=== PATIENT | female | born 1960 | race Caucasian/White ===

== ENCOUNTER 2017-11-16 14:23 | Emergency (ER) | payer BC ==
--- OUTSIDE RECORDS SUMMARY | 2017-11-16 14:25 | XMS REPORT | Clinical Summary ---
:[address] [facility] Address [address] [place] [address] Phone Care Team Providers Name Role Phone Unavailable Primary Care Provider Unavailable Allergies Active Allergy Reactions Severity Noted Date Comments Fluconazole Itching, Rash High 03/04/2017 Not as bad with intravenous but worse with oral per her pt MARLONA Kiara Harmony [phone] Diphenhydramine Hcl Other (See Comments) 03/02/2017 Hallucinations. Meperidine Other (See Comments) 03/04/2017 Pt becomes aggressive Morphine 12/29/2015 Aggressiveness Severe vomiting Tramadol Other (See Comments) 01/16/2017 Paranoia; nightmares Current Medications Prescription Sig. Disp. Refills Start End Date Status Date metaxalone Take 800 mg by Active (SKELAXIN) 800 MG mouth every 6 tablet (six) hours as needed for Muscle spasms. L. ACIDOPHILUS/DIG Take 2 tablets by Active ENZ CMB 5 mouth daily. (PROBIOTIC-DIGESTIV E ENZYMES ORAL) VALERIAN ORAL Take 470 mg by Active mouth as needed . Missing or every 1 (one) Active Non-Formulary hour Kidney Chi Medication otc vitamin . OREGANO OIL ORAL Take by mouth Active daily. KELP ORAL Take by mouth Active daily. GRAPEFRUIT FORMULA Take by mouth Active ORAL daily. COQ10, UBIQUINOL, Take by mouth Active ORAL daily. carica papaya Take by mouth as Active (PAPAYA ENZYME) Tab needed. ENZYMES,DIGESTIVE Take by mouth Active (DIGESTIVE ENZYMES daily. ORAL) vitamin E 400 UNIT Take 400 Units by Active capsule mouth daily. CALCIUM/MAGNESIUM/V Take by mouth Active IT B COMP daily. (CALCIUM-MAGNESIUM- B COMPLEX ORAL) GARLIC ORAL Take by mouth Active daily. oxybutynin Take 1 tablet (5 90 tablet 3 06/15/20 Active (DITROPAN) 5 MG mg total) by 7 18 tablet mouth every 8 (eight) hours. ALPRAZolam (XANAX) Take 0.5 mg by 01/17/20 Discontinued 0.5 MG tablet mouth every night 17 as needed for Anxiety. Missing or LISINOPRIL ONCE 01/17/20 Discontinued Non-Formulary DAILY PATIENT 17 Medication DOES NOT KNOW DOSAGE. . metFORMIN Take 500 mg by 06/09/20 Discontinued (GLUCOPHAGE) 500 MG mouth 2 (two) 17 tablet times daily with breakfast and dinner. Missing or GEMFIBROZIL TWICE 01/17/20 Discontinued Non-Formulary DAILY . 17 Medication lisinopril Take 20 mg by 06/09/20 Discontinued (PRINIVIL,ZESTRIL) mouth daily. 17 20 MG tablet ICOSAPENT ETHYL Take 500 mg by 03/10/20 Discontinued (VASCEPA ORAL) mouth 2 (two) 17 times daily Takes 4 caps . diazePAM (VALIUM) 5 Take 5 mg by 06/09/20 Discontinued MG tablet mouth 2 (two) 17 times daily. ciprofloxacin HCl Take 500 mg by 03/10/20 Discontinued (CIPRO) 500 MG mouth 2 (two) 17 tablet times daily. acetaminophen-codei Take 1 tablet by 06/09/20 Discontinued ne (TYLENOL #3) mouth every 4 17 300-30 mg per (four) hours as tablet needed for Pain. ciprofloxacin HCl Take 1 tablet 10 tablet 0 01/31/20 (CIPRO) 500 MG (500 mg total) by 7 17 tablet mouth 2 (two) times daily for 5 days. acetaminophen-codei Take 1 tablet by 30 tablet 0 02/05/20 ne (TYLENOL #4) mouth every 4 7 17 300-60 mg per (four) hours as tablet needed for Pain for up to 10 days. Max Daily Amount: 6 tablets docusate sodium Take 1 capsule 20 capsule 0 02/05/20 (COLACE) 100 MG (100 mg total) by 7 17 capsule mouth 2 (two) times daily as needed for up to 10 days. fluconazole Take 2 tablets 28 tablet 0 02/16/20 (DIFLUCAN) 200 MG (400 mg total) by 7 17 tablet mouth daily for 14 days. amLODIPine Take 1 tablet (10 30 tablet 11 03/10/20 Discontinued (NORVASC) 10 MG mg total) by 7 17 tablet mouth daily. HYDROcodone-acetami Take 1 tablet by 30 tablet 0 03/20/20 nophen (NORCO mouth every 6 7 17 10-325) 10-325 mg (six) hours as per tablet needed for up to 10 days. Max Daily Amount: 4 tablets hydrOXYzine Take 1 tablet (25 30 tablet 0 03/10/20 Discontinued (ATARAX) 25 MG mg total) by 7 17 tablet mouth 3 (three) times daily as needed for Itching for up to 10 days. piperacillin-tazoba Inject 3.375 g 0 03/10/20 Discontinued ctam (ZOSYN) MBP intravenously 7 17 3.375 g in 100 mL every 6 (six) NS hours for 4 days. piperacillin-tazoba Inject 3.375 g 0 03/17/20 ctam (ZOSYN) MBP intravenously 7 17 3.375 g in 100 mL every 6 (six) NS hours for 7 days. phenazopyridine Take 1 tablet 10 tablet 0 03/10/20 Discontinued (PYRIDIUM) 200 MG (200 mg total) by 17 tablet mouth 2 (two) times daily for 5 days. amLODIPine Take 1 tablet (10 30 tablet 11 06/09/20 Discontinued (NORVASC) 10 MG mg total) by 7 17 tablet mouth daily. hydrOXYzine Take 1 tablet (25 30 tablet 0 03/20/20 (ATARAX) 25 MG mg total) by 7 17 tablet mouth 3 (three) times daily as needed for Itching for up to 10 days. phenazopyridine Take 1 tablet 10 tablet 0 03/15/20 (PYRIDIUM) 200 MG (200 mg total) by 7 17 tablet mouth 2 (two) times daily for 5 days. VITAMIN E ACETATE Take by mouth 06/09/20 Discontinued ORAL daily. 17 docusate sodium Take 1 capsule 20 capsule 0 06/26/20 Discontinued (COLACE) 100 MG (100 mg total) by 7 17 capsule mouth 2 (two) times daily for 10 days. acetaminophen-codei Take 1 tablet by 30 tablet 0 06/26/20 Discontinued ne (TYLENOL #3) mouth every 4 7 17 300-30 mg per (four) hours as tablet needed for up to 10 days. Max Daily Amount: 6 tablets docusate sodium Take 1 capsule 60 capsule 0 07/26/20 (COLACE) 100 MG (100 mg total) by 7 17 capsule mouth 2 (two) times daily for 30 days. acetaminophen-codei Take 1 tablet by 20 tablet 0 07/03/20 ne (TYLENOL #3) mouth every 4 7 17 300-30 mg per (four) hours as tablet needed for up to 7 days. Max Daily Amount: 6 tablets fluconazole Take 1 tablet 14 tablet 0 07/11/20 (DIFLUCAN) 200 MG (200 mg total) by 7 17 tablet mouth daily for 14 days. hydrOXYzine Take 1 tablet (25 30 tablet 0 07/10/20 (ATARAX) 25 MG mg total) by 7 17 tablet mouth 3 (three) times daily as needed for Itching or Anxiety for up to 14 days. 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/04/2017 Hypertension, essential 03/03/2017 Controlled type 2 diabetes mellitus without complication, without 03/03/2017 long-term current use of insulin ([facility]) Slow transit constipation 03/03/2017 Occluded PICC line, initial encounter ([facility]) 03/03/2017 Pyelonephritis 03/02/2017 Acute postoperative respiratory insufficiency 01/24/2017 UPJ (ureteropelvic junction) obstruction 01/23/2017 Flank pain 01/28/2016 Hydronephrosis, left 12/29/2015 UPJ obstruction, acquired 12/29/2015 Pelvic mass 12/29/2015 Morbid obesity (HCC) 12/29/2015 Fatty liver 12/29/2015 Tobacco use 12/29/2015 Encounters Date Type Specialty Care Team Description 06/17/[address] [facility] Internal Leland Shakir Complicated UTI - Encounter Medicine MD Judah (urinary tract 06/26/2017 Jag Ritchie infection) (Primary MD Chava Dx);Right flank Blanquita, Dustin pain;S/P urological MD Bar surgery;Flank pain;Constipation, unspecified constipation type;Morbid obesity ([facility]);Fever, unspecified fever cause;Gram-positive bacteremia;Beronica infection 06/13/[address] [facility] Internal Jag Ritchie - Encounter Medicine MD Chava 06/15/2017 06/13/2017 Procedure Pass 06/13/2017 Surgery Jag Ritchie ROBOTIC MD Chava LAPAROSCOPY,PYELOPL ASTY 06/09/2017 Hospital Pre-Admission Testing Encounter 06/09/2017 Orders Only Pre-Admission Testing Catherine Bean 05/09/2017 Procedure Pass 05/08/2017 Anesthesia Event Mirian Cobb MD 05/02/2017 [facility] Gastroenterology Susan Ivory Encounter MD Melany 05/02/2017 Procedure Pass Gastroenterology 05/02/2017 Surgery Gastroenterology Susan Ivory COLONOSCOPY,POLYPEC MD Melany TON 04/28/2017 Orders Only Pre-Admission Testing Catherine Bean 03/10/2017 Procedure Pass 03/10/2017 Surgery Jag Ritchie CYSTOSCOPY,RETROGRA MD Chava KAREEM 03/09/2017 Anesthesia Event Ramirez Mendoza MD 03/08/2017 Procedure Pass Gastroenterology 03/07/2017 Anesthesia Event Gastroenterology Mirian Cobb MD 03/02/[address] [facility] Internal Zindani, Pyelonephritis;Dive - Encounter Medicine MD Eula rticulitis of large 03/10/2017 Sandip, intestine without Maria Luz Pak, perforation or MD abscess without Darby, Zoraida-Mine, bleeding;Controlled MD type 2 diabetes Leslie Lubin MD mellitus without complication, without long-term current use of insulin ([facility]);Hydronephrosi s, left;Hypertension, essential;Occluded PICC line, initial encounter ([facility]);Slow transit constipation;Coloni c fistula;Morbid obesity, unspecified obesity type ([facility]);Candiduria;Co litis 02/01/2017 Emergency Emergency Medicine Andre Kat Flank pain (Primary MD José Antonio Dx);Candidal UTI (urinary tract infection) 01/23/2017 Hospital [facility] Internal Jag Ritchie Acute pulmonary - Encounter Medicine MD Chava insufficiency 01/25/2017 following nonthoracic surgery (HCC);Leukocytosis, unspecified type 01/23/2017 Anesthesia Event Homar Paulina MonroeSOFIA 01/23/2017 Procedure Pass 01/23/2017 Surgery Jag Ritchie CYSTOSCOPY,INSERTIO MD Chava N URETERAL STENTS 01/16/2017 Hospital Jag Ritchie MD 01/16/2017 [facility] Cardiology Jag Ritchie MD 01/16/2017 Hospital Pre-Admission Testing Jag Ritchie Fatty liver Encounter MD Chava 01/16/2017 Outside Orders Jag Ritchie MD 01/16/2017 Orders Only General Internal Medicine 12/22/2016 Orders Only Pre-Admission Testing Catherine Bean 12/22/2016 Orders Only Pre-Admission Testing Catherine Bean after 11/15/2016 Family History Medical History Relation Name Comments Heart disease Brother Cancer Maternal Grandfather Heart disease Maternal Uncle Heart disease Mother Relation Name Status Comments Brother Maternal Grandfather Maternal Uncle Mother Social History Tobacco Use Types Packs/Day Years Used Date Current Every Day Smoker 1 40 Smokeless Tobacco: Never Used Tobacco Cessation: Ready to Quit: Yes; Counseling Given: Yes Alcohol Use Drinks/Week oz/Week Comments No Sex Assigned at Date Recorded Not on file Last Filed Vital Signs Vital Sign Reading Time Taken Blood Pressure 168/81 06/26/2017 12:42 PM GETTER OPERATOR Pulse 72 06/26/2017 12:42 PM GETTER OPERATOR Temperature 36.2 C (97.1 F) 06/26/2017 12:42 PM GETTER OPERATOR Respiratory Rate 18 06/26/2017 12:42 PM GETTER OPERATOR Oxygen Saturation 96% 06/26/2017 12:42 PM GETTER OPERATOR Inhaled Oxygen Concentration - - Weight 121.1 kg (267 lb) 06/17/2017 6:57 PM CDT Height 170.2 cm (5' 7") 06/17/2017 11:00 PM CDT Body Mass Index 41.82 06/17/2017 6:57 PM CDT Plan of Treatment Not on file Implants Implanted Type Area Client Account Assistant Device Expiration Model / Identifier Date Serial / Lot Set Stent Injection 6x28cm 185-615 - [id number] Stents-Pe Left: BOSTON [id number] / Implanted: Qty: 1 on 12/31/2015 by Jag Ritchie MD ripheral [employer] :ONCOLOGY / [id number] Stent Uret Cntour Inj [id number] - [id number] Uro Stent Left: BOSTON 11/24/2017 [id number] / Implanted: Qty: 1 on 09/06/2016 by Jag Ritchie MD [employer]:UROLOGY /GYNE / COLOGY [id number] Stent Uret Cntour Inj [id number] - [id number] Uro Stent Left: BOSTON 06/13/2018 [id number] / Implanted: Qty: 1 on 01/23/2017 by Jag Ritchie MD Ureter SCI:UROLOGY /GYNE / COLOGY [id number] Stent Uret Cntour Inj [id number] - [id number] Uro Stent Left: BOSTON 10/23/2017 [id number] / Implanted: Qty: 1 on 03/10/2017 by Jag Ritchie MD Ureter SCI:UROLOGY /GYNE / COLOGY [id number] Set Stent Injection 6x28cm [id number] - [id number] Uro Stent Right: BOSTON [id number] / Implanted: Qty: 1 on 06/13/2017 by Jag Ritchie MD [employer]: ONCOLOGY / [id number] Procedures Procedure Name Priority Date/Time Associated Diagnosis Comments PROCEDURE W/ DAVINCI 06/13/2017 12:00 PM Other ureteric CDT obstruction Special Needs (REQ 12) CYSTOSCOPY,INSERTION URETERAL 06/13/2017 12:00 PM CDT Other ureteric STENTS obstruction Special Needs (REQ 12) ROBOTIC LAPAROSCOPY,PYELOPLASTY 06/13/2017 12:00 PM CDT Other ureteric obstruction Special Needs (REQ 12) COLONOSCOPY,POLYPECTOMY 05/02/2017 10:30 AM Diverticulitis large CDT intestine w/o perforation or abscess w/o bleeding CYSTOSCOPY,INSERTION URETERAL 03/10/2017 11:30 AM Ureteropelvic junction STENTS CDT obstruction CYSTOSCOPY,URETEROSCOPY 03/10/2017 11:30 AM Ureteropelvic junction CDT obstruction CYSTOSCOPY,RETROGRADES 03/10/2017 11:30 AM Ureteropelvic junction CDT obstruction PROCEDURE W/ DAVINCI 01/23/2017 1:00 PM UPJ (ureteropelvic CDT junction) obstruction LAPAROSCOPY,PYELOPLASTY 01/23/2017 1:00 PM UPJ (ureteropelvic CDT junction) obstruction CYSTOSCOPY,INSERTION URETERAL 01/23/2017 1:00 PM UPJ (ureteropelvic STENTS CDT junction) obstruction after 11/15/2016 Results POC-Glucose meter (06/26/2017 1:06 PM)Only the most recent of77 resultswithin the time period is included. Component Value Ref Range POC-Glucose Meter 196 (H)Comment: TESTED AT [address] 70 - 110 mg/[place] [id number] Specimen Performing Laboratory Blood [address] [address] CBC with platelet count + automated diff (06/26/2017 4:45 AM)Only the most recent of21 resultswithin the time period is included. Component Value Ref Range WBC 12.9 (H) 3.5 - 10.5 K/L RBC 3.78 (L) 3.93 - 5.22 M/L Hemoglobin 10.6 (L) 11.2 - 15.7 GM/DL Hematocrit 32.7 (L) 34.1 - 44.9 % MCV 86.5 79.4 - 94.8 fL MCH 28.0 25.6 - 32.2 pg MCHC 32.4 32.2 - 35.5 GM/DL RDW 14.8 (H) 11.7 - 14.4 % Platelets 348 150 - 450 K/CU MM MPV 9.1 (L) 9.4 - 12.3 fL nRBC 0 0 - 0 /100 WBC % Neutros 57 % % Lymphs 19 % % Monos 13 % % Eos 4 % % Baso 1 % # Neutros 7.34 (H) 1.56 - 6.13 K/L # Lymphs 2.48 1.18 - 3.74 K/L # Monos 1.68 (H) 0.24 - 0.36 K/L # Eos 0.56 (H) 0.04 - 0.36 K/L # Baso 0.08 0.01 - 0.08 K/L Immature Granulocytes-Relative 6 (H) 0 - 1 % Specimen Performing Laboratory Blood [address] [address] CBC with platelet count + automated diff (06/26/2017 4:45 AM)Only the most recent of21 resultswithin the time period is included. Specimen Performing Laboratory Blood Narrative The following orders were created for panel order CBC with platelet count + automated diff. Procedure Abnormality Status --------- ------ CBC with platelet count ...[[id number]]AbnormalFinal result Please view results for these tests on the individual orders. Phosphorus (06/26/2017 4:45 AM)Only the most recent of12 resultswithin the time period is included. Component Value Ref Range Phosphorus 3.3 2.3 - 4.7 mg/dL Specimen Performing Laboratory Blood [address] [address] Magnesium (06/26/2017 4:45 AM)Only the most recent of12 resultswithin the time period is included. Component Value Ref Range Magnesium 1.4 (L) 1.6 - 2.6 mg/dL Specimen Performing Laboratory Blood [address] [address] Basic Metabolic Panel (06/26/2017 4:45 AM)Only the most recent of24 resultswithin the time period is included. Component Value Ref Range Sodium 138 136 - 145 meq/L Potassium 3.6 3.5 - 5.1 meq/L Chloride 105 98 - 107 meq/L CO2 23 22 - 29 meq/L BUN 17 7 - 21 mg/dL Creatinine 1.55 (H) 0.57 - 1.25 mg/dL Glucose 158 (H) 70 - 105 mg/dL Calcium 8.5 8.4 - 10.2 mg/dL EGFR 35Comment: ESTIMATED GFR IS NOT ACCURATE mL/min/1.73 sq m CREATININE CLEARANCE IN PREDICTING GLOMERULAR FILTRATION RATE. ESTIMATED GFR IS NOT APPLICABLE FOR DIALYSIS PATIENTS. Specimen Performing Laboratory Blood [address] [address] Manual Differential (06/25/2017 5:43 AM) Component Value Ref Range % Neutros (manual) 60 % % Lymphs (manual) 21 % % Monos (manual) 13 % % Eos (manual) 1 % % Baso (manual) 0 % % Metamyelo (manual) 2 (H) 0 - 0 % % Myelo (manual) 3 (H) 0 - 0 % # Neutros (manual) 6.96 1.80 - 8.00 K/L # Lymphs (manual) 2.44 1.48 - 4.50 K/L # Monos (manual) 1.51 (H) 0.00 - 1.30 K/L # Eos (manual) 0.12 0.00 - 0.50 K/L # Baso (manual) 0.00 0.00 - 0.20 K/L # Metamyelo (manual) 0.23 (H) 0.00 - 0.00 K/L # Myelo (manual) 0.35 (H) 0.00 - 0.00 K/L Total Counted 100 WBC Morphology Normal Platelet Morphology Normal RBC Morphology Normal Specimen Performing Laboratory Blood [address] [address] Blood culture (06/24/2017 3:08 PM)Only the most recent of8 resultswithin the time period is included. Component Value Ref Range Result No growth in 5 days Specimen Performing Laboratory Blood - Arm, Right [address] [address] Urine culture (06/24/2017 11:14 AM)Only the most recent of7 resultswithin the time period is included. Component Value Ref Range Result Result >100,000 col/mL Beronica albicans (A) Specimen Performing Laboratory Urine - Urine, Voided [address] [address] Narrative <10,000 col/mL skin mckenna Urinalysis w/Microscopic (06/24/2017 11:13 AM)Only the most recent of8 resultswithin the time period is included. Component Value Ref Range Color, UA Yellow Clarity, UA Hazy Specific [place], UA 1.007 1.001 - 1.035 pH, UA 6.5 5.0 - 8.0 Protein, UA 30 mg/dL (A) Negative Glucose, UA Negative Negative Ketones, UA Negative Negative Bilirubin, UA Negative Negative Blood, UA Large (A) Negative Nitrite, UA Negative Negative Leukocytes, UA Large (A) Negative Urobilinogen, UA 0.2 0.2 - 1.0 mg/dL RBC, UA 26 /HPF WBC, UA >180 /HPF Squam Epithel, UA 17 /HPF Specimen Source Urine, Voided Specimen Performing Laboratory Urine - Urine, Voided [facility] [address] [address] [address] abdomen/pelvis without iv contrast (06/22/2017 7:25 PM)Only the most recent of2 resultswithin the time period is included. Specimen Performing Laboratory GE RIS Narrative FINAL REPORT CT of the abdomen and pelvis, without contrast. History: Abdominal pain, fever, concern for urine leak. Comparison: 06/17/2017. Technique: Multidetector CT scanning of the abdomen and pelvis was performed from the level of the lung bases to the inferior pubic ramus, without IV or oral contrast.This exam was performed according to our departmental dose-optimization program which includes automated exposure control, adjustment of the mA and/or kV according to patient size and/or use of iterative reconstruction technique. Discussion: Examination is limited without contrast. Lung bases: There is right basilar atelectasis. Abdomen: Mild right and moderate left hydronephrosis are unchanged. Right internal double-J ureteral stent is again seen. A new 4.5 x 4.0 x 5 cm fluid collection is seen anterior to the proximal right ureter and medial to the right kidney. Diffuse low-density of the liver is noted. The gallbladder, biliary tree, spleen, pancreas, and adrenal glands are unremarkable.The abdominal aorta is within normal limits. There is no bowel dilatation. Diverticula are present within the distal colon without evidence of adjacent inflammation. There is no evidence of adenopathy or free fluid.Moderate subcutaneous emphysema is again seen, grossly unchanged. Pelvis: The bladder is unremarkable. The uterus and adnexa are not visualized. There is no evidence of free fluid or adenopathy. Bones: Degenerative changes are present throughout the lumbar spine without evidence of lytic or sclerotic lesion. IMPRESSION: Interval formation of a fluid collection adjacent to the proximal right ureter consistent with a small urinoma. Otherwise no significant change. Signed: Casey Bowers MD Report Verified Date/Time:06/22/2017 20:36:43 Reading Location: [facility] [id number] Consult Reading Room Procedure Note Interface, External Ris In - 06/22/2017 8:38 PM GETTER OPERATOR FINAL REPORT CT of the abdomen and pelvis, without contrast. History: Abdominal pain, fever, concern for urine leak. Comparison: 06/17/2017. Technique: Multidetector CT scanning of the abdomen and pelvis was performed from the level of the lung bases to the inferior pubic ramus, without IV or oral contrast. This exam was performed according to our departmental dose-optimization program which includes automated exposure control, adjustment of the mA and/or kV according to patient size and/or use of iterative reconstruction technique. Discussion: Examination is limited without contrast. Lung bases: There is right basilar atelectasis. Abdomen: Mild right and moderate left hydronephrosis are unchanged. Right internal double-J ureteral stent is again seen. A new 4.5 x 4.0 x 5 cm fluid collection is seen anterior to the proximal right ureter and medial to the right kidney. Diffuse low-density of the liver is noted. The gallbladder, biliary tree, spleen, pancreas, and adrenal glands are unremarkable. The abdominal aorta is within normal limits. There is no bowel dilatation. Diverticula are present within the distal colon without evidence of adjacent inflammation. There is no evidence of adenopathy or free fluid. Moderate subcutaneous emphysema is again seen, grossly unchanged. Pelvis: The bladder is unremarkable. The uterus and adnexa are not visualized. There is no evidence of free fluid or adenopathy. Bones: Degenerative changes are present throughout the lumbar spine without evidence of lytic or sclerotic lesion. IMPRESSION: Interval formation of a fluid collection adjacent to the proximal right ureter consistent with a small urinoma. Otherwise no significant change. Signed: Casey Bowers MD Report Verified Date/Time: 06/22/2017 20:36:43 Reading Location: [facility] B1 C013W Consult Reading Room (06/22/2017 3:06 PM) Component Value Ref Range Scan Result Specimen Performing Laboratory Blood [facility] [address] [address] Narrative Result comments: Coagulase Negative Staphylococcus Species (CoNS) DETECTED, Methicillin Resistant First line therapy: Vancomycin Coagulase Negative Staphylococcus (CoNS) DETECTED mecA DETECTED Possible contamination.The likelihood of pathogenicity is increased if the organism is observed in multiple blood cultures obtained from separate venipunctures. Other organisms and resistance markers not contained in this PCR panel cannot be excluded and follow-up of traditional culture results is required. This sample was tested at the [facility] Clinical Microbiology Laboratory using the LastlineArray Blood Culture ID Panel. This test is FDA cleared for in vitro diagnostic use and has been verified and approved by the [facility] Clinical Microbiolog[facility] for clinical use. Reference Range: Not Detected PERMANENT LAB REPORT - SCAN (06/19/2017 3:11 PM)Only the most recent of2 resultswithin the time period is included.Vancomycin level, trough (06/19/2017 1:30 PM) Component Value Ref Range Vancomycin Tr 9.0 (L) 10.0 - 20.0 ug/mL Specimen Performing Laboratory Blood - Arm, [place] [address] Narrative Please hold next vanc dose until vanc trough results. XR chest 2 views (06/19/2017 9:50 AM)Only the most recent of2 resultswithin the time period is included. Specimen Performing Laboratory GE RIS Narrative FINAL REPORT Chest x-ray, PA and lateral views Clinical History: fever Comparison:March 10, 2017 Findings: Cardiac silhouette is normal. Aorta appears slightly tortuous/ectatic. Question mild vascular congestion and interstitial edema. Slight blunting of the posterior costophrenic angles could reflect trace fluid. There are a few small foci of opacities in the right lung. No pneumothorax. Osseous structures demonstrate mild degenerative changes. Impression: Question mild vascular congestion and interstitial edema. A few small foci of nonspecific opacities in the right lung. Suggest radiographic follow-up. Signed: Yulisa Monson MD Report Verified Date/Time:06/19/2017 10:31:11 Reading Location: [facility] Radiology Reading Room Procedure Note Interface, External Ris In - 06/19/2017 4:02 PM GETTER OPERATOR FINAL REPORT Chest x-ray, PA and lateral views Clinical History: fever Comparison: March 10, 2017 Findings: Cardiac silhouette is normal. Aorta appears slightly tortuous/ectatic. Question mild vascular congestion and interstitial edema. Slight blunting of the posterior costophrenic angles could reflect trace fluid. There are a few small foci of opacities in the right lung. No pneumothorax. Osseous structures demonstrate mild degenerative changes. Impression: Question mild vascular congestion and interstitial edema. A few small foci of nonspecific opacities in the right lung. Suggest radiographic follow-up. Signed: Yulisa Monson MD Report Verified Date/Time: 06/19/2017 10:31:11 Reading Location: [facility] Radiology Reading Room urinalysis dipstick (06/17/2017 8:46 PM) Component Value Ref Range Glucose Urine, POC Negative Negative Bilirubin Urine, POC Negative Negative Ketones Urine, POC Negative Negative Specific [place] Urine, POC 1.020 SG Ratio 1.005 SG Ratio, 1.010 SG Ratio, 1.015 SG Ratio, 1.020 SG Ratio, 1.025 SG Ratio, 1.030 SG Ratio Blood Urine, POC Large (A) Negative pH Urine, POC 7.0 pH units 5.0 pH units, 6.0 pH units, 6.5 pH units, 7.0 pH units, 7.5 pH units, 8.0 pH units Protein Urine, POC 300 mg/dL (A) Negative Urobilinogen Urine, POC 0.2 mg/dL 0.2 mg/dL, 1 mg/dL Nitrite Urine, POC Negative Negative Leukocyte Esterase Urine, POC Large (A) Negative CBC (Hemogram only) (06/17/2017 7:12 PM)Only the most recent of2 resultswithin the time period is included. Component Value Ref Range WBC 16.5 (H) 4.0 - 10.0 K/L RBC 4.75 4.00 - 5.00 M/L Hemoglobin 13.6 12.0 - 15.0 GM/DL Hematocrit 40.9 36.0 - 45.0 % MCV 86.1 82.0 - 99.0 fL MCH 28.6 27.0 - 33.0 pg MCHC 33.3 32.0 - 36.0 GM/DL RDW Comment: TEST NOT PERFORMED 10.3 - 14.2 % Platelets 321 150 - 430 K/CU MM Specimen Performing Laboratory Blood - Arm, Left [facility] [address] [place] [address] RHYTHM STRIP - SCAN (06/16/2017 1:12 PM)Only the most recent of3 resultswithin the time period is included.TRANSFUSION SERVICE REPORT - SCAN (06/14/2017 5:46 PM)Only the most recent of2 resultswithin the time period is included.Hemoglobin and hematocrit - in AM (06/14/2017 5:57 AM)Only the most recent of2 resultswithin the time period is included. Component Value Ref Range Hemoglobin 12.3 11.2 - 15.7 GM/DL Hematocrit 38.8 34.1 - 44.9 % Specimen Performing Laboratory Blood [address] [address] Tissue Exam (06/13/2017 4:15 PM)Only the most recent of3 resultswithin the time period is included. Component Value Ref Range Case Report Surgical Pathology Report Case: [id number] Authorizing Provider:Jag Ritchie MDCollected: 06/13/2017 1615 Ordering Location: [facility] PERI[facility] Received: 06/14/2017 0753 SERVICES Pathologist: Aquilino Diaz MD Specimen:Soft Tissue, Other, right upj segment DIAGNOSIS RENAL PELVIS, RIGHT URETEROPELVIC JUNCTION, BIOPSY: - HAPHAZARD ARRANGEMENT OF SMOOTH MUSCLE BUNDLES WITH JENNIFER-MUSCULAR FIBROSIS , CONSISTENT WITH URETEROPELVIC JUNCTION OBSTRUCTION - NEGATIVE FOR DYSPLASIA OR MALIGNANCY Signing Pathologist Direct Phone Line: [phone] CPT Code(s) 94515 CLINICAL HISTORY Ureteral obstruction SPECIMEN SOURCE Right UPJ segment GROSS DESCRIPTION Received fresh labeled "right UPJ segment" are two irregular pink-camacho to mary-white rubbery fragments of soft tissue measuring 1.5 x 1.0 x 0.2 cm in aggregate. Sectioning reveals no discrete masses. The specimen is entirely submitted in cassette A1. DB/pl MICROSCOPIC DESCRIPTION Performed. Specimen Performing Laboratory Tissue - Soft Tissue, Other [address] [address] Type and screen, automated (06/13/2017 10:13 AM)Only the most recent of3 resultswithin the time period is included. Component Value Ref Range ABO/RH AUTOMATED (BEAKER) O NEGATIVE Ab Scrn NEGATIVE Specimen Performing Laboratory Blood [address] [address] REPORT OF PROCEDURE - ENDOSCOPY URL (05/02/2017 12:15 PM)aPTT (05/02/2017 11:00 AM)Only the most recent of2 resultswithin the time period is included. Component Value Ref Range PTT 35.7 22.5 - 36.0 seconds Specimen Performing Laboratory Blood [address] [address] Prothrombin time/INR (05/02/2017 11:00 AM)Only the most recent of2 resultswithin the time period is included. Component Value Ref Range Protime 13.6 11.7 - 14.7 seconds INR 1.1 <=5.9 Specimen Performing Laboratory Blood [address] [address] Narrative RECOMMENDED COUMADIN/WARFARIN INR THERAPY RANGES STANDARD DOSE: 2.0 - 3.0 Includes: PROPHYLAXIS for venous thrombosis, systemic embolization; TREATMENT for venous thrombosis and/or pulmonary embolus. HIGH RISK: Target INR is 2.5-3.5 for patients with mechanical heart valves. FL wool fleece grader in or 30 minute increments (03/10/2017 1:00 PM) Specimen Performing Laboratory GE RIS Narrative FINAL REPORT INDICATION: Kidney stones COMPARISON: None available. IMPRESSION: 179 fluoroscopic images obtained during a surgical procedure performed by another physician (NOT the undersigned radiologist) were provided for postprocedural interpretation. Intraoperative consultation with the radiologist was not requested. There is a nonspecific filling defect in the left renal collecting system. Injected contrast opacifies the left colon suggesting fistula. There is placement of a left nephroureteral stent. There is prominence of the right renal pelvis without significant ureteral dilatation. Fluoroscopy was not performed by the undersigned radiologist. Provided fluoroscopy time: 2.5 minutes Signed: Georgie Senior MD Report Verified Date/Time:03/10/2017 15:25:57 Reading Location: [facility] C0[facility] Consult Reading Room Procedure Note Interface, External Ris In - 03/10/2017 3:28 PM CDT FINAL REPORT INDICATION: Kidney stones COMPARISON: None available. IMPRESSION: 179 fluoroscopic images obtained during a surgical procedure performed by another physician (NOT the undersigned radiologist) were provided for postprocedural interpretation. Intraoperative consultation with the radiologist was not requested. There is a nonspecific filling defect in the left renal collecting system. Injected contrast opacifies the left colon suggesting fistula. There is placement of a left nephroureteral stent. There is prominence of the right renal pelvis without significant ureteral dilatation. Fluoroscopy was not performed by the undersigned radiologist. Provided fluoroscopy time: 2.5 minutes Signed: Georgie Senior MD Report Verified Date/Time: 03/10/2017 15:25:57 Reading Location: [address] Consult Reading Room chest 1 view portable / bedside (03/10/2017 9:22 AM)Only the most recent of3 resultswithin the time period is included. Specimen Performing Laboratory GE RIS Narrative FINAL REPORT Chest one view INDICATION: PICC line. COMPARISON: 01/24/2017 IMPRESSION: Two frontal images of the chest were provided. A right PICC line extends to the SVC. There is no focal consolidation, vascular congestion, pleural effusion, or pneumothorax. Heart size is within normal limits. Mild aortic tortuosity is noted. The bones appear intact. Signed: Georgie Senior MD Report Verified Date/Time:03/10/2017 10:19:30 Reading Location: [facility] Reading Room Procedure Note Interface, External Ris In - 03/14/2017 4:42 PM CDT FINAL REPORT Chest one view INDICATION: PICC line. COMPARISON: 01/24/2017 IMPRESSION: Two frontal images of the chest were provided. A right PICC line extends to the SVC. There is no focal consolidation, vascular congestion, pleural effusion, or pneumothorax. Heart size is within normal limits. Mild aortic tortuosity is noted. The bones appear intact. Signed: Georgie Senoir MD Report Verified Date/Time: 03/10/2017 10:19:30 Reading Location: [facility] Reading Room Rapid drug screen, urine (03/04/2017 4:50 PM) Component Value Ref Range Barbiturate Screen Negative Negative Benzodiazepine Screen Positive (A) Negative Cocaine (Metab.) Screen Negative Negative Methadone Screen Negative Negative Opiate Screen Positive (A) Negative Cannabinoid Screen Negative Negative Amph/Methamph Screen Negative Negative Phencyclidine Screen Negative Negative Oxycodone Screen Negative Negative Specimen Performing Laboratory Urine - Urine, Voided [facility] [address] [address] Narrative DRUGCUTOFF CONC. Cocaine 300 ng/mL Inlpsjtjdmr41 ng/mL Izmghtfdebbvsy746 ng/mL Barbiturate 200 ng/mL Ivbgslpczvhda43 ng/mL Svrlgp395 ng/mL Methadone 300 ng/mL Amphetamine/ 1000 ng/mL Methamphetamine Oxycodone 300 ng/mL This assay provides an unconfirmed qualitative test result for the clinical management of patients in emergency situations. Chain of custody not maintained. Some zfma-htc-tzbuhwo medications, as well as adulterants, may cause inaccurate results. Clinical correlation should be applied. A more comprehensive drug screen or confirmation of a detected drug may be performed upon request. CT abdomen & pelvis - hematuria evaluation without/with iv contrast (2016 12:01 PM) Specimen Performing Laboratory [employer] Narrative FINAL REPORT CT scan of the abdomen and pelvis. CLINICAL HISTORY: Postsurgical fever. Question fistula to colon. COMPARISON STUDY: CT scan dated February 01, 2017. TECHNIQUE: Contiguous helical slices were acquired through the abdomen and pelvis both pre and post administration of intravenous contrast in a delayed fashion. This exam was performed according to our department dose optimization program which includes automated exposure control, adjustment of the mA and/or kV according to the patient's size and/or use of iterative reconstruction technique. FINDINGS: The lung bases are clear. The liver is fatty in attenuation with some sparing in the gallbladder. A tiny low-attenuation lesion is seen in the left lobe, most likely a tiny cyst. Some vicarious attrition of contrast in the gallbladder is seen. No biliary dilatation is noted. The spleen, pancreas and adrenal glands are unremarkable. A right-sided extrarenal pelvis is seen. There is severe left-sided hydronephrosis with some cortical thinning and an abrupt transition at the ureteropelvic junction. Contrast is seen within the left kidney on the precontrast phase and the amount of contrast increases on the delayed phase. Perinephric stranding is seen with delayed excretion of contrast. The proximal aspect of the descending colon is tethered to the anterior aspect of the kidney with no fat plane identified. Some surgical clips are seen at this site. There is a small focus of hyperattenuation at the site where the colon is tethered to the kidney and a fistula cannot be excluded. Some stranding extends along the left retroperitoneum towards the pelvis. No dilated loops of bowel are seen to suggest obstruction. Diverticulosis is seen. The aorta is normal in caliber. The uterus has been resected. Atherosclerosis is seen. Small para-aortic lymph nodes are present. Bone windows demonstrate degenerative changes. IMPRESSION: 1. Fatty liver with some sparing near the gallbladder. A tiny low-attenuation lesion, likely a cyst is seen in the left lobe. 2. Mild splenomegaly. 3. Severe left-sided hydronephrosis status post removal of a ureteric stent. Cortical thinning is seen. Contrast is seen in the left collecting system on the precontrast phase. There is extensive left-sided perinephric and pericolonic stranding along proximal aspect of the descending colon where it is tethered to the anterior margin of the kidney. A high attenuation blush is seen on the precontrast phase between the kidney and colon and a fistula cannot be excluded. This may be the result of a diverticulitis as colonic diverticular disease is seen. 4. Status post hysterectomy. Signed: Rui Morris MD Report Verified Date/Time:03/03/2017 12:30:31 Reading Location: [facility] C013[facility] Consult Reading Room Procedure Note Interface, External Ris In - 03/03/2017 12:32 PM CDT FINAL REPORT CT scan of the abdomen and pelvis. CLINICAL HISTORY: Postsurgical fever. Question fistula to colon. COMPARISON STUDY: CT scan dated February 01, 2017. TECHNIQUE: Contiguous helical slices were acquired through the abdomen and pelvis both pre and post administration of intravenous contrast in a delayed fashion. This exam was performed according to our department dose optimization program which includes automated exposure control, adjustment of the mA and/or kV according to the patient's size and/or use of iterative reconstruction technique. FINDINGS: The lung bases are clear. The liver is fatty in attenuation with some sparing in the gallbladder. A tiny low-attenuation lesion is seen in the left lobe, most likely a tiny cyst. Some vicarious attrition of contrast in the gallbladder is seen. No biliary dilatation is noted. The spleen, pancreas and adrenal glands are unremarkable. A right-sided extrarenal pelvis is seen. There is severe left-sided hydronephrosis with some cortical thinning and an abrupt transition at the ureteropelvic junction. Contrast is seen within the left kidney on the precontrast phase and the amount of contrast increases on the delayed phase. Perinephric stranding is seen with delayed excretion of contrast. The proximal aspect of the descending colon is tethered to the anterior aspect of the kidney with no fat plane identified. Some surgical clips are seen at this site. There is a small focus of hyperattenuation at the site where the colon is tethered to the kidney and a fistula cannot be excluded. Some stranding extends along the left retroperitoneum towards the pelvis. No dilated loops of bowel are seen to suggest obstruction. Diverticulosis is seen. The aorta is normal in caliber. The uterus has been resected. Atherosclerosis is seen. Small para-aortic lymph nodes are present. Bone windows demonstrate degenerative changes. IMPRESSION: 1. Fatty liver with some sparing near the gallbladder. A tiny low-attenuation lesion, likely a cyst is seen in the left lobe. 2. Mild splenomegaly. 3. Severe left-sided hydronephrosis status post removal of a ureteric stent. Cortical thinning is seen. Contrast is seen in the left collecting system on the precontrast phase. There is extensive left-sided perinephric and pericolonic stranding along proximal aspect of the descending colon where it is tethered to the anterior margin of the kidney. A high attenuation blush is seen on the precontrast phase between the kidney and colon and a fistula cannot be excluded. This may be the result of a diverticulitis as colonic diverticular disease is seen. 4. Status post hysterectomy. Signed: Rui Morris MD Report Verified Date/Time: 03/03/2017 12:30:31 Reading Location: [facility] C013[facility] Reading Room -1 Antigen with HIV-1/2 Antibody (03/03/2017 9:32 AM) Component Value Ref Range HIV-1 Antigen with HIV 1&2 Antibody Nonreactive Nonreactive Specimen Performing Laboratory Blood - Arm, [address] [address] Hepatitis panel, acute (03/03/2017 9:32 AM) Component Value Ref Range Hep A IgM Nonreactive Nonreactive Hep B C IgM Nonreactive Nonreactive Hepatitis C Ab Nonreactive Nonreactive hepatitis B Surface Ag Nonreactive Nonreactive Specimen Performing Laboratory Blood - Arm, [address] [address] RPR (03/03/2017 9:32 AM) Component Value Ref Range RPR Nonreactive Nonreactive Specimen Performing Laboratory Blood - Arm, [address] [address] [place] renal scan with diuretic (03/02/2017 4:50 PM) Specimen Performing Laboratory GE RIS Narrative FINAL REPORT PROCEDURE: Functional RENAL SCAN with Diuretic Stimulation CPT CODE:34045 INDICATION:MAG3 renal scan PROTOCOL:10.9 mCi of Tc-99mwas injected intravenously. Renal flow images were obtained in the posterior projection, subsequent serial posterior images were obtained over 30 minutes.40 mg of furosemide was injected intravenously, ten minutes after tracer injection. FINDINGS: Kidney perfusion is asymmetric, and markedly decreased on the left. Initial renal activity is divided 32% to the left kidney and 67% to the right kidney.Subsequent images show markedly decreased tracer appears in the left and moderately delayed tracer appearancein the calyces and renal pelves.Following diuretic injection, there is markedly decreased tracer appears in the left and moderately delayed tracer washout from the renal collecting systems. Half-emptying times was unattainable the left and 27 minutes on the right. IMPRESSION: 1. Abnormal renal function. Abnormal response to diuretic stimulation in the right kidney and markedly decreased response in the left kidney. There is evidence of UPJ obstruction within the right kidney. The left renal function is too poor to adequately respond to diuretic. Signed: Red Infante MD Report Verified Date/Time:03/02/2017 17:21:59 Reading Location: [address] [place] [address] Reading Room Procedure Note Interface, External Ris In - 03/14/2017 5:56 PM CDT FINAL REPORT PROCEDURE: Functional RENAL SCAN with Diuretic Stimulation CPT CODE: [id number] INDICATION: MAG3 renal scan PROTOCOL: 10.9 mCi of Tc-99mwas injected intravenously. Renal flow images were obtained in the posterior projection, subsequent serial posterior images were obtained over 30 minutes. 40 mg of furosemide was injected intravenously, ten minutes after tracer injection. FINDINGS: Kidney perfusion is asymmetric, and markedly decreased on the left. Initial renal activity is divided 32% to the left kidney and 67% to the right kidney. Subsequent images show markedly decreased tracer appears in the left and moderately delayed tracer appearance in the calyces and renal pelves. Following diuretic injection, there is markedly decreased tracer appears in the left and moderately delayed tracer washout from the renal collecting systems. Half-emptying times was unattainable the left and 27 minutes on the right. IMPRESSION: 1. Abnormal renal function. Abnormal response to diuretic stimulation in the right kidney and markedly decreased response in the left kidney. There is evidence of UPJ obstruction within the right kidney. The left renal function is too poor to adequately respond to diuretic. Signed: Red Infante MD Report Verified Date/Time: 03/02/2017 17:21:59 Reading Location: [address] Reading Room /aPTT (03/02/2017 11:56 AM) Component Value Ref Range Protime 13.7 11.7 - 14.7 seconds INR 1.1 <=5.9 PTT 35.2 22.5 - 36.0 seconds Specimen Performing Laboratory Blood - Arm, [place] [address] Narrative RECOMMENDED COUMADIN/WARFARIN INR THERAPY RANGES STANDARD DOSE: 2.0 - 3.0 Includes: PROPHYLAXIS for venous thrombosis, systemic embolization; TREATMENT for venous thrombosis and/or pulmonary embolus. HIGH RISK: Target INR is 2.5-3.5 for patients with mechanical heart valves. Comprehensive metabolic panel (03/02/2017 11:56 AM)Only the most recent of2 resultswithin the time period is included. Component Value Ref Range Protein, Total 6.3 6.0 - 8.3 gm/dL Albumin 3.3 (L) 3.5 - 5.0 g/dL Alkaline Phosphatase 62 40 - 150 U/L Total Bilirubin 0.2 0.2 - 1.2 mg/dL Sodium 136 136 - 145 meq/L Potassium 3.9 3.5 - 5.1 meq/L Chloride 103 98 - 107 meq/L CO2 24 22 - 29 meq/L BUN 14 7 - 21 mg/dL Creatinine 0.81 0.57 - 1.25 mg/dL Glucose 111 (H) 70 - 105 mg/dL Calcium 9.2 8.4 - 10.2 mg/dL AST 19 5 - 34 U/L ALT 14 6 - 55 U/L EGFR 73Comment: ESTIMATED GFR IS NOT ACCURATE mL/min/1.73 sq m CREATININE CLEARANCE IN PREDICTING GLOMERULAR FILTRATION RATE. ESTIMATED GFR IS NOT APPLICABLE FOR DIALYSIS PATIENTS. Specimen Performing Laboratory Blood - Arm, [address] [address] [address] abdomen pelvis with IV contrast (02/01/2017 4:22 AM) Specimen Performing Laboratory imageloop RIS Narrative FINAL REPORT CT ABDOMEN AND PELVIS WITH CONTRAST CLINICAL HISTORY: FEVER post surgical COMPARISON: Outside hospital study CT dated 01/28/2016 TECHNIQUE: Multiple axial images of the abdomen and pelvis were performed after the administration of IV contrast. This exam was performed according to our departmental dose optimization program which includes automated exposure control, adjustment of the mA and/or kV according to patient size and/or use of iterative reconstruction technique. FINDINGS: The lung bases are clear. The liver is enlarged measuring 21 cm in CC direction and demonstrates findings of steatosis. A subcentimeter hypodensity near the falciform ligament is too small to further characterize but similar in size when compared to the prior study. The gallbladder is present and mostly contracted. No biliary dilatation is noted. The pancreas demonstrates fatty atrophy. The adrenals are unremarkable. The spleen is mildly enlarged in size measuring up to 13 cm in length. Several diverticula project of the colon. A 9 cm contiguous segment of wall thickening along the descending colon is identified with moderate surrounding hazy inflammatory changes and regional mildly prominent lymph nodes. Inflammatory changes extend along the anterior aspect of the left kidney. The left kidney demonstrates cortical thinning along its inferior pole. Trace amount of air is noted within a left renal calyx. No defined adjacent fluid collection is noted. The right kidney is unremarkable. No right hydronephrosis. Very small amount of pneumoperitoneum is noted along the mid abdomen, this may be related to recent surgery rather than contained perforation given no adjacent extraluminal gas near the inflamed descending colon. Subcutaneous air along the left anterolateral abdominal wall and right inferior abdominal wall are noted, possibly related to prior postsurgical changes. A left-sided ureteral stent courses from the left renal pelvis to the bladder. No left hydronephrosis. Nonspecific perinephric and proximal periureteric fat stranding. The bladder is mostly decompressed, limiting evaluation. The appendix is normal. The uterus is not visualized. No adnexal masses are noted. The abdominal aorta is normal in caliber. No aggressive osseous lesions are noted. IMPRESSION: A segment of descending colon demonstrates mild wall thickening with surrounding hazy inflammatory changes that extend to the adjacent left kidney. These findings are nonspecific and could represent postsurgical related changes with underlying diverticulitis or colitis not excluded. Very small amount of pneumoperitoneum is noted along the mid abdomen, this may be related to recent surgery rather than contained perforation given no adjacent extraluminal gas near the inflamed descending colon. A ureteral stent courses from the left renal pelvis to the bladder. No left hydronephrosis. Nonspecific left perinephric and proximal periureteric fat stranding are noted, possibly postsurgical with superimposed infection not excluded. Additional findings as above. Findings were discussed with Dr. Kat at time of dictation. Signed: Rashad Roberts MD Report Verified Date/Time:02/01/2017 04:58:28 Reading Location: [facility] C0[facility] Transitional Reading Room Procedure Note Interface, External Ris In - 02/01/2017 5:00 AM CDT FINAL REPORT CT ABDOMEN AND PELVIS WITH CONTRAST CLINICAL HISTORY: FEVER post surgical COMPARISON: Outside hospital study CT dated 01/28/2016 TECHNIQUE: Multiple axial images of the abdomen and pelvis were performed after the administration of IV contrast. This exam was performed according to our departmental dose optimization program which includes automated exposure control, adjustment of the mA and/or kV according to patient size and/or use of iterative reconstruction technique. FINDINGS: The lung bases are clear. The liver is enlarged measuring 21 cm in CC direction and demonstrates findings of steatosis. A subcentimeter hypodensity near the falciform ligament is too small to further characterize but similar in size when compared to the prior study. The gallbladder is present and mostly contracted. No biliary dilatation is noted. The pancreas demonstrates fatty atrophy. The adrenals are unremarkable. The spleen is mildly enlarged in size measuring up to 13 cm in length. Several diverticula project of the colon. A 9 cm contiguous segment of wall thickening along the descending colon is identified with moderate surrounding hazy inflammatory changes and regional mildly prominent lymph nodes. Inflammatory changes extend along the anterior aspect of the left kidney. The left kidney demonstrates cortical thinning along its inferior pole. Trace amount of air is noted within a left renal calyx. No defined adjacent fluid collection is noted. The right kidney is unremarkable. No right hydronephrosis. Very small amount of pneumoperitoneum is noted along the mid abdomen, this may be related to recent surgery rather than contained perforation given no adjacent extraluminal gas near the inflamed descending colon. Subcutaneous air along the left anterolateral abdominal wall and right inferior abdominal wall are noted, possibly related to prior postsurgical changes. A left-sided ureteral stent courses from the left renal pelvis to the bladder. No left hydronephrosis. Nonspecific perinephric and proximal periureteric fat stranding. The bladder is mostly decompressed, limiting evaluation. The appendix is normal. The uterus is not visualized. No adnexal masses are noted. The abdominal aorta is normal in caliber. No aggressive osseous lesions are noted. IMPRESSION: A segment of descending colon demonstrates mild wall thickening with surrounding hazy inflammatory changes that extend to the adjacent left kidney. These findings are nonspecific and could represent postsurgical related changes with underlying diverticulitis or colitis not excluded. Very small amount of pneumoperitoneum is noted along the mid abdomen, this may be related to recent surgery rather than contained perforation given no adjacent extraluminal gas near the inflamed descending colon. A ureteral stent courses from the left renal pelvis to the bladder. No left hydronephrosis. Nonspecific left perinephric and proximal periureteric fat stranding are noted, possibly postsurgical with superimposed infection not excluded. Additional findings as above. Findings were discussed with Dr. Kat at time of dictation. Signed: Rashad Roberts MD Report Verified Date/Time: 02/01/2017 04:58:28 Reading Location: [address] Transitional Reading Room Lipase (02/01/2017 1:49 AM) Component Value Ref Range Lipase 8 8 - 78 U/L Specimen Performing Laboratory Blood [address] [address] Amylase (02/01/2017 1:49 AM) Component Value Ref Range Amylase 21 (L) 25 - 125 U/L Specimen Performing Laboratory Blood [address] [address] Hepatic function panel (02/01/2017 1:49 AM) Component Value Ref Range Protein, Total 7.3 6.0 - 8.3 gm/dL Albumin 3.9 3.5 - 5.0 g/dL Total Bilirubin 0.4 0.2 - 1.2 mg/dL Bilirubin, Direct 0.2 0.1 - 0.5 mg/dL Alkaline Phosphatase 78 40 - 150 U/L AST 10 5 - 34 U/L ALT 16 6 - 55 U/L Specimen Performing Laboratory Blood [address] [address] Blood gas, arterial (01/24/2017 3:15 AM)Only the most recent of6 resultswithin the time period is included. Component Value Ref Range pH, Arterial 7.36 7.35 - 7.45 pCO2, Arterial 41 35 - 45 mmHg pO2, Arterial 76 (L) 80 - 90 mmHg O2 Sat, Arterial 94.7 (L) 96.0 - 97.0 % HCO3, Arterial 23 21 - 29 mmol/L Base Excess, Arterial -2.7 (L) -2.0 - 3.0 mmol/L Patient Temperature 37.0 C FIO2 40.0 % Specimen Performing Laboratory Blood, Arterial [address] [address] XR abdomen / KUB 1 view (01/23/2017 10:23 PM) Specimen Performing Laboratory GE RIS Narrative FINAL REPORT CLINICAL HISTORY: Of NGT evaluation COMPARISON: 01/04/2016 FINDINGS: Two supine views of the abdomen are submitted. The tip of an orogastric tube overlies the expected position of the mid to distal gastric lumen. The abdominal bowel gas pattern is unobstructed. There is no focus of dilated large or small bowel. A left-sided ureteral stent is in place. Punctate calcifications along the distal portion of the left sided ureteral stent could reflect phleboliths or ureteral stones. There is no acute bony abnormality. Signed: Dustin Brown MD Report Verified Date/Time:01/23/2017 22:34:35 Reading Location: [address] Reading Room Procedure Note Interface, External Ris In - 01/23/2017 10:36 PM CDT FINAL REPORT CLINICAL HISTORY: Of NGT evaluation COMPARISON: 01/04/2016 FINDINGS: Two supine views of the abdomen are submitted. The tip of an orogastric tube overlies the expected position of the mid to distal gastric lumen. The abdominal bowel gas pattern is unobstructed. There is no focus of dilated large or small bowel. A left-sided ureteral stent is in place. Punctate calcifications along the distal portion of the left sided ureteral stent could reflect phleboliths or ureteral stones. There is no acute bony abnormality. Signed: Dustin Brown MD Report Verified Date/Time: 01/23/2017 22:34:35 Reading Location: [address] Reading Room CRITICAL LABS (ABG,NA,K,H&H,GLUCOSE) (01/23/2017 6:45 PM)Only the most recent of4 resultswithin the time period is included. Specimen Performing Laboratory Blood, Arterial Narrative The following orders were created for panel order [facility] CRITICAL LABS (ABG,NA,K,H&H,GLUCOSE). Procedure Abnormality Status --------- ------ Blood gas, arterial[[id number]]AbnormalFinal result Sodium Na-Stat Lab[[id number]] NormalFinal result Potassium-Stat Lab[[id number]] NormalFinal result Glucose-Stat Lab[[id number]] AbnormalFinal result HGB/HCT (H&H)-Stat Lab[[id number]] NormalFinal result Please view results for these tests on the individual orders. Potassium-Stat Lab (01/23/2017 6:45 PM)Only the most recent of4 resultswithin the time period is included. Component Value Ref Range Potassium 3.8 3.6 - 5.5 meq/L Specimen Performing Laboratory Blood, [address] [address] Sodium Na-Stat Lab (01/23/2017 6:45 PM)Only the most recent of4 resultswithin the time period is included. Component Value Ref Range Sodium 138 135 - 148 meq/L Specimen Performing Laboratory Blood, [address] [address] Glucose-Stat Lab (01/23/2017 6:45 PM)Only the most recent of4 resultswithin the time period is included. Component Value Ref Range Glucose 179 (H) 70 - 110 mg/dL Specimen Performing Laboratory Blood, [address] [address] HGB/HCT (H&H)-Stat Lab (01/23/2017 6:45 PM)Only the most recent of4 resultswithin the time period is included. Component Value Ref Range Hemoglobin 12.8 12.0 - 15.0 g/dL Hematocrit 38.0 36.0 - 45.0 % Specimen Performing Laboratory Blood, [address] [address] Calcium, Ionized (01/23/2017 6:45 PM)Only the most recent of4 resultswithin the time period is included. Component Value Ref Range Calcium, Ion 0.96 (L) 1.12 - 1.27 mmol/L pH, Blood 7.37 Specimen Performing Laboratory Blood [address] [address] Anaerobic culture (01/23/2017 6:15 PM) Component Value Ref Range Result No anaerobes isolated Specimen Performing Laboratory Abscess - Pelvis, Left [address] [address] Surgically obtained culture + gram stain (01/23/2017 6:15 PM) Component Value Ref Range Result 3+ Beronica albicans (A) Gram Stain Result 4+ WBCs Gram Stain Result 1+ yeast Specimen Performing Laboratory Abscess - Pelvis, Left [facility] [address] [address] Organism Antibiotic Method Susceptibility Beronica albicans Fluconazole 0.25: Susceptible Beronica albicans Micafungin 0.015: Susceptible Beronica albicans Voriconazole <0.008: Susceptible Electrocardiogram, 12-lead (01/16/2017 10:29 AM) Specimen Performing Laboratory GE MUSE Narrative Ventricular Rate 73 BPM Atrial Rate 73 BPM P-R Interval 162 ms QRS Duration 94 ms Q-T Interval 394 ms QTC Calculation(Bazett) 434 ms P Henderson 28 degrees R Henderson -20 degrees T Henderson 31 degrees Normal sinus rhythm Moderate voltage criteria for LVH, may be normal variant Borderline ECG When compared with ECG of 29-AUG-2016 14:28, Nonspecific T wave abnormality no longer evident in Lateral leads Confirmed by MD QI, IHAB ([id number]) on 01/16/2017 11:42:52 PM Procedure Note Interface, External Ris In - 01/16/2017 11:42 PM CDT Ventricular Rate 73 BPM Atrial Rate 73 BPM P-R Interval 162 ms QRS Duration 94 ms Q-T Interval 394 ms QTC Calculation(Bazett) 434 ms P Henderson 28 degrees R Henderson -20 degrees T Henderson 31 degrees Normal sinus rhythm Moderate voltage criteria for LVH, may be normal variant Borderline ECG When compared with ECG of 29-AUG-2016 14:28, Nonspecific T wave abnormality no longer evident in Lateral leads Confirmed by MD QI, IHAB ([id number]) on 01/16/2017 11:42:52 PM after 11/15/2016
--- OUTSIDE RECORDS SUMMARY | 2017-11-16 14:29 | XMS REPORT ---
:1960 [facility] [address] [place] [address] Care Team Providers Name Role Phone CAROL ANN VILLATOROTRISTON MONACOMOND Unavailable Unavailable JW, CLARENCE JACKSON Unavailable Unavailable CHRIS IVORY Unavailable Unavailable ZINDANA PAULA, SARAH Unavailable Unavailable SAMDARRICK, ASHUTOSH BROUSSARD Unavailable Unavailable Problems This patient has no known problems. Allergies, Adverse Reactions, Alerts This patient has no known allergies or adverse reactions. Medications This patient has no known medications. 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 Other organisms and resistance markers not contained in this PCR panel cannot be excluded and follow-up of traditional culture results is required. This sample was tested at the [facility] Clinical Microbiology Laboratory using the artandseek Blood Culture ID Panel.This test is FDA cleared for in vitro diagnostic use and has been verified and approved by the [facility] for [facility] use. Reference Range: Not DetectedBLOOD [id number] 23:00:00 Test Item Value Reference Range Comments CULTURE (BEAKER) (test mgvl=9776) No growth in 5 days MISCELLANEOUS LAB [id number] 14:42:00 Test Item Value Reference Range Comments SCAN RESULT (test vqfq=[id number]) Result comments: Coagulase Negative Staphylococcus Species (CoNS) [...] required. This sample was tested at the [facility] Clinical Microbiology Laboratory using the artandseek Blood Culture ID Panel. This test is FDA cleared for in vitro diagnostic use and has been verified and approved by the [facility] Clinical Microbiology laboratory for clinical use. Reference Range: Not DetectedPOCT-GLUCOSE [id number] 13:10:00 Test Item Value Reference Range Comments POC-GLUCOSE METER (BEAKER) 196 mg/dL 70-110 TESTED AT [address] (test pcya=5904) [place] [address] URINE [id number] 11:19:00 Test Item Value Reference Range Comments CULTURE (BEAKER) (test >100,000 col/mL Beronica mtbg=3938) albicans <10,000 col/mL skin floraPOCT-GLUCOSE [id number] 07:50:00 Test Item Value Reference Range Comments POC-GLUCOSE METER (BEAKER) 190 mg/dL 70-110 TESTED AT [address] (test rtkl=3387) [place] [address] [id number] 06:18:00 Test Item Value Reference Range Comments PHOSPHORUS (BEAKER) (test fkcz=508) 3.3 mg/dL 2.3-4.7 [id number] 06:18:00 Test Item Value Reference Range Comments MAGNESIUM (BEAKER) (test kano=624) 1.4 mg/dL 1.6-2.6 BASIC METABOLIC [id number] 06:18:00 Test Item Value Reference Range Comments SODIUM (BEAKER) (test 138 meq/L 136-145 mxon=195) POTASSIUM (BEAKER) (test 3.6 meq/L 3.5-5.1 gnzm=557) CHLORIDE (BEAKER) (test 105 meq/L 98-107 jpem=378) CO2 (BEAKER) (test 23 meq/L 22-29 itxb=677) BLOOD UREA NITROGEN 17 mg/dL 7-21 (BEAKER) (test rahp=314) CREATININE (BEAKER) (test 1.55 mg/dL 0.57-1.25 ivap=478) GLUCOSE RANDOM (BEAKER) 158 mg/dL 70-105 (test bblk=931) CALCIUM (BEAKER) (test 8.5 mg/dL 8.4-10.2 shdy=753) EGFR (BEAKER) (test 35 mL/min/1.73 sq m ESTIMATED GFR IS NOT muae=2414) ACCURATE CREATININE CLEARANCE IN PREDICTING GLOMERULAR FILTRATION RATE. ESTIMATED GFR IS NOT APPLICABLE FOR DIALYSIS PATIENTS. CBC W/PLT COUNT & AUTO [id number] 06:01:00 Test Item Value Reference Range Comments WHITE BLOOD CELL COUNT (BEAKER) (test nray=410) 12.9 K/ L 3.5-10.5 RED BLOOD CELL COUNT (BEAKER) (test aoiy=107) 3.78 M/ L 3.93-5.22 HEMOGLOBIN (BEAKER) (test joiz=128) 10.6 GM/DL 11.2-15.7 HEMATOCRIT (BEAKER) (test xuvt=495) 32.7 % 34.1-44.9 MEAN CORPUSCULAR VOLUME (BEAKER) (test qshm=610) 86.5 fL 79.4-94.8 MEAN CORPUSCULAR HEMOGLOBIN (BEAKER) (test 28.0 pg 25.6-32.2 nuha=392) MEAN CORPUSCULAR HEMOGLOBIN CONC (BEAKER) (test 32.4 GM/DL 32.2-35.5 bpem=164) RED CELL DISTRIBUTION WIDTH (BEAKER) (test 14.8 % 11.7-14.4 rwev=104) PLATELET COUNT (BEAKER) (test pysm=119) 348 K/CU MM 150-450 MEAN PLATELET VOLUME (BEAKER) (test qtqu=486) 9.1 fL 9.4-12.3 NUCLEATED RED BLOOD CELLS (BEAKER) (test 0 /100 WBC 0-0 itsn=553) NEUTROPHILS RELATIVE PERCENT (BEAKER) (test 57 % cuxm=779) LYMPHOCYTES RELATIVE PERCENT (BEAKER) (test 19 % sivp=919) MONOCYTES RELATIVE PERCENT (BEAKER) (test 13 % cevp=507) EOSINOPHILS RELATIVE PERCENT (BEAKER) (test 4 % jbsk=087) BASOPHILS RELATIVE PERCENT (BEAKER) (test 1 % iyym=046) NEUTROPHILS ABSOLUTE COUNT (BEAKER) (test 7.34 K/ L 1.56-6.13 uihg=110) LYMPHOCYTES ABSOLUTE COUNT (BEAKER) (test 2.48 K/ L 1.18-3.74 rtmf=854) MONOCYTES ABSOLUTE COUNT (BEAKER) (test 1.68 K/ L 0.24-0.36 jfim=312) EOSINOPHILS ABSOLUTE COUNT (BEAKER) (test 0.56 K/ L 0.04-0.36 nxzd=220) BASOPHILS ABSOLUTE COUNT (BEAKER) (test 0.08 K/ L 0.01-0.08 ugfg=357) IMMATURE GRANULOCYTES-RELATIVE PERCENT (BEAKER) 6 % 0-1 (test yhno=0277) POCT-GLUCOSE [id number] 21:08:00 Test Item Value Reference Range Comments POC-GLUCOSE METER (BEAKER) 157 mg/dL 70-110 TESTED AT [address] (test uxhs=0478) [place] [address] POCT-GLUCOSE [id number] 11:59:00 Test Item Value Reference Range Comments POC-GLUCOSE METER (BEAKER) 151 mg/dL 70-110 TESTED AT [address] (test brwy=7170) [place] [address] CBC W/PLT COUNT & AUTO [id number] 11:31:00 Test Item Value Reference Range Comments WHITE BLOOD CELL COUNT (BEAKER) (test emzh=507) 11.6 K/ L 3.5-10.5 RED BLOOD CELL COUNT (BEAKER) (test qzjy=234) 3.72 M/ L 3.93-5.22 HEMOGLOBIN (BEAKER) (test ywol=631) 10.3 GM/DL 11.2-15.7 HEMATOCRIT (BEAKER) (test mmni=280) 32.2 % 34.1-44.9 MEAN CORPUSCULAR VOLUME (BEAKER) (test muog=906) 86.6 fL 79.4-94.8 MEAN CORPUSCULAR HEMOGLOBIN (BEAKER) (test 27.7 pg 25.6-32.2 hvzl=038) MEAN CORPUSCULAR HEMOGLOBIN CONC (BEAKER) (test 32.0 GM/DL 32.2-35.5 xszb=396) RED CELL DISTRIBUTION WIDTH (BEAKER) (test 14.7 % 11.7-14.4 kvbm=375) PLATELET COUNT (BEAKER) (test lwxg=763) 281 K/CU MM 150-450 MEAN PLATELET VOLUME (BEAKER) (test mseb=897) 9.1 fL 9.4-12.3 NUCLEATED RED BLOOD CELLS (BEAKER) (test 0 /100 WBC 0-0 fjvm=439) IMMATURE GRANULOCYTES-RELATIVE PERCENT (BEAKER) 5 % 0-1 (test khfl=2396) (MANUAL DIFFERENTIAL)2017-06-25 11:31:00 Test Item Value Reference Range Comments NEUTROPHILS - REL (DIFF) (BEAKER) (test cfnc=3157) 60 % LYMPHOCYTES - REL (DIFF) (BEAKER) (test ndrh=6677) 21 % MONOCYTES - REL (DIFF) (BEAKER) (test xgwg=5759) 13 % EOSINOPHILS - REL (DIFF) (BEAKER) (test pmsi=9808) 1 % BASOPHILS - REL (DIFF) (BEAKER) (test rfvd=3863) 0 % METAMYELOCYTES-REL (DIFF) (BEAKER) (test iloi=957) 2 % 0-0 MYELOCYTES-REL (DIFF) (BEAKER) (test zkuo=7936) 3 % 0-0 NEUTROPHILS - ABS (DIFF) (BEAKER) (test zivr=3070) 6.96 K/ L 1.80-8.00 LYMPHOCYTES - ABS (DIFF) (BEAKER) (test ghfx=1360) 2.44 K/ L 1.48-4.50 MONOCYTES - ABS (DIFF) (BEAKER) (test anoh=0292) 1.51 K/ L 0.00-1.30 EOSINOPHILS - ABS (DIFF) (BEAKER) (test iydk=0995) 0.12 K/ L 0.00-0.50 BASOPHILS - ABS (DIFF) (BEAKER) (test fnzy=4835) 0.00 K/ L 0.00-0.20 METAMYELOCTYES - ABS (DIFF) (BEAKER) (test 0.23 K/ L 0.00-0.00 ycmp=391) MYELOCYTES-ABS (DIFF) (BEAKER) (test aeeu=7387) 0.35 K/ L 0.00-0.00 TOTAL COUNTED (BEAKER) (test nizm=5065) 100 WBC MORPHOLOGY (BEAKER) (test senc=298) Normal PLT MORPHOLOGY (BEAKER) (test behh=758) Normal RBC MORPHOLOGY (BEAKER) (test dwtn=178) Normal POCT-GLUCOSE [id number] 07:43:00 Test Item Value Reference Range Comments POC-GLUCOSE METER (BEAKER) 151 mg/dL 70-110 TESTED AT [address] (test pxoj=2347) [place] [id number] BASIC METABOLIC [id number] 06:24:00 Test Item Value Reference Range Comments SODIUM (BEAKER) (test 138 meq/L 136-145 hwfg=245) POTASSIUM (BEAKER) (test 3.8 meq/L 3.5-5.1 pwtf=748) CHLORIDE (BEAKER) (test 106 meq/L 98-107 azaq=247) CO2 (BEAKER) (test 21 meq/L 22-29 jtqt=955) BLOOD UREA NITROGEN 17 mg/dL 7-21 (BEAKER) (test olhs=527) CREATININE (BEAKER) (test 1.82 mg/dL 0.57-1.25 zohg=170) GLUCOSE RANDOM (BEAKER) 137 mg/dL 70-105 (test jerq=440) CALCIUM (BEAKER) (test 8.6 mg/dL 8.4-10.2 ofvm=307) EGFR (BEAKER) (test 29 mL/min/1.73 sq m ESTIMATED GFR IS NOT syjs=9897) ACCURATE CREATININE CLEARANCE IN PREDICTING GLOMERULAR FILTRATION RATE. ESTIMATED GFR IS NOT APPLICABLE FOR DIALYSIS PATIENTS. [id number] 06:23:00 Test Item Value Reference Range Comments PHOSPHORUS (BEAKER) (test vawl=442) 3.5 mg/dL 2.3-4.7 [id number] 06:23:00 Test Item Value Reference Range Comments MAGNESIUM (BEAKER) (test czfo=358) 1.7 mg/dL 1.6-2.6 POCT-GLUCOSE [id number] 21:50:00 Test Item Value Reference Range Comments POC-GLUCOSE METER (BEAKER) 205 mg/dL 70-110 TESTED AT [address] (test dwca=6017) [place] [address] POCT-GLUCOSE [id number] 17:18:00 Test Item Value Reference Range Comments POC-GLUCOSE METER (BEAKER) 161 mg/dL 70-110 TESTED AT [address] (test fsgl=7302) [place] [address] URINALYSIS W/ [id number] 13:16:00 Test Item Value Reference Range Comments COLOR (BEAKER) (test uzaz=978) Yellow CLARITY (BEAKER) (test ymzb=851) Hazy SPECIFIC GRAVITY UA (BEAKER) (test soed=329) 1.007 1.001-1.035 PH UA (BEAKER) (test vjch=643) 6.5 5.0-8.0 PROTEIN UA (BEAKER) (test dlhr=294) 30 mg/dL Negative GLUCOSE UA (BEAKER) (test zpak=483) Negative Negative KETONES UA (BEAKER) (test yyby=393) Negative Negative BILIRUBIN UA (BEAKER) (test qdeo=326) Negative Negative BLOOD UA (BEAKER) (test rluy=343) Large Negative NITRITE UA (BEAKER) (test zfpo=065) Negative Negative LEUKOCYTE ESTERASE UA (BEAKER) (test mbpq=810) Large Negative UROBILINOGEN UA (BEAKER) (test opnq=533) 0.2 mg/dL 0.2-1.0 RBC UA (BEAKER) (test nadj=516) 26 /HPF WBC UA (BEAKER) (test uose=902) > /HPF SQUAMOUS EPITHELIAL (BEAKER) (test kqsk=597) 17 /HPF SOURCE(BEAKER) (test bwgh=0489) Urine, Voided POCT-GLUCOSE [id number] 08:34:00 Test Item Value Reference Range Comments POC-GLUCOSE METER (BEAKER) 154 mg/dL 70-110 TESTED AT [address] (test iigc=0265) [place] [id number] BASIC METABOLIC [id number] 07:34:00 Test Item Value Reference Range Comments SODIUM (BEAKER) (test 138 meq/L 136-145 fzfd=615) POTASSIUM (BEAKER) (test 4.0 meq/L 3.5-5.1 ousf=238) CHLORIDE (BEAKER) (test 105 meq/L 98-107 kzpb=361) CO2 (BEAKER) (test 24 meq/L 22-29 kxht=441) BLOOD UREA NITROGEN 18 mg/dL 7-21 (BEAKER) (test wfsd=341) CREATININE (BEAKER) (test 2.27 mg/dL 0.57-1.25 orwh=665) GLUCOSE RANDOM (BEAKER) 125 mg/dL 70-105 (test owye=051) CALCIUM (BEAKER) (test 9.1 mg/dL 8.4-10.2 tiun=304) EGFR (BEAKER) (test 22 mL/min/1.73 sq m ESTIMATED GFR IS NOT xbii=7888) ACCURATE CREATININE CLEARANCE IN PREDICTING GLOMERULAR FILTRATION RATE. ESTIMATED GFR IS NOT APPLICABLE FOR DIALYSIS PATIENTS. [id number] 07:32:00 Test Item Value Reference Range Comments PHOSPHORUS (BEAKER) (test kiui=631) 3.1 mg/dL 2.3-4.7 [id number] 07:32:00 Test Item Value Reference Range Comments MAGNESIUM (BEAKER) (test libe=337) 1.6 mg/dL 1.6-2.6 CBC W/PLT COUNT & AUTO [id number] 05:48:00 Test Item Value Reference Range Comments WHITE BLOOD CELL COUNT (BEAKER) (test ohhm=249) 13.5 K/ L 3.5-10.5 RED BLOOD CELL COUNT (BEAKER) (test rvug=345) 3.79 M/ L 3.93-5.22 HEMOGLOBIN (BEAKER) (test mbst=653) 10.6 GM/DL 11.2-15.7 HEMATOCRIT (BEAKER) (test tkbg=024) 33.0 % 34.1-44.9 MEAN CORPUSCULAR VOLUME (BEAKER) (test efkd=563) 87.1 fL 79.4-94.8 MEAN CORPUSCULAR HEMOGLOBIN (BEAKER) (test 28.0 pg 25.6-32.2 tkdh=486) MEAN CORPUSCULAR HEMOGLOBIN CONC (BEAKER) (test 32.1 GM/DL 32.2-35.5 tkzv=801) RED CELL DISTRIBUTION WIDTH (BEAKER) (test 14.7 % 11.7-14.4 oxik=813) PLATELET COUNT (BEAKER) (test mlyr=794) 268 K/CU MM 150-450 MEAN PLATELET VOLUME (BEAKER) (test dlln=843) 9.0 fL 9.4-12.3 NUCLEATED RED BLOOD CELLS (BEAKER) (test 0 /100 WBC 0-0 kodp=658) NEUTROPHILS RELATIVE PERCENT (BEAKER) (test 77 % tngg=005) LYMPHOCYTES RELATIVE PERCENT (BEAKER) (test 9 % ugct=324) MONOCYTES RELATIVE PERCENT (BEAKER) (test 10 % tvxi=392) EOSINOPHILS RELATIVE PERCENT (BEAKER) (test 2 % exuy=002) BASOPHILS RELATIVE PERCENT (BEAKER) (test 0 % pkbf=039) NEUTROPHILS ABSOLUTE COUNT (BEAKER) (test 10.36 K/ L 1.56-6.13 pvpd=144) LYMPHOCYTES ABSOLUTE COUNT (BEAKER) (test 1.25 K/ L 1.18-3.74 bdzr=917) MONOCYTES ABSOLUTE COUNT (BEAKER) (test 1.36 K/ L 0.24-0.36 jcmv=863) EOSINOPHILS ABSOLUTE COUNT (BEAKER) (test 0.25 K/ L 0.04-0.36 sebt=315) BASOPHILS ABSOLUTE COUNT (BEAKER) (test 0.05 K/ L 0.01-0.08 puhg=359) IMMATURE GRANULOCYTES-RELATIVE PERCENT (BEAKER) 2 % 0-1 (test jclp=1295) POCT-GLUCOSE [id number] 22:24:00 Test Item Value Reference Range Comments POC-GLUCOSE METER (BEAKER) 119 mg/dL 70-110 TESTED AT [address] (test ehqx=9339) [place] [id number] POCT-GLUCOSE [id number] 17:09:00 Test Item Value Reference Range Comments POC-GLUCOSE METER (BEAKER) 110 mg/dL 70-110 TESTED AT [address] (test cpss=5181) [place] [address] BLOOD [id number] 17:00:00 Test Item Value Reference Range Comments CULTURE (BEAKER) (test vvai=0514) No growth in 5 days BLOOD [id number] 17:00:00 Test Item Value Reference Range Comments CULTURE (BEAKER) (test ytqn=2664) No growth in 5 days POCT-GLUCOSE [id number] 11:34:00 Test Item Value Reference Range Comments POC-GLUCOSE METER (BEAKER) 202 mg/dL 70-110 TESTED AT [address] (test wkqi=9162) [place] [id number] POCT-GLUCOSE [id number] 07:55:00 Test Item Value Reference Range Comments POC-GLUCOSE METER (BEAKER) 147 mg/dL 70-110 TESTED AT [facility] [address] [facility] (test pelm=6868) [facility] [address] BASIC METABOLIC [id number] 05:37:00 Test Item Value Reference Range Comments SODIUM (BEAKER) (test 136 meq/L 136-145 htdr=628) POTASSIUM (BEAKER) (test 3.7 meq/L 3.5-5.1 baku=338) CHLORIDE (BEAKER) (test 105 meq/L 98-107 gpuu=957) CO2 (BEAKER) (test 21 meq/L 22-29 wnjd=870) BLOOD UREA NITROGEN 18 mg/dL 7-21 (BEAKER) (test pqtt=622) CREATININE (BEAKER) (test 2.23 mg/dL 0.57-1.25 koih=985) GLUCOSE RANDOM (BEAKER) 133 mg/dL 70-105 (test vhth=864) CALCIUM (BEAKER) (test 8.9 mg/dL 8.4-10.2 rxoz=141) EGFR (BEAKER) (test 23 mL/min/1.73 sq m ESTIMATED GFR IS NOT sdid=0234) ACCURATE CREATININE CLEARANCE IN PREDICTING GLOMERULAR FILTRATION RATE. ESTIMATED GFR IS NOT APPLICABLE FOR DIALYSIS PATIENTS. [id number] 05:35:00 Test Item Value Reference Range Comments PHOSPHORUS (BEAKER) (test snzp=515) 2.8 mg/dL 2.3-4.7 [id number] 05:35:00 Test Item Value Reference Range Comments MAGNESIUM (BEAKER) (test tnmq=096) 1.6 mg/dL 1.6-2.6 CBC W/PLT COUNT & AUTO [id number] 05:12:00 Test Item Value Reference Range Comments WHITE BLOOD CELL COUNT (BEAKER) (test yqne=834) 14.0 K/ L 3.5-10.5 RED BLOOD CELL COUNT (BEAKER) (test xpbo=047) 3.79 M/ L 3.93-5.22 HEMOGLOBIN (BEAKER) (test mdod=273) 10.5 GM/DL 11.2-15.7 HEMATOCRIT (BEAKER) (test stci=537) 32.4 % 34.1-44.9 MEAN CORPUSCULAR VOLUME (BEAKER) (test rlse=862) 85.5 fL 79.4-94.8 MEAN CORPUSCULAR HEMOGLOBIN (BEAKER) (test 27.7 pg 25.6-32.2 aoju=523) MEAN CORPUSCULAR HEMOGLOBIN CONC (BEAKER) (test 32.4 GM/DL 32.2-35.5 jaxp=867) RED CELL DISTRIBUTION WIDTH (BEAKER) (test 14.7 % 11.7-14.4 xbsb=827) PLATELET COUNT (BEAKER) (test qdzr=578) 240 K/CU MM 150-450 MEAN PLATELET VOLUME (BEAKER) (test rsel=737) 9.0 fL 9.4-12.3 NUCLEATED RED BLOOD CELLS (BEAKER) (test 0 /100 WBC 0-0 hyvg=461) NEUTROPHILS RELATIVE PERCENT (BEAKER) (test 70 % nkab=458) LYMPHOCYTES RELATIVE PERCENT (BEAKER) (test 12 % kjri=944) MONOCYTES RELATIVE PERCENT (BEAKER) (test 12 % ygos=966) EOSINOPHILS RELATIVE PERCENT (BEAKER) (test 3 % llbt=242) BASOPHILS RELATIVE PERCENT (BEAKER) (test 0 % ovjo=855) NEUTROPHILS ABSOLUTE COUNT (BEAKER) (test 9.78 K/ L 1.56-6.13 kqcs=715) LYMPHOCYTES ABSOLUTE COUNT (BEAKER) (test 1.72 K/ L 1.18-3.74 vbxk=463) MONOCYTES ABSOLUTE COUNT (BEAKER) (test 1.73 K/ L 0.24-0.36 soxo=639) EOSINOPHILS ABSOLUTE COUNT (BEAKER) (test 0.41 K/ L 0.04-0.36 xqwe=400) BASOPHILS ABSOLUTE COUNT (BEAKER) (test 0.06 K/ L 0.01-0.08 ayei=065) IMMATURE GRANULOCYTES-RELATIVE PERCENT (BEAKER) 2 % 0-1 (test atpt=9541) POCT-GLUCOSE [id number] 22:02:00 Test Item Value Reference Range Comments POC-GLUCOSE METER (BEAKER) 107 mg/dL 70-110 TESTED AT [facility] [address] [facility] (test fkvl=5734) [facility] [address] CT, [id number] 20:36:00FINAL REPORT CT of the abdomen and pelvis, [...] adjustment of the mA and/or kV according topatient size and/or use of iterative reconstruction technique. Discussion: Examination is limited without contrast.Lung bases: There is right basilar atelectasis. Abdomen: Mild right and moderate left hydronephrosis are unchanged. Right internal double-J ureteral stent is again seen. A new 4.5 x 4.0 x 5 cm fluid collection is seen anteriorto the proximal right ureter and medial to [...] subcutaneous emphysema is again seen, grossly unchanged. Pelvis : The bladder is unremarkable. The uterus and adnexa are not visualized. There is no evidence of free fluid or adenopathy. Bones: Degenerative changes are present throughout the lumbar spine without evidence of lytic or sclerotic lesion. 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 Otherwise no significant change. Signed: [facility] Verified Date/Time: 06/22/2017 20:36: 43 Reading Location: [address] Consult Reading Room POCT-GLUCOSE [id number] 16:27:00 Test Item Value Reference Range Comments POC-GLUCOSE METER (BEAKER) 136 mg/dL 70-110 TESTED AT [address] (test rvxg=7029) [facility] [address] POCT-GLUCOSE [id number] 12:07:00 Test Item Value Reference Range Comments POC-GLUCOSE METER (BEAKER) 150 mg/dL 70-110 TESTED AT [address] (test fqzv=6722) [facility] [address] POCT-GLUCOSE [id number] 07:45:00 Test Item Value Reference Range Comments POC-GLUCOSE METER (BEAKER) 201 mg/dL 70-110 TESTED AT [facility] [address] [facility] (test hpwt=3629) [facility] [address] BASIC METABOLIC [id number] 05:21:00 Test Item Value Reference Range Comments SODIUM (BEAKER) (test 134 meq/L 136-145 vkcl=879) POTASSIUM (BEAKER) (test 4.0 meq/L 3.5-5.1 Specimen slightly iddo=586) hemolyzed CHLORIDE (BEAKER) (test 103 meq/L 98-107 zlqq=309) CO2 (BEAKER) (test 23 meq/L 22-29 fgjs=969) BLOOD UREA NITROGEN 18 mg/dL 7-21 (BEAKER) (test tpqg=083) CREATININE (BEAKER) (test 2.31 mg/dL 0.57-1.25 Specimen slightly sotc=928) hemolyzed GLUCOSE RANDOM (BEAKER) 140 mg/dL 70-105 (test xsjy=451) CALCIUM (BEAKER) (test 8.8 mg/dL 8.4-10.2 rrbh=705) EGFR (BEAKER) (test 22 mL/min/1.73 sq m ESTIMATED GFR IS NOT ictj=9409) ACCURATE CREATININE CLEARANCE IN PREDICTING GLOMERULAR FILTRATION RATE. ESTIMATED GFR IS NOT APPLICABLE FOR DIALYSIS PATIENTS. [id number] 05:09:00 Test Item Value Reference Range Comments MAGNESIUM (BEAKER) (test 1.5 mg/dL 1.6-2.6 Specimen slightly hemolyzed burq=841) [id number] 05:09:00 Test Item Value Reference Range Comments PHOSPHORUS (BEAKER) (test 2.8 mg/dL 2.3-4.7 Specimen slightly hemolyzed rakz=175) CBC W/PLT COUNT & AUTO [id number] 04:32:00 Test Item Value Reference Range Comments WHITE BLOOD CELL COUNT (BEAKER) (test pjjp=559) 16.5 K/ L 3.5-10.5 RED BLOOD CELL COUNT (BEAKER) (test eqmq=599) 3.71 M/ L 3.93-5.22 HEMOGLOBIN (BEAKER) (test nzhh=588) 10.4 GM/DL 11.2-15.7 HEMATOCRIT (BEAKER) (test ijla=755) 31.6 % 34.1-44.9 MEAN CORPUSCULAR VOLUME (BEAKER) (test kwwn=886) 85.2 fL 79.4-94.8 MEAN CORPUSCULAR HEMOGLOBIN (BEAKER) (test 28.0 pg 25.6-32.2 oznj=912) MEAN CORPUSCULAR HEMOGLOBIN CONC (BEAKER) (test 32.9 GM/DL 32.2-35.5 duie=155) RED CELL DISTRIBUTION WIDTH (BEAKER) (test 14.6 % 11.7-14.4 mjmx=894) PLATELET COUNT (BEAKER) (test wcpw=736) 208 K/CU MM 150-450 MEAN PLATELET VOLUME (BEAKER) (test sqmg=655) 9.0 fL 9.4-12.3 NUCLEATED RED BLOOD CELLS (BEAKER) (test 0 /100 WBC 0-0 wtpr=411) NEUTROPHILS RELATIVE PERCENT (BEAKER) (test 70 % rtsu=954) LYMPHOCYTES RELATIVE PERCENT (BEAKER) (test 10 % hmda=879) MONOCYTES RELATIVE PERCENT (BEAKER) (test 16 % hvvo=286) EOSINOPHILS RELATIVE PERCENT (BEAKER) (test 2 % etml=758) BASOPHILS RELATIVE PERCENT (BEAKER) (test 0 % wbjd=849) NEUTROPHILS ABSOLUTE COUNT (BEAKER) (test 11.58 K/ L 1.56-6.13 idik=137) LYMPHOCYTES ABSOLUTE COUNT (BEAKER) (test 1.72 K/ L 1.18-3.74 rtns=629) MONOCYTES ABSOLUTE COUNT (BEAKER) (test 2.67 K/ L 0.24-0.36 qyxo=359) EOSINOPHILS ABSOLUTE COUNT (BEAKER) (test 0.29 K/ L 0.04-0.36 zprc=551) BASOPHILS ABSOLUTE COUNT (BEAKER) (test 0.05 K/ L 0.01-0.08 cvth=628) IMMATURE GRANULOCYTES-RELATIVE PERCENT (BEAKER) 1 % 0-1 (test ypbv=0273) POCT-GLUCOSE [id number] 21:34:00 Test Item Value Reference Range Comments POC-GLUCOSE METER (BEAKER) 104 mg/dL 70-110 TESTED AT [facility] [address] [facility] (test dgym=1514) [facility] [address] POCT-GLUCOSE [id number] 17:16:00 Test Item Value Reference Range Comments POC-GLUCOSE METER (BEAKER) 262 mg/dL 70-110 TESTED AT [address] (test rvei=1161) [facility] [address] URINE [id number] 11:56:00 Test Item Value Reference Range Comments CULTURE (BEAKER) (test 50-59,000 col/mL Beronica tjxn=1827) glabrata 10-19,000 col/ml skin floraPOCT-GLUCOSE [id number] 11:29:00 Test Item Value Reference Range Comments POC-GLUCOSE METER (BEAKER) 148 mg/dL 70-110 TESTED AT [address] (test rsak=5133) [place] [id number] POCT-GLUCOSE [id number] 08:58:00 Test Item Value Reference Range Comments POC-GLUCOSE METER (BEAKER) 141 mg/dL 70-110 TESTED AT [address] (test krfw=4030) [place] [address] BASIC METABOLIC [id number] 05:45:00 Test Item Value Reference Range Comments SODIUM (BEAKER) (test 132 meq/L 136-145 gcqg=123) POTASSIUM (BEAKER) (test 3.8 meq/L 3.5-5.1 cqsk=636) CHLORIDE (BEAKER) (test 102 meq/L 98-107 jbec=582) CO2 (BEAKER) (test 20 meq/L 22-29 tsfb=542) BLOOD UREA NITROGEN 18 mg/dL 7-21 (BEAKER) (test swur=117) CREATININE (BEAKER) (test 2.00 mg/dL 0.57-1.25 dksn=691) GLUCOSE RANDOM (BEAKER) 130 mg/dL 70-105 (test nbxq=978) CALCIUM (BEAKER) (test 9.0 mg/dL 8.4-10.2 wegi=864) EGFR (BEAKER) (test 26 mL/min/1.73 sq m ESTIMATED GFR IS NOT vjbq=9527) ACCURATE CREATININE CLEARANCE IN PREDICTING GLOMERULAR FILTRATION RATE. ESTIMATED GFR IS NOT APPLICABLE FOR DIALYSIS PATIENTS. [id number] 05:30:00 Test Item Value Reference Range Comments PHOSPHORUS (BEAKER) (test rjxt=755) 2.8 mg/dL 2.3-4.7 [id number] 05:30:00 Test Item Value Reference Range Comments MAGNESIUM (BEAKER) (test zpen=244) 1.6 mg/dL 1.6-2.6 CBC W/PLT COUNT & AUTO [id number] 05:07:00 Test Item Value Reference Range Comments WHITE BLOOD CELL COUNT (BEAKER) (test tnjo=508) 12.1 K/ L 3.5-10.5 RED BLOOD CELL COUNT (BEAKER) (test hkuv=966) 3.84 M/ L 3.93-5.22 HEMOGLOBIN (BEAKER) (test rxzj=773) 10.7 GM/DL 11.2-15.7 HEMATOCRIT (BEAKER) (test dmaj=754) 34.9 % 34.1-44.9 MEAN CORPUSCULAR VOLUME (BEAKER) (test nbnp=446) 90.9 fL 79.4-94.8 MEAN CORPUSCULAR HEMOGLOBIN (BEAKER) (test 27.9 pg 25.6-32.2 ypsw=684) MEAN CORPUSCULAR HEMOGLOBIN CONC (BEAKER) (test 30.7 GM/DL 32.2-35.5 cfeq=141) RED CELL DISTRIBUTION WIDTH (BEAKER) (test 14.5 % 11.7-14.4 waxf=486) PLATELET COUNT (BEAKER) (test lyhl=572) 167 K/CU MM 150-450 MEAN PLATELET VOLUME (BEAKER) (test lqxl=530) 9.8 fL 9.4-12.3 NUCLEATED RED BLOOD CELLS (BEAKER) (test 0 /100 WBC 0-0 ydgq=137) NEUTROPHILS RELATIVE PERCENT (BEAKER) (test 74 % yalx=914) LYMPHOCYTES RELATIVE PERCENT (BEAKER) (test 10 % nxmc=253) MONOCYTES RELATIVE PERCENT (BEAKER) (test 14 % rfzj=093) EOSINOPHILS RELATIVE PERCENT (BEAKER) (test 2 % pvoc=927) BASOPHILS RELATIVE PERCENT (BEAKER) (test 0 % scuw=458) NEUTROPHILS ABSOLUTE COUNT (BEAKER) (test 8.95 K/ L 1.56-6.13 wbeh=966) LYMPHOCYTES ABSOLUTE COUNT (BEAKER) (test 1.20 K/ L 1.18-3.74 mssx=712) MONOCYTES ABSOLUTE COUNT (BEAKER) (test 1.69 K/ L 0.24-0.36 zanx=429) EOSINOPHILS ABSOLUTE COUNT (BEAKER) (test 0.18 K/ L 0.04-0.36 hzyl=314) BASOPHILS ABSOLUTE COUNT (BEAKER) (test 0.03 K/ L 0.01-0.08 xfdr=630) IMMATURE GRANULOCYTES-RELATIVE PERCENT (BEAKER) 1 % 0-1 (test gskp=9018) POCT-GLUCOSE [id number] 21:04:00 Test Item Value Reference Range Comments POC-GLUCOSE METER (BEAKER) 139 mg/dL 70-110 TESTED AT [address] (test uccu=5166) [facility] [address] POCT-GLUCOSE [id number] 17:13:00 Test Item Value Reference Range Comments POC-GLUCOSE METER (BEAKER) 127 mg/dL 70-110 TESTED AT [address] (test dkqv=9307) [facility] [address] POCT-GLUCOSE [id number] 11:25:00 Test Item Value Reference Range Comments POC-GLUCOSE METER (BEAKER) 124 mg/dL 70-110 TESTED AT [address] (test ygiw=1771) [facility] [address] POCT-GLUCOSE [id number] 07:28:00 Test Item Value Reference Range Comments POC-GLUCOSE METER (BEAKER) 137 mg/dL 70-110 TESTED AT [address] (test vqat=6780) [facility] [address] [id number] 06:43:00 Test Item Value Reference Range Comments PHOSPHORUS (BEAKER) (test pbaa=150) 2.9 mg/dL 2.3-4.7 [id number] 06:43:00 Test Item Value Reference Range Comments MAGNESIUM (BEAKER) (test jkvx=880) 1.6 mg/dL 1.6-2.6 BASIC METABOLIC [id number] 06:43:00 Test Item Value Reference Range Comments SODIUM (BEAKER) (test 137 meq/L 136-145 xzdc=129) POTASSIUM (BEAKER) (test 3.8 meq/L 3.5-5.1 ulpr=430) CHLORIDE (BEAKER) (test 105 meq/L 98-107 ihnc=489) CO2 (BEAKER) (test 22 meq/L 22-29 xqpd=189) BLOOD UREA NITROGEN 16 mg/dL 7-21 (BEAKER) (test uqxo=502) CREATININE (BEAKER) (test 1.46 mg/dL 0.57-1.25 sjcb=058) GLUCOSE RANDOM (BEAKER) 125 mg/dL 70-105 (test uxfm=951) CALCIUM (BEAKER) (test 8.8 mg/dL 8.4-10.2 mbaz=272) EGFR (BEAKER) (test 37 mL/min/1.73 sq m ESTIMATED GFR IS NOT zkbb=7390) ACCURATE CREATININE CLEARANCE IN PREDICTING GLOMERULAR FILTRATION RATE. ESTIMATED GFR IS NOT APPLICABLE FOR DIALYSIS PATIENTS. CBC W/PLT COUNT & AUTO [id number] 05:55:00 Test Item Value Reference Range Comments WHITE BLOOD CELL COUNT (BEAKER) (test nlzj=738) 10.7 K/ L 3.5-10.5 RED BLOOD CELL COUNT (BEAKER) (test vmds=726) 3.84 M/ L 3.93-5.22 HEMOGLOBIN (BEAKER) (test vizp=895) 10.7 GM/DL 11.2-15.7 HEMATOCRIT (BEAKER) (test ryqs=769) 33.0 % 34.1-44.9 MEAN CORPUSCULAR VOLUME (BEAKER) (test hlor=459) 85.9 fL 79.4-94.8 MEAN CORPUSCULAR HEMOGLOBIN (BEAKER) (test 27.9 pg 25.6-32.2 xiau=155) MEAN CORPUSCULAR HEMOGLOBIN CONC (BEAKER) (test 32.4 GM/DL 32.2-35.5 zmsk=352) RED CELL DISTRIBUTION WIDTH (BEAKER) (test 14.4 % 11.7-14.4 lhoe=081) PLATELET COUNT (BEAKER) (test dnvc=980) 172 K/CU MM 150-450 MEAN PLATELET VOLUME (BEAKER) (test hzev=892) 9.2 fL 9.4-12.3 NUCLEATED RED BLOOD CELLS (BEAKER) (test 0 /100 WBC 0-0 bksm=287) NEUTROPHILS RELATIVE PERCENT (BEAKER) (test 69 % wsjk=265) LYMPHOCYTES RELATIVE PERCENT (BEAKER) (test 14 % lxdz=250) MONOCYTES RELATIVE PERCENT (BEAKER) (test 14 % fehz=861) EOSINOPHILS RELATIVE PERCENT (BEAKER) (test 2 % ysrb=741) BASOPHILS RELATIVE PERCENT (BEAKER) (test 0 % vvvz=977) NEUTROPHILS ABSOLUTE COUNT (BEAKER) (test 7.32 K/ L 1.56-6.13 nnhr=481) LYMPHOCYTES ABSOLUTE COUNT (BEAKER) (test 1.50 K/ L 1.18-3.74 upvs=480) MONOCYTES ABSOLUTE COUNT (BEAKER) (test 1.46 K/ L 0.24-0.36 ibfi=879) EOSINOPHILS ABSOLUTE COUNT (BEAKER) (test 0.26 K/ L 0.04-0.36 jjht=132) BASOPHILS ABSOLUTE COUNT (BEAKER) (test 0.03 K/ L 0.01-0.08 lqso=268) IMMATURE GRANULOCYTES-RELATIVE PERCENT (BEAKER) 1 % 0-1 (test pmzn=1811) POCT-GLUCOSE [id number] 21:37:00 Test Item Value Reference Range Comments POC-GLUCOSE METER (BEAKER) 143 mg/dL 70-110 TESTED AT [address] (test udbu=0310) [facility] [address] POCT-GLUCOSE [id number] 18:04:00 Test Item Value Reference Range Comments POC-GLUCOSE METER (BEAKER) 143 mg/dL 70-110 TESTED AT [address] (test lonl=3597) [facility] [address] VANCOMYCIN LEVEL, [id number] 15:00:00 Test Item Value Reference Range Comments VANCOMYCIN TROUGH (BEAKER) (test gmtx=371) 9.0 ug/mL 10.0-20.0 Please hold next vanc dose until vanc trough results.TISSUE [id number] 14:20 :00Surgical Pathology Report Case: [id number] Authorizing Provider: Jag Ritchie MD Collected: 06/13/2017 1615 Ordering Location: [facility] PERIOPERATIVE Received: 06/14/2017 0753 SERVICES Pathologist: Aquilino Diaz MD Specimen: SoftTissue, Other, right upj segment RENAL PELVIS, RIGHT URETEROPELVIC JUNCTION, BIOPSY:- HAPHAZARD ARRANGEMENT OF SMOOTH MUSCLE BUNDLES WITH JENNIFER-MUSCULAR FIBROSIS, CONSISTENT WITH URETEROPELVIC JUNCTION OBSTRUCTION- NEGATIVE FOR DYSPLASIA OR MALIGNANCYSigning Pathologist Direct Phone Line: [phone] signed by Aquilino Diaz MD on 06/19/2017 at 2:20 [id number] obstructionRight UPJ segmentReceived fresh labeled "right UPJ segment" are two irregular pink-camacho to mary-white rubbery fragments of soft tissue measuring 1.5 x1.0 x 0.2 cm in aggregate. Sectioning reveals no discrete masses. The specimen is entirely submittedin cassette A1. DB/plPerformed.POCT-GLUCOSE [id number] 13:48:00 Test Item Value Reference Range Comments POC-GLUCOSE METER (BEAKER) 156 mg/dL 70-110 TESTED AT [address] (test dzew=4265) [facility] [address] RAD, CHEST, 2 [id number] 10:31:00Reason for exam:->feverFINAL REPORT Chest x-ray, PA and lateral views [...] foci of nonspecific opacities in the right lung.Suggest radiographic follow-up. Signed: Yulisa Monson Verified Date/Time: 06/19/2017 10:31:11 Reading Location: [facility] Radiology Reading Room POCT-GLUCOSE [id number] 07 :32:00 Test Item Value Reference Range Comments POC-GLUCOSE METER (BEAKER) 163 mg/dL 70-110 TESTED AT [address] (test bmki=3876) [place] [address] [id number] 06:28:00 Test Item Value Reference Range Comments PHOSPHORUS (BEAKER) (test lonq=042) 4.0 mg/dL 2.3-4.7 [id number] 06:28:00 Test Item Value Reference Range Comments MAGNESIUM (BEAKER) (test osed=252) 1.9 mg/dL 1.6-2.6 BASIC METABOLIC [id number] 06:28:00 Test Item Value Reference Range Comments SODIUM (BEAKER) (test 134 meq/L 136-145 bmwl=684) POTASSIUM (BEAKER) (test 4.2 meq/L 3.5-5.1 oxei=952) CHLORIDE (BEAKER) (test 102 meq/L 98-107 yblx=765) CO2 (BEAKER) (test 24 meq/L 22-29 adgb=208) BLOOD UREA NITROGEN 17 mg/dL 7-21 (BEAKER) (test ttkc=814) CREATININE (BEAKER) (test 1.70 mg/dL 0.57-1.25 vgyw=193) GLUCOSE RANDOM (BEAKER) 158 mg/dL 70-105 (test eomq=422) CALCIUM (BEAKER) (test 8.9 mg/dL 8.4-10.2 hgim=391) EGFR (BEAKER) (test 31 mL/min/1.73 sq m ESTIMATED GFR IS NOT uvmg=8230) ACCURATE CREATININE CLEARANCE IN PREDICTING GLOMERULAR FILTRATION RATE. ESTIMATED GFR IS NOT APPLICABLE FOR DIALYSIS PATIENTS. CBC W/PLT COUNT & AUTO [id number] 06:27:00 Test Item Value Reference Range Comments WHITE BLOOD CELL COUNT (BEAKER) (test zlgr=972) 13.6 K/ L 3.5-10.5 RED BLOOD CELL COUNT (BEAKER) (test girr=922) 4.09 M/ L 3.93-5.22 HEMOGLOBIN (BEAKER) (test frwh=385) 11.3 GM/DL 11.2-15.7 HEMATOCRIT (BEAKER) (test rcyj=502) 35.3 % 34.1-44.9 MEAN CORPUSCULAR VOLUME (BEAKER) (test byen=617) 86.3 fL 79.4-94.8 MEAN CORPUSCULAR HEMOGLOBIN (BEAKER) (test 27.6 pg 25.6-32.2 jjar=976) MEAN CORPUSCULAR HEMOGLOBIN CONC (BEAKER) (test 32.0 GM/DL 32.2-35.5 ewfa=847) RED CELL DISTRIBUTION WIDTH (BEAKER) (test 14.5 % 11.7-14.4 duhl=049) PLATELET COUNT (BEAKER) (test uido=766) 218 K/CU MM 150-450 MEAN PLATELET VOLUME (BEAKER) (test idjl=853) 9.1 fL 9.4-12.3 NUCLEATED RED BLOOD CELLS (BEAKER) (test 0 /100 WBC 0-0 tacb=303) NEUTROPHILS RELATIVE PERCENT (BEAKER) (test 82 % elkm=014) LYMPHOCYTES RELATIVE PERCENT (BEAKER) (test 7 % rblu=672) MONOCYTES RELATIVE PERCENT (BEAKER) (test 10 % yqst=938) EOSINOPHILS RELATIVE PERCENT (BEAKER) (test 1 % btpq=879) BASOPHILS RELATIVE PERCENT (BEAKER) (test 0 % rhdf=876) NEUTROPHILS ABSOLUTE COUNT (BEAKER) (test 11.10 K/ L 1.56-6.13 vxva=454) LYMPHOCYTES ABSOLUTE COUNT (BEAKER) (test 0.92 K/ L 1.18-3.74 tyev=817) MONOCYTES ABSOLUTE COUNT (BEAKER) (test 1.30 K/ L 0.24-0.36 kkwv=913) EOSINOPHILS ABSOLUTE COUNT (BEAKER) (test 0.07 K/ L 0.04-0.36 fukc=934) BASOPHILS ABSOLUTE COUNT (BEAKER) (test 0.03 K/ L 0.01-0.08 oklf=025) IMMATURE GRANULOCYTES-RELATIVE PERCENT (BEAKER) 1 % 0-1 (test mhxh=1184) POCT-GLUCOSE [id number] 21:24:00 Test Item Value Reference Range Comments POC-GLUCOSE METER (BEAKER) 172 mg/dL 70-110 TESTED AT [address] (test cevu=0467) [place] [address] POCT-GLUCOSE [id number] 17:00:00 Test Item Value Reference Range Comments POC-GLUCOSE METER (BEAKER) 164 mg/dL 70-110 TESTED AT [address] (test hwqn=7028) [place] [address] POCT-GLUCOSE [id number] 13:16:00 Test Item Value Reference Range Comments POC-GLUCOSE METER (BEAKER) 168 mg/dL 70-110 TESTED AT [address] (test avje=7734) [place] [address] POCT-GLUCOSE [id number] 07:26:00 Test Item Value Reference Range Comments POC-GLUCOSE METER (BEAKER) 164 mg/dL 70-110 TESTED AT [address] (test lipx=4800) [place] [id number] BASIC METABOLIC [id number] 05:05:00 Test Item Value Reference Range Comments SODIUM (BEAKER) (test 134 meq/L 136-145 vpoc=206) POTASSIUM (BEAKER) (test 4.9 meq/L 3.5-5.1 oqqe=479) CHLORIDE (BEAKER) (test 102 meq/L 98-107 zslh=353) CO2 (BEAKER) (test 22 meq/L 22-29 hsyz=378) BLOOD UREA NITROGEN 18 mg/dL 7-21 (BEAKER) (test hcoz=594) CREATININE (BEAKER) (test 1.42 mg/dL 0.57-1.25 qqsk=341) GLUCOSE RANDOM (BEAKER) 179 mg/dL 70-105 (test xegu=350) CALCIUM (BEAKER) (test 9.3 mg/dL 8.4-10.2 oype=238) EGFR (BEAKER) (test 38 mL/min/1.73 sq m ESTIMATED GFR IS NOT xydh=6927) ACCURATE CREATININE CLEARANCE IN PREDICTING GLOMERULAR FILTRATION RATE. ESTIMATED GFR IS NOT APPLICABLE FOR DIALYSIS PATIENTS. [id number] 05:04:00 Test Item Value Reference Range Comments PHOSPHORUS (BEAKER) (test mvaw=162) 4.8 mg/dL 2.3-4.7 [id number] 05:04:00 Test Item Value Reference Range Comments MAGNESIUM (BEAKER) (test fusv=275) 1.6 mg/dL 1.6-2.6 CBC W/PLT COUNT & AUTO [id number] 03:57:00 Test Item Value Reference Range Comments WHITE BLOOD CELL COUNT (BEAKER) (test pxpo=084) 15.5 K/ L 3.5-10.5 RED BLOOD CELL COUNT (BEAKER) (test sjih=428) 4.45 M/ L 3.93-5.22 HEMOGLOBIN (BEAKER) (test zcns=725) 12.2 GM/DL 11.2-15.7 HEMATOCRIT (BEAKER) (test boak=449) 38.2 % 34.1-44.9 MEAN CORPUSCULAR VOLUME (BEAKER) (test xfuz=804) 85.8 fL 79.4-94.8 MEAN CORPUSCULAR HEMOGLOBIN (BEAKER) (test 27.4 pg 25.6-32.2 ccfv=170) MEAN CORPUSCULAR HEMOGLOBIN CONC (BEAKER) (test 31.9 GM/DL 32.2-35.5 xbrs=368) RED CELL DISTRIBUTION WIDTH (BEAKER) (test 14.5 % 11.7-14.4 jhjd=503) PLATELET COUNT (BEAKER) (test zczd=397) 269 K/CU MM 150-450 MEAN PLATELET VOLUME (BEAKER) (test ivww=828) 9.1 fL 9.4-12.3 NUCLEATED RED BLOOD CELLS (BEAKER) (test 0 /100 WBC 0-0 hqgv=310) NEUTROPHILS RELATIVE PERCENT (BEAKER) (test 76 % qjfb=395) LYMPHOCYTES RELATIVE PERCENT (BEAKER) (test 13 % pwnv=676) MONOCYTES RELATIVE PERCENT (BEAKER) (test 9 % dgsk=266) EOSINOPHILS RELATIVE PERCENT (BEAKER) (test 1 % lzse=865) BASOPHILS RELATIVE PERCENT (BEAKER) (test 0 % kiqo=644) NEUTROPHILS ABSOLUTE COUNT (BEAKER) (test 11.79 K/ L 1.56-6.13 ujjb=614) LYMPHOCYTES ABSOLUTE COUNT (BEAKER) (test 2.02 K/ L 1.18-3.74 xcjf=177) MONOCYTES ABSOLUTE COUNT (BEAKER) (test 1.35 K/ L 0.24-0.36 tndd=255) EOSINOPHILS ABSOLUTE COUNT (BEAKER) (test 0.21 K/ L 0.04-0.36 htha=783) BASOPHILS ABSOLUTE COUNT (BEAKER) (test 0.04 K/ L 0.01-0.08 cysq=883) IMMATURE GRANULOCYTES-RELATIVE PERCENT (BEAKER) 1 % 0-1 (test sqeu=1291) CT, [id number] 20:27:00Reason for exam:->flank pain s/p pyeloplastyFINAL REPORT CT, ABDOMEN \\T\\ PELVIS, WITHOUT IV CONTRAST INDICATION: Flank pain, stone disease suspectedflank pain s/p pyeloplasty COMPARISON: March 03, 2017 TECHNIQUE: CT of the abdomen and pelvis WITHOUT intravenous contrast. DOSE REDUCTION: Dose modulation, iterative reconstruction, and/or weight-based adjustment of the mA/kV was utilized to reduce the radiation dose to as low as reasonably achievable. FINDINGS:NOTE: Absence of intravenous contrast decreases sensitivity forfocal lesions and vascular pathology. There is a moderate to large volume subcutaneous emphysema along the right side of the image volume extending from the level of the manubrium anteriorly/laterallyto the level of the pelvis where crosses the midline within the pannus. Additionally, there is punctate gas within the peritoneal cavity anterior to the liver. Since the prior study, there has been interval development of right hydronephrosis with placement of double-J ureteric stent, grossly appropriately positioned. Right perinephric stranding is evident. There is no visible obstructing stone. Stable left sided cystic hydronephrosis without hydroureter. Coarse calcifications are noted in the left renal parenchyma. Stable fatty infiltration of the liver the gallbladder, pancreas, spleen and adrenal glands are unremarkable for noncontrast technique. Appearance of the stomach and small bowel are within normal limits. There is fecal distention throughout the colon. Distal diverticular disease is evident, however there is no focal secondary signs of diverticulitis. Vascular and osseous structures reveal no acute abnormalities. IMPRESSION: Limited noncontrast evaluation revealing recent double-J ureteric stent placement on the right with moderate right hydronephrosis. Moderate volume subcutaneousemphysema with minimal extension into the peritoneal cavity, compatible with provided history of recent instrumentation. Stable left hydronephrosis. Signed: JR Ambrosio Robert MDReport Verified Date/Time: 06/17/2017 20:27:27 Reading Location: [address] Reading Room CBC ( HEMOGRAM ONLY)2017-06-17 20:19:00 Test Item Value Reference Range Comments WHITE BLOOD CELL COUNT (BEAKER) (test 16.5 K/ L 4.0-10.0 xpuo=013) RED BLOOD CELL COUNT (BEAKER) (test 4.75 M/ L 4.00-5.00 qbdn=215) HEMOGLOBIN (BEAKER) (test lafn=102) 13.6 GM/DL 12.0-15.0 HEMATOCRIT (BEAKER) (test sghv=446) 40.9 % 36.0-45.0 MEAN CORPUSCULAR VOLUME (BEAKER) (test 86.1 fL 82.0-99.0 owpp=034) MEAN CORPUSCULAR HEMOGLOBIN (BEAKER) 28.6 pg 27.0-33.0 (test ejtf=310) MEAN CORPUSCULAR HEMOGLOBIN CONC 33.3 GM/DL 32.0-36.0 (BEAKER) (test nuqm=135) RED CELL DISTRIBUTION WIDTH (BEAKER) % 10.3-14.2 TEST NOT PERFORMED (test hbkq=701) PLATELET COUNT (BEAKER) (test 321 K/CU MM 150-430 kxwp=102) BASIC METABOLIC [id number] 20:18:00 Test Item Value Reference Range Comments SODIUM (BEAKER) (test 136 meq/L 135-148 clcx=642) POTASSIUM (BEAKER) (test 3.9 meq/L 3.6-5.5 lpys=274) CHLORIDE (BEAKER) (test 98 meq/L 98-106 flks=878) CO2 (BEAKER) (test 26 meq/L 24-32 vbta=251) BLOOD UREA NITROGEN 15 mg/dL 10-26 (BEAKER) (test cpgv=732) CREATININE (BEAKER) (test 1.30 mg/dL 0.50-1.20 ntra=737) GLUCOSE RANDOM (BEAKER) 155 mg/dL 70-110 (test cjum=887) CALCIUM (BEAKER) (test 9.9 mg/dL 8.5-10.5 ssqy=674) EGFR (BEAKER) (test 42 mL/min/1.73 sq m ESTIMATED GFR IS NOT omfu=9968) ACCURATE CREATININE CLEARANCE IN PREDICTING GLOMERULAR FILTRATION RATE. ESTIMATED GFR IS NOT APPLICABLE FOR DIALYSIS PATIENTS. POCT-GLUCOSE [id number] 12:06:00 Test Item Value Reference Range Comments POC-GLUCOSE METER (BEAKER) 160 mg/dL 70-110 TESTED AT [address] (test qquo=6712) [place] [address] POCT-GLUCOSE [id number] 07:33:00 Test Item Value Reference Range Comments POC-GLUCOSE METER (BEAKER) 246 mg/dL 70-110 TESTED AT [address] (test elnz=6287) [place] [id number] POCT-GLUCOSE [id number] 22:02:00 Test Item Value Reference Range Comments POC-GLUCOSE METER (BEAKER) 206 mg/dL 70-110 TESTED AT [address] (test oaph=1905) [place] [address] POCT-GLUCOSE [id number] 17:55:00 Test Item Value Reference Range Comments POC-GLUCOSE METER (BEAKER) 265 mg/dL 70-110 TESTED AT [address] (test oxgn=7771) [place] [address] POCT-GLUCOSE [id number] 08:39:00 Test Item Value Reference Range Comments POC-GLUCOSE METER (BEAKER) 189 mg/dL 70-110 TESTED AT [facility] [address] [facility] (test bmkt=4561) [facility] [address] POCT-GLUCOSE [id number] 07:44:00 Test Item Value Reference Range Comments POC-GLUCOSE METER (BEAKER) 173 mg/dL 70-110 TESTED AT [facility] [address] [facility] (test mgkn=8003) [facility] [address] BASIC METABOLIC [id number] 06:49:00 Test Item Value Reference Range Comments SODIUM (BEAKER) (test 138 meq/L 136-145 hctz=539) POTASSIUM (BEAKER) (test 4.1 meq/L 3.5-5.1 hjfi=920) CHLORIDE (BEAKER) (test 106 meq/L 98-107 xjlj=554) CO2 (BEAKER) (test 24 meq/L 22-29 itjs=034) BLOOD UREA NITROGEN 15 mg/dL 7-21 (BEAKER) (test nwbq=969) CREATININE (BEAKER) (test 0.75 mg/dL 0.57-1.25 kwgx=313) GLUCOSE RANDOM (BEAKER) 166 mg/dL 70-105 (test mtpm=495) CALCIUM (BEAKER) (test 8.8 mg/dL 8.4-10.2 xfti=236) EGFR (BEAKER) (test 80 mL/min/1.73 sq m ESTIMATED GFR IS NOT gvmp=3990) ACCURATE CREATININE CLEARANCE IN PREDICTING GLOMERULAR FILTRATION RATE. ESTIMATED GFR IS NOT APPLICABLE FOR DIALYSIS PATIENTS. HEMOGLOBIN AND [id number] 06:28:00 Test Item Value Reference Range Comments HEMOGLOBIN (BEAKER) (test wzej=807) 12.3 GM/DL 11.2-15.7 HEMATOCRIT (BEAKER) (test quuv=634) 38.8 % 34.1-44.9 BASIC METABOLIC [id number] 11:05:00 Test Item Value Reference Range Comments SODIUM (BEAKER) (test 139 meq/L 136-145 wvmw=411) POTASSIUM (BEAKER) (test 4.2 meq/L 3.5-5.1 Specimen slightly jbwq=322) hemolyzed CHLORIDE (BEAKER) (test 107 meq/L 98-107 rzuv=360) CO2 (BEAKER) (test 24 meq/L 22-29 tnjd=189) BLOOD UREA NITROGEN 19 mg/dL 7-21 (BEAKER) (test wjqg=636) CREATININE (BEAKER) (test 0.81 mg/dL 0.57-1.25 Specimen slightly zvtx=182) hemolyzed GLUCOSE RANDOM (BEAKER) 205 mg/dL 70-105 (test hhtk=229) CALCIUM (BEAKER) (test 9.3 mg/dL 8.4-10.2 ivcc=478) EGFR (BEAKER) (test 73 mL/min/1.73 sq m ESTIMATED GFR IS NOT kjmk=2379) ACCURATE CREATININE CLEARANCE IN PREDICTING GLOMERULAR FILTRATION RATE. ESTIMATED GFR IS NOT APPLICABLE FOR DIALYSIS PATIENTS. HEMOGLOBIN AND [id number] 10:48:00 Test Item Value Reference Range Comments HEMOGLOBIN (BEAKER) (test zapn=946) 13.4 GM/DL 11.2-15.7 HEMATOCRIT (BEAKER) (test vpaq=867) 41.7 % 34.1-44.9 POCT-GLUCOSE [id number] 10:25:00 Test Item Value Reference Range Comments POC-GLUCOSE METER (BEAKER) 216 mg/dL 70-110 TESTED AT [facility] [address] [facility] (test vagy=6581) [facility] [address] TISSUE [id number] 12:11:00Surgical Pathology Report Case: [id number] Authorizing Provider: Susan Ivory MD Collected: 05/02/2017 1147 Ordering Location: [facility] Endoscopy Received: 05/02/2017 1533 Services Pathologist: Tung Connor MD Specimens: A) - Polyp, Colon - Right/Ascending B) -Polyp, Colon - Rectum A. COLON, RIGHT /ASCENDING POLYP, BIOPSY: - FRAGMENT OF TUBULAR ADENOMA (x1) - SEPARATE FRAGMENTS OF UNREMARKABLE COLONIC MUCOSAB. RECTUM, POLYP, BIOPSY: - FRAGMENTS OF HYPERPLASTIC POLYP (x3) Signing PathologistDirect Phone Line: [phone] signed by Tung Connor MD on 05/03/2017 at 12:11 [id number], large intestine without perforation or abscess without bleeding, Uretericfistula A. Right ascending colon polyp; B. Rectum colon polypThe specimen is received in two containers of formalin both labeled with the patient's information. Part A labeled "right/ascending colon polyp" consists of 0.4 cm fragment of camacho tissue, submitted entirely A1. Part B labeled "rectum colon polyp" consists of a 0.4 cm round fragment of camacho tissue, submitted B1. CG/pl Performed.URINALYSIS W/ [id number] 14:08:00 Test Item Value Reference Range Comments COLOR (BEAKER) (test ksdn=502) Yellow CLARITY (BEAKER) (test zlyz=324) Hazy SPECIFIC GRAVITY UA (BEAKER) (test pmtt=415) 1.015 1.001-1.035 PH UA (BEAKER) (test qvmh=342) 5.5 5.0-8.0 PROTEIN UA (BEAKER) (test sigr=835) 10 mg/dL Negative GLUCOSE UA (BEAKER) (test ztig=464) Negative Negative KETONES UA (BEAKER) (test kdzk=110) Negative Negative BILIRUBIN UA (BEAKER) (test qybc=130) Negative Negative BLOOD UA (BEAKER) (test qiki=980) Moderate Negative NITRITE UA (BEAKER) (test dagb=367) Negative Negative LEUKOCYTE ESTERASE UA (BEAKER) (test lvhb=278) Large Negative UROBILINOGEN UA (BEAKER) (test gccr=152) 0.2 mg/dL 0.2-1.0 RBC UA (BEAKER) (test yyse=000) 46 /HPF WBC UA (BEAKER) (test kviu=362) 53 /HPF BACTERIA (BEAKER) (test mery=689) Rare MUCUS (BEAKER) (test tcum=3851) Rare SQUAMOUS EPITHELIAL (BEAKER) (test psvq=767) 1 /HPF HYALINE CASTS (BEAKER) (test aarl=766) 2 /LPF SOURCE(BEAKER) (test hmxr=4757) BASIC METABOLIC [id number] 12:36:00 Test Item Value Reference Range Comments SODIUM (BEAKER) (test 140 meq/L 136-145 qjbg=330) POTASSIUM (BEAKER) (test 4.0 meq/L 3.5-5.1 uloa=429) CHLORIDE (BEAKER) (test 106 meq/L 98-107 wska=811) CO2 (BEAKER) (test 24 meq/L 22-29 yroj=339) BLOOD UREA NITROGEN 16 mg/dL 7-21 (BEAKER) (test vfzd=292) CREATININE (BEAKER) (test 0.81 mg/dL 0.57-1.25 rwzi=467) GLUCOSE RANDOM (BEAKER) 146 mg/dL 70-105 (test fjuf=818) CALCIUM (BEAKER) (test 9.8 mg/dL 8.4-10.2 shdp=386) EGFR (BEAKER) (test 73 mL/min/1.73 sq m ESTIMATED GFR IS NOT bfdm=9049) ACCURATE CREATININE CLEARANCE IN PREDICTING GLOMERULAR FILTRATION RATE. ESTIMATED GFR IS NOT APPLICABLE FOR DIALYSIS PATIENTS. [id number] 11:58:00 Test Item Value Reference Range Comments PARTIAL THROMBOPLASTIN TIME (BEAKER) (test 35.7 seconds 22.5-36.0 kdlx=503) PROTHROMBIN TIME/[id number] 11:57:00 Test Item Value Reference Range Comments PROTIME (BEAKER) (test xhjz=977) 13.6 seconds 11.7-14.7 INR (BEAKER) (test iwoi=474) 1.1 <=5.9 RECOMMENDED COUMADIN/WARFARIN INR THERAPY RANGESSTANDARD DOSE: 2.0 - 3.0 Includes: PROPHYLAXIS forvenous thrombosis, systemic embolization; TREATMENT for venous thrombosis and/or pulmonary embolus.HIGH RISK: Target INR is 2.5-3.5 for patients with mechanical heart valves.CBC W/PLT COUNT & AUTO [id number] 11:50:00 Test Item Value Reference Range Comments WHITE BLOOD CELL COUNT (BEAKER) (test velw=205) 8.0 K/ L 3.5-10.5 RED BLOOD CELL COUNT (BEAKER) (test lidz=652) 5.04 M/ L 3.93-5.22 HEMOGLOBIN (BEAKER) (test cmgu=606) 13.8 GM/DL 11.2-15.7 HEMATOCRIT (BEAKER) (test uwiy=954) 43.3 % 34.1-44.9 MEAN CORPUSCULAR VOLUME (BEAKER) (test ztww=423) 85.9 fL 79.4-94.8 MEAN CORPUSCULAR HEMOGLOBIN (BEAKER) (test 27.4 pg 25.6-32.2 efph=050) MEAN CORPUSCULAR HEMOGLOBIN CONC (BEAKER) (test 31.9 GM/DL 32.2-35.5 cxkz=643) RED CELL DISTRIBUTION WIDTH (BEAKER) (test 15.3 % 11.7-14.4 ymar=445) PLATELET COUNT (BEAKER) (test kjwe=429) 305 K/CU MM 150-450 MEAN PLATELET VOLUME (BEAKER) (test upfd=033) 9.0 fL 9.4-12.3 NUCLEATED RED BLOOD CELLS (BEAKER) (test 0 /100 WBC 0-0 irmt=453) NEUTROPHILS RELATIVE PERCENT (BEAKER) (test 57 % ykbb=639) LYMPHOCYTES RELATIVE PERCENT (BEAKER) (test 33 % ofgn=922) MONOCYTES RELATIVE PERCENT (BEAKER) (test 7 % vcul=188) EOSINOPHILS RELATIVE PERCENT (BEAKER) (test 2 % wnmw=362) BASOPHILS RELATIVE PERCENT (BEAKER) (test 1 % jwdh=496) NEUTROPHILS ABSOLUTE COUNT (BEAKER) (test 4.54 K/ L 1.56-6.13 tiqf=312) LYMPHOCYTES ABSOLUTE COUNT (BEAKER) (test 2.63 K/ L 1.18-3.74 iysv=317) MONOCYTES ABSOLUTE COUNT (BEAKER) (test 0.52 K/ L 0.24-0.36 cwvt=622) EOSINOPHILS ABSOLUTE COUNT (BEAKER) (test 0.18 K/ L 0.04-0.36 zeau=728) BASOPHILS ABSOLUTE COUNT (BEAKER) (test 0.07 K/ L 0.01-0.08 tdfi=569) IMMATURE GRANULOCYTES-RELATIVE PERCENT (BEAKER) 1 % 0-1 (test vmjc=8229) POCT-GLUCOSE [id number] 17:46:00 Test Item Value Reference Range Comments POC-GLUCOSE METER (BEAKER) 201 mg/dL 70-110 TESTED AT [address] (test szan=6675) [facility] [id number] POCT-GLUCOSE [id number] 14:15:00 Test Item Value Reference Range Comments POC-GLUCOSE METER (BEAKER) 152 mg/dL 70-110 TESTED AT [address] (test vhpr=2711) [facility] [address] POCT-GLUCOSE [id number] 08:21:00 Test Item Value Reference Range Comments POC-GLUCOSE METER (BEAKER) 149 mg/dL 70-110 TESTED AT [address] (test ojeq=1588) [facility] [address] POCT-GLUCOSE [id number] 21:11:00 Test Item Value Reference Range Comments POC-GLUCOSE METER (BEAKER) 201 mg/dL 70-110 TESTED AT [address] (test zsrf=1494) [place] [id number] POCT-GLUCOSE [id number] 18:48:00 Test Item Value Reference Range Comments POC-GLUCOSE METER (BEAKER) 188 mg/dL 70-110 TESTED AT [address] (test jvjd=1054) [place] [id number] POCT-GLUCOSE [id number] 13:32:00 Test Item Value Reference Range Comments POC-GLUCOSE METER (BEAKER) 151 mg/dL 70-110 TESTED AT [address] (test nqec=3346) [place] [id number] POCT-GLUCOSE [id number] 08:31:00 Test Item Value Reference Range Comments POC-GLUCOSE METER (BEAKER) 149 mg/dL 70-110 TESTED AT [address] (test keif=3981) [facility] [address] BASIC METABOLIC [id number] 07:11:00 Test Item Value Reference Range Comments SODIUM (BEAKER) (test 138 meq/L 136-145 bnps=919) POTASSIUM (BEAKER) (test 3.5 meq/L 3.5-5.1 cdil=924) CHLORIDE (BEAKER) (test 103 meq/L 98-107 mrdr=879) CO2 (BEAKER) (test 24 meq/L 22-29 pqhl=381) BLOOD UREA NITROGEN 8 mg/dL 7-21 (BEAKER) (test qmaw=889) CREATININE (BEAKER) (test 0.90 mg/dL 0.57-1.25 vlcz=161) GLUCOSE RANDOM (BEAKER) 153 mg/dL 70-105 (test decb=536) CALCIUM (BEAKER) (test 9.7 mg/dL 8.4-10.2 dgsr=773) EGFR (BEAKER) (test 65 mL/min/1.73 sq m ESTIMATED GFR IS NOT favb=4198) ACCURATE CREATININE CLEARANCE IN PREDICTING GLOMERULAR FILTRATION RATE. ESTIMATED GFR IS NOT APPLICABLE FOR DIALYSIS PATIENTS. CBC W/PLT COUNT & AUTO [id number] 06:53:00 Test Item Value Reference Range Comments WHITE BLOOD CELL COUNT (BEAKER) (test xrxf=297) 9.1 K/ L 3.5-10.5 RED BLOOD CELL COUNT (BEAKER) (test txge=719) 4.17 M/ L 3.93-5.22 HEMOGLOBIN (BEAKER) (test zfjo=886) 11.5 GM/DL 11.2-15.7 HEMATOCRIT (BEAKER) (test sjmn=210) 36.1 % 34.1-44.9 MEAN CORPUSCULAR VOLUME (BEAKER) (test ahel=686) 86.6 fL 79.4-94.8 MEAN CORPUSCULAR HEMOGLOBIN (BEAKER) (test 27.6 pg 25.6-32.2 blik=430) MEAN CORPUSCULAR HEMOGLOBIN CONC (BEAKER) (test 31.9 GM/DL 32.2-35.5 rfin=083) RED CELL DISTRIBUTION WIDTH (BEAKER) (test 13.9 % 11.7-14.4 ehva=907) PLATELET COUNT (BEAKER) (test iysq=639) 389 K/CU MM 150-450 MEAN PLATELET VOLUME (BEAKER) (test aimv=571) 8.8 fL 9.4-12.3 NUCLEATED RED BLOOD CELLS (BEAKER) (test 0 /100 WBC 0-0 xqly=318) NEUTROPHILS RELATIVE PERCENT (BEAKER) (test 60 % vjua=716) LYMPHOCYTES RELATIVE PERCENT (BEAKER) (test 22 % kfdw=905) MONOCYTES RELATIVE PERCENT (BEAKER) (test 12 % puwf=938) EOSINOPHILS RELATIVE PERCENT (BEAKER) (test 3 % ygek=233) BASOPHILS RELATIVE PERCENT (BEAKER) (test 1 % xhyy=027) NEUTROPHILS ABSOLUTE COUNT (BEAKER) (test 5.46 K/ L 1.56-6.13 orsp=122) LYMPHOCYTES ABSOLUTE COUNT (BEAKER) (test 2.04 K/ L 1.18-3.74 wnjy=969) MONOCYTES ABSOLUTE COUNT (BEAKER) (test 1.09 K/ L 0.24-0.36 itds=926) EOSINOPHILS ABSOLUTE COUNT (BEAKER) (test 0.29 K/ L 0.04-0.36 bjjq=541) BASOPHILS ABSOLUTE COUNT (BEAKER) (test 0.06 K/ L 0.01-0.08 msdc=485) IMMATURE GRANULOCYTES-RELATIVE PERCENT (BEAKER) 2 % 0-1 (test zxjv=3803) POCT-GLUCOSE [id number] 21:07:00 Test Item Value Reference Range Comments POC-GLUCOSE METER (BEAKER) 224 mg/dL 70-110 TESTED AT [address] (test xrrl=4446) [place] [id number] POCT-GLUCOSE [id number] 17:14:00 Test Item Value Reference Range Comments POC-GLUCOSE METER (BEAKER) 121 mg/dL 70-110 TESTED AT [address] (test pfsp=1434) [place] [address] POCT-GLUCOSE [id number] 11:03:00 Test Item Value Reference Range Comments POC-GLUCOSE METER (BEAKER) 161 mg/dL 70-110 TESTED AT [address] (test vkvu=9062) [place] [address] POCT-GLUCOSE [id number] 07:24:00 Test Item Value Reference Range Comments POC-GLUCOSE METER (BEAKER) 191 mg/dL 70-110 TESTED AT [address] (test yqph=8637) [place] [address] BASIC METABOLIC [id number] 04:45:00 Test Item Value Reference Range Comments SODIUM (BEAKER) (test 137 meq/L 136-145 bnkz=950) POTASSIUM (BEAKER) (test 3.3 meq/L 3.5-5.1 ertz=939) CHLORIDE (BEAKER) (test 102 meq/L 98-107 ctqb=144) CO2 (BEAKER) (test 24 meq/L 22-29 llpr=997) BLOOD UREA NITROGEN 8 mg/dL 7-21 (BEAKER) (test eeea=211) CREATININE (BEAKER) (test 0.91 mg/dL 0.57-1.25 kkes=139) GLUCOSE RANDOM (BEAKER) 148 mg/dL 70-105 (test mgee=852) CALCIUM (BEAKER) (test 9.5 mg/dL 8.4-10.2 ijsm=419) EGFR (BEAKER) (test 64 mL/min/1.73 sq m ESTIMATED GFR IS NOT yvep=9985) ACCURATE CREATININE CLEARANCE IN PREDICTING GLOMERULAR FILTRATION RATE. ESTIMATED GFR IS NOT APPLICABLE FOR DIALYSIS PATIENTS. POCT-GLUCOSE [id number] 21:03:00 Test Item Value Reference Range Comments POC-GLUCOSE METER (BEAKER) 164 mg/dL 70-110 TESTED AT [address] (test zusi=3766) [place] [address] BLOOD [id number] 18:00:00 Test Item Value Reference Range Comments CULTURE (BEAKER) (test gwcu=5012) No growth in 5 days BLOOD [id number] 18:00:00 Test Item Value Reference Range Comments CULTURE (BEAKER) (test lrkj=2407) No growth in 5 days POCT-GLUCOSE [id number] 17:18:00 Test Item Value Reference Range Comments POC-GLUCOSE METER (BEAKER) 154 mg/dL 70-110 TESTED AT [address] (test xrtg=9616) [place] [address] POCT-GLUCOSE [id number] 11:29:00 Test Item Value Reference Range Comments POC-GLUCOSE METER (BEAKER) 117 mg/dL 70-110 TESTED AT [address] (test yrxi=9531) [place] [address] URINE [id number] 09:54:00 Test Item Value Reference Range Comments CULTURE (BEAKER) (test cxwr=3770) No growth POCT-GLUCOSE [id number] 07:34:00 Test Item Value Reference Range Comments POC-GLUCOSE METER (BEAKER) 120 mg/dL 70-110 TESTED AT [address] (test qxuy=4072) [place] [address] BASIC METABOLIC [id number] 05:18:00 Test Item Value Reference Range Comments SODIUM (BEAKER) (test 138 meq/L 136-145 fwth=632) POTASSIUM (BEAKER) (test 3.9 meq/L 3.5-5.1 gxwc=862) CHLORIDE (BEAKER) (test 104 meq/L 98-107 vbay=927) CO2 (BEAKER) (test 26 meq/L 22-29 zwlw=354) BLOOD UREA NITROGEN 4 mg/dL 7-21 (BEAKER) (test ulaf=316) CREATININE (BEAKER) (test 0.85 mg/dL 0.57-1.25 fozo=622) GLUCOSE RANDOM (BEAKER) 110 mg/dL 70-105 (test zpsg=153) CALCIUM (BEAKER) (test 9.7 mg/dL 8.4-10.2 dkhi=917) EGFR (BEAKER) (test 69 mL/min/1.73 sq m ESTIMATED GFR IS NOT melz=0397) ACCURATE CREATININE CLEARANCE IN PREDICTING GLOMERULAR FILTRATION RATE. ESTIMATED GFR IS NOT APPLICABLE FOR DIALYSIS PATIENTS. CBC W/PLT COUNT & AUTO [id number] 04:59:00 Test Item Value Reference Range Comments WHITE BLOOD CELL COUNT (BEAKER) (test kazy=521) 9.6 K/ L 3.5-10.5 RED BLOOD CELL COUNT (BEAKER) (test uhwf=606) 3.96 M/ L 3.93-5.22 HEMOGLOBIN (BEAKER) (test vzhn=777) 11.1 GM/DL 11.2-15.7 HEMATOCRIT (BEAKER) (test xpzo=787) 34.4 % 34.1-44.9 MEAN CORPUSCULAR VOLUME (BEAKER) (test zwhi=935) 86.9 fL 79.4-94.8 MEAN CORPUSCULAR HEMOGLOBIN (BEAKER) (test 28.0 pg 25.6-32.2 ozqc=077) MEAN CORPUSCULAR HEMOGLOBIN CONC (BEAKER) (test 32.3 GM/DL 32.2-35.5 sxgi=161) RED CELL DISTRIBUTION WIDTH (BEAKER) (test 13.5 % 11.7-14.4 hczk=442) PLATELET COUNT (BEAKER) (test thtb=487) 338 K/CU MM 150-450 MEAN PLATELET VOLUME (BEAKER) (test lodo=358) 8.6 fL 9.4-12.3 NUCLEATED RED BLOOD CELLS (BEAKER) (test 0 /100 WBC 0-0 kdmx=768) NEUTROPHILS RELATIVE PERCENT (BEAKER) (test 62 % busu=440) LYMPHOCYTES RELATIVE PERCENT (BEAKER) (test 22 % atcl=530) MONOCYTES RELATIVE PERCENT (BEAKER) (test 12 % zrsg=357) EOSINOPHILS RELATIVE PERCENT (BEAKER) (test 4 % ixkm=560) BASOPHILS RELATIVE PERCENT (BEAKER) (test 1 % tmwz=921) NEUTROPHILS ABSOLUTE COUNT (BEAKER) (test 5.93 K/ L 1.56-6.13 bwhr=388) LYMPHOCYTES ABSOLUTE COUNT (BEAKER) (test 2.07 K/ L 1.18-3.74 leuw=656) MONOCYTES ABSOLUTE COUNT (BEAKER) (test 1.13 K/ L 0.24-0.36 mkst=070) EOSINOPHILS ABSOLUTE COUNT (BEAKER) (test 0.35 K/ L 0.04-0.36 ezdb=839) BASOPHILS ABSOLUTE COUNT (BEAKER) (test 0.05 K/ L 0.01-0.08 cvmh=441) IMMATURE GRANULOCYTES-RELATIVE PERCENT (BEAKER) 1 % 0-1 (test ylgs=0200) POCT-GLUCOSE [id number] 21:33:00 Test Item Value Reference Range Comments POC-GLUCOSE METER (BEAKER) 114 mg/dL 70-110 TESTED AT [address] (test apqx=9107) [facility] [address] POCT-GLUCOSE [id number] 17:43:00 Test Item Value Reference Range Comments POC-GLUCOSE METER (BEAKER) 177 mg/dL 70-110 TESTED AT [address] (test qqxa=4978) [facility] [address] POCT-GLUCOSE [id number] 11:19:00 Test Item Value Reference Range Comments POC-GLUCOSE METER (BEAKER) 183 mg/dL 70-110 TESTED AT [address] (test jonx=6087) [facility] [address] POCT-GLUCOSE [id number] 07:56:00 Test Item Value Reference Range Comments POC-GLUCOSE METER (BEAKER) 131 mg/dL 70-110 TESTED AT [address] (test adky=6438) [facility] [address] BASIC METABOLIC [id number] 07:52:00 Test Item Value Reference Range Comments SODIUM (BEAKER) (test 136 meq/L 136-145 vtoz=180) POTASSIUM (BEAKER) (test 3.9 meq/L 3.5-5.1 evyn=235) CHLORIDE (BEAKER) (test 103 meq/L 98-107 csfb=447) CO2 (BEAKER) (test 24 meq/L 22-29 hzdp=653) BLOOD UREA NITROGEN 7 mg/dL 7-21 (BEAKER) (test wwpx=591) CREATININE (BEAKER) (test 0.87 mg/dL 0.57-1.25 xads=625) GLUCOSE RANDOM (BEAKER) 106 mg/dL 70-105 (test wyuh=846) CALCIUM (BEAKER) (test 9.1 mg/dL 8.4-10.2 jmvx=065) EGFR (BEAKER) (test 67 mL/min/1.73 sq m ESTIMATED GFR IS NOT snuf=9973) ACCURATE CREATININE CLEARANCE IN PREDICTING GLOMERULAR FILTRATION RATE. ESTIMATED GFR IS NOT APPLICABLE FOR DIALYSIS PATIENTS. CBC W/PLT COUNT & AUTO [id number] 06:52:00 Test Item Value Reference Range Comments WHITE BLOOD CELL COUNT (BEAKER) (test ubjn=276) 11.7 K/ L 4.0-10.0 RED BLOOD CELL COUNT (BEAKER) (test asfk=015) 4.05 M/ L 4.00-5.00 HEMOGLOBIN (BEAKER) (test avak=157) 11.6 GM/DL 12.0-15.0 HEMATOCRIT (BEAKER) (test krra=476) 36.4 % 36.0-45.0 MEAN CORPUSCULAR VOLUME (BEAKER) (test qvxd=069) 90.0 fL 82.0-99.0 MEAN CORPUSCULAR HEMOGLOBIN (BEAKER) (test 28.7 pg 27.0-33.0 httm=969) MEAN CORPUSCULAR HEMOGLOBIN CONC (BEAKER) (test 31.9 GM/DL 32.0-36.0 hgth=981) RED CELL DISTRIBUTION WIDTH (BEAKER) (test 12.8 % 10.3-14.2 wmqq=216) PLATELET COUNT (BEAKER) (test pgxw=740) 352 K/CU MM 150-430 MEAN PLATELET VOLUME (BEAKER) (test tyva=311) 6.1 fL 6.5-10.5 NUCLEATED RED BLOOD CELLS (BEAKER) (test 0 /100 WBC 0-0 jlfj=149) NEUTROPHILS RELATIVE PERCENT (BEAKER) (test 66 % zxaw=669) LYMPHOCYTES RELATIVE PERCENT (BEAKER) (test 19 % yukb=828) MONOCYTES RELATIVE PERCENT (BEAKER) (test 12 % afoq=720) EOSINOPHILS RELATIVE PERCENT (BEAKER) (test 3 % yjaa=673) BASOPHILS RELATIVE PERCENT (BEAKER) (test 0 % xfkf=281) NEUTROPHILS ABSOLUTE COUNT (BEAKER) (test 7.73 K/ L 1.80-8.00 uafh=472) LYMPHOCYTES ABSOLUTE COUNT (BEAKER) (test 2.22 K/ L 1.48-4.50 brra=195) MONOCYTES ABSOLUTE COUNT (BEAKER) (test 1.35 K/ L 0.00-1.30 utrq=544) EOSINOPHILS ABSOLUTE COUNT (BEAKER) (test 0.33 K/ L 0.00-0.50 pcuo=833) BASOPHILS ABSOLUTE COUNT (BEAKER) (test 0.05 K/ L 0.00-0.20 zuvi=948) 0.00POCT-GLUCOSE [id number] 21:16:00 Test Item Value Reference Range Comments POC-GLUCOSE METER (BEAKER) 141 mg/dL 70-110 TESTED AT [address] (test snnz=4219) [facility] [address] POCT-GLUCOSE [id number] 17:41:00 Test Item Value Reference Range Comments POC-GLUCOSE METER (BEAKER) 154 mg/dL 70-110 TESTED AT [address] (test mloe=9469) [facility] [address] URINALYSIS W/ [id number] 15:10:00 Test Item Value Reference Range Comments COLOR (BEAKER) (test uhjc=627) Yellow CLARITY (BEAKER) (test eznk=009) Clear SPECIFIC GRAVITY UA (BEAKER) (test 1.021 1.001-1.035 ytoz=566) PH UA (BEAKER) (test iwwn=812) 6.0 5.0-8.0 PROTEIN UA (BEAKER) (test xypq=583) 20 mg/dL Negative GLUCOSE UA (BEAKER) (test baum=206) Negative Negative KETONES UA (BEAKER) (test mnhb=269) Trace Negative BILIRUBIN UA (BEAKER) (test iqho=045) Negative Negative BLOOD UA (BEAKER) (test qpjm=918) Small Negative NITRITE UA (BEAKER) (test tdup=026) Negative Negative LEUKOCYTE ESTERASE UA (BEAKER) (test Large Negative vyop=361) UROBILINOGEN UA (BEAKER) (test foxx=696) 0.2 mg/dL 0.2-1.0 RBC UA (BEAKER) (test dajg=681) 1 /HPF WBC UA (BEAKER) (test suvn=286) 36 /HPF BACTERIA (BEAKER) (test wocv=325) Occasional MUCUS (BEAKER) (test rlmg=8041) Rare SQUAMOUS EPITHELIAL (BEAKER) (test 2 /HPF shoo=223) SOURCE(BEAKER) (test oykl=5939) Urine, Clean Catch POCT-GLUCOSE [id number] 12:04:00 Test Item Value Reference Range Comments POC-GLUCOSE METER (BEAKER) 171 mg/dL 70-110 TESTED AT [address] (test jldr=3833) [facility] [address] URINE [id number] 10:02:00 Test Item Value Reference Range Comments CULTURE (BEAKER) (test gowz=1412) No growth POCT-GLUCOSE [id number] 08:15:00 Test Item Value Reference Range Comments POC-GLUCOSE METER (BEAKER) 118 mg/dL 70-110 TESTED AT [place] [id number] [facility] (test qtul=7159) [facility] [address] BASIC METABOLIC [id number] 05:04:00 Test Item Value Reference Range Comments SODIUM (BEAKER) (test 137 meq/L 136-145 aluh=951) POTASSIUM (BEAKER) (test 3.3 meq/L 3.5-5.1 mxsa=703) CHLORIDE (BEAKER) (test 107 meq/L 98-107 bgbj=745) CO2 (BEAKER) (test 22 meq/L 22-29 nmpn=421) BLOOD UREA NITROGEN 7 mg/dL 7-21 (BEAKER) (test jpxg=533) CREATININE (BEAKER) (test 0.80 mg/dL 0.57-1.25 uiqy=954) GLUCOSE RANDOM (BEAKER) 122 mg/dL 70-105 (test jjjk=050) CALCIUM (BEAKER) (test 8.0 mg/dL 8.4-10.2 woka=141) EGFR (BEAKER) (test 74 mL/min/1.73 sq m ESTIMATED GFR IS NOT doam=5270) ACCURATE CREATININE CLEARANCE IN PREDICTING GLOMERULAR FILTRATION RATE. ESTIMATED GFR IS NOT APPLICABLE FOR DIALYSIS PATIENTS. CBC W/PLT COUNT & AUTO [id number] 04:57:00 Test Item Value Reference Range Comments WHITE BLOOD CELL COUNT (BEAKER) (test stgq=140) 12.3 K/ L 4.0-10.0 RED BLOOD CELL COUNT (BEAKER) (test dpnk=808) 3.77 M/ L 4.00-5.00 HEMOGLOBIN (BEAKER) (test xflf=452) 11.1 GM/DL 12.0-15.0 HEMATOCRIT (BEAKER) (test bxfc=364) 33.7 % 36.0-45.0 MEAN CORPUSCULAR VOLUME (BEAKER) (test vxur=091) 89.5 fL 82.0-99.0 MEAN CORPUSCULAR HEMOGLOBIN (BEAKER) (test 29.4 pg 27.0-33.0 fqgq=887) MEAN CORPUSCULAR HEMOGLOBIN CONC (BEAKER) (test 32.9 GM/DL 32.0-36.0 pstj=278) RED CELL DISTRIBUTION WIDTH (BEAKER) (test 12.7 % 10.3-14.2 emdv=980) PLATELET COUNT (BEAKER) (test ujih=250) 325 K/CU MM 150-430 MEAN PLATELET VOLUME (BEAKER) (test ihuz=770) 5.9 fL 6.5-10.5 NUCLEATED RED BLOOD CELLS (BEAKER) (test 0 /100 WBC 0-0 xdea=344) NEUTROPHILS RELATIVE PERCENT (BEAKER) (test 71 % adzp=915) LYMPHOCYTES RELATIVE PERCENT (BEAKER) (test 16 % pzfa=530) MONOCYTES RELATIVE PERCENT (BEAKER) (test 12 % ltdq=578) EOSINOPHILS RELATIVE PERCENT (BEAKER) (test 1 % ojpw=919) BASOPHILS RELATIVE PERCENT (BEAKER) (test 0 % wbao=012) NEUTROPHILS ABSOLUTE COUNT (BEAKER) (test 8.72 K/ L 1.80-8.00 ibom=558) LYMPHOCYTES ABSOLUTE COUNT (BEAKER) (test 1.95 K/ L 1.48-4.50 gnwt=839) MONOCYTES ABSOLUTE COUNT (BEAKER) (test 1.48 K/ L 0.00-1.30 rpdi=109) EOSINOPHILS ABSOLUTE COUNT (BEAKER) (test 0.15 K/ L 0.00-0.50 mhsy=137) BASOPHILS ABSOLUTE COUNT (BEAKER) (test 0.04 K/ L 0.00-0.20 omht=169) 0.00POCT-GLUCOSE [id number] 21:51:00 Test Item Value Reference Range Comments POC-GLUCOSE METER (BEAKER) 159 mg/dL 70-110 TESTED AT [facility] [address] [facility] (test kqcl=5001) [facility] [address] RAPID DRUG SCREEN, [id number] 21:21:00 Test Item Value Reference Range Comments BARBITURATE URINE (BEAKER) (test kzzv=385) Negative Negative BENZODIAZEPINE SCREEN URINE (BEAKER) (test Positive Negative onei=982) COCAINE (METAB.) SCREEN (BEAKER) (test gljt=8103) Negative Negative METHADONE SCREEN (BEAKER) (test oenb=2396) Negative Negative OPIATE SCREEN URINE (BEAKER) (test mump=938) Positive Negative CANNABINOID SCREEN URINE (BEAKER) (test ouyw=775) Negative Negative AMPH/METHAMPH SCREEN (BEAKER) (test kkfm=5671) Negative Negative PHENCYCLIDINE SCREEN URINE (BEAKER) (test wgdl=753) Negative Negative OXYCODONE SCREEN URINE (BEAKER) (test ujpn=1936) Negative Negative DRUG CUTOFF CONC.Cocaine 300 ng/mL Cannabinoid 50 ng/mL Benzodiazepine 200 ng/mLBarbiturate 200 ng/ mLPhencyclidine 25 ng/mLOpiate 300 ng/mLMethadone 300 ng/mLAmphetamine/ 1000 ng/mL MethamphetamineOxycodone 300 ng/mLThis assay provides an unconfirmed qualitative test result for the clinical management of patients in emergency situations. Chain of custody not maintained. Some sihp-cyq-usyyhyx medications, as well as adulterants, may cause inaccurate results. Clinical correlation should be applied. A more comprehensive drug screen or confirmation of a detected drug may be performed upon request.POCT-GLUCOSE [id number] 14:21:00 Test Item Value Reference Range Comments POC-GLUCOSE METER (BEAKER) 113 mg/dL 70-110 TESTED AT [address] (test usvo=0891) [place] [address] [id number] 10:15:00 Test Item Value Reference Range Comments RPR SCREEN (BEAKER) (test qdor=931) Nonreactive Nonreactive URINE [id number] 09:21:00 Test Item Value Reference Range Comments CULTURE (BEAKER) (test >100,000 col/mL skin mckenna bfse=5605) POCT-GLUCOSE [id number] 08:00:00 Test Item Value Reference Range Comments POC-GLUCOSE METER (BEAKER) 128 mg/dL 70-110 TESTED AT [address] (test jeym=4232) [place] [address] CBC (HEMOGRAM ONLY)2017-03-04 07:25:00 Test Item Value Reference Range Comments WHITE BLOOD CELL COUNT (BEAKER) (test pxje=032) 13.9 K/ L 4.0-10.0 RED BLOOD CELL COUNT (BEAKER) (test vlld=393) 4.28 M/ L 4.00-5.00 HEMOGLOBIN (BEAKER) (test dshe=096) 12.1 GM/DL 12.0-15.0 HEMATOCRIT (BEAKER) (test ljbq=328) 37.9 % 36.0-45.0 MEAN CORPUSCULAR VOLUME (BEAKER) (test atut=252) 88.6 fL 82.0-99.0 MEAN CORPUSCULAR HEMOGLOBIN (BEAKER) (test 28.2 pg 27.0-33.0 ulma=995) MEAN CORPUSCULAR HEMOGLOBIN CONC (BEAKER) (test 31.8 GM/DL 32.0-36.0 nxph=064) RED CELL DISTRIBUTION WIDTH (BEAKER) (test 12.7 % 10.3-14.2 yqwh=252) PLATELET COUNT (BEAKER) (test ozsp=187) 343 K/CU MM 150-430 MEAN PLATELET VOLUME (BEAKER) (test hchp=413) 6.0 fL 6.5-10.5 NUCLEATED RED BLOOD CELLS (BEAKER) (test 0 /100 WBC 0-0 wapu=551) 0.00BASI METABOLIC [id number] 07:02:00 Test Item Value Reference Range Comments SODIUM (BEAKER) (test 138 meq/L 136-145 fjej=314) POTASSIUM (BEAKER) (test 3.9 meq/L 3.5-5.1 mrol=982) CHLORIDE (BEAKER) (test 104 meq/L 98-107 gcen=310) CO2 (BEAKER) (test 25 meq/L 22-29 xejn=618) BLOOD UREA NITROGEN 7 mg/dL 7-21 (BEAKER) (test tnjh=294) CREATININE (BEAKER) (test 0.98 mg/dL 0.57-1.25 uabo=648) GLUCOSE RANDOM (BEAKER) 138 mg/dL 70-105 (test gjwo=122) CALCIUM (BEAKER) (test 9.1 mg/dL 8.4-10.2 nfuc=707) EGFR (BEAKER) (test 59 mL/min/1.73 sq m ESTIMATED GFR IS NOT morl=2713) ACCURATE CREATININE CLEARANCE IN PREDICTING GLOMERULAR FILTRATION RATE. ESTIMATED GFR IS NOT APPLICABLE FOR DIALYSIS PATIENTS. POCT-GLUCOSE [id number] 21:33:00 Test Item Value Reference Range Comments POC-GLUCOSE METER (BEAKER) 163 mg/dL 70-110 TESTED AT [address] (test zpbv=6118) [facility] [id number] URINALYSIS W/ [id number] 18:19:00 Test Item Value Reference Range Comments COLOR (BEAKER) (test bjzh=654) Light Yellow CLARITY (BEAKER) (test fsni=157) Clear SPECIFIC GRAVITY UA (BEAKER) (test 1.015 1.001-1.035 arju=030) PH UA (BEAKER) (test wgnb=367) 6.5 5.0-8.0 PROTEIN UA (BEAKER) (test leby=760) Negative Negative GLUCOSE UA (BEAKER) (test jhpc=471) Negative Negative KETONES UA (BEAKER) (test fzct=358) Negative Negative BILIRUBIN UA (BEAKER) (test Negative Negative vtmo=872) BLOOD UA (BEAKER) (test fcbv=700) Negative Negative NITRITE UA (BEAKER) (test kwre=101) Negative Negative LEUKOCYTE ESTERASE UA (BEAKER) Negative Negative (test xftx=129) UROBILINOGEN UA (BEAKER) (test 0.2 mg/dL 0.2-1.0 iiju=157) RBC UA (BEAKER) (test umjw=035) 1 /HPF WBC UA (BEAKER) (test qenn=618) 4 /HPF SOURCE(BEAKER) (test nhju=1875) Urine, Straight Catheter POCT-GLUCOSE [id number] 16:40:00 Test Item Value Reference Range Comments POC-GLUCOSE METER (BEAKER) 120 mg/dL 70-110 TESTED AT [facility] [address] (test lxip=0575) [facility] [address] HEPATITIS PANEL, [id number] 10:25:00 Test Item Value Reference Range Comments HEPATITIS A IGM ANTIBODY (BEAKER) (test Nonreactive Nonreactive csdx=956) HEPATITIS B CORE IGM ANTIBODY (BEAKER) (test Nonreactive Nonreactive wtja=366) HEPATITIS C ANTIBODY (BEAKER) (test euji=506) Nonreactive Nonreactive HEPATITIS B SURFACE ANTIGEN (2) (BEAKER) (test Nonreactive Nonreactive lxmp=6349) HIV-1 ANTIGEN WITH HIV-1/2 [id number] 10:25:00 Test Item Value Reference Range Comments HIV-1 ANTIGEN WITH HIV 1\\T\\2 ANTIBODY (2) Nonreactive Nonreactive (BEAKER) (test jcbc=0657) BASIC METABOLIC [id number] 10:05:00 Test Item Value Reference Range Comments SODIUM (BEAKER) (test 137 meq/L 136-145 rkya=546) POTASSIUM (BEAKER) (test 3.8 meq/L 3.5-5.1 duak=344) CHLORIDE (BEAKER) (test 102 meq/L 98-107 nmyl=083) CO2 (BEAKER) (test 27 meq/L 22-29 gckt=583) BLOOD UREA NITROGEN 9 mg/dL 7-21 (BEAKER) (test lzcu=178) CREATININE (BEAKER) (test 0.97 mg/dL 0.57-1.25 cdvu=602) GLUCOSE RANDOM (BEAKER) 126 mg/dL 70-105 (test opav=354) CALCIUM (BEAKER) (test 9.2 mg/dL 8.4-10.2 lwan=525) EGFR (BEAKER) (test 59 mL/min/1.73 sq m ESTIMATED GFR IS NOT kpbv=6854) ACCURATE CREATININE CLEARANCE IN PREDICTING GLOMERULAR FILTRATION RATE. ESTIMATED GFR IS NOT APPLICABLE FOR DIALYSIS PATIENTS. CBC W/PLT COUNT & AUTO [id number] 09:58:00 Test Item Value Reference Range Comments WHITE BLOOD CELL COUNT (BEAKER) (test pgbj=258) 7.2 K/ L 4.0-10.0 RED BLOOD CELL COUNT (BEAKER) (test xkgb=241) 4.13 M/ L 4.00-5.00 HEMOGLOBIN (BEAKER) (test ljrz=467) 12.2 GM/DL 12.0-15.0 HEMATOCRIT (BEAKER) (test iowj=094) 36.1 % 36.0-45.0 MEAN CORPUSCULAR VOLUME (BEAKER) (test pqtb=365) 87.4 fL 82.0-99.0 MEAN CORPUSCULAR HEMOGLOBIN (BEAKER) (test 29.4 pg 27.0-33.0 zgnd=505) MEAN CORPUSCULAR HEMOGLOBIN CONC (BEAKER) (test 33.7 GM/DL 32.0-36.0 eztm=308) RED CELL DISTRIBUTION WIDTH (BEAKER) (test 14.5 % 10.3-14.2 oapi=305) PLATELET COUNT (BEAKER) (test qkjc=966) 336 K/CU MM 150-430 MEAN PLATELET VOLUME (BEAKER) (test sywi=194) 6.2 fL 6.5-10.5 NUCLEATED RED BLOOD CELLS (BEAKER) (test 0 /100 WBC 0-0 stdb=516) NEUTROPHILS RELATIVE PERCENT (BEAKER) (test 61 % knly=840) LYMPHOCYTES RELATIVE PERCENT (BEAKER) (test 24 % hgez=694) MONOCYTES RELATIVE PERCENT (BEAKER) (test 11 % ktsg=617) EOSINOPHILS RELATIVE PERCENT (BEAKER) (test 4 % wwtr=192) BASOPHILS RELATIVE PERCENT (BEAKER) (test 1 % exmg=726) NEUTROPHILS ABSOLUTE COUNT (BEAKER) (test 4.41 K/ L 1.80-8.00 dyji=636) LYMPHOCYTES ABSOLUTE COUNT (BEAKER) (test 1.69 K/ L 1.48-4.50 pekf=445) MONOCYTES ABSOLUTE COUNT (BEAKER) (test 0.77 K/ L 0.00-1.30 mjrg=501) EOSINOPHILS ABSOLUTE COUNT (BEAKER) (test 0.27 K/ L 0.00-0.50 fmsf=289) BASOPHILS ABSOLUTE COUNT (BEAKER) (test 0.05 K/ L 0.00-0.20 jgcn=218) 0.00POCT-GLUCOSE [id number] 08:28:00 Test Item Value Reference Range Comments POC-GLUCOSE METER (BEAKER) 134 mg/dL 70-110 TESTED AT [address] (test yiym=0908) [place] [address] POCT-GLUCOSE [id number] 21:33:00 Test Item Value Reference Range Comments POC-GLUCOSE METER (BEAKER) 142 mg/dL 70-110 TESTED AT [address] (test rsly=1469) [place] [address] URINALYSIS W/ [id number] 13:59:00 Test Item Value Reference Range Comments COLOR (BEAKER) (test brvc=620) Yellow CLARITY (BEAKER) (test lnsr=632) Clear SPECIFIC GRAVITY UA (BEAKER) (test xczi=560) 1.035 1.001-1.035 PH UA (BEAKER) (test vlhr=854) 5.5 5.0-8.0 PROTEIN UA (BEAKER) (test ikys=605) 20 mg/dL Negative GLUCOSE UA (BEAKER) (test nwir=538) Negative Negative KETONES UA (BEAKER) (test ftwa=086) Negative Negative BILIRUBIN UA (BEAKER) (test anrt=321) Negative Negative BLOOD UA (BEAKER) (test degp=157) Small Negative NITRITE UA (BEAKER) (test hfmt=090) Negative Negative LEUKOCYTE ESTERASE UA (BEAKER) (test wwuj=681) Large Negative UROBILINOGEN UA (BEAKER) (test esxb=548) 0.2 mg/dL 0.2-1.0 RBC UA (BEAKER) (test mrjd=219) < /HPF WBC UA (BEAKER) (test wwiw=402) 23 /HPF SQUAMOUS EPITHELIAL (BEAKER) (test xnnw=420) < /HPF SOURCE(BEAKER) (test phwb=7643) COMPREHENSIVE METABOLIC [id number] 12:59:00 Test Item Value Reference Range Comments TOTAL PROTEIN (BEAKER) 6.3 gm/dL 6.0-8.3 (test nyvm=462) ALBUMIN (BEAKER) (test 3.3 g/dL 3.5-5.0 peyb=4739) ALKALINE PHOSPHATASE 62 U/L 40-150 (BEAKER) (test nkab=788) BILIRUBIN TOTAL (BEAKER) 0.2 mg/dL 0.2-1.2 (test dmne=121) SODIUM (BEAKER) (test 136 meq/L 136-145 tkep=100) POTASSIUM (BEAKER) (test 3.9 meq/L 3.5-5.1 agug=358) CHLORIDE (BEAKER) (test 103 meq/L 98-107 kcoa=952) CO2 (BEAKER) (test 24 meq/L 22-29 qpoz=040) BLOOD UREA NITROGEN 14 mg/dL 7-21 (BEAKER) (test ucib=131) CREATININE (BEAKER) (test 0.81 mg/dL 0.57-1.25 rkce=951) GLUCOSE RANDOM (BEAKER) 111 mg/dL 70-105 (test oihz=506) CALCIUM (BEAKER) (test 9.2 mg/dL 8.4-10.2 rtsx=074) AST (SGOT) (BEAKER) (test 19 U/L 5-34 vell=139) ALT (SGPT) (BEAKER) (test 14 U/L 6-55 rdrn=430) EGFR (BEAKER) (test 73 mL/min/1.73 sq m ESTIMATED GFR IS NOT rvit=1930) ACCURATE CREATININE CLEARANCE IN PREDICTING GLOMERULAR FILTRATION RATE. ESTIMATED GFR IS NOT APPLICABLE FOR DIALYSIS PATIENTS. [id number] 12:31:00 Test Item Value Reference Range Comments PROTIME (BEAKER) (test xarm=766) 13.7 seconds 11.7-14.7 INR (BEAKER) (test vyqd=604) 1.1 <=5.9 PARTIAL THROMBOPLASTIN TIME (BEAKER) (test 35.2 seconds 22.5-36.0 rija=313) RECOMMENDED COUMADIN/WARFARIN INR THERAPY RANGESSTANDARD DOSE: 2.0 - 3.0 Includes: PROPHYLAXIS forvenous thrombosis, systemic embolization; TREATMENT for venous thrombosis and/or pulmonary embolus.HIGH RISK: Target INR is 2.5-3.5 for patients with mechanical heart valves.CBC W/PLT COUNT & AUTO [id number] 12:18:00 Test Item Value Reference Range Comments WHITE BLOOD CELL COUNT (BEAKER) (test xqkm=311) 8.6 K/ L 4.0-10.0 RED BLOOD CELL COUNT (BEAKER) (test hpoj=923) 4.17 M/ L 4.00-5.00 HEMOGLOBIN (BEAKER) (test gvnc=968) 12.4 GM/DL 12.0-15.0 HEMATOCRIT (BEAKER) (test txpn=343) 36.8 % 36.0-45.0 MEAN CORPUSCULAR VOLUME (BEAKER) (test ihfm=453) 88.3 fL 82.0-99.0 MEAN CORPUSCULAR HEMOGLOBIN (BEAKER) (test 29.8 pg 27.0-33.0 momb=831) MEAN CORPUSCULAR HEMOGLOBIN CONC (BEAKER) (test 33.7 GM/DL 32.0-36.0 vopl=834) RED CELL DISTRIBUTION WIDTH (BEAKER) (test 14.4 % 10.3-14.2 gkps=670) PLATELET COUNT (BEAKER) (test tood=373) 332 K/CU MM 150-430 MEAN PLATELET VOLUME (BEAKER) (test xwbx=812) 6.3 fL 6.5-10.5 NUCLEATED RED BLOOD CELLS (BEAKER) (test 0 /100 WBC 0-0 qulw=842) NEUTROPHILS RELATIVE PERCENT (BEAKER) (test 51 % eykb=358) LYMPHOCYTES RELATIVE PERCENT (BEAKER) (test 33 % nivk=241) MONOCYTES RELATIVE PERCENT (BEAKER) (test 12 % ysce=752) EOSINOPHILS RELATIVE PERCENT (BEAKER) (test 3 % uvkf=431) BASOPHILS RELATIVE PERCENT (BEAKER) (test 1 % djmu=539) NEUTROPHILS ABSOLUTE COUNT (BEAKER) (test 4.41 K/ L 1.80-8.00 mzji=283) LYMPHOCYTES ABSOLUTE COUNT (BEAKER) (test 2.80 K/ L 1.48-4.50 zboq=088) MONOCYTES ABSOLUTE COUNT (BEAKER) (test 1.00 K/ L 0.00-1.30 jvkt=991) EOSINOPHILS ABSOLUTE COUNT (BEAKER) (test 0.28 K/ L 0.00-0.50 tldq=648) BASOPHILS ABSOLUTE COUNT (BEAKER) (test 0.09 K/ L 0.00-0.20 gigg=089) 0.00BLOOD [id number] 06:00:00 Test Item Value Reference Range Comments CULTURE (BEAKER) (test xbsh=0512) No growth in 5 days URINE [id number] 13:38:00 Test Item Value Reference Range Comments CULTURE (BEAKER) (test 50-59,000 col/mL Beronica oeft=0484) albicans <10,000 col/mL Gram Negative byron<10,000 col/mL skin floraURINALYSIS W/ [id number] 03:34:00 Test Item Value Reference Range Comments COLOR (BEAKER) (test kvhy=296) Yellow CLARITY (BEAKER) (test hnis=627) Hazy SPECIFIC GRAVITY UA (BEAKER) (test bksl=024) 1.014 1.001-1.035 PH UA (BEAKER) (test gqae=155) 5.5 5.0-8.0 PROTEIN UA (BEAKER) (test tynw=511) 70 mg/dL Negative GLUCOSE UA (BEAKER) (test bsls=982) Negative Negative KETONES UA (BEAKER) (test gkka=966) Negative Negative BILIRUBIN UA (BEAKER) (test pgqs=614) Negative Negative BLOOD UA (BEAKER) (test kjzk=618) Moderate Negative NITRITE UA (BEAKER) (test stjf=316) Negative Negative LEUKOCYTE ESTERASE UA (BEAKER) (test fwim=547) Large Negative UROBILINOGEN UA (BEAKER) (test tobq=228) 0.2 mg/dL 0.2-1.0 RBC UA (BEAKER) (test jtkb=759) 79 /HPF WBC UA (BEAKER) (test ofmh=957) > /HPF MUCUS (BEAKER) (test gqxi=5835) Rare SQUAMOUS EPITHELIAL (BEAKER) (test tasq=247) 2 /HPF SOURCE(BEAKER) (test yysy=0464) [id number] 02:16:00 Test Item Value Reference Range Comments LIPASE (BEAKER) (test jupr=522) 8 U/L 8-78 [id number] 02:16:00 Test Item Value Reference Range Comments AMYLASE (BEAKER) (test nein=867) 21 U/L 25-125 BASIC METABOLIC [id number] 02:16:00 Test Item Value Reference Range Comments SODIUM (BEAKER) (test 136 meq/L 136-145 xuhp=519) POTASSIUM (BEAKER) (test 4.3 meq/L 3.5-5.1 aita=601) CHLORIDE (BEAKER) (test 101 meq/L 98-107 oaeh=256) CO2 (BEAKER) (test 26 meq/L 22-29 mqci=770) BLOOD UREA NITROGEN 15 mg/dL 7-21 (BEAKER) (test xqsp=700) CREATININE (BEAKER) (test 0.85 mg/dL 0.57-1.25 ulfd=481) GLUCOSE RANDOM (BEAKER) 144 mg/dL 70-105 (test qylt=151) CALCIUM (BEAKER) (test 9.9 mg/dL 8.4-10.2 etef=959) EGFR (BEAKER) (test 69 mL/min/1.73 sq m ESTIMATED GFR IS NOT hgnh=4435) ACCURATE CREATININE CLEARANCE IN PREDICTING GLOMERULAR FILTRATION RATE. ESTIMATED GFR IS NOT APPLICABLE FOR DIALYSIS PATIENTS. HEPATIC FUNCTION [id number] 02:16:00 Test Item Value Reference Range Comments TOTAL PROTEIN (BEAKER) (test jjua=254) 7.3 gm/dL 6.0-8.3 ALBUMIN (BEAKER) (test jvce=3899) 3.9 g/dL 3.5-5.0 BILIRUBIN TOTAL (BEAKER) (test snok=144) 0.4 mg/dL 0.2-1.2 BILIRUBIN DIRECT (BEAKER) (test uvry=541) 0.2 mg/dL 0.1-0.5 ALKALINE PHOSPHATASE (BEAKER) (test xtgf=112) 78 U/L 40-150 AST (SGOT) (BEAKER) (test zlws=917) 10 U/L 5-34 ALT (SGPT) (BEAKER) (test idyp=620) 16 U/L 6-55 CBC W/PLT COUNT & AUTO [id number] 02:05:00 Test Item Value Reference Range Comments WHITE BLOOD CELL COUNT (BEAKER) (test lfnm=197) 15.7 K/ L 4.0-10.0 RED BLOOD CELL COUNT (BEAKER) (test adio=717) 4.51 M/ L 4.00-5.00 HEMOGLOBIN (BEAKER) (test qngm=403) 13.1 GM/DL 12.0-15.0 HEMATOCRIT (BEAKER) (test lahl=248) 40.9 % 36.0-45.0 MEAN CORPUSCULAR VOLUME (BEAKER) (test qrru=497) 90.9 fL 82.0-99.0 MEAN CORPUSCULAR HEMOGLOBIN (BEAKER) (test 29.1 pg 27.0-33.0 zabo=873) MEAN CORPUSCULAR HEMOGLOBIN CONC (BEAKER) (test 32.1 GM/DL 32.0-36.0 exje=139) RED CELL DISTRIBUTION WIDTH (BEAKER) (test 14.4 % 10.3-14.2 caoy=288) PLATELET COUNT (BEAKER) (test tzgb=666) 342 K/CU MM 150-430 MEAN PLATELET VOLUME (BEAKER) (test fofm=495) 6.3 fL 6.5-10.5 NUCLEATED RED BLOOD CELLS (BEAKER) (test 0 /100 WBC 0-0 cnpu=011) NEUTROPHILS RELATIVE PERCENT (BEAKER) (test 64 % luqm=585) LYMPHOCYTES RELATIVE PERCENT (BEAKER) (test 24 % afpz=340) MONOCYTES RELATIVE PERCENT (BEAKER) (test 9 % mphd=020) EOSINOPHILS RELATIVE PERCENT (BEAKER) (test 3 % vnvt=189) BASOPHILS RELATIVE PERCENT (BEAKER) (test 1 % rkbt=524) NEUTROPHILS ABSOLUTE COUNT (BEAKER) (test 9.98 K/ L 1.80-8.00 yjos=334) LYMPHOCYTES ABSOLUTE COUNT (BEAKER) (test 3.72 K/ L 1.48-4.50 xasg=026) MONOCYTES ABSOLUTE COUNT (BEAKER) (test 1.35 K/ L 0.00-1.30 wgdw=571) EOSINOPHILS ABSOLUTE COUNT (BEAKER) (test 0.48 K/ L 0.00-0.50 fccr=012) BASOPHILS ABSOLUTE COUNT (BEAKER) (test 0.17 K/ L 0.00-0.20 nsum=033) 0.00TISSUE [id number] 16:41:00Surgical Pathology Report Case: [id number] Authorizing Provider: Jag Ritchie MD Collected: 01/23/2017 1827 Ordering Location: [facility] Received: 01/24/2017 0855 SERVICES Pathologist: Karma Estevez MD Specimen: SoftTissue, Other, LEFT PROXIMAL URETERAL STRICTURE URETER, LEFT PROXIMAL STRICTURE, EXCISION: - UROTHELIUM LINED WALL WITH ACUTE AND CHRONIC INFLAMMATION, FOCAL EROSION ANDREACTIVE CHANGES - NEGATIVE FOR DYSPLASIA OR MALIGNANCY Ureteropelvic junction obstructionLeft proximal ureteral strictureThe specimen is received in saline labeled with the patient's information and labeled "left proximal ureteral stricture" and consists of a segment of camacho-pink soft tissue measuring 1.5 x 0.8 x 0.3 cm. Thetissue is entirely submitted in A1. CG/ewPerformed.22499LHOLIAVAK [id number] 08:38: 00 Test Item Value Reference Range Comments CULTURE (BEAKER) (test tebk=6507) No anaerobes isolated SURGICALLY OBTAINED CULTURE + GRAM [id number] 15:59:00 Test Item Value Reference Range Comments CULTURE (BEAKER) (test BERONICA ALBICANS 3+ Beronica albicans ddbi=5422) 5-Flurocytosine (test Susceptible 0-4 , xvog=847) Intermediate <0 or >4 , Resistant >16 Amphotericin B (test Susceptible >0-0 , No hfra=922) Interpretations Established <=0 or >0 Caspofungin acetate Susceptible 0-0.25 , Non (test ktbw=001) Fluconazole (test Susceptible 0-2 , Dose ezza=532) Dependent Susceptible <0 or >2 , Resi Itraconazole (test Susceptible 0-0.125 , Dose ltgm=656) Dependent Susceptible <0 or >.125 Micafungin (test Susceptible 0-0.25 , Non jexp=611) Posaconazole (test Susceptible >0-0 , No xfgu=524) Interpretations Established <=0 or >0 Voriconazole (test Susceptible 0-0.12 , Dose zazi=922) Dependent Susceptible <0 or >.12 , GRAM STAIN RESULT 4+ WBCs (BEAKER) (test uoee=8922) GRAM STAIN RESULT 1+ yeast (BEAKER) (test xxvd=994060) POCT-GLUCOSE [id number] 13:12:00 Test Item Value Reference Range Comments POC-GLUCOSE METER (BEAKER) 116 mg/dL 70-110 TESTED AT [address] (test lvsp=6876) [facility] [address] POCT-GLUCOSE [id number] 12:02:00 Test Item Value Reference Range Comments POC-GLUCOSE METER (BEAKER) 142 mg/dL 70-110 TESTED AT [address] (test ymah=8053) [facility] [address] POCT-GLUCOSE [id number] 08:20:00 Test Item Value Reference Range Comments POC-GLUCOSE METER (BEAKER) 169 mg/dL 70-110 TESTED AT [address] (test mrkd=2779) [facility] [address] [id number] 04:58:00 Test Item Value Reference Range Comments PHOSPHORUS (BEAKER) (test bxxr=992) 2.0 mg/dL 2.3-4.7 [id number] 04:58:00 Test Item Value Reference Range Comments MAGNESIUM (BEAKER) (test xcre=861) 2.0 mg/dL 1.6-2.6 BASIC METABOLIC [id number] 04:58:00 Test Item Value Reference Range Comments SODIUM (BEAKER) (test 140 meq/L 136-145 yrou=534) POTASSIUM (BEAKER) (test 4.0 meq/L 3.5-5.1 gpni=479) CHLORIDE (BEAKER) (test 109 meq/L 98-107 kpky=279) CO2 (BEAKER) (test 21 meq/L 22-29 yphm=033) BLOOD UREA NITROGEN 14 mg/dL 7-21 (BEAKER) (test vhbd=421) CREATININE (BEAKER) (test 0.82 mg/dL 0.57-1.25 rgts=845) GLUCOSE RANDOM (BEAKER) 135 mg/dL 70-105 (test kxhk=270) CALCIUM (BEAKER) (test 8.8 mg/dL 8.4-10.2 crnu=935) EGFR (BEAKER) (test 72 mL/min/1.73 sq m ESTIMATED GFR IS NOT ilyw=7562) ACCURATE CREATININE CLEARANCE IN PREDICTING GLOMERULAR FILTRATION RATE. ESTIMATED GFR IS NOT APPLICABLE FOR DIALYSIS PATIENTS. CBC W/PLT COUNT & AUTO [id number] 04:14:00 Test Item Value Reference Range Comments WHITE BLOOD CELL COUNT (BEAKER) (test lhft=704) 12.1 K/ L 4.0-10.0 RED BLOOD CELL COUNT (BEAKER) (test eufb=316) 4.18 M/ L 4.00-5.00 HEMOGLOBIN (BEAKER) (test osfl=959) 12.2 GM/DL 12.0-15.0 HEMATOCRIT (BEAKER) (test ehfb=733) 37.8 % 36.0-45.0 MEAN CORPUSCULAR VOLUME (BEAKER) (test doyo=916) 90.4 fL 82.0-99.0 MEAN CORPUSCULAR HEMOGLOBIN (BEAKER) (test 29.3 pg 27.0-33.0 cqau=683) MEAN CORPUSCULAR HEMOGLOBIN CONC (BEAKER) (test 32.4 GM/DL 32.0-36.0 eoxp=325) RED CELL DISTRIBUTION WIDTH (BEAKER) (test 14.7 % 10.3-14.2 eaot=877) PLATELET COUNT (BEAKER) (test ufzl=541) 211 K/CU MM 150-430 MEAN PLATELET VOLUME (BEAKER) (test dbwb=479) 6.8 fL 6.5-10.5 NUCLEATED RED BLOOD CELLS (BEAKER) (test 0 /100 WBC 0-0 adjq=815) NEUTROPHILS RELATIVE PERCENT (BEAKER) (test 63 % lbgl=742) LYMPHOCYTES RELATIVE PERCENT (BEAKER) (test 26 % ibek=175) MONOCYTES RELATIVE PERCENT (BEAKER) (test 9 % eaou=826) EOSINOPHILS RELATIVE PERCENT (BEAKER) (test 2 % yigd=589) BASOPHILS RELATIVE PERCENT (BEAKER) (test 1 % tghu=517) NEUTROPHILS ABSOLUTE COUNT (BEAKER) (test 7.57 K/ L 1.80-8.00 ulby=106) LYMPHOCYTES ABSOLUTE COUNT (BEAKER) (test 3.12 K/ L 1.48-4.50 giyz=701) MONOCYTES ABSOLUTE COUNT (BEAKER) (test 1.09 K/ L 0.00-1.30 sbqw=697) EOSINOPHILS ABSOLUTE COUNT (BEAKER) (test 0.24 K/ L 0.00-0.50 aslo=184) BASOPHILS ABSOLUTE COUNT (BEAKER) (test 0.08 K/ L 0.00-0.20 grmp=245) 0.00POCT-GLUCOSE [id number] 21:38:00 Test Item Value Reference Range Comments POC-GLUCOSE METER (BEAKER) 137 mg/dL 70-110 TESTED AT [address] (test hhcc=3407) [place] [address] POCT-GLUCOSE [id number] 11:40:00 Test Item Value Reference Range Comments POC-GLUCOSE METER (BEAKER) 187 mg/dL 70-110 TESTED AT [address] (test lsxe=2879) [facility] [address] POCT-GLUCOSE [id number] 06:44:00 Test Item Value Reference Range Comments POC-GLUCOSE METER (BEAKER) 160 mg/dL 70-110 TESTED AT [address] (test pwvt=7492) [facility] [address] BLOOD GAS, [id number] 04:11:00 Test Item Value Reference Range Comments PH ARTERIAL (BEAKER) (test zjjr=134) 7.36 7.35-7.45 PCO2 ARTERIAL (BEAKER) (test okyb=350) 41 mmHg 35-45 PO2 ARTERIAL (BEAKER) (test wart=424) 76 mmHg 80-90 O2 SATURATION ARTERIAL (BEAKER) (test dpkx=644) 94.7 % 96.0-97.0 HCO3 ARTERIAL (BEAKER) (test ypui=089) 23 mmol/L 21-29 BASE EXCESS ARTERIAL (BEAKER) (test qhma=851) -2.7 mmol/L -2.0-3.0 PATIENT TEMPERATURE (BEAKER) (test pwqf=7058) 37.0 C FIO2 (BEAKER) (test jprh=1844) 40.0 % [id number] 04:09:00 Test Item Value Reference Range Comments PHOSPHORUS (BEAKER) (test zrgn=152) 2.9 mg/dL 2.3-4.7 [id number] 04:09:00 Test Item Value Reference Range Comments MAGNESIUM (BEAKER) (test rhml=444) 2.1 mg/dL 1.6-2.6 BASIC METABOLIC [id number] 04:09:00 Test Item Value Reference Range Comments SODIUM (BEAKER) (test 139 meq/L 136-145 nxga=468) POTASSIUM (BEAKER) (test 4.2 meq/L 3.5-5.1 fiin=631) CHLORIDE (BEAKER) (test 108 meq/L 98-107 pmvb=173) CO2 (BEAKER) (test 20 meq/L 22-29 ztji=592) BLOOD UREA NITROGEN 16 mg/dL 7-21 (BEAKER) (test pnjg=872) CREATININE (BEAKER) (test 0.80 mg/dL 0.57-1.25 dcsv=208) GLUCOSE RANDOM (BEAKER) 172 mg/dL 70-105 (test sntf=962) CALCIUM (BEAKER) (test 8.2 mg/dL 8.4-10.2 vzzb=423) EGFR (BEAKER) (test 74 mL/min/1.73 sq m ESTIMATED GFR IS NOT yfrd=3341) ACCURATE CREATININE CLEARANCE IN PREDICTING GLOMERULAR FILTRATION RATE. ESTIMATED GFR IS NOT APPLICABLE FOR DIALYSIS PATIENTS. CBC W/PLT COUNT & AUTO [id number] 03:57:00 Test Item Value Reference Range Comments WHITE BLOOD CELL COUNT (BEAKER) (test cfhp=371) 14.9 K/ L 4.0-10.0 RED BLOOD CELL COUNT (BEAKER) (test ktcn=118) 4.17 M/ L 4.00-5.00 HEMOGLOBIN (BEAKER) (test maxs=959) 12.7 GM/DL 12.0-15.0 HEMATOCRIT (BEAKER) (test tirr=005) 37.4 % 36.0-45.0 MEAN CORPUSCULAR VOLUME (BEAKER) (test tohx=932) 89.6 fL 82.0-99.0 MEAN CORPUSCULAR HEMOGLOBIN (BEAKER) (test 30.5 pg 27.0-33.0 enlh=975) MEAN CORPUSCULAR HEMOGLOBIN CONC (BEAKER) (test 34.0 GM/DL 32.0-36.0 iyfx=193) RED CELL DISTRIBUTION WIDTH (BEAKER) (test 12.8 % 10.3-14.2 szex=732) PLATELET COUNT (BEAKER) (test rdnk=369) 217 K/CU MM 150-430 MEAN PLATELET VOLUME (BEAKER) (test aakt=149) 6.4 fL 6.5-10.5 NUCLEATED RED BLOOD CELLS (BEAKER) (test 0 /100 WBC 0-0 qfxf=285) NEUTROPHILS RELATIVE PERCENT (BEAKER) (test 74 % mkkl=306) LYMPHOCYTES RELATIVE PERCENT (BEAKER) (test 17 % niek=359) MONOCYTES RELATIVE PERCENT (BEAKER) (test 8 % miih=877) EOSINOPHILS RELATIVE PERCENT (BEAKER) (test 0 % obpn=904) BASOPHILS RELATIVE PERCENT (BEAKER) (test 0 % akhw=718) NEUTROPHILS ABSOLUTE COUNT (BEAKER) (test 11.10 K/ L 1.80-8.00 jfeo=436) LYMPHOCYTES ABSOLUTE COUNT (BEAKER) (test 2.60 K/ L 1.48-4.50 cycy=566) MONOCYTES ABSOLUTE COUNT (BEAKER) (test 1.13 K/ L 0.00-1.30 sdui=693) EOSINOPHILS ABSOLUTE COUNT (BEAKER) (test 0.03 K/ L 0.00-0.50 vxdv=224) BASOPHILS ABSOLUTE COUNT (BEAKER) (test 0.07 K/ L 0.00-0.20 kdxu=354) 0.00POCT-GLUCOSE [id number] 00:34:00 Test Item Value Reference Range Comments POC-GLUCOSE METER (BEAKER) 243 mg/dL 70-110 TESTED AT [facility] [address] [facility] (test gtfd=1599) [facility] [address] [id number] 21:39:00 Test Item Value Reference Range Comments PHOSPHORUS (BEAKER) (test hpbt=420) 3.7 mg/dL 2.3-4.7 [id number] 21:39:00 Test Item Value Reference Range Comments MAGNESIUM (BEAKER) (test cxzz=401) 1.6 mg/dL 1.6-2.6 COMPREHENSIVE METABOLIC [id number] 21:39:00 Test Item Value Reference Range Comments TOTAL PROTEIN (BEAKER) 6.6 gm/dL 6.0-8.3 (test rtvn=071) ALBUMIN (BEAKER) (test 4.1 g/dL 3.5-5.0 lead=2513) ALKALINE PHOSPHATASE 63 U/L 40-150 (BEAKER) (test olrk=829) BILIRUBIN TOTAL (BEAKER) 0.5 mg/dL 0.2-1.2 (test vpox=273) SODIUM (BEAKER) (test 140 meq/L 136-145 rimq=451) POTASSIUM (BEAKER) (test 3.8 meq/L 3.5-5.1 hbfz=979) CHLORIDE (BEAKER) (test 108 meq/L 98-107 nreu=898) CO2 (BEAKER) (test 20 meq/L 22-29 rdfm=605) BLOOD UREA NITROGEN 20 mg/dL 7-21 (BEAKER) (test cniq=265) CREATININE (BEAKER) (test 0.92 mg/dL 0.57-1.25 yimq=732) GLUCOSE RANDOM (BEAKER) 191 mg/dL 70-105 (test lzod=964) CALCIUM (BEAKER) (test 8.6 mg/dL 8.4-10.2 fuwh=253) AST (SGOT) (BEAKER) (test 16 U/L 5-34 pcae=849) ALT (SGPT) (BEAKER) (test 20 U/L 6-55 yeqi=413) EGFR (BEAKER) (test 63 mL/min/1.73 sq m ESTIMATED GFR IS NOT znqo=1792) ACCURATE CREATININE CLEARANCE IN PREDICTING GLOMERULAR FILTRATION RATE. ESTIMATED GFR IS NOT APPLICABLE FOR DIALYSIS PATIENTS. CBC W/PLT COUNT & AUTO [id number] 21:24:00 Test Item Value Reference Range Comments WHITE BLOOD CELL COUNT (BEAKER) (test rmgq=911) 17.1 K/ L 4.0-10.0 RED BLOOD CELL COUNT (BEAKER) (test iprk=834) 4.55 M/ L 4.00-5.00 HEMOGLOBIN (BEAKER) (test tfjv=941) 13.4 GM/DL 12.0-15.0 HEMATOCRIT (BEAKER) (test fmio=486) 40.7 % 36.0-45.0 MEAN CORPUSCULAR VOLUME (BEAKER) (test iqcx=731) 89.4 fL 82.0-99.0 MEAN CORPUSCULAR HEMOGLOBIN (BEAKER) (test 29.4 pg 27.0-33.0 lzcu=348) MEAN CORPUSCULAR HEMOGLOBIN CONC (BEAKER) (test 32.9 GM/DL 32.0-36.0 vjub=359) RED CELL DISTRIBUTION WIDTH (BEAKER) (test 14.7 % 10.3-14.2 fgvv=463) PLATELET COUNT (BEAKER) (test bvzi=828) 228 K/CU MM 150-430 MEAN PLATELET VOLUME (BEAKER) (test ozqw=436) 6.4 fL 6.5-10.5 NUCLEATED RED BLOOD CELLS (BEAKER) (test 0 /100 WBC 0-0 vnho=065) NEUTROPHILS RELATIVE PERCENT (BEAKER) (test 86 % dujv=364) LYMPHOCYTES RELATIVE PERCENT (BEAKER) (test 10 % ywyh=437) MONOCYTES RELATIVE PERCENT (BEAKER) (test 4 % mtbj=180) EOSINOPHILS RELATIVE PERCENT (BEAKER) (test 0 % xbcq=082) BASOPHILS RELATIVE PERCENT (BEAKER) (test 0 % vcjz=420) NEUTROPHILS ABSOLUTE COUNT (BEAKER) (test 14.60 K/ L 1.80-8.00 rrzo=364) LYMPHOCYTES ABSOLUTE COUNT (BEAKER) (test 1.68 K/ L 1.48-4.50 qhke=173) MONOCYTES ABSOLUTE COUNT (BEAKER) (test 0.70 K/ L 0.00-1.30 xvaq=822) EOSINOPHILS ABSOLUTE COUNT (BEAKER) (test 0.04 K/ L 0.00-0.50 wxrm=787) BASOPHILS ABSOLUTE COUNT (BEAKER) (test 0.06 K/ L 0.00-0.20 irky=694) 0.00BLOOD GAS, [id number] 21:20:00 Test Item Value Reference Range Comments PH ARTERIAL (BEAKER) (test qfki=351) 7.28 7.35-7.45 PCO2 ARTERIAL (BEAKER) (test ezzp=459) 51 mmHg 35-45 PO2 ARTERIAL (BEAKER) (test auwx=984) 150 mmHg 80-90 O2 SATURATION ARTERIAL (BEAKER) (test kuiz=128) 98.7 % 96.0-97.0 HCO3 ARTERIAL (BEAKER) (test bwtr=208) 24 mmol/L 21-29 BASE EXCESS ARTERIAL (BEAKER) (test jxzj=241) -3.7 mmol/L -2.0-3.0 PATIENT TEMPERATURE (BEAKER) (test nmct=8094) 36.9 C FIO2 (BEAKER) (test bugj=2180) 100.0 % BLOOD GAS, [id number] 18:58:00 Test Item Value Reference Range Comments PH ARTERIAL (BEAKER) (test ucky=729) 7.37 7.35-7.45 PCO2 ARTERIAL (BEAKER) (test vgbb=503) 39 mmHg 35-45 PO2 ARTERIAL (BEAKER) (test ydtm=384) 116 mmHg 80-90 O2 SATURATION ARTERIAL (BEAKER) (test txjh=530) 98.1 % 96.0-97.0 HCO3 ARTERIAL (BEAKER) (test uvoh=719) 22 mmol/L 21-29 BASE EXCESS ARTERIAL (BEAKER) (test ywoq=607) -3.2 mmol/L -2.0-3.0 PATIENT TEMPERATURE (BEAKER) (test iydv=3928) 37.0 C GLUCOSE-STAT [id number] 18:58:00 Test Item Value Reference Range Comments GLUCOSE RANDOM (BEAKER) (test rvyi=173) 179 mg/dL 70-110 CALCIUM, [id number] 18:58:00 Test Item Value Reference Range Comments CALCIUM IONIZED (BEAKER) (test mwbi=580) 0.96 mmol/L 1.12-1.27 PH, BLOOD (BEAKER) (test suqd=9365) 7.37 SODIUM NA-STAT [id number] 18:57:00 Test Item Value Reference Range Comments SODIUM (BEAKER) (test waav=128) 138 meq/L 135-148 POTASSIUM-STAT [id number] 18:57:00 Test Item Value Reference Range Comments POTASSIUM (BEAKER) (test avya=450) 3.8 meq/L 3.6-5.5 HGB/HCT (H&H) - STAT [id number] 18:57:00 Test Item Value Reference Range Comments HEMOGLOBIN (BEAKER) (test hqkk=472) 12.8 g/dL 12.0-15.0 HEMATOCRIT (BEAKER) (test bqqd=196) 38.0 % 36.0-45.0 SODIUM NA-STAT [id number] 17:20:00 Test Item Value Reference Range Comments SODIUM (BEAKER) (test wnxu=481) 138 meq/L 135-148 POTASSIUM-STAT [id number] 17:20:00 Test Item Value Reference Range Comments POTASSIUM (BEAKER) (test bbft=267) 3.8 meq/L 3.6-5.5 HGB/HCT (H&H) - STAT [id number] 17:20:00 Test Item Value Reference Range Comments HEMOGLOBIN (BEAKER) (test wluu=761) 12.8 g/dL 12.0-15.0 HEMATOCRIT (BEAKER) (test mvox=283) 38.0 % 36.0-45.0 BLOOD GAS, [id number] 17:20:00 Test Item Value Reference Range Comments PH ARTERIAL (BEAKER) (test zate=820) 7.38 7.35-7.45 PCO2 ARTERIAL (BEAKER) (test zqfb=286) 40 mmHg 35-45 PO2 ARTERIAL (BEAKER) (test asvo=989) 103 mmHg 80-90 O2 SATURATION ARTERIAL (BEAKER) (test sjeo=506) 97.6 % 96.0-97.0 HCO3 ARTERIAL (BEAKER) (test ldye=500) 23 mmol/L 21-29 BASE EXCESS ARTERIAL (BEAKER) (test oazs=902) -1.9 mmol/L -2.0-3.0 PATIENT TEMPERATURE (BEAKER) (test asoa=5443) 37.0 C FIO2 (BEAKER) (test rjsf=2878) 100.0 % GLUCOSE-STAT [id number] 17:20:00 Test Item Value Reference Range Comments GLUCOSE RANDOM (BEAKER) (test poio=962) 167 mg/dL 70-110 CALCIUM, [id number] 17:20:00 Test Item Value Reference Range Comments CALCIUM IONIZED (BEAKER) (test ubjd=607) 1.09 mmol/L 1.12-1.27 PH, BLOOD (BEAKER) (test hjbl=7443) 7.38 BLOOD GAS, [id number] 16:34:00 Test Item Value Reference Range Comments PH ARTERIAL (BEAKER) (test pakf=241) 7.31 7.35-7.45 PCO2 ARTERIAL (BEAKER) (test qzsy=778) 49 mmHg 35-45 PO2 ARTERIAL (BEAKER) (test vjsv=829) 141 mmHg 80-90 O2 SATURATION ARTERIAL (BEAKER) (test xwws=090) 98.6 % 96.0-97.0 HCO3 ARTERIAL (BEAKER) (test unnd=907) 24 mmol/L 21-29 BASE EXCESS ARTERIAL (BEAKER) (test rsxn=446) -2.3 mmol/L -2.0-3.0 PATIENT TEMPERATURE (BEAKER) (test rkls=8371) 37.0 C FIO2 (BEAKER) (test sokm=6122) 100.0 % GLUCOSE-STAT [id number] 16:34:00 Test Item Value Reference Range Comments GLUCOSE RANDOM (BEAKER) (test hvlq=679) 151 mg/dL 70-110 CALCIUM, [id number] 16:34:00 Test Item Value Reference Range Comments CALCIUM IONIZED (BEAKER) (test dxyc=845) 1.11 mmol/L 1.12-1.27 PH, BLOOD (BEAKER) (test svxc=3878) 7.31 SODIUM NA-STAT [id number] 16:33:00 Test Item Value Reference Range Comments SODIUM (BEAKER) (test dusu=546) 139 meq/L 135-148 POTASSIUM-STAT [id number] 16:33:00 Test Item Value Reference Range Comments POTASSIUM (BEAKER) (test jomp=673) 3.6 meq/L 3.6-5.5 HGB/HCT (H&H) - STAT [id number] 16:33:00 Test Item Value Reference Range Comments HEMOGLOBIN (BEAKER) (test omas=604) 13.0 g/dL 12.0-15.0 HEMATOCRIT (BEAKER) (test xozw=614) 38.0 % 36.0-45.0 BLOOD GAS, [id number] 15:56:00 Test Item Value Reference Range Comments PH ARTERIAL (BEAKER) (test kdtx=634) 7.34 7.35-7.45 PCO2 ARTERIAL (BEAKER) (test wzdv=157) 46 mmHg 35-45 PO2 ARTERIAL (BEAKER) (test vjzl=214) 87 mmHg 80-90 O2 SATURATION ARTERIAL (BEAKER) (test fcsw=866) 96.4 % 96.0-97.0 HCO3 ARTERIAL (BEAKER) (test yiao=571) 24 mmol/L 21-29 BASE EXCESS ARTERIAL (BEAKER) (test hxfg=991) -2.0 mmol/L -2.0-3.0 PATIENT TEMPERATURE (BEAKER) (test pajh=2645) 36.1 C FIO2 (BEAKER) (test zgla=3019) 100.0 % GLUCOSE-STAT [id number] 15:56:00 Test Item Value Reference Range Comments GLUCOSE RANDOM (BEAKER) (test ytpa=446) 142 mg/dL 70-110 CALCIUM, [id number] 15:56:00 Test Item Value Reference Range Comments CALCIUM IONIZED (BEAKER) (test bres=551) 1.03 mmol/L 1.12-1.27 PH, BLOOD (BEAKER) (test enka=3658) 7.32 SODIUM NA-STAT [id number] 15:55:00 Test Item Value Reference Range Comments SODIUM (BEAKER) (test hqgg=915) 138 meq/L 135-148 POTASSIUM-STAT [id number] 15:55:00 Test Item Value Reference Range Comments POTASSIUM (BEAKER) (test vzem=207) 3.8 meq/L 3.6-5.5 HGB/HCT (H&H) - STAT [id number] 15:55:00 Test Item Value Reference Range Comments HEMOGLOBIN (BEAKER) (test itnj=896) 13.5 g/dL 12.0-15.0 HEMATOCRIT (BEAKER) (test yvhn=160) 40.0 % 36.0-45.0 URINALYSIS W/ [id number] 13:28:00 Test Item Value Reference Range Comments COLOR (BEAKER) (test rguo=767) Yellow CLARITY (BEAKER) (test coco=465) Hazy SPECIFIC GRAVITY UA (BEAKER) (test 1.013 1.001-1.035 wzhe=819) PH UA (BEAKER) (test yazu=927) 5.5 5.0-8.0 PROTEIN UA (BEAKER) (test ftbs=683) 10 mg/dL Negative GLUCOSE UA (BEAKER) (test wbgy=981) Negative Negative KETONES UA (BEAKER) (test amjc=179) Negative Negative BILIRUBIN UA (BEAKER) (test gdlz=711) Negative Negative BLOOD UA (BEAKER) (test vizv=538) Trace Negative NITRITE UA (BEAKER) (test jzrn=113) Negative Negative LEUKOCYTE ESTERASE UA (BEAKER) (test Large Negative hzxw=750) UROBILINOGEN UA (BEAKER) (test vhxj=160) 0.2 mg/dL 0.2-1.0 RBC UA (BEAKER) (test nugo=005) 3 /HPF WBC UA (BEAKER) (test jcab=367) 128 /HPF BACTERIA (BEAKER) (test vktl=980) Occasional MUCUS (BEAKER) (test vcpr=7061) Rare SQUAMOUS EPITHELIAL (BEAKER) (test < /HPF etbb=713) SOURCE(BEAKER) (test fcqq=2709) Urine, Clean Catch POCT-GLUCOSE [id number] 12:50:00 Test Item Value Reference Range Comments POC-GLUCOSE METER (BEAKER) 146 mg/dL 70-110 TESTED AT [facility] [address] [facility] (test ydcf=2011) [facility] [id number] URINE [id number] 09:26:00 Test Item Value Reference Range Comments CULTURE (BEAKER) (test 50-59,000 col/mL Myroides rhko=6340) speciesMost closely resembles <10,000 col/mL Beta hemolytic strepURINALYSIS W/ [id number] 11:15: 00 Test Item Value Reference Range Comments COLOR (BEAKER) (test nmwo=372) Yellow CLARITY (BEAKER) (test mqex=223) Hazy SPECIFIC GRAVITY UA (BEAKER) (test zxfc=239) 1.013 1.001-1.035 PH UA (BEAKER) (test epgu=240) 6.0 5.0-8.0 PROTEIN UA (BEAKER) (test gggk=655) 10 mg/dL Negative GLUCOSE UA (BEAKER) (test wtos=324) Negative Negative KETONES UA (BEAKER) (test uada=558) Negative Negative BILIRUBIN UA (BEAKER) (test jqzs=579) Negative Negative BLOOD UA (BEAKER) (test ifzy=728) Small Negative NITRITE UA (BEAKER) (test duxh=806) Negative Negative LEUKOCYTE ESTERASE UA (BEAKER) (test zulm=257) Large Negative UROBILINOGEN UA (BEAKER) (test rljm=858) 0.2 mg/dL 0.2-1.0 RBC UA (BEAKER) (test wbfz=665) 3 /HPF WBC UA (BEAKER) (test jplz=972) > /HPF BACTERIA (BEAKER) (test tlce=764) Occasional SQUAMOUS EPITHELIAL (BEAKER) (test wbis=164) < /HPF YEAST (BEAKER) (test ogbm=1994) Occasional SOURCE(BEAKER) (test serz=7258) BASIC METABOLIC [id number] 11:08:00 Test Item Value Reference Range Comments SODIUM (BEAKER) (test 140 meq/L 136-145 pgcw=863) POTASSIUM (BEAKER) (test 4.3 meq/L 3.5-5.1 Specimen slightly wutd=016) hemolyzed CHLORIDE (BEAKER) (test 104 meq/L 98-107 xcvl=662) CO2 (BEAKER) (test 26 meq/L 22-29 zghx=451) BLOOD UREA NITROGEN 19 mg/dL 7-21 (BEAKER) (test lsiy=377) CREATININE (BEAKER) (test 0.85 mg/dL 0.57-1.25 Specimen slightly niue=592) hemolyzed GLUCOSE RANDOM (BEAKER) 141 mg/dL 70-105 (test qlct=906) CALCIUM (BEAKER) (test 9.5 mg/dL 8.4-10.2 cqgk=630) EGFR (BEAKER) (test 69 mL/min/1.73 sq m ESTIMATED GFR IS NOT lbec=9185) ACCURATE CREATININE CLEARANCE IN PREDICTING GLOMERULAR FILTRATION RATE. ESTIMATED GFR IS NOT APPLICABLE FOR DIALYSIS PATIENTS. PROTHROMBIN [id number] 10:58:00 Test Item Value Reference Range Comments PROTIME (BEAKER) (test wpng=364) 12.8 seconds 11.7-14.7 INR (BEAKER) (test ckyw=259) 1.0 <=5.9 RECOMMENDED COUMADIN/WARFARIN INR THERAPY RANGESSTANDARD DOSE: 2.0 - 3.0 Includes: PROPHYLAXIS forvenous thrombosis, systemic embolization; TREATMENT for venous thrombosis and/or pulmonary embolus.HIGH RISK: Target INR is 2.5-3.5 for patients with mechanical heart valves.[id number] 10:58:00 Test Item Value Reference Range Comments PARTIAL THROMBOPLASTIN TIME (BEAKER) (test 35.7 seconds 22.5-36.0 qprm=918) CBC W/PLT COUNT & AUTO [id number] 10:48:00 Test Item Value Reference Range Comments WHITE BLOOD CELL COUNT (BEAKER) (test loxh=035) 10.6 K/ L 4.0-10.0 RED BLOOD CELL COUNT (BEAKER) (test sfnw=263) 5.12 M/ L 4.00-5.00 HEMOGLOBIN (BEAKER) (test dbyt=671) 14.8 GM/DL 12.0-15.0 HEMATOCRIT (BEAKER) (test nzmx=159) 45.9 % 36.0-45.0 MEAN CORPUSCULAR VOLUME (BEAKER) (test jlbu=270) 89.5 fL 82.0-99.0 MEAN CORPUSCULAR HEMOGLOBIN (BEAKER) (test 29.0 pg 27.0-33.0 gmxl=031) MEAN CORPUSCULAR HEMOGLOBIN CONC (BEAKER) (test 32.4 GM/DL 32.0-36.0 pfql=071) RED CELL DISTRIBUTION WIDTH (BEAKER) (test 14.8 % 10.3-14.2 odax=116) PLATELET COUNT (BEAKER) (test zsqj=564) 255 K/CU MM 150-430 MEAN PLATELET VOLUME (BEAKER) (test dilz=057) 6.7 fL 6.5-10.5 NUCLEATED RED BLOOD CELLS (BEAKER) (test 0 /100 WBC 0-0 frhq=746) NEUTROPHILS RELATIVE PERCENT (BEAKER) (test 59 % whaj=749) LYMPHOCYTES RELATIVE PERCENT (BEAKER) (test 31 % xfhx=677) MONOCYTES RELATIVE PERCENT (BEAKER) (test 6 % yjlc=031) EOSINOPHILS RELATIVE PERCENT (BEAKER) (test 2 % wvmf=759) BASOPHILS RELATIVE PERCENT (BEAKER) (test 1 % iixx=900) NEUTROPHILS ABSOLUTE COUNT (BEAKER) (test 6.30 K/ L 1.80-8.00 pcyz=445) LYMPHOCYTES ABSOLUTE COUNT (BEAKER) (test 3.34 K/ L 1.48-4.50 qqjn=414) MONOCYTES ABSOLUTE COUNT (BEAKER) (test 0.68 K/ L 0.00-1.30 yqqr=925) EOSINOPHILS ABSOLUTE COUNT (BEAKER) (test 0.20 K/ L 0.00-0.50 xhzl=324) BASOPHILS ABSOLUTE COUNT (BEAKER) (test 0.12 K/ L 0.00-0.20 clok=592) 0.00
[2017-11-16 15:36] LABS: Urine Blood 2+ (NEG); Urine Glucose NEGATIVE (NEG); Urine Protein 1+ (NEG); Urine pH 5.5 (5.0-7.0)
[2017-11-16 15:45] LABS: Absolute Lymphocytes (CBC) 2.3 K/uL (0.7-4.9); Absolute Neutrophil 9.7 K/uL (1.8-8.0); Basophils % 0.6 % (0-1.3); Eosinophils % 0.8 % (0-4.4); Hematocrit 41.5 % (36.0-45.0); Lymphocytes % 17.7 % (15.3-44.8); MCH 28.4 pg (27.0-35.0); MCV 82.9 fL (80-100); MPV 7.3 fL (7.6-11.3); Monocytes % 7.5 % (3.3-12.3); RBC Red Blood Cell Count 5.01 M/uL (3.86-4.86)
[2017-11-16 15:53] LABS: Potassium 4.1 mEq/L (3.6-5.0)
--- NOTE | 2017-11-16 15:54 | RAD REPORT ---
EXAM DESCRIPTION: CT - Stone Protocol - 11/16/2017 3:42 pm CLINICAL HISTORY: Flank pain. COMPARISON: 10/08/2017, 03/02/2017, 02/17/2017 TECHNIQUE: Axial images were obtained without oral or IV contrast. Lack of contrast limits solid org an and vascular assessment. The xlynd-zi-lgyf spans the entirety of the system partially obscuring uppermost abdomen and lung bases. Coronal reformatted images were obtained and reviewed. All CT scans are performed using dose optimization technique as appropriate and may include automated exposure control or mA/KV adjustment according to patient size. FINDINGS: The lower lung morrow are clear. Diffuse fatty liver is noted. Vague area of diminished density in the liver appears unchanged in the left lobe anteriorly. No biliary dilatation. The spleen is normal in size. . The pancreas and adrenal glands are normal. No pathologic lymphadenopathy in the abdomen or pelvis. Severe chronic left-sided hydronephrosis is present with significant left renal cortical thinning. Th e right kidney shows no stone or hydronephrosis. Small calcification urinary bladder anteriorly is un changed. No bowel obstruction, free air, free fluid or abscess. Sigmoid diverticulosis is present without dive rticulitis. Small fat containing umbilical hernia. A normal appendix is visualized.Mildly prominent r etroperitoneal lymph nodes are seen bilaterally. Prominent lower lumbar degenerative changes present with vacuum disc degeneration at L5-S1. IMPRESSION: Severe chronic left hydronephrosis is again noted, with cortical left renal thinning. Fi ndings appear mildly progressive compared to the prior examination. No right-sided renal calculus or hydronephrosis suspected. Diffuse fatty liver.
[2017-11-16 15:59] LABS: Bilirubin Direct 0.1 mg/dL (0-0.2); Bilirubin Total 0.7 mg/dL (0.3-1.2); Protein, Total 6.7 g/dL (6.0-8.3)
[2017-11-16] MEDS ORDERED: ONDANSETRON 4 MG/2 ML VIAL ONE (16:00)
[2017-11-16] MEDS ORDERED: FENTANYL CITR 100 MCG/2 ML ONE (16:00)
[2017-11-16 16:03] LABS: Urine Bacteria <20 /HPF (<20); Urine Culture Reflex Order REFLEXED
[2017-11-16] MEDS ORDERED: KETOROLAC 30 MG/ML INJ ONE (16:45)
[2017-11-16] MEDS ORDERED: CEFTRIAXONE/SWI 1gm 2 GM/20 ML SYR ONE (17:36)
[2017-11-16] MEDS ORDERED: NA CHLORIDE 0.9% 100 ML IV ONE (17:36)
--- NOTE | 2017-11-16 17:52 | ER ---
Nurse's Notes [facility] Unit Name: Ankita Todd Age: 57 yrs Sex: Female : 1960 Arrival Date: 11/16/2017 Time: 14:25 Bed 20 Private MD: Diagnosis: Urinary tract infection, site not specified Presentation: 11/16 14:38 Presenting complaint: Patient states: L lower back is hurting this morning, i had 6 hj surgeries on my L kidney for stones; reports fever and chills;. Transition of care: patient was not received from another setting of care. Onset of symptoms was November 16, 2017. Care prior to arrival: None. 14:38 Method Of Arrival: Ambulatory 14:38 Acuity: BRYAN 3 hj Triage Assessment: 14:42 General: Appears in no apparent distress. uncomfortable, Behavior is calm, cooperative, hj appropriate for age. Pain: Complains of pain in left low back Pain currently is 8 out of 10 on a pain scale. GI: Reports nausea. Historical: - Allergies: 14:42 Demerol; hj 14:42 Diflucan; hj 14:42 Morphine (Doesn't Work); hj 14:42 Nitrofurantoin Macrocrystal; hj 14:42 tramadol; hj - Home Meds: 14:42 Bystolic 5 mg oral tab 1 tab once daily [Active]; metformin 500 mg Oral Tb24 1 tab once hj daily [Active]; - PMHx: 14:42 Anxiety; Colitis; Diabetes - NIDDM; High Cholesterol; Hypertension; kidney stent; hj - PSHx: 14:42 Kidney Stent placement; Kidney Stent Removal; hj - Immunization history:: Adult Immunizations up to date. - Social history:: Smoking status: Patient uses tobacco products, smokes one pack cigarettes per day. Screenin:34 Abuse screen: Denies threats or abuse. Denies injuries from another. Nutritional ch screening: No deficits noted. Tuberculosis screening: No symptoms or risk factors identified. Fall Risk None identified. Assessment: 14:43 GI: Abdomen is. hj 15:34 Reassessment: Patient appears in no apparent distress at this time. Patient and/or ch family updated on plan of care and expected duration. Pain level reassessed. Patient is alert, oriented x 3, equal unlabored respirations, skin warm/dry/pink. Pain: Complains of pain in left low back Pain currently is 8 out of 10 on a pain scale. Pain began suddenly, 0830. Respiratory: Airway is patent Respiratory effort is even, unlabored, Breath sounds are coarse bilaterally. Breath sounds with wheezes bilaterally. GI: Bowel sounds present X 4 quads. Abd is soft and non tender X 4 quads. Reports nausea. : Reports pain in lower back urinary frequency. Derm: Skin is pink, warm \T\ dry. 18:20 Reassessment: Patient appears in no apparent distress at this time. Patient and/or iw family updated on plan of care and expected duration. Pain level reassessed. Patient is alert, oriented x 3, equal unlabored respirations, skin warm/dry/pink. Patient states feeling better. Patient states symptoms have improved. Vital Signs: 14:43 BP 125 / 79; Pulse 75; Resp 18; Temp 98.4(TE); Pulse Ox 94% on R/A; Weight 126.55 kg; hj Height 5 ft. 7 in. (170.18 cm); Pain 8/10; 15:34 BP 124 / 58; Pulse 70; Resp 16; Temp 98.8; Pulse Ox 98% on R/A; Pain 8/10; ch 14:43 Body Mass Index 43.70 (126.55 kg, 170.18 cm) ED Course: 14:25 Patient arrived in ED. rg4 14:41 Triage completed. hj 14:43 Arm band placed on left wrist. 14:51 He Rosario PA is PHCP. cp 14:51 He Jamison MD is Attending Physician. cp 15:33 Yessica Valerio, JULIO C is Primary Nurse. ch 15:34 No apparent distress. Resting quietly. ch 15:34 Patient has correct armband on for positive identification. Bed in low position. Call light in reach. Side rails up X 1. Adult w/ patient. 15:34 No provider procedures requiring assistance completed. Inserted saline lock: 22 gauge ch in right forearm, using aseptic technique. 15:43 CT Stone Protocol In Process Unspecified. EDMS 18:29 IV discontinued, intact, bleeding controlled, No redness/swelling at site. Pressure iw dressing applied. Administered Medications: 15:45 Drug: Zofran 4 mg Route: IVP; Site: right forearm; 16:45 Follow up: Response: No adverse reaction; Marked relief of symptoms 16:08 Drug: fentaNYL (PF) 25 mcg Route: IVP; Site: right forearm; 16:45 Follow up: Response: No adverse reaction; Marked relief of symptoms 16:30 Drug: TORadol 30 mg Route: IVP; Site: right forearm; 16:46 Follow up: Response: No adverse reaction; No change in condition 17:45 Drug: Rocephin - (cefTRIAXone) 2 grams Route: IVPB; Infused Over: 30 mins; Site: right iw antecubital; 18:00 Follow up: IV Status: Completed infusion Outcome: 17:51 Discharge ordered by MD. cp 18:29 Discharged to home ambulatory, with family. 18:29 Condition: good 18:29 Discharge instructions given to patient, family, Instructed on discharge instructions, follow up and referral plans. medication usage, Demonstrated understanding of instructions, follow-up care, medications, Prescriptions given X 3. 18:30 Patient left the ED. Signatures: Dispatcher [employer] EDMS Yessica Valerio RN RN Mily De La Cruz RN RN Kashif Leung RN RN He Rosario PA PA Clementina Bui rg4 Corrections: (The following items were deleted from the chart) 14:45 14:43 Pulse 75bpm; Resp 18bpm; Pulse Ox 94% RA; Temp 98.4F Temporal; 126.55 kg; Height hj 5 ft. 7 in.; BMI: 43.7; Pain 8/10; hj
--- NOTE | 2017-11-16 17:52 | EDPHYS ---
Physician Documentation [facility] Name: Ankita Todd Age: 57 yrs Sex: Female : 1960 Arrival Date: 11/16/2017 Time: 14:25 Bed 20 Private MD: ED Physician He Jamison HPI: 11/16 15:10 This 57 yrs old Female presents to ER via Ambulatory with complaints of cp KIDNEY PAIN, Nausea. 15:10 The patient complains of pain in the left mid back. The pain does not radiate. cp 15:10 Onset: The symptoms/episode began/occurred this morning. Associated signs and symptoms: cp Pertinent positives: fever, nausea, Pertinent negatives: diarrhea, dizziness, dysuria, headache, pain radiating to the lower extremities, vomiting. Severity of pain: in the emergency department the pain is actually worse moderately. Historical: - Allergies: 14:42 Demerol; hj 14:42 Diflucan; hj 14:42 Morphine (Doesn't Work); hj 14:42 Nitrofurantoin Macrocrystal; hj 14:42 tramadol; hj - Home Meds: 14:42 Bystolic 5 mg oral tab 1 tab once daily [Active]; metformin 500 mg Oral Tb24 1 tab once hj daily [Active]; - PMHx: 14:42 Anxiety; Colitis; Diabetes - NIDDM; High Cholesterol; Hypertension; kidney stent; hj - PSHx: 14:42 Kidney Stent placement; Kidney Stent Removal; hj - Immunization history:: Adult Immunizations up to date. - Social history:: Smoking status: Patient uses tobacco products, smokes one pack cigarettes per day. ROS: 16:20 Constitutional: Negative for body aches, chills, fever, poor PO intake. cp 16:20 Eyes: Negative for injury, pain, redness, and discharge, ENT: Negative for injury, cp pain, and discharge, Neck: Negative for injury, pain, and swelling, Cardiovascular: Negative for chest pain, palpitations, and edema, Respiratory: Negative for shortness of breath, cough, wheezing, and pleuritic chest pain. 16:20 Abdomen/GI: Positive for nausea, Negative for abdominal pain, vomiting, diarrhea, constipation, black/tarry stool, rectal bleeding. 16:20 Back: Positive for flank pain, on the left. 16:20 : Negative for urinary symptoms. 16:20 Skin: Negative for cellulitis, rash. 16:20 Neuro: Negative for altered mental status, headache, numbness, tingling, weakness. 16:20 All other systems are negative. Exam: 16:23 Head/Face: Normocephalic, atraumatic. Eyes: Pupils equal round and reactive to light, cp extra-ocular motions intact. Lids and lashes normal. Conjunctiva and sclera are non-icteric and not injected. Cornea within normal limits. Periorbital areas with no swelling, redness, or edema. ENT: Nares patent. No nasal discharge, no septal abnormalities noted. Tympanic membranes are normal and external auditory canals are clear. Oropharynx with no redness, swelling, or masses, exudates, or evidence of obstruction, uvula midline. Mucous membranes moist. Neck: Trachea midline, no thyromegaly or masses palpated, and no cervical lymphadenopathy. Supple, full range of motion without nuchal rigidity, or vertebral point tenderness. No Meningismus. Chest/axilla: Normal chest wall appearance and motion. Nontender with no deformity. No lesions are appreciated. 16:23 Constitutional: The patient appears in no acute distress, alert, awake, non-diaphoretic, non-toxic, well developed, well nourished, obese, uncomfortable. 16:23 Cardiovascular: Rate: normal, Rhythm: regular, Edema: is not appreciated, JVD: is not cp appreciated. 16:23 Respiratory: the patient does not display signs of respiratory distress, Respirations: normal, no use of accessory muscles, no retractions, no splinting, no tachypnea, labored breathing, is not present, Breath sounds: are clear throughout, no decreased breath sounds, no stridor, no wheezing. 16:23 Abdomen/GI: Inspection: obese Bowel sounds: active, all quadrants, Palpation: soft, in all quadrants, mild abdominal tenderness, in all quadrants, rebound tenderness, is not appreciated, voluntary guarding, is not appreciated, involuntary guarding, is not appreciated. 16:23 : CVA tenderness, on the left. 16:23 Musculoskeletal/extremity: Exam is negative for bony tenderness, calf tenderness, decreased range of motion, injury. 16:23 Skin: cellulitis, is not appreciated, no rash present. 16:23 Neuro: Orientation: to person, place \T\ time. Mentation: lucid, able to follow commands, Cerebellar function: is grossly normal, Motor: moves all fours, strength is normal, Sensation: no obvious gross deficits. Vital Signs: 14:43 BP 125 / 79; Pulse 75; Resp 18; Temp 98.4(TE); Pulse Ox 94% on R/A; Weight 126.55 kg; hj Height 5 ft. 7 in. (170.18 cm); Pain 8/10; 15:34 BP 124 / 58; Pulse 70; Resp 16; Temp 98.8; Pulse Ox 98% on R/A; Pain 8/10; ch 14:43 Body Mass Index 43.70 (126.55 kg, 170.18 cm) hj MDM: 14:51 Patient medically screened. cp 16:00 Differential diagnosis: nephrolithiasis, pyelonephritis, UTI, diverticulitis, cp pancreatitis, ruptured AAA, dissecting AAA. 16:55 Data reviewed: vital signs, nurses notes, lab test result(s), radiologic studies, CT cp scan. 17:48 Counseling: I had a detailed discussion with the patient and/or guardian regarding: the cp historical points, exam findings, and any diagnostic results supporting the discharge/admit diagnosis, lab results, radiology results, the need for outpatient follow up, a urologist, to return to the emergency department if symptoms worsen or persist or if there are any questions or concerns that arise at home. 17:48 Response to treatment: the patient's symptoms have markedly improved after treatment, cp VSS. Pain improved with IV fluids and meds. Will discharge to home for continued monitoring. 11/16 15:15 Order name: Amylase, Serum; Complete Time: 16:48 cp 11/16 15:15 Order name: Basic Metabolic Panel; Complete Time: 16:48 cp 11/16 16:48 Interpretation: Normal except: NA 130; GLUC 182; GFR 56; CRE 1.01. cp 11/16 15:15 Order name: CBC with Diff; Complete Time: 16:48 cp 11/16 16:48 Interpretation: Normal except: WBC 13.2; RBC 5.01; MPV 7.3; NEUT A 9.7. cp 11/16 15:15 Order name: Creatinine for Radiology; Complete Time: 15:55 cp 11/16 17:54 Interpretation: Normal except: GFR 58. cp 11/16 15:15 Order name: Hepatic Function; Complete Time: 16:48 cp 11/16 15:15 Order name: Lipase; Complete Time: 16:48 cp 11/16 15:15 Order name: Urine Microscopic Only; Complete Time: 16:48 cp 11/16 17:54 Interpretation: Normal except: UWBC >50; URBC 5-10; SQEPI 5-10. cp 11/16 15:16 Order name: CT Stone Protocol; Complete Time: 15:55 cp 11/16 15:20 Order name: Urine Dipstick--Ancillary (enter results); Complete Time: 15:55 ag 11/16 17:54 Interpretation: Normal except: UBLD 2+; UPROT 1+; UESTR 3+. cp 11/16 15:20 Order name: Urine --Ancillary (enter results); Complete Time: 15:55 ag 11/16 16:05 Order name: Urine Culture EDMS 11/16 15:15 Order name: Urine Test (obtain specimen); Complete Time: 15:34 cp 11/16 15:15 Order name: IV Saline Lock; Complete Time: 15:34 cp 11/16 15:15 Order name: Labs collected and sent; Complete Time: 15:34 cp 11/16 15:15 Order name: Urine Dipstick-Ancillary (obtain specimen); Complete Time: 15:34 cp Administered Medications: 15:45 Drug: Zofran 4 mg Route: IVP; Site: right forearm; ch 16:45 Follow up: Response: No adverse reaction; Marked relief of symptoms ch 16:08 Drug: fentaNYL (PF) 25 mcg Route: IVP; Site: right forearm; ch 16:45 Follow up: Response: No adverse reaction; Marked relief of symptoms ch 16:30 Drug: TORadol 30 mg Route: IVP; Site: right forearm; ch 16:46 Follow up: Response: No adverse reaction; No change in condition ch 17:45 Drug: Rocephin - (cefTRIAXone) 2 grams Route: IVPB; Infused Over: 30 mins; Site: right iw antecubital; 18:00 Follow up: IV Status: Completed infusion iw Disposition: 11/17 10:23 Co-signature as Attending Physician, He CLAIRE I agree with the assessment and flash plan of care. Disposition: 11/16/17 17:51 Discharged to Home. Impression: Urinary tract infection, site not specified. - Condition is Stable. - Discharge Instructions: Urinary Tract Infection. - Prescriptions for Tylenol- Codeine #3 300-30 mg Oral Tablet - take 2 tablets by ORAL route every 8 hours As needed; 15 tablet. Zofran 4 mg Oral Tablet - take 1 tablet by ORAL route every 12 hours As needed; 20 tablet. Bactrim DS 800- 160 mg Oral Tablet - take 1 tablet by ORAL route every 12 hours for 10 days; 20 tablet. - Medication Reconciliation Form, Thank You Letter, Antibiotic Education, Prescription Opioid Use form. - Follow up: Private Physician; When: 2-3 days, primary urologist; Reason: Recheck today's complaints. - Problem is new. - Symptoms have improved. Signatures: Dispatcher [employer] Yessica Rosa, He Vallejo RN, ch, MD MD cha Williams, Irene, RN RN iw Joaquin, Henry, RN RN hj Page, Corey, ADELSO DARDEN cp Corrections: (The following items were deleted from the chart) 11/16 16:48 15:56 Normal except: NA 130; GLUC 182. cp cp
[2017-11-16 18:36] VITALS: BP 124/58; TEMP 98.8; O2SAT 98
== END 2017-11-16 18:30 | disposition home or self-care (01) ==
LOC: ER 14:23
DX: N39.0 Urinary tract infection, site not specified (principal); F17.210 Nicotine dependence, cigarettes, uncomplicated; I10 Essential (primary) hypertension; E11.9 Type 2 diabetes mellitus without complications; F41.9 Anxiety disorder, unspecified; Z88.5 Allergy status to narcotic agent; Z88.6 Allergy status to analgesic agent; Z88.8 Allergy status to other drugs, medicaments and biological substances
CPT/HCPCS: 36415; 74176; 76377; 80048; 80076; 81003; 81015; 81025; 82150; 83690; 85025; 87086; 87088; 99284; J0696; J2405; J3010

== ENCOUNTER 2018-08-24 21:54 | Observation (INO) | payer BC ==
--- OUTSIDE RECORDS SUMMARY | 2018-08-24 21:57 | XMS REPORT | Clinical Summary ---
:1960 Author Organization [facility] Address [address] [place] [address] Care Team Providers Name Role Phone Peng De Lunamarli Rayil Primary Care Provider Unavailable Allergies Active Allergy Reactions Severity Noted Date Comments Miconazole Nitrate Itching High 02/20/2017 Diphenhydramine Hcl Other (See Comments), High 02/20/2017 Patient states her Anaphylaxis throat "closes up" Hallucinations. Meperidine Other (See Comments) 02/20/2017 Numbness per patient Pt becomes aggressive Fluconazole Itching, Rash High 03/04/2017 Not as bad with intravenous but worse with oral per her pt MPOA Kiara Antunez [phone] Morphine 12/29/2015 Aggressiveness Severe vomiting Tramadol Other (See Comments) 01/16/2017 Paranoia; nightmares Medications Medication Sig Dispensed Refills Start Date End Date Status metaxalone (SKELAXIN) Take 800 mg by 0 Active 800 MG tablet mouth every 6 (six) hours as needed for Muscle spasms. L. ACIDOPHILUS/DIG Take 2 tablets 0 Active ENZ CMB 5 by mouth daily. (PROBIOTIC-DIGESTIVE ENZYMES ORAL) VALERIAN ORAL Take 470 mg by 0 Active mouth as needed . Missing or every 1 (one) 0 Active Non-Formulary hour Kidney Chi Medication otc vitamin . OREGANO OIL ORAL Take by mouth 0 Active daily. KELP ORAL Take by mouth 0 Active daily. GRAPEFRUIT FORMULA Take by mouth 0 Active ORAL daily. COQ10, UBIQUINOL, Take by mouth 0 Active ORAL daily. carica papaya (PAPAYA Take by mouth as 0 Active ENZYME) Tab needed. ENZYMES,DIGESTIVE Take by mouth 0 Active (DIGESTIVE ENZYMES daily. ORAL) vitamin E 400 UNIT Take 400 Units 0 Active capsule by mouth daily. CALCIUM/MAGNESIUM/VIT Take by mouth 0 Active B COMP daily. (OFHKGDZ-CKRAXYUUA-M COMPLEX ORAL) GARLIC ORAL Take by mouth 0 Active daily. metFORMIN Take 500 mg by 0 Active (GLUCOPHAGE) 500 MG mouth daily with tablet breakfast . nebivolol (BYSTOLIC) Take 5 mg by 0 Active 5 MG tablet mouth daily. oxybutynin (DITROPAN) Take 1 tablet (5 90 tablet 3 06/15/2017 06/15/2018 5 MG tablet mg total) by mouth every 8 (eight) hours. docusate sodium Take 1 capsule 20 capsule 0 12/02/2017 12/12/2017 (COLACE) 100 MG (100 mg total) capsule by mouth 2 (two) times daily for 10 days. ondansetron Take 1 tablet (4 10 tablet 0 12/02/2017 12/09/2017 (ZOFRAN-ODT) 4 MG mg total) by disintegrating tablet mouth every 8 (eight) hours as needed for up to 7 days. acetaminophen-codeine Take 1 tablet by 30 tablet 0 12/02/2017 12/12/2017 (TYLENOL #3) 300-30 mouth every 4 mg per tablet (four) hours as needed for up to 10 days. 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 Hypertension, essential 03/03/2017 Controlled type 2 diabetes mellitus without complication, without 03/03/2017 long-term current use of insulin Slow transit constipation 03/03/2017 Occluded PICC line, initial encounter 03/03/2017 Pyelonephritis 03/02/2017 Acute postoperative respiratory insufficiency 01/24/2017 UPJ (ureteropelvic junction) obstruction 01/23/2017 Flank pain 01/28/2016 Hydronephrosis, left 12/29/2015 UPJ obstruction, acquired 12/29/2015 Pelvic mass 12/29/2015 Morbid obesity 12/29/2015 Fatty liver 12/29/2015 Tobacco use 12/29/2015 Encounters Date Type Specialty Care Team Description 02/26/2018 Outside Orders Maria Luz Queen, MACHINE SILK SCREEN PRINTER, RPSGT 01/30/2018 Hospital Encounter Zimmer-Yoly, Morbid obesity (HCC); Na Peres, Controlled type 2 diabetes mellitus with complication, with long-term current use of insulin ([facility]); Sleep apnea, unspecified type; Tobacco use; H/O unilateral nephrectomy 01/11/2018 Orders Only Fahad, Morbid obesity (HCC) (Primary Dx); Natalee Renee, METAL POLISHER AND BUFFER APPRENTICE, Controlled type 2 diabetes mellitus with complication, with long-term current use of insulin ([facility]); 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 Sleep apnea, unspecified type; Tobacco use; H/O unilateral nephrectomy 11/30/2017 Anesthesia Event Mandy Burgess MD 11/30/2017 Surgery Jag Ritchie LAPAROSCOPY,NEPHRECTOM MD Chava Y 11/28/2017 - Hospital Encounter General Internal Dario Singh Severe sepsis (HCC) (Primary Dx); 12/02/2017 Medicine MD Denilson Acute pyelonephritis; Jag Ritchie Intractable cyclical vomiting with nausea; MD Chava Dehydration; Other specified hypotension; Hydronephrosis with renal and ureteral calculus obstruction; Pyelonephritis; Ureteropelvic junction (UPJ) obstruction, right; Complicated UTI (urinary tract infection); Flank pain; Hydronephrosis, left 11/23/2017 Orders Only Pre-Admission Catherine Bean Testing after 08/23/2017 Family History Medical History Relation Name Comments [...] Assigned at Date Recorded Not on file Job Start Date Occupation Industry Not on file Not on file Not on file Travel History Travel Start Travel End No recent travel history available. Last Filed Vital Signs Vital Sign Reading Time Taken Blood Pressure 134/78 12/02/2017 7:49 AM CDT Pulse 81 12/02/2017 7:49 AM CDT Temperature 36 C (96.8 F) 12/02/2017 7:49 AM CDT Respiratory Rate 18 12/02/2017 7:49 AM CDT Oxygen Saturation 95% 12/02/2017 7:49 AM CDT Inhaled Oxygen Concentration - - Weight 127 kg (280 lb) 11/27/2017 11:00 PM CDT Height 170.2 cm (5' 7") 11/27/2017 11:00 PM CDT Body Mass Index 43.85 11/27/2017 11:00 PM CDT Plan of Treatment Health Maintenance Due Date Last Done Comments INFLUENZA VACCINE 05/14/2018 Implants Implanted Type Area Medical Educator Device Shelf Model / Identifier Expiration Serial / Date Lot Set Stent Injection 6x28cm 185-615 - [id number] Stents-Pe Left: BOSTON [id number] / Implanted: Qty: 1 on 12/31/2015 by Jag Ritchie MD [employer] :ONCOLOGY / [id number] Stent Uret Cntour Inj [id number] - [id number] Uro Stent Left: BOSTON 11/24/2017 [id number] / Implanted: Qty: 1 on 09/06/2016 by Jag Ritchie MD [employer]:UROLOGY /GYNE / COLOGY [id number] Stent Uret Cntour Inj [id number] - [id number] Uro Stent Left: BOSTON 06/13/2018 [id number] / Implanted: Qty: 1 on 01/23/2017 by Jag Ritchie MD [employer] SCI:UROLOGY /GYNE / COLOGY [id number] Stent Uret Cntour Inj [id number] - [id number] Uro Stent Left: BOSTON 10/23/2017 [id number] / Implanted: Qty: 1 on 03/10/2017 by Jag Ritchie MD [employer] SCI:UROLOGY /GYNE / COLOGY [id number] Set Stent Injection 6x28cm [id number] - [id number] Uro Stent Right: BOSTON [id number] / Implanted: Qty: 1 on 06/13/2017 by Jag Ritchie MD [employer]: ONCOLOGY / [id number] Procedures Procedure Name Priority Date/Time Associated Comments Diagnosis POLYSOMNOGRAPHY REPORT 03/05/2018 12:10 - SCAN PM CDT POLYSOMNOGRAPHY REPORT 02/02/2018 11:50 - SCAN AM CDT RHYTHM STRIP - SCAN 12/05/2017 7:21 AM CDT CRITICAL CARE Routine 12/03/2017 3:13 Results for this PM CDT procedure are in the results section. POCT-GLUCOSE METER Routine 12/02/2017 7:49 Results for this AM CDT procedure are in the results section. CBC W/PLT COUNT & AUTO Routine 12/02/2017 5:37 Results for this DIFFERENTIAL AM CDT procedure are in the results section. CBC W/PLT COUNT & AUTO Routine 12/02/2017 5:37 Results for this DIFFERENTIAL AM CDT procedure are in the results section. BASIC METABOLIC PANEL Routine 12/02/2017 5:37 Results for this (7) AM CDT procedure are in the results section. POCT-GLUCOSE METER Routine 12/01/2017 9:01 Results for this PM CDT procedure are in the results section. POCT-GLUCOSE METER Routine 12/01/2017 6:03 Results for this PM CDT procedure are in the results section. TRANSFUSION SERVICE 12/01/2017 5:41 REPORT - SCAN PM CDT POCT-GLUCOSE METER Routine 12/01/2017 12:06 Results for this PM CDT procedure are in the results section. POCT-GLUCOSE METER Routine 12/01/2017 7:28 Results for this AM CDT procedure are in the results section. CBC W/PLT COUNT & AUTO Routine 12/01/2017 5:49 Results for this DIFFERENTIAL AM CDT procedure are in the results section. CBC W/PLT COUNT & AUTO Routine 12/01/2017 5:49 Results for this DIFFERENTIAL AM CDT procedure are in the results section. BASIC METABOLIC PANEL Routine 12/01/2017 5:49 Results for this (7) AM CDT procedure are in the results section. POCT-GLUCOSE METER Routine 11/30/2017 8:51 Results for this PM CDT procedure are in the results section. HEMOGLOBIN AND Routine 11/30/2017 12:43 Results for this HEMATOCRIT PM CDT procedure are in the results section. BASIC METABOLIC PANEL Routine 11/30/2017 12:43 Results for this (7) PM CDT procedure are in the results section. TISSUE EXAM AP Routine 11/30/2017 10:25 Results for this AM CDT procedure are in the results section. HGB/HCT (H&H) - STAT STAT 11/30/2017 9:46 Results for this LAB AM CDT procedure are in the results section. GLUCOSE-STAT LAB STAT 11/30/2017 9:46 Results for this AM CDT procedure are in the results section. POTASSIUM-STAT LAB STAT 11/30/2017 9:46 Results for this AM CDT procedure are in the results section. SODIUM NA-STAT LAB STAT 11/30/2017 9:46 Results for this AM CDT procedure are in the results section. BLOOD GAS, ARTERIAL STAT 11/30/2017 9:46 Results for this AM CDT procedure are in the results section. CALCIUM, IONIZED STAT 11/30/2017 9:46 Results for this AM CDT procedure are in the results section. RRL CRITICAL LABS STAT 11/30/2017 9:46 Results for this (ABG,NA,K,H&H,GLUCOSE) AM CDT procedure are in the results section. TYPE AND SCREEN, Routine 11/30/2017 8:30 Results for this AUTOMATED AM CDT procedure are in the results section. LAPAROSCOPY,NEPHRECTOMY 11/30/2017 7:30 Atrophy of kidney AM CDT LACTIC ACID, VENOUS, STAT 11/30/2017 4:56 Results for this WHOLE BLOOD AM CDT procedure are in the results section. PHOSPHORUS Routine 11/30/2017 4:56 Results for this AM CDT procedure are in the results section. MAGNESIUM Routine 11/30/2017 4:56 Results for this AM CDT procedure are in the results section. BASIC METABOLIC PANEL Routine 11/30/2017 4:56 Results for this (7) AM CDT procedure are in the results section. POCT-GLUCOSE METER Routine 11/29/2017 9:00 Results for this PM CDT procedure are in the results section. POCT-GLUCOSE METER Routine 11/29/2017 5:32 Results for this PM CDT procedure are in the results section. POCT-GLUCOSE METER Routine 11/29/2017 11:50 Results for this AM CDT procedure are in the results section. POCT-GLUCOSE METER Routine 11/29/2017 7:34 Results for this AM CDT procedure are in the results section. CBC W/PLT COUNT & AUTO Routine 11/29/2017 3:47 Results for this DIFFERENTIAL AM CDT procedure are in the results section. CBC W/PLT COUNT & AUTO Routine 11/29/2017 3:47 Results for this DIFFERENTIAL AM CDT procedure are in the results section. LACTIC ACID, VENOUS, STAT 11/29/2017 3:47 Results for this WHOLE BLOOD AM CDT procedure are in the results section. PHOSPHORUS Routine 11/29/2017 3:47 Results for this AM CDT procedure are in the results section. MAGNESIUM Routine 11/29/2017 3:47 Results for this AM CDT procedure are in the results section. BASIC METABOLIC PANEL Routine 11/29/2017 3:47 Results for this (7) AM CDT procedure are in the results section. POCT-GLUCOSE METER Routine 11/28/2017 10:25 Results for this PM CDT procedure are in the results section. POCT-GLUCOSE METER Routine 11/28/2017 5:25 Results for this PM CDT procedure are in the results section. URINE CULTURE Routine 11/28/2017 11:00 Results for this AM CDT procedure are in the results section. POCT-GLUCOSE METER Routine 11/28/2017 10:59 Results for this AM CDT procedure are in the results section. IR PERCUTANEOUS Routine 11/28/2017 10:42 Results for this NEPHROSTOMY TUBE AM CDT procedure are in PLACEMENT the results section. POCT-LACTIC ACID, Routine 11/28/2017 4:38 Results for this VENOUS AM CDT procedure are in the results section. PROTHROMBIN TIME/INR STAT 11/28/2017 2:34 Results for this AM CDT procedure are in the results section. CBC W/PLT COUNT & AUTO STAT 11/28/2017 2:08 Results for this DIFFERENTIAL AM CDT procedure are in the results section. PHOSPHORUS STAT 11/28/2017 2:08 Results for this AM CDT procedure are in the results section. MAGNESIUM STAT 11/28/2017 2:08 Results for this AM CDT procedure are in the results section. HEPATIC FUNCTION PANEL STAT 11/28/2017 2:08 Results for this AM CDT procedure are in the results section. LACTIC ACID, VENOUS, STAT 11/28/2017 2:08 Results for this WHOLE BLOOD AM CDT procedure are in the results section. CBC W/PLT COUNT & AUTO STAT 11/28/2017 2:08 Results for this DIFFERENTIAL AM CDT procedure are in the results section. BASIC METABOLIC PANEL STAT 11/28/2017 2:08 Results for this (7) AM CDT procedure are in the results section. BLOOD CULTURE STAT 11/28/2017 2:08 Results for this AM CDT procedure are in the results section. POCT-LACTIC ACID, Routine 11/28/2017 1:58 Results for this VENOUS AM CDT procedure are in the results section. CT ABDOMEN/PELVIS STAT 11/28/2017 12:18 Results for this WITHOUT IV CONTRAST AM CDT procedure are in the results section. LEGIONELLA URINE STAT 11/27/2017 11:18 Results for this ANTIGEN PM CDT procedure are in the results section. URINALYSIS W/ STAT 11/27/2017 11:18 Results for this MICROSCOPIC PM CDT procedure are in the results section. STREP PNEUMONIAE STAT 11/27/2017 11:18 Results for this ANTIGEN PM CDT procedure are in the results section. URINE CULTURE Routine 11/27/2017 11:18 Results for this PM CDT procedure are in the results section. after 08/23/2017 Results POLYSOMNOGRAPHY REPORT - SCAN (03/05/2018 12:10 PM CDT) Narrative Performed At POLYSOMNOGRAPHY REPORT - SCAN (02/02/2018 11:50 AM CDT) Narrative Performed At RHYTHM STRIP - SCAN (12/05/2017 7:21 AM CDT) Narrative Performed At CRITICAL CARE (12/03/2017 3:13 PM CDT) Narrative Performed At Dario Singh MD 12/03/20173:13 PM Critical Care Performed by: DARIO SINGH Authorized by: DARIO SINGH Total critical care time: 35 minutes Critical care time was exclusive of separately billable procedures and treating other patients and teaching time. Critical care was necessary to treat or prevent imminent or life-threatening deterioration of the following conditions: sepsis, renal failure, metabolic crisis and dehydration. Critical care was time spent personally by me on the following activities: development of treatment plan with patient or surrogate, blood draw for specimens, discussions with consultants, discussions with primary provider, interpretation of cardiac output measurements, evaluation of patient's response to treatment, examination of patient, obtaining history from patient or surrogate, ordering and performing treatments and interventions, ordering and review of laboratory studies, ordering and review of radiographic studies, pulse oximetry, re-evaluation of patient's condition and review of old charts. POC-Glucose meter (12/02/2017 7:49 AM CDT)Only the most recent of13 resultswithin the time period is included. POC-Glucose Meter 287 (H)Comment: TESTED AT 70 - 110 mg/dL [facility] [address] [facility] [address] Specimen Blood Performing Organization Address City/State/Zipcode Phone Number [place] [phone] [place] [address] CENTER CBC with platelet count + automated diff (12/02/2017 5:37 AM CDT)Only the most recent of4 resultswithin the time period is included. WBC 10.0 3.5 - 10.5 K/L [facility] RBC 3.72 (L) 3.93 - 5.22 M/L [facility] Hemoglobin 10.1 (L) 11.2 - 15.7 GM/DL [facility] Hematocrit 32.5 (L) 34.1 - 44.9 % [facility] MCV 87.4 79.4 - 94.8 fL [facility] MCH 27.2 25.6 - 32.2 pg [facility] MCHC 31.1 (L) 32.2 - 35.5 GM/DL [facility] RDW 13.7 11.7 - 14.4 % [facility] Platelets 290 150 - 450 K/CU MM [facility] MPV 8.7 (L) 9.4 - 12.3 fL [facility] nRBC 0 0 - 0 /100 WBC [facility] % Neutros 68 % [facility] % Lymphs 16 % [facility] % Monos 11 % [facility] % Eos 3 % [facility] % Baso 1 % [facility] # Neutros 6.82 (H) 1.56 - 6.13 K/L [facility] # Lymphs 1.56 1.18 - 3.74 K/L [facility] # Monos 1.13 (H) 0.24 - 0.36 K/L [facility] # Eos 0.28 0.04 - 0.36 K/L [facility] # Baso 0.05 0.01 - 0.08 K/L [facility] Immature Granulocytes-Relative 2 (H) 0 - 1 % [facility] Specimen Blood - Arm, Right Performing Organization Address [facility]/Zipcode Phone Number [facility] [address] [place] [phone] [place] Basic Metabolic Panel - In AM (12/02/2017 5:37 AM CDT)Only the most recent of6 resultswithin the time period is included. Sodium 138 136 - 145 meq/L [facility] Potassium 4.0 3.5 - 5.1 meq/L [facility] Chloride 105 98 - 107 meq/L [facility] CO2 24 22 - 29 meq/L [facility] BUN 9 7 - 21 mg/dL [facility] Creatinine 1.01 0.57 - 1.25 mg/dL [facility] Glucose 215 (H) 70 - 105 mg/dL [facility] Calcium 9.0 8.4 - 10.2 mg/dL [facility] EGFR 56Comment: ESTIMATED GFR IS mL/min/1.73 sq m [facility] NOT ACCURATE [facility] CLEARANCE IN PREDICTING GLOMERULAR FILTRATION RATE. ESTIMATED GFR IS NOT APPLICABLE FOR DIALYSIS PATIENTS. Specimen Blood - Arm, Right Performing Organization Address City/State/Zipcode Phone Number [facility] [address] [place] [address] [place] TRANSFUSION SERVICE REPORT - SCAN (12/01/2017 5:41 PM CDT) Narrative Performed At Hemoglobin and hematocrit (11/30/2017 12:43 PM CDT) Hemoglobin 10.8 (L) 11.2 - 15.7 GM/DL [facility] Hematocrit 34.0 (L) 34.1 - 44.9 % [facility] Specimen Blood Performing Organization Address City/State/Zipcode Phone Number [facility] [address] [place] [address] [phone] CENTER Tissue Exam (11/30/2017 10:25 AM CDT) Case Report Surgical Pathology Report Case: [id number] [facility] Authorizing Provider:Jag Ritchie MDCollected: 11/30/2017 1025 [facility] Ordering Location: [facility] PERIOPERATIVE Received: 11/30/2017 1255 SERVICES Pathologist: Tony Vallejo MD Specimen:Kidney, Left DIAGNOSIS PART A KIDNEY, LEFT, NEPHRECTOMY ([id number] GRAMS): [facility] CHRONIC AND ACUTE PYELONEPHRITIS. [facility] NO EVIDENCE OF MALIGNANCY FOUR BENIGN LYMPH NODES IDENTIFIED (0/4) WITH BENIGN ENDOSALPINGIOSIS. SEE DIAGNOSTIC COMMENT. Signing Pathologist Direct Phone Line: [phone] COMMENT Two of the lymph nodes show [facility] tubular structures lined by [facility] pseudo-stratified epithelium and no stroma. No atypia or mitosis identified. These structures are positive for CK7, PAX-8 and ER and negative for CDX-2 and CK20 compatible with endosalpingiosis (performed on block A20; CK7, CK20, and PAX8 repeated on A21). Proliferative index for Ki-67 performed on blocks A20 and A21 demonstrate less than 5% positivity within the areas of endosalpingiosis. Selected slides were reviewed with Dr. Hilda Loving, who concurs with a diagnosis of endosalpingiosis. CPT Code(s) 50128, 38010, [id number], 15382 [facility] CLINICAL HISTORY Atrophy of left kidney, chronic [facility] infection [facility] SPECIMEN SOURCE Left kidney [facility] GROSS DESCRIPTION Received fresh labeled "kidney, left" is a 1,076 gm, 22.0 x 14.0 x 7.0 cm, left simple nephrectomy specimen with attached surrounding perinephric adipose tissue. The kidney itself measures 15.0 x 7.[address] [facility] 4.0 cm. A ureter is not identified. The adrenal gland is not present. [facility] There is a 7.0 cm in length x 0.2 cm in diameter white plastic stent, which appears to be inserted into the cortical aspect of the specimen. There is a 3.5 x 2.0 cm, ill-defined, dark-red to mary-white, dense area of fibrous adhesions at the hilum, which may possibly be the ureteropelvic junction. The kidney is bivalved to reveal a dilated pelvis and caliceal system containing yellow-green mucoid material. The surrounding renal parenchyma is pale-camacho and atrophic. No discrete masses are identified. Four pink-camacho to yellow perihilar lymph nodes are identified ranging in size from 1.0 cm to 4.5 cm in greatest dimension. Section code: A1, parallel vascular and possible ureteral resection margins; A2, area of dense insertion; A3-A8, sales representative rural [employer] sections of area of dense adhesions at possible UPJ; A9-A16, representativ e sections of pelvis and caliceal system; A17-A18, sales representative rural [employer] sections of renal parenchyma; A19-A21, one bisected lymph node in each cut surface; A22- A28, one serially sectioned lymph node. DB/ew MICROSCOPIC DESCRIPTION Performed. [facility] SPECIAL STUDIES The following special studies were performed on this case and the interpretation is incorporated in the diagnostic report above: [facility] BLOCK A20- CK7, CK20, PAX8, ER, KI-67 [facility] BLOCK A21- CK7, CK20, PAX8, KI-67 The immunohistochemistry test was developed and its performance characteristics determined by [facility], Pathology Laboratory. It has not been cleared or approved by the U.S. Food and Drug Administration. The FDA has determined that such clearance or approval is not necessary. The test is used for clinical purposes. It should not be regarded as investigational or for research. This laboratory is certified under the Clinical Laboratory Improvement Amendments of 1988 (CLIA-88) as qualified to perform high complexity clinical laboratory testing. Specimen Tissue - Kidney, Left Performing Organization Address [facility] Phone Number [address] [address] [place] Potassium-Stat Lab (11/30/2017 9:46 AM CDT) Potassium 4.0 3.6 - 5.5 meq/L [facility] Specimen Blood, Arterial Performing Organization Address [facility] Phone Number [address] [address] [phone] [place] Sodium Na-Stat Lab (11/30/2017 9:46 AM CDT) Sodium 134 (L) 135 - 148 meq/L [facility] Specimen Blood, Arterial Performing Organization Address [facility] Phone Number [address] [address] [place] Glucose-Stat Lab (11/30/2017 9:46 AM CDT) Glucose 192 (H) 70 - 110 mg/dL [facility] Specimen Blood, Arterial Performing Organization Address [facility] Phone Number [address] [address] [phone] [place] HGB/HCT (H&H)-Stat Lab (11/30/2017 9:46 AM CDT) Hemoglobin 11.7 (L) 12.0 - 15.0 g/dL [facility] [facility] Hematocrit 34.0 (L) 36.0 - 45.0 % [facility] Specimen Blood, Arterial Performing Organization Address [facility] Phone Number [address] [address] [place] Calcium, Ionized (11/30/2017 9:46 AM CDT) Calcium, Ion 1.09 (L) 1.12 - 1.27 mmol/L [facility] pH, Blood 7.38 [facility] Specimen Blood Performing Organization Address [facility] Phone Number [address] [address] [phone] CENTER Blood gas, arterial (11/30/2017 9:46 AM CDT) pH, Arterial 7.38 7.35 - 7.45 [facility] pCO2, Arterial 43 35 - 45 mmHg [facility] pO2, Arterial 82 80 - 90 mmHg [facility] O2 Sat, Arterial 95.8 (L) 96.0 - 97.0 % [facility] HCO3, Arterial 25 21 - 29 mmol/L [facility] Base Excess, Arterial -0.7 -2.0 - 3.0 mmol/L [facility] Patient Temperature 37.0 C [facility] FIO2 100.0 % [facility] Specimen Blood, Arterial Performing Organization Address [facility] Phone Number [address] [address] [phone] CENTER Type and screen, automated (11/30/2017 8:30 AM CDT) ABO/RH AUTOMATED (BEAKER) O NEGATIVE [facility] Ab Scrn NEGATIVE [facility] Specimen Blood Performing Organization Address [facility] Phone Number [address] [address] Lactic acid, venous, whole blood Daily (11/30/2017 4:56 AM CDT)Only the most recent of3 resultswithin the time period is included. Lactate, Venous 0.7Comment: Specimen 0.5 - 2.2 mmol/L [facility] slightly hemolyzed [facility] Specimen Blood Narrative Performed At [facility] Effective 12/16/2015: Units/Reference Range Change New: 0.5-2.2 mmol/LPrevious: 5-20 mg/dL Performing Organization Address [facility] Phone Number [address] [address] [place] Phosphorus (11/30/2017 4:56 AM CDT)Only the most recent of3 resultswithin the time period is included. Phosphorus 3.7 2.3 - 4.7 mg/dL [facility] Specimen Blood Performing Organization Address [facility] Phone Number [address] [address] [place] Magnesium (11/30/2017 4:56 AM CDT)Only the most recent of3 resultswithin the time period is included. Magnesium 1.6 1.6 - 2.6 mg/dL [facility] Specimen Blood Performing Organization Address [facility] Phone Number [address] [address] [place] Urine culture (11/28/2017 11:00 AM CDT)Only the most recent of2 resultswithin the time period is included. Result See comment [facility] Result RAHEEL ALBICANS (A) [facility] Specimen Urine - Urine, Nephrostomy Performing Organization Address [facility] Phone Number [address] [address] CENTER IR Percutaneous Nephrostomy - Ext. Drain Placement (11/28/2017 10:42 AM CDT) Narrative Performed At FINAL REPORT [facility] Percutaneous Nephrostomy: Pertinent clinical information: Urinary tract infection Comparison: No comparison Modality: Sonography and fluoroscopy, seven images were submitted for interpretation. Conscious Sedation: First said 1 mg and fentanyl 75 mcg intravenously During the procedure with conscious sedation, the patient was monitored continuously with pulse oximetry and electrocardiography by the attending physician and registered nurse. Patient/Physician face to face intraservice time: 30 minutes Anesthesia:Two percent Lidocaine injected subcutaneously at the insertion site. Approach: Left flank Labs sent: Culture and sensitivity as requested Antibiotics: The patient is currently on Levaquin and vancomycin For maximum sterile barrier protection a mask, cap, sterile gloves, sterile drape, sterile gown, and a cutaneous antiseptic was utilized. Fluoro time in minutes: 2.2 minutes. Total dose 63.7 mG. Seven images Technique:After informed written consent was obtained, the patient was prepped and draped in the usual sterile manner.Access was obtained using sonographic guidance.A 21-gauge Chiba needle was advanced into the upper collecting system.Subsequently, a wire was advanced through the needle.The tract was dilated to 8 Wolof. A small bore catheter was advanced into the upper collecting system. A nephrostogram demonstrated marked hydronephrosis. Approximately 400 cc of. Once urine was removed from the upper collecting system. A nurse was present and monitored blood pressure measurements, pulse oximetry and ECG tracings. The patient tolerated the procedure well. Impression: Successful, uncomplicated placement of a left percutaneous nephrostomy tube. Signed: Soledad Esquivel MD Report Verified Date/Time:11/28/2017 14:49:28 Reading Location: [address] Body Reading Room Procedure Note Interface, External Ris In - 12/12/2017 10:44 PM CDT FINAL REPORT Percutaneous Nephrostomy: Pertinent clinical information: Urinary tract infection Comparison: No comparison Modality: Sonography and fluoroscopy, seven images were submitted for interpretation. Conscious Sedation: First said 1 mg and fentanyl 75 mcg intravenously During the procedure with conscious sedation, the patient was monitored continuously with pulse oximetry and electrocardiography by the attending physician and registered nurse. Patient/Physician face to face intraservice time: 30 minutes Anesthesia: Two percent Lidocaine injected subcutaneously at the insertion site. Approach: Left flank Labs sent: Culture and sensitivity as requested Antibiotics: The patient is currently on Levaquin and vancomycin For maximum sterile barrier protection a mask, cap, sterile gloves, sterile drape, sterile gown, and a cutaneous antiseptic was utilized. Fluoro time in minutes: 2.2 minutes. Total dose 63.7 mG. Seven images Technique: After informed written consent was obtained, the patient was prepped and draped in the usual sterile manner. Access was obtained using sonographic guidance. A 21-gauge Chiba needle was advanced into the upper collecting system. Subsequently, a wire was advanced through the needle. The tract was dilated to 8 Wolof. A small bore catheter was advanced into the upper collecting system. A nephrostogram demonstrated marked hydronephrosis. Approximately 400 cc of. Once urine was removed from the upper collecting system. A nurse was present and monitored blood pressure measurements, pulse oximetry and ECG tracings. The patient tolerated the procedure well. Impression: Successful, uncomplicated placement of a left percutaneous nephrostomy tube. Signed: Soledad Esquivel MD Report Verified Date/Time: 11/28/2017 14:49:28 Reading Location: [facility] P048 Angio Body Reading Room Performing Organization Address [facility] Phone Number [facility] POC-Lactic Acid, Venous (11/28/2017 4:38 AM CDT)Only the most recent of2 resultswithin the time period is included. POC-Lactic Acid, Venous 1.2Comment: TESTED AT 0.9 - 1.7 mmol/L [address] [address] Specimen Blood Performing Organization Address [facility] Phone Number [address] [address] CENTER Prothrombin time/INR (11/28/2017 2:34 AM CDT) Protime 14.1 11.7 - 14.7 seconds [facility] INR 1.1 <=5.9 [facility] Specimen Blood Narrative Performed At [facility] RECOMMENDED COUMADIN/WARFARIN INR THERAPY RANGES STANDARD DOSE: 2.0 - 3.0 Includes: PROPHYLAXIS for venous thrombosis, systemic embolization; TREATMENT for venous thrombosis and/or pulmonary embolus. HIGH RISK: Target INR is 2.5-3.5 for patients with mechanical heart valves. Performing Organization Address [facility] Phone Number [facility] [address] [place] [address] [place] Blood culture (11/28/2017 2:08 AM CDT) Result No growth in 5 days [facility] Specimen Blood - Arm, Left Performing Organization Address [facility] Phone Number [address] [address] [phone] [place] Hepatic function panel (11/28/2017 2:08 AM CDT) Protein, Total 7.7 6.0 - 8.3 gm/dL [facility] Albumin 3.9 3.5 - 5.0 g/dL [facility] Total Bilirubin 0.3 0.2 - 1.2 mg/dL [facility] Bilirubin, Direct 0.2 0.1 - 0.5 mg/dL [facility] Alkaline Phosphatase 113 40 - 150 U/L [facility] AST 10 5 - 34 U/L [facility] ALT 17 6 - 55 U/L [facility] Specimen Blood Performing Organization Address City/[facility]/Zipcode Phone Number [address] abdomen/pelvis without iv contrast (11/28/2017 12:18 AM CDT) Narrative Performed At Addendum Begins RIS REPORT STATUS:A Addendum: Benign as well as neoplastic processes would be included in differential diagnosis for the left UPJ level obstruction. Results including the possibility of an infected obstructed left renal collecting system discussed with Dr. Singh. Signed: Kimberlyn Arellano MD Report Verified Date/Time:11/28/2017 00:55:04 Reading Location: [address] Reading Room Addendum Ends FINAL REPORT EXAMINATION:CT SCAN OF THE ABDOMEN AND PELVIS CLINICAL HISTORY:Pyelonephritis COMPARISON EXAM: Noncontrast CT 06/22/2017, contrast-enhanced CT 02/01/2017. TECHNIQUE: Axial noncontrast tomographic images were acquired through the abdomen and pelvis. The exam was performed according to our departmental dose optimization program which includes automated exposure control, adjustment of the mA and/or kV according to patient's size and/or use of iterative reconstructive technique. FINDINGS: The heart size is normal. No evidence of a pericardial or pleural effusion. Minimal atelectasis is noted at the lung bases. Liver demonstrates mild diffuse decreased attenuation compatible with a component of fatty infiltration. Focal fatty sparing is noted along the gallbladder fossa. A vague hypodensity is again noted in the left lobe of the liver measuring approximately 12 mm, stable compared to the prior studies. Small size and absence of contrast limits further characterization. The gallbladder and bile ducts are unremarkable. The pancreas is atrophic with fatty infiltration. The spleen is mildly prominent measuring 13 cm. The adrenal glands are unremarkable. There is mild dilatation of the right renal collecting system, improved from 06/22/2017. The right sided ureteral stent has been removed in the interval. A tiny 2 mm nonobstructing calculus is noted in the right renal calyx. The right ureter is decompressed. Dilatation of the left renal collecting system has increased in the interval and is now severe. Asymmetric left perinephric fat stranding is again noted, similar to the prior exam. The lower pole the left kidney is associated with tiny calcifications. Its difficult to determine with certainty if the calcifications are within the renal calyces or cortical. The left ureter is normal in caliber. No evidence of an obstructing ureteral calculus. Numerous lymph nodes are noted in the retroperitoneum, several enlarged including near the left renal vein and along the left side of the abdominal aorta. The stomach is decompressed. The loops of small bowel are normal in caliber. The appendix is unremarkable. A moderate to large volume of inspissated stool is noted throughout the colon suggesting a degree of dysmotility/constipation. Colonic diverticulosis is noted most conspicuous involving the descending and sigmoid segments. There is subtle infiltration of the soft tissues along the descending segment of the colon. Although uncomplicated diverticulitis would be a consideration ,the soft tissue infiltration may also be related to the fat stranding-edema associated with the adjacent left kidney. No evidence of pneumatosis or pneumoperitoneum. The abdominal aorta is normal in caliber. Scattered calcific atherosclerotic plaques are noted involving the aorta. Further characterization the vascular structures is limited by the absence of contrast. The uterus is absent. No evidence of an adnexal mass. A a small calcification is again associated with the ventral wall of the bladder, nonspecific. Small pelvic calcifications are favored to reflect vascular phlebolith. No evidence of an acute osseous abnormality. Diffuse degenerative changes are noted in the lumbar spine including multilevel spinal canal stenosis, most pronounced at L4-L5. IMPRESSION: Severe dilatation of the left renal collecting system, increased compared with 06/22/2017. Although the etiology is indeterminate, a UPJ stenosis should be considered given the normal caliber downstream left ureter. Left perinephric fat stranding, similar to the previous study. Although a component may reflect chronic changes, edema related to obstruction or superimposed infection should also be considered. Recommend clinical correlation. Left perinephric-retroperitoneal adenopathy, increased from previous. Reactive versus neoplastic. Mild right hydronephrosis, improved from 06/22/2017. Tiny 2 mm nonobstructing right renal calculus. Colonic diverticulosis. Mild infiltration of the soft tissues along the left colon, extension of perinephric edema versus early diverticulitis. Constipation. Mildly prominent spleen, 13 cm. Signed: Kimberlyn Arellano MD Report Verified Date/Time:11/28/2017 00:48:48 Reading Location: [address] Reading Room Procedure Note Interface, External Ris In - 11/28/2017 12:57 AM CDT Addendum Begins REPORT STATUS:A Addendum: Benign as well as neoplastic processes would be included in differential diagnosis for the left UPJ level obstruction. Results including the possibility of an infected obstructed left renal collecting system discussed with Dr. Singh. Signed: Kimberlyn Arellano MD Report Verified Date/Time: 11/28/2017 00:55:04 Reading Location: [address] Reading Room Addendum Ends FINAL REPORT EXAMINATION: CT SCAN OF THE ABDOMEN AND PELVIS CLINICAL HISTORY:Pyelonephritis COMPARISON EXAM: Noncontrast CT 06/22/2017, contrast-enhanced CT 02/01/2017. TECHNIQUE: Axial noncontrast tomographic images were acquired through the abdomen and pelvis. The exam was performed according to our departmental dose optimization program which includes automated exposure control, adjustment of the mA and/or kV according to patient's size and/or use of iterative reconstructive technique. FINDINGS: The heart size is normal. No evidence of a pericardial or pleural effusion. Minimal atelectasis is noted at the lung bases. Liver demonstrates mild diffuse decreased attenuation compatible with a component of fatty infiltration. Focal fatty sparing is noted along the gallbladder fossa. A vague hypodensity is again noted in the left lobe of the liver measuring approximately 12 mm, stable compared to the prior studies. Small size and absence of contrast limits further characterization. The gallbladder and bile ducts are unremarkable. The pancreas is atrophic with fatty infiltration. The spleen is mildly prominent measuring 13 cm. The adrenal glands are unremarkable. There is mild dilatation of the right renal collecting system, improved from 06/22/2017. The right sided ureteral stent has been removed in the interval. A tiny 2 mm nonobstructing calculus is noted in the right renal calyx. The right ureter is decompressed. Dilatation of the left renal collecting system has increased in the interval and is now severe. Asymmetric left perinephric fat stranding is again noted, similar to the prior exam. The lower pole the left kidney is associated with tiny calcifications. Its difficult to determine with certainty if the calcifications are within the renal calyces or cortical. The left ureter is normal in caliber. No evidence of an obstructing ureteral calculus. Numerous lymph nodes are noted in the retroperitoneum, several enlarged including near the left renal vein and along the left side of the abdominal aorta. The stomach is decompressed. The loops of small bowel are normal in caliber. The appendix is unremarkable. A moderate to large volume of inspissated stool is noted throughout the colon suggesting a degree of dysmotility/constipation. Colonic diverticulosis is noted most conspicuous involving the descending and sigmoid segments. There is subtle infiltration of the soft tissues along the descending segment of the colon. Although uncomplicated diverticulitis would be a consideration , the soft tissue infiltration may also be related to the fat stranding-edema associated with the adjacent left kidney. No evidence of pneumatosis or pneumoperitoneum. The abdominal aorta is normal in caliber. Scattered calcific atherosclerotic plaques are noted involving the aorta. Further characterization the vascular structures is limited by the absence of contrast. The uterus is absent. No evidence of an adnexal mass. A a small calcification is again associated with the ventral wall of the bladder, nonspecific. Small pelvic calcifications are favored to reflect vascular phlebolith. No evidence of an acute osseous abnormality. Diffuse degenerative changes are noted in the lumbar spine including multilevel spinal canal stenosis, most pronounced at L4-L5. IMPRESSION: Severe dilatation of the left renal collecting system, increased compared with 06/22/2017. Although the etiology is indeterminate, a UPJ stenosis should be considered given the normal caliber downstream left ureter. Left perinephric fat stranding, similar to the previous study. Although a component may reflect chronic changes, edema related to obstruction or superimposed infection should also be considered. Recommend clinical correlation. Left perinephric-retroperitoneal adenopathy, increased from previous. Reactive versus neoplastic. Mild right hydronephrosis, improved from 06/22/2017. Tiny 2 mm nonobstructing right renal calculus. Colonic diverticulosis. Mild infiltration of the soft tissues along the left colon, extension of perinephric edema versus early diverticulitis. Constipation. Mildly prominent spleen, 13 cm. Signed: Kimberlyn Arellano MD Report Verified Date/Time: 11/28/2017 00:48:48 Reading Location: [address] Reading Room Performing Organization Address City/State/Zipcode Phone Number GE [facility] Strep pneumoniae antigen, urine (11/27/2017 11:18 PM CDT) Strep pneumoniae Presumptive negative Presumptive negative [facility] for pneumococcal for pneumococcal [facility] pneumonia - see comment pneumonia - see CENTER comment, Presumptive negative for pneumococcal meningitis - see comment Specimen Urine Narrative Performed At Presumptive negative for pneumococcal [facility] pneumonia, suggesting no current or recent pneumococcal infection. Infection due to S. pneumoniae cannot be ruled out since the antigen present in the sample may be below the detection limit of the test. Performing Organization Address City/State/Zipcode Phone Number [address] [address] [phone] [place] Legionella antigen, urine (11/27/2017 11:18 PM CDT) Legionella Urine Antigen Negative - see [facility] commentComment: Negative [facility] for L. pneumophila serogroup 1 antigen, suggesting no recent or current infection with this serogroup. Legionellosis cannot be ruled out since other serogroups and species may cause disease. Specimen Urine Performing Organization Address City/State/Zipcode Phone Number [address] [address] [phone] [place] Urinalysis w/Microscopic - Clean Catch (11/27/2017 11:18 PM CDT) Color, UA Yellow [facility] Clarity, UA Hazy [facility] Specific [place], UA 1.011 1.001 - 1.035 [facility] pH, UA 6.0 5.0 - 8.0 [facility] Protein, UA 10 mg/dL (A) Negative [facility] Glucose, UA Negative Negative [facility] Ketones, UA Negative Negative [facility] Bilirubin, UA Negative Negative [facility] Blood, UA Small (A) Negative [facility] Nitrite, UA Negative Negative [facility] Leukocytes, UA Large (A) Negative [facility] Urobilinogen, UA 0.2 0.2 - 1.0 mg/dL [facility] RBC, UA 26 /HPF [facility] WBC, UA 80 /HPF [facility] Bacteria, UA Rare [facility] Squam Epithel, UA 1 /HPF [facility] Amorphous Crystals Rare [facility] Specimen Source Urine, Clean Catch [facility] Specimen Urine - Urine, Clean Catch Performing Organization Address City/State/Zipcode Phone Number [facility] [address] [place] [address] [phone] CENTER after 08/23/2017 Insurance Payer Benefit Plan / Subscriber ID Type Phone Address Group [employer]UE [employer]OSS/[employer]UE [employer] ADV HMO xxxxxxxxxxxx [phone] [address] [place] [address] Advance Directives For more information, please contact:[address] [phone] Code Status Date Activated Date Inactivated Comments Full Code 11/28/2017 7:22 AM 12/02/2017 1:21 PM This code status was determined by: Patient Full Code 06/17/2017 11:41 PM 06/26/2017 9:44 PM This code status was determined by: Patient Full Code 06/14/2017 5:50 AM 06/15/2017 2:38 PM This code status was determined by: Patient Full Code 03/02/2017 11:26 AM 03/10/2017 9:37 PM This code status was determined by: Patient Full Code 01/23/2017 8:55 PM 01/25/2017 6:58 PM This code status was determined by: Patient
--- OUTSIDE RECORDS SUMMARY | 2018-08-24 22:01 | XMS REPORT ---
:1960 [facility] [address] Narayan [address] [place] [address] Care Team Providers Name Role Phone DARIO SINGHRT Unavailable Unavailable JIM VILLATORO Unavailable Unavailable JAG ESCALERA Unavailable Unavailable JESSICA IVORY Unavailable Unavailable SARAH CLAIRE Unavailable Unavailable AARTI DACOSTA Unavailable Unavailable Problems This patient has no known problems. Allergies, Adverse Reactions, Alerts This patient has no known allergies or adverse reactions. Medications This patient has no known medications. 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 Signing Pathologist Direct Phone Line: [phone] signed by Tony Vallejo MD on 12/07/2017 at 8:52 AMTwo of the lymph nodes show tubular structures lined by pseudo-stratified epithelium and no stroma. No atypia [...] who concurs with a diagnosis of endosalpingiosis. 08863, 97785, [id number], 01472Pvpiffu of left kidney, chronic infection Left kidney Received fresh labeled "kidney, left" is a 1,076 gm, 22.0 x 14.0 x 7.0 cm, left simple nephrectomy specimen with attached surrounding perinephric adipose tissue. The kidney itself measures 15.0 x 7.0 x 4.0 cm. A ureter is not identified. The adrenal gland is not present.There is a 7.0 cm in length x 0.2 cm in diameter white plastic stent, which appears to be inserted into the cortical aspect of the specimen.There is a 3.5 x 2.0 cm, ill-defined, dark-red to mary-white, dense area of fibrous adhesions at the hilum, which may possibly be the ureteropelvic junction. The kidney is bivalved to reveal a dilated pelvis and caliceal system containing yellow-green mucoid material. The surrounding renal parenchyma is pale-camacho and atrophic. No discrete masses are identified.Four pink-camacho to yellow perihilar lymph nodes are identified ranging in size from 1.0 cm to 4.5 cm in greatest dimension. Section code: A1, parallel vascular and possible ureteral resection margins; A2, area of dense insertion; A3-A8, desk representative sections of area of dense adhesions at possible UPJ; A9-A16, desk representative sections of pelvis and caliceal system; A17-A18, desk representative sections of renal parenchyma; A19-A21, one bisected lymph node in each cut surface; A22-A28, one serially sectioned lymph node. DB/ewPerformed.The following special studies were performed on this case and the interpretation is incorporated in the diagnostic report above:BLOCK A20- CK7, CK20, PAX8, ER, KI-67BLOCK A21- CK7, CK20, PAX8, KI-67The immunohistochemistry test was developed and its performance characteristics determined by [facility], Pathology Laboratory. It has not been [...] to perform high complexity clinical laboratory testing. BLOOD CULTURE 2017-12-03 06:00:00 Test Item Value Reference Range Comments CULTURE (BEAKER) (test ihoe=0063) No growth in 5 days POCT-GLUCOSE [id number] 07:56:00 Test Item Value Reference Range Comments POC-GLUCOSE METER (BEAKER) 287 mg/dL 70-110 TESTED AT [facility] [address] [facility] (test geob=5886) [facility] [address] BASIC METABOLIC [id number] 07:51:00 Test Item Value Reference Range Comments SODIUM (BEAKER) (test 138 meq/L 136-145 kcev=953) POTASSIUM (BEAKER) (test 4.0 meq/L 3.5-5.1 csme=774) CHLORIDE (BEAKER) (test 105 meq/L 98-107 ufve=471) CO2 (BEAKER) (test 24 meq/L 22-29 jpyo=021) BLOOD UREA NITROGEN 9 mg/dL 7-21 (BEAKER) (test onxq=564) CREATININE (BEAKER) (test 1.01 mg/dL 0.57-1.25 viss=677) GLUCOSE RANDOM (BEAKER) 215 mg/dL 70-105 (test ejsb=882) CALCIUM (BEAKER) (test 9.0 mg/dL 8.4-10.2 dydi=433) EGFR (BEAKER) (test 56 mL/min/1.73 sq m ESTIMATED GFR IS NOT msxg=7298) ACCURATE CREATININE CLEARANCE IN PREDICTING GLOMERULAR FILTRATION RATE. ESTIMATED GFR IS NOT APPLICABLE FOR DIALYSIS PATIENTS. CBC W/PLT COUNT & AUTO [id number] 05:57:00 Test Item Value Reference Range Comments WHITE BLOOD CELL COUNT (BEAKER) (test oupt=510) 10.0 K/ L 3.5-10.5 RED BLOOD CELL COUNT (BEAKER) (test rnni=173) 3.72 M/ L 3.93-5.22 HEMOGLOBIN (BEAKER) (test yczk=883) 10.1 GM/DL 11.2-15.7 HEMATOCRIT (BEAKER) (test ozvw=280) 32.5 % 34.1-44.9 MEAN CORPUSCULAR VOLUME (BEAKER) (test lmzi=522) 87.4 fL 79.4-94.8 MEAN CORPUSCULAR HEMOGLOBIN (BEAKER) (test 27.2 pg 25.6-32.2 istm=796) MEAN CORPUSCULAR HEMOGLOBIN CONC (BEAKER) (test 31.1 GM/DL 32.2-35.5 gmtr=736) RED CELL DISTRIBUTION WIDTH (BEAKER) (test 13.7 % 11.7-14.4 nrum=793) PLATELET COUNT (BEAKER) (test zxgq=591) 290 K/CU MM 150-450 MEAN PLATELET VOLUME (BEAKER) (test qred=251) 8.7 fL 9.4-12.3 NUCLEATED RED BLOOD CELLS (BEAKER) (test 0 /100 WBC 0-0 mvqi=291) NEUTROPHILS RELATIVE PERCENT (BEAKER) (test 68 % gkjl=270) LYMPHOCYTES RELATIVE PERCENT (BEAKER) (test 16 % kfxr=936) MONOCYTES RELATIVE PERCENT (BEAKER) (test 11 % rufr=688) EOSINOPHILS RELATIVE PERCENT (BEAKER) (test 3 % ndtq=445) BASOPHILS RELATIVE PERCENT (BEAKER) (test 1 % xjdn=599) NEUTROPHILS ABSOLUTE COUNT (BEAKER) (test 6.82 K/ L 1.56-6.13 zbrt=206) LYMPHOCYTES ABSOLUTE COUNT (BEAKER) (test 1.56 K/ L 1.18-3.74 qtua=376) MONOCYTES ABSOLUTE COUNT (BEAKER) (test 1.13 K/ L 0.24-0.36 iuxy=042) EOSINOPHILS ABSOLUTE COUNT (BEAKER) (test 0.28 K/ L 0.04-0.36 vgdr=840) BASOPHILS ABSOLUTE COUNT (BEAKER) (test 0.05 K/ L 0.01-0.08 pkfd=082) IMMATURE GRANULOCYTES-RELATIVE PERCENT (BEAKER) 2 % 0-1 (test jesx=5186) POCT-GLUCOSE [id number] 21:03:00 Test Item Value Reference Range Comments POC-GLUCOSE METER (BEAKER) 166 mg/dL 70-110 TESTED AT [address] (test ucsh=5645) [facility] [address] POCT-GLUCOSE [id number] 18:19:00 Test Item Value Reference Range Comments POC-GLUCOSE METER (BEAKER) 199 mg/dL 70-110 TESTED AT [address] (test vxef=5319) [facility] [address] POCT-GLUCOSE [id number] 12:08:00 Test Item Value Reference Range Comments POC-GLUCOSE METER (BEAKER) 160 mg/dL 70-110 TESTED AT [facility] [address] [facility] (test afwy=8368) [facility] [address] POCT-GLUCOSE [id number] 09:10:00 Test Item Value Reference Range Comments POC-GLUCOSE METER (BEAKER) 170 mg/dL 70-110 TESTED AT [facility] [address] [facility] (test ggzc=3211) [facility] [address] BASIC METABOLIC [id number] 07:03:00 Test Item Value Reference Range Comments SODIUM (BEAKER) (test 135 meq/L 136-145 oopi=466) POTASSIUM (BEAKER) (test 4.0 meq/L 3.5-5.1 xdzw=954) CHLORIDE (BEAKER) (test 105 meq/L 98-107 ufbs=267) CO2 (BEAKER) (test 21 meq/L 22-29 ypvf=546) BLOOD UREA NITROGEN 11 mg/dL 7-21 (BEAKER) (test edqz=093) CREATININE (BEAKER) (test 0.83 mg/dL 0.57-1.25 lwia=232) GLUCOSE RANDOM (BEAKER) 139 mg/dL 70-105 (test kvsi=689) CALCIUM (BEAKER) (test 8.5 mg/dL 8.4-10.2 femq=971) EGFR (BEAKER) (test 71 mL/min/1.73 sq m ESTIMATED GFR IS NOT tvnc=5222) ACCURATE CREATININE CLEARANCE IN PREDICTING GLOMERULAR FILTRATION RATE. ESTIMATED GFR IS NOT APPLICABLE FOR DIALYSIS PATIENTS. CBC W/PLT COUNT & AUTO [id number] 06:26:00 Test Item Value Reference Range Comments WHITE BLOOD CELL COUNT (BEAKER) (test bnfy=570) 11.8 K/ L 3.5-10.5 RED BLOOD CELL COUNT (BEAKER) (test cnub=544) 3.52 M/ L 3.93-5.22 HEMOGLOBIN (BEAKER) (test mciy=684) 9.7 GM/DL 11.2-15.7 HEMATOCRIT (BEAKER) (test dxjz=886) 30.7 % 34.1-44.9 MEAN CORPUSCULAR VOLUME (BEAKER) (test nfjt=549) 87.2 fL 79.4-94.8 MEAN CORPUSCULAR HEMOGLOBIN (BEAKER) (test 27.6 pg 25.6-32.2 vfox=732) MEAN CORPUSCULAR HEMOGLOBIN CONC (BEAKER) (test 31.6 GM/DL 32.2-35.5 whkd=002) RED CELL DISTRIBUTION WIDTH (BEAKER) (test 13.7 % 11.7-14.4 wqpp=265) PLATELET COUNT (BEAKER) (test vdjk=641) 239 K/CU MM 150-450 MEAN PLATELET VOLUME (BEAKER) (test nhct=479) 8.6 fL 9.4-12.3 NUCLEATED RED BLOOD CELLS (BEAKER) (test 0 /100 WBC 0-0 rruk=520) NEUTROPHILS RELATIVE PERCENT (BEAKER) (test 75 % jzfi=905) LYMPHOCYTES RELATIVE PERCENT (BEAKER) (test 13 % ctfr=913) MONOCYTES RELATIVE PERCENT (BEAKER) (test 10 % lbyb=729) EOSINOPHILS RELATIVE PERCENT (BEAKER) (test 1 % yian=135) BASOPHILS RELATIVE PERCENT (BEAKER) (test 0 % xgva=702) NEUTROPHILS ABSOLUTE COUNT (BEAKER) (test 8.87 K/ L 1.56-6.13 zcsx=449) LYMPHOCYTES ABSOLUTE COUNT (BEAKER) (test 1.50 K/ L 1.18-3.74 rcjt=798) MONOCYTES ABSOLUTE COUNT (BEAKER) (test 1.12 K/ L 0.24-0.36 ilet=106) EOSINOPHILS ABSOLUTE COUNT (BEAKER) (test 0.16 K/ L 0.04-0.36 srjr=116) BASOPHILS ABSOLUTE COUNT (BEAKER) (test 0.03 K/ L 0.01-0.08 vqji=164) IMMATURE GRANULOCYTES-RELATIVE PERCENT (BEAKER) 1 % 0-1 (test fhun=5295) POCT-GLUCOSE [id number] 20:55:00 Test Item Value Reference Range Comments POC-GLUCOSE METER (BEAKER) 219 mg/dL 70-110 TESTED AT [facility] [address] [facility] (test jvfl=9902) [facility] [address] BASIC METABOLIC [id number] 13:42:00 Test Item Value Reference Range Comments SODIUM (BEAKER) (test 141 meq/L 136-145 vzbt=571) POTASSIUM (BEAKER) (test 4.5 meq/L 3.5-5.1 Specimen slightly nmen=499) hemolyzed CHLORIDE (BEAKER) (test 109 meq/L 98-107 czfs=132) CO2 (BEAKER) (test 22 meq/L 22-29 wyca=272) BLOOD UREA NITROGEN 9 mg/dL 7-21 (BEAKER) (test bvtn=575) CREATININE (BEAKER) (test 0.97 mg/dL 0.57-1.25 Specimen slightly ssxg=294) hemolyzed GLUCOSE RANDOM (BEAKER) 229 mg/dL 70-105 (test uoty=005) CALCIUM (BEAKER) (test 8.9 mg/dL 8.4-10.2 vaee=106) EGFR (BEAKER) (test 59 mL/min/1.73 sq m ESTIMATED GFR IS NOT cmqh=4713) ACCURATE CREATININE CLEARANCE IN PREDICTING GLOMERULAR FILTRATION RATE. ESTIMATED GFR IS NOT APPLICABLE FOR DIALYSIS PATIENTS. HEMOGLOBIN AND [id number] 13:15:00 Test Item Value Reference Range Comments HEMOGLOBIN (BEAKER) (test usjl=762) 10.8 GM/DL 11.2-15.7 HEMATOCRIT (BEAKER) (test dlda=193) 34.0 % 34.1-44.9 URINE [id number] 10:10:00 Test Item Value Reference Range Comments CULTURE (BEAKER) (test See comment 70-79,000 col/mL Beronica vfnr=4858) albicans CALCIUM, [id number] 10:01:00 Test Item Value Reference Range Comments CALCIUM IONIZED (BEAKER) (test gpte=557) 1.09 mmol/L 1.12-1.27 PH, BLOOD (BEAKER) (test aqih=2113) 7.38 BLOOD GAS, [id number] 10:01:00 Test Item Value Reference Range Comments PH ARTERIAL (BEAKER) (test mcrp=365) 7.38 7.35-7.45 PCO2 ARTERIAL (BEAKER) (test ffoo=854) 43 mmHg 35-45 PO2 ARTERIAL (BEAKER) (test xyre=689) 82 mmHg 80-90 O2 SATURATION ARTERIAL (BEAKER) (test nlwf=145) 95.8 % 96.0-97.0 HCO3 ARTERIAL (BEAKER) (test kbfk=106) 25 mmol/L 21-29 BASE EXCESS ARTERIAL (BEAKER) (test ygqm=758) -0.7 mmol/L -2.0-3.0 PATIENT TEMPERATURE (BEAKER) (test sqay=7201) 37.0 C FIO2 (BEAKER) (test sftn=4388) 100.0 % SODIUM NA-STAT [id number] 10:01:00 Test Item Value Reference Range Comments SODIUM (BEAKER) (test nyzn=754) 134 meq/L 135-148 GLUCOSE-STAT [id number] 10:01:00 Test Item Value Reference Range Comments GLUCOSE RANDOM (BEAKER) (test xtvp=579) 192 mg/dL 70-110 HGB/HCT (H&H) - STAT [id number] 10:01:00 Test Item Value Reference Range Comments HEMOGLOBIN (BEAKER) (test ypol=640) 11.7 g/dL 12.0-15.0 HEMATOCRIT (BEAKER) (test dsrb=078) 34.0 % 36.0-45.0 POTASSIUM-STAT [id number] 09:56:00 Test Item Value Reference Range Comments POTASSIUM (BEAKER) (test idab=252) 4.0 meq/L 3.6-5.5 LACTIC ACID, VENOUS, WHOLE [id number] 06:39:00 Test Item Value Reference Range Comments LACTATE BLOOD VENOUS (2) 0.7 mmol/L 0.5-2.2 Specimen slightly hemolyzed (BEAKER) (test vqsw=1982) Effective 12/16/2015: Units/Reference Range ChangeNew: 0.5-2.2 mmol/L Previous: 5 -20 mg/[id number] 06:36:00 Test Item Value Reference Range Comments PHOSPHORUS (BEAKER) (test xmrd=118) 3.7 mg/dL 2.3-4.7 [id number] 06:36:00 Test Item Value Reference Range Comments MAGNESIUM (BEAKER) (test dyvn=613) 1.6 mg/dL 1.6-2.6 BASIC METABOLIC [id number] 06:36:00 Test Item Value Reference Range Comments SODIUM (BEAKER) (test 135 meq/L 136-145 psbf=974) POTASSIUM (BEAKER) (test 4.0 meq/L 3.5-5.1 nlpy=624) CHLORIDE (BEAKER) (test 102 meq/L 98-107 xehg=303) CO2 (BEAKER) (test 22 meq/L 22-29 glnw=250) BLOOD UREA NITROGEN 9 mg/dL 7-21 (BEAKER) (test gkqa=073) CREATININE (BEAKER) (test 0.95 mg/dL 0.57-1.25 cvkd=654) GLUCOSE RANDOM (BEAKER) 181 mg/dL 70-105 (test hvwl=847) CALCIUM (BEAKER) (test 9.5 mg/dL 8.4-10.2 ikfg=082) EGFR (BEAKER) (test 61 mL/min/1.73 sq m ESTIMATED GFR IS NOT slld=2746) ACCURATE CREATININE CLEARANCE IN PREDICTING GLOMERULAR FILTRATION RATE. ESTIMATED GFR IS NOT APPLICABLE FOR DIALYSIS PATIENTS. POCT-GLUCOSE [id number] 21:05:00 Test Item Value Reference Range Comments POC-GLUCOSE METER (BEAKER) 215 mg/dL 70-110 TESTED AT [address] (test zprg=3276) [place] [address] POCT-GLUCOSE [id number] 17:48:00 Test Item Value Reference Range Comments POC-GLUCOSE METER (BEAKER) 150 mg/dL 70-110 TESTED AT [address] (test fhee=7885) [place] [address] POCT-GLUCOSE [id number] 12:00:00 Test Item Value Reference Range Comments POC-GLUCOSE METER (BEAKER) 204 mg/dL 70-110 TESTED AT [address] (test pyyu=3115) [place] [address] URINE [id number] 08:15:00 Test Item Value Reference Range Comments CULTURE (BEAKER) (test 40-49,000 col/mL skin mckenna lqar=4205) POCT-GLUCOSE [id number] 07:41:00 Test Item Value Reference Range Comments POC-GLUCOSE METER (BEAKER) 154 mg/dL 70-110 TESTED AT [address] (test sccq=6937) [place] [address] [id number] 04:29:00 Test Item Value Reference Range Comments PHOSPHORUS (BEAKER) (test tvkv=520) 3.2 mg/dL 2.3-4.7 [id number] 04:29:00 Test Item Value Reference Range Comments MAGNESIUM (BEAKER) (test rgvp=805) 1.6 mg/dL 1.6-2.6 BASIC METABOLIC [id number] 04:29:00 Test Item Value Reference Range Comments SODIUM (BEAKER) (test 132 meq/L 136-145 hnia=048) POTASSIUM (BEAKER) (test 4.3 meq/L 3.5-5.1 wnhd=640) CHLORIDE (BEAKER) (test 102 meq/L 98-107 lmon=267) CO2 (BEAKER) (test 23 meq/L 22-29 eetd=812) BLOOD UREA NITROGEN 14 mg/dL 7-21 (BEAKER) (test cnjg=257) CREATININE (BEAKER) (test 1.01 mg/dL 0.57-1.25 gxut=924) GLUCOSE RANDOM (BEAKER) 186 mg/dL 70-105 (test ubph=640) CALCIUM (BEAKER) (test 9.3 mg/dL 8.4-10.2 fcla=185) EGFR (BEAKER) (test 56 mL/min/1.73 sq m ESTIMATED GFR IS NOT dtii=2608) ACCURATE CREATININE CLEARANCE IN PREDICTING GLOMERULAR FILTRATION RATE. ESTIMATED GFR IS NOT APPLICABLE FOR DIALYSIS PATIENTS. LACTIC ACID, VENOUS, WHOLE [id number] 04:27:00 Test Item Value Reference Range Comments LACTATE BLOOD VENOUS (2) (BEAKER) (test 0.7 mmol/L 0.5-2.2 klgw=7981) Effective 12/16/2015: Units/Reference Range ChangeNew: 0.5-2.2 mmol/L Previous: 5 -20 mg/dLCBC W/PLT COUNT & AUTO [id number] 04:11:00 Test Item Value Reference Range Comments WHITE BLOOD CELL COUNT (BEAKER) (test ltij=908) 13.9 K/ L 3.5-10.5 RED BLOOD CELL COUNT (BEAKER) (test hvoj=589) 4.13 M/ L 3.93-5.22 HEMOGLOBIN (BEAKER) (test dmjo=644) 11.6 GM/DL 11.2-15.7 HEMATOCRIT (BEAKER) (test rlvc=883) 35.7 % 34.1-44.9 MEAN CORPUSCULAR VOLUME (BEAKER) (test gcww=736) 86.4 fL 79.4-94.8 MEAN CORPUSCULAR HEMOGLOBIN (BEAKER) (test 28.1 pg 25.6-32.2 uyyu=970) MEAN CORPUSCULAR HEMOGLOBIN CONC (BEAKER) (test 32.5 GM/DL 32.2-35.5 sklj=235) RED CELL DISTRIBUTION WIDTH (BEAKER) (test 13.8 % 11.7-14.4 unne=788) PLATELET COUNT (BEAKER) (test feih=575) 266 K/CU MM 150-450 MEAN PLATELET VOLUME (BEAKER) (test iard=610) 8.6 fL 9.4-12.3 NUCLEATED RED BLOOD CELLS (BEAKER) (test 0 /100 WBC 0-0 ncpr=024) NEUTROPHILS RELATIVE PERCENT (BEAKER) (test 77 % hhrr=884) LYMPHOCYTES RELATIVE PERCENT (BEAKER) (test 11 % lsew=550) MONOCYTES RELATIVE PERCENT (BEAKER) (test 10 % kayi=299) EOSINOPHILS RELATIVE PERCENT (BEAKER) (test 1 % xbek=179) BASOPHILS RELATIVE PERCENT (BEAKER) (test 0 % geyv=388) NEUTROPHILS ABSOLUTE COUNT (BEAKER) (test 10.67 K/ L 1.56-6.13 rmqw=814) LYMPHOCYTES ABSOLUTE COUNT (BEAKER) (test 1.55 K/ L 1.18-3.74 syyf=354) MONOCYTES ABSOLUTE COUNT (BEAKER) (test 1.31 K/ L 0.24-0.36 pltj=560) EOSINOPHILS ABSOLUTE COUNT (BEAKER) (test 0.15 K/ L 0.04-0.36 blul=240) BASOPHILS ABSOLUTE COUNT (BEAKER) (test 0.03 K/ L 0.01-0.08 ewkh=554) IMMATURE GRANULOCYTES-RELATIVE PERCENT (BEAKER) 1 % 0-1 (test nbhv=2445) POCT-GLUCOSE [id number] 22:31:00 Test Item Value Reference Range Comments POC-GLUCOSE METER (BEAKER) 206 mg/dL 70-110 TESTED AT [facility] [address] [facility] (test cdpm=6866) [facility] [address] POCT-GLUCOSE [id number] 17:31:00 Test Item Value Reference Range Comments POC-GLUCOSE METER (BEAKER) 207 mg/dL 70-110 TESTED AT [place] [id number] [facility] (test yusv=9129) [facility] [address] ANG, NEPHROSTOMY, PERC, EXTERNAL [id number] 14:49:00Reason for exam:-> Needs left nephrostomy tube. Please obtain left kidney urine culture upon insertion of nephrostomy tube.FINAL REPORT Percutaneous Nephrostomy: Pertinent clinical information: Urinary tract infectionComparison: No comparisonModality: Sonography and fluoroscopy, seven images were submitted for interpretation. Conscious Sedation: First said 1 mg and fentanyl 75 mcg intravenouslyDuring the procedure with conscious sedation, the patient was monitored continuously with pulse oximetry and electrocardiography by the attending physician and registered nurse. Patient/Physician face to face intraservice time: 30 minutes Anesthesia: Two percent Lidocaine injected subcutaneously at the insertion site.Approach: Left flank Labs sent: Culture and sensitivity as requested Antibiotics: The patient is currently on Levaquin and vancomycinFor maximum sterile barrier protection a mask, cap,sterile gloves , sterile drape, sterile gown, and a cutaneous antiseptic was utilized.Fluoro time in minutes: 2.2 minutes. Total dose 63.7 mG. Seven images Technique: After informed written consent wasobtained, the patient was prepped and draped in the usual sterile manner. Access was obtained usingsonographic guidance. A 21-gauge Chiba needle was advanced into the upper collecting system. Subsequently, a wire was advanced through the needle. The tract was dilated to 8 Hungarian. A small bore catheter was advanced into the upper collecting system. A nephrostogram demonstrated marked hydronephrosis. Approximately 400 cc of. Once urine was removed from the upper collecting system. A nurse was present and monitored blood pressure measurements, pulse oximetry and ECG tracings. The patient tolerated the procedure well. Impression:Successful, uncomplicated placement of a left percutaneous nephrostomy tube. Signed: Soledad Esquiveleppauly Verified Date/Time: 11/28/2017 14:49:28 Reading Location: [address] Body Reading Room 02:49 PMPOCT-GLUCOSE [id number] 11:01:00 Test Item Value Reference Range Comments POC-GLUCOSE METER (BEAKER) 195 mg/dL 70-110 TESTED AT [address] (test ypsk=9071) [facility] [address] POCT-LACTIC ACID, [id number] 04:41:00 Test Item Value Reference Range Comments POC-LACTIC ACID, VENOUS 1.2 mmol/L 0.9-1.7 TESTED AT [address] (BEAKER) (test ukdf=4637) [facility] [address] LEGIONELLA ANTIGEN, [id number] 04:06:00 Test Item Value Reference Range Comments L. PNEUMOPHILA SEROGP 1 Negative - see Negative for L. UR AG (BEAKER) (test comment pneumophila serogroup 1 byhn=2821) antigen, suggesting no recent or current infection with this serogroup. Legionellosis cannot be ruled out since other serogroups and species may cause disease. STREP PNEUMONIAE [id number] 04:04:00 Test Item Value Reference Range Comments STREP PNEUMONIAE ANTIGEN Presumptive negative for Presumptive negative for (BEAKER) (test pneumococcal pneumonia - pneumococcal pneumonia - krlg=9438) see comment see commen Presumptive negative for pneumococcal pneumonia, suggesting no current or recent pneumococcal infection. Infection due to S. pneumoniae cannot be ruled out since the antigen present in the sample may be below the detection limit of the test.PROTHROMBIN TIME/[id number] 02:58:00 Test Item Value Reference Range Comments PROTIME (BEAKER) (test jeif=556) 14.1 seconds 11.7-14.7 INR (BEAKER) (test iffd=117) 1.1 <=5.9 RECOMMENDED COUMADIN/WARFARIN INR THERAPY RANGESSTANDARD DOSE: 2.0 - 3.0 Includes: PROPHYLAXIS forvenous thrombosis, systemic embolization; TREATMENT for venous thrombosis and/or pulmonary embolus.HIGH RISK: Target INR is 2.5-3.5 for patients with mechanical heart valves.[id number] 02:56:00 Test Item Value Reference Range Comments PHOSPHORUS (BEAKER) (test arit=644) 3.2 mg/dL 2.3-4.7 [id number] 02:56:00 Test Item Value Reference Range Comments MAGNESIUM (BEAKER) (test wegg=785) 1.9 mg/dL 1.6-2.6 HEPATIC FUNCTION [id number] 02:56:00 Test Item Value Reference Range Comments TOTAL PROTEIN (BEAKER) (test wmhf=307) 7.7 gm/dL 6.0-8.3 ALBUMIN (BEAKER) (test hyfc=5470) 3.9 g/dL 3.5-5.0 BILIRUBIN TOTAL (BEAKER) (test vxxb=078) 0.3 mg/dL 0.2-1.2 BILIRUBIN DIRECT (BEAKER) (test bbaw=263) 0.2 mg/dL 0.1-0.5 ALKALINE PHOSPHATASE (BEAKER) (test zcgp=427) 113 U/L 40-150 AST (SGOT) (BEAKER) (test qsfr=359) 10 U/L 5-34 ALT (SGPT) (BEAKER) (test cpmo=250) 17 U/L 6-55 BASIC METABOLIC [id number] 02:30:00 Test Item Value Reference Range Comments SODIUM (BEAKER) (test 133 meq/L 136-145 jphn=885) POTASSIUM (BEAKER) (test 4.5 meq/L 3.5-5.1 oztz=038) CHLORIDE (BEAKER) (test 97 meq/L 98-107 vdhw=487) CO2 (BEAKER) (test 25 meq/L 22-29 zzpj=459) BLOOD UREA NITROGEN 18 mg/dL 7-21 (BEAKER) (test antl=510) CREATININE (BEAKER) (test 1.32 mg/dL 0.57-1.25 ojsy=503) GLUCOSE RANDOM (BEAKER) 187 mg/dL 70-105 (test yvan=656) CALCIUM (BEAKER) (test 10.1 mg/dL 8.4-10.2 wmyl=089) EGFR (BEAKER) (test 41 mL/min/1.73 sq m ESTIMATED GFR IS NOT rgfx=9859) ACCURATE CREATININE CLEARANCE IN PREDICTING GLOMERULAR FILTRATION RATE. ESTIMATED GFR IS NOT APPLICABLE FOR DIALYSIS PATIENTS. LACTIC ACID, VENOUS, WHOLE [id number] 02:26:00 Test Item Value Reference Range Comments LACTATE BLOOD VENOUS (2) (BEAKER) (test 1.3 mmol/L 0.5-2.2 rdbe=2770) Effective 12/16/2015: Units/Reference Range ChangeNew: 0.5-2.2 mmol/L Previous: 5 -20 mg/dLCBC W/PLT COUNT & AUTO [id number] 02:17:00 Test Item Value Reference Range Comments WHITE BLOOD CELL COUNT (BEAKER) (test vrmr=473) 14.2 K/ L 3.5-10.5 RED BLOOD CELL COUNT (BEAKER) (test mvxs=849) 4.61 M/ L 3.93-5.22 HEMOGLOBIN (BEAKER) (test sekk=544) 12.9 GM/DL 11.2-15.7 HEMATOCRIT (BEAKER) (test fsfc=330) 39.5 % 34.1-44.9 MEAN CORPUSCULAR VOLUME (BEAKER) (test ptdn=588) 85.7 fL 79.4-94.8 MEAN CORPUSCULAR HEMOGLOBIN (BEAKER) (test 28.0 pg 25.6-32.2 bvdt=562) MEAN CORPUSCULAR HEMOGLOBIN CONC (BEAKER) (test 32.7 GM/DL 32.2-35.5 kjls=531) RED CELL DISTRIBUTION WIDTH (BEAKER) (test 13.7 % 11.7-14.4 zgfg=452) PLATELET COUNT (BEAKER) (test gely=695) 342 K/CU MM 150-450 MEAN PLATELET VOLUME (BEAKER) (test ozwq=253) 8.5 fL 9.4-12.3 NUCLEATED RED BLOOD CELLS (BEAKER) (test 0 /100 WBC 0-0 sksw=461) NEUTROPHILS RELATIVE PERCENT (BEAKER) (test 62 % zglu=389) LYMPHOCYTES RELATIVE PERCENT (BEAKER) (test 25 % rzqz=262) MONOCYTES RELATIVE PERCENT (BEAKER) (test 9 % yciw=411) EOSINOPHILS RELATIVE PERCENT (BEAKER) (test 2 % otnm=570) BASOPHILS RELATIVE PERCENT (BEAKER) (test 1 % fjbn=853) NEUTROPHILS ABSOLUTE COUNT (BEAKER) (test 8.79 K/ L 1.56-6.13 qgrn=045) LYMPHOCYTES ABSOLUTE COUNT (BEAKER) (test 3.54 K/ L 1.18-3.74 plwd=130) MONOCYTES ABSOLUTE COUNT (BEAKER) (test 1.31 K/ L 0.24-0.36 siwl=684) EOSINOPHILS ABSOLUTE COUNT (BEAKER) (test 0.25 K/ L 0.04-0.36 dkqp=237) BASOPHILS ABSOLUTE COUNT (BEAKER) (test 0.08 K/ L 0.01-0.08 uobl=841) IMMATURE GRANULOCYTES-RELATIVE PERCENT (BEAKER) 2 % 0-1 (test xkyl=4305) POCT-LACTIC ACID, [id number] 02:01:00 Test Item Value Reference Range Comments POC-LACTIC ACID, VENOUS 2.9 mmol/L 0.9-1.7 TESTED AT [place] [address] [address]OB[place] (BEAKER) (test opec=8172) [facility] [address] [address], [id number] 00:55:00Addendum BeginsREPORT STATUS:A Addendum: Benign as well as neoplastic processes would be included in differential diagnosis for the left UPJ level obstruction. Results including the possibility of an infected obstructed left renal collecting system discussed with Dr. Singh. Signed: Kimberlyn Arellano MDReport Verified Date/Time: 11/28/2017 00:55:04 Reading Location: [address] Reading RoomAddendum EndsFINAL REPORT EXAMINATION: CT SCAN OF THE ABDOMEN [...] normal in caliber. No evidence of an obstructingureteral calculus. Numerous lymph nodes are noted in the retroperitoneum, several enlarged includingnear the left renal vein and along the left side of the abdominal aorta. The stomach is decompressed. The loops of small bowel are normal in caliber. The appendix is unremarkable. A moderate to large volume of inspissated stool is noted throughout the colon suggesting a degree of dysmotility/constipation. Colonic diverticulosis is noted most conspicuous involving the descending and sigmoid segments.There is subtle infiltration of the soft tissues along the descending segment of the colon. Althoughuncomplicated diverticulitis would be a consideration , the soft tissue infiltration may also be related to the fat stranding-edema associated with the adjacent left kidney. No evidence of pneumatosisor pneumoperitoneum. The abdominal aorta is normal in caliber. Scattered calcific atherosclerotic plaques are noted involving the aorta. Further characterization the vascular structures is limited by the absence of contrast. The uterus is absent. No evidence of an adnexal mass. A a small calcificationis again associated with the ventral wall of [...] prominent spleen, 13 cm. Signed: Kimberlyn Arellano MDReport Verified Date/Time:11/28/2017 00:48:48 Reading Location: [address] Reading Room URINALYSIS W/ [id number] 00:09:00 Test Item Value Reference Range Comments COLOR (BEAKER) (test zqku=714) Yellow CLARITY (BEAKER) (test tddg=400) Hazy SPECIFIC GRAVITY UA (BEAKER) (test 1.011 1.001-1.035 etis=441) PH UA (BEAKER) (test jmfm=221) 6.0 5.0-8.0 PROTEIN UA (BEAKER) (test exug=684) 10 mg/dL Negative GLUCOSE UA (BEAKER) (test vmpa=703) Negative Negative KETONES UA (BEAKER) (test shhj=096) Negative Negative BILIRUBIN UA (BEAKER) (test ibrb=738) Negative Negative BLOOD UA (BEAKER) (test gnfe=744) Small Negative NITRITE UA (BEAKER) (test yopy=070) Negative Negative LEUKOCYTE ESTERASE UA (BEAKER) (test Large Negative mxcu=012) UROBILINOGEN UA (BEAKER) (test sfuw=500) 0.2 mg/dL 0.2-1.0 RBC UA (BEAKER) (test nrof=358) 26 /HPF WBC UA (BEAKER) (test owal=614) 80 /HPF BACTERIA (BEAKER) (test here=329) Rare SQUAMOUS EPITHELIAL (BEAKER) (test 1 /HPF itqg=004) AMORPHOUS CRYSTALS (BEAKER) (test Rare scvp=4874) SOURCE(BEAKER) (test mxse=2557) Urine, Clean Catch BLOOD [id number] 17:00:00 Test Item Value Reference Range Comments CULTURE (BEAKER) (test qmvz=0391) No growth in 5 days BLOOD [id number] 15:30:00 Test Item Value Reference Range Comments CULTURE (BEAKER) From Aerobic Bottle Only (test wrkp=8296) Coagulase negative Staphylococcus GRAM STAIN RESULT From aerobic bottle (BEAKER) (test only: gram positive otoh=1609) cocci in clusters Coagulase Negative Staphylococcus Species [...] required. This sample was tested at the [facility] Clinical Microbiology Laboratory using the [employer] FilmArray Blood Culture ID Panel.This test is FDA cleared for in vitro diagnostic use and has been verified and approved by [facility]. Reference Range: Not DetectedBLOOD [id number] 23:00:00 Test Item Value Reference Range Comments CULTURE (BEAKER) (test kysr=9479) No growth in 5 days MISCELLANEOUS LAB [id number] 14:42:00 Test Item Value Reference Range Comments SCAN RESULT (test eyik=[id number]) Result comments: Coagulase Negative Staphylococcus Species (CoNS) [...] required. This sample was tested at the [facility] Clinical Microbiology Laboratory using the [employer] FilmArray Blood Culture ID Panel. This test is FDA cleared for in vitro diagnostic use and has been verified and approved by the [facility] Clinical Microbiology laboratory for clinical use. Reference Range: Not DetectedPOCT-GLUCOSE [id number] 13:10:00 Test Item Value Reference Range Comments POC-GLUCOSE METER (BEAKER) 196 mg/dL 70-110 TESTED AT [address] (test kvuo=6011) [place] [address] URINE [id number] 11:19:00 Test Item Value Reference Range Comments CULTURE (BEAKER) (test >100,000 col/mL Beronica albicans ynmk=1136) <10,000 col/mL skin floraPOCT-GLUCOSE [id number] 07:50:00 Test Item Value Reference Range Comments POC-GLUCOSE METER (BEAKER) 190 mg/dL 70-110 TESTED AT [address] (test yqjp=5201) [place] [address] [id number] 06:18:00 Test Item Value Reference Range Comments PHOSPHORUS (BEAKER) (test ztas=631) 3.3 mg/dL 2.3-4.7 [id number] 06:18:00 Test Item Value Reference Range Comments MAGNESIUM (BEAKER) (test cckd=698) 1.4 mg/dL 1.6-2.6 BASIC METABOLIC [id number] 06:18:00 Test Item Value Reference Range Comments SODIUM (BEAKER) (test 138 meq/L 136-145 qnxz=933) POTASSIUM (BEAKER) (test 3.6 meq/L 3.5-5.1 zocd=689) CHLORIDE (BEAKER) (test 105 meq/L 98-107 tgqm=685) CO2 (BEAKER) (test 23 meq/L 22-29 hzhf=712) BLOOD UREA NITROGEN 17 mg/dL 7-21 (BEAKER) (test pcou=803) CREATININE (BEAKER) (test 1.55 mg/dL 0.57-1.25 lnvp=904) GLUCOSE RANDOM (BEAKER) 158 mg/dL 70-105 (test bmnm=369) CALCIUM (BEAKER) (test 8.5 mg/dL 8.4-10.2 xqed=056) EGFR (BEAKER) (test 35 mL/min/1.73 sq m ESTIMATED GFR IS NOT agcs=0502) ACCURATE CREATININE CLEARANCE IN PREDICTING GLOMERULAR FILTRATION RATE. ESTIMATED GFR IS NOT APPLICABLE FOR DIALYSIS PATIENTS. CBC W/PLT COUNT & AUTO [id number] 06:01:00 Test Item Value Reference Range Comments WHITE BLOOD CELL COUNT (BEAKER) (test zqta=575) 12.9 K/ L 3.5-10.5 RED BLOOD CELL COUNT (BEAKER) (test oxrs=946) 3.78 M/ L 3.93-5.22 HEMOGLOBIN (BEAKER) (test vnsr=914) 10.6 GM/DL 11.2-15.7 HEMATOCRIT (BEAKER) (test uegc=848) 32.7 % 34.1-44.9 MEAN CORPUSCULAR VOLUME (BEAKER) (test mxwe=739) 86.5 fL 79.4-94.8 MEAN CORPUSCULAR HEMOGLOBIN (BEAKER) (test 28.0 pg 25.6-32.2 czwk=190) MEAN CORPUSCULAR HEMOGLOBIN CONC (BEAKER) (test 32.4 GM/DL 32.2-35.5 xhxl=523) RED CELL DISTRIBUTION WIDTH (BEAKER) (test 14.8 % 11.7-14.4 fcbx=710) PLATELET COUNT (BEAKER) (test gxjl=158) 348 K/CU MM 150-450 MEAN PLATELET VOLUME (BEAKER) (test hbqv=529) 9.1 fL 9.4-12.3 NUCLEATED RED BLOOD CELLS (BEAKER) (test 0 /100 WBC 0-0 cxpz=981) NEUTROPHILS RELATIVE PERCENT (BEAKER) (test 57 % knpw=569) LYMPHOCYTES RELATIVE PERCENT (BEAKER) (test 19 % omkm=180) MONOCYTES RELATIVE PERCENT (BEAKER) (test 13 % gabe=273) EOSINOPHILS RELATIVE PERCENT (BEAKER) (test 4 % ymzr=402) BASOPHILS RELATIVE PERCENT (BEAKER) (test 1 % tcbb=012) NEUTROPHILS ABSOLUTE COUNT (BEAKER) (test 7.34 K/ L 1.56-6.13 ogsz=251) LYMPHOCYTES ABSOLUTE COUNT (BEAKER) (test 2.48 K/ L 1.18-3.74 kkhv=303) MONOCYTES ABSOLUTE COUNT (BEAKER) (test 1.68 K/ L 0.24-0.36 duqq=721) EOSINOPHILS ABSOLUTE COUNT (BEAKER) (test 0.56 K/ L 0.04-0.36 irss=927) BASOPHILS ABSOLUTE COUNT (BEAKER) (test 0.08 K/ L 0.01-0.08 qrtk=284) IMMATURE GRANULOCYTES-RELATIVE PERCENT (BEAKER) 6 % 0-1 (test omwh=0530) POCT-GLUCOSE [id number] 21:08:00 Test Item Value Reference Range Comments POC-GLUCOSE METER (BEAKER) 157 mg/dL 70-110 TESTED AT [address] (test fdux=4589) [place] [address] POCT-GLUCOSE [id number] 11:59:00 Test Item Value Reference Range Comments POC-GLUCOSE METER (BEAKER) 151 mg/dL 70-110 TESTED AT [address] (test jjuc=3356) [place] [id number] CBC W/PLT COUNT & AUTO [id number] 11:31:00 Test Item Value Reference Range Comments WHITE BLOOD CELL COUNT (BEAKER) (test usgp=828) 11.6 K/ L 3.5-10.5 RED BLOOD CELL COUNT (BEAKER) (test xupd=800) 3.72 M/ L 3.93-5.22 HEMOGLOBIN (BEAKER) (test laxi=776) 10.3 GM/DL 11.2-15.7 HEMATOCRIT (BEAKER) (test zywm=090) 32.2 % 34.1-44.9 MEAN CORPUSCULAR VOLUME (BEAKER) (test zwst=859) 86.6 fL 79.4-94.8 MEAN CORPUSCULAR HEMOGLOBIN (BEAKER) (test 27.7 pg 25.6-32.2 pkzs=588) MEAN CORPUSCULAR HEMOGLOBIN CONC (BEAKER) (test 32.0 GM/DL 32.2-35.5 pqaa=144) RED CELL DISTRIBUTION WIDTH (BEAKER) (test 14.7 % 11.7-14.4 nual=810) PLATELET COUNT (BEAKER) (test suyx=904) 281 K/CU MM 150-450 MEAN PLATELET VOLUME (BEAKER) (test qjmk=548) 9.1 fL 9.4-12.3 NUCLEATED RED BLOOD CELLS (BEAKER) (test 0 /100 WBC 0-0 scbo=771) IMMATURE GRANULOCYTES-RELATIVE PERCENT (BEAKER) 5 % 0-1 (test pdyr=6476) (MANUAL DIFFERENTIAL)2017-06-25 11:31:00 Test Item Value Reference Range Comments NEUTROPHILS - REL (DIFF) (BEAKER) (test hkwa=1729) 60 % LYMPHOCYTES - REL (DIFF) (BEAKER) (test umni=5848) 21 % MONOCYTES - REL (DIFF) (BEAKER) (test clrd=6258) 13 % EOSINOPHILS - REL (DIFF) (BEAKER) (test mhec=4354) 1 % BASOPHILS - REL (DIFF) (BEAKER) (test qgxj=7887) 0 % METAMYELOCYTES-REL (DIFF) (BEAKER) (test kfhs=422) 2 % 0-0 MYELOCYTES-REL (DIFF) (BEAKER) (test ilpo=3649) 3 % 0-0 NEUTROPHILS - ABS (DIFF) (BEAKER) (test dnwd=2319) 6.96 K/ L 1.80-8.00 LYMPHOCYTES - ABS (DIFF) (BEAKER) (test wnue=2480) 2.44 K/ L 1.48-4.50 MONOCYTES - ABS (DIFF) (BEAKER) (test tmur=4012) 1.51 K/ L 0.00-1.30 EOSINOPHILS - ABS (DIFF) (BEAKER) (test oasw=3935) 0.12 K/ L 0.00-0.50 BASOPHILS - ABS (DIFF) (BEAKER) (test qzrg=2563) 0.00 K/ L 0.00-0.20 METAMYELOCTYES - ABS (DIFF) (BEAKER) (test 0.23 K/ L 0.00-0.00 sfxg=246) MYELOCYTES-ABS (DIFF) (BEAKER) (test dals=5045) 0.35 K/ L 0.00-0.00 TOTAL COUNTED (BEAKER) (test llcq=6231) 100 WBC MORPHOLOGY (BEAKER) (test gqir=666) Normal PLT MORPHOLOGY (BEAKER) (test azdw=643) Normal RBC MORPHOLOGY (BEAKER) (test dkzr=199) Normal POCT-GLUCOSE [id number] 07:43:00 Test Item Value Reference Range Comments POC-GLUCOSE METER (BEAKER) 151 mg/dL 70-110 TESTED AT [facility] [address] [facility] (test zrtq=8386) [facility] [address] BASIC METABOLIC [id number] 06:24:00 Test Item Value Reference Range Comments SODIUM (BEAKER) (test 138 meq/L 136-145 fuyt=709) POTASSIUM (BEAKER) (test 3.8 meq/L 3.5-5.1 lpqh=706) CHLORIDE (BEAKER) (test 106 meq/L 98-107 oqdm=719) CO2 (BEAKER) (test 21 meq/L 22-29 llfi=365) BLOOD UREA NITROGEN 17 mg/dL 7-21 (BEAKER) (test rrcc=541) CREATININE (BEAKER) (test 1.82 mg/dL 0.57-1.25 ogbi=422) GLUCOSE RANDOM (BEAKER) 137 mg/dL 70-105 (test xrdg=105) CALCIUM (BEAKER) (test 8.6 mg/dL 8.4-10.2 uuoy=393) EGFR (BEAKER) (test 29 mL/min/1.73 sq m ESTIMATED GFR IS NOT bzdi=2921) ACCURATE CREATININE CLEARANCE IN PREDICTING GLOMERULAR FILTRATION RATE. ESTIMATED GFR IS NOT APPLICABLE FOR DIALYSIS PATIENTS. [id number] 06:23:00 Test Item Value Reference Range Comments PHOSPHORUS (BEAKER) (test asqw=204) 3.5 mg/dL 2.3-4.7 [id number] 06:23:00 Test Item Value Reference Range Comments MAGNESIUM (BEAKER) (test lwzm=389) 1.7 mg/dL 1.6-2.6 POCT-GLUCOSE [id number] 21:50:00 Test Item Value Reference Range Comments POC-GLUCOSE METER (BEAKER) 205 mg/dL 70-110 TESTED AT [address] (test ywao=5389) [place] [address] POCT-GLUCOSE [id number] 17:18:00 Test Item Value Reference Range Comments POC-GLUCOSE METER (BEAKER) 161 mg/dL 70-110 TESTED AT [address] (test nmlf=3463) [place] [address] URINALYSIS W/ [id number] 13:16:00 Test Item Value Reference Range Comments COLOR (BEAKER) (test xdte=453) Yellow CLARITY (BEAKER) (test sygr=926) Hazy SPECIFIC GRAVITY UA (BEAKER) (test uvan=439) 1.007 1.001-1.035 PH UA (BEAKER) (test mijq=476) 6.5 5.0-8.0 PROTEIN UA (BEAKER) (test tygb=597) 30 mg/dL Negative GLUCOSE UA (BEAKER) (test zitb=681) Negative Negative KETONES UA (BEAKER) (test xsup=805) Negative Negative BILIRUBIN UA (BEAKER) (test uyfa=574) Negative Negative BLOOD UA (BEAKER) (test yczx=161) Large Negative NITRITE UA (BEAKER) (test tbiw=452) Negative Negative LEUKOCYTE ESTERASE UA (BEAKER) (test tlgj=335) Large Negative UROBILINOGEN UA (BEAKER) (test acix=001) 0.2 mg/dL 0.2-1.0 RBC UA (BEAKER) (test jrrd=913) 26 /HPF WBC UA (BEAKER) (test ohcg=220) > /HPF SQUAMOUS EPITHELIAL (BEAKER) (test iykv=655) 17 /HPF SOURCE(BEAKER) (test jxhs=6141) Urine, Voided POCT-GLUCOSE [id number] 08:34:00 Test Item Value Reference Range Comments POC-GLUCOSE METER (BEAKER) 154 mg/dL 70-110 TESTED AT [address] (test qwqd=0983) [place] [address] BASIC METABOLIC [id number] 07:34:00 Test Item Value Reference Range Comments SODIUM (BEAKER) (test 138 meq/L 136-145 ynso=118) POTASSIUM (BEAKER) (test 4.0 meq/L 3.5-5.1 nzdx=224) CHLORIDE (BEAKER) (test 105 meq/L 98-107 veue=307) CO2 (BEAKER) (test 24 meq/L 22-29 rany=082) BLOOD UREA NITROGEN 18 mg/dL 7-21 (BEAKER) (test cgjw=485) CREATININE (BEAKER) (test 2.27 mg/dL 0.57-1.25 gaub=490) GLUCOSE RANDOM (BEAKER) 125 mg/dL 70-105 (test zopa=523) CALCIUM (BEAKER) (test 9.1 mg/dL 8.4-10.2 gshd=358) EGFR (BEAKER) (test 22 mL/min/1.73 sq m ESTIMATED GFR IS NOT nqbl=7547) ACCURATE CREATININE CLEARANCE IN PREDICTING GLOMERULAR FILTRATION RATE. ESTIMATED GFR IS NOT APPLICABLE FOR DIALYSIS PATIENTS. [id number] 07:32:00 Test Item Value Reference Range Comments PHOSPHORUS (BEAKER) (test bzrv=510) 3.1 mg/dL 2.3-4.7 [id number] 07:32:00 Test Item Value Reference Range Comments MAGNESIUM (BEAKER) (test yazv=164) 1.6 mg/dL 1.6-2.6 CBC W/PLT COUNT & AUTO [id number] 05:48:00 Test Item Value Reference Range Comments WHITE BLOOD CELL COUNT (BEAKER) (test uvbg=326) 13.5 K/ L 3.5-10.5 RED BLOOD CELL COUNT (BEAKER) (test sfha=563) 3.79 M/ L 3.93-5.22 HEMOGLOBIN (BEAKER) (test ckex=914) 10.6 GM/DL 11.2-15.7 HEMATOCRIT (BEAKER) (test hzcw=006) 33.0 % 34.1-44.9 MEAN CORPUSCULAR VOLUME (BEAKER) (test ztdh=007) 87.1 fL 79.4-94.8 MEAN CORPUSCULAR HEMOGLOBIN (BEAKER) (test 28.0 pg 25.6-32.2 pbdl=353) MEAN CORPUSCULAR HEMOGLOBIN CONC (BEAKER) (test 32.1 GM/DL 32.2-35.5 qozj=587) RED CELL DISTRIBUTION WIDTH (BEAKER) (test 14.7 % 11.7-14.4 nvar=656) PLATELET COUNT (BEAKER) (test gegu=093) 268 K/CU MM 150-450 MEAN PLATELET VOLUME (BEAKER) (test cgfg=273) 9.0 fL 9.4-12.3 NUCLEATED RED BLOOD CELLS (BEAKER) (test 0 /100 WBC 0-0 jxbl=995) NEUTROPHILS RELATIVE PERCENT (BEAKER) (test 77 % rywk=288) LYMPHOCYTES RELATIVE PERCENT (BEAKER) (test 9 % slpi=422) MONOCYTES RELATIVE PERCENT (BEAKER) (test 10 % wzgz=582) EOSINOPHILS RELATIVE PERCENT (BEAKER) (test 2 % edvm=494) BASOPHILS RELATIVE PERCENT (BEAKER) (test 0 % ycej=157) NEUTROPHILS ABSOLUTE COUNT (BEAKER) (test 10.36 K/ L 1.56-6.13 rgff=243) LYMPHOCYTES ABSOLUTE COUNT (BEAKER) (test 1.25 K/ L 1.18-3.74 huak=005) MONOCYTES ABSOLUTE COUNT (BEAKER) (test 1.36 K/ L 0.24-0.36 fhxy=476) EOSINOPHILS ABSOLUTE COUNT (BEAKER) (test 0.25 K/ L 0.04-0.36 szqm=826) BASOPHILS ABSOLUTE COUNT (BEAKER) (test 0.05 K/ L 0.01-0.08 plkl=864) IMMATURE GRANULOCYTES-RELATIVE PERCENT (BEAKER) 2 % 0-1 (test vcuk=4241) POCT-GLUCOSE [id number] 22:24:00 Test Item Value Reference Range Comments POC-GLUCOSE METER (BEAKER) 119 mg/dL 70-110 TESTED AT [address] (test mqlw=1922) [place] [address] POCT-GLUCOSE [id number] 17:09:00 Test Item Value Reference Range Comments POC-GLUCOSE METER (BEAKER) 110 mg/dL 70-110 TESTED AT [address] (test phtm=6085) [place] [address] BLOOD [id number] 17:00:00 Test Item Value Reference Range Comments CULTURE (BEAKER) (test yjys=9691) No growth in 5 days BLOOD [id number] 17:00:00 Test Item Value Reference Range Comments CULTURE (BEAKER) (test wovi=3009) No growth in 5 days POCT-GLUCOSE [id number] 11:34:00 Test Item Value Reference Range Comments POC-GLUCOSE METER (BEAKER) 202 mg/dL 70-110 TESTED AT [facility] [address] [facility] (test uqxg=5545) [place] [address] POCT-GLUCOSE [id number] 07:55:00 Test Item Value Reference Range Comments POC-GLUCOSE METER (BEAKER) 147 mg/dL 70-110 TESTED AT [address] (test jyfe=2309) [place] [id number] BASIC METABOLIC [id number] 05:37:00 Test Item Value Reference Range Comments SODIUM (BEAKER) (test 136 meq/L 136-145 gxid=816) POTASSIUM (BEAKER) (test 3.7 meq/L 3.5-5.1 ejas=390) CHLORIDE (BEAKER) (test 105 meq/L 98-107 avoq=319) CO2 (BEAKER) (test 21 meq/L 22-29 svhj=459) BLOOD UREA NITROGEN 18 mg/dL 7-21 (BEAKER) (test esuu=331) CREATININE (BEAKER) (test 2.23 mg/dL 0.57-1.25 wvgm=630) GLUCOSE RANDOM (BEAKER) 133 mg/dL 70-105 (test byth=563) CALCIUM (BEAKER) (test 8.9 mg/dL 8.4-10.2 vshs=139) EGFR (BEAKER) (test 23 mL/min/1.73 sq m ESTIMATED GFR IS NOT tihc=3647) ACCURATE CREATININE CLEARANCE IN PREDICTING GLOMERULAR FILTRATION RATE. ESTIMATED GFR IS NOT APPLICABLE FOR DIALYSIS PATIENTS. [id number] 05:35:00 Test Item Value Reference Range Comments PHOSPHORUS (BEAKER) (test jtcy=296) 2.8 mg/dL 2.3-4.7 [id number] 05:35:00 Test Item Value Reference Range Comments MAGNESIUM (BEAKER) (test pqlb=494) 1.6 mg/dL 1.6-2.6 CBC W/PLT COUNT & AUTO [id number] 05:12:00 Test Item Value Reference Range Comments WHITE BLOOD CELL COUNT (BEAKER) (test pmlf=300) 14.0 K/ L 3.5-10.5 RED BLOOD CELL COUNT (BEAKER) (test ofze=091) 3.79 M/ L 3.93-5.22 HEMOGLOBIN (BEAKER) (test kqzl=143) 10.5 GM/DL 11.2-15.7 HEMATOCRIT (BEAKER) (test byuq=877) 32.4 % 34.1-44.9 MEAN CORPUSCULAR VOLUME (BEAKER) (test xqne=543) 85.5 fL 79.4-94.8 MEAN CORPUSCULAR HEMOGLOBIN (BEAKER) (test 27.7 pg 25.6-32.2 qqws=541) MEAN CORPUSCULAR HEMOGLOBIN CONC (BEAKER) (test 32.4 GM/DL 32.2-35.5 gakf=183) RED CELL DISTRIBUTION WIDTH (BEAKER) (test 14.7 % 11.7-14.4 rzvb=147) PLATELET COUNT (BEAKER) (test avxx=260) 240 K/CU MM 150-450 MEAN PLATELET VOLUME (BEAKER) (test sykr=313) 9.0 fL 9.4-12.3 NUCLEATED RED BLOOD CELLS (BEAKER) (test 0 /100 WBC 0-0 scdd=825) NEUTROPHILS RELATIVE PERCENT (BEAKER) (test 70 % hyqi=966) LYMPHOCYTES RELATIVE PERCENT (BEAKER) (test 12 % dgtg=772) MONOCYTES RELATIVE PERCENT (BEAKER) (test 12 % bumq=085) EOSINOPHILS RELATIVE PERCENT (BEAKER) (test 3 % zisw=145) BASOPHILS RELATIVE PERCENT (BEAKER) (test 0 % hapr=926) NEUTROPHILS ABSOLUTE COUNT (BEAKER) (test 9.78 K/ L 1.56-6.13 ahzo=835) LYMPHOCYTES ABSOLUTE COUNT (BEAKER) (test 1.72 K/ L 1.18-3.74 hrrl=918) MONOCYTES ABSOLUTE COUNT (BEAKER) (test 1.73 K/ L 0.24-0.36 xglo=120) EOSINOPHILS ABSOLUTE COUNT (BEAKER) (test 0.41 K/ L 0.04-0.36 cwkm=717) BASOPHILS ABSOLUTE COUNT (BEAKER) (test 0.06 K/ L 0.01-0.08 bwed=218) IMMATURE GRANULOCYTES-RELATIVE PERCENT (BEAKER) 2 % 0-1 (test siuw=1800) POCT-GLUCOSE [id number] 22:02:00 Test Item Value Reference Range Comments POC-GLUCOSE METER (BEAKER) 107 mg/dL 70-110 TESTED AT [address] (test xfnz=7170) [facility] [address] CT, [id number] 20:36:00FINAL REPORT CT of the abdomen and [...] Otherwise no significant change. Signed: Casey Bowers MDReport Verified Date/Time: 06/22/2017 20:36: 43 Reading Location: [facility] [id number] Consult Reading Room POCT-GLUCOSE [id number] 16:27:00 Test Item Value Reference Range Comments POC-GLUCOSE METER (BEAKER) 136 mg/dL 70-110 TESTED AT [address] (test ijti=6335) [facility] [address] POCT-GLUCOSE [id number] 12:07:00 Test Item Value Reference Range Comments POC-GLUCOSE METER (BEAKER) 150 mg/dL 70-110 TESTED AT [address] (test fixa=6698) [place] [id number] POCT-GLUCOSE [id number] 07:45:00 Test Item Value Reference Range Comments POC-GLUCOSE METER (BEAKER) 201 mg/dL 70-110 TESTED AT [address] (test itsj=6640) [facility] [address] BASIC METABOLIC [id number] 05:21:00 Test Item Value Reference Range Comments SODIUM (BEAKER) (test 134 meq/L 136-145 epux=457) POTASSIUM (BEAKER) (test 4.0 meq/L 3.5-5.1 Specimen slightly rxwc=749) hemolyzed CHLORIDE (BEAKER) (test 103 meq/L 98-107 ntum=134) CO2 (BEAKER) (test 23 meq/L 22-29 whtu=321) BLOOD UREA NITROGEN 18 mg/dL 7-21 (BEAKER) (test vxlh=638) CREATININE (BEAKER) (test 2.31 mg/dL 0.57-1.25 Specimen slightly xrrl=172) hemolyzed GLUCOSE RANDOM (BEAKER) 140 mg/dL 70-105 (test zwtc=542) CALCIUM (BEAKER) (test 8.8 mg/dL 8.4-10.2 jwsj=716) EGFR (BEAKER) (test 22 mL/min/1.73 sq m ESTIMATED GFR IS NOT cjem=3247) ACCURATE CREATININE CLEARANCE IN PREDICTING GLOMERULAR FILTRATION RATE. ESTIMATED GFR IS NOT APPLICABLE FOR DIALYSIS PATIENTS. [id number] 05:09:00 Test Item Value Reference Range Comments MAGNESIUM (BEAKER) (test 1.5 mg/dL 1.6-2.6 Specimen slightly hemolyzed jttz=635) [id number] 05:09:00 Test Item Value Reference Range Comments PHOSPHORUS (BEAKER) (test 2.8 mg/dL 2.3-4.7 Specimen slightly hemolyzed zwki=071) CBC W/PLT COUNT & AUTO [id number] 04:32:00 Test Item Value Reference Range Comments WHITE BLOOD CELL COUNT (BEAKER) (test regc=680) 16.5 K/ L 3.5-10.5 RED BLOOD CELL COUNT (BEAKER) (test ottj=162) 3.71 M/ L 3.93-5.22 HEMOGLOBIN (BEAKER) (test epve=651) 10.4 GM/DL 11.2-15.7 HEMATOCRIT (BEAKER) (test hbrc=695) 31.6 % 34.1-44.9 MEAN CORPUSCULAR VOLUME (BEAKER) (test cdju=986) 85.2 fL 79.4-94.8 MEAN CORPUSCULAR HEMOGLOBIN (BEAKER) (test 28.0 pg 25.6-32.2 hdxe=524) MEAN CORPUSCULAR HEMOGLOBIN CONC (BEAKER) (test 32.9 GM/DL 32.2-35.5 vowm=174) RED CELL DISTRIBUTION WIDTH (BEAKER) (test 14.6 % 11.7-14.4 dgkw=684) PLATELET COUNT (BEAKER) (test trfc=664) 208 K/CU MM 150-450 MEAN PLATELET VOLUME (BEAKER) (test hvoj=647) 9.0 fL 9.4-12.3 NUCLEATED RED BLOOD CELLS (BEAKER) (test 0 /100 WBC 0-0 mjti=899) NEUTROPHILS RELATIVE PERCENT (BEAKER) (test 70 % ftex=184) LYMPHOCYTES RELATIVE PERCENT (BEAKER) (test 10 % qldo=035) MONOCYTES RELATIVE PERCENT (BEAKER) (test 16 % rjrd=021) EOSINOPHILS RELATIVE PERCENT (BEAKER) (test 2 % rxoh=002) BASOPHILS RELATIVE PERCENT (BEAKER) (test 0 % qfou=151) NEUTROPHILS ABSOLUTE COUNT (BEAKER) (test 11.58 K/ L 1.56-6.13 hzco=790) LYMPHOCYTES ABSOLUTE COUNT (BEAKER) (test 1.72 K/ L 1.18-3.74 kyog=622) MONOCYTES ABSOLUTE COUNT (BEAKER) (test 2.67 K/ L 0.24-0.36 fmja=860) EOSINOPHILS ABSOLUTE COUNT (BEAKER) (test 0.29 K/ L 0.04-0.36 lrhq=088) BASOPHILS ABSOLUTE COUNT (BEAKER) (test 0.05 K/ L 0.01-0.08 iyja=010) IMMATURE GRANULOCYTES-RELATIVE PERCENT (BEAKER) 1 % 0-1 (test nhyn=5145) POCT-GLUCOSE [id number] 21:34:00 Test Item Value Reference Range Comments POC-GLUCOSE METER (BEAKER) 104 mg/dL 70-110 TESTED AT [address] (test dbkp=4097) [place] [id number] POCT-GLUCOSE [id number] 17:16:00 Test Item Value Reference Range Comments POC-GLUCOSE METER (BEAKER) 262 mg/dL 70-110 TESTED AT [address] (test fhiq=9173) [place] [address] URINE [id number] 11:56:00 Test Item Value Reference Range Comments CULTURE (BEAKER) (test 50-59,000 col/mL Beronica mtpr=3015) glabrata 10-19,000 col/ml skin floraPOCT-GLUCOSE [id number] 11:29:00 Test Item Value Reference Range Comments POC-GLUCOSE METER (BEAKER) 148 mg/dL 70-110 TESTED AT [address] (test zhez=0684) [place] [address] POCT-GLUCOSE [id number] 08:58:00 Test Item Value Reference Range Comments POC-GLUCOSE METER (BEAKER) 141 mg/dL 70-110 TESTED AT [address] (test zxsy=9853) [place] [address] BASIC METABOLIC [id number] 05:45:00 Test Item Value Reference Range Comments SODIUM (BEAKER) (test 132 meq/L 136-145 tfxq=970) POTASSIUM (BEAKER) (test 3.8 meq/L 3.5-5.1 emal=782) CHLORIDE (BEAKER) (test 102 meq/L 98-107 jdeg=326) CO2 (BEAKER) (test 20 meq/L 22-29 urub=835) BLOOD UREA NITROGEN 18 mg/dL 7-21 (BEAKER) (test voat=197) CREATININE (BEAKER) (test 2.00 mg/dL 0.57-1.25 mwuf=847) GLUCOSE RANDOM (BEAKER) 130 mg/dL 70-105 (test hmur=213) CALCIUM (BEAKER) (test 9.0 mg/dL 8.4-10.2 coda=957) EGFR (BEAKER) (test 26 mL/min/1.73 sq m ESTIMATED GFR IS NOT dcyh=9128) ACCURATE CREATININE CLEARANCE IN PREDICTING GLOMERULAR FILTRATION RATE. ESTIMATED GFR IS NOT APPLICABLE FOR DIALYSIS PATIENTS. [id number] 05:30:00 Test Item Value Reference Range Comments PHOSPHORUS (BEAKER) (test cfsj=060) 2.8 mg/dL 2.3-4.7 [id number] 05:30:00 Test Item Value Reference Range Comments MAGNESIUM (BEAKER) (test hbqd=788) 1.6 mg/dL 1.6-2.6 CBC W/PLT COUNT & AUTO [id number] 05:07:00 Test Item Value Reference Range Comments WHITE BLOOD CELL COUNT (BEAKER) (test riuo=584) 12.1 K/ L 3.5-10.5 RED BLOOD CELL COUNT (BEAKER) (test vdsk=272) 3.84 M/ L 3.93-5.22 HEMOGLOBIN (BEAKER) (test qqhj=878) 10.7 GM/DL 11.2-15.7 HEMATOCRIT (BEAKER) (test qrgy=483) 34.9 % 34.1-44.9 MEAN CORPUSCULAR VOLUME (BEAKER) (test gqts=485) 90.9 fL 79.4-94.8 MEAN CORPUSCULAR HEMOGLOBIN (BEAKER) (test 27.9 pg 25.6-32.2 goad=296) MEAN CORPUSCULAR HEMOGLOBIN CONC (BEAKER) (test 30.7 GM/DL 32.2-35.5 azqw=216) RED CELL DISTRIBUTION WIDTH (BEAKER) (test 14.5 % 11.7-14.4 glpt=674) PLATELET COUNT (BEAKER) (test uxsq=457) 167 K/CU MM 150-450 MEAN PLATELET VOLUME (BEAKER) (test znim=925) 9.8 fL 9.4-12.3 NUCLEATED RED BLOOD CELLS (BEAKER) (test 0 /100 WBC 0-0 iuhz=602) NEUTROPHILS RELATIVE PERCENT (BEAKER) (test 74 % bwqc=186) LYMPHOCYTES RELATIVE PERCENT (BEAKER) (test 10 % ldcc=527) MONOCYTES RELATIVE PERCENT (BEAKER) (test 14 % nrwg=984) EOSINOPHILS RELATIVE PERCENT (BEAKER) (test 2 % llng=830) BASOPHILS RELATIVE PERCENT (BEAKER) (test 0 % ascp=152) NEUTROPHILS ABSOLUTE COUNT (BEAKER) (test 8.95 K/ L 1.56-6.13 mryk=987) LYMPHOCYTES ABSOLUTE COUNT (BEAKER) (test 1.20 K/ L 1.18-3.74 rmij=688) MONOCYTES ABSOLUTE COUNT (BEAKER) (test 1.69 K/ L 0.24-0.36 iyic=241) EOSINOPHILS ABSOLUTE COUNT (BEAKER) (test 0.18 K/ L 0.04-0.36 noid=829) BASOPHILS ABSOLUTE COUNT (BEAKER) (test 0.03 K/ L 0.01-0.08 beei=108) IMMATURE GRANULOCYTES-RELATIVE PERCENT (BEAKER) 1 % 0-1 (test rldi=5204) POCT-GLUCOSE [id number] 21:04:00 Test Item Value Reference Range Comments POC-GLUCOSE METER (BEAKER) 139 mg/dL 70-110 TESTED AT [address] (test gkee=4947) [place] [id number] POCT-GLUCOSE [id number] 17:13:00 Test Item Value Reference Range Comments POC-GLUCOSE METER (BEAKER) 127 mg/dL 70-110 TESTED AT [address] (test shhd=9947) [place] [id number] POCT-GLUCOSE [id number] 11:25:00 Test Item Value Reference Range Comments POC-GLUCOSE METER (BEAKER) 124 mg/dL 70-110 TESTED AT [address] (test xiet=2042) [place] [id number] POCT-GLUCOSE [id number] 07:28:00 Test Item Value Reference Range Comments POC-GLUCOSE METER (BEAKER) 137 mg/dL 70-110 TESTED AT [address] (test dllh=6604) [place] [address] [id number] 06:43:00 Test Item Value Reference Range Comments PHOSPHORUS (BEAKER) (test zchg=932) 2.9 mg/dL 2.3-4.7 [id number] 06:43:00 Test Item Value Reference Range Comments MAGNESIUM (BEAKER) (test jyph=212) 1.6 mg/dL 1.6-2.6 BASIC METABOLIC [id number] 06:43:00 Test Item Value Reference Range Comments SODIUM (BEAKER) (test 137 meq/L 136-145 ifhf=936) POTASSIUM (BEAKER) (test 3.8 meq/L 3.5-5.1 wtdj=935) CHLORIDE (BEAKER) (test 105 meq/L 98-107 poff=448) CO2 (BEAKER) (test 22 meq/L 22-29 qtrs=583) BLOOD UREA NITROGEN 16 mg/dL 7-21 (BEAKER) (test dicv=250) CREATININE (BEAKER) (test 1.46 mg/dL 0.57-1.25 tntt=651) GLUCOSE RANDOM (BEAKER) 125 mg/dL 70-105 (test ovdh=155) CALCIUM (BEAKER) (test 8.8 mg/dL 8.4-10.2 vnyz=499) EGFR (BEAKER) (test 37 mL/min/1.73 sq m ESTIMATED GFR IS NOT yttu=1893) ACCURATE CREATININE CLEARANCE IN PREDICTING GLOMERULAR FILTRATION RATE. ESTIMATED GFR IS NOT APPLICABLE FOR DIALYSIS PATIENTS. CBC W/PLT COUNT & AUTO [id number] 05:55:00 Test Item Value Reference Range Comments WHITE BLOOD CELL COUNT (BEAKER) (test tbpy=842) 10.7 K/ L 3.5-10.5 RED BLOOD CELL COUNT (BEAKER) (test ircv=838) 3.84 M/ L 3.93-5.22 HEMOGLOBIN (BEAKER) (test llwz=696) 10.7 GM/DL 11.2-15.7 HEMATOCRIT (BEAKER) (test tvab=223) 33.0 % 34.1-44.9 MEAN CORPUSCULAR VOLUME (BEAKER) (test bdlq=611) 85.9 fL 79.4-94.8 MEAN CORPUSCULAR HEMOGLOBIN (BEAKER) (test 27.9 pg 25.6-32.2 xejl=016) MEAN CORPUSCULAR HEMOGLOBIN CONC (BEAKER) (test 32.4 GM/DL 32.2-35.5 hltv=119) RED CELL DISTRIBUTION WIDTH (BEAKER) (test 14.4 % 11.7-14.4 mwkv=184) PLATELET COUNT (BEAKER) (test latu=971) 172 K/CU MM 150-450 MEAN PLATELET VOLUME (BEAKER) (test qwkd=820) 9.2 fL 9.4-12.3 NUCLEATED RED BLOOD CELLS (BEAKER) (test 0 /100 WBC 0-0 ezlu=195) NEUTROPHILS RELATIVE PERCENT (BEAKER) (test 69 % dblc=943) LYMPHOCYTES RELATIVE PERCENT (BEAKER) (test 14 % qmch=406) MONOCYTES RELATIVE PERCENT (BEAKER) (test 14 % siru=767) EOSINOPHILS RELATIVE PERCENT (BEAKER) (test 2 % lbps=916) BASOPHILS RELATIVE PERCENT (BEAKER) (test 0 % kpcd=830) NEUTROPHILS ABSOLUTE COUNT (BEAKER) (test 7.32 K/ L 1.56-6.13 vzqr=088) LYMPHOCYTES ABSOLUTE COUNT (BEAKER) (test 1.50 K/ L 1.18-3.74 ivdk=932) MONOCYTES ABSOLUTE COUNT (BEAKER) (test 1.46 K/ L 0.24-0.36 dltd=167) EOSINOPHILS ABSOLUTE COUNT (BEAKER) (test 0.26 K/ L 0.04-0.36 bjgi=343) BASOPHILS ABSOLUTE COUNT (BEAKER) (test 0.03 K/ L 0.01-0.08 ytqq=954) IMMATURE GRANULOCYTES-RELATIVE PERCENT (BEAKER) 1 % 0-1 (test euoz=4597) POCT-GLUCOSE [id number] 21:37:00 Test Item Value Reference Range Comments POC-GLUCOSE METER (BEAKER) 143 mg/dL 70-110 TESTED AT [address] (test rzjc=4094) [facility] [address] POCT-GLUCOSE [id number] 18:04:00 Test Item Value Reference Range Comments POC-GLUCOSE METER (BEAKER) 143 mg/dL 70-110 TESTED AT [address] (test osmk=2816) [facility] [address] VANCOMYCIN LEVEL, [id number] 15:00:00 Test Item Value Reference Range Comments VANCOMYCIN TROUGH (BEAKER) (test wjyi=782) 9.0 ug/mL 10.0-20.0 Please hold next vanc dose until vanc trough results.TISSUE [id number] 14:20 :00Surgical Pathology Report Case: [id number] Authorizing Provider: Jag Escalera MD Collected: 06/13/2017 3905 Ordering Location: [facility] PERIOPERATIVE Received: 06/14/2017 0753 SERVICES Pathologist: Aquilino Diaz MD Specimen: SoftTissue, Other, right upj segment RENAL PELVIS, RIGHT URETEROPELVIC JUNCTION, BIOPSY:- HAPHAZARD ARRANGEMENT OF SMOOTH MUSCLE BUNDLES WITH JENNIFER-MUSCULAR FIBROSIS, CONSISTENT WITH URETEROPELVIC JUNCTION OBSTRUCTION- NEGATIVE FOR DYSPLASIA OR MALIGNANCYSigning Pathologist Direct Phone Line: [phone] signed by Aquilino Diaz MD on 06/19/2017 at 2:20 [id number] obstructionRight UPJ segmentReceived fresh labeled "right UPJ segment" are two irregular pink-camacho to mary-white rubbery fragments of soft tissue measuring 1.5 x1.0 x 0.2 cm in aggregate. Sectioning reveals no discrete masses. The specimen is entirely submittedin cassette A1. DB/plPerformed.POCT-GLUCOSE [id number] 13:48:00 Test Item Value Reference Range Comments POC-GLUCOSE METER (BEAKER) 156 mg/dL 70-110 TESTED AT [address] (test luob=5475) [place] [address] RAD, CHEST, 2 [id number] 10:31:00Reason for exam:->feverFINAL REPORT Chest x-ray, PA [...] the right lung.Suggest radiographic follow-up. Signed: Yulisa Monsonort Verified Date/Time: 06/19/2017 10:31:11 Reading Location: [facility] Radiology Reading Room POCT-GLUCOSE [id number] 07 :32:00 Test Item Value Reference Range Comments POC-GLUCOSE METER (BEAKER) 163 mg/dL 70-110 TESTED AT [address] (test lnxw=2898) [place] [address] [id number] 06:28:00 Test Item Value Reference Range Comments PHOSPHORUS (BEAKER) (test exwg=610) 4.0 mg/dL 2.3-4.7 [id number] 06:28:00 Test Item Value Reference Range Comments MAGNESIUM (BEAKER) (test yvod=266) 1.9 mg/dL 1.6-2.6 BASIC METABOLIC [id number] 06:28:00 Test Item Value Reference Range Comments SODIUM (BEAKER) (test 134 meq/L 136-145 gvxj=950) POTASSIUM (BEAKER) (test 4.2 meq/L 3.5-5.1 cemf=528) CHLORIDE (BEAKER) (test 102 meq/L 98-107 eilv=912) CO2 (BEAKER) (test 24 meq/L 22-29 ahbk=315) BLOOD UREA NITROGEN 17 mg/dL 7-21 (BEAKER) (test zksq=574) CREATININE (BEAKER) (test 1.70 mg/dL 0.57-1.25 gccz=981) GLUCOSE RANDOM (BEAKER) 158 mg/dL 70-105 (test jero=616) CALCIUM (BEAKER) (test 8.9 mg/dL 8.4-10.2 dunl=685) EGFR (BEAKER) (test 31 mL/min/1.73 sq m ESTIMATED GFR IS NOT rdvp=4056) ACCURATE CREATININE CLEARANCE IN PREDICTING GLOMERULAR FILTRATION RATE. ESTIMATED GFR IS NOT APPLICABLE FOR DIALYSIS PATIENTS. CBC W/PLT COUNT & AUTO [id number] 06:27:00 Test Item Value Reference Range Comments WHITE BLOOD CELL COUNT (BEAKER) (test zlln=173) 13.6 K/ L 3.5-10.5 RED BLOOD CELL COUNT (BEAKER) (test axrx=395) 4.09 M/ L 3.93-5.22 HEMOGLOBIN (BEAKER) (test oooq=497) 11.3 GM/DL 11.2-15.7 HEMATOCRIT (BEAKER) (test abgj=978) 35.3 % 34.1-44.9 MEAN CORPUSCULAR VOLUME (BEAKER) (test tieh=484) 86.3 fL 79.4-94.8 MEAN CORPUSCULAR HEMOGLOBIN (BEAKER) (test 27.6 pg 25.6-32.2 xiqy=310) MEAN CORPUSCULAR HEMOGLOBIN CONC (BEAKER) (test 32.0 GM/DL 32.2-35.5 pdob=798) RED CELL DISTRIBUTION WIDTH (BEAKER) (test 14.5 % 11.7-14.4 imtp=683) PLATELET COUNT (BEAKER) (test dpwq=888) 218 K/CU MM 150-450 MEAN PLATELET VOLUME (BEAKER) (test hnft=879) 9.1 fL 9.4-12.3 NUCLEATED RED BLOOD CELLS (BEAKER) (test 0 /100 WBC 0-0 vxbd=347) NEUTROPHILS RELATIVE PERCENT (BEAKER) (test 82 % vvtg=287) LYMPHOCYTES RELATIVE PERCENT (BEAKER) (test 7 % wkkl=565) MONOCYTES RELATIVE PERCENT (BEAKER) (test 10 % dmzj=503) EOSINOPHILS RELATIVE PERCENT (BEAKER) (test 1 % fwfv=910) BASOPHILS RELATIVE PERCENT (BEAKER) (test 0 % ifvm=360) NEUTROPHILS ABSOLUTE COUNT (BEAKER) (test 11.10 K/ L 1.56-6.13 wdso=682) LYMPHOCYTES ABSOLUTE COUNT (BEAKER) (test 0.92 K/ L 1.18-3.74 utkp=033) MONOCYTES ABSOLUTE COUNT (BEAKER) (test 1.30 K/ L 0.24-0.36 qrix=038) EOSINOPHILS ABSOLUTE COUNT (BEAKER) (test 0.07 K/ L 0.04-0.36 mpcl=831) BASOPHILS ABSOLUTE COUNT (BEAKER) (test 0.03 K/ L 0.01-0.08 tuhm=474) IMMATURE GRANULOCYTES-RELATIVE PERCENT (BEAKER) 1 % 0-1 (test gkjd=5553) POCT-GLUCOSE [id number] 21:24:00 Test Item Value Reference Range Comments POC-GLUCOSE METER (BEAKER) 172 mg/dL 70-110 TESTED AT [address] (test wkrs=2608) [facility] [address] POCT-GLUCOSE [id number] 17:00:00 Test Item Value Reference Range Comments POC-GLUCOSE METER (BEAKER) 164 mg/dL 70-110 TESTED AT [address] (test kium=7088) [facility] [address] POCT-GLUCOSE [id number] 13:16:00 Test Item Value Reference Range Comments POC-GLUCOSE METER (BEAKER) 168 mg/dL 70-110 TESTED AT [address] (test iwky=1016) [facility] [address] POCT-GLUCOSE [id number] 07:26:00 Test Item Value Reference Range Comments POC-GLUCOSE METER (BEAKER) 164 mg/dL 70-110 TESTED AT [facility] [address] (test xjgd=1126) [facility] [address] BASIC METABOLIC [id number] 05:05:00 Test Item Value Reference Range Comments SODIUM (BEAKER) (test 134 meq/L 136-145 rohs=433) POTASSIUM (BEAKER) (test 4.9 meq/L 3.5-5.1 ujab=278) CHLORIDE (BEAKER) (test 102 meq/L 98-107 khbp=232) CO2 (BEAKER) (test 22 meq/L 22-29 grbd=784) BLOOD UREA NITROGEN 18 mg/dL 7-21 (BEAKER) (test rakn=922) CREATININE (BEAKER) (test 1.42 mg/dL 0.57-1.25 ymzq=501) GLUCOSE RANDOM (BEAKER) 179 mg/dL 70-105 (test zoal=940) CALCIUM (BEAKER) (test 9.3 mg/dL 8.4-10.2 uplt=049) EGFR (BEAKER) (test 38 mL/min/1.73 sq m ESTIMATED GFR IS NOT msun=9395) ACCURATE CREATININE CLEARANCE IN PREDICTING GLOMERULAR FILTRATION RATE. ESTIMATED GFR IS NOT APPLICABLE FOR DIALYSIS PATIENTS. [id number] 05:04:00 Test Item Value Reference Range Comments PHOSPHORUS (BEAKER) (test zcyu=088) 4.8 mg/dL 2.3-4.7 [id number] 05:04:00 Test Item Value Reference Range Comments MAGNESIUM (BEAKER) (test mcam=966) 1.6 mg/dL 1.6-2.6 CBC W/PLT COUNT & AUTO [id number] 03:57:00 Test Item Value Reference Range Comments WHITE BLOOD CELL COUNT (BEAKER) (test uvme=828) 15.5 K/ L 3.5-10.5 RED BLOOD CELL COUNT (BEAKER) (test jolw=964) 4.45 M/ L 3.93-5.22 HEMOGLOBIN (BEAKER) (test pvlo=588) 12.2 GM/DL 11.2-15.7 HEMATOCRIT (BEAKER) (test jumy=814) 38.2 % 34.1-44.9 MEAN CORPUSCULAR VOLUME (BEAKER) (test zsqe=546) 85.8 fL 79.4-94.8 MEAN CORPUSCULAR HEMOGLOBIN (BEAKER) (test 27.4 pg 25.6-32.2 iowc=355) MEAN CORPUSCULAR HEMOGLOBIN CONC (BEAKER) (test 31.9 GM/DL 32.2-35.5 okip=428) RED CELL DISTRIBUTION WIDTH (BEAKER) (test 14.5 % 11.7-14.4 bgyl=765) PLATELET COUNT (BEAKER) (test wwph=491) 269 K/CU MM 150-450 MEAN PLATELET VOLUME (BEAKER) (test sbvk=900) 9.1 fL 9.4-12.3 NUCLEATED RED BLOOD CELLS (BEAKER) (test 0 /100 WBC 0-0 awie=327) NEUTROPHILS RELATIVE PERCENT (BEAKER) (test 76 % dfyj=063) LYMPHOCYTES RELATIVE PERCENT (BEAKER) (test 13 % yfdj=692) MONOCYTES RELATIVE PERCENT (BEAKER) (test 9 % qbkg=310) EOSINOPHILS RELATIVE PERCENT (BEAKER) (test 1 % kibg=684) BASOPHILS RELATIVE PERCENT (BEAKER) (test 0 % lqxq=171) NEUTROPHILS ABSOLUTE COUNT (BEAKER) (test 11.79 K/ L 1.56-6.13 cmuh=390) LYMPHOCYTES ABSOLUTE COUNT (BEAKER) (test 2.02 K/ L 1.18-3.74 ggko=469) MONOCYTES ABSOLUTE COUNT (BEAKER) (test 1.35 K/ L 0.24-0.36 xgmk=700) EOSINOPHILS ABSOLUTE COUNT (BEAKER) (test 0.21 K/ L 0.04-0.36 vypr=005) BASOPHILS ABSOLUTE COUNT (BEAKER) (test 0.04 K/ L 0.01-0.08 pgad=883) IMMATURE GRANULOCYTES-RELATIVE PERCENT (BEAKER) 1 % 0-1 (test gyco=1632) CT, [id number] 20:27:00Reason for exam:->flank pain s/p pyeloplastyFINAL REPORT [...] Verified Date/Time: 06/17/2017 20:27:27 Reading Location: [address] Reading Room CBC ( HEMOGRAM ONLY)2017-06-17 20:19:00 Test Item Value Reference Range Comments WHITE BLOOD CELL COUNT (BEAKER) (test 16.5 K/ L 4.0-10.0 rmrf=293) RED BLOOD CELL COUNT (BEAKER) (test 4.75 M/ L 4.00-5.00 lyhh=784) HEMOGLOBIN (BEAKER) (test mojc=007) 13.6 GM/DL 12.0-15.0 HEMATOCRIT (BEAKER) (test cdju=735) 40.9 % 36.0-45.0 MEAN CORPUSCULAR VOLUME (BEAKER) (test 86.1 fL 82.0-99.0 ltgm=766) MEAN CORPUSCULAR HEMOGLOBIN (BEAKER) 28.6 pg 27.0-33.0 (test symg=707) MEAN CORPUSCULAR HEMOGLOBIN CONC 33.3 GM/DL 32.0-36.0 (BEAKER) (test ctvn=330) RED CELL DISTRIBUTION WIDTH (BEAKER) % 10.3-14.2 TEST NOT PERFORMED (test wyve=907) PLATELET COUNT (BEAKER) (test 321 K/CU MM 150-430 abir=270) BASIC METABOLIC [id number] 20:18:00 Test Item Value Reference Range Comments SODIUM (BEAKER) (test 136 meq/L 135-148 gkox=004) POTASSIUM (BEAKER) (test 3.9 meq/L 3.6-5.5 vbmn=885) CHLORIDE (BEAKER) (test 98 meq/L 98-106 lfwy=138) CO2 (BEAKER) (test 26 meq/L 24-32 jwsp=838) BLOOD UREA NITROGEN 15 mg/dL 10-26 (BEAKER) (test smhg=127) CREATININE (BEAKER) (test 1.30 mg/dL 0.50-1.20 cekc=253) GLUCOSE RANDOM (BEAKER) 155 mg/dL 70-110 (test yjkg=272) CALCIUM (BEAKER) (test 9.9 mg/dL 8.5-10.5 zrbh=527) EGFR (BEAKER) (test 42 mL/min/1.73 sq m ESTIMATED GFR IS NOT mhei=1011) ACCURATE CREATININE CLEARANCE IN PREDICTING GLOMERULAR FILTRATION RATE. ESTIMATED GFR IS NOT APPLICABLE FOR DIALYSIS PATIENTS. POCT-GLUCOSE [id number] 12:06:00 Test Item Value Reference Range Comments POC-GLUCOSE METER (BEAKER) 160 mg/dL 70-110 TESTED AT [address] (test wgna=0788) [facility] [address] POCT-GLUCOSE [id number] 07:33:00 Test Item Value Reference Range Comments POC-GLUCOSE METER (BEAKER) 246 mg/dL 70-110 TESTED AT [address] (test snqa=8892) [facility] [address] POCT-GLUCOSE [id number] 22:02:00 Test Item Value Reference Range Comments POC-GLUCOSE METER (BEAKER) 206 mg/dL 70-110 TESTED AT [address] (test ldws=3471) [place] [address] POCT-GLUCOSE [id number] 17:55:00 Test Item Value Reference Range Comments POC-GLUCOSE METER (BEAKER) 265 mg/dL 70-110 TESTED AT [place] [id number] [facility] (test ofnm=8828) [place] [id number] POCT-GLUCOSE [id number] 08:39:00 Test Item Value Reference Range Comments POC-GLUCOSE METER (BEAKER) 189 mg/dL 70-110 TESTED AT [address] (test mqui=2059) [place] [address] POCT-GLUCOSE [id number] 07:44:00 Test Item Value Reference Range Comments POC-GLUCOSE METER (BEAKER) 173 mg/dL 70-110 TESTED AT [address] (test sfrr=7308) [place] [id number] BASIC METABOLIC [id number] 06:49:00 Test Item Value Reference Range Comments SODIUM (BEAKER) (test 138 meq/L 136-145 awnx=424) POTASSIUM (BEAKER) (test 4.1 meq/L 3.5-5.1 lluw=996) CHLORIDE (BEAKER) (test 106 meq/L 98-107 seqd=429) CO2 (BEAKER) (test 24 meq/L 22-29 zdkc=087) BLOOD UREA NITROGEN 15 mg/dL 7-21 (BEAKER) (test fnff=864) CREATININE (BEAKER) (test 0.75 mg/dL 0.57-1.25 nqfp=428) GLUCOSE RANDOM (BEAKER) 166 mg/dL 70-105 (test ymmm=337) CALCIUM (BEAKER) (test 8.8 mg/dL 8.4-10.2 esww=920) EGFR (BEAKER) (test 80 mL/min/1.73 sq m ESTIMATED GFR IS NOT gcvr=8869) ACCURATE CREATININE CLEARANCE IN PREDICTING GLOMERULAR FILTRATION RATE. ESTIMATED GFR IS NOT APPLICABLE FOR DIALYSIS PATIENTS. HEMOGLOBIN AND [id number] 06:28:00 Test Item Value Reference Range Comments HEMOGLOBIN (BEAKER) (test xtao=268) 12.3 GM/DL 11.2-15.7 HEMATOCRIT (BEAKER) (test umic=723) 38.8 % 34.1-44.9 BASIC METABOLIC [id number] 11:05:00 Test Item Value Reference Range Comments SODIUM (BEAKER) (test 139 meq/L 136-145 yflb=380) POTASSIUM (BEAKER) (test 4.2 meq/L 3.5-5.1 Specimen slightly jhgu=169) hemolyzed CHLORIDE (BEAKER) (test 107 meq/L 98-107 oxwj=212) CO2 (BEAKER) (test 24 meq/L 22-29 mprc=065) BLOOD UREA NITROGEN 19 mg/dL 7-21 (BEAKER) (test qnwu=044) CREATININE (BEAKER) (test 0.81 mg/dL 0.57-1.25 Specimen slightly ejrx=688) hemolyzed GLUCOSE RANDOM (BEAKER) 205 mg/dL 70-105 (test ruhl=137) CALCIUM (BEAKER) (test 9.3 mg/dL 8.4-10.2 iqpy=216) EGFR (BEAKER) (test 73 mL/min/1.73 sq m ESTIMATED GFR IS NOT pbyr=6251) ACCURATE CREATININE CLEARANCE IN PREDICTING GLOMERULAR FILTRATION RATE. ESTIMATED GFR IS NOT APPLICABLE FOR DIALYSIS PATIENTS. HEMOGLOBIN AND [id number] 10:48:00 Test Item Value Reference Range Comments HEMOGLOBIN (BEAKER) (test neob=294) 13.4 GM/DL 11.2-15.7 HEMATOCRIT (BEAKER) (test cgkh=984) 41.7 % 34.1-44.9 POCT-GLUCOSE [id number] 10:25:00 Test Item Value Reference Range Comments POC-GLUCOSE METER (BEAKER) 216 mg/dL 70-110 TESTED AT [facility] [address] [facility] (test dqbg=8720) [facility] [address] TISSUE [id number] 12:11:00Surgical Pathology Report Case: [id number] Authorizing Provider: Jessica Ivory MD Collected: 05/02/2017 1147 Ordering Location: [facility] Endoscopy Received: 05/02/2017 1533 Services Pathologist: Tung Connor MD Specimens: A) - Polyp, Colon - Right/Ascending B) -Polyp, Colon - Rectum A. COLON, RIGHT /ASCENDING POLYP, BIOPSY: - FRAGMENT OF TUBULAR ADENOMA (x1) - SEPARATE FRAGMENTS OF UNREMARKABLE COLONIC MUCOSAB. RECTUM, POLYP, BIOPSY: - FRAGMENTS OF HYPERPLASTIC POLYP (x3) Signing [facility] Phone Line: [phone] signed by Tung Connor MD on 05/03/2017 at 12:11 [id number], large intestine without perforation or abscess without [...] camacho tissue, submitted B1. CG/pl Performed.URINALYSIS W/ [id number] 14:08:00 Test Item Value Reference Range Comments COLOR (BEAKER) (test nzbf=597) Yellow CLARITY (BEAKER) (test rtcj=281) Hazy SPECIFIC GRAVITY UA (BEAKER) (test euih=519) 1.015 1.001-1.035 PH UA (BEAKER) (test ybqe=557) 5.5 5.0-8.0 PROTEIN UA (BEAKER) (test pbtv=703) 10 mg/dL Negative GLUCOSE UA (BEAKER) (test qgrt=102) Negative Negative KETONES UA (BEAKER) (test mhqs=948) Negative Negative BILIRUBIN UA (BEAKER) (test imsv=906) Negative Negative BLOOD UA (BEAKER) (test mdev=228) Moderate Negative NITRITE UA (BEAKER) (test oiot=583) Negative Negative LEUKOCYTE ESTERASE UA (BEAKER) (test edck=545) Large Negative UROBILINOGEN UA (BEAKER) (test thsu=135) 0.2 mg/dL 0.2-1.0 RBC UA (BEAKER) (test wajy=295) 46 /HPF WBC UA (BEAKER) (test rakh=199) 53 /HPF BACTERIA (BEAKER) (test hxfb=172) Rare MUCUS (BEAKER) (test btog=6232) Rare SQUAMOUS EPITHELIAL (BEAKER) (test xfxu=308) 1 /HPF HYALINE CASTS (BEAKER) (test wxcx=810) 2 /LPF SOURCE(BEAKER) (test fqbe=2209) BASIC METABOLIC [id number] 12:36:00 Test Item Value Reference Range Comments SODIUM (BEAKER) (test 140 meq/L 136-145 bgjm=342) POTASSIUM (BEAKER) (test 4.0 meq/L 3.5-5.1 xyzq=877) CHLORIDE (BEAKER) (test 106 meq/L 98-107 spzx=098) CO2 (BEAKER) (test 24 meq/L 22-29 pysn=796) BLOOD UREA NITROGEN 16 mg/dL 7-21 (BEAKER) (test qgna=510) CREATININE (BEAKER) (test 0.81 mg/dL 0.57-1.25 xdqu=532) GLUCOSE RANDOM (BEAKER) 146 mg/dL 70-105 (test tfxw=717) CALCIUM (BEAKER) (test 9.8 mg/dL 8.4-10.2 dnjf=945) EGFR (BEAKER) (test 73 mL/min/1.73 sq m ESTIMATED GFR IS NOT spwt=3336) ACCURATE CREATININE CLEARANCE IN PREDICTING GLOMERULAR FILTRATION RATE. ESTIMATED GFR IS NOT APPLICABLE FOR DIALYSIS PATIENTS. [id number] 11:58:00 Test Item Value Reference Range Comments PARTIAL THROMBOPLASTIN TIME (BEAKER) (test 35.7 seconds 22.5-36.0 yhbg=496) PROTHROMBIN TIME/[id number] 11:57:00 Test Item Value Reference Range Comments PROTIME (BEAKER) (test eund=570) 13.6 seconds 11.7-14.7 INR (BEAKER) (test grup=319) 1.1 <=5.9 RECOMMENDED COUMADIN/WARFARIN INR THERAPY RANGESSTANDARD DOSE: 2.0 - 3.0 Includes: PROPHYLAXIS forvenous thrombosis, systemic embolization; TREATMENT for venous thrombosis and/or pulmonary embolus.HIGH RISK: Target INR is 2.5-3.5 for patients with mechanical heart valves.CBC W/PLT COUNT & AUTO [id number] 11:50:00 Test Item Value Reference Range Comments WHITE BLOOD CELL COUNT (BEAKER) (test bqdo=350) 8.0 K/ L 3.5-10.5 RED BLOOD CELL COUNT (BEAKER) (test bjcq=567) 5.04 M/ L 3.93-5.22 HEMOGLOBIN (BEAKER) (test lrov=785) 13.8 GM/DL 11.2-15.7 HEMATOCRIT (BEAKER) (test voxm=368) 43.3 % 34.1-44.9 MEAN CORPUSCULAR VOLUME (BEAKER) (test hywr=619) 85.9 fL 79.4-94.8 MEAN CORPUSCULAR HEMOGLOBIN (BEAKER) (test 27.4 pg 25.6-32.2 mujh=743) MEAN CORPUSCULAR HEMOGLOBIN CONC (BEAKER) (test 31.9 GM/DL 32.2-35.5 smvf=177) RED CELL DISTRIBUTION WIDTH (BEAKER) (test 15.3 % 11.7-14.4 yder=471) PLATELET COUNT (BEAKER) (test wkxy=240) 305 K/CU MM 150-450 MEAN PLATELET VOLUME (BEAKER) (test vzbg=197) 9.0 fL 9.4-12.3 NUCLEATED RED BLOOD CELLS (BEAKER) (test 0 /100 WBC 0-0 ouzb=171) NEUTROPHILS RELATIVE PERCENT (BEAKER) (test 57 % fype=840) LYMPHOCYTES RELATIVE PERCENT (BEAKER) (test 33 % rwyv=239) MONOCYTES RELATIVE PERCENT (BEAKER) (test 7 % ecuf=134) EOSINOPHILS RELATIVE PERCENT (BEAKER) (test 2 % opau=256) BASOPHILS RELATIVE PERCENT (BEAKER) (test 1 % pkpm=952) NEUTROPHILS ABSOLUTE COUNT (BEAKER) (test 4.54 K/ L 1.56-6.13 ihvu=876) LYMPHOCYTES ABSOLUTE COUNT (BEAKER) (test 2.63 K/ L 1.18-3.74 jhzf=382) MONOCYTES ABSOLUTE COUNT (BEAKER) (test 0.52 K/ L 0.24-0.36 pxjn=142) EOSINOPHILS ABSOLUTE COUNT (BEAKER) (test 0.18 K/ L 0.04-0.36 rdzw=165) BASOPHILS ABSOLUTE COUNT (BEAKER) (test 0.07 K/ L 0.01-0.08 fojg=060) IMMATURE GRANULOCYTES-RELATIVE PERCENT (BEAKER) 1 % 0-1 (test uitx=0619) POCT-GLUCOSE [id number] 17:46:00 Test Item Value Reference Range Comments POC-GLUCOSE METER (BEAKER) 201 mg/dL 70-110 TESTED AT [address] (test vovm=9950) [facility] [id number] POCT-GLUCOSE [id number] 14:15:00 Test Item Value Reference Range Comments POC-GLUCOSE METER (BEAKER) 152 mg/dL 70-110 TESTED AT [address] (test eqig=1337) [facility] [id number] POCT-GLUCOSE [id number] 08:21:00 Test Item Value Reference Range Comments POC-GLUCOSE METER (BEAKER) 149 mg/dL 70-110 TESTED AT [address] (test eoax=9722) [facility] [id number] POCT-GLUCOSE [id number] 21:11:00 Test Item Value Reference Range Comments POC-GLUCOSE METER (BEAKER) 201 mg/dL 70-110 TESTED AT [address] (test xbkf=3260) [place] [id number] POCT-GLUCOSE [id number] 18:48:00 Test Item Value Reference Range Comments POC-GLUCOSE METER (BEAKER) 188 mg/dL 70-110 TESTED AT [address] (test iyyd=8132) [place] [id number] POCT-GLUCOSE [id number] 13:32:00 Test Item Value Reference Range Comments POC-GLUCOSE METER (BEAKER) 151 mg/dL 70-110 TESTED AT [address] (test dnbj=4998) [facility] [address] POCT-GLUCOSE [id number] 08:31:00 Test Item Value Reference Range Comments POC-GLUCOSE METER (BEAKER) 149 mg/dL 70-110 TESTED AT [address] (test rpwp=3326) [facility] [id number] BASIC METABOLIC [id number] 07:11:00 Test Item Value Reference Range Comments SODIUM (BEAKER) (test 138 meq/L 136-145 bhbs=168) POTASSIUM (BEAKER) (test 3.5 meq/L 3.5-5.1 dqtt=292) CHLORIDE (BEAKER) (test 103 meq/L 98-107 jyxt=980) CO2 (BEAKER) (test 24 meq/L 22-29 quxz=645) BLOOD UREA NITROGEN 8 mg/dL 7-21 (BEAKER) (test hiaj=386) CREATININE (BEAKER) (test 0.90 mg/dL 0.57-1.25 dtzw=911) GLUCOSE RANDOM (BEAKER) 153 mg/dL 70-105 (test qecu=160) CALCIUM (BEAKER) (test 9.7 mg/dL 8.4-10.2 eztq=160) EGFR (BEAKER) (test 65 mL/min/1.73 sq m ESTIMATED GFR IS NOT zdqi=5094) ACCURATE CREATININE CLEARANCE IN PREDICTING GLOMERULAR FILTRATION RATE. ESTIMATED GFR IS NOT APPLICABLE FOR DIALYSIS PATIENTS. CBC W/PLT COUNT & AUTO [id number] 06:53:00 Test Item Value Reference Range Comments WHITE BLOOD CELL COUNT (BEAKER) (test rpvx=750) 9.1 K/ L 3.5-10.5 RED BLOOD CELL COUNT (BEAKER) (test xilj=299) 4.17 M/ L 3.93-5.22 HEMOGLOBIN (BEAKER) (test zgts=273) 11.5 GM/DL 11.2-15.7 HEMATOCRIT (BEAKER) (test kfhd=003) 36.1 % 34.1-44.9 MEAN CORPUSCULAR VOLUME (BEAKER) (test khdd=435) 86.6 fL 79.4-94.8 MEAN CORPUSCULAR HEMOGLOBIN (BEAKER) (test 27.6 pg 25.6-32.2 zlhm=349) MEAN CORPUSCULAR HEMOGLOBIN CONC (BEAKER) (test 31.9 GM/DL 32.2-35.5 woug=930) RED CELL DISTRIBUTION WIDTH (BEAKER) (test 13.9 % 11.7-14.4 jjgb=616) PLATELET COUNT (BEAKER) (test qyos=097) 389 K/CU MM 150-450 MEAN PLATELET VOLUME (BEAKER) (test nxci=534) 8.8 fL 9.4-12.3 NUCLEATED RED BLOOD CELLS (BEAKER) (test 0 /100 WBC 0-0 illf=623) NEUTROPHILS RELATIVE PERCENT (BEAKER) (test 60 % uhwg=435) LYMPHOCYTES RELATIVE PERCENT (BEAKER) (test 22 % hxhg=980) MONOCYTES RELATIVE PERCENT (BEAKER) (test 12 % spns=965) EOSINOPHILS RELATIVE PERCENT (BEAKER) (test 3 % wkme=798) BASOPHILS RELATIVE PERCENT (BEAKER) (test 1 % uytm=334) NEUTROPHILS ABSOLUTE COUNT (BEAKER) (test 5.46 K/ L 1.56-6.13 boag=612) LYMPHOCYTES ABSOLUTE COUNT (BEAKER) (test 2.04 K/ L 1.18-3.74 zbnb=502) MONOCYTES ABSOLUTE COUNT (BEAKER) (test 1.09 K/ L 0.24-0.36 hzyz=443) EOSINOPHILS ABSOLUTE COUNT (BEAKER) (test 0.29 K/ L 0.04-0.36 kpoo=149) BASOPHILS ABSOLUTE COUNT (BEAKER) (test 0.06 K/ L 0.01-0.08 qzvt=703) IMMATURE GRANULOCYTES-RELATIVE PERCENT (BEAKER) 2 % 0-1 (test cseu=7715) POCT-GLUCOSE [id number] 21:07:00 Test Item Value Reference Range Comments POC-GLUCOSE METER (BEAKER) 224 mg/dL 70-110 TESTED AT [address] (test kmcv=7311) [facility] [address] POCT-GLUCOSE [id number] 17:14:00 Test Item Value Reference Range Comments POC-GLUCOSE METER (BEAKER) 121 mg/dL 70-110 TESTED AT [address] (test hyrp=4361) [facility] [address] POCT-GLUCOSE [id number] 11:03:00 Test Item Value Reference Range Comments POC-GLUCOSE METER (BEAKER) 161 mg/dL 70-110 TESTED AT [address] (test klnv=8549) [facility] [address] POCT-GLUCOSE [id number] 07:24:00 Test Item Value Reference Range Comments POC-GLUCOSE METER (BEAKER) 191 mg/dL 70-110 TESTED AT [address] (test dxmm=6858) [facility] [address] BASIC METABOLIC [id number] 04:45:00 Test Item Value Reference Range Comments SODIUM (BEAKER) (test 137 meq/L 136-145 zzoq=045) POTASSIUM (BEAKER) (test 3.3 meq/L 3.5-5.1 kfyu=114) CHLORIDE (BEAKER) (test 102 meq/L 98-107 coiw=931) CO2 (BEAKER) (test 24 meq/L 22-29 pktz=308) BLOOD UREA NITROGEN 8 mg/dL 7-21 (BEAKER) (test lpug=638) CREATININE (BEAKER) (test 0.91 mg/dL 0.57-1.25 qxtq=348) GLUCOSE RANDOM (BEAKER) 148 mg/dL 70-105 (test cjyx=725) CALCIUM (BEAKER) (test 9.5 mg/dL 8.4-10.2 klml=477) EGFR (BEAKER) (test 64 mL/min/1.73 sq m ESTIMATED GFR IS NOT yuvz=1801) ACCURATE CREATININE CLEARANCE IN PREDICTING GLOMERULAR FILTRATION RATE. ESTIMATED GFR IS NOT APPLICABLE FOR DIALYSIS PATIENTS. POCT-GLUCOSE [id number] 21:03:00 Test Item Value Reference Range Comments POC-GLUCOSE METER (BEAKER) 164 mg/dL 70-110 TESTED AT [address] (test qxpt=9503) [place] [address] BLOOD [id number] 18:00:00 Test Item Value Reference Range Comments CULTURE (BEAKER) (test czcf=0915) No growth in 5 days BLOOD [id number] 18:00:00 Test Item Value Reference Range Comments CULTURE (BEAKER) (test lcfq=9330) No growth in 5 days POCT-GLUCOSE [id number] 17:18:00 Test Item Value Reference Range Comments POC-GLUCOSE METER (BEAKER) 154 mg/dL 70-110 TESTED AT [address] (test eyip=7404) [place] [address] POCT-GLUCOSE [id number] 11:29:00 Test Item Value Reference Range Comments POC-GLUCOSE METER (BEAKER) 117 mg/dL 70-110 TESTED AT [address] (test oihf=7708) [place] [address] URINE [id number] 09:54:00 Test Item Value Reference Range Comments CULTURE (BEAKER) (test niex=7313) No growth POCT-GLUCOSE [id number] 07:34:00 Test Item Value Reference Range Comments POC-GLUCOSE METER (BEAKER) 120 mg/dL 70-110 TESTED AT [address] (test zzpb=4339) [place] [address] BASIC METABOLIC [id number] 05:18:00 Test Item Value Reference Range Comments SODIUM (BEAKER) (test 138 meq/L 136-145 aggy=277) POTASSIUM (BEAKER) (test 3.9 meq/L 3.5-5.1 wjea=242) CHLORIDE (BEAKER) (test 104 meq/L 98-107 xqnu=363) CO2 (BEAKER) (test 26 meq/L 22-29 cfyx=601) BLOOD UREA NITROGEN 4 mg/dL 7-21 (BEAKER) (test oveu=129) CREATININE (BEAKER) (test 0.85 mg/dL 0.57-1.25 pnnb=250) GLUCOSE RANDOM (BEAKER) 110 mg/dL 70-105 (test tldv=363) CALCIUM (BEAKER) (test 9.7 mg/dL 8.4-10.2 bnbi=582) EGFR (BEAKER) (test 69 mL/min/1.73 sq m ESTIMATED GFR IS NOT rgqf=3415) ACCURATE CREATININE CLEARANCE IN PREDICTING GLOMERULAR FILTRATION RATE. ESTIMATED GFR IS NOT APPLICABLE FOR DIALYSIS PATIENTS. CBC W/PLT COUNT & AUTO [id number] 04:59:00 Test Item Value Reference Range Comments WHITE BLOOD CELL COUNT (BEAKER) (test rpml=704) 9.6 K/ L 3.5-10.5 RED BLOOD CELL COUNT (BEAKER) (test ryyr=338) 3.96 M/ L 3.93-5.22 HEMOGLOBIN (BEAKER) (test pgqe=070) 11.1 GM/DL 11.2-15.7 HEMATOCRIT (BEAKER) (test ainb=350) 34.4 % 34.1-44.9 MEAN CORPUSCULAR VOLUME (BEAKER) (test tkgu=893) 86.9 fL 79.4-94.8 MEAN CORPUSCULAR HEMOGLOBIN (BEAKER) (test 28.0 pg 25.6-32.2 uwft=892) MEAN CORPUSCULAR HEMOGLOBIN CONC (BEAKER) (test 32.3 GM/DL 32.2-35.5 voxf=728) RED CELL DISTRIBUTION WIDTH (BEAKER) (test 13.5 % 11.7-14.4 cswu=598) PLATELET COUNT (BEAKER) (test zphx=341) 338 K/CU MM 150-450 MEAN PLATELET VOLUME (BEAKER) (test ufqq=556) 8.6 fL 9.4-12.3 NUCLEATED RED BLOOD CELLS (BEAKER) (test 0 /100 WBC 0-0 ojib=859) NEUTROPHILS RELATIVE PERCENT (BEAKER) (test 62 % hrhp=768) LYMPHOCYTES RELATIVE PERCENT (BEAKER) (test 22 % xvjx=690) MONOCYTES RELATIVE PERCENT (BEAKER) (test 12 % mdou=577) EOSINOPHILS RELATIVE PERCENT (BEAKER) (test 4 % ezxf=894) BASOPHILS RELATIVE PERCENT (BEAKER) (test 1 % hdqu=070) NEUTROPHILS ABSOLUTE COUNT (BEAKER) (test 5.93 K/ L 1.56-6.13 ydmq=515) LYMPHOCYTES ABSOLUTE COUNT (BEAKER) (test 2.07 K/ L 1.18-3.74 bund=812) MONOCYTES ABSOLUTE COUNT (BEAKER) (test 1.13 K/ L 0.24-0.36 xogw=275) EOSINOPHILS ABSOLUTE COUNT (BEAKER) (test 0.35 K/ L 0.04-0.36 qnvt=392) BASOPHILS ABSOLUTE COUNT (BEAKER) (test 0.05 K/ L 0.01-0.08 clli=696) IMMATURE GRANULOCYTES-RELATIVE PERCENT (BEAKER) 1 % 0-1 (test vxve=7170) POCT-GLUCOSE [id number] 21:33:00 Test Item Value Reference Range Comments POC-GLUCOSE METER (BEAKER) 114 mg/dL 70-110 TESTED AT [address] (test uxgp=3139) [place] [id number] POCT-GLUCOSE [id number] 17:43:00 Test Item Value Reference Range Comments POC-GLUCOSE METER (BEAKER) 177 mg/dL 70-110 TESTED AT [address] (test qqdq=7601) [place] [id number] POCT-GLUCOSE [id number] 11:19:00 Test Item Value Reference Range Comments POC-GLUCOSE METER (BEAKER) 183 mg/dL 70-110 TESTED AT [address] (test xzsu=0907) [place] [id number] POCT-GLUCOSE [id number] 07:56:00 Test Item Value Reference Range Comments POC-GLUCOSE METER (BEAKER) 131 mg/dL 70-110 TESTED AT [address] (test nfku=7800) [place] [id number] BASIC METABOLIC [id number] 07:52:00 Test Item Value Reference Range Comments SODIUM (BEAKER) (test 136 meq/L 136-145 bzvx=743) POTASSIUM (BEAKER) (test 3.9 meq/L 3.5-5.1 gnlk=261) CHLORIDE (BEAKER) (test 103 meq/L 98-107 byem=840) CO2 (BEAKER) (test 24 meq/L 22-29 xgrz=182) BLOOD UREA NITROGEN 7 mg/dL 7-21 (BEAKER) (test godj=642) CREATININE (BEAKER) (test 0.87 mg/dL 0.57-1.25 xsal=749) GLUCOSE RANDOM (BEAKER) 106 mg/dL 70-105 (test cqra=551) CALCIUM (BEAKER) (test 9.1 mg/dL 8.4-10.2 rlgf=491) EGFR (BEAKER) (test 67 mL/min/1.73 sq m ESTIMATED GFR IS NOT olva=3535) ACCURATE CREATININE CLEARANCE IN PREDICTING GLOMERULAR FILTRATION RATE. ESTIMATED GFR IS NOT APPLICABLE FOR DIALYSIS PATIENTS. CBC W/PLT COUNT & AUTO [id number] 06:52:00 Test Item Value Reference Range Comments WHITE BLOOD CELL COUNT (BEAKER) (test bowx=333) 11.7 K/ L 4.0-10.0 RED BLOOD CELL COUNT (BEAKER) (test dcld=675) 4.05 M/ L 4.00-5.00 HEMOGLOBIN (BEAKER) (test nxzp=197) 11.6 GM/DL 12.0-15.0 HEMATOCRIT (BEAKER) (test amro=661) 36.4 % 36.0-45.0 MEAN CORPUSCULAR VOLUME (BEAKER) (test czmh=645) 90.0 fL 82.0-99.0 MEAN CORPUSCULAR HEMOGLOBIN (BEAKER) (test 28.7 pg 27.0-33.0 hvxp=222) MEAN CORPUSCULAR HEMOGLOBIN CONC (BEAKER) (test 31.9 GM/DL 32.0-36.0 xorc=579) RED CELL DISTRIBUTION WIDTH (BEAKER) (test 12.8 % 10.3-14.2 lhdt=951) PLATELET COUNT (BEAKER) (test qzfp=646) 352 K/CU MM 150-430 MEAN PLATELET VOLUME (BEAKER) (test itiq=066) 6.1 fL 6.5-10.5 NUCLEATED RED BLOOD CELLS (BEAKER) (test 0 /100 WBC 0-0 inxe=114) NEUTROPHILS RELATIVE PERCENT (BEAKER) (test 66 % ziyu=351) LYMPHOCYTES RELATIVE PERCENT (BEAKER) (test 19 % kbbx=141) MONOCYTES RELATIVE PERCENT (BEAKER) (test 12 % nfto=966) EOSINOPHILS RELATIVE PERCENT (BEAKER) (test 3 % eadi=897) BASOPHILS RELATIVE PERCENT (BEAKER) (test 0 % ozqb=515) NEUTROPHILS ABSOLUTE COUNT (BEAKER) (test 7.73 K/ L 1.80-8.00 rxff=904) LYMPHOCYTES ABSOLUTE COUNT (BEAKER) (test 2.22 K/ L 1.48-4.50 sktr=335) MONOCYTES ABSOLUTE COUNT (BEAKER) (test 1.35 K/ L 0.00-1.30 fqtk=433) EOSINOPHILS ABSOLUTE COUNT (BEAKER) (test 0.33 K/ L 0.00-0.50 giyc=302) BASOPHILS ABSOLUTE COUNT (BEAKER) (test 0.05 K/ L 0.00-0.20 kpqa=506) 0.00POCT-GLUCOSE [id number] 21:16:00 Test Item Value Reference Range Comments POC-GLUCOSE METER (BEAKER) 141 mg/dL 70-110 TESTED AT [address] (test bzmb=8629) [place] [id number] POCT-GLUCOSE [id number] 17:41:00 Test Item Value Reference Range Comments POC-GLUCOSE METER (BEAKER) 154 mg/dL 70-110 TESTED AT [address] (test arae=2311) [place] [id number] URINALYSIS W/ [id number] 15:10:00 Test Item Value Reference Range Comments COLOR (BEAKER) (test ddgy=625) Yellow CLARITY (BEAKER) (test kvrf=888) Clear SPECIFIC GRAVITY UA (BEAKER) (test 1.021 1.001-1.035 hzor=440) PH UA (BEAKER) (test cqbx=481) 6.0 5.0-8.0 PROTEIN UA (BEAKER) (test wmtp=990) 20 mg/dL Negative GLUCOSE UA (BEAKER) (test kzuz=709) Negative Negative KETONES UA (BEAKER) (test wsyw=707) Trace Negative BILIRUBIN UA (BEAKER) (test pfex=467) Negative Negative BLOOD UA (BEAKER) (test txhq=717) Small Negative NITRITE UA (BEAKER) (test txxe=664) Negative Negative LEUKOCYTE ESTERASE UA (BEAKER) (test Large Negative heki=530) UROBILINOGEN UA (BEAKER) (test jiit=422) 0.2 mg/dL 0.2-1.0 RBC UA (BEAKER) (test rieg=742) 1 /HPF WBC UA (BEAKER) (test vctg=925) 36 /HPF BACTERIA (BEAKER) (test cnyi=825) Occasional MUCUS (BEAKER) (test egan=6092) Rare SQUAMOUS EPITHELIAL (BEAKER) (test 2 /HPF buaj=630) SOURCE(BEAKER) (test jcii=7089) Urine, Clean Catch POCT-GLUCOSE [id number] 12:04:00 Test Item Value Reference Range Comments POC-GLUCOSE METER (BEAKER) 171 mg/dL 70-110 TESTED AT [facility] [address] [facility] (test begf=9702) [place] [address] URINE [id number] 10:02:00 Test Item Value Reference Range Comments CULTURE (BEAKER) (test idlh=1813) No growth POCT-GLUCOSE [id number] 08:15:00 Test Item Value Reference Range Comments POC-GLUCOSE METER (BEAKER) 118 mg/dL 70-110 TESTED AT [address] (test loyx=4451) [place] [address] BASIC METABOLIC [id number] 05:04:00 Test Item Value Reference Range Comments SODIUM (BEAKER) (test 137 meq/L 136-145 puee=813) POTASSIUM (BEAKER) (test 3.3 meq/L 3.5-5.1 stmo=939) CHLORIDE (BEAKER) (test 107 meq/L 98-107 sufb=605) CO2 (BEAKER) (test 22 meq/L 22-29 zizp=963) BLOOD UREA NITROGEN 7 mg/dL 7-21 (BEAKER) (test obht=051) CREATININE (BEAKER) (test 0.80 mg/dL 0.57-1.25 xtdi=217) GLUCOSE RANDOM (BEAKER) 122 mg/dL 70-105 (test zmju=937) CALCIUM (BEAKER) (test 8.0 mg/dL 8.4-10.2 jgfh=470) EGFR (BEAKER) (test 74 mL/min/1.73 sq m ESTIMATED GFR IS NOT sphj=3163) ACCURATE CREATININE CLEARANCE IN PREDICTING GLOMERULAR FILTRATION RATE. ESTIMATED GFR IS NOT APPLICABLE FOR DIALYSIS PATIENTS. CBC W/PLT COUNT & AUTO [id number] 04:57:00 Test Item Value Reference Range Comments WHITE BLOOD CELL COUNT (BEAKER) (test pavc=814) 12.3 K/ L 4.0-10.0 RED BLOOD CELL COUNT (BEAKER) (test bfvg=215) 3.77 M/ L 4.00-5.00 HEMOGLOBIN (BEAKER) (test ypfe=787) 11.1 GM/DL 12.0-15.0 HEMATOCRIT (BEAKER) (test payy=170) 33.7 % 36.0-45.0 MEAN CORPUSCULAR VOLUME (BEAKER) (test wtst=645) 89.5 fL 82.0-99.0 MEAN CORPUSCULAR HEMOGLOBIN (BEAKER) (test 29.4 pg 27.0-33.0 lcwb=184) MEAN CORPUSCULAR HEMOGLOBIN CONC (BEAKER) (test 32.9 GM/DL 32.0-36.0 acat=328) RED CELL DISTRIBUTION WIDTH (BEAKER) (test 12.7 % 10.3-14.2 ezgy=660) PLATELET COUNT (BEAKER) (test wsoo=973) 325 K/CU MM 150-430 MEAN PLATELET VOLUME (BEAKER) (test vwqb=030) 5.9 fL 6.5-10.5 NUCLEATED RED BLOOD CELLS (BEAKER) (test 0 /100 WBC 0-0 emnu=177) NEUTROPHILS RELATIVE PERCENT (BEAKER) (test 71 % oxsx=987) LYMPHOCYTES RELATIVE PERCENT (BEAKER) (test 16 % fpev=485) MONOCYTES RELATIVE PERCENT (BEAKER) (test 12 % sdwk=043) EOSINOPHILS RELATIVE PERCENT (BEAKER) (test 1 % ooqq=305) BASOPHILS RELATIVE PERCENT (BEAKER) (test 0 % gzpb=504) NEUTROPHILS ABSOLUTE COUNT (BEAKER) (test 8.72 K/ L 1.80-8.00 ysrq=986) LYMPHOCYTES ABSOLUTE COUNT (BEAKER) (test 1.95 K/ L 1.48-4.50 tamv=762) MONOCYTES ABSOLUTE COUNT (BEAKER) (test 1.48 K/ L 0.00-1.30 qrzx=441) EOSINOPHILS ABSOLUTE COUNT (BEAKER) (test 0.15 K/ L 0.00-0.50 oxfo=656) BASOPHILS ABSOLUTE COUNT (BEAKER) (test 0.04 K/ L 0.00-0.20 nbpj=629) 0.00POCT-GLUCOSE [id number] 21:51:00 Test Item Value Reference Range Comments POC-GLUCOSE METER (BEAKER) 159 mg/dL 70-110 TESTED AT [facility] [address] [facility] (test pfth=1610) [facility] [address] RAPID DRUG SCREEN, [id number] 21:21:00 Test Item Value Reference Range Comments BARBITURATE URINE (BEAKER) (test hbnd=502) Negative Negative BENZODIAZEPINE SCREEN URINE (BEAKER) (test Positive Negative hgqo=040) COCAINE (METAB.) SCREEN (BEAKER) (test xirs=8472) Negative Negative METHADONE SCREEN (BEAKER) (test kuev=8392) Negative Negative OPIATE SCREEN URINE (BEAKER) (test wkyr=059) Positive Negative CANNABINOID SCREEN URINE (BEAKER) (test ebqh=047) Negative Negative AMPH/METHAMPH SCREEN (BEAKER) (test zanz=8380) Negative Negative PHENCYCLIDINE SCREEN URINE (BEAKER) (test sywu=030) Negative Negative OXYCODONE SCREEN URINE (BEAKER) (test xqxk=8332) Negative Negative DRUG CUTOFF CONC.Cocaine 300 ng/mL Cannabinoid 50 ng/mL Benzodiazepine 200 ng/mLBarbiturate 200 ng/ mLPhencyclidine 25 ng/mLOpiate 300 ng/mLMethadone 300 ng/mLAmphetamine/ 1000 ng/mL MethamphetamineOxycodone 300 ng/mLThis assay provides an unconfirmed qualitative test result for the clinical management of patients in emergency situations. Chain of custody not maintained. Some baxk-cnm-ppqxcxp medications, as well as adulterants, may cause inaccurate results. Clinical correlation should be applied. A more comprehensive drug screen or confirmation of a detected drug may be performed upon request.POCT-GLUCOSE [id number] 14:21:00 Test Item Value Reference Range Comments POC-GLUCOSE METER (BEAKER) 113 mg/dL 70-110 TESTED AT [address] (test frha=3524) [place] [address] [id number] 10:15:00 Test Item Value Reference Range Comments RPR SCREEN (BEAKER) (test lqda=860) Nonreactive Nonreactive URINE [id number] 09:21:00 Test Item Value Reference Range Comments CULTURE (BEAKER) (test tmff=5975) >100,000 col/mL skin mckenna POCT-GLUCOSE [id number] 08:00:00 Test Item Value Reference Range Comments POC-GLUCOSE METER (BEAKER) 128 mg/dL 70-110 TESTED AT [address] (test crzf=5121) [place] [address] CBC (HEMOGRAM ONLY)[id number] 07:25:00 Test Item Value Reference Range Comments WHITE BLOOD CELL COUNT (BEAKER) (test egql=728) 13.9 K/ L 4.0-10.0 RED BLOOD CELL COUNT (BEAKER) (test ybcx=624) 4.28 M/ L 4.00-5.00 HEMOGLOBIN (BEAKER) (test annf=186) 12.1 GM/DL 12.0-15.0 HEMATOCRIT (BEAKER) (test httq=614) 37.9 % 36.0-45.0 MEAN CORPUSCULAR VOLUME (BEAKER) (test oxxz=296) 88.6 fL 82.0-99.0 MEAN CORPUSCULAR HEMOGLOBIN (BEAKER) (test 28.2 pg 27.0-33.0 hcta=007) MEAN CORPUSCULAR HEMOGLOBIN CONC (BEAKER) (test 31.8 GM/DL 32.0-36.0 npml=824) RED CELL DISTRIBUTION WIDTH (BEAKER) (test 12.7 % 10.3-14.2 szum=426) PLATELET COUNT (BEAKER) (test gwtm=547) 343 K/CU MM 150-430 MEAN PLATELET VOLUME (BEAKER) (test sazl=791) 6.0 fL 6.5-10.5 NUCLEATED RED BLOOD CELLS (BEAKER) (test 0 /100 WBC 0-0 hlru=866) 0.00BASIC METABOLIC [id number] 07:02:00 Test Item Value Reference Range Comments SODIUM (BEAKER) (test 138 meq/L 136-145 zzrp=729) POTASSIUM (BEAKER) (test 3.9 meq/L 3.5-5.1 elux=857) CHLORIDE (BEAKER) (test 104 meq/L 98-107 ithr=654) CO2 (BEAKER) (test 25 meq/L 22-29 tmmo=097) BLOOD UREA NITROGEN 7 mg/dL 7-21 (BEAKER) (test avel=862) CREATININE (BEAKER) (test 0.98 mg/dL 0.57-1.25 xbcz=371) GLUCOSE RANDOM (BEAKER) 138 mg/dL 70-105 (test tlvh=584) CALCIUM (BEAKER) (test 9.1 mg/dL 8.4-10.2 jdwo=344) EGFR (BEAKER) (test 59 mL/min/1.73 sq m ESTIMATED GFR IS NOT oomm=4076) ACCURATE CREATININE CLEARANCE IN PREDICTING GLOMERULAR FILTRATION RATE. ESTIMATED GFR IS NOT APPLICABLE FOR DIALYSIS PATIENTS. POCT-GLUCOSE [id number] 21:33:00 Test Item Value Reference Range Comments POC-GLUCOSE METER (BEAKER) 163 mg/dL 70-110 TESTED AT [address] (test zalx=5083) [place] [id number] URINALYSIS W/ [id number] 18:19:00 Test Item Value Reference Range Comments COLOR (BEAKER) (test fedt=849) Light Yellow CLARITY (BEAKER) (test rnic=018) Clear SPECIFIC GRAVITY UA (BEAKER) (test 1.015 1.001-1.035 lrez=283) PH UA (BEAKER) (test tccx=717) 6.5 5.0-8.0 PROTEIN UA (BEAKER) (test tsuz=054) Negative Negative GLUCOSE UA (BEAKER) (test frgu=067) Negative Negative KETONES UA (BEAKER) (test dqpq=815) Negative Negative BILIRUBIN UA (BEAKER) (test Negative Negative ihcm=795) BLOOD UA (BEAKER) (test zyph=595) Negative Negative NITRITE UA (BEAKER) (test agmo=467) Negative Negative LEUKOCYTE ESTERASE UA (BEAKER) Negative Negative (test yvnr=770) UROBILINOGEN UA (BEAKER) (test 0.2 mg/dL 0.2-1.0 dxfa=469) RBC UA (BEAKER) (test tkwa=743) 1 /HPF WBC UA (BEAKER) (test bnuf=194) 4 /HPF SOURCE(BEAKER) (test nrfe=9507) Urine, Straight Catheter POCT-GLUCOSE [id number] 16:40:00 Test Item Value Reference Range Comments POC-GLUCOSE METER (BEAKER) 120 mg/dL 70-110 TESTED AT [address] (test nccp=0695) [place] [id number] HEPATITIS PANEL, [id number] 10:25:00 Test Item Value Reference Range Comments HEPATITIS A IGM ANTIBODY (BEAKER) (test Nonreactive Nonreactive nped=905) HEPATITIS B CORE IGM ANTIBODY (BEAKER) (test Nonreactive Nonreactive csjk=152) HEPATITIS C ANTIBODY (BEAKER) (test pkjl=350) Nonreactive Nonreactive HEPATITIS B SURFACE ANTIGEN (2) (BEAKER) (test Nonreactive Nonreactive ioqg=7584) HIV-1 ANTIGEN WITH HIV-1/2 [id number] 10:25:00 Test Item Value Reference Range Comments HIV-1 ANTIGEN WITH HIV 1\\T\\2 ANTIBODY (2) Nonreactive Nonreactive (BEAKER) (test irjf=4321) BASIC METABOLIC [id number] 10:05:00 Test Item Value Reference Range Comments SODIUM (BEAKER) (test 137 meq/L 136-145 xiow=464) POTASSIUM (BEAKER) (test 3.8 meq/L 3.5-5.1 ocpl=297) CHLORIDE (BEAKER) (test 102 meq/L 98-107 qnvq=845) CO2 (BEAKER) (test 27 meq/L 22-29 apct=076) BLOOD UREA NITROGEN 9 mg/dL 7-21 (BEAKER) (test sban=362) CREATININE (BEAKER) (test 0.97 mg/dL 0.57-1.25 urqd=843) GLUCOSE RANDOM (BEAKER) 126 mg/dL 70-105 (test npdj=514) CALCIUM (BEAKER) (test 9.2 mg/dL 8.4-10.2 dczu=677) EGFR (BEAKER) (test 59 mL/min/1.73 sq m ESTIMATED GFR IS NOT tdsv=7742) ACCURATE CREATININE CLEARANCE IN PREDICTING GLOMERULAR FILTRATION RATE. ESTIMATED GFR IS NOT APPLICABLE FOR DIALYSIS PATIENTS. CBC W/PLT COUNT & AUTO [id number] 09:58:00 Test Item Value Reference Range Comments WHITE BLOOD CELL COUNT (BEAKER) (test fdyb=861) 7.2 K/ L 4.0-10.0 RED BLOOD CELL COUNT (BEAKER) (test qlbb=967) 4.13 M/ L 4.00-5.00 HEMOGLOBIN (BEAKER) (test ijjy=214) 12.2 GM/DL 12.0-15.0 HEMATOCRIT (BEAKER) (test aovw=803) 36.1 % 36.0-45.0 MEAN CORPUSCULAR VOLUME (BEAKER) (test bbqn=340) 87.4 fL 82.0-99.0 MEAN CORPUSCULAR HEMOGLOBIN (BEAKER) (test 29.4 pg 27.0-33.0 qgbb=145) MEAN CORPUSCULAR HEMOGLOBIN CONC (BEAKER) (test 33.7 GM/DL 32.0-36.0 vgnc=963) RED CELL DISTRIBUTION WIDTH (BEAKER) (test 14.5 % 10.3-14.2 zjxs=061) PLATELET COUNT (BEAKER) (test ywel=372) 336 K/CU MM 150-430 MEAN PLATELET VOLUME (BEAKER) (test gxsv=926) 6.2 fL 6.5-10.5 NUCLEATED RED BLOOD CELLS (BEAKER) (test 0 /100 WBC 0-0 lldj=352) NEUTROPHILS RELATIVE PERCENT (BEAKER) (test 61 % uytm=599) LYMPHOCYTES RELATIVE PERCENT (BEAKER) (test 24 % wzsq=614) MONOCYTES RELATIVE PERCENT (BEAKER) (test 11 % oamf=858) EOSINOPHILS RELATIVE PERCENT (BEAKER) (test 4 % ejbh=578) BASOPHILS RELATIVE PERCENT (BEAKER) (test 1 % zlqv=279) NEUTROPHILS ABSOLUTE COUNT (BEAKER) (test 4.41 K/ L 1.80-8.00 ykua=701) LYMPHOCYTES ABSOLUTE COUNT (BEAKER) (test 1.69 K/ L 1.48-4.50 igvq=569) MONOCYTES ABSOLUTE COUNT (BEAKER) (test 0.77 K/ L 0.00-1.30 fvkf=335) EOSINOPHILS ABSOLUTE COUNT (BEAKER) (test 0.27 K/ L 0.00-0.50 ksrd=294) BASOPHILS ABSOLUTE COUNT (BEAKER) (test 0.05 K/ L 0.00-0.20 mjat=614) 0.00POCT-GLUCOSE [id number] 08:28:00 Test Item Value Reference Range Comments POC-GLUCOSE METER (BEAKER) 134 mg/dL 70-110 TESTED AT [address] (test mbcp=8586) [place] [id number] POCT-GLUCOSE [id number] 21:33:00 Test Item Value Reference Range Comments POC-GLUCOSE METER (BEAKER) 142 mg/dL 70-110 TESTED AT [address] (test jtpx=8278) [place] [id number] URINALYSIS W/ [id number] 13:59:00 Test Item Value Reference Range Comments COLOR (BEAKER) (test nkpp=488) Yellow CLARITY (BEAKER) (test vghu=683) Clear SPECIFIC GRAVITY UA (BEAKER) (test sytz=310) 1.035 1.001-1.035 PH UA (BEAKER) (test ugxj=329) 5.5 5.0-8.0 PROTEIN UA (BEAKER) (test qtkd=741) 20 mg/dL Negative GLUCOSE UA (BEAKER) (test wffn=687) Negative Negative KETONES UA (BEAKER) (test ivuu=557) Negative Negative BILIRUBIN UA (BEAKER) (test mins=662) Negative Negative BLOOD UA (BEAKER) (test iiny=638) Small Negative NITRITE UA (BEAKER) (test kwpa=206) Negative Negative LEUKOCYTE ESTERASE UA (BEAKER) (test zyes=392) Large Negative UROBILINOGEN UA (BEAKER) (test omlu=624) 0.2 mg/dL 0.2-1.0 RBC UA (BEAKER) (test knzv=564) < /HPF WBC UA (BEAKER) (test xfob=385) 23 /HPF SQUAMOUS EPITHELIAL (BEAKER) (test eoyl=541) < /HPF SOURCE(BEAKER) (test ivme=2477) COMPREHENSIVE METABOLIC [id number] 12:59:00 Test Item Value Reference Range Comments TOTAL PROTEIN (BEAKER) 6.3 gm/dL 6.0-8.3 (test ayrf=770) ALBUMIN (BEAKER) (test 3.3 g/dL 3.5-5.0 opoo=3129) ALKALINE PHOSPHATASE 62 U/L 40-150 (BEAKER) (test ircm=026) BILIRUBIN TOTAL (BEAKER) 0.2 mg/dL 0.2-1.2 (test oriw=486) SODIUM (BEAKER) (test 136 meq/L 136-145 ogob=916) POTASSIUM (BEAKER) (test 3.9 meq/L 3.5-5.1 wzfy=697) CHLORIDE (BEAKER) (test 103 meq/L 98-107 nyru=403) CO2 (BEAKER) (test 24 meq/L 22-29 hvxl=556) BLOOD UREA NITROGEN 14 mg/dL 7-21 (BEAKER) (test jdnk=145) CREATININE (BEAKER) (test 0.81 mg/dL 0.57-1.25 tdgf=324) GLUCOSE RANDOM (BEAKER) 111 mg/dL 70-105 (test tcts=731) CALCIUM (BEAKER) (test 9.2 mg/dL 8.4-10.2 llit=374) AST (SGOT) (BEAKER) (test 19 U/L 5-34 njtl=317) ALT (SGPT) (BEAKER) (test 14 U/L 6-55 utmi=745) EGFR (BEAKER) (test 73 mL/min/1.73 sq m ESTIMATED GFR IS NOT boqe=2697) ACCURATE CREATININE CLEARANCE IN PREDICTING GLOMERULAR FILTRATION RATE. ESTIMATED GFR IS NOT APPLICABLE FOR DIALYSIS PATIENTS. [id number] 12:31:00 Test Item Value Reference Range Comments PROTIME (BEAKER) (test vwge=806) 13.7 seconds 11.7-14.7 INR (BEAKER) (test rozy=697) 1.1 <=5.9 PARTIAL THROMBOPLASTIN TIME (BEAKER) (test 35.2 seconds 22.5-36.0 kfhk=917) RECOMMENDED COUMADIN/WARFARIN INR THERAPY RANGESSTANDARD DOSE: 2.0 - 3.0 Includes: PROPHYLAXIS forvenous thrombosis, systemic embolization; TREATMENT for venous thrombosis and/or pulmonary embolus.HIGH RISK: Target INR is 2.5-3.5 for patients with mechanical heart valves.CBC W/PLT COUNT & AUTO [id number] 12:18:00 Test Item Value Reference Range Comments WHITE BLOOD CELL COUNT (BEAKER) (test zuhl=748) 8.6 K/ L 4.0-10.0 RED BLOOD CELL COUNT (BEAKER) (test npzt=272) 4.17 M/ L 4.00-5.00 HEMOGLOBIN (BEAKER) (test kooy=988) 12.4 GM/DL 12.0-15.0 HEMATOCRIT (BEAKER) (test vroz=939) 36.8 % 36.0-45.0 MEAN CORPUSCULAR VOLUME (BEAKER) (test rmxq=520) 88.3 fL 82.0-99.0 MEAN CORPUSCULAR HEMOGLOBIN (BEAKER) (test 29.8 pg 27.0-33.0 abyj=331) MEAN CORPUSCULAR HEMOGLOBIN CONC (BEAKER) (test 33.7 GM/DL 32.0-36.0 kzwm=830) RED CELL DISTRIBUTION WIDTH (BEAKER) (test 14.4 % 10.3-14.2 uqgh=264) PLATELET COUNT (BEAKER) (test xquj=233) 332 K/CU MM 150-430 MEAN PLATELET VOLUME (BEAKER) (test vaam=925) 6.3 fL 6.5-10.5 NUCLEATED RED BLOOD CELLS (BEAKER) (test 0 /100 WBC 0-0 gvki=434) NEUTROPHILS RELATIVE PERCENT (BEAKER) (test 51 % giyb=334) LYMPHOCYTES RELATIVE PERCENT (BEAKER) (test 33 % nfde=237) MONOCYTES RELATIVE PERCENT (BEAKER) (test 12 % piot=899) EOSINOPHILS RELATIVE PERCENT (BEAKER) (test 3 % kmtz=897) BASOPHILS RELATIVE PERCENT (BEAKER) (test 1 % glmk=514) NEUTROPHILS ABSOLUTE COUNT (BEAKER) (test 4.41 K/ L 1.80-8.00 oksl=876) LYMPHOCYTES ABSOLUTE COUNT (BEAKER) (test 2.80 K/ L 1.48-4.50 ivpg=574) MONOCYTES ABSOLUTE COUNT (BEAKER) (test 1.00 K/ L 0.00-1.30 ylve=269) EOSINOPHILS ABSOLUTE COUNT (BEAKER) (test 0.28 K/ L 0.00-0.50 ifrl=075) BASOPHILS ABSOLUTE COUNT (BEAKER) (test 0.09 K/ L 0.00-0.20 bqsb=554) 0.00BLOOD [id number] 06:00:00 Test Item Value Reference Range Comments CULTURE (BEAKER) (test rsht=6150) No growth in 5 days URINE [id number] 13:38:00 Test Item Value Reference Range Comments CULTURE (BEAKER) (test 50-59,000 col/mL Beronica vxoy=6512) albicans <10,000 col/mL Gram Negative byron<10,000 col/mL skin floraURINALYSIS W/ [id number] 03:34:00 Test Item Value Reference Range Comments COLOR (BEAKER) (test ytso=627) Yellow CLARITY (BEAKER) (test mmvi=506) Hazy SPECIFIC GRAVITY UA (BEAKER) (test bpcf=072) 1.014 1.001-1.035 PH UA (BEAKER) (test ojkr=406) 5.5 5.0-8.0 PROTEIN UA (BEAKER) (test rrtv=229) 70 mg/dL Negative GLUCOSE UA (BEAKER) (test etrr=557) Negative Negative KETONES UA (BEAKER) (test nvxs=255) Negative Negative BILIRUBIN UA (BEAKER) (test putr=270) Negative Negative BLOOD UA (BEAKER) (test zsxt=696) Moderate Negative NITRITE UA (BEAKER) (test kzqi=146) Negative Negative LEUKOCYTE ESTERASE UA (BEAKER) (test atms=611) Large Negative UROBILINOGEN UA (BEAKER) (test unrs=133) 0.2 mg/dL 0.2-1.0 RBC UA (BEAKER) (test fwio=084) 79 /HPF WBC UA (BEAKER) (test gabt=156) > /HPF MUCUS (BEAKER) (test swvf=4386) Rare SQUAMOUS EPITHELIAL (BEAKER) (test ghti=727) 2 /HPF SOURCE(BEAKER) (test vyvk=5811) [id number] 02:16:00 Test Item Value Reference Range Comments LIPASE (BEAKER) (test uwus=470) 8 U/L 8-78 [id number] 02:16:00 Test Item Value Reference Range Comments AMYLASE (BEAKER) (test zyxo=584) 21 U/L 25-125 BASIC METABOLIC [id number] 02:16:00 Test Item Value Reference Range Comments SODIUM (BEAKER) (test 136 meq/L 136-145 scwc=490) POTASSIUM (BEAKER) (test 4.3 meq/L 3.5-5.1 ahsk=887) CHLORIDE (BEAKER) (test 101 meq/L 98-107 zmlg=399) CO2 (BEAKER) (test 26 meq/L 22-29 gnea=460) BLOOD UREA NITROGEN 15 mg/dL 7-21 (BEAKER) (test esut=360) CREATININE (BEAKER) (test 0.85 mg/dL 0.57-1.25 xqxc=156) GLUCOSE RANDOM (BEAKER) 144 mg/dL 70-105 (test inlo=340) CALCIUM (BEAKER) (test 9.9 mg/dL 8.4-10.2 awwd=020) EGFR (BEAKER) (test 69 mL/min/1.73 sq m ESTIMATED GFR IS NOT msqe=1144) ACCURATE CREATININE CLEARANCE IN PREDICTING GLOMERULAR FILTRATION RATE. ESTIMATED GFR IS NOT APPLICABLE FOR DIALYSIS PATIENTS. HEPATIC FUNCTION [id number] 02:16:00 Test Item Value Reference Range Comments TOTAL PROTEIN (BEAKER) (test hjxb=101) 7.3 gm/dL 6.0-8.3 ALBUMIN (BEAKER) (test ijqc=1821) 3.9 g/dL 3.5-5.0 BILIRUBIN TOTAL (BEAKER) (test ybso=899) 0.4 mg/dL 0.2-1.2 BILIRUBIN DIRECT (BEAKER) (test wlrr=954) 0.2 mg/dL 0.1-0.5 ALKALINE PHOSPHATASE (BEAKER) (test chfy=114) 78 U/L 40-150 AST (SGOT) (BEAKER) (test vdif=511) 10 U/L 5-34 ALT (SGPT) (BEAKER) (test nflo=556) 16 U/L 6-55 CBC W/PLT COUNT & AUTO [id number] 02:05:00 Test Item Value Reference Range Comments WHITE BLOOD CELL COUNT (BEAKER) (test dtaq=437) 15.7 K/ L 4.0-10.0 RED BLOOD CELL COUNT (BEAKER) (test ypds=591) 4.51 M/ L 4.00-5.00 HEMOGLOBIN (BEAKER) (test kusc=152) 13.1 GM/DL 12.0-15.0 HEMATOCRIT (BEAKER) (test eqkk=122) 40.9 % 36.0-45.0 MEAN CORPUSCULAR VOLUME (BEAKER) (test rykc=867) 90.9 fL 82.0-99.0 MEAN CORPUSCULAR HEMOGLOBIN (BEAKER) (test 29.1 pg 27.0-33.0 amrh=941) MEAN CORPUSCULAR HEMOGLOBIN CONC (BEAKER) (test 32.1 GM/DL 32.0-36.0 iogj=285) RED CELL DISTRIBUTION WIDTH (BEAKER) (test 14.4 % 10.3-14.2 qniu=411) PLATELET COUNT (BEAKER) (test tkto=631) 342 K/CU MM 150-430 MEAN PLATELET VOLUME (BEAKER) (test rqah=044) 6.3 fL 6.5-10.5 NUCLEATED RED BLOOD CELLS (BEAKER) (test 0 /100 WBC 0-0 emek=329) NEUTROPHILS RELATIVE PERCENT (BEAKER) (test 64 % kkwl=484) LYMPHOCYTES RELATIVE PERCENT (BEAKER) (test 24 % bxyn=734) MONOCYTES RELATIVE PERCENT (BEAKER) (test 9 % vurr=366) EOSINOPHILS RELATIVE PERCENT (BEAKER) (test 3 % zkgi=721) BASOPHILS RELATIVE PERCENT (BEAKER) (test 1 % weew=664) NEUTROPHILS ABSOLUTE COUNT (BEAKER) (test 9.98 K/ L 1.80-8.00 laqf=108) LYMPHOCYTES ABSOLUTE COUNT (BEAKER) (test 3.72 K/ L 1.48-4.50 xhni=189) MONOCYTES ABSOLUTE COUNT (BEAKER) (test 1.35 K/ L 0.00-1.30 nvnn=914) EOSINOPHILS ABSOLUTE COUNT (BEAKER) (test 0.48 K/ L 0.00-0.50 zcnm=659) BASOPHILS ABSOLUTE COUNT (BEAKER) (test 0.17 K/ L 0.00-0.20 bfsd=229) 0.00TISSUE [id number] 16:41:00Surgical Pathology Report Case: [id number] Authorizing Provider: Jag Escalera MD Collected: 01/23/2017 1827 Ordering Location: [facility] Received: 01/24/2017 0855 SERVICES Pathologist: Karma [...] cm. Thetissue is entirely submitted in A1. CG/ewPerformed.[id number] [id number] 08:38: 00 Test Item Value Reference Range Comments CULTURE (BEAKER) (test anwe=8787) No anaerobes isolated SURGICALLY OBTAINED CULTURE + GRAM [id number] 15:59:00 Test Item Value Reference Range Comments CULTURE (BEAKER) (test BERONICA ALBICANS 3+ Beronica albicans onaq=6562) 5-Flurocytosine (test Susceptible 0-4 , qqan=415) Intermediate <0 or >4 , Resistant >16 Amphotericin B (test Susceptible >0-0 , No bavb=875) Interpretations Established <=0 or >0 Caspofungin acetate Susceptible 0-0.25 , Non (test cuvq=654) Fluconazole (test Susceptible 0-2 , Dose gmfa=214) Dependent Susceptible <0 or >2 , Resi Itraconazole (test Susceptible 0-0.125 , Dose gpsu=251) Dependent Susceptible <0 or >.125 Micafungin (test Susceptible 0-0.25 , Non tzpg=095) Posaconazole (test Susceptible >0-0 , No fhzk=625) Interpretations Established <=0 or >0 Voriconazole (test Susceptible 0-0.12 , Dose crxv=303) Dependent Susceptible <0 or >.12 , GRAM STAIN RESULT 4+ WBCs (BEAKER) (test seyh=1489) GRAM STAIN RESULT 1+ yeast (BEAKER) (test czos=068676) POCT-GLUCOSE [id number] 13:12:00 Test Item Value Reference Range Comments POC-GLUCOSE METER (BEAKER) 116 mg/dL 70-110 TESTED AT [address] (test fzqz=8185) [place] [id number] POCT-GLUCOSE [id number] 12:02:00 Test Item Value Reference Range Comments POC-GLUCOSE METER (BEAKER) 142 mg/dL 70-110 TESTED AT [address] (test wmnc=9489) [place] [id number] POCT-GLUCOSE [id number] 08:20:00 Test Item Value Reference Range Comments POC-GLUCOSE METER (BEAKER) 169 mg/dL 70-110 TESTED AT [address] (test xrqo=1717) [place] [address] [id number] 04:58:00 Test Item Value Reference Range Comments PHOSPHORUS (BEAKER) (test ytio=803) 2.0 mg/dL 2.3-4.7 [id number] 04:58:00 Test Item Value Reference Range Comments MAGNESIUM (BEAKER) (test hpva=625) 2.0 mg/dL 1.6-2.6 BASIC METABOLIC [id number] 04:58:00 Test Item Value Reference Range Comments SODIUM (BEAKER) (test 140 meq/L 136-145 bweu=036) POTASSIUM (BEAKER) (test 4.0 meq/L 3.5-5.1 ghps=754) CHLORIDE (BEAKER) (test 109 meq/L 98-107 rimr=472) CO2 (BEAKER) (test 21 meq/L 22-29 wxfc=437) BLOOD UREA NITROGEN 14 mg/dL 7-21 (BEAKER) (test zeqb=033) CREATININE (BEAKER) (test 0.82 mg/dL 0.57-1.25 dfun=562) GLUCOSE RANDOM (BEAKER) 135 mg/dL 70-105 (test hexm=633) CALCIUM (BEAKER) (test 8.8 mg/dL 8.4-10.2 wjqs=615) EGFR (BEAKER) (test 72 mL/min/1.73 sq m ESTIMATED GFR IS NOT zhgk=5483) ACCURATE CREATININE CLEARANCE IN PREDICTING GLOMERULAR FILTRATION RATE. ESTIMATED GFR IS NOT APPLICABLE FOR DIALYSIS PATIENTS. CBC W/PLT COUNT & AUTO [id number] 04:14:00 Test Item Value Reference Range Comments WHITE BLOOD CELL COUNT (BEAKER) (test wtcz=310) 12.1 K/ L 4.0-10.0 RED BLOOD CELL COUNT (BEAKER) (test dygm=228) 4.18 M/ L 4.00-5.00 HEMOGLOBIN (BEAKER) (test lrme=114) 12.2 GM/DL 12.0-15.0 HEMATOCRIT (BEAKER) (test hgxy=366) 37.8 % 36.0-45.0 MEAN CORPUSCULAR VOLUME (BEAKER) (test jgbs=742) 90.4 fL 82.0-99.0 MEAN CORPUSCULAR HEMOGLOBIN (BEAKER) (test 29.3 pg 27.0-33.0 nxag=064) MEAN CORPUSCULAR HEMOGLOBIN CONC (BEAKER) (test 32.4 GM/DL 32.0-36.0 hunk=265) RED CELL DISTRIBUTION WIDTH (BEAKER) (test 14.7 % 10.3-14.2 nwhy=986) PLATELET COUNT (BEAKER) (test ycfx=259) 211 K/CU MM 150-430 MEAN PLATELET VOLUME (BEAKER) (test efje=904) 6.8 fL 6.5-10.5 NUCLEATED RED BLOOD CELLS (BEAKER) (test 0 /100 WBC 0-0 txpa=004) NEUTROPHILS RELATIVE PERCENT (BEAKER) (test 63 % wxbq=344) LYMPHOCYTES RELATIVE PERCENT (BEAKER) (test 26 % disb=885) MONOCYTES RELATIVE PERCENT (BEAKER) (test 9 % goco=280) EOSINOPHILS RELATIVE PERCENT (BEAKER) (test 2 % lpbt=048) BASOPHILS RELATIVE PERCENT (BEAKER) (test 1 % icgl=906) NEUTROPHILS ABSOLUTE COUNT (BEAKER) (test 7.57 K/ L 1.80-8.00 dtfs=955) LYMPHOCYTES ABSOLUTE COUNT (BEAKER) (test 3.12 K/ L 1.48-4.50 nzvq=604) MONOCYTES ABSOLUTE COUNT (BEAKER) (test 1.09 K/ L 0.00-1.30 cwhg=811) EOSINOPHILS ABSOLUTE COUNT (BEAKER) (test 0.24 K/ L 0.00-0.50 pjjm=491) BASOPHILS ABSOLUTE COUNT (BEAKER) (test 0.08 K/ L 0.00-0.20 ghkl=035) 0.00POCT-GLUCOSE [id number] 21:38:00 Test Item Value Reference Range Comments POC-GLUCOSE METER (BEAKER) 137 mg/dL 70-110 TESTED AT [address] (test mxbo=3242) [place] [address] POCT-GLUCOSE [id number] 11:40:00 Test Item Value Reference Range Comments POC-GLUCOSE METER (BEAKER) 187 mg/dL 70-110 TESTED AT [address] (test tuep=8232) [place] [address] POCT-GLUCOSE [id number] 06:44:00 Test Item Value Reference Range Comments POC-GLUCOSE METER (BEAKER) 160 mg/dL 70-110 TESTED AT [address] (test pevh=6695) [place] [address] BLOOD GAS, [id number] 04:11:00 Test Item Value Reference Range Comments PH ARTERIAL (BEAKER) (test lfqu=356) 7.36 7.35-7.45 PCO2 ARTERIAL (BEAKER) (test qbdf=755) 41 mmHg 35-45 PO2 ARTERIAL (BEAKER) (test knmk=241) 76 mmHg 80-90 O2 SATURATION ARTERIAL (BEAKER) (test aoeh=852) 94.7 % 96.0-97.0 HCO3 ARTERIAL (BEAKER) (test iqrf=878) 23 mmol/L 21-29 BASE EXCESS ARTERIAL (BEAKER) (test slho=125) -2.7 mmol/L -2.0-3.0 PATIENT TEMPERATURE (BEAKER) (test iysv=1627) 37.0 C FIO2 (BEAKER) (test xhsk=7586) 40.0 % [id number] 04:09:00 Test Item Value Reference Range Comments PHOSPHORUS (BEAKER) (test jxax=914) 2.9 mg/dL 2.3-4.7 [id number] 04:09:00 Test Item Value Reference Range Comments MAGNESIUM (BEAKER) (test xrvv=972) 2.1 mg/dL 1.6-2.6 BASIC METABOLIC [id number] 04:09:00 Test Item Value Reference Range Comments SODIUM (BEAKER) (test 139 meq/L 136-145 azxp=703) POTASSIUM (BEAKER) (test 4.2 meq/L 3.5-5.1 bgcv=358) CHLORIDE (BEAKER) (test 108 meq/L 98-107 ztgx=475) CO2 (BEAKER) (test 20 meq/L 22-29 ikiy=760) BLOOD UREA NITROGEN 16 mg/dL 7-21 (BEAKER) (test rrus=809) CREATININE (BEAKER) (test 0.80 mg/dL 0.57-1.25 azyh=355) GLUCOSE RANDOM (BEAKER) 172 mg/dL 70-105 (test qhki=195) CALCIUM (BEAKER) (test 8.2 mg/dL 8.4-10.2 fykj=818) EGFR (BEAKER) (test 74 mL/min/1.73 sq m ESTIMATED GFR IS NOT etyr=7207) ACCURATE CREATININE CLEARANCE IN PREDICTING GLOMERULAR FILTRATION RATE. ESTIMATED GFR IS NOT APPLICABLE FOR DIALYSIS PATIENTS. CBC W/PLT COUNT & AUTO [id number] 03:57:00 Test Item Value Reference Range Comments WHITE BLOOD CELL COUNT (BEAKER) (test ctfo=030) 14.9 K/ L 4.0-10.0 RED BLOOD CELL COUNT (BEAKER) (test kxka=166) 4.17 M/ L 4.00-5.00 HEMOGLOBIN (BEAKER) (test bvhb=496) 12.7 GM/DL 12.0-15.0 HEMATOCRIT (BEAKER) (test gpkb=273) 37.4 % 36.0-45.0 MEAN CORPUSCULAR VOLUME (BEAKER) (test luav=890) 89.6 fL 82.0-99.0 MEAN CORPUSCULAR HEMOGLOBIN (BEAKER) (test 30.5 pg 27.0-33.0 aubz=238) MEAN CORPUSCULAR HEMOGLOBIN CONC (BEAKER) (test 34.0 GM/DL 32.0-36.0 bnqw=396) RED CELL DISTRIBUTION WIDTH (BEAKER) (test 12.8 % 10.3-14.2 touk=249) PLATELET COUNT (BEAKER) (test oybw=737) 217 K/CU MM 150-430 MEAN PLATELET VOLUME (BEAKER) (test molq=335) 6.4 fL 6.5-10.5 NUCLEATED RED BLOOD CELLS (BEAKER) (test 0 /100 WBC 0-0 llql=198) NEUTROPHILS RELATIVE PERCENT (BEAKER) (test 74 % qshz=508) LYMPHOCYTES RELATIVE PERCENT (BEAKER) (test 17 % vxvz=373) MONOCYTES RELATIVE PERCENT (BEAKER) (test 8 % glrx=872) EOSINOPHILS RELATIVE PERCENT (BEAKER) (test 0 % wwmh=408) BASOPHILS RELATIVE PERCENT (BEAKER) (test 0 % zxnv=866) NEUTROPHILS ABSOLUTE COUNT (BEAKER) (test 11.10 K/ L 1.80-8.00 gzer=113) LYMPHOCYTES ABSOLUTE COUNT (BEAKER) (test 2.60 K/ L 1.48-4.50 uyfp=871) MONOCYTES ABSOLUTE COUNT (BEAKER) (test 1.13 K/ L 0.00-1.30 tsrb=448) EOSINOPHILS ABSOLUTE COUNT (BEAKER) (test 0.03 K/ L 0.00-0.50 zhdb=780) BASOPHILS ABSOLUTE COUNT (BEAKER) (test 0.07 K/ L 0.00-0.20 annb=829) 0.00POCT-GLUCOSE [id number] 00:34:00 Test Item Value Reference Range Comments POC-GLUCOSE METER (BEAKER) 243 mg/dL 70-110 TESTED AT [facility] [address] [facility] (test hreb=6165) [facility] [address] [id number] 21:39:00 Test Item Value Reference Range Comments PHOSPHORUS (BEAKER) (test nkin=744) 3.7 mg/dL 2.3-4.7 [id number] 21:39:00 Test Item Value Reference Range Comments MAGNESIUM (BEAKER) (test exsj=090) 1.6 mg/dL 1.6-2.6 COMPREHENSIVE METABOLIC [id number] 21:39:00 Test Item Value Reference Range Comments TOTAL PROTEIN (BEAKER) 6.6 gm/dL 6.0-8.3 (test hlps=226) ALBUMIN (BEAKER) (test 4.1 g/dL 3.5-5.0 bhon=1401) ALKALINE PHOSPHATASE 63 U/L 40-150 (BEAKER) (test clcg=659) BILIRUBIN TOTAL (BEAKER) 0.5 mg/dL 0.2-1.2 (test kjoj=248) SODIUM (BEAKER) (test 140 meq/L 136-145 lcda=089) POTASSIUM (BEAKER) (test 3.8 meq/L 3.5-5.1 nfid=976) CHLORIDE (BEAKER) (test 108 meq/L 98-107 tbbs=404) CO2 (BEAKER) (test 20 meq/L 22-29 kxfo=923) BLOOD UREA NITROGEN 20 mg/dL 7-21 (BEAKER) (test hqxn=834) CREATININE (BEAKER) (test 0.92 mg/dL 0.57-1.25 umip=918) GLUCOSE RANDOM (BEAKER) 191 mg/dL 70-105 (test uljv=485) CALCIUM (BEAKER) (test 8.6 mg/dL 8.4-10.2 sjcs=379) AST (SGOT) (BEAKER) (test 16 U/L 5-34 uvxu=923) ALT (SGPT) (BEAKER) (test 20 U/L 6-55 yuec=476) EGFR (BEAKER) (test 63 mL/min/1.73 sq m ESTIMATED GFR IS NOT jwyw=4165) ACCURATE CREATININE CLEARANCE IN PREDICTING GLOMERULAR FILTRATION RATE. ESTIMATED GFR IS NOT APPLICABLE FOR DIALYSIS PATIENTS. CBC W/PLT COUNT & AUTO [id number] 21:24:00 Test Item Value Reference Range Comments WHITE BLOOD CELL COUNT (BEAKER) (test grhx=070) 17.1 K/ L 4.0-10.0 RED BLOOD CELL COUNT (BEAKER) (test pyso=766) 4.55 M/ L 4.00-5.00 HEMOGLOBIN (BEAKER) (test xcli=532) 13.4 GM/DL 12.0-15.0 HEMATOCRIT (BEAKER) (test yndq=996) 40.7 % 36.0-45.0 MEAN CORPUSCULAR VOLUME (BEAKER) (test okbc=260) 89.4 fL 82.0-99.0 MEAN CORPUSCULAR HEMOGLOBIN (BEAKER) (test 29.4 pg 27.0-33.0 qoos=281) MEAN CORPUSCULAR HEMOGLOBIN CONC (BEAKER) (test 32.9 GM/DL 32.0-36.0 fdsh=611) RED CELL DISTRIBUTION WIDTH (BEAKER) (test 14.7 % 10.3-14.2 ffju=652) PLATELET COUNT (BEAKER) (test ufud=181) 228 K/CU MM 150-430 MEAN PLATELET VOLUME (BEAKER) (test vvoh=443) 6.4 fL 6.5-10.5 NUCLEATED RED BLOOD CELLS (BEAKER) (test 0 /100 WBC 0-0 lrxm=394) NEUTROPHILS RELATIVE PERCENT (BEAKER) (test 86 % jctf=590) LYMPHOCYTES RELATIVE PERCENT (BEAKER) (test 10 % cnax=790) MONOCYTES RELATIVE PERCENT (BEAKER) (test 4 % weft=260) EOSINOPHILS RELATIVE PERCENT (BEAKER) (test 0 % qcgi=075) BASOPHILS RELATIVE PERCENT (BEAKER) (test 0 % rrbx=907) NEUTROPHILS ABSOLUTE COUNT (BEAKER) (test 14.60 K/ L 1.80-8.00 nnpj=705) LYMPHOCYTES ABSOLUTE COUNT (BEAKER) (test 1.68 K/ L 1.48-4.50 nhhq=198) MONOCYTES ABSOLUTE COUNT (BEAKER) (test 0.70 K/ L 0.00-1.30 ldkq=124) EOSINOPHILS ABSOLUTE COUNT (BEAKER) (test 0.04 K/ L 0.00-0.50 wduz=915) BASOPHILS ABSOLUTE COUNT (BEAKER) (test 0.06 K/ L 0.00-0.20 cgps=125) 0.00BLOOD GAS, [id number] 21:20:00 Test Item Value Reference Range Comments PH ARTERIAL (BEAKER) (test whhj=995) 7.28 7.35-7.45 PCO2 ARTERIAL (BEAKER) (test kqif=275) 51 mmHg 35-45 PO2 ARTERIAL (BEAKER) (test ipew=702) 150 mmHg 80-90 O2 SATURATION ARTERIAL (BEAKER) (test rnkt=869) 98.7 % 96.0-97.0 HCO3 ARTERIAL (BEAKER) (test cqxs=388) 24 mmol/L 21-29 BASE EXCESS ARTERIAL (BEAKER) (test vgsg=342) -3.7 mmol/L -2.0-3.0 PATIENT TEMPERATURE (BEAKER) (test aryn=4145) 36.9 C FIO2 (BEAKER) (test eexv=7693) 100.0 % BLOOD GAS, [id number] 18:58:00 Test Item Value Reference Range Comments PH ARTERIAL (BEAKER) (test rnxw=461) 7.37 7.35-7.45 PCO2 ARTERIAL (BEAKER) (test noej=847) 39 mmHg 35-45 PO2 ARTERIAL (BEAKER) (test owcm=690) 116 mmHg 80-90 O2 SATURATION ARTERIAL (BEAKER) (test crjb=793) 98.1 % 96.0-97.0 HCO3 ARTERIAL (BEAKER) (test lxjq=162) 22 mmol/L 21-29 BASE EXCESS ARTERIAL (BEAKER) (test ltsz=763) -3.2 mmol/L -2.0-3.0 PATIENT TEMPERATURE (BEAKER) (test juew=6061) 37.0 C GLUCOSE-STAT [id number] 18:58:00 Test Item Value Reference Range Comments GLUCOSE RANDOM (BEAKER) (test vqmz=965) 179 mg/dL 70-110 CALCIUM, [id number] 18:58:00 Test Item Value Reference Range Comments CALCIUM IONIZED (BEAKER) (test josy=350) 0.96 mmol/L 1.12-1.27 PH, BLOOD (BEAKER) (test pkcm=7699) 7.37 SODIUM NA-STAT [id number] 18:57:00 Test Item Value Reference Range Comments SODIUM (BEAKER) (test zung=505) 138 meq/L 135-148 POTASSIUM-STAT [id number] 18:57:00 Test Item Value Reference Range Comments POTASSIUM (BEAKER) (test hbtd=113) 3.8 meq/L 3.6-5.5 HGB/HCT (H&H) - STAT [id number] 18:57:00 Test Item Value Reference Range Comments HEMOGLOBIN (BEAKER) (test mzqm=466) 12.8 g/dL 12.0-15.0 HEMATOCRIT (BEAKER) (test eeyi=815) 38.0 % 36.0-45.0 SODIUM NA-STAT [id number] 17:20:00 Test Item Value Reference Range Comments SODIUM (BEAKER) (test fefx=645) 138 meq/L 135-148 POTASSIUM-STAT [id number] 17:20:00 Test Item Value Reference Range Comments POTASSIUM (BEAKER) (test ghny=918) 3.8 meq/L 3.6-5.5 HGB/HCT (H&H) - STAT [id number] 17:20:00 Test Item Value Reference Range Comments HEMOGLOBIN (BEAKER) (test iubp=418) 12.8 g/dL 12.0-15.0 HEMATOCRIT (BEAKER) (test tuyl=434) 38.0 % 36.0-45.0 BLOOD GAS, [id number] 17:20:00 Test Item Value Reference Range Comments PH ARTERIAL (BEAKER) (test qtfd=805) 7.38 7.35-7.45 PCO2 ARTERIAL (BEAKER) (test lfnz=714) 40 mmHg 35-45 PO2 ARTERIAL (BEAKER) (test ijin=270) 103 mmHg 80-90 O2 SATURATION ARTERIAL (BEAKER) (test nvaq=584) 97.6 % 96.0-97.0 HCO3 ARTERIAL (BEAKER) (test vrlm=825) 23 mmol/L 21-29 BASE EXCESS ARTERIAL (BEAKER) (test xfyy=308) -1.9 mmol/L -2.0-3.0 PATIENT TEMPERATURE (BEAKER) (test fjvi=4246) 37.0 C FIO2 (BEAKER) (test dctj=0567) 100.0 % GLUCOSE-STAT [id number] 17:20:00 Test Item Value Reference Range Comments GLUCOSE RANDOM (BEAKER) (test pfls=880) 167 mg/dL 70-110 CALCIUM, [id number] 17:20:00 Test Item Value Reference Range Comments CALCIUM IONIZED (BEAKER) (test pczj=578) 1.09 mmol/L 1.12-1.27 PH, BLOOD (BEAKER) (test mrqn=5073) 7.38 BLOOD GAS, [id number] 16:34:00 Test Item Value Reference Range Comments PH ARTERIAL (BEAKER) (test qsyy=535) 7.31 7.35-7.45 PCO2 ARTERIAL (BEAKER) (test ayrb=055) 49 mmHg 35-45 PO2 ARTERIAL (BEAKER) (test pvrm=001) 141 mmHg 80-90 O2 SATURATION ARTERIAL (BEAKER) (test blno=117) 98.6 % 96.0-97.0 HCO3 ARTERIAL (BEAKER) (test hqzu=978) 24 mmol/L 21-29 BASE EXCESS ARTERIAL (BEAKER) (test rkae=970) -2.3 mmol/L -2.0-3.0 PATIENT TEMPERATURE (BEAKER) (test sbem=4818) 37.0 C FIO2 (BEAKER) (test gqod=1602) 100.0 % GLUCOSE-STAT [id number] 16:34:00 Test Item Value Reference Range Comments GLUCOSE RANDOM (BEAKER) (test rkzh=216) 151 mg/dL 70-110 CALCIUM, [id number] 16:34:00 Test Item Value Reference Range Comments CALCIUM IONIZED (BEAKER) (test eist=740) 1.11 mmol/L 1.12-1.27 PH, BLOOD (BEAKER) (test rngn=2185) 7.31 SODIUM NA-STAT [id number] 16:33:00 Test Item Value Reference Range Comments SODIUM (BEAKER) (test qkto=984) 139 meq/L 135-148 POTASSIUM-STAT [id number] 16:33:00 Test Item Value Reference Range Comments POTASSIUM (BEAKER) (test xlef=451) 3.6 meq/L 3.6-5.5 HGB/HCT (H&H) - STAT [id number] 16:33:00 Test Item Value Reference Range Comments HEMOGLOBIN (BEAKER) (test mubo=473) 13.0 g/dL 12.0-15.0 HEMATOCRIT (BEAKER) (test epgt=733) 38.0 % 36.0-45.0 BLOOD GAS, [id number] 15:56:00 Test Item Value Reference Range Comments PH ARTERIAL (BEAKER) (test alng=209) 7.34 7.35-7.45 PCO2 ARTERIAL (BEAKER) (test gxno=498) 46 mmHg 35-45 PO2 ARTERIAL (BEAKER) (test zanh=647) 87 mmHg 80-90 O2 SATURATION ARTERIAL (BEAKER) (test wpse=796) 96.4 % 96.0-97.0 HCO3 ARTERIAL (BEAKER) (test qqwn=578) 24 mmol/L 21-29 BASE EXCESS ARTERIAL (BEAKER) (test ayji=096) -2.0 mmol/L -2.0-3.0 PATIENT TEMPERATURE (BEAKER) (test mofi=3539) 36.1 C FIO2 (BEAKER) (test lzai=9853) 100.0 % GLUCOSE-STAT [id number] 15:56:00 Test Item Value Reference Range Comments GLUCOSE RANDOM (BEAKER) (test yfkp=127) 142 mg/dL 70-110 CALCIUM, [id number] 15:56:00 Test Item Value Reference Range Comments CALCIUM IONIZED (BEAKER) (test njcw=788) 1.03 mmol/L 1.12-1.27 PH, BLOOD (BEAKER) (test iudm=9726) 7.32 SODIUM NA-STAT [id number] 15:55:00 Test Item Value Reference Range Comments SODIUM (BEAKER) (test apek=712) 138 meq/L 135-148 POTASSIUM-STAT [id number] 15:55:00 Test Item Value Reference Range Comments POTASSIUM (BEAKER) (test kcfk=394) 3.8 meq/L 3.6-5.5 HGB/HCT (H&H) - STAT [id number] 15:55:00 Test Item Value Reference Range Comments HEMOGLOBIN (BEAKER) (test oysv=144) 13.5 g/dL 12.0-15.0 HEMATOCRIT (BEAKER) (test fzod=464) 40.0 % 36.0-45.0 URINALYSIS W/ [id number] 13:28:00 Test Item Value Reference Range Comments COLOR (BEAKER) (test adia=594) Yellow CLARITY (BEAKER) (test cjoy=398) Hazy SPECIFIC GRAVITY UA (BEAKER) (test 1.013 1.001-1.035 cnxr=391) PH UA (BEAKER) (test pcrw=317) 5.5 5.0-8.0 PROTEIN UA (BEAKER) (test ckio=997) 10 mg/dL Negative GLUCOSE UA (BEAKER) (test lpfn=631) Negative Negative KETONES UA (BEAKER) (test drzl=359) Negative Negative BILIRUBIN UA (BEAKER) (test gynh=683) Negative Negative BLOOD UA (BEAKER) (test cgva=597) Trace Negative NITRITE UA (BEAKER) (test vabv=449) Negative Negative LEUKOCYTE ESTERASE UA (BEAKER) (test Large Negative vxow=616) UROBILINOGEN UA (BEAKER) (test splz=695) 0.2 mg/dL 0.2-1.0 RBC UA (BEAKER) (test djmg=960) 3 /HPF WBC UA (BEAKER) (test sqpp=304) 128 /HPF BACTERIA (BEAKER) (test orxr=160) Occasional MUCUS (BEAKER) (test fwhj=8412) Rare SQUAMOUS EPITHELIAL (BEAKER) (test < /HPF ttmc=763) SOURCE(BEAKER) (test tyfi=0928) Urine, Clean Catch POCT-GLUCOSE [id number] 12:50:00 Test Item Value Reference Range Comments POC-GLUCOSE METER (BEAKER) 146 mg/dL 70-110 TESTED AT [facility] [address] [place] [address] (test qojx=7882) [facility] [address] URINE [id number] 09:26:00 Test Item Value Reference Range Comments CULTURE (BEAKER) (test 50-59,000 col/mL Myroides szca=2903) speciesMost closely resembles <10,000 col/mL Beta hemolytic strepURINALYSIS W/ [id number] 11:15: 00 Test Item Value Reference Range Comments COLOR (BEAKER) (test yrwx=959) Yellow CLARITY (BEAKER) (test qlux=919) Hazy SPECIFIC GRAVITY UA (BEAKER) (test npnk=349) 1.013 1.001-1.035 PH UA (BEAKER) (test mexy=974) 6.0 5.0-8.0 PROTEIN UA (BEAKER) (test ipcn=970) 10 mg/dL Negative GLUCOSE UA (BEAKER) (test nawr=443) Negative Negative KETONES UA (BEAKER) (test pgzf=337) Negative Negative BILIRUBIN UA (BEAKER) (test ylnm=090) Negative Negative BLOOD UA (BEAKER) (test egyp=237) Small Negative NITRITE UA (BEAKER) (test xkez=405) Negative Negative LEUKOCYTE ESTERASE UA (BEAKER) (test sovh=606) Large Negative UROBILINOGEN UA (BEAKER) (test jfnv=809) 0.2 mg/dL 0.2-1.0 RBC UA (BEAKER) (test upzu=484) 3 /HPF WBC UA (BEAKER) (test pfgn=296) > /HPF BACTERIA (BEAKER) (test jhkv=965) Occasional SQUAMOUS EPITHELIAL (BEAKER) (test oswk=617) < /HPF YEAST (BEAKER) (test yrtc=6227) Occasional SOURCE(BEAKER) (test wkjj=2178) BASIC METABOLIC [id number] 11:08:00 Test Item Value Reference Range Comments SODIUM (BEAKER) (test 140 meq/L 136-145 srci=074) POTASSIUM (BEAKER) (test 4.3 meq/L 3.5-5.1 Specimen slightly pnxn=982) hemolyzed CHLORIDE (BEAKER) (test 104 meq/L 98-107 vmwl=118) CO2 (BEAKER) (test 26 meq/L 22-29 fcdc=633) BLOOD UREA NITROGEN 19 mg/dL 7-21 (BEAKER) (test bwjn=176) CREATININE (BEAKER) (test 0.85 mg/dL 0.57-1.25 Specimen slightly dzws=264) hemolyzed GLUCOSE RANDOM (BEAKER) 141 mg/dL 70-105 (test jamd=765) CALCIUM (BEAKER) (test 9.5 mg/dL 8.4-10.2 aucl=858) EGFR (BEAKER) (test 69 mL/min/1.73 sq m ESTIMATED GFR IS NOT nezz=0821) ACCURATE CREATININE CLEARANCE IN PREDICTING GLOMERULAR FILTRATION RATE. ESTIMATED GFR IS NOT APPLICABLE FOR DIALYSIS PATIENTS. PROTHROMBIN TIME/[id number] 10:58:00 Test Item Value Reference Range Comments PROTIME (BEAKER) (test vxwy=095) 12.8 seconds 11.7-14.7 INR (BEAKER) (test eney=293) 1.0 <=5.9 RECOMMENDED COUMADIN/WARFARIN INR THERAPY RANGESSTANDARD DOSE: 2.0 - 3.0 Includes: PROPHYLAXIS forvenous thrombosis, systemic embolization; TREATMENT for venous thrombosis and/or pulmonary embolus.HIGH RISK: Target INR is 2.5-3.5 for patients with mechanical heart valves.[id number] 10:58:00 Test Item Value Reference Range Comments PARTIAL THROMBOPLASTIN TIME (BEAKER) (test 35.7 seconds 22.5-36.0 xyze=048) CBC W/PLT COUNT & AUTO [id number] 10:48:00 Test Item Value Reference Range Comments WHITE BLOOD CELL COUNT (BEAKER) (test npfv=447) 10.6 K/ L 4.0-10.0 RED BLOOD CELL COUNT (BEAKER) (test fwww=609) 5.12 M/ L 4.00-5.00 HEMOGLOBIN (BEAKER) (test wqmn=010) 14.8 GM/DL 12.0-15.0 HEMATOCRIT (BEAKER) (test pkks=483) 45.9 % 36.0-45.0 MEAN CORPUSCULAR VOLUME (BEAKER) (test vtep=104) 89.5 fL 82.0-99.0 MEAN CORPUSCULAR HEMOGLOBIN (BEAKER) (test 29.0 pg 27.0-33.0 pzvv=512) MEAN CORPUSCULAR HEMOGLOBIN CONC (BEAKER) (test 32.4 GM/DL 32.0-36.0 rozq=639) RED CELL DISTRIBUTION WIDTH (BEAKER) (test 14.8 % 10.3-14.2 ofta=823) PLATELET COUNT (BEAKER) (test rugr=254) 255 K/CU MM 150-430 MEAN PLATELET VOLUME (BEAKER) (test dncs=927) 6.7 fL 6.5-10.5 NUCLEATED RED BLOOD CELLS (BEAKER) (test 0 /100 WBC 0-0 tapy=822) NEUTROPHILS RELATIVE PERCENT (BEAKER) (test 59 % sfin=038) LYMPHOCYTES RELATIVE PERCENT (BEAKER) (test 31 % avtq=650) MONOCYTES RELATIVE PERCENT (BEAKER) (test 6 % jvru=488) EOSINOPHILS RELATIVE PERCENT (BEAKER) (test 2 % sqtd=274) BASOPHILS RELATIVE PERCENT (BEAKER) (test 1 % vdzk=245) NEUTROPHILS ABSOLUTE COUNT (BEAKER) (test 6.30 K/ L 1.80-8.00 eerq=865) LYMPHOCYTES ABSOLUTE COUNT (BEAKER) (test 3.34 K/ L 1.48-4.50 thit=023) MONOCYTES ABSOLUTE COUNT (BEAKER) (test 0.68 K/ L 0.00-1.30 vrzu=481) EOSINOPHILS ABSOLUTE COUNT (BEAKER) (test 0.20 K/ L 0.00-0.50 lnbv=427) BASOPHILS ABSOLUTE COUNT (BEAKER) (test 0.12 K/ L 0.00-0.20 vdzg=717) 0.00
--- OUTSIDE RECORDS SUMMARY | 2018-08-24 22:02 | XMS REPORT | Continuity of Care Document ---
:1960 Author Organization [facility] Address [address] [place] [address] Phone Unavailable Care Team Providers Name Role Phone GREGG PEREZ MD Primary Care Physician Insurance Providers Guarantor Ankita Todd Address [address] [place] [address] Email [email or web address] Payer [facility] Policy Number [id number] Subscriber's Name Ankita Todd Relationship Self / Same As Patient Group Number [id number] Group Name NA Advance Directives No advance directive information available. Problems Medical Problem Onset Date Status Right shoulder pain Unknown Upper extremity weakness Unknown Surgical Problem Onset Date Status Status post right shoulder hemiarthroplasty Unknown Medications No medication information available. Social History No social history information available. Hospital Discharge Instructions Current inpatient/outpatient. Discharge instructions are currently unavailable. Plan of Care Current inpatient/outpatient. The plan of care is currently unavailable. Functional Status No functional status information available. Allergies, Adverse Reactions, Alerts No allergy information available. Immunizations No immunization information available. Vital Signs No vital sign information available. Results No relevant diagnostic test, laboratory data and/or discharge summary information available. Procedures Procedure Status Date Provider(s) PT EVAL MOD COMPLEX 30 MIN Completed 04/09/18 SELF CARE MNGMENT TRAINING Completed 04/09/18 THERAPEUTIC EXERCISES Completed 04/09/18 MANUAL THERAPY 1/> REGIONS Completed 04/09/18 X-RAY EXAM L-S SPINE 2/3 VWS Completed 05/01/18 MRI LUMBAR SPINE W/O DYE Completed 05/08/18 Magnetic resonance imaging of lumbar spine without Completed 05/08/18 GREGG PEREZ MD contrast Encounters Encounter Location Arrival/Admit Date Discharge/Depart Date Attending Provider Registered [place] 05/08/18 12:41pm GREGG PEREZ [facility] Registered [place] 05/01/18 11:23am GREGG PEREZ [facility] Discharged [place] 04/20/18 9:26am 05/13/18 11:59pm GREGG PEREZ [facility] Discharged [place] 04/09/18 10:48am 04/13/18 11:59pm GREGG PEREZ [facility]
--- OUTSIDE RECORDS SUMMARY | 2018-08-24 22:02 | XMS REPORT | Encounter Summary ---
:1960 Author Care Team Providers Name Role Phone Dylan De Luna MD Primary Care Provider [phone] Reason for Visit Follow Up Visit Instructions 1. Type II diabetes mellitus uncontrolled type 2 diabetes: care instructions glipizide 5 mg tablet 2. Essential hypertension 3. Chronic depression 4. Cigarette smoker Nicoderm CQ 7 mg/24 hr daily transdermal patch 5. Dysuria painful urination (dysuria): care instructions urinalysis complete, reflex culture Discussion Note: None recorded. Plan of Care Reminders Provider Appointments Return to on or around Dylan De Luna MD Office 09/06/2018 Lab Urinalysis 08/06/2018 Josiah Watson, Reflex [facility] (Lab) Referral None recorded. Procedures None recorded. Surgeries None recorded. Imaging None recorded. Medications Name Start Date Bystolic 5 mg tablet TAKE ONE (1) TABLET(S) BY MOUTH ONCE A DAY. carisoprodol 350 mg tablet Take 1 tablet 3 times a day by oral route. Ciprodex 0.3 %-0.1 % ear drops,suspension INSTILL 5 DROPS INTO AFFECTED EAR(S) BY OTIC ROUTE 2 TIMES PER DAY FOR 7 DAYS diazepam 5 mg tablet TAKE ONE (1) TABLET(S) BY MOUTH TWICE A DAY. duloxetine 60 mg capsule,delayed release epinastine 0.05 % eye drops escitalopram 20 mg tablet TAKE ONE (1) TABLET(S) BY MOUTH ONCE A DAY. glipizide 5 mg tablet Take 1 tablet twice a day by oral route. take twice daily for diabetes Lotemax 0.5 % eye gel drops metformin 500 mg tablet TAKE ONE (1) TABLET(S) BY MOUTH TWICE A DAY. montelukast 10 mg tablet Nicoderm CQ 7 mg/24 hr daily transdermal patch Apply 1 patch every day by transdermal route. use as directed to help smoking cessation Pazeo 0.7 % eye drops Medications Administered None recorded. Vitals Height Weight BMI Blood Pressure 67 in 279 lbs 16 oz 43.9 kg/m2 166/104 mm[Hg] Lab Results Date Name Specimen Result Interpretation Description Value Range Status Address 07/20/2018 Tympanogram Right Type A In-House Normal Results: For Internal Use Only Left Type A In-House Normal Results: For Internal Use Only Allergies Code Code System Name Reaction Severity Status Onset 20331218 RxNorm Benadryl Active 28230314 RxNorm Demerol Active 20270816 RxNorm Diflucan Hives Active 70 RxNorm Morphine Active Problems Name Status Onset Date Source Essential Hypertension Active 09/12/2016 Hyperlipidemia Active 09/29/2016 Chronic Anxiety Active 09/29/2016 Hypertriglyceridemia Active 09/30/2016 Chronic Kidney Disease Active 02/09/2017 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 Candidiasis of Skin Active 03/21/2017 Urinary Tract Infectious Disease Active 05/15/2017 Lethargy Active 09/11/2017 Diverticulitis Active 10/10/2017 Type 2 Diabetes Mellitus without Complication Active 11/09/2017 Edema Active 11/09/2017 Dizziness of Unknown Cause Active 12/27/2017 Tremor Active 12/27/2017 History of Sepsis Active 12/27/2017 Chronic Depression Active 02/01/2018 Strain of Muscle of Right Shoulder Active 03/26/2018 Chronic Low Back Pain Active 05/01/2018 Strain of Knee Active 05/15/2018 Puncture Wound of Foot Active 05/28/2018 Peripheral Nerve Disease Active 07/20/2018 Type II Diabetes Mellitus Uncontrolled Active 08/06/2018 Procedures Date Name Performed by 11/30/2017 Exploration of Kidney Information not available Remove Tonsils and Adenoids Information not available Ankle Arthroscopy/surgery Information not available Exploration of Kidney Information not available Hysterectomy/revise Vagina Information not available 07/20/2018 Tympanogram In-House Results For Internal Use Only [id number] 07/20/2018 Unlisted Imaging Order [facility] ( Scheduling) [address] [place] [address] (Work Place) Vaccine List Vaccine Type Tdap 05/28/20180.5 mL Social History Smoking Status Heavy Tobacco Smoker (1 PPD) Past Encounters 08/06/2018 Type II Diabetes Mellitus Uncontrolled; Essential Hypertension; Chronic Depression; Cigarette Smoker; Dysuria Dylan De Luna MD: [address] [place] [address], [address], [place] [address], Ph. [phone] 07/30/2018 Hoarse; Choking; Polyp of Vocal Cord; Smoker; Dysphagia; Sinusitis; Deviated Nasal Septum; Hypertrophy of Nasal Turbinates; Hearing Loss; Otitis Externa; Tinnitus Geoff Villarreal MD: [address], [address], [place] [id number], Ph. 07/20/2018 Peripheral Nerve Disease; Obstructive Sleep Apnea of Adult Dylan De Luna MD: [address], [address], [place] [id number], Ph. [phone] 07/20/2018 Choking; Dysphagia; Polyp of Vocal Cord; Hoarse; Smoker; Hearing Loss; Otitis Externa; Otalgia; Tinnitus; Hypertrophy of Nasal Turbinates; Deviated Nasal Septum; Sinusitis Geoff Villarreal MD: [address], [address], [place] [phone], Ph. History of Present Illness Note: CC htnb<div>hpi too high now non compliant on exercise and diet& lt;/div><div>CC DM</div><div>HPI too high for surg non compliant</div><div>CC retanal hemorrhage from DM from hx from eye dr</div><div>ros</div><div>gen does not feel well</ div><div>cv stable</div><div>resp cough seeing Dr Vogt</ div><div>gi neg</div>Review of Systems: ROS as noted in the HPI Review of Systems None recorded. Physical Exam Dr. De Luna Brief Adult Exam - M/F Reported By: Patient Constitutional: General Appearance: well-developed, obese. Level of Distress: NAD. Ambulation: ambulating normally Lungs: Auscultation: breath sounds normal, good air movement, CTA except as noted, no wheezing, no rales/crackles, no rhonchi Cardiovascular: Heart Auscultation: RRR, no rubs, no gallops Musculoskeletal: Edema absent
--- OUTSIDE RECORDS SUMMARY | 2018-08-24 22:02 | XMS REPORT | Encounter Summary ---
:1960 Author Care Team Providers Name Role Phone Dylan De Luna MD Primary Care Provider [phone] Reason for Visit Follow Up Results Instructions 1. Hoarse 2. Choking 3. Polyp of vocal cord 4. Smoker 5. Dysphagia 6. Sinusitis 7. Deviated nasal septum 8. Hypertrophy of nasal turbinates 9. Hearing loss 10. Otitis externa 11. Tinnitus Discussion Note: None recorded.Patient educational handouts: No information available. Plan of Care Patient Instructions Patient discharged with the following per Dr. Villarreal Arranging to do Microlaryngoscopy with biopsy and esophagoscopy with biopsy in 1 week Complication and risk were expalined to the patient If any other problems patient is to call my office Patient verbalized understanding the instructions given along with my office staff Reminders Provider Appointments None recorded. Lab None recorded. Referral None recorded. Procedures None recorded. Surgeries [...] (1) TABLET(S) BY MOUTH ONCE A DAY. Lotemax 0.5 % eye gel drops metformin 500 mg tablet TAKE ONE (1) TABLET(S) BY MOUTH TWICE A DAY. Pazeo 0.7 % eye drops Medications Administered None recorded. Vitals Height Weight BMI 5 ft 7 in 280 lbs 43.9 kg/m2 Lab Results Date Name Specimen Result Interpretation Description Value Range Status Address 07/20/2018 Tympanogram Right Type A In-House Normal Results: For Internal Use Only Left Type A In-House Normal Results: For Internal Use Only Allergies Code Code System Name Reaction Severity Status Onset 708533 RxNorm Benadryl Active 632518 RxNorm Demerol Active 20270816 RxNorm Diflucan Hives [...] Active 05/28/2018 Peripheral Nerve Disease Active 07/20/2018 Procedures Date Name Performed by 11/30/2017 Exploration of Kidney Information not available Remove Tonsils and Adenoids Information not available Ankle Arthroscopy/surgery Information not available Exploration of Kidney Information not available Hysterectomy/revise Vagina Information not available 07/20/2018 Tympanogram In-House Results For Internal Use Only [id number] 07/20/2018 Unlisted Imaging Order [facility] ( Scheduling) [address] [place] [address] (Work Place) Vaccine List Vaccine Type Tdap 05/28/20180.5 mL Social History Smoking Status Heavy Tobacco Smoker (1 PPD) Past Encounters 07/30/2018 Hoarse; Choking; Polyp of Vocal Cord; Smoker; Dysphagia; Sinusitis; Deviated Nasal Septum; Hypertrophy of Nasal Turbinates; Hearing Loss; Otitis Externa; Tinnitus Geoff Villarreal MD: [address], [address], [place] [address], Ph. 07/20/2018 Peripheral Nerve Disease; Obstructive Sleep Apnea of Adult Dylan De Luna MD: [address], [address], [place] [address], Ph. 07/20/2018 Choking; Dysphagia; Polyp of Vocal Cord; Hoarse; Smoker; Hearing Loss; Otitis Externa; Otalgia; Tinnitus; Hypertrophy of Nasal Turbinates; Deviated Nasal Septum; Sinusitis Geoff Villarreal MD: [address] [place] [address], [address], [place] [address], Ph. History of Present Illness None recorded. Review of Systems ENT ROS Reported By: Patient ENMT: ENMT: sinus pressure, swelling, sore throat, hoarseness, runny nose; choking. cough Physical Exam ENT Exam Cherelle Focus-No Stethoscope Reported By: Patient Constitutional: General Appearance: obese. Communication: hoarse Nose: Nasal Mucosa: crusted, granulomatous, hypertrophy, irritated mucosa. Septum: deviated to the left, impinging left middle meatus % obstruction. Turbinates: right inferior turbinate hypertrophy 4+, left inferior turbinate hypertrophy 4+. Polyps: none Oral Cavity/Mouth: Larynx: erythema of the true vocal cords, edema of the true vocal cords, vocal polyp; no also note Schomer seen in vocal cords
[2018-08-24 22:43] LABS: Urine Blood NEGATIVE (NEG); Urine Glucose NEGATIVE (NEG); Urine Protein NEGATIVE (NEG); Urine pH 5.5 (5.0-7.0)
[2018-08-25 00:19] LABS: Absolute Lymphocytes (CBC) 3.3 K/uL (0.7-4.9); Absolute Monocytes 0.7 K/uL (0.1-1.3); Absolute Neutrophil 4.1 K/uL (1.8-8.0); Basophils % 0.8 % (0-1.3); Eosinophils % 3.9 % (0-4.4); Hematocrit 41.8 % (36.0-45.0); Lymphocytes % 38.6 % (15.3-44.8); MPV 7.7 fL (7.6-11.3); Monocytes % 8.1 % (3.3-12.3); RBC Red Blood Cell Count 4.85 M/uL (3.86-4.86)
[2018-08-25] MEDS ORDERED: NA CHLORIDE 0.9% 1,000 ML ONE ×2 (00:20→02:13)
[2018-08-25 00:30] LABS: ALT/SGPT 51 U/L (12-78); AST/SGOT 25 U/L (15-37); Albumin 3.4 g/dL (3.4-5.0); Alkaline Phosphatase 75 U/L (45-117); BUN Blood Urea Nitrogen 31 mg/dL (7-18); Bicarbonate 26 mmol/L (21-32); Bilirubin Direct < 0.1 mg/dL (0-0.2); Bilirubin Total 0.2 mg/dL (0.2-1.0); Glucose Level 136 mg/dL (74-106); Lipase 264 U/L (73-393); Potassium 3.7 mmol/L (3.5-5.1); Protein, Total 6.5 g/dL (6.4-8.2); Sodium Level 139 mmol/L (136-145)
[2018-08-25] MEDS ORDERED: ACETAMINOPHEN 500 MG TAB ONE ×2 (00:41→02:13)
--- NOTE | 2018-08-25 03:05 | ER ---
Nurse's Notes [facility] Name: Ankita Todd Age: 57 yrs Sex: Female : 1960 Arrival Date: 08/24/2018 Time: 21:57 Bed 14 Private MD: Diagnosis: Right hydronephrosis;Right renal calculous;Retention of urine;History of left nephrectomy Presentation: 08/24 22:01 Presenting complaint: Patient states: she has been having high blood sugar since the bb end of July and she is having a lot of back pain x 4 days and she has been drinking a lot of water but not urinating very much and she only has one kidney had a left nephrectomy in November 2015. Transition of care: patient was not received from another setting of care. Onset of symptoms was July 2018. Risk Assessment: Do you want to hurt yourself or someone else? Patient reports no desire to harm self or others. Initial Sepsis Screen: Does the patient meet any 2 criteria? No. Patient's initial sepsis screen is negative. Does the patient have a suspected source of infection? No. Patient's initial sepsis screen is negative. Care prior to arrival: None. 22:01 Method Of Arrival: Ambulatory bb 22:01 Acuity: BRYAN 3 bb Historical: - Allergies: 22:06 Demerol; bb 22:06 Diflucan; bb 22:06 Morphine (Doesn't Work); bb 22:06 Nitrofurantoin Macrocrystal; bb 22:06 tramadol; bb - Home Meds: 22:06 Bystolic 5 mg Oral tab 1 tab once daily [Active]; metformin 500 mg Oral Tb24 1 tab once bb daily [Active]; glipizide 5 mg Oral tab 2 times per day [Active]; Anoro Ellipta 62.5-25 mcg/actuation inhalation dsdv 1 puff once daily [Active]; montelukast 10 mg oral tab 1 tab once daily [Active]; - PMHx: 22:06 Anxiety; Colitis; Diabetes - NIDDM; High Cholesterol; Hypertension; kidney stent; Sleep bb Apnea; - PSHx: 22:06 Kidney Stent placement; Kidney Stent Removal; Hysterectomy; left nephrectomy; bb - Immunization history:: Adult Immunizations up to date, Last tetanus immunization: < 5 years ago Flu vaccine is not up to date. - Social history:: Smoking status: Patient uses tobacco products, smokes one pack cigarettes per day. Patient/guardian denies using alcohol. - Ebola Screening: : No symptoms or risks identified at this time. Screenin:50 Abuse screen: Denies threats or abuse. Nutritional screening: No deficits noted. aa1 Tuberculosis screening: No symptoms or risk factors identified. Fall Risk None identified. Assessment: 22:50 General: Appears in no apparent distress. uncomfortable, Behavior is calm, cooperative, aa1 appropriate for age. Pain: Complains of pain in right low back Pain does not radiate. Pain currently is 10 out of 10 on a pain scale. Quality of pain is described as pressure, Pain began Earlier today. Is continuous, Aggravated by repositioning. Neuro: Level of Consciousness is awake, alert, obeys commands, Oriented to person, place, time, situation. Cardiovascular: Patient's skin is warm and dry. Respiratory: Airway is patent Respiratory effort is even, unlabored, Respiratory pattern is regular, symmetrical. GI: No signs and/or symptoms were reported involving the gastrointestinal system. : No signs and/or symptoms were reported regarding the genitourinary system. EENT: No signs and/or symptoms were reported regarding the EENT system. Derm: Skin is intact, Skin is pink, warm \T\ dry. Musculoskeletal: Circulation, motion, and sensation intact. 22:50 General: Bladder scan results: 145ml. aa1 08/25 00:00 Reassessment: Patient appears in no apparent distress at this time. Patient and/or jb4 family updated on plan of care and expected duration. Pain level reassessed. Patient is alert, oriented x 3, equal unlabored respirations, skin warm/dry/pink. 01:00 Reassessment: Patient appears in no apparent distress at this time. Patient and/or jb4 family updated on plan of care and expected duration. Pain level reassessed. Patient is alert, oriented x 3, equal unlabored respirations, skin warm/dry/pink. 02:00 Reassessment: Patient appears in no apparent distress at this time. Patient and/or jb4 family updated on plan of care and expected duration. Pain level reassessed. Patient is alert, oriented x 3, equal unlabored respirations, skin warm/dry/pink. 03:00 Reassessment: Patient appears in no apparent distress at this time. Patient and/or jb4 family updated on plan of care and expected duration. Pain level reassessed. Patient is alert, oriented x 3, equal unlabored respirations, skin warm/dry/pink. 04:00 Reassessment: Patient appears in no apparent distress at this time. Patient and/or jb4 family updated on plan of care and expected duration. Pain level reassessed. Patient is alert, oriented x 3, equal unlabored respirations, skin warm/dry/pink. Vital Signs: 08/24 22:06 BP 169 / 98; Pulse 84; Resp 18 S; Temp 98.2(O); Pulse Ox 96% on R/A; Weight 127.01 kg bb (R); Height 5 ft. 7 in. (170.18 cm) (R); Pain 11/21; 08/25 01:00 BP 111 / 63; Pulse 65; Resp 16; Pulse Ox 96% on R/A; jb4 02:00 BP 109 / 62; Pulse 66; Resp 16; Pulse Ox 90% on R/A; jb4 04:00 BP 133 / 70; Pulse 63; Resp 16; Pulse Ox 96% on R/A; jb4 08/24 22:06 Body Mass Index 43.85 (127.01 kg, 170.18 cm) bb ED Course: 08/24 21:57 Patient arrived in ED. es 22:03 Triage completed. bb 22:06 Arm band placed on right wrist. Patient placed in waiting room, Patient notified of bb wait time. 22:50 Patient has correct armband on for positive identification. Pulse ox on. NIBP on. aa1 22:52 Red Murray NP is PHCP. pm1 22:52 He Jamison MD is Attending Physician. pm1 22:55 Inserted saline lock: 20 gauge in right antecubital area, using aseptic technique. mt Blood collected. 23:10 Oj Thompson, JULIO C is Primary Nurse. jb4 08/25 00:[address] via wheelchair. kw1 00:45 Abdomen In Process Unspecified. EDMS 02:59 Libby Cárdenas MD is Hospitalizing Provider. pm1 04:36 No provider procedures requiring assistance completed. Patient admitted, IV remains in jb4 place. Administered Medications: 00:05 Drug: NS 0.9% 1000 ml Route: IV; Rate: 1000 ml; Site: right antecubital; jb4 01:30 Follow up: IV Status: Completed infusion jb4 00:45 Drug: Tylenol 500 mg Route: PO; jb4 01:30 Follow up: Response: No adverse reaction; Pain is decreased jb4 02:08 Drug: Tylenol 500 mg Route: PO; jb4 02:40 Follow up: Response: No adverse reaction; Pain is decreased jb4 02:09 Drug: NS 0.9% 1000 ml Route: IV; Rate: 1000 ml; Site: right antecubital; jb4 03:15 Follow up: Response: No adverse reaction; IV Status: Completed infusion jb4 Point of Care Testing: Blood Glucose: 08/24 22:50 Blood Glucose: 129 mg/dL; aa1 Ranges: Outcome: 08/25 03:04 Decision to Hospitalize by Provider. pm1 04:36 Admitted to Med/surg accompanied by nurse, via wheelchair, room 231, with chart, Report jb4 called to JULIO C Bustamante 04:36 Condition: stable 04:36 Discharge instructions given to patient, friend, Instructed on the need for admit, Demonstrated understanding of instructions. 04:40 Patient left the ED. jb4 Signatures: Dispatcher [employer] Chiquis Gastelum RN RN aa1 Renee Merrill Brenda, RN RN Red Burton, [employer] pm1 Oj Thompson RN RN jb4 Nancy Preciado mt, Kimberly kw1 Corrections: (The following items were deleted from the chart) 04:40 04:37 Inserted saline lock: 20 gauge in right antecubital area, using aseptic mt technique. Blood collected. mt
--- NOTE | 2018-08-25 03:05 | EDPHYS ---
Physician Documentation [facility] Name: Ankita Todd Age: 57 yrs Sex: Female : 1960 Arrival Date: 08/24/2018 Time: 21:57 Bed 14 Private MD: He Russo HPI: 08/24 23:00 This 57 yrs old Female presents to ER via Ambulatory with complaints of Back pm1 Pain, Urinary retention. 23:00 The patient presents with pain that is acute, with no known mechanism of injury. The pm1 symptoms are located in the right low back. Onset: The symptoms/episode began/occurred today. The pain radiates to the right lower quadrant. Associated signs and symptoms: Pertinent negatives: chest pain, fever, nausea, numbness, tingling, vomiting. The problem was sustained from unknown cause. Modifying factors: The patient symptoms are alleviated by nothing, the patient symptoms are aggravated by nothing. Severity of symptoms: in the emergency department the symptoms are actually worse. The patient has not experienced similar symptoms in the past. The patient has not recently seen a physician. Patient with history of left nephrectomy in 2016. Patient with inability to urinate today. Has been drinking plenty of fluids. Pain to right flank radiating to right lower quadrant. Historical: - Allergies: 22:06 Demerol; bb 22:06 Diflucan; bb 22:06 Morphine (Doesn't Work); bb 22:06 Nitrofurantoin Macrocrystal; bb 22:06 tramadol; bb - Home Meds: 22:06 Bystolic 5 mg Oral tab 1 tab once daily [Active]; metformin 500 mg Oral Tb24 1 tab once bb daily [Active]; glipizide 5 mg Oral tab 2 times per day [Active]; Anoro Ellipta 62.5-25 mcg/actuation inhalation dsdv 1 puff once daily [Active]; montelukast 10 mg oral tab 1 tab once daily [Active]; - PMHx: 22:06 Anxiety; Colitis; Diabetes - NIDDM; High Cholesterol; Hypertension; kidney stent; Sleep bb Apnea; - PSHx: 22:06 Kidney Stent placement; Kidney Stent Removal; Hysterectomy; left nephrectomy; bb - Immunization history:: Adult Immunizations up to date, Last tetanus immunization: < 5 years ago Flu vaccine is not up to date. - Social history:: Smoking status: Patient uses tobacco products, smokes one pack cigarettes per day. Patient/guardian denies using alcohol. - Ebola Screening: : No symptoms or risks identified at this time. ROS: 23:00 Constitutional: Negative for fever, chills, and weight loss, Eyes: Negative for injury, pm1 pain, redness, and discharge, ENT: Negative for injury, pain, and discharge, Neck: Negative for injury, pain, and swelling, Cardiovascular: Negative for chest pain, palpitations, and edema, Respiratory: Negative for shortness of breath, cough, wheezing, and pleuritic chest pain, Abdomen/GI: Negative for abdominal pain, nausea, vomiting, diarrhea, and constipation. 23:00 MS/Extremity: Negative for injury and deformity, Skin: Negative for injury, rash, and discoloration, Neuro: Negative for headache, weakness, numbness, tingling, and seizure. 23:00 Back: Positive for flank pain, on the right. 23:00 : Positive for difficulty urinating, Retention, Negative for burning with urination. Exam: 23:00 Constitutional: This is a well developed, well nourished patient who is awake, alert, pm1 and in no acute distress. Head/Face: Normocephalic, atraumatic. Eyes: Pupils equal round and reactive to light, extra-ocular motions intact. Lids and lashes normal. Conjunctiva and sclera are non-icteric and not injected. Cornea within normal limits. Periorbital areas with no swelling, redness, or edema. ENT: Nares patent. No nasal discharge, no septal abnormalities noted. Tympanic membranes are normal and external auditory canals are clear. Oropharynx with no redness, swelling, or masses, exudates, or evidence of obstruction, uvula midline. Mucous membranes moist. Neck: Trachea midline, no thyromegaly or masses palpated, and no cervical lymphadenopathy. Supple, full range of motion without nuchal rigidity, or vertebral point tenderness. No Meningismus. Chest/axilla: Normal chest wall appearance and motion. Nontender with no deformity. No lesions are appreciated. Cardiovascular: Regular rate and rhythm with a normal S1 and S2. No gallops, murmurs, or rubs. Normal PMI, no JVD. No pulse deficits. Respiratory: Lungs have equal breath sounds bilaterally, clear to auscultation and percussion. No rales, rhonchi or wheezes noted. No increased work of breathing, no retractions or nasal flaring. Abdomen/GI: Soft, non-tender, with normal bowel sounds. No distension or tympany. No guarding or rebound. No evidence of tenderness throughout. 23:00 Skin: Warm, dry with normal turgor. Normal color with no rashes, no lesions, and no evidence of cellulitis. MS/ Extremity: Pulses equal, no cyanosis. Neurovascular intact. Full, normal range of motion. 23:00 Back: normal spinal alignment noted, CVA tenderness, that is moderate, is noted on the right. 23:00 Neuro: Orientation: is normal, Mentation: is normal, Motor: is normal, moves all fours, Sensation: is normal, no obvious gross deficits. Vital Signs: 22:06 BP 169 / 98; Pulse 84; Resp 18 S; Temp 98.2(O); Pulse Ox 96% on R/A; Weight 127.01 kg bb (R); Height 5 ft. 7 in. (170.18 cm) (R); Pain 410; 08/25 01:00 BP 111 / 63; Pulse 65; Resp 16; Pulse Ox 96% on R/A; jb4 02:00 BP 109 / 62; Pulse 66; Resp 16; Pulse Ox 90% on R/A; jb4 04:00 BP 133 / 70; Pulse 63; Resp 16; Pulse Ox 96% on R/A; jb4 08/24 22:06 Body Mass Index 43.85 (127.01 kg, 170.18 cm) [facility]: 08/24 22:54 Patient medically screened. [facility] 08/25 02:50 Physician consultation: Gio Lainez MD was called at 02:40, was contacted at 02:40, pm1 regarding consult, patient's condition, would like admission per . Libby Cárdenas MD would like further tests performed, Chemistry in AM. 02:55 Data reviewed: vital signs. Counseling: I had a detailed discussion with the patient pm1 and/or guardian regarding: the historical points, exam findings, and any diagnostic results supporting the discharge/admit diagnosis, lab results, radiology results, the need for further work-up and treatment in the hospital. 03:10 Physician consultation: Libby Cárdenas MD was called at 03:00, was contacted at 03:00, pm1 regarding admission, patient's condition, and will see patient. 08/24 22:36 Order name: Urine Dipstick--Ancillary (enter results); Complete Time: 00:39 ar5 08/24 23:50 Order name: Basic Metabolic Panel; Complete Time: 00:39 pm1 08/24 23:50 Order name: CBC with Diff; Complete Time: 00:39 pm1 08/24 23:50 Order name: Creatinine for Radiology; Complete Time: 00:39 pm1 08/24 23:50 Order name: Hepatic Function; Complete Time: 00:39 pm1 08/24 23:50 Order name: Lipase; Complete Time: 00:39 pm1 08/25 00:00 Order name: Abdomen EDMS 08/25 03:31 Order name: Urine Microscopic Only pm1 08/25 03:32 Order name: Urine Microscopic Only EDMS 08/24 23:50 Order name: IV Saline Lock; Complete Time: 00:07 pm1 08/24 23:50 Order name: Labs collected and sent; Complete Time: 00:07 pm1 Administered Medications: 00:05 Drug: NS 0.9% 1000 ml Route: IV; Rate: 1000 ml; Site: right antecubital; jb4 01:30 Follow up: IV Status: Completed infusion jb4 00:45 Drug: Tylenol 500 mg Route: PO; jb4 01:30 Follow up: Response: No adverse reaction; Pain is decreased jb4 02:08 Drug: Tylenol 500 mg Route: PO; jb4 02:40 Follow up: Response: No adverse reaction; Pain is decreased jb4 02:09 Drug: NS 0.9% 1000 ml Route: IV; Rate: 1000 ml; Site: right antecubital; jb4 03:15 Follow up: Response: No adverse reaction; IV Status: Completed infusion jb4 Point of Care Testing: Blood Glucose: 08/24 22:50 Blood Glucose: 129 mg/dL; aa1 Ranges: Critical Glucose Levels:Adult <50 mg/dl or >400 mg/dl <40 mg/dl or >180 mg/dl Disposition: 08/25/18 03:04 Hospitalization ordered by Libby Cárdenas for Observation. Preliminary diagnosis are Right hydronephrosis, Right renal calculous, Retention of urine, History of left nephrectomy. - Bed requested for Telemetry/MedSurg (observation). - Status is Observation. jb4 - Condition is Stable. - Problem is new. - Symptoms have improved. UTI on Admission? No Addendum: 08/28/2018 06:45 Co-signature as Attending Physician, He Jamsion MD I agree with the assessment and c cobian plan of care. Signatures: Dispatcher [employer] EDRI Maria Luz Elise RN RN kl Anderson, Corey, MD MD cha Ballard, Brenda, RN RN bb Marinas, Patrick, ANSWERING SERVICE OPERATOR ANSWERING SERVICE OPERATOR pm1 Oj Thompson RN RN jb4 Corrections: (The following items were deleted from the chart) 08/25 00:00 08/24 23:51 Abdomen Pelvis W Con+CT.RAD.BRZ ordered. [facility] 08/25 04:02 03:04 Hospitalization Ordered by Libby Cárdenas MD for Observation. Preliminary kl diagnosis is Right hydronephrosis; Right renal calculous; Retention of urine; History of left nephrectomy. Bed requested for Telemetry/MedSurg (observation). Status is Observation. Condition is Stable. Problem is new. Symptoms have improved. UTI on Admission? No. pm1 04:40 04:02 08/25/2018 03:04 Hospitalization Ordered by Libby Cárdenas MD for Observation. jb4 Preliminary diagnosis is Right hydronephrosis; Right renal calculous; Retention of urine; History of left nephrectomy. Bed requested for Telemetry/MedSurg (observation). Status is Observation. Condition is Stable. Problem is new. Symptoms have improved. UTI on Admission? No. kl
--- NOTE | 2018-08-25 04:12 | P.HP ---
Certification for Inpatient Patient admitted to: Observation With expected LOS: <2 Midnights Practitioner: I am a practitioner with admitting privileges, knowledge of patient current condition, hospital course, and medical plan of care. Services: Services provided to patient in accordance with Admission requirements found in Title 42 Section 412.3 of the Code of Federal Regulations Patient History Date of Service: 08/25/18 Reason for admission: right hydronephrosis History of Present Illness: Ms Todd is a 57 years old woman with history of obesity, HTN, Nephrolithiasis, left nephrectomy, who came to the hospital due to right flank pain. The pain was colicky like, 10/10 of intensity, constant. She also states that was not making enough urine as usual, despite to drink significant amount of water. No history of fever or chills, in fact she took her temperture and it was 95.5 F. At arrival the patient received tylenol for pain and IV fluids. Subsequently she urinated without problem. Lab work shows normal WBC count, normal renal function, CT abd/pelvis report right mild hyronephrosis. The case was discussed with Dr Lainez, who believe that the patient recently past a stone. He recommended to admit the patient for 24 Hr and evaluate her progress. Allergies diphenhydramine [From Benadryl] Allergy (Verified 02/27/17 10:03) hallucinate fluconazole [From Diflucan] Allergy (Verified 02/27/17 09:57) Unknown meperidine [From Demerol] Allergy (Verified 02/27/17 09:57) Unknown morphine Allergy (Verified 02/27/17 09:57) Unknown tramadol Allergy (Verified 02/27/17 09:57) Unknown nitrofurantoin [From Macrobid] Adverse Reaction (Verified 02/27/17 09:57) Itching Nitrofuran Allergy (Uncoded 03/02/17 09:12) Unknown Nitrofurantoin Allergy (Uncoded 10/08/17 16:41) Unknown Home medications list reviewed: Yes Home Medications: Acetaminophen with Codeine [Tylenol with Codeine #3 Tablet] 2 tab PO Q6H PRN 03/30 Icosapent Ethyl [Vascepa] 4 cap PO BID 02/18/17 Lisinopril [Prinivil*] 20 mg PO DAILY 02/18/17 Metaxalone 800 mg PO Q6H PRN 02/18/17 Metformin HCl [Glucophage] 500 mg PO BID 02/18/17 Oxybutynin Chloride [Ditropan*] 5 mg PO TID PRN 02/18/17 diazePAM [Valium*] 5 mg PO BID 02/18/17 Micafungin Sodium [Mycamine*] 100 mg IV DAILY #7 02/22/17 Hydroxyzine HCl [Atarax] 25 mg PO TID PRN #30 02/23/17 - Past Medical/Surgical History Diabetic: No -: Nephrolithiasis -: HTN -: Dyslipidemia -: anxiety -: LEG SURGERY -: kidney stent -: hysterectomy -: Ureter anastomosis with stent placement -: left Nephrectomy - Family History Family History: Reviewed- Non-Contributory - Social History Smoking Status: Current every day smoker Counseled patient to stop smoking for: less than 10 minutes Alcohol use: No CD- Drugs: Yes Caffeine use: Yes Place of Residence: Home Review of Systems 10-point ROS is otherwise unremarkable Physical Examination - Physical Exam General: Alert, In no apparent distress HEENT: Atraumatic, PERRLA, Mucous membr. moist/pink, EOMI, Sclerae nonicteric Neck: Supple, 2+ carotid pulse no bruit, No LAD, Without JVD or thyroid abnormality Respiratory: Diminished, Expiratory wheezes Cardiovascular: Regular rate/rhythm, Normal S1 S2 Gastrointestinal: Normal bowel sounds, No tenderness Musculoskeletal: No tenderness Integumentary: No rashes Neurological: Normal speech, Normal strength at 5/5 x4 extr, Normal tone, Normal affect Lymphatics: No axilla or inguinal lymphadenopathy - Studies Laboratory Data (last 24 hrs) 08/24/18 23:59: Creatinine 1.06 08/24/18 23:59: WBC 8.4, Hgb 14.2, Hct 41.8, Plt Count 232 08/24/18 23:59: Sodium 139, Potassium 3.7, BUN 31 H, Creatinine 1.08, Glucose 136 H, Total Bilirubin 0.2, AST 25, ALT 51, Alkaline Phosphatase 75, Lipase 264 Assessment and Plan - Problems (Diagnosis) (1) Hydronephrosis Current Visit: No Status: Acute Qualifiers: Hydronephrosis type: unspecified Qualified Code(s): N13.30 - Unspecified hydronephrosis (2) Dyslipidemia Current Visit: No Status: Chronic (3) Morbid obesity with BMI of 40.0-44.9, adult Current Visit: No Status: Chronic (4) Nephrolithiasis Current Visit: No Status: Chronic (5) Nicotine dependence Current Visit: No Status: Chronic Qualifiers: Nicotine product type: cigarettes Substance use status: uncomplicated Qualified Code(s): F17.210 - Nicotine dependence, cigarettes, uncomplicated - Plan The patient will be admitted to the hospital under observation as it was recommended by Dr Lainez in order to evaluate progress of her symptoms. He will see the patient in AM. - Advance Directives Does patient have a Living Will: Yes Does patient have a Durable POA for Healthcare: Yes - Code Status/Comfort Care Code Status Assessed: Yes Code Status: Full Code
[2018-08-25] MEDS ORDERED: IPRATROPIUM BROM 0.5MG/2.5ML NEB PRN (04:18)
[2018-08-25] MEDS ORDERED: ONDANSETRON 4 MG/2 ML VIAL IV PRN (04:18)
[2018-08-25] MEDS ORDERED: KETOROLAC 30 MG/ML INJ IV PRN (04:18)
[2018-08-25] MEDS ORDERED: ALBUTEROL 2.5 MG/3 ML NEB SOL NEB PRN (04:18)
[2018-08-25 04:38] VITALS: BMI 44.9
[2018-08-25] MEDS: NA CHLORIDE 0.9% 1,000 ML IV SCH ×2 (04:51→14:18)
[2018-08-25 06:02] LABS: Urine Appearance CLEAR; Urine Bilirubin NEGATIVE (NEG); Urine Blood NEGATIVE (NEG); Urine Color YELLOW; Urine Glucose NEGATIVE (NEG); Urine Protein NEGATIVE (NEG); Urine Urobilinogen 0.2 mg/dL (0.2-1.0)
[2018-08-25 06:03] LABS: Urine Microscopic Reflex NO UMIC
--- NOTE | 2018-08-25 08:10 | RAD REPORT ---
EXAM DESCRIPTION: CT - Abdomen Pelvis Wo Contrast - 08/25/2018 5:00 am CLINICAL HISTORY: Abdominal pain, right flank pain A preliminary report was provided at the time of the study and reviewed prior to final report. COMPARISON: CT study November 2017 TECHNIQUE: Axial [address] imaging of the abdomen and pelvis was performed without IV contrast. No IV contrast was given because of allergy, abnormal renal function, patient refusal or physician re quest. No oral contrast given. All CT scans are performed using dose optimization technique as appropriate and may include automated exposure control or mA/KV adjustment according to patient size. FINDINGS: No suspicious findings in the lung bases. Liver shows fatty infiltration. No focal liver lesion identified. Gallbladder and biliary tree are al so without suspicious finding. No spleen abnormality. There is a subtle fullness to the tail of the p ancreas not seen on prior imaging. No calcification. Mild dilatation of the right pelvis and calices present similar to comparison. No dilatation of the u reter. A 2 millimeter right pelvic calcification present. There is a 2 millimeter calyx calcification on the right as well. No significant adrenal finding. Isodense renal masses and pyelonephritis pravin ot be excluded in the absence of IV contrast. Left kidney has been resected since prior imaging. No s uspicious finding at the left renal fossa. Partially filled urinary bladder shows no wall thickening or mass. There is a small 3 mm stone adherent to the anterior wall similar to comparison Ovaries are absent or atrophic. No dilated bowel loops or bowel wall thickening. No free air, free fluid or inflammatory stranding. A few small nonspecific mesenteric lymph nodes are present under 1 centimeter. No bulky lymphadenopath y or omental thickening. A small fat only umbilical hernia is present and stable. No suspicious bony findings. IMPRESSION: Right renal pelvic and calyceal dilatation without obstructing calculus. There is a 2 mi llimeter nonobstructing stone in the pelvis. No right sided hydroureter or ureteral calculus. Left kidney has been resected since prior imaging. No acute bladder abnormality seen. There is a 3 millimeter adherent stone along the anterior wall sta ble from prior imaging. Soft tissue fullness is present at the tail of the pancreas not clearly a definable mass. This change is possibly secondary to the affects of adjacent tissue loss from intervening nephrectomy. However, developing mass cannot be excluded and close CT follow-up in 3 months could be performed. Alternative ly, contrast-enhanced MRI imaging could be performed using pancreas protocol. Fatty infiltration of the liver. Full assessment is limited is the absence of IV contrast. Isodense masses and pyelonephritis are not excluded. Nonacute findings detailed in the body of the report.
[2018-08-25] MEDS: ACETAMINOPHEN 500 MG TAB PO PRN (10:38)
[2018-08-25 11:41] VITALS: O2SAT 94
[2018-08-25] MEDS ORDERED: HYDROCODONE/APAP 7.5/325 MG TAB PO ONE (13:17)
--- NOTE | 2018-08-25 13:42 | PN ---
Date of Progress Note: 08/25/2018 Subjective: The patient is seen and examined. Chart reviewed, and case discussed with RN. The era ent states that her pain is somewhat better. No acute events overnight. Medications: List reviewed. Physical Examination: Vital Signs: Temperature 97.9, heart rate 77, blood pressure 140/62, respirations 20, O2 of 94% on r oom air. GENERAL: Awake, alert, oriented x3. Some mild distress. A morbidly obese female, ill-appearing. CV: S1, S2. Regular rate and rhythm. Peripheral pulses present. Respiratory: Moving air well bilaterally. No wheezing or stridor. Gastrointestinal: Abdomen is soft. Mild tenderness to palpation in the epigastric region. No rebou nd or guarding. Right flank tenderness. Extremities: No clubbing, cyanosis, or edema. Neuro: Cranial nerves 2 through 12 intact grossly. No focal neurological deficit. Speech is normal . Laboratory Data: Labs pending. CT scan of the abdomen and pelvis shows right renal pelvic and calyc eal dilatation without obstructing calculus. There is a 2-mm nonobstructing stone in the pelvis. Le ft kidney has been resected since prior imaging. No right-sided hydroureter or ureteral calculus. Assessment: A 57-year-old female with: 1.Hydronephrosis. 2.Dyslipidemia. 3.Morbid obesity, BMI 44. 4.Nephrolithiasis, nonobstructing. 5.Nicotine dependence with cigarette smoking, uncomplicated. Plan: Continue with IV fluid resuscitation, IV antibiotics. Monitor I's and O's. Urology is being consulted. /LUIS CARLOS Voice ID: [id number] Report ID: [id number]
[2018-08-25] MEDS: NEBIVOLOL HCL 5 MG TAB PO SCH (18:22)
--- NOTE | 2018-08-25 19:28 | CON ---
History Of Present Illness: Ms. Todd is a 57-year-old woman with a history of obesity, hypertension, nephrolithiasis, status post left nephrectomy for stone, and nonfunctioning kidney. She had a nephrectomy done by Dr. Lamar, robotic left nephrectomy done November 30, 2017, along with hysterectomy the last year. She was doing well until 4 days ago, started having experiencing right flank pain. She had difficulty voiding those 4 days difficulty making urine. She passed a stone on the right. She came to the ER. A CT showed hydroureter and a small stone remain in the right renal pelvis. Once the stone was passed, she started making urine, and making good urine output now. We decided to admit her overnight even though it sounds like she passed the stone just to observe her creatinine function. Her renal function admission was showing a BUN of 31, creatinine of 1.0 with GFR of 52. Sodium was 139, potassium 3.7, chloride 105, carbon dioxide 26, glucose 136. Allergies: TO BENADRYL, DIFLUCAN, MEPERIDINE, MORPHINE, TRAMADOL, NITROFURANTOIN. Home Medications: Tylenol with codeine no. 3, Vascepa 4 tablets p.o. b.i.d., lisinopril, metaxalone, metformin, oxybutynin, Valium, Mycamine, Atarax. Past Medical History: No diabetes, history of stones, hypertension, dyslipidemia, anxiety, neck surgery, kidney stent, hysterectomy, kidney surgery , left nephrectomy. Family History: Noncontributory. Social Status: Currently smoke every day. The patient was counseled to stop smoking. No alcohol use. Does caffeine use. No drug use. Resides at home. Review of Systems: Ten-point review of systems otherwise unremarkable. Physical Examination: General: She is afebrile, stable. HEENT: Atraumatic, normocephalic. Neck: Supple. Respiratory: Clear. Cardiovascular: S1, S2. Gastrointestinal: Soft. Musculoskeletal: Nontender. Skin: No rashes. Neurological: Alert and oriented. Lymphatics: No lymphadenopathy. Laboratory Data: As mentioned above. CBC shows white count 8.4, H and H 14 and 42, platelet count 232,000. Urinalysis shows clear pH 5.0, specific gravity 1.010, blood negative, nitrite negative, esterase negative. Assessment: This patient with solitary right kidney, status post left nephrectomy for benign disease. Appears to have just passed a small stone on the right. Recommended following the kidney function. She has another chem 7 today and then if that is normal, if her kidney function is not worsening, she should be able to go home. I recommended hydration 3 to 4 L a day of water. Recommend lemonade magnesium citrate for stone prevention and to follow up with me in 1 year. SANTOS/LUIS CARLOS Voice ID: [id number] Report ID: [id number] NATALEE
[2018-08-25] MEDS: GLIPIZIDE S.A. 5 MG TAB PO SCH (21:20)
[2018-08-26] MEDS: NA CHLORIDE 0.9% 1,000 ML IV SCH (00:07)
[2018-08-26] MEDS: ACETAMINOPHEN 500 MG TAB PO PRN (02:14)
[2018-08-26 05:46] LABS: Absolute Lymphocytes (CBC) 2.3 K/uL (0.7-4.9); Absolute Monocytes 0.6 K/uL (0.1-1.3); Absolute Neutrophil 4.2 K/uL (1.8-8.0); Eosinophils % 3.8 % (0-4.4); Hematocrit 40.6 % (36.0-45.0); Lymphocytes % 30.8 % (15.3-44.8); MPV 7.5 fL (7.6-11.3); Monocytes % 8.5 % (3.3-12.3); RBC Red Blood Cell Count 4.68 M/uL (3.86-4.86)
[2018-08-26 06:17] LABS: Magnesium 2.2 mg/dL (1.8-2.4); Potassium 4.1 mmol/L (3.5-5.1)
[2018-08-26] MEDS: NEBIVOLOL HCL 5 MG TAB PO SCH (08:26)
[2018-08-26] MEDS: GLIPIZIDE S.A. 5 MG TAB PO SCH (08:29)
[2018-08-26 08:32] VITALS: BP 168/78
[2018-08-26] MEDS ORDERED: VILANTEROL TR IH SCH (09:00)
[2018-08-26] MEDS ORDERED: MONTELUKAST 10 MG TAB PO SCH (09:00)
[2018-08-26] MEDS ORDERED: UMECLIDINIUM BRM IH SCH (09:00)
[2018-08-26 09:35] VITALS: TEMP 97.2
--- NOTE | 2018-08-27 12:34 | DS ---
Date of Discharge: 08/26/2018 Public Transportation Inspector: Dr. Lainez with Urology. Procedures: None. Discharge Diagnoses: 1.Hydronephrosis. 2.Right renal pelvis stone. 3.Dyslipidemia. 4.Morbid obesity, BMI 44. 5.Nicotine dependence with cigarette smoking, continuous. 6.Generalized anxiety disorder. Hospital Course: The patient is a 57-year-old female with past medical history of obesity, hypertens ion, nephrolithiasis, left nephrectomy for benign disease, comes in with right flank pain. CT scan s howed mild right hydronephrosis and hydroureter. Urology was consulted. It was felt the patient rec ently passed stone. There was a nonobstructing calculus in the renal pelvis on the right, 2 mm. The patient did have oliguria. The patient was hydrated with IV fluids. Her kidney function remained s table. Dr. Lainez with Urology was consulted. He did not recommend any intervention. The patient wa s hydrated overnight. Her creatinine remained stable. Her urine output improved, and her pain resol coco. The patient was then cleared for discharge from Urology standpoint. She was advised to take le monade with magnesium titrate for stone prevention. The patient to follow up with primary care physi isabela in 2 to 3 days. Follow up with Dr. Lainez, Urology, per his recommendation in 1 year. Return to ER for worsening condition. Diet: Heart healthy. Activity: As tolerated. Physical Examination: General: Awake, alert, oriented x3. No acute distress. CV: S1, S2. No murmurs. Respiratory: Moving air well bilaterally. Abdomen: Soft, nontender, nondistended. Positive bowel sounds. No flank pain. Extremities: No clubbing, cyanosis, or edema. Neurologic: Nonfocal. SA/MODL Voice ID: [id number] Report ID: [id number]
== END 2018-08-26 10:13 | disposition home or self-care (01) ==
LOC: ER 21:54 → ERHOLD 08-25 03:50 → 2ND 08-25 04:15
PROVIDERS: ADMIT Internal Medicine; ATTEND Internal Medicine
DX: N13.2 Hydronephrosis with renal and ureteral calculous obstruction (principal); E78.5 Hyperlipidemia, unspecified; E66.9 Obesity, unspecified; Z68.41 Body mass index [BMI] 40.0-44.9, adult; F41.1 Generalized anxiety disorder; I10 Essential (primary) hypertension; Z90.5 Acquired absence of kidney; F17.210 Nicotine dependence, cigarettes, uncomplicated
CPT/HCPCS: 36415; 74176; 80048; 80076; 81003; 82962; 83690; 83735; 85025; 96360; 96361; 99285; G0378; J7030

== ENCOUNTER 2019-02-12 10:44 | Emergency (ER) | payer BC ==
--- OUTSIDE RECORDS SUMMARY | 2019-02-12 10:48 | XMS REPORT | Clinical Summary ---
:1960 Author Organization [facility] Address [address] [place] [address] Care Team Providers Name Role Phone Dylan De Luna Alfred Primary Care Provider Unavailable Allergies Active Allergy Reactions Severity Noted Date Comments Miconazole Nitrate Itching High 02/20/2017 Diphenhydramine Hcl Other (See Comments), High 02/20/2017 Patient states her Anaphylaxis throat "closes up" Hallucinations. Meperidine Other (See Comments) 02/20/2017 Numbness per patient Pt becomes aggressive Fluconazole Itching, Rash High 03/04/2017 Not as bad with intravenous but worse with oral per her pt [facility] Kiara Antunez [phone] Morphine 12/29/2015 Aggressiveness Severe vomiting Tramadol Other (See Comments) 01/16/2017 Paranoia; nightmares Medications Medication Sig Dispensed Refills Start Date End Date Status metaxalone Take 800 mg by 0 Active (SKELAXIN) 800 MG mouth every 6 tablet (six) hours as needed for Muscle spasms. L. ACIDOPHILUS/DIG Take 2 tablets by 0 Active ENZ CMB 5 mouth daily. (PROBIOTIC-DIGESTIV E ENZYMES ORAL) VALERIAN ORAL Take 470 mg by 0 Active mouth as needed . Missing or every 1 (one) hour 0 Active Non-Formulary Kidney Chi otc Medication vitamin . OREGANO OIL ORAL Take by mouth 0 Active daily. KELP ORAL Take by mouth 0 Active daily. GRAPEFRUIT FORMULA Take by mouth 0 Active ORAL daily. COQ10, UBIQUINOL, Take by mouth 0 Active ORAL daily. carica papaya Take by mouth as 0 Active (PAPAYA ENZYME) Tab needed. ENZYMES,DIGESTIVE Take by mouth 0 Active (DIGESTIVE ENZYMES daily. ORAL) vitamin E 400 UNIT Take 400 Units by 0 Active capsule mouth daily. CALCIUM/MAGNESIUM/V Take by mouth 0 Active IT B COMP daily. (CALCIUM-MAGNESIUM- B COMPLEX ORAL) GARLIC ORAL Take by mouth 0 Active daily. metFORMIN Take 500 mg by 0 Active (GLUCOPHAGE) 500 MG mouth daily with tablet breakfast . nebivolol Take 5 mg by mouth 0 Active (BYSTOLIC) 5 MG daily. tablet oxybutynin Take 1 tablet (5 90 tablet 3 06/15/2017 06/15/2018 (DITROPAN) 5 MG mg total) by mouth tablet every 8 (eight) hours. Active Problems Problem Noted Date Hydronephrosis with [...] Description 02/26/2018 Outside Orders Maria Luz Queen, COREMAKER MACHINE, RPSGT after 02/11/2018 Family History Medical History Relation Name Comments [...] travel history available. Last Filed Vital Signs Not on file Plan of Treatment Health Maintenance Due Date Last Done Comments INFLUENZA VACCINE 05/14/2018 Implants Implanted Type [facility] Device Shelf Model / Identifier Expiration Serial / Date Lot Set Stent Injection 6x28cm 185-615 - [id number] Stents-Pe Left: BOSTON [id number] / Implanted: Qty: 1 on 12/31/2015 by Jag Ritchie MD ripheral [employer] :ONCOLOGY / [id number] Stent Uret Cntour Inj [id number] - [id number] Uro Stent Left: BOSTON 11/24/2017 [id number] / Implanted: Qty: 1 on 09/06/2016 by Jag Ritchie MD [employer]:UROLOGY /GYNE / COLOGY [id number] Stent Uret Cntour Inj [id number] - [id number] Uro Stent Left: BOSTON 06/13/2018 [id number] / Implanted: Qty: 1 on 01/23/2017 by Jag Ritchie MD [employer]:UROLOGY /GYNE / COLOGY [id number] Stent Uret Cntour Inj [id number] - [id number] Uro Stent Left: BOSTON 10/23/2017 [id number] / Implanted: Qty: 1 on 03/10/2017 by Jag Ritchie MD [employer]:UROLOGY /GYNE / COLOGY [id number] Set Stent Injection 6x28cm [id number] - [id number] Uro Stent Right: BOSTON [id number] / Implanted: Qty: 1 on 06/13/2017 by Jag Ritchie MD [employer]: ONCOLOGY / [id number] Procedures Procedure Name Priority Date/Time Associated Diagnosis Comments POLYSOMNOGRAPHY REPORT - 03/05/2018 12:10 PM SCAN CDT after 02/11/2018 Results POLYSOMNOGRAPHY REPORT - SCAN (03/05/2018 12:10 PM CDT) Narrative Performed At after 02/11/2018 Insurance Payer Benefit Plan / Subscriber ID Type Phone Address Group BLUE [employer]OSS/[employer]UE [employer] ADV HMO xxxxxxxxxxxx [phone] [id number] [place] [address] Advance Directives For more information, please contact:[address] [phone] Code Status Date Activated Date Inactivated Comments [...]
--- OUTSIDE RECORDS SUMMARY | 2019-02-12 10:55 | XMS REPORT ---
:1960 [facility] Address [address] 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 Signing Pathologist Direct Phone Line: [phone] signed by Tony Vallejo MD on 12/07/2017 [...] who concurs with a diagnosis of endosalpingiosis. 66824, 72449, [id number], [id number] of left kidney, chronic infection Left kidney [...] margins; A2, area of dense insertion; A3-A8, customer development representative sections of area of dense adhesions at possible UPJ; A9-A16, customer development representative sections of pelvis and caliceal system; A17-A18, customer development representative sections of renal parenchyma; A19-A21, one bisected lymph node in each cut surface; A22-A28, one serially sectioned lymph node. DB/ewPerformed.The following special studies were performed on this case and the interpretation is incorporated in the diagnostic report above:BLOCK A20- CK7, CK20, PAX8, ER, KI-67BLOCK A21- CK7, CK20, PAX8, KI-67The immunohistochemistry test was developed and its performance characteristics determined by [facility], Pathology Laboratory. It has not been [...] Value Reference Range Comments CULTURE (BEAKER) (test mvfl=8288) No growth in 5 days POCT-GLUCOSE [id number] 07:56:00 Test Item Value Reference Range Comments POC-GLUCOSE METER (BEAKER) 287 mg/dL 70-110 TESTED AT [facility] [address] [facility] (test shib=8315) [facility] [address] BASIC METABOLIC [id number] 07:51:00 Test Item Value Reference Range Comments SODIUM (BEAKER) (test 138 meq/L 136-145 vkvn=424) POTASSIUM (BEAKER) (test 4.0 meq/L 3.5-5.1 jzdr=821) CHLORIDE (BEAKER) (test 105 meq/L 98-107 cabd=929) CO2 (BEAKER) (test 24 meq/L 22-29 uusv=045) BLOOD UREA NITROGEN 9 mg/dL 7-21 (BEAKER) (test uudo=618) CREATININE (BEAKER) (test 1.01 mg/dL 0.57-1.25 tffe=225) GLUCOSE RANDOM (BEAKER) 215 mg/dL 70-105 (test jxsw=873) CALCIUM (BEAKER) (test 9.0 mg/dL 8.4-10.2 lfmb=419) EGFR (BEAKER) (test 56 mL/min/1.73 sq m ESTIMATED GFR IS NOT imlz=9914) ACCURATE CREATININE CLEARANCE IN PREDICTING GLOMERULAR FILTRATION RATE. ESTIMATED GFR IS NOT APPLICABLE FOR DIALYSIS PATIENTS. CBC W/PLT COUNT & AUTO [id number] 05:57:00 Test Item Value Reference Range Comments WHITE BLOOD CELL COUNT (BEAKER) (test xqml=465) 10.0 K/ L 3.5-10.5 RED BLOOD CELL COUNT (BEAKER) (test cdeg=458) 3.72 M/ L 3.93-5.22 HEMOGLOBIN (BEAKER) (test pyak=140) 10.1 GM/DL 11.2-15.7 HEMATOCRIT (BEAKER) (test ncpm=584) 32.5 % 34.1-44.9 MEAN CORPUSCULAR VOLUME (BEAKER) (test mmyf=759) 87.4 fL 79.4-94.8 MEAN CORPUSCULAR HEMOGLOBIN (BEAKER) (test 27.2 pg 25.6-32.2 wasc=663) MEAN CORPUSCULAR HEMOGLOBIN CONC (BEAKER) (test 31.1 GM/DL 32.2-35.5 bgtd=837) RED CELL DISTRIBUTION WIDTH (BEAKER) (test 13.7 % 11.7-14.4 fsaa=791) PLATELET COUNT (BEAKER) (test ugov=760) 290 K/CU MM 150-450 MEAN PLATELET VOLUME (BEAKER) (test ztda=586) 8.7 fL 9.4-12.3 NUCLEATED RED BLOOD CELLS (BEAKER) (test 0 /100 WBC 0-0 ftzf=888) NEUTROPHILS RELATIVE PERCENT (BEAKER) (test 68 % ngqo=733) LYMPHOCYTES RELATIVE PERCENT (BEAKER) (test 16 % szyu=952) MONOCYTES RELATIVE PERCENT (BEAKER) (test 11 % pfpq=521) EOSINOPHILS RELATIVE PERCENT (BEAKER) (test 3 % vqyz=979) BASOPHILS RELATIVE PERCENT (BEAKER) (test 1 % epho=537) NEUTROPHILS ABSOLUTE COUNT (BEAKER) (test 6.82 K/ L 1.56-6.13 ubip=231) LYMPHOCYTES ABSOLUTE COUNT (BEAKER) (test 1.56 K/ L 1.18-3.74 doul=601) MONOCYTES ABSOLUTE COUNT (BEAKER) (test 1.13 K/ L 0.24-0.36 ohef=914) EOSINOPHILS ABSOLUTE COUNT (BEAKER) (test 0.28 K/ L 0.04-0.36 iqfu=758) BASOPHILS ABSOLUTE COUNT (BEAKER) (test 0.05 K/ L 0.01-0.08 tgmq=272) IMMATURE GRANULOCYTES-RELATIVE PERCENT (BEAKER) 2 % 0-1 (test uqlb=4992) POCT-GLUCOSE [id number] 21:03:00 Test Item Value Reference Range Comments POC-GLUCOSE METER (BEAKER) 166 mg/dL 70-110 TESTED AT [address] (test zins=4070) [facility] [address] POCT-GLUCOSE [id number] 18:19:00 Test Item Value Reference Range Comments POC-GLUCOSE METER (BEAKER) 199 mg/dL 70-110 TESTED AT [address] (test bitw=9993) [facility] [address] POCT-GLUCOSE [id number] 12:08:00 Test Item Value Reference Range Comments POC-GLUCOSE METER (BEAKER) 160 mg/dL 70-110 TESTED AT [facility] [address] [facility] (test axwf=9761) [facility] [address] POCT-GLUCOSE [id number] 09:10:00 Test Item Value Reference Range Comments POC-GLUCOSE METER (BEAKER) 170 mg/dL 70-110 TESTED AT [facility] [address] [facility] (test nbdg=0905) [facility] [address] BASIC METABOLIC [id number] 07:03:00 Test Item Value Reference Range Comments SODIUM (BEAKER) (test 135 meq/L 136-145 sqjr=274) POTASSIUM (BEAKER) (test 4.0 meq/L 3.5-5.1 niej=623) CHLORIDE (BEAKER) (test 105 meq/L 98-107 ixzp=566) CO2 (BEAKER) (test 21 meq/L 22-29 ufuu=331) BLOOD UREA NITROGEN 11 mg/dL 7-21 (BEAKER) (test tobs=770) CREATININE (BEAKER) (test 0.83 mg/dL 0.57-1.25 zfbd=553) GLUCOSE RANDOM (BEAKER) 139 mg/dL 70-105 (test yifo=418) CALCIUM (BEAKER) (test 8.5 mg/dL 8.4-10.2 vzlh=028) EGFR (BEAKER) (test 71 mL/min/1.73 sq m ESTIMATED GFR IS NOT ehhp=9540) ACCURATE CREATININE CLEARANCE IN PREDICTING GLOMERULAR FILTRATION RATE. ESTIMATED GFR IS NOT APPLICABLE FOR DIALYSIS PATIENTS. CBC W/PLT COUNT & AUTO [id number] 06:26:00 Test Item Value Reference Range Comments WHITE BLOOD CELL COUNT (BEAKER) (test lwzy=937) 11.8 K/ L 3.5-10.5 RED BLOOD CELL COUNT (BEAKER) (test zuld=813) 3.52 M/ L 3.93-5.22 HEMOGLOBIN (BEAKER) (test yegv=939) 9.7 GM/DL 11.2-15.7 HEMATOCRIT (BEAKER) (test ebcf=354) 30.7 % 34.1-44.9 MEAN CORPUSCULAR VOLUME (BEAKER) (test zpeq=953) 87.2 fL 79.4-94.8 MEAN CORPUSCULAR HEMOGLOBIN (BEAKER) (test 27.6 pg 25.6-32.2 bxam=611) MEAN CORPUSCULAR HEMOGLOBIN CONC (BEAKER) (test 31.6 GM/DL 32.2-35.5 tvfl=461) RED CELL DISTRIBUTION WIDTH (BEAKER) (test 13.7 % 11.7-14.4 zpec=550) PLATELET COUNT (BEAKER) (test nyov=274) 239 K/CU MM 150-450 MEAN PLATELET VOLUME (BEAKER) (test izbe=228) 8.6 fL 9.4-12.3 NUCLEATED RED BLOOD CELLS (BEAKER) (test 0 /100 WBC 0-0 gorl=517) NEUTROPHILS RELATIVE PERCENT (BEAKER) (test 75 % akrv=980) LYMPHOCYTES RELATIVE PERCENT (BEAKER) (test 13 % qaeo=346) MONOCYTES RELATIVE PERCENT (BEAKER) (test 10 % nbws=520) EOSINOPHILS RELATIVE PERCENT (BEAKER) (test 1 % pplg=277) BASOPHILS RELATIVE PERCENT (BEAKER) (test 0 % bbwd=136) NEUTROPHILS ABSOLUTE COUNT (BEAKER) (test 8.87 K/ L 1.56-6.13 ljgy=431) LYMPHOCYTES ABSOLUTE COUNT (BEAKER) (test 1.50 K/ L 1.18-3.74 vlvb=325) MONOCYTES ABSOLUTE COUNT (BEAKER) (test 1.12 K/ L 0.24-0.36 lkul=208) EOSINOPHILS ABSOLUTE COUNT (BEAKER) (test 0.16 K/ L 0.04-0.36 tgyq=696) BASOPHILS ABSOLUTE COUNT (BEAKER) (test 0.03 K/ L 0.01-0.08 kaus=525) IMMATURE GRANULOCYTES-RELATIVE PERCENT (BEAKER) 1 % 0-1 (test rcay=1183) POCT-GLUCOSE [id number] 20:55:00 Test Item Value Reference Range Comments POC-GLUCOSE METER (BEAKER) 219 mg/dL 70-110 TESTED AT [facility] [address] [facility] (test wieb=5190) [facility] [address] BASIC METABOLIC [id number] 13:42:00 Test Item Value Reference Range Comments SODIUM (BEAKER) (test 141 meq/L 136-145 cznd=495) POTASSIUM (BEAKER) (test 4.5 meq/L 3.5-5.1 Specimen slightly ptbz=922) hemolyzed CHLORIDE (BEAKER) (test 109 meq/L 98-107 jxqd=014) CO2 (BEAKER) (test 22 meq/L 22-29 mxen=430) BLOOD UREA NITROGEN 9 mg/dL 7-21 (BEAKER) (test wqrm=820) CREATININE (BEAKER) (test 0.97 mg/dL 0.57-1.25 Specimen slightly zmha=504) hemolyzed GLUCOSE RANDOM (BEAKER) 229 mg/dL 70-105 (test ykcd=403) CALCIUM (BEAKER) (test 8.9 mg/dL 8.4-10.2 fytd=521) EGFR (BEAKER) (test 59 mL/min/1.73 sq m ESTIMATED GFR IS NOT ahqk=5544) ACCURATE CREATININE CLEARANCE IN PREDICTING GLOMERULAR FILTRATION RATE. ESTIMATED GFR IS NOT APPLICABLE FOR DIALYSIS PATIENTS. HEMOGLOBIN AND [id number] 13:15:00 Test Item Value Reference Range Comments HEMOGLOBIN (BEAKER) (test quct=450) 10.8 GM/DL 11.2-15.7 HEMATOCRIT (BEAKER) (test hpck=131) 34.0 % 34.1-44.9 URINE [id number] 10:10:00 Test Item Value Reference Range Comments CULTURE (BEAKER) (test See comment 70-79,000 col/mL Beronica scom=9173) albicans CALCIUM, [id number] 10:01:00 Test Item Value Reference Range Comments CALCIUM IONIZED (BEAKER) (test wsgk=703) 1.09 mmol/L 1.12-1.27 PH, BLOOD (BEAKER) (test xeup=0427) 7.38 BLOOD GAS, [id number] 10:01:00 Test Item Value Reference Range Comments PH ARTERIAL (BEAKER) (test lvrc=104) 7.38 7.35-7.45 PCO2 ARTERIAL (BEAKER) (test bmgf=801) 43 mmHg 35-45 PO2 ARTERIAL (BEAKER) (test ugeu=023) 82 mmHg 80-90 O2 SATURATION ARTERIAL (BEAKER) (test ezma=993) 95.8 % 96.0-97.0 HCO3 ARTERIAL (BEAKER) (test aosc=144) 25 mmol/L 21-29 BASE EXCESS ARTERIAL (BEAKER) (test lcuw=253) -0.7 mmol/L -2.0-3.0 PATIENT TEMPERATURE (BEAKER) (test bbcz=2501) 37.0 C FIO2 (BEAKER) (test nbpb=4299) 100.0 % SODIUM NA-STAT [id number] 10:01:00 Test Item Value Reference Range Comments SODIUM (BEAKER) (test lvvf=346) 134 meq/L 135-148 GLUCOSE-STAT [id number] 10:01:00 Test Item Value Reference Range Comments GLUCOSE RANDOM (BEAKER) (test dvfx=993) 192 mg/dL 70-110 HGB/HCT (H&H) - STAT [id number] 10:01:00 Test Item Value Reference Range Comments HEMOGLOBIN (BEAKER) (test fgzn=760) 11.7 g/dL 12.0-15.0 HEMATOCRIT (BEAKER) (test ygzp=357) 34.0 % 36.0-45.0 POTASSIUM-STAT [id number] 09:56:00 Test Item Value Reference Range Comments POTASSIUM (BEAKER) (test ehvr=892) 4.0 meq/L 3.6-5.5 LACTIC ACID, VENOUS, WHOLE [id number] 06:39:00 Test Item Value Reference Range Comments LACTATE BLOOD VENOUS (2) 0.7 mmol/L 0.5-2.2 Specimen slightly hemolyzed (BEAKER) (test kctq=8988) Effective 12/16/2015: Units/Reference Range ChangeNew: 0.5-2.2 mmol/L Previous: 5 -20 mg/[id number] 06:36:00 Test Item Value Reference Range Comments PHOSPHORUS (BEAKER) (test noum=768) 3.7 mg/dL 2.3-4.7 [id number] 06:36:00 Test Item Value Reference Range Comments MAGNESIUM (BEAKER) (test sxlk=233) 1.6 mg/dL 1.6-2.6 BASIC METABOLIC [id number] 06:36:00 Test Item Value Reference Range Comments SODIUM (BEAKER) (test 135 meq/L 136-145 gbfm=869) POTASSIUM (BEAKER) (test 4.0 meq/L 3.5-5.1 whti=387) CHLORIDE (BEAKER) (test 102 meq/L 98-107 iims=938) CO2 (BEAKER) (test 22 meq/L 22-29 kxmq=274) BLOOD UREA NITROGEN 9 mg/dL 7-21 (BEAKER) (test pumk=210) CREATININE (BEAKER) (test 0.95 mg/dL 0.57-1.25 lgbh=242) GLUCOSE RANDOM (BEAKER) 181 mg/dL 70-105 (test ovze=188) CALCIUM (BEAKER) (test 9.5 mg/dL 8.4-10.2 lpan=882) EGFR (BEAKER) (test 61 mL/min/1.73 sq m ESTIMATED GFR IS NOT vdng=8563) ACCURATE CREATININE CLEARANCE IN PREDICTING GLOMERULAR FILTRATION RATE. ESTIMATED GFR IS NOT APPLICABLE FOR DIALYSIS PATIENTS. POCT-GLUCOSE [id number] 21:05:00 Test Item Value Reference Range Comments POC-GLUCOSE METER (BEAKER) 215 mg/dL 70-110 TESTED AT [address] (test irkg=2903) [place] [address] POCT-GLUCOSE [id number] 17:48:00 Test Item Value Reference Range Comments POC-GLUCOSE METER (BEAKER) 150 mg/dL 70-110 TESTED AT [address] (test xfnw=6013) [place] [address] POCT-GLUCOSE [id number] 12:00:00 Test Item Value Reference Range Comments POC-GLUCOSE METER (BEAKER) 204 mg/dL 70-110 TESTED AT [address] (test pdgf=1579) [place] [address] URINE [id number] 08:15:00 Test Item Value Reference Range Comments CULTURE (BEAKER) (test 40-49,000 col/mL skin mckenna bpej=7799) POCT-GLUCOSE [id number] 07:41:00 Test Item Value Reference Range Comments POC-GLUCOSE METER (BEAKER) 154 mg/dL 70-110 TESTED AT [address] (test cqsq=5855) [place] [address] [id number] 04:29:00 Test Item Value Reference Range Comments PHOSPHORUS (BEAKER) (test dshk=981) 3.2 mg/dL 2.3-4.7 [id number] 04:29:00 Test Item Value Reference Range Comments MAGNESIUM (BEAKER) (test wzfd=117) 1.6 mg/dL 1.6-2.6 BASIC METABOLIC [id number] 04:29:00 Test Item Value Reference Range Comments SODIUM (BEAKER) (test 132 meq/L 136-145 cbdj=820) POTASSIUM (BEAKER) (test 4.3 meq/L 3.5-5.1 fqhl=939) CHLORIDE (BEAKER) (test 102 meq/L 98-107 uqve=852) CO2 (BEAKER) (test 23 meq/L 22-29 hoqw=283) BLOOD UREA NITROGEN 14 mg/dL 7-21 (BEAKER) (test qvbb=129) CREATININE (BEAKER) (test 1.01 mg/dL 0.57-1.25 ywan=514) GLUCOSE RANDOM (BEAKER) 186 mg/dL 70-105 (test hafy=285) CALCIUM (BEAKER) (test 9.3 mg/dL 8.4-10.2 kocj=992) EGFR (BEAKER) (test 56 mL/min/1.73 sq m ESTIMATED GFR IS NOT jtmb=2321) ACCURATE CREATININE CLEARANCE IN PREDICTING GLOMERULAR FILTRATION RATE. ESTIMATED GFR IS NOT APPLICABLE FOR DIALYSIS PATIENTS. LACTIC ACID, VENOUS, WHOLE [id number] 04:27:00 Test Item Value Reference Range Comments LACTATE BLOOD VENOUS (2) (BEAKER) (test 0.7 mmol/L 0.5-2.2 odsv=1408) Effective 12/16/2015: Units/Reference Range ChangeNew: 0.5-2.2 mmol/L Previous: 5 -20 mg/dLCBC W/PLT COUNT & AUTO [id number] 04:11:00 Test Item Value Reference Range Comments WHITE BLOOD CELL COUNT (BEAKER) (test vmhr=683) 13.9 K/ L 3.5-10.5 RED BLOOD CELL COUNT (BEAKER) (test uafg=594) 4.13 M/ L 3.93-5.22 HEMOGLOBIN (BEAKER) (test tzjd=416) 11.6 GM/DL 11.2-15.7 HEMATOCRIT (BEAKER) (test cfyf=937) 35.7 % 34.1-44.9 MEAN CORPUSCULAR VOLUME (BEAKER) (test yeys=188) 86.4 fL 79.4-94.8 MEAN CORPUSCULAR HEMOGLOBIN (BEAKER) (test 28.1 pg 25.6-32.2 sphn=710) MEAN CORPUSCULAR HEMOGLOBIN CONC (BEAKER) (test 32.5 GM/DL 32.2-35.5 pknh=702) RED CELL DISTRIBUTION WIDTH (BEAKER) (test 13.8 % 11.7-14.4 xzfn=816) PLATELET COUNT (BEAKER) (test yyjw=889) 266 K/CU MM 150-450 MEAN PLATELET VOLUME (BEAKER) (test aepb=041) 8.6 fL 9.4-12.3 NUCLEATED RED BLOOD CELLS (BEAKER) (test 0 /100 WBC 0-0 vugw=666) NEUTROPHILS RELATIVE PERCENT (BEAKER) (test 77 % zwma=765) LYMPHOCYTES RELATIVE PERCENT (BEAKER) (test 11 % jemz=743) MONOCYTES RELATIVE PERCENT (BEAKER) (test 10 % ujto=388) EOSINOPHILS RELATIVE PERCENT (BEAKER) (test 1 % yjqq=377) BASOPHILS RELATIVE PERCENT (BEAKER) (test 0 % kfin=397) NEUTROPHILS ABSOLUTE COUNT (BEAKER) (test 10.67 K/ L 1.56-6.13 trco=569) LYMPHOCYTES ABSOLUTE COUNT (BEAKER) (test 1.55 K/ L 1.18-3.74 staa=752) MONOCYTES ABSOLUTE COUNT (BEAKER) (test 1.31 K/ L 0.24-0.36 smeb=241) EOSINOPHILS ABSOLUTE COUNT (BEAKER) (test 0.15 K/ L 0.04-0.36 ofaj=285) BASOPHILS ABSOLUTE COUNT (BEAKER) (test 0.03 K/ L 0.01-0.08 uojw=554) IMMATURE GRANULOCYTES-RELATIVE PERCENT (BEAKER) 1 % 0-1 (test fdbt=6044) POCT-GLUCOSE [id number] 22:31:00 Test Item Value Reference Range Comments POC-GLUCOSE METER (BEAKER) 206 mg/dL 70-110 TESTED AT [facility] [address] [facility] (test ewlw=7666) [facility] [address] POCT-GLUCOSE [id number] 17:31:00 Test Item Value Reference Range Comments POC-GLUCOSE METER (BEAKER) 207 mg/dL 70-110 TESTED AT [place] [id number] [facility] (test qtjw=8913) [facility] [address] ANG, NEPHROSTOMY, PERC, EXTERNAL [id number] 14:49:00Reason for exam:-> Needs left nephrostomy tube. [...] needle. The tract was dilated to 8 Dominican. A small bore catheter was advanced into [...] Esquiveleppauly Verified Date/Time: 11/28/2017 14:49:28 Reading Location: [address] Body Reading Room 02:49 PMPOCT-GLUCOSE [id number] 11:01:00 Test Item Value Reference Range Comments POC-GLUCOSE METER (BEAKER) 195 mg/dL 70-110 TESTED AT [address] (test xeak=9811) [facility] [address] POCT-LACTIC ACID, [id number] 04:41:00 Test Item Value Reference Range Comments POC-LACTIC ACID, VENOUS 1.2 mmol/L 0.9-1.7 TESTED AT [address] (BEAKER) (test zuqi=7448) [facility] [address] LEGIONELLA ANTIGEN, [id number] 04:06:00 Test Item Value Reference Range Comments L. PNEUMOPHILA SEROGP 1 Negative - see Negative for L. UR AG (BEAKER) (test comment pneumophila serogroup 1 uoop=5193) antigen, suggesting no recent or current infection with this serogroup. Legionellosis cannot be ruled out since other serogroups and species may cause disease. STREP PNEUMONIAE [id number] 04:04:00 Test Item Value Reference Range Comments STREP PNEUMONIAE ANTIGEN Presumptive negative for Presumptive negative for (BEAKER) (test pneumococcal pneumonia - pneumococcal pneumonia - huem=7059) see comment see commen Presumptive negative for pneumococcal pneumonia, suggesting no current or recent pneumococcal infection. Infection due to S. pneumoniae cannot be ruled out since the antigen present in the sample may be below the detection limit of the test.PROTHROMBIN [id number] 02:58:00 Test Item Value Reference Range Comments PROTIME (BEAKER) (test lfid=174) 14.1 seconds 11.7-14.7 INR (BEAKER) (test gmlh=347) 1.1 <=5.9 RECOMMENDED COUMADIN/WARFARIN INR THERAPY RANGESSTANDARD DOSE: 2.0 - 3.0 Includes: PROPHYLAXIS forvenous thrombosis, systemic embolization; TREATMENT for venous thrombosis and/or pulmonary embolus.HIGH RISK: Target INR is 2.5-3.5 for patients with mechanical heart valves.[id number] 02:56:00 Test Item Value Reference Range Comments PHOSPHORUS (BEAKER) (test puoo=237) 3.2 mg/dL 2.3-4.7 [id number] 02:56:00 Test Item Value Reference Range Comments MAGNESIUM (BEAKER) (test fkqp=058) 1.9 mg/dL 1.6-2.6 HEPATIC FUNCTION [id number] 02:56:00 Test Item Value Reference Range Comments TOTAL PROTEIN (BEAKER) (test eorv=609) 7.7 gm/dL 6.0-8.3 ALBUMIN (BEAKER) (test qtst=1712) 3.9 g/dL 3.5-5.0 BILIRUBIN TOTAL (BEAKER) (test hwld=400) 0.3 mg/dL 0.2-1.2 BILIRUBIN DIRECT (BEAKER) (test iryi=380) 0.2 mg/dL 0.1-0.5 ALKALINE PHOSPHATASE (BEAKER) (test lypc=959) 113 U/L 40-150 AST (SGOT) (BEAKER) (test enbx=667) 10 U/L 5-34 ALT (SGPT) (BEAKER) (test kzwn=727) 17 U/L 6-55 BASIC METABOLIC [id number] 02:30:00 Test Item Value Reference Range Comments SODIUM (BEAKER) (test 133 meq/L 136-145 gdah=693) POTASSIUM (BEAKER) (test 4.5 meq/L 3.5-5.1 ecnx=650) CHLORIDE (BEAKER) (test 97 meq/L 98-107 luwv=490) CO2 (BEAKER) (test 25 meq/L 22-29 jbpd=366) BLOOD UREA NITROGEN 18 mg/dL 7-21 (BEAKER) (test sssk=891) CREATININE (BEAKER) (test 1.32 mg/dL 0.57-1.25 ohxl=776) GLUCOSE RANDOM (BEAKER) 187 mg/dL 70-105 (test osjn=820) CALCIUM (BEAKER) (test 10.1 mg/dL 8.4-10.2 aptt=334) EGFR (BEAKER) (test 41 mL/min/1.73 sq m ESTIMATED GFR IS NOT lbvn=8971) ACCURATE CREATININE CLEARANCE IN PREDICTING GLOMERULAR FILTRATION RATE. ESTIMATED GFR IS NOT APPLICABLE FOR DIALYSIS PATIENTS. LACTIC ACID, VENOUS, WHOLE [id number] 02:26:00 Test Item Value Reference Range Comments LACTATE BLOOD VENOUS (2) (BEAKER) (test 1.3 mmol/L 0.5-2.2 gqmp=2976) Effective 12/16/2015: Units/Reference Range ChangeNew: 0.5-2.2 mmol/L Previous: 5 -20 mg/dLCBC W/PLT COUNT & AUTO [id number] 02:17:00 Test Item Value Reference Range Comments WHITE BLOOD CELL COUNT (BEAKER) (test rkax=585) 14.2 K/ L 3.5-10.5 RED BLOOD CELL COUNT (BEAKER) (test lfwn=243) 4.61 M/ L 3.93-5.22 HEMOGLOBIN (BEAKER) (test owhr=601) 12.9 GM/DL 11.2-15.7 HEMATOCRIT (BEAKER) (test pphx=666) 39.5 % 34.1-44.9 MEAN CORPUSCULAR VOLUME (BEAKER) (test aabh=044) 85.7 fL 79.4-94.8 MEAN CORPUSCULAR HEMOGLOBIN (BEAKER) (test 28.0 pg 25.6-32.2 duos=024) MEAN CORPUSCULAR HEMOGLOBIN CONC (BEAKER) (test 32.7 GM/DL 32.2-35.5 aquu=358) RED CELL DISTRIBUTION WIDTH (BEAKER) (test 13.7 % 11.7-14.4 bksc=434) PLATELET COUNT (BEAKER) (test hjhu=197) 342 K/CU MM 150-450 MEAN PLATELET VOLUME (BEAKER) (test bguf=443) 8.5 fL 9.4-12.3 NUCLEATED RED BLOOD CELLS (BEAKER) (test 0 /100 WBC 0-0 amco=853) NEUTROPHILS RELATIVE PERCENT (BEAKER) (test 62 % nxaz=933) LYMPHOCYTES RELATIVE PERCENT (BEAKER) (test 25 % pqbt=517) MONOCYTES RELATIVE PERCENT (BEAKER) (test 9 % flfv=093) EOSINOPHILS RELATIVE PERCENT (BEAKER) (test 2 % rubu=740) BASOPHILS RELATIVE PERCENT (BEAKER) (test 1 % pdiq=505) NEUTROPHILS ABSOLUTE COUNT (BEAKER) (test 8.79 K/ L 1.56-6.13 ojth=584) LYMPHOCYTES ABSOLUTE COUNT (BEAKER) (test 3.54 K/ L 1.18-3.74 akee=583) MONOCYTES ABSOLUTE COUNT (BEAKER) (test 1.31 K/ L 0.24-0.36 puoo=408) EOSINOPHILS ABSOLUTE COUNT (BEAKER) (test 0.25 K/ L 0.04-0.36 twow=946) BASOPHILS ABSOLUTE COUNT (BEAKER) (test 0.08 K/ L 0.01-0.08 qbpl=588) IMMATURE GRANULOCYTES-RELATIVE PERCENT (BEAKER) 2 % 0-1 (test gcke=6473) POCT-LACTIC ACID, [id number] 02:01:00 Test Item Value Reference Range Comments POC-LACTIC ACID, VENOUS 2.9 mmol/L 0.9-1.7 TESTED AT [place] [address] [address] (BEAKER) (test tkhr=1784) [facility] [address] [address], [id number] 00:55:00Addendum BeginsREPORT STATUS:A Addendum: Benign as well as neoplastic processes would be included in differential diagnosis for the left UPJ level obstruction. Results including the possibility of an infected obstructed left renal collecting system discussed with Dr. Singh. Signed: Kimberlyn Arellano MDReport Verified Date/Time: 11/28/2017 00:55:04 Reading Location: [address] Reading RoomAddendum EndsFINAL REPORT EXAMINATION: CT [...] Arellano MDReport Verified Date/Time:11/28/2017 00:48:48 Reading Location: [address] Reading Room URINALYSIS W/ [id number] 00:09:00 Test Item Value Reference Range Comments COLOR (BEAKER) (test cyow=617) Yellow CLARITY (BEAKER) (test npcn=080) Hazy SPECIFIC GRAVITY UA (BEAKER) (test 1.011 1.001-1.035 hvom=981) PH UA (BEAKER) (test pgjb=421) 6.0 5.0-8.0 PROTEIN UA (BEAKER) (test ruap=042) 10 mg/dL Negative GLUCOSE UA (BEAKER) (test mvkb=304) Negative Negative KETONES UA (BEAKER) (test sksc=208) Negative Negative BILIRUBIN UA (BEAKER) (test mhic=592) Negative Negative BLOOD UA (BEAKER) (test njjs=290) Small Negative NITRITE UA (BEAKER) (test gvmg=225) Negative Negative LEUKOCYTE ESTERASE UA (BEAKER) (test Large Negative mnog=938) UROBILINOGEN UA (BEAKER) (test ufuo=034) 0.2 mg/dL 0.2-1.0 RBC UA (BEAKER) (test cmae=224) 26 /HPF WBC UA (BEAKER) (test snkn=584) 80 /HPF BACTERIA (BEAKER) (test pqqq=559) Rare SQUAMOUS EPITHELIAL (BEAKER) (test 1 /HPF sode=779) AMORPHOUS CRYSTALS (BEAKER) (test Rare ouqg=3229) SOURCE(BEAKER) (test wlfu=5429) Urine, Clean Catch BLOOD [id number] 17:00:00 Test Item Value Reference Range Comments CULTURE (BEAKER) (test drpi=1509) No growth in 5 days BLOOD [id number] 15:30:00 Test Item Value Reference Range Comments CULTURE (BEAKER) From Aerobic Bottle Only (test uayq=6505) Coagulase negative Staphylococcus GRAM STAIN RESULT From aerobic bottle (BEAKER) (test only: gram positive enhm=9304) cocci in clusters Coagulase Negative Staphylococcus Species [...] required. This sample was tested at the [facility] Clinical [facility] using the [employer] Blood Culture ID Panel.This test is FDA cleared for in vitro diagnostic use and has been verified and approved [facility]. Reference Range: Not DetectedBLOOD [id number] 23:00:00 Test Item Value Reference Range Comments CULTURE (BEAKER) (test lazq=7908) No growth in 5 days MISCELLANEOUS LAB [id number] 14:42:00 Test Item Value Reference Range Comments SCAN RESULT (test [id number]) Result comments: Coagulase Negative Staphylococcus Species (CoNS) [...] required. This sample was tested at the [facility] using the [employer] Film[employer] Blood Culture ID Panel. This test is FDA cleared for in vitro diagnostic use and has been verified and approved by the [facility] Clinical Microbiology laboratory for clinical use. Reference Range: Not DetectedPOCT-GLUCOSE [id number] 13:10:00 Test Item Value Reference Range Comments POC-GLUCOSE METER (BEAKER) 196 mg/dL 70-110 TESTED AT [address] (test wmlr=5672) [place] [address] URINE [id number] 11:19:00 Test Item Value Reference Range Comments CULTURE (BEAKER) (test >100,000 col/mL Beronica albicans xzvr=3188) <10,000 col/mL skin floraPOCT-GLUCOSE [id number] 07:50:00 Test Item Value Reference Range Comments POC-GLUCOSE METER (BEAKER) 190 mg/dL 70-110 TESTED AT [address] (test duiy=2869) [place] [address] [id number] 06:18:00 Test Item Value Reference Range Comments PHOSPHORUS (BEAKER) (test lhra=253) 3.3 mg/dL 2.3-4.7 [id number] 06:18:00 Test Item Value Reference Range Comments MAGNESIUM (BEAKER) (test dzur=575) 1.4 mg/dL 1.6-2.6 BASIC METABOLIC [id number] 06:18:00 Test Item Value Reference Range Comments SODIUM (BEAKER) (test 138 meq/L 136-145 zzjb=606) POTASSIUM (BEAKER) (test 3.6 meq/L 3.5-5.1 actn=339) CHLORIDE (BEAKER) (test 105 meq/L 98-107 ddxr=094) CO2 (BEAKER) (test 23 meq/L 22-29 negd=936) BLOOD UREA NITROGEN 17 mg/dL 7-21 (BEAKER) (test oxmb=764) CREATININE (BEAKER) (test 1.55 mg/dL 0.57-1.25 jcpe=862) GLUCOSE RANDOM (BEAKER) 158 mg/dL 70-105 (test bzan=810) CALCIUM (BEAKER) (test 8.5 mg/dL 8.4-10.2 qspj=793) EGFR (BEAKER) (test 35 mL/min/1.73 sq m ESTIMATED GFR IS NOT odaz=7388) ACCURATE CREATININE CLEARANCE IN PREDICTING GLOMERULAR FILTRATION RATE. ESTIMATED GFR IS NOT APPLICABLE FOR DIALYSIS PATIENTS. CBC W/PLT COUNT & AUTO [id number] 06:01:00 Test Item Value Reference Range Comments WHITE BLOOD CELL COUNT (BEAKER) (test iknv=480) 12.9 K/ L 3.5-10.5 RED BLOOD CELL COUNT (BEAKER) (test jnzk=162) 3.78 M/ L 3.93-5.22 HEMOGLOBIN (BEAKER) (test dpav=062) 10.6 GM/DL 11.2-15.7 HEMATOCRIT (BEAKER) (test kqqf=989) 32.7 % 34.1-44.9 MEAN CORPUSCULAR VOLUME (BEAKER) (test fuur=122) 86.5 fL 79.4-94.8 MEAN CORPUSCULAR HEMOGLOBIN (BEAKER) (test 28.0 pg 25.6-32.2 atzf=880) MEAN CORPUSCULAR HEMOGLOBIN CONC (BEAKER) (test 32.4 GM/DL 32.2-35.5 cdax=879) RED CELL DISTRIBUTION WIDTH (BEAKER) (test 14.8 % 11.7-14.4 dzvm=565) PLATELET COUNT (BEAKER) (test dckm=206) 348 K/CU MM 150-450 MEAN PLATELET VOLUME (BEAKER) (test vtlp=591) 9.1 fL 9.4-12.3 NUCLEATED RED BLOOD CELLS (BEAKER) (test 0 /100 WBC 0-0 nlpz=065) NEUTROPHILS RELATIVE PERCENT (BEAKER) (test 57 % vpip=335) LYMPHOCYTES RELATIVE PERCENT (BEAKER) (test 19 % sodd=149) MONOCYTES RELATIVE PERCENT (BEAKER) (test 13 % ccso=276) EOSINOPHILS RELATIVE PERCENT (BEAKER) (test 4 % bdrg=762) BASOPHILS RELATIVE PERCENT (BEAKER) (test 1 % ebna=626) NEUTROPHILS ABSOLUTE COUNT (BEAKER) (test 7.34 K/ L 1.56-6.13 yrsn=457) LYMPHOCYTES ABSOLUTE COUNT (BEAKER) (test 2.48 K/ L 1.18-3.74 szla=463) MONOCYTES ABSOLUTE COUNT (BEAKER) (test 1.68 K/ L 0.24-0.36 yyad=488) EOSINOPHILS ABSOLUTE COUNT (BEAKER) (test 0.56 K/ L 0.04-0.36 ootj=900) BASOPHILS ABSOLUTE COUNT (BEAKER) (test 0.08 K/ L 0.01-0.08 yklx=269) IMMATURE GRANULOCYTES-RELATIVE PERCENT (BEAKER) 6 % 0-1 (test nvvc=4104) POCT-GLUCOSE [id number] 21:08:00 Test Item Value Reference Range Comments POC-GLUCOSE METER (BEAKER) 157 mg/dL 70-110 TESTED AT [address] (test pfiw=6244) [place] [address] POCT-GLUCOSE [id number] 11:59:00 Test Item Value Reference Range Comments POC-GLUCOSE METER (BEAKER) 151 mg/dL 70-110 TESTED AT [address] (test nvmz=4824) [place] [id number] CBC W/PLT COUNT & AUTO [id number] 11:31:00 Test Item Value Reference Range Comments WHITE BLOOD CELL COUNT (BEAKER) (test fdnq=574) 11.6 K/ L 3.5-10.5 RED BLOOD CELL COUNT (BEAKER) (test aymb=286) 3.72 M/ L 3.93-5.22 HEMOGLOBIN (BEAKER) (test fmdo=566) 10.3 GM/DL 11.2-15.7 HEMATOCRIT (BEAKER) (test tyfe=567) 32.2 % 34.1-44.9 MEAN CORPUSCULAR VOLUME (BEAKER) (test mlea=155) 86.6 fL 79.4-94.8 MEAN CORPUSCULAR HEMOGLOBIN (BEAKER) (test 27.7 pg 25.6-32.2 cdsv=574) MEAN CORPUSCULAR HEMOGLOBIN CONC (BEAKER) (test 32.0 GM/DL 32.2-35.5 urdg=510) RED CELL DISTRIBUTION WIDTH (BEAKER) (test 14.7 % 11.7-14.4 hwrj=260) PLATELET COUNT (BEAKER) (test tnsv=782) 281 K/CU MM 150-450 MEAN PLATELET VOLUME (BEAKER) (test niot=614) 9.1 fL 9.4-12.3 NUCLEATED RED BLOOD CELLS (BEAKER) (test 0 /100 WBC 0-0 jcdh=091) IMMATURE GRANULOCYTES-RELATIVE PERCENT (BEAKER) 5 % 0-1 (test bgya=7782) (MANUAL DIFFERENTIAL)[id number] 11:31:00 Test Item Value Reference Range Comments NEUTROPHILS - REL (DIFF) (BEAKER) (test owbp=3754) 60 % LYMPHOCYTES - REL (DIFF) (BEAKER) (test bhyn=0778) 21 % MONOCYTES - REL (DIFF) (BEAKER) (test ctat=9712) 13 % EOSINOPHILS - REL (DIFF) (BEAKER) (test fdcf=9161) 1 % BASOPHILS - REL (DIFF) (BEAKER) (test icdy=9591) 0 % METAMYELOCYTES-REL (DIFF) (BEAKER) (test zcwd=761) 2 % 0-0 MYELOCYTES-REL (DIFF) (BEAKER) (test eegw=6024) 3 % 0-0 NEUTROPHILS - ABS (DIFF) (BEAKER) (test ljdo=6622) 6.96 K/ L 1.80-8.00 LYMPHOCYTES - ABS (DIFF) (BEAKER) (test zkyq=7536) 2.44 K/ L 1.48-4.50 MONOCYTES - ABS (DIFF) (BEAKER) (test ozro=1072) 1.51 K/ L 0.00-1.30 EOSINOPHILS - ABS (DIFF) (BEAKER) (test vzng=2292) 0.12 K/ L 0.00-0.50 BASOPHILS - ABS (DIFF) (BEAKER) (test hvia=4283) 0.00 K/ L 0.00-0.20 METAMYELOCTYES - ABS (DIFF) (BEAKER) (test 0.23 K/ L 0.00-0.00 cbut=241) MYELOCYTES-ABS (DIFF) (BEAKER) (test xwts=6271) 0.35 K/ L 0.00-0.00 TOTAL COUNTED (BEAKER) (test sxda=0079) 100 WBC MORPHOLOGY (BEAKER) (test fpzg=937) Normal PLT MORPHOLOGY (BEAKER) (test syte=057) Normal RBC MORPHOLOGY (BEAKER) (test hhun=006) Normal POCT-GLUCOSE [id number] 07:43:00 Test Item Value Reference Range Comments POC-GLUCOSE METER (BEAKER) 151 mg/dL 70-110 TESTED AT [facility] [address] [facility] (test pwkt=2290) [facility] [address] BASIC METABOLIC [id number] 06:24:00 Test Item Value Reference Range Comments SODIUM (BEAKER) (test 138 meq/L 136-145 pauq=779) POTASSIUM (BEAKER) (test 3.8 meq/L 3.5-5.1 dokb=970) CHLORIDE (BEAKER) (test 106 meq/L 98-107 irxl=817) CO2 (BEAKER) (test 21 meq/L 22-29 ynia=515) BLOOD UREA NITROGEN 17 mg/dL 7-21 (BEAKER) (test rtqq=209) CREATININE (BEAKER) (test 1.82 mg/dL 0.57-1.25 luzi=850) GLUCOSE RANDOM (BEAKER) 137 mg/dL 70-105 (test qcze=477) CALCIUM (BEAKER) (test 8.6 mg/dL 8.4-10.2 fuiu=330) EGFR (BEAKER) (test 29 mL/min/1.73 sq m ESTIMATED GFR IS NOT hqll=6405) ACCURATE CREATININE CLEARANCE IN PREDICTING GLOMERULAR FILTRATION RATE. ESTIMATED GFR IS NOT APPLICABLE FOR DIALYSIS PATIENTS. [id number] 06:23:00 Test Item Value Reference Range Comments PHOSPHORUS (BEAKER) (test ftyq=352) 3.5 mg/dL 2.3-4.7 [id number] 06:23:00 Test Item Value Reference Range Comments MAGNESIUM (BEAKER) (test owpm=671) 1.7 mg/dL 1.6-2.6 POCT-GLUCOSE [id number] 21:50:00 Test Item Value Reference Range Comments POC-GLUCOSE METER (BEAKER) 205 mg/dL 70-110 TESTED AT [address] (test brph=0451) [place] [address] POCT-GLUCOSE [id number] 17:18:00 Test Item Value Reference Range Comments POC-GLUCOSE METER (BEAKER) 161 mg/dL 70-110 TESTED AT [address] (test zwvx=0816) [place] [address] URINALYSIS W/ [id number] 13:16:00 Test Item Value Reference Range Comments COLOR (BEAKER) (test eowv=362) Yellow CLARITY (BEAKER) (test bqim=079) Hazy SPECIFIC GRAVITY UA (BEAKER) (test eukt=085) 1.007 1.001-1.035 PH UA (BEAKER) (test mhus=948) 6.5 5.0-8.0 PROTEIN UA (BEAKER) (test szzw=006) 30 mg/dL Negative GLUCOSE UA (BEAKER) (test aywn=183) Negative Negative KETONES UA (BEAKER) (test isqq=178) Negative Negative BILIRUBIN UA (BEAKER) (test uejo=282) Negative Negative BLOOD UA (BEAKER) (test abtz=878) Large Negative NITRITE UA (BEAKER) (test gvzq=272) Negative Negative LEUKOCYTE ESTERASE UA (BEAKER) (test zmue=364) Large Negative UROBILINOGEN UA (BEAKER) (test neyd=514) 0.2 mg/dL 0.2-1.0 RBC UA (BEAKER) (test xkxk=644) 26 /HPF WBC UA (BEAKER) (test tlul=270) > /HPF SQUAMOUS EPITHELIAL (BEAKER) (test hnua=012) 17 /HPF SOURCE(BEAKER) (test cqjq=2867) Urine, Voided POCT-GLUCOSE [id number] 08:34:00 Test Item Value Reference Range Comments POC-GLUCOSE METER (BEAKER) 154 mg/dL 70-110 TESTED AT [address] (test zoum=9095) [place] [address] BASIC METABOLIC [id number] 07:34:00 Test Item Value Reference Range Comments SODIUM (BEAKER) (test 138 meq/L 136-145 lksv=592) POTASSIUM (BEAKER) (test 4.0 meq/L 3.5-5.1 kvng=992) CHLORIDE (BEAKER) (test 105 meq/L 98-107 skwp=554) CO2 (BEAKER) (test 24 meq/L 22-29 fpoe=699) BLOOD UREA NITROGEN 18 mg/dL 7-21 (BEAKER) (test kvok=818) CREATININE (BEAKER) (test 2.27 mg/dL 0.57-1.25 oevs=721) GLUCOSE RANDOM (BEAKER) 125 mg/dL 70-105 (test ahan=123) CALCIUM (BEAKER) (test 9.1 mg/dL 8.4-10.2 gtpx=605) EGFR (BEAKER) (test 22 mL/min/1.73 sq m ESTIMATED GFR IS NOT rprx=7174) ACCURATE CREATININE CLEARANCE IN PREDICTING GLOMERULAR FILTRATION RATE. ESTIMATED GFR IS NOT APPLICABLE FOR DIALYSIS PATIENTS. [id number] 07:32:00 Test Item Value Reference Range Comments PHOSPHORUS (BEAKER) (test rdmq=731) 3.1 mg/dL 2.3-4.7 [id number] 07:32:00 Test Item Value Reference Range Comments MAGNESIUM (BEAKER) (test imzl=281) 1.6 mg/dL 1.6-2.6 CBC W/PLT COUNT & AUTO [id number] 05:48:00 Test Item Value Reference Range Comments WHITE BLOOD CELL COUNT (BEAKER) (test ptey=385) 13.5 K/ L 3.5-10.5 RED BLOOD CELL COUNT (BEAKER) (test foxs=779) 3.79 M/ L 3.93-5.22 HEMOGLOBIN (BEAKER) (test angu=282) 10.6 GM/DL 11.2-15.7 HEMATOCRIT (BEAKER) (test rjwu=582) 33.0 % 34.1-44.9 MEAN CORPUSCULAR VOLUME (BEAKER) (test upao=480) 87.1 fL 79.4-94.8 MEAN CORPUSCULAR HEMOGLOBIN (BEAKER) (test 28.0 pg 25.6-32.2 omhh=624) MEAN CORPUSCULAR HEMOGLOBIN CONC (BEAKER) (test 32.1 GM/DL 32.2-35.5 qlra=317) RED CELL DISTRIBUTION WIDTH (BEAKER) (test 14.7 % 11.7-14.4 hpgl=667) PLATELET COUNT (BEAKER) (test cmtj=298) 268 K/CU MM 150-450 MEAN PLATELET VOLUME (BEAKER) (test avur=421) 9.0 fL 9.4-12.3 NUCLEATED RED BLOOD CELLS (BEAKER) (test 0 /100 WBC 0-0 skog=559) NEUTROPHILS RELATIVE PERCENT (BEAKER) (test 77 % kuct=040) LYMPHOCYTES RELATIVE PERCENT (BEAKER) (test 9 % aahw=776) MONOCYTES RELATIVE PERCENT (BEAKER) (test 10 % beez=523) EOSINOPHILS RELATIVE PERCENT (BEAKER) (test 2 % linv=624) BASOPHILS RELATIVE PERCENT (BEAKER) (test 0 % cele=289) NEUTROPHILS ABSOLUTE COUNT (BEAKER) (test 10.36 K/ L 1.56-6.13 jsju=100) LYMPHOCYTES ABSOLUTE COUNT (BEAKER) (test 1.25 K/ L 1.18-3.74 hpjj=743) MONOCYTES ABSOLUTE COUNT (BEAKER) (test 1.36 K/ L 0.24-0.36 qtly=704) EOSINOPHILS ABSOLUTE COUNT (BEAKER) (test 0.25 K/ L 0.04-0.36 xben=725) BASOPHILS ABSOLUTE COUNT (BEAKER) (test 0.05 K/ L 0.01-0.08 icem=885) IMMATURE GRANULOCYTES-RELATIVE PERCENT (BEAKER) 2 % 0-1 (test pyca=8442) POCT-GLUCOSE [id number] 22:24:00 Test Item Value Reference Range Comments POC-GLUCOSE METER (BEAKER) 119 mg/dL 70-110 TESTED AT [address] (test geqv=1934) [place] [address] POCT-GLUCOSE [id number] 17:09:00 Test Item Value Reference Range Comments POC-GLUCOSE METER (BEAKER) 110 mg/dL 70-110 TESTED AT [address] (test aptt=9011) [place] [address] BLOOD [id number] 17:00:00 Test Item Value Reference Range Comments CULTURE (BEAKER) (test xgfp=8224) No growth in 5 days BLOOD [id number] 17:00:00 Test Item Value Reference Range Comments CULTURE (BEAKER) (test nseo=1145) No growth in 5 days POCT-GLUCOSE [id number] 11:34:00 Test Item Value Reference Range Comments POC-GLUCOSE METER (BEAKER) 202 mg/dL 70-110 TESTED AT [facility] [address] [facility] (test tjrp=7322) [place] [address] POCT-GLUCOSE [id number] 07:55:00 Test Item Value Reference Range Comments POC-GLUCOSE METER (BEAKER) 147 mg/dL 70-110 TESTED AT [address] (test xxkt=8483) [place] [id number] BASIC METABOLIC [id number] 05:37:00 Test Item Value Reference Range Comments SODIUM (BEAKER) (test 136 meq/L 136-145 varb=863) POTASSIUM (BEAKER) (test 3.7 meq/L 3.5-5.1 vngh=086) CHLORIDE (BEAKER) (test 105 meq/L 98-107 ctli=947) CO2 (BEAKER) (test 21 meq/L 22-29 zczx=439) BLOOD UREA NITROGEN 18 mg/dL 7-21 (BEAKER) (test yczs=965) CREATININE (BEAKER) (test 2.23 mg/dL 0.57-1.25 ihdf=975) GLUCOSE RANDOM (BEAKER) 133 mg/dL 70-105 (test ohsn=707) CALCIUM (BEAKER) (test 8.9 mg/dL 8.4-10.2 xvfs=303) EGFR (BEAKER) (test 23 mL/min/1.73 sq m ESTIMATED GFR IS NOT mgeq=1096) ACCURATE CREATININE CLEARANCE IN PREDICTING GLOMERULAR FILTRATION RATE. ESTIMATED GFR IS NOT APPLICABLE FOR DIALYSIS PATIENTS. [id number] 05:35:00 Test Item Value Reference Range Comments PHOSPHORUS (BEAKER) (test fbkm=455) 2.8 mg/dL 2.3-4.7 [id number] 05:35:00 Test Item Value Reference Range Comments MAGNESIUM (BEAKER) (test nsvb=862) 1.6 mg/dL 1.6-2.6 CBC W/PLT COUNT & AUTO [id number] 05:12:00 Test Item Value Reference Range Comments WHITE BLOOD CELL COUNT (BEAKER) (test elwc=272) 14.0 K/ L 3.5-10.5 RED BLOOD CELL COUNT (BEAKER) (test plpb=956) 3.79 M/ L 3.93-5.22 HEMOGLOBIN (BEAKER) (test jtin=817) 10.5 GM/DL 11.2-15.7 HEMATOCRIT (BEAKER) (test iykb=792) 32.4 % 34.1-44.9 MEAN CORPUSCULAR VOLUME (BEAKER) (test jqru=872) 85.5 fL 79.4-94.8 MEAN CORPUSCULAR HEMOGLOBIN (BEAKER) (test 27.7 pg 25.6-32.2 opzf=593) MEAN CORPUSCULAR HEMOGLOBIN CONC (BEAKER) (test 32.4 GM/DL 32.2-35.5 crin=578) RED CELL DISTRIBUTION WIDTH (BEAKER) (test 14.7 % 11.7-14.4 assd=974) PLATELET COUNT (BEAKER) (test pleh=282) 240 K/CU MM 150-450 MEAN PLATELET VOLUME (BEAKER) (test cxny=054) 9.0 fL 9.4-12.3 NUCLEATED RED BLOOD CELLS (BEAKER) (test 0 /100 WBC 0-0 ujqd=419) NEUTROPHILS RELATIVE PERCENT (BEAKER) (test 70 % xdjl=118) LYMPHOCYTES RELATIVE PERCENT (BEAKER) (test 12 % thsc=667) MONOCYTES RELATIVE PERCENT (BEAKER) (test 12 % xzed=410) EOSINOPHILS RELATIVE PERCENT (BEAKER) (test 3 % szhj=026) BASOPHILS RELATIVE PERCENT (BEAKER) (test 0 % tobu=862) NEUTROPHILS ABSOLUTE COUNT (BEAKER) (test 9.78 K/ L 1.56-6.13 nfag=999) LYMPHOCYTES ABSOLUTE COUNT (BEAKER) (test 1.72 K/ L 1.18-3.74 wogt=294) MONOCYTES ABSOLUTE COUNT (BEAKER) (test 1.73 K/ L 0.24-0.36 yrlh=627) EOSINOPHILS ABSOLUTE COUNT (BEAKER) (test 0.41 K/ L 0.04-0.36 uhxw=883) BASOPHILS ABSOLUTE COUNT (BEAKER) (test 0.06 K/ L 0.01-0.08 dzvk=910) IMMATURE GRANULOCYTES-RELATIVE PERCENT (BEAKER) 2 % 0-1 (test pzmc=8922) POCT-GLUCOSE [id number] 22:02:00 Test Item Value Reference Range Comments POC-GLUCOSE METER (BEAKER) 107 mg/dL 70-110 TESTED AT [address] (test glzl=9091) [facility] [address] [address], [id number] 20:36:00FINAL REPORT CT of the abdomen and [...] Verified Date/Time: 06/22/2017 20:36: 43 Reading Location: [facility] [id number] Consult Reading Room POCT-GLUCOSE [id number] 16:27:00 Test Item Value Reference Range Comments POC-GLUCOSE METER (BEAKER) 136 mg/dL 70-110 TESTED AT [address] (test oklx=7829) [facility] [address] POCT-GLUCOSE [id number] 12:07:00 Test Item Value Reference Range Comments POC-GLUCOSE METER (BEAKER) 150 mg/dL 70-110 TESTED AT [address] (test laea=5993) [place] [id number] POCT-GLUCOSE [id number] 07:45:00 Test Item Value Reference Range Comments POC-GLUCOSE METER (BEAKER) 201 mg/dL 70-110 TESTED AT [address] (test hskf=0672) [facility] [address] BASIC METABOLIC [id number] 05:21:00 Test Item Value Reference Range Comments SODIUM (BEAKER) (test 134 meq/L 136-145 sgfu=901) POTASSIUM (BEAKER) (test 4.0 meq/L 3.5-5.1 Specimen slightly ssoj=079) hemolyzed CHLORIDE (BEAKER) (test 103 meq/L 98-107 lfcf=299) CO2 (BEAKER) (test 23 meq/L 22-29 pcox=452) BLOOD UREA NITROGEN 18 mg/dL 7-21 (BEAKER) (test pzky=062) CREATININE (BEAKER) (test 2.31 mg/dL 0.57-1.25 Specimen slightly bisy=748) hemolyzed GLUCOSE RANDOM (BEAKER) 140 mg/dL 70-105 (test xzzk=996) CALCIUM (BEAKER) (test 8.8 mg/dL 8.4-10.2 ivph=129) EGFR (BEAKER) (test 22 mL/min/1.73 sq m ESTIMATED GFR IS NOT uqri=3391) ACCURATE CREATININE CLEARANCE IN PREDICTING GLOMERULAR FILTRATION RATE. ESTIMATED GFR IS NOT APPLICABLE FOR DIALYSIS PATIENTS. [id number] 05:09:00 Test Item Value Reference Range Comments MAGNESIUM (BEAKER) (test 1.5 mg/dL 1.6-2.6 Specimen slightly hemolyzed rqbv=048) [id number] 05:09:00 Test Item Value Reference Range Comments PHOSPHORUS (BEAKER) (test 2.8 mg/dL 2.3-4.7 Specimen slightly hemolyzed walg=055) CBC W/PLT COUNT & AUTO [id number] 04:32:00 Test Item Value Reference Range Comments WHITE BLOOD CELL COUNT (BEAKER) (test zuhn=602) 16.5 K/ L 3.5-10.5 RED BLOOD CELL COUNT (BEAKER) (test teje=341) 3.71 M/ L 3.93-5.22 HEMOGLOBIN (BEAKER) (test zzcd=462) 10.4 GM/DL 11.2-15.7 HEMATOCRIT (BEAKER) (test ehto=504) 31.6 % 34.1-44.9 MEAN CORPUSCULAR VOLUME (BEAKER) (test gpzd=439) 85.2 fL 79.4-94.8 MEAN CORPUSCULAR HEMOGLOBIN (BEAKER) (test 28.0 pg 25.6-32.2 xojh=165) MEAN CORPUSCULAR HEMOGLOBIN CONC (BEAKER) (test 32.9 GM/DL 32.2-35.5 sxat=079) RED CELL DISTRIBUTION WIDTH (BEAKER) (test 14.6 % 11.7-14.4 wuop=327) PLATELET COUNT (BEAKER) (test cwpq=479) 208 K/CU MM 150-450 MEAN PLATELET VOLUME (BEAKER) (test lagp=094) 9.0 fL 9.4-12.3 NUCLEATED RED BLOOD CELLS (BEAKER) (test 0 /100 WBC 0-0 zdab=592) NEUTROPHILS RELATIVE PERCENT (BEAKER) (test 70 % xeig=104) LYMPHOCYTES RELATIVE PERCENT (BEAKER) (test 10 % liwj=701) MONOCYTES RELATIVE PERCENT (BEAKER) (test 16 % jmil=070) EOSINOPHILS RELATIVE PERCENT (BEAKER) (test 2 % vcdr=182) BASOPHILS RELATIVE PERCENT (BEAKER) (test 0 % wjbo=618) NEUTROPHILS ABSOLUTE COUNT (BEAKER) (test 11.58 K/ L 1.56-6.13 fhpk=911) LYMPHOCYTES ABSOLUTE COUNT (BEAKER) (test 1.72 K/ L 1.18-3.74 qfve=020) MONOCYTES ABSOLUTE COUNT (BEAKER) (test 2.67 K/ L 0.24-0.36 qsmk=159) EOSINOPHILS ABSOLUTE COUNT (BEAKER) (test 0.29 K/ L 0.04-0.36 cytn=534) BASOPHILS ABSOLUTE COUNT (BEAKER) (test 0.05 K/ L 0.01-0.08 cqsk=683) IMMATURE GRANULOCYTES-RELATIVE PERCENT (BEAKER) 1 % 0-1 (test kltn=7694) POCT-GLUCOSE [id number] 21:34:00 Test Item Value Reference Range Comments POC-GLUCOSE METER (BEAKER) 104 mg/dL 70-110 TESTED AT [address] (test nyky=3846) [place] [id number] POCT-GLUCOSE [id number] 17:16:00 Test Item Value Reference Range Comments POC-GLUCOSE METER (BEAKER) 262 mg/dL 70-110 TESTED AT [address] (test rnzi=4692) [place] [address] URINE [id number] 11:56:00 Test Item Value Reference Range Comments CULTURE (BEAKER) (test 50-59,000 col/mL Beronica ekxg=2759) glabrata 10-19,000 col/ml skin floraPOCT-GLUCOSE [id number] 11:29:00 Test Item Value Reference Range Comments POC-GLUCOSE METER (BEAKER) 148 mg/dL 70-110 TESTED AT [address] (test froj=8659) [place] [address] POCT-GLUCOSE [id number] 08:58:00 Test Item Value Reference Range Comments POC-GLUCOSE METER (BEAKER) 141 mg/dL 70-110 TESTED AT [address] (test eger=8164) [place] [address] BASIC METABOLIC [id number] 05:45:00 Test Item Value Reference Range Comments SODIUM (BEAKER) (test 132 meq/L 136-145 tohj=296) POTASSIUM (BEAKER) (test 3.8 meq/L 3.5-5.1 kumb=757) CHLORIDE (BEAKER) (test 102 meq/L 98-107 yqcd=828) CO2 (BEAKER) (test 20 meq/L 22-29 ybhs=529) BLOOD UREA NITROGEN 18 mg/dL 7-21 (BEAKER) (test frdj=965) CREATININE (BEAKER) (test 2.00 mg/dL 0.57-1.25 peyp=897) GLUCOSE RANDOM (BEAKER) 130 mg/dL 70-105 (test bxie=154) CALCIUM (BEAKER) (test 9.0 mg/dL 8.4-10.2 xejb=792) EGFR (BEAKER) (test 26 mL/min/1.73 sq m ESTIMATED GFR IS NOT ktmf=3260) ACCURATE CREATININE CLEARANCE IN PREDICTING GLOMERULAR FILTRATION RATE. ESTIMATED GFR IS NOT APPLICABLE FOR DIALYSIS PATIENTS. [id number] 05:30:00 Test Item Value Reference Range Comments PHOSPHORUS (BEAKER) (test zrlt=693) 2.8 mg/dL 2.3-4.7 [id number] 05:30:00 Test Item Value Reference Range Comments MAGNESIUM (BEAKER) (test gbaa=382) 1.6 mg/dL 1.6-2.6 CBC W/PLT COUNT & AUTO [id number] 05:07:00 Test Item Value Reference Range Comments WHITE BLOOD CELL COUNT (BEAKER) (test kxzh=802) 12.1 K/ L 3.5-10.5 RED BLOOD CELL COUNT (BEAKER) (test kjmi=894) 3.84 M/ L 3.93-5.22 HEMOGLOBIN (BEAKER) (test mgju=569) 10.7 GM/DL 11.2-15.7 HEMATOCRIT (BEAKER) (test xefk=575) 34.9 % 34.1-44.9 MEAN CORPUSCULAR VOLUME (BEAKER) (test atow=653) 90.9 fL 79.4-94.8 MEAN CORPUSCULAR HEMOGLOBIN (BEAKER) (test 27.9 pg 25.6-32.2 pwft=539) MEAN CORPUSCULAR HEMOGLOBIN CONC (BEAKER) (test 30.7 GM/DL 32.2-35.5 fono=574) RED CELL DISTRIBUTION WIDTH (BEAKER) (test 14.5 % 11.7-14.4 iqeq=725) PLATELET COUNT (BEAKER) (test xmvz=900) 167 K/CU MM 150-450 MEAN PLATELET VOLUME (BEAKER) (test veem=857) 9.8 fL 9.4-12.3 NUCLEATED RED BLOOD CELLS (BEAKER) (test 0 /100 WBC 0-0 wwgr=758) NEUTROPHILS RELATIVE PERCENT (BEAKER) (test 74 % dduk=907) LYMPHOCYTES RELATIVE PERCENT (BEAKER) (test 10 % ceok=185) MONOCYTES RELATIVE PERCENT (BEAKER) (test 14 % bxib=991) EOSINOPHILS RELATIVE PERCENT (BEAKER) (test 2 % flfi=711) BASOPHILS RELATIVE PERCENT (BEAKER) (test 0 % rpno=175) NEUTROPHILS ABSOLUTE COUNT (BEAKER) (test 8.95 K/ L 1.56-6.13 vjvg=699) LYMPHOCYTES ABSOLUTE COUNT (BEAKER) (test 1.20 K/ L 1.18-3.74 ncim=426) MONOCYTES ABSOLUTE COUNT (BEAKER) (test 1.69 K/ L 0.24-0.36 bmxb=557) EOSINOPHILS ABSOLUTE COUNT (BEAKER) (test 0.18 K/ L 0.04-0.36 kyid=461) BASOPHILS ABSOLUTE COUNT (BEAKER) (test 0.03 K/ L 0.01-0.08 bfnq=095) IMMATURE GRANULOCYTES-RELATIVE PERCENT (BEAKER) 1 % 0-1 (test dhya=6107) POCT-GLUCOSE [id number] 21:04:00 Test Item Value Reference Range Comments POC-GLUCOSE METER (BEAKER) 139 mg/dL 70-110 TESTED AT [address] (test jfmy=7277) [place] [id number] POCT-GLUCOSE [id number] 17:13:00 Test Item Value Reference Range Comments POC-GLUCOSE METER (BEAKER) 127 mg/dL 70-110 TESTED AT [address] (test ukqm=9762) [place] [id number] POCT-GLUCOSE [id number] 11:25:00 Test Item Value Reference Range Comments POC-GLUCOSE METER (BEAKER) 124 mg/dL 70-110 TESTED AT [address] (test flsy=7230) [place] [id number] POCT-GLUCOSE [id number] 07:28:00 Test Item Value Reference Range Comments POC-GLUCOSE METER (BEAKER) 137 mg/dL 70-110 TESTED AT [address] (test enor=3102) [place] [address] [id number] 06:43:00 Test Item Value Reference Range Comments PHOSPHORUS (BEAKER) (test cywu=485) 2.9 mg/dL 2.3-4.7 [id number] 06:43:00 Test Item Value Reference Range Comments MAGNESIUM (BEAKER) (test kycq=465) 1.6 mg/dL 1.6-2.6 BASIC METABOLIC [id number] 06:43:00 Test Item Value Reference Range Comments SODIUM (BEAKER) (test 137 meq/L 136-145 zesk=542) POTASSIUM (BEAKER) (test 3.8 meq/L 3.5-5.1 gfvb=886) CHLORIDE (BEAKER) (test 105 meq/L 98-107 ovwl=155) CO2 (BEAKER) (test 22 meq/L 22-29 vzle=524) BLOOD UREA NITROGEN 16 mg/dL 7-21 (BEAKER) (test csbt=098) CREATININE (BEAKER) (test 1.46 mg/dL 0.57-1.25 bfym=724) GLUCOSE RANDOM (BEAKER) 125 mg/dL 70-105 (test mgyf=665) CALCIUM (BEAKER) (test 8.8 mg/dL 8.4-10.2 soez=391) EGFR (BEAKER) (test 37 mL/min/1.73 sq m ESTIMATED GFR IS NOT zatp=2740) ACCURATE CREATININE CLEARANCE IN PREDICTING GLOMERULAR FILTRATION RATE. ESTIMATED GFR IS NOT APPLICABLE FOR DIALYSIS PATIENTS. CBC W/PLT COUNT & AUTO [id number] 05:55:00 Test Item Value Reference Range Comments WHITE BLOOD CELL COUNT (BEAKER) (test mrvs=612) 10.7 K/ L 3.5-10.5 RED BLOOD CELL COUNT (BEAKER) (test bgka=359) 3.84 M/ L 3.93-5.22 HEMOGLOBIN (BEAKER) (test isoc=779) 10.7 GM/DL 11.2-15.7 HEMATOCRIT (BEAKER) (test zrtb=783) 33.0 % 34.1-44.9 MEAN CORPUSCULAR VOLUME (BEAKER) (test uisb=314) 85.9 fL 79.4-94.8 MEAN CORPUSCULAR HEMOGLOBIN (BEAKER) (test 27.9 pg 25.6-32.2 hmdt=312) MEAN CORPUSCULAR HEMOGLOBIN CONC (BEAKER) (test 32.4 GM/DL 32.2-35.5 snys=566) RED CELL DISTRIBUTION WIDTH (BEAKER) (test 14.4 % 11.7-14.4 oupk=553) PLATELET COUNT (BEAKER) (test pwlp=230) 172 K/CU MM 150-450 MEAN PLATELET VOLUME (BEAKER) (test wivl=957) 9.2 fL 9.4-12.3 NUCLEATED RED BLOOD CELLS (BEAKER) (test 0 /100 WBC 0-0 kmtp=630) NEUTROPHILS RELATIVE PERCENT (BEAKER) (test 69 % ftuj=031) LYMPHOCYTES RELATIVE PERCENT (BEAKER) (test 14 % uiwj=050) MONOCYTES RELATIVE PERCENT (BEAKER) (test 14 % pvfz=462) EOSINOPHILS RELATIVE PERCENT (BEAKER) (test 2 % jruc=758) BASOPHILS RELATIVE PERCENT (BEAKER) (test 0 % noss=913) NEUTROPHILS ABSOLUTE COUNT (BEAKER) (test 7.32 K/ L 1.56-6.13 fojs=736) LYMPHOCYTES ABSOLUTE COUNT (BEAKER) (test 1.50 K/ L 1.18-3.74 anfx=243) MONOCYTES ABSOLUTE COUNT (BEAKER) (test 1.46 K/ L 0.24-0.36 qssp=891) EOSINOPHILS ABSOLUTE COUNT (BEAKER) (test 0.26 K/ L 0.04-0.36 qupm=068) BASOPHILS ABSOLUTE COUNT (BEAKER) (test 0.03 K/ L 0.01-0.08 rfds=929) IMMATURE GRANULOCYTES-RELATIVE PERCENT (BEAKER) 1 % 0-1 (test desy=0257) POCT-GLUCOSE [id number] 21:37:00 Test Item Value Reference Range Comments POC-GLUCOSE METER (BEAKER) 143 mg/dL 70-110 TESTED AT [address] (test ssxz=5510) [facility] [address] POCT-GLUCOSE [id number] 18:04:00 Test Item Value Reference Range Comments POC-GLUCOSE METER (BEAKER) 143 mg/dL 70-110 TESTED AT [address] (test rjig=9217) [facility] [address] VANCOMYCIN LEVEL, [id number] 15:00:00 Test Item Value Reference Range Comments VANCOMYCIN TROUGH (BEAKER) (test guxo=937) 9.0 ug/mL 10.0-20.0 Please hold next vanc dose until vanc trough results.TISSUE [id number] 14:20 :00Surgical Pathology Report Case: [id number] Authorizing Provider: Jag Escalera MD Collected: 06/13/2017 6975 Ordering Location: [facility] PERIOPER[facility]IVE Received: 06/14/2017 0753 SERVICES Pathologist: Aquilino Diaz MD Specimen: SoftTissue, Other, right upj segment RENAL PELVIS, RIGHT URETEROPELVIC JUNCTION, BIOPSY:- HAPHAZARD ARRANGEMENT OF SMOOTH MUSCLE BUNDLES WITH JENNIFER-MUSCULAR FIBROSIS, CONSISTENT WITH URETEROPELVIC JUNCTION OBSTRUCTION- NEGATIVE FOR DYSPLASIA OR MALIGNANCYSigning Pathologist Direct Phone Line: [phone] signed by Aquilino Diaz MD on 06/19/2017 at 2:20 [id number] obstructionRight UPJ segmentReceived fresh labeled "right UPJ segment" are two irregular pink-camacho to mary-white rubbery fragments of soft tissue measuring 1.5 x1.0 x 0.2 cm in aggregate. Sectioning reveals no discrete masses. The specimen is entirely submittedin cassette A1. DB/plPerformed.POCT-GLUCOSE [id number] 13:48:00 Test Item Value Reference Range Comments POC-GLUCOSE METER (BEAKER) 156 mg/dL 70-110 TESTED AT [address] (test nxxp=6066) [place] [address] RAD, CHEST, 2 [id number] 10:31:00Reason for exam:->feverFINAL REPORT Chest x-ray, PA [...] Monsonort Verified Date/Time: 06/19/2017 10:31:11 Reading Location: [facility] Radiology Reading Room POCT-GLUCOSE [id number] 07 :32:00 Test Item Value Reference Range Comments POC-GLUCOSE METER (BEAKER) 163 mg/dL 70-110 TESTED AT [address] (test vwpt=4434) [place] [address] [id number] 06:28:00 Test Item Value Reference Range Comments PHOSPHORUS (BEAKER) (test gvwx=887) 4.0 mg/dL 2.3-4.7 [id number] 06:28:00 Test Item Value Reference Range Comments MAGNESIUM (BEAKER) (test ntle=512) 1.9 mg/dL 1.6-2.6 BASIC METABOLIC [id number] 06:28:00 Test Item Value Reference Range Comments SODIUM (BEAKER) (test 134 meq/L 136-145 xadg=999) POTASSIUM (BEAKER) (test 4.2 meq/L 3.5-5.1 uhuj=277) CHLORIDE (BEAKER) (test 102 meq/L 98-107 zjos=064) CO2 (BEAKER) (test 24 meq/L 22-29 iieq=483) BLOOD UREA NITROGEN 17 mg/dL 7-21 (BEAKER) (test skel=596) CREATININE (BEAKER) (test 1.70 mg/dL 0.57-1.25 gtys=884) GLUCOSE RANDOM (BEAKER) 158 mg/dL 70-105 (test ipgb=488) CALCIUM (BEAKER) (test 8.9 mg/dL 8.4-10.2 atdj=287) EGFR (BEAKER) (test 31 mL/min/1.73 sq m ESTIMATED GFR IS NOT wkak=9091) ACCURATE CREATININE CLEARANCE IN PREDICTING GLOMERULAR FILTRATION RATE. ESTIMATED GFR IS NOT APPLICABLE FOR DIALYSIS PATIENTS. CBC W/PLT COUNT & AUTO [id number] 06:27:00 Test Item Value Reference Range Comments WHITE BLOOD CELL COUNT (BEAKER) (test ztgb=102) 13.6 K/ L 3.5-10.5 RED BLOOD CELL COUNT (BEAKER) (test vzsv=290) 4.09 M/ L 3.93-5.22 HEMOGLOBIN (BEAKER) (test ywuu=766) 11.3 GM/DL 11.2-15.7 HEMATOCRIT (BEAKER) (test jirj=538) 35.3 % 34.1-44.9 MEAN CORPUSCULAR VOLUME (BEAKER) (test snbs=353) 86.3 fL 79.4-94.8 MEAN CORPUSCULAR HEMOGLOBIN (BEAKER) (test 27.6 pg 25.6-32.2 cyiu=188) MEAN CORPUSCULAR HEMOGLOBIN CONC (BEAKER) (test 32.0 GM/DL 32.2-35.5 uivm=725) RED CELL DISTRIBUTION WIDTH (BEAKER) (test 14.5 % 11.7-14.4 lnoo=256) PLATELET COUNT (BEAKER) (test vuwo=306) 218 K/CU MM 150-450 MEAN PLATELET VOLUME (BEAKER) (test ponp=650) 9.1 fL 9.4-12.3 NUCLEATED RED BLOOD CELLS (BEAKER) (test 0 /100 WBC 0-0 vsrd=419) NEUTROPHILS RELATIVE PERCENT (BEAKER) (test 82 % ibyl=463) LYMPHOCYTES RELATIVE PERCENT (BEAKER) (test 7 % erxs=363) MONOCYTES RELATIVE PERCENT (BEAKER) (test 10 % azqs=305) EOSINOPHILS RELATIVE PERCENT (BEAKER) (test 1 % qatl=057) BASOPHILS RELATIVE PERCENT (BEAKER) (test 0 % ndpl=313) NEUTROPHILS ABSOLUTE COUNT (BEAKER) (test 11.10 K/ L 1.56-6.13 ebud=372) LYMPHOCYTES ABSOLUTE COUNT (BEAKER) (test 0.92 K/ L 1.18-3.74 yuzm=395) MONOCYTES ABSOLUTE COUNT (BEAKER) (test 1.30 K/ L 0.24-0.36 iqfw=580) EOSINOPHILS ABSOLUTE COUNT (BEAKER) (test 0.07 K/ L 0.04-0.36 zwqm=192) BASOPHILS ABSOLUTE COUNT (BEAKER) (test 0.03 K/ L 0.01-0.08 linn=733) IMMATURE GRANULOCYTES-RELATIVE PERCENT (BEAKER) 1 % 0-1 (test usxc=3478) POCT-GLUCOSE [id number] 21:24:00 Test Item Value Reference Range Comments POC-GLUCOSE METER (BEAKER) 172 mg/dL 70-110 TESTED AT [address] (test aluo=8514) [facility] [address] POCT-GLUCOSE [id number] 17:00:00 Test Item Value Reference Range Comments POC-GLUCOSE METER (BEAKER) 164 mg/dL 70-110 TESTED AT [address] (test wejw=5533) [facility] [address] POCT-GLUCOSE [id number] 13:16:00 Test Item Value Reference Range Comments POC-GLUCOSE METER (BEAKER) 168 mg/dL 70-110 TESTED AT [address] (test dlfs=0840) [facility] [address] POCT-GLUCOSE [id number] 07:26:00 Test Item Value Reference Range Comments POC-GLUCOSE METER (BEAKER) 164 mg/dL 70-110 TESTED AT [facility] [address] (test lsrj=1120) [facility] [address] BASIC METABOLIC [id number] 05:05:00 Test Item Value Reference Range Comments SODIUM (BEAKER) (test 134 meq/L 136-145 owzl=497) POTASSIUM (BEAKER) (test 4.9 meq/L 3.5-5.1 fihr=186) CHLORIDE (BEAKER) (test 102 meq/L 98-107 ujha=024) CO2 (BEAKER) (test 22 meq/L 22-29 wait=468) BLOOD UREA NITROGEN 18 mg/dL 7-21 (BEAKER) (test iaqo=494) CREATININE (BEAKER) (test 1.42 mg/dL 0.57-1.25 hmcu=801) GLUCOSE RANDOM (BEAKER) 179 mg/dL 70-105 (test dchx=680) CALCIUM (BEAKER) (test 9.3 mg/dL 8.4-10.2 omrz=876) EGFR (BEAKER) (test 38 mL/min/1.73 sq m ESTIMATED GFR IS NOT tanz=5701) ACCURATE CREATININE CLEARANCE IN PREDICTING GLOMERULAR FILTRATION RATE. ESTIMATED GFR IS NOT APPLICABLE FOR DIALYSIS PATIENTS. [id number] 05:04:00 Test Item Value Reference Range Comments PHOSPHORUS (BEAKER) (test avci=821) 4.8 mg/dL 2.3-4.7 [id number] 05:04:00 Test Item Value Reference Range Comments MAGNESIUM (BEAKER) (test esgx=093) 1.6 mg/dL 1.6-2.6 CBC W/PLT COUNT & AUTO [id number] 03:57:00 Test Item Value Reference Range Comments WHITE BLOOD CELL COUNT (BEAKER) (test qxzf=863) 15.5 K/ L 3.5-10.5 RED BLOOD CELL COUNT (BEAKER) (test zwcg=410) 4.45 M/ L 3.93-5.22 HEMOGLOBIN (BEAKER) (test bgrd=845) 12.2 GM/DL 11.2-15.7 HEMATOCRIT (BEAKER) (test rznx=723) 38.2 % 34.1-44.9 MEAN CORPUSCULAR VOLUME (BEAKER) (test kafo=850) 85.8 fL 79.4-94.8 MEAN CORPUSCULAR HEMOGLOBIN (BEAKER) (test 27.4 pg 25.6-32.2 kgfy=030) MEAN CORPUSCULAR HEMOGLOBIN CONC (BEAKER) (test 31.9 GM/DL 32.2-35.5 idwz=089) RED CELL DISTRIBUTION WIDTH (BEAKER) (test 14.5 % 11.7-14.4 pniw=054) PLATELET COUNT (BEAKER) (test vsqq=398) 269 K/CU MM 150-450 MEAN PLATELET VOLUME (BEAKER) (test ulht=266) 9.1 fL 9.4-12.3 NUCLEATED RED BLOOD CELLS (BEAKER) (test 0 /100 WBC 0-0 eibz=822) NEUTROPHILS RELATIVE PERCENT (BEAKER) (test 76 % bvrk=416) LYMPHOCYTES RELATIVE PERCENT (BEAKER) (test 13 % ioqs=808) MONOCYTES RELATIVE PERCENT (BEAKER) (test 9 % szeh=335) EOSINOPHILS RELATIVE PERCENT (BEAKER) (test 1 % lern=403) BASOPHILS RELATIVE PERCENT (BEAKER) (test 0 % uumk=230) NEUTROPHILS ABSOLUTE COUNT (BEAKER) (test 11.79 K/ L 1.56-6.13 jqmm=495) LYMPHOCYTES ABSOLUTE COUNT (BEAKER) (test 2.02 K/ L 1.18-3.74 zgch=378) MONOCYTES ABSOLUTE COUNT (BEAKER) (test 1.35 K/ L 0.24-0.36 ntam=710) EOSINOPHILS ABSOLUTE COUNT (BEAKER) (test 0.21 K/ L 0.04-0.36 rjbo=700) BASOPHILS ABSOLUTE COUNT (BEAKER) (test 0.04 K/ L 0.01-0.08 jdyh=999) IMMATURE GRANULOCYTES-RELATIVE PERCENT (BEAKER) 1 % 0-1 (test tyay=8525) CT, [id number] 20:27:00Reason for exam:->flank pain s/p pyeloplastyFINAL REPORT [...] MDReport Verified Date/Time: 06/17/2017 20:27:27 Reading Location: [address] Reading Room CBC ( HEMOGRAM ONLY)2017-06-17 20:19:00 Test Item Value Reference Range Comments WHITE BLOOD CELL COUNT (BEAKER) (test 16.5 K/ L 4.0-10.0 catx=135) RED BLOOD CELL COUNT (BEAKER) (test 4.75 M/ L 4.00-5.00 hyug=945) HEMOGLOBIN (BEAKER) (test zylp=757) 13.6 GM/DL 12.0-15.0 HEMATOCRIT (BEAKER) (test niri=244) 40.9 % 36.0-45.0 MEAN CORPUSCULAR VOLUME (BEAKER) (test 86.1 fL 82.0-99.0 dbdo=489) MEAN CORPUSCULAR HEMOGLOBIN (BEAKER) 28.6 pg 27.0-33.0 (test gswy=289) MEAN CORPUSCULAR HEMOGLOBIN CONC 33.3 GM/DL 32.0-36.0 (BEAKER) (test nnod=519) RED CELL DISTRIBUTION WIDTH (BEAKER) % 10.3-14.2 TEST NOT PERFORMED (test fyxy=082) PLATELET COUNT (BEAKER) (test 321 K/CU MM 150-430 jqau=101) BASIC METABOLIC [id number] 20:18:00 Test Item Value Reference Range Comments SODIUM (BEAKER) (test 136 meq/L 135-148 jble=659) POTASSIUM (BEAKER) (test 3.9 meq/L 3.6-5.5 rcbz=957) CHLORIDE (BEAKER) (test 98 meq/L 98-106 yivf=812) CO2 (BEAKER) (test 26 meq/L 24-32 elac=410) BLOOD UREA NITROGEN 15 mg/dL 10-26 (BEAKER) (test jpka=353) CREATININE (BEAKER) (test 1.30 mg/dL 0.50-1.20 njhg=834) GLUCOSE RANDOM (BEAKER) 155 mg/dL 70-110 (test wgre=411) CALCIUM (BEAKER) (test 9.9 mg/dL 8.5-10.5 mdyj=937) EGFR (BEAKER) (test 42 mL/min/1.73 sq m ESTIMATED GFR IS NOT lswo=7972) ACCURATE CREATININE CLEARANCE IN PREDICTING GLOMERULAR FILTRATION RATE. ESTIMATED GFR IS NOT APPLICABLE FOR DIALYSIS PATIENTS. POCT-GLUCOSE [id number] 12:06:00 Test Item Value Reference Range Comments POC-GLUCOSE METER (BEAKER) 160 mg/dL 70-110 TESTED AT [address] (test ivjc=6780) [facility] [address] POCT-GLUCOSE [id number] 07:33:00 Test Item Value Reference Range Comments POC-GLUCOSE METER (BEAKER) 246 mg/dL 70-110 TESTED AT [address] (test zjgn=7017) [facility] [address] POCT-GLUCOSE [id number] 22:02:00 Test Item Value Reference Range Comments POC-GLUCOSE METER (BEAKER) 206 mg/dL 70-110 TESTED AT [address] (test zkqb=8115) [place] [address] POCT-GLUCOSE [id number] 17:55:00 Test Item Value Reference Range Comments POC-GLUCOSE METER (BEAKER) 265 mg/dL 70-110 TESTED AT [place] [id number] [facility] (test atqx=9590) [place] [id number] POCT-GLUCOSE [id number] 08:39:00 Test Item Value Reference Range Comments POC-GLUCOSE METER (BEAKER) 189 mg/dL 70-110 TESTED AT [address] (test ffli=5051) [place] [address] POCT-GLUCOSE [id number] 07:44:00 Test Item Value Reference Range Comments POC-GLUCOSE METER (BEAKER) 173 mg/dL 70-110 TESTED AT [address] (test kjja=7545) [place] [address] BASIC METABOLIC [id number] 06:49:00 Test Item Value Reference Range Comments SODIUM (BEAKER) (test 138 meq/L 136-145 lrqd=677) POTASSIUM (BEAKER) (test 4.1 meq/L 3.5-5.1 bbvc=665) CHLORIDE (BEAKER) (test 106 meq/L 98-107 yiwi=202) CO2 (BEAKER) (test 24 meq/L 22-29 iahh=897) BLOOD UREA NITROGEN 15 mg/dL 7-21 (BEAKER) (test pfhv=667) CREATININE (BEAKER) (test 0.75 mg/dL 0.57-1.25 hzfy=169) GLUCOSE RANDOM (BEAKER) 166 mg/dL 70-105 (test brta=259) CALCIUM (BEAKER) (test 8.8 mg/dL 8.4-10.2 vcrl=453) EGFR (BEAKER) (test 80 mL/min/1.73 sq m ESTIMATED GFR IS NOT begi=3962) ACCURATE CREATININE CLEARANCE IN PREDICTING GLOMERULAR FILTRATION RATE. ESTIMATED GFR IS NOT APPLICABLE FOR DIALYSIS PATIENTS. HEMOGLOBIN AND [id number] 06:28:00 Test Item Value Reference Range Comments HEMOGLOBIN (BEAKER) (test oajt=352) 12.3 GM/DL 11.2-15.7 HEMATOCRIT (BEAKER) (test whhu=708) 38.8 % 34.1-44.9 BASIC METABOLIC [id number] 11:05:00 Test Item Value Reference Range Comments SODIUM (BEAKER) (test 139 meq/L 136-145 rngw=588) POTASSIUM (BEAKER) (test 4.2 meq/L 3.5-5.1 Specimen slightly plkn=680) hemolyzed CHLORIDE (BEAKER) (test 107 meq/L 98-107 nbni=915) CO2 (BEAKER) (test 24 meq/L 22-29 twnj=410) BLOOD UREA NITROGEN 19 mg/dL 7-21 (BEAKER) (test iczo=222) CREATININE (BEAKER) (test 0.81 mg/dL 0.57-1.25 Specimen slightly yexd=860) hemolyzed GLUCOSE RANDOM (BEAKER) 205 mg/dL 70-105 (test tcfu=989) CALCIUM (BEAKER) (test 9.3 mg/dL 8.4-10.2 ffii=485) EGFR (BEAKER) (test 73 mL/min/1.73 sq m ESTIMATED GFR IS NOT kfbm=4582) ACCURATE CREATININE CLEARANCE IN PREDICTING GLOMERULAR FILTRATION RATE. ESTIMATED GFR IS NOT APPLICABLE FOR DIALYSIS PATIENTS. HEMOGLOBIN AND [id number] 10:48:00 Test Item Value Reference Range Comments HEMOGLOBIN (BEAKER) (test nxgv=606) 13.4 GM/DL 11.2-15.7 HEMATOCRIT (BEAKER) (test qxgh=376) 41.7 % 34.1-44.9 POCT-GLUCOSE [id number] 10:25:00 Test Item Value Reference Range Comments POC-GLUCOSE METER (BEAKER) 216 mg/dL 70-110 TESTED AT [facility] [address] [facility] (test pljp=5299) [facility] [address] TISSUE [id number] 12:11:00Surgical Pathology Report Case: [id number] Authorizing Provider: Jessica Ivory MD Collected: 05/02/2017 1147 Ordering Location: [facility] [place] Endoscopy Received: 05/02/2017 1533 Services Pathologist: Tung Connor MD Specimens: A) - Polyp, Colon - Right/Ascending B) -Polyp, Colon - Rectum A. COLON, RIGHT /ASCENDING POLYP, BIOPSY: - FRAGMENT OF TUBULAR ADENOMA (x1) - SEPARATE FRAGMENTS OF UNREMARKABLE COLONIC MUCOSAB. RECTUM, POLYP, BIOPSY: - FRAGMENTS OF HYPERPLASTIC POLYP (x3) Signing PathologistDirect Phone Line: [phone] signed by Tung Connor MD on 05/03/2017 at 12:11 [id number], large intestine without perforation or abscess without bleeding, Uretericfistula A. Right ascending colon polyp; B. Rectum colon polypThe specimen is received in two containers of formalin both labeled with the patient's information. Part A labeled "right/ascending colon polyp" consists of 0.4 cm fragment of acmacho tissue, submitted entirely A1. Part B labeled "rectum colon polyp" consists of a 0.4 cm round fragment of camacho tissue, submitted B1. CG/pl Performed.URINALYSIS W/ [id number] 14:08:00 Test Item Value Reference Range Comments COLOR (BEAKER) (test ytuq=735) Yellow CLARITY (BEAKER) (test jslw=073) Hazy SPECIFIC GRAVITY UA (BEAKER) (test uies=922) 1.015 1.001-1.035 PH UA (BEAKER) (test ewfb=042) 5.5 5.0-8.0 PROTEIN UA (BEAKER) (test zvif=638) 10 mg/dL Negative GLUCOSE UA (BEAKER) (test cwqg=923) Negative Negative KETONES UA (BEAKER) (test ndvx=532) Negative Negative BILIRUBIN UA (BEAKER) (test xwax=473) Negative Negative BLOOD UA (BEAKER) (test qkbl=990) Moderate Negative NITRITE UA (BEAKER) (test uutb=204) Negative Negative LEUKOCYTE ESTERASE UA (BEAKER) (test rkip=302) Large Negative UROBILINOGEN UA (BEAKER) (test cnyd=954) 0.2 mg/dL 0.2-1.0 RBC UA (BEAKER) (test fnia=999) 46 /HPF WBC UA (BEAKER) (test znbj=959) 53 /HPF BACTERIA (BEAKER) (test lgfp=545) Rare MUCUS (BEAKER) (test nefk=3543) Rare SQUAMOUS EPITHELIAL (BEAKER) (test roww=023) 1 /HPF HYALINE CASTS (BEAKER) (test vots=051) 2 /LPF SOURCE(BEAKER) (test texx=9646) BASIC METABOLIC [id number] 12:36:00 Test Item Value Reference Range Comments SODIUM (BEAKER) (test 140 meq/L 136-145 tiwt=348) POTASSIUM (BEAKER) (test 4.0 meq/L 3.5-5.1 daic=311) CHLORIDE (BEAKER) (test 106 meq/L 98-107 fspl=888) CO2 (BEAKER) (test 24 meq/L 22-29 vtux=164) BLOOD UREA NITROGEN 16 mg/dL 7-21 (BEAKER) (test ublj=902) CREATININE (BEAKER) (test 0.81 mg/dL 0.57-1.25 imnm=854) GLUCOSE RANDOM (BEAKER) 146 mg/dL 70-105 (test iyom=909) CALCIUM (BEAKER) (test 9.8 mg/dL 8.4-10.2 tyga=621) EGFR (BEAKER) (test 73 mL/min/1.73 sq m ESTIMATED GFR IS NOT hiuj=6678) ACCURATE CREATININE CLEARANCE IN PREDICTING GLOMERULAR FILTRATION RATE. ESTIMATED GFR IS NOT APPLICABLE FOR DIALYSIS PATIENTS. [id number] 11:58:00 Test Item Value Reference Range Comments PARTIAL THROMBOPLASTIN TIME (BEAKER) (test 35.7 seconds 22.5-36.0 vtby=108) PROTHROMBIN [id number] 11:57:00 Test Item Value Reference Range Comments PROTIME (BEAKER) (test gjwx=895) 13.6 seconds 11.7-14.7 INR (BEAKER) (test llpo=313) 1.1 <=5.9 RECOMMENDED COUMADIN/WARFARIN INR THERAPY RANGESSTANDARD DOSE: 2.0 - 3.0 Includes: PROPHYLAXIS forvenous thrombosis, systemic embolization; TREATMENT for venous thrombosis and/or pulmonary embolus.HIGH RISK: Target INR is 2.5-3.5 for patients with mechanical heart valves.CBC W/PLT COUNT & AUTO [id number] 11:50:00 Test Item Value Reference Range Comments WHITE BLOOD CELL COUNT (BEAKER) (test agas=008) 8.0 K/ L 3.5-10.5 RED BLOOD CELL COUNT (BEAKER) (test vscg=226) 5.04 M/ L 3.93-5.22 HEMOGLOBIN (BEAKER) (test wril=749) 13.8 GM/DL 11.2-15.7 HEMATOCRIT (BEAKER) (test xrsy=852) 43.3 % 34.1-44.9 MEAN CORPUSCULAR VOLUME (BEAKER) (test inij=647) 85.9 fL 79.4-94.8 MEAN CORPUSCULAR HEMOGLOBIN (BEAKER) (test 27.4 pg 25.6-32.2 fddq=795) MEAN CORPUSCULAR HEMOGLOBIN CONC (BEAKER) (test 31.9 GM/DL 32.2-35.5 reyj=886) RED CELL DISTRIBUTION WIDTH (BEAKER) (test 15.3 % 11.7-14.4 hreu=939) PLATELET COUNT (BEAKER) (test xsbd=358) 305 K/CU MM 150-450 MEAN PLATELET VOLUME (BEAKER) (test sfja=065) 9.0 fL 9.4-12.3 NUCLEATED RED BLOOD CELLS (BEAKER) (test 0 /100 WBC 0-0 mbdg=829) NEUTROPHILS RELATIVE PERCENT (BEAKER) (test 57 % naml=855) LYMPHOCYTES RELATIVE PERCENT (BEAKER) (test 33 % uaxx=518) MONOCYTES RELATIVE PERCENT (BEAKER) (test 7 % okkj=024) EOSINOPHILS RELATIVE PERCENT (BEAKER) (test 2 % igip=392) BASOPHILS RELATIVE PERCENT (BEAKER) (test 1 % vxoh=425) NEUTROPHILS ABSOLUTE COUNT (BEAKER) (test 4.54 K/ L 1.56-6.13 vrwv=115) LYMPHOCYTES ABSOLUTE COUNT (BEAKER) (test 2.63 K/ L 1.18-3.74 dewn=818) MONOCYTES ABSOLUTE COUNT (BEAKER) (test 0.52 K/ L 0.24-0.36 oydi=237) EOSINOPHILS ABSOLUTE COUNT (BEAKER) (test 0.18 K/ L 0.04-0.36 oguy=585) BASOPHILS ABSOLUTE COUNT (BEAKER) (test 0.07 K/ L 0.01-0.08 slnx=330) IMMATURE GRANULOCYTES-RELATIVE PERCENT (BEAKER) 1 % 0-1 (test pqep=8131) POCT-GLUCOSE [id number] 17:46:00 Test Item Value Reference Range Comments POC-GLUCOSE METER (BEAKER) 201 mg/dL 70-110 TESTED AT [address] (test myhk=1215) [facility] [address] POCT-GLUCOSE [id number] 14:15:00 Test Item Value Reference Range Comments POC-GLUCOSE METER (BEAKER) 152 mg/dL 70-110 TESTED AT [address] (test zjdi=1800) [facility] [address] POCT-GLUCOSE [id number] 08:21:00 Test Item Value Reference Range Comments POC-GLUCOSE METER (BEAKER) 149 mg/dL 70-110 TESTED AT [address] (test qlij=1951) [facility] [address] POCT-GLUCOSE [id number] 21:11:00 Test Item Value Reference Range Comments POC-GLUCOSE METER (BEAKER) 201 mg/dL 70-110 TESTED AT [address] (test sflq=6983) [place] [address] POCT-GLUCOSE [id number] 18:48:00 Test Item Value Reference Range Comments POC-GLUCOSE METER (BEAKER) 188 mg/dL 70-110 TESTED AT [address] (test tbtt=1453) [place] [address] POCT-GLUCOSE [id number] 13:32:00 Test Item Value Reference Range Comments POC-GLUCOSE METER (BEAKER) 151 mg/dL 70-110 TESTED AT [address] (test cgav=3194) [facility] [address] POCT-GLUCOSE [id number] 08:31:00 Test Item Value Reference Range Comments POC-GLUCOSE METER (BEAKER) 149 mg/dL 70-110 TESTED AT [address] (test xkrk=4914) [facility] [address] BASIC METABOLIC [id number] 07:11:00 Test Item Value Reference Range Comments SODIUM (BEAKER) (test 138 meq/L 136-145 aqbg=986) POTASSIUM (BEAKER) (test 3.5 meq/L 3.5-5.1 mizk=745) CHLORIDE (BEAKER) (test 103 meq/L 98-107 zjwb=064) CO2 (BEAKER) (test 24 meq/L 22-29 rdsm=140) BLOOD UREA NITROGEN 8 mg/dL 7-21 (BEAKER) (test ebub=804) CREATININE (BEAKER) (test 0.90 mg/dL 0.57-1.25 imij=984) GLUCOSE RANDOM (BEAKER) 153 mg/dL 70-105 (test ixtv=998) CALCIUM (BEAKER) (test 9.7 mg/dL 8.4-10.2 coja=330) EGFR (BEAKER) (test 65 mL/min/1.73 sq m ESTIMATED GFR IS NOT nmyy=1794) ACCURATE CREATININE CLEARANCE IN PREDICTING GLOMERULAR FILTRATION RATE. ESTIMATED GFR IS NOT APPLICABLE FOR DIALYSIS PATIENTS. CBC W/PLT COUNT & AUTO [id number] 06:53:00 Test Item Value Reference Range Comments WHITE BLOOD CELL COUNT (BEAKER) (test qlmu=125) 9.1 K/ L 3.5-10.5 RED BLOOD CELL COUNT (BEAKER) (test bzdl=564) 4.17 M/ L 3.93-5.22 HEMOGLOBIN (BEAKER) (test wyvi=590) 11.5 GM/DL 11.2-15.7 HEMATOCRIT (BEAKER) (test rdhn=270) 36.1 % 34.1-44.9 MEAN CORPUSCULAR VOLUME (BEAKER) (test aaaw=440) 86.6 fL 79.4-94.8 MEAN CORPUSCULAR HEMOGLOBIN (BEAKER) (test 27.6 pg 25.6-32.2 tony=482) MEAN CORPUSCULAR HEMOGLOBIN CONC (BEAKER) (test 31.9 GM/DL 32.2-35.5 imtw=298) RED CELL DISTRIBUTION WIDTH (BEAKER) (test 13.9 % 11.7-14.4 uvrh=217) PLATELET COUNT (BEAKER) (test vwpe=292) 389 K/CU MM 150-450 MEAN PLATELET VOLUME (BEAKER) (test detv=058) 8.8 fL 9.4-12.3 NUCLEATED RED BLOOD CELLS (BEAKER) (test 0 /100 WBC 0-0 gzkw=118) NEUTROPHILS RELATIVE PERCENT (BEAKER) (test 60 % ydsb=239) LYMPHOCYTES RELATIVE PERCENT (BEAKER) (test 22 % mbcn=488) MONOCYTES RELATIVE PERCENT (BEAKER) (test 12 % qaya=785) EOSINOPHILS RELATIVE PERCENT (BEAKER) (test 3 % svpl=486) BASOPHILS RELATIVE PERCENT (BEAKER) (test 1 % xcde=739) NEUTROPHILS ABSOLUTE COUNT (BEAKER) (test 5.46 K/ L 1.56-6.13 xeih=957) LYMPHOCYTES ABSOLUTE COUNT (BEAKER) (test 2.04 K/ L 1.18-3.74 regr=701) MONOCYTES ABSOLUTE COUNT (BEAKER) (test 1.09 K/ L 0.24-0.36 sfyb=842) EOSINOPHILS ABSOLUTE COUNT (BEAKER) (test 0.29 K/ L 0.04-0.36 turm=914) BASOPHILS ABSOLUTE COUNT (BEAKER) (test 0.06 K/ L 0.01-0.08 lzlw=981) IMMATURE GRANULOCYTES-RELATIVE PERCENT (BEAKER) 2 % 0-1 (test mvkc=7935) POCT-GLUCOSE [id number] 21:07:00 Test Item Value Reference Range Comments POC-GLUCOSE METER (BEAKER) 224 mg/dL 70-110 TESTED AT [address] (test jreb=6823) [facility] [address] POCT-GLUCOSE [id number] 17:14:00 Test Item Value Reference Range Comments POC-GLUCOSE METER (BEAKER) 121 mg/dL 70-110 TESTED AT [address] (test lkgl=3148) [facility] [address] POCT-GLUCOSE [id number] 11:03:00 Test Item Value Reference Range Comments POC-GLUCOSE METER (BEAKER) 161 mg/dL 70-110 TESTED AT [address] (test ovpu=7795) [facility] [address] POCT-GLUCOSE [id number] 07:24:00 Test Item Value Reference Range Comments POC-GLUCOSE METER (BEAKER) 191 mg/dL 70-110 TESTED AT [address] (test qfgn=3802) [facility] [address] BASIC METABOLIC [id number] 04:45:00 Test Item Value Reference Range Comments SODIUM (BEAKER) (test 137 meq/L 136-145 pnem=416) POTASSIUM (BEAKER) (test 3.3 meq/L 3.5-5.1 tfne=566) CHLORIDE (BEAKER) (test 102 meq/L 98-107 pkkh=929) CO2 (BEAKER) (test 24 meq/L 22-29 rgqf=300) BLOOD UREA NITROGEN 8 mg/dL 7-21 (BEAKER) (test yqvc=455) CREATININE (BEAKER) (test 0.91 mg/dL 0.57-1.25 aeza=837) GLUCOSE RANDOM (BEAKER) 148 mg/dL 70-105 (test qopf=948) CALCIUM (BEAKER) (test 9.5 mg/dL 8.4-10.2 facc=467) EGFR (BEAKER) (test 64 mL/min/1.73 sq m ESTIMATED GFR IS NOT pohh=9843) ACCURATE CREATININE CLEARANCE IN PREDICTING GLOMERULAR FILTRATION RATE. ESTIMATED GFR IS NOT APPLICABLE FOR DIALYSIS PATIENTS. POCT-GLUCOSE [id number] 21:03:00 Test Item Value Reference Range Comments POC-GLUCOSE METER (BEAKER) 164 mg/dL 70-110 TESTED AT [address] (test brid=4902) [place] [address] BLOOD [id number] 18:00:00 Test Item Value Reference Range Comments CULTURE (BEAKER) (test hwop=7003) No growth in 5 days BLOOD [id number] 18:00:00 Test Item Value Reference Range Comments CULTURE (BEAKER) (test xvsm=4309) No growth in 5 days POCT-GLUCOSE [id number] 17:18:00 Test Item Value Reference Range Comments POC-GLUCOSE METER (BEAKER) 154 mg/dL 70-110 TESTED AT [address] (test rblf=1712) [place] [address] POCT-GLUCOSE [id number] 11:29:00 Test Item Value Reference Range Comments POC-GLUCOSE METER (BEAKER) 117 mg/dL 70-110 TESTED AT [address] (test jcxc=4437) [place] [address] URINE [id number] 09:54:00 Test Item Value Reference Range Comments CULTURE (BEAKER) (test zucc=1318) No growth POCT-GLUCOSE [id number] 07:34:00 Test Item Value Reference Range Comments POC-GLUCOSE METER (BEAKER) 120 mg/dL 70-110 TESTED AT [address] (test gkha=9892) [place] [address] BASIC METABOLIC [id number] 05:18:00 Test Item Value Reference Range Comments SODIUM (BEAKER) (test 138 meq/L 136-145 tomu=187) POTASSIUM (BEAKER) (test 3.9 meq/L 3.5-5.1 aepw=942) CHLORIDE (BEAKER) (test 104 meq/L 98-107 afcw=023) CO2 (BEAKER) (test 26 meq/L 22-29 aynt=974) BLOOD UREA NITROGEN 4 mg/dL 7-21 (BEAKER) (test kkxt=963) CREATININE (BEAKER) (test 0.85 mg/dL 0.57-1.25 cigg=416) GLUCOSE RANDOM (BEAKER) 110 mg/dL 70-105 (test xray=933) CALCIUM (BEAKER) (test 9.7 mg/dL 8.4-10.2 gkvi=283) EGFR (BEAKER) (test 69 mL/min/1.73 sq m ESTIMATED GFR IS NOT yloo=1996) ACCURATE CREATININE CLEARANCE IN PREDICTING GLOMERULAR FILTRATION RATE. ESTIMATED GFR IS NOT APPLICABLE FOR DIALYSIS PATIENTS. CBC W/PLT COUNT & AUTO [id number] 04:59:00 Test Item Value Reference Range Comments WHITE BLOOD CELL COUNT (BEAKER) (test pjbx=197) 9.6 K/ L 3.5-10.5 RED BLOOD CELL COUNT (BEAKER) (test tpfd=008) 3.96 M/ L 3.93-5.22 HEMOGLOBIN (BEAKER) (test svan=354) 11.1 GM/DL 11.2-15.7 HEMATOCRIT (BEAKER) (test xriz=571) 34.4 % 34.1-44.9 MEAN CORPUSCULAR VOLUME (BEAKER) (test najt=438) 86.9 fL 79.4-94.8 MEAN CORPUSCULAR HEMOGLOBIN (BEAKER) (test 28.0 pg 25.6-32.2 vgcc=070) MEAN CORPUSCULAR HEMOGLOBIN CONC (BEAKER) (test 32.3 GM/DL 32.2-35.5 jldy=674) RED CELL DISTRIBUTION WIDTH (BEAKER) (test 13.5 % 11.7-14.4 kgjz=097) PLATELET COUNT (BEAKER) (test wikt=159) 338 K/CU MM 150-450 MEAN PLATELET VOLUME (BEAKER) (test kscn=929) 8.6 fL 9.4-12.3 NUCLEATED RED BLOOD CELLS (BEAKER) (test 0 /100 WBC 0-0 jisr=752) NEUTROPHILS RELATIVE PERCENT (BEAKER) (test 62 % imse=773) LYMPHOCYTES RELATIVE PERCENT (BEAKER) (test 22 % wquu=307) MONOCYTES RELATIVE PERCENT (BEAKER) (test 12 % sliz=926) EOSINOPHILS RELATIVE PERCENT (BEAKER) (test 4 % qdmh=522) BASOPHILS RELATIVE PERCENT (BEAKER) (test 1 % iapd=212) NEUTROPHILS ABSOLUTE COUNT (BEAKER) (test 5.93 K/ L 1.56-6.13 iizb=678) LYMPHOCYTES ABSOLUTE COUNT (BEAKER) (test 2.07 K/ L 1.18-3.74 yman=883) MONOCYTES ABSOLUTE COUNT (BEAKER) (test 1.13 K/ L 0.24-0.36 nncz=415) EOSINOPHILS ABSOLUTE COUNT (BEAKER) (test 0.35 K/ L 0.04-0.36 thuu=636) BASOPHILS ABSOLUTE COUNT (BEAKER) (test 0.05 K/ L 0.01-0.08 cyvx=766) IMMATURE GRANULOCYTES-RELATIVE PERCENT (BEAKER) 1 % 0-1 (test evxm=5326) POCT-GLUCOSE [id number] 21:33:00 Test Item Value Reference Range Comments POC-GLUCOSE METER (BEAKER) 114 mg/dL 70-110 TESTED AT [address] (test vqbd=7602) [place] [id number] POCT-GLUCOSE [id number] 17:43:00 Test Item Value Reference Range Comments POC-GLUCOSE METER (BEAKER) 177 mg/dL 70-110 TESTED AT [address] (test fkng=0187) [place] [id number] POCT-GLUCOSE [id number] 11:19:00 Test Item Value Reference Range Comments POC-GLUCOSE METER (BEAKER) 183 mg/dL 70-110 TESTED AT [address] (test wwqu=3975) [place] [id number] POCT-GLUCOSE [id number] 07:56:00 Test Item Value Reference Range Comments POC-GLUCOSE METER (BEAKER) 131 mg/dL 70-110 TESTED AT [address] (test bukb=3087) [place] [id number] BASIC METABOLIC [id number] 07:52:00 Test Item Value Reference Range Comments SODIUM (BEAKER) (test 136 meq/L 136-145 orri=822) POTASSIUM (BEAKER) (test 3.9 meq/L 3.5-5.1 fwld=281) CHLORIDE (BEAKER) (test 103 meq/L 98-107 jzkd=091) CO2 (BEAKER) (test 24 meq/L 22-29 ghti=380) BLOOD UREA NITROGEN 7 mg/dL 7-21 (BEAKER) (test ygjf=427) CREATININE (BEAKER) (test 0.87 mg/dL 0.57-1.25 crhm=458) GLUCOSE RANDOM (BEAKER) 106 mg/dL 70-105 (test qsep=230) CALCIUM (BEAKER) (test 9.1 mg/dL 8.4-10.2 bgwc=665) EGFR (BEAKER) (test 67 mL/min/1.73 sq m ESTIMATED GFR IS NOT yvez=4631) ACCURATE CREATININE CLEARANCE IN PREDICTING GLOMERULAR FILTRATION RATE. ESTIMATED GFR IS NOT APPLICABLE FOR DIALYSIS PATIENTS. CBC W/PLT COUNT & AUTO [id number] 06:52:00 Test Item Value Reference Range Comments WHITE BLOOD CELL COUNT (BEAKER) (test reaj=066) 11.7 K/ L 4.0-10.0 RED BLOOD CELL COUNT (BEAKER) (test ykyg=792) 4.05 M/ L 4.00-5.00 HEMOGLOBIN (BEAKER) (test trim=045) 11.6 GM/DL 12.0-15.0 HEMATOCRIT (BEAKER) (test hjmv=921) 36.4 % 36.0-45.0 MEAN CORPUSCULAR VOLUME (BEAKER) (test okjt=454) 90.0 fL 82.0-99.0 MEAN CORPUSCULAR HEMOGLOBIN (BEAKER) (test 28.7 pg 27.0-33.0 iwmy=388) MEAN CORPUSCULAR HEMOGLOBIN CONC (BEAKER) (test 31.9 GM/DL 32.0-36.0 vvrz=978) RED CELL DISTRIBUTION WIDTH (BEAKER) (test 12.8 % 10.3-14.2 niuc=901) PLATELET COUNT (BEAKER) (test alfy=413) 352 K/CU MM 150-430 MEAN PLATELET VOLUME (BEAKER) (test eugt=238) 6.1 fL 6.5-10.5 NUCLEATED RED BLOOD CELLS (BEAKER) (test 0 /100 WBC 0-0 gdes=869) NEUTROPHILS RELATIVE PERCENT (BEAKER) (test 66 % poos=202) LYMPHOCYTES RELATIVE PERCENT (BEAKER) (test 19 % qsoi=790) MONOCYTES RELATIVE PERCENT (BEAKER) (test 12 % yarp=566) EOSINOPHILS RELATIVE PERCENT (BEAKER) (test 3 % zjxp=965) BASOPHILS RELATIVE PERCENT (BEAKER) (test 0 % bjsh=080) NEUTROPHILS ABSOLUTE COUNT (BEAKER) (test 7.73 K/ L 1.80-8.00 luzi=973) LYMPHOCYTES ABSOLUTE COUNT (BEAKER) (test 2.22 K/ L 1.48-4.50 uydg=618) MONOCYTES ABSOLUTE COUNT (BEAKER) (test 1.35 K/ L 0.00-1.30 xpbm=014) EOSINOPHILS ABSOLUTE COUNT (BEAKER) (test 0.33 K/ L 0.00-0.50 hksd=114) BASOPHILS ABSOLUTE COUNT (BEAKER) (test 0.05 K/ L 0.00-0.20 noks=689) 0.00POCT-GLUCOSE [id number] 21:16:00 Test Item Value Reference Range Comments POC-GLUCOSE METER (BEAKER) 141 mg/dL 70-110 TESTED AT [address] (test goxi=7255) [place] [id number] POCT-GLUCOSE [id number] 17:41:00 Test Item Value Reference Range Comments POC-GLUCOSE METER (BEAKER) 154 mg/dL 70-110 TESTED AT [address] (test dfxg=1836) [place] [id number] URINALYSIS W/ [id number] 15:10:00 Test Item Value Reference Range Comments COLOR (BEAKER) (test puwq=181) Yellow CLARITY (BEAKER) (test lusn=277) Clear SPECIFIC GRAVITY UA (BEAKER) (test 1.021 1.001-1.035 mqgb=469) PH UA (BEAKER) (test iewy=886) 6.0 5.0-8.0 PROTEIN UA (BEAKER) (test edpu=208) 20 mg/dL Negative GLUCOSE UA (BEAKER) (test sgqq=810) Negative Negative KETONES UA (BEAKER) (test prpt=881) Trace Negative BILIRUBIN UA (BEAKER) (test hoas=110) Negative Negative BLOOD UA (BEAKER) (test mkpn=588) Small Negative NITRITE UA (BEAKER) (test gcpg=292) Negative Negative LEUKOCYTE ESTERASE UA (BEAKER) (test Large Negative uoey=047) UROBILINOGEN UA (BEAKER) (test resz=823) 0.2 mg/dL 0.2-1.0 RBC UA (BEAKER) (test zwve=432) 1 /HPF WBC UA (BEAKER) (test mvpi=391) 36 /HPF BACTERIA (BEAKER) (test biri=398) Occasional MUCUS (BEAKER) (test fyfx=6670) Rare SQUAMOUS EPITHELIAL (BEAKER) (test 2 /HPF jpam=097) SOURCE(BEAKER) (test izub=8007) Urine, Clean Catch POCT-GLUCOSE [id number] 12:04:00 Test Item Value Reference Range Comments POC-GLUCOSE METER (BEAKER) 171 mg/dL 70-110 TESTED AT [facility] [address] [facility] (test wmnq=7206) [place] [address] URINE [id number] 10:02:00 Test Item Value Reference Range Comments CULTURE (BEAKER) (test mvne=3953) No growth POCT-GLUCOSE [id number] 08:15:00 Test Item Value Reference Range Comments POC-GLUCOSE METER (BEAKER) 118 mg/dL 70-110 TESTED AT [address] (test mhue=6229) [place] [address] BASIC METABOLIC [id number] 05:04:00 Test Item Value Reference Range Comments SODIUM (BEAKER) (test 137 meq/L 136-145 leiy=830) POTASSIUM (BEAKER) (test 3.3 meq/L 3.5-5.1 mefx=384) CHLORIDE (BEAKER) (test 107 meq/L 98-107 vwmc=385) CO2 (BEAKER) (test 22 meq/L 22-29 ixic=243) BLOOD UREA NITROGEN 7 mg/dL 7-21 (BEAKER) (test jzon=285) CREATININE (BEAKER) (test 0.80 mg/dL 0.57-1.25 ohqu=595) GLUCOSE RANDOM (BEAKER) 122 mg/dL 70-105 (test ezvs=893) CALCIUM (BEAKER) (test 8.0 mg/dL 8.4-10.2 iuur=020) EGFR (BEAKER) (test 74 mL/min/1.73 sq m ESTIMATED GFR IS NOT jgut=6160) ACCURATE CREATININE CLEARANCE IN PREDICTING GLOMERULAR FILTRATION RATE. ESTIMATED GFR IS NOT APPLICABLE FOR DIALYSIS PATIENTS. CBC W/PLT COUNT & AUTO [id number] 04:57:00 Test Item Value Reference Range Comments WHITE BLOOD CELL COUNT (BEAKER) (test djlv=906) 12.3 K/ L 4.0-10.0 RED BLOOD CELL COUNT (BEAKER) (test cxtm=409) 3.77 M/ L 4.00-5.00 HEMOGLOBIN (BEAKER) (test ffar=617) 11.1 GM/DL 12.0-15.0 HEMATOCRIT (BEAKER) (test wbdg=552) 33.7 % 36.0-45.0 MEAN CORPUSCULAR VOLUME (BEAKER) (test ilnh=477) 89.5 fL 82.0-99.0 MEAN CORPUSCULAR HEMOGLOBIN (BEAKER) (test 29.4 pg 27.0-33.0 wxwm=850) MEAN CORPUSCULAR HEMOGLOBIN CONC (BEAKER) (test 32.9 GM/DL 32.0-36.0 wrkp=091) RED CELL DISTRIBUTION WIDTH (BEAKER) (test 12.7 % 10.3-14.2 fifw=436) PLATELET COUNT (BEAKER) (test sbgs=200) 325 K/CU MM 150-430 MEAN PLATELET VOLUME (BEAKER) (test uvsi=849) 5.9 fL 6.5-10.5 NUCLEATED RED BLOOD CELLS (BEAKER) (test 0 /100 WBC 0-0 bmhg=136) NEUTROPHILS RELATIVE PERCENT (BEAKER) (test 71 % gjys=552) LYMPHOCYTES RELATIVE PERCENT (BEAKER) (test 16 % rzar=719) MONOCYTES RELATIVE PERCENT (BEAKER) (test 12 % svql=226) EOSINOPHILS RELATIVE PERCENT (BEAKER) (test 1 % ovpe=882) BASOPHILS RELATIVE PERCENT (BEAKER) (test 0 % yhfz=180) NEUTROPHILS ABSOLUTE COUNT (BEAKER) (test 8.72 K/ L 1.80-8.00 ptob=110) LYMPHOCYTES ABSOLUTE COUNT (BEAKER) (test 1.95 K/ L 1.48-4.50 cczw=770) MONOCYTES ABSOLUTE COUNT (BEAKER) (test 1.48 K/ L 0.00-1.30 zqmj=037) EOSINOPHILS ABSOLUTE COUNT (BEAKER) (test 0.15 K/ L 0.00-0.50 sofp=387) BASOPHILS ABSOLUTE COUNT (BEAKER) (test 0.04 K/ L 0.00-0.20 chtv=570) 0.00POCT-GLUCOSE [id number] 21:51:00 Test Item Value Reference Range Comments POC-GLUCOSE METER (BEAKER) 159 mg/dL 70-110 TESTED AT [facility] [address] [facility] (test muwk=1242) [facility] [address] RAPID DRUG SCREEN, [id number] 21:21:00 Test Item Value Reference Range Comments BARBITURATE URINE (BEAKER) (test duyi=723) Negative Negative BENZODIAZEPINE SCREEN URINE (BEAKER) (test Positive Negative mmgx=786) COCAINE (METAB.) SCREEN (BEAKER) (test mddy=8070) Negative Negative METHADONE SCREEN (BEAKER) (test exwz=9798) Negative Negative OPIATE SCREEN URINE (BEAKER) (test wchz=906) Positive Negative CANNABINOID SCREEN URINE (BEAKER) (test nkjd=788) Negative Negative AMPH/METHAMPH SCREEN (BEAKER) (test bjeq=5410) Negative Negative PHENCYCLIDINE SCREEN URINE (BEAKER) (test hsul=622) Negative Negative OXYCODONE SCREEN URINE (BEAKER) (test xcjz=6690) Negative Negative DRUG CUTOFF CONC.Cocaine 300 ng/mL Cannabinoid 50 ng/mL Benzodiazepine 200 ng/mLBarbiturate 200 ng/ mLPhencyclidine 25 ng/mLOpiate 300 ng/mLMethadone 300 ng/mLAmphetamine/ 1000 ng/mL MethamphetamineOxycodone 300 ng/mLThis assay provides an unconfirmed qualitative test result for the clinical management of patients in emergency situations. Chain of custody not maintained. Some nsih-cde-vqjlmho medications, as well as adulterants, may cause inaccurate results. Clinical correlation should be applied. A more comprehensive drug screen or confirmation of a detected drug may be performed upon request.POCT-GLUCOSE [id number] 14:21:00 Test Item Value Reference Range Comments POC-GLUCOSE METER (BEAKER) 113 mg/dL 70-110 TESTED AT [address] (test seok=8358) [place] [address] [id number] 10:15:00 Test Item Value Reference Range Comments RPR SCREEN (BEAKER) (test zxrp=076) Nonreactive Nonreactive URINE [id number] 09:21:00 Test Item Value Reference Range Comments CULTURE (BEAKER) (test llna=7255) >100,000 col/mL skin mckenna POCT-GLUCOSE [id number] 08:00:00 Test Item Value Reference Range Comments POC-GLUCOSE METER (BEAKER) 128 mg/dL 70-110 TESTED AT [address] (test lbmd=0937) [place] [address] CBC (HEMOGRAM ONLY)[id number] 07:25:00 Test Item Value Reference Range Comments WHITE BLOOD CELL COUNT (BEAKER) (test cahw=904) 13.9 K/ L 4.0-10.0 RED BLOOD CELL COUNT (BEAKER) (test udpt=470) 4.28 M/ L 4.00-5.00 HEMOGLOBIN (BEAKER) (test ubno=786) 12.1 GM/DL 12.0-15.0 HEMATOCRIT (BEAKER) (test eomm=869) 37.9 % 36.0-45.0 MEAN CORPUSCULAR VOLUME (BEAKER) (test hczg=914) 88.6 fL 82.0-99.0 MEAN CORPUSCULAR HEMOGLOBIN (BEAKER) (test 28.2 pg 27.0-33.0 seqa=369) MEAN CORPUSCULAR HEMOGLOBIN CONC (BEAKER) (test 31.8 GM/DL 32.0-36.0 mxqr=974) RED CELL DISTRIBUTION WIDTH (BEAKER) (test 12.7 % 10.3-14.2 xobz=706) PLATELET COUNT (BEAKER) (test tmmv=090) 343 K/CU MM 150-430 MEAN PLATELET VOLUME (BEAKER) (test zdjf=796) 6.0 fL 6.5-10.5 NUCLEATED RED BLOOD CELLS (BEAKER) (test 0 /100 WBC 0-0 rgug=925) 0.00BASIC METABOLIC [id number] 07:02:00 Test Item Value Reference Range Comments SODIUM (BEAKER) (test 138 meq/L 136-145 jhhy=288) POTASSIUM (BEAKER) (test 3.9 meq/L 3.5-5.1 hztr=772) CHLORIDE (BEAKER) (test 104 meq/L 98-107 advc=308) CO2 (BEAKER) (test 25 meq/L 22-29 yrgi=010) BLOOD UREA NITROGEN 7 mg/dL 7-21 (BEAKER) (test wyxl=545) CREATININE (BEAKER) (test 0.98 mg/dL 0.57-1.25 lpec=626) GLUCOSE RANDOM (BEAKER) 138 mg/dL 70-105 (test rooy=218) CALCIUM (BEAKER) (test 9.1 mg/dL 8.4-10.2 ztpw=635) EGFR (BEAKER) (test 59 mL/min/1.73 sq m ESTIMATED GFR IS NOT arze=1730) ACCURATE CREATININE CLEARANCE IN PREDICTING GLOMERULAR FILTRATION RATE. ESTIMATED GFR IS NOT APPLICABLE FOR DIALYSIS PATIENTS. POCT-GLUCOSE [id number] 21:33:00 Test Item Value Reference Range Comments POC-GLUCOSE METER (BEAKER) 163 mg/dL 70-110 TESTED AT [address] (test rcao=6663) [place] [id number] URINALYSIS W/ [id number] 18:19:00 Test Item Value Reference Range Comments COLOR (BEAKER) (test psvz=586) Light Yellow CLARITY (BEAKER) (test yntb=992) Clear SPECIFIC GRAVITY UA (BEAKER) (test 1.015 1.001-1.035 cqeu=366) PH UA (BEAKER) (test aqld=586) 6.5 5.0-8.0 PROTEIN UA (BEAKER) (test ipvf=083) Negative Negative GLUCOSE UA (BEAKER) (test pixo=739) Negative Negative KETONES UA (BEAKER) (test ildx=428) Negative Negative BILIRUBIN UA (BEAKER) (test Negative Negative eppo=147) BLOOD UA (BEAKER) (test xyjn=228) Negative Negative NITRITE UA (BEAKER) (test mecm=711) Negative Negative LEUKOCYTE ESTERASE UA (BEAKER) Negative Negative (test gzkl=113) UROBILINOGEN UA (BEAKER) (test 0.2 mg/dL 0.2-1.0 tyue=723) RBC UA (BEAKER) (test lmgc=822) 1 /HPF WBC UA (BEAKER) (test lczb=324) 4 /HPF SOURCE(BEAKER) (test phcu=6232) Urine, Straight Catheter POCT-GLUCOSE [id number] 16:40:00 Test Item Value Reference Range Comments POC-GLUCOSE METER (BEAKER) 120 mg/dL 70-110 TESTED AT [address] (test ydge=0412) [place] [id number] HEPATITIS PANEL, [id number] 10:25:00 Test Item Value Reference Range Comments HEPATITIS A IGM ANTIBODY (BEAKER) (test Nonreactive Nonreactive eqwv=823) HEPATITIS B CORE IGM ANTIBODY (BEAKER) (test Nonreactive Nonreactive jnsh=219) HEPATITIS C ANTIBODY (BEAKER) (test exqe=091) Nonreactive Nonreactive HEPATITIS B SURFACE ANTIGEN (2) (BEAKER) (test Nonreactive Nonreactive tfbl=7306) HIV-1 ANTIGEN WITH HIV-1/2 [id number] 10:25:00 Test Item Value Reference Range Comments HIV-1 ANTIGEN WITH HIV 1\\T\\2 ANTIBODY (2) Nonreactive Nonreactive (BEAKER) (test nlsn=4821) BASIC METABOLIC [id number] 10:05:00 Test Item Value Reference Range Comments SODIUM (BEAKER) (test 137 meq/L 136-145 zfrv=739) POTASSIUM (BEAKER) (test 3.8 meq/L 3.5-5.1 pyjy=963) CHLORIDE (BEAKER) (test 102 meq/L 98-107 ynnd=545) CO2 (BEAKER) (test 27 meq/L 22-29 toyx=469) BLOOD UREA NITROGEN 9 mg/dL 7-21 (BEAKER) (test dsht=424) CREATININE (BEAKER) (test 0.97 mg/dL 0.57-1.25 nfql=674) GLUCOSE RANDOM (BEAKER) 126 mg/dL 70-105 (test tpzi=529) CALCIUM (BEAKER) (test 9.2 mg/dL 8.4-10.2 ljrb=752) EGFR (BEAKER) (test 59 mL/min/1.73 sq m ESTIMATED GFR IS NOT aekv=4623) ACCURATE CREATININE CLEARANCE IN PREDICTING GLOMERULAR FILTRATION RATE. ESTIMATED GFR IS NOT APPLICABLE FOR DIALYSIS PATIENTS. CBC W/PLT COUNT & AUTO [id number] 09:58:00 Test Item Value Reference Range Comments WHITE BLOOD CELL COUNT (BEAKER) (test mtbd=341) 7.2 K/ L 4.0-10.0 RED BLOOD CELL COUNT (BEAKER) (test dhbm=521) 4.13 M/ L 4.00-5.00 HEMOGLOBIN (BEAKER) (test eodj=067) 12.2 GM/DL 12.0-15.0 HEMATOCRIT (BEAKER) (test lklu=626) 36.1 % 36.0-45.0 MEAN CORPUSCULAR VOLUME (BEAKER) (test ybqw=337) 87.4 fL 82.0-99.0 MEAN CORPUSCULAR HEMOGLOBIN (BEAKER) (test 29.4 pg 27.0-33.0 snfx=008) MEAN CORPUSCULAR HEMOGLOBIN CONC (BEAKER) (test 33.7 GM/DL 32.0-36.0 taab=030) RED CELL DISTRIBUTION WIDTH (BEAKER) (test 14.5 % 10.3-14.2 ftqy=324) PLATELET COUNT (BEAKER) (test oklr=401) 336 K/CU MM 150-430 MEAN PLATELET VOLUME (BEAKER) (test emew=952) 6.2 fL 6.5-10.5 NUCLEATED RED BLOOD CELLS (BEAKER) (test 0 /100 WBC 0-0 bths=918) NEUTROPHILS RELATIVE PERCENT (BEAKER) (test 61 % jzmq=102) LYMPHOCYTES RELATIVE PERCENT (BEAKER) (test 24 % ugrz=587) MONOCYTES RELATIVE PERCENT (BEAKER) (test 11 % acft=767) EOSINOPHILS RELATIVE PERCENT (BEAKER) (test 4 % jlen=113) BASOPHILS RELATIVE PERCENT (BEAKER) (test 1 % uzig=413) NEUTROPHILS ABSOLUTE COUNT (BEAKER) (test 4.41 K/ L 1.80-8.00 cepk=757) LYMPHOCYTES ABSOLUTE COUNT (BEAKER) (test 1.69 K/ L 1.48-4.50 gslz=169) MONOCYTES ABSOLUTE COUNT (BEAKER) (test 0.77 K/ L 0.00-1.30 sgbg=720) EOSINOPHILS ABSOLUTE COUNT (BEAKER) (test 0.27 K/ L 0.00-0.50 yyzh=482) BASOPHILS ABSOLUTE COUNT (BEAKER) (test 0.05 K/ L 0.00-0.20 xqhn=830) 0.00POCT-GLUCOSE [id number] 08:28:00 Test Item Value Reference Range Comments POC-GLUCOSE METER (BEAKER) 134 mg/dL 70-110 TESTED AT [address] (test hyod=5956) [place] [id number] POCT-GLUCOSE [id number] 21:33:00 Test Item Value Reference Range Comments POC-GLUCOSE METER (BEAKER) 142 mg/dL 70-110 TESTED AT [address] (test jick=2874) [place] [id number] URINALYSIS W/ [id number] 13:59:00 Test Item Value Reference Range Comments COLOR (BEAKER) (test bemu=242) Yellow CLARITY (BEAKER) (test szkq=876) Clear SPECIFIC GRAVITY UA (BEAKER) (test eecx=412) 1.035 1.001-1.035 PH UA (BEAKER) (test htpc=264) 5.5 5.0-8.0 PROTEIN UA (BEAKER) (test vhti=743) 20 mg/dL Negative GLUCOSE UA (BEAKER) (test ulno=168) Negative Negative KETONES UA (BEAKER) (test iqvq=998) Negative Negative BILIRUBIN UA (BEAKER) (test wbmw=192) Negative Negative BLOOD UA (BEAKER) (test kuna=563) Small Negative NITRITE UA (BEAKER) (test yylh=993) Negative Negative LEUKOCYTE ESTERASE UA (BEAKER) (test mmhc=212) Large Negative UROBILINOGEN UA (BEAKER) (test gjoe=350) 0.2 mg/dL 0.2-1.0 RBC UA (BEAKER) (test fnap=553) < /HPF WBC UA (BEAKER) (test ncty=718) 23 /HPF SQUAMOUS EPITHELIAL (BEAKER) (test rfkc=636) < /HPF SOURCE(BEAKER) (test ffpd=0118) COMPREHENSIVE METABOLIC [id number] 12:59:00 Test Item Value Reference Range Comments TOTAL PROTEIN (BEAKER) 6.3 gm/dL 6.0-8.3 (test rwqn=717) ALBUMIN (BEAKER) (test 3.3 g/dL 3.5-5.0 ewkw=0227) ALKALINE PHOSPHATASE 62 U/L 40-150 (BEAKER) (test caqm=791) BILIRUBIN TOTAL (BEAKER) 0.2 mg/dL 0.2-1.2 (test qstn=351) SODIUM (BEAKER) (test 136 meq/L 136-145 iotl=113) POTASSIUM (BEAKER) (test 3.9 meq/L 3.5-5.1 fbeh=845) CHLORIDE (BEAKER) (test 103 meq/L 98-107 jwqo=389) CO2 (BEAKER) (test 24 meq/L 22-29 fypu=919) BLOOD UREA NITROGEN 14 mg/dL 7-21 (BEAKER) (test yuub=287) CREATININE (BEAKER) (test 0.81 mg/dL 0.57-1.25 bdcr=148) GLUCOSE RANDOM (BEAKER) 111 mg/dL 70-105 (test atur=067) CALCIUM (BEAKER) (test 9.2 mg/dL 8.4-10.2 dsbe=329) AST (SGOT) (BEAKER) (test 19 U/L 5-34 xxtc=969) ALT (SGPT) (BEAKER) (test 14 U/L 6-55 aeqo=541) EGFR (BEAKER) (test 73 mL/min/1.73 sq m ESTIMATED GFR IS NOT wxgp=6590) ACCURATE CREATININE CLEARANCE IN PREDICTING GLOMERULAR FILTRATION RATE. ESTIMATED GFR IS NOT APPLICABLE FOR DIALYSIS PATIENTS. [id number] 12:31:00 Test Item Value Reference Range Comments PROTIME (BEAKER) (test amtt=485) 13.7 seconds 11.7-14.7 INR (BEAKER) (test uwjx=431) 1.1 <=5.9 PARTIAL THROMBOPLASTIN TIME (BEAKER) (test 35.2 seconds 22.5-36.0 sehq=338) RECOMMENDED COUMADIN/WARFARIN INR THERAPY RANGESSTANDARD DOSE: 2.0 - 3.0 Includes: PROPHYLAXIS forvenous thrombosis, systemic embolization; TREATMENT for venous thrombosis and/or pulmonary embolus.HIGH RISK: Target INR is 2.5-3.5 for patients with mechanical heart valves.CBC W/PLT COUNT & AUTO [id number] 12:18:00 Test Item Value Reference Range Comments WHITE BLOOD CELL COUNT (BEAKER) (test ulxd=420) 8.6 K/ L 4.0-10.0 RED BLOOD CELL COUNT (BEAKER) (test licb=748) 4.17 M/ L 4.00-5.00 HEMOGLOBIN (BEAKER) (test ckpm=463) 12.4 GM/DL 12.0-15.0 HEMATOCRIT (BEAKER) (test rbsl=145) 36.8 % 36.0-45.0 MEAN CORPUSCULAR VOLUME (BEAKER) (test lsrj=480) 88.3 fL 82.0-99.0 MEAN CORPUSCULAR HEMOGLOBIN (BEAKER) (test 29.8 pg 27.0-33.0 umte=445) MEAN CORPUSCULAR HEMOGLOBIN CONC (BEAKER) (test 33.7 GM/DL 32.0-36.0 belg=946) RED CELL DISTRIBUTION WIDTH (BEAKER) (test 14.4 % 10.3-14.2 xhsz=723) PLATELET COUNT (BEAKER) (test sskv=492) 332 K/CU MM 150-430 MEAN PLATELET VOLUME (BEAKER) (test kaum=526) 6.3 fL 6.5-10.5 NUCLEATED RED BLOOD CELLS (BEAKER) (test 0 /100 WBC 0-0 xzsr=934) NEUTROPHILS RELATIVE PERCENT (BEAKER) (test 51 % qxto=801) LYMPHOCYTES RELATIVE PERCENT (BEAKER) (test 33 % lwrz=142) MONOCYTES RELATIVE PERCENT (BEAKER) (test 12 % yfbh=690) EOSINOPHILS RELATIVE PERCENT (BEAKER) (test 3 % whtv=985) BASOPHILS RELATIVE PERCENT (BEAKER) (test 1 % gspb=273) NEUTROPHILS ABSOLUTE COUNT (BEAKER) (test 4.41 K/ L 1.80-8.00 ktza=782) LYMPHOCYTES ABSOLUTE COUNT (BEAKER) (test 2.80 K/ L 1.48-4.50 yzin=858) MONOCYTES ABSOLUTE COUNT (BEAKER) (test 1.00 K/ L 0.00-1.30 zalo=856) EOSINOPHILS ABSOLUTE COUNT (BEAKER) (test 0.28 K/ L 0.00-0.50 lfqs=060) BASOPHILS ABSOLUTE COUNT (BEAKER) (test 0.09 K/ L 0.00-0.20 gloz=806) 0.00BLOOD [id number] 06:00:00 Test Item Value Reference Range Comments CULTURE (BEAKER) (test nvhm=6148) No growth in 5 days URINE [id number] 13:38:00 Test Item Value Reference Range Comments CULTURE (BEAKER) (test 50-59,000 col/mL Beronica vxqp=8117) albicans <10,000 col/mL Gram Negative byron<10,000 col/mL skin floraURINALYSIS W/ [id number] 03:34:00 Test Item Value Reference Range Comments COLOR (BEAKER) (test zexm=013) Yellow CLARITY (BEAKER) (test coxb=766) Hazy SPECIFIC GRAVITY UA (BEAKER) (test jtyd=682) 1.014 1.001-1.035 PH UA (BEAKER) (test ygos=223) 5.5 5.0-8.0 PROTEIN UA (BEAKER) (test nnhu=226) 70 mg/dL Negative GLUCOSE UA (BEAKER) (test hxaq=737) Negative Negative KETONES UA (BEAKER) (test rwpj=384) Negative Negative BILIRUBIN UA (BEAKER) (test xqzb=402) Negative Negative BLOOD UA (BEAKER) (test zhon=232) Moderate Negative NITRITE UA (BEAKER) (test geoh=714) Negative Negative LEUKOCYTE ESTERASE UA (BEAKER) (test icrn=297) Large Negative UROBILINOGEN UA (BEAKER) (test jfus=125) 0.2 mg/dL 0.2-1.0 RBC UA (BEAKER) (test xozb=035) 79 /HPF WBC UA (BEAKER) (test cnkp=872) > /HPF MUCUS (BEAKER) (test ucbq=7206) Rare SQUAMOUS EPITHELIAL (BEAKER) (test zfys=025) 2 /HPF SOURCE(BEAKER) (test vawf=9270) [id number] 02:16:00 Test Item Value Reference Range Comments LIPASE (BEAKER) (test tsxb=760) 8 U/L 8-78 [id number] 02:16:00 Test Item Value Reference Range Comments AMYLASE (BEAKER) (test nwbk=452) 21 U/L 25-125 BASIC METABOLIC [id number] 02:16:00 Test Item Value Reference Range Comments SODIUM (BEAKER) (test 136 meq/L 136-145 akib=598) POTASSIUM (BEAKER) (test 4.3 meq/L 3.5-5.1 ocyg=804) CHLORIDE (BEAKER) (test 101 meq/L 98-107 vljt=577) CO2 (BEAKER) (test 26 meq/L 22-29 oday=068) BLOOD UREA NITROGEN 15 mg/dL 7-21 (BEAKER) (test gfpf=692) CREATININE (BEAKER) (test 0.85 mg/dL 0.57-1.25 ufjc=751) GLUCOSE RANDOM (BEAKER) 144 mg/dL 70-105 (test qlhv=648) CALCIUM (BEAKER) (test 9.9 mg/dL 8.4-10.2 bglg=794) EGFR (BEAKER) (test 69 mL/min/1.73 sq m ESTIMATED GFR IS NOT vcce=9544) ACCURATE CREATININE CLEARANCE IN PREDICTING GLOMERULAR FILTRATION RATE. ESTIMATED GFR IS NOT APPLICABLE FOR DIALYSIS PATIENTS. HEPATIC FUNCTION [id number] 02:16:00 Test Item Value Reference Range Comments TOTAL PROTEIN (BEAKER) (test zhtg=178) 7.3 gm/dL 6.0-8.3 ALBUMIN (BEAKER) (test ktqv=3495) 3.9 g/dL 3.5-5.0 BILIRUBIN TOTAL (BEAKER) (test tscf=035) 0.4 mg/dL 0.2-1.2 BILIRUBIN DIRECT (BEAKER) (test arle=054) 0.2 mg/dL 0.1-0.5 ALKALINE PHOSPHATASE (BEAKER) (test fqzr=307) 78 U/L 40-150 AST (SGOT) (BEAKER) (test qadn=273) 10 U/L 5-34 ALT (SGPT) (BEAKER) (test nkyz=146) 16 U/L 6-55 CBC W/PLT COUNT & AUTO [id number] 02:05:00 Test Item Value Reference Range Comments WHITE BLOOD CELL COUNT (BEAKER) (test wdkm=679) 15.7 K/ L 4.0-10.0 RED BLOOD CELL COUNT (BEAKER) (test bkav=404) 4.51 M/ L 4.00-5.00 HEMOGLOBIN (BEAKER) (test yhgc=660) 13.1 GM/DL 12.0-15.0 HEMATOCRIT (BEAKER) (test vihs=558) 40.9 % 36.0-45.0 MEAN CORPUSCULAR VOLUME (BEAKER) (test uzuf=348) 90.9 fL 82.0-99.0 MEAN CORPUSCULAR HEMOGLOBIN (BEAKER) (test 29.1 pg 27.0-33.0 puls=021) MEAN CORPUSCULAR HEMOGLOBIN CONC (BEAKER) (test 32.1 GM/DL 32.0-36.0 utln=253) RED CELL DISTRIBUTION WIDTH (BEAKER) (test 14.4 % 10.3-14.2 zhxx=204) PLATELET COUNT (BEAKER) (test gigo=686) 342 K/CU MM 150-430 MEAN PLATELET VOLUME (BEAKER) (test ltfd=137) 6.3 fL 6.5-10.5 NUCLEATED RED BLOOD CELLS (BEAKER) (test 0 /100 WBC 0-0 eabp=730) NEUTROPHILS RELATIVE PERCENT (BEAKER) (test 64 % dmse=125) LYMPHOCYTES RELATIVE PERCENT (BEAKER) (test 24 % rndv=543) MONOCYTES RELATIVE PERCENT (BEAKER) (test 9 % jkym=739) EOSINOPHILS RELATIVE PERCENT (BEAKER) (test 3 % eszm=786) BASOPHILS RELATIVE PERCENT (BEAKER) (test 1 % scaa=961) NEUTROPHILS ABSOLUTE COUNT (BEAKER) (test 9.98 K/ L 1.80-8.00 metl=314) LYMPHOCYTES ABSOLUTE COUNT (BEAKER) (test 3.72 K/ L 1.48-4.50 ydlj=656) MONOCYTES ABSOLUTE COUNT (BEAKER) (test 1.35 K/ L 0.00-1.30 kbxf=376) EOSINOPHILS ABSOLUTE COUNT (BEAKER) (test 0.48 K/ L 0.00-0.50 zaft=386) BASOPHILS ABSOLUTE COUNT (BEAKER) (test 0.17 K/ L 0.00-0.20 evxy=507) 0.00TISSUE [id number] 16:41:00Surgical Pathology Report Case: [id number] Authorizing Provider: Jag Escalera MD Collected: 01/23/2017 1827 Ordering Location: [facility] Received: 01/24/2017 0855 SERVICES Pathologist: Karma [...] cm. Thetissue is entirely submitted in A1. CG/ewPerformed.[id number] 08:38: 00 Test Item Value Reference Range Comments CULTURE (BEAKER) (test hywf=7387) No anaerobes isolated SURGICALLY OBTAINED CULTURE + GRAM [id number] 15:59:00 Test Item Value Reference Range Comments CULTURE (BEAKER) (test BERONICA ALBICANS 3+ Beronica albicans kzfc=5702) 5-Flurocytosine (test Susceptible 0-4 , sbgk=040) Intermediate <0 or >4 , Resistant >16 Amphotericin B (test Susceptible >0-0 , No tshn=840) Interpretations Established <=0 or >0 Caspofungin acetate Susceptible 0-0.25 , Non (test qrsv=563) Fluconazole (test Susceptible 0-2 , Dose pjpj=137) Dependent Susceptible <0 or >2 , Resi Itraconazole (test Susceptible 0-0.125 , Dose trze=324) Dependent Susceptible <0 or >.125 Micafungin (test Susceptible 0-0.25 , Non zspn=981) Posaconazole (test Susceptible >0-0 , No bffp=850) Interpretations Established <=0 or >0 Voriconazole (test Susceptible 0-0.12 , Dose ofcm=448) Dependent Susceptible <0 or >.12 , GRAM STAIN RESULT 4+ WBCs (BEAKER) (test npon=1941) GRAM STAIN RESULT 1+ yeast (BEAKER) (test ltdq=139752) POCT-GLUCOSE [id number] 13:12:00 Test Item Value Reference Range Comments POC-GLUCOSE METER (BEAKER) 116 mg/dL 70-110 TESTED AT [address] (test kpvy=5064) [place] [id number] POCT-GLUCOSE [id number] 12:02:00 Test Item Value Reference Range Comments POC-GLUCOSE METER (BEAKER) 142 mg/dL 70-110 TESTED AT [address] (test wmlb=4145) [place] [id number] POCT-GLUCOSE [id number] 08:20:00 Test Item Value Reference Range Comments POC-GLUCOSE METER (BEAKER) 169 mg/dL 70-110 TESTED AT [address] (test ohwu=3476) [place] [address] [id number] 04:58:00 Test Item Value Reference Range Comments PHOSPHORUS (BEAKER) (test yksr=141) 2.0 mg/dL 2.3-4.7 [id number] 04:58:00 Test Item Value Reference Range Comments MAGNESIUM (BEAKER) (test yyfw=576) 2.0 mg/dL 1.6-2.6 BASIC METABOLIC [id number] 04:58:00 Test Item Value Reference Range Comments SODIUM (BEAKER) (test 140 meq/L 136-145 ayvt=472) POTASSIUM (BEAKER) (test 4.0 meq/L 3.5-5.1 piwu=427) CHLORIDE (BEAKER) (test 109 meq/L 98-107 sqkh=617) CO2 (BEAKER) (test 21 meq/L 22-29 dmvw=808) BLOOD UREA NITROGEN 14 mg/dL 7-21 (BEAKER) (test lpyv=690) CREATININE (BEAKER) (test 0.82 mg/dL 0.57-1.25 fvuh=582) GLUCOSE RANDOM (BEAKER) 135 mg/dL 70-105 (test pfsh=954) CALCIUM (BEAKER) (test 8.8 mg/dL 8.4-10.2 lmwy=698) EGFR (BEAKER) (test 72 mL/min/1.73 sq m ESTIMATED GFR IS NOT zfzh=8706) ACCURATE CREATININE CLEARANCE IN PREDICTING GLOMERULAR FILTRATION RATE. ESTIMATED GFR IS NOT APPLICABLE FOR DIALYSIS PATIENTS. CBC W/PLT COUNT & AUTO [id number] 04:14:00 Test Item Value Reference Range Comments WHITE BLOOD CELL COUNT (BEAKER) (test byix=661) 12.1 K/ L 4.0-10.0 RED BLOOD CELL COUNT (BEAKER) (test gdph=431) 4.18 M/ L 4.00-5.00 HEMOGLOBIN (BEAKER) (test psyq=848) 12.2 GM/DL 12.0-15.0 HEMATOCRIT (BEAKER) (test qkxf=683) 37.8 % 36.0-45.0 MEAN CORPUSCULAR VOLUME (BEAKER) (test dwje=467) 90.4 fL 82.0-99.0 MEAN CORPUSCULAR HEMOGLOBIN (BEAKER) (test 29.3 pg 27.0-33.0 oqyf=545) MEAN CORPUSCULAR HEMOGLOBIN CONC (BEAKER) (test 32.4 GM/DL 32.0-36.0 ckfk=553) RED CELL DISTRIBUTION WIDTH (BEAKER) (test 14.7 % 10.3-14.2 wqns=900) PLATELET COUNT (BEAKER) (test zzeu=161) 211 K/CU MM 150-430 MEAN PLATELET VOLUME (BEAKER) (test yxgd=273) 6.8 fL 6.5-10.5 NUCLEATED RED BLOOD CELLS (BEAKER) (test 0 /100 WBC 0-0 ifbp=998) NEUTROPHILS RELATIVE PERCENT (BEAKER) (test 63 % hmuj=108) LYMPHOCYTES RELATIVE PERCENT (BEAKER) (test 26 % kwia=126) MONOCYTES RELATIVE PERCENT (BEAKER) (test 9 % mlpp=359) EOSINOPHILS RELATIVE PERCENT (BEAKER) (test 2 % ulov=433) BASOPHILS RELATIVE PERCENT (BEAKER) (test 1 % lvhr=157) NEUTROPHILS ABSOLUTE COUNT (BEAKER) (test 7.57 K/ L 1.80-8.00 fkvh=077) LYMPHOCYTES ABSOLUTE COUNT (BEAKER) (test 3.12 K/ L 1.48-4.50 zmbg=947) MONOCYTES ABSOLUTE COUNT (BEAKER) (test 1.09 K/ L 0.00-1.30 eoae=281) EOSINOPHILS ABSOLUTE COUNT (BEAKER) (test 0.24 K/ L 0.00-0.50 eqec=072) BASOPHILS ABSOLUTE COUNT (BEAKER) (test 0.08 K/ L 0.00-0.20 ytru=338) 0.00POCT-GLUCOSE [id number] 21:38:00 Test Item Value Reference Range Comments POC-GLUCOSE METER (BEAKER) 137 mg/dL 70-110 TESTED AT [address] (test gikk=9418) [place] [address] POCT-GLUCOSE [id number] 11:40:00 Test Item Value Reference Range Comments POC-GLUCOSE METER (BEAKER) 187 mg/dL 70-110 TESTED AT [address] (test wwmj=4983) [place] [address] POCT-GLUCOSE [id number] 06:44:00 Test Item Value Reference Range Comments POC-GLUCOSE METER (BEAKER) 160 mg/dL 70-110 TESTED AT [address] (test flcj=9527) [place] [address] BLOOD GAS, [id number] 04:11:00 Test Item Value Reference Range Comments PH ARTERIAL (BEAKER) (test zpjh=773) 7.36 7.35-7.45 PCO2 ARTERIAL (BEAKER) (test thyg=365) 41 mmHg 35-45 PO2 ARTERIAL (BEAKER) (test gnep=150) 76 mmHg 80-90 O2 SATURATION ARTERIAL (BEAKER) (test ljqv=382) 94.7 % 96.0-97.0 HCO3 ARTERIAL (BEAKER) (test uvyx=977) 23 mmol/L 21-29 BASE EXCESS ARTERIAL (BEAKER) (test dqyq=797) -2.7 mmol/L -2.0-3.0 PATIENT TEMPERATURE (BEAKER) (test lcry=4493) 37.0 C FIO2 (BEAKER) (test fdgn=9034) 40.0 % [id number] 04:09:00 Test Item Value Reference Range Comments PHOSPHORUS (BEAKER) (test dnkn=713) 2.9 mg/dL 2.3-4.7 [id number] 04:09:00 Test Item Value Reference Range Comments MAGNESIUM (BEAKER) (test vjqi=337) 2.1 mg/dL 1.6-2.6 BASIC METABOLIC [id number] 04:09:00 Test Item Value Reference Range Comments SODIUM (BEAKER) (test 139 meq/L 136-145 sukd=409) POTASSIUM (BEAKER) (test 4.2 meq/L 3.5-5.1 ziiy=162) CHLORIDE (BEAKER) (test 108 meq/L 98-107 jeds=628) CO2 (BEAKER) (test 20 meq/L 22-29 oife=868) BLOOD UREA NITROGEN 16 mg/dL 7-21 (BEAKER) (test prmg=260) CREATININE (BEAKER) (test 0.80 mg/dL 0.57-1.25 cvod=120) GLUCOSE RANDOM (BEAKER) 172 mg/dL 70-105 (test kvif=951) CALCIUM (BEAKER) (test 8.2 mg/dL 8.4-10.2 hdxg=896) EGFR (BEAKER) (test 74 mL/min/1.73 sq m ESTIMATED GFR IS NOT lpuy=8043) ACCURATE CREATININE CLEARANCE IN PREDICTING GLOMERULAR FILTRATION RATE. ESTIMATED GFR IS NOT APPLICABLE FOR DIALYSIS PATIENTS. CBC W/PLT COUNT & AUTO [id number] 03:57:00 Test Item Value Reference Range Comments WHITE BLOOD CELL COUNT (BEAKER) (test zhml=947) 14.9 K/ L 4.0-10.0 RED BLOOD CELL COUNT (BEAKER) (test gkea=415) 4.17 M/ L 4.00-5.00 HEMOGLOBIN (BEAKER) (test bpzo=959) 12.7 GM/DL 12.0-15.0 HEMATOCRIT (BEAKER) (test amem=714) 37.4 % 36.0-45.0 MEAN CORPUSCULAR VOLUME (BEAKER) (test xynq=957) 89.6 fL 82.0-99.0 MEAN CORPUSCULAR HEMOGLOBIN (BEAKER) (test 30.5 pg 27.0-33.0 uxbj=105) MEAN CORPUSCULAR HEMOGLOBIN CONC (BEAKER) (test 34.0 GM/DL 32.0-36.0 uypt=975) RED CELL DISTRIBUTION WIDTH (BEAKER) (test 12.8 % 10.3-14.2 ykxx=448) PLATELET COUNT (BEAKER) (test mmvl=296) 217 K/CU MM 150-430 MEAN PLATELET VOLUME (BEAKER) (test zand=419) 6.4 fL 6.5-10.5 NUCLEATED RED BLOOD CELLS (BEAKER) (test 0 /100 WBC 0-0 nwdo=337) NEUTROPHILS RELATIVE PERCENT (BEAKER) (test 74 % wwir=712) LYMPHOCYTES RELATIVE PERCENT (BEAKER) (test 17 % hlbb=833) MONOCYTES RELATIVE PERCENT (BEAKER) (test 8 % gnlp=188) EOSINOPHILS RELATIVE PERCENT (BEAKER) (test 0 % tksy=967) BASOPHILS RELATIVE PERCENT (BEAKER) (test 0 % bwab=554) NEUTROPHILS ABSOLUTE COUNT (BEAKER) (test 11.10 K/ L 1.80-8.00 xvzv=602) LYMPHOCYTES ABSOLUTE COUNT (BEAKER) (test 2.60 K/ L 1.48-4.50 yenw=488) MONOCYTES ABSOLUTE COUNT (BEAKER) (test 1.13 K/ L 0.00-1.30 roui=775) EOSINOPHILS ABSOLUTE COUNT (BEAKER) (test 0.03 K/ L 0.00-0.50 zcqw=695) BASOPHILS ABSOLUTE COUNT (BEAKER) (test 0.07 K/ L 0.00-0.20 fnlc=588) 0.00POCT-GLUCOSE [id number] 00:34:00 Test Item Value Reference Range Comments POC-GLUCOSE METER (BEAKER) 243 mg/dL 70-110 TESTED AT [facility] [address] [facility] (test zahp=0223) [facility] [address] [id number] 21:39:00 Test Item Value Reference Range Comments PHOSPHORUS (BEAKER) (test zgql=374) 3.7 mg/dL 2.3-4.7 [id number] 21:39:00 Test Item Value Reference Range Comments MAGNESIUM (BEAKER) (test jafy=690) 1.6 mg/dL 1.6-2.6 COMPREHENSIVE METABOLIC [id number] 21:39:00 Test Item Value Reference Range Comments TOTAL PROTEIN (BEAKER) 6.6 gm/dL 6.0-8.3 (test xucs=506) ALBUMIN (BEAKER) (test 4.1 g/dL 3.5-5.0 eguu=2011) ALKALINE PHOSPHATASE 63 U/L 40-150 (BEAKER) (test glpw=988) BILIRUBIN TOTAL (BEAKER) 0.5 mg/dL 0.2-1.2 (test kssc=903) SODIUM (BEAKER) (test 140 meq/L 136-145 zlkm=545) POTASSIUM (BEAKER) (test 3.8 meq/L 3.5-5.1 lkvi=847) CHLORIDE (BEAKER) (test 108 meq/L 98-107 qtyv=025) CO2 (BEAKER) (test 20 meq/L 22-29 pvsg=248) BLOOD UREA NITROGEN 20 mg/dL 7-21 (BEAKER) (test sbno=543) CREATININE (BEAKER) (test 0.92 mg/dL 0.57-1.25 tjvv=748) GLUCOSE RANDOM (BEAKER) 191 mg/dL 70-105 (test xxpb=852) CALCIUM (BEAKER) (test 8.6 mg/dL 8.4-10.2 ghuf=219) AST (SGOT) (BEAKER) (test 16 U/L 5-34 wgms=966) ALT (SGPT) (BEAKER) (test 20 U/L 6-55 ejkr=957) EGFR (BEAKER) (test 63 mL/min/1.73 sq m ESTIMATED GFR IS NOT zeyb=2894) ACCURATE CREATININE CLEARANCE IN PREDICTING GLOMERULAR FILTRATION RATE. ESTIMATED GFR IS NOT APPLICABLE FOR DIALYSIS PATIENTS. CBC W/PLT COUNT & AUTO [id number] 21:24:00 Test Item Value Reference Range Comments WHITE BLOOD CELL COUNT (BEAKER) (test xvst=198) 17.1 K/ L 4.0-10.0 RED BLOOD CELL COUNT (BEAKER) (test cfmo=437) 4.55 M/ L 4.00-5.00 HEMOGLOBIN (BEAKER) (test yzwu=441) 13.4 GM/DL 12.0-15.0 HEMATOCRIT (BEAKER) (test dyvc=658) 40.7 % 36.0-45.0 MEAN CORPUSCULAR VOLUME (BEAKER) (test pgrj=290) 89.4 fL 82.0-99.0 MEAN CORPUSCULAR HEMOGLOBIN (BEAKER) (test 29.4 pg 27.0-33.0 vzqs=346) MEAN CORPUSCULAR HEMOGLOBIN CONC (BEAKER) (test 32.9 GM/DL 32.0-36.0 eabv=816) RED CELL DISTRIBUTION WIDTH (BEAKER) (test 14.7 % 10.3-14.2 sonw=722) PLATELET COUNT (BEAKER) (test pzha=105) 228 K/CU MM 150-430 MEAN PLATELET VOLUME (BEAKER) (test lilx=331) 6.4 fL 6.5-10.5 NUCLEATED RED BLOOD CELLS (BEAKER) (test 0 /100 WBC 0-0 sljs=192) NEUTROPHILS RELATIVE PERCENT (BEAKER) (test 86 % zija=500) LYMPHOCYTES RELATIVE PERCENT (BEAKER) (test 10 % joov=737) MONOCYTES RELATIVE PERCENT (BEAKER) (test 4 % zhva=940) EOSINOPHILS RELATIVE PERCENT (BEAKER) (test 0 % imxm=134) BASOPHILS RELATIVE PERCENT (BEAKER) (test 0 % ntue=741) NEUTROPHILS ABSOLUTE COUNT (BEAKER) (test 14.60 K/ L 1.80-8.00 zyyh=275) LYMPHOCYTES ABSOLUTE COUNT (BEAKER) (test 1.68 K/ L 1.48-4.50 koqv=790) MONOCYTES ABSOLUTE COUNT (BEAKER) (test 0.70 K/ L 0.00-1.30 eaxj=567) EOSINOPHILS ABSOLUTE COUNT (BEAKER) (test 0.04 K/ L 0.00-0.50 jtop=949) BASOPHILS ABSOLUTE COUNT (BEAKER) (test 0.06 K/ L 0.00-0.20 tign=613) 0.00BLOOD GAS, [id number] 21:20:00 Test Item Value Reference Range Comments PH ARTERIAL (BEAKER) (test xydm=225) 7.28 7.35-7.45 PCO2 ARTERIAL (BEAKER) (test zjpz=795) 51 mmHg 35-45 PO2 ARTERIAL (BEAKER) (test inbb=273) 150 mmHg 80-90 O2 SATURATION ARTERIAL (BEAKER) (test jpmr=135) 98.7 % 96.0-97.0 HCO3 ARTERIAL (BEAKER) (test boxp=111) 24 mmol/L 21-29 BASE EXCESS ARTERIAL (BEAKER) (test mtlb=179) -3.7 mmol/L -2.0-3.0 PATIENT TEMPERATURE (BEAKER) (test zwsw=0961) 36.9 C FIO2 (BEAKER) (test qvyf=1216) 100.0 % BLOOD GAS, [id number] 18:58:00 Test Item Value Reference Range Comments PH ARTERIAL (BEAKER) (test szym=388) 7.37 7.35-7.45 PCO2 ARTERIAL (BEAKER) (test kudh=883) 39 mmHg 35-45 PO2 ARTERIAL (BEAKER) (test kwmf=852) 116 mmHg 80-90 O2 SATURATION ARTERIAL (BEAKER) (test ggsc=096) 98.1 % 96.0-97.0 HCO3 ARTERIAL (BEAKER) (test mhqz=751) 22 mmol/L 21-29 BASE EXCESS ARTERIAL (BEAKER) (test qpmt=684) -3.2 mmol/L -2.0-3.0 PATIENT TEMPERATURE (BEAKER) (test mkan=0847) 37.0 C GLUCOSE-STAT [id number] 18:58:00 Test Item Value Reference Range Comments GLUCOSE RANDOM (BEAKER) (test nowd=803) 179 mg/dL 70-110 CALCIUM, [id number] 18:58:00 Test Item Value Reference Range Comments CALCIUM IONIZED (BEAKER) (test xhuy=790) 0.96 mmol/L 1.12-1.27 PH, BLOOD (BEAKER) (test krvv=8267) 7.37 SODIUM NA-STAT [id number] 18:57:00 Test Item Value Reference Range Comments SODIUM (BEAKER) (test zuss=420) 138 meq/L 135-148 POTASSIUM-STAT [id number] 18:57:00 Test Item Value Reference Range Comments POTASSIUM (BEAKER) (test rpla=975) 3.8 meq/L 3.6-5.5 HGB/HCT (H&H) - STAT [id number] 18:57:00 Test Item Value Reference Range Comments HEMOGLOBIN (BEAKER) (test srhl=519) 12.8 g/dL 12.0-15.0 HEMATOCRIT (BEAKER) (test ecoy=711) 38.0 % 36.0-45.0 SODIUM NA-STAT [id number] 17:20:00 Test Item Value Reference Range Comments SODIUM (BEAKER) (test ortp=733) 138 meq/L 135-148 POTASSIUM-STAT [id number] 17:20:00 Test Item Value Reference Range Comments POTASSIUM (BEAKER) (test epfm=289) 3.8 meq/L 3.6-5.5 HGB/HCT (H&H) - STAT [id number] 17:20:00 Test Item Value Reference Range Comments HEMOGLOBIN (BEAKER) (test wrwf=572) 12.8 g/dL 12.0-15.0 HEMATOCRIT (BEAKER) (test ryqf=002) 38.0 % 36.0-45.0 BLOOD GAS, [id number] 17:20:00 Test Item Value Reference Range Comments PH ARTERIAL (BEAKER) (test lblr=925) 7.38 7.35-7.45 PCO2 ARTERIAL (BEAKER) (test utxo=562) 40 mmHg 35-45 PO2 ARTERIAL (BEAKER) (test darg=072) 103 mmHg 80-90 O2 SATURATION ARTERIAL (BEAKER) (test eqpt=302) 97.6 % 96.0-97.0 HCO3 ARTERIAL (BEAKER) (test lyar=611) 23 mmol/L 21-29 BASE EXCESS ARTERIAL (BEAKER) (test ljih=365) -1.9 mmol/L -2.0-3.0 PATIENT TEMPERATURE (BEAKER) (test uzpo=7136) 37.0 C FIO2 (BEAKER) (test ivaj=1373) 100.0 % GLUCOSE-STAT [id number] 17:20:00 Test Item Value Reference Range Comments GLUCOSE RANDOM (BEAKER) (test wppo=855) 167 mg/dL 70-110 CALCIUM, [id number] 17:20:00 Test Item Value Reference Range Comments CALCIUM IONIZED (BEAKER) (test cdgl=181) 1.09 mmol/L 1.12-1.27 PH, BLOOD (BEAKER) (test vndv=4268) 7.38 BLOOD GAS, [id number] 16:34:00 Test Item Value Reference Range Comments PH ARTERIAL (BEAKER) (test phfk=451) 7.31 7.35-7.45 PCO2 ARTERIAL (BEAKER) (test zenp=787) 49 mmHg 35-45 PO2 ARTERIAL (BEAKER) (test kduj=146) 141 mmHg 80-90 O2 SATURATION ARTERIAL (BEAKER) (test caxo=947) 98.6 % 96.0-97.0 HCO3 ARTERIAL (BEAKER) (test oibf=791) 24 mmol/L 21-29 BASE EXCESS ARTERIAL (BEAKER) (test ryjl=645) -2.3 mmol/L -2.0-3.0 PATIENT TEMPERATURE (BEAKER) (test uxgq=0707) 37.0 C FIO2 (BEAKER) (test ftrx=0806) 100.0 % GLUCOSE-STAT [id number] 16:34:00 Test Item Value Reference Range Comments GLUCOSE RANDOM (BEAKER) (test vjtw=010) 151 mg/dL 70-110 CALCIUM, [id number] 16:34:00 Test Item Value Reference Range Comments CALCIUM IONIZED (BEAKER) (test erjd=204) 1.11 mmol/L 1.12-1.27 PH, BLOOD (BEAKER) (test iwgz=9664) 7.31 SODIUM NA-STAT [id number] 16:33:00 Test Item Value Reference Range Comments SODIUM (BEAKER) (test tzww=306) 139 meq/L 135-148 POTASSIUM-STAT [id number] 16:33:00 Test Item Value Reference Range Comments POTASSIUM (BEAKER) (test yxij=370) 3.6 meq/L 3.6-5.5 HGB/HCT (H&H) - STAT [id number] 16:33:00 Test Item Value Reference Range Comments HEMOGLOBIN (BEAKER) (test yiio=130) 13.0 g/dL 12.0-15.0 HEMATOCRIT (BEAKER) (test gvsr=271) 38.0 % 36.0-45.0 BLOOD GAS, [id number] 15:56:00 Test Item Value Reference Range Comments PH ARTERIAL (BEAKER) (test przl=348) 7.34 7.35-7.45 PCO2 ARTERIAL (BEAKER) (test ryam=101) 46 mmHg 35-45 PO2 ARTERIAL (BEAKER) (test raqr=214) 87 mmHg 80-90 O2 SATURATION ARTERIAL (BEAKER) (test skfq=490) 96.4 % 96.0-97.0 HCO3 ARTERIAL (BEAKER) (test ilmf=234) 24 mmol/L 21-29 BASE EXCESS ARTERIAL (BEAKER) (test iwyv=366) -2.0 mmol/L -2.0-3.0 PATIENT TEMPERATURE (BEAKER) (test bxkl=1648) 36.1 C FIO2 (BEAKER) (test itzc=8090) 100.0 % GLUCOSE-STAT [id number] 15:56:00 Test Item Value Reference Range Comments GLUCOSE RANDOM (BEAKER) (test wypk=660) 142 mg/dL 70-110 CALCIUM, [id number] 15:56:00 Test Item Value Reference Range Comments CALCIUM IONIZED (BEAKER) (test zmmc=262) 1.03 mmol/L 1.12-1.27 PH, BLOOD (BEAKER) (test douh=3720) 7.32 SODIUM NA-STAT [id number] 15:55:00 Test Item Value Reference Range Comments SODIUM (BEAKER) (test bpwv=589) 138 meq/L 135-148 POTASSIUM-STAT [id number] 15:55:00 Test Item Value Reference Range Comments POTASSIUM (BEAKER) (test sstd=924) 3.8 meq/L 3.6-5.5 HGB/HCT (H&H) - STAT [id number] 15:55:00 Test Item Value Reference Range Comments HEMOGLOBIN (BEAKER) (test hiuf=871) 13.5 g/dL 12.0-15.0 HEMATOCRIT (BEAKER) (test zpju=405) 40.0 % 36.0-45.0 URINALYSIS W/ [id number] 13:28:00 Test Item Value Reference Range Comments COLOR (BEAKER) (test jtxb=901) Yellow CLARITY (BEAKER) (test vych=639) Hazy SPECIFIC GRAVITY UA (BEAKER) (test 1.013 1.001-1.035 keri=281) PH UA (BEAKER) (test kycu=452) 5.5 5.0-8.0 PROTEIN UA (BEAKER) (test drtl=124) 10 mg/dL Negative GLUCOSE UA (BEAKER) (test rzjy=569) Negative Negative KETONES UA (BEAKER) (test uqte=526) Negative Negative BILIRUBIN UA (BEAKER) (test ydih=730) Negative Negative BLOOD UA (BEAKER) (test gzoz=898) Trace Negative NITRITE UA (BEAKER) (test wqjo=734) Negative Negative LEUKOCYTE ESTERASE UA (BEAKER) (test Large Negative dlwp=671) UROBILINOGEN UA (BEAKER) (test whts=354) 0.2 mg/dL 0.2-1.0 RBC UA (BEAKER) (test rehu=784) 3 /HPF WBC UA (BEAKER) (test qdwe=263) 128 /HPF BACTERIA (BEAKER) (test lneq=147) Occasional MUCUS (BEAKER) (test iixj=6998) Rare SQUAMOUS EPITHELIAL (BEAKER) (test < /HPF mhup=568) SOURCE(BEAKER) (test jmwg=1004) Urine, Clean Catch POCT-GLUCOSE [id number] 12:50:00 Test Item Value Reference Range Comments POC-GLUCOSE METER (BEAKER) 146 mg/dL 70-110 TESTED AT [facility] [address] [place] [address] (test pwrd=3780) [facility] [address] URINE [id number] 09:26:00 Test Item Value Reference Range Comments CULTURE (BEAKER) (test 50-59,000 col/mL Myroides lhut=6457) speciesMost closely resembles <10,000 col/mL Beta hemolytic strepURINALYSIS W/ [id number] 11:15: 00 Test Item Value Reference Range Comments COLOR (BEAKER) (test uwwg=217) Yellow CLARITY (BEAKER) (test juys=757) Hazy SPECIFIC GRAVITY UA (BEAKER) (test oysq=927) 1.013 1.001-1.035 PH UA (BEAKER) (test gref=176) 6.0 5.0-8.0 PROTEIN UA (BEAKER) (test iqdu=565) 10 mg/dL Negative GLUCOSE UA (BEAKER) (test opwi=520) Negative Negative KETONES UA (BEAKER) (test hfkt=116) Negative Negative BILIRUBIN UA (BEAKER) (test woju=351) Negative Negative BLOOD UA (BEAKER) (test mvds=318) Small Negative NITRITE UA (BEAKER) (test fzrs=026) Negative Negative LEUKOCYTE ESTERASE UA (BEAKER) (test ngfy=711) Large Negative UROBILINOGEN UA (BEAKER) (test wipp=316) 0.2 mg/dL 0.2-1.0 RBC UA (BEAKER) (test izir=977) 3 /HPF WBC UA (BEAKER) (test repe=962) > /HPF BACTERIA (BEAKER) (test ldga=175) Occasional SQUAMOUS EPITHELIAL (BEAKER) (test bxlm=234) < /HPF YEAST (BEAKER) (test dmtm=8545) Occasional SOURCE(BEAKER) (test wfql=8955) BASIC METABOLIC [id number] 11:08:00 Test Item Value Reference Range Comments SODIUM (BEAKER) (test 140 meq/L 136-145 aoio=381) POTASSIUM (BEAKER) (test 4.3 meq/L 3.5-5.1 Specimen slightly cbjt=482) hemolyzed CHLORIDE (BEAKER) (test 104 meq/L 98-107 qrbj=259) CO2 (BEAKER) (test 26 meq/L 22-29 gihb=441) BLOOD UREA NITROGEN 19 mg/dL 7-21 (BEAKER) (test ecjw=334) CREATININE (BEAKER) (test 0.85 mg/dL 0.57-1.25 Specimen slightly pexg=745) hemolyzed GLUCOSE RANDOM (BEAKER) 141 mg/dL 70-105 (test pxvn=382) CALCIUM (BEAKER) (test 9.5 mg/dL 8.4-10.2 dmpl=539) EGFR (BEAKER) (test 69 mL/min/1.73 sq m ESTIMATED GFR IS NOT ynqs=4635) ACCURATE CREATININE CLEARANCE IN PREDICTING GLOMERULAR FILTRATION RATE. ESTIMATED GFR IS NOT APPLICABLE FOR DIALYSIS PATIENTS. PROTHROMBIN [id number] 10:58:00 Test Item Value Reference Range Comments PROTIME (BEAKER) (test bloo=256) 12.8 seconds 11.7-14.7 INR (BEAKER) (test twwo=040) 1.0 <=5.9 RECOMMENDED COUMADIN/WARFARIN INR THERAPY RANGESSTANDARD DOSE: 2.0 - 3.0 Includes: PROPHYLAXIS forvenous thrombosis, systemic embolization; TREATMENT for venous thrombosis and/or pulmonary embolus.HIGH RISK: Target INR is 2.5-3.5 for patients with mechanical heart valves.[id number] 10:58:00 Test Item Value Reference Range Comments PARTIAL THROMBOPLASTIN TIME (BEAKER) (test 35.7 seconds 22.5-36.0 hwiv=152) CBC W/PLT COUNT & AUTO [id number] 10:48:00 Test Item Value Reference Range Comments WHITE BLOOD CELL COUNT (BEAKER) (test bezk=018) 10.6 K/ L 4.0-10.0 RED BLOOD CELL COUNT (BEAKER) (test jjbk=021) 5.12 M/ L 4.00-5.00 HEMOGLOBIN (BEAKER) (test drfb=089) 14.8 GM/DL 12.0-15.0 HEMATOCRIT (BEAKER) (test azxv=452) 45.9 % 36.0-45.0 MEAN CORPUSCULAR VOLUME (BEAKER) (test hhrg=481) 89.5 fL 82.0-99.0 MEAN CORPUSCULAR HEMOGLOBIN (BEAKER) (test 29.0 pg 27.0-33.0 mppj=317) MEAN CORPUSCULAR HEMOGLOBIN CONC (BEAKER) (test 32.4 GM/DL 32.0-36.0 bgqg=586) RED CELL DISTRIBUTION WIDTH (BEAKER) (test 14.8 % 10.3-14.2 xklv=046) PLATELET COUNT (BEAKER) (test hrke=987) 255 K/CU MM 150-430 MEAN PLATELET VOLUME (BEAKER) (test ggmv=085) 6.7 fL 6.5-10.5 NUCLEATED RED BLOOD CELLS (BEAKER) (test 0 /100 WBC 0-0 xhzw=912) NEUTROPHILS RELATIVE PERCENT (BEAKER) (test 59 % voyl=710) LYMPHOCYTES RELATIVE PERCENT (BEAKER) (test 31 % ztqb=113) MONOCYTES RELATIVE PERCENT (BEAKER) (test 6 % fafj=041) EOSINOPHILS RELATIVE PERCENT (BEAKER) (test 2 % ghhj=462) BASOPHILS RELATIVE PERCENT (BEAKER) (test 1 % aaxx=843) NEUTROPHILS ABSOLUTE COUNT (BEAKER) (test 6.30 K/ L 1.80-8.00 xkxe=193) LYMPHOCYTES ABSOLUTE COUNT (BEAKER) (test 3.34 K/ L 1.48-4.50 dsnd=169) MONOCYTES ABSOLUTE COUNT (BEAKER) (test 0.68 K/ L 0.00-1.30 lifw=442) EOSINOPHILS ABSOLUTE COUNT (BEAKER) (test 0.20 K/ L 0.00-0.50 przb=504) BASOPHILS ABSOLUTE COUNT (BEAKER) (test 0.12 K/ L 0.00-0.20 merk=367) 0.00
--- OUTSIDE RECORDS SUMMARY | 2019-02-12 10:56 | XMS REPORT | Encounter Summary ---
:1960 Author Care Team Providers Name Role Phone Dylan De Luna MD Primary Care Provider [phone] Reason for Visit hospital follow up Instructions 1. Type II diabetes mellitus uncontrolled type 2 diabetes: care instructions endocrinology referral 2. Essential hypertension Discussion Note need to get records from recent hosp in [place] Plan of Care Reminders Provider Appointments Follow up Dylan De Luna MD 10/24/2018 11:30AM Lab None recorded. Referral Endocrinology Kely Bailon MD Referral 09/13/2018 Procedures None recorded. Surgeries None recorded. Imaging None recorded. Medications Name Start Date Anoro Ellipta 62.5 mcg-25 mcg/actuation powder for inhalation Bystolic 5 mg tablet TAKE ONE (1) [...] (1) TABLET(S) BY MOUTH ONCE A DAY. fluticasone 50 mcg/actuation nasal spray,suspension glipizide 5 mg tablet Take 1 tablet twice a day by oral route. Lotemax 0.5 % eye gel drops metformin 500 mg tablet TAKE ONE (1) TABLET(S) BY MOUTH TWICE A DAY. montelukast 10 mg tablet nicotine 7 mg/24 hr daily transdermal patch Apply 1 patch every day by transdermal route. Pazeo 0.7 % eye drops Medications Administered None recorded. Vitals Height Weight BMI Blood Pressure 67 in 285 lbs 44.6 kg/m2 186/100 mm[Hg] Lab Results Date Name Specimen Result Interpretation Description Value Range Status Address 08/06/2018 Urinalysis Normal Color, Urine light Final [place] Complete, yellow Regional Reflex Culture [facility] (Lab): [address] [place] [address] Normal Appearance, clear clear Final [place] Urine [facility] (Lab): [address] [place] [address] High Urine =2+ (150 negativ Final [place] Glucose e [facility] (Lab): [address] [place] [address] Normal Bilirubin, negative negativ Final [place] Urine e [facility] (Lab): [address] [place] [address] Normal Ketone, trace negativ Final [place] Urine e [facility] (Lab): [address] [place] [address] Normal Specific 1.010 1.003-1 Final [place] Howard,urine .030 [facility] (Lab): [address] [place] [address] Normal Blood Urine negative negativ Final [place] e [facility] (Lab): [address] [place] [address] Normal pH,urine 5.000 5-9 Final [place] [facility] (Lab): [address] [place] [address] Normal Protein negative negativ Final [place] Urine (UA) e [facility] (Lab): [address] [place] [address] Normal Urobilinogen normal 0.2-1.0 Final [place] , Urine mg/dL mg/dL [facility] (Lab): [address] [place] [address] Normal Nitrate, negative negativ Final [place] Urine e [facility] (Lab): [address] [place] [address] Normal Urine negative negativ Final [place] Leukocyte e [facility] Esterase [facility] (Lab): [address] [place] [address] Normal RBC, Urine <1 /[hpf] 0-5 Final [place] /[hpf] [facility] (Lab): [address] [place] [address] Normal WBC, Urine <1 /[hpf] 0-5 Final [place] /[hpf] [facility] (Lab): [address] [place] [address] Normal Epithelial =1-5 0-5 Final [place] Cell /[hpf] /[hpf] [facility] (Lab): [address] [place] [address] Normal Bacteria, none none Final [place] Urine detected detect Regional /[hpf] /[hpf] [facility] (Lab): [address] [place] [address] Normal Casts,urine none none Final [place] detected detect Regional /lpf /lpf [facility] (Lab): [address] [place] [address] Normal Urine no Final [place] Culture [facility] (Lab): [address] [place] [address] 08/01/2018 CBC W/ Auto Normal White Blood 9.9 K/uL 4.0-11. Final [place] Diff Count 5 K/uL [facility] (Lab): [address] [place] [address] Normal Red Blood 5.20 M/uL 3.80-5. Final [place] Count 20 M/uL [facility] (Lab): [address] [place] [address] Normal Hemoglobin 15.4 g/dL 10.5-15 Final [place] .7 g/dL [facility] (Lab): [address] [place] [address] Normal Hematocrit 46.4 % 34.0-50 Final [place] .0 % [facility] (Lab): [address] [place] [address] Normal Mean 89.4 fL 78-98 Final [place] Corpuscular fL [facility] Volume [facility] (Lab): [address] [place] [address] Normal Mean 29.6 pg 26.2-33 Final [place] Corpuscular .4 pg [facility] Hemoglobin [facility] (Lab): [address] [place] [address] Normal Mean 33.1 g/dL 31.5-36 Final [place] Corpuscular .2 g/dL Regional [facility] (Lab): [address] [place] [address] Normal Red Cell 12.7 % 11.5-15 Final [place] Distribution .5 % [facility] (Lab): [address] [place] [address] Normal Platelet 242 K/uL 137-338 Final [place] Count K/uL [facility] (Lab): [address] [place] [address] Low Mean 6.5 fL 8.4-11. Final [place] Platelet 8 fL [facility] (Lab): [address] [place] [address] Normal Neutrophils 59.1 % 44.4-80 Corrected [place] % .1 % [facility] (Lab): [address] [place] [address] Normal Lymphocyte% 31.3 % 10.0-50 Final [place] .0 % [facility] (Lab): [address] [place] [address] Normal Wilcox % 5.7 % 3.6-12. Final [place] 04 % [facility] (Lab): [address] [place] [address] Normal Eos % 2.8 % 0.0-5.4 Final [place] 1 % [facility] (Lab): [address] [place] [address] High Basophil % 1.2 % 0.0-0.7 Final [place] 9 % [facility] (Lab): [address] [place] [address] 08/01/2018 Differential Normal Neutrophils Incomplete [place] Panel, Blood [facility] (Lab): [address] [place] [address] Normal Band Incomplete [place] [facility] (Lab): [address] [place] [address] Normal Lymphocyte Incomplete [place] [facility] (Lab): [address] [place] [address] Normal Atypical Incomplete [place] Lymph [facility] (Lab): [address] [place] [address] Normal Monocyte Incomplete [place] [facility] (Lab): [address] [place] [address] Normal Eosinophil Incomplete [facility] (Lab): [address] [place] [address] Normal Basophil Incomplete [facility] (Lab): [address] [place] [address] Normal Platelet Incomplete [place] Estimate [facility] (Lab): [address] [place] [address] Normal Platelet Incomplete [place] Morphology [facility] (Lab): [address] [place] [address] Normal Hypochromasi [facility] (Lab): [address] [place] [address] Normal Anisocytosis Incomplete [facility] (Lab): [address] [place] [address] Normal Microcytosis [facility] (Lab): [address] [place] [address] Normal Rouleau Incomplete [facility] (Lab): [address] [place] [address] 08/01/2018 BMP, Serum or High Glucose 402 mg/dL 74-106 Corrected [place] Plasma mg/dL [facility] (Lab): [address] [place] [address] Normal Blood Urea 17 mg/dL 6-20 Final [place] Nitrogen mg/dL [facility] (Lab): [address] [place] [address] Normal Osmolality 289 280-300 Final [place] Calculated, [facility] Serum [facility] (Lab): [address] [place] [address] High Creatinine 1.1 mg/dL 0.50-0. Final [place] 90 Regional mg/dL [facility] (Lab): [address] [place] [address] Low Glomerular 51.20 Final [place] Filtration [facility] (Lab): [address] [place] [address] Normal BUN/creatini 15.5 12-20 Final [place] ne Ratio [facility] (Lab): [address] [place] [address] Normal Sodium Level 135 135-145 Final [place] mmol/L mmol/L [facility] (Lab): [address] [place] [address] Normal Potassium 4.4 3.5-5.2 Final [place] Level mmol/L mmol/L [facility] (Lab): [address] [place] [address] Low Chloride 97 mmol/L 98-108 Final [place] Level mmol/L [facility] (Lab): [address] [place] [address] Normal Co2 26 mmol/L 21-32 Final [place] mmol/L [facility] (Lab): [address] [place] [address] Normal Anion Gap 16.4 12-20 Final [place] mEq/L mEq/L [facility] (Lab): [address] [place] [address] Normal Calcium 9.7 mg/dL 8.6-10. Final [place] Level 0 mg/dL [facility] (Lab): [address] [place] [address] 08/01/2018 PT/INR Low Prothrombin 9.9 10.3-12 Final [place] Time seconds .3 [facility] seconds [facility] (Lab): [address] [place] [address] Normal Inr 0.90 Final [place] [facility] (Lab): [address] [place] [address] 08/01/2018 Partial Normal Partial 27.0 22.5-37 Final [place] Thromboplastin Thromboplasti seconds .0 Regional Time n Time seconds [facility] (Lab): [address] [place] [address] Allergies Code Code System Name Reaction Severity Status Onset 20331218 RxNorm Benadryl Active 28230314 RxNorm Demerol Active 20270816 RxNorm Diflucan Hives Active 7052 RxNorm Morphine Active Problems Name Status Onset [...] not available Hysterectomy/revise Vagina Information not available Vaccine List Vaccine Type Tdap 05/28/20180.5 mL Social History Smoking Status Heavy Tobacco Smoker (1 PPD) Past Encounters 08/27/2018 Type II Diabetes Mellitus Uncontrolled; Essential Hypertension Dylan De Luna MD: [address] [facility], [address], [place] [address], Ph. [phone] 08/06/2018 Type II Diabetes Mellitus Uncontrolled; Essential Hypertension; Chronic Depression; Cigarette Smoker; Dysuria Dylan De Luna MD: [address] [facility], [address], [place] [address], Ph. 07/30/2018 Hoarse; Choking; Polyp of Vocal Cord; Smoker; Dysphagia; Sinusitis; Deviated Nasal Septum; Hypertrophy of Nasal Turbinates; Hearing Loss; Otitis Externa; Tinnitus Geoff Villarreal MD: [address] [place] [address], [address], [place] [address], Ph. History of Present Illness Note: 15 min consultation for recent hosp for "dehydration" has been on a Keto diet<div>diabeteshas been better but not controlled</div>< div>ros</div><div>gen feeling ok today</div><div>cv stable</div><div>resp stable</div>Review of Systems: ROS as noted in the HPI Review of Systems None recorded. Physical Exam Notes: consultation
--- OUTSIDE RECORDS SUMMARY | 2019-02-12 10:57 | XMS REPORT | Encounter Summary ---
:1960 Author Care Team Providers Name Role Phone Dylan De Luna MD Primary Care Provider [phone] Reason for Visit cough / wheezing Instructions 1. Persistent cough unlisted imaging order - chest 2 views CBC w/ auto diff 2. Bronchitis bronchitis: care instructions doxycycline hyclate 100 mg tablet Robitussin Cough-Chest Congestion DM 5 mg-100 mg/5 mL oral liquid Discussion Note: None recorded. Plan of Care Reminders Provider Appointments Follow up Dylan De Luna MD 10/24/2018 11:30AM Lab CBC W/ Auto [facility] Diff 10/22/2018 [facility] (Lab) Referral None recorded. Procedures None recorded. Surgeries None recorded. Imaging Unlisted [facility] Imaging Order 10/22/2018 [facility] (Scheduling) Medications Name Start Date Anoro Ellipta 62.5 mcg-25 mcg/actuation powder for inhalation Bystolic 5 mg tablet TAKE ONE (1) TABLET(S) BY MOUTH ONCE A DAY. carisoprodol 350 mg tablet Take 1 tablet 3 times a day by oral route. Ciprodex 0.3 %-0.1 % ear drops,suspension INSTILL 5 DROPS INTO AFFECTED EAR(S) BY OTIC ROUTE 2 TIMES PER DAY FOR 7 DAYS Contour Next Test Strips diazepam 5 mg tablet TAKE ONE (1) TABLET(S) BY MOUTH TWICE A DAY. doxycycline hyclate 100 mg tablet Take 1 tablet twice a day by oral route. take for infection duloxetine 60 mg capsule,delayed release epinastine 0.05 % eye drops escitalopram 20 mg tablet TAKE ONE (1) TABLET(S) BY MOUTH ONCE A DAY. fluticasone propionate 50 mcg/actuation nasal spray,suspension Lotemax 0.5 % eye gel drops metformin ER 750 mg tablet,extended release 24 hr Microlet Lancet montelukast 10 mg tablet nicotine 7 mg/24 hr daily transdermal patch Apply 1 patch every day by transdermal route. Pazeo 0.7 % eye drops Robitussin Cough-Chest Congestion DM 5 mg-100 mg/5 mL oral liquid Take 5 mL 4 times a day by oral route. use as needed for cough and congestion Trulicity 0.75 mg/0.5 mL subcutaneous pen injector Inject 0.5 mL every week by subcutaneous route. Medications Administered None recorded. Vitals Height Weight BMI Blood Pressure 67 in 278 lbs 43.5 kg/m2 152/84 mm[Hg] Lab Results None recorded. Allergies Code Code System Name Reaction Severity Status Onset 20331218 RxNorm Benadryl Active 28230314 RxNorm Demerol Active 20270816 RxNorm Diflucan Hives Active 7051 RxNorm Morphine Active Problems Name Status Onset [...] Type II Diabetes Mellitus Uncontrolled Active 08/06/2018 Bronchitis Active 10/22/2018 Procedures Date Name Performed by 11/30/2017 Exploration of Kidney Information not available Remove Tonsils and Adenoids Information not available Ankle Arthroscopy/surgery Information not available Exploration of Kidney Information not available Hysterectomy/revise Vagina Information not available 10/22/2018 Unlisted Imaging Order [facility] ( Scheduling) [address] [place] [address] ([address]) Vaccine List Vaccine Type Tdap 05/28/20180.5 mL Social History Smoking Status Heavy Tobacco Smoker (1 PPD) Past Encounters 10/22/2018 Persistent Cough; Bronchitis Dylan De Luna MD: [address] [place] [address], [address], [place] [address], Ph. History of Present Illness Note: CC productive cough and low grade fever for several days <div> hpi coughing up white phlem</div><div>cc sleep apnea</div>< div>hpi using machine better now and sleeping bettero</div><div> ros</div><div>gen above</div><div>cp no cp</div>& lt;div>resp above</div>Review of Systems: ROS as noted in the HPI Review of Systems None recorded. Physical Exam Dr. De Luna Brief Adult Exam - M/F Reported By: Patient Constitutional: General Appearance: well-developed, obese. Level of Distress: mild distress, acutely ill. Ambulation: ambulating normally ENMT: Ears: no lesions on external ear, EACs clear, TMs clear, TM mobility normal. Nose: nares patent, nasal passages clear. Oropharynx: moist mucous membranes, no erythema, no exudates, tonsils not enlarged Lungs: Auscultation: good air movement, no wheezing, no rales/crackles, rhonchi Cardiovascular: Heart Auscultation: RRR, no rubs, no gallops
--- OUTSIDE RECORDS SUMMARY | 2019-02-12 10:57 | XMS REPORT | Encounter Summary ---
:1960 Author Care Team Providers Name Role Phone Dylan De Luna MD Primary Care Provider [phone] Reason for Visit Follow Up Visit Instructions 1. Hoarse 2. Choking 3. Polyp of vocal cord 4. Smoker 5. Dysphagia 6. Sinusitis 7. Deviated nasal septum 8. Hypertrophy of nasal turbinates 9. Hearing loss 10. Otitis externa 11. Tinnitus 12. Chronic obstructive lung disease Discussion Note: None recorded.Patient educational handouts: No information available. Plan of Care Patient Instructions Patient discharged with the following per Dr. Villarreal Follow up in 2-3 weeks for proper hearing test Then follow up in one month to possible scheudle surgery If any other problems patient is to call my office Patient verbalized understanding the instructions given along with my office staff Reminders Provider Appointments Follow up 01/24/2019 Geoff Villarreal MD 10:15AM Lab None recorded. Referral None recorded. Procedures None recorded. Surgeries None recorded. Imaging None recorded. Medications Name Start Date Anoro Ellipta 62.5 mcg-25 mcg/actuation powder for inhalation bupropion HCl SR 150 mg tablet,12 hr sustained-release Bystolic 5 mg tablet TAKE ONE (1) TABLET(S) BY MOUTH ONCE A DAY. carisoprodol 350 mg tablet Take 1 tablet 3 times a day by oral route. Contour Next Test Strips diazepam 5 mg tablet TAKE ONE (1) TABLET(S) BY MOUTH TWICE A DAY. doxycycline hyclate 100 mg tablet Take 1 tablet twice a day by oral route. duloxetine 60 mg capsule,delayed release epinastine 0.05 % eye drops escitalopram 20 mg tablet TAKE ONE (1) TABLET(S) BY MOUTH ONCE A DAY. ezetimibe 10 mg tablet fluticasone propionate 50 mcg/actuation nasal spray,suspension metformin ER 750 mg tablet,extended release 24 hr Microlet Lancet montelukast 10 mg tablet nicotine 14 mg/24 hr daily transdermal patch omeprazole 40 mg capsule,delayed release sulfamethoxazole 800 mg-trimethoprim 160 mg tablet Take 1 tablet every 12 hours by oral route. Trulicity 0.75 mg/0.5 mL subcutaneous pen injector Inject 0.5 mL every week by subcutaneous route. Medications Administered None recorded. Vitals Height Weight BMI Blood Pressure 5 ft 7 in 273.2 lbs 42.8 kg/m2 129/81 mm[Hg] Lab Results Date Name Specimen Result Interpretation Description Value Range Status Address 12/17/2018 BMP, Serum or High Glucose 109 74-106 Final [place] Plasma mg/dL mg/dL [facility] (Lab): [address] [place] [address] Normal Blood Urea 19 mg/dL 6-20 Final [place] Nitrogen mg/dL [facility] (Lab): [address] [place] [address] Normal Osmolality 280 280-300 Final [place] Calculated, [facility] (Lab): [address] [place] [address] High Creatinine 1.2 0.50-0.9 Final [place] mg/dL 0 mg/dL [facility] (Lab): [address] [place] [address] Low Glomerular 46.14 Final [place] Filtration [facility] (Lab): [address] [place] [address] Normal BUN/creatin 15.8 12-20 Final [place] ine Ratio [facility] (Lab): [address] [place] [address] Normal Sodium 139 135-145 Final [place] Level mmol/L mmol/L [facility] (Lab): [address] [place] [address] Normal Potassium 4.2 3.5-5.2 Final [place] Level mmol/L mmol/L [facility] (Lab): [address] [place] [address] Normal Chloride 102 98-108 Final [place] Level mmol/L mmol/L [facility] (Lab): [address] [place] [address] Normal Co2 25 21-32 Final [place] mmol/L mmol/L [facility] (Lab): [address] [place] [address] Normal Anion Gap 16.2 12-20 Final [place] mEq/L mEq/L [facility] (Lab): [address] [place] [address] Normal Calcium 9.8 8.6-10.0 Final [place] Level mg/dL mg/dL [facility] (Lab): [address] [place] [address] 12/06/2018 Tympanogram Right Type A In-House Normal Results: For Internal Use Only Left Type A In-House Normal Results: For Internal Use Only Allergies Code Code System Name Reaction Severity Status Onset 20331218 RxNorm Benadryl Active 426051 RxNorm Demerol Active 20270816 RxNorm Diflucan Hives [...] Mellitus Uncontrolled Active 08/06/2018 Bronchitis Active 10/22/2018 Superficial Foreign Body in Wrist Active 12/17/2018 Procedures Date Name Performed by 11/30/2017 Exploration of Kidney Information not available Remove Tonsils and Adenoids Information not available Ankle Arthroscopy/surgery Information not available Exploration of Kidney Information not available Hysterectomy/revise Vagina Information not available 12/06/2018 Tympanogram In-House Results For Internal Use Only [address] 12/17/2018 XR, [facility] [address] [place] [address] ([address]) Vaccine List Vaccine Type Tdap 05/28/20180.5 mL Social History Smoking Status Heavy Tobacco Smoker (1 PPD) Past Encounters 12/27/2018 Hoarse; Choking; Polyp of Vocal Cord; Smoker; Dysphagia; Sinusitis; Deviated Nasal Septum; Hypertrophy of Nasal Turbinates; Hearing Loss; Otitis Externa; Tinnitus; Chronic Obstructive Lung Disease Geoff Villarreal MD: [address] [place] [address], [address], [place] [address], Ph. 12/17/2018 Chronic Kidney Disease; Superficial Foreign Body in Wrist Dylan N De Luna, MD: [address] [facility], [address], [place] [address], Ph. [phone] 12/06/2018 Hoarse; Choking; Polyp of Vocal Cord; Smoker; Dysphagia; Sinusitis; Deviated Nasal Septum; Hypertrophy of Nasal Turbinates; Hearing Loss; Otitis Externa; Tinnitus; Chronic Obstructive Lung Disease Geoff Villarreal MD: [address] [facility], [address], [place] [address], Ph. History of Present Illness None recorded. Review of Systems ENT ROS Reported By: Patient ENMT: ENMT: sinus pressure, swelling, sore throat, hoarseness, runny nose; choking. cough Physical Exam None recorded.
--- OUTSIDE RECORDS SUMMARY | 2019-02-12 10:57 | XMS REPORT | Encounter Summary ---
:1960 Author Care Team Providers Name Role Phone Dylan De Luna MD Primary Care Provider [phone] Reason for Visit Follow Up Visit Instructions 1. Hoarse 2. Choking 3. Polyp of vocal cord 4. Smoker 5. Dysphagia 6. Sinusitis 7. Deviated nasal septum 8. Hypertrophy of nasal turbinates 9. Hearing loss 10. Otitis externa 11. Tinnitus tympanogram 12. Chronic obstructive lung disease Discussion Note: None recorded.Patient educational handouts: No information available. Plan of Care Patient Instructions Patient discharged with the following per Dr. Villarreal Follow up in 2-3 weeks for proper hearing test Then follow up in office in 2 weeks for fiberoptic laryngoscopy If any other problems patient is to call my office Patient verbalized understanding the instructions given along with my office staff Reminders Provider Appointments Follow up Geoff Villarreal, 12/27/2018 9:15AM Lab None recorded. Referral None recorded. Procedures None recorded. Surgeries None recorded. Imaging Tympanogram In-House Results 12/06/2018 Medications Name Start Date Anoro Ellipta 62.5 [...] DAY. fluticasone propionate 50 mcg/actuation nasal spray,suspension metformin ER 750 mg tablet,extended release 24 hr Microlet Lancet montelukast 10 mg tablet omeprazole 40 mg capsule,delayed release Trulicity 0.75 mg/0.5 mL subcutaneous pen injector Inject 0.5 mL every week by subcutaneous route. Medications Administered None recorded. Vitals Height Weight BMI Blood Pressure 5 ft 7 in 274.7 lbs 43 kg/m2 152/88 mm[Hg] Lab Results None recorded. Allergies Code [...] Tympanogram In-House Results For Internal Use Only 26511 Vaccine List Vaccine Type Tdap 05/28/20180.5 mL Social History Smoking Status Heavy Tobacco Smoker (1 PPD) Past Encounters 12/06/2018 Hoarse; Choking; Polyp of Vocal Cord; Smoker; Dysphagia; Sinusitis; Deviated Nasal Septum; Hypertrophy of Nasal Turbinates; Hearing Loss; Otitis Externa; Tinnitus; Chronic Obstructive Lung Disease Geoff Villarreal MD: [address] [place] [address], [address], [place] [address], Ph. History of Present Illness None recorded. Review of Systems ENT ROS Reported By: Patient ENMT: ENMT: sinus pressure, swelling, sore throat, hoarseness, runny nose; choking. cough Physical Exam ENT Exam [facility]-No Stethoscope Reported By: Patient Constitutional: General Appearance: obese. Communication: hoarse Head/Face: Inspection: scarring. Sinuses: right maxillary tenderness, left maxillary tenderness Eyes: Pupils: EOM intact, PERRLA, conjunctiva non-injected Nose: Nasal Skin: no lesions, no lacerations, no scars. Nasal Dorsum: symmetric with no visible or palpable deformities. Nasal tip: normal symmetric nasal tip, normal nasal valves. Nasal Mucosa: normal, pink and moist. Septum: not markedly deformed. Turbinates: normal size and confrontation. Polyps: none Oral Cavity/Mouth: Lips, teeth, gums: normal lips, normal gums, normal dentition. Oral Mucosa: normal, moist, no lesions. Palate: normal hard palate, normal soft palate. Tongue: no lesions, no edema, enlarged. Tonsils: erythema. Posterior pharynx: lymphoid hyperplasia. Hypopharynx: erythema. Larynx: normal epiglottis, normal false vocal cords, normal glottic mobility, edema of the true vocal cords, vocal polyp. Nasopharynx: normal, normal adenoids, normal eustachian tubes, choanae patent Neck: Neck: symmetrical, trachea midline. Thyroid: symmetric, no enlargement, no tenderness, no nodules
--- OUTSIDE RECORDS SUMMARY | 2019-02-12 10:57 | XMS REPORT | Encounter Summary ---
:1960 Author Care Team Providers Name Role Phone Dylan De Luna MD Primary Care Provider [phone] Reason for Visit Follow Up Visit Instructions 1. Chronic kidney disease BMP, serum or plasma 2. Superficial foreign body in wrist XR, wrist - pt stuck chicken wire in left wrist on radial side not sure if FB still there Bactrim DS 800 mg-160 mg tablet Discussion Note: None recorded.Patient educational handouts: No information available. Plan of Care Reminders Provider Appointments Follow up Geoff Villarreal MD 12/27/2018 9:15AM Lab BMP, Serum [facility] or Plasma 12/17/2018 [facility] (Lab) Referral None recorded. Procedures None recorded. Surgeries None recorded. Imaging XR, Wrist [facility] 12/17/2018 [facility] (Scheduling) Medications Name Start Date Anoro Ellipta 62.5 mcg-25 mcg/actuation powder for inhalation Bactrim DS 800 mg-160 mg tablet Take 1 tablet every 12 hours by oral route. take for infection bupropion HCl SR 150 mg tablet,12 hr [...] transdermal patch omeprazole 40 mg capsule,delayed release Trulicity 0.75 mg/0.5 mL subcutaneous pen injector Inject 0.5 mL every week by subcutaneous route. Medications Administered None recorded. Vitals Height Weight BMI Blood Pressure 67 in 274 lbs 42.9 kg/m2 161/93 mm[Hg] Lab Results Date Name Specimen Result Interpretation Description Value Range Status Address 12/06/2018 Tympanogram Right Type A In-House Normal [...] Tympanogram In-House Results For Internal Use Only [address] 12/17/2018 XR, Wrist [facility] (Scheduling) [address] [place] [address] (Work [address]) Vaccine List Vaccine Type Tdap 05/28/20180.5 mL Social History Smoking Status Heavy Tobacco Smoker (1 PPD) Past Encounters 12/17/2018 Chronic Kidney Disease; Superficial Foreign Body in Wrist Dylan De Luna MD: [address], [address], [place] [address], Ph. 12/06/2018 Hoarse; Choking; Polyp of Vocal Cord; Smoker; Dysphagia; Sinusitis; Deviated Nasal Septum; Hypertrophy of Nasal Turbinates; Hearing Loss; Otitis Externa; Tinnitus; Chronic Obstructive Lung Disease Geoff Villarreal MD: [address], [address], [place] [address], Ph. History of Present Illness Note: foreign body left wrist<div>stuck a piece of chicken wire in radial side of left wrist last night now has pain in wrist to rom and swelling& lt;/div><div>
</div>Review of Systems: ROS as noted in the HPI Review of Systems None recorded. Physical Exam Notes: vs reviewed<div>gen moderate distress</div><div>pain and swelling of left wrist area</div>
--- OUTSIDE RECORDS SUMMARY | 2019-02-12 10:58 | XMS REPORT | Encounter Summary ---
:1960 Author Care Team Providers Name Role Phone Dylan De Luna MD Primary Care Provider [phone] Geoff Villarreal Senior U[employer] Developer [phone] Nesha Vogt MD Supervisor Pipe Manufacture [phone] Reason for Visit Follow Up Visit Instructions [...] Dr. Villarreal Arranging to do Microlaryngoscopy with stripping of bilateral vocal cords and esophagoscopy Pre op in 2 weeks Complications and risk were expalined to the patient If any other problems patient is to call my office Patient verbalized understanding the instructions given along with my office staff Reminders Provider Appointments None recorded. Lab None recorded. Referral None recorded. Procedures None recorded. Surgeries None recorded. Imaging None recorded. Medications Name Start Date Anoro Ellipta 62.5 mcg-25 mcg/actuation powder for inhalation bupropion HCl SR 200 mg tablet,12 hr sustained-release Bystolic 5 mg tablet TAKE ONE (1) TABLET(S) BY MOUTH ONCE A DAY. carisoprodol 350 mg tablet Take 1 tablet 3 times a day by oral route. Contour Next Test Strips doxycycline hyclate 100 mg tablet Take 1 tablet twice a day by oral route. epinastine 0.05 % eye drops escitalopram 20 [...] BMI Blood Pressure 5 ft 7 in 269.8 lbs 42.3 kg/m2 126/89 mm[Hg] Lab Results None recorded. Allergies Code [...] Social History Smoking Status Heavy Tobacco Smoker (1/2 PPD) Past Encounters 01/24/2019 Hoarse; Choking; Polyp of Vocal Cord; Smoker; Dysphagia; Sinusitis; Deviated Nasal Septum; Hypertrophy of Nasal Turbinates; Hearing Loss; Otitis Externa; Tinnitus; Chronic Obstructive Lung Disease Geoff Villarreal MD: [address] [place] [address], [address], [place] [address], Ph. 12/27/2018 Hoarse; Choking; Polyp of Vocal Cord; Smoker; Dysphagia; Sinusitis; Deviated Nasal Septum; Hypertrophy of Nasal Turbinates; Hearing Loss; Otitis Externa; Tinnitus; Chronic Obstructive Lung Disease Geoff Villarreal MD: [address] [place] [address], [address], [place] [address], Ph. History of Present Illness None recorded. [...]
[2019-02-12 11:38] LABS: Urine Blood NEGATIVE (NEG); Urine Glucose NEGATIVE (NEG); Urine Protein NEGATIVE (NEG); Urine Specific Gravity 1.015 (1.005-1.030); Urine pH 5.5 (5.0-7.0)
[2019-02-12 11:55] LABS: Absolute Lymphocytes (CBC) 3.5 K/uL (0.7-4.9); Basophils % 0.5 % (0-1.3); Eosinophils % 0.7 % (0-4.4); Hematocrit 43.4 % (36.0-45.0); Lymphocytes % 26.1 % (15.3-44.8); MPV 7.2 fL (7.6-11.3); Monocytes % 6.9 % (3.3-12.3); RBC Red Blood Cell Count 4.99 M/uL (3.86-4.86)
[2019-02-12] MEDS ORDERED: ONDANSETRON 4 MG/2 ML VIAL ONE ×2 (12:07→15:01)
[2019-02-12] MEDS ORDERED: HYDROCODONE/APAP 5/325 MG TAB ONE (12:07)
[2019-02-12] MEDS ORDERED: FAMOTIDINE 20 MG/2 ML VIAL IV ONE (12:07)
[2019-02-12] MEDS ORDERED: NA CHLORIDE 0.9% 1,000 ML ONE (12:08)
[2019-02-12 12:13] LABS: ALT/SGPT 33 U/L (12-78); AST/SGOT 16 U/L (15-37); Albumin 3.8 g/dL (3.4-5.0); Alkaline Phosphatase 72 U/L (45-117); BUN Blood Urea Nitrogen 19 mg/dL (7-18); Bicarbonate 27 mmol/L (21-32); Bilirubin Direct < 0.1 mg/dL (0-0.2); Bilirubin Total 0.2 mg/dL (0.2-1.0); Glucose Level 130 mg/dL (74-106); Lipase 110 U/L (73-393); Protein, Total 7.3 g/dL (6.4-8.2); Sodium Level 139 mmol/L (136-145)
[2019-02-12 12:33] LABS: Urine Bacteria <20 /HPF (<20); Urine Culture Reflex Order NOT NEEDED; Urine RBC <5 /HPF (NONE SEEN)
--- NOTE | 2019-02-12 12:55 | RAD REPORT ---
EXAM DESCRIPTION: RAD - Chest Single View - 02/12/2019 12:50 pm CLINICAL HISTORY: Upper abdominal pain, recent throat surgery, body aches COMPARISON: February 2017 TECHNIQUE: AP portable chest image was obtained 1247 hours . FINDINGS: Lungs are clear. Heart and vasculature are normal. No measurable pleural effusion and no p neumothorax. No acute bony abnormality seen. No acute aortic findings suspected. IMPRESSION: No acute cardiopulmonary process. No significant interval change.
[2019-02-12 13:19] LABS: Protime INR 0.93
[2019-02-12 13:33] LABS: NT PRO-BNP 344 pg/mL (<125); Troponin (Emerg Dept Use Only) < 0.02 ng/mL (0.0-0.045)
[2019-02-12] MEDS ORDERED: FENTANYL CITR 100 MCG/2 ML ONE (15:01)
--- NOTE | 2019-02-12 15:17 | EDPHYS ---
Physician Documentation [facility] Name: Ankita Todd Age: 58 yrs Sex: Female : 1960 Arrival Date: 02/12/2019 Time: 10:47 Bed 7 Private MD: ED Physician Carlito Springer HPI: 02/12 14:17 This 58 yrs old Female presents to ER via Ambulatory with complaints of wa Urinary Problem, Pain All Over. 14:17 c/o generalized joint pain and body aches. states has only one kidney and worried she wa may have a UTI. states urinating frequently but not a lot at a time. Onset: The symptoms/episode began/occurred 4 day(s) ago. 17:37 Severity of symptoms: At their worst the symptoms were moderate in the emergency wa department the symptoms are unchanged. The patient has not experienced similar symptoms in the past. The patient has not recently seen a physician. as noted above. Historical: - Allergies: 11:04 Demerol; sg 11:04 Diflucan; sg 11:04 Morphine (Doesn't Work); sg 11:04 Nitrofurantoin Macrocrystal; sg 11:04 tramadol; sg - PMHx: 11:04 Anxiety; Colitis; Diabetes - NIDDM; High Cholesterol; Hypertension; kidney stent; Sleep sg Apnea; - PSHx: 11:04 Kidney Stent placement; Kidney Stent Removal; Hysterectomy; left nephrectomy; sg - Immunization history:: Adult Immunizations up to date. - Social history:: Smoking status: Patient/guardian denies using tobacco. - Ebola Screening: : Patient negative for fever greater than or equal to 101.5 degrees Fahrenheit, and additional compatible Ebola Virus Disease symptoms Patient denies exposure to infectious person Patient denies travel to an Ebola-affected area in the 21 days before illness onset No symptoms or risks identified at this time. - Family history:: not pertinent. - Hospitalizations: : No recent hospitalization is reported. ROS: 17:42 Constitutional: Negative for fever, chills, and weight loss, Eyes: Negative for injury, wa pain, redness, and discharge, ENT: Negative for injury, pain, and discharge, Neck: Negative for injury, pain, and swelling, Cardiovascular: Negative for chest pain, palpitations, and edema, Respiratory: Negative for shortness of breath, cough, wheezing, and pleuritic chest pain, Abdomen/GI: Negative for abdominal pain, nausea, vomiting, diarrhea, and constipation, Back: Negative for injury and pain, Skin: Negative for injury, rash, and discoloration, Neuro: Negative for headache, weakness, numbness, tingling, and seizure, Psych: Negative for depression, anxiety, suicide ideation, homicidal ideation, and hallucinations. 17:42 MS/extremity: Positive for pain, of the all over. 17:42 All other systems are negative. Exam: 17:44 Constitutional: This is a well developed, well nourished patient who is awake, alert, wa and in no acute distress. Head/Face: Normocephalic, atraumatic. Eyes: Pupils equal round and reactive to light, extra-ocular motions intact. Lids and lashes normal. Conjunctiva and sclera are non-icteric and not injected. Cornea within normal limits. Periorbital areas with no swelling, redness, or edema. ENT: Nares patent. No nasal discharge, no septal abnormalities noted. Tympanic membranes are normal and external auditory canals are clear. Oropharynx with no redness, swelling, or masses, exudates, or evidence of obstruction, uvula midline. Mucous membranes moist. Neck: Trachea midline, no thyromegaly or masses palpated, and no cervical lymphadenopathy. Supple, full range of motion without nuchal rigidity, or vertebral point tenderness. No Meningismus. Chest/axilla: Normal chest wall appearance and motion. Nontender with no deformity. No lesions are appreciated. Cardiovascular: Regular rate and rhythm with a normal S1 and S2. No gallops, murmurs, or rubs. Normal PMI, no JVD. No pulse deficits. Respiratory: Lungs have equal breath sounds bilaterally, clear to auscultation and percussion. No rales, rhonchi or wheezes noted. No increased work of breathing, no retractions or nasal flaring. Abdomen/GI: Soft, non-tender, with normal bowel sounds. No distension or tympany. No guarding or rebound. No evidence of tenderness throughout. Back: No spinal tenderness. No costovertebral tenderness. Full range of motion. Skin: Warm, dry with normal turgor. Normal color with no rashes, no lesions, and no evidence of cellulitis. Neuro: Awake and alert, GCS 15, oriented to person, place, time, and situation. Cranial nerves II-XII grossly intact. Motor strength 5/5 in all extremities. Sensory grossly intact. Cerebellar exam normal. Normal gait. Psych: Awake, alert, with orientation to person, place and time. Behavior, mood, and affect are within normal limits. 17:45 Musculoskeletal/extremity: Extremities: grossly normal except: generalized joint and wa body aches. no swelling ot increased warmth. Vital Signs: 11:15 BP 155 / 98; Pulse 62; Resp 18; Pulse Ox 96% ; Weight 122.02 kg; Height 5 ft. 7 in. ms (170.18 cm); Pain 9/10; 13:10 BP 146 / 81; Pulse 50; Resp 14; Pulse Ox 92% on R/A; bp 14:30 BP 171 / 96; Pulse 50; Resp 16; Pulse Ox 93% ; bp 11:15 Body Mass Index 42.13 (122.02 kg, 170.18 cm) ms MDM: 10:53 Patient medically screened. wa 17:46 Differential Diagnosis r/o electrolyte abnml. r/o ACS. consider acute infectious wa process. Data reviewed: vital signs, nurses notes. 17:48 Test interpretation: by ED physician or midlevel provider: labs noted for leukocytosis, wa mild hypoerglycemia. 18:01 Test interpretation: by ED physician or midlevel provider: CXR: no acute process. EKG: mt HR 48. sinus. marked bradycardia. Response to treatment: the patient's symptoms have markedly improved after treatment. 18:03 Special discussion: no findings to support any particular diagnosis. will have pt wa maintain close f/u with PMD. 02/12 11:12 Order name: Urine Dipstick--Ancillary (enter results); Complete Time: 12:36 em1 02/12 11:33 Order name: Basic Metabolic Panel; Complete Time: 12:36 mt 02/12 11:33 Order name: CBC with Diff; Complete Time: 12:36 mt 02/12 11:33 Order name: Hepatic Function; Complete Time: 12:36 mt 02/12 11:33 Order name: Lipase; Complete Time: 12:36 mt 02/12 11:33 Order name: Urine Microscopic Only; Complete Time: 12:36 mt 02/12 11:34 Order name: Urine Culture mt 02/12 12:39 Order name: Magnesium; Complete Time: 13:38 02/12 12:39 Order name: NT PRO-BNP; Complete Time: 13:38 02/12 12:39 Order name: PT-INR; Complete Time: 13:38 02/12 12:39 Order name: Troponin (emerg Dept Use Only); Complete Time: 13:38 02/12 12:39 Order name: XRAY Chest (1 view); Complete Time: 13:07 02/12 11:33 Order name: IV Saline Lock; Complete Time: 11:44 02/12 11:33 Order name: Labs collected and sent; Complete Time: 11:44 02/12 12:39 Order name: EKG; Complete Time: 12:41 02/12 12:39 Order name: Cardiac monitoring; Complete Time: 12:43 02/12 12:39 Order name: EKG - Nurse/Tech; Complete Time: 12:43 02/12 12:39 Order name: O2 Per Protocol; Complete Time: 12:43 02/12 12:39 Order name: O2 Sat Monitoring; Complete Time: 12:43 mt Administered Medications: 11:40 Drug: Zofran 4 mg Route: IVP; Site: right wrist; bp 15:56 Follow up: Response: No adverse reaction bp 11:40 Drug: [place] 5 mg-325 mg 1 tabs Route: PO; bp 15:56 Follow up: Response: No adverse reaction bp 11:40 Drug: NS 0.9% 500 ml Route: IV; Rate: bolus; Site: right wrist; bp 15:56 Follow up: IV Status: Completed infusion bp 11:40 Drug: Pepcid 20 mg Route: IVP; Site: right wrist; bp 15:55 Follow up: Response: No adverse reaction bp 14:30 Drug: fentaNYL (PF) 50 mcg Route: IVP; Site: right wrist; bp 15:55 Follow up: Response: No adverse reaction bp 14:30 Drug: Zofran 2 mg Route: IVP; Site: right wrist; bp 15:55 Follow up: Response: No adverse reaction bp Disposition: 02/12/19 15:17 Discharged to Home. Impression: Generalized joint aches, Myalgias. - Condition is Stable. - Discharge Instructions: Weakness, [id number]. - Medication Reconciliation Form, Thank You Letter, Antibiotic Education, Prescription Opioid Use form. - Follow up: Private Physician; When: 1 - 2 days; Reason: Recheck today's complaints. - Problem is new. - Symptoms have improved. - Notes: take pain medication. follow up with your doctor within 1-2 days for further evaluation Signatures: Dispatcher [employer] EDPb Garcia, RN RN sg Carlito Springer MD MD wa Peltier, Brian, RN RN bp Corrections: (The following items were deleted from the chart) 15:57 15:17 02/12/2019 15:17 Discharged to Home. Impression: Generalized joint aches; bp Myalgias. Condition is Stable. Forms are Medication Reconciliation Form, Thank You Letter, Antibiotic Education, Prescription Opioid Use. Follow up: Private Physician; When: 1 - 2 days; Reason: Recheck today's complaints. Problem is new. Symptoms have improved. alesha
--- NOTE | 2019-02-12 15:17 | ER ---
Nurse's Notes [facility] Name: Ankita Todd Age: 58 yrs Sex: Female : 1960 Arrival Date: 02/12/2019 Time: 10:47 Bed 7 Private MD: Diagnosis: Generalized joint aches;Myalgias Presentation: 02/12 11:02 Presenting complaint: Patient states: Recent surgery to throat, reports pain and sg bodyaces for several days now, reports having chills but unsure if any fever, denies N/V/D at this time. Transition of care: patient was not received from another setting of care. Onset of symptoms was February 12, 2019. Risk Assessment: Do you want to hurt yourself or someone else? Patient reports no desire to harm self or others. Initial Sepsis Screen: Does the patient have a suspected source of infection? Yes: Dysuria/Frequency/Urgency/UTI. Care prior to arrival: None. 11:02 Method Of Arrival: Ambulatory sg 11:02 Acuity: BRYAN 3 sg 11:04 Note pt uses dry erase board to communicate due to pain from surgery. sg 11:04 Initial Sepsis Screen: Does the patient meet any 2 criteria? No. Patient's initial hj sepsis screen is negative. Triage Assessment: 11:05 General: Appears in no apparent distress. comfortable, Behavior is cooperative, bp appropriate for age, anxious. Pain: Complains of pain in GENERALIZED. EENT: No deficits noted. Neuro: No deficits noted. Cardiovascular: No deficits noted. Respiratory: No deficits noted. GI: No signs and/or symptoms were reported involving the gastrointestinal system. : No signs and/or symptoms were reported regarding the genitourinary system. Derm: No deficits noted. Musculoskeletal: No deficits noted. Historical: - Allergies: 11:04 Demerol; sg 11:04 Diflucan; sg 11:04 Morphine (Doesn't Work); sg 11:04 Nitrofurantoin Macrocrystal; sg 11:04 tramadol; sg - PMHx: 11:04 Anxiety; Colitis; Diabetes - NIDDM; High Cholesterol; Hypertension; kidney stent; Sleep sg Apnea; - PSHx: 11:04 Kidney Stent placement; Kidney Stent Removal; Hysterectomy; left nephrectomy; sg - Immunization history:: Adult Immunizations up to date. - Social history:: Smoking status: Patient/guardian denies using tobacco. - Ebola Screening: : Patient negative for fever greater than or equal to 101.5 degrees Fahrenheit, and additional compatible Ebola Virus Disease symptoms Patient denies exposure to infectious person Patient denies travel to an Ebola-affected area in the 21 days before illness onset No symptoms or risks identified at this time. - Family history:: not pertinent. - Hospitalizations: : No recent hospitalization is reported. Screenin:28 Abuse screen: Denies threats or abuse. Denies injuries from another. Nutritional bp screening: No deficits noted. Tuberculosis screening: No symptoms or risk factors identified. Fall Risk None identified. Assessment: 11:05 General: SEE TRIAGE NOTE. bp 13:10 Reassessment: ALL CURRENT ORDERS COMPLETED, RESULTS PENDING. bp 15:54 Reassessment: PT D/C HOME AMBULATORY, DX WITH MYALGIA. bp Vital Signs: 11:15 BP 155 / 98; Pulse 62; Resp 18; Pulse Ox 96% ; Weight 122.02 kg; Height 5 ft. 7 in. ms (170.18 cm); Pain 9/10; 13:10 BP 146 / 81; Pulse 50; Resp 14; Pulse Ox 92% on R/A; bp 14:30 BP 171 / 96; Pulse 50; Resp 16; Pulse Ox 93% ; bp 11:15 Body Mass Index 42.13 (122.02 kg, 170.18 cm) ms ED Course: 10:47 Patient arrived in ED. mr 10:52 Carlito Springer MD is Attending Physician. wa 10:54 Sd Ayala, JULIO C is Primary Nurse. bp 11:03 Triage completed. sg 11:03 Arm band placed on. sg 11:28 Patient has correct armband on for positive identification. Bed in low position. Call bp light in reach. Side rails up X2. 11:40 Inserted saline lock: 20 gauge in right wrist, using aseptic technique. Blood collected.bp 11:43 Urine collected: clean catch specimen, clear. ms 12:47 X-ray completed. Portable x-ray completed in exam room. Patient tolerated procedure jb2 well. 12:49 XRAY Chest (1 view) In Process Unspecified. EDMS 14:02 No provider procedures requiring assistance completed. IV discontinued, intact, hj bleeding controlled, No redness/swelling at site. Pressure dressing applied. Administered Medications: 11:40 Drug: Zofran 4 mg Route: IVP; Site: right wrist; bp 15:56 Follow up: Response: No adverse reaction bp 11:40 Drug: [place] 5 mg-325 mg 1 tabs Route: PO; bp 15:56 Follow up: Response: No adverse reaction bp 11:40 Drug: NS 0.9% 500 ml Route: IV; Rate: bolus; Site: right wrist; bp 15:56 Follow up: IV Status: Completed infusion bp 11:40 Drug: Pepcid 20 mg Route: IVP; Site: right wrist; bp 15:55 Follow up: Response: No adverse reaction bp 14:30 Drug: fentaNYL (PF) 50 mcg Route: IVP; Site: right wrist; bp 15:55 Follow up: Response: No adverse reaction bp 14:30 Drug: Zofran 2 mg Route: IVP; Site: right wrist; bp 15:55 Follow up: Response: No adverse reaction bp Outcome: 14:02 Discharged to home ambulatory. hj 14:02 Condition: stable 14:02 Discharge instructions given to patient, Instructed on discharge instructions, follow up and referral plans. medication usage, Demonstrated understanding of instructions, follow-up care, medications, Prescriptions given X 1. 15:17 Discharge ordered by . wa 15:57 Patient left the ED. bp Signatures: Dispatcher [employer] EDMS Pb Pizano, Soledad Marie RN mr NaqviEmeka Maria ms Joaquin, Henry, RN RN hj Appiah, William, MD MD wa Peltier, Brian, RN RN bp
--- NOTE | 2019-02-13 06:56 | EKG ---
Test Date: 2019-02-12 Test Time: 13:27:57 [facility] Assistant Director: JOSHUA MEASUREMENT RESULTS: Intervals: Rate: 48 VT: 174 QRSD: 94 QT: 468 QTc: 418 [place]: P: 53 VT: 174 QRS: 24 T: 64 INTERPRETIVE STATEMENTS: Marked sinus bradycardia Abnormal ECG Compared to ECG 10/08/2017 11:09:26 Sinus rhythm no longer present Left ventricular hypertrophy no longer present Electronically Signed On 02-13-19 06:53:26 CDT by Eliecer Hidalgo
[2019-02-13 19:36] VITALS: BP 171/96; O2SAT 93
== END 2019-02-12 15:57 | disposition home or self-care (01) ==
LOC: ER 10:44
DX: M79.10 Myalgia, unspecified site (principal); I10 Essential (primary) hypertension; Z88.5 Allergy status to narcotic agent; Z88.6 Allergy status to analgesic agent; Z88.8 Allergy status to other drugs, medicaments and biological substances; Z90.5 Acquired absence of kidney
CPT/HCPCS: 36415; 71045; 80048; 80076; 81003; 81015; 83690; 83735; 83880; 84484; 85025; 85610; 87086; 87088; 93005; 96361; 96374; 96375; 99284; J2405; J3010; J7030

== ENCOUNTER 2019-06-26 19:47 | Observation (INO) | payer BC ==
--- OUTSIDE RECORDS SUMMARY | 2019-06-26 19:56 | XMS REPORT ---
:1960 [facility] Address [address] 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 Signing Pathologist Direct Phone Line: [phone] signed by Tony Vallejo MD on 12/07/2017 [...] who concurs with a diagnosis of endosalpingiosis. 74226, 10394, [id number], 13002Azcuppy of left kidney, chronic infection Left kidney [...] margins; A2, area of dense insertion; A3-A8, insurance claim representative sections of area of dense adhesions at possible UPJ; A9-A16, insurance claim representative sections of pelvis and caliceal system; A17-A18, insurance claim representative sections of renal parenchyma; A19-A21, one bisected lymph node in each cut surface; A22-A28, one serially sectioned lymph node. DB/ewPerformed.The following special studies were performed on this case and the interpretation is incorporated in the diagnostic report above:BLOCK A20- CK7, CK20, PAX8, ER, KI-67BLOCK A21- CK7, CK20, PAX8, KI-67The immunohistochemistry test was developed and its performance characteristics determined by [facility], Pathology Laboratory. It has not been [...] Value Reference Range Comments CULTURE (BEAKER) (test niwk=0899) No growth in 5 days POCT-GLUCOSE [id number] 07:56:00 Test Item Value Reference Range Comments POC-GLUCOSE METER (BEAKER) 287 mg/dL 70-110 TESTED AT [facility] [address] [facility] (test vaay=0556) [facility] [address] BASIC METABOLIC [id number] 07:51:00 Test Item Value Reference Range Comments SODIUM (BEAKER) (test 138 meq/L 136-145 xeoe=956) POTASSIUM (BEAKER) (test 4.0 meq/L 3.5-5.1 binq=633) CHLORIDE (BEAKER) (test 105 meq/L 98-107 xkft=622) CO2 (BEAKER) (test 24 meq/L 22-29 vhow=991) BLOOD UREA NITROGEN 9 mg/dL 7-21 (BEAKER) (test lyyd=128) CREATININE (BEAKER) (test 1.01 mg/dL 0.57-1.25 xnfg=135) GLUCOSE RANDOM (BEAKER) 215 mg/dL 70-105 (test fave=907) CALCIUM (BEAKER) (test 9.0 mg/dL 8.4-10.2 kqmp=587) EGFR (BEAKER) (test 56 mL/min/1.73 sq m ESTIMATED GFR IS NOT hnqc=9704) ACCURATE CREATININE CLEARANCE IN PREDICTING GLOMERULAR FILTRATION RATE. ESTIMATED GFR IS NOT APPLICABLE FOR DIALYSIS PATIENTS. CBC W/PLT COUNT & AUTO [id number] 05:57:00 Test Item Value Reference Range Comments WHITE BLOOD CELL COUNT (BEAKER) (test qnqx=341) 10.0 K/ L 3.5-10.5 RED BLOOD CELL COUNT (BEAKER) (test ispz=888) 3.72 M/ L 3.93-5.22 HEMOGLOBIN (BEAKER) (test zywe=561) 10.1 GM/DL 11.2-15.7 HEMATOCRIT (BEAKER) (test kvem=512) 32.5 % 34.1-44.9 MEAN CORPUSCULAR VOLUME (BEAKER) (test odkw=240) 87.4 fL 79.4-94.8 MEAN CORPUSCULAR HEMOGLOBIN (BEAKER) (test 27.2 pg 25.6-32.2 kyoq=218) MEAN CORPUSCULAR HEMOGLOBIN CONC (BEAKER) (test 31.1 GM/DL 32.2-35.5 msbu=456) RED CELL DISTRIBUTION WIDTH (BEAKER) (test 13.7 % 11.7-14.4 hdjd=961) PLATELET COUNT (BEAKER) (test cxmn=743) 290 K/CU MM 150-450 MEAN PLATELET VOLUME (BEAKER) (test azgg=353) 8.7 fL 9.4-12.3 NUCLEATED RED BLOOD CELLS (BEAKER) (test 0 /100 WBC 0-0 tkxm=697) NEUTROPHILS RELATIVE PERCENT (BEAKER) (test 68 % ndgt=841) LYMPHOCYTES RELATIVE PERCENT (BEAKER) (test 16 % medx=618) MONOCYTES RELATIVE PERCENT (BEAKER) (test 11 % amnm=000) EOSINOPHILS RELATIVE PERCENT (BEAKER) (test 3 % vjuc=640) BASOPHILS RELATIVE PERCENT (BEAKER) (test 1 % exfu=436) NEUTROPHILS ABSOLUTE COUNT (BEAKER) (test 6.82 K/ L 1.56-6.13 hkat=869) LYMPHOCYTES ABSOLUTE COUNT (BEAKER) (test 1.56 K/ L 1.18-3.74 tfnr=543) MONOCYTES ABSOLUTE COUNT (BEAKER) (test 1.13 K/ L 0.24-0.36 jocf=968) EOSINOPHILS ABSOLUTE COUNT (BEAKER) (test 0.28 K/ L 0.04-0.36 ruzq=159) BASOPHILS ABSOLUTE COUNT (BEAKER) (test 0.05 K/ L 0.01-0.08 fsvt=281) IMMATURE GRANULOCYTES-RELATIVE PERCENT (BEAKER) 2 % 0-1 (test zwdc=5641) POCT-GLUCOSE [id number] 21:03:00 Test Item Value Reference Range Comments POC-GLUCOSE METER (BEAKER) 166 mg/dL 70-110 TESTED AT [address] (test kzxy=6417) [facility] [address] POCT-GLUCOSE [id number] 18:19:00 Test Item Value Reference Range Comments POC-GLUCOSE METER (BEAKER) 199 mg/dL 70-110 TESTED AT [address] (test wxvl=0499) [facility] [address] POCT-GLUCOSE [id number] 12:08:00 Test Item Value Reference Range Comments POC-GLUCOSE METER (BEAKER) 160 mg/dL 70-110 TESTED AT [facility] [address] [facility] (test ssvg=6440) [facility] [address] POCT-GLUCOSE [id number] 09:10:00 Test Item Value Reference Range Comments POC-GLUCOSE METER (BEAKER) 170 mg/dL 70-110 TESTED AT [facility] [address] [facility] (test svkh=1667) [facility] [address] BASIC METABOLIC [id number] 07:03:00 Test Item Value Reference Range Comments SODIUM (BEAKER) (test 135 meq/L 136-145 mhov=474) POTASSIUM (BEAKER) (test 4.0 meq/L 3.5-5.1 iyvc=020) CHLORIDE (BEAKER) (test 105 meq/L 98-107 zcan=508) CO2 (BEAKER) (test 21 meq/L 22-29 nmwf=740) BLOOD UREA NITROGEN 11 mg/dL 7-21 (BEAKER) (test agxf=867) CREATININE (BEAKER) (test 0.83 mg/dL 0.57-1.25 iisz=510) GLUCOSE RANDOM (BEAKER) 139 mg/dL 70-105 (test vlbz=956) CALCIUM (BEAKER) (test 8.5 mg/dL 8.4-10.2 xbwz=039) EGFR (BEAKER) (test 71 mL/min/1.73 sq m ESTIMATED GFR IS NOT micb=4793) ACCURATE CREATININE CLEARANCE IN PREDICTING GLOMERULAR FILTRATION RATE. ESTIMATED GFR IS NOT APPLICABLE FOR DIALYSIS PATIENTS. CBC W/PLT COUNT & AUTO [id number] 06:26:00 Test Item Value Reference Range Comments WHITE BLOOD CELL COUNT (BEAKER) (test flpw=117) 11.8 K/ L 3.5-10.5 RED BLOOD CELL COUNT (BEAKER) (test oadm=098) 3.52 M/ L 3.93-5.22 HEMOGLOBIN (BEAKER) (test nfph=154) 9.7 GM/DL 11.2-15.7 HEMATOCRIT (BEAKER) (test bjrl=456) 30.7 % 34.1-44.9 MEAN CORPUSCULAR VOLUME (BEAKER) (test vkcj=952) 87.2 fL 79.4-94.8 MEAN CORPUSCULAR HEMOGLOBIN (BEAKER) (test 27.6 pg 25.6-32.2 wdct=469) MEAN CORPUSCULAR HEMOGLOBIN CONC (BEAKER) (test 31.6 GM/DL 32.2-35.5 azie=574) RED CELL DISTRIBUTION WIDTH (BEAKER) (test 13.7 % 11.7-14.4 ileq=773) PLATELET COUNT (BEAKER) (test glxj=209) 239 K/CU MM 150-450 MEAN PLATELET VOLUME (BEAKER) (test rkmx=646) 8.6 fL 9.4-12.3 NUCLEATED RED BLOOD CELLS (BEAKER) (test 0 /100 WBC 0-0 knvg=490) NEUTROPHILS RELATIVE PERCENT (BEAKER) (test 75 % saqm=671) LYMPHOCYTES RELATIVE PERCENT (BEAKER) (test 13 % zprn=825) MONOCYTES RELATIVE PERCENT (BEAKER) (test 10 % zsac=444) EOSINOPHILS RELATIVE PERCENT (BEAKER) (test 1 % xiie=666) BASOPHILS RELATIVE PERCENT (BEAKER) (test 0 % emwa=815) NEUTROPHILS ABSOLUTE COUNT (BEAKER) (test 8.87 K/ L 1.56-6.13 fjni=845) LYMPHOCYTES ABSOLUTE COUNT (BEAKER) (test 1.50 K/ L 1.18-3.74 mrdh=995) MONOCYTES ABSOLUTE COUNT (BEAKER) (test 1.12 K/ L 0.24-0.36 viac=854) EOSINOPHILS ABSOLUTE COUNT (BEAKER) (test 0.16 K/ L 0.04-0.36 ntfs=233) BASOPHILS ABSOLUTE COUNT (BEAKER) (test 0.03 K/ L 0.01-0.08 qsld=388) IMMATURE GRANULOCYTES-RELATIVE PERCENT (BEAKER) 1 % 0-1 (test znvn=9467) POCT-GLUCOSE [id number] 20:55:00 Test Item Value Reference Range Comments POC-GLUCOSE METER (BEAKER) 219 mg/dL 70-110 TESTED AT [facility] [address] [facility] (test slxj=1278) [facility] [address] BASIC METABOLIC [id number] 13:42:00 Test Item Value Reference Range Comments SODIUM (BEAKER) (test 141 meq/L 136-145 bqhd=805) POTASSIUM (BEAKER) (test 4.5 meq/L 3.5-5.1 Specimen slightly tbkx=186) hemolyzed CHLORIDE (BEAKER) (test 109 meq/L 98-107 ymbn=244) CO2 (BEAKER) (test 22 meq/L 22-29 lkkj=548) BLOOD UREA NITROGEN 9 mg/dL 7-21 (BEAKER) (test jtht=379) CREATININE (BEAKER) (test 0.97 mg/dL 0.57-1.25 Specimen slightly xgpe=561) hemolyzed GLUCOSE RANDOM (BEAKER) 229 mg/dL 70-105 (test mlmb=959) CALCIUM (BEAKER) (test 8.9 mg/dL 8.4-10.2 ywjs=497) EGFR (BEAKER) (test 59 mL/min/1.73 sq m ESTIMATED GFR IS NOT cebx=4692) ACCURATE CREATININE CLEARANCE IN PREDICTING GLOMERULAR FILTRATION RATE. ESTIMATED GFR IS NOT APPLICABLE FOR DIALYSIS PATIENTS. HEMOGLOBIN AND [id number] 13:15:00 Test Item Value Reference Range Comments HEMOGLOBIN (BEAKER) (test xvxj=631) 10.8 GM/DL 11.2-15.7 HEMATOCRIT (BEAKER) (test ajfo=143) 34.0 % 34.1-44.9 URINE [id number] 10:10:00 Test Item Value Reference Range Comments CULTURE (BEAKER) (test See comment 70-79,000 col/mL Beronica npsx=6794) albicans CALCIUM, [id number] 10:01:00 Test Item Value Reference Range Comments CALCIUM IONIZED (BEAKER) (test nqxa=570) 1.09 mmol/L 1.12-1.27 PH, BLOOD (BEAKER) (test oxpa=8224) 7.38 BLOOD GAS, [id number] 10:01:00 Test Item Value Reference Range Comments PH ARTERIAL (BEAKER) (test tpkh=690) 7.38 7.35-7.45 PCO2 ARTERIAL (BEAKER) (test uqtt=269) 43 mmHg 35-45 PO2 ARTERIAL (BEAKER) (test zrst=664) 82 mmHg 80-90 O2 SATURATION ARTERIAL (BEAKER) (test wjtl=367) 95.8 % 96.0-97.0 HCO3 ARTERIAL (BEAKER) (test zxor=590) 25 mmol/L 21-29 BASE EXCESS ARTERIAL (BEAKER) (test hdgz=870) -0.7 mmol/L -2.0-3.0 PATIENT TEMPERATURE (BEAKER) (test sqqb=8341) 37.0 C FIO2 (BEAKER) (test isdw=5197) 100.0 % SODIUM NA-STAT [id number] 10:01:00 Test Item Value Reference Range Comments SODIUM (BEAKER) (test fblr=323) 134 meq/L 135-148 GLUCOSE-STAT [id number] 10:01:00 Test Item Value Reference Range Comments GLUCOSE RANDOM (BEAKER) (test ywpt=714) 192 mg/dL 70-110 HGB/HCT (H&H) - STAT [id number] 10:01:00 Test Item Value Reference Range Comments HEMOGLOBIN (BEAKER) (test espn=332) 11.7 g/dL 12.0-15.0 HEMATOCRIT (BEAKER) (test qnmi=949) 34.0 % 36.0-45.0 POTASSIUM-STAT [id number] 09:56:00 Test Item Value Reference Range Comments POTASSIUM (BEAKER) (test hfbi=061) 4.0 meq/L 3.6-5.5 LACTIC ACID, VENOUS, WHOLE [id number] 06:39:00 Test Item Value Reference Range Comments LACTATE BLOOD VENOUS (2) 0.7 mmol/L 0.5-2.2 Specimen slightly hemolyzed (BEAKER) (test hdvv=6589) Effective 12/16/2015: Units/Reference Range ChangeNew: 0.5-2.2 mmol/L Previous: 5 -20 mg/[id number] 06:36:00 Test Item Value Reference Range Comments PHOSPHORUS (BEAKER) (test cahw=203) 3.7 mg/dL 2.3-4.7 [id number] 06:36:00 Test Item Value Reference Range Comments MAGNESIUM (BEAKER) (test yjdj=993) 1.6 mg/dL 1.6-2.6 BASIC METABOLIC [id number] 06:36:00 Test Item Value Reference Range Comments SODIUM (BEAKER) (test 135 meq/L 136-145 xxgg=046) POTASSIUM (BEAKER) (test 4.0 meq/L 3.5-5.1 lojf=670) CHLORIDE (BEAKER) (test 102 meq/L 98-107 iaaj=321) CO2 (BEAKER) (test 22 meq/L 22-29 pbpa=226) BLOOD UREA NITROGEN 9 mg/dL 7-21 (BEAKER) (test ellq=569) CREATININE (BEAKER) (test 0.95 mg/dL 0.57-1.25 imae=366) GLUCOSE RANDOM (BEAKER) 181 mg/dL 70-105 (test shkf=930) CALCIUM (BEAKER) (test 9.5 mg/dL 8.4-10.2 usem=310) EGFR (BEAKER) (test 61 mL/min/1.73 sq m ESTIMATED GFR IS NOT rupx=7446) ACCURATE CREATININE CLEARANCE IN PREDICTING GLOMERULAR FILTRATION RATE. ESTIMATED GFR IS NOT APPLICABLE FOR DIALYSIS PATIENTS. POCT-GLUCOSE [id number] 21:05:00 Test Item Value Reference Range Comments POC-GLUCOSE METER (BEAKER) 215 mg/dL 70-110 TESTED AT [address] (test crsy=3938) [place] [address] POCT-GLUCOSE [id number] 17:48:00 Test Item Value Reference Range Comments POC-GLUCOSE METER (BEAKER) 150 mg/dL 70-110 TESTED AT [address] (test gxly=6755) [place] [address] POCT-GLUCOSE [id number] 12:00:00 Test Item Value Reference Range Comments POC-GLUCOSE METER (BEAKER) 204 mg/dL 70-110 TESTED AT [address] (test hznq=4284) [place] [address] URINE [id number] 08:15:00 Test Item Value Reference Range Comments CULTURE (BEAKER) (test 40-49,000 col/mL skin mckenna dcbh=7567) POCT-GLUCOSE [id number] 07:41:00 Test Item Value Reference Range Comments POC-GLUCOSE METER (BEAKER) 154 mg/dL 70-110 TESTED AT [address] (test nyxm=3376) [place] [address] [id number] 04:29:00 Test Item Value Reference Range Comments PHOSPHORUS (BEAKER) (test hwtn=522) 3.2 mg/dL 2.3-4.7 [id number] 04:29:00 Test Item Value Reference Range Comments MAGNESIUM (BEAKER) (test iuqq=632) 1.6 mg/dL 1.6-2.6 BASIC METABOLIC [id number] 04:29:00 Test Item Value Reference Range Comments SODIUM (BEAKER) (test 132 meq/L 136-145 hlms=864) POTASSIUM (BEAKER) (test 4.3 meq/L 3.5-5.1 algl=447) CHLORIDE (BEAKER) (test 102 meq/L 98-107 elcr=238) CO2 (BEAKER) (test 23 meq/L 22-29 wgpj=325) BLOOD UREA NITROGEN 14 mg/dL 7-21 (BEAKER) (test gyjo=043) CREATININE (BEAKER) (test 1.01 mg/dL 0.57-1.25 oxmw=500) GLUCOSE RANDOM (BEAKER) 186 mg/dL 70-105 (test khdo=063) CALCIUM (BEAKER) (test 9.3 mg/dL 8.4-10.2 smqb=192) EGFR (BEAKER) (test 56 mL/min/1.73 sq m ESTIMATED GFR IS NOT dxos=1905) ACCURATE CREATININE CLEARANCE IN PREDICTING GLOMERULAR FILTRATION RATE. ESTIMATED GFR IS NOT APPLICABLE FOR DIALYSIS PATIENTS. LACTIC ACID, VENOUS, WHOLE [id number] 04:27:00 Test Item Value Reference Range Comments LACTATE BLOOD VENOUS (2) (BEAKER) (test 0.7 mmol/L 0.5-2.2 gjrn=5289) Effective 12/16/2015: Units/Reference Range ChangeNew: 0.5-2.2 mmol/L Previous: 5 -20 mg/dLCBC W/PLT COUNT & AUTO [id number] 04:11:00 Test Item Value Reference Range Comments WHITE BLOOD CELL COUNT (BEAKER) (test vhmf=359) 13.9 K/ L 3.5-10.5 RED BLOOD CELL COUNT (BEAKER) (test uywa=505) 4.13 M/ L 3.93-5.22 HEMOGLOBIN (BEAKER) (test utey=647) 11.6 GM/DL 11.2-15.7 HEMATOCRIT (BEAKER) (test nwdv=418) 35.7 % 34.1-44.9 MEAN CORPUSCULAR VOLUME (BEAKER) (test xjbj=952) 86.4 fL 79.4-94.8 MEAN CORPUSCULAR HEMOGLOBIN (BEAKER) (test 28.1 pg 25.6-32.2 ejfj=485) MEAN CORPUSCULAR HEMOGLOBIN CONC (BEAKER) (test 32.5 GM/DL 32.2-35.5 oxpm=368) RED CELL DISTRIBUTION WIDTH (BEAKER) (test 13.8 % 11.7-14.4 wfmp=164) PLATELET COUNT (BEAKER) (test qxjh=955) 266 K/CU MM 150-450 MEAN PLATELET VOLUME (BEAKER) (test hqil=879) 8.6 fL 9.4-12.3 NUCLEATED RED BLOOD CELLS (BEAKER) (test 0 /100 WBC 0-0 tqhk=683) NEUTROPHILS RELATIVE PERCENT (BEAKER) (test 77 % piif=201) LYMPHOCYTES RELATIVE PERCENT (BEAKER) (test 11 % inje=242) MONOCYTES RELATIVE PERCENT (BEAKER) (test 10 % wbwu=399) EOSINOPHILS RELATIVE PERCENT (BEAKER) (test 1 % bjpc=424) BASOPHILS RELATIVE PERCENT (BEAKER) (test 0 % klkg=878) NEUTROPHILS ABSOLUTE COUNT (BEAKER) (test 10.67 K/ L 1.56-6.13 hplx=270) LYMPHOCYTES ABSOLUTE COUNT (BEAKER) (test 1.55 K/ L 1.18-3.74 hrct=992) MONOCYTES ABSOLUTE COUNT (BEAKER) (test 1.31 K/ L 0.24-0.36 xamm=706) EOSINOPHILS ABSOLUTE COUNT (BEAKER) (test 0.15 K/ L 0.04-0.36 uody=143) BASOPHILS ABSOLUTE COUNT (BEAKER) (test 0.03 K/ L 0.01-0.08 alhz=937) IMMATURE GRANULOCYTES-RELATIVE PERCENT (BEAKER) 1 % 0-1 (test ktsd=9139) POCT-GLUCOSE [id number] 22:31:00 Test Item Value Reference Range Comments POC-GLUCOSE METER (BEAKER) 206 mg/dL 70-110 TESTED AT [facility] [address] [facility] (test ogay=6985) [facility] [address] POCT-GLUCOSE [id number] 17:31:00 Test Item Value Reference Range Comments POC-GLUCOSE METER (BEAKER) 207 mg/dL 70-110 TESTED AT [place] [id number] [facility] (test okct=3064) [facility] [address] ANG, NEPHROSTOMY, PERC, EXTERNAL [id number] 14:49:00Reason for exam:-> Needs left nephrostomy tube. [...] needle. The tract was dilated to 8 Niuean. A small bore catheter was advanced into [...] Esquiveleppauly Verified Date/Time: 11/28/2017 14:49:28 Reading Location: [address] Body Reading Room 02:49 PMPOCT-GLUCOSE [id number] 11:01:00 Test Item Value Reference Range Comments POC-GLUCOSE METER (BEAKER) 195 mg/dL 70-110 TESTED AT [address] (test jmiv=6474) [facility] [address] POCT-LACTIC ACID, [id number] 04:41:00 Test Item Value Reference Range Comments POC-LACTIC ACID, VENOUS 1.2 mmol/L 0.9-1.7 TESTED AT [address] (BEAKER) (test artk=7439) [facility] [address] LEGIONELLA ANTIGEN, [id number] 04:06:00 Test Item Value Reference Range Comments L. PNEUMOPHILA SEROGP 1 Negative - see Negative for L. UR AG (BEAKER) (test comment pneumophila serogroup 1 lmee=6819) antigen, suggesting no recent or current infection with this serogroup. Legionellosis cannot be ruled out since other serogroups and species may cause disease. STREP PNEUMONIAE [id number] 04:04:00 Test Item Value Reference Range Comments STREP PNEUMONIAE ANTIGEN Presumptive negative for Presumptive negative for (BEAKER) (test pneumococcal pneumonia - pneumococcal pneumonia - tluz=1461) see comment see commen Presumptive negative for pneumococcal pneumonia, suggesting no current or recent pneumococcal infection. Infection due to S. pneumoniae cannot be ruled out since the antigen present in the sample may be below the detection limit of the test.PROTHROMBIN [id number] 02:58:00 Test Item Value Reference Range Comments PROTIME (BEAKER) (test pjnt=822) 14.1 seconds 11.7-14.7 INR (BEAKER) (test pask=171) 1.1 <=5.9 RECOMMENDED COUMADIN/WARFARIN INR THERAPY RANGESSTANDARD DOSE: 2.0 - 3.0 Includes: PROPHYLAXIS forvenous thrombosis, systemic embolization; TREATMENT for venous thrombosis and/or pulmonary embolus.HIGH RISK: Target INR is 2.5-3.5 for patients with mechanical heart valves.[id number] 02:56:00 Test Item Value Reference Range Comments PHOSPHORUS (BEAKER) (test hphy=230) 3.2 mg/dL 2.3-4.7 [id number] 02:56:00 Test Item Value Reference Range Comments MAGNESIUM (BEAKER) (test qqgj=229) 1.9 mg/dL 1.6-2.6 HEPATIC FUNCTION [id number] 02:56:00 Test Item Value Reference Range Comments TOTAL PROTEIN (BEAKER) (test iqhf=126) 7.7 gm/dL 6.0-8.3 ALBUMIN (BEAKER) (test ulbf=5532) 3.9 g/dL 3.5-5.0 BILIRUBIN TOTAL (BEAKER) (test wnnw=214) 0.3 mg/dL 0.2-1.2 BILIRUBIN DIRECT (BEAKER) (test cspq=133) 0.2 mg/dL 0.1-0.5 ALKALINE PHOSPHATASE (BEAKER) (test ajuh=697) 113 U/L 40-150 AST (SGOT) (BEAKER) (test lwuc=555) 10 U/L 5-34 ALT (SGPT) (BEAKER) (test exhc=191) 17 U/L 6-55 BASIC METABOLIC [id number] 02:30:00 Test Item Value Reference Range Comments SODIUM (BEAKER) (test 133 meq/L 136-145 ignf=816) POTASSIUM (BEAKER) (test 4.5 meq/L 3.5-5.1 pgjz=064) CHLORIDE (BEAKER) (test 97 meq/L 98-107 avra=957) CO2 (BEAKER) (test 25 meq/L 22-29 liop=672) BLOOD UREA NITROGEN 18 mg/dL 7-21 (BEAKER) (test guco=864) CREATININE (BEAKER) (test 1.32 mg/dL 0.57-1.25 pfua=777) GLUCOSE RANDOM (BEAKER) 187 mg/dL 70-105 (test busm=983) CALCIUM (BEAKER) (test 10.1 mg/dL 8.4-10.2 fham=863) EGFR (BEAKER) (test 41 mL/min/1.73 sq m ESTIMATED GFR IS NOT xril=6415) ACCURATE CREATININE CLEARANCE IN PREDICTING GLOMERULAR FILTRATION RATE. ESTIMATED GFR IS NOT APPLICABLE FOR DIALYSIS PATIENTS. LACTIC ACID, VENOUS, WHOLE [id number] 02:26:00 Test Item Value Reference Range Comments LACTATE BLOOD VENOUS (2) (BEAKER) (test 1.3 mmol/L 0.5-2.2 mxsj=0344) Effective 12/16/2015: Units/Reference Range ChangeNew: 0.5-2.2 mmol/L Previous: 5 -20 mg/dLCBC W/PLT COUNT & AUTO [id number] 02:17:00 Test Item Value Reference Range Comments WHITE BLOOD CELL COUNT (BEAKER) (test ztoj=663) 14.2 K/ L 3.5-10.5 RED BLOOD CELL COUNT (BEAKER) (test rqfk=644) 4.61 M/ L 3.93-5.22 HEMOGLOBIN (BEAKER) (test sdjb=146) 12.9 GM/DL 11.2-15.7 HEMATOCRIT (BEAKER) (test ufbp=245) 39.5 % 34.1-44.9 MEAN CORPUSCULAR VOLUME (BEAKER) (test qzql=021) 85.7 fL 79.4-94.8 MEAN CORPUSCULAR HEMOGLOBIN (BEAKER) (test 28.0 pg 25.6-32.2 rqdc=529) MEAN CORPUSCULAR HEMOGLOBIN CONC (BEAKER) (test 32.7 GM/DL 32.2-35.5 tytp=025) RED CELL DISTRIBUTION WIDTH (BEAKER) (test 13.7 % 11.7-14.4 itaj=994) PLATELET COUNT (BEAKER) (test zfwb=182) 342 K/CU MM 150-450 MEAN PLATELET VOLUME (BEAKER) (test dghb=166) 8.5 fL 9.4-12.3 NUCLEATED RED BLOOD CELLS (BEAKER) (test 0 /100 WBC 0-0 ntwt=500) NEUTROPHILS RELATIVE PERCENT (BEAKER) (test 62 % kkcl=264) LYMPHOCYTES RELATIVE PERCENT (BEAKER) (test 25 % rxvc=436) MONOCYTES RELATIVE PERCENT (BEAKER) (test 9 % wzdy=020) EOSINOPHILS RELATIVE PERCENT (BEAKER) (test 2 % kjmx=716) BASOPHILS RELATIVE PERCENT (BEAKER) (test 1 % tshs=006) NEUTROPHILS ABSOLUTE COUNT (BEAKER) (test 8.79 K/ L 1.56-6.13 uwlq=122) LYMPHOCYTES ABSOLUTE COUNT (BEAKER) (test 3.54 K/ L 1.18-3.74 vcqx=231) MONOCYTES ABSOLUTE COUNT (BEAKER) (test 1.31 K/ L 0.24-0.36 qwpu=345) EOSINOPHILS ABSOLUTE COUNT (BEAKER) (test 0.25 K/ L 0.04-0.36 wmag=605) BASOPHILS ABSOLUTE COUNT (BEAKER) (test 0.08 K/ L 0.01-0.08 gplr=043) IMMATURE GRANULOCYTES-RELATIVE PERCENT (BEAKER) 2 % 0-1 (test uezm=9025) POCT-LACTIC ACID, [id number] 02:01:00 Test Item Value Reference Range Comments POC-LACTIC ACID, VENOUS 2.9 mmol/L 0.9-1.7 TESTED AT [place] [address] [address] (BEAKER) (test uwhr=7334) [facility] [address] [address], [id number] 00:55:00Addendum BeginsREPORT STATUS:A Addendum: Benign as well as neoplastic processes would be included in differential diagnosis for the left UPJ level obstruction. Results including the possibility of an infected obstructed left renal collecting system discussed with Dr. Singh. Signed: Kimberlyn Arellano MDReport Verified Date/Time: 11/28/2017 00:55:04 Reading Location: [address] Reading RoomAddendum EndsFINAL REPORT EXAMINATION: CT [...] Arellano MDReport Verified Date/Time:11/28/2017 00:48:48 Reading Location: [address] Reading Room URINALYSIS W/ [id number] 00:09:00 Test Item Value Reference Range Comments COLOR (BEAKER) (test pcgg=156) Yellow CLARITY (BEAKER) (test kxfw=347) Hazy SPECIFIC GRAVITY UA (BEAKER) (test 1.011 1.001-1.035 qlic=902) PH UA (BEAKER) (test nehi=717) 6.0 5.0-8.0 PROTEIN UA (BEAKER) (test rddl=564) 10 mg/dL Negative GLUCOSE UA (BEAKER) (test gbwp=851) Negative Negative KETONES UA (BEAKER) (test soks=365) Negative Negative BILIRUBIN UA (BEAKER) (test yrrr=291) Negative Negative BLOOD UA (BEAKER) (test xcoq=083) Small Negative NITRITE UA (BEAKER) (test jveg=822) Negative Negative LEUKOCYTE ESTERASE UA (BEAKER) (test Large Negative qwlj=008) UROBILINOGEN UA (BEAKER) (test mtcg=483) 0.2 mg/dL 0.2-1.0 RBC UA (BEAKER) (test dgjn=013) 26 /HPF WBC UA (BEAKER) (test flro=195) 80 /HPF BACTERIA (BEAKER) (test xgrv=517) Rare SQUAMOUS EPITHELIAL (BEAKER) (test 1 /HPF ukry=038) AMORPHOUS CRYSTALS (BEAKER) (test Rare sruc=4122) SOURCE(BEAKER) (test gzyt=2837) Urine, Clean Catch BLOOD [id number] 17:00:00 Test Item Value Reference Range Comments CULTURE (BEAKER) (test ytto=5031) No growth in 5 days BLOOD [id number] 15:30:00 Test Item Value Reference Range Comments CULTURE (BEAKER) From Aerobic Bottle Only (test xbmn=6582) Coagulase negative Staphylococcus GRAM STAIN RESULT From aerobic bottle (BEAKER) (test only: gram positive rgui=0620) cocci in clusters Coagulase Negative Staphylococcus Species [...] required. This sample was tested at the [facility] Clinical Microbiology Laboratory using the [employer] Blood Culture ID Panel.This test is FDA cleared for in vitro diagnostic use and has been [facility] and [facility]. Reference Range: Not DetectedBLOOD [id number] 23:00:00 Test Item Value Reference Range Comments CULTURE (BEAKER) (test zaii=3912) No growth in 5 days MISCELLANEOUS LAB [id number] 14:42:00 Test Item Value Reference Range Comments SCAN RESULT (test beyh=[id number]) Result comments: Coagulase Negative Staphylococcus Species (CoNS) [...] required. This sample was tested at the [facility] Clinical Microbiology Laboratory using the [employer] Film[employer] Blood Culture ID Panel. This test is FDA cleared for in vitro diagnostic use and has been verified and approved by the [facility] Clinical Microbiology laboratory for clinical use. Reference Range: Not DetectedPOCT-GLUCOSE [id number] 13:10:00 Test Item Value Reference Range Comments POC-GLUCOSE METER (BEAKER) 196 mg/dL 70-110 TESTED AT [address] (test sgws=5870) [place] [address] URINE [id number] 11:19:00 Test Item Value Reference Range Comments CULTURE (BEAKER) (test >100,000 col/mL Beronica albicans xykq=9494) <10,000 col/mL skin floraPOCT-GLUCOSE [id number] 07:50:00 Test Item Value Reference Range Comments POC-GLUCOSE METER (BEAKER) 190 mg/dL 70-110 TESTED AT [address] (test vaga=6833) [place] [address] [id number] 06:18:00 Test Item Value Reference Range Comments PHOSPHORUS (BEAKER) (test gmji=372) 3.3 mg/dL 2.3-4.7 [id number] 06:18:00 Test Item Value Reference Range Comments MAGNESIUM (BEAKER) (test hlfh=759) 1.4 mg/dL 1.6-2.6 BASIC METABOLIC [id number] 06:18:00 Test Item Value Reference Range Comments SODIUM (BEAKER) (test 138 meq/L 136-145 rksg=461) POTASSIUM (BEAKER) (test 3.6 meq/L 3.5-5.1 dxbc=175) CHLORIDE (BEAKER) (test 105 meq/L 98-107 ukct=028) CO2 (BEAKER) (test 23 meq/L 22-29 hhpg=322) BLOOD UREA NITROGEN 17 mg/dL 7-21 (BEAKER) (test fios=510) CREATININE (BEAKER) (test 1.55 mg/dL 0.57-1.25 atpj=311) GLUCOSE RANDOM (BEAKER) 158 mg/dL 70-105 (test dlxp=248) CALCIUM (BEAKER) (test 8.5 mg/dL 8.4-10.2 ynyd=949) EGFR (BEAKER) (test 35 mL/min/1.73 sq m ESTIMATED GFR IS NOT hmqa=9062) ACCURATE CREATININE CLEARANCE IN PREDICTING GLOMERULAR FILTRATION RATE. ESTIMATED GFR IS NOT APPLICABLE FOR DIALYSIS PATIENTS. CBC W/PLT COUNT & AUTO [id number] 06:01:00 Test Item Value Reference Range Comments WHITE BLOOD CELL COUNT (BEAKER) (test khjb=555) 12.9 K/ L 3.5-10.5 RED BLOOD CELL COUNT (BEAKER) (test tbyx=219) 3.78 M/ L 3.93-5.22 HEMOGLOBIN (BEAKER) (test eorx=327) 10.6 GM/DL 11.2-15.7 HEMATOCRIT (BEAKER) (test qmib=410) 32.7 % 34.1-44.9 MEAN CORPUSCULAR VOLUME (BEAKER) (test bfka=650) 86.5 fL 79.4-94.8 MEAN CORPUSCULAR HEMOGLOBIN (BEAKER) (test 28.0 pg 25.6-32.2 aexl=996) MEAN CORPUSCULAR HEMOGLOBIN CONC (BEAKER) (test 32.4 GM/DL 32.2-35.5 wehk=099) RED CELL DISTRIBUTION WIDTH (BEAKER) (test 14.8 % 11.7-14.4 ctoz=166) PLATELET COUNT (BEAKER) (test aplm=030) 348 K/CU MM 150-450 MEAN PLATELET VOLUME (BEAKER) (test agfr=202) 9.1 fL 9.4-12.3 NUCLEATED RED BLOOD CELLS (BEAKER) (test 0 /100 WBC 0-0 gdzi=978) NEUTROPHILS RELATIVE PERCENT (BEAKER) (test 57 % twxz=430) LYMPHOCYTES RELATIVE PERCENT (BEAKER) (test 19 % kqlh=893) MONOCYTES RELATIVE PERCENT (BEAKER) (test 13 % stns=963) EOSINOPHILS RELATIVE PERCENT (BEAKER) (test 4 % srbl=265) BASOPHILS RELATIVE PERCENT (BEAKER) (test 1 % flrl=956) NEUTROPHILS ABSOLUTE COUNT (BEAKER) (test 7.34 K/ L 1.56-6.13 cboj=640) LYMPHOCYTES ABSOLUTE COUNT (BEAKER) (test 2.48 K/ L 1.18-3.74 ytia=116) MONOCYTES ABSOLUTE COUNT (BEAKER) (test 1.68 K/ L 0.24-0.36 gjeb=365) EOSINOPHILS ABSOLUTE COUNT (BEAKER) (test 0.56 K/ L 0.04-0.36 hfic=733) BASOPHILS ABSOLUTE COUNT (BEAKER) (test 0.08 K/ L 0.01-0.08 fpkk=016) IMMATURE GRANULOCYTES-RELATIVE PERCENT (BEAKER) 6 % 0-1 (test myuy=2649) POCT-GLUCOSE [id number] 21:08:00 Test Item Value Reference Range Comments POC-GLUCOSE METER (BEAKER) 157 mg/dL 70-110 TESTED AT [address] (test nydk=8068) [place] [address] POCT-GLUCOSE [id number] 11:59:00 Test Item Value Reference Range Comments POC-GLUCOSE METER (BEAKER) 151 mg/dL 70-110 TESTED AT [address] (test bdfk=3010) [place] [id number] CBC W/PLT COUNT & AUTO [id number] 11:31:00 Test Item Value Reference Range Comments WHITE BLOOD CELL COUNT (BEAKER) (test kqwu=910) 11.6 K/ L 3.5-10.5 RED BLOOD CELL COUNT (BEAKER) (test zfhf=794) 3.72 M/ L 3.93-5.22 HEMOGLOBIN (BEAKER) (test nnjm=017) 10.3 GM/DL 11.2-15.7 HEMATOCRIT (BEAKER) (test brcd=928) 32.2 % 34.1-44.9 MEAN CORPUSCULAR VOLUME (BEAKER) (test cywc=377) 86.6 fL 79.4-94.8 MEAN CORPUSCULAR HEMOGLOBIN (BEAKER) (test 27.7 pg 25.6-32.2 nenz=340) MEAN CORPUSCULAR HEMOGLOBIN CONC (BEAKER) (test 32.0 GM/DL 32.2-35.5 cgpp=445) RED CELL DISTRIBUTION WIDTH (BEAKER) (test 14.7 % 11.7-14.4 wgop=387) PLATELET COUNT (BEAKER) (test aoay=012) 281 K/CU MM 150-450 MEAN PLATELET VOLUME (BEAKER) (test cylo=114) 9.1 fL 9.4-12.3 NUCLEATED RED BLOOD CELLS (BEAKER) (test 0 /100 WBC 0-0 sell=746) IMMATURE GRANULOCYTES-RELATIVE PERCENT (BEAKER) 5 % 0-1 (test otab=4202) (MANUAL DIFFERENTIAL)[id number] 11:31:00 Test Item Value Reference Range Comments NEUTROPHILS - REL (DIFF) (BEAKER) (test wksu=4891) 60 % LYMPHOCYTES - REL (DIFF) (BEAKER) (test gieo=0060) 21 % MONOCYTES - REL (DIFF) (BEAKER) (test kfio=5716) 13 % EOSINOPHILS - REL (DIFF) (BEAKER) (test ezxf=9528) 1 % BASOPHILS - REL (DIFF) (BEAKER) (test dtyn=0950) 0 % METAMYELOCYTES-REL (DIFF) (BEAKER) (test mjas=515) 2 % 0-0 MYELOCYTES-REL (DIFF) (BEAKER) (test dizi=7263) 3 % 0-0 NEUTROPHILS - ABS (DIFF) (BEAKER) (test jzan=6238) 6.96 K/ L 1.80-8.00 LYMPHOCYTES - ABS (DIFF) (BEAKER) (test lsds=9810) 2.44 K/ L 1.48-4.50 MONOCYTES - ABS (DIFF) (BEAKER) (test qshk=9508) 1.51 K/ L 0.00-1.30 EOSINOPHILS - ABS (DIFF) (BEAKER) (test ctoh=4637) 0.12 K/ L 0.00-0.50 BASOPHILS - ABS (DIFF) (BEAKER) (test tanr=1782) 0.00 K/ L 0.00-0.20 METAMYELOCTYES - ABS (DIFF) (BEAKER) (test 0.23 K/ L 0.00-0.00 ifuj=220) MYELOCYTES-ABS (DIFF) (BEAKER) (test zayr=1070) 0.35 K/ L 0.00-0.00 TOTAL COUNTED (BEAKER) (test jckg=4413) 100 WBC MORPHOLOGY (BEAKER) (test izxl=592) Normal PLT MORPHOLOGY (BEAKER) (test flbh=571) Normal RBC MORPHOLOGY (BEAKER) (test dqva=167) Normal POCT-GLUCOSE [id number] 07:43:00 Test Item Value Reference Range Comments POC-GLUCOSE METER (BEAKER) 151 mg/dL 70-110 TESTED AT [facility] [address] [facility] (test thom=0105) [facility] [address] BASIC METABOLIC [id number] 06:24:00 Test Item Value Reference Range Comments SODIUM (BEAKER) (test 138 meq/L 136-145 xufk=052) POTASSIUM (BEAKER) (test 3.8 meq/L 3.5-5.1 ybcg=732) CHLORIDE (BEAKER) (test 106 meq/L 98-107 zilx=948) CO2 (BEAKER) (test 21 meq/L 22-29 syog=595) BLOOD UREA NITROGEN 17 mg/dL 7-21 (BEAKER) (test swov=801) CREATININE (BEAKER) (test 1.82 mg/dL 0.57-1.25 jzpx=861) GLUCOSE RANDOM (BEAKER) 137 mg/dL 70-105 (test wvfg=487) CALCIUM (BEAKER) (test 8.6 mg/dL 8.4-10.2 usnf=867) EGFR (BEAKER) (test 29 mL/min/1.73 sq m ESTIMATED GFR IS NOT hzbb=1626) ACCURATE CREATININE CLEARANCE IN PREDICTING GLOMERULAR FILTRATION RATE. ESTIMATED GFR IS NOT APPLICABLE FOR DIALYSIS PATIENTS. [id number] 06:23:00 Test Item Value Reference Range Comments PHOSPHORUS (BEAKER) (test icjp=950) 3.5 mg/dL 2.3-4.7 [id number] 06:23:00 Test Item Value Reference Range Comments MAGNESIUM (BEAKER) (test epsl=501) 1.7 mg/dL 1.6-2.6 POCT-GLUCOSE [id number] 21:50:00 Test Item Value Reference Range Comments POC-GLUCOSE METER (BEAKER) 205 mg/dL 70-110 TESTED AT [address] (test ycmz=3929) [place] [address] POCT-GLUCOSE [id number] 17:18:00 Test Item Value Reference Range Comments POC-GLUCOSE METER (BEAKER) 161 mg/dL 70-110 TESTED AT [address] (test pkwb=7475) [place] [address] URINALYSIS W/ [id number] 13:16:00 Test Item Value Reference Range Comments COLOR (BEAKER) (test jvtg=872) Yellow CLARITY (BEAKER) (test ajja=314) Hazy SPECIFIC GRAVITY UA (BEAKER) (test rlef=759) 1.007 1.001-1.035 PH UA (BEAKER) (test jepu=864) 6.5 5.0-8.0 PROTEIN UA (BEAKER) (test ggqi=439) 30 mg/dL Negative GLUCOSE UA (BEAKER) (test aads=250) Negative Negative KETONES UA (BEAKER) (test yosc=508) Negative Negative BILIRUBIN UA (BEAKER) (test wbtx=826) Negative Negative BLOOD UA (BEAKER) (test fyjg=039) Large Negative NITRITE UA (BEAKER) (test ksek=506) Negative Negative LEUKOCYTE ESTERASE UA (BEAKER) (test rxxk=041) Large Negative UROBILINOGEN UA (BEAKER) (test ifqd=544) 0.2 mg/dL 0.2-1.0 RBC UA (BEAKER) (test sozd=640) 26 /HPF WBC UA (BEAKER) (test zyzs=754) > /HPF SQUAMOUS EPITHELIAL (BEAKER) (test prpd=739) 17 /HPF SOURCE(BEAKER) (test kzdb=0349) Urine, Voided POCT-GLUCOSE [id number] 08:34:00 Test Item Value Reference Range Comments POC-GLUCOSE METER (BEAKER) 154 mg/dL 70-110 TESTED AT [address] (test rssq=9989) [place] [address] BASIC METABOLIC [id number] 07:34:00 Test Item Value Reference Range Comments SODIUM (BEAKER) (test 138 meq/L 136-145 kxik=070) POTASSIUM (BEAKER) (test 4.0 meq/L 3.5-5.1 geiy=611) CHLORIDE (BEAKER) (test 105 meq/L 98-107 idsb=687) CO2 (BEAKER) (test 24 meq/L 22-29 gkcy=637) BLOOD UREA NITROGEN 18 mg/dL 7-21 (BEAKER) (test xunt=589) CREATININE (BEAKER) (test 2.27 mg/dL 0.57-1.25 crrd=587) GLUCOSE RANDOM (BEAKER) 125 mg/dL 70-105 (test oluo=533) CALCIUM (BEAKER) (test 9.1 mg/dL 8.4-10.2 kjqe=008) EGFR (BEAKER) (test 22 mL/min/1.73 sq m ESTIMATED GFR IS NOT ghic=8825) ACCURATE CREATININE CLEARANCE IN PREDICTING GLOMERULAR FILTRATION RATE. ESTIMATED GFR IS NOT APPLICABLE FOR DIALYSIS PATIENTS. [id number] 07:32:00 Test Item Value Reference Range Comments PHOSPHORUS (BEAKER) (test zfjx=734) 3.1 mg/dL 2.3-4.7 [id number] 07:32:00 Test Item Value Reference Range Comments MAGNESIUM (BEAKER) (test ugzm=298) 1.6 mg/dL 1.6-2.6 CBC W/PLT COUNT & AUTO [id number] 05:48:00 Test Item Value Reference Range Comments WHITE BLOOD CELL COUNT (BEAKER) (test mjsw=957) 13.5 K/ L 3.5-10.5 RED BLOOD CELL COUNT (BEAKER) (test ursi=351) 3.79 M/ L 3.93-5.22 HEMOGLOBIN (BEAKER) (test fuvb=836) 10.6 GM/DL 11.2-15.7 HEMATOCRIT (BEAKER) (test ageb=810) 33.0 % 34.1-44.9 MEAN CORPUSCULAR VOLUME (BEAKER) (test kbfq=516) 87.1 fL 79.4-94.8 MEAN CORPUSCULAR HEMOGLOBIN (BEAKER) (test 28.0 pg 25.6-32.2 snmn=699) MEAN CORPUSCULAR HEMOGLOBIN CONC (BEAKER) (test 32.1 GM/DL 32.2-35.5 wfnl=832) RED CELL DISTRIBUTION WIDTH (BEAKER) (test 14.7 % 11.7-14.4 zwmx=134) PLATELET COUNT (BEAKER) (test sain=309) 268 K/CU MM 150-450 MEAN PLATELET VOLUME (BEAKER) (test qrag=717) 9.0 fL 9.4-12.3 NUCLEATED RED BLOOD CELLS (BEAKER) (test 0 /100 WBC 0-0 ftku=676) NEUTROPHILS RELATIVE PERCENT (BEAKER) (test 77 % zwei=213) LYMPHOCYTES RELATIVE PERCENT (BEAKER) (test 9 % njzx=714) MONOCYTES RELATIVE PERCENT (BEAKER) (test 10 % blyb=364) EOSINOPHILS RELATIVE PERCENT (BEAKER) (test 2 % haas=352) BASOPHILS RELATIVE PERCENT (BEAKER) (test 0 % mwij=040) NEUTROPHILS ABSOLUTE COUNT (BEAKER) (test 10.36 K/ L 1.56-6.13 insn=147) LYMPHOCYTES ABSOLUTE COUNT (BEAKER) (test 1.25 K/ L 1.18-3.74 oxrx=443) MONOCYTES ABSOLUTE COUNT (BEAKER) (test 1.36 K/ L 0.24-0.36 ztyy=292) EOSINOPHILS ABSOLUTE COUNT (BEAKER) (test 0.25 K/ L 0.04-0.36 fjnm=319) BASOPHILS ABSOLUTE COUNT (BEAKER) (test 0.05 K/ L 0.01-0.08 nhrk=081) IMMATURE GRANULOCYTES-RELATIVE PERCENT (BEAKER) 2 % 0-1 (test vzdw=5107) POCT-GLUCOSE [id number] 22:24:00 Test Item Value Reference Range Comments POC-GLUCOSE METER (BEAKER) 119 mg/dL 70-110 TESTED AT [address] (test kllf=7642) [place] [address] POCT-GLUCOSE [id number] 17:09:00 Test Item Value Reference Range Comments POC-GLUCOSE METER (BEAKER) 110 mg/dL 70-110 TESTED AT [address] (test kevx=8263) [place] [address] BLOOD [id number] 17:00:00 Test Item Value Reference Range Comments CULTURE (BEAKER) (test bccq=4254) No growth in 5 days BLOOD [id number] 17:00:00 Test Item Value Reference Range Comments CULTURE (BEAKER) (test zowv=8038) No growth in 5 days POCT-GLUCOSE [id number] 11:34:00 Test Item Value Reference Range Comments POC-GLUCOSE METER (BEAKER) 202 mg/dL 70-110 TESTED AT [facility] [address] [facility] (test zmdt=4334) [place] [address] POCT-GLUCOSE [id number] 07:55:00 Test Item Value Reference Range Comments POC-GLUCOSE METER (BEAKER) 147 mg/dL 70-110 TESTED AT [address] (test xkgd=3844) [place] [id number] BASIC METABOLIC [id number] 05:37:00 Test Item Value Reference Range Comments SODIUM (BEAKER) (test 136 meq/L 136-145 qntk=814) POTASSIUM (BEAKER) (test 3.7 meq/L 3.5-5.1 xziv=728) CHLORIDE (BEAKER) (test 105 meq/L 98-107 zbbb=945) CO2 (BEAKER) (test 21 meq/L 22-29 caij=996) BLOOD UREA NITROGEN 18 mg/dL 7-21 (BEAKER) (test nwsm=930) CREATININE (BEAKER) (test 2.23 mg/dL 0.57-1.25 oqmk=318) GLUCOSE RANDOM (BEAKER) 133 mg/dL 70-105 (test ukxl=283) CALCIUM (BEAKER) (test 8.9 mg/dL 8.4-10.2 hxbj=683) EGFR (BEAKER) (test 23 mL/min/1.73 sq m ESTIMATED GFR IS NOT jiag=8042) ACCURATE CREATININE CLEARANCE IN PREDICTING GLOMERULAR FILTRATION RATE. ESTIMATED GFR IS NOT APPLICABLE FOR DIALYSIS PATIENTS. [id number] 05:35:00 Test Item Value Reference Range Comments PHOSPHORUS (BEAKER) (test txzc=486) 2.8 mg/dL 2.3-4.7 [id number] 05:35:00 Test Item Value Reference Range Comments MAGNESIUM (BEAKER) (test edcm=398) 1.6 mg/dL 1.6-2.6 CBC W/PLT COUNT & AUTO [id number] 05:12:00 Test Item Value Reference Range Comments WHITE BLOOD CELL COUNT (BEAKER) (test pxnv=597) 14.0 K/ L 3.5-10.5 RED BLOOD CELL COUNT (BEAKER) (test bzvx=596) 3.79 M/ L 3.93-5.22 HEMOGLOBIN (BEAKER) (test xtcc=489) 10.5 GM/DL 11.2-15.7 HEMATOCRIT (BEAKER) (test dnjg=768) 32.4 % 34.1-44.9 MEAN CORPUSCULAR VOLUME (BEAKER) (test wjax=940) 85.5 fL 79.4-94.8 MEAN CORPUSCULAR HEMOGLOBIN (BEAKER) (test 27.7 pg 25.6-32.2 vmlt=586) MEAN CORPUSCULAR HEMOGLOBIN CONC (BEAKER) (test 32.4 GM/DL 32.2-35.5 pddm=517) RED CELL DISTRIBUTION WIDTH (BEAKER) (test 14.7 % 11.7-14.4 wqvp=484) PLATELET COUNT (BEAKER) (test hmdp=337) 240 K/CU MM 150-450 MEAN PLATELET VOLUME (BEAKER) (test cify=663) 9.0 fL 9.4-12.3 NUCLEATED RED BLOOD CELLS (BEAKER) (test 0 /100 WBC 0-0 rvpm=193) NEUTROPHILS RELATIVE PERCENT (BEAKER) (test 70 % caqm=913) LYMPHOCYTES RELATIVE PERCENT (BEAKER) (test 12 % ifam=130) MONOCYTES RELATIVE PERCENT (BEAKER) (test 12 % phrj=071) EOSINOPHILS RELATIVE PERCENT (BEAKER) (test 3 % anvz=316) BASOPHILS RELATIVE PERCENT (BEAKER) (test 0 % howx=367) NEUTROPHILS ABSOLUTE COUNT (BEAKER) (test 9.78 K/ L 1.56-6.13 uiyq=017) LYMPHOCYTES ABSOLUTE COUNT (BEAKER) (test 1.72 K/ L 1.18-3.74 rhql=176) MONOCYTES ABSOLUTE COUNT (BEAKER) (test 1.73 K/ L 0.24-0.36 tvus=583) EOSINOPHILS ABSOLUTE COUNT (BEAKER) (test 0.41 K/ L 0.04-0.36 tune=183) BASOPHILS ABSOLUTE COUNT (BEAKER) (test 0.06 K/ L 0.01-0.08 hvhk=093) IMMATURE GRANULOCYTES-RELATIVE PERCENT (BEAKER) 2 % 0-1 (test zqiv=1821) POCT-GLUCOSE [id number] 22:02:00 Test Item Value Reference Range Comments POC-GLUCOSE METER (BEAKER) 107 mg/dL 70-110 TESTED AT [address] (test dpsl=1628) [facility] [address] [address], [id number] 20:36:00FINAL REPORT CT of the abdomen and [...] Verified Date/Time: 06/22/2017 20:36: 43 Reading Location: [facility] [id number] Consult Reading Room POCT-GLUCOSE [id number] 16:27:00 Test Item Value Reference Range Comments POC-GLUCOSE METER (BEAKER) 136 mg/dL 70-110 TESTED AT [address] (test czyb=5559) [facility] [address] POCT-GLUCOSE [id number] 12:07:00 Test Item Value Reference Range Comments POC-GLUCOSE METER (BEAKER) 150 mg/dL 70-110 TESTED AT [address] (test dzoc=1025) [place] [id number] POCT-GLUCOSE [id number] 07:45:00 Test Item Value Reference Range Comments POC-GLUCOSE METER (BEAKER) 201 mg/dL 70-110 TESTED AT [address] (test wqbe=3452) [facility] [address] BASIC METABOLIC [id number] 05:21:00 Test Item Value Reference Range Comments SODIUM (BEAKER) (test 134 meq/L 136-145 nurg=318) POTASSIUM (BEAKER) (test 4.0 meq/L 3.5-5.1 Specimen slightly ngzm=456) hemolyzed CHLORIDE (BEAKER) (test 103 meq/L 98-107 ebpt=545) CO2 (BEAKER) (test 23 meq/L 22-29 jagt=021) BLOOD UREA NITROGEN 18 mg/dL 7-21 (BEAKER) (test opdl=279) CREATININE (BEAKER) (test 2.31 mg/dL 0.57-1.25 Specimen slightly ytoz=393) hemolyzed GLUCOSE RANDOM (BEAKER) 140 mg/dL 70-105 (test xqlg=690) CALCIUM (BEAKER) (test 8.8 mg/dL 8.4-10.2 fzpo=824) EGFR (BEAKER) (test 22 mL/min/1.73 sq m ESTIMATED GFR IS NOT wssx=4406) ACCURATE CREATININE CLEARANCE IN PREDICTING GLOMERULAR FILTRATION RATE. ESTIMATED GFR IS NOT APPLICABLE FOR DIALYSIS PATIENTS. [id number] 05:09:00 Test Item Value Reference Range Comments MAGNESIUM (BEAKER) (test 1.5 mg/dL 1.6-2.6 Specimen slightly hemolyzed iuai=410) [id number] 05:09:00 Test Item Value Reference Range Comments PHOSPHORUS (BEAKER) (test 2.8 mg/dL 2.3-4.7 Specimen slightly hemolyzed rxjz=252) CBC W/PLT COUNT & AUTO [id number] 04:32:00 Test Item Value Reference Range Comments WHITE BLOOD CELL COUNT (BEAKER) (test gjid=216) 16.5 K/ L 3.5-10.5 RED BLOOD CELL COUNT (BEAKER) (test caum=337) 3.71 M/ L 3.93-5.22 HEMOGLOBIN (BEAKER) (test ftur=206) 10.4 GM/DL 11.2-15.7 HEMATOCRIT (BEAKER) (test fzkt=186) 31.6 % 34.1-44.9 MEAN CORPUSCULAR VOLUME (BEAKER) (test zqcu=709) 85.2 fL 79.4-94.8 MEAN CORPUSCULAR HEMOGLOBIN (BEAKER) (test 28.0 pg 25.6-32.2 kblb=756) MEAN CORPUSCULAR HEMOGLOBIN CONC (BEAKER) (test 32.9 GM/DL 32.2-35.5 ndwg=742) RED CELL DISTRIBUTION WIDTH (BEAKER) (test 14.6 % 11.7-14.4 smos=669) PLATELET COUNT (BEAKER) (test edqi=813) 208 K/CU MM 150-450 MEAN PLATELET VOLUME (BEAKER) (test ilnt=674) 9.0 fL 9.4-12.3 NUCLEATED RED BLOOD CELLS (BEAKER) (test 0 /100 WBC 0-0 dtcq=665) NEUTROPHILS RELATIVE PERCENT (BEAKER) (test 70 % qdsd=590) LYMPHOCYTES RELATIVE PERCENT (BEAKER) (test 10 % ankd=510) MONOCYTES RELATIVE PERCENT (BEAKER) (test 16 % xkee=288) EOSINOPHILS RELATIVE PERCENT (BEAKER) (test 2 % rsbd=893) BASOPHILS RELATIVE PERCENT (BEAKER) (test 0 % otzb=504) NEUTROPHILS ABSOLUTE COUNT (BEAKER) (test 11.58 K/ L 1.56-6.13 jmqm=778) LYMPHOCYTES ABSOLUTE COUNT (BEAKER) (test 1.72 K/ L 1.18-3.74 ypge=572) MONOCYTES ABSOLUTE COUNT (BEAKER) (test 2.67 K/ L 0.24-0.36 goae=706) EOSINOPHILS ABSOLUTE COUNT (BEAKER) (test 0.29 K/ L 0.04-0.36 yfbi=592) BASOPHILS ABSOLUTE COUNT (BEAKER) (test 0.05 K/ L 0.01-0.08 ocwl=818) IMMATURE GRANULOCYTES-RELATIVE PERCENT (BEAKER) 1 % 0-1 (test aeqp=6395) POCT-GLUCOSE [id number] 21:34:00 Test Item Value Reference Range Comments POC-GLUCOSE METER (BEAKER) 104 mg/dL 70-110 TESTED AT [address] (test cbsq=4734) [place] [id number] POCT-GLUCOSE [id number] 17:16:00 Test Item Value Reference Range Comments POC-GLUCOSE METER (BEAKER) 262 mg/dL 70-110 TESTED AT [address] (test xexk=9005) [place] [address] URINE [id number] 11:56:00 Test Item Value Reference Range Comments CULTURE (BEAKER) (test 50-59,000 col/mL Beronica zmmb=9243) glabrata 10-19,000 col/ml skin floraPOCT-GLUCOSE [id number] 11:29:00 Test Item Value Reference Range Comments POC-GLUCOSE METER (BEAKER) 148 mg/dL 70-110 TESTED AT [address] (test rjql=7406) [place] [address] POCT-GLUCOSE [id number] 08:58:00 Test Item Value Reference Range Comments POC-GLUCOSE METER (BEAKER) 141 mg/dL 70-110 TESTED AT [address] (test upce=5551) [place] [address] BASIC METABOLIC [id number] 05:45:00 Test Item Value Reference Range Comments SODIUM (BEAKER) (test 132 meq/L 136-145 ahin=630) POTASSIUM (BEAKER) (test 3.8 meq/L 3.5-5.1 poiv=196) CHLORIDE (BEAKER) (test 102 meq/L 98-107 lkit=115) CO2 (BEAKER) (test 20 meq/L 22-29 hrkf=301) BLOOD UREA NITROGEN 18 mg/dL 7-21 (BEAKER) (test rcos=712) CREATININE (BEAKER) (test 2.00 mg/dL 0.57-1.25 hxzl=834) GLUCOSE RANDOM (BEAKER) 130 mg/dL 70-105 (test blrh=632) CALCIUM (BEAKER) (test 9.0 mg/dL 8.4-10.2 rerj=054) EGFR (BEAKER) (test 26 mL/min/1.73 sq m ESTIMATED GFR IS NOT cizd=6688) ACCURATE CREATININE CLEARANCE IN PREDICTING GLOMERULAR FILTRATION RATE. ESTIMATED GFR IS NOT APPLICABLE FOR DIALYSIS PATIENTS. [id number] 05:30:00 Test Item Value Reference Range Comments PHOSPHORUS (BEAKER) (test dokq=293) 2.8 mg/dL 2.3-4.7 [id number] 05:30:00 Test Item Value Reference Range Comments MAGNESIUM (BEAKER) (test beet=347) 1.6 mg/dL 1.6-2.6 CBC W/PLT COUNT & AUTO [id number] 05:07:00 Test Item Value Reference Range Comments WHITE BLOOD CELL COUNT (BEAKER) (test sdxi=545) 12.1 K/ L 3.5-10.5 RED BLOOD CELL COUNT (BEAKER) (test bvis=610) 3.84 M/ L 3.93-5.22 HEMOGLOBIN (BEAKER) (test qjna=901) 10.7 GM/DL 11.2-15.7 HEMATOCRIT (BEAKER) (test tioi=445) 34.9 % 34.1-44.9 MEAN CORPUSCULAR VOLUME (BEAKER) (test qctd=518) 90.9 fL 79.4-94.8 MEAN CORPUSCULAR HEMOGLOBIN (BEAKER) (test 27.9 pg 25.6-32.2 wauc=812) MEAN CORPUSCULAR HEMOGLOBIN CONC (BEAKER) (test 30.7 GM/DL 32.2-35.5 glrc=341) RED CELL DISTRIBUTION WIDTH (BEAKER) (test 14.5 % 11.7-14.4 ygro=119) PLATELET COUNT (BEAKER) (test rusq=393) 167 K/CU MM 150-450 MEAN PLATELET VOLUME (BEAKER) (test flez=462) 9.8 fL 9.4-12.3 NUCLEATED RED BLOOD CELLS (BEAKER) (test 0 /100 WBC 0-0 ztpj=133) NEUTROPHILS RELATIVE PERCENT (BEAKER) (test 74 % shne=547) LYMPHOCYTES RELATIVE PERCENT (BEAKER) (test 10 % gsen=005) MONOCYTES RELATIVE PERCENT (BEAKER) (test 14 % qafu=631) EOSINOPHILS RELATIVE PERCENT (BEAKER) (test 2 % hixb=408) BASOPHILS RELATIVE PERCENT (BEAKER) (test 0 % mjwg=351) NEUTROPHILS ABSOLUTE COUNT (BEAKER) (test 8.95 K/ L 1.56-6.13 vfxn=444) LYMPHOCYTES ABSOLUTE COUNT (BEAKER) (test 1.20 K/ L 1.18-3.74 gkrg=018) MONOCYTES ABSOLUTE COUNT (BEAKER) (test 1.69 K/ L 0.24-0.36 vxba=456) EOSINOPHILS ABSOLUTE COUNT (BEAKER) (test 0.18 K/ L 0.04-0.36 bbxm=209) BASOPHILS ABSOLUTE COUNT (BEAKER) (test 0.03 K/ L 0.01-0.08 ilax=204) IMMATURE GRANULOCYTES-RELATIVE PERCENT (BEAKER) 1 % 0-1 (test nphe=3381) POCT-GLUCOSE [id number] 21:04:00 Test Item Value Reference Range Comments POC-GLUCOSE METER (BEAKER) 139 mg/dL 70-110 TESTED AT [address] (test sclf=6612) [place] [id number] POCT-GLUCOSE [id number] 17:13:00 Test Item Value Reference Range Comments POC-GLUCOSE METER (BEAKER) 127 mg/dL 70-110 TESTED AT [address] (test cgcg=1952) [place] [id number] POCT-GLUCOSE [id number] 11:25:00 Test Item Value Reference Range Comments POC-GLUCOSE METER (BEAKER) 124 mg/dL 70-110 TESTED AT [address] (test nlss=1453) [place] [id number] POCT-GLUCOSE [id number] 07:28:00 Test Item Value Reference Range Comments POC-GLUCOSE METER (BEAKER) 137 mg/dL 70-110 TESTED AT [address] (test denh=4680) [place] [address] [id number] 06:43:00 Test Item Value Reference Range Comments PHOSPHORUS (BEAKER) (test euhj=606) 2.9 mg/dL 2.3-4.7 [id number] 06:43:00 Test Item Value Reference Range Comments MAGNESIUM (BEAKER) (test tqig=484) 1.6 mg/dL 1.6-2.6 BASIC METABOLIC [id number] 06:43:00 Test Item Value Reference Range Comments SODIUM (BEAKER) (test 137 meq/L 136-145 ofwj=501) POTASSIUM (BEAKER) (test 3.8 meq/L 3.5-5.1 sihn=064) CHLORIDE (BEAKER) (test 105 meq/L 98-107 znpe=925) CO2 (BEAKER) (test 22 meq/L 22-29 ehcz=926) BLOOD UREA NITROGEN 16 mg/dL 7-21 (BEAKER) (test cwss=395) CREATININE (BEAKER) (test 1.46 mg/dL 0.57-1.25 cbyg=366) GLUCOSE RANDOM (BEAKER) 125 mg/dL 70-105 (test vodo=042) CALCIUM (BEAKER) (test 8.8 mg/dL 8.4-10.2 mruf=918) EGFR (BEAKER) (test 37 mL/min/1.73 sq m ESTIMATED GFR IS NOT nufw=4642) ACCURATE CREATININE CLEARANCE IN PREDICTING GLOMERULAR FILTRATION RATE. ESTIMATED GFR IS NOT APPLICABLE FOR DIALYSIS PATIENTS. CBC W/PLT COUNT & AUTO [id number] 05:55:00 Test Item Value Reference Range Comments WHITE BLOOD CELL COUNT (BEAKER) (test zjsp=774) 10.7 K/ L 3.5-10.5 RED BLOOD CELL COUNT (BEAKER) (test hcdx=142) 3.84 M/ L 3.93-5.22 HEMOGLOBIN (BEAKER) (test xvbt=960) 10.7 GM/DL 11.2-15.7 HEMATOCRIT (BEAKER) (test ahwu=178) 33.0 % 34.1-44.9 MEAN CORPUSCULAR VOLUME (BEAKER) (test rggj=802) 85.9 fL 79.4-94.8 MEAN CORPUSCULAR HEMOGLOBIN (BEAKER) (test 27.9 pg 25.6-32.2 uoyr=436) MEAN CORPUSCULAR HEMOGLOBIN CONC (BEAKER) (test 32.4 GM/DL 32.2-35.5 vgjo=955) RED CELL DISTRIBUTION WIDTH (BEAKER) (test 14.4 % 11.7-14.4 zfvq=967) PLATELET COUNT (BEAKER) (test ilkh=039) 172 K/CU MM 150-450 MEAN PLATELET VOLUME (BEAKER) (test cpgz=000) 9.2 fL 9.4-12.3 NUCLEATED RED BLOOD CELLS (BEAKER) (test 0 /100 WBC 0-0 boyf=810) NEUTROPHILS RELATIVE PERCENT (BEAKER) (test 69 % cbob=969) LYMPHOCYTES RELATIVE PERCENT (BEAKER) (test 14 % clzg=846) MONOCYTES RELATIVE PERCENT (BEAKER) (test 14 % ozzl=460) EOSINOPHILS RELATIVE PERCENT (BEAKER) (test 2 % fjzp=356) BASOPHILS RELATIVE PERCENT (BEAKER) (test 0 % xqcy=286) NEUTROPHILS ABSOLUTE COUNT (BEAKER) (test 7.32 K/ L 1.56-6.13 rbdl=674) LYMPHOCYTES ABSOLUTE COUNT (BEAKER) (test 1.50 K/ L 1.18-3.74 dhcz=074) MONOCYTES ABSOLUTE COUNT (BEAKER) (test 1.46 K/ L 0.24-0.36 iywf=266) EOSINOPHILS ABSOLUTE COUNT (BEAKER) (test 0.26 K/ L 0.04-0.36 hrwy=691) BASOPHILS ABSOLUTE COUNT (BEAKER) (test 0.03 K/ L 0.01-0.08 rkmv=195) IMMATURE GRANULOCYTES-RELATIVE PERCENT (BEAKER) 1 % 0-1 (test wyyq=4041) POCT-GLUCOSE [id number] 21:37:00 Test Item Value Reference Range Comments POC-GLUCOSE METER (BEAKER) 143 mg/dL 70-110 TESTED AT [address] (test fxxa=2595) [facility] [address] POCT-GLUCOSE [id number] 18:04:00 Test Item Value Reference Range Comments POC-GLUCOSE METER (BEAKER) 143 mg/dL 70-110 TESTED AT [address] (test enax=4922) [facility] [address] VANCOMYCIN LEVEL, [id number] 15:00:00 Test Item Value Reference Range Comments VANCOMYCIN TROUGH (BEAKER) (test okjz=456) 9.0 ug/mL 10.0-20.0 Please hold next vanc dose until vanc trough results.TISSUE [id number] 14:20 :00Surgical Pathology Report Case: [id number] Authorizing Provider: Jag Escalera MD Collected: 06/13/2017 1118 Ordering Location: [facility] PERIOPERATIVE Received: 06/14/2017 0753 SERVICES Pathologist: Aquilino Diaz MD Specimen: SoftTissue, Other, right upj segment RENAL PELVIS, RIGHT URETEROPELVIC JUNCTION, BIOPSY:- HAPHAZARD ARRANGEMENT OF SMOOTH MUSCLE BUNDLES WITH JENNIFER-MUSCULAR FIBROSIS, CONSISTENT WITH URETEROPELVIC JUNCTION OBSTRUCTION- NEGATIVE FOR DYSPLASIA OR MALIGNANCYSigning Pathologist Direct Phone Line: [phone] signed by Aquilino Diaz MD on 06/19/2017 at 2:20 [id number] obstructionRight UPJ segmentReceived fresh labeled "right UPJ segment" are two irregular pink-camacho to mary-white rubbery fragments of soft tissue measuring 1.5 x1.0 x 0.2 cm in aggregate. Sectioning reveals no discrete masses. The specimen is entirely submittedin cassette A1. DB/plPerformed.POCT-GLUCOSE [id number] 13:48:00 Test Item Value Reference Range Comments POC-GLUCOSE METER (BEAKER) 156 mg/dL 70-110 TESTED AT [address] (test qljc=1359) [place] [address] RAD, CHEST, 2 [id number] 10:31:00Reason for exam:->feverFINAL REPORT Chest x-ray, PA [...] Monsonort Verified Date/Time: 06/19/2017 10:31:11 Reading Location: [facility] Radiology Reading Room POCT-GLUCOSE [id number] 07 :32:00 Test Item Value Reference Range Comments POC-GLUCOSE METER (BEAKER) 163 mg/dL 70-110 TESTED AT [address] (test yqde=0150) [place] [address] [id number] 06:28:00 Test Item Value Reference Range Comments PHOSPHORUS (BEAKER) (test yyaj=071) 4.0 mg/dL 2.3-4.7 [id number] 06:28:00 Test Item Value Reference Range Comments MAGNESIUM (BEAKER) (test yeyt=680) 1.9 mg/dL 1.6-2.6 BASIC METABOLIC [id number] 06:28:00 Test Item Value Reference Range Comments SODIUM (BEAKER) (test 134 meq/L 136-145 ukfq=448) POTASSIUM (BEAKER) (test 4.2 meq/L 3.5-5.1 gayw=981) CHLORIDE (BEAKER) (test 102 meq/L 98-107 cugm=405) CO2 (BEAKER) (test 24 meq/L 22-29 ohav=009) BLOOD UREA NITROGEN 17 mg/dL 7-21 (BEAKER) (test kkvo=650) CREATININE (BEAKER) (test 1.70 mg/dL 0.57-1.25 vmcu=084) GLUCOSE RANDOM (BEAKER) 158 mg/dL 70-105 (test rjlr=131) CALCIUM (BEAKER) (test 8.9 mg/dL 8.4-10.2 gtqb=805) EGFR (BEAKER) (test 31 mL/min/1.73 sq m ESTIMATED GFR IS NOT tgan=2316) ACCURATE CREATININE CLEARANCE IN PREDICTING GLOMERULAR FILTRATION RATE. ESTIMATED GFR IS NOT APPLICABLE FOR DIALYSIS PATIENTS. CBC W/PLT COUNT & AUTO [id number] 06:27:00 Test Item Value Reference Range Comments WHITE BLOOD CELL COUNT (BEAKER) (test uvsi=585) 13.6 K/ L 3.5-10.5 RED BLOOD CELL COUNT (BEAKER) (test wcvg=960) 4.09 M/ L 3.93-5.22 HEMOGLOBIN (BEAKER) (test wzev=375) 11.3 GM/DL 11.2-15.7 HEMATOCRIT (BEAKER) (test dkxy=740) 35.3 % 34.1-44.9 MEAN CORPUSCULAR VOLUME (BEAKER) (test xnco=362) 86.3 fL 79.4-94.8 MEAN CORPUSCULAR HEMOGLOBIN (BEAKER) (test 27.6 pg 25.6-32.2 cutq=614) MEAN CORPUSCULAR HEMOGLOBIN CONC (BEAKER) (test 32.0 GM/DL 32.2-35.5 dbii=845) RED CELL DISTRIBUTION WIDTH (BEAKER) (test 14.5 % 11.7-14.4 pxte=578) PLATELET COUNT (BEAKER) (test cetp=090) 218 K/CU MM 150-450 MEAN PLATELET VOLUME (BEAKER) (test cyni=996) 9.1 fL 9.4-12.3 NUCLEATED RED BLOOD CELLS (BEAKER) (test 0 /100 WBC 0-0 ocoo=237) NEUTROPHILS RELATIVE PERCENT (BEAKER) (test 82 % vwvo=935) LYMPHOCYTES RELATIVE PERCENT (BEAKER) (test 7 % lwkz=624) MONOCYTES RELATIVE PERCENT (BEAKER) (test 10 % vton=273) EOSINOPHILS RELATIVE PERCENT (BEAKER) (test 1 % eotq=954) BASOPHILS RELATIVE PERCENT (BEAKER) (test 0 % iegm=601) NEUTROPHILS ABSOLUTE COUNT (BEAKER) (test 11.10 K/ L 1.56-6.13 jwjy=320) LYMPHOCYTES ABSOLUTE COUNT (BEAKER) (test 0.92 K/ L 1.18-3.74 ckdk=986) MONOCYTES ABSOLUTE COUNT (BEAKER) (test 1.30 K/ L 0.24-0.36 aqrp=671) EOSINOPHILS ABSOLUTE COUNT (BEAKER) (test 0.07 K/ L 0.04-0.36 peqc=443) BASOPHILS ABSOLUTE COUNT (BEAKER) (test 0.03 K/ L 0.01-0.08 wayt=678) IMMATURE GRANULOCYTES-RELATIVE PERCENT (BEAKER) 1 % 0-1 (test xqmc=4465) POCT-GLUCOSE [id number] 21:24:00 Test Item Value Reference Range Comments POC-GLUCOSE METER (BEAKER) 172 mg/dL 70-110 TESTED AT [address] (test ogsj=8628) [facility] [address] POCT-GLUCOSE [id number] 17:00:00 Test Item Value Reference Range Comments POC-GLUCOSE METER (BEAKER) 164 mg/dL 70-110 TESTED AT [address] (test meyk=8019) [facility] [address] POCT-GLUCOSE [id number] 13:16:00 Test Item Value Reference Range Comments POC-GLUCOSE METER (BEAKER) 168 mg/dL 70-110 TESTED AT [address] (test dkrf=2404) [facility] [address] POCT-GLUCOSE [id number] 07:26:00 Test Item Value Reference Range Comments POC-GLUCOSE METER (BEAKER) 164 mg/dL 70-110 TESTED AT [facility] [address] (test iveq=1900) [facility] [address] BASIC METABOLIC [id number] 05:05:00 Test Item Value Reference Range Comments SODIUM (BEAKER) (test 134 meq/L 136-145 nejp=294) POTASSIUM (BEAKER) (test 4.9 meq/L 3.5-5.1 gvep=885) CHLORIDE (BEAKER) (test 102 meq/L 98-107 riyw=656) CO2 (BEAKER) (test 22 meq/L 22-29 djds=131) BLOOD UREA NITROGEN 18 mg/dL 7-21 (BEAKER) (test rcyy=360) CREATININE (BEAKER) (test 1.42 mg/dL 0.57-1.25 frwr=737) GLUCOSE RANDOM (BEAKER) 179 mg/dL 70-105 (test tdcg=125) CALCIUM (BEAKER) (test 9.3 mg/dL 8.4-10.2 ihqr=438) EGFR (BEAKER) (test 38 mL/min/1.73 sq m ESTIMATED GFR IS NOT sumt=5416) ACCURATE CREATININE CLEARANCE IN PREDICTING GLOMERULAR FILTRATION RATE. ESTIMATED GFR IS NOT APPLICABLE FOR DIALYSIS PATIENTS. [id number] 05:04:00 Test Item Value Reference Range Comments PHOSPHORUS (BEAKER) (test xmpj=088) 4.8 mg/dL 2.3-4.7 [id number] 05:04:00 Test Item Value Reference Range Comments MAGNESIUM (BEAKER) (test hifg=204) 1.6 mg/dL 1.6-2.6 CBC W/PLT COUNT & AUTO [id number] 03:57:00 Test Item Value Reference Range Comments WHITE BLOOD CELL COUNT (BEAKER) (test qjlw=344) 15.5 K/ L 3.5-10.5 RED BLOOD CELL COUNT (BEAKER) (test rjet=121) 4.45 M/ L 3.93-5.22 HEMOGLOBIN (BEAKER) (test fjct=421) 12.2 GM/DL 11.2-15.7 HEMATOCRIT (BEAKER) (test xlsx=983) 38.2 % 34.1-44.9 MEAN CORPUSCULAR VOLUME (BEAKER) (test suqf=896) 85.8 fL 79.4-94.8 MEAN CORPUSCULAR HEMOGLOBIN (BEAKER) (test 27.4 pg 25.6-32.2 ggik=896) MEAN CORPUSCULAR HEMOGLOBIN CONC (BEAKER) (test 31.9 GM/DL 32.2-35.5 xxxc=022) RED CELL DISTRIBUTION WIDTH (BEAKER) (test 14.5 % 11.7-14.4 igfn=412) PLATELET COUNT (BEAKER) (test cofc=022) 269 K/CU MM 150-450 MEAN PLATELET VOLUME (BEAKER) (test awoa=263) 9.1 fL 9.4-12.3 NUCLEATED RED BLOOD CELLS (BEAKER) (test 0 /100 WBC 0-0 tmsx=681) NEUTROPHILS RELATIVE PERCENT (BEAKER) (test 76 % drjr=237) LYMPHOCYTES RELATIVE PERCENT (BEAKER) (test 13 % frvg=281) MONOCYTES RELATIVE PERCENT (BEAKER) (test 9 % bfuv=099) EOSINOPHILS RELATIVE PERCENT (BEAKER) (test 1 % jcma=702) BASOPHILS RELATIVE PERCENT (BEAKER) (test 0 % zoyw=306) NEUTROPHILS ABSOLUTE COUNT (BEAKER) (test 11.79 K/ L 1.56-6.13 hfbg=888) LYMPHOCYTES ABSOLUTE COUNT (BEAKER) (test 2.02 K/ L 1.18-3.74 pcqk=406) MONOCYTES ABSOLUTE COUNT (BEAKER) (test 1.35 K/ L 0.24-0.36 zpgp=338) EOSINOPHILS ABSOLUTE COUNT (BEAKER) (test 0.21 K/ L 0.04-0.36 csrj=518) BASOPHILS ABSOLUTE COUNT (BEAKER) (test 0.04 K/ L 0.01-0.08 yzbi=879) IMMATURE GRANULOCYTES-RELATIVE PERCENT (BEAKER) 1 % 0-1 (test lsmf=3340) CT, [id number] 20:27:00Reason for exam:->flank pain s/p pyeloplastyFINAL REPORT [...] MDReport Verified Date/Time: 06/17/2017 20:27:27 Reading Location: [address] Reading Room CBC ( HEMOGRAM ONLY)2017-06-17 20:19:00 Test Item Value Reference Range Comments WHITE BLOOD CELL COUNT (BEAKER) (test 16.5 K/ L 4.0-10.0 umhd=028) RED BLOOD CELL COUNT (BEAKER) (test 4.75 M/ L 4.00-5.00 sdiz=066) HEMOGLOBIN (BEAKER) (test nxlb=761) 13.6 GM/DL 12.0-15.0 HEMATOCRIT (BEAKER) (test aazq=357) 40.9 % 36.0-45.0 MEAN CORPUSCULAR VOLUME (BEAKER) (test 86.1 fL 82.0-99.0 xnlz=451) MEAN CORPUSCULAR HEMOGLOBIN (BEAKER) 28.6 pg 27.0-33.0 (test lwqa=479) MEAN CORPUSCULAR HEMOGLOBIN CONC 33.3 GM/DL 32.0-36.0 (BEAKER) (test rpop=235) RED CELL DISTRIBUTION WIDTH (BEAKER) % 10.3-14.2 TEST NOT PERFORMED (test rrwl=745) PLATELET COUNT (BEAKER) (test 321 K/CU MM 150-430 okyg=078) BASIC METABOLIC [id number] 20:18:00 Test Item Value Reference Range Comments SODIUM (BEAKER) (test 136 meq/L 135-148 smxp=541) POTASSIUM (BEAKER) (test 3.9 meq/L 3.6-5.5 jrhw=726) CHLORIDE (BEAKER) (test 98 meq/L 98-106 cubj=071) CO2 (BEAKER) (test 26 meq/L 24-32 ihyd=625) BLOOD UREA NITROGEN 15 mg/dL 10-26 (BEAKER) (test vwjo=310) CREATININE (BEAKER) (test 1.30 mg/dL 0.50-1.20 tskk=599) GLUCOSE RANDOM (BEAKER) 155 mg/dL 70-110 (test txjk=817) CALCIUM (BEAKER) (test 9.9 mg/dL 8.5-10.5 mbir=281) EGFR (BEAKER) (test 42 mL/min/1.73 sq m ESTIMATED GFR IS NOT azkn=8883) ACCURATE CREATININE CLEARANCE IN PREDICTING GLOMERULAR FILTRATION RATE. ESTIMATED GFR IS NOT APPLICABLE FOR DIALYSIS PATIENTS. POCT-GLUCOSE [id number] 12:06:00 Test Item Value Reference Range Comments POC-GLUCOSE METER (BEAKER) 160 mg/dL 70-110 TESTED AT [address] (test aolw=9659) [facility] [address] POCT-GLUCOSE [id number] 07:33:00 Test Item Value Reference Range Comments POC-GLUCOSE METER (BEAKER) 246 mg/dL 70-110 TESTED AT [address] (test bymm=4966) [facility] [address] POCT-GLUCOSE [id number] 22:02:00 Test Item Value Reference Range Comments POC-GLUCOSE METER (BEAKER) 206 mg/dL 70-110 TESTED AT [address] (test thbg=2329) [place] [address] POCT-GLUCOSE [id number] 17:55:00 Test Item Value Reference Range Comments POC-GLUCOSE METER (BEAKER) 265 mg/dL 70-110 TESTED AT [place] [id number] [facility] (test lcas=5499) [place] [id number] POCT-GLUCOSE [id number] 08:39:00 Test Item Value Reference Range Comments POC-GLUCOSE METER (BEAKER) 189 mg/dL 70-110 TESTED AT [address] (test gxzf=8087) [place] [address] POCT-GLUCOSE [id number] 07:44:00 Test Item Value Reference Range Comments POC-GLUCOSE METER (BEAKER) 173 mg/dL 70-110 TESTED AT [address] (test ueks=6278) [place] [id number] BASIC METABOLIC [id number] 06:49:00 Test Item Value Reference Range Comments SODIUM (BEAKER) (test 138 meq/L 136-145 czvr=710) POTASSIUM (BEAKER) (test 4.1 meq/L 3.5-5.1 zwta=923) CHLORIDE (BEAKER) (test 106 meq/L 98-107 nfjc=250) CO2 (BEAKER) (test 24 meq/L 22-29 dhxt=965) BLOOD UREA NITROGEN 15 mg/dL 7-21 (BEAKER) (test jaah=019) CREATININE (BEAKER) (test 0.75 mg/dL 0.57-1.25 owxb=277) GLUCOSE RANDOM (BEAKER) 166 mg/dL 70-105 (test phnr=858) CALCIUM (BEAKER) (test 8.8 mg/dL 8.4-10.2 nprx=499) EGFR (BEAKER) (test 80 mL/min/1.73 sq m ESTIMATED GFR IS NOT aqgl=0727) ACCURATE CREATININE CLEARANCE IN PREDICTING GLOMERULAR FILTRATION RATE. ESTIMATED GFR IS NOT APPLICABLE FOR DIALYSIS PATIENTS. HEMOGLOBIN AND [id number] 06:28:00 Test Item Value Reference Range Comments HEMOGLOBIN (BEAKER) (test bqnj=450) 12.3 GM/DL 11.2-15.7 HEMATOCRIT (BEAKER) (test uuht=567) 38.8 % 34.1-44.9 BASIC METABOLIC [id number] 11:05:00 Test Item Value Reference Range Comments SODIUM (BEAKER) (test 139 meq/L 136-145 fraw=439) POTASSIUM (BEAKER) (test 4.2 meq/L 3.5-5.1 Specimen slightly jxko=394) hemolyzed CHLORIDE (BEAKER) (test 107 meq/L 98-107 kviw=959) CO2 (BEAKER) (test 24 meq/L 22-29 ckbj=779) BLOOD UREA NITROGEN 19 mg/dL 7-21 (BEAKER) (test wgad=627) CREATININE (BEAKER) (test 0.81 mg/dL 0.57-1.25 Specimen slightly zbkr=576) hemolyzed GLUCOSE RANDOM (BEAKER) 205 mg/dL 70-105 (test shbk=287) CALCIUM (BEAKER) (test 9.3 mg/dL 8.4-10.2 sflc=549) EGFR (BEAKER) (test 73 mL/min/1.73 sq m ESTIMATED GFR IS NOT uiun=0383) ACCURATE CREATININE CLEARANCE IN PREDICTING GLOMERULAR FILTRATION RATE. ESTIMATED GFR IS NOT APPLICABLE FOR DIALYSIS PATIENTS. HEMOGLOBIN AND [id number] 10:48:00 Test Item Value Reference Range Comments HEMOGLOBIN (BEAKER) (test zbsn=012) 13.4 GM/DL 11.2-15.7 HEMATOCRIT (BEAKER) (test gqbe=754) 41.7 % 34.1-44.9 POCT-GLUCOSE [id number] 10:25:00 Test Item Value Reference Range Comments POC-GLUCOSE METER (BEAKER) 216 mg/dL 70-110 TESTED AT [facility] [address] [facility] (test bbrq=2073) [facility] [address] TISSUE [id number] 12:11:00Surgical Pathology Report Case: [id number] Authorizing Provider: Jessica Ivory MD Collected: 05/02/2017 1147 Ordering Location: [facility] Endoscopy Received: 05/02/2017 1533 Services Pathologist: Tung Connor MD Specimens: A) - Polyp, Colon - Right/Ascending B) -Polyp, Colon - Rectum A. COLON, RIGHT /ASCENDING POLYP, BIOPSY: - FRAGMENT OF TUBULAR ADENOMA (x1) - SEPARATE FRAGMENTS OF UNREMARKABLE COLONIC MUCOSAB. RECTUM, POLYP, BIOPSY: - FRAGMENTS OF HYPERPLASTIC POLYP (x3) Signing PathologistDirect Phone Line: [phone] signed by Tung Connor MD on 05/03/2017 at 12:11 [id number], large intestine without perforation or abscess without [...] camacho tissue, submitted B1. CG/pl Performed.URINALYSIS W/ [id number] 14:08:00 Test Item Value Reference Range Comments COLOR (BEAKER) (test vudb=843) Yellow CLARITY (BEAKER) (test vtal=152) Hazy SPECIFIC GRAVITY UA (BEAKER) (test mxrb=516) 1.015 1.001-1.035 PH UA (BEAKER) (test xirx=169) 5.5 5.0-8.0 PROTEIN UA (BEAKER) (test ctgk=774) 10 mg/dL Negative GLUCOSE UA (BEAKER) (test bsng=717) Negative Negative KETONES UA (BEAKER) (test imns=970) Negative Negative BILIRUBIN UA (BEAKER) (test qeuh=834) Negative Negative BLOOD UA (BEAKER) (test hhoz=608) Moderate Negative NITRITE UA (BEAKER) (test inmh=000) Negative Negative LEUKOCYTE ESTERASE UA (BEAKER) (test vytz=013) Large Negative UROBILINOGEN UA (BEAKER) (test jack=725) 0.2 mg/dL 0.2-1.0 RBC UA (BEAKER) (test itli=742) 46 /HPF WBC UA (BEAKER) (test zhgg=739) 53 /HPF BACTERIA (BEAKER) (test xsbn=441) Rare MUCUS (BEAKER) (test eibx=3510) Rare SQUAMOUS EPITHELIAL (BEAKER) (test zdpv=665) 1 /HPF HYALINE CASTS (BEAKER) (test ujtj=313) 2 /LPF SOURCE(BEAKER) (test tplb=7639) BASIC METABOLIC [id number] 12:36:00 Test Item Value Reference Range Comments SODIUM (BEAKER) (test 140 meq/L 136-145 rslh=240) POTASSIUM (BEAKER) (test 4.0 meq/L 3.5-5.1 eguy=409) CHLORIDE (BEAKER) (test 106 meq/L 98-107 doje=822) CO2 (BEAKER) (test 24 meq/L 22-29 qfzt=088) BLOOD UREA NITROGEN 16 mg/dL 7-21 (BEAKER) (test xdfw=980) CREATININE (BEAKER) (test 0.81 mg/dL 0.57-1.25 vmow=694) GLUCOSE RANDOM (BEAKER) 146 mg/dL 70-105 (test msup=941) CALCIUM (BEAKER) (test 9.8 mg/dL 8.4-10.2 slyh=960) EGFR (BEAKER) (test 73 mL/min/1.73 sq m ESTIMATED GFR IS NOT prar=7091) ACCURATE CREATININE CLEARANCE IN PREDICTING GLOMERULAR FILTRATION RATE. ESTIMATED GFR IS NOT APPLICABLE FOR DIALYSIS PATIENTS. [id number] 11:58:00 Test Item Value Reference Range Comments PARTIAL THROMBOPLASTIN TIME (BEAKER) (test 35.7 seconds 22.5-36.0 ywxn=850) PROTHROMBIN TIME/[id number] 11:57:00 Test Item Value Reference Range Comments PROTIME (BEAKER) (test jsua=899) 13.6 seconds 11.7-14.7 INR (BEAKER) (test rukj=483) 1.1 <=5.9 RECOMMENDED COUMADIN/WARFARIN INR THERAPY RANGESSTANDARD DOSE: 2.0 - 3.0 Includes: PROPHYLAXIS forvenous thrombosis, systemic embolization; TREATMENT for venous thrombosis and/or pulmonary embolus.HIGH RISK: Target INR is 2.5-3.5 for patients with mechanical heart valves.CBC W/PLT COUNT & AUTO [id number] 11:50:00 Test Item Value Reference Range Comments WHITE BLOOD CELL COUNT (BEAKER) (test spkc=920) 8.0 K/ L 3.5-10.5 RED BLOOD CELL COUNT (BEAKER) (test rzob=051) 5.04 M/ L 3.93-5.22 HEMOGLOBIN (BEAKER) (test tzos=881) 13.8 GM/DL 11.2-15.7 HEMATOCRIT (BEAKER) (test jrmd=938) 43.3 % 34.1-44.9 MEAN CORPUSCULAR VOLUME (BEAKER) (test lptg=947) 85.9 fL 79.4-94.8 MEAN CORPUSCULAR HEMOGLOBIN (BEAKER) (test 27.4 pg 25.6-32.2 pnzp=647) MEAN CORPUSCULAR HEMOGLOBIN CONC (BEAKER) (test 31.9 GM/DL 32.2-35.5 rmcm=405) RED CELL DISTRIBUTION WIDTH (BEAKER) (test 15.3 % 11.7-14.4 rihz=753) PLATELET COUNT (BEAKER) (test kqtr=605) 305 K/CU MM 150-450 MEAN PLATELET VOLUME (BEAKER) (test gbnw=134) 9.0 fL 9.4-12.3 NUCLEATED RED BLOOD CELLS (BEAKER) (test 0 /100 WBC 0-0 orhe=431) NEUTROPHILS RELATIVE PERCENT (BEAKER) (test 57 % akur=930) LYMPHOCYTES RELATIVE PERCENT (BEAKER) (test 33 % svyk=773) MONOCYTES RELATIVE PERCENT (BEAKER) (test 7 % elqk=624) EOSINOPHILS RELATIVE PERCENT (BEAKER) (test 2 % fdjz=775) BASOPHILS RELATIVE PERCENT (BEAKER) (test 1 % fjjt=422) NEUTROPHILS ABSOLUTE COUNT (BEAKER) (test 4.54 K/ L 1.56-6.13 pmcq=907) LYMPHOCYTES ABSOLUTE COUNT (BEAKER) (test 2.63 K/ L 1.18-3.74 zvwq=549) MONOCYTES ABSOLUTE COUNT (BEAKER) (test 0.52 K/ L 0.24-0.36 sbcc=660) EOSINOPHILS ABSOLUTE COUNT (BEAKER) (test 0.18 K/ L 0.04-0.36 apex=600) BASOPHILS ABSOLUTE COUNT (BEAKER) (test 0.07 K/ L 0.01-0.08 mwdb=274) IMMATURE GRANULOCYTES-RELATIVE PERCENT (BEAKER) 1 % 0-1 (test kyla=2095) POCT-GLUCOSE [id number] 17:46:00 Test Item Value Reference Range Comments POC-GLUCOSE METER (BEAKER) 201 mg/dL 70-110 TESTED AT [address] (test cznt=8282) [facility] [address] POCT-GLUCOSE [id number] 14:15:00 Test Item Value Reference Range Comments POC-GLUCOSE METER (BEAKER) 152 mg/dL 70-110 TESTED AT [address] (test ufie=0191) [facility] [address] POCT-GLUCOSE [id number] 08:21:00 Test Item Value Reference Range Comments POC-GLUCOSE METER (BEAKER) 149 mg/dL 70-110 TESTED AT [address] (test pwrl=8129) [facility] [address] POCT-GLUCOSE [id number] 21:11:00 Test Item Value Reference Range Comments POC-GLUCOSE METER (BEAKER) 201 mg/dL 70-110 TESTED AT [address] (test izdl=9262) [place] [id number] POCT-GLUCOSE [id number] 18:48:00 Test Item Value Reference Range Comments POC-GLUCOSE METER (BEAKER) 188 mg/dL 70-110 TESTED AT [address] (test mvgo=6224) [place] [id number] POCT-GLUCOSE [id number] 13:32:00 Test Item Value Reference Range Comments POC-GLUCOSE METER (BEAKER) 151 mg/dL 70-110 TESTED AT [address] (test timk=0238) [facility] [address] POCT-GLUCOSE [id number] 08:31:00 Test Item Value Reference Range Comments POC-GLUCOSE METER (BEAKER) 149 mg/dL 70-110 TESTED AT [address] (test tmrl=9053) [facility] [address] BASIC METABOLIC [id number] 07:11:00 Test Item Value Reference Range Comments SODIUM (BEAKER) (test 138 meq/L 136-145 erha=333) POTASSIUM (BEAKER) (test 3.5 meq/L 3.5-5.1 iasa=781) CHLORIDE (BEAKER) (test 103 meq/L 98-107 prtl=939) CO2 (BEAKER) (test 24 meq/L 22-29 pphx=915) BLOOD UREA NITROGEN 8 mg/dL 7-21 (BEAKER) (test tuzk=684) CREATININE (BEAKER) (test 0.90 mg/dL 0.57-1.25 gipe=484) GLUCOSE RANDOM (BEAKER) 153 mg/dL 70-105 (test ehfg=459) CALCIUM (BEAKER) (test 9.7 mg/dL 8.4-10.2 dqxf=286) EGFR (BEAKER) (test 65 mL/min/1.73 sq m ESTIMATED GFR IS NOT deyv=6491) ACCURATE CREATININE CLEARANCE IN PREDICTING GLOMERULAR FILTRATION RATE. ESTIMATED GFR IS NOT APPLICABLE FOR DIALYSIS PATIENTS. CBC W/PLT COUNT & AUTO [id number] 06:53:00 Test Item Value Reference Range Comments WHITE BLOOD CELL COUNT (BEAKER) (test uyff=494) 9.1 K/ L 3.5-10.5 RED BLOOD CELL COUNT (BEAKER) (test wtiz=947) 4.17 M/ L 3.93-5.22 HEMOGLOBIN (BEAKER) (test zrit=413) 11.5 GM/DL 11.2-15.7 HEMATOCRIT (BEAKER) (test sgcz=792) 36.1 % 34.1-44.9 MEAN CORPUSCULAR VOLUME (BEAKER) (test zaev=100) 86.6 fL 79.4-94.8 MEAN CORPUSCULAR HEMOGLOBIN (BEAKER) (test 27.6 pg 25.6-32.2 qzlo=099) MEAN CORPUSCULAR HEMOGLOBIN CONC (BEAKER) (test 31.9 GM/DL 32.2-35.5 wrnv=182) RED CELL DISTRIBUTION WIDTH (BEAKER) (test 13.9 % 11.7-14.4 wuwa=684) PLATELET COUNT (BEAKER) (test vuhq=075) 389 K/CU MM 150-450 MEAN PLATELET VOLUME (BEAKER) (test lody=177) 8.8 fL 9.4-12.3 NUCLEATED RED BLOOD CELLS (BEAKER) (test 0 /100 WBC 0-0 ebhp=159) NEUTROPHILS RELATIVE PERCENT (BEAKER) (test 60 % plzn=667) LYMPHOCYTES RELATIVE PERCENT (BEAKER) (test 22 % tlyy=197) MONOCYTES RELATIVE PERCENT (BEAKER) (test 12 % hlmf=642) EOSINOPHILS RELATIVE PERCENT (BEAKER) (test 3 % xjww=892) BASOPHILS RELATIVE PERCENT (BEAKER) (test 1 % xefa=148) NEUTROPHILS ABSOLUTE COUNT (BEAKER) (test 5.46 K/ L 1.56-6.13 zkaf=059) LYMPHOCYTES ABSOLUTE COUNT (BEAKER) (test 2.04 K/ L 1.18-3.74 ujll=873) MONOCYTES ABSOLUTE COUNT (BEAKER) (test 1.09 K/ L 0.24-0.36 tdcm=141) EOSINOPHILS ABSOLUTE COUNT (BEAKER) (test 0.29 K/ L 0.04-0.36 dioi=705) BASOPHILS ABSOLUTE COUNT (BEAKER) (test 0.06 K/ L 0.01-0.08 nlxj=475) IMMATURE GRANULOCYTES-RELATIVE PERCENT (BEAKER) 2 % 0-1 (test hjft=9522) POCT-GLUCOSE [id number] 21:07:00 Test Item Value Reference Range Comments POC-GLUCOSE METER (BEAKER) 224 mg/dL 70-110 TESTED AT [address] (test ozmo=9530) [facility] [address] POCT-GLUCOSE [id number] 17:14:00 Test Item Value Reference Range Comments POC-GLUCOSE METER (BEAKER) 121 mg/dL 70-110 TESTED AT [address] (test ihjc=6997) [facility] [address] POCT-GLUCOSE [id number] 11:03:00 Test Item Value Reference Range Comments POC-GLUCOSE METER (BEAKER) 161 mg/dL 70-110 TESTED AT [address] (test vdml=7571) [facility] [address] POCT-GLUCOSE [id number] 07:24:00 Test Item Value Reference Range Comments POC-GLUCOSE METER (BEAKER) 191 mg/dL 70-110 TESTED AT [address] (test ksag=6319) [facility] [address] BASIC METABOLIC [id number] 04:45:00 Test Item Value Reference Range Comments SODIUM (BEAKER) (test 137 meq/L 136-145 ayua=894) POTASSIUM (BEAKER) (test 3.3 meq/L 3.5-5.1 bedc=136) CHLORIDE (BEAKER) (test 102 meq/L 98-107 nmkk=803) CO2 (BEAKER) (test 24 meq/L 22-29 ilmp=142) BLOOD UREA NITROGEN 8 mg/dL 7-21 (BEAKER) (test vona=325) CREATININE (BEAKER) (test 0.91 mg/dL 0.57-1.25 sgig=527) GLUCOSE RANDOM (BEAKER) 148 mg/dL 70-105 (test qfqi=100) CALCIUM (BEAKER) (test 9.5 mg/dL 8.4-10.2 stik=952) EGFR (BEAKER) (test 64 mL/min/1.73 sq m ESTIMATED GFR IS NOT toay=7330) ACCURATE CREATININE CLEARANCE IN PREDICTING GLOMERULAR FILTRATION RATE. ESTIMATED GFR IS NOT APPLICABLE FOR DIALYSIS PATIENTS. POCT-GLUCOSE [id number] 21:03:00 Test Item Value Reference Range Comments POC-GLUCOSE METER (BEAKER) 164 mg/dL 70-110 TESTED AT [address] (test yvfi=5856) [place] [address] BLOOD [id number] 18:00:00 Test Item Value Reference Range Comments CULTURE (BEAKER) (test hstm=4845) No growth in 5 days BLOOD [id number] 18:00:00 Test Item Value Reference Range Comments CULTURE (BEAKER) (test urkb=8422) No growth in 5 days POCT-GLUCOSE [id number] 17:18:00 Test Item Value Reference Range Comments POC-GLUCOSE METER (BEAKER) 154 mg/dL 70-110 TESTED AT [address] (test enwg=4565) [place] [address] POCT-GLUCOSE [id number] 11:29:00 Test Item Value Reference Range Comments POC-GLUCOSE METER (BEAKER) 117 mg/dL 70-110 TESTED AT [address] (test xbix=4294) [place] [address] URINE [id number] 09:54:00 Test Item Value Reference Range Comments CULTURE (BEAKER) (test glxg=6119) No growth POCT-GLUCOSE [id number] 07:34:00 Test Item Value Reference Range Comments POC-GLUCOSE METER (BEAKER) 120 mg/dL 70-110 TESTED AT [address] (test tjkw=9710) [place] [address] BASIC METABOLIC [id number] 05:18:00 Test Item Value Reference Range Comments SODIUM (BEAKER) (test 138 meq/L 136-145 hqgx=677) POTASSIUM (BEAKER) (test 3.9 meq/L 3.5-5.1 omga=949) CHLORIDE (BEAKER) (test 104 meq/L 98-107 iena=791) CO2 (BEAKER) (test 26 meq/L 22-29 iapj=220) BLOOD UREA NITROGEN 4 mg/dL 7-21 (BEAKER) (test chbs=230) CREATININE (BEAKER) (test 0.85 mg/dL 0.57-1.25 cfht=682) GLUCOSE RANDOM (BEAKER) 110 mg/dL 70-105 (test cgru=044) CALCIUM (BEAKER) (test 9.7 mg/dL 8.4-10.2 uwby=188) EGFR (BEAKER) (test 69 mL/min/1.73 sq m ESTIMATED GFR IS NOT puro=4208) ACCURATE CREATININE CLEARANCE IN PREDICTING GLOMERULAR FILTRATION RATE. ESTIMATED GFR IS NOT APPLICABLE FOR DIALYSIS PATIENTS. CBC W/PLT COUNT & AUTO [id number] 04:59:00 Test Item Value Reference Range Comments WHITE BLOOD CELL COUNT (BEAKER) (test nxim=395) 9.6 K/ L 3.5-10.5 RED BLOOD CELL COUNT (BEAKER) (test tajm=582) 3.96 M/ L 3.93-5.22 HEMOGLOBIN (BEAKER) (test hglo=693) 11.1 GM/DL 11.2-15.7 HEMATOCRIT (BEAKER) (test xmrj=259) 34.4 % 34.1-44.9 MEAN CORPUSCULAR VOLUME (BEAKER) (test edti=386) 86.9 fL 79.4-94.8 MEAN CORPUSCULAR HEMOGLOBIN (BEAKER) (test 28.0 pg 25.6-32.2 xsam=400) MEAN CORPUSCULAR HEMOGLOBIN CONC (BEAKER) (test 32.3 GM/DL 32.2-35.5 nldp=449) RED CELL DISTRIBUTION WIDTH (BEAKER) (test 13.5 % 11.7-14.4 bugx=573) PLATELET COUNT (BEAKER) (test faaq=903) 338 K/CU MM 150-450 MEAN PLATELET VOLUME (BEAKER) (test huyp=755) 8.6 fL 9.4-12.3 NUCLEATED RED BLOOD CELLS (BEAKER) (test 0 /100 WBC 0-0 klfp=381) NEUTROPHILS RELATIVE PERCENT (BEAKER) (test 62 % maci=036) LYMPHOCYTES RELATIVE PERCENT (BEAKER) (test 22 % ztnp=983) MONOCYTES RELATIVE PERCENT (BEAKER) (test 12 % wjxy=981) EOSINOPHILS RELATIVE PERCENT (BEAKER) (test 4 % srfl=654) BASOPHILS RELATIVE PERCENT (BEAKER) (test 1 % hfaw=719) NEUTROPHILS ABSOLUTE COUNT (BEAKER) (test 5.93 K/ L 1.56-6.13 wsmn=732) LYMPHOCYTES ABSOLUTE COUNT (BEAKER) (test 2.07 K/ L 1.18-3.74 iftp=805) MONOCYTES ABSOLUTE COUNT (BEAKER) (test 1.13 K/ L 0.24-0.36 vsku=974) EOSINOPHILS ABSOLUTE COUNT (BEAKER) (test 0.35 K/ L 0.04-0.36 jnku=150) BASOPHILS ABSOLUTE COUNT (BEAKER) (test 0.05 K/ L 0.01-0.08 ivgb=032) IMMATURE GRANULOCYTES-RELATIVE PERCENT (BEAKER) 1 % 0-1 (test qvqj=2541) POCT-GLUCOSE [id number] 21:33:00 Test Item Value Reference Range Comments POC-GLUCOSE METER (BEAKER) 114 mg/dL 70-110 TESTED AT [address] (test giuc=1562) [place] [id number] POCT-GLUCOSE [id number] 17:43:00 Test Item Value Reference Range Comments POC-GLUCOSE METER (BEAKER) 177 mg/dL 70-110 TESTED AT [address] (test vjlw=8152) [place] [id number] POCT-GLUCOSE [id number] 11:19:00 Test Item Value Reference Range Comments POC-GLUCOSE METER (BEAKER) 183 mg/dL 70-110 TESTED AT [address] (test iusx=4905) [place] [id number] POCT-GLUCOSE [id number] 07:56:00 Test Item Value Reference Range Comments POC-GLUCOSE METER (BEAKER) 131 mg/dL 70-110 TESTED AT [address] (test tggh=7803) [place] [id number] BASIC METABOLIC [id number] 07:52:00 Test Item Value Reference Range Comments SODIUM (BEAKER) (test 136 meq/L 136-145 qtyi=525) POTASSIUM (BEAKER) (test 3.9 meq/L 3.5-5.1 zlkw=501) CHLORIDE (BEAKER) (test 103 meq/L 98-107 qwve=799) CO2 (BEAKER) (test 24 meq/L 22-29 cajv=036) BLOOD UREA NITROGEN 7 mg/dL 7-21 (BEAKER) (test xvri=588) CREATININE (BEAKER) (test 0.87 mg/dL 0.57-1.25 ihzc=258) GLUCOSE RANDOM (BEAKER) 106 mg/dL 70-105 (test lqbs=395) CALCIUM (BEAKER) (test 9.1 mg/dL 8.4-10.2 smpp=935) EGFR (BEAKER) (test 67 mL/min/1.73 sq m ESTIMATED GFR IS NOT hqho=9788) ACCURATE CREATININE CLEARANCE IN PREDICTING GLOMERULAR FILTRATION RATE. ESTIMATED GFR IS NOT APPLICABLE FOR DIALYSIS PATIENTS. CBC W/PLT COUNT & AUTO [id number] 06:52:00 Test Item Value Reference Range Comments WHITE BLOOD CELL COUNT (BEAKER) (test pdeu=978) 11.7 K/ L 4.0-10.0 RED BLOOD CELL COUNT (BEAKER) (test ukix=698) 4.05 M/ L 4.00-5.00 HEMOGLOBIN (BEAKER) (test bdxf=371) 11.6 GM/DL 12.0-15.0 HEMATOCRIT (BEAKER) (test yizc=803) 36.4 % 36.0-45.0 MEAN CORPUSCULAR VOLUME (BEAKER) (test myqu=718) 90.0 fL 82.0-99.0 MEAN CORPUSCULAR HEMOGLOBIN (BEAKER) (test 28.7 pg 27.0-33.0 fqnl=640) MEAN CORPUSCULAR HEMOGLOBIN CONC (BEAKER) (test 31.9 GM/DL 32.0-36.0 dlsa=694) RED CELL DISTRIBUTION WIDTH (BEAKER) (test 12.8 % 10.3-14.2 bhsf=825) PLATELET COUNT (BEAKER) (test laha=368) 352 K/CU MM 150-430 MEAN PLATELET VOLUME (BEAKER) (test dckc=031) 6.1 fL 6.5-10.5 NUCLEATED RED BLOOD CELLS (BEAKER) (test 0 /100 WBC 0-0 zxth=444) NEUTROPHILS RELATIVE PERCENT (BEAKER) (test 66 % xhsk=925) LYMPHOCYTES RELATIVE PERCENT (BEAKER) (test 19 % tjlc=576) MONOCYTES RELATIVE PERCENT (BEAKER) (test 12 % vujk=023) EOSINOPHILS RELATIVE PERCENT (BEAKER) (test 3 % wzfp=051) BASOPHILS RELATIVE PERCENT (BEAKER) (test 0 % gksq=474) NEUTROPHILS ABSOLUTE COUNT (BEAKER) (test 7.73 K/ L 1.80-8.00 lqcr=564) LYMPHOCYTES ABSOLUTE COUNT (BEAKER) (test 2.22 K/ L 1.48-4.50 qijz=555) MONOCYTES ABSOLUTE COUNT (BEAKER) (test 1.35 K/ L 0.00-1.30 yuhj=255) EOSINOPHILS ABSOLUTE COUNT (BEAKER) (test 0.33 K/ L 0.00-0.50 xeam=338) BASOPHILS ABSOLUTE COUNT (BEAKER) (test 0.05 K/ L 0.00-0.20 ryeb=342) 0.00POCT-GLUCOSE [id number] 21:16:00 Test Item Value Reference Range Comments POC-GLUCOSE METER (BEAKER) 141 mg/dL 70-110 TESTED AT [address] (test omjx=6440) [place] [id number] POCT-GLUCOSE [id number] 17:41:00 Test Item Value Reference Range Comments POC-GLUCOSE METER (BEAKER) 154 mg/dL 70-110 TESTED AT [address] (test gfwu=4323) [place] [id number] URINALYSIS W/ [id number] 15:10:00 Test Item Value Reference Range Comments COLOR (BEAKER) (test wbae=389) Yellow CLARITY (BEAKER) (test jzcl=514) Clear SPECIFIC GRAVITY UA (BEAKER) (test 1.021 1.001-1.035 zgop=607) PH UA (BEAKER) (test izrx=852) 6.0 5.0-8.0 PROTEIN UA (BEAKER) (test azmj=573) 20 mg/dL Negative GLUCOSE UA (BEAKER) (test bozc=037) Negative Negative KETONES UA (BEAKER) (test uftl=371) Trace Negative BILIRUBIN UA (BEAKER) (test llby=025) Negative Negative BLOOD UA (BEAKER) (test urmx=305) Small Negative NITRITE UA (BEAKER) (test wvmf=142) Negative Negative LEUKOCYTE ESTERASE UA (BEAKER) (test Large Negative sjrd=202) UROBILINOGEN UA (BEAKER) (test kgmm=003) 0.2 mg/dL 0.2-1.0 RBC UA (BEAKER) (test jcll=338) 1 /HPF WBC UA (BEAKER) (test ksrt=941) 36 /HPF BACTERIA (BEAKER) (test nxry=314) Occasional MUCUS (BEAKER) (test beso=1984) Rare SQUAMOUS EPITHELIAL (BEAKER) (test 2 /HPF sbgg=425) SOURCE(BEAKER) (test zfpj=1125) Urine, Clean Catch POCT-GLUCOSE [id number] 12:04:00 Test Item Value Reference Range Comments POC-GLUCOSE METER (BEAKER) 171 mg/dL 70-110 TESTED AT [facility] [address] [facility] (test cnsj=4653) [place] [address] URINE [id number] 10:02:00 Test Item Value Reference Range Comments CULTURE (BEAKER) (test bxgr=2520) No growth POCT-GLUCOSE [id number] 08:15:00 Test Item Value Reference Range Comments POC-GLUCOSE METER (BEAKER) 118 mg/dL 70-110 TESTED AT [address] (test oadf=5336) [place] [address] BASIC METABOLIC [id number] 05:04:00 Test Item Value Reference Range Comments SODIUM (BEAKER) (test 137 meq/L 136-145 nejh=405) POTASSIUM (BEAKER) (test 3.3 meq/L 3.5-5.1 beoo=859) CHLORIDE (BEAKER) (test 107 meq/L 98-107 mxsa=366) CO2 (BEAKER) (test 22 meq/L 22-29 qepy=747) BLOOD UREA NITROGEN 7 mg/dL 7-21 (BEAKER) (test cgmq=712) CREATININE (BEAKER) (test 0.80 mg/dL 0.57-1.25 mlxr=251) GLUCOSE RANDOM (BEAKER) 122 mg/dL 70-105 (test wcle=074) CALCIUM (BEAKER) (test 8.0 mg/dL 8.4-10.2 nrgy=985) EGFR (BEAKER) (test 74 mL/min/1.73 sq m ESTIMATED GFR IS NOT jtxv=8649) ACCURATE CREATININE CLEARANCE IN PREDICTING GLOMERULAR FILTRATION RATE. ESTIMATED GFR IS NOT APPLICABLE FOR DIALYSIS PATIENTS. CBC W/PLT COUNT & AUTO [id number] 04:57:00 Test Item Value Reference Range Comments WHITE BLOOD CELL COUNT (BEAKER) (test jnxw=152) 12.3 K/ L 4.0-10.0 RED BLOOD CELL COUNT (BEAKER) (test bale=858) 3.77 M/ L 4.00-5.00 HEMOGLOBIN (BEAKER) (test sakj=455) 11.1 GM/DL 12.0-15.0 HEMATOCRIT (BEAKER) (test rclv=811) 33.7 % 36.0-45.0 MEAN CORPUSCULAR VOLUME (BEAKER) (test vmvb=113) 89.5 fL 82.0-99.0 MEAN CORPUSCULAR HEMOGLOBIN (BEAKER) (test 29.4 pg 27.0-33.0 vped=285) MEAN CORPUSCULAR HEMOGLOBIN CONC (BEAKER) (test 32.9 GM/DL 32.0-36.0 iqhx=077) RED CELL DISTRIBUTION WIDTH (BEAKER) (test 12.7 % 10.3-14.2 ojof=206) PLATELET COUNT (BEAKER) (test pvbb=831) 325 K/CU MM 150-430 MEAN PLATELET VOLUME (BEAKER) (test yvsd=574) 5.9 fL 6.5-10.5 NUCLEATED RED BLOOD CELLS (BEAKER) (test 0 /100 WBC 0-0 fkry=201) NEUTROPHILS RELATIVE PERCENT (BEAKER) (test 71 % zlyh=265) LYMPHOCYTES RELATIVE PERCENT (BEAKER) (test 16 % hrej=138) MONOCYTES RELATIVE PERCENT (BEAKER) (test 12 % tegc=439) EOSINOPHILS RELATIVE PERCENT (BEAKER) (test 1 % ftjz=976) BASOPHILS RELATIVE PERCENT (BEAKER) (test 0 % xljz=405) NEUTROPHILS ABSOLUTE COUNT (BEAKER) (test 8.72 K/ L 1.80-8.00 sbov=664) LYMPHOCYTES ABSOLUTE COUNT (BEAKER) (test 1.95 K/ L 1.48-4.50 fkwd=475) MONOCYTES ABSOLUTE COUNT (BEAKER) (test 1.48 K/ L 0.00-1.30 vexa=250) EOSINOPHILS ABSOLUTE COUNT (BEAKER) (test 0.15 K/ L 0.00-0.50 rrzc=725) BASOPHILS ABSOLUTE COUNT (BEAKER) (test 0.04 K/ L 0.00-0.20 rpgu=611) 0.00POCT-GLUCOSE [id number] 21:51:00 Test Item Value Reference Range Comments POC-GLUCOSE METER (BEAKER) 159 mg/dL 70-110 TESTED AT [facility] [address] [facility] (test kiyp=8577) [facility] [address] RAPID DRUG SCREEN, [id number] 21:21:00 Test Item Value Reference Range Comments BARBITURATE URINE (BEAKER) (test zyue=555) Negative Negative BENZODIAZEPINE SCREEN URINE (BEAKER) (test Positive Negative htro=258) COCAINE (METAB.) SCREEN (BEAKER) (test zeim=4160) Negative Negative METHADONE SCREEN (BEAKER) (test bqxx=8138) Negative Negative OPIATE SCREEN URINE (BEAKER) (test brrr=566) Positive Negative CANNABINOID SCREEN URINE (BEAKER) (test klzw=084) Negative Negative AMPH/METHAMPH SCREEN (BEAKER) (test rllp=1768) Negative Negative PHENCYCLIDINE SCREEN URINE (BEAKER) (test lriw=994) Negative Negative OXYCODONE SCREEN URINE (BEAKER) (test yxvt=5970) Negative Negative DRUG CUTOFF CONC.Cocaine 300 ng/mL Cannabinoid 50 ng/mL Benzodiazepine 200 ng/mLBarbiturate 200 ng/ mLPhencyclidine 25 ng/mLOpiate 300 ng/mLMethadone 300 ng/mLAmphetamine/ 1000 ng/mL MethamphetamineOxycodone 300 ng/mLThis assay provides an unconfirmed qualitative test result for the clinical management of patients in emergency situations. Chain of custody not maintained. Some nmrd-ilq-hooodqc medications, as well as adulterants, may cause inaccurate results. Clinical correlation should be applied. A more comprehensive drug screen or confirmation of a detected drug may be performed upon request.POCT-GLUCOSE [id number] 14:21:00 Test Item Value Reference Range Comments POC-GLUCOSE METER (BEAKER) 113 mg/dL 70-110 TESTED AT [address] (test idtq=3738) [place] [address] [id number] 10:15:00 Test Item Value Reference Range Comments RPR SCREEN (BEAKER) (test lyuf=127) Nonreactive Nonreactive URINE [id number] 09:21:00 Test Item Value Reference Range Comments CULTURE (BEAKER) (test ybdh=0590) >100,000 col/mL skin mckenna POCT-GLUCOSE [id number] 08:00:00 Test Item Value Reference Range Comments POC-GLUCOSE METER (BEAKER) 128 mg/dL 70-110 TESTED AT [address] (test cedu=4088) [place] [address] CBC (HEMOGRAM ONLY)[id number] 07:25:00 Test Item Value Reference Range Comments WHITE BLOOD CELL COUNT (BEAKER) (test hnae=978) 13.9 K/ L 4.0-10.0 RED BLOOD CELL COUNT (BEAKER) (test vtvw=061) 4.28 M/ L 4.00-5.00 HEMOGLOBIN (BEAKER) (test enpl=067) 12.1 GM/DL 12.0-15.0 HEMATOCRIT (BEAKER) (test kapj=107) 37.9 % 36.0-45.0 MEAN CORPUSCULAR VOLUME (BEAKER) (test edhn=932) 88.6 fL 82.0-99.0 MEAN CORPUSCULAR HEMOGLOBIN (BEAKER) (test 28.2 pg 27.0-33.0 qbkx=209) MEAN CORPUSCULAR HEMOGLOBIN CONC (BEAKER) (test 31.8 GM/DL 32.0-36.0 cfed=967) RED CELL DISTRIBUTION WIDTH (BEAKER) (test 12.7 % 10.3-14.2 ickc=933) PLATELET COUNT (BEAKER) (test gchq=922) 343 K/CU MM 150-430 MEAN PLATELET VOLUME (BEAKER) (test vauw=300) 6.0 fL 6.5-10.5 NUCLEATED RED BLOOD CELLS (BEAKER) (test 0 /100 WBC 0-0 fork=551) 0.00BASIC METABOLIC [id number] 07:02:00 Test Item Value Reference Range Comments SODIUM (BEAKER) (test 138 meq/L 136-145 mebq=793) POTASSIUM (BEAKER) (test 3.9 meq/L 3.5-5.1 ywlm=071) CHLORIDE (BEAKER) (test 104 meq/L 98-107 dpnd=425) CO2 (BEAKER) (test 25 meq/L 22-29 uetp=720) BLOOD UREA NITROGEN 7 mg/dL 7-21 (BEAKER) (test rbcs=344) CREATININE (BEAKER) (test 0.98 mg/dL 0.57-1.25 adfc=978) GLUCOSE RANDOM (BEAKER) 138 mg/dL 70-105 (test yjza=131) CALCIUM (BEAKER) (test 9.1 mg/dL 8.4-10.2 lcku=425) EGFR (BEAKER) (test 59 mL/min/1.73 sq m ESTIMATED GFR IS NOT nzlt=0314) ACCURATE CREATININE CLEARANCE IN PREDICTING GLOMERULAR FILTRATION RATE. ESTIMATED GFR IS NOT APPLICABLE FOR DIALYSIS PATIENTS. POCT-GLUCOSE [id number] 21:33:00 Test Item Value Reference Range Comments POC-GLUCOSE METER (BEAKER) 163 mg/dL 70-110 TESTED AT [address] (test xcrv=9509) [place] [id number] URINALYSIS W/ [id number] 18:19:00 Test Item Value Reference Range Comments COLOR (BEAKER) (test szhf=069) Light Yellow CLARITY (BEAKER) (test rhag=997) Clear SPECIFIC GRAVITY UA (BEAKER) (test 1.015 1.001-1.035 wawz=293) PH UA (BEAKER) (test mioi=952) 6.5 5.0-8.0 PROTEIN UA (BEAKER) (test qqyo=637) Negative Negative GLUCOSE UA (BEAKER) (test hnxf=966) Negative Negative KETONES UA (BEAKER) (test ddij=955) Negative Negative BILIRUBIN UA (BEAKER) (test Negative Negative tdvl=671) BLOOD UA (BEAKER) (test alkn=401) Negative Negative NITRITE UA (BEAKER) (test wizq=273) Negative Negative LEUKOCYTE ESTERASE UA (BEAKER) Negative Negative (test qhcs=116) UROBILINOGEN UA (BEAKER) (test 0.2 mg/dL 0.2-1.0 kqfq=725) RBC UA (BEAKER) (test jwax=951) 1 /HPF WBC UA (BEAKER) (test yhzj=594) 4 /HPF SOURCE(BEAKER) (test gwwk=4375) Urine, Straight Catheter POCT-GLUCOSE [id number] 16:40:00 Test Item Value Reference Range Comments POC-GLUCOSE METER (BEAKER) 120 mg/dL 70-110 TESTED AT [address] (test nunw=6540) [place] [id number] HEPATITIS PANEL, [id number] 10:25:00 Test Item Value Reference Range Comments HEPATITIS A IGM ANTIBODY (BEAKER) (test Nonreactive Nonreactive ourm=464) HEPATITIS B CORE IGM ANTIBODY (BEAKER) (test Nonreactive Nonreactive gpfk=996) HEPATITIS C ANTIBODY (BEAKER) (test xboj=406) Nonreactive Nonreactive HEPATITIS B SURFACE ANTIGEN (2) (BEAKER) (test Nonreactive Nonreactive yfmk=4568) HIV-1 ANTIGEN WITH HIV-1/2 [id number] 10:25:00 Test Item Value Reference Range Comments HIV-1 ANTIGEN WITH HIV 1\\T\\2 ANTIBODY (2) Nonreactive Nonreactive (BEAKER) (test ryrk=2259) BASIC METABOLIC [id number] 10:05:00 Test Item Value Reference Range Comments SODIUM (BEAKER) (test 137 meq/L 136-145 quop=304) POTASSIUM (BEAKER) (test 3.8 meq/L 3.5-5.1 ljhm=762) CHLORIDE (BEAKER) (test 102 meq/L 98-107 zlla=462) CO2 (BEAKER) (test 27 meq/L 22-29 ujcd=060) BLOOD UREA NITROGEN 9 mg/dL 7-21 (BEAKER) (test kyqi=851) CREATININE (BEAKER) (test 0.97 mg/dL 0.57-1.25 fsvt=132) GLUCOSE RANDOM (BEAKER) 126 mg/dL 70-105 (test eixu=817) CALCIUM (BEAKER) (test 9.2 mg/dL 8.4-10.2 hkjs=847) EGFR (BEAKER) (test 59 mL/min/1.73 sq m ESTIMATED GFR IS NOT nmcs=4899) ACCURATE CREATININE CLEARANCE IN PREDICTING GLOMERULAR FILTRATION RATE. ESTIMATED GFR IS NOT APPLICABLE FOR DIALYSIS PATIENTS. CBC W/PLT COUNT & AUTO [id number] 09:58:00 Test Item Value Reference Range Comments WHITE BLOOD CELL COUNT (BEAKER) (test hlil=739) 7.2 K/ L 4.0-10.0 RED BLOOD CELL COUNT (BEAKER) (test ecfl=440) 4.13 M/ L 4.00-5.00 HEMOGLOBIN (BEAKER) (test rvnx=936) 12.2 GM/DL 12.0-15.0 HEMATOCRIT (BEAKER) (test fkgr=218) 36.1 % 36.0-45.0 MEAN CORPUSCULAR VOLUME (BEAKER) (test bdie=230) 87.4 fL 82.0-99.0 MEAN CORPUSCULAR HEMOGLOBIN (BEAKER) (test 29.4 pg 27.0-33.0 qmep=484) MEAN CORPUSCULAR HEMOGLOBIN CONC (BEAKER) (test 33.7 GM/DL 32.0-36.0 yhle=442) RED CELL DISTRIBUTION WIDTH (BEAKER) (test 14.5 % 10.3-14.2 afmm=433) PLATELET COUNT (BEAKER) (test uuce=760) 336 K/CU MM 150-430 MEAN PLATELET VOLUME (BEAKER) (test qkmg=232) 6.2 fL 6.5-10.5 NUCLEATED RED BLOOD CELLS (BEAKER) (test 0 /100 WBC 0-0 zgig=423) NEUTROPHILS RELATIVE PERCENT (BEAKER) (test 61 % hgvk=354) LYMPHOCYTES RELATIVE PERCENT (BEAKER) (test 24 % ywkx=604) MONOCYTES RELATIVE PERCENT (BEAKER) (test 11 % ywwr=224) EOSINOPHILS RELATIVE PERCENT (BEAKER) (test 4 % jozh=477) BASOPHILS RELATIVE PERCENT (BEAKER) (test 1 % ehtf=306) NEUTROPHILS ABSOLUTE COUNT (BEAKER) (test 4.41 K/ L 1.80-8.00 iwic=623) LYMPHOCYTES ABSOLUTE COUNT (BEAKER) (test 1.69 K/ L 1.48-4.50 pojo=080) MONOCYTES ABSOLUTE COUNT (BEAKER) (test 0.77 K/ L 0.00-1.30 lbti=783) EOSINOPHILS ABSOLUTE COUNT (BEAKER) (test 0.27 K/ L 0.00-0.50 xdbl=532) BASOPHILS ABSOLUTE COUNT (BEAKER) (test 0.05 K/ L 0.00-0.20 livh=604) 0.00POCT-GLUCOSE [id number] 08:28:00 Test Item Value Reference Range Comments POC-GLUCOSE METER (BEAKER) 134 mg/dL 70-110 TESTED AT [address] (test wkty=6592) [place] [id number] POCT-GLUCOSE [id number] 21:33:00 Test Item Value Reference Range Comments POC-GLUCOSE METER (BEAKER) 142 mg/dL 70-110 TESTED AT [address] (test iqdr=0400) [place] [id number] URINALYSIS W/ [id number] 13:59:00 Test Item Value Reference Range Comments COLOR (BEAKER) (test vhle=025) Yellow CLARITY (BEAKER) (test dgne=536) Clear SPECIFIC GRAVITY UA (BEAKER) (test dlsu=930) 1.035 1.001-1.035 PH UA (BEAKER) (test vssv=761) 5.5 5.0-8.0 PROTEIN UA (BEAKER) (test ltxi=201) 20 mg/dL Negative GLUCOSE UA (BEAKER) (test owpt=143) Negative Negative KETONES UA (BEAKER) (test sefd=115) Negative Negative BILIRUBIN UA (BEAKER) (test ektn=124) Negative Negative BLOOD UA (BEAKER) (test bdzs=794) Small Negative NITRITE UA (BEAKER) (test serd=494) Negative Negative LEUKOCYTE ESTERASE UA (BEAKER) (test ejjb=573) Large Negative UROBILINOGEN UA (BEAKER) (test nmup=525) 0.2 mg/dL 0.2-1.0 RBC UA (BEAKER) (test lekp=865) < /HPF WBC UA (BEAKER) (test ppeo=611) 23 /HPF SQUAMOUS EPITHELIAL (BEAKER) (test zqsk=814) < /HPF SOURCE(BEAKER) (test tssl=8594) COMPREHENSIVE METABOLIC [id number] 12:59:00 Test Item Value Reference Range Comments TOTAL PROTEIN (BEAKER) 6.3 gm/dL 6.0-8.3 (test zdaw=692) ALBUMIN (BEAKER) (test 3.3 g/dL 3.5-5.0 coky=5073) ALKALINE PHOSPHATASE 62 U/L 40-150 (BEAKER) (test vxro=682) BILIRUBIN TOTAL (BEAKER) 0.2 mg/dL 0.2-1.2 (test qrwf=034) SODIUM (BEAKER) (test 136 meq/L 136-145 idjh=482) POTASSIUM (BEAKER) (test 3.9 meq/L 3.5-5.1 rawr=345) CHLORIDE (BEAKER) (test 103 meq/L 98-107 hpwz=182) CO2 (BEAKER) (test 24 meq/L 22-29 xfbt=062) BLOOD UREA NITROGEN 14 mg/dL 7-21 (BEAKER) (test dfbv=006) CREATININE (BEAKER) (test 0.81 mg/dL 0.57-1.25 awlx=389) GLUCOSE RANDOM (BEAKER) 111 mg/dL 70-105 (test nzfx=274) CALCIUM (BEAKER) (test 9.2 mg/dL 8.4-10.2 rxpd=698) AST (SGOT) (BEAKER) (test 19 U/L 5-34 dgyz=091) ALT (SGPT) (BEAKER) (test 14 U/L 6-55 prww=311) EGFR (BEAKER) (test 73 mL/min/1.73 sq m ESTIMATED GFR IS NOT afuy=1682) ACCURATE CREATININE CLEARANCE IN PREDICTING GLOMERULAR FILTRATION RATE. ESTIMATED GFR IS NOT APPLICABLE FOR DIALYSIS PATIENTS. [id number] 12:31:00 Test Item Value Reference Range Comments PROTIME (BEAKER) (test frtc=159) 13.7 seconds 11.7-14.7 INR (BEAKER) (test feuk=420) 1.1 <=5.9 PARTIAL THROMBOPLASTIN TIME (BEAKER) (test 35.2 seconds 22.5-36.0 qxdb=799) RECOMMENDED COUMADIN/WARFARIN INR THERAPY RANGESSTANDARD DOSE: 2.0 - 3.0 Includes: PROPHYLAXIS forvenous thrombosis, systemic embolization; TREATMENT for venous thrombosis and/or pulmonary embolus.HIGH RISK: Target INR is 2.5-3.5 for patients with mechanical heart valves.CBC W/PLT COUNT & AUTO [id number] 12:18:00 Test Item Value Reference Range Comments WHITE BLOOD CELL COUNT (BEAKER) (test aivp=423) 8.6 K/ L 4.0-10.0 RED BLOOD CELL COUNT (BEAKER) (test uuou=984) 4.17 M/ L 4.00-5.00 HEMOGLOBIN (BEAKER) (test gaul=556) 12.4 GM/DL 12.0-15.0 HEMATOCRIT (BEAKER) (test hvjn=086) 36.8 % 36.0-45.0 MEAN CORPUSCULAR VOLUME (BEAKER) (test unko=223) 88.3 fL 82.0-99.0 MEAN CORPUSCULAR HEMOGLOBIN (BEAKER) (test 29.8 pg 27.0-33.0 dsps=795) MEAN CORPUSCULAR HEMOGLOBIN CONC (BEAKER) (test 33.7 GM/DL 32.0-36.0 oqex=640) RED CELL DISTRIBUTION WIDTH (BEAKER) (test 14.4 % 10.3-14.2 ojlj=487) PLATELET COUNT (BEAKER) (test ajxe=551) 332 K/CU MM 150-430 MEAN PLATELET VOLUME (BEAKER) (test suyq=108) 6.3 fL 6.5-10.5 NUCLEATED RED BLOOD CELLS (BEAKER) (test 0 /100 WBC 0-0 cjxm=519) NEUTROPHILS RELATIVE PERCENT (BEAKER) (test 51 % riqv=956) LYMPHOCYTES RELATIVE PERCENT (BEAKER) (test 33 % fbkr=123) MONOCYTES RELATIVE PERCENT (BEAKER) (test 12 % ortz=338) EOSINOPHILS RELATIVE PERCENT (BEAKER) (test 3 % tjqe=307) BASOPHILS RELATIVE PERCENT (BEAKER) (test 1 % vzxl=086) NEUTROPHILS ABSOLUTE COUNT (BEAKER) (test 4.41 K/ L 1.80-8.00 yvet=858) LYMPHOCYTES ABSOLUTE COUNT (BEAKER) (test 2.80 K/ L 1.48-4.50 gdki=299) MONOCYTES ABSOLUTE COUNT (BEAKER) (test 1.00 K/ L 0.00-1.30 thga=046) EOSINOPHILS ABSOLUTE COUNT (BEAKER) (test 0.28 K/ L 0.00-0.50 opyr=117) BASOPHILS ABSOLUTE COUNT (BEAKER) (test 0.09 K/ L 0.00-0.20 ijxq=594) 0.00BLOOD [id number] 06:00:00 Test Item Value Reference Range Comments CULTURE (BEAKER) (test vdlk=7669) No growth in 5 days URINE [id number] 13:38:00 Test Item Value Reference Range Comments CULTURE (BEAKER) (test 50-59,000 col/mL Beronica dgbk=7266) albicans <10,000 col/mL Gram Negative byron<10,000 col/mL skin floraURINALYSIS W/ [id number] 03:34:00 Test Item Value Reference Range Comments COLOR (BEAKER) (test ondm=210) Yellow CLARITY (BEAKER) (test xxxy=009) Hazy SPECIFIC GRAVITY UA (BEAKER) (test tshc=556) 1.014 1.001-1.035 PH UA (BEAKER) (test shtp=070) 5.5 5.0-8.0 PROTEIN UA (BEAKER) (test snuw=095) 70 mg/dL Negative GLUCOSE UA (BEAKER) (test pfab=965) Negative Negative KETONES UA (BEAKER) (test lkwa=048) Negative Negative BILIRUBIN UA (BEAKER) (test rsgp=383) Negative Negative BLOOD UA (BEAKER) (test bdsf=649) Moderate Negative NITRITE UA (BEAKER) (test hogb=590) Negative Negative LEUKOCYTE ESTERASE UA (BEAKER) (test mdjc=336) Large Negative UROBILINOGEN UA (BEAKER) (test ixbu=153) 0.2 mg/dL 0.2-1.0 RBC UA (BEAKER) (test yxoy=344) 79 /HPF WBC UA (BEAKER) (test upqc=741) > /HPF MUCUS (BEAKER) (test nnft=2157) Rare SQUAMOUS EPITHELIAL (BEAKER) (test bblg=850) 2 /HPF SOURCE(BEAKER) (test blwo=0325) [id number] 02:16:00 Test Item Value Reference Range Comments LIPASE (BEAKER) (test quwp=602) 8 U/L 8-78 [id number] 02:16:00 Test Item Value Reference Range Comments AMYLASE (BEAKER) (test bdlo=545) 21 U/L 25-125 BASIC METABOLIC [id number] 02:16:00 Test Item Value Reference Range Comments SODIUM (BEAKER) (test 136 meq/L 136-145 ujcp=170) POTASSIUM (BEAKER) (test 4.3 meq/L 3.5-5.1 awsm=617) CHLORIDE (BEAKER) (test 101 meq/L 98-107 jclw=600) CO2 (BEAKER) (test 26 meq/L 22-29 kipf=422) BLOOD UREA NITROGEN 15 mg/dL 7-21 (BEAKER) (test incj=933) CREATININE (BEAKER) (test 0.85 mg/dL 0.57-1.25 tnwy=344) GLUCOSE RANDOM (BEAKER) 144 mg/dL 70-105 (test pazb=128) CALCIUM (BEAKER) (test 9.9 mg/dL 8.4-10.2 qwjv=489) EGFR (BEAKER) (test 69 mL/min/1.73 sq m ESTIMATED GFR IS NOT sqfw=6132) ACCURATE CREATININE CLEARANCE IN PREDICTING GLOMERULAR FILTRATION RATE. ESTIMATED GFR IS NOT APPLICABLE FOR DIALYSIS PATIENTS. HEPATIC FUNCTION [id number] 02:16:00 Test Item Value Reference Range Comments TOTAL PROTEIN (BEAKER) (test sruw=550) 7.3 gm/dL 6.0-8.3 ALBUMIN (BEAKER) (test zyoh=7662) 3.9 g/dL 3.5-5.0 BILIRUBIN TOTAL (BEAKER) (test fhsy=188) 0.4 mg/dL 0.2-1.2 BILIRUBIN DIRECT (BEAKER) (test ptig=224) 0.2 mg/dL 0.1-0.5 ALKALINE PHOSPHATASE (BEAKER) (test dhxs=531) 78 U/L 40-150 AST (SGOT) (BEAKER) (test eqct=618) 10 U/L 5-34 ALT (SGPT) (BEAKER) (test nxlg=770) 16 U/L 6-55 CBC W/PLT COUNT & AUTO [id number] 02:05:00 Test Item Value Reference Range Comments WHITE BLOOD CELL COUNT (BEAKER) (test pfml=407) 15.7 K/ L 4.0-10.0 RED BLOOD CELL COUNT (BEAKER) (test cqtu=399) 4.51 M/ L 4.00-5.00 HEMOGLOBIN (BEAKER) (test enyc=632) 13.1 GM/DL 12.0-15.0 HEMATOCRIT (BEAKER) (test laqr=373) 40.9 % 36.0-45.0 MEAN CORPUSCULAR VOLUME (BEAKER) (test coup=298) 90.9 fL 82.0-99.0 MEAN CORPUSCULAR HEMOGLOBIN (BEAKER) (test 29.1 pg 27.0-33.0 mzyz=143) MEAN CORPUSCULAR HEMOGLOBIN CONC (BEAKER) (test 32.1 GM/DL 32.0-36.0 tegr=615) RED CELL DISTRIBUTION WIDTH (BEAKER) (test 14.4 % 10.3-14.2 qlqz=379) PLATELET COUNT (BEAKER) (test dorx=219) 342 K/CU MM 150-430 MEAN PLATELET VOLUME (BEAKER) (test lxfs=109) 6.3 fL 6.5-10.5 NUCLEATED RED BLOOD CELLS (BEAKER) (test 0 /100 WBC 0-0 gthp=563) NEUTROPHILS RELATIVE PERCENT (BEAKER) (test 64 % munu=393) LYMPHOCYTES RELATIVE PERCENT (BEAKER) (test 24 % vbvl=327) MONOCYTES RELATIVE PERCENT (BEAKER) (test 9 % yqhx=950) EOSINOPHILS RELATIVE PERCENT (BEAKER) (test 3 % jqwa=142) BASOPHILS RELATIVE PERCENT (BEAKER) (test 1 % lkul=395) NEUTROPHILS ABSOLUTE COUNT (BEAKER) (test 9.98 K/ L 1.80-8.00 qyng=781) LYMPHOCYTES ABSOLUTE COUNT (BEAKER) (test 3.72 K/ L 1.48-4.50 inzw=393) MONOCYTES ABSOLUTE COUNT (BEAKER) (test 1.35 K/ L 0.00-1.30 wcyy=157) EOSINOPHILS ABSOLUTE COUNT (BEAKER) (test 0.48 K/ L 0.00-0.50 fvyd=495) BASOPHILS ABSOLUTE COUNT (BEAKER) (test 0.17 K/ L 0.00-0.20 xste=645) 0.00TISSUE [id number] 16:41:00Surgical Pathology Report Case: [id number] Authorizing Provider: Jag Escalera MD Collected: 01/23/2017 1827 Ordering Location: [facility] PERIOPER[facility] Received: 01/24/2017 0855 SERVICES Pathologist: Karma [...] cm. Thetissue is entirely submitted in A1. CG/ewPerformed.06873NLTYSLQUR [id number] 08:38: 00 Test Item Value Reference Range Comments CULTURE (BEAKER) (test sqcw=4271) No anaerobes isolated SURGICALLY OBTAINED CULTURE + GRAM [id number] 15:59:00 Test Item Value Reference Range Comments CULTURE (BEAKER) (test BERONICA ALBICANS 3+ Beronica albicans ctnd=8583) 5-Flurocytosine (test Susceptible 0-4 , geuu=182) Intermediate <0 or >4 , Resistant >16 Amphotericin B (test Susceptible >0-0 , No iflp=574) Interpretations Established <=0 or >0 Caspofungin acetate Susceptible 0-0.25 , Non (test qxcq=187) Fluconazole (test Susceptible 0-2 , Dose kefe=076) Dependent Susceptible <0 or >2 , Resi Itraconazole (test Susceptible 0-0.125 , Dose fnfl=114) Dependent Susceptible <0 or >.125 Micafungin (test Susceptible 0-0.25 , Non uvnl=209) Posaconazole (test Susceptible >0-0 , No wtxi=841) Interpretations Established <=0 or >0 Voriconazole (test Susceptible 0-0.12 , Dose rnvg=388) Dependent Susceptible <0 or >.12 , GRAM STAIN RESULT 4+ WBCs (BEAKER) (test isjj=1093) GRAM STAIN RESULT 1+ yeast (BEAKER) (test xibp=144843) POCT-GLUCOSE [id number] 13:12:00 Test Item Value Reference Range Comments POC-GLUCOSE METER (BEAKER) 116 mg/dL 70-110 TESTED AT [address] (test ooza=5778) [place] [id number] POCT-GLUCOSE [id number] 12:02:00 Test Item Value Reference Range Comments POC-GLUCOSE METER (BEAKER) 142 mg/dL 70-110 TESTED AT [address] (test tecd=7702) [place] [id number] POCT-GLUCOSE [id number] 08:20:00 Test Item Value Reference Range Comments POC-GLUCOSE METER (BEAKER) 169 mg/dL 70-110 TESTED AT [address] (test oqbm=9180) [place] [address] [id number] 04:58:00 Test Item Value Reference Range Comments PHOSPHORUS (BEAKER) (test wywq=306) 2.0 mg/dL 2.3-4.7 [id number] 04:58:00 Test Item Value Reference Range Comments MAGNESIUM (BEAKER) (test czgy=688) 2.0 mg/dL 1.6-2.6 BASIC METABOLIC [id number] 04:58:00 Test Item Value Reference Range Comments SODIUM (BEAKER) (test 140 meq/L 136-145 nbhx=706) POTASSIUM (BEAKER) (test 4.0 meq/L 3.5-5.1 zbsm=444) CHLORIDE (BEAKER) (test 109 meq/L 98-107 jbry=243) CO2 (BEAKER) (test 21 meq/L 22-29 bkch=078) BLOOD UREA NITROGEN 14 mg/dL 7-21 (BEAKER) (test rhmb=928) CREATININE (BEAKER) (test 0.82 mg/dL 0.57-1.25 azdh=489) GLUCOSE RANDOM (BEAKER) 135 mg/dL 70-105 (test cehf=162) CALCIUM (BEAKER) (test 8.8 mg/dL 8.4-10.2 gvpe=072) EGFR (BEAKER) (test 72 mL/min/1.73 sq m ESTIMATED GFR IS NOT wsbi=8835) ACCURATE CREATININE CLEARANCE IN PREDICTING GLOMERULAR FILTRATION RATE. ESTIMATED GFR IS NOT APPLICABLE FOR DIALYSIS PATIENTS. CBC W/PLT COUNT & AUTO [id number] 04:14:00 Test Item Value Reference Range Comments WHITE BLOOD CELL COUNT (BEAKER) (test bnyo=110) 12.1 K/ L 4.0-10.0 RED BLOOD CELL COUNT (BEAKER) (test uyhp=301) 4.18 M/ L 4.00-5.00 HEMOGLOBIN (BEAKER) (test dhzk=095) 12.2 GM/DL 12.0-15.0 HEMATOCRIT (BEAKER) (test yivm=755) 37.8 % 36.0-45.0 MEAN CORPUSCULAR VOLUME (BEAKER) (test zvaq=093) 90.4 fL 82.0-99.0 MEAN CORPUSCULAR HEMOGLOBIN (BEAKER) (test 29.3 pg 27.0-33.0 mlpc=439) MEAN CORPUSCULAR HEMOGLOBIN CONC (BEAKER) (test 32.4 GM/DL 32.0-36.0 ojhn=794) RED CELL DISTRIBUTION WIDTH (BEAKER) (test 14.7 % 10.3-14.2 wmmb=119) PLATELET COUNT (BEAKER) (test elya=024) 211 K/CU MM 150-430 MEAN PLATELET VOLUME (BEAKER) (test dvqi=681) 6.8 fL 6.5-10.5 NUCLEATED RED BLOOD CELLS (BEAKER) (test 0 /100 WBC 0-0 beys=285) NEUTROPHILS RELATIVE PERCENT (BEAKER) (test 63 % haba=512) LYMPHOCYTES RELATIVE PERCENT (BEAKER) (test 26 % xrtb=019) MONOCYTES RELATIVE PERCENT (BEAKER) (test 9 % bsfc=957) EOSINOPHILS RELATIVE PERCENT (BEAKER) (test 2 % tgxx=555) BASOPHILS RELATIVE PERCENT (BEAKER) (test 1 % rjdx=331) NEUTROPHILS ABSOLUTE COUNT (BEAKER) (test 7.57 K/ L 1.80-8.00 dfrq=797) LYMPHOCYTES ABSOLUTE COUNT (BEAKER) (test 3.12 K/ L 1.48-4.50 ifja=892) MONOCYTES ABSOLUTE COUNT (BEAKER) (test 1.09 K/ L 0.00-1.30 vamm=794) EOSINOPHILS ABSOLUTE COUNT (BEAKER) (test 0.24 K/ L 0.00-0.50 wyas=916) BASOPHILS ABSOLUTE COUNT (BEAKER) (test 0.08 K/ L 0.00-0.20 fyvs=574) 0.00POCT-GLUCOSE [id number] 21:38:00 Test Item Value Reference Range Comments POC-GLUCOSE METER (BEAKER) 137 mg/dL 70-110 TESTED AT [address] (test lele=6618) [place] [address] POCT-GLUCOSE [id number] 11:40:00 Test Item Value Reference Range Comments POC-GLUCOSE METER (BEAKER) 187 mg/dL 70-110 TESTED AT [address] (test udzb=5671) [place] [address] POCT-GLUCOSE [id number] 06:44:00 Test Item Value Reference Range Comments POC-GLUCOSE METER (BEAKER) 160 mg/dL 70-110 TESTED AT [address] (test papk=1424) [place] [address] BLOOD GAS, [id number] 04:11:00 Test Item Value Reference Range Comments PH ARTERIAL (BEAKER) (test quaf=159) 7.36 7.35-7.45 PCO2 ARTERIAL (BEAKER) (test oumc=352) 41 mmHg 35-45 PO2 ARTERIAL (BEAKER) (test hepo=375) 76 mmHg 80-90 O2 SATURATION ARTERIAL (BEAKER) (test qiht=536) 94.7 % 96.0-97.0 HCO3 ARTERIAL (BEAKER) (test lcfn=751) 23 mmol/L 21-29 BASE EXCESS ARTERIAL (BEAKER) (test zewr=177) -2.7 mmol/L -2.0-3.0 PATIENT TEMPERATURE (BEAKER) (test drug=4900) 37.0 C FIO2 (BEAKER) (test vean=6674) 40.0 % [id number] 04:09:00 Test Item Value Reference Range Comments PHOSPHORUS (BEAKER) (test qyqu=900) 2.9 mg/dL 2.3-4.7 [id number] 04:09:00 Test Item Value Reference Range Comments MAGNESIUM (BEAKER) (test lsqb=846) 2.1 mg/dL 1.6-2.6 BASIC METABOLIC [id number] 04:09:00 Test Item Value Reference Range Comments SODIUM (BEAKER) (test 139 meq/L 136-145 croc=200) POTASSIUM (BEAKER) (test 4.2 meq/L 3.5-5.1 rpux=323) CHLORIDE (BEAKER) (test 108 meq/L 98-107 oqaa=762) CO2 (BEAKER) (test 20 meq/L 22-29 rmrp=367) BLOOD UREA NITROGEN 16 mg/dL 7-21 (BEAKER) (test ymzv=268) CREATININE (BEAKER) (test 0.80 mg/dL 0.57-1.25 xoyi=892) GLUCOSE RANDOM (BEAKER) 172 mg/dL 70-105 (test lbon=610) CALCIUM (BEAKER) (test 8.2 mg/dL 8.4-10.2 qgip=961) EGFR (BEAKER) (test 74 mL/min/1.73 sq m ESTIMATED GFR IS NOT dszl=9931) ACCURATE CREATININE CLEARANCE IN PREDICTING GLOMERULAR FILTRATION RATE. ESTIMATED GFR IS NOT APPLICABLE FOR DIALYSIS PATIENTS. CBC W/PLT COUNT & AUTO [id number] 03:57:00 Test Item Value Reference Range Comments WHITE BLOOD CELL COUNT (BEAKER) (test ivfr=692) 14.9 K/ L 4.0-10.0 RED BLOOD CELL COUNT (BEAKER) (test jmjh=271) 4.17 M/ L 4.00-5.00 HEMOGLOBIN (BEAKER) (test ppnu=300) 12.7 GM/DL 12.0-15.0 HEMATOCRIT (BEAKER) (test zmul=294) 37.4 % 36.0-45.0 MEAN CORPUSCULAR VOLUME (BEAKER) (test qwtq=189) 89.6 fL 82.0-99.0 MEAN CORPUSCULAR HEMOGLOBIN (BEAKER) (test 30.5 pg 27.0-33.0 samx=535) MEAN CORPUSCULAR HEMOGLOBIN CONC (BEAKER) (test 34.0 GM/DL 32.0-36.0 ccoy=733) RED CELL DISTRIBUTION WIDTH (BEAKER) (test 12.8 % 10.3-14.2 tthr=811) PLATELET COUNT (BEAKER) (test ahrl=563) 217 K/CU MM 150-430 MEAN PLATELET VOLUME (BEAKER) (test rvpn=949) 6.4 fL 6.5-10.5 NUCLEATED RED BLOOD CELLS (BEAKER) (test 0 /100 WBC 0-0 ysma=981) NEUTROPHILS RELATIVE PERCENT (BEAKER) (test 74 % molw=203) LYMPHOCYTES RELATIVE PERCENT (BEAKER) (test 17 % obbl=506) MONOCYTES RELATIVE PERCENT (BEAKER) (test 8 % vtsi=702) EOSINOPHILS RELATIVE PERCENT (BEAKER) (test 0 % ncov=471) BASOPHILS RELATIVE PERCENT (BEAKER) (test 0 % vtzj=276) NEUTROPHILS ABSOLUTE COUNT (BEAKER) (test 11.10 K/ L 1.80-8.00 wtfj=706) LYMPHOCYTES ABSOLUTE COUNT (BEAKER) (test 2.60 K/ L 1.48-4.50 wxpy=064) MONOCYTES ABSOLUTE COUNT (BEAKER) (test 1.13 K/ L 0.00-1.30 ynuw=611) EOSINOPHILS ABSOLUTE COUNT (BEAKER) (test 0.03 K/ L 0.00-0.50 auud=455) BASOPHILS ABSOLUTE COUNT (BEAKER) (test 0.07 K/ L 0.00-0.20 iqav=584) 0.00POCT-GLUCOSE [id number] 00:34:00 Test Item Value Reference Range Comments POC-GLUCOSE METER (BEAKER) 243 mg/dL 70-110 TESTED AT [facility] [address] [facility] (test keid=7260) [facility] [address] [id number] 21:39:00 Test Item Value Reference Range Comments PHOSPHORUS (BEAKER) (test emzn=662) 3.7 mg/dL 2.3-4.7 [id number] 21:39:00 Test Item Value Reference Range Comments MAGNESIUM (BEAKER) (test tils=015) 1.6 mg/dL 1.6-2.6 COMPREHENSIVE METABOLIC [id number] 21:39:00 Test Item Value Reference Range Comments TOTAL PROTEIN (BEAKER) 6.6 gm/dL 6.0-8.3 (test craq=764) ALBUMIN (BEAKER) (test 4.1 g/dL 3.5-5.0 oqzl=7190) ALKALINE PHOSPHATASE 63 U/L 40-150 (BEAKER) (test tnap=408) BILIRUBIN TOTAL (BEAKER) 0.5 mg/dL 0.2-1.2 (test szts=126) SODIUM (BEAKER) (test 140 meq/L 136-145 lrkt=943) POTASSIUM (BEAKER) (test 3.8 meq/L 3.5-5.1 java=171) CHLORIDE (BEAKER) (test 108 meq/L 98-107 wqth=303) CO2 (BEAKER) (test 20 meq/L 22-29 ojkk=079) BLOOD UREA NITROGEN 20 mg/dL 7-21 (BEAKER) (test fqin=583) CREATININE (BEAKER) (test 0.92 mg/dL 0.57-1.25 nctc=858) GLUCOSE RANDOM (BEAKER) 191 mg/dL 70-105 (test vyyy=374) CALCIUM (BEAKER) (test 8.6 mg/dL 8.4-10.2 gqfx=998) AST (SGOT) (BEAKER) (test 16 U/L 5-34 cspc=611) ALT (SGPT) (BEAKER) (test 20 U/L 6-55 qrcv=545) EGFR (BEAKER) (test 63 mL/min/1.73 sq m ESTIMATED GFR IS NOT khsy=8104) ACCURATE CREATININE CLEARANCE IN PREDICTING GLOMERULAR FILTRATION RATE. ESTIMATED GFR IS NOT APPLICABLE FOR DIALYSIS PATIENTS. CBC W/PLT COUNT & AUTO [id number] 21:24:00 Test Item Value Reference Range Comments WHITE BLOOD CELL COUNT (BEAKER) (test yhbd=240) 17.1 K/ L 4.0-10.0 RED BLOOD CELL COUNT (BEAKER) (test ctkg=914) 4.55 M/ L 4.00-5.00 HEMOGLOBIN (BEAKER) (test hzgt=757) 13.4 GM/DL 12.0-15.0 HEMATOCRIT (BEAKER) (test ianv=433) 40.7 % 36.0-45.0 MEAN CORPUSCULAR VOLUME (BEAKER) (test echz=920) 89.4 fL 82.0-99.0 MEAN CORPUSCULAR HEMOGLOBIN (BEAKER) (test 29.4 pg 27.0-33.0 xeyn=174) MEAN CORPUSCULAR HEMOGLOBIN CONC (BEAKER) (test 32.9 GM/DL 32.0-36.0 kzey=560) RED CELL DISTRIBUTION WIDTH (BEAKER) (test 14.7 % 10.3-14.2 ipcq=709) PLATELET COUNT (BEAKER) (test lred=197) 228 K/CU MM 150-430 MEAN PLATELET VOLUME (BEAKER) (test rlpp=518) 6.4 fL 6.5-10.5 NUCLEATED RED BLOOD CELLS (BEAKER) (test 0 /100 WBC 0-0 lmgm=354) NEUTROPHILS RELATIVE PERCENT (BEAKER) (test 86 % ltkw=016) LYMPHOCYTES RELATIVE PERCENT (BEAKER) (test 10 % hrft=583) MONOCYTES RELATIVE PERCENT (BEAKER) (test 4 % hibx=700) EOSINOPHILS RELATIVE PERCENT (BEAKER) (test 0 % mgcw=208) BASOPHILS RELATIVE PERCENT (BEAKER) (test 0 % hqvi=531) NEUTROPHILS ABSOLUTE COUNT (BEAKER) (test 14.60 K/ L 1.80-8.00 rnbh=967) LYMPHOCYTES ABSOLUTE COUNT (BEAKER) (test 1.68 K/ L 1.48-4.50 eqpj=441) MONOCYTES ABSOLUTE COUNT (BEAKER) (test 0.70 K/ L 0.00-1.30 xtyt=171) EOSINOPHILS ABSOLUTE COUNT (BEAKER) (test 0.04 K/ L 0.00-0.50 smbj=627) BASOPHILS ABSOLUTE COUNT (BEAKER) (test 0.06 K/ L 0.00-0.20 urxm=696) 0.00BLOOD GAS, [id number] 21:20:00 Test Item Value Reference Range Comments PH ARTERIAL (BEAKER) (test msmi=076) 7.28 7.35-7.45 PCO2 ARTERIAL (BEAKER) (test bnkb=560) 51 mmHg 35-45 PO2 ARTERIAL (BEAKER) (test lmib=135) 150 mmHg 80-90 O2 SATURATION ARTERIAL (BEAKER) (test jont=986) 98.7 % 96.0-97.0 HCO3 ARTERIAL (BEAKER) (test rtve=166) 24 mmol/L 21-29 BASE EXCESS ARTERIAL (BEAKER) (test xmoe=481) -3.7 mmol/L -2.0-3.0 PATIENT TEMPERATURE (BEAKER) (test ijzf=0746) 36.9 C FIO2 (BEAKER) (test hxrh=9168) 100.0 % BLOOD GAS, [id number] 18:58:00 Test Item Value Reference Range Comments PH ARTERIAL (BEAKER) (test ujbm=025) 7.37 7.35-7.45 PCO2 ARTERIAL (BEAKER) (test wbke=652) 39 mmHg 35-45 PO2 ARTERIAL (BEAKER) (test vwpp=078) 116 mmHg 80-90 O2 SATURATION ARTERIAL (BEAKER) (test lkwf=846) 98.1 % 96.0-97.0 HCO3 ARTERIAL (BEAKER) (test ubbx=980) 22 mmol/L 21-29 BASE EXCESS ARTERIAL (BEAKER) (test buyj=481) -3.2 mmol/L -2.0-3.0 PATIENT TEMPERATURE (BEAKER) (test iicp=4680) 37.0 C GLUCOSE-STAT [id number] 18:58:00 Test Item Value Reference Range Comments GLUCOSE RANDOM (BEAKER) (test isjo=044) 179 mg/dL 70-110 CALCIUM, [id number] 18:58:00 Test Item Value Reference Range Comments CALCIUM IONIZED (BEAKER) (test usjc=392) 0.96 mmol/L 1.12-1.27 PH, BLOOD (BEAKER) (test aknx=2341) 7.37 SODIUM NA-STAT [id number] 18:57:00 Test Item Value Reference Range Comments SODIUM (BEAKER) (test yqit=633) 138 meq/L 135-148 POTASSIUM-STAT [id number] 18:57:00 Test Item Value Reference Range Comments POTASSIUM (BEAKER) (test ptgj=978) 3.8 meq/L 3.6-5.5 HGB/HCT (H&H) - STAT [id number] 18:57:00 Test Item Value Reference Range Comments HEMOGLOBIN (BEAKER) (test ohvp=985) 12.8 g/dL 12.0-15.0 HEMATOCRIT (BEAKER) (test qhjx=409) 38.0 % 36.0-45.0 SODIUM NA-STAT [id number] 17:20:00 Test Item Value Reference Range Comments SODIUM (BEAKER) (test yuqd=026) 138 meq/L 135-148 POTASSIUM-STAT [id number] 17:20:00 Test Item Value Reference Range Comments POTASSIUM (BEAKER) (test uexk=203) 3.8 meq/L 3.6-5.5 HGB/HCT (H&H) - STAT [id number] 17:20:00 Test Item Value Reference Range Comments HEMOGLOBIN (BEAKER) (test rjyp=186) 12.8 g/dL 12.0-15.0 HEMATOCRIT (BEAKER) (test pkde=775) 38.0 % 36.0-45.0 BLOOD GAS, [id number] 17:20:00 Test Item Value Reference Range Comments PH ARTERIAL (BEAKER) (test vqlk=577) 7.38 7.35-7.45 PCO2 ARTERIAL (BEAKER) (test czle=135) 40 mmHg 35-45 PO2 ARTERIAL (BEAKER) (test ldqu=806) 103 mmHg 80-90 O2 SATURATION ARTERIAL (BEAKER) (test edqh=159) 97.6 % 96.0-97.0 HCO3 ARTERIAL (BEAKER) (test xvxn=287) 23 mmol/L 21-29 BASE EXCESS ARTERIAL (BEAKER) (test rkzj=601) -1.9 mmol/L -2.0-3.0 PATIENT TEMPERATURE (BEAKER) (test hrbu=0697) 37.0 C FIO2 (BEAKER) (test oueu=8618) 100.0 % GLUCOSE-STAT [id number] 17:20:00 Test Item Value Reference Range Comments GLUCOSE RANDOM (BEAKER) (test zvxe=867) 167 mg/dL 70-110 CALCIUM, [id number] 17:20:00 Test Item Value Reference Range Comments CALCIUM IONIZED (BEAKER) (test xpsv=730) 1.09 mmol/L 1.12-1.27 PH, BLOOD (BEAKER) (test femf=1194) 7.38 BLOOD GAS, [id number] 16:34:00 Test Item Value Reference Range Comments PH ARTERIAL (BEAKER) (test qfbv=505) 7.31 7.35-7.45 PCO2 ARTERIAL (BEAKER) (test czir=788) 49 mmHg 35-45 PO2 ARTERIAL (BEAKER) (test imkz=405) 141 mmHg 80-90 O2 SATURATION ARTERIAL (BEAKER) (test mogp=607) 98.6 % 96.0-97.0 HCO3 ARTERIAL (BEAKER) (test aitn=749) 24 mmol/L 21-29 BASE EXCESS ARTERIAL (BEAKER) (test kkxz=264) -2.3 mmol/L -2.0-3.0 PATIENT TEMPERATURE (BEAKER) (test qzjr=5734) 37.0 C FIO2 (BEAKER) (test fsdh=2912) 100.0 % GLUCOSE-STAT [id number] 16:34:00 Test Item Value Reference Range Comments GLUCOSE RANDOM (BEAKER) (test qcsj=014) 151 mg/dL 70-110 CALCIUM, [id number] 16:34:00 Test Item Value Reference Range Comments CALCIUM IONIZED (BEAKER) (test lrvr=262) 1.11 mmol/L 1.12-1.27 PH, BLOOD (BEAKER) (test pvez=6267) 7.31 SODIUM NA-STAT [id number] 16:33:00 Test Item Value Reference Range Comments SODIUM (BEAKER) (test wnyt=488) 139 meq/L 135-148 POTASSIUM-STAT [id number] 16:33:00 Test Item Value Reference Range Comments POTASSIUM (BEAKER) (test hake=727) 3.6 meq/L 3.6-5.5 HGB/HCT (H&H) - STAT [id number] 16:33:00 Test Item Value Reference Range Comments HEMOGLOBIN (BEAKER) (test yrlv=307) 13.0 g/dL 12.0-15.0 HEMATOCRIT (BEAKER) (test ykks=777) 38.0 % 36.0-45.0 BLOOD GAS, [id number] 15:56:00 Test Item Value Reference Range Comments PH ARTERIAL (BEAKER) (test ysjt=494) 7.34 7.35-7.45 PCO2 ARTERIAL (BEAKER) (test paja=267) 46 mmHg 35-45 PO2 ARTERIAL (BEAKER) (test pqpn=910) 87 mmHg 80-90 O2 SATURATION ARTERIAL (BEAKER) (test lbgi=819) 96.4 % 96.0-97.0 HCO3 ARTERIAL (BEAKER) (test tkdp=667) 24 mmol/L 21-29 BASE EXCESS ARTERIAL (BEAKER) (test fvpi=364) -2.0 mmol/L -2.0-3.0 PATIENT TEMPERATURE (BEAKER) (test qbmn=9021) 36.1 C FIO2 (BEAKER) (test iafp=9496) 100.0 % GLUCOSE-STAT [id number] 15:56:00 Test Item Value Reference Range Comments GLUCOSE RANDOM (BEAKER) (test oksi=008) 142 mg/dL 70-110 CALCIUM, [id number] 15:56:00 Test Item Value Reference Range Comments CALCIUM IONIZED (BEAKER) (test kwii=853) 1.03 mmol/L 1.12-1.27 PH, BLOOD (BEAKER) (test gpdf=2260) 7.32 SODIUM NA-STAT [id number] 15:55:00 Test Item Value Reference Range Comments SODIUM (BEAKER) (test tqqy=431) 138 meq/L 135-148 POTASSIUM-STAT [id number] 15:55:00 Test Item Value Reference Range Comments POTASSIUM (BEAKER) (test vepo=668) 3.8 meq/L 3.6-5.5 HGB/HCT (H&H) - STAT [id number] 15:55:00 Test Item Value Reference Range Comments HEMOGLOBIN (BEAKER) (test mnrx=703) 13.5 g/dL 12.0-15.0 HEMATOCRIT (BEAKER) (test ycrv=929) 40.0 % 36.0-45.0 URINALYSIS W/ [id number] 13:28:00 Test Item Value Reference Range Comments COLOR (BEAKER) (test qiwe=493) Yellow CLARITY (BEAKER) (test gfkp=559) Hazy SPECIFIC GRAVITY UA (BEAKER) (test 1.013 1.001-1.035 jdnz=731) PH UA (BEAKER) (test qfsi=204) 5.5 5.0-8.0 PROTEIN UA (BEAKER) (test bzda=533) 10 mg/dL Negative GLUCOSE UA (BEAKER) (test tlgh=006) Negative Negative KETONES UA (BEAKER) (test uytn=007) Negative Negative BILIRUBIN UA (BEAKER) (test znwl=111) Negative Negative BLOOD UA (BEAKER) (test gktc=580) Trace Negative NITRITE UA (BEAKER) (test vjcl=028) Negative Negative LEUKOCYTE ESTERASE UA (BEAKER) (test Large Negative auix=103) UROBILINOGEN UA (BEAKER) (test lpga=546) 0.2 mg/dL 0.2-1.0 RBC UA (BEAKER) (test ekar=603) 3 /HPF WBC UA (BEAKER) (test dphl=833) 128 /HPF BACTERIA (BEAKER) (test kjbo=827) Occasional MUCUS (BEAKER) (test iigv=6115) Rare SQUAMOUS EPITHELIAL (BEAKER) (test < /HPF apya=436) SOURCE(BEAKER) (test lfkd=7482) Urine, Clean Catch POCT-GLUCOSE [id number] 12:50:00 Test Item Value Reference Range Comments POC-GLUCOSE METER (BEAKER) 146 mg/dL 70-110 TESTED AT [facility] [address] [place] [address] (test sito=0356) [facility] [address] URINE [id number] 09:26:00 Test Item Value Reference Range Comments CULTURE (BEAKER) (test 50-59,000 col/mL Myroides jive=6934) speciesMost closely resembles <10,000 col/mL Beta hemolytic strepURINALYSIS W/ [id number] 11:15: 00 Test Item Value Reference Range Comments COLOR (BEAKER) (test iriz=167) Yellow CLARITY (BEAKER) (test xygc=441) Hazy SPECIFIC GRAVITY UA (BEAKER) (test fcih=845) 1.013 1.001-1.035 PH UA (BEAKER) (test nleg=056) 6.0 5.0-8.0 PROTEIN UA (BEAKER) (test qoxo=774) 10 mg/dL Negative GLUCOSE UA (BEAKER) (test nlvr=041) Negative Negative KETONES UA (BEAKER) (test ktxg=859) Negative Negative BILIRUBIN UA (BEAKER) (test bjaz=124) Negative Negative BLOOD UA (BEAKER) (test kcje=300) Small Negative NITRITE UA (BEAKER) (test yzsp=535) Negative Negative LEUKOCYTE ESTERASE UA (BEAKER) (test qjlb=799) Large Negative UROBILINOGEN UA (BEAKER) (test edrw=957) 0.2 mg/dL 0.2-1.0 RBC UA (BEAKER) (test jgng=356) 3 /HPF WBC UA (BEAKER) (test nrpp=446) > /HPF BACTERIA (BEAKER) (test ebmd=835) Occasional SQUAMOUS EPITHELIAL (BEAKER) (test bodn=049) < /HPF YEAST (BEAKER) (test octz=5343) Occasional SOURCE(BEAKER) (test ddwu=7582) BASIC METABOLIC [id number] 11:08:00 Test Item Value Reference Range Comments SODIUM (BEAKER) (test 140 meq/L 136-145 macg=498) POTASSIUM (BEAKER) (test 4.3 meq/L 3.5-5.1 Specimen slightly ihks=493) hemolyzed CHLORIDE (BEAKER) (test 104 meq/L 98-107 grlx=097) CO2 (BEAKER) (test 26 meq/L 22-29 rhnf=031) BLOOD UREA NITROGEN 19 mg/dL 7-21 (BEAKER) (test qanl=870) CREATININE (BEAKER) (test 0.85 mg/dL 0.57-1.25 Specimen slightly zrlp=973) hemolyzed GLUCOSE RANDOM (BEAKER) 141 mg/dL 70-105 (test omsu=993) CALCIUM (BEAKER) (test 9.5 mg/dL 8.4-10.2 ubis=099) EGFR (BEAKER) (test 69 mL/min/1.73 sq m ESTIMATED GFR IS NOT cstg=5191) ACCURATE CREATININE CLEARANCE IN PREDICTING GLOMERULAR FILTRATION RATE. ESTIMATED GFR IS NOT APPLICABLE FOR DIALYSIS PATIENTS. PROTHROMBIN TIME/[id number] 10:58:00 Test Item Value Reference Range Comments PROTIME (BEAKER) (test hdlu=414) 12.8 seconds 11.7-14.7 INR (BEAKER) (test tfgy=849) 1.0 <=5.9 RECOMMENDED COUMADIN/WARFARIN INR THERAPY RANGESSTANDARD DOSE: 2.0 - 3.0 Includes: PROPHYLAXIS forvenous thrombosis, systemic embolization; TREATMENT for venous thrombosis and/or pulmonary embolus.HIGH RISK: Target INR is 2.5-3.5 for patients with mechanical heart valves.[id number] 10:58:00 Test Item Value Reference Range Comments PARTIAL THROMBOPLASTIN TIME (BEAKER) (test 35.7 seconds 22.5-36.0 vvmg=850) CBC W/PLT COUNT & AUTO [id number] 10:48:00 Test Item Value Reference Range Comments WHITE BLOOD CELL COUNT (BEAKER) (test fcgq=462) 10.6 K/ L 4.0-10.0 RED BLOOD CELL COUNT (BEAKER) (test nhtg=249) 5.12 M/ L 4.00-5.00 HEMOGLOBIN (BEAKER) (test dtxp=995) 14.8 GM/DL 12.0-15.0 HEMATOCRIT (BEAKER) (test twbj=043) 45.9 % 36.0-45.0 MEAN CORPUSCULAR VOLUME (BEAKER) (test zply=476) 89.5 fL 82.0-99.0 MEAN CORPUSCULAR HEMOGLOBIN (BEAKER) (test 29.0 pg 27.0-33.0 ppbd=887) MEAN CORPUSCULAR HEMOGLOBIN CONC (BEAKER) (test 32.4 GM/DL 32.0-36.0 ikwp=208) RED CELL DISTRIBUTION WIDTH (BEAKER) (test 14.8 % 10.3-14.2 aczp=991) PLATELET COUNT (BEAKER) (test ohwa=274) 255 K/CU MM 150-430 MEAN PLATELET VOLUME (BEAKER) (test muxo=620) 6.7 fL 6.5-10.5 NUCLEATED RED BLOOD CELLS (BEAKER) (test 0 /100 WBC 0-0 pylf=126) NEUTROPHILS RELATIVE PERCENT (BEAKER) (test 59 % ekdf=095) LYMPHOCYTES RELATIVE PERCENT (BEAKER) (test 31 % ojta=347) MONOCYTES RELATIVE PERCENT (BEAKER) (test 6 % wvpe=308) EOSINOPHILS RELATIVE PERCENT (BEAKER) (test 2 % ozbi=579) BASOPHILS RELATIVE PERCENT (BEAKER) (test 1 % qxee=821) NEUTROPHILS ABSOLUTE COUNT (BEAKER) (test 6.30 K/ L 1.80-8.00 awnq=923) LYMPHOCYTES ABSOLUTE COUNT (BEAKER) (test 3.34 K/ L 1.48-4.50 hzbz=169) MONOCYTES ABSOLUTE COUNT (BEAKER) (test 0.68 K/ L 0.00-1.30 hasq=095) EOSINOPHILS ABSOLUTE COUNT (BEAKER) (test 0.20 K/ L 0.00-0.50 zegl=251) BASOPHILS ABSOLUTE COUNT (BEAKER) (test 0.12 K/ L 0.00-0.20 zomc=981) 0.00
--- OUTSIDE RECORDS SUMMARY | 2019-06-26 19:57 | XMS REPORT | Encounter Summary ---
:1960 Author Care Team Providers Name Role Phone Dylan De Luna MD Primary Care Provider [phone] Geoff Villarreal Animal Herder [phone] Nesha Vogt MD Message Clerk [phone] Reason for Visit Follow Up Visit Instructions 1. Skin lesion skin lesions: care instructions dermatology referral 2. Complication of anesthesia 3. Type 2 diabetes mellitus without complication Discussion Note: None recorded. Plan of Care Reminders Provider Appointments Follow up Dylan De Luna MD 02/25/2019 9:45AM Endoscopy Geoff Villarreal, 05/23/2019 10:30AM Lab None recorded. Referral Dermatology [facility] Referral 02/19/2019 Procedures None recorded. Surgeries None recorded. Imaging None recorded. Medications Name Start Date Anoro Ellipta 62.5 mcg-25 mcg/actuation powder for inhalation bupropion HCl SR 200 mg tablet,12 hr sustained-release Bystolic 5 mg tablet TAKE ONE (1) TABLET(S) BY MOUTH ONCE A DAY. Contour Next Test Strips escitalopram 20 mg tablet TAKE ONE (1) TABLET(S) BY MOUTH ONCE A DAY. ezetimibe 10 mg tablet metformin ER 750 mg tablet,extended release 24 hr Microlet Lancet montelukast 10 mg tablet omeprazole 40 mg capsule,delayed release Trulicity 0.75 mg/0.5 mL subcutaneous pen injector Inject 0.5 mL every week by subcutaneous route. Medications Administered None recorded. Vitals Height Weight BMI Blood Pressure 67 in 270 lbs 42.3 kg/m2 136/83 mm[Hg] Lab Results Date Name Specimen Result Interpretation Description Value Range Status Address 02/11/2019 Surgical Study Report Final [place] Pathology Study [facility] (Lab): [address] [facility] 02/04/2019 CBC W/ Auto Normal White Blood 11.0 4.0-11.5 Final [place] Diff Count K/uL K/uL [facility] (Lab): [address] [facility] Normal Red Blood 5.16 3.80-5.2 Final [place] Count M/uL 0 M/uL [facility] (Lab): [address] [place] [address] Normal Hemoglobin 14.4 10.5-15. Final [place] g/dL 7 g/dL [facility] (Lab): [address] [place] [address] Normal Hematocrit 45.2 % 34.0-50. Final [place] 0 % [facility] (Lab): [address] [place] [address] Normal Mean 87.6 fL 78-98 fL Final [place] [facility] (Lab): [address] [place] [address] Normal Mean 27.9 pg 26.2-33. Final [place] Corpuscular 4 pg [facility] Hemoglobin [facility] (Lab): [address] [place] [address] Normal Mean 31.8 31.5-36. Final [place] Corpuscular g/dL 2 g/dL [facility] (Lab): [address] [place] [address] Normal Red Cell 13.5 % 11.5-15. Final [place] Distribution 5 % [facility] (Lab): [address] [place] [address] Normal Platelet 282 K/uL 137-338 Final [place] Count K/uL [facility] (Lab): [address] [place] [address] Low Mean Platelet 5.8 fL 8.4-11.8 Final [place] Volume fL [facility] (Lab): [address] [place] [address] Normal Neutrophils % 64.4 % 44.4-80. Corrected [place] 1 % [facility] (Lab): [address] [place] [address] Normal Lymphocyte% 24.8 % 10.0-50. Final [place] 0 % [facility] (Lab): [address] [place] [address] Normal [place] % 7.2 % 3.6-12.0 Final [place] % [facility] (Lab): [address] [place] [address] Normal Eos % 2.0 % 0.0-5.4 Final [place] % [facility] (Lab): [address] [place] [address] High Basophil % 1.6 % 0.0-0.79 Final [place] % [facility] (Lab): [address] [place] [address] 02/04/2019 PT/INR Low Prothrombin 10.1 10.3-12. Final [place] Time seconds 3 [facility] (Lab): [address] [place] [address] Normal Inr 0.92 Final [place] [facility] (Lab): [address] [place] [address] 02/04/2019 Partial Normal Partial 28.2 22.5-37. Final [place] Thromboplastin Thromboplastin seconds 0 [facility] Time Time [facility] (Lab): [address] [place] [address] 02/04/2019 BMP, Serum or High Glucose 116 74-106 Final [place] Plasma mg/dL mg/dL [facility] (Lab): [address] [place] [address] Normal Blood Urea 18 mg/dL 6-20 Final [place] Nitrogen mg/dL [facility] (Lab): [address] [place] [address] Low Osmolality 279 280-300 Final [place] Calculated, [facility] Serum [facility] (Lab): [address] [place] [address] High Creatinine 1.2 0.50-0.9 Final [place] mg/dL 0 mg/dL [facility] (Lab): [address] [place] [address] Low Glomerular 46.14 Final [place] Filtration [facility] (Lab): [address] [place] [address] Normal BUN/creatinin 15.0 12-20 Final [place] e Ratio [facility] (Lab): [address] [place] [address] Normal Sodium Level 138 135-145 Final [place] mmol/L mmol/L [facility] (Lab): [address] [place] [address] Normal Potassium 4.2 3.5-5.2 Final [place] Level mmol/L mmol/L [facility] (Lab): [address] [place] [address] Normal Chloride 100 98-108 Final [place] Level mmol/L mmol/L [facility] (Lab): [address] [place] [address] Normal Co2 27 21-32 Final [place] mmol/L mmol/L [facility] (Lab): [address] [place] [address] Normal Anion Gap 15.2 12-20 Final [place] mEq/L mEq/L [facility] (Lab): [address] [place] [address] Normal Calcium Level 10.0 8.6-10.0 Final [place] mg/dL mg/dL [facility] (Lab): [address] [place] [address] Surgical No observation [place] Pathology Study recorded. [facility]: [address] [place] [address] Allergies Code Code System Name Reaction Severity Status Onset 20331218 RxNorm Benadryl Active 643196 RxNorm Demerol Active 20270816 RxNorm Diflucan Hives [...] Superficial Foreign Body in Wrist Active 12/17/2018 Skin Lesion Active 02/19/2019 Procedures Date Name Performed by 11/30/2017 Exploration of Kidney Information not available Remove Tonsils and Adenoids Information not available Ankle Arthroscopy/surgery Information not available Exploration of Kidney Information not available Hysterectomy/revise Vagina Information not available Vaccine List Vaccine Type Tdap 05/28/20180.5 mL Social History Smoking Status Heavy Tobacco Smoker (1/2 PPD) Past Encounters 02/20/2019 Polyp of Vocal Cord; Hoarse; Smoker Geoff Villarreal MD: [address], [address], [place] [address], Ph. 02/19/2019 Skin Lesion; Complication of Anesthesia; Type 2 Diabetes Mellitus without Complication Dylan De Luna MD: [address], [address], [place] [address], Ph. [phone] 01/24/2019 Hoarse; Choking; Polyp of Vocal Cord; Smoker; Dysphagia; Sinusitis; Deviated Nasal Septum; Hypertrophy of Nasal Turbinates; Hearing Loss; Otitis Externa; Tinnitus; Chronic Obstructive Lung Disease Geoff Villarreal MD: [address] [facility], [address], [place] [address], Ph. History of Present Illness Note: CC joint pain<div>hpi noticed after surg but also started on a CHO lowering med went to EDbut now doing better </div><div>CC gi sx following the cho lowering meds</div><div>hpi has noticed bms changing and burping</div><div>ros</div><div>gen above& lt;/div><div>cv neg</div><div>resp neg</div><div& gt;
</div>Review of Systems: ROS as noted in [...] Heart Auscultation: RRR, no rubs, no gallops Skin: Inspection and palpation: lesion
--- OUTSIDE RECORDS SUMMARY | 2019-06-26 19:57 | XMS REPORT | Encounter Summary ---
:1960 Author Care Team Providers Name Role Phone Dylan De Luna MD Primary Care Provider [phone] Geoff Villarreal Correctional Agency Director [phone] Nesha Vogt MD Distance Learning Administrator [phone] Reason for Visit Follow Up Visit Instructions 1. Nocturnal muscle spasm neurology referral 2. Excessive sweating abnormal sweating: care instructions endocrinology referral Discussion Note: None recorded. Plan of Care Reminders Provider Appointments Endoscopy Geoff Villarreal, 05/23/2019 10:30AM Lab None recorded. Referral Neurology Martinez Espinosa Referral 04/04/2019 Endocrinology Kely Bailon MD Referral 04/04/2019 Procedures None recorded. Surgeries None recorded. Imaging [...] Height Weight BMI Blood Pressure 67 in 271 lbs 16 oz 42.6 kg/m2 141/79 mm[Hg] Lab Results Date Name Specimen Result Interpretation Description Value Range Status Address 02/11/2019 Surgical Study Report Final [place] Pathology Study [facility] (Lab): [address] [facility] 02/04/2019 CBC W/ Auto Normal White Blood 11.0 4.0-11.5 Final [place] Diff Count K/uL K/uL [facility] (Lab): 104 [facility] Normal Red Blood 5.16 3.80-5.2 Final [place] Count M/uL 0 M/uL [facility] (Lab): [address] [place] [address] Normal Hemoglobin 14.4 10.5-15. Final [place] g/dL 7 g/dL [facility] (Lab): [address] [place] [address] Normal Hematocrit 45.2 % 34.0-50. Final [place] 0 % [facility] (Lab): [address] [place] [address] Normal Mean 87.6 fL 78-98 fL Final [place] [facility] (Lab): [address] [place] [address] Normal Mean 27.9 pg 26.2-33. Final [place] Corpuscular 4 pg [facility] Hemoglobin [facility] (Lab): [address] [place] [address] Normal Mean 31.8 31.5-36. Final [place] Corpuscular g/dL 2 g/dL [facility] HGB [facility] (Lab): [address] [place] [address] Normal Red Cell 13.5 % 11.5-15. Final [place] Distribution 5 % [facility] (Lab): [address] [place] [address] Normal Platelet 282 K/uL 137-338 Final [place] Count K/uL [facility] (Lab): [address] [place] [address] Low Mean Platelet 5.8 fL 8.4-11.8 Final [place] Volume fL [facility] (Lab): [address] [place] [address] Normal Neutrophils % 64.4 % 44.4-80. Corrected [place] 1 % [facility] (Lab): [address] [place] [address] Normal Lymphocyte% 24.8 % 10.0-50. Final [place] 0 % [facility] (Lab): [address] [place] [address] Normal [place] % 7.2 % 3.6-12.0 Final [place] % [facility] (Lab): [address] [place] [address] Normal Eos % 2.0 % 0.0-5.4 Final [place] % [facility] (Lab): [address] [place] [address] High Basophil % 1.6 % 0.0-0.79 Final [place] % [facility] (Lab): [address] [place] [address] 02/04/2019 PT/INR Low Prothrombin 10.1 10.3-12. Final [place] Time seconds 3 [facility] (Lab): [address] [place] [address] Normal Inr 0.92 Final [place] [facility] (Lab): [address] [place] [address] 02/04/2019 Partial Normal Partial 28.2 22.5-37. Final [place] Thromboplastin Thromboplastin seconds 0 [facility] Time Time [facility] (Lab): [address] [place] [address] 02/04/2019 BMP, Serum or High Glucose 116 74-106 Final [place] Plasma mg/dL mg/dL [facility] (Lab): [address] [place] [address] Normal Blood Urea 18 mg/dL 6-20 Final [place] Nitrogen mg/dL [facility] (Lab): [address] [place] [address] Low Osmolality 279 280-300 Final [place] Calculated, [facility] Serum [facility] (Lab): [address] [place] [address] High Creatinine 1.2 0.50-0.9 Final [place] mg/dL 0 mg/dL [facility] (Lab): [address] [place] [address] Low Glomerular 46.14 Final [place] Filtration [facility] (Lab): [address] [place] [address] Normal BUN/creatinin 15.0 12-20 Final [place] e Ratio [facility] (Lab): [address] [place] [address] Normal Sodium Level 138 135-145 Final [place] mmol/L mmol/L [facility] (Lab): [address] [place] [address] Normal Potassium 4.2 3.5-5.2 Final [place] Level mmol/L mmol/L [facility] (Lab): [address] [place] [address] Normal Chloride 100 98-108 Final [place] Level mmol/L mmol/L [facility] (Lab): [address] [place] [address] Normal Co2 27 21-32 Final [place] mmol/L mmol/L [facility] (Lab): [address] [place] [address] Normal Anion Gap 15.2 12-20 Final [place] mEq/L mEq/L [facility] (Lab): [address] [place] [address] Normal Calcium Level 10.0 8.6-10.0 Final [place] mg/dL mg/dL [facility] (Lab): [address] [place] [address] Surgical No observation [place] Pathology Study recorded. [facility]: [address] [place] [address] Allergies Code Code System Name Reaction Severity Status Onset 182426 RxNorm Benadryl Active 083193 RxNorm Demerol Active 20270816 RxNorm Diflucan Hives [...] Wrist Active 12/17/2018 Skin Lesion Active 02/19/2019 Nocturnal Muscle Spasm Active 02/28/2019 Excessive Sweating Active 02/28/2019 Procedures Date Name Performed by 11/30/2017 Exploration of Kidney Information not available Remove Tonsils and Adenoids Information not available Ankle Arthroscopy/surgery Information not available Exploration of Kidney Information not available Hysterectomy/revise Vagina Information not available Vaccine List Vaccine Type Tdap 05/28/20180.5 mL Social History Smoking Status Heavy Tobacco Smoker (1/2 PPD) Past Encounters 02/28/2019 Nocturnal Muscle Spasm; Excessive Sweating Dylan De Luna MD: [address], [address], [place] [address], Ph. [phone] 02/20/2019 Polyp of Vocal Cord; Hoarse; Smoker Geoff Villarreal MD: [address], [address], [place] [address], Ph. 02/19/2019 Skin Lesion; Complication of Anesthesia; Type 2 Diabetes Mellitus without Complication Dylan De Luna MD: [address] [place] [address], [address], [place] [address], Ph. History of Present Illness Note: CC spontaneous jerking<div>hpi has had problems for some time wakes her at night</div><div>CC profuse sweating </div><div >hpi spontaneous sx</div><div>ros</div><div>gen above </div><div>cv neg</div><div>resp neg</div><div& gt;neuro above</div><div>endocrine above</div>Review of Systems: ROS as noted in the HPI Review of Systems None recorded. Physical Exam Notes: consult
--- OUTSIDE RECORDS SUMMARY | 2019-06-26 19:57 | XMS REPORT | Encounter Summary ---
:1960 Author Care Team Providers Name Role Phone Dylan De Luna MD Primary Care Provider [phone] Geoff Villarreal Thaw Shed Heater Tender [phone] Nesha Vogt MD Rolled Gold Plater [phone] Reason for Visit POST OP Instructions 1. Polyp of vocal cord 2. Hoarse speech therapy referral 3. Smoker Discussion Note: None recorded.Patient educational handouts: No information available. Plan of Care Patient Instructions Patient discharged with the following instructions per Dr. Villarreal Sending for speech therapy twice a week for 1 month Follow up in 3 months for fibertopic laryngoscopy If any other problem patient is to call the office Patient verbalized understanding the instructions given along with my office Reminders Provider Appointments Endoscopy Geoff Villarreal MD 05/23/2019 10:30AM Lab None recorded. Referral Speech [facility] Referral 02/20/2019 [facility] (Physical Therapy) Procedures None recorded. Surgeries None recorded. Imaging [...] BMI Blood Pressure 5 ft 7 in 270.3 lbs 42.3 kg/m2 120/81 mm[Hg] Lab Results Date Name Specimen Result Interpretation Description Value Range Status Address 02/11/2019 Surgical Study Report Final [place] Pathology Study [facility] (Lab): [address] [facility] 02/04/2019 CBC W/ Auto Normal White Blood 11.0 4.0-11.5 Final [place] Diff Count K/uL K/uL [facility] (Lab): [address] [place] [address] Normal Red Blood 5.16 3.80-5.2 Final [place] Count M/uL 0 M/uL [facility] (Lab): [address] [place] [address] Normal Hemoglobin 14.4 10.5-15. Final [place] g/dL 7 g/dL [facility] (Lab): [address] [place] [address] Normal Hematocrit 45.2 % 34.0-50. Final [place] 0 % [facility] (Lab): [address] [place] [address] Normal Mean 87.6 fL 78-98 fL Final [place] Corpuscular [facility] Volume [facility] (Lab): [address] [place] [address] Normal Mean 27.9 pg 26.2-33. Final [place] Corpuscular 4 pg [facility] Hemoglobin [facility] (Lab): [address] [place] [address] Normal Mean 31.8 31.5-36. Final [place] Corpuscular g/dL 2 g/dL [facility] H[facility] (Lab): [address] [place] [address] Normal Red Cell 13.5 % 11.5-15. Final [place] Distribution 5 % [facility] (Lab): [address] [place] [address] Normal Platelet 282 K/uL 137-338 Final [place] Count K/uL [facility] (Lab): [address] [place] [address] Low Mean Platelet 5.8 fL 8.4-11.8 Final [place] Volume fL [facility] (Lab): [address] [place] [address] Normal Neutrophils % 64.4 % 44.4-80. Corrected [place] 1 % [facility] (Lab): [address] [place] [address] Normal Lymphocyte% 24.8 % 10.0-50. Final [place] 0 % [facility] (Lab): [address] [place] [address] Normal [place] % 7.2 % 3.6-12.0 Final [place] % [facility] (Lab): [address] [place] [address] Normal Eos % 2.0 % 0.0-5.4 Final [place] % [facility] (Lab): [address] [place] [address] High Basophil % 1.6 % 0.0-0.79 Final [place] % [facility] (Lab): [address] [place] [address] 02/04/2019 PT/INR Low Prothrombin 10.1 10.3-12. Final [place] Time seconds 3 [facility] (Lab): [address] [place] [address] Normal Inr 0.92 Final [place] [facility] (Lab): [address] [place] [address] 02/04/2019 Partial Normal Partial 28.2 22.5-37. Final [place] Thromboplastin Thromboplastin seconds 0 [facility] Time Time [facility] (Lab): [address] [place] [address] 02/04/2019 BMP, Serum or High Glucose 116 74-106 Final [place] Plasma mg/dL mg/dL [facility] (Lab): [address] [place] [address] Normal Blood Urea 18 mg/dL 6-20 Final [place] Nitrogen mg/dL [facility] (Lab): [address] [place] [address] Low Osmolality 279 280-300 Final [place] Calculated, [facility] (Lab): [address] [place] [address] High Creatinine 1.2 0.50-0.9 Final [place] mg/dL 0 mg/dL [facility] (Lab): [address] [place] [address] Low Glomerular 46.14 Final [place] Filtration [facility] (Lab): [address] [place] [address] Normal BUN/creatinin 15.0 12-20 Final [place] e Ratio [facility] (Lab): [address] [place] [address] Normal Sodium Level 138 135-145 Final [place] mmol/L mmol/L [facility] (Lab): [address] [place] [address] Normal Potassium 4.2 3.5-5.2 Final [place] Level mmol/L mmol/L [facility] (Lab): [address] [place] [address] Normal Chloride 100 98-108 Final [place] Level mmol/L mmol/L [facility] (Lab): [address] [place] [address] Normal Co2 27 21-32 Final [place] mmol/L mmol/L [facility] (Lab): [address] [place] [address] Normal Anion Gap 15.2 12-20 Final [place] mEq/L mEq/L [facility] (Lab): [address] [place] [address] Normal Calcium Level 10.0 8.6-10.0 Final [place] mg/dL mg/dL [facility] (Lab): [address] [place] [address] Surgical No observation [place] Pathology Study recorded. [facility]: [address] [place] [address] Allergies Code Code System Name Reaction Severity [...] Hoarse; Smoker Geoff Villarreal MD: [address], [address], [place] [address], Ph. 02/19/2019 Skin Lesion; Complication of Anesthesia; Type 2 Diabetes Mellitus without Complication Dylan eD Luna MD: [address], [address], [place] [address], Ph. [phone] 01/24/2019 Hoarse; Choking; Polyp of Vocal Cord; Smoker; Dysphagia; Sinusitis; Deviated Nasal Septum; Hypertrophy of Nasal Turbinates; Hearing Loss; Otitis Externa; Tinnitus; Chronic Obstructive Lung Disease Geoff Villarreal MD: [address] [place] [address], [address], [place] [address], Ph. History of Present Illness None recorded. Review of Systems ENT ROS Reported By: Patient ENMT: ENMT: sore throat, hoarseness; post op visit microlaryngoscopy with stripping of vocal cords and esophagoscopy Physical Exam None recorded.
--- OUTSIDE RECORDS SUMMARY | 2019-06-26 19:58 | XMS REPORT | Encounter Summary ---
:1960 Author Care Team Providers Name Role Phone Dylan De Luna MD Primary Care Provider [phone] Geoff Villarreal Bonding Molder [phone] Nesha Vogt MD Family Program Specialist [phone] Reason for Visit Follow Up Visit Instructions 1. Transient cerebral ischemia transient ischemic attack: care instructions US, doppler, arterial 2. Type II diabetes mellitus uncontrolled type 2 diabetes: care instructions microalbumin, urine hemoglobin A1c, QN, blood lipid panel, serum CMP, serum or plasma Discussion Note: None recorded. Plan of Care Reminders Provider Appointments Endoscopy 05/23/2019 Geoff Villarreal, 10:30AM Return to on or around Dylan De Luna MD Office 06/14/2019 Lab 06/14/2019 [place] Microalbumin, Urine [facility] (Labs) (Xray) Hemoglobin 06/14/2019 [place] a1C, QN, Blood [facility] (Labs) (Xray) Lipid Panel, 06/14/2019 [place] Serum [facility] (Labs) (Xray) CMP, Serum 06/14/2019 [place] or Plasma [facility] (Labs) (Xray) Referral None recorded. Procedures None recorded. Surgeries None recorded. Imaging US, Doppler, 05/14/2019 [place] Arterial [facility] (Scheduling) Medications Name Start Date Anoro Ellipta [...] in 279 lbs 16 oz 43.9 kg/m2 164/96 mm[Hg] Lab Results None recorded. Allergies Code [...] Spasm Active 02/28/2019 Excessive Sweating Active 02/28/2019 Transient Cerebral Ischemia Active 05/14/2019 Procedures Date Name Performed by 11/30/2017 Exploration of Kidney Information not available Remove Tonsils and Adenoids Information not available Ankle Arthroscopy/surgery Information not available Exploration of Kidney Information not available Hysterectomy/revise Vagina Information not available 05/14/2019 US, Doppler, Arterial [facility] ( Scheduling) [address] [place] [address] (Work Place) Vaccine List Vaccine Type Tdap 05/28/20180.5 mL Social History Tobacco Smoking Status Heavy Tobacco Smoker (1/2 PPD) Past Encounters 05/14/2019 Transient Cerebral Ischemia; Type II Diabetes Mellitus Uncontrolled Dylan De Luna MD: [address] [place] [address] [address], [place] [address], Ph. History of Present Illness Note: CC poss TIA<div>hpi pt had an eye procedure 2 wks ago a wk later developed loss of vision in the left eye lateral visual field that returned spontaneously eye dr stated she might have had a tia and recommended doppler< /div><div>CC uncontrolled DM</div><div>hpi pt gaining wt and non compliant</div><div>ros</div><div>gen above</ div><div>resp neg</div><div>cv stable</div><div&gt ;heent above</div>Review of Systems: ROS as noted in the HPI Review of Systems None recorded. Physical Exam Dr. De Luna Brief Adult Exam - M/F Reported By: Patient Constitutional: General Appearance: well-developed, obese. Level of Distress: NAD. Ambulation: ambulating normally ENMT: Ears: no lesions on external ear, EACs clear, TMs clear, TM mobility normal. Nose: nares patent, nasal passages clear. Oropharynx: moist mucous membranes, no erythema, no exudates, tonsils not enlarged Lungs: Auscultation: breath sounds normal, good air movement, CTA except as noted, no wheezing, no rales/crackles, no rhonchi Cardiovascular: Heart Auscultation: RRR, no rubs, no gallops. Neck vessels: no carotid bruits
--- OUTSIDE RECORDS SUMMARY | 2019-06-26 19:58 | XMS REPORT | Summary of Care ---
:1960 Author Organization [facility] Address [address] [place] [address] Care Team Providers Name Role Phone Dylan De Luna Primary Care Provider Reason for Visit Reason Comments Refill Request Encounter Details Date Type Department Care Team Description 04/02/2019 Refill [facility] Endocrinology- hCadd Vicente MD Refill Request [address] Professional Office [address] Lowry [phone] [address] [place] [address] Allergies Active Allergy Reactions Severity Noted Date Comments Miconazole Nitrate Other - See comments High 09/18/2018 Patient states she cannot have any Anti fungal medication unless given via IV Diphenhydramine Hcl Anaphylaxis High 09/18/2018 Meperidine Hcl Other - See comments High 09/18/2018 Patient states she becomes very aggressive Morphine Other - See comments High 09/18/2018 Patient states she becomes very aggressive documented as of this encounter (statuses as of 04/02/2019) Medications Medication Sig Dispensed Refills Start Date End Date Status nebivolol (BYSTOLIC) Take 10 mg 0 Active 10 mg tablet by mouth daily. escitalopram oxalate Take 20 mg 0 Active 20 mg tablet by mouth daily. montelukast 10 mg Take 10 mg 0 Active tablet by mouth. bupropion HCl Take by 0 Active (WELLBUTRIN ORAL) mouth. metformin ER 750 mg Take 1 30 tablet 4 12/18/2018 Active 24 hr tablet by tabletIndications: mouth daily Uncontrolled type 2 with diabetes mellitus breakfast. with hyperglycemia dulaglutide inject 0.75 2 mL 4 12/18/2018 Active (TRULICITY) 0.75 mg under the mg/0.5 mL skin weekly. PnIjIndications: Uncontrolled type 2 diabetes mellitus with hyperglycemia ezetimibe 10 mg Take 1 30 tablet 4 12/18/2018 Active tabletIndications: tablet by Mixed hyperlipidemia mouth daily. Lancets (MICROLET Use as 300 Each 1 04/02/2019 Active LANCET) Misc directed, TID, DX:E11.9 blood sugar Use as 300 Strip 1 04/02/2019 Active diagnostic (CONTOUR directed, NEXT TEST STRIPS) TID, strip DX:E11.9 CONTOUR NEXT TEST Use as 300 Strip 1 09/18/2018 04/02/2019 Discontinued STRIPS strip directed, TID, DX:E11.9 Lancets (MICROLET Use as 300 Each 1 09/18/2018 04/02/2019 Discontinued LANCET) Misc directed, TID, DX:E11.9 documented as of this encounter (statuses as of 04/02/2019) Active Problems Not on filedocumented as of this encounter (statuses as of 04/02/2019) Social History Tobacco Use Types Packs/Day Years Used Date Current Every Day Smoker Smokeless Tobacco: Never Used Alcohol Use Drinks/Week oz/Week Comments No Sex Assigned at Date Recorded Not on file Job Start Date Occupation Industry Not on file Not on file Not on file Travel History Travel Start Travel End No recent travel history available. documented as of this encounter Last Filed Vital Signs Not on filedocumented in this encounter Plan of Treatment Date Type Specialty Care Team Description 07/19/2019 Office Visit Endocrinology Diabetes & [place] Metabolism [facility] E [facility] [address] [place] [address] [id number] Health Maintenance Due Date Last Done Comments HEPATITIS C (HCV) SCREEN 1960 PNEUMOCOCCAL 0-64 YEARS COMBINED 1966 SERIES (1 of 1 - PPSV23) CREATININE (SERUM) 1970 EYE EXAM 1970 DTaP,Tdap,and Td Vaccines (1 - 1979 Tdap) PAP SMEAR 1981 MAMMOGRAM 2000 COLONOSCOPY 2010 Zoster Recombinant Vaccine 2010 (SHINGRIX) (1 of 2) LUNG CANCER SCREEN: Recommended 2015 for age 55-80 with 30 + pack year history INFLUENZA VACCINE (#1) 2019 HgA1C 06/20/2019 12/18/2018, 09/18/2018 LDL-C 09/21/2019 09/21/2018 URINE MICROALBUMIN 09/21/2019 09/21/2018 FOOT EXAM 12/19/2019 12/18/2018, 12/18/2018, 09/18/2018, Additional history exists documented as of this encounter Results Not on filedocumented in this encounter Insurance Payer Benefit Plan / Subscriber ID Effective Dates Phone Address Type Group BCBS OF HIM BCBS BLUE [id number] 2018-Aicha [phone] [address] [facility] [id number] [place] [address] documented as of this encounter
--- OUTSIDE RECORDS SUMMARY | 2019-06-26 19:58 | XMS REPORT | Encounter Summary ---
:1960 Author Care Team Providers Name Role Phone Dylan De Luna MD Primary Care Provider [phone] Geoff Villarreal Head Custodian [phone] Nesha Vogt MD Motor And Generator Assembler [phone] Reason for Visit Follow Up Visit Instructions 1. Polyp of vocal cord 2. Hoarse 3. Smoker Discussion Note: None recorded.Patient educational handouts: No information available. Plan of Care Patient Instructions Patient discharged with the following instructions per Dr. Villarreal Follow up in 6 month repeat fiberoptic laryngoscopy If any other problem patient is to call the office Patient verbalized understanding the instructions given along with my office Reminders Provider Appointments Endoscopy Geoff Villarreal MD 12/19/2019 10:30AM Lab None recorded. Referral None recorded. Procedures [...] BMI Blood Pressure 5 ft 7 in 276.8 lbs 43.4 kg/m2 150/78 mm[Hg] Results Lab Results None recorded. Allergies Code Code [...] Information not available 05/14/2019 US, Doppler, Arterial [facility] ( Scheduling) [address] [place] [address] (Work Place) 05/20/2019 US, Duplex, Carotid Artery [facility] ( Cardiopulmonary) [address] [place] [address] (Work Place) Vaccine List Vaccine Type Tdap 05/28/20180.5 mL Social History Tobacco Smoking Status Heavy Tobacco Smoker (1/2 PPD) Past Encounters 05/23/2019 Polyp of Vocal Cord; Hoarse; Smoker Geoff Villarreal MD: [address], [address], [place] [address], Ph. 05/14/2019 Transient Cerebral Ischemia; Type II Diabetes Mellitus Uncontrolled Dylan De Luna MD: [address], [place] [address], Ph. History of Present Illness Review of Systems: ROS as noted in the [facility] Review of Systems ENT ROS Reported By: Patient Constitutional: Constitutional: no constitutional symptoms Eyes: Eyes: no eye symptoms ENMT: ENMT: sore throat, hoarseness Physical Exam ENT Exam Nicola Focus-No Stethoscope Reported By: Patient Constitutional: General [...]
--- OUTSIDE RECORDS SUMMARY | 2019-06-26 19:58 | XMS REPORT | Summary of Care ---
:1960 Author Organization [facility] - Health Address [address] [place] [address] Care Team Providers Name Role Phone Dylan De Luna Primary Care Provider Encounter Details Date Type Department Care Team Description 02/28/2019 Orders Only [facility] Doctor Unassigned, No [address] [facility] Name [place] [id number] [place] [address] Allergies Active Allergy Reactions Severity Noted Date [...] as of this encounter (statuses as of 03/21/2019) Medications Medication Sig Dispensed Refills Start Date End Date Status nebivolol (BYSTOLIC) 10 Take 10 mg by 0 Active mg tablet mouth daily. escitalopram oxalate 20 Take 20 mg by 0 Active mg tablet mouth daily. montelukast 10 mg tablet Take 10 mg by 0 Active mouth. CONTOUR NEXT TEST STRIPS Use as directed, 300 Strip 1 09/18/2018 Active strip TID, DX:E11.9 Lancets (MICROLET Use as directed, 300 Each 1 09/18/2018 Active LANCET) Misc TID, DX:E11.9 bupropion HCl Take by mouth. 0 Active (WELLBUTRIN ORAL) metformin ER 750 mg 24 Take 1 tablet by 30 tablet 4 12/18/2018 Active hr tabletIndications: mouth daily with Uncontrolled type 2 breakfast. diabetes mellitus with hyperglycemia dulaglutide (TRULICITY) inject 0.75 mg 2 mL 4 12/18/2018 Active 0.75 mg/0.5 mL under the skin PnIjIndications: weekly. Uncontrolled type 2 diabetes mellitus with hyperglycemia ezetimibe 10 mg Take 1 tablet by 30 tablet 4 12/18/2018 Active tabletIndications: Mixed mouth daily. hyperlipidemia documented as of this encounter (statuses as of 03/21/2019) Active Problems Not on filedocumented as of this encounter (statuses as of 03/21/2019) Social History Tobacco Use Types Packs/Day Years [...] Visit Endocrinology Diabetes & [place] Metabolism [facility] E [facility] [address] [place], [place] [id number] Health Maintenance Due Date Last Done Comments [...] 30 + pack year history INFLUENZA VACCINE 04/14/2019 HgA1C 06/20/2019 12/18/2018, 09/18/2018 LDL-C 09/21/2019 09/21/2018 URINE MICROALBUMIN 09/21/2019 09/21/2018 FOOT EXAM 12/19/2019 12/18/2018, 12/18/2018, 09/18/2018, Additional history exists documented as of this encounter Procedures Procedure Name Priority Date/Time Associated Diagnosis Comments INSURANCE CORRESPONDENCE Routine 02/28/2019 12:01 AM CDT documented in this encounter Results Not on filedocumented in this encounter Insurance Payer Benefit Plan / Subscriber ID Effective Dates Phone Address Type Group BCBS OF HIM BCBS BLUE [id number] 2018-Aicha [phone] [address] [facility] [id number] [place] [address] documented as of this encounter
--- OUTSIDE RECORDS SUMMARY | 2019-06-26 19:58 | XMS REPORT | Summary of Care ---
:1960 Author Organization [facility] - Health Address [address] [place] [address] Care Team Providers Name Role Phone Dylan De Luna Primary Care Provider Encounter Details Date Type Department Care Team Description 03/06/2019 Orders Only [facility] Doctor Unassigned, No 301 [facility] Name [place] [phone] [place] [address] Allergies Active Allergy Reactions Severity Noted Date [...] as of this encounter (statuses as of 03/12/2019) Medications Medication Sig Dispensed Refills Start Date [...] as of this encounter (statuses as of 03/12/2019) Active Problems Not on filedocumented as of this encounter (statuses as of 03/12/2019) Social History Tobacco Use Types Packs/Day Years [...] Visit Endocrinology Diabetes & [place] Metabolism [facility] [address] [facility] [address] [place], [place] [id number] Health Maintenance Due Date Last Done Comments [...] Procedure Name Priority Date/Time Associated Diagnosis Comments REFERRAL- Routine 03/06/2019 12:01 AM CDT REQUEST/RESPONSE documented in this encounter Results Not on filedocumented in this encounter Insurance Payer Benefit Plan / Subscriber ID Effective Dates Phone Address Type Group BCBS OF HIM BCBS [place] [id number] 2018-Aicha [phone] [address]MO [facility], [place] t [id number] [place] [address] documented as of this encounter
[2019-06-26] MEDS ORDERED: ASPIRIN 81 MG CHEWABLE TABLET ONE (21:37)
[2019-06-26] MEDS ORDERED: NA CHLORIDE 0.9% 1,000 ML ONE (21:37)
[2019-06-26 21:49] LABS: Absolute Lymphocytes (CBC) 3.6 K/uL (0.7-4.9); Basophils % 0.8 % (0-1.3); Hematocrit 42.6 % (36.0-45.0); Lymphocytes % 37.3 % (15.3-44.8); MPV 7.1 fL (7.6-11.3); RBC Red Blood Cell Count 4.96 M/uL (3.86-4.86)
[2019-06-26 21:51] LABS: Protime INR 0.92
[2019-06-26 21:57] LABS: Urine Blood NEGATIVE (NEG); Urine Glucose NEGATIVE (NEG); Urine Protein NEGATIVE (NEG); Urine pH 5.5 (5.0-7.0)
[2019-06-26] MEDS ORDERED: ACETAMINOPHEN 500 MG TAB ONE (21:58)
[2019-06-26 22:11] LABS: ALT/SGPT 28 U/L (12-78); AST/SGOT 19 U/L (15-37); Albumin 3.6 g/dL (3.4-5.0); Alkaline Phosphatase 77 U/L (45-117); BUN Blood Urea Nitrogen 20 mg/dL (7-18); Bicarbonate 27 mmol/L (21-32); Bilirubin Direct < 0.1 mg/dL (0-0.2); Bilirubin Total 0.2 mg/dL (0.2-1.0); Glucose Level 103 mg/dL (74-106); Lipase 158 U/L (73-393); NT PRO-BNP 85 pg/mL (<125); Potassium 3.9 mmol/L (3.5-5.1); Sodium Level 140 mmol/L (136-145); Troponin (Emerg Dept Use Only) < 0.02 ng/mL (0.0-0.045)
--- NOTE | 2019-06-26 22:49 | EDPHYS ---
Physician Documentation [facility] Name: Ankita Todd Age: 58 yrs Sex: Female : 1960 Arrival Date: 06/26/2019 Time: 19:58 Bed 17 Private MD: ED Physician He Jamison HPI: 06/26 21:54 This 58 yrs old Female presents to ER via Ambulatory with complaints of Chest flash Pain. 21:54 The patient or guardian reports chest pain that is located primarily in the substernal flash area, anterior chest wall, bilaterally. Onset: today. The pain radiates to chest. Associated signs and symptoms: The patient has no apparent associated signs or symptoms. The chest pain is described as aching. Modifying factors: The symptoms are alleviated by nothing. the symptoms are aggravated by nothing. Severity of pain: At its worst the pain was mild in the emergency department the pain is unchanged. The patient has experienced similar episodes in the past, a few times. Historical: - Allergies: 20:04 Benadryl; aj1 20:04 Morphine (Doesn't Work); aj1 20:04 oral antifungals; aj1 20:04 Diflucan; aj1 20:04 Demerol; aj1 20:04 tramadol; aj1 20:04 Nitrofurantoin Macrocrystal; aj1 - Home Meds: 20:04 metformin 500 mg Oral Tb24 1 tab once daily [Active]; Bystolic 5 mg Oral tab 1 tab once aj1 daily [Active]; Trulicity 1.5 mg/0.5 mL subcutaneous pnij 0.5 mL every 7 days [Active]; - PMHx: 20:04 Anxiety; Colitis; Diabetes - NIDDM; High Cholesterol; Hypertension; kidney stent; Sleep aj1 Apnea; - PSHx: 20:04 left kidney removed; aj1 - Immunization history:: Flu vaccine is not up to date. - Social history:: Smoking status: Patient uses tobacco products, smokes one-half pack cigarettes per day. - Ebola Screening: : Patient denies travel to an Ebola-affected area in the 21 days before illness onset. - Family history:: not pertinent. ROS: 21:54 Constitutional: Negative for fever, chills, and weight loss, Eyes: Negative for injury, flash pain, redness, and discharge, ENT: Negative for injury, pain, and discharge, Neck: Negative for injury, pain, and swelling, Respiratory: Negative for shortness of breath, cough, wheezing, and pleuritic chest pain, Abdomen/GI: Negative for abdominal pain, nausea, vomiting, diarrhea, and constipation, Back: Negative for injury and pain, : Negative for injury, bleeding, discharge, and swelling, MS/Extremity: Negative for injury and deformity, Skin: Negative for injury, rash, and discoloration, Neuro: Negative for headache, weakness, numbness, tingling, and seizure, Psych: Negative for depression, anxiety, suicide ideation, homicidal ideation, and hallucinations, Allergy/Immunology: Negative for hives, rash, and allergies, Endocrine: Negative for neck swelling, polydipsia, polyuria, polyphagia, and marked weight changes, Hematologic/Lymphatic: Negative for swollen nodes, abnormal bleeding, and unusual bruising. 21:54 Cardiovascular: Positive for chest pain, with cough. Exam: 21:54 Constitutional: This is a well developed, well nourished patient who is awake, alert, flash and in no acute distress. Head/Face: Normocephalic, atraumatic. Eyes: Pupils equal round and reactive to light, extra-ocular motions intact. Lids and lashes normal. Conjunctiva and sclera are non-icteric and not injected. Cornea within normal limits. Periorbital areas with no swelling, redness, or edema. ENT: Nares patent. No nasal discharge, no septal abnormalities noted. Tympanic membranes are normal and external auditory canals are clear. Oropharynx with no redness, swelling, or masses, exudates, or evidence of obstruction, uvula midline. Mucous membranes moist. Neck: Trachea midline, no thyromegaly or masses palpated, and no cervical lymphadenopathy. Supple, full range of motion without nuchal rigidity, or vertebral point tenderness. No Meningismus. Chest/axilla: Normal chest wall appearance and motion. Nontender with no deformity. No lesions are appreciated. Cardiovascular: Regular rate and rhythm with a normal S1 and S2. No gallops, murmurs, or rubs. Normal PMI, no JVD. No pulse deficits. Respiratory: Lungs have equal breath sounds bilaterally, clear to auscultation and percussion. No rales, rhonchi or wheezes noted. No increased work of breathing, no retractions or nasal flaring. Abdomen/GI: Soft, non-tender, with normal bowel sounds. No distension or tympany. No guarding or rebound. No evidence of tenderness throughout. Back: No spinal tenderness. No costovertebral tenderness. Full range of motion. Skin: Warm, dry with normal turgor. Normal color with no rashes, no lesions, and no evidence of cellulitis. MS/ Extremity: Pulses equal, no cyanosis. Neurovascular intact. Full, normal range of motion. Neuro: Awake and alert, GCS 15, oriented to person, place, time, and situation. Cranial nerves II-XII grossly intact. Motor strength 5/5 in all extremities. Sensory grossly intact. Cerebellar exam normal. Normal gait. Psych: Awake, alert, with orientation to person, place and time. Behavior, mood, and affect are within normal limits. Vital Signs: 20:04 BP 176 / 107; Pulse 76; Resp 18; Temp 97.3; Pulse Ox 95% on R/A; Weight 122.47 kg (R); aj1 Height 5 ft. 7 in. (170.18 cm) (R); Pain 7/10; 21:00 BP 155 / 75; Pulse 80; Resp 17; Pulse Ox 98% ; Pain 7/10; rr5 22:00 BP 143 / 81; Pulse 71; Resp 16; Pulse Ox 100% ; rr5 22:30 BP 130 / 83; Pulse 68; Resp 15; Pulse Ox 99% ; Pain 7/10; rr5 23:02 BP 142 / 81; Pulse 79; Resp 19; Pulse Ox 96% ; Pain 8/10; rr5 06/27 00:00 BP 141 / 75; Pulse 70; Resp 16; Pulse Ox 98% on R/A; Pain 8/10; rr5 00:46 BP 134 / 86; Pulse 75; Resp 19; Temp 97.8; Pulse Ox 97% on R/A; Pain 7/10; rr5 01:44 BP 141 / 76; Pulse 62; Resp 17; Temp 97.9; Pulse Ox 99% on R/A; rr5 06/26 20:04 Body Mass Index 42.29 (122.47 kg, 170.18 cm) [facility] MDM: 06/26 21:18 Patient medically screened. [facility] 21:57 Data reviewed: vital signs, nurses notes, lab test result(s), EKG, radiologic studies, flash plain films. 06/26 21:18 Order name: Basic Metabolic Panel; Complete Time: 22:45 [facility] 06/26 21:18 Order name: CBC with Diff; Complete Time: 22:45 [facility] 06/26 21:18 Order name: LFT's; Complete Time: 22:45 [facility] 06/26 21:18 Order name: Magnesium; Complete Time: 22:45 [facility] 06/26 21:18 Order name: NT PRO-BNP; Complete Time: 22:45 [facility] 06/26 21:18 Order name: PT-INR; Complete Time: 22:45 [facility] 06/26 21:18 Order name: Troponin (emerg Dept Use Only); Complete Time: 22:45 [facility] 06/26 21:18 Order name: XRAY Chest (1 view) [facility] 06/26 21:18 Order name: Lipase; Complete Time: 22:45 [facility] 06/26 21:18 Order name: Urine Culture [facility] 06/26 21:42 Order name: Urine Dipstick--Ancillary (enter results); Complete Time: 22:45 cm6 06/26 21:10 Order name: ECG strip; Complete Time: 21:10 rr5 06/26 21:18 Order name: EKG; Complete Time: 21:19 [facility] 06/26 21:18 Order name: Cardiac monitoring; Complete Time: 21:39 [facility] 06/26 21:18 Order name: EKG - Nurse/Tech; Complete Time: 21:22 [facility] 06/26 21:18 Order name: IV Saline Lock; Complete Time: 21:39 [facility] 06/26 21:18 Order name: Labs collected and sent; Complete Time: 21:40 [facility] 06/26 21:18 Order name: O2 Per Protocol; Complete Time: 21:40 [facility] 06/26 21:18 Order name: O2 Sat Monitoring; Complete Time: 21:40 [facility] 06/26 21:18 Order name: Urine Dipstick-Ancillary (obtain specimen); Complete Time: 21:48 [facility] Administered Medications: 21:35 Drug: Aspirin Chewable Tablet 324 mg Route: PO; rr5 22:35 Follow up: Response: No adverse reaction rr5 21:36 Drug: NS 0.9% 1000 ml Route: IV; Rate: 125 ml/hr; Site: right antecubital; rr5 23:25 Follow up: Response: No adverse reaction; IV Status: Infusion continued upon admission; rr5 IV Intake: 250ml 22:00 Drug: Tylenol 1000 mg Route: PO; rr5 23:00 Follow up: Response: No adverse reaction rr5 23:10 Drug: fentaNYL (PF) 25 mcg {Note: rass 0.} Route: IVP; Site: right antecubital; rr5 06/27 00:10 Follow up: Response: No adverse reaction; Pain is decreased rr5 00:10 Follow up: Response: RASS: Alert and Calm (0) rr5 06/26 23:18 Drug: Lovenox 100 mg Route: Sub-Q; Site: right lower abdomen; rr5 06/27 00:20 Follow up: Response: No adverse reaction rr5 Disposition: 06/26/19 22:48 Hospitalization ordered by Cleveland Cameron for Observation. Preliminary diagnosis are Other chest pain, Type 2 diabetes mellitus, Essential (primary) hypertension. - Bed requested for Telemetry/MedSurg (observation). - Status is Observation. rr5 - Condition is Fair. - Problem is new. - Symptoms have improved. UTI on Admission? No Signatures: Dispatcher [employer] EDMS Shanthi Boucher RN RN aj1 Maritza Uribe RN RN dw He Jamison MD MD cha Roque, Raymond RN RN rr5 Corrections: (The following items were deleted from the chart) 00:30 06/26 22:48 Hospitalization Ordered by Cleveland Cameron for Observation. Preliminary dw diagnosis is Other chest pain; Type 2 diabetes mellitus; Essential (primary) hypertension. Bed requested for Telemetry/MedSurg (observation). Status is Observation. Condition is Fair. Problem is new. Symptoms have improved. UTI on Admission? No. flash 06/27 01:45 00:30 06/26/2019 22:48 Hospitalization Ordered by Cleveland Cameron for Observation. rr5 Preliminary diagnosis is Other chest pain; Type 2 diabetes mellitus; Essential (primary) hypertension. Bed requested for Telemetry/MedSurg (observation). Status is Observation. Condition is Fair. Problem is new. Symptoms have improved. UTI on Admission? No. dw
--- NOTE | 2019-06-26 22:49 | ER ---
Nurse's Notes [facility] Name: Ankita Todd Age: 58 yrs Sex: Female : 1960 Arrival Date: 06/26/2019 Time: 19:58 Bed 17 Private MD: Diagnosis: Other chest pain;Type 2 diabetes mellitus;Essential (primary) hypertension Presentation: 06/26 19:59 Presenting complaint: Patient states: "My chest feels like theres an elephant sitting aj1 on it, and my arms feel like they are 1000 pounds, the last time I felt like this it was because my kidney was about to rupture. I've been feeling this way for a couple weeks" Patient reports that her director of security Dr. Ritchie, but has not seen him since 11/2017. Transition of care: patient was not received from another setting of care. Onset of symptoms was 2018. Risk Assessment: Do you want to hurt yourself or someone else? Patient reports no desire to harm self or others. Initial Sepsis Screen: Does the patient meet any 2 criteria? No. Patient's initial sepsis screen is negative. Does the patient have a suspected source of infection? No. Patient's initial sepsis screen is negative. Care prior to arrival: None. 19:59 Method Of Arrival: Ambulatory aj1 19:59 Acuity: BRYAN 3 aj1 Triage Assessment: 20:04 General: Appears in no apparent distress. comfortable, Behavior is calm, cooperative, aj1 appropriate for age. Pain: Complains of pain in chest Pain currently is 7 out of 10 on a pain scale. Neuro: Level of Consciousness is awake, alert, obeys commands, Oriented to person, place, time, situation. Cardiovascular: Reports chest pain, Patient's skin is warm and dry. Respiratory: Airway is patent Respiratory effort is even, unlabored, Respiratory pattern is regular, symmetrical. Historical: - Allergies: 20:04 Benadryl; aj1 20:04 Morphine (Doesn't Work); aj1 20:04 oral antifungals; aj1 20:04 Diflucan; aj1 20:04 Demerol; aj1 20:04 tramadol; aj1 20:04 Nitrofurantoin Macrocrystal; aj1 - Home Meds: 20:04 metformin 500 mg Oral Tb24 1 tab once daily [Active]; Bystolic 5 mg Oral tab 1 tab once aj1 daily [Active]; Trulicity 1.5 mg/0.5 mL subcutaneous pnij 0.5 mL every 7 days [Active]; - PMHx: 20:04 Anxiety; Colitis; Diabetes - NIDDM; High Cholesterol; Hypertension; kidney stent; Sleep aj1 Apnea; - PSHx: 20:04 left kidney removed; aj1 - Immunization history:: Flu vaccine is not up to date. - Social history:: Smoking status: Patient uses tobacco products, smokes one-half pack cigarettes per day. - Ebola Screening: : Patient denies travel to an Ebola-affected area in the 21 days before illness onset. - Family history:: not pertinent. Screenin:00 Abuse screen: Denies threats or abuse. Denies injuries from another. Nutritional rr5 screening: No deficits noted. Tuberculosis screening: No symptoms or risk factors identified. Fall Risk IV access (20 points). Total Del Castillo Fall Scale indicates No Risk (0-24 pts). Assessment: 20:35 General: Appears in no apparent distress. uncomfortable, Behavior is calm, cooperative, rr5 appropriate for age. 20:35 Pain: Complains of pain in chest Pain does not radiate. Pain currently is 8 out of 10 rr5 on a pain scale. Quality of pain is described as pressure, Pain began gradually, Is intermittent. Neuro: Level of Consciousness is awake, alert, obeys commands, Oriented to person, place, time, situation, Appropriate for age. Cardiovascular: Reports chest pain, Capillary refill < 3 seconds Patient's skin is warm and dry. Respiratory: Airway is patent Respiratory effort is even, unlabored, Respiratory pattern is regular, symmetrical. GI: No signs and/or symptoms were reported involving the gastrointestinal system. : Urine is clear. EENT: No signs and/or symptoms were reported regarding the EENT system. Derm: Skin is intact, is healthy with good turgor, Skin temperature is warm. Musculoskeletal: Circulation, motion, and sensation intact. Capillary refill < 3 seconds. 21:30 Reassessment: Patient appears in no apparent distress at this time. Patient is alert, rr5 oriented x 3, equal unlabored respirations, skin warm/dry/pink. awaiting for results. 22:00 Reassessment: Patient appears in no apparent distress at this time. complaints of rr5 headache. ED provider aware with order made and carried out. 23:00 Reassessment: Patient appears in no apparent distress at this time. complaints of low rr5 back pain. pain score 8/10 ed provider aware with order made and carried out. 23:30 Reassessment: Patient appears in no apparent distress at this time. hospitalist at rr5 bedside examining the patient. advised for admission and agreed. 06/27 00:30 Reassessment: Patient appears in no apparent distress at this time. resting eyes closed rr5 breathing spontaneously at room air. no complaints made. 01:41 Reassessment: Patient appears in no apparent distress at this time. Patient is alert, rr5 oriented x 3, equal unlabored respirations, skin warm/dry/pink. send to CT scan for abdomen and pelvis then transfer to room 215. Vital Signs: 06/26 20:04 BP 176 / 107; Pulse 76; Resp 18; Temp 97.3; Pulse Ox 95% on R/A; Weight 122.47 kg (R); aj1 Height 5 ft. 7 in. (170.18 cm) (R); Pain 7/10; 21:00 BP 155 / 75; Pulse 80; Resp 17; Pulse Ox 98% ; Pain 7/10; rr5 22:00 BP 143 / 81; Pulse 71; Resp 16; Pulse Ox 100% ; rr5 22:30 BP 130 / 83; Pulse 68; Resp 15; Pulse Ox 99% ; Pain 7/10; rr5 23:02 BP 142 / 81; Pulse 79; Resp 19; Pulse Ox 96% ; Pain 8/10; rr5 06/27 00:00 BP 141 / 75; Pulse 70; Resp 16; Pulse Ox 98% on R/A; Pain 8/10; rr5 00:46 BP 134 / 86; Pulse 75; Resp 19; Temp 97.8; Pulse Ox 97% on R/A; Pain 7/10; rr5 01:44 BP 141 / 76; Pulse 62; Resp 17; Temp 97.9; Pulse Ox 99% on R/A; rr5 06/26 20:04 Body Mass Index 42.29 (122.47 kg, 170.18 cm) aj1 ED Course: 06/26 19:58 Patient arrived in ED. cf2 20:02 Triage completed. aj1 20:04 Arm band placed on Patient placed in an exam room. aj1 20:30 Patient has correct armband on for positive identification. Placed in gown. Bed in low rr5 position. Call light in reach. documentation manager on. Pulse ox on. NIBP on. 20:50 EKG done, by ED staff, reviewed by He Jamison MD. ds4 20:51 Shakir Mcginnis, RN is Primary Nurse. rr5 21:18 He Jamison MD is Attending Physician. flash 21:33 Inserted saline lock: 20 gauge in right antecubital area, using aseptic technique. ds4 Blood collected. 21:40 Troponin (emerg Dept Use Only) Sent. ds4 21:40 Basic Metabolic Panel Sent. ds4 21:40 PT-INR Sent. ds4 21:40 CBC with Diff Sent. ds4 21:41 LFT's Sent. ds4 21:41 Magnesium Sent. ds4 21:41 NT PRO-BNP Sent. ds4 21:41 Lipase Sent. ds4 21:47 XRAY Chest (1 view) In Process Unspecified. EDMS 22:46 Cleveland Cameron is Hospitalizing Provider. [facility] 06/27 01:39 No provider procedures requiring assistance completed. Patient admitted, IV remains in rr5 place. intact, No redness/swelling at site. Patient maintains SpO2 saturation greater than 95% on room air. 01:[address] via wheelchair. jj2 01:50 CT completed. Patient tolerated procedure well. jj2 Administered Medications: 06/26 21:35 Drug: Aspirin Chewable Tablet 324 mg Route: PO; rr5 22:35 Follow up: Response: No adverse reaction rr5 21:36 Drug: NS 0.9% 1000 ml Route: IV; Rate: 125 ml/hr; Site: right antecubital; rr5 23:25 Follow up: Response: No adverse reaction; IV Status: Infusion continued upon admission; rr5 IV Intake: 250ml 22:00 Drug: Tylenol 1000 mg Route: PO; rr5 23:00 Follow up: Response: No adverse reaction rr5 23:10 Drug: fentaNYL (PF) 25 mcg {Note: rass 0.} Route: IVP; Site: right antecubital; rr5 06/27 00:10 Follow up: Response: No adverse reaction; Pain is decreased rr5 00:10 Follow up: Response: RASS: Alert and Calm (0) rr5 06/26 23:18 Drug: Lovenox 100 mg Route: Sub-Q; Site: right lower abdomen; rr5 06/27 00:20 Follow up: Response: No adverse reaction rr5 Intake: 06/26 23:25 IV: 250ml; Total: 250ml. rr5 Outcome: 22:48 Decision to Hospitalize by Provider. flash 06/27 01:39 Admitted to Med/surg accompanied by tech, via wheelchair, room 215, with chart, Report rr5 called to bowen Condition: stable Instructed on the need for admit. 01:45 Patient left the ED. rr5 Signatures: Dispatcher [employer] EDShanthi Alvarenga, RN RN aj1 He Jamison MD MD cha Jaramillo, Justin jj2 Swanson, Donovan ds4 Shakir Mcginnis RN RN rr5 Francesca Ennis cf2 Corrections: (The following items were deleted from the chart) 06/26 23:26 23:02 BP 142 / 81; Pulse 79bpm; Resp 19bpm; Pulse Ox 96%; rr5 rr5
[2019-06-26] MEDS ORDERED: ENOXAPARIN 100 MG/ML SYR SQ ONE (23:06)
[2019-06-26] MEDS ORDERED: FENTANYL CITR 100 MCG/2 ML ONE (23:12)
--- NOTE | 2019-06-27 00:19 | P.HP ---
Certification for Inpatient Patient admitted to: Observation With expected LOS: <2 Midnights Practitioner: I am a practitioner with admitting privileges, knowledge of patient current condition, hospital course, and medical plan of care. Services: Services provided to patient in accordance with Admission requirements found in Title 42 Section 412.3 of the Code of Federal Regulations Patient History Date of Service: 06/27/19 Reason for admission: Chest pain History of Present Illness: 58-year-old morbidly obese woman with a history of obstructive sleep apnea, hypertension, diabetes mellitus type 2, status post nephrectomy presented emergency department with a complaint of chest pain which per patient has been present for about 1 week, got worse today, up to 8/10 in severity. She stated it was like an elephant sitting on her chest. She denied any diaphoresis. She stated pain was nonradiating, located in the anterior chest. Patient also stated she had similar symptoms at that time she was diagnosed with hydronephrosis and kidney stones requiring nephrectomy. In the ED, initial troponin is negative. Her EKG is negative for any significant ischemic changes. Chest x-ray shows no acute disease. Patient is placed under observation for ACS rule out. Allergies diphenhydramine [From Benadryl] Allergy (Verified 06/27/19 02:01) hallucinate fluconazole [From Diflucan] Allergy (Verified 06/27/19 02:01) Unknown meperidine [From Demerol] Allergy (Verified 06/27/19 02:01) Unknown morphine Allergy (Verified 06/27/19 02:01) Unknown tramadol Allergy (Verified 06/27/19 02:01) Unknown nitrofurantoin [From Macrobid] Adverse Reaction (Verified 06/27/19 02:01) Itching Nitrofuran Allergy (Uncoded 03/02/17 09:12) Unknown Nitrofurantoin Allergy (Uncoded 10/08/17 16:41) Unknown Home Medications: Metformin ER [Glucophage ER*] 500 mg PO DAILY 08/25/18 Nebivolol HCl [Bystolic*] 5 mg PO DAILY 08/25/18 Dulaglutide [Trulicity] 0.75 mg SQ EVERY 7TH DAY 06/27/19 - Past Medical/Surgical History Diabetic: Yes -: Nephrolithiasis -: HTN -: Dyslipidemia -: anxiety -: LEG SURGERY -: kidney stent -: hysterectomy -: Ureter anastomosis with stent placement -: left Nephrectomy - Family History Family History: Reviewed- Non-Contributory - Social History Smoking Status: Never smoker Alcohol use: No CD- Drugs: No Caffeine use: Yes Review of Systems Other: General: No fever, no malaise, no unintentional weight loss. Eyes: No eye discharge, Respiratory: No cough, no shortness of breath. CVS: No palpitation, no lightheadedness. GI: No abdominal pain, no nausea no vomit, no constipation, no diarrhea. Genitourinary: No dysuria, no urinary frequency, no incontinence, no hematuria. Musculoskeletal: No joint pains, or joint swelling, no gait instability. Neurology: No headache, no asymmetric, weakness, no problem with swallowing. Except as documented, all other systems reviewed and negative. Physical Examination - Physical Exam General: Alert, In no apparent distress, Oriented x3 HEENT: Atraumatic, Normocephalic, PERRLA, Mucous membr. moist/pink, Sclerae nonicteric Neck: Supple, JVD not distended, No Thyromegaly Respiratory: Clear to auscultation bilaterally, Normal air movement Cardiovascular: No edema, Normal pulses, Regular rate/rhythm, Normal S1 S2, No murmurs Capillary refill: <2 Seconds Gastrointestinal: Normal bowel sounds, Soft and benign, Non-distended, No tenderness Musculoskeletal: No swelling, No erythema Integumentary: No rashes Neurological: Normal speech, Normal strength at 5/5 x4 extr, Cranial nerves 3- 12 intact - Studies Laboratory Data (last 24 hrs) 06/26/19 21:33: PT 10.9, INR 0.92 06/26/19 21:33: WBC 9.7, Hgb 14.3, Hct 42.6, Plt Count 256 06/26/19 21:33: Sodium 140, Potassium 3.9, BUN 20 H, Creatinine 1.23, Glucose 103, Magnesium 2.0, Total Bilirubin 0.2, AST 19, ALT 28, Alkaline Phosphatase 77 , Lipase 158 Assessment and Plan - Problems (Diagnosis) (1) Chest pain Onset Date: 12/28/15 Current Visit: No Status: Acute Qualifiers: Chest pain type: unspecified Qualified Code(s): R07.9 - Chest pain, unspecified (2) Obstructive sleep apnea Current Visit: Yes Status: Chronic (3) History of nephrolithiasis Current Visit: Yes Status: Chronic (4) Dyslipidemia Onset Date: 08/27/18 Current Visit: No Status: Chronic (5) Morbid obesity with BMI of 40.0-44.9, adult Onset Date: 08/27/18 Current Visit: No Status: Chronic - Plan Place patient under observation. Trend troponin x3 Aspirin Lipitor Nuclear stress test in the a.m. given patient high cardiac risk factors. CT abdomen and pelvis without contrast requested given that she experienced similar symptoms with nephrolithiasis. CPAP at night. Hold metformin and glipizide Manage blood sugar with insulin sliding scale while inpatient. Hold Nebivolol given soft blood pressure. - Advance Directives Does patient have a Living Will: No Does patient have a Durable POA for Healthcare: Yes
[2019-06-27] MEDS ORDERED: NITROGLYCERIN 0.4 MG/TAB SL PRN (01:12)
[2019-06-27] MEDS ORDERED: MORPHINE 4 MG/ML SYR IV PRN (01:12)
[2019-06-27 02:20] VITALS: BMI 43.5
[2019-06-27] MEDS ORDERED: HYDROMORPHONE HCL 0.5 MG/0.5 ML INJ IV PRN (02:31)
[2019-06-27] MEDS ORDERED: INFLUENZA VACCINE (for 3y+) 0.5 ML DOSE IMVAC ONE (06:00)
[2019-06-27 06:13] LABS: Absolute Lymphocytes (CBC) 3.4 K/uL (0.7-4.9); Hematocrit 40.9 % (36.0-45.0); Lymphocytes % 43.5 % (15.3-44.8); MPV 7.2 fL (7.6-11.3); RBC Red Blood Cell Count 4.72 M/uL (3.86-4.86)
[2019-06-27 06:38] LABS: BUN Blood Urea Nitrogen 19 mg/dL (7-18); Bicarbonate 27 mmol/L (21-32); Glucose Level 115 mg/dL (74-106); HDL Cholesterol 31 mg/dL (40-60); LDL Cholesterol, Calculated ND (<130); Potassium 3.8 mmol/L (3.5-5.1); Sodium Level 142 mmol/L (136-145); Troponin I < 0.02 ng/mL (0.0-0.045)
[2019-06-27 07:02] LABS: LDL, Direct 121 mg/dL (100-129)
[2019-06-27] MEDS: INSULIN -REGULAR HUMAN 50 UNIT/0.5 ML ML SQ SCH ×2 (07:30→11:30)
--- NOTE | 2019-06-27 07:56 | RAD REPORT ---
EXAM DESCRIPTION: Wendy Single View06/26/2019 9:46 pm CLINICAL HISTORY: Chest pain COMPARISON: February 2019 FINDINGS: The lungs appear clear of acute infiltrate. The heart is normal size IMPRESSION: No acute abnormalities displayed
[2019-06-27] MEDS ORDERED: REGADENOSON 0.4 MG/5 ML SYR IV ONE (08:11)
--- NOTE | 2019-06-27 08:18 | EKG ---
Test Date: 2019-06-26 Test Time: 20:40:47 State Attorney: MICHEL MEASUREMENT RESULTS: Intervals: Rate: 63 GA: 172 QRSD: 84 QT: 432 QTc: 442 [place]: P: 40 GA: 172 QRS: -20 T: 34 INTERPRETIVE STATEMENTS: Normal sinus rhythm Minimal voltage criteria for LVH, may be normal variant Borderline ECG Compared to ECG 02/12/2019 13:27:57 Left ventricular hypertrophy now present Sinus bradycardia no longer present Electronically Signed On 06-27-19 08:16:00 HAND CANDY CUTTER by Eliecer Hidalgo
--- NOTE | 2019-06-27 08:34 | RAD REPORT ---
EXAM DESCRIPTION: CT - Stone Protocol - 06/27/2019 2:46 am CLINICAL HISTORY: Abdominal pain. COMPARISON: August 2018 TECHNIQUE: Computed axial tomography of the abdomen pelvis was obtained without oral or IV contrast. Lack of IV and oral contrast limits evaluation of solid organs, bowel, and vessels. Coronal reformat mackenzie images were obtained and reviewed. All CT scans are performed using dose optimization technique as appropriate and may include automated exposure control or mA/KV adjustment according to patient size. FINDINGS: Mild right hydronephrosis is unchanged. Right renal calculus is not noted. Right ureteral calculus is not seen. Small calcification within the anterior aspect of the bladder unchanged. Left nephrectomy Fatty liver. Small hepatic cyst The spleen, pancreas and adrenals appear grossly normal Diverticula stem from the colon without evidence of diverticulitis. The appendix appears normal A small umbilical hernia Spondylosis involves lumbar spine resulting in spinal stenosis IMPRESSION: Left nephrectomy Mild right hydronephrosis without change from the prior exam perhaps secondary to a UPJ stricture
[2019-06-27] MEDS ORDERED: ASPIRIN EC 81 MG TAB PO SCH (09:00)
[2019-06-27] MEDS ORDERED: ENOXAPARIN 40 MG/0.4 ML SQ SCH (09:00)
[2019-06-27 09:24] VITALS: O2SAT 96
--- NOTE | 2019-06-27 11:31 | RAD REPORT ---
EXAM DESCRIPTION: NM - Rest Stress Cardiac Imaging - 06/27/2019 11:08 am CLINICAL HISTORY: Chest pain. COMPARISON: 2015 TECHNIQUE: The patient was administered approximately 10mCi of Tc 99m Sestamibi prior to resting SPE CT imaging of the heart. The patient was then administered approximately 30 mCi of Tc 99m Sestamibi f ollowing exercise or pharmacologic stress. Multiplanar SPECT images were reviewed. FINDINGS: There is uniformity of radiotracer uptake involving the entire left ventricular myocardiu m on rest and stress images. Due to patient motion an accurate ejection fraction could not be obtained IMPRESSION: Negative for a myocardial perfusion defect
--- NOTE | 2019-06-27 15:13 | TREADPHA ---
DX: CHEST PAIN, HIGH CORONARY ARTERY DISEASE RISK FACTORS Date of Study: 06/27/19 Ht: 5 7 Wt: 278 lb 0 oz Consulting Physician: KACEY MEDICATIONS: ASPIRIN, LOVENOX, DILAUDID, NOVOLIN-R, NITROSTAT, BYSTOLIC, METFORMIN, HYPERTENSION. HISTORY: NON INSULIN DEPENDENT DIABETES MELLITUS, HYPERTENSION. PHYSICIAL EXAMINATION: RESTING B.P.: 119/77 RESTING H.R.: 55 RESTING EKG: SINUS BRADYCARDIA PROTOCOL: LEXISCAN EXERCISE TIME: 3:30 B.P. AT PEAK STRESS: 137/86 IMPRESSION: LEXISCAN STRESS TEST PERFORMED. CARDIOLITE INJECTED PER PROTOCOL. NO SUPRA VENTRICULAR TACHYCARDIA, NO VENTRICULAR TACHYCARDIA, NO ARRHYTHMIAS NOTED. PATIENT DENIED CHEST PAIN. TOLERATED WELL. PLEASE SEE NUCLEAR MEDICINE REPORT.
[2019-06-27 16:45] VITALS: BP 161/97; TEMP 98.3
--- NOTE | 2019-06-27 23:52 | DS ---
Date of Discharge: 06/27/2019 Procedures: Cardiac stress test, negative for any stress-induced ischemia. Discharge Diagnoses: 1.Chest pain, acute coronary syndrome ruled out. 2.Obstructive sleep apnea. 3.History of nephrolithiasis. 4.Status post solitary kidney. 5.Dyslipidemia. 6.Morbid obesity, BMI 43.5. Hospital Course: Patient is a 58-year-old female with obstructive sleep apnea, hypertension, diabete s, hyperlipidemia, status post nephrectomy as well as morbid obesity, comes in with chest pain. The patient was admitted to the hospital due to her risk factors. Her cardiac enzymes were negative. Li pid panel showed elevated triglycerides 533, cholesterol was 235, HDL was low at 31. Cardiac stress test was obtained due to her chest pain showed no stress-induced ischemia. EKG did not show any acut e ST elevation. The patient's pain improved. She did report some chronic back pain as well. She is scheduled to see Neurology, Dr. Espinosa. I recommended that she have outpatient MRI done to [facility] evaluate her chronic back pain as she does have some lower extremity numbness. Patient likely has radiculopathy. Patient was then cleared for discharge. She was tolerating her diet, ambulating well . No further episodes of chest pain. She was then sent home in a stable condition. CT scan of the abdomen was also done, which did not show any acute changes, showed the left nephrectomy, showed mild right hydronephrosis without change from prior exam, likely secondary to UPJ stricture. Patient has seen Urology in the past and has had a stent placed. Discharge Medications: As per medication reconciliation list. Followup: Follow up with PCP in 2-3 days. Follow up with mathematical physicist in 2 weeks. Have repeat lipi d panel in 3 months and liver enzymes rechecked in 1-2 months. Return to ER for worsening condition. Diet: Heart healthy. Activity: As tolerated. Physical Examination: General: Awake, alert, and oriented x3. Morbidly obese female. CV: S1, S2. Respiratory: Moving air well bilaterally. Abdomen: Abdomen is soft, nontender, nondistended. Positive bowel sounds. Extremities: No clubbing, cyanosis, or edema. Neurologic: Nonfocal. SA/MODL Voice ID: [id number] Report ID: [id number]
== END 2019-06-27 16:26 | disposition home or self-care (01) ==
LOC: ER 19:47 → ERHOLD 06-27 00:50 → 2ND 06-27 01:22
PROVIDERS: ADMIT Internal Medicine; ATTEND Internal Medicine
DX: R07.9 Chest pain, unspecified (principal); G47.33 Obstructive sleep apnea (adult) (pediatric); E78.5 Hyperlipidemia, unspecified; I10 Essential (primary) hypertension; E66.01 Morbid (severe) obesity due to excess calories; Z68.41 Body mass index [BMI] 40.0-44.9, adult; Q60.0 Renal agenesis, unilateral
CPT/HCPCS: 96361; 93005; 93017; 87088; 85025 ×2; 87086; 80048 ×2; 36415; 83721; 83735; 85610; 80061; 82947 ×3; 80076; 81003; 84484 ×3; 83690; 83880; 76377; 74176; 71045; 94760 ×2; 78452; 96372; 96374; 99285; J3010; J1650; J2785; J7030; A9500; G0378 ×2

== ENCOUNTER 2020-01-20 14:44 | Emergency (ER) | payer BC ==
--- OUTSIDE RECORDS SUMMARY | 2020-01-20 17:51 | XMS REPORT | Clinical Summary ---
:1960 Author Organization [facility] Address [address] [place] [address] Care Team Providers Name Role Phone Alfred De Luna Primary Care Provider Unavailable Allergies Active Allergy Reactions Severity Noted Date Comments Miconazole Nitrate Itching High 02/20/2017 Diphenhydramine Hcl Other (See Comments), High 02/20/2017 Patient states her Anaphylaxis throat "closes up" Hallucinations. Meperidine Other (See Comments) 02/20/2017 Numbnes s per patient Pt becomes aggr essive Fluconazole Itching, Rash High 03/04/2017 Not as bad wit h intravenous but worse with oral per h er pt MPOA Kiara Antunez [phone] Morphine 12/29/2015 Aggressiveness Severe vomiting Tramadol Other (See Comments) 01/16/2017 Paranoi a; nightmares Medications Medication Sig Dispensed Refills Start Date End Date Status metaxalone (SKELAXIN) Take 800 mg by 0 Active 800 MG tablet mouth every 6 (six) hours as needed for Muscle spasms. L. ACIDOPHILUS/DIG Take 2 tablets by 0 Active ENZ CMB 5 mouth daily. (PROBIOTIC-DIGESTIVE ENZYMES ORAL) VALERIAN ORAL Take 470 mg by 0 A ctive mouth as needed . Missing or every [...] Units by 0 Active capsule mouth daily. CALCIUM/MAGNESIUM/VIT Take by mouth 0 Active B COMP daily. (ZHPWXCA-[id number]-C COMPLEX ORAL) GARLIC ORAL Take by mouth 0 Acti ve daily. metFORMIN Take 500 mg by 0 Activ e (GLUCOPHAGE) 500 MG mouth daily with tablet breakfast . nebivolol (BYSTOLIC) Take 5 mg by mouth 0 Active 5 MG tablet daily. 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 Hypertension, essential 03/03/2017 Controlled type 2 diabetes mellitus without complicati on, without 03/03/2017 long-term current use of insulin Slow transit constipation 03/03/2017 Occluded PICC line, initial encounter 03/03/2017 Pyelonephritis 03/02/2017 Acute postoperative respiratory insufficiency 01/25/20 UPJ (ureteropelvic junction) obstruction 01/23/2017 Flank pain 01/28/2016 Hydronephrosis, left 12/29/2015 UPJ obstruction, acquired 12/29/2015 Pelvic mass 12/29/2015 Morbid obesity 12/29/2015 Fatty liver 12/29/2015 Tobacco use 12/29/2015 Family History Medical History Relation Name Comments Heart disease Brother Cancer Maternal Grandfather Heart disease Maternal Uncle Heart disease Mother Relation Name Status Comments Brother Maternal Grandfather Maternal Uncle Mother Social History Tobacco Use Types Packs/Day Years Used Date Current Every Day Smoker 1 40 Smokeless Tobacco: Never Used Tobacco Cessation: Ready to Quit: Yes; C ounseling Given: Yes Alcohol Use Drinks/Week oz/Week Comments No Sex Assigned at Date Recorded Not on file Job Start Date Occupation Industry Not on file Not on file Not on file Travel History Travel Start Travel End No recent travel history available. Last Filed Vital Signs Not on file Plan of Treatment Health Maintenance Due Date Last Done Comments BREAST CANCER SCREENING 1960 PNEUMOCOCCAL VACCINE 2-64 YEARS AT RISK (1 of - 1966 PPSV23) CERVICAL CANCER SCREENING PAP ONLY (Age 21-65) 1981 HEMOGLOBIN A1C 03/03/2017 12/29/2015 INFLUENZA VACCINE (#1) 2019 COLON CANCER SCREENING COLONOSCOPY 05/02/2027 05/02/2017 Implants Implanted Type Area Hand Kiss Setter Device Shelf Model / Identifier Expiration Serial / Date Lot Set Stent Injection 6x28cm [id number] - [id number] Stents-Pe Left: BOSTON 09/13/2017 [id number] / Implanted: Qty: 1 on 12/31/2015 by Jag Ritchie MD ripa l [employer]:ONCOLOGY / [id number] Stent Uret Cntour Inj [id number] - [id number] Uro Stent Left: BOSTON 11/24/2017 [id number] / Implanted: Qty: 1 on 09/06/2016 by Jag Ritchie MD [employer] SCI:UROLOGY/GYNE / COLOGY [id number] Stent Uret Cntour Inj [id number] - [id number] Uro Stent Left: B[employer]ON 06/13/2018 [id number] / Implanted: Qty: 1 on 01/23/2017 by Jag Ritchie MD [employer] SCI:UROLOGY/GYNE / COLOGY [id number] Stent Uret Cntour Inj [id number] - [id number] Uro Stent Left: B[employer]ON 10/23/2017 [id number] / Implanted: Qty: 1 on 03/10/2017 by Jag Ritchie MD [employer]:UROLOGY/GYNE / COLOGY [id number] Set Stent Injection 6x28cm [id number] - [id number] Uro Stent Right: BOSTON 12/11/2018 [id number] / Implanted: Qty: 1 on 06/13/2017 by Jag Ritchie MD Ure ter [employer]:ONCOLOGY / [id number] Results Not on fileafter 01/19/2019 Insurance Payer Benefit Plan / Subscriber ID Type Phone Address Group BLUE CROSS/BLUE BCBS ADV HMO xxxxxxxxxxxx [phone] [address] [place] [address] Advance Directives For more information, please contact:[place] [address] [address] [place], [place] [phone] Code Status Date Activated Date Inactivated Comments [...]
--- OUTSIDE RECORDS SUMMARY | 2020-01-20 18:02 | XMS REPORT | Continuity of Care Document ---
:1960 Author Organization [facility] t Address [address] [place] [address] Care Team Providers Name Role Phone Alfred De Luna Primary Care Physician Unavailable Blue CLAIRE, H Attending Clinician Jules CLAIRE Attending Clinician Doctor Unassigned, Name Attending Clinician Unavailable LETTY SINGH Attending Clinician Unavailable BRYANNA VILLATORO Attending Clinician Unavailable CLARENCE ESCALERA Attending Clinician Unavailable CHRIS IVORY Attending Clinician Unavailable ALETHEA Attending Clinician Unavailable ASHUTOSH DACOSTA Attending Clinician Unavailable CLARENCE ESCALERA Admitting Clinician Unavailable LIZZETH MEJÍA Admitting Clinician Unavailable CHRIS IVORY Admitting Clinician Unavailable ALETHEA Admitting Clinician Unavailable Problems Condition Condition Condition Status Onset Resolution Last Treating Co mments Source Name Details Category Date Date Treatment Clinician Date Blurring Blurring Problem Active 0 [place] of visual of Visual 5-13 da image Image 00:00: Medical 00 Group Persistent Persistent Problem Active 2019-0 [facility] cough Cough 5-13 da 00:00: Medical 00 Group Cramp in Cramp in Problem Active [facility] lower limb Lower Limb 4-07 da associated Associated 00:00: Me dical with sleep with Sleep 00 Gr oup Transient Transient Problem Active 2018-08 [facility] cerebral Cerebral 0-01 da ischemia Ischemia 00:00: Medica l 00 Group Nocturnal Nocturnal Problem Active [facility] muscle Muscle 7-18 da spasm Spasm 00:00: Medical 00 Group Excessive Excessive Problem Active [facility] sweating Sweating 7-18 da 00:00: Medical 00 Group Skin Skin Problem Active [facility] lesion Lesion 7-09 da 00:00: Medical 00 Group Superficia Superficia Problem Active [facility] l foreign l Foreign 5-06 da body in Body in 00:00: Medical wrist Wrist 00 Group Bronchitis Bronchitis Problem Active [facility] 3-11 da 00:00: Medical 00 Group Type II Type II Problem Active 2017-08 [place] diabetes Diabetes 2-24 da mellitus Mellitus 00:00: Medica l uncontroll Uncontroll 00 Gr oup ed ed Peripheral Peripheral Problem Active 2017-08 [facility] nerve Nerve 2-07 da disease Disease 00:00: Medical 00 Group Puncture Puncture Problem Active 2017-08 [place] [facility] wound of Wound of 0-15 da foot Foot 00:00: Medical 00 Group Strain of Strain of Problem Active 2017-08 [facility] knee Knee 0-02 da 00:00: Medical 00 Group Chronic Chronic Problem Active [facility] low back Low Back 9-18 da pain Pain 00:00: Medical 00 Group Strain of Strain of Problem Active [facility] muscle of Muscle of 8-13 da right Right 00:00: Medical shoulder Shoulder 00 Group Chronic Chronic Problem Active [facility] depression Depression 6-21 da 00:00: Medical 00 Group Dizziness Dizziness Problem Active [facility] of unknown of Unknown 5-16 da cause Cause 00:00: Medical 00 Group Tremor Tremor Problem Active [facility] 5-16 da 00:00: Medical 00 Group History of History of Problem Active [facility] sepsis Sepsis 5-16 da 00:00: Medical 00 Group Hydronephr Hydronephr Disease Active [facility] osis with osis with 4-17 [facility] - renal and renal and 00:00: Medi remedios ureteral ureteral 00 Center calculous calculous obstructio obstructio n n Severe Severe Disease Active [facility] sepsis sepsis 4-17 [facility] 00:[facility] Center Type 2 Type 2 Problem Active [facility] diabetes Diabetes 3-29 da mellitus Mellitus 00:00: Medica l without without 00 Group complicati Complicati on on Edema Edema Problem Active [facility] 3 da 00:00: Medical Group Diverticul Diverticul Problem Active [facility] itis itis 2- da 00:00: Medical 00 Group Lethargy Lethargy Problem Active [facility] 1- da 00:00: Medical 00 Group Complicate Complicate Disease Active 2016-[address] d UTI d UTI 1-04 [facility] - (urinary (urinary 00:00: Medica l tract tract 00 Center infection) infection) Ureteropel Ureteropel Disease Active 2016-[address] agustina agustina 0- [facility] - junction junction 00:00: Medica l (UPJ) (UPJ) 00 Center obstructio obstructio n, right n, right Urinary Urinary 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 00:00: Medical 00 Group Colonic Colonic Disease Active [facility] fistula fistula 03-04 [facility] - 00:00: Medical 00 Center Hypertensi Hypertensi Disease Active [facility] on, on, 03-03 [facility] - essential essential 00:00: Medi remedios 00 Center Controlled Controlled Disease Active [facility] type 2 type 2 03-03 [facility] - diabetes diabetes 00:00: Medica l mellitus mellitus 00 Center without without complicati complicati on, on, without without long-term long-term current current use of use of insulin insulin Slow Slow Disease Active [facility]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 03-03 [facility] - constipati constipati 00:00: Me dical on on 00 Center Occluded Occluded Disease Active [facility] PICC line, PICC line, 7-21 Ariana kes - initial initial 00:00: Medical encounter encounter 00 Cent er Pyelonephr Pyelonephr Disease Active [facility] itis itis 7-20 [facility] - 00:[facility]: Medical 00 Center Chronic Chronic Problem Active [facility] kidney Kidney 6-29 da disease Disease 00:00: Medical 00 Group Acute Acute Disease Active [facility] postoperat postoperat 6-13 [facility] kes - jose eduardo jose eduardo 00:00: Medical respirator respirator 00 Ce nter y y insufficie insufficie ncy ncy UPJ UPJ Disease Active [facility] (ureterope (ureterope 6-12 Ariana kes - lvic lvic 00:00: Medical junction) junction) 00 Cent er obstructio obstructio n n Hypertrigl Hypertrigl Problem Active [facility] yceridemia yceridemia 2-17 da 00:00: Medical 00 Group Hyperlipid Hyperlipid Problem Active [facility] emia emia 2-16 da 00:00: Medical 00 Group Chronic Chronic Problem Active [facility] anxiety Anxiety 2-16 da 00:00: Medical 00 Group Essential Essential Problem Active [facility] hypertensi Hypertensi 1-30 da on on 00:00: Medical 00 Group Flank pain Flank pain Disease Active [facility] 6-16 [facility] 00:[facility]: Medical 00 Center Hydronephr Hydronephr Disease Active [facility] osis, left osis, left 5-17 Ariana kes - 00:00: Medical 00 Center UPJ UPJ Disease Active [facility] obstructio obstructio 5-17 Ariana kes - n, n, 00:00: Medical acquired acquired 00 Center Pelvic Pelvic Disease Active [facility] mass mass 5-17 [facility] - 00:00: Medical 00 Center Morbid Morbid Disease Active [facility] obesity obesity 5-17 [facility] - 00:00: Medical 00 Center Fatty Fatty Disease Active [facility] liver liver 5-17 [facility] - 00:00: Medical 00 Center Tobacco Tobacco Disease Active [facility] use use 5-17 [facility] - 00:00: Medical 00 Center Allergies, Adverse Reactions, Alerts Allergy Allergy Status Severity Reaction(s) Onset Inactive Treating Comm ents Source Name Type Date Date Clinician Jayce Propensi Active Itching, Not as [facility] ole ty to Rash 03-04 bad with [facility] - adverse 00:00: intraveno Medica l reaction 00 us but Center s worse with oral per her pt EDWARD Antunez Miconazo Propensi Active Itching [facility] le ty to 7-10 [facility] - Nitrate adverse 00:00: Medical reaction 00 Center s Diphenhy Propensi Active Other (See Patient [facility] dramine ty to Comments), 7 states [facility] - Hcl adverse Anaphylaxis 00:00: her Medi remedios reaction 00 throat Center s "closes up"Halluc inations. Meperidi Propensi Active Other (See Numbness [facility] ne ty to Comments) 7- per [facility] - adverse 00:00: patient Medical reaction 00 Pt Center s becomes aggressiv e Tramadol Propensi Active Other (See Paranoia; [facility] ty to Comments) 6-05 nightmare [facility] - adverse 00:00: s Medical reaction 00 Center s Morphine Drug Active Aggressiv [facility] Intolera 5-17 enessSeve [facility] - nce 00:00: re Medical 00 vomiting Center Benadryl Allergy Active [facility] to da substanc Medical e Group Demerol Allergy Active [facility] to da substanc Medical e Group Diflucan Allergy Active Hives [facility] to da substanc Medical e Group Morphine Allergy Active [facility] to da substanc Medical e Group Family History Family Member Diagnosis Comments Start Date Stop Date Source Natural brother Heart disease [facility] Maternal grandfather Cancer [facility] Maternal uncle Heart disease [facility] Natural mother Heart disease [facility] Social History Social Habit Start Date Stop Date Quantity Comments Source Sex Assigned At [facility] Cigarettes smoked 2017-12-01 2017-12-01 [facility] - current (pack per 00:00:00 00:00:00 Medical Center day) - Reported Cigarette pack-years 2017-12-01 2017-12-01 [facility] - 00:00:00 00:00:00 Medical Center Smoking Status Start Date Stop Date Source Heavy Tobacco Smoker [facility] Current every day smoker 2017-12-01 00:00:[address] [facility] k[facility] Medications Ordered Filled Start Stop Current Ordering Indication Dosage Frequency Signature Comments Components Source Medication Medication Date Date Medication? Clinician (SIG) Name Name metFORMIN Yes 500mg Take [address] [facility] (GLUCOPHAGE 4-17 mg by [facility] - ) 500 MG 17:01: mouth Medical tablet 22 daily with Center breakfast . nebivolol Yes 5mg QD Take [address] (BYSTOLIC) 4-16 by mouth [facility] - 5 MG tablet 23:05: daily. Medi remedios 53 Center VALERIAN 2016-08 Yes 470mg Take [address] ORAL 1-04 mg by [facility] - 23:42: mouth as Medical 41 needed . [place] CALCIUM/MAG 2016-08 Yes QD Take by [facility] NESIUM/VIT 0-27 mouth [facility] - B COMP 12:45: daily. Medical (CALCIUM-MA 56 Center GNESIUM-B COMPLEX ORAL) GARLIC ORAL 2016-08 Yes QD Take by [facility] 0-27 mouth [facility] - 12:45: daily. [place] [id number] Center Missing or 2016-08 Yes every [address] Non-Formula 0-27 (one) hour Ariana kes - ry 12:45: Kidney [facility] Medication 55 otc Center vitamin . [place] OIL 2016-08 Yes QD Take by [facility] ORAL 0-27 mouth [facility] - 12:45: daily. [address] KELP ORAL 2016-08 Yes QD Take by [facility] t 0-27 mouth [facility] - 12:45: daily. [address] GRAPEFRUIT 2016-08 Yes QD Take by [facility] FORMULA 0-27 mouth [facility] - ORAL 12:45: daily. [address] COQ10, 2016-08 Yes QD Take by [facility] UBIQUINOL, 0-27 mouth [facility] - ORAL 12:45: daily. [address] carica 2016-08 Yes Take by [facility] papaya 0-27 mouth as [facility] - (PAPAYA 12:45: needed. Medical ENZYME) Tab 55 Center ENZYMES,DIG 2016-08 Yes QD Take by [facility] ESTIVE 0-27 mouth [facility] - (DIGESTIVE 12:45: daily. Medic al ENZYMES 55 Center ORAL) vitamin E 2016-08 Yes 400U QD Take [address] 400 UNIT 0-27 Units by [facility] - capsule 12:45: mouth Medical 55 daily. Center L. 2016-08 Yes 2{tbl} QD Take [address] ACIDOPHILUS 0-27 tablets by Ariana kes - /DIG ENZ 12:45: mouth Medical CMB 5 54 daily. Center (PROBIOTIC- DIGESTIVE ENZYMES ORAL) metaxalone Yes 800mg Take [address] (SKELAXIN) 6-12 mg by [facility] - 800 MG 12:14: mouth Medical tablet 18 every 6 Center (six) hours as needed for Muscle spasms. Anoro Anoro No Anoro [facility] Ellipta Ellipta Ellipta da 62.5 mcg-25 62.5 mcg-25 62.5 M edical mcg/actuati mcg/actuati mcg-25 Group on powder on powder mcg/actuat for for ion powder inhalation inhalation for inhalation atorvastati atorvastati No atorvastat [place] n 40 mg n 40 mg in 40 mg da tablet tablet tablet Medical Group azithromyci azithromyci No azithromyc [place] n 250 mg n 250 mg in 250 mg da tablet TAKE tablet TAKE tablet Medical 2 TABLETS 2 TABLETS TAKE 2 [facility] up (500 MG) BY (500 MG) BY TABLETS ORAL ROUTE ORAL ROUTE (500 MG) ONCE DAILY ONCE DAILY BY ORAL FOR 1 DAY FOR 1 DAY ROUTE ONCE THEN 1 THEN 1 DAILY FOR TABLET (250 TABLET (250 1 DAY THEN MG) BY ORAL MG) BY ORAL 1 TABLET ROUTE ONCE ROUTE ONCE (250 MG) DAILY FOR 4 DAILY FOR 4 BY ORAL DAYS DAYS ROUTE ONCE DAILY FOR 4 DAYS benzonatate benzonatate No 1capsul TID benzonatat [facility] 200 mg 200 mg e(s) e 200 mg da capsule capsule capsule Medica l Take 1 Take 1 Take 1 Group capsule 3 capsule 3 capsule 3 times a day times a day times a by oral by oral day by route. use route. use oral as needed as needed route. use for cough for cough as needed for cough bupropion bupropion No bupropion [facility] HCl SR 200 HCl SR 200 HCl SR 200 da mg mg mg Medical tablet,12 tablet,12 tablet,12 Group hr hr hr sustained-r sustained-r sustained- elease elease release Bystolic 5 Bystolic 5 No Bystolic 5 [facility] mg tablet mg tablet mg tablet da TAKE ONE TAKE ONE TAKE ONE Med ical (1) (1) (1) Group TABLET(S) TABLET(S) TABLET(S) BY MOUTH BY MOUTH BY MOUTH ONCE A DAY. ONCE A DAY. ONCE A DAY. Contour Contour No Contour [facility] Next Test Next Test Next Test da Strips Strips Strips Medical Group diazepam 2 diazepam 2 No diazepam 2 [facility] mg tablet mg tablet mg tablet da Take 1 Take 1 Take 1 Medical tablet 3 tablet 3 tablet 3 [facility] up times a day times a day times a by oral by oral day by route. route. oral route. escitalopra escitalopra No escitalopr [place] m 20 mg m 20 mg am 20 mg da tablet TAKE tablet TAKE tablet Medical ONE (1) ONE (1) TAKE ONE Group TABLET(S) TABLET(S) (1) BY MOUTH BY MOUTH TABLET(S) ONCE A DAY. ONCE A DAY. BY MOUTH ONCE A DAY. ezetimibe ezetimibe No ezetimibe [facility] 10 mg 10 mg 10 mg da tablet tablet tablet Medical Group Lidocaine Lidocaine No Lidocaine [facility] Viscous 2 % Viscous 2 % Viscous 2 da mucosal mucosal % mucosal Medi remedios solution solution solution C[facility]ra up Take 15 mL Take 15 mL Take 15 mL every 3 every 3 every 3 hours by hours by hours by oral route. oral route. oral route. metformin metformin No metformin [facility] ER 750 mg ER 750 mg ER 750 mg da tablet,exte tablet,exte tablet,ext Medical nded nded ended Group release 24 release 24 release 24 hr hr hr Microlet Microlet No Microlet [facility] Lancet Lancet Lancet da Medical Group montelukast montelukast No montelukas [facility] 10 mg 10 mg t 10 mg da tablet tablet tablet Medical Group omeprazole omeprazole No omeprazole [facility] 40 mg 40 mg 40 mg da capsule,del capsule,del capsule,de Medical ayed ayed layed Group release release release primidone primidone No primidone [facility] 50 mg 50 mg 50 mg da tablet tablet tablet Medical Group Trulicity Trulicity No Trulicity [facility] 0.75 mg/0.5 0.75 mg/0.5 0.75 d a mL mL mg/0.5 mL Medical subcutaneou subcutaneou subcutaneo Group s pen s pen us pen injector injector injector Inject 0.5 Inject 0.5 Inject 0.5 mL every mL every mL every week by week by week by subcutaneou subcutaneou subcutaneo s route. s route. us route. Immunizations Ordered Immunization Filled Immunization Date Status Commen ts Source Name Name Tdap Tdap 2018-05-28 Completed [facility] 12:28:00 Medical Group Vital Signs Vital Name Observation Time Observation Value Comments Source BP Diastolic 2019-09-26 00:00:00 103 mm[Hg] [facility] Height 2019-09-26 00:00:00 67 [in_i] [facility] BMI (Body Mass 2019-09-26 00:00:00 44.6 kg/m2 [facility] comb winder Medical Index) Group BP Systolic 2019-09-26 00:00:00 156 mm[Hg] [facility] Body Weight 2019-09-26 00:00:00 4560 [oz_av] [facility] BP Diastolic 2019-07-26 00:00:00 100 mm[Hg] [facility] Height 2019-07-26 00:00:00 67 [in_i] [facility] BMI (Body Mass 2019-07-26 00:00:00 44.5 kg/[facility]2 [facility] BP Systolic 2019-07-26 00:00:00 170 mm[Hg] [facility] Body Weight 2019-07-26 00:00:00 4544 [oz_av] [facility] BP Diastolic 2019-05-23 00:00:00 78 mm[Hg] [facility] Height 2019-05-23 00:00:00 67 [in_i] [facility] BMI (Body Mass 2019-05-23 00:00:00 43.4 kg/m2 [facility] BP Systolic 2019-05-23 00:00:00 150 mm[Hg] [facility] Body Weight 2019-05-23 00:00:00 276.8 [lb_av] [facility] BP Diastolic 2019-05-14 00:00:00 96 mm[Hg] [facility] Height 2019-05-14 00:00:00 67 [in_i] [facility] BMI (Body Mass 2019-05-14 00:00:00 43.9 kg/m2 [facility] comb winder Medical Index) Group BP Systolic 2019-05-14 00:00:00 164 mm[Hg] [facility] Body Weight 2019-05-14 00:00:00 4480 [oz_av] [facility] BP Diastolic 2019-02-28 00:00:00 79 mm[Hg] [facility] Height 2019-02-28 00:00:00 67 [in_i] [facility] BMI (Body Mass 2019-02-28 00:00:00 42.6 kg/m2 [facility] comb winder Medical Index) Group BP Systolic 2019-02-28 00:00:00 141 mm[Hg] [facility] Body Weight 2019-02-28 00:00:00 4352 [oz_av] [facility] BP Diastolic 2019-02-20 00:00:00 81 mm[Hg] [facility] Height 2019-02-20 00:00:00 67 [in_i] [facility] BMI (Body Mass 2019-02-20 00:00:00 42.3 kg/m2 [facility] comb winder Medical Index) Group BP Systolic 2019-02-20 00:00:00 120 mm[Hg] [facility] Body Weight 2019-02-20 00:00:00 270.3 [lb_av] [facility] BP Diastolic 2019-02-19 00:00:00 83 mm[Hg] [facility] Height 2019-02-19 00:00:00 67 [in_i] [facility] BMI (Body Mass 2019-02-19 00:00:00 42.3 kg/m2 [facility] comb winder Medical Index) Group BP Systolic 2019-02-19 00:00:00 136 mm[Hg] [facility] Body Weight 2019-02-19 00:00:00 4320 [oz_av] [facility] BP Diastolic 2019-01-24 00:00:00 89 mm[Hg] [facility] Height 2019-01-24 00:00:00 67 [in_i] [facility] BMI (Body Mass 2019-01-24 00:00:00 42.3 kg/m2 [facility] comb winder Medical Index) Group BP Systolic 2019-01-24 00:00:00 126 mm[Hg] [facility] Body Weight 2019-01-24 00:00:00 269.8 [lb_av] [facility] BP Diastolic 2018-12-27 00:00:00 81 mm[Hg] [facility] Height 2018-12-27 00:00:00 67 [in_i] [facility] BMI (Body Mass 2018-12-27 00:00:00 42.8 kg/m2 [facility] BP Systolic 2018-12-27 00:00:00 129 mm[Hg] [facility] Body Weight 2018-12-27 00:00:00 273.2 [lb_av] [facility] BP Diastolic 2018-12-17 00:00:00 93 mm[Hg] [facility] Height 2018-12-17 00:00:00 67 [in_i] [facility] BMI (Body Mass 2018-12-17 00:00:00 42.9 kg/m2 [facility] Group BP Systolic 2018-12-17 00:00:00 161 mm[Hg] [facility] Body Weight 2018-12-17 00:00:00 4384 [oz_av] [facility] BP Diastolic 2018-12-06 00:00:00 88 mm[Hg] [facility] Height 2018-12-06 00:00:00 67 [in_i] [facility] BMI (Body Mass 2018-12-06 00:00:00 43 kg/m2 [facility] Index) Group BP Systolic 2018-12-06 00:00:00 152 mm[Hg] [facility] Body Weight 2018-12-06 00:00:00 274.7 [lb_av] [facility] BP Diastolic 2018-10-22 00:00:00 84 mm[Hg] [facility] Height 2018-10-22 00:00:00 67 [in_i] [facility] BMI (Body Mass 2018-10-22 00:00:00 43.5 kg/m2 [facility] Medical Index) Group BP Systolic 2018-10-22 00:00:00 152 mm[Hg] [facility] Body Weight 2018-10-22 00:00:00 4448 [oz_av] [facility] BP Diastolic 2018-08-27 00:00:00 100 mm[Hg] [facility] Height 2018-08-27 00:00:00 67 [in_i] [facility] BMI (Body Mass 2018-08-27 00:00:00 44.6 kg/m2 [facility] Medical Index) Group BP Systolic 2018-08-27 00:00:00 186 mm[Hg] [facility] Body Weight 2018-08-27 00:00:00 4560 [oz_av] [facility] BP Diastolic 2018-08-06 00:00:00 104 mm[Hg] [facility] Height 2018-08-06 00:00:00 67 [in_i] [facility] BMI (Body Mass 2018-08-06 00:00:00 43.9 kg/m2 [facility] Medical Index) Group BP Systolic 2018-08-06 00:00:00 166 mm[Hg] [facility] Body Weight 2018-08-06 00:00:00 4480 [oz_av] [facility] Height 2018-07-30 00:00:00 67 [in_i] [facility] BMI (Body Mass 2018-07-30 00:00:00 43.9 kg/m2 [facility] Medical Index) Group Body Weight 2018-07-30 00:00:00 280 [lb_av] [facility] Procedures Procedure Date / Time Performing Clinician Source Performed US, duplex, carotid 2019-05-20 00:00:00 [facility] a Medical artery Group US, doppler, arterial 2019-05-14 00:00:00 [facility] Group XR, wrist 2018-12-17 00:00:00 [facility] TYMPANOMETRY 2018-12-06 00:00:00 [facility] unlisted imaging order 2018-10-22 00:00:00 [facility] TYMPANOMETRY 2018-07-20 00:00:00 [facility] unlisted imaging order 2018-07-20 00:00:00 [facility] Exploration of Kidney 2017-11-30 00:00:00 [facility] Remove Tonsils and [facility] ical Adenoids Group Ankle [facility] l Arthroscopy/surgery Group Hysterectomy/revise [facility] Vagina Group Plan of Care Planned Activity Planned Date Details Comments Source Future Scheduled 2027-05-02 COLON CANCER SCREENING [facility] - Test 00:00:00 COLONOSCOPY [code = Medical Center COLON CANCER SCREENING COLONOSCOPY] Future Scheduled 2019-04-14 INFLUENZA VACCINE (#1) [facility] - Test 00:00:00 [code = INFLUENZA Medical Ce nter VACCINE (#1)] Future Scheduled 2017-03-03 HEMOGLOBIN A1C [code = [facility] - Test 00:00:00 HEMOGLOBIN A1C] Medical Cent er Future Scheduled [address] [facility] - Test 00:00:00 malignant neoplasm of Medica l Center cervix (procedure) [code = 104120244] Future Scheduled [address] [facility] - Test 00:00:00 2-64 YEARS AT RISK (1 Medica l Center of 1 - PPSV23) [code = PNEUMOCOCCAL VACCINE 2-64 YEARS AT RISK (1 of 1 - PPSV23)] Future Scheduled [address] [facility] - Test 00:00:00 SCREENING [code = Medical Ce nter BREAST CANCER SCREENING] Encounters Start End Encounter Admission Attending Care Care Encounter Source Date/Time Date/Time Type Type Clinicians Facility Department ID 2019-12-25 2019-12-25 Dylan Lara [facility] [place] - [id number] Thelma wheeler 00:00:00 00:00:00 MD Chris: da [address] [facility] [place] [address], [place] [address] , Ph. 2019-12-16 2019-12-16 RefDARLENE Guzman [id number] 00:00:00 00:00:00 Hill Cummings [id number] [place] [id number] Professio [phone] [facility] 2019-11-28 2019-11-28 Dylan RODARTE [place] - [id number] M [facility] 00:00:00 00:00:00 MD Chris: [address], [facility] [address] , Ph. 2019-11-19 2019-11-19 Dylan RODARTE [place] - [id number] M [facility] 00:00:00 00:00:00 MD Chris: [address] - [address], [facility] [address] , Ph. 2019-11-15 2019-11-15 [facility] [id number] 00:00:00 00:00:00 Hill Cummings [id number] [place] [id number] Professio [phone] [address] 2019-09-26 2019-09-26 Dylan RODARTE [place] - [id number] M [facility] 00:00:00 00:00:00 MD Chris: [address] - [address], [facility] [address] , Ph. 2019-07-26 2019-07-26 Dylan RODARTE [place] - [id number] M [facility] 00:00:00 00:00:00 MD Chris: [address] - [address], [facility] [address] , Ph. 2019-05-23 2019-05-23 Geoff RODARTE [place] - [id number] [facility] 00:00:00 00:00:00 MD Cherelle: [address], [place] - [address], [place], [place] [address] , Ph. 2019-05-14 2019-05-14 Dylan RODARTE [place] - [id number] M at[facility]or 00:00:00 00:00:00 MD Chris: [address], [place] [address] , Ph. 2019-04-02 2019-04-02 Narend[facility] Vic[facility] [id number] 00:00:00 00:00:00 Chadd [place] [id number] [place] [id number] [phone] [address] 2019-03-06 2019-03-06 Orders Doctor DARIO [id number] 00:00:00 00:00:00 Only Unassigned, JESS [id number] [place] [facility] [phone] [id number] 2019-02-28 2019-02-28 Dylan Lara [facility] [place] - [id number] M atagor 00:00:00 00:00:00 MD Chris: [address] - [facility] [facility], [facility] [place] [address] , Ph. 2019-02-28 2019-02-28 Orders Doctor DARIO [id number] 00:00:00 00:00:00 Only Unassigned, JESS [id number] [facility] [id number] 2019-02-20 2019-02-20 Geoff [facility] [place] - [id number] [place] 00:00:00 00:00:00 MD Cherelle: [address], [place], [facility] [place] [address] , Ph. 2019-02-19 2019-02-19 Dylan Lara MM [place] - [id number] M [place] 00:00:00 00:00:00 MD Chris: [address], Family [facility] [place] [address] , Ph. 2019-01-24 2019-01-24 Palivela ROLANDO [place] - [id number] [place] 00:00:00 00:00:00 MD Cherelle: [address], [place] [address], [facility] [place] [address] , Ph. 2018-12-27 2018-12-27 Palefra MARSHALL [place] - [id number] [place] 00:00:00 00:00:00 MD Cherelle: [address], [place] - [address], [facility], [facility] [place] [address] , Ph. 2018-12-17 2018-12-17 Dylan Lara MM [place] - [id number] M [place] 00:00:00 00:00:00 MD Chris: [address], [place] - [address], [facility] [place] [address] , Ph. 2018-12-06 2018-12-06 Palefra MARSHALL [place] - [id number] [place] 00:00:00 00:00:00 MD Cherelle: [address], [place] [address], [facility], [facility] [place] [address] , Ph. 2018-10-22 2018-10-22 Dylan RODARTE [place] - [id number] M [place] 00:00:00 00:00:00 MD Chris: [address], [place] [address], [facility] [place] [address] , Ph. 2018-08-27 2018-08-27 Dylan RODARTE [place] - [id number] M [place] 00:00:00 00:00:00 MD Chris: [address], [place] [address], [facility] [place] [address] , Ph. 2018-08-06 2018-08-06 Dylan Lara MM [place] - [id number] M [place] 00:00:00 00:00:00 MD Chris: [address], [place] [address], [facility] [place] [address] , Ph. 2018-07-30 2018-07-30 Paljose eduardola MM [place] - [id number] [place] 00:00:00 00:00:00 MD Cherelle: [address], [place] [address], [facility] [place] [address] , Ph. 2018-07-20 2018-07-20 Palefra MM [place] - [id number] [place] 00:00:00 00:00:00 MD Cherelle: [address], [place] - [address], [facility], ogy-[facility] [place] [address] , Ph. Results Test Description Test Time Test Comments Results Result Sourc e Comments Surgical pathology 2019-02-11 Study Report Castro jimmy study 08:11:00 Medical [facility] Surgical pathology 2019-02-11 Study Report Castro jimmy study 08:11:00 Medical [facility] Surgical pathology 2019-02-11 Study Report Castro jimmy study 08:11:00 [facility] CBC W Auto Differential panel - Blood 2019-02-04 12:55:00 Test Item Value Reference Range Interpretation Comme nts white blood count (test code = white blood count) 11.0 K/uL 4.0- 11.5 red blood count (test code = red blood count) 5.16 M/uL 3.80-5.2 0 Hemoglobin [Mass/volume] in Blood (test code = 718-7) 14.4 g/dL 10.5-15.7 hematocrit (test code = hematocrit) 45.2 % 34.0-50.0 Erythrocyte mean corpuscular volume [Entitic volume] (test 87.6 fL 78-98 code = 96444-2) Erythrocyte mean corpuscular hemoglobin [Entitic mass] (test 27.9 p g 26.2-33.4 code = 48938-0) mean corpuscular HGB conc (test code = mean corpuscular HGB 31.8 g/dL 31.5-36.2 conc) red cell distribution width (test code = red cell 13.5 % 11.5 -15.5 distribution width) Platelets [#/volume] in Blood (test code = 35254-0) 282 K/uL 13 7-338 Platelet mean volume [Entitic volume] in Blood (test code = 5.8 fL 8.4-11.8 L 84180-7) Neutrophils.band form/100 leukocytes in Blood (test code = 64.4 % 44.4-80.1 12982-3) Lymphocytes/100 leukocytes in Body fluid (test code = 24.8 % 10.0-50.0 10731-1) Monocytes/100 leukocytes in Blood by Automated count (test 7.2 % 3.6-12.0 code = 5905-5) Eosinophils/100 leukocytes in Blood by Automated count (test 2.0 % 0.0-5.4 code = 713-8) Basophils/100 leukocytes in Unspecified specimen (test code = 1.6 % 0.0-0.79 H 51545-8) [id number] 12:55:00 Test Item Value Reference Range Interpretation Comments prothrombin time (test code = 10.1 seconds 10.3-12.3 L prothrombin time) INR in Blood by Coagulation 0.92 assay (test code = 78718-3) [facility] [id number] 12:55:00 Test Item Value Reference Range Interpretation Comments INR in Blood by Coagulation 28.2 seconds 22.5-37.0 assay (test code = 14858-5) [facility] 2000 panel - Serum or [id number] 12:55:00 Test Item Value Reference Range Interpretation Comments glucose (test code = glucose) 116 mg/dL 74-106 H Urea nitrogen [Mass/volume] in 18 mg/dL 6-20 Serum or Plasma (test code = 3094-0) Osmolality of Serum or Plasma 279 280-300 L (test code = 2692-2) creatinine (test code = 1.2 mg/dL 0.50-0.90 H creatinine) glomerular filtration rate (test 46.14 L code = glomerular filtration rate) Urea nitrogen/Creatinine [Mass 15.0 12-20 Ratio] in Serum or Plasma (test code = 3097-3) sodium level (test code = sodium 138 mmol/L 135-145 level) Potassium [Moles/volume] in Body 4.2 mmol/L 3.5-5.2 fluid (test code = 2821-7) chloride level (test code = 100 mmol/L 98-108 chloride level) CO2 (test code = CO2) 27 mmol/L 21-32 anion gap (test code = anion gap) 15.2 mEq/L 12-20 calcium level (test code = calcium 10.0 mg/dL 8.6-10.0 level) [facility] W Auto Differential panel - [id number] 12:55:00 Test Item Value Reference Range Interpretation Comments white blood count (test code = 11.0 K/uL 4.0-11.5 white blood count) red blood count (test code = red 5.16 M/uL 3.80-5.20 blood count) Hemoglobin [Mass/volume] in Blood 14.4 g/dL 10.5-15.7 (test code = 718-7) hematocrit (test code = hematocrit) 45.2 % 34.0-50.0 Erythrocyte mean corpuscular volume 87.6 fL 78-98 [Entitic volume] (test code = 68901-9) Erythrocyte mean corpuscular 27.9 pg 26.2-33.4 hemoglobin [Entitic mass] (test code = 31543-5) mean corpuscular HGB conc (test 31.8 g/dL 31.5-36.2 code = mean corpuscular HGB conc) red cell distribution width (test 13.5 % 11.5-15.5 code = red cell distribution width) Platelets [#/volume] in Blood (test 282 K/uL 137-338 code = 71698-9) Platelet mean volume [Entitic 5.8 fL 8.4-11.8 L volume] in Blood (test code = 13225-0) Neutrophils.band form/100 64.4 % 44.4-80.1 leukocytes in Blood (test code = 51600-7) Lymphocytes/100 leukocytes in Body 24.8 % 10.0-50.0 fluid (test code = 73073-0) Monocytes/100 leukocytes in Blood 7.2 % 3.6-12.0 by Automated count (test code = 5905-5) Eosinophils/100 leukocytes in Blood 2.0 % 0.0-5.4 by Automated count (test code = 713-8) Basophils/100 leukocytes in 1.6 % 0.0-0.79 H Unspecified specimen (test code = 43298-7) [facility]/[id number] 12:55:00 Test Item Value Reference Range Interpretation Comments prothrombin time (test code = 10.1 seconds 10.3-12.3 L prothrombin time) INR in Blood by Coagulation 0.92 assay (test code = 21794-7) [facility] [id number] 12:55:00 Test Item Value Reference Range Interpretation Comments INR in Blood by Coagulation 28.2 seconds 22.5-37.0 assay (test code = 50605-9) [facility]inBasi metabolic 2000 panel - Serum or [id number] 12:55:00 Test Item Value Reference Range Interpretation Comments glucose (test code = glucose) 116 mg/dL 74-106 H Urea nitrogen [Mass/volume] in 18 mg/dL 6-20 Serum or Plasma (test code = 3094-0) Osmolality of Serum or Plasma 279 280-300 L (test code = 2692-2) creatinine (test code = 1.2 mg/dL 0.50-0.90 H creatinine) glomerular filtration rate (test 46.14 L code = glomerular filtration rate) Urea nitrogen/Creatinine [Mass 15.0 12-20 Ratio] in Serum or Plasma (test code = 3097-3) sodium level (test code = sodium 138 mmol/L 135-145 level) Potassium [Moles/volume] in Body 4.2 mmol/L 3.5-5.2 fluid (test code = 2821-7) chloride level (test code = 100 mmol/L 98-108 chloride level) CO2 (test code = CO2) 27 mmol/L 21-32 anion gap (test code = anion gap) 15.2 mEq/L 12-20 calcium level (test code = calcium 10.0 mg/dL 8.6-10.0 level) [facility] W Auto Differential panel - [id number] 12:55:00 Test Item Value Reference Range Interpretation Comments white blood count (test code = 11.0 K/uL 4.0-11.5 white blood count) red blood count (test code = red 5.16 M/uL 3.80-5.20 blood count) Hemoglobin [Mass/volume] in Blood 14.4 g/dL 10.5-15.7 (test code = 718-7) hematocrit (test code = hematocrit) 45.2 % 34.0-50.0 Erythrocyte mean corpuscular volume 87.6 fL 78-98 [Entitic volume] (test code = 08999-3) Erythrocyte mean corpuscular 27.9 pg 26.2-33.4 hemoglobin [Entitic mass] (test code = 37566-9) mean corpuscular HGB conc (test 31.8 g/dL 31.5-36.2 code = mean corpuscular HGB conc) red cell distribution width (test 13.5 % 11.5-15.5 code = red cell distribution width) Platelets [#/volume] in Blood (test 282 K/uL 137-338 code = 70701-1) Platelet mean volume [Entitic 5.8 fL 8.4-11.8 L volume] in Blood (test code = 36686-8) Neutrophils.band form/100 64.4 % 44.4-80.1 leukocytes in Blood (test code = 23223-8) Lymphocytes/100 leukocytes in Body 24.8 % 10.0-50.0 fluid (test code = 78507-3) Monocytes/100 leukocytes in Blood 7.2 % 3.6-12.0 by Automated count (test code = 5905-5) Eosinophils/100 leukocytes in Blood 2.0 % 0.0-5.4 by Automated count (test code = 713-8) Basophils/100 leukocytes in 1.6 % 0.0-0.79 H Unspecified specimen (test code = 02512-2) [facility]PT/[id number] 12:55:00 Test Item Value Reference Range Interpretation Comments prothrombin time (test code = 10.1 seconds 10.3-12.3 L prothrombin time) INR in Blood by Coagulation 0.92 assay (test code = 18673-9) [facility] [id number] 12:55:00 Test Item Value Reference Range Interpretation Comments INR in Blood by Coagulation 28.2 seconds 22.5-37.0 assay (test code = 20811-8) [facility] metabolic 2000 panel - Serum or [id number] 12:55:00 Test Item Value Reference Range Interpretation Comments glucose (test code = glucose) 116 mg/dL 74-106 H Urea nitrogen [Mass/volume] in 18 mg/dL 6-20 Serum or Plasma (test code = 3094-0) Osmolality of Serum or Plasma 279 280-300 L (test code = 2692-2) creatinine (test code = 1.2 mg/dL 0.50-0.90 H creatinine) glomerular filtration rate (test 46.14 L code = glomerular filtration rate) Urea nitrogen/Creatinine [Mass 15.0 12-20 Ratio] in Serum or Plasma (test code = 3097-3) sodium level (test code = sodium 138 mmol/L 135-145 level) Potassium [Moles/volume] in Body 4.2 mmol/L 3.5-5.2 fluid (test code = 2821-7) chloride level (test code = 100 mmol/L 98-108 chloride level) CO2 (test code = CO2) 27 mmol/L 21-32 anion gap (test code = anion gap) 15.2 mEq/L 12-20 calcium level (test code = calcium 10.0 mg/dL 8.6-10.0 level) [facility] metabolic 1999 panel - Serum or [id number] 12:51:00 Test Item Value Reference Range Interpretation Comments glucose (test code = glucose) 109 mg/dL 74-106 H Urea nitrogen [Mass/volume] in 19 mg/dL 6-20 Serum or Plasma (test code = 3094-0) Osmolality of Serum or Plasma 280 280-300 (test code = 2692-2) creatinine (test code = 1.2 mg/dL 0.50-0.90 H creatinine) glomerular filtration rate (test 46.14 L code = glomerular filtration rate) Urea nitrogen/Creatinine [Mass 15.8 12-20 Ratio] in Serum or Plasma (test code = 3097-3) sodium level (test code = sodium 139 mmol/L 135-145 level) Potassium [Moles/volume] in Body 4.2 mmol/L 3.5-5.2 fluid (test code = 2821-7) chloride level (test code = 102 mmol/L 98-108 chloride level) CO2 (test code = CO2) 25 mmol/L 21-32 anion gap (test code = anion gap) 16.2 mEq/L 12-20 calcium level (test code = calcium 9.8 mg/dL 8.6-10.0 level) [facility]inRilnzqhwrkqrxuum0418-52-03 09:27:00 Test Item Value Reference Range Interpretation Comments Right (test code = Right) Type A Normal Left (test code = Left) Type A Normal [id number] 09:27:00 Test Item Value Reference Range Interpretation Comments Right (test code = Right) Type A Normal Left (test code = Left) Type A Normal [facility]inUrinalysis complete W Reflex Culture panel - Urine 2018-08-06 07:50:00 Test Item Value Reference Range Interpretation Comments Color of Urine by Auto (test light yellow code = 81240-8) Appearance of Urine (test code clear clear = 5767-9) Glucose [Presence] in Urine by =2+ (150 negative H Automated test strip (test code = 89853-1) Bilirubin.total [Mass/volume] negative negative in Urine (test code = 1978-6) Ketones [Mass/volume] in Urine trace negative by Automated test strip (test code = 02490-8) Specific gravity of Urine by 1.010 1.003-1.030 Automated test strip (test code = 43603-9) blood urine (test code = blood negative negative urine) pH of Urine (test code = 5.000 5-9 2756-5) protein urine (UA) (test code = negative negative protein urine (UA)) Urobilinogen [Presence] in normal 0.2-1.0 Urine (test code = 28799-3) Nitrite [Presence] in Urine by negative negative Test strip (test code = 5802-4) Leukocyte esterase [Presence] negative negative in Urine by Automated test strip (test code = 50147-2) Erythrocytes [#/volume] in <1 0-5 Urine by Automated count (test code = 798-9) Leukocytes [#/area] in Urine <1 0-5 sediment by Automated count (test code = 24927-4) Epithelial cells [Presence] in =1-5 0-5 Urine sediment by Light microscopy (test code = 25911-5) Bacteria identified in Urine by none detected none detect Culture (test code = 630-4) Casts [#/area] in Urine none detected none detect sediment by Automated count (test code = 87430-5) urine culture added? (test code no = urine culture added?) [facility] W Auto Differential panel - [id number] 12:04:00 Test Item Value Reference Range Interpretation Comments white blood count (test code = 9.9 K/uL 4.0-11.5 white blood count) red blood count (test code = red 5.20 M/uL 3.80-5.20 blood count) Hemoglobin [Mass/volume] in Blood 15.4 g/dL 10.5-15.7 (test code = 718-7) hematocrit (test code = hematocrit) 46.4 % 34.0-50.0 Erythrocyte mean corpuscular volume 89.4 fL 78-98 [Entitic volume] (test code = 43934-5) Erythrocyte mean corpuscular 29.6 pg 26.2-33.4 hemoglobin [Entitic mass] (test code = 14245-2) mean corpuscular HGB conc (test 33.1 g/dL 31.5-36.2 code = mean corpuscular HGB conc) red cell distribution width (test 12.7 % 11.5-15.5 code = red cell distribution width) Platelets [#/volume] in Blood (test 242 K/uL 137-338 code = 38910-8) Platelet mean volume [Entitic 6.5 fL 8.4-11.8 L volume] in Blood (test code = 48549-4) Neutrophils.band form/100 59.1 % 44.4-80.1 leukocytes in Blood (test code = 41586-6) Lymphocytes/100 leukocytes in Body 31.3 % 10.0-50.0 fluid (test code = 57245-9) Monocytes/100 leukocytes in Blood 5.7 % 3.6-12.04 by Automated count (test code = 5905-5) Eosinophils/100 leukocytes in Blood 2.8 % 0.0-5.41 by Automated count (test code = 713-8) Basophils/100 leukocytes in Blood 1.2 % 0.0-0.79 H by Automated count (test code = 706-2) [facility]indifferential panel, [id number] 12:04:00 NeutrophilsBandLymphocyteAtypical LymphMonocyteEosinophilBasophilPlatelet EstimatePlatelet MorphologyHypochromasiaAnisocytosisMicrocytosisRouleauMaEast Mississippi State HospitalBasic metabolic 2000 panel - Serum or [id number] 12:04:00 Test Item Value Reference Range Interpretation Comments glucose (test code = glucose) 402 mg/dL 74-106 H Urea nitrogen [Mass/volume] in 17 mg/dL 6-20 Serum or Plasma (test code = 3094-0) Osmolality of Serum or Plasma 289 280-300 (test code = 2692-2) creatinine (test code = 1.1 mg/dL 0.50-0.90 H creatinine) glomerular filtration rate (test 51.20 L code = glomerular filtration rate) Urea nitrogen/Creatinine [Mass 15.5 12-20 Ratio] in Serum or Plasma (test code = 3097-3) sodium level (test code = sodium 135 mmol/L 135-145 level) Potassium [Moles/volume] in Body 4.4 mmol/L 3.5-5.2 fluid (test code = 2821-7) chloride level (test code = 97 mmol/L 98-108 L chloride level) CO2 (test code = CO2) 26 mmol/L 21-32 anion gap (test code = anion gap) 16.4 mEq/L 12-20 calcium level (test code = calcium 9.7 mg/dL 8.6-10.0 level) [facility]inPT/[id number] 12:04:00 Test Item Value Reference Range Interpretation Comments prothrombin time (test code = 9.9 seconds 10.3-12.3 L prothrombin time) INR in Blood by Coagulation assay 0.90 (test code = 41557-3) [facility] [id number] 12:04:00 Test Item Value Reference Range Interpretation Comments INR in Blood by Coagulation 27.0 seconds 22.5-37.0 assay (test code = 10702-9) [facility]inLrctuixibrqfpxon0293-19-08 10:00:34 Test Item Value Reference Range Interpretation Comments Right (test code = Right) Type A Normal Left (test code = Left) Type A Normal [facility] RankinMkcqkeuyvmfyyery8437-49-80 10:00:34 Test Item Value Reference Range Interpretation Comments Right (test code = Right) Type A Normal Left (test code = Left) Type A Normal [facility] RankinTISSUE [id number] 08:52:00Surgical Pathology Report Case: [id number] Aut horizing Provider: Jag Escalera MD Collected: 11/30/2017 1025 Ordering Location: [facility] Received: 11/30/2017 1255 SERVICES Pathologist: Tony Vallejo MD Specimen: Kidney, Left PART A KIDNEY, LEFT, NEPHRECTOMY (1076 GRAMS):CHRONIC AND ACUTE PYELONEPHRITIS.NO EVIDENCE OF MALIGNANCYFOUR BENIGN LYMPH NODES 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 Signing Pathologist Direct Phone Line: [phone] signed by Tony Vallejo MD on 12/07/2017 [...] who concurs with a diagnosis of endosalpingiosis. 88042, 96220, 19939H7, 53730Zguqcyq of left kidney, chronic infection Left kidney [...] specimen.There is a 3.5 x 2.0 cm, ill- defined, dark-red to mary-white, dense area of fibrous [...] A1, parallel vascular and possible ureteral resection margins;A2, area of dense insertion; A3-A8, architectural representative sections of area of dense adhesions at possible UPJ; A9-A16, architectural representative sections of pelvis and caliceal system; A17-A18, architectural representative sections of renal parenchyma; A19-A21, one bisected lymph node in each cut surface; A22-A28, one serially sectioned lymph node. DB/ewPerformed.The following special studies were performed on this case and the interpretation is incorporated in the diagnostic report above:BLOCK A20- CK7, CK20, PAX8, ER, [id number]- CK7, CK20, PAX8, KI-67The immunohistochemistry test was developed and its performance characteristics determined by [facility], Pathology Laboratory. It has not been cleared or approved by the U.S. Food and Drug Administration. The FDA has determined that such clearance or approval is not necessary. The test is used for clinical purposes. It should not be regarded as investigational or for research. This laboratory is certified under the Clinical Laboratory Improvement Amendments of 1988 (CLIA- 88) as qualified to perform high complexity clinical laboratory testing.BLOOD [id number] 06:00:00 Test Item Value Reference Range Interpretation Comments CULTURE (BEAKER) (test No growth in 5 days code = 1095) POCT-GLUCOSE [id number] 07:56:00 Test Item Value Reference Range Interpretation Comments POC-GLUCOSE METER 287 mg/dL 70-110 H TESTED AT [facility] 6720 (BEAKER) (test code = [place] 1538) [address] BASIC METABOLIC [id number] 07:51:00 Test Item Value Reference Range Interpretation Comments SODIUM (BEAKER) 138 meq/L 136-145 (test code = 381) POTASSIUM (BEAKER) 4.0 meq/L 3.5-5.1 (test code = 379) CHLORIDE (BEAKER) 105 meq/L 98-107 (test code = 382) CO2 (BEAKER) (test 24 meq/L 22-29 code = 355) BLOOD UREA NITROGEN 9 mg/dL 7-21 (BEAKER) (test code = 354) CREATININE (BEAKER) 1.01 mg/dL 0.57-1.25 (test code = 358) GLUCOSE RANDOM 215 mg/dL 70-105 H (BEAKER) (test code = 652) CALCIUM (BEAKER) 9.0 mg/dL 8.4-10.2 (test code = 697) EGFR (BEAKER) (test 56 mL/min/1.73 ESTIMA PIERRE GFR IS code = 1092) sq m NOT ACCURATE CREATININE CLEARANCE IN PREDICTING GLOMERULAR FILTRATION RATE . ESTIMATED GFR I S NOT APPLICABLE FOR DIALYSIS PATIEN TS. CBC W/PLT COUNT & AUTO [id number] 05:57:00 Test Item Value Reference Range Interpretation Comments WHITE BLOOD CELL COUNT (BEAKER) 10.0 K/ L 3.5-10.5 (test code = 775) RED BLOOD CELL COUNT (BEAKER) 3.72 M/ L 3.93-5.22 L (test code = 761) HEMOGLOBIN (BEAKER) (test code = 10.1 GM/DL 11.2-15.7 L 410) HEMATOCRIT (BEAKER) (test code = 32.5 % 34.1-44.9 L 411) MEAN CORPUSCULAR VOLUME (BEAKER) 87.4 fL 79.4-94.8 (test code = 753) MEAN CORPUSCULAR HEMOGLOBIN 27.2 pg 25.6-32.2 (BEAKER) (test code = 751) MEAN CORPUSCULAR HEMOGLOBIN CONC 31.1 GM/DL 32.2-35.5 L (BEAKER) (test code = 752) RED CELL DISTRIBUTION WIDTH 13.7 % 11.7-14.4 (BEAKER) (test code = 412) PLATELET COUNT (BEAKER) (test 290 K/CU MM 150-450 code = 756) MEAN PLATELET VOLUME (BEAKER) 8.7 fL 9.4-12.3 L (test code = 754) NUCLEATED RED BLOOD CELLS 0 /100 WBC 0-0 (BEAKER) (test code = 413) NEUTROPHILS RELATIVE PERCENT 68 % (BEAKER) (test code = 429) LYMPHOCYTES RELATIVE PERCENT 16 % (BEAKER) (test code = 430) MONOCYTES RELATIVE PERCENT 11 % (BEAKER) (test code = 431) EOSINOPHILS RELATIVE PERCENT 3 % (BEAKER) (test code = 432) BASOPHILS RELATIVE PERCENT 1 % (BEAKER) (test code = 437) NEUTROPHILS ABSOLUTE COUNT 6.82 K/ L 1.56-6.13 H (BEAKER) (test code = 670) LYMPHOCYTES ABSOLUTE COUNT 1.56 K/ L 1.18-3.74 (BEAKER) (test code = 414) MONOCYTES ABSOLUTE COUNT (BEAKER) 1.13 K/ L 0.24-0.36 H (test code = 415) EOSINOPHILS ABSOLUTE COUNT 0.28 K/ L 0.04-0.36 (BEAKER) (test code = 416) BASOPHILS ABSOLUTE COUNT (BEAKER) 0.05 K/ L 0.01-0.08 (test code = 417) IMMATURE GRANULOCYTES-RELATIVE 2 % 0-1 H PERCENT (BEAKER) (test code = 2801) POCT-GLUCOSE [id number] 21:03:00 Test Item Value Reference Range Interpretation Comments POC-GLUCOSE METER 166 mg/dL 70-110 H TESTED AT [place] [address] [facility] (test code = [place] 1538) [address] POCT-GLUCOSE [id number] 18:19:00 Test Item Value Reference Range Interpretation Comments POC-GLUCOSE METER 199 mg/dL 70-110 H TESTED AT [place] [address] ([facility] (test code = [place] 1538) [address] POCT-GLUCOSE [id number] 12:08:00 Test Item Value Reference Range Interpretation Comments POC-GLUCOSE METER 160 mg/dL 70-110 H TESTED AT [facility] 67[address] (BEAKER) (test code = [place] 1538) [address] POCT-GLUCOSE [id number] 09:10:00 Test Item Value Reference Range Interpretation Comments POC-GLUCOSE METER 170 mg/dL 70-110 H TESTED AT [facility] 67[address] (BEAKER) (test [facility] = [facility] 1538) [address] BASIC METABOLIC [id number] 07:03:00 Test Item Value Reference Range Interpretation Comments SODIUM (BEAKER) 135 meq/L 136-145 L (test code = 381) POTASSIUM (BEAKER) 4.0 meq/L 3.5-5.1 (test code = 379) CHLORIDE (BEAKER) 105 meq/L 98-107 (test code = 382) CO2 (BEAKER) (test 21 meq/L 22-29 L code = 355) BLOOD UREA NITROGEN 11 mg/dL 7-21 (BEAKER) (test code = 354) CREATININE (BEAKER) 0.83 mg/dL 0.57-1.25 (test code = 358) GLUCOSE RANDOM 139 mg/dL 70-105 H (BEAKER) (test code = 652) CALCIUM (BEAKER) 8.5 mg/dL 8.4-10.2 (test code = 697) EGFR (BEAKER) (test 71 mL/min/1.73 ESTIMA PIERRE GFR IS code = 1092) sq m NOT ACCURATE CREATININE CLEARANCE IN PREDICTING GLOMERULAR FILTRATION RATE . ESTIMATED GFR I S NOT APPLICABLE FOR DIALYSIS PATIEN TS. CBC W/PLT COUNT & AUTO [id number] 06:26:00 Test Item Value Reference Range Interpretation Comments WHITE BLOOD CELL COUNT (BEAKER) 11.8 K/ L 3.5-10.5 H (test code = 775) RED BLOOD CELL COUNT (BEAKER) 3.52 M/ L 3.93-5.22 L (test code = 761) HEMOGLOBIN (BEAKER) (test code = 9.7 GM/DL 11.2-15.7 L 410) HEMATOCRIT (BEAKER) (test code = 30.7 % 34.1-44.9 L 411) MEAN CORPUSCULAR VOLUME (BEAKER) 87.2 fL 79.4-94.8 (test code = 753) MEAN CORPUSCULAR HEMOGLOBIN 27.6 pg 25.6-32.2 (BEAKER) (test code = 751) MEAN CORPUSCULAR HEMOGLOBIN CONC 31.6 GM/DL 32.2-35.5 L (BEAKER) (test code = 752) RED CELL DISTRIBUTION WIDTH 13.7 % 11.7-14.4 (BEAKER) (test code = 412) PLATELET COUNT (BEAKER) (test 239 K/CU MM 150-450 code = 756) MEAN PLATELET VOLUME (BEAKER) 8.6 fL 9.4-12.3 L (test code = 754) NUCLEATED RED BLOOD CELLS 0 /100 WBC 0-0 (BEAKER) (test code = 413) NEUTROPHILS RELATIVE PERCENT 75 % (BEAKER) (test code = 429) LYMPHOCYTES RELATIVE PERCENT 13 % (BEAKER) (test code = 430) MONOCYTES RELATIVE PERCENT 10 % (BEAKER) (test code = 431) EOSINOPHILS RELATIVE PERCENT 1 % (BEAKER) (test code = 432) BASOPHILS RELATIVE PERCENT 0 % (BEAKER) (test code = 437) NEUTROPHILS ABSOLUTE COUNT 8.87 K/ L 1.56-6.13 H (BEAKER) (test code = 670) LYMPHOCYTES ABSOLUTE COUNT 1.50 K/ L 1.18-3.74 (BEAKER) (test code = 414) MONOCYTES ABSOLUTE COUNT (BEAKER) 1.12 K/ L 0.24-0.36 H (test code = 415) EOSINOPHILS ABSOLUTE COUNT 0.16 K/ L 0.04-0.36 (BEAKER) (test code = 416) BASOPHILS ABSOLUTE COUNT (BEAKER) 0.03 K/ L 0.01-0.08 (test code = 417) IMMATURE GRANULOCYTES-RELATIVE 1 % 0-1 PERCENT (BEAKER) (test code = 2801) POCT-GLUCOSE [id number] 20:55:00 Test Item Value Reference Range Interpretation Comments POC-GLUCOSE METER 219 mg/dL 70-110 H TESTED AT [facility] 6720 (BEAKER) (test code = SYDNEE ANDRE 1538) [address] BASIC METABOLIC [id number] 13:42:00 Test Item Value Reference Range Interpretation Comments SODIUM (BEAKER) 141 meq/L 136-145 (test code = 381) POTASSIUM (BEAKER) 4.5 meq/L 3.5-5.1 Specimen slightly (test code = 379) hemolyzed CHLORIDE (BEAKER) 109 meq/L 98-107 H (test code = 382) CO2 (BEAKER) (test 22 meq/L 22-29 code = 355) BLOOD UREA NITROGEN 9 mg/dL 7-21 (BEAKER) (test code = 354) CREATININE (BEAKER) 0.97 mg/dL 0.57-1.25 Specimen slightly (test code = 358) hemolyzed GLUCOSE RANDOM 229 mg/dL 70-105 H (BEAKER) (test code = 652) CALCIUM (BEAKER) 8.9 mg/dL 8.4-10.2 (test code = 697) EGFR (BEAKER) (test 59 mL/min/1.73 ESTIMA PIERRE GFR IS code = 1092) sq m NOT ACCURATE CREATININE CLEARANCE IN PREDICTING GLOMERULAR FILTRATION RATE . ESTIMATED GFR I S NOT APPLICABLE FOR DIALYSIS PATIEN TS. HEMOGLOBIN AND [id number] 13:15:00 Test Item Value Reference Range Interpretation Comments HEMOGLOBIN (BEAKER) (test code = 10.8 GM/DL 11.2-15.7 L 410) HEMATOCRIT (BEAKER) (test code = 34.0 % 34.1-44.9 L 411) URINE [id number] 10:10:00 Test Item Value Reference Range Interpretation Comments CULTURE (BEAKER) See comment A 70-79,000 c ol/mL (test code = 1095) Beronica a lbicans CALCIUM, [id number] 10:01:00 Test Item Value Reference Range Interpretation Comments CALCIUM IONIZED (BEAKER) (test 1.09 mmol/L 1.12-1.27 L code = 698) PH, BLOOD (BEAKER) (test code = 7.38 1810) BLOOD GAS, [id number] 10:01:00 Test Item Value Reference Range Interpretation Comments PH ARTERIAL (BEAKER) (test code = 7.38 7.35-7.45 383) PCO2 ARTERIAL (BEAKER) (test code 43 mmHg 35-45 = 384) PO2 ARTERIAL (BEAKER) (test code 82 mmHg 80-90 = 385) O2 SATURATION ARTERIAL (BEAKER) 95.8 % 96.0-97.0 L (test code = 386) HCO3 ARTERIAL (BEAKER) (test code 25 mmol/L 21-29 = 388) BASE EXCESS ARTERIAL (BEAKER) -0.7 mmol/L -2.0-3.0 (test code = 387) PATIENT TEMPERATURE (BEAKER) 37.0 C (test code = 1818) FIO2 (BEAKER) (test code = 1819) 100.0 % SODIUM NA-STAT [id number] 10:01:00 Test Item Value Reference Range Interpretation Comments SODIUM (BEAKER) (test code = 381) 134 meq/L 135-148 L GLUCOSE-STAT [id number] 10:01:00 Test Item Value Reference Range Interpretation Comments GLUCOSE RANDOM (BEAKER) (test code 192 mg/dL 70-110 H = 652) HGB/HCT (H&H) - STAT [id number] 10:01:00 Test Item Value Reference Range Interpretation Comments HEMOGLOBIN (BEAKER) (test code = 11.7 g/dL 12.0-15.0 L 410) HEMATOCRIT (BEAKER) (test code = 34.0 % 36.0-45.0 L 411) POTASSIUM-STAT [id number] 09:56:00 Test Item Value Reference Range Interpretation Comments POTASSIUM (BEAKER) (test code = 4.0 meq/L 3.6-5.5 379) LACTIC ACID, VENOUS, WHOLE [id number] 06:39:00 Test Item Value Reference Range Interpretation Comments LACTATE BLOOD VENOUS 0.7 mmol/L 0.5-2.2 Specime n slightly (2) (BEAKER) (test hemolyzed code = 2872) Effective 12/16/2015: Units/Reference Range ChangeNew: 0.5-2.2 mmol/L Previous: 5-20 mg/[id number] 06:36:00 Test Item Value Reference Range Interpretation Comments PHOSPHORUS (BEAKER) (test code = 3.7 mg/dL 2.3-4.7 604) [id number] 06:36:00 Test Item Value Reference Range Interpretation Comments MAGNESIUM (BEAKER) (test code = 1.6 mg/dL 1.6-2.6 627) BASIC METABOLIC [id number] 06:36:00 Test Item Value Reference Range Interpretation Comments SODIUM (BEAKER) 135 meq/L 136-145 L (test code = 381) POTASSIUM (BEAKER) 4.0 meq/L 3.5-5.1 (test code = 379) CHLORIDE (BEAKER) 102 meq/L 98-107 (test code = 382) CO2 (BEAKER) (test 22 meq/L 22-29 code = 355) BLOOD UREA NITROGEN 9 mg/dL 7-21 (AKER) (test code = 354) CREATININE (AKER) 0.95 mg/dL 0.57-1.25 (test code = 358) GLUCOSE RANDOM 181 mg/dL 70-105 H ([facility]) (test code = 652) CALCIUM (BEAKER) 9.5 mg/dL 8.4-10.2 (test code = 697) EGFR ([facility]) (test 61 mL/min/1.73 ESTIMA PIERRE GFR IS code = 1092) sq m NOT ACCURATE CREATININE CLEARANCE IN PREDICTING GLOMERULAR FILTRATION RATE . ESTIMATED GFR I S NOT APPLICABLE FOR DIALYSIS PATIEN TS. POCT-GLUCOSE [id number] 21:05:00 Test Item Value Reference Range Interpretation Comments POC-GLUCOSE METER 215 mg/dL 70-110 H TESTED AT [place] [address] ([facility]) (test code = [facility] 1538) [address] POCT-GLUCOSE [id number] 17:48:00 Test Item Value Reference Range Interpretation Comments POC-GLUCOSE METER 150 mg/dL 70-110 H TESTED AT [place] [address] ([facility]) (test code = [facility] 1538) [address] POCT-GLUCOSE [id number] 12:00:00 Test Item Value Reference Range Interpretation Comments POC-GLUCOSE METER 204 mg/dL 70-110 H TESTED AT [place] [address] ([facility]) (test code = [facility] 1538) [address] URINE [id number] 08:15:00 Test Item Value Reference Range Interpretation Comments CULTURE ([facility]) (test 40-49,000 col/mL skin code = 1095) mckenna POCT-GLUCOSE [id number] 07:41:00 Test Item Value Reference Range Interpretation Comments POC-GLUCOSE METER 154 mg/dL 70-110 H TESTED AT [place] [address] ([facility]) (test code = [facility] 1538) [address] [id number] 04:29:00 Test Item Value Reference Range Interpretation Comments PHOSPHORUS ([facility]) (test code = 3.2 mg/dL 2.3-4.7 604) [id number] 04:29:00 Test Item Value Reference Range Interpretation Comments MAGNESIUM (BEAKER) (test code = 1.6 mg/dL 1.6-2.6 627) BASIC METABOLIC [id number] 04:29:00 Test Item Value Reference Range Interpretation Comments SODIUM (BEAKER) 132 meq/L 136-145 L (test code = 381) POTASSIUM (BEAKER) 4.3 meq/L 3.5-5.1 (test code = 379) CHLORIDE (BEAKER) 102 meq/L 98-107 (test code = 382) CO2 (BEAKER) (test 23 meq/L 22-29 code = 355) BLOOD UREA NITROGEN 14 mg/dL 7-21 (BEAKER) (test code = 354) CREATININE (BEAKER) 1.01 mg/dL 0.57-1.25 (test code = 358) GLUCOSE RANDOM 186 mg/dL 70-105 H (BEAKER) (test code = 652) CALCIUM (BEAKER) 9.3 mg/dL 8.4-10.2 (test code = 697) EGFR (BEAKER) (test 56 mL/min/1.73 ESTIMA PIERRE GFR IS code = 1092) sq m NOT ACCURATE CREATININE CLEARANCE IN PREDICTING GLOMERULAR FILTRATION RATE . ESTIMATED GFR I S NOT APPLICABLE FOR DIALYSIS PATIEN TS. LACTIC ACID, VENOUS, WHOLE [id number] 04:27:00 Test Item Value Reference Range Interpretation Comments LACTATE BLOOD VENOUS (2) (BEAKER) 0.7 mmol/L 0.5-2.2 (test code = 2872) Effective 12/16/2015: Units/Reference Range ChangeNew: 0.5-2.2 mmol/L Previous: 5-20 mg/dLCBC W/PLT COUNT & AUTO [id number] 04:11:00 Test Item Value Reference Range Interpretation Comments WHITE BLOOD CELL COUNT (BEAKER) 13.9 K/ L 3.5-10.5 H (test code = 775) RED BLOOD CELL COUNT (BEAKER) 4.13 M/ L 3.93-5.22 (test code = 761) HEMOGLOBIN (BEAKER) (test code = 11.6 GM/DL 11.2-15.7 410) HEMATOCRIT (BEAKER) (test code = 35.7 % 34.1-44.9 411) MEAN CORPUSCULAR VOLUME (BEAKER) 86.4 fL 79.4-94.8 (test code = 753) MEAN CORPUSCULAR HEMOGLOBIN 28.1 pg 25.6-32.2 (BEAKER) (test code = 751) MEAN CORPUSCULAR HEMOGLOBIN CONC 32.5 GM/DL 32.2-35.5 (BEAKER) (test code = 752) RED CELL DISTRIBUTION WIDTH 13.8 % 11.7-14.4 (BEAKER) (test code = 412) PLATELET COUNT (BEAKER) (test 266 K/CU MM 150-450 code = 756) MEAN PLATELET VOLUME (BEAKER) 8.6 fL 9.4-12.3 L (test code = 754) NUCLEATED RED BLOOD CELLS 0 /100 WBC 0-0 (BEAKER) (test code = 413) NEUTROPHILS RELATIVE PERCENT 77 % (BEAKER) (test code = 429) LYMPHOCYTES RELATIVE PERCENT 11 % (BEAKER) (test code = 430) MONOCYTES RELATIVE PERCENT 10 % (BEAKER) (test code = 431) EOSINOPHILS RELATIVE PERCENT 1 % (BEAKER) (test code = 432) BASOPHILS RELATIVE PERCENT 0 % (BEAKER) (test code = 437) NEUTROPHILS ABSOLUTE COUNT 10.67 K/ L 1.56-6.13 H (BEAKER) (test code = 670) LYMPHOCYTES ABSOLUTE COUNT 1.55 K/ L 1.18-3.74 (BEAKER) (test code = 414) MONOCYTES ABSOLUTE COUNT (BEAKER) 1.31 K/ L 0.24-0.36 H (test code = 415) EOSINOPHILS ABSOLUTE COUNT 0.15 K/ L 0.04-0.36 (BEAKER) (test code = 416) BASOPHILS ABSOLUTE COUNT (BEAKER) 0.03 K/ L 0.01-0.08 (test code = 417) IMMATURE GRANULOCYTES-RELATIVE 1 % 0-1 PERCENT (BEAKER) (test code = 2801) POCT-GLUCOSE [id number] 22:31:00 Test Item Value Reference Range Interpretation Comments POC-GLUCOSE METER 206 mg/dL 70-110 H TESTED AT [facility] 6720 (BEAKER) (test code = SYDNEE PEREZ [place] 1538) [address] POCT-GLUCOSE [id number] 17:31:00 Test Item Value Reference Range Interpretation Comments POC-GLUCOSE METER 207 mg/dL 70-110 H TESTED AT [facility] 6720 (ARRON) (test code = SYDNEE PEREZ [place] Antonia8) [address] ANG, NEPHROSTOMY, PERC, EXTERNAL [id number] 14:49:00Reason for exam:- >Needs left nephrostomy tube. Please obtain left kidney [...] maximum sterile barrier protection a mask, cap,sterile gloves, sterile drape, sterile gown, and a cutaneous antiseptic was utilized.Fluoro time in minutes: 2.2 minutes. Total dose 63.7 mG. Seven images Technique: After informed written consent wasobtained, the patient was prepped and draped in the usual sterile manner. Access was obtained usingsonographic guidance. A 21- gauge Chiba needle was advanced into the upper collecting system. Subsequently, a wire was advanced through the needle. The tract was dilated to 8 Thai. A small bore catheter was advanced into the upper collecting system. A nephrostogram demonstrated marked hydronephrosis. Approximately 400 cc of. Once urine was removed from the upper collecting system. A nurse was present and monitored blood pressure measurements, pulse oximetry and ECG tracings. The patient tolerated the procedure well. Impression:Successful, uncomplicated placement of a left percutaneous nephrostomy tube. Signed: Soledad Esquivel Verified Date/Time: 11/28/2017 14:49:28 Reading Location: [place] [id number] [facility] Reading Room 02:49 PMPOCT-GLUCOSE [id number] 11:01:00 Test Item Value Reference Range Interpretation Comments POC-GLUCOSE METER 195 mg/dL 70-110 H TESTED AT [facility] 6720 (ARRON) (test code = SYDNEE PEREZ [place] 1538) [address] POCT-LACTIC ACID, [id number] 04:41:00 Test Item Value Reference Range Interpretation Comments POC-LACTIC ACID, 1.2 mmol/L 0.9-1.7 TESTED AT [facility] 6720 VENOUS (ARRON) (test SYDNEE PEREZ [place] code = 2805) [address] LEGIONELLA ANTIGEN, [id number] 04:06:00 Test Item Value Reference Range Interpretation Comments L. PNEUMOPHILA Negative - see Negative fo r L. SEROGP 1 UR AG comment pneumophila (ARRON) (test code serogrou p 1 antigen, = 1156) suggesting no r ecent or current infe ction with this serog roup. Legionellosis c annot be ruled out si nce other serogroup s and species may cau se disease. STREP PNEUMONIAE [id number] 04:04:00 Test Item Value Reference Range Interpretation Comments STREP PNEUMONIAE Presumptive negative Presumptive negative ANTIGEN (ARRON) for pneumococcal for pneumococcal (test code = 1615) pneumonia - see pneumonia - see comment commen Presumptive negative for pneumococcal pneumonia, suggesting no current or recent pneumococcal infection. Infection due to S. pneumoniae cannot be ruled out since the antigen present in the sample may be below the detection limit of the test.PROTHROMBIN [id number] 02:58:00 Test Item Value Reference Range Interpretation Comments PROTIME (ARRON) (test code = 14.1 seconds 11.7-14.7 759) INR (ARRON) (test code = 370) 1.1 <=5.9 RECOMMENDED COUMADIN/WARFARIN INR THERAPY RANGESSTANDARD DOSE: 2.0 - 3.0 Includes: PROPHYLAXIS forvenous thrombosis, systemic embolization; TREATMENT for venous thrombosis and/or pulmonary embolus.HIGH RISK: Target INR is 2.5-3.5 for patients with mechanical heart valves.[id number] 02:56:00 Test Item Value Reference Range Interpretation Comments PHOSPHORUS ([place]) (test code = 3.2 mg/dL 2.3-4.7 604) [id number] 02:56:00 Test Item Value Reference Range Interpretation Comments MAGNESIUM ([place]) (test code = 1.9 mg/dL 1.6-2.6 627) HEPATIC FUNCTION [id number] 02:56:00 Test Item Value Reference Range Interpretation Comments TOTAL PROTEIN (BEAKER) (test code = 7.7 gm/dL 6.0-8.3 770) ALBUMIN (BEAKER) (test code = 1145) 3.9 g/dL 3.5-5.0 BILIRUBIN TOTAL (BEAKER) (test code 0.3 mg/dL 0.2-1.2 = 377) BILIRUBIN DIRECT (BEAKER) (test 0.2 mg/dL 0.1-0.5 code = 706) ALKALINE PHOSPHATASE (BEAKER) (test 113 U/L 40-150 code = 346) AST (SGOT) (BEAKER) (test code = 10 U/L 5-34 353) ALT (SGPT) (BEAKER) (test code = 17 U/L 6-55 347) BASIC METABOLIC [id number] 02:30:00 Test Item Value Reference Range Interpretation Comments SODIUM (BEAKER) 133 meq/L 136-145 L (test code = 381) POTASSIUM (BEAKER) 4.5 meq/L 3.5-5.1 (test code = 379) CHLORIDE (BEAKER) 97 meq/L 98-107 L (test code = 382) CO2 (BEAKER) (test 25 meq/L 22-29 code = 355) BLOOD UREA NITROGEN 18 mg/dL 7-21 (BEAKER) (test code = 354) CREATININE (BEAKER) 1.32 mg/dL 0.57-1.25 H (test code = 358) GLUCOSE RANDOM 187 mg/dL 70-105 H (BEAKER) (test code = 652) CALCIUM (BEAKER) 10.1 mg/dL 8.4-10.2 (test code = 697) EGFR (BEAKER) (test 41 mL/min/1.73 ESTIMA PIERRE GFR IS code = 1092) sq m NOT ACCURATE CREATININE CLEARANCE IN PREDICTING GLOMERULAR FILTRATION RATE . ESTIMATED GFR I S NOT APPLICABLE FOR DIALYSIS PATIEN TS. LACTIC ACID, VENOUS, WHOLE [id number] 02:26:00 Test Item Value Reference Range Interpretation Comments LACTATE BLOOD VENOUS (2) (BEAKER) 1.3 mmol/L 0.5-2.2 (test code = 2872) Effective 12/16/2015: Units/Reference Range ChangeNew: 0.5-2.2 mmol/L Previous: 5-20 mg/dLCBC W/PLT COUNT & AUTO [id number] 02:17:00 Test Item Value Reference Range Interpretation Comments WHITE BLOOD CELL COUNT (BEAKER) 14.2 K/ L 3.5-10.5 H (test code = 775) RED BLOOD CELL COUNT (BEAKER) 4.61 M/ L 3.93-5.22 (test code = 761) HEMOGLOBIN (BEAKER) (test code = 12.9 GM/DL 11.2-15.7 410) HEMATOCRIT (BEAKER) (test code = 39.5 % 34.1-44.9 411) MEAN CORPUSCULAR VOLUME (BEAKER) 85.7 fL 79.4-94.8 (test code = 753) MEAN CORPUSCULAR HEMOGLOBIN 28.0 pg 25.6-32.2 (BEAKER) (test code = 751) MEAN CORPUSCULAR HEMOGLOBIN CONC 32.7 GM/DL 32.2-35.5 (BEAKER) (test code = 752) RED CELL DISTRIBUTION WIDTH 13.7 % 11.7-14.4 (BEAKER) (test code = 412) PLATELET COUNT (BEAKER) (test 342 K/CU MM 150-450 code = 756) MEAN PLATELET VOLUME (BEAKER) 8.5 fL 9.4-12.3 L (test code = 754) NUCLEATED RED BLOOD CELLS 0 /100 WBC 0-0 (BEAKER) (test code = 413) NEUTROPHILS RELATIVE PERCENT 62 % (BEAKER) (test code = 429) LYMPHOCYTES RELATIVE PERCENT 25 % (BEAKER) (test code = 430) MONOCYTES RELATIVE PERCENT 9 % (BEAKER) (test code = 431) EOSINOPHILS RELATIVE PERCENT 2 % (BEAKER) (test code = 432) BASOPHILS RELATIVE PERCENT 1 % (BEAKER) (test code = 437) NEUTROPHILS ABSOLUTE COUNT 8.79 K/ L 1.56-6.13 H (BEAKER) (test code = 670) LYMPHOCYTES ABSOLUTE COUNT 3.54 K/ L 1.18-3.74 (BEAKER) (test code = 414) MONOCYTES ABSOLUTE COUNT (BEAKER) 1.31 K/ L 0.24-0.36 H (test code = 415) EOSINOPHILS ABSOLUTE COUNT 0.25 K/ L 0.04-0.36 (BEAKER) (test code = 416) BASOPHILS ABSOLUTE COUNT (BEAKER) 0.08 K/ L 0.01-0.08 (test code = 417) IMMATURE GRANULOCYTES-RELATIVE 2 % 0-1 H PERCENT (BEAKER) (test code = 2801) POCT-LACTIC ACID, [id number] 02:01:00 Test Item Value Reference Range Interpretation Comments POC-LACTIC ACID, 2.9 mmol/L 0.9-1.7 H TESTED AT [facility] 67[address] VENOUS (BEAKER) [facility] code = 2805) [address] CT, [id number] 00:55:00Addendum BeginsREPORT STATUS:A Addendum: Benign as well as neoplastic processes would be included in differential diagnosis for the left UPJ level obstruction. Results including the possibility of an infected obstructed left renal collecting system discussed with Dr. Singh. Signed: Kimberlyn Arellano MDReport Verified Date/Time: 11/28/2017 00:55:04 Reading Location: [address] Reading RoomAddendum EndsFINAL REPORT EXAMINATION: CT [...] is normal in caliber. Scattered calcific atherosclerotic héctor ques are noted involving the aorta. Further characterization [...] changes, edema related to obstruction or superimposed in fection should also be considered. Recommend clinical correlation. Left perinephric-retroperitoneal adenopathy, increased from previous. Reactive versus neoplastic. Mild right hydronephrosis, improved from 06/22/2017. Tiny 2 mm nonobstructing right renal calculus. Colonic diverticulosis. Mild infiltration of the soft tissues along the left colon, extension of perinephric edema versus early diverticulitis. Constipation. Mildly prominent spleen, 13 cm. Signed: Kimberlyn Arellano MDReport Verified Date/Time:11/28/2017 00:48:48 Reading Location: [address] Reading Room URINALYSIS W/ [id number] 00:09:00 Test Item Value Reference Range Interpretation Comments COLOR (BEAKER) (test code Yellow = 470) CLARITY (BEAKER) (test Hazy code = 469) SPECIFIC GRAVITY UA 1.011 1.001-1.035 (BEAKER) (test code = 468) PH UA (BEAKER) (test code 6.0 5.0-8.0 = 467) PROTEIN UA (BEAKER) (test 10 mg/dL Negative A code = 464) GLUCOSE UA (BEAKER) (test Negative Negative code = 365) KETONES UA (BEAKER) (test Negative Negative code = 371) BILIRUBIN UA (BEAKER) Negative Negative (test code = 462) BLOOD UA (BEAKER) (test Small Negative A code = 461) NITRITE UA (BEAKER) (test Negative Negative code = 465) LEUKOCYTE ESTERASE UA Large Negative A (BEAKER) (test code = 466) UROBILINOGEN UA (BEAKER) 0.2 mg/dL 0.2-1.0 (test code = 463) RBC UA (BEAKER) (test code 26 /HPF = 519) WBC UA (BEAKER) (test code 80 /HPF = 520) BACTERIA (BEAKER) (test Rare code = 517) SQUAMOUS EPITHELIAL 1 /HPF (BEAKER) (test code = 516) AMORPHOUS CRYSTALS Rare (BEAKER) (test code = 1584) SOURCE(BEAKER) (test code Urine, Clean Catch = 1054) BLOOD [id number] 17:00:00 Test Item Value Reference Range Interpretation Comments CULTURE (BEAKER) (test No growth in 5 days code = 1095) BLOOD [id number] 15:30:00 Test Item Value Reference Range Interpretation Comments CULTURE (BEAKER) A From Aerobi c Bottle (test code = Only Coagulase 1095) negative Staphylococcus GRAM STAIN From aerobic RESULT ([facility]) bottle only: (test code = gram positive 1123) cocci in clusters 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 Other organisms and resistance markers not contained in this PCR panel cannot be excluded and follow-up of traditional culture results is required. This sample was tested at the [facility] Clinical Microbiology Laboratory using the [employer] Blood Culture ID Panel.This test is FDA cleared for in vitro diagnostic use and has been verified and approved by the [facility] for [facility] use. Reference Range: Not DetectedBLOOD [id number] 23:00:00 Test Item Value Reference Range Interpretation Comments CULTURE ([facility]) (test No growth in 5 days code = 1095) MISCELLANEOUS LAB [id number] 14:42:00 Test Item Value Reference Range Interpretation Comments SCAN RESULT (test code = 8748048) Result comments: Coagulase Negative Staphylococcus Species (CoNS) [...] [facility] Clinical Microbiology Laboratory using the [employer] Blood Culture ID Panel. This test is FDA cleared for in vitro diagnostic use and has been verified and approved by the [facility] Clinical Microbiology laboratory for clinical use. Reference Range: Not DetectedPOCT-GLUCOSE [id number] 13:10:00 Test Item Value Reference Range Interpretation Comments POC-GLUCOSE METER 196 mg/dL 70-110 H TESTED AT [facility] 6720 ([facility]) (test code = SYDNEE ANDRE 1538) [id number] URINE [id number] 11:19:00 Test Item Value Reference Range Interpretation Comments CULTURE ([facility]) (test A >100, 000 col/mL Beronica code = 1095) albicans <10,000 col/mL skin floraPOCT-GLUCOSE [id number] 07:50:00 Test Item Value Reference Range Interpretation Comments POC-GLUCOSE METER 190 mg/dL 70-110 H TESTED AT [facility] 6720 (BEAKER) (test code = SYDNEE ANDRE 1538) [id number] 06:18:00 Test Item Value Reference Range Interpretation Comments PHOSPHORUS (BEAKER) (test code = 3.3 mg/dL 2.3-4.7 604) [id number] 06:18:00 Test Item Value Reference Range Interpretation Comments MAGNESIUM (BEAKER) (test code = 1.4 mg/dL 1.6-2.6 L 627) BASIC METABOLIC [id number] 06:18:00 Test Item Value Reference Range Interpretation Comments SODIUM (BEAKER) 138 meq/L 136-145 (test code = 381) POTASSIUM (BEAKER) 3.6 meq/L 3.5-5.1 (test code = 379) CHLORIDE (BEAKER) 105 meq/L 98-107 (test code = 382) CO2 (BEAKER) (test 23 meq/L 22-29 code = 355) BLOOD UREA NITROGEN 17 mg/dL 7-21 (BEAKER) (test code = 354) CREATININE (BEAKER) 1.55 mg/dL 0.57-1.25 H (test code = 358) GLUCOSE RANDOM 158 mg/dL 70-105 H (BEAKER) (test code = 652) CALCIUM (BEAKER) 8.5 mg/dL 8.4-10.2 (test code = 697) EGFR (BEAKER) (test 35 mL/min/1.73 ESTIMA PIERRE GFR IS code = 1092) sq m NOT ACCURATE CREATININE CLEARANCE IN PREDICTING GLOMERULAR FILTRATION RATE . ESTIMATED GFR I S NOT APPLICABLE FOR DIALYSIS PATIEN TS. CBC W/PLT COUNT & AUTO [id number] 06:01:00 Test Item Value Reference Range Interpretation Comments WHITE BLOOD CELL COUNT (BEAKER) 12.9 K/ L 3.5-10.5 H (test code = 775) RED BLOOD CELL COUNT (BEAKER) 3.78 M/ L 3.93-5.22 L (test code = 761) HEMOGLOBIN (BEAKER) (test code = 10.6 GM/DL 11.2-15.7 L 410) HEMATOCRIT (BEAKER) (test code = 32.7 % 34.1-44.9 L 411) MEAN CORPUSCULAR VOLUME (BEAKER) 86.5 fL 79.4-94.8 (test code = 753) MEAN CORPUSCULAR HEMOGLOBIN 28.0 pg 25.6-32.2 (BEAKER) (test code = 751) MEAN CORPUSCULAR HEMOGLOBIN CONC 32.4 GM/DL 32.2-35.5 (BEAKER) (test code = 752) RED CELL DISTRIBUTION WIDTH 14.8 % 11.7-14.4 H (BEAKER) (test code = 412) PLATELET COUNT (BEAKER) (test 348 K/CU MM 150-450 code = 756) MEAN PLATELET VOLUME (BEAKER) 9.1 fL 9.4-12.3 L (test code = 754) NUCLEATED RED BLOOD CELLS 0 /100 WBC 0-0 (BEAKER) (test code = 413) NEUTROPHILS RELATIVE PERCENT 57 % (BEAKER) (test code = 429) LYMPHOCYTES RELATIVE PERCENT 19 % (BEAKER) (test code = 430) MONOCYTES RELATIVE PERCENT 13 % (BEAKER) (test code = 431) EOSINOPHILS RELATIVE PERCENT 4 % (BEAKER) (test code = 432) BASOPHILS RELATIVE PERCENT 1 % (BEAKER) (test code = 437) NEUTROPHILS ABSOLUTE COUNT 7.34 K/ L 1.56-6.13 H (BEAKER) (test code = 670) LYMPHOCYTES ABSOLUTE COUNT 2.48 K/ L 1.18-3.74 (BEAKER) (test code = 414) MONOCYTES ABSOLUTE COUNT (BEAKER) 1.68 K/ L 0.24-0.36 H (test code = 415) EOSINOPHILS ABSOLUTE COUNT 0.56 K/ L 0.04-0.36 H (BEAKER) (test code = 416) BASOPHILS ABSOLUTE COUNT (BEAKER) 0.08 K/ L 0.01-0.08 (test code = 417) IMMATURE GRANULOCYTES-RELATIVE 6 % 0-1 H PERCENT (BEAKER) (test code = 280) POCT-GLUCOSE [id number] 21:08:00 Test Item Value Reference Range Interpretation Comments POC-GLUCOSE METER 157 mg/dL 70-110 H TESTED AT [facility] 6720 (BEAKER) (test code = SYDNEE ANDRE 1538) [address] POCT-GLUCOSE [id number] 11:59:00 Test Item Value Reference Range Interpretation Comments POC-GLUCOSE METER 151 mg/dL 70-110 H TESTED AT [facility] 6720 (BEAKER) (test code = SYDNEE [place] 8214) [address] CBC W/PLT COUNT & AUTO [id number] 11:31:00 Test Item Value Reference Range Interpretation Comments WHITE BLOOD CELL COUNT (BEAKER) 11.6 K/ L 3.5-10.5 H (test code = 775) RED BLOOD CELL COUNT (BEAKER) 3.72 M/ L 3.93-5.22 L (test code = 761) HEMOGLOBIN (BEAKER) (test code = 10.3 GM/DL 11.2-15.7 L 410) HEMATOCRIT (BEAKER) (test code = 32.2 % 34.1-44.9 L 411) MEAN CORPUSCULAR VOLUME (BEAKER) 86.6 fL 79.4-94.8 (test code = 753) MEAN CORPUSCULAR HEMOGLOBIN 27.7 pg 25.6-32.2 (BEAKER) (test code = 751) MEAN CORPUSCULAR HEMOGLOBIN CONC 32.0 GM/DL 32.2-35.5 L (BEAKER) (test code = 752) RED CELL DISTRIBUTION WIDTH 14.7 % 11.7-14.4 H (BEAKER) (test code = 412) PLATELET COUNT (BEAKER) (test 281 K/CU MM 150-450 code = 756) MEAN PLATELET VOLUME (BEAKER) 9.1 fL 9.4-12.3 L (test code = 754) NUCLEATED RED BLOOD CELLS 0 /100 WBC 0-0 (BEAKER) (test code = 413) IMMATURE GRANULOCYTES-RELATIVE 5 % 0-1 H PERCENT (BEAKER) (test code = 2801) (MANUAL DIFFERENTIAL)[id number] 11:31:00 Test Item Value Reference Range Interpretation Comments NEUTROPHILS - REL (DIFF) (BEAKER) 60 % (test code = 6229) LYMPHOCYTES - REL (DIFF) (BEAKER) 21 % (test code = 1360) MONOCYTES - REL (DIFF) (BEAKER) 13 % (test code = 1361) EOSINOPHILS - REL (DIFF) (BEAKER) 1 % (test code = 1362) BASOPHILS - REL (DIFF) (BEAKER) 0 % (test code = 1363) METAMYELOCYTES-REL (DIFF) (BEAKER) 2 % 0-0 H (test code = 258) MYELOCYTES-REL (DIFF) (BEAKER) 3 % 0-0 H (test code = 1594) NEUTROPHILS - ABS (DIFF) (BEAKER) 6.96 K/ L 1.80-8.00 (test code = 1365) LYMPHOCYTES - ABS (DIFF) (BEAKER) 2.44 K/ L 1.48-4.50 (test code = 1366) MONOCYTES - ABS (DIFF) (BEAKER) 1.51 K/ L 0.00-1.30 H (test code = 1367) EOSINOPHILS - ABS (DIFF) (BEAKER) 0.12 K/ L 0.00-0.50 (test code = 1368) BASOPHILS - ABS (DIFF) (BEAKER) 0.00 K/ L 0.00-0.20 (test code = 1369) METAMYELOCTYES - ABS (DIFF) 0.23 K/ L 0.00-0.00 H (BEAKER) (test code = 261) MYELOCYTES-ABS (DIFF) (BEAKER) 0.35 K/ L 0.00-0.00 H (test code = 1593) TOTAL COUNTED (BEAKER) (test code = 100 1351) WBC MORPHOLOGY (BEAKER) (test code Normal = 487) PLT MORPHOLOGY (BEAKER) (test code Normal = 486) RBC MORPHOLOGY (BEAKER) (test code Normal = 762) POCT-GLUCOSE [id number] 07:43:00 Test Item Value Reference Range Interpretation Comments POC-GLUCOSE METER 151 mg/dL 70-110 H TESTED AT [facility] 6720 (BEAKER) (test code = SYDNEE Rendon [place] 1538) [address] BASIC METABOLIC [id number] 06:24:00 Test Item Value Reference Range Interpretation Comments SODIUM (BEAKER) 138 meq/L 136-145 (test code = 381) POTASSIUM (BEAKER) 3.8 meq/L 3.5-5.1 (test code = 379) CHLORIDE (BEAKER) 106 meq/L 98-107 (test code = 382) CO2 (BEAKER) (test 21 meq/L 22-29 L code = 355) BLOOD UREA NITROGEN 17 mg/dL 7-21 (BEAKER) (test code = 354) CREATININE (BEAKER) 1.82 mg/dL 0.57-1.25 H (test code = 358) GLUCOSE RANDOM 137 mg/dL 70-105 H (BEAKER) (test code = 652) CALCIUM (BEAKER) 8.6 mg/dL 8.4-10.2 (test code = 697) EGFR (BEAKER) (test 29 mL/min/1.73 ESTIMA PIERRE GFR IS code = 1092) sq m NOT ACCURATE CREATININE CLEARANCE IN PREDICTING GLOMERULAR FILTRATION RATE . ESTIMATED GFR I S NOT APPLICABLE FOR DIALYSIS PATIEN TS. [id number] 06:23:00 Test Item Value Reference Range Interpretation Comments PHOSPHORUS (BEAKER) (test code = 3.5 mg/dL 2.3-4.7 604) [id number] 06:23:00 Test Item Value Reference Range Interpretation Comments MAGNESIUM (BEAKER) (test code = 1.7 mg/dL 1.6-2.6 627) POCT-GLUCOSE [id number] 21:50:00 Test Item Value Reference Range Interpretation Comments POC-GLUCOSE METER 205 mg/dL 70-110 H TESTED AT [place] [address] (BEAKER) (test code = SYDNEE [place]end[place] 1538) [id number] POCT-GLUCOSE [id number] 17:18:00 Test Item Value Reference Range Interpretation Comments POC-GLUCOSE METER 161 mg/dL 70-110 H TESTED AT [place] [address] (BEAKER) (test code = SYDNEE [place]end[place] 1538) [address] URINALYSIS W/ [id number] 13:16:00 Test Item Value Reference Range Interpretation Comments COLOR (BEAKER) (test code = Yellow 470) CLARITY (BEAKER) (test code = Hazy 469) SPECIFIC GRAVITY UA (BEAKER) 1.007 1.001-1.035 (test code = 468) PH UA (BEAKER) (test code = 6.5 5.0-8.0 467) PROTEIN UA (BEAKER) (test code 30 mg/dL Negative A = 464) GLUCOSE UA (BEAKER) (test code Negative Negative = 365) KETONES UA (BEAKER) (test code Negative Negative = 371) BILIRUBIN UA (BEAKER) (test Negative Negative code = 462) BLOOD UA (BEAKER) (test code = Large Negative A 461) NITRITE UA (BEAKER) (test code Negative Negative = 465) LEUKOCYTE ESTERASE UA (BEAKER) Large Negative A (test code = 466) UROBILINOGEN UA (BEAKER) (test 0.2 mg/dL 0.2-1.0 code = 463) RBC UA (BEAKER) (test code = 26 /HPF 519) WBC UA (BEAKER) (test code = > /HPF 520) SQUAMOUS EPITHELIAL (BEAKER) 17 /HPF (test code = 516) SOURCE(BEAKER) (test code = Urine, Voided 6269) POCT-GLUCOSE [id number] 08:34:00 Test Item Value Reference Range Interpretation Comments POC-GLUCOSE METER 154 mg/dL 70-110 H TESTED AT [facility] 6720 (BEAKER) (test code = SYDNEE Rendon [place] 1538) [address] BASIC METABOLIC [id number] 07:34:00 Test Item Value Reference Range Interpretation Comments SODIUM (BEAKER) 138 meq/L 136-145 (test code = 381) POTASSIUM (BEAKER) 4.0 meq/L 3.5-5.1 (test code = 379) CHLORIDE (BEAKER) 105 meq/L 98-107 (test code = 382) CO2 (BEAKER) (test 24 meq/L 22-29 code = 355) BLOOD UREA NITROGEN 18 mg/dL 7-21 (BEAKER) (test code = 354) CREATININE (BEAKER) 2.27 mg/dL 0.57-1.25 H (test code = 358) GLUCOSE RANDOM 125 mg/dL 70-105 H (BEAKER) (test code = 652) CALCIUM (BEAKER) 9.1 mg/dL 8.4-10.2 (test code = 697) EGFR (BEAKER) (test 22 mL/min/1.73 ESTIMA PIERRE GFR IS code = 1092) sq m NOT ACCURATE CREATININE CLEARANCE IN PREDICTING GLOMERULAR FILTRATION RATE . ESTIMATED GFR I S NOT APPLICABLE FOR DIALYSIS PATIEN TS. [id number] 07:32:00 Test Item Value Reference Range Interpretation Comments PHOSPHORUS (BEAKER) (test code = 3.1 mg/dL 2.3-4.7 604) [id number] 07:32:00 Test Item Value Reference Range Interpretation Comments MAGNESIUM (BEAKER) (test code = 1.6 mg/dL 1.6-2.6 627) CBC W/PLT COUNT & AUTO [id number] 05:48:00 Test Item Value Reference Range Interpretation Comments WHITE BLOOD CELL COUNT (BEAKER) 13.5 K/ L 3.5-10.5 H (test code = 775) RED BLOOD CELL COUNT (BEAKER) 3.79 M/ L 3.93-5.22 L (test code = 761) HEMOGLOBIN (BEAKER) (test code = 10.6 GM/DL 11.2-15.7 L 410) HEMATOCRIT (BEAKER) (test code = 33.0 % 34.1-44.9 L 411) MEAN CORPUSCULAR VOLUME (BEAKER) 87.1 fL 79.4-94.8 (test code = 753) MEAN CORPUSCULAR HEMOGLOBIN 28.0 pg 25.6-32.2 (BEAKER) (test code = 751) MEAN CORPUSCULAR HEMOGLOBIN CONC 32.1 GM/DL 32.2-35.5 L (BEAKER) (test code = 752) RED CELL DISTRIBUTION WIDTH 14.7 % 11.7-14.4 H (BEAKER) (test code = 412) PLATELET COUNT (BEAKER) (test 268 K/CU MM 150-450 code = 756) MEAN PLATELET VOLUME (BEAKER) 9.0 fL 9.4-12.3 L (test code = 754) NUCLEATED RED BLOOD CELLS 0 /100 WBC 0-0 (BEAKER) (test code = 413) NEUTROPHILS RELATIVE PERCENT 77 % (BEAKER) (test code = 429) LYMPHOCYTES RELATIVE PERCENT 9 % (BEAKER) (test code = 430) MONOCYTES RELATIVE PERCENT 10 % (BEAKER) (test code = 431) EOSINOPHILS RELATIVE PERCENT 2 % (BEAKER) (test code = 432) BASOPHILS RELATIVE PERCENT 0 % (BEAKER) (test code = 437) NEUTROPHILS ABSOLUTE COUNT 10.36 K/ L 1.56-6.13 H (BEAKER) (test code = 670) LYMPHOCYTES ABSOLUTE COUNT 1.25 K/ L 1.18-3.74 (BEAKER) (test code = 414) MONOCYTES ABSOLUTE COUNT (BEAKER) 1.36 K/ L 0.24-0.36 H (test code = 415) EOSINOPHILS ABSOLUTE COUNT 0.25 K/ L 0.04-0.36 (BEAKER) (test code = 416) BASOPHILS ABSOLUTE COUNT (BEAKER) 0.05 K/ L 0.01-0.08 (test code = 417) IMMATURE GRANULOCYTES-RELATIVE 2 % 0-1 H PERCENT (BEAKER) (test code = 2801) POCT-GLUCOSE [id number] 22:24:00 Test Item Value Reference Range Interpretation Comments POC-GLUCOSE METER 119 mg/dL 70-110 H TESTED AT [place] [address] ([facility]) (test code = [facility] 1538) [address] POCT-GLUCOSE [id number] 17:09:00 Test Item Value Reference Range Interpretation Comments POC-GLUCOSE METER 110 mg/dL 70-110 TESTED AT [place] [address] ([facility]) (test code = [facility] 1538) [address] BLOOD [id number] 17:00:00 Test Item Value Reference Range Interpretation Comments CULTURE (BEAKER) (test No growth in 5 days code = 1095) BLOOD [id number] 17:00:00 Test Item Value Reference Range Interpretation Comments CULTURE (BEAKER) (test No growth in 5 days code = 1095) POCT-GLUCOSE [id number] 11:34:00 Test Item Value Reference Range Interpretation Comments POC-GLUCOSE METER 202 mg/dL 70-110 H TESTED AT [place] [address] ([facility]) (test code = [facility] 1538) [address] POCT-GLUCOSE [id number] 07:55:00 Test Item Value Reference Range Interpretation Comments POC-GLUCOSE METER 147 mg/dL 70-110 H TESTED AT [place] [address] ([facility]) (test code = [facility] 1538) [address] BASIC METABOLIC [id number] 05:37:00 Test Item Value Reference Range Interpretation Comments SODIUM (BEAKER) 136 meq/L 136-145 (test code = 381) POTASSIUM (BEAKER) 3.7 meq/L 3.5-5.1 (test code = 379) CHLORIDE (BEAKER) 105 meq/L 98-107 (test code = 382) CO2 (BEAKER) (test 21 meq/L 22-29 L code = 355) BLOOD UREA NITROGEN 18 mg/dL 7-21 (BEAKER) (test code = 354) CREATININE (BEAKER) 2.23 mg/dL 0.57-1.25 H (test code = 358) GLUCOSE RANDOM 133 mg/dL 70-105 H (BEAKER) (test code = 652) CALCIUM (BEAKER) 8.9 mg/dL 8.4-10.2 (test code = 697) EGFR (BEAKER) (test 23 mL/min/1.73 ESTIMA PIERRE GFR IS code = 1092) sq m NOT ACCURATE CREATININE CLEARANCE IN PREDICTING GLOMERULAR FILTRATION RATE . ESTIMATED GFR I S NOT APPLICABLE FOR DIALYSIS PATIEN TS. [id number] 05:35:00 Test Item Value Reference Range Interpretation Comments PHOSPHORUS (BEAKER) (test code = 2.8 mg/dL 2.3-4.7 604) [id number] 05:35:00 Test Item Value Reference Range Interpretation Comments MAGNESIUM (BEAKER) (test code = 1.6 mg/dL 1.6-2.6 627) CBC W/PLT COUNT & AUTO [id number] 05:12:00 Test Item Value Reference Range Interpretation Comments WHITE BLOOD CELL COUNT (BEAKER) 14.0 K/ L 3.5-10.5 H (test code = 775) RED BLOOD CELL COUNT (BEAKER) 3.79 M/ L 3.93-5.22 L (test code = 761) HEMOGLOBIN (BEAKER) (test code = 10.5 GM/DL 11.2-15.7 L 410) HEMATOCRIT (BEAKER) (test code = 32.4 % 34.1-44.9 L 411) MEAN CORPUSCULAR VOLUME (BEAKER) 85.5 fL 79.4-94.8 (test code = 753) MEAN CORPUSCULAR HEMOGLOBIN 27.7 pg 25.6-32.2 (BEAKER) (test code = 751) MEAN CORPUSCULAR HEMOGLOBIN CONC 32.4 GM/DL 32.2-35.5 (BEAKER) (test code = 752) RED CELL DISTRIBUTION WIDTH 14.7 % 11.7-14.4 H (BEAKER) (test code = 412) PLATELET COUNT (BEAKER) (test 240 K/CU MM 150-450 code = 756) MEAN PLATELET VOLUME (BEAKER) 9.0 fL 9.4-12.3 L (test code = 754) NUCLEATED RED BLOOD CELLS 0 /100 WBC 0-0 (BEAKER) (test code = 413) NEUTROPHILS RELATIVE PERCENT 70 % (BEAKER) (test code = 429) LYMPHOCYTES RELATIVE PERCENT 12 % (BEAKER) (test code = 430) MONOCYTES RELATIVE PERCENT 12 % (BEAKER) (test code = 431) EOSINOPHILS RELATIVE PERCENT 3 % (BEAKER) (test code = 432) BASOPHILS RELATIVE PERCENT 0 % (BEAKER) (test code = 437) NEUTROPHILS ABSOLUTE COUNT 9.78 K/ L 1.56-6.13 H (BEAKER) (test code = 670) LYMPHOCYTES ABSOLUTE COUNT 1.72 K/ L 1.18-3.74 (BEAKER) (test code = 414) MONOCYTES ABSOLUTE COUNT (BEAKER) 1.73 K/ L 0.24-0.36 H (test code = 415) EOSINOPHILS ABSOLUTE COUNT 0.41 K/ L 0.04-0.36 H (BEAKER) (test code = 416) BASOPHILS ABSOLUTE COUNT (BEAKER) 0.06 K/ L 0.01-0.08 (test code = 417) IMMATURE GRANULOCYTES-RELATIVE 2 % 0-1 H PERCENT (BEAKER) (test code = 2801) POCT-GLUCOSE [id number] 22:02:00 Test Item Value Reference Range Interpretation Comments POC-GLUCOSE METER 107 mg/dL 70-110 TESTED AT [facility] 6720 ([facility]) (test code = SYDNEE [place] 1538) [address] CT, [id number] 20:36:00FINAL REPORT CT of the abdomen and pelvis, without contrast. History: Abdominal pain, fever, concern for urine leak. Comparison: 06/17/2017. Technique: Multidetector CT scann ing of the abdomen and pelvis was performed [...] urinoma. Otherwise no significant change. Signed: Casey Bwoerseport Verified Date/Time: 06/22/2017 20:36:43 Reading Location: [facility] [id number] Consult Reading Room POCT-GLUCOSE [id number] 16:27:00 Test Item Value Reference Range Interpretation Comments POC-GLUCOSE METER 136 mg/dL 70-110 H TESTED AT [place] [address] ([facility]) (test code = [facility] 1538) [id number] POCT-GLUCOSE [id number] 12:07:00 Test Item Value Reference Range Interpretation Comments POC-GLUCOSE METER 150 mg/dL 70-110 H TESTED AT [place] [address] ([facility]) (test code = [facility] 1538) [address] POCT-GLUCOSE [id number] 07:45:00 Test Item Value Reference Range Interpretation Comments POC-GLUCOSE METER 201 mg/dL 70-110 H TESTED AT [place] [id number] ([facility]) (test code = [facility] 1538) [address] BASIC METABOLIC [id number] 05:21:00 Test Item Value Reference Range Interpretation Comments SODIUM (BEAKER) 134 meq/L 136-145 L (test code = 381) POTASSIUM (BEAKER) 4.0 meq/L 3.5-5.1 Specimen slightly (test code = 379) hemolyzed CHLORIDE (BEAKER) 103 meq/L 98-107 (test code = 382) CO2 (BEAKER) (test 23 meq/L 22-29 code = 355) BLOOD UREA NITROGEN 18 mg/dL 7-21 (BEAKER) (test code = 354) CREATININE (BEAKER) 2.31 mg/dL 0.57-1.25 H Specimen slightly (test code = 358) hemolyzed GLUCOSE RANDOM 140 mg/dL 70-105 H (BEAKER) (test code = 652) CALCIUM (BEAKER) 8.8 mg/dL 8.4-10.2 (test code = 697) EGFR (BEAKER) (test 22 mL/min/1.73 ESTIMA PIERRE GFR IS code = 1092) sq m NOT ACCURATE CREATININE CLEARANCE IN PREDICTING GLOMERULAR FILTRATION RATE . ESTIMATED GFR I S NOT APPLICABLE FOR DIALYSIS PATIEN TS. [id number] 05:09:00 Test Item Value Reference Range Interpretation Comments MAGNESIUM (BEAKER) 1.5 mg/dL 1.6-2.6 L Specimen slightly (test code = 627) hemolyzed [id number] 05:09:00 Test Item Value Reference Range Interpretation Comments PHOSPHORUS (BEAKER) 2.8 mg/dL 2.3-4.7 Specimen slightly (test code = 604) hemolyzed CBC W/PLT COUNT & AUTO [id number] 04:32:00 Test Item Value Reference Range Interpretation Comments WHITE BLOOD CELL COUNT (BEAKER) 16.5 K/ L 3.5-10.5 H (test code = 775) RED BLOOD CELL COUNT (BEAKER) 3.71 M/ L 3.93-5.22 L (test code = 761) HEMOGLOBIN (BEAKER) (test code = 10.4 GM/DL 11.2-15.7 L 410) HEMATOCRIT (BEAKER) (test code = 31.6 % 34.1-44.9 L 411) MEAN CORPUSCULAR VOLUME (BEAKER) 85.2 fL 79.4-94.8 (test code = 753) MEAN CORPUSCULAR HEMOGLOBIN 28.0 pg 25.6-32.2 (BEAKER) (test code = 751) MEAN CORPUSCULAR HEMOGLOBIN CONC 32.9 GM/DL 32.2-35.5 (BEAKER) (test code = 752) RED CELL DISTRIBUTION WIDTH 14.6 % 11.7-14.4 H (BEAKER) (test code = 412) PLATELET COUNT (BEAKER) (test 208 K/CU MM 150-450 code = 756) MEAN PLATELET VOLUME (BEAKER) 9.0 fL 9.4-12.3 L (test code = 754) NUCLEATED RED BLOOD CELLS 0 /100 WBC 0-0 (BEAKER) (test code = 413) NEUTROPHILS RELATIVE PERCENT 70 % (BEAKER) (test code = 429) LYMPHOCYTES RELATIVE PERCENT 10 % (BEAKER) (test code = 430) MONOCYTES RELATIVE PERCENT 16 % (BEAKER) (test code = 431) EOSINOPHILS RELATIVE PERCENT 2 % (BEAKER) (test code = 432) BASOPHILS RELATIVE PERCENT 0 % (BEAKER) (test code = 437) NEUTROPHILS ABSOLUTE COUNT 11.58 K/ L 1.56-6.13 H (BEAKER) (test code = 670) LYMPHOCYTES ABSOLUTE COUNT 1.72 K/ L 1.18-3.74 (BEAKER) (test code = 414) MONOCYTES ABSOLUTE COUNT (BEAKER) 2.67 K/ L 0.24-0.36 H (test code = 415) EOSINOPHILS ABSOLUTE COUNT 0.29 K/ L 0.04-0.36 (BEAKER) (test code = 416) BASOPHILS ABSOLUTE COUNT (BEAKER) 0.05 K/ L 0.01-0.08 (test code = 417) IMMATURE GRANULOCYTES-RELATIVE 1 % 0-1 PERCENT (BEAKER) (test code = 2801) POCT-GLUCOSE [id number] 21:34:00 Test Item Value Reference Range Interpretation Comments POC-GLUCOSE METER 104 mg/dL 70-110 TESTED AT [place] [address] ([facility]) (test code = SYDNEE ANDRE 1538) [address] POCT-GLUCOSE [id number] 17:16:00 Test Item Value Reference Range Interpretation Comments POC-GLUCOSE METER 262 mg/dL 70-110 H TESTED AT [facility] 6720 ([facility]) (test code = SY[place]EE [place] 1538) [id number] URINE [id number] 11:56:00 Test Item Value Reference Range Interpretation Comments CULTURE ([facility]) (test A 50-59 ,000 col/mL Beronica code = 1095) glabrata 10-19,000 col/ml skin floraPOCT-GLUCOSE [id number] 11:29:00 Test Item Value Reference Range Interpretation Comments POC-GLUCOSE METER 148 mg/dL 70-110 H TESTED AT [facility] 6720 (BEAKER) (test code = SY[place]EE [place] 1538) [address] POCT-GLUCOSE [id number] 08:58:00 Test Item Value Reference Range Interpretation Comments POC-GLUCOSE METER 141 mg/dL 70-110 H TESTED AT [facility] 6720 (BEAKER) (test code = SYDNEE [place] 1538) [address] BASIC METABOLIC [id number] 05:45:00 Test Item Value Reference Range Interpretation Comments SODIUM (BEAKER) 132 meq/L 136-145 L (test code = 381) POTASSIUM (BEAKER) 3.8 meq/L 3.5-5.1 (test code = 379) CHLORIDE (BEAKER) 102 meq/L 98-107 (test code = 382) CO2 (BEAKER) (test 20 meq/L 22-29 L code = 355) BLOOD UREA NITROGEN 18 mg/dL 7-21 (BEAKER) (test code = 354) CREATININE (BEAKER) 2.00 mg/dL 0.57-1.25 H (test code = 358) GLUCOSE RANDOM 130 mg/dL 70-105 H (BEAKER) (test code = 652) CALCIUM (BEAKER) 9.0 mg/dL 8.4-10.2 (test code = 697) EGFR (BEAKER) (test 26 mL/min/1.73 ESTIMA PIERRE GFR IS code = 1092) sq m NOT ACCURATE CREATININE CLEARANCE IN PREDICTING GLOMERULAR FILTRATION RATE . ESTIMATED GFR I S NOT APPLICABLE FOR DIALYSIS PATIEN TS. [id number] 05:30:00 Test Item Value Reference Range Interpretation Comments PHOSPHORUS (BEAKER) (test code = 2.8 mg/dL 2.3-4.7 604) [id number] 05:30:00 Test Item Value Reference Range Interpretation Comments MAGNESIUM (BEAKER) (test code = 1.6 mg/dL 1.6-2.6 627) CBC W/PLT COUNT & AUTO [id number] 05:07:00 Test Item Value Reference Range Interpretation Comments WHITE BLOOD CELL COUNT (BEAKER) 12.1 K/ L 3.5-10.5 H (test code = 775) RED BLOOD CELL COUNT (BEAKER) 3.84 M/ L 3.93-5.22 L (test code = 761) HEMOGLOBIN (BEAKER) (test code = 10.7 GM/DL 11.2-15.7 L 410) HEMATOCRIT (BEAKER) (test code = 34.9 % 34.1-44.9 411) MEAN CORPUSCULAR VOLUME (BEAKER) 90.9 fL 79.4-94.8 (test code = 753) MEAN CORPUSCULAR HEMOGLOBIN 27.9 pg 25.6-32.2 (BEAKER) (test code = 751) MEAN CORPUSCULAR HEMOGLOBIN CONC 30.7 GM/DL 32.2-35.5 L (BEAKER) (test code = 752) RED CELL DISTRIBUTION WIDTH 14.5 % 11.7-14.4 H (BEAKER) (test code = 412) PLATELET COUNT (BEAKER) (test 167 K/CU MM 150-450 code = 756) MEAN PLATELET VOLUME (BEAKER) 9.8 fL 9.4-12.3 (test code = 754) NUCLEATED RED BLOOD CELLS 0 /100 WBC 0-0 (BEAKER) (test code = 413) NEUTROPHILS RELATIVE PERCENT 74 % (BEAKER) (test code = 429) LYMPHOCYTES RELATIVE PERCENT 10 % (BEAKER) (test code = 430) MONOCYTES RELATIVE PERCENT 14 % (BEAKER) (test code = 431) EOSINOPHILS RELATIVE PERCENT 2 % (BEAKER) (test code = 432) BASOPHILS RELATIVE PERCENT 0 % (BEAKER) (test code = 437) NEUTROPHILS ABSOLUTE COUNT 8.95 K/ L 1.56-6.13 H (BEAKER) (test code = 670) LYMPHOCYTES ABSOLUTE COUNT 1.20 K/ L 1.18-3.74 (BEAKER) (test code = 414) MONOCYTES ABSOLUTE COUNT (BEAKER) 1.69 K/ L 0.24-0.36 H (test code = 415) EOSINOPHILS ABSOLUTE COUNT 0.18 K/ L 0.04-0.36 (BEAKER) (test code = 416) BASOPHILS ABSOLUTE COUNT (BEAKER) 0.03 K/ L 0.01-0.08 (test code = 417) IMMATURE GRANULOCYTES-RELATIVE 1 % 0-1 PERCENT (BEAKER) (test code = 2801) POCT-GLUCOSE [id number] 21:04:00 Test Item Value Reference Range Interpretation Comments POC-GLUCOSE METER 139 mg/dL 70-110 H TESTED AT [facility] 6720 (BEAKER) (test code = SYDNEE Rendon [facility] 1538) [address] POCT-GLUCOSE [id number] 17:13:00 Test Item Value Reference Range Interpretation Comments POC-GLUCOSE METER 127 mg/dL 70-110 H TESTED AT [place] [address] (BEAKER) (test code = SYDNEE Rendon [facility] 1538) [id number] POCT-GLUCOSE [id number] 11:25:00 Test Item Value Reference Range Interpretation Comments POC-GLUCOSE METER 124 mg/dL 70-110 H TESTED AT [place] [address] ([facility] (test code = SYDNEE Rendon [facility] 1538) [id number] POCT-GLUCOSE [id number] 07:28:00 Test Item Value Reference Range Interpretation Comments POC-GLUCOSE METER 137 mg/dL 70-110 H TESTED AT [place] [address] ([facility]) (test code = SYDNEE Rendon [facility] 1538) [id number] 06:43:00 Test Item Value Reference Range Interpretation Comments PHOSPHORUS (BEAKER) (test code = 2.9 mg/dL 2.3-4.7 604) [id number] 06:43:00 Test Item Value Reference Range Interpretation Comments MAGNESIUM (BEAKER) (test code = 1.6 mg/dL 1.6-2.6 627) BASIC METABOLIC [id number] 06:43:00 Test Item Value Reference Range Interpretation Comments SODIUM (BEAKER) 137 meq/L 136-145 (test code = 381) POTASSIUM (BEAKER) 3.8 meq/L 3.5-5.1 (test code = 379) CHLORIDE (BEAKER) 105 meq/L 98-107 (test code = 382) CO2 (BEAKER) (test 22 meq/L 22-29 code = 355) BLOOD UREA NITROGEN 16 mg/dL 7-21 (BEAKER) (test code = 354) CREATININE (BEAKER) 1.46 mg/dL 0.57-1.25 H (test code = 358) GLUCOSE RANDOM 125 mg/dL 70-105 H (BEAKER) (test code = 652) CALCIUM (BEAKER) 8.8 mg/dL 8.4-10.2 (test code = 697) EGFR (BEAKER) (test 37 mL/min/1.73 ESTIMA PIERRE GFR IS code = 1092) sq m NOT ACCURATE CREATININE CLEARANCE IN PREDICTING GLOMERULAR FILTRATION RATE . ESTIMATED GFR I S NOT APPLICABLE FOR DIALYSIS PATIEN TS. CBC W/PLT COUNT & AUTO [id number] 05:55:00 Test Item Value Reference Range Interpretation Comments WHITE BLOOD CELL COUNT (BEAKER) 10.7 K/ L 3.5-10.5 H (test code = 775) RED BLOOD CELL COUNT (BEAKER) 3.84 M/ L 3.93-5.22 L (test code = 761) HEMOGLOBIN (BEAKER) (test code = 10.7 GM/DL 11.2-15.7 L 410) HEMATOCRIT (BEAKER) (test code = 33.0 % 34.1-44.9 L 411) MEAN CORPUSCULAR VOLUME (BEAKER) 85.9 fL 79.4-94.8 (test code = 753) MEAN CORPUSCULAR HEMOGLOBIN 27.9 pg 25.6-32.2 (BEAKER) (test code = 751) MEAN CORPUSCULAR HEMOGLOBIN CONC 32.4 GM/DL 32.2-35.5 (BEAKER) (test code = 752) RED CELL DISTRIBUTION WIDTH 14.4 % 11.7-14.4 (BEAKER) (test code = 412) PLATELET COUNT (BEAKER) (test 172 K/CU MM 150-450 code = 756) MEAN PLATELET VOLUME (BEAKER) 9.2 fL 9.4-12.3 L (test code = 754) NUCLEATED RED BLOOD CELLS 0 /100 WBC 0-0 (BEAKER) (test code = 413) NEUTROPHILS RELATIVE PERCENT 69 % (BEAKER) (test code = 429) LYMPHOCYTES RELATIVE PERCENT 14 % (BEAKER) (test code = 430) MONOCYTES RELATIVE PERCENT 14 % (BEAKER) (test code = 431) EOSINOPHILS RELATIVE PERCENT 2 % (BEAKER) (test code = 432) BASOPHILS RELATIVE PERCENT 0 % (BEAKER) (test code = 437) NEUTROPHILS ABSOLUTE COUNT 7.32 K/ L 1.56-6.13 H (BEAKER) (test code = 670) LYMPHOCYTES ABSOLUTE COUNT 1.50 K/ L 1.18-3.74 (BEAKER) (test code = 414) MONOCYTES ABSOLUTE COUNT (BEAKER) 1.46 K/ L 0.24-0.36 H (test code = 415) EOSINOPHILS ABSOLUTE COUNT 0.26 K/ L 0.04-0.36 ([facility]) (test code = 416) BASOPHILS ABSOLUTE COUNT ([facility]) 0.03 K/ L 0.01-0.08 (test code = 417) IMMATURE GRANULOCYTES-RELATIVE 1 % 0-1 PERCENT ([facility]) (test code = 2801) POCT-GLUCOSE [id number] 21:37:00 Test Item Value Reference Range Interpretation Comments POC-GLUCOSE METER 143 mg/dL 70-110 H TESTED AT [place] [address] ([facility]) (test code = [facility] 1538) [address] POCT-GLUCOSE [id number] 18:04:00 Test Item Value Reference Range Interpretation Comments POC-GLUCOSE METER 143 mg/dL 70-110 H TESTED AT [place] [address] ([facility]) (test code = [facility] 1538) [address] VANCOMYCIN LEVEL, [id number] 15:00:00 Test Item Value Reference Range Interpretation Comments VANCOMYCIN TROUGH ([facility]) (test 9.0 ug/mL 10.0-20.0 L code = 522) Please hold next vanc dose until vanc trough results.TISSUE [id number] 14:20:00Surgical Pathology Report Case: [id number] Authorizing Provider: Jag Escalera MD Collected: 06/13/2017 8785 Ordering Location: [facility] PERIOPERATIVE Received: 06/14/2017 [facility]3 SERVICES Pathologist: Aquilino Diaz MD Specimen: SoftTissue, Other, right upj segment RENAL PELVIS, RIGHT U RETEROPELVIC JUNCTION, BIOPSY:- HAPHAZARD ARRANGEMENT OF SMOOTH MUSCLE BUNDLES WITH JENNIFER-MUSCULAR FIBROSIS, CONSISTENT WITH URETEROPELVIC JUNCTION OBSTRUCTION- NEGATIVE FOR DYSPLASIA OR MALIGNANCYSigning Pathologist Direct Phone Line: [phone] signed by Aquilino Diaz MD on 06/19/2017 at 2:20 [id number] obstructionRight UPJ segmentReceived fresh labeled "right UPJ segment" are two irregular pink-camacho to mary-white rubbery fragments of soft tissue measuring 1.5 x1.0 x 0.2 cm in aggregate. Sectioning reveals no discrete masses. The specimen is entirely submittedin cassette A1. DB/plPerformed.POCT- GLUCOSE [id number] 13:48:00 Test Item Value Reference Range Interpretation Comments POC-GLUCOSE METER 156 mg/dL 70-110 H TESTED AT [facility] 6720 ([facility] (test code = [facility] Rend[facility] 1538) [address] RAD, CHEST, 2 [id number] 10:31:00Reason for exam:->feverFINAL REPORT Chest x-ray, PA [...] Signed: Yulisa Monson Verified Date/Time: 06/19/2017 10:31:11 Re ading Location: [facility] Radiology Reading Room POCT-GLUCOSE [id number] 07:32:00 Test Item Value Reference Range Interpretation Comments POC-GLUCOSE METER 163 mg/dL 70-110 H TESTED AT [facility] 6720 ([facility] (test code = [place] [place] [facility] 1538) [address] [id number] 06:28:00 Test Item Value Reference Range Interpretation Comments PHOSPHORUS (BEAKER) (test code = 4.0 mg/dL 2.3-4.7 604) [id number] 06:28:00 Test Item Value Reference Range Interpretation Comments MAGNESIUM (BEAKER) (test code = 1.9 mg/dL 1.6-2.6 627) BASIC METABOLIC [id number] 06:28:00 Test Item Value Reference Range Interpretation Comments SODIUM (BEAKER) 134 meq/L 136-145 L (test code = 381) POTASSIUM (BEAKER) 4.2 meq/L 3.5-5.1 (test code = 379) CHLORIDE (BEAKER) 102 meq/L 98-107 (test code = 382) CO2 (BEAKER) (test 24 meq/L 22-29 code = 355) BLOOD UREA NITROGEN 17 mg/dL 7-21 (BEAKER) (test code = 354) CREATININE (BEAKER) 1.70 mg/dL 0.57-1.25 H (test code = 358) GLUCOSE RANDOM 158 mg/dL 70-105 H (BEAKER) (test code = 652) CALCIUM (BEAKER) 8.9 mg/dL 8.4-10.2 (test code = 697) EGFR (BEAKER) (test 31 mL/min/1.73 ESTIMA PIERRE GFR IS code = 1092) sq m NOT ACCURATE CREATININE CLEARANCE IN PREDICTING GLOMERULAR FILTRATION RATE . ESTIMATED GFR I S NOT APPLICABLE FOR DIALYSIS PATIEN TS. CBC W/PLT COUNT & AUTO [id number] 06:27:00 Test Item Value Reference Range Interpretation Comments WHITE BLOOD CELL COUNT (BEAKER) 13.6 K/ L 3.5-10.5 H (test code = 775) RED BLOOD CELL COUNT (BEAKER) 4.09 M/ L 3.93-5.22 (test code = 761) HEMOGLOBIN (BEAKER) (test code = 11.3 GM/DL 11.2-15.7 410) HEMATOCRIT (BEAKER) (test code = 35.3 % 34.1-44.9 411) MEAN CORPUSCULAR VOLUME (BEAKER) 86.3 fL 79.4-94.8 (test code = 753) MEAN CORPUSCULAR HEMOGLOBIN 27.6 pg 25.6-32.2 (BEAKER) (test code = 751) MEAN CORPUSCULAR HEMOGLOBIN CONC 32.0 GM/DL 32.2-35.5 L (BEAKER) (test code = 752) RED CELL DISTRIBUTION WIDTH 14.5 % 11.7-14.4 H (BEAKER) (test code = 412) PLATELET COUNT (BEAKER) (test 218 K/CU MM 150-450 code = 756) MEAN PLATELET VOLUME (BEAKER) 9.1 fL 9.4-12.3 L (test code = 754) NUCLEATED RED BLOOD CELLS 0 /100 WBC 0-0 (BEAKER) (test code = 413) NEUTROPHILS RELATIVE PERCENT 82 % (BEAKER) (test code = 429) LYMPHOCYTES RELATIVE PERCENT 7 % (BEAKER) (test code = 430) MONOCYTES RELATIVE PERCENT 10 % (BEAKER) (test code = 431) EOSINOPHILS RELATIVE PERCENT 1 % (BEAKER) (test code = 432) BASOPHILS RELATIVE PERCENT 0 % (BEAKER) (test code = 437) NEUTROPHILS ABSOLUTE COUNT 11.10 K/ L 1.56-6.13 H (BEAKER) (test code = 670) LYMPHOCYTES ABSOLUTE COUNT 0.92 K/ L 1.18-3.74 L (BEAKER) (test code = 414) MONOCYTES ABSOLUTE COUNT (BEAKER) 1.30 K/ L 0.24-0.36 H (test code = 415) EOSINOPHILS ABSOLUTE COUNT 0.07 K/ L 0.04-0.36 (BEAKER) (test code = 416) BASOPHILS ABSOLUTE COUNT (BEAKER) 0.03 K/ L 0.01-0.08 (test code = 417) IMMATURE GRANULOCYTES-RELATIVE 1 % 0-1 PERCENT (BEAKER) (test code = 2801) POCT-GLUCOSE [id number] 21:24:00 Test Item Value Reference Range Interpretation Comments POC-GLUCOSE METER 172 mg/dL 70-110 H TESTED AT [place] [address] ([facility]) (test code = [facility] 1538) [address] POCT-GLUCOSE [id number] 17:00:00 Test Item Value Reference Range Interpretation Comments POC-GLUCOSE METER 164 mg/dL 70-110 H TESTED AT [place] [address] ([facility]) (test code = [facility] 1538) [address] POCT-GLUCOSE [id number] 13:16:00 Test Item Value Reference Range Interpretation Comments POC-GLUCOSE METER 168 mg/dL 70-110 H TESTED AT [place] [address] ([facility]) (test code = [facility] 1538) [address] POCT-GLUCOSE [id number] 07:26:00 Test Item Value Reference Range Interpretation Comments POC-GLUCOSE METER 164 mg/dL 70-110 H TESTED AT [place] [address] ([facility]) (test code = [facility] 1538) [address] BASIC METABOLIC [id number] 05:05:00 Test Item Value Reference Range Interpretation Comments SODIUM (BEAKER) 134 meq/L 136-145 L (test code = 381) POTASSIUM (BEAKER) 4.9 meq/L 3.5-5.1 (test code = 379) CHLORIDE (BEAKER) 102 meq/L 98-107 (test code = 382) CO2 (BEAKER) (test 22 meq/L 22-29 code = 355) BLOOD UREA NITROGEN 18 mg/dL 7-21 (BEAKER) (test code = 354) CREATININE (BEAKER) 1.42 mg/dL 0.57-1.25 H (test code = 358) GLUCOSE RANDOM 179 mg/dL 70-105 H (BEAKER) (test code = 652) CALCIUM (BEAKER) 9.3 mg/dL 8.4-10.2 (test code = 697) EGFR (BEAKER) (test 38 mL/min/1.73 ESTIMA PIERRE GFR IS code = 1092) sq m NOT ACCURATE CREATININE CLEARANCE IN PREDICTING GLOMERULAR FILTRATION RATE . ESTIMATED GFR I S NOT APPLICABLE FOR DIALYSIS PATIEN TS. [id number] 05:04:00 Test Item Value Reference Range Interpretation Comments PHOSPHORUS (BEAKER) (test code = 4.8 mg/dL 2.3-4.7 H 604) [id number] 05:04:00 Test Item Value Reference Range Interpretation Comments MAGNESIUM (BEAKER) (test code = 1.6 mg/dL 1.6-2.6 627) CBC W/PLT COUNT & AUTO [id number] 03:57:00 Test Item Value Reference Range Interpretation Comments WHITE BLOOD CELL COUNT (BEAKER) 15.5 K/ L 3.5-10.5 H (test code = 775) RED BLOOD CELL COUNT (BEAKER) 4.45 M/ L 3.93-5.22 (test code = 761) HEMOGLOBIN (BEAKER) (test code = 12.2 GM/DL 11.2-15.7 410) HEMATOCRIT (BEAKER) (test code = 38.2 % 34.1-44.9 411) MEAN CORPUSCULAR VOLUME (BEAKER) 85.8 fL 79.4-94.8 (test code = 753) MEAN CORPUSCULAR HEMOGLOBIN 27.4 pg 25.6-32.2 (BEAKER) (test code = 751) MEAN CORPUSCULAR HEMOGLOBIN CONC 31.9 GM/DL 32.2-35.5 L (BEAKER) (test code = 752) RED CELL DISTRIBUTION WIDTH 14.5 % 11.7-14.4 H (BEAKER) (test code = 412) PLATELET COUNT (BEAKER) (test 269 K/CU MM 150-450 code = 756) MEAN PLATELET VOLUME (BEAKER) 9.1 fL 9.4-12.3 L (test code = 754) NUCLEATED RED BLOOD CELLS 0 /100 WBC 0-0 (BEAKER) (test code = 413) NEUTROPHILS RELATIVE PERCENT 76 % (BEAKER) (test code = 429) LYMPHOCYTES RELATIVE PERCENT 13 % (BEAKER) (test code = 430) MONOCYTES RELATIVE PERCENT 9 % (BEAKER) (test code = 431) EOSINOPHILS RELATIVE PERCENT 1 % (BEAKER) (test code = 432) BASOPHILS RELATIVE PERCENT 0 % (BEAKER) (test code = 437) NEUTROPHILS ABSOLUTE COUNT 11.79 K/ L 1.56-6.13 H (BEAKER) (test code = 670) LYMPHOCYTES ABSOLUTE COUNT 2.02 K/ L 1.18-3.74 (BEAKER) (test code = 414) MONOCYTES ABSOLUTE COUNT (BEAKER) 1.35 K/ L 0.24-0.36 H (test code = 415) EOSINOPHILS ABSOLUTE COUNT 0.21 K/ L 0.04-0.36 (BEAKER) (test code = 416) BASOPHILS ABSOLUTE COUNT (BEAKER) 0.04 K/ L 0.01-0.08 (test code = 417) IMMATURE GRANULOCYTES-RELATIVE 1 % 0-1 PERCENT (BEAKER) (test code = 2801) CT, [id number] 20:27:00Reason for exam:->flank pain s/p pyeloplasty FINAL REPORT CT, ABDOMEN \\T\\ PELVIS, WITHOUT IV [...] signs of diverticulitis. Vascular and osseous structures re veal no acute abnormalities. IMPRESSION: Limited noncontrast evaluation revealing recent double-J ureteric stent placement on the right with moderate right hydronephrosis. Moderate volume subcutaneousemphysema with minimal extension into the peritoneal cavity, compatible with provided history of recent instrumentation. Stable left hydronephrosis. Signed: JR Ambrosio Robert MDReport Verified Date/Time: 06/17/2017 20:27:27 Reading Location: [address] Reading Room CBC (HEMOGRAM ONLY)2017-06-17 20:19:00 Test Item Value Reference Range Interpretation Comments WHITE BLOOD CELL COUNT 16.5 K/ L 4.0-10.0 H (BEAKER) (test code = 775) RED BLOOD CELL COUNT 4.75 M/ L 4.00-5.00 (BEAKER) (test code = 761) HEMOGLOBIN (BEAKER) 13.6 GM/DL 12.0-15.0 (test code = 410) HEMATOCRIT (BEAKER) 40.9 % 36.0-45.0 (test code = 411) MEAN CORPUSCULAR VOLUME 86.1 fL 82.0-99.0 (BEAKER) (test code = 753) MEAN CORPUSCULAR 28.6 pg 27.0-33.0 HEMOGLOBIN (BEAKER) (test code = 751) MEAN CORPUSCULAR 33.3 GM/DL 32.0-36.0 HEMOGLOBIN CONC (BEAKER) (test code = 752) RED CELL DISTRIBUTION % 10.3-14.2 TEST N OT PERFORMED WIDTH (BEAKER) (test code = 412) PLATELET COUNT (BEAKER) 321 K/CU MM 150-430 (test code = 756) BASIC METABOLIC [id number] 20:18:00 Test Item Value Reference Range Interpretation Comments SODIUM (BEAKER) 136 meq/L 135-148 (test code = 381) POTASSIUM (BEAKER) 3.9 meq/L 3.6-5.5 (test code = 379) CHLORIDE (BEAKER) 98 meq/L 98-106 (test code = 382) CO2 (BEAKER) (test 26 meq/L 24-32 code = 355) BLOOD UREA NITROGEN 15 mg/dL 10-26 (BEAKER) (test code = 354) CREATININE (BEAKER) 1.30 mg/dL 0.50-1.20 H (test code = 358) GLUCOSE RANDOM 155 mg/dL 70-110 H (BEAKER) (test code = 652) CALCIUM (BEAKER) 9.9 mg/dL 8.5-10.5 (test code = 697) EGFR (BEAKER) (test 42 mL/min/1.73 ESTIMA PIERRE GFR IS code = 1092) sq m NOT ACCURATE CREATININE CLEARANCE IN PREDICTING GLOMERULAR FILTRATION RATE . ESTIMATED GFR I S NOT APPLICABLE FOR DIALYSIS PATIEN TS. POCT-GLUCOSE [id number] 12:06:00 Test Item Value Reference Range Interpretation Comments POC-GLUCOSE METER 160 mg/dL 70-110 H TESTED AT [place] [address] ([facility]) (test code = [facility] Rendon [facility] 1538) [address] POCT-GLUCOSE [id number] 07:33:00 Test Item Value Reference Range Interpretation Comments POC-GLUCOSE METER 246 mg/dL 70-110 H TESTED AT [place] [address] ([facility]) (test code = [place] 1538) [address] POCT-GLUCOSE [id number] 22:02:00 Test Item Value Reference Range Interpretation Comments POC-GLUCOSE METER 206 mg/dL 70-110 H TESTED AT [place] [address] ([facility]) (test code = [place] R[place] 1538) [address] POCT-GLUCOSE [id number] 17:55:00 Test Item Value Reference Range Interpretation Comments POC-GLUCOSE METER 265 mg/dL 70-110 H TESTED AT [place] [address] (BEAKER) (test code = [place] 1538) [address] POCT-GLUCOSE [id number] 08:39:00 Test Item Value Reference Range Interpretation Comments POC-GLUCOSE METER 189 mg/dL 70-110 H TESTED AT [facility] 6720 (BEAKER) (test code = [facility]EE Rendon [facility] 1538) [address] POCT-GLUCOSE [id number] 07:44:00 Test Item Value Reference Range Interpretation Comments POC-GLUCOSE METER 173 mg/dL 70-110 H TESTED AT [facility] 6720 (BEAKER) (test code = [facility] 1538) [address] BASIC METABOLIC [id number] 06:49:00 Test Item Value Reference Range Interpretation Comments SODIUM (BEAKER) 138 meq/L 136-145 (test code = 381) POTASSIUM (BEAKER) 4.1 meq/L 3.5-5.1 (test code = 379) CHLORIDE (BEAKER) 106 meq/L 98-107 (test code = 382) CO2 (BEAKER) (test 24 meq/L 22-29 code = 355) BLOOD UREA NITROGEN 15 mg/dL 7-21 (BEAKER) (test code = 354) CREATININE (BEAKER) 0.75 mg/dL 0.57-1.25 (test code = 358) GLUCOSE RANDOM 166 mg/dL 70-105 H (BEAKER) (test code = 652) CALCIUM (BEAKER) 8.8 mg/dL 8.4-10.2 (test code = 697) EGFR (BEAKER) (test 80 mL/min/1.73 ESTIMA PIERRE GFR IS code = 1092) sq m NOT ACCURATE CREATININE CLEARANCE IN PREDICTING GLOMERULAR FILTRATION RATE . ESTIMATED GFR I S NOT APPLICABLE FOR DIALYSIS PATIEN TS. HEMOGLOBIN AND [id number] 06:28:00 Test Item Value Reference Range Interpretation Comments HEMOGLOBIN (BEAKER) (test code = 12.3 GM/DL 11.2-15.7 410) HEMATOCRIT (BEAKER) (test code = 38.8 % 34.1-44.9 411) BASIC METABOLIC [id number] 11:05:00 Test Item Value Reference Range Interpretation Comments SODIUM (BEAKER) 139 meq/L 136-145 (test code = 381) POTASSIUM (BEAKER) 4.2 meq/L 3.5-5.1 Specimen slightly (test code = 379) hemolyzed CHLORIDE (BEAKER) 107 meq/L 98-107 (test code = 382) CO2 (BEAKER) (test 24 meq/L 22-29 code = 355) BLOOD UREA NITROGEN 19 mg/dL 7-21 (BEAKER) (test code = 354) CREATININE (BEAKER) 0.81 mg/dL 0.57-1.25 Specimen slightly (test code = 358) hemolyzed GLUCOSE RANDOM 205 mg/dL 70-105 H (BEAKER) (test code = 652) CALCIUM (BEAKER) 9.3 mg/dL 8.4-10.2 (test code = 697) EGFR (BEAKER) (test 73 mL/min/1.73 ESTIMA PIERRE GFR IS code = 1092) sq m NOT ACCURATE CREATININE CLEARANCE IN PREDICTING GLOMERULAR FILTRATION RATE . ESTIMATED GFR I S NOT APPLICABLE FOR DIALYSIS PATIEN TS. HEMOGLOBIN AND [id number] 10:48:00 Test Item Value Reference Range Interpretation Comments HEMOGLOBIN (BEAKER) (test code = 13.4 GM/DL 11.2-15.7 410) HEMATOCRIT (BEAKER) (test code = 41.7 % 34.1-44.9 411) POCT-GLUCOSE [id number] 10:25:00 Test Item Value Reference Range Interpretation Comments POC-GLUCOSE METER 216 mg/dL 70-110 H TESTED AT [facility] 6720 ([facility]) (test code = [place] 1538) [address] TISSUE [id number] 12:11:00Surgical Pathology Report Case: [id number] Authorizing Provider: Susan Ivory MD Collected: 05/02/2017 1147 Ordering Location: [facility] Endoscopy Received: 05/02/2017 1533 Services Pathologist: Tung Connor MD Specimens: A) - Polyp, Colon - Right/Ascending B) -Polyp, Colon - Rectum A. COLON, RIGHT/ASCEN DING POLYP, BIOPSY: - FRAGMENT OF TUBULAR ADENOMA (x1) - SEPARATE FRAGMENTS OF UNREMARKABLE COLONIC MUCOSAB. RECTUM, POLYP, BIOPSY: - FRAGMENTS OF HYPERPLASTIC POLYP (x3) Signing PathologistDirect Phone Line: [phone] signed by Tung Connor MD on 05/03/2017 at 12:11 [id number], large intestine without perforation or abscess without [...] camacho tissue, submitted B1. CG/pl Performed.URINALYSIS W/ [id number] 14:08:00 Test Item Value Reference Range Interpretation Comments COLOR (BEAKER) (test code = 470) Yellow CLARITY (BEAKER) (test code = 469) Hazy SPECIFIC GRAVITY UA (BEAKER) (test 1.015 1.001-1.035 code = 468) PH UA (BEAKER) (test code = 467) 5.5 5.0-8.0 PROTEIN UA (BEAKER) (test code = 10 mg/dL Negative A 464) GLUCOSE UA (BEAKER) (test code = Negative Negative 365) KETONES UA (BEAKER) (test code = Negative Negative 371) BILIRUBIN UA (BEAKER) (test code = Negative Negative 462) BLOOD UA (BEAKER) (test code = 461) Moderate Negative A NITRITE UA (BEAKER) (test code = Negative Negative 465) LEUKOCYTE ESTERASE UA (BEAKER) Large Negative A (test code = 466) UROBILINOGEN UA (BEAKER) (test code 0.2 mg/dL 0.2-1.0 = 463) RBC UA (BEAKER) (test code = 519) 46 /HPF WBC UA (BEAKER) (test code = 520) 53 /HPF BACTERIA (BEAKER) (test code = 517) Rare MUCUS (BEAKER) (test code = 1574) Rare SQUAMOUS EPITHELIAL (BEAKER) (test 1 /HPF code = 516) HYALINE CASTS (BEAKER) (test code = 2 /LPF 514) SOURCE(BEAKER) (test code = 2795) BASIC METABOLIC [id number] 12:36:00 Test Item Value Reference Range Interpretation Comments SODIUM (BEAKER) 140 meq/L 136-145 (test code = 381) POTASSIUM (BEAKER) 4.0 meq/L 3.5-5.1 (test code = 379) CHLORIDE (BEAKER) 106 meq/L 98-107 (test code = 382) CO2 (BEAKER) (test 24 meq/L 22-29 code = 355) BLOOD UREA NITROGEN 16 mg/dL 7-21 (BEAKER) (test code = 354) CREATININE (BEAKER) 0.81 mg/dL 0.57-1.25 (test code = 358) GLUCOSE RANDOM 146 mg/dL 70-105 H (BEAKER) (test code = 652) CALCIUM (BEAKER) 9.8 mg/dL 8.4-10.2 (test code = 697) EGFR (BEAKER) (test 73 mL/min/1.73 ESTIMA PIERRE GFR IS code = 1092) sq m NOT ACCURATE CREATININE CLEARANCE IN PREDICTING GLOMERULAR FILTRATION RATE . ESTIMATED GFR I S NOT APPLICABLE FOR DIALYSIS PATIEN EUFEMIA. [id number] 11:58:00 Test Item Value Reference Range Interpretation Comments PARTIAL THROMBOPLASTIN TIME 35.7 seconds 22.5-36.0 (BEAKER) (test code = 760) PROTHROMBIN TIME/[id number] 11:57:00 Test Item Value Reference Range Interpretation Comments PROTIME (BEAKER) (test code = 13.6 seconds 11.7-14.7 759) INR (BEAKER) (test code = 370) 1.1 <=5.9 RECOMMENDED COUMADIN/WARFARIN INR THERAPY RANGESSTANDARD DOSE: 2.0 - 3.0 Includes: PROPHYLAXIS forvenous thrombosis, systemic embolization; TREATMENT for venous thrombosis and/or pulmonary embolus.HIGH RISK: Target INR is 2.5-3.5 for patients with mechanical heart valves.CBC W/PLT COUNT & AUTO DIFFERENTIAL 2017-05-02 11:50:00 Test Item Value Reference Range Interpretation Comments WHITE BLOOD CELL COUNT (BEAKER) 8.0 K/ L 3.5-10.5 (test code = 775) RED BLOOD CELL COUNT (BEAKER) 5.04 M/ L 3.93-5.22 (test code = 761) HEMOGLOBIN (BEAKER) (test code = 13.8 GM/DL 11.2-15.7 410) HEMATOCRIT (BEAKER) (test code = 43.3 % 34.1-44.9 411) MEAN CORPUSCULAR VOLUME (BEAKER) 85.9 fL 79.4-94.8 (test code = 753) MEAN CORPUSCULAR HEMOGLOBIN 27.4 pg 25.6-32.2 (BEAKER) (test code = 751) MEAN CORPUSCULAR HEMOGLOBIN CONC 31.9 GM/DL 32.2-35.5 L (BEAKER) (test code = 752) RED CELL DISTRIBUTION WIDTH 15.3 % 11.7-14.4 H (BEAKER) (test code = 412) PLATELET COUNT (BEAKER) (test 305 K/CU MM 150-450 code = 756) MEAN PLATELET VOLUME (BEAKER) 9.0 fL 9.4-12.3 L (test code = 754) NUCLEATED RED BLOOD CELLS 0 /100 WBC 0-0 (BEAKER) (test code = 413) NEUTROPHILS RELATIVE PERCENT 57 % (BEAKER) (test code = 429) LYMPHOCYTES RELATIVE PERCENT 33 % (BEAKER) (test code = 430) MONOCYTES RELATIVE PERCENT 7 % (BEAKER) (test code = 431) EOSINOPHILS RELATIVE PERCENT 2 % (BEAKER) (test code = 432) BASOPHILS RELATIVE PERCENT 1 % (BEAKER) (test code = 437) NEUTROPHILS ABSOLUTE COUNT 4.54 K/ L 1.56-6.13 (BEAKER) (test code = 670) LYMPHOCYTES ABSOLUTE COUNT 2.63 K/ L 1.18-3.74 (BEAKER) (test code = 414) MONOCYTES ABSOLUTE COUNT (BEAKER) 0.52 K/ L 0.24-0.36 H (test code = 415) EOSINOPHILS ABSOLUTE COUNT 0.18 K/ L 0.04-0.36 (BEAKER) (test code = 416) BASOPHILS ABSOLUTE COUNT (BEAKER) 0.07 K/ L 0.01-0.08 (test code = 417) IMMATURE GRANULOCYTES-RELATIVE 1 % 0-1 PERCENT (BEAKER) (test code = 2801) POCT-GLUCOSE [id number] 17:46:00 Test Item Value Reference Range Interpretation Comments POC-GLUCOSE METER 201 mg/dL 70-110 H TESTED AT [facility] 6720 (BEAKER) (test code = [place] 1538) [address] POCT-GLUCOSE [id number] 14:15:00 Test Item Value Reference Range Interpretation Comments POC-GLUCOSE METER 152 mg/dL 70-110 H TESTED AT [facility] 6720 (BEAKER) (test code = [facility] 1538) [address] POCT-GLUCOSE [id number] 08:21:00 Test Item Value Reference Range Interpretation Comments POC-GLUCOSE METER 149 mg/dL 70-110 H TESTED AT [place] [address] ([facility]) (test code = [facility] 1538) [id number] POCT-GLUCOSE [id number] 21:11:00 Test Item Value Reference Range Interpretation Comments POC-GLUCOSE METER 201 mg/dL 70-110 H TESTED AT [place] [address] ([facility]) (test code = [facility] 1538) [id number] POCT-GLUCOSE [id number] 18:48:00 Test Item Value Reference Range Interpretation Comments POC-GLUCOSE METER 188 mg/dL 70-110 H TESTED AT [place] [address] ([facility]) (test code = [facility] 1538) [id number] POCT-GLUCOSE [id number] 13:32:00 Test Item Value Reference Range Interpretation Comments POC-GLUCOSE METER 151 mg/dL 70-110 H TESTED AT [place] [address] ([facility]) (test code = [facility] 1538) [id number] POCT-GLUCOSE [id number] 08:31:00 Test Item Value Reference Range Interpretation Comments POC-GLUCOSE METER 149 mg/dL 70-110 H TESTED AT [place] [address] ([facility]) (test code = [facility] 1538) [id number] BASIC METABOLIC [id number] 07:11:00 Test Item Value Reference Range Interpretation Comments SODIUM (BEAKER) 138 meq/L 136-145 (test code = 381) POTASSIUM (BEAKER) 3.5 meq/L 3.5-5.1 (test code = 379) CHLORIDE (BEAKER) 103 meq/L 98-107 (test code = 382) CO2 (BEAKER) (test 24 meq/L 22-29 code = 355) BLOOD UREA NITROGEN 8 mg/dL 7-21 (BEAKER) (test code = 354) CREATININE (BEAKER) 0.90 mg/dL 0.57-1.25 (test code = 358) GLUCOSE RANDOM 153 mg/dL 70-105 H [facility] (test code = 652) CALCIUM (BEAKER) 9.7 mg/dL 8.4-10.2 (test code = 697) EGFR (BEAKER) (test 65 mL/min/1.73 ESTIMA PIERRE GFR IS code = 1092) sq m NOT ACCURATE CREATININE CLEARANCE IN PREDICTING GLOMERULAR FILTRATION RATE . ESTIMATED GFR I S NOT APPLICABLE FOR DIALYSIS PATIEN TS. CBC W/PLT COUNT & AUTO [id number] 06:53:00 Test Item Value Reference Range Interpretation Comments WHITE BLOOD CELL COUNT (BEAKER) 9.1 K/ L 3.5-10.5 (test code = 775) RED BLOOD CELL COUNT (BEAKER) 4.17 M/ L 3.93-5.22 (test code = 761) HEMOGLOBIN (BEAKER) (test code = 11.5 GM/DL 11.2-15.7 410) HEMATOCRIT (BEAKER) (test code = 36.1 % 34.1-44.9 411) MEAN CORPUSCULAR VOLUME (BEAKER) 86.6 fL 79.4-94.8 (test code = 753) MEAN CORPUSCULAR HEMOGLOBIN 27.6 pg 25.6-32.2 (BEAKER) (test code = 751) MEAN CORPUSCULAR HEMOGLOBIN CONC 31.9 GM/DL 32.2-35.5 L (BEAKER) (test code = 752) RED CELL DISTRIBUTION WIDTH 13.9 % 11.7-14.4 (BEAKER) (test code = 412) PLATELET COUNT (BEAKER) (test 389 K/CU MM 150-450 code = 756) MEAN PLATELET VOLUME (BEAKER) 8.8 fL 9.4-12.3 L (test code = 754) NUCLEATED RED BLOOD CELLS 0 /100 WBC 0-0 (BEAKER) (test code = 413) NEUTROPHILS RELATIVE PERCENT 60 % (BEAKER) (test code = 429) LYMPHOCYTES RELATIVE PERCENT 22 % (BEAKER) (test code = 430) MONOCYTES RELATIVE PERCENT 12 % (BEAKER) (test code = 431) EOSINOPHILS RELATIVE PERCENT 3 % (BEAKER) (test code = 432) BASOPHILS RELATIVE PERCENT 1 % (BEAKER) (test code = 437) NEUTROPHILS ABSOLUTE COUNT 5.46 K/ L 1.56-6.13 (BEAKER) (test code = 670) LYMPHOCYTES ABSOLUTE COUNT 2.04 K/ L 1.18-3.74 (BEAKER) (test code = 414) MONOCYTES ABSOLUTE COUNT (BEAKER) 1.09 K/ L 0.24-0.36 H (test code = 415) EOSINOPHILS ABSOLUTE COUNT 0.29 K/ L 0.04-0.36 (BEAKER) (test code = 416) BASOPHILS ABSOLUTE COUNT (BEAKER) 0.06 K/ L 0.01-0.08 (test code = 417) IMMATURE GRANULOCYTES-RELATIVE 2 % 0-1 H PERCENT (BEAKER) (test code = 2801) POCT-GLUCOSE [id number] 21:07:00 Test Item Value Reference Range Interpretation Comments POC-GLUCOSE METER 224 mg/dL 70-110 H [place]ED [place] [place] [address] ([facility]) (test code = [facility] 1538) [address] POCT-GLUCOSE [id number] 17:14:00 Test Item Value Reference Range Interpretation Comments POC-GLUCOSE METER 121 mg/dL 70-110 H TESTED AT [place] [address] ([facility]) (test code = [facility] 1538) [address] POCT-GLUCOSE [id number] 11:03:00 Test Item Value Reference Range Interpretation Comments POC-GLUCOSE METER 161 mg/dL 70-110 H TESTED AT [place] [address] ([facility]) (test code = [facility] 1538) [address] POCT-GLUCOSE [id number] 07:24:00 Test Item Value Reference Range Interpretation Comments POC-GLUCOSE METER 191 mg/dL 70-110 H TESTED AT [place] [address] ([facility]) (test code = [facility] 1538) [address] BASIC METABOLIC [id number] 04:45:00 Test Item Value Reference Range Interpretation Comments SODIUM (BEAKER) 137 meq/L 136-145 (test code = 381) POTASSIUM (BEAKER) 3.3 meq/L 3.5-5.1 L (test code = 379) CHLORIDE (BEAKER) 102 meq/L 98-107 (test code = 382) CO2 (BEAKER) (test 24 meq/L 22-29 code = 355) BLOOD UREA NITROGEN 8 mg/dL 7-21 (BEAKER) (test code = 354) CREATININE (BEAKER) 0.91 mg/dL 0.57-1.25 (test code = 358) GLUCOSE RANDOM 148 mg/dL 70-105 H (BEAKER) (test code = 652) CALCIUM (BEAKER) 9.5 mg/dL 8.4-10.2 (test code = 697) EGFR (BEAKER) (test 64 mL/min/1.73 ESTIMA PIERRE GFR IS code = 1092) sq m NOT ACCURATE CREATININE CLEARANCE IN PREDICTING GLOMERULAR FILTRATION RATE . ESTIMATED GFR I S NOT APPLICABLE FOR DIALYSIS PATIEN TS. POCT-GLUCOSE [id number] 21:03:00 Test Item Value Reference Range Interpretation Comments POC-GLUCOSE METER 164 mg/dL 70-110 H TESTED AT [place] [address] (BEAKER) (test code = [facility] 1538) [address] BLOOD [id number] 18:00:00 Test Item Value Reference Range Interpretation Comments CULTURE (BEAKER) (test No growth in 5 days code = 1095) BLOOD [id number] 18:00:00 Test Item Value Reference Range Interpretation Comments CULTURE (BEAKER) (test No growth in 5 days code = 1095) POCT-GLUCOSE [id number] 17:18:00 Test Item Value Reference Range Interpretation Comments POC-GLUCOSE METER 154 mg/dL 70-110 H TESTED AT [place] [address] (BEAKER) (test code = [facility] 1538) [address] POCT-GLUCOSE [id number] 11:29:00 Test Item Value Reference Range Interpretation Comments POC-GLUCOSE METER 117 mg/dL 70-110 H TESTED AT [place] [address] (BEAKER) (test code = [facility] 1538) [address]695 URINE [id number] 09:54:00 Test Item Value Reference Range Interpretation Comments CULTURE (BEAKER) (test code = 1095) No growth POCT-GLUCOSE [id number] 07:34:00 Test Item Value Reference Range Interpretation Comments POC-GLUCOSE METER 120 mg/dL 70-110 H TESTED AT [place] [address] ([facility]) (test code = [facility] 1538) [address] BASIC METABOLIC [id number] 05:18:00 Test Item Value Reference Range Interpretation Comments SODIUM (BEAKER) 138 meq/L 136-145 (test code = 381) POTASSIUM (BEAKER) 3.9 meq/L 3.5-5.1 (test code = 379) CHLORIDE (BEAKER) 104 meq/L 98-107 (test code = 382) CO2 (BEAKER) (test 26 meq/L 22-29 code = 355) BLOOD UREA NITROGEN 4 mg/dL 7-21 L (BEAKER) (test code = 354) CREATININE (BEAKER) 0.85 mg/dL 0.57-1.25 (test code = 358) GLUCOSE RANDOM 110 mg/dL 70-105 H (BEAKER) (test code = 652) CALCIUM (BEAKER) 9.7 mg/dL 8.4-10.2 (test code = 697) EGFR (BEAKER) (test 69 mL/min/1.73 ESTIMA PIERRE GFR IS code = 1092) sq m NOT ACCURATE CREATININE CLEARANCE IN PREDICTING GLOMERULAR FILTRATION RATE . ESTIMATED GFR I S NOT APPLICABLE FOR DIALYSIS PATIEN TS. CBC W/PLT COUNT & AUTO [id number] 04:59:00 Test Item Value Reference Range Interpretation Comments WHITE BLOOD CELL COUNT (BEAKER) 9.6 K/ L 3.5-10.5 (test code = 775) RED BLOOD CELL COUNT (BEAKER) 3.96 M/ L 3.93-5.22 (test code = 761) HEMOGLOBIN (BEAKER) (test code = 11.1 GM/DL 11.2-15.7 L 410) HEMATOCRIT (BEAKER) (test code = 34.4 % 34.1-44.9 411) MEAN CORPUSCULAR VOLUME (BEAKER) 86.9 fL 79.4-94.8 (test code = 753) MEAN CORPUSCULAR HEMOGLOBIN 28.0 pg 25.6-32.2 (BEAKER) (test code = 751) MEAN CORPUSCULAR HEMOGLOBIN CONC 32.3 GM/DL 32.2-35.5 (BEAKER) (test code = 752) RED CELL DISTRIBUTION WIDTH 13.5 % 11.7-14.4 (BEAKER) (test code = 412) PLATELET COUNT (BEAKER) (test 338 K/CU MM 150-450 code = 756) MEAN PLATELET VOLUME (BEAKER) 8.6 fL 9.4-12.3 L (test code = 754) NUCLEATED RED BLOOD CELLS 0 /100 WBC 0-0 (BEAKER) (test code = 413) NEUTROPHILS RELATIVE PERCENT 62 % (BEAKER) (test code = 429) LYMPHOCYTES RELATIVE PERCENT 22 % (BEAKER) (test code = 430) MONOCYTES RELATIVE PERCENT 12 % (BEAKER) (test code = 431) EOSINOPHILS RELATIVE PERCENT 4 % (BEAKER) (test code = 432) BASOPHILS RELATIVE PERCENT 1 % (BEAKER) (test code = 437) NEUTROPHILS ABSOLUTE COUNT 5.93 K/ L 1.56-6.13 (BEAKER) (test code = 670) LYMPHOCYTES ABSOLUTE COUNT 2.07 K/ L 1.18-3.74 (BEAKER) (test code = 414) MONOCYTES ABSOLUTE COUNT (BEAKER) 1.13 K/ L 0.24-0.36 H (test code = 415) EOSINOPHILS ABSOLUTE COUNT 0.35 K/ L 0.04-0.36 (BEAKER) (test code = 416) BASOPHILS ABSOLUTE COUNT (BEAKER) 0.05 K/ L 0.01-0.08 (test code = 417) IMMATURE GRANULOCYTES-RELATIVE 1 % 0-1 PERCENT (BEAKER) (test code = 2801) POCT-GLUCOSE [id number] 21:33:00 Test Item Value Reference Range Interpretation Comments POC-GLUCOSE METER 114 mg/dL 70-110 H TESTED AT [place] [address] ([facility]) (test code = [facility] 1538) [id number] POCT-GLUCOSE [id number] 17:43:00 Test Item Value Reference Range Interpretation Comments POC-GLUCOSE METER 177 mg/dL 70-110 H TESTED AT [place] [address] ([facility]) (test code = [facility] 1538) [address]66 POCT-GLUCOSE [id number] 11:19:00 Test Item Value Reference Range Interpretation Comments POC-GLUCOSE METER 183 mg/dL 70-110 H TESTED AT [place] [address] ([facility]) (test code = [facility] 1538) [address] POCT-GLUCOSE [id number] 07:56:00 Test Item Value Reference Range Interpretation Comments POC-GLUCOSE METER 131 mg/dL 70-110 H TESTED AT [place] [address] ([facility]) (test code = [facility] 1538) [address] BASIC METABOLIC [id number] 07:52:00 Test Item Value Reference Range Interpretation Comments SODIUM (BEAKER) 136 meq/L 136-145 (test code = 381) POTASSIUM (BEAKER) 3.9 meq/L 3.5-5.1 (test code = 379) CHLORIDE (BEAKER) 103 meq/L 98-107 (test code = 382) CO2 (BEAKER) (test 24 meq/L 22-29 code = 355) BLOOD UREA NITROGEN 7 mg/dL 7-21 (BEAKER) (test code = 354) CREATININE (BEAKER) 0.87 mg/dL 0.57-1.25 (test code = 358) GLUCOSE RANDOM 106 mg/dL 70-105 H (BEAKER) (test code = 652) CALCIUM (BEAKER) 9.1 mg/dL 8.4-10.2 (test code = 697) EGFR (BEAKER) (test 67 mL/min/1.73 ESTIMA PIERRE GFR IS code = 1092) sq m NOT ACCURATE CREATININE CLEARANCE IN PREDICTING GLOMERULAR FILTRATION RATE . ESTIMATED GFR I S NOT APPLICABLE FOR DIALYSIS PATIEN TS. CBC W/PLT COUNT & AUTO [id number] 06:52:00 Test Item Value Reference Range Interpretation Comments WHITE BLOOD CELL COUNT (BEAKER) 11.7 K/ L 4.0-10.0 H (test code = 775) RED BLOOD CELL COUNT (BEAKER) 4.05 M/ L 4.00-5.00 (test code = 761) HEMOGLOBIN (BEAKER) (test code = 11.6 GM/DL 12.0-15.0 L 410) HEMATOCRIT (BEAKER) (test code = 36.4 % 36.0-45.0 411) MEAN CORPUSCULAR VOLUME (BEAKER) 90.0 fL 82.0-99.0 (test code = 753) MEAN CORPUSCULAR HEMOGLOBIN 28.7 pg 27.0-33.0 (BEAKER) (test code = 751) MEAN CORPUSCULAR HEMOGLOBIN CONC 31.9 GM/DL 32.0-36.0 L (BEAKER) (test code = 752) RED CELL DISTRIBUTION WIDTH 12.8 % 10.3-14.2 (BEAKER) (test code = 412) PLATELET COUNT (BEAKER) (test 352 K/CU MM 150-430 code = 756) MEAN PLATELET VOLUME (BEAKER) 6.1 fL 6.5-10.5 L (test code = 754) NUCLEATED RED BLOOD CELLS 0 /100 WBC 0-0 (BEAKER) (test code = 413) NEUTROPHILS RELATIVE PERCENT 66 % (BEAKER) (test code = 429) LYMPHOCYTES RELATIVE PERCENT 19 % (BEAKER) (test code = 430) MONOCYTES RELATIVE PERCENT 12 % (BEAKER) (test code = 431) EOSINOPHILS RELATIVE PERCENT 3 % (BEAKER) (test code = 432) BASOPHILS RELATIVE PERCENT 0 % (BEAKER) (test code = 437) NEUTROPHILS ABSOLUTE COUNT 7.73 K/ L 1.80-8.00 (BEAKER) (test code = 670) LYMPHOCYTES ABSOLUTE COUNT 2.22 K/ L 1.48-4.50 (BEAKER) (test code = 414) MONOCYTES ABSOLUTE COUNT (BEAKER) 1.35 K/ L 0.00-1.30 H (test code = 415) EOSINOPHILS ABSOLUTE COUNT 0.33 K/ L 0.00-0.50 (BEAKER) (test code = 416) BASOPHILS ABSOLUTE COUNT (BEAKER) 0.05 K/ L 0.00-0.20 (test code = 417) 0.00POCT-GLUCOSE [id number] 21:16:00 Test Item Value Reference Range Interpretation Comments POC-GLUCOSE METER 141 mg/dL 70-110 H TESTED AT [place] [address] ([facility]) (test code = [facility] 1538) [id number] POCT-GLUCOSE [id number] 17:41:00 Test Item Value Reference Range Interpretation Comments POC-GLUCOSE METER 154 mg/dL 70-110 H TESTED AT [place] [address] ([facility]) (test code = [facility] 1538) 27823 URINALYSIS W/ [id number] 15:10:00 Test Item Value Reference Range Interpretation Comments COLOR (BEAKER) (test code Yellow = 470) CLARITY (BEAKER) (test Clear code = 469) SPECIFIC GRAVITY UA 1.021 1.001-1.035 (BEAKER) (test code = 468) PH UA (BEAKER) (test code 6.0 5.0-8.0 = 467) PROTEIN UA (BEAKER) (test 20 mg/dL Negative A code = 464) GLUCOSE UA (BEAKER) (test Negative Negative code = 365) KETONES UA (BEAKER) (test Trace Negative A code = 371) BILIRUBIN UA (BEAKER) Negative Negative (test code = 462) BLOOD UA (BEAKER) (test Small Negative A code = 461) NITRITE UA (BEAKER) (test Negative Negative code = 465) LEUKOCYTE ESTERASE UA Large Negative A (BEAKER) (test code = 466) UROBILINOGEN UA (BEAKER) 0.2 mg/dL 0.2-1.0 (test code = 463) RBC UA (BEAKER) (test code 1 /HPF = 519) WBC UA (BEAKER) (test code 36 /HPF = 520) BACTERIA (BEAKER) (test Occasional code = 517) MUCUS (BEAKER) (test code Rare = 1574) SQUAMOUS EPITHELIAL 2 /HPF (BEAKER) (test code = 516) SOURCE(BEAKER) (test code Urine, Clean Catch = 2795) POCT-GLUCOSE [id number] 12:04:00 Test Item Value Reference Range Interpretation Comments POC-GLUCOSE METER 171 mg/dL 70-110 H TESTED AT [facility] 67 (BEAKER) (test code = [facility] 1538) [address] URINE [id number] 10:02:00 Test Item Value Reference Range Interpretation Comments CULTURE (BEAKER) (test code = 1095) No growth POCT-GLUCOSE [id number] 08:15:00 Test Item Value Reference Range Interpretation Comments POC-GLUCOSE METER 118 mg/dL 70-110 H TESTED AT [place] [address] ([facility]) (test code = [facility] 1538) [address] BASIC METABOLIC [id number] 05:04:00 Test Item Value Reference Range Interpretation Comments SODIUM (BEAKER) 137 meq/L 136-145 (test code = 381) POTASSIUM (BEAKER) 3.3 meq/L 3.5-5.1 L (test code = 379) CHLORIDE (BEAKER) 107 meq/L 98-107 (test code = 382) CO2 (BEAKER) (test 22 meq/L 22-29 code = 355) BLOOD UREA NITROGEN 7 mg/dL 7-21 (BEAKER) (test code = 354) CREATININE (BEAKER) 0.80 mg/dL 0.57-1.25 (test code = 358) GLUCOSE RANDOM 122 mg/dL 70-105 H (BEAKER) (test code = 652) CALCIUM (BEAKER) 8.0 mg/dL 8.4-10.2 L (test code = 697) EGFR (BEAKER) (test 74 mL/min/1.73 ESTIMA PIERRE GFR IS code = 1092) sq m NOT ACCURATE CREATININE CLEARANCE IN PREDICTING GLOMERULAR FILTRATION RATE . ESTIMATED GFR I S NOT APPLICABLE FOR DIALYSIS PATIEN TS. CBC W/PLT COUNT & AUTO [id number] 04:57:00 Test Item Value Reference Range Interpretation Comments WHITE BLOOD CELL COUNT (BEAKER) 12.3 K/ L 4.0-10.0 H (test code = 775) RED BLOOD CELL COUNT (BEAKER) 3.77 M/ L 4.00-5.00 L (test code = 761) HEMOGLOBIN (BEAKER) (test code = 11.1 GM/DL 12.0-15.0 L 410) HEMATOCRIT (BEAKER) (test code = 33.7 % 36.0-45.0 L 411) MEAN CORPUSCULAR VOLUME (BEAKER) 89.5 fL 82.0-99.0 (test code = 753) MEAN CORPUSCULAR HEMOGLOBIN 29.4 pg 27.0-33.0 (BEAKER) (test code = 751) MEAN CORPUSCULAR HEMOGLOBIN CONC 32.9 GM/DL 32.0-36.0 (BEAKER) (test code = 752) RED CELL DISTRIBUTION WIDTH 12.7 % 10.3-14.2 (BEAKER) (test code = 412) PLATELET COUNT (BEAKER) (test 325 K/CU MM 150-430 code = 756) MEAN PLATELET VOLUME (BEAKER) 5.9 fL 6.5-10.5 L (test code = 754) NUCLEATED RED BLOOD CELLS 0 /100 WBC 0-0 (BEAKER) (test code = 413) NEUTROPHILS RELATIVE PERCENT 71 % (BEAKER) (test code = 429) LYMPHOCYTES RELATIVE PERCENT 16 % (BEAKER) (test code = 430) MONOCYTES RELATIVE PERCENT 12 % (BEAKER) (test code = 431) EOSINOPHILS RELATIVE PERCENT 1 % (BEAKER) (test code = 432) BASOPHILS RELATIVE PERCENT 0 % (BEAKER) (test code = 437) NEUTROPHILS ABSOLUTE COUNT 8.72 K/ L 1.80-8.00 H (BEAKER) (test code = 670) LYMPHOCYTES ABSOLUTE COUNT 1.95 K/ L 1.48-4.50 (BEAKER) (test code = 414) MONOCYTES ABSOLUTE COUNT (BEAKER) 1.48 K/ L 0.00-1.30 H (test code = 415) EOSINOPHILS ABSOLUTE COUNT 0.15 K/ L 0.00-0.50 (BEAKER) (test code = 416) BASOPHILS ABSOLUTE COUNT (BEAKER) 0.04 K/ L 0.00-0.20 (test code = 417) 0.00POCT-GLUCOSE [id number] 21:51:00 Test Item Value Reference Range Interpretation Comments POC-GLUCOSE METER 159 mg/dL 70-110 H TESTED AT [place] [address] ([facility]) (test code = [facility] 1538) [address] RAPID DRUG SCREEN, [id number] 21:21:00 Test Item Value Reference Range Interpretation Comments BARBITURATE URINE (BEAKER) (test Negative Negative code = 725) BENZODIAZEPINE SCREEN URINE (BEAKER) Positive Negative A (test code = 726) COCAINE (METAB.) SCREEN (BEAKER) Negative Negative (test code = 1164) METHADONE SCREEN (BEAKER) (test code Negative Negative = 1436) OPIATE SCREEN URINE (BEAKER) (test Positive Negative A code = 734) CANNABINOID SCREEN URINE (BEAKER) Negative Negative (test code = 727) AMPH/METHAMPH SCREEN (BEAKER) (test Negative Negative code = 1438) PHENCYCLIDINE SCREEN URINE (BEAKER) Negative Negative (test code = 608) OXYCODONE SCREEN URINE (BEAKER) Negative Negative (test code = 2761) DRUG CUTOFF CONC.Cocaine 300 ng/mL Cannabinoid 50 ng/mL Benzodiazepine 200 ng/mLBarbiturate 200 ng/mLPhencyclidine 25 ng/mLOpiate 300 ng/mLMethadone 300 ng/mLAmphetamine/ 1000 ng/mL MethamphetamineOxycodone 300 ng/mLThis assay provides an unconfirmed qualitative test result for the clinical management of patients in emergency situations. Chain of custody not maintained. Some durl-uhr-npflihi medications, as well as adulterants, may cause inaccurate results. Clinical correlation should be applied. A more comprehensive drug screen or confirmation of a detected drug may be performed upon request.POCT-GLUCOSE [id number] 14:21:00 Test Item Value Reference Range Interpretation Comments POC-GLUCOSE METER 113 mg/dL 70-110 H TESTED AT [place] [address] ([facility]) (test code = [facility] 1538) [address] [id number] 10:15:00 Test Item Value Reference Range Interpretation Comments RPR SCREEN (BEAKER) (test code = Nonreactive Nonreactive 420) URINE [id number] 09:21:00 Test Item Value Reference Range Interpretation Comments CULTURE (BEAKER) (test >100,000 col/mL skin code = 1095) mckenna POCT-GLUCOSE [id number] 08:00:00 Test Item Value Reference Range Interpretation Comments POC-GLUCOSE METER 128 mg/dL 70-110 H TESTED AT [facility] 6720 (BEAKER) (test code = [place] 1538) [address] CBC (HEMOGRAM ONLY)[id number] 07:25:00 Test Item Value Reference Range Interpretation Comments WHITE BLOOD CELL COUNT (BEAKER) 13.9 K/ L 4.0-10.0 H (test code = 775) RED BLOOD CELL COUNT (BEAKER) 4.28 M/ L 4.00-5.00 (test code = 761) HEMOGLOBIN (BEAKER) (test code = 12.1 GM/DL 12.0-15.0 410) HEMATOCRIT (BEAKER) (test code = 37.9 % 36.0-45.0 411) MEAN CORPUSCULAR VOLUME (BEAKER) 88.6 fL 82.0-99.0 (test code = 753) MEAN CORPUSCULAR HEMOGLOBIN 28.2 pg 27.0-33.0 (BEAKER) (test code = 751) MEAN CORPUSCULAR HEMOGLOBIN CONC 31.8 GM/DL 32.0-36.0 L (BEAKER) (test code = 752) RED CELL DISTRIBUTION WIDTH 12.7 % 10.3-14.2 (BEAKER) (test code = 412) PLATELET COUNT (BEAKER) (test 343 K/CU MM 150-430 code = 756) MEAN PLATELET VOLUME (BEAKER) 6.0 fL 6.5-10.5 L (test code = 754) NUCLEATED RED BLOOD CELLS 0 /100 WBC 0-0 (BEAKER) (test code = 413) 0.00BASIC METABOLIC [id number] 07:02:00 Test Item Value Reference Range Interpretation Comments SODIUM (BEAKER) 138 meq/L 136-145 (test code = 381) POTASSIUM (BEAKER) 3.9 meq/L 3.5-5.1 (test code = 379) CHLORIDE (BEAKER) 104 meq/L 98-107 (test code = 382) CO2 (BEAKER) (test 25 meq/L 22-29 code = 355) BLOOD UREA NITROGEN 7 mg/dL 7-21 (BEAKER) (test code = 354) CREATININE (BEAKER) 0.98 mg/dL 0.57-1.25 (test code = 358) GLUCOSE RANDOM 138 mg/dL 70-105 H (BEAKER) (test code = 652) CALCIUM (BEAKER) 9.1 mg/dL 8.4-10.2 (test code = 697) EGFR (BEAKER) (test 59 mL/min/1.73 ESTIMA PIERRE GFR IS code = 1092) sq m NOT ACCURATE CREATININE CLEARANCE IN PREDICTING GLOMERULAR FILTRATION RATE . ESTIMATED GFR I S NOT APPLICABLE FOR DIALYSIS PATIEN TS. POCT-GLUCOSE [id number] 21:33:00 Test Item Value Reference Range Interpretation Comments POC-GLUCOSE METER 163 mg/dL 70-110 H TESTED AT [facility] 6720 (BEAKER) (test code = [place] 1538) [address] URINALYSIS W/ [id number] 18:19:00 Test Item Value Reference Range Interpretation Comments COLOR (BEAKER) (test code Light Yellow = 470) CLARITY (BEAKER) (test Clear code = 469) SPECIFIC GRAVITY UA 1.015 1.001-1.035 (BEAKER) (test code = 468) PH UA (BEAKER) (test code 6.5 5.0-8.0 = 467) PROTEIN UA (BEAKER) (test Negative Negative code = 464) GLUCOSE UA (BEAKER) (test Negative Negative code = 365) KETONES UA (BEAKER) (test Negative Negative code = 371) BILIRUBIN UA (BEAKER) Negative Negative (test code = 462) BLOOD UA (BEAKER) (test Negative Negative code = 461) NITRITE UA (BEAKER) (test Negative Negative code = 465) LEUKOCYTE ESTERASE UA Negative Negative (BEAKER) (test code = 466) UROBILINOGEN UA (BEAKER) 0.2 mg/dL 0.2-1.0 (test code = 463) RBC UA (BEAKER) (test 1 /HPF code = 519) WBC UA (BEAKER) (test 4 /HPF code = 520) SOURCE(BEAKER) (test code Urine, Straight = 2888) Catheter POCT-GLUCOSE [id number] 16:40:00 Test Item Value Reference Range Interpretation Comments POC-GLUCOSE METER 120 mg/dL 70-110 H TESTED AT [facility] 6720 (BEAKER) (test code = [place] 1538) [address] HEPATITIS PANEL, [id number] 10:25:00 Test Item Value Reference Range Interpretation Comments HEPATITIS A IGM ANTIBODY (BEAKER) Nonreactive Nonreactive (test code = 498) HEPATITIS B CORE IGM ANTIBODY Nonreactive Nonreactive (BEAKER) (test code = 645) HEPATITIS C ANTIBODY (BEAKER) Nonreactive Nonreactive (test code = 367) HEPATITIS B SURFACE ANTIGEN (2) Nonreactive Nonreactive (BEAKER) (test code = 2585) HIV-1 ANTIGEN WITH HIV-1/2 [id number] 10:25:00 Test Item Value Reference Range Interpretation Comments HIV-1 ANTIGEN WITH HIV 1\\T\\2 Nonreactive Nonreactive ANTIBODY (2) (BEAKER) (test code = 2586) BASIC METABOLIC [id number] 10:05:00 Test Item Value Reference Range Interpretation Comments SODIUM (BEAKER) 137 meq/L 136-145 (test code = 381) POTASSIUM (BEAKER) 3.8 meq/L 3.5-5.1 (test code = 379) CHLORIDE (BEAKER) 102 meq/L 98-107 (test code = 382) CO2 (BEAKER) (test 27 meq/L 22-29 code = 355) BLOOD UREA NITROGEN 9 mg/dL 7-21 (BEAKER) (test code = 354) CREATININE (BEAKER) 0.97 mg/dL 0.57-1.25 (test code = 358) GLUCOSE RANDOM 126 mg/dL 70-105 H (BEAKER) (test code = 652) CALCIUM (BEAKER) 9.2 mg/dL 8.4-10.2 (test code = 697) EGFR (BEAKER) (test 59 mL/min/1.73 ESTIMA PIERRE GFR IS code = 1092) sq m NOT ACCURATE CREATININE CLEARANCE IN PREDICTING GLOMERULAR FILTRATION RATE . ESTIMATED GFR I S NOT APPLICABLE FOR DIALYSIS PATIEN TS. CBC W/PLT COUNT & AUTO [id number] 09:58:00 Test Item Value Reference Range Interpretation Comments WHITE BLOOD CELL COUNT (BEAKER) 7.2 K/ L 4.0-10.0 (test code = 775) RED BLOOD CELL COUNT (BEAKER) 4.13 M/ L 4.00-5.00 (test code = 761) HEMOGLOBIN (BEAKER) (test code = 12.2 GM/DL 12.0-15.0 410) HEMATOCRIT (BEAKER) (test code = 36.1 % 36.0-45.0 411) MEAN CORPUSCULAR VOLUME (BEAKER) 87.4 fL 82.0-99.0 (test code = 753) MEAN CORPUSCULAR HEMOGLOBIN 29.4 pg 27.0-33.0 (BEAKER) (test code = 751) MEAN CORPUSCULAR HEMOGLOBIN CONC 33.7 GM/DL 32.0-36.0 (BEAKER) (test code = 752) RED CELL DISTRIBUTION WIDTH 14.5 % 10.3-14.2 H (BEAKER) (test code = 412) PLATELET COUNT (BEAKER) (test 336 K/CU MM 150-430 code = 756) MEAN PLATELET VOLUME (BEAKER) 6.2 fL 6.5-10.5 L (test code = 754) NUCLEATED RED BLOOD CELLS 0 /100 WBC 0-0 (BEAKER) (test code = 413) NEUTROPHILS RELATIVE PERCENT 61 % (BEAKER) (test code = 429) LYMPHOCYTES RELATIVE PERCENT 24 % (BEAKER) (test code = 430) MONOCYTES RELATIVE PERCENT 11 % (BEAKER) (test code = 431) EOSINOPHILS RELATIVE PERCENT 4 % (BEAKER) (test code = 432) BASOPHILS RELATIVE PERCENT 1 % (BEAKER) (test code = 437) NEUTROPHILS ABSOLUTE COUNT 4.41 K/ L 1.80-8.00 (BEAKER) (test code = 670) LYMPHOCYTES ABSOLUTE COUNT 1.69 K/ L 1.48-4.50 (BEAKER) (test code = 414) MONOCYTES ABSOLUTE COUNT (BEAKER) 0.77 K/ L 0.00-1.30 (test code = 415) EOSINOPHILS ABSOLUTE COUNT 0.27 K/ L 0.00-0.50 (BEAKER) (test code = 416) BASOPHILS ABSOLUTE COUNT (BEAKER) 0.05 K/ L 0.00-0.20 (test code = 417) 0.00POCT-GLUCOSE [id number] 08:28:00 Test Item Value Reference Range Interpretation Comments POC-GLUCOSE METER 134 mg/dL 70-110 H TESTED AT [facility] 6720 (BEAKER) (test code = SYDNEE Rendon [facility] 1538) [id number] POCT-GLUCOSE [id number] 21:33:00 Test Item Value Reference Range Interpretation Comments POC-GLUCOSE METER 142 mg/dL 70-110 H TESTED AT [facility] 6720 (BEAKER) (test code = SYDNEE Rendon [facility] 1538) [id number] URINALYSIS W/ [id number] 13:59:00 Test Item Value Reference Range Interpretation Comments COLOR (BEAKER) (test code = 470) Yellow CLARITY (BEAKER) (test code = 469) Clear SPECIFIC GRAVITY UA (BEAKER) (test 1.035 1.001-1.035 code = 468) PH UA (BEAKER) (test code = 467) 5.5 5.0-8.0 PROTEIN UA (BEAKER) (test code = 20 mg/dL Negative A 464) GLUCOSE UA (BEAKER) (test code = Negative Negative 365) KETONES UA (BEAKER) (test code = Negative Negative 371) BILIRUBIN UA (BEAKER) (test code = Negative Negative 462) BLOOD UA (BEAKER) (test code = 461) Small Negative A NITRITE UA (BEAKER) (test code = Negative Negative 465) LEUKOCYTE ESTERASE UA (BEAKER) Large Negative A (test code = 466) UROBILINOGEN UA (BEAKER) (test code 0.2 mg/dL 0.2-1.0 = 463) RBC UA (BEAKER) (test code = 519) < /HPF WBC UA (BEAKER) (test code = 520) 23 /HPF SQUAMOUS EPITHELIAL (BEAKER) (test < /HPF code = 516) SOURCE(BEAKER) (test code = 2795) COMPREHENSIVE METABOLIC [id number] 12:59:00 Test Item Value Reference Range Interpretation Comments TOTAL PROTEIN 6.3 gm/dL 6.0-8.3 (BEAKER) (test code = 770) ALBUMIN (BEAKER) 3.3 g/dL 3.5-5.0 L (test code = 1145) ALKALINE PHOSPHATASE 62 U/L 40-150 (BEAKER) (test code = 346) BILIRUBIN TOTAL 0.2 mg/dL 0.2-1.2 (BEAKER) (test code = 377) SODIUM (BEAKER) (test 136 meq/L 136-145 code = 381) POTASSIUM (BEAKER) 3.9 meq/L 3.5-5.1 (test code = 379) CHLORIDE (BEAKER) 103 meq/L 98-107 (test code = 382) CO2 (BEAKER) (test 24 meq/L 22-29 code = 355) BLOOD UREA NITROGEN 14 mg/dL 7-21 (BEAKER) (test code = 354) CREATININE (BEAKER) 0.81 mg/dL 0.57-1.25 (test code = 358) GLUCOSE RANDOM 111 mg/dL 70-105 H (BEAKER) (test code = 652) CALCIUM (BEAKER) 9.2 mg/dL 8.4-10.2 (test code = 697) AST (SGOT) (BEAKER) 19 U/L 5-34 (test code = 353) ALT (SGPT) (BEAKER) 14 U/L 6-55 (test code = 347) EGFR (BEAKER) (test 73 mL/min/1.73 ESTIMA PIERRE GFR IS code = 1092) sq m NOT ACCURATE CREATININE CLEARANCE IN PREDICTING GLOMERULAR FILTRATION RATE . ESTIMATED GFR I S NOT APPLICABLE FOR DIALYSIS PATIEN TS. [id number] 12:31:00 Test Item Value Reference Range Interpretation Comments PROTIME (BEAKER) (test code = 13.7 seconds 11.7-14.7 759) INR (BEAKER) (test code = 370) 1.1 <=5.9 PARTIAL THROMBOPLASTIN TIME 35.2 seconds 22.5-36.0 (BEAKER) (test code = 760) RECOMMENDED COUMADIN/WARFARIN INR THERAPY RANGESSTANDARD DOSE: 2.0 - 3.0 Includes: PROPHYLAXIS forvenous thrombosis, systemic embolization; TREATMENT for venous thrombosis and/or pulmonary embolus.HIGH RISK: Target INR is 2.5-3.5 for patients with mechanical heart valves.CBC W/PLT COUNT & AUTO DIFFERENTIAL 2017-03-02 12:18:00 Test Item Value Reference Range Interpretation Comments WHITE BLOOD CELL COUNT (BEAKER) 8.6 K/ L 4.0-10.0 (test code = 775) RED BLOOD CELL COUNT (BEAKER) 4.17 M/ L 4.00-5.00 (test code = 761) HEMOGLOBIN (BEAKER) (test code = 12.4 GM/DL 12.0-15.0 410) HEMATOCRIT (BEAKER) (test code = 36.8 % 36.0-45.0 411) MEAN CORPUSCULAR VOLUME (BEAKER) 88.3 fL 82.0-99.0 (test code = 753) MEAN CORPUSCULAR HEMOGLOBIN 29.8 pg 27.0-33.0 (BEAKER) (test code = 751) MEAN CORPUSCULAR HEMOGLOBIN CONC 33.7 GM/DL 32.0-36.0 (BEAKER) (test code = 752) RED CELL DISTRIBUTION WIDTH 14.4 % 10.3-14.2 H (BEAKER) (test code = 412) PLATELET COUNT (BEAKER) (test 332 K/CU MM 150-430 code = 756) MEAN PLATELET VOLUME (BEAKER) 6.3 fL 6.5-10.5 L (test code = 754) NUCLEATED RED BLOOD CELLS 0 /100 WBC 0-0 (BEAKER) (test code = 413) NEUTROPHILS RELATIVE PERCENT 51 % (BEAKER) (test code = 429) LYMPHOCYTES RELATIVE PERCENT 33 % (BEAKER) (test code = 430) MONOCYTES RELATIVE PERCENT 12 % (BEAKER) (test code = 431) EOSINOPHILS RELATIVE PERCENT 3 % (BEAKER) (test code = 432) BASOPHILS RELATIVE PERCENT 1 % (BEAKER) (test code = 437) NEUTROPHILS ABSOLUTE COUNT 4.41 K/ L 1.80-8.00 (BEAKER) (test code = 670) LYMPHOCYTES ABSOLUTE COUNT 2.80 K/ L 1.48-4.50 (BEAKER) (test code = 414) MONOCYTES ABSOLUTE COUNT (BEAKER) 1.00 K/ L 0.00-1.30 (test code = 415) EOSINOPHILS ABSOLUTE COUNT 0.28 K/ L 0.00-0.50 (BEAKER) (test code = 416) BASOPHILS ABSOLUTE COUNT (BEAKER) 0.09 K/ L 0.00-0.20 (test code = 417) 0.00BLOOD [id number] 06:00:00 Test Item Value Reference Range Interpretation Comments CULTURE (BEAKER) (test No growth in 5 days code = 1095) URINE [id number] 13:38:00 Test Item Value Reference Range Interpretation Comments CULTURE (BEAKER) (test A 50-59 ,000 col/mL Beronica code = 1095) albicans <10,000 col/mL Gram Negative byron<10,000 col/mL skin floraURINALYSIS W/ [id number] 03:34:00 Test Item Value Reference Range Interpretation Comments COLOR (BEAKER) (test code = 470) Yellow CLARITY (BEAKER) (test code = 469) Hazy SPECIFIC GRAVITY UA (BEAKER) (test 1.014 1.001-1.035 code = 468) PH UA (BEAKER) (test code = 467) 5.5 5.0-8.0 PROTEIN UA (BEAKER) (test code = 70 mg/dL Negative A 464) GLUCOSE UA (BEAKER) (test code = Negative Negative 365) KETONES UA (BEAKER) (test code = Negative Negative 371) BILIRUBIN UA (BEAKER) (test code = Negative Negative 462) BLOOD UA (BEAKER) (test code = 461) Moderate Negative A NITRITE UA (BEAKER) (test code = Negative Negative 465) LEUKOCYTE ESTERASE UA (BEAKER) Large Negative A (test code = 466) UROBILINOGEN UA (BEAKER) (test code 0.2 mg/dL 0.2-1.0 = 463) RBC UA (BEAKER) (test code = 519) 79 /HPF WBC UA (BEAKER) (test code = 520) > /HPF MUCUS (BEAKER) (test code = 1574) Rare SQUAMOUS EPITHELIAL (BEAKER) (test 2 /HPF code = 516) SOURCE(BEAKER) (test code = 2795) [id number] 02:16:00 Test Item Value Reference Range Interpretation Comments LIPASE (BEAKER) (test code = 749) 8 U/L 8-78 [id number] 02:16:00 Test Item Value Reference Range Interpretation Comments AMYLASE (BEAKER) (test code = 349) 21 U/L 25-125 L BASIC METABOLIC [id number] 02:16:00 Test Item Value Reference Range Interpretation Comments SODIUM (BEAKER) 136 meq/L 136-145 (test code = 381) POTASSIUM (BEAKER) 4.3 meq/L 3.5-5.1 (test code = 379) CHLORIDE (BEAKER) 101 meq/L 98-107 (test code = 382) CO2 (BEAKER) (test 26 meq/L 22-29 code = 355) BLOOD UREA NITROGEN 15 mg/dL 7-21 (BEAKER) (test code = 354) CREATININE (BEAKER) 0.85 mg/dL 0.57-1.25 (test code = 358) GLUCOSE RANDOM 144 mg/dL 70-105 H (BEAKER) (test code = 652) CALCIUM (BEAKER) 9.9 mg/dL 8.4-10.2 (test code = 697) EGFR (BEAKER) (test 69 mL/min/1.73 ESTIMA PIERRE GFR IS code = 1092) sq m NOT ACCURATE CREATININE CLEARANCE IN PREDICTING GLOMERULAR FILTRATION RATE . ESTIMATED GFR I S NOT APPLICABLE FOR DIALYSIS PATIEN TS. HEPATIC FUNCTION [id number] 02:16:00 Test Item Value Reference Range Interpretation Comments TOTAL PROTEIN (BEAKER) (test code = 7.3 gm/dL 6.0-8.3 770) ALBUMIN (BEAKER) (test code = 1145) 3.9 g/dL 3.5-5.0 BILIRUBIN TOTAL (BEAKER) (test code 0.4 mg/dL 0.2-1.2 = 377) BILIRUBIN DIRECT (BEAKER) (test 0.2 mg/dL 0.1-0.5 code = 706) ALKALINE PHOSPHATASE (BEAKER) (test 78 U/L 40-150 code = 346) AST (SGOT) (BEAKER) (test code = 10 U/L 5-34 353) ALT (SGPT) (BEAKER) (test code = 16 U/L 6-55 347) CBC W/PLT COUNT & AUTO [id number] 02:05:00 Test Item Value Reference Range Interpretation Comments WHITE BLOOD CELL COUNT (BEAKER) 15.7 K/ L 4.0-10.0 H (test code = 775) RED BLOOD CELL COUNT (BEAKER) 4.51 M/ L 4.00-5.00 (test code = 761) HEMOGLOBIN (BEAKER) (test code = 13.1 GM/DL 12.0-15.0 410) HEMATOCRIT (BEAKER) (test code = 40.9 % 36.0-45.0 411) MEAN CORPUSCULAR VOLUME (BEAKER) 90.9 fL 82.0-99.0 (test code = 753) MEAN CORPUSCULAR HEMOGLOBIN 29.1 pg 27.0-33.0 (BEAKER) (test code = 751) MEAN CORPUSCULAR HEMOGLOBIN CONC 32.1 GM/DL 32.0-36.0 (BEAKER) (test code = 752) RED CELL DISTRIBUTION WIDTH 14.4 % 10.3-14.2 H (BEAKER) (test code = 412) PLATELET COUNT (BEAKER) (test 342 K/CU MM 150-430 code = 756) MEAN PLATELET VOLUME (BEAKER) 6.3 fL 6.5-10.5 L (test code = 754) NUCLEATED RED BLOOD CELLS 0 /100 WBC 0-0 (BEAKER) (test code = 413) NEUTROPHILS RELATIVE PERCENT 64 % (BEAKER) (test code = 429) LYMPHOCYTES RELATIVE PERCENT 24 % (BEAKER) (test code = 430) MONOCYTES RELATIVE PERCENT 9 % (BEAKER) (test code = 431) EOSINOPHILS RELATIVE PERCENT 3 % (BEAKER) (test code = 432) BASOPHILS RELATIVE PERCENT 1 % (BEAKER) (test code = 437) NEUTROPHILS ABSOLUTE COUNT 9.98 K/ L 1.80-8.00 H (BEAKER) (test code = 670) LYMPHOCYTES ABSOLUTE COUNT 3.72 K/ L 1.48-4.50 (BEAKER) (test code = 414) MONOCYTES ABSOLUTE COUNT (BEAKER) 1.35 K/ L 0.00-1.30 H (test code = 415) EOSINOPHILS ABSOLUTE COUNT 0.48 K/ L 0.00-0.50 (BEAKER) (test code = 416) BASOPHILS ABSOLUTE COUNT (BEAKER) 0.17 K/ L 0.00-0.20 (test code = 417) 0.00TISSUE [id number] 16:41:00Surgical Pathology Report Case: [id number] Authorizing Provider: Jag Escalera MD Collected: 01/23/2017 1827 Ordering Location: [facility] PER[facility] Received: 01/24/2017 0855 SERVICES Pathologist: Karma Estevez MD Specimen: Soft Tissue, Other, LEFT PROXIMAL URETERAL STRICTURE URETER, LEFT [...] cm. Thetissue is entirely submitted in A1. CG/ewPerformed.[id number] 08:38:00 Test Item Value Reference Range Interpretation Comments CULTURE (BEAKER) (test No anaerobes isolated code = 1095) SURGICALLY OBTAINED CULTURE + GRAM [id number] 15:59:00 Test Item Value Reference Range Interpretation Comments CULTURE (BEAKER) BERONICA A 3+ Beronica (test code = 1095) ALBICANS albicans 5-Flurocytosine Susceptible 0-4 , S (test code = 237) Intermediate <0 or >4 , Resistant >16 Amphotericin B Susceptible >0-0 , No (test code = 136) Interpretations Established <=0 or >0 Caspofungin acetate Susceptible 0-0.25 , S (test code = 141) Non Fluconazole (test Susceptible 0-2 , Dose S code = 143) Dependent Susceptible <0 or >2 , Resi Itraconazole (test Susceptible 0-0.125 , S code = 146) Dose Dependent Susceptible <0 or >.125 Micafungin (test Susceptible 0-0.25 , S code = 148) Non Posaconazole (test Susceptible >0-0 , No code = 152) Interpretations Established <=0 or >0 Voriconazole (test Susceptible 0-0.12 , S code = 153) Dose Dependent Susceptible <0 or >.12 , GRAM STAIN RESULT 4+ WBCs (BEAKER) (test code = 1123) GRAM STAIN RESULT 1+ yeast (BEAKER) (test code = 391872) POCT-GLUCOSE [id number] 13:12:00 Test Item Value Reference Range Interpretation Comments POC-GLUCOSE METER 116 mg/dL 70-110 H TESTED AT [facility] 6720 (BEAKER) (test code = SYDNEE ANDRE 1538) [id number] POCT-GLUCOSE [id number] 12:02:00 Test Item Value Reference Range Interpretation Comments POC-GLUCOSE METER 142 mg/dL 70-110 H TESTED AT [facility] 6720 (BEAKER) (test code = SYDNEE Rendon [place] 1538) [id number] POCT-GLUCOSE [id number] 08:20:00 Test Item Value Reference Range Interpretation Comments POC-GLUCOSE METER 169 mg/dL 70-110 H TESTED AT [facility] 6720 (BEAKER) (test code = SYDNEE Rendon [place] 1538) [id number] 04:58:00 Test Item Value Reference Range Interpretation Comments PHOSPHORUS (BEAKER) (test code = 2.0 mg/dL 2.3-4.7 L 604) [id number] 04:58:00 Test Item Value Reference Range Interpretation Comments MAGNESIUM (BEAKER) (test code = 2.0 mg/dL 1.6-2.6 627) BASIC METABOLIC [id number] 04:58:00 Test Item Value Reference Range Interpretation Comments SODIUM (BEAKER) 140 meq/L 136-145 (test code = 381) POTASSIUM (BEAKER) 4.0 meq/L 3.5-5.1 (test code = 379) CHLORIDE (BEAKER) 109 meq/L 98-107 H (test code = 382) CO2 (BEAKER) (test 21 meq/L 22-29 L code = 355) BLOOD UREA NITROGEN 14 mg/dL 7-21 (BEAKER) (test code = 354) CREATININE (BEAKER) 0.82 mg/dL 0.57-1.25 (test code = 358) GLUCOSE RANDOM 135 mg/dL 70-105 H (BEAKER) (test code = 652) CALCIUM (BEAKER) 8.8 mg/dL 8.4-10.2 (test code = 697) EGFR (BEAKER) (test 72 mL/min/1.73 ESTIMA PIERRE GFR IS code = 1092) sq m NOT ACCURATE CREATININE CLEARANCE IN PREDICTING GLOMERULAR FILTRATION RATE . ESTIMATED GFR I S NOT APPLICABLE FOR DIALYSIS PATIEN TS. CBC W/PLT COUNT & AUTO [id number] 04:14:00 Test Item Value Reference Range Interpretation Comments WHITE BLOOD CELL COUNT (BEAKER) 12.1 K/ L 4.0-10.0 H (test code = 775) RED BLOOD CELL COUNT (BEAKER) 4.18 M/ L 4.00-5.00 (test code = 761) HEMOGLOBIN (BEAKER) (test code = 12.2 GM/DL 12.0-15.0 410) HEMATOCRIT (BEAKER) (test code = 37.8 % 36.0-45.0 411) MEAN CORPUSCULAR VOLUME (BEAKER) 90.4 fL 82.0-99.0 (test code = 753) MEAN CORPUSCULAR HEMOGLOBIN 29.3 pg 27.0-33.0 (BEAKER) (test code = 751) MEAN CORPUSCULAR HEMOGLOBIN CONC 32.4 GM/DL 32.0-36.0 (BEAKER) (test code = 752) RED CELL DISTRIBUTION WIDTH 14.7 % 10.3-14.2 H (BEAKER) (test code = 412) PLATELET COUNT (BEAKER) (test 211 K/CU MM 150-430 code = 756) MEAN PLATELET VOLUME (BEAKER) 6.8 fL 6.5-10.5 (test code = 754) NUCLEATED RED BLOOD CELLS 0 /100 WBC 0-0 (BEAKER) (test code = 413) NEUTROPHILS RELATIVE PERCENT 63 % (BEAKER) (test code = 429) LYMPHOCYTES RELATIVE PERCENT 26 % (BEAKER) (test code = 430) MONOCYTES RELATIVE PERCENT 9 % (BEAKER) (test code = 431) EOSINOPHILS RELATIVE PERCENT 2 % (BEAKER) (test code = 432) BASOPHILS RELATIVE PERCENT 1 % (BEAKER) (test code = 437) NEUTROPHILS ABSOLUTE COUNT 7.57 K/ L 1.80-8.00 (BEAKER) (test code = 670) LYMPHOCYTES ABSOLUTE COUNT 3.12 K/ L 1.48-4.50 (BEAKER) (test code = 414) MONOCYTES ABSOLUTE COUNT (BEAKER) 1.09 K/ L 0.00-1.30 (test code = 415) EOSINOPHILS ABSOLUTE COUNT 0.24 K/ L 0.00-0.50 (BEAKER) (test code = 416) BASOPHILS ABSOLUTE COUNT (BEAKER) 0.08 K/ L 0.00-0.20 (test code = 417) 0.00POCT-GLUCOSE [id number] 21:38:00 Test Item Value Reference Range Interpretation Comments POC-GLUCOSE METER 137 mg/dL 70-110 H TESTED AT [facility] 6720 (BEAKER) (test code = SYDNEE [place] 1538) [address] POCT-GLUCOSE [id number] 11:40:00 Test Item Value Reference Range Interpretation Comments POC-GLUCOSE METER 187 mg/dL 70-110 H TESTED AT [facility] 6720 (BEAKER) (test code = SYDNEE Rendon [facility] 1538) [address] POCT-GLUCOSE [id number] 06:44:00 Test Item Value Reference Range Interpretation Comments POC-GLUCOSE METER 160 mg/dL 70-110 H TESTED AT [facility] 6720 (BEAKER) (test code = SYDNEE Rendon [facility] 1538) [address] BLOOD GAS, [id number] 04:11:00 Test Item Value Reference Range Interpretation Comments PH ARTERIAL (BEAKER) (test code = 7.36 7.35-7.45 383) PCO2 ARTERIAL (BEAKER) (test code 41 mmHg 35-45 = 384) PO2 ARTERIAL (BEAKER) (test code 76 mmHg 80-90 L = 385) O2 SATURATION ARTERIAL (BEAKER) 94.7 % 96.0-97.0 L (test code = 386) HCO3 ARTERIAL (BEAKER) (test code 23 mmol/L 21-29 = 388) BASE EXCESS ARTERIAL (BEAKER) -2.7 mmol/L -2.0-3.0 L (test code = 387) PATIENT TEMPERATURE (BEAKER) 37.0 C (test code = 1818) FIO2 (BEAKER) (test code = 1819) 40.0 % [id number] 04:09:00 Test Item Value Reference Range Interpretation Comments PHOSPHORUS (BEAKER) (test code = 2.9 mg/dL 2.3-4.7 604) [id number] 04:09:00 Test Item Value Reference Range Interpretation Comments MAGNESIUM (BEAKER) (test code = 2.1 mg/dL 1.6-2.6 627) BASIC METABOLIC [id number] 04:09:00 Test Item Value Reference Range Interpretation Comments SODIUM (BEAKER) 139 meq/L 136-145 (test code = 381) POTASSIUM (BEAKER) 4.2 meq/L 3.5-5.1 (test code = 379) CHLORIDE (BEAKER) 108 meq/L 98-107 H (test code = 382) CO2 (BEAKER) (test 20 meq/L 22-29 L code = 355) BLOOD UREA NITROGEN 16 mg/dL 7-21 (BEAKER) (test code = 354) CREATININE (BEAKER) 0.80 mg/dL 0.57-1.25 (test code = 358) GLUCOSE RANDOM 172 mg/dL 70-105 H (BEAKER) (test code = 652) CALCIUM (BEAKER) 8.2 mg/dL 8.4-10.2 L (test code = 697) EGFR (BEAKER) (test 74 mL/min/1.73 ESTIMA PIERRE GFR IS code = 1092) sq m NOT ACCURATE CREATININE CLEARANCE IN PREDICTING GLOMERULAR FILTRATION RATE . ESTIMATED GFR I S NOT APPLICABLE FOR DIALYSIS PATIEN TS. CBC W/PLT COUNT & AUTO [id number] 03:57:00 Test Item Value Reference Range Interpretation Comments WHITE BLOOD CELL COUNT (BEAKER) 14.9 K/ L 4.0-10.0 H (test code = 775) RED BLOOD CELL COUNT (BEAKER) 4.17 M/ L 4.00-5.00 (test code = 761) HEMOGLOBIN (BEAKER) (test code = 12.7 GM/DL 12.0-15.0 410) HEMATOCRIT (BEAKER) (test code = 37.4 % 36.0-45.0 411) MEAN CORPUSCULAR VOLUME (BEAKER) 89.6 fL 82.0-99.0 (test code = 753) MEAN CORPUSCULAR HEMOGLOBIN 30.5 pg 27.0-33.0 (BEAKER) (test code = 751) MEAN CORPUSCULAR HEMOGLOBIN CONC 34.0 GM/DL 32.0-36.0 (BEAKER) (test code = 752) RED CELL DISTRIBUTION WIDTH 12.8 % 10.3-14.2 (BEAKER) (test code = 412) PLATELET COUNT (BEAKER) (test 217 K/CU MM 150-430 code = 756) MEAN PLATELET VOLUME (BEAKER) 6.4 fL 6.5-10.5 L (test code = 754) NUCLEATED RED BLOOD CELLS 0 /100 WBC 0-0 (BEAKER) (test code = 413) NEUTROPHILS RELATIVE PERCENT 74 % (BEAKER) (test code = 429) LYMPHOCYTES RELATIVE PERCENT 17 % (BEAKER) (test code = 430) MONOCYTES RELATIVE PERCENT 8 % (BEAKER) (test code = 431) EOSINOPHILS RELATIVE PERCENT 0 % (BEAKER) (test code = 432) BASOPHILS RELATIVE PERCENT 0 % (BEAKER) (test code = 437) NEUTROPHILS ABSOLUTE COUNT 11.10 K/ L 1.80-8.00 H (BEAKER) (test code = 670) LYMPHOCYTES ABSOLUTE COUNT 2.60 K/ L 1.48-4.50 (BEAKER) (test code = 414) MONOCYTES ABSOLUTE COUNT (BEAKER) 1.13 K/ L 0.00-1.30 (test code = 415) EOSINOPHILS ABSOLUTE COUNT 0.03 K/ L 0.00-0.50 (BEAKER) (test code = 416) BASOPHILS ABSOLUTE COUNT (BEAKER) 0.07 K/ L 0.00-0.20 (test code = 417) 0.00POCT-GLUCOSE [id number] 00:34:00 Test Item Value Reference Range Interpretation Comments POC-GLUCOSE METER 243 mg/dL 70-110 H TESTED AT [facility] 6720 (BEAKER) (test code = [place]A [place] 1538) [address] [id number] 21:39:00 Test Item Value Reference Range Interpretation Comments PHOSPHORUS (BEAKER) (test code = 3.7 mg/dL 2.3-4.7 604) [id number] 21:39:00 Test Item Value Reference Range Interpretation Comments MAGNESIUM (BEAKER) (test code = 1.6 mg/dL 1.6-2.6 627) COMPREHENSIVE METABOLIC [id number] 21:39:00 Test Item Value Reference Range Interpretation Comments TOTAL PROTEIN 6.6 gm/dL 6.0-8.3 (BEAKER) (test code = 770) ALBUMIN (BEAKER) 4.1 g/dL 3.5-5.0 (test code = 1145) ALKALINE PHOSPHATASE 63 U/L 40-150 (BEAKER) (test code = 346) BILIRUBIN TOTAL 0.5 mg/dL 0.2-1.2 (BEAKER) (test code = 377) SODIUM (BEAKER) (test 140 meq/L 136-145 code = 381) POTASSIUM (BEAKER) 3.8 meq/L 3.5-5.1 (test code = 379) CHLORIDE (BEAKER) 108 meq/L 98-107 H (test code = 382) CO2 (BEAKER) (test 20 meq/L 22-29 L code = 355) BLOOD UREA NITROGEN 20 mg/dL 7-21 (BEAKER) (test code = 354) CREATININE (BEAKER) 0.92 mg/dL 0.57-1.25 (test code = 358) GLUCOSE RANDOM 191 mg/dL 70-105 H (BEAKER) (test code = 652) CALCIUM (BEAKER) 8.6 mg/dL 8.4-10.2 (test code = 697) AST (SGOT) (BEAKER) 16 U/L 5-34 (test code = 353) ALT (SGPT) (BEAKER) 20 U/L 6-55 (test code = 347) EGFR (BEAKER) (test 63 mL/min/1.73 ESTIMA PIERRE GFR IS code = 1092) sq m NOT ACCURATE CREATININE CLEARANCE IN PREDICTING GLOMERULAR FILTRATION RATE . ESTIMATED GFR I S NOT APPLICABLE FOR DIALYSIS PATIEN TS. CBC W/PLT COUNT & AUTO [id number] 21:24:00 Test Item Value Reference Range Interpretation Comments WHITE BLOOD CELL COUNT (BEAKER) 17.1 K/ L 4.0-10.0 H (test code = 775) RED BLOOD CELL COUNT (BEAKER) 4.55 M/ L 4.00-5.00 (test code = 761) HEMOGLOBIN (BEAKER) (test code = 13.4 GM/DL 12.0-15.0 410) HEMATOCRIT (BEAKER) (test code = 40.7 % 36.0-45.0 411) MEAN CORPUSCULAR VOLUME (BEAKER) 89.4 fL 82.0-99.0 (test code = 753) MEAN CORPUSCULAR HEMOGLOBIN 29.4 pg 27.0-33.0 (BEAKER) (test code = 751) MEAN CORPUSCULAR HEMOGLOBIN CONC 32.9 GM/DL 32.0-36.0 (BEAKER) (test code = 752) RED CELL DISTRIBUTION WIDTH 14.7 % 10.3-14.2 H (BEAKER) (test code = 412) PLATELET COUNT (BEAKER) (test 228 K/CU MM 150-430 code = 756) MEAN PLATELET VOLUME (BEAKER) 6.4 fL 6.5-10.5 L (test code = 754) NUCLEATED RED BLOOD CELLS 0 /100 WBC 0-0 (BEAKER) (test code = 413) NEUTROPHILS RELATIVE PERCENT 86 % (BEAKER) (test code = 429) LYMPHOCYTES RELATIVE PERCENT 10 % (BEAKER) (test code = 430) MONOCYTES RELATIVE PERCENT 4 % (BEAKER) (test code = 431) EOSINOPHILS RELATIVE PERCENT 0 % (BEAKER) (test code = 432) BASOPHILS RELATIVE PERCENT 0 % (BEAKER) (test code = 437) NEUTROPHILS ABSOLUTE COUNT 14.60 K/ L 1.80-8.00 H (BEAKER) (test code = 670) LYMPHOCYTES ABSOLUTE COUNT 1.68 K/ L 1.48-4.50 (BEAKER) (test code = 414) MONOCYTES ABSOLUTE COUNT (BEAKER) 0.70 K/ L 0.00-1.30 (test code = 415) EOSINOPHILS ABSOLUTE COUNT 0.04 K/ L 0.00-0.50 (BEAKER) (test code = 416) BASOPHILS ABSOLUTE COUNT (BEAKER) 0.06 K/ L 0.00-0.20 (test code = 417) 0.00BLOOD GAS, [id number] 21:20:00 Test Item Value Reference Range Interpretation Comments PH ARTERIAL (BEAKER) (test code = 7.28 7.35-7.45 L 383) PCO2 ARTERIAL (BEAKER) (test code 51 mmHg 35-45 H = 384) PO2 ARTERIAL (BEAKER) (test code 150 mmHg 80-90 H = 385) O2 SATURATION ARTERIAL (BEAKER) 98.7 % 96.0-97.0 H (test code = 386) HCO3 ARTERIAL (BEAKER) (test code 24 mmol/L 21-29 = 388) BASE EXCESS ARTERIAL (BEAKER) -3.7 mmol/L -2.0-3.0 L (test code = 387) PATIENT TEMPERATURE (BEAKER) 36.9 C (test code = 1818) FIO2 (BEAKER) (test code = 1819) 100.0 % BLOOD GAS, [id number] 18:58:00 Test Item Value Reference Range Interpretation Comments PH ARTERIAL (BEAKER) (test code = 7.37 7.35-7.45 383) PCO2 ARTERIAL (BEAKER) (test code 39 mmHg 35-45 = 384) PO2 ARTERIAL (BEAKER) (test code 116 mmHg 80-90 H = 385) O2 SATURATION ARTERIAL (BEAKER) 98.1 % 96.0-97.0 H (test code = 386) HCO3 ARTERIAL (BEAKER) (test code 22 mmol/L 21-29 = 388) BASE EXCESS ARTERIAL (BEAKER) -3.2 mmol/L -2.0-3.0 L (test code = 387) PATIENT TEMPERATURE (BEAKER) 37.0 C (test code = 1818) GLUCOSE-STAT [id number] 18:58:00 Test Item Value Reference Range Interpretation Comments GLUCOSE RANDOM (BEAKER) (test code 179 mg/dL 70-110 H = 652) CALCIUM, [id number] 18:58:00 Test Item Value Reference Range Interpretation Comments CALCIUM IONIZED (BEAKER) (test 0.96 mmol/L 1.12-1.27 L code = 698) PH, BLOOD (BEAKER) (test code = 7.37 1810) SODIUM NA-STAT [id number] 18:57:00 Test Item Value Reference Range Interpretation Comments SODIUM (BEAKER) (test code = 381) 138 meq/L 135-148 POTASSIUM-STAT [id number] 18:57:00 Test Item Value Reference Range Interpretation Comments POTASSIUM (BEAKER) (test code = 3.8 meq/L 3.6-5.5 379) HGB/HCT (H&H) - STAT [id number] 18:57:00 Test Item Value Reference Range Interpretation Comments HEMOGLOBIN (BEAKER) (test code = 12.8 g/dL 12.0-15.0 410) HEMATOCRIT (BEAKER) (test code = 38.0 % 36.0-45.0 411) SODIUM NA-STAT [id number] 17:20:00 Test Item Value Reference Range Interpretation Comments SODIUM (BEAKER) (test code = 381) 138 meq/L 135-148 POTASSIUM-STAT [id number] 17:20:00 Test Item Value Reference Range Interpretation Comments POTASSIUM (BEAKER) (test code = 3.8 meq/L 3.6-5.5 379) HGB/HCT (H&H) - STAT [id number] 17:20:00 Test Item Value Reference Range Interpretation Comments HEMOGLOBIN (BEAKER) (test code = 12.8 g/dL 12.0-15.0 410) HEMATOCRIT (BEAKER) (test code = 38.0 % 36.0-45.0 411) BLOOD GAS, [id number] 17:20:00 Test Item Value Reference Range Interpretation Comments PH ARTERIAL (BEAKER) (test code = 7.38 7.35-7.45 383) PCO2 ARTERIAL (BEAKER) (test code 40 mmHg 35-45 = 384) PO2 ARTERIAL (BEAKER) (test code 103 mmHg 80-90 H = 385) O2 SATURATION ARTERIAL (BEAKER) 97.6 % 96.0-97.0 H (test code = 386) HCO3 ARTERIAL (BEAKER) (test code 23 mmol/L 21-29 = 388) BASE EXCESS ARTERIAL (BEAKER) -1.9 mmol/L -2.0-3.0 (test code = 387) PATIENT TEMPERATURE (BEAKER) 37.0 C (test code = 1818) FIO2 (BEAKER) (test code = 1819) 100.0 % GLUCOSE-STAT [id number] 17:20:00 Test Item Value Reference Range Interpretation Comments GLUCOSE RANDOM (BEAKER) (test code 167 mg/dL 70-110 H = 652) CALCIUM, [id number] 17:20:00 Test Item Value Reference Range Interpretation Comments CALCIUM IONIZED (BEAKER) (test 1.09 mmol/L 1.12-1.27 L code = 698) PH, BLOOD (BEAKER) (test code = 7.38 1810) BLOOD GAS, [id number] 16:34:00 Test Item Value Reference Range Interpretation Comments PH ARTERIAL (BEAKER) (test code = 7.31 7.35-7.45 L 383) PCO2 ARTERIAL (BEAKER) (test code 49 mmHg 35-45 H = 384) PO2 ARTERIAL (BEAKER) (test code 141 mmHg 80-90 H = 385) O2 SATURATION ARTERIAL (BEAKER) 98.6 % 96.0-97.0 H (test code = 386) HCO3 ARTERIAL (BEAKER) (test code 24 mmol/L 21-29 = 388) BASE EXCESS ARTERIAL (BEAKER) -2.3 mmol/L -2.0-3.0 L (test code = 387) PATIENT TEMPERATURE (BEAKER) 37.0 C (test code = 1818) FIO2 (BEAKER) (test code = 1819) 100.0 % GLUCOSE-STAT [id number] 16:34:00 Test Item Value Reference Range Interpretation Comments GLUCOSE RANDOM (BEAKER) (test code 151 mg/dL 70-110 H = 652) CALCIUM, [id number] 16:34:00 Test Item Value Reference Range Interpretation Comments CALCIUM IONIZED (BEAKER) (test 1.11 mmol/L 1.12-1.27 L code = 698) PH, BLOOD (BEAKER) (test code = 7.31 1810) SODIUM NA-STAT [id number] 16:33:00 Test Item Value Reference Range Interpretation Comments SODIUM (BEAKER) (test code = 381) 139 meq/L 135-148 POTASSIUM-STAT [id number] 16:33:00 Test Item Value Reference Range Interpretation Comments POTASSIUM (BEAKER) (test code = 3.6 meq/L 3.6-5.5 379) HGB/HCT (H&H) - STAT [id number] 16:33:00 Test Item Value Reference Range Interpretation Comments HEMOGLOBIN (BEAKER) (test code = 13.0 g/dL 12.0-15.0 410) HEMATOCRIT (BEAKER) (test code = 38.0 % 36.0-45.0 411) BLOOD GAS, [id number] 15:56:00 Test Item Value Reference Range Interpretation Comments PH ARTERIAL (BEAKER) (test code = 7.34 7.35-7.45 L 383) PCO2 ARTERIAL (BEAKER) (test code 46 mmHg 35-45 H = 384) PO2 ARTERIAL (BEAKER) (test code 87 mmHg 80-90 = 385) O2 SATURATION ARTERIAL (BEAKER) 96.4 % 96.0-97.0 (test code = 386) HCO3 ARTERIAL (BEAKER) (test code 24 mmol/L 21-29 = 388) BASE EXCESS ARTERIAL (BEAKER) -2.0 mmol/L -2.0-3.0 (test code = 387) PATIENT TEMPERATURE (BEAKER) 36.1 C (test code = 1818) FIO2 (BEAKER) (test code = 1819) 100.0 % GLUCOSE-STAT [id number] 15:56:00 Test Item Value Reference Range Interpretation Comments GLUCOSE RANDOM (BEAKER) (test code 142 mg/dL 70-110 H = 652) CALCIUM, [id number] 15:56:00 Test Item Value Reference Range Interpretation Comments CALCIUM IONIZED (BEAKER) (test 1.03 mmol/L 1.12-1.27 L code = 698) PH, BLOOD (BEAKER) (test code = 7.32 1810) SODIUM NA-STAT [id number] 15:55:00 Test Item Value Reference Range Interpretation Comments SODIUM (BEAKER) (test code = 381) 138 meq/L 135-148 POTASSIUM-STAT [id number] 15:55:00 Test Item Value Reference Range Interpretation Comments POTASSIUM (BEAKER) (test code = 3.8 meq/L 3.6-5.5 379) HGB/HCT (H&H) - STAT [id number] 15:55:00 Test Item Value Reference Range Interpretation Comments HEMOGLOBIN (BEAKER) (test code = 13.5 g/dL 12.0-15.0 410) HEMATOCRIT (BEAKER) (test code = 40.0 % 36.0-45.0 411) URINALYSIS W/ [id number] 13:28:00 Test Item Value Reference Range Interpretation Comments COLOR (BEAKER) (test code Yellow = 470) CLARITY (BEAKER) (test Hazy code = 469) SPECIFIC GRAVITY UA 1.013 1.001-1.035 (BEAKER) (test code = 468) PH UA (BEAKER) (test code 5.5 5.0-8.0 = 467) PROTEIN UA (BEAKER) (test 10 mg/dL Negative A code = 464) GLUCOSE UA (BEAKER) (test Negative Negative code = 365) KETONES UA (BEAKER) (test Negative Negative code = 371) BILIRUBIN UA (BEAKER) Negative Negative (test code = 462) BLOOD UA (BEAKER) (test Trace Negative A code = 461) NITRITE UA (BEAKER) (test Negative Negative code = 465) LEUKOCYTE ESTERASE UA Large Negative A (BEAKER) (test code = 466) UROBILINOGEN UA (BEAKER) 0.2 mg/dL 0.2-1.0 (test code = 463) RBC UA (BEAKER) (test code 3 /HPF = 519) WBC UA (BEAKER) (test code 128 /HPF = 520) BACTERIA (BEAKER) (test Occasional code = 517) MUCUS (BEAKER) (test code Rare = 1574) SQUAMOUS EPITHELIAL < /HPF (BEAKER) (test code = 516) SOURCE(BEAKER) (test code Urine, Clean Catch = 2795) POCT-GLUCOSE [id number] 12:50:00 Test Item Value Reference Range Interpretation Comments POC-GLUCOSE METER 146 mg/dL 70-110 H TESTED AT [facility] 6720 (BEAKER) (test code = [place] 1538) [address] URINE [id number] 09:26:00 Test Item Value Reference Range Interpretation Comments CULTURE (BEAKER) (test A 50-59 ,000 col/mL Myroides code = 1095) speciesMost meseret sely resembles <10,000 col/mL Beta hemolytic strepURINALYSIS W/ [id number] 11:15:00 Test Item Value Reference Range Interpretation Comments COLOR (BEAKER) (test code = 470) Yellow CLARITY (BEAKER) (test code = 469) Hazy SPECIFIC GRAVITY UA (BEAKER) (test 1.013 1.001-1.035 code = 468) PH UA (BEAKER) (test code = 467) 6.0 5.0-8.0 PROTEIN UA (BEAKER) (test code = 10 mg/dL Negative A 464) GLUCOSE UA (BEAKER) (test code = Negative Negative 365) KETONES UA (BEAKER) (test code = Negative Negative 371) BILIRUBIN UA (BEAKER) (test code = Negative Negative 462) BLOOD UA (BEAKER) (test code = Small Negative A 461) NITRITE UA (BEAKER) (test code = Negative Negative 465) LEUKOCYTE ESTERASE UA (BEAKER) Large Negative A (test code = 466) UROBILINOGEN UA (BEAKER) (test 0.2 mg/dL 0.2-1.0 code = 463) RBC UA (BEAKER) (test code = 519) 3 /HPF WBC UA (BEAKER) (test code = 520) > /HPF BACTERIA (BEAKER) (test code = Occasional 517) SQUAMOUS EPITHELIAL (BEAKER) (test < /HPF code = 516) YEAST (BEAKER) (test code = 1585) Occasional SOURCE(BEAKER) (test code = 2795) BASIC METABOLIC [id number] 11:08:00 Test Item Value Reference Range Interpretation Comments SODIUM (BEAKER) 140 meq/L 136-145 (test code = 381) POTASSIUM (BEAKER) 4.3 meq/L 3.5-5.1 Specimen slightly (test code = 379) hemolyzed CHLORIDE (BEAKER) 104 meq/L 98-107 (test code = 382) CO2 (BEAKER) (test 26 meq/L 22-29 code = 355) BLOOD UREA NITROGEN 19 mg/dL 7-21 (BEAKER) (test code = 354) CREATININE (BEAKER) 0.85 mg/dL 0.57-1.25 Specimen slightly (test code = 358) hemolyzed GLUCOSE RANDOM 141 mg/dL 70-105 H (BEAKER) (test code = 652) CALCIUM (BEAKER) 9.5 mg/dL 8.4-10.2 (test code = 697) EGFR (BEAKER) (test 69 mL/min/1.73 ESTIMA PIERRE GFR IS code = 1092) sq m NOT ACCURATE CREATININE CLEARANCE IN PREDICTING GLOMERULAR FILTRATION RATE . ESTIMATED GFR I S NOT APPLICABLE FOR DIALYSIS PATIEN TS. PROTHROMBIN [id number] 10:58:00 Test Item Value Reference Range Interpretation Comments PROTIME (BEAKER) (test code = 12.8 seconds 11.7-14.7 759) INR (BEAKER) (test code = 370) 1.0 <=5.9 RECOMMENDED COUMADIN/WARFARIN INR THERAPY RANGESSTANDARD DOSE: 2.0 - 3.0 Includes: PROPHYLAXIS forvenous thrombosis, systemic embolization; TREATMENT for venous thrombosis and/or pulmonary embolus.HIGH RISK: Target INR is 2.5-3.5 for patients with mechanical heart valves.[id number] 10:58:00 Test Item Value Reference Range Interpretation Comments PARTIAL THROMBOPLASTIN TIME 35.7 seconds 22.5-36.0 (BEAKER) (test code = 760) CBC W/PLT COUNT & AUTO [id number] 10:48:00 Test Item Value Reference Range Interpretation Comments WHITE BLOOD CELL COUNT (BEAKER) 10.6 K/ L 4.0-10.0 H (test code = 775) RED BLOOD CELL COUNT (BEAKER) 5.12 M/ L 4.00-5.00 H (test code = 761) HEMOGLOBIN (BEAKER) (test code = 14.8 GM/DL 12.0-15.0 410) HEMATOCRIT (BEAKER) (test code = 45.9 % 36.0-45.0 H 411) MEAN CORPUSCULAR VOLUME (BEAKER) 89.5 fL 82.0-99.0 (test code = 753) MEAN CORPUSCULAR HEMOGLOBIN 29.0 pg 27.0-33.0 (BEAKER) (test code = 751) MEAN CORPUSCULAR HEMOGLOBIN CONC 32.4 GM/DL 32.0-36.0 (BEAKER) (test code = 752) RED CELL DISTRIBUTION WIDTH 14.8 % 10.3-14.2 H (BEAKER) (test code = 412) PLATELET COUNT (BEAKER) (test 255 K/CU MM 150-430 code = 756) MEAN PLATELET VOLUME (BEAKER) 6.7 fL 6.5-10.5 (test code = 754) NUCLEATED RED BLOOD CELLS 0 /100 WBC 0-0 (BEAKER) (test code = 413) NEUTROPHILS RELATIVE PERCENT 59 % (BEAKER) (test code = 429) LYMPHOCYTES RELATIVE PERCENT 31 % (BEAKER) (test code = 430) MONOCYTES RELATIVE PERCENT 6 % (BEAKER) (test code = 431) EOSINOPHILS RELATIVE PERCENT 2 % (BEAKER) (test code = 432) BASOPHILS RELATIVE PERCENT 1 % (BEAKER) (test code = 437) NEUTROPHILS ABSOLUTE COUNT 6.30 K/ L 1.80-8.00 (BEAKER) (test code = 670) LYMPHOCYTES ABSOLUTE COUNT 3.34 K/ L 1.48-4.50 (BEAKER) (test code = 414) MONOCYTES ABSOLUTE COUNT (BEAKER) 0.68 K/ L 0.00-1.30 (test code = 415) EOSINOPHILS ABSOLUTE COUNT 0.20 K/ L 0.00-0.50 (BEAKER) (test code = 416) BASOPHILS ABSOLUTE COUNT (BEAKER) 0.12 K/ L 0.00-0.20 (test code = 417) 0.00
--- OUTSIDE RECORDS SUMMARY | 2020-01-20 18:02 | XMS REPORT | Encounter Summary ---
:1960 Author Care Team Providers Name Role Phone Dylan De Luna MD Primary Care Provider [phone] Geoff Villarreal Forecast Analyst [phone] Reason for Visit None recorded. Instructions 1. Persistent cough depot manager referral 2. Blurring of visual image ophthalmology referral Discussion Note: None recorded.Patient educational handouts: No information available. Plan of Care Reminders Provider Appointments None recorded. Lab None recorded. Referral Vehicle Dismantler Lexi Vogt MD Referral 01/08/2020 Ophthalmology Jorge Rodriguez Referral 01/08/2020 Procedures None recorded. Surgeries None recorded. Imaging None recorded. Medications Name Start Date Anoro Ellipta 62.5 mcg-25 mcg/actuation powder for inh alation atorvastatin 40 mg tablet azithromycin 250 mg tablet TAKE 2 TABLETS (500 MG) BY ORAL ROUTE O NCE DAILY FOR 1 DAY THEN 1 TABLET (250 MG) BY ORAL ROUTE ONCE DAILY FOR 4 DAYS benzonatate 200 mg capsule Take 1 capsule 3 times a day by oral route. use as needed for cough bupropion HCl SR 200 mg tablet,12 hr sustained-release Bystolic 5 mg tablet TAKE ONE (1) TABLET(S) BY MOUTH ONCE A DAY. Contour Next Test Strips diazepam 2 mg tablet Take 1 tablet 3 times a day by oral route. escitalopram 20 mg tablet TAKE ONE (1) TABLET(S) BY MOUTH ONCE A DAY. ezetimibe 10 mg tablet Lidocaine Viscous 2 % mucosal solution Take 15 mL every 3 hours by oral route. metformin ER 750 mg tablet,extended release 24 hr Microlet Lancet montelukast 10 mg tablet omeprazole 40 mg capsule,delayed release primidone 50 mg tablet Trulicity 0.75 mg/0.5 mL subcutaneous pen injector Inject 0.5 mL every week by subcutaneous route. Medications Administered None recorded. Vitals None recorded. Results Lab Results None recorded. Allergies Code [...] Type 2 Diabetes Mellitus without Complication Active Edema Active 11/09/2017 Dizziness of Unknown Cause Active 12/27/2017 Tremor Active 12/27/2017 History of Sepsis Active 12/27/2017 Chronic Depression Active 02/01/2018 Strain of Muscle of Right Shoulder Active 03/26/2018 Chronic Low Back Pain Active 05/01/2018 Strain of Knee Active 05/15/2018 Puncture Wound of Foot Active 05/28/2018 Peripheral Nerve Disease Active 07/20/2018 Type II Diabetes Mellitus Uncontrolled Active 8 Bronchitis Active 10/22/2018 Superficial Foreign Body in Wrist Active 12/17/2018 Skin Lesion Active 02/19/2019 Nocturnal Muscle Spasm Active 02/28/2019 Excessive Sweating Active 02/28/2019 Transient Cerebral Ischemia Active 05/14/2019 Cramp in Lower Limb Associated with Sleep Active 2019 Blurring of Visual Image Active 12/25/2019 Persistent Cough Active 12/25/2019 Procedures Date Name Performed by 11/30/2017 Exploration of Kidney Information not av ailable Remove Tonsils and Adenoids Information not available Ankle Arthroscopy/surgery Information no t available Exploration of Kidney Information not av ailable Hysterectomy/revise Vagina Information n ot available Vaccine List Vaccine Type Tdap 05/28/20180.5 mL Social History Tobacco Smoking Status Heavy Tobacco Smoker (1/2 PPD) Past Encounters 12/25/2019 Persistent Cough; Blurring of Visual Amy ge Dylan De Luna MD: [address] [facility] [address], [place] [address], Ph. 11/28/2019 Sore Throat Symptom; Productive Cough Dylan De Luna MD: [address] [facility] [address], [place] [address], Ph. History of Present Illness Note: virtual call
hpi has had persistent cough and sore throat had polyp removed and thinks it may be back
is concerned that mold from car window
ros
gen above
cv neg
resp aboveReview of Systems: ROS as noted in the HPI Review of Systems None recorded. Physical Exam Notes: virtual call
--- OUTSIDE RECORDS SUMMARY | 2020-01-20 18:02 | XMS REPORT | Encounter Summary ---
:1960 Author Care Team Providers Name Role Phone Dylan De Luna MD Primary Care Provider [phone] Goeff Villarreal Emt [phone] Reason for Visit None recorded. Instructions 1. Sore throat symptom sore throat: care instruct ions Zithromax Z-Alexander 250 mg tab let Lidocaine Viscous 2 % muco nusrat solution 2. Productive cough benzonatate 200 mg capsule Discussion Note: None recorded. Plan of Care Reminders Provider Appointments Endoscopy Alvaro Villarreal MD 12/19/2019 10:30AM Lab None recorded. Referral None recorded. Procedures None recorded. Surgeries None recorded. Imaging None recorded. Medications Name Start Date Anoro Ellipta 62.5 mcg-25 mcg/actuation powder for inh alation atorvastatin 40 mg tablet benzonatate 200 mg capsule Take 1 capsule [...] mL every 3 hours by oral route. use as needed for sore throat metformin ER 750 mg tablet,extended release 24 hr Microlet Lancet montelukast 10 mg tablet omeprazole 40 mg capsule,delayed release primidone 50 mg tablet Trulicity 0.75 mg/0.5 mL subcutaneous pen injector Inject 0.5 mL every week by subcutaneous route. Zithromax Z-Alexander 250 mg tablet TAKE 2 TABLETS (500 MG) BY ORAL ROUTE O NCE DAILY FOR 1 DAY THEN 1 TABLET (250 MG) BY ORAL ROUTE ONCE DAILY FOR 4 DAYS take for infection Medications Administered None recorded. Vitals None recorded. Results Lab Results None recorded. Allergies Code Code System Name Reaction Severity Status Onset 825433 RxNorm Benadryl Active 830803 RxNorm Demerol Active 20270816 RxNorm Diflucan Hives [...] Lower Limb Associated with Sleep Active 2019 Procedures Date Name Performed by 11/30/2017 Exploration of Kidney Information not av ailable Remove Tonsils and Adenoids Information not available Ankle Arthroscopy/surgery Information no t available Exploration of Kidney Information not av ailable Hysterectomy/revise Vagina Information n ot available Vaccine List Vaccine Type Tdap 05/28/20180.5 mL Social History Tobacco Smoking Status Heavy Tobacco Smoker (1/2 PPD) Past Encounters 11/28/2019 Sore Throat Symptom; Productive Cough Dylan De Luna MD: [address] [facility] [address], [place] [address], Ph. 11/19/2019 Cramp in Lower Limb Associated with Slee p; Type II Diabetes Mellitus Uncontrolled Dylna De Luna MD: [address] [facility] [address], [place] [address], Ph. History of Present Illness Note: virtual call
cc cough and sore throat
hpi has been using OTC meds not helping productive cough no fever and bp good
ros
gen above
cv above
respcough
heent sore throatReview of Systems: ROS as noted in the HPI Review of Systems None recorded. Physical Exam Notes: virtual call
--- OUTSIDE RECORDS SUMMARY | 2020-01-20 18:02 | XMS REPORT | Summary of Care ---
:1960 Author Organization [facility] Address [address] [place] [address] Care Team Providers Name Role Phone Dylan De Luna Primary Care Provider Reason for Visit Reason Comments Refill Request Encounter Details Date Type Department Care Team Description 12/16/2019 Refill [facility] Endocrinology- Hill Craig MD Refill Request [address] Professional Office [facility] [phone] [address] [place] [address] [facility] [phone] Allergies Active Allergy Reactions Severity Noted Date Comments Miconazole Nitrate Other - See comments High 09/18/2018 P atient states she cannot have any Anti fungal medicati on unless given via IV Diphenhydramine Hcl Anaphylaxis High 09/18/2018 Meperidine Hcl Other - See comments High 09/18/2018 Patie nt states she becomes very ag gressive Morphine Other - See comments High 09/18/2018 Patient states she becomes very ag gressive documented as of this encounter (statuses as of 12/16/2019) Medications Medication Sig Dispensed Refills Start Date End Date Status nebivolol (BYSTOLIC) Take 10 mg 0 Active 10 mg tablet by mouth daily. escitalopram oxalate Take 20 mg 0 Active 20 mg tablet by mouth daily. montelukast 10 mg Take 10 mg 0 A ctive tablet by mouth. bupropion HCl Take by 0 Active (WELLBUTRIN ORAL) mouth. Lancets (MICROLET Use as 300 Each 1 04/02/2019 A ctive LANCET) Misc directed, TID, DX:E11.9 blood sugar Use as 300 Strip 1 04/02/2019 Active diagnostic (CONTOUR directed, NEXT TEST STRIPS) TID, strip DX:E11.9 dulaglutide inject 0.75 13 Syringe 3 07/19/2019 Acti ve (TRULICITY) 0.75 mg under the mg/0.5 mL skin weekly. PnIjIndications: Uncontrolled type 2 diabetes mellitus with hyperglycemia METFORMIN ER 750 mg TAKE ONE (1) 30 tablet 2 11/15/2019 Active 24 hr TABLET(S) BY tabletIndications: MOUTH ONCE A Uncontrolled type 2 DAY WITH diabetes mellitus BREAKFAST. with hyperglycemia EZETIMIBE 10 mg TAKE ONE (1) 30 tablet 3 12/16/2019 Active tabletIndications: TABLET(S) BY Mixed hyperlipidemia MOUTH ONCE A DAY. ezetimibe 10 mg Take 1 30 tablet 4 07/19/2019 12/16/2019 Di scontinued tabletIndications: tablet by Mixed hyperlipidemia mouth daily. documented as of this encounter (statuses as of 12/16/2019) Active Problems Not on filedocumented as of this encounter (statuses as of 12/16/2019) Immunizations Name Administration Dates Next Due Tdap 05/28/2018 documented as of this encounter Social History Tobacco Use Types Packs/Day Years [...] Treatment Date Type Specialty Care Team Description 01/24/2020 Office Visit Endocrinology Diabetes & Hill Gambino MD Metabolism [address] [facility] [address] [place] [phone] Health Maintenance Due Date Last Done Comments HEPATITIS C (HCV) SCREEN 1960 PNEUMOCOCCAL 0-64 YEARS COMBINED 1966 SERIES (1 of 1 - PPSV23) CREATININE (SERUM) 1970 EYE EXAM 1970 PAP SMEAR 1981 Breast Cancer Screening 2000 (MAMMOGRAM) COLONOSCOPY 2010 Zoster Recombinant Vaccine 2010 (SHINGRIX) (1 of 2) LUNG CANCER SCREEN: Recommended 2015 for age 55-80 with 30 + pack year history LDL-C 09/21/2019 09/21/2018 URINE MICROALBUMIN 09/21/2019 09/21/2018 FOOT EXAM 12/19/2019 12/18/2018, 12/18/2018, 09/18/2018, Additional history exists HgA1C 01/18/2020 07/19/2019, 12/18/2018, 09/18/2018 INFLUENZA VACCINE (Season Ended) 2020 DTaP,Tdap,and Td Vaccines (2 - Td) 05/28/2028 05/28/2018 documented as of this encounter Results Not on filedocumented in this encounter Visit Diagnoses Diagnosis Mixed hyperlipidemia documented in this encounter Insurance Payer Benefit Plan / Subscriber ID Effective Dates Phone Addre ss Type Group BCBS OF HIM BCBS BLUE [id number] 2018-Aicha [phone] [place] [address] [place] [phone] [place] [address] documented as of this encounter
[2020-01-20 19:05] LABS: Absolute Lymphocytes (CBC) 3.1 K/uL (0.7-4.9); Basophils % 1.1 % (0-1.3); Hematocrit 45.6 % (36.0-45.0); MPV 7.4 fL (7.6-11.3)
[2020-01-20] MEDS ORDERED: DICYCLOMINE HCL 10 MG CAP ONE (19:17)
[2020-01-20] MEDS ORDERED: NA CHLORIDE 0.9% 1,000 ML ONE (19:17)
[2020-01-20 19:24] LABS: Albumin 3.6 g/dL (3.4-5.0); Bilirubin Direct 0.1 mg/dL (0-0.2); Bilirubin Total 0.5 mg/dL (0.2-1.0); Potassium 3.7 mmol/L (3.5-5.1); Protein, Total 7.2 g/dL (6.4-8.2)
--- NOTE | 2020-01-20 21:00 | RAD REPORT ---
EXAM DESCRIPTION: CT - Abdomen Pelvis Wo Contrast - 01/20/2020 8:49 pm CLINICAL HISTORY: Abdominal pain COMPARISON: 2019 TECHNIQUE: Computed axial tomography of the abdomen and pelvis was obtained. IV and oral contrast we re not requested. All CT scans are performed using dose optimization technique as appropriate and may include automated exposure control or mA/KV adjustment according to patient size. FINDINGS: The evaluation of solid organs, vessels and bowel is limited secondary to the lack of con trast administration. Fatty liver. The spleen, pancreas and adrenals grossly normal Left nephrectomy Right extrarenal pelvis is less prominent than on the prior exam Normal appendix. Small umbilical hernia Spondylosis involves the lumbar spine resulting in spinal stenosis Diverticula stem from the colon. Mild stranding within the fat adjacent to the sigmoid. No free air. No abscess IMPRESSION: Mild sigmoid diverticulitis
[2020-01-20] MEDS ORDERED: CIPROFLOXACIN HCL 500 MG TAB ONE (21:59)
[2020-01-20] MEDS ORDERED: METRONIDAZOLE 500mg IVPB 500 MG/100 ML BAG IV ONE (22:00)
[2020-01-20] MEDS ORDERED: FENTANYL CITR 100 MCG/2 ML ONE (22:00)
--- NOTE | 2020-01-20 22:10 | ER ---
Nurse's Notes [facility] Name: Ankita Todd Age: 59 yrs Sex: Female : 1960 Arrival Date: 01/20/2020 Time: 14:48 Bed 6 Private MD: Diagnosis: Diverticulitis of large intestine without perforation or abscess without bleeding Presentation: 01/19 15:15 Chief complaint: Patient states: abd pain x months. Yellow diarrhea x 3 days. ss Coronavirus screen: Proceed with normal triage. Patient denies a cough. Patient denies shortness of breath or difficulty breathing. Patient denies measured and/or subjective temperature greater than 100.4F prior to today's visit. Patient denies travel on a cruise ship or to a country the [facility] [place] 2[place] currently lists as an affected area. Patient denies contact with known and/or suspected case of COVID-19. Ebola Screen: Patient denies exposure to infectious person. Patient denies travel to an Ebola-affected area in the 21 days before illness onset. Initial Sepsis Screen: Does the patient meet any 2 criteria? No. Patient's initial sepsis screen is negative. Does the patient have a suspected source of infection? No. Patient's initial sepsis screen is negative. Risk Assessment: Do you want to hurt yourself or someone else? Patient reports no desire to harm self or others. Onset of symptoms is unknown. 15:15 Method Of Arrival: Ambulatory ss 15:15 Acuity: BRYAN 3 Triage Assessment: 18:15 General: Appears in no apparent distress. uncomfortable, obese, Behavior is bp cooperative, appropriate for age, anxious. Pain: Complains of pain in abdomen. EENT: No deficits noted. Neuro: No deficits noted. Cardiovascular: No deficits noted. Respiratory: No deficits noted. GI: Reports diarrhea. : No signs and/or symptoms were reported regarding the genitourinary system. Derm: No deficits noted. Musculoskeletal: No deficits noted. Historical: - Allergies: 15:18 Benadryl; ss 15:18 Demerol; ss 15:18 Diflucan; ss 15:18 oral antifungals; ss 15:18 tramadol; ss 15:18 Nitrofurantoin Macrocrystal; ss 15:18 Morphine (Doesn't Work); ss - PMHx: 15:18 Anxiety; Colitis; Diabetes - NIDDM; High Cholesterol; Hypertension; kidney stent; Sleep ss Apnea; - PSHx: 15:18 left kidney removed; ss - Immunization history:: Adult Immunizations up to date. - Social history:: Smoking status: Patient reports the use of cigarette tobacco products, smokes one pack cigarettes per day. Screenin:15 Abuse screen: Denies threats or abuse. Denies injuries from another. Nutritional bp screening: No deficits noted. Tuberculosis screening: No symptoms or risk factors identified. Fall Risk None identified. Assessment: 18:15 General: SEE TRIAGE NOTE. bp 19:35 General: Appears in no apparent distress. comfortable, Behavior is calm, cooperative, rr5 appropriate for age. Pain: Complains of pain in abdomen Pain currently is 7 out of 10 on a pain scale. Quality of pain is described as tender, Pain began gradually, Is intermittent. Neuro: Level of Consciousness is awake, alert, obeys commands, Oriented to person, place, time, situation. Cardiovascular: Capillary refill < 3 seconds Patient's skin is warm and dry. Respiratory: Airway is patent Respiratory effort is even, unlabored, Respiratory pattern is regular, symmetrical. GI: Abdomen is round obese, Bowel sounds present X 4 quads. Abd is soft Reports lower abdominal pain, upper abdominal pain, diarrhea. : No signs and/or symptoms were reported regarding the genitourinary system. EENT: No signs and/or symptoms were reported regarding the EENT system. Derm: Skin is intact, is healthy with good turgor, Skin temperature is warm. Musculoskeletal: Circulation, motion, and sensation intact. Capillary refill < 3 seconds. 20:10 Reassessment: Patient appears in no apparent distress at this time. Patient and/or rr5 family updated on plan of care and expected duration. Pain level reassessed. Patient is alert, oriented x 3, equal unlabored respirations, skin warm/dry/pink. 21:15 Reassessment: Patient appears in no apparent distress at this time. Patient is alert, rr5 oriented x 3, equal unlabored respirations, skin warm/dry/pink. awaiting for CT result. 22:00 Reassessment: Patient appears in no apparent distress at this time. No changes from rr5 previously documented assessment. Patient is alert, oriented x 3, equal unlabored respirations, skin warm/dry/pink. resting on bed, complaining of abdominal pain. ED provider aware with order made and carried out. 22:44 Reassessment: Patient appears in no apparent distress at this time. Patient is alert, rr5 oriented x 3, equal unlabored respirations, skin warm/dry/pink. discharge instruction given and explained without complaints made. Patient states symptoms have improved. Vital Signs: 15:15 BP 143 / 87; Pulse 82; Resp 18; Temp 98.5(TE); Pulse Ox 95% on R/A; Weight 136.08 kg; ss Height 5 ft. 7 in. (170.18 cm); Pain 6/10; 18:42 BP 162 / 115; Pulse 69; Resp 17; Pulse Ox 95% ; bp 19:20 BP 148 / 85; Pulse 65; Resp 16; Temp 97.6; Pulse Ox 99% ; Pain 7/10; rr5 20:20 BP 141 / 75; Pulse 66; Resp 19; Pulse Ox 98% ; rr5 21:30 BP 151 / 75; Pulse 75; Resp 19; Pulse Ox 98% ; rr5 22:10 BP 146 / 79; Pulse 70; Resp 16; Pulse Ox 98% ; rr5 22:44 BP 136 / 78; Pulse 69; Resp 17; Temp 97.8; Pulse Ox 99% ; rr5 15:15 Body Mass Index 46.99 (136.08 kg, 170.18 cm) ss ED Course: 14:48 Patient arrived in ED. as 15:17 Triage completed. ss 15:18 Arm band placed on right wrist. ss 18:15 Patient has correct armband on for positive identification. Bed in low position. Call bp light in reach. Side rails up X2. 18:18 He Rosario PA is PHCP. cp 18:18 Hill Noel MD is Attending Physician. cp 18:40 Sd Ayala, JULIO C is Primary Nurse. bp 18:51 Initial lab(s) drawn, by me, sent to lab. Inserted saline lock: 20 gauge in right dh3 antecubital area, using aseptic technique. Blood collected. 19:05 Matthieu Cooley MD is Attending Physician. cp 19:25 IV discontinued, intact, bleeding controlled, No redness/swelling at site. Pressure rr5 dressing applied, patient complaints of pain at right AC IV line. 19:30 Inserted saline lock: 20 gauge in left forearm, using aseptic technique. rr5 20:45 CT Abd/Pelvis - Without Contrast In Process Unspecified. EDMS 22:09 Carlito Bui MD is Referral Physician. cp 22:47 No provider procedures requiring assistance completed. Patient admitted, IV remains in rr5 place. intact, No redness/swelling at site. Administered Medications: 19:06 CANCELLED (Physician Discretion): fentaNYL (PF) 25 mcg IVP once; RASS on ADMIN: cp Combtv4, Very Agttd3, Agttd2, Rstlss1, AlertClm0, Drwsy-1, Lt Sdtn-2, Mod Sdtn-3, Dp Sdtn-4, UnArsble-5 19:26 Drug: Bentyl 20 mg Route: PO; rr5 20:30 Follow up: Response: No adverse reaction rr5 19:30 Drug: NS 0.9% 500 ml Route: IV; Rate: bolus; Site: left forearm; rr5 19:49 Follow up: Response: No adverse reaction; IV Status: Completed infusion; IV Intake: rr5 500ml 19:49 Drug: NS 0.9% 500 ml Route: IV; Rate: 100 ml/hr; Site: left forearm; rr5 22:48 Follow up: Response: No adverse reaction; IV Status: Completed infusion; IV Intake: rr5 500ml 21:50 Drug: fentaNYL (PF) 25 mcg {Note: rass 0.} Route: IVP; Site: left forearm; rr5 22:48 Follow up: Response: No adverse reaction; RASS: Alert and Calm (0) rr5 22:00 Drug: metroNIDAZOLE 500 mg Volume: 100 ml; Route: IVPB; Infused Over: 30 mins; Site: rr5 left forearm; 22:30 Follow up: Response: No adverse reaction; IV Status: Completed infusion; IV Intake: rr5 100ml 22:04 Drug: Cipro 500 mg Route: PO; rr5 22:48 Follow up: Response: No adverse reaction rr5 Intake: 19:49 IV: 500ml; Total: 500ml. rr5 22:30 IV: 100ml; Total: 600ml. rr5 22:48 IV: 500ml; Total: 1100ml. rr5 Outcome: 22:09 Discharge ordered by . cp 22:47 Discharged to home ambulatory. rr5 22:47 Condition: stable 22:47 Discharge instructions given to patient, Instructed on discharge instructions, follow up and referral plans. medication usage, Demonstrated understanding of instructions, follow-up care, medications, Prescriptions given X 3. 22:49 Patient left the ED. rr5 Addendum: 01/25/2020 07:25 Addendum: Culture Results: Positive stool culture. No further action required. Bacteria e b sensitive to prescribed antibiotic. Signatures: Dispatcher [employer] EDSC Celestina Marie Shelby RN RN He Rosario PA PA cp Herrera, Deanna [facility] Sd Ayala, JULIO C RN Sharon Delatorre Raymond, RN RN rr5
--- NOTE | 2020-01-20 22:10 | EDPHYS ---
Physician Documentation [facility] Name: Ankita Todd Age: 59 yrs Sex: Female : 1960 Arrival Date: 01/20/2020 Time: 14:48 Bed 6 Private MD: ED Physician Matthieu Cooley HPI: 01/19 18:40 This 59 yrs old Female presents to ER via Ambulatory with complaints of cp Abdominal Pain, Diarrhea. 18:40 The patient presents with abdominal pain that is diffuse, worse upper abdomen with pain cp radiating to lower abdomen. Onset: The symptoms/episode began/occurred for months. Associated signs and symptoms: Pertinent positives: diarrhea times 3 days, Pertinent negatives: blood in stools, chest pain, constipation, dysuria, fever, vomiting. The symptoms are described as waxing/waning. Historical: - Allergies: 15:18 Benadryl; ss 15:18 Demerol; ss 15:18 Diflucan; ss 15:18 oral antifungals; ss 15:18 tramadol; ss 15:18 Nitrofurantoin Macrocrystal; ss 15:18 Morphine (Doesn't Work); ss - PMHx: 15:18 Anxiety; Colitis; Diabetes - NIDDM; High Cholesterol; Hypertension; kidney stent; Sleep ss Apnea; - PSHx: 15:18 left kidney removed; ss - Immunization history:: Adult Immunizations up to date. - Social history:: Smoking status: Patient reports the use of cigarette tobacco products, smokes one pack cigarettes per day. ROS: 18:45 Constitutional: Negative for body aches, chills, fever, poor PO intake. cp 18:45 Eyes: Negative for injury, pain, redness, and discharge. cp 18:45 ENT: Negative for ear pain, sore throat, difficulty swallowing, difficulty handling secretions. 18:45 Cardiovascular: Negative for chest pain, palpitations. 18:45 Respiratory: Negative for cough, shortness of breath, wheezing. 18:45 Abdomen/GI: Positive for abdominal pain, diarrhea, Negative for vomiting, constipation, anorexia, black/tarry stool, rectal bleeding. 18:45 Back: Negative for pain with movement. 18:45 : Negative for urinary symptoms. 18:45 Neuro: Negative for dizziness, headache, weakness. 18:45 All other systems are negative. cp Exam: 18:52 Constitutional: The patient appears in no acute distress, alert, awake, cp non-diaphoretic, non-toxic, well developed, well nourished, obese. 18:52 Head/Face: Normocephalic, atraumatic. cp 18:52 Eyes: Periorbital structures: appear normal, Conjunctiva: normal, no exudate, no injection, Sclera: no appreciated abnormality, Lids and lashes: appear normal, bilaterally. 18:52 ENT: External ear(s): are unremarkable, Nose: is normal, Mouth: Lips: moist, Oral mucosa: pink and intact, moist, Posterior pharynx: is normal, airway is patent, no erythema, no exudate. 18:52 Chest/axilla: Inspection: normal, Palpation: is normal, no crepitus, no tenderness. 18:52 Cardiovascular: Rate: normal, Rhythm: regular. 18:52 Respiratory: the patient does not display signs of respiratory distress, Respirations: normal, no use of accessory muscles, labored breathing, is not present, Breath sounds: are clear throughout, no decreased breath sounds, no stridor, no wheezing. 18:52 Abdomen/GI: Inspection: obese Bowel sounds: active, all quadrants, Palpation: soft, in all quadrants, mild abdominal tenderness, in the abdomen diffusely, rebound tenderness, is not appreciated, voluntary guarding, is not appreciated, involuntary guarding, is not appreciated. 18:52 Back: pain, is absent, ROM is normal. Vital Signs: 15:15 BP 143 / 87; Pulse 82; Resp 18; Temp 98.5(TE); Pulse Ox 95% on R/A; Weight 136.08 kg; ss Height 5 ft. 7 in. (170.18 cm); Pain 6/10; 18:42 BP 162 / 115; Pulse 69; Resp 17; Pulse Ox 95% ; bp 19:20 BP 148 / 85; Pulse 65; Resp 16; Temp 97.6; Pulse Ox 99% ; Pain 7/10; rr5 20:20 BP 141 / 75; Pulse 66; Resp 19; Pulse Ox 98% ; rr5 21:30 BP 151 / 75; Pulse 75; Resp 19; Pulse Ox 98% ; rr5 22:10 BP 146 / 79; Pulse 70; Resp 16; Pulse Ox 98% ; rr5 22:44 BP 136 / 78; Pulse 69; Resp 17; Temp 97.8; Pulse Ox 99% ; rr5 15:15 Body Mass Index 46.99 (136.08 kg, 170.18 cm) ss MDM: 18:28 Patient medically screened. cp 19:00 Differential diagnosis: appendicitis, bowel obstruction, cholecystitis, Cholelithiasis, cp diverticulitis, pancreatitis, Pyelonephritis, Ureterolithiasis, urinary tract infection. 22:08 Data reviewed: vital signs, nurses notes, lab test result(s), radiologic studies, CT cp scan, and as a result, I will discharge patient. 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 Response to treatment: the patient's symptoms have markedly improved after treatment, VSS. Pain improved with meds. Will discharge to home for continued monitoring. 22:14 ED course: no active prescriptions for narcotic pain meds noted on [place] prescription cp monitoring website. 06 18:38 Order name: Basic Metabolic Panel; Complete Time: 20:31 cp 01/19 18:38 Order name: CBC with Diff; Complete Time: 19:19 cp 01/19 19:19 Interpretation: Normal except: RBC 5.30; HCT 45.6; MPV 7.4. cp 01/19 18:38 Order name: Hepatic Function; Complete Time: 20:31 cp 01/19 18:38 Order name: Lipase; Complete Time: 20:31 cp 01/19 18:38 Order name: Ova And Parasites cp 01/19 18:38 Order name: Stool Culture cp 01/19 18:38 Order name: CDIFF cp 01/19 20:31 Order name: CT Abd/Pelvis - Without Contrast; Complete Time: 21:06 cp 01/19 21:07 Interpretation: Report reviewed. cp 01/19 18:38 Order name: IV Saline Lock; Complete Time: 18:56 cp 01/19 18:38 Order name: Labs collected and sent; Complete Time: 18:56 cp Administered Medications: 19:06 CANCELLED (Physician Discretion): fentaNYL (PF) 25 mcg IVP once; RASS on ADMIN: cp Combtv4, Very Agttd3, Agttd2, Rstlss1, AlertClm0, Drwsy-1, Lt Sdtn-2, Mod Sdtn-3, Dp Sdtn-4, UnArsble-5 19:26 Drug: Bentyl 20 mg Route: PO; rr5 20:30 Follow up: Response: No adverse reaction rr5 19:30 Drug: NS 0.9% 500 ml Route: IV; Rate: bolus; Site: left forearm; rr5 19:49 Follow up: Response: No adverse reaction; IV Status: Completed infusion; IV Intake: rr5 500ml 19:49 Drug: NS 0.9% 500 ml Route: IV; Rate: 100 ml/hr; Site: left forearm; rr5 22:48 Follow up: Response: No adverse reaction; IV Status: Completed infusion; IV Intake: rr5 500ml 21:50 Drug: fentaNYL (PF) 25 mcg {Note: rass 0.} Route: IVP; Site: left forearm; rr5 22:48 Follow up: Response: No adverse reaction; RASS: Alert and Calm (0) rr5 22:00 Drug: metroNIDAZOLE 500 mg Volume: 100 ml; Route: IVPB; Infused Over: 30 mins; Site: rr5 left forearm; 22:30 Follow up: Response: No adverse reaction; IV Status: Completed infusion; IV Intake: rr5 100ml 22:04 Drug: Cipro 500 mg Route: PO; rr5 22:48 Follow up: Response: No adverse reaction rr5 Disposition: 01/20 02:13 Co-signature as Attending Physician, Matthieu Cooley MD. [email or web address] Disposition: 01/20/20 22:09 Discharged to Home. Impression: Diverticulitis of large intestine without perforation or abscess without bleeding. - Condition is Stable. - Discharge Instructions: High-Fiber Diet, Diverticulitis. - Prescriptions for Cipro 500 mg Oral Tablet - take 1 tablet by ORAL route every 12 hours for 7 days; 20 tablet. Metronidazole 500 mg Oral Tablet - take 1 tablet by ORAL route every 8 hours; 30 tablet. Tylenol- Codeine #3 300-30 mg Oral Tablet - take 2 tablets by ORAL route every 6 hours As needed; 15 tablet. Bentyl 20 mg Oral Tablet - take 2 tablet by ORAL route every 6 hours As needed; 40 tablet. - Medication Reconciliation Form, Thank You Letter, Antibiotic Education, Prescription Opioid Use form. - Follow up: Carlito Bui MD; When: 2 - 3 days; Reason: Recheck today's complaints. - Problem is new. - Symptoms have improved. Signatures: Dispatcher [employer] EDMS Jazmin Eason RN RN ss He Rosario PA PA cp Roque, Raymond, RN RN rr5 Matthieu Cooley MD MD 7 Corrections: (The following items were deleted from the chart) 01/19 19:06 19:06 fentaNYL (PF) 25 mcg IVP once; RASS on ADMIN: Combtv4, Very Agttd3, Agttd2, cp Rstlss1, AlertClm0, Drwsy-1, Lt Sdtn-2, Mod Sdtn-3, Dp Sdtn-4, UnArsble-5 ordered. cp 22:49 22:09 01/20/2020 22:09 Discharged to Home. Impression: Diverticulitis of large rr5 intestine without perforation or abscess without bleeding. Condition is Stable. Forms are Medication Reconciliation Form, Thank You Letter, Antibiotic Education, Prescription Opioid Use. Follow up: Carlito Bui; When: 2 - 3 days; Reason: Recheck today's complaints. Problem is new. Symptoms have improved. cp
[2020-01-20 23:14] VITALS: BP 136/78; TEMP 97.8; O2SAT 99
[2020-01-21 12:35] LABS: C.diff Antigen/Toxin Ag neg : Tox neg (NEG : NEG)
== END 2020-01-20 22:49 | disposition home or self-care (01) ==
LOC: ER 14:44
DX: K57.32 Diverticulitis of large intestine without perforation or abscess without bleeding (principal); I10 Essential (primary) hypertension; F17.210 Nicotine dependence, cigarettes, uncomplicated; Z88.5 Allergy status to narcotic agent; Z88.8 Allergy status to other drugs, medicaments and biological substances
CPT/HCPCS: 96365; 96361; 87045; 85025; 80048; 36415; 87177; 80076; 87046; 87209; 87077; 87186; 87324; 83690; 87449; 74176; 96375; 99284; J3010; J7030

== ENCOUNTER 2021-03-04 13:04 | Inpatient (IN) | payer BC ==
--- OUTSIDE RECORDS SUMMARY | 2021-03-04 13:13 | XMS REPORT | Continuity of Care Document ---
:1960 Author Organization [facility] t Address [address] [place] [address] Care Team Providers Name Role Phone Alfred Perez MD Primary Care Physician Silas CLAIRE, M Attending Clinician Pob, Lab Main Attending Clinician Unavailable Doctor Unassigned, Name Attending Clinician Unavailable Blue CLAIRE, H Attending Clinician LETTY SINGH Attending Clinician Unavailable BRYANNA VILLATORO Attending Clinician Unavailable CLARNECE ESCALERA Attending Clinician Unavailable CHRIS IVORY Attending Clinician Unavailable ALETHEA Attending Clinician Unavailable ASHUTOSH DACOSTA Attending Clinician Unavailable CLARENCE ESCALERA Admitting Clinician Unavailable LIZZETH MEJÍA Admitting Clinician Unavailable CHRIS IVORY Admitting Clinician Unavailable ALETHEA Admitting Clinician Unavailable Problems Condition Condition Condition Status Onset Resolution Last Treating Co mments Source Name Details Category Date Date Treatment Clinician Date Blurring Blurring Problem Active 2020-0 [place] of visual of Visual 5-13 da image Image 00:00: Medical 00 Group Persistent Persistent Problem Active M [facility] cough Cough 5-13 da 00:00: [...] s - renal and renal and 00:00: [facility] remedios ureteral ureteral 00 Center calculous calculous obstructio obstructio n n Severe Severe Disease Active [facility] sepsis sepsis 4-17 [facility] 00:[facility] 00 Center Type 2 Type 2 Problem Active [place] diabetes Diabetes 329 da mellitus Mellitus 00:00: Medica l without without 00 Group complicati Complicati on on Edema Edema Problem Active [place] 3- da 00:00: Medical 00 Group Diverticul Diverticul Problem Active M [place] itis itis 2- da 00:00: Medical Group Lethargy Lethargy Problem Active [place] 1 da 00:00: Medical 00 Group Complicate Complicate Disease Active 2016-[address] d UTI d UTI 1-04 [facility] - (urinary (urinary 00:00: Medica l tract tract 00 Center infection) infection) Ureteropel Ureteropel Disease Active 2016-[address] agustina agustina 0-31 [facility] - junction junction 00:00: Medica l (UPJ) (UPJ) 00 Center obstructio obstructio n, right n, right Urinary Ur[facility] infectious Infectious 00:00: Me dical disease Disease 00 Group Candidiasi Candidiasi Problem Active [facility] s of skin s of Skin 8- da 00:00: Medical 00 Group Ureteric Ureteric [...] Slow Disease Active [facility]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 7-21 [facility] - constipati constipati 00:00: Me dical on on Center Occluded Occluded Disease Active [facility] [...] Tobacco Disease Active [facility] use use 12-28 [facility] - 00:00: Medical 00 Center Allergies, Adverse Reactions, Alerts Allergy Allergy Status Severity Reaction(s) Onset Inactive Treating Comm ents Source Name Type Date Date Clinician No Known DA Active U SJm Drug 4-16 Allergie 00:00: s 00 Fluconaz Propensi Active Itching, Not as [facility] ole ty to Rash 03-04 bad with [facility] - adverse 00:00: intraveno Medica l reaction 00 us but Center s worse with oral per her pt MPOA Kiara Antunez Miconazo Propensi Active Itching [facility] le ty to 7- [facility] - Nitrate adverse 00:00: Medical reaction 00 Center s Diphenhy Propensi Active Other (See Patient C HI [facility] dramine ty to Comments), 7 states [facility] - Hcl adverse Anaphylaxis 00:00: her Medi remedios reaction 00 throat Center s "closes up"Halluc inations. Meperidi Propensi Active Other (See Numbness [facility] ne ty to Comments) 7-10 per [facility] - adverse 00:00: patient Medical reaction 00 Pt Center s becomes aggressiv e Tramadol Propensi Active Other (See Paranoia; [facility] ty to Comments) 6-05 nightmare Luke s - adverse 00:00: s Medical reaction 00 Center s Morphine Drug Active Aggressiv [facility] t Intolera 12-28 enessSeve [facility] - nce 00:00: re Medical [...] Stop Date Source Natural brother Heart disease [facility] Maternal grandfather Cancer [facility] Maternal uncle Heart disease [facility] Natural mother Heart disease [facility] Social History Social Habit Start Date Stop Date Quantity Comments Source Sex Assigned At [facility] Cigarettes smoked 2017-12-01 2017-12-01 [facility] per 00:00:00 00:00:00 Medical Center day) - Reported Cigarette 2017-12-01 2017-12-[address] [facility] [address] [facility] - pack-years 00:00:00 00:00:00 [facility] Tobacco use and 2017-12-01 2017-12-01 Never used [facility]es - exposure 00:00:00 00:00:00 [facility] Alcohol intake 2017-12-01 2017-12-01 Current [facility] - 00:[facility]:00 00:00:00 non-drinker of Medical nter alcohol (finding) Smoking Status Start Date Stop Date Source Heavy Tobacco Smoker [facility] Current every day smoker 2017-12-01 00:00:00 [facility] Medications Ordered Filled Start Stop Current Ordering Indication Dosage Frequency Signature Comments Components Source Medication Medication Date Date Medication? Clinician (SIG) Name Name metaxalone Yes 800mg Take [address] (SKELAXIN) 4-21 mg by [facility] - 800 MG 11:21: mouth Medical tablet 07 every 6 Center (six) hours as needed for Muscle spasms. L. Yes 2{tbl} QD Take [address] ACIDOPHILUS 4-21 tablets by Ariana kes - /DIG ENZ 11:21: mouth Medical CMB 5 07 daily. Center (PROBIOTIC- DIGESTIVE ENZYMES ORAL) VALERIAN Yes 470mg Take [address] ORAL 4-21 mg by [facility] - 11:21: mouth as Medical 07 needed . Center Missing or Yes every [address] Non-Formula 4-21 (one) hour Ariana kes - ry 11:21: Kidney [facility] Medication 07 otc Center vitamin . OREGANO OIL 2017-0 Yes QD Take by [facility] ORAL 4-21 mouth [facility] - 11:21: daily. Medical 07 Center KELP ORAL 2017-0 Yes QD Take by [facility] t 4-21 mouth [facility] - 11:21: daily. Medical [address] [place] [address] GRAPEFRUIT 2017-0 Yes QD Take by [facility] FORMULA 4-21 mouth [facility] - ORAL 11:21: daily. Medical Center COQ10, 2017-0 Yes QD Take by [facility] UBIQUINOL, 4-21 mouth [facility] - ORAL 11:21: daily. [address] carica 2017-0 Yes Take by [facility] papaya -21 mouth as [facility] - (PAPAYA 11:21: needed. Medical ENZYME) Tab [address] [place] [address] ENZYMES,DIG 2017-0 Yes QD Take by [facility] ESTIVE -21 mouth [facility] - (DIGESTIVE 11:21: daily. Medic al ENZYMES Center ORAL) vitamin E 2017-0 Yes 400U QD Take [address] 400 UNIT - Units by [facility] - capsule 11:21: mouth Medical 07 daily. [place] CALCIUM/MAG 2018-0 Yes QD Take by [facility] NESIUM/VIT -21 mouth [facility] - B COMP 11:21: daily. Medical (CALCIUM-MA Center GNESIUM-B COMPLEX ORAL) GARLIC ORAL 2017-0 Yes QD Take by [facility] -21 mouth [facility] - 11:21: daily. [address] metFORMIN 0 Yes 500mg Take [address] [facility] (GLUCOPHAGE 4-21 mg by [facility] - ) 500 MG 11:21: mouth Medical tablet 07 daily with Center breakfast . nebivolol 0 Yes 5mg QD Take [address] (BYSTOLIC) -21 by mouth [facility] - 5 MG tablet 11:21: daily. [facility] remedios [address] [place] [address] Anoro Anoro No Anoro [place] Ellipta Ellipta [...] Source Name Name Tdap Tdap 2018-05-28 Completed [place] 12:28:00 Medical Group Vital Signs Vital Name Observation Time Observation Value Comments Source BP Diastolic 2019-09-26 00:00:00 103 mm[facility]Hg] [facility] Height 2019-09-26 00:00:00 67 [in_i] [facility] BMI (Body Mass 2019-09-26 00:00:00 44.6 kg/m2 [facility] Medical Index) Group BP Systolic 2019-09-26 00:00:00 156 mm[Hg] [facility] Body Weight 2019-09-26 00:00:00 4560 [oz_av] [facility] BP Diastolic 2019-07-26 00:00:00 100 mm[Hg] [facility] Height 2019-07-26 00:00:00 67 [in_i] [facility] BMI (Body Mass 2019-07-26 00:00:00 44.5 kg/m2 [facility] Medical Index) Group BP Systolic 2019-07-26 00:00:00 170 mm[Hg] [facility] Body Weight 2019-07-26 00:00:00 4544 [oz_av] [facility] BP Diastolic 2019-05-23 00:00:00 78 mm[Hg] [facility] Height 2019-05-23 00:00:00 67 [in_i] [facility] BMI (Body Mass 2019-05-23 00:00:00 43.4 kg/m2 [facility] Medical Index) Group BP Systolic 2019-05-23 00:00:00 150 mm[Hg] [facility] Body Weight 2019-05-23 00:00:00 276.8 [lb_av] [facility] BP Diastolic 2019-05-14 00:00:00 96 mm[Hg] [facility] Height 2019-05-14 00:00:00 67 [in_i] [facility] BMI (Body Mass 2019-05-14 00:00:00 43.9 kg/m2 [facility] Medical Index) Group BP Systolic 2019-05-14 00:00:00 164 mm[Hg] [facility] Body Weight 2019-05-14 00:00:00 4480 [oz_av] [facility] BP Diastolic 2019-02-28 00:00:00 79 mm[Hg] [facility] Height 2019-02-28 00:00:00 67 [in_i] [facility] BMI (Body Mass 2019-02-28 00:00:00 42.6 kg/m2 [facility] Medical Index) Group BP Systolic 2019-02-28 00:00:00 141 mm[Hg] [facility] Body Weight 2019-02-28 00:00:00 4352 [oz_av] [facility] BP Diastolic 2019-02-20 00:00:00 81 mm[Hg] [facility] Height 2019-02-20 00:00:00 67 [in_i] [facility] BMI (Body Mass 2019-02-20 00:00:00 42.3 kg/m2 [facility]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 BP Systolic 2019-02-20 00:00:00 120 mm[Hg] [facility] Body Weight 2019-02-20 00:00:00 270.3 [lb_av] [facility] BP Diastolic 2019-02-19 00:00:00 83 mm[Hg] [facility] Height 2019-02-19 00:00:00 67 [in_i] [facility] BMI (Body Mass 2019-02-19 00:00:00 42.3 kg/m2 [facility]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 BP Systolic 2019-02-19 00:00:00 136 mm[Hg] [facility] Body Weight 2019-02-19 00:00:00 4320 [oz_av] [facility] BP Diastolic 2019-01-24 00:00:00 89 mm[Hg] [facility] Height 2019-01-24 00:00:00 67 [in_i] [facility] BMI (Body Mass 2019-01-24 00:00:00 42.3 kg/m2 [facility]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 BP Systolic 2019-01-24 00:00:00 126 mm[Hg] [facility] Body Weight 2019-01-24 00:00:00 269.8 [lb_av] [facility] BP Diastolic 2018-12-27 00:00:00 81 mm[Hg] [facility] Height 2018-12-27 00:00:00 67 [in_i] [facility] BMI (Body Mass 2018-12-27 00:00:00 42.8 kg/m2 [facility]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 BP Systolic 2018-12-27 00:00:00 129 mm[Hg] [facility] Body Weight 2018-12-27 00:00:00 273.2 [lb_av] [facility] BP Diastolic 2018-12-17 00:00:00 93 mm[Hg] [facility] Height 2018-12-17 00:00:00 67 [in_i] [facility] BMI (Body Mass 2018-12-17 00:00:00 42.9 kg/m2 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 BP Systolic 2018-12-17 00:00:00 161 mm[Hg] [facility] Body Weight 2018-12-17 00:00:00 4384 [oz_av] [facility] BP Diastolic 2018-12-06 00:00:00 88 mm[Hg] [facility] Height 2018-12-06 00:00:00 67 [in_i] [facility] BMI (Body Mass 2018-12-06 00:00:00 43 kg/m2 [facility]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 BP Systolic 2018-12-06 00:00:00 152 mm[Hg] [facility] Body Weight 2018-12-06 00:00:00 274.7 [lb_av] [facility] BP Diastolic 2018-10-22 00:00:00 84 mm[Hg] [facility] Height 2018-10-22 00:00:00 67 [in_i] [facility] BMI (Body Mass 2018-10-22 00:00:00 43.5 kg/m2 [facility]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 BP Systolic 2018-10-22 00:00:00 152 mm[Hg] [facility] Body Weight 2018-10-22 00:00:00 4448 [oz_av] [facility] BP Diastolic 2018-08-27 00:00:00 100 mm[Hg] [facility] Height 2018-08-27 00:00:00 67 [in_i] [facility] BMI (Body Mass 2018-08-27 00:00:00 44.6 kg/m2 [facility]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 BP Systolic 2018-08-27 00:00:00 186 mm[Hg] [facility] Body Weight 2018-08-27 00:00:00 4560 [oz_av] [facility] BP Diastolic 2018-08-06 00:00:00 104 mm[Hg] [facility] Height 2018-08-06 00:00:00 67 [in_i] [facility] BMI (Body Mass 2018-08-06 00:00:00 43.9 kg/m2 [facility]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 BP Systolic 2018-08-06 00:00:00 166 mm[Hg] [facility] Body Weight 2018-08-06 00:00:00 4480 [oz_av] [facility] Height 2018-07-30 00:00:00 67 [in_i] [facility] BMI (Body Mass 2018-07-30 00:00:00 43.9 kg/m2 [facility]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 Body Weight 2018-07-30 00:00:00 280 [lb_av] [facility] 02 Sat by Pulse 2020-12-02 11:20:37 95 /min Oximetry Body Mass Index 2020-12-02 11:20:37 43.5 Height 2020-12-02 11:20:37 170.18\\S\\67 Pulse Rate 2020-12-02 11:20:37 69 /min Pulse Strength 2020-12-02 11:20:37 Normal /min Pulse Assessment 2020-12-02 11:20:37 Palpation /min Method Pulse Rhythm 2020-12-02 11:20:37 Regular /min Respiratory Rate 2020-12-02 11:20:37 15 /min Respiratory Depth 2020-12-02 11:20:37 Normal /min Respiratory Effort 2020-12-02 11:20:37 Spontaneous /min Respiratory Pattern 2020-12-02 11:20:37 Normal /min Weight 2020-12-02 11:20:37 002249.678\\S\\4448 Weight Measurement 2020-12-02 11:20:37 Estimated by Method Patient 02 Sat by Pulse 2020-11-28 00:12:35 95 /min Oximetry Body Mass Index 2020-11-28 00:12:35 43.5 Height 2020-11-28 00:12:35 170.18\\S\\67 Pulse Rate 2020-11-28 00:12:35 69 /min Pulse Strength 2020-11-28 00:12:35 Normal /min Pulse Assessment 2020-11-28 00:12:35 Palpation /min Method Pulse Rhythm 2020-11-28 00:12:35 Regular /min Respiratory Rate 2020-11-28 00:12:35 15 /min Respiratory Depth 2020-11-28 00:12:35 Normal /min Respiratory Effort 2020-11-28 00:12:35 Spontaneous /min Respiratory Pattern 2020-11-28 00:12:35 Normal /min Weight 2020-11-28 00:12:35 603887.678\\S\\4448 Weight Measurement 2020-11-28 00:12:35 Estimated by Method Patient 02 Sat by Pulse 2020-11-27 12:19:31 97 /min Oximetry Body Mass Index 2020-11-27 12:19:31 43.5 Height 2020-11-27 12:19:31 170.18\\S\\67 Pulse Rate 2020-11-27 12:19:31 69 /min Pulse Strength 2020-11-27 12:19:31 Normal /min Pulse Assessment 2020-11-27 12:19:31 Palpation /min Method Respiratory Rate 2020-11-27 12:19:31 15 /min Weight 2020-11-27 12:19:31 543083.678\\S\\4448 Weight Measurement 2020-11-27 12:19:31 Estimated by Method Patient Body Mass Index 2020-11-27 09:51:35 43.5 Height 2020-11-27 09:51:35 170.18\\S\\67 Weight 2020-11-27 09:51:35 429983.678\\S\\4448 Weight Measurement 2020-11-27 09:51:35 Estimated by Method Patient Height 2020-11-27 09:51:32 170.18\\S\\67 Weight Measurement 2020-11-27 09:51:32 Estimated by Staff Method Height 2020-11-27 09:51:22 170.18\\S\\67 Weight Measurement 2020-11-27 09:51:22 Estimated by Staff Method WEIGHT 2020-11-27 08:59:00 126.350557 kg HEIGHT 2020-11-27 08:59:00 170.18 cm HEIGHT 2020-11-27 08:32:00 170.18 cm Procedures Procedure Date / Time Performing Clinician Source Performed US, duplex, carotid 2019-05-20 [facility] US, doppler, arterial 2019-05-14 00:00:00 [facility] XR, wrist 2018-12-17 00:00:00 [facility] dical Group TYMPANOMETRY 2018-12-06 00:00:00 [facility] dical Group unlisted imaging order 2018-10-22 00:00:00 [facility] TYMPANOMETRY 2018-07-20 00:00:00 [facility] dical Group unlisted imaging order 2018-07-20 00:00:00 [facility] Exploration of Kidney 2017-11-30 00:00:00 [facility] Group Remove Tonsils and [place] [facility] ical Adenoids Group Ankle [place] Medica l Arthroscopy/surgery Group Hysterectomy/revise [place] Me dical Vagina Group Encounters Start End Encounter Admission Attending Care Care Encounter Source Date/Time Date/Time Type Type Clinicians Facility Department ID 2020-08-13 2020-08-13 [facility] [id number] 10:23:40 23:59:00 Encounter Mika Renee Emiliano [id number] [place] [id number] [place] [id number] 2020-08-13 2020-08-13 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 [id number] 2020-05-11 2020-05-11 Telephone [facility] [id number] 00:00:00 00:00:00 [place]ina[place] Emiliano [id number] [place] [id number] Professio [id number] [facility] 2019-12-25 2019-12-25 Dylan RODARTE [place] - [id number] M [facility] 00:00:00 00:00:00 MD Calixto: [facility] [employer] [place] - [address], [place] [address] , Ph. 2019-11-28 2019-11-28 Dylan RODARTE [place] - [id number] M [facility] 00:00:00 00:00:00 MD Calixto: [facility] [employer] [place] - [address], [place] [address] , Ph. 2019-11-19 2019-11-19 Dylan RODARTE [place] - [id number] M [place] 00:00:00 00:00:00 MD Calixto: [address] [place] - [address], [facility] [place] [address] , Ph. 2019-09-26 2019-09-26 Dylan RODARTE [place] - [id number] M [place] 00:00:00 00:00:00 MD Calixto: [address] [place] - [address], [facility], [facility] [place] [address] , Ph. 2019-07-26 2019-07-26 Dylan RODARTE [place] - [id number] M [facility] 00:00:00 00:00:00 MD Calixto: [address] [place] - [address], [facility], [facility] [place] [address] , Ph. 2019-05-23 2019-05-23 Palefra ROD[place]TE [place] - [id number] [place] 00:00:00 00:00:00 MD Cherelle: [address], [place] - [address], Otolaryngol [place], [facility] [place] [address] , Ph. 2019-05-14 2019-05-14 Dylan RODARTE [place] - [id number] M [facility] 00:00:00 00:00:00 MD Calixto: [address] [place] - [address], [facility] [place] [address] , Ph. 2019-02-28 2019-02-28 Dylan RODARTE [place] - [id number] M [facility] 00:00:00 00:00:00 MD Calixto: [address], [place] - [address], [facility], [facility] [place] [address] , Ph. 2019-02-20 2019-02-20 Geoff RODARTE [place] - [id number] [place] 00:00:00 00:00:00 MD Cherelle: [address], [place] - [address], [facility], [facility] [place] [address] , Ph. 2019-02-19 2019-02-19 Dylan Lara MM [place] - [id number] M [facility] 00:00:00 00:00:00 MD Calixto: [address], [place] - [address], [facility] [place] [address] , Ph. 2019-01-24 2019-01-24 Paljose eduardola MM [place] - [id number] [place] 00:00:00 00:00:00 MD Cherelle: [address], [place] - [address], [facility], [facility] [place] [address] , Ph. 2018-12-27 2018-12-27 Paljose eduardola MM [place] - [id number] [place] 00:00:00 00:00:00 MD Cherelle: [address], [place] - [address], [facility], [facility] [place] [address] , Ph. 2018-12-17 2018-12-17 Dylan Lara MM [place] - [id number] M [facility] 00:00:00 00:00:00 MD Calixto: [address], [place] - [address], [facility], [facility] [place] [address] , Ph. 2018-12-06 2018-12-06 Paljose eduardola MM [place] - [id number] [place] 00:00:00 00:00:00 MD Cherelle: [address], [place] - [address], [facility], [facility] [place] [address] , Ph. 2018-10-22 2018-10-22 Dylan Lara [facility] [place] - [id number] M [facility] 00:00:00 00:00:00 MD Calixto: [address], [place] - [address], [facility], [facility] [place] [address] , Ph. 2018-08-27 2018-08-27 Dylan Lara MM [place] - [id number] M [facility] 00:00:00 00:00:00 MD Calitxo: [address], [place] - [address], [facility] [place] [address] , Ph. 2018-08-06 2018-08-06 Dylan Lara MM [place] - [id number] M [facility] 00:00:00 00:00:00 MD Calixto: [address], [place] - [address], [facility], [facility] [place] [address] , Ph. 2018-07-30 2018-07-30 [facility] [place] - [id number] [place] 00:00:00 00:00:00 MD Cherelle: [address], [place] - [address], [facility], [facility] [place] [address] , Ph. 2018-07-20 2018-07-20 [facility] [place] - [id number] [place] 00:00:00 00:00:00 MD Cherelle: [address], [place] - [address], [facility], [facility] [place] [address] , Ph. Results Test Description Test Time Test Comments Results Result Sourc e Comments Surgical pathology 2019-02-11 Study Report Castro jimmy study 08:11:00 Medical [facility] Surgical pathology 2019-02-11 Study Report Castro jimmy study 08:11:00 Medical [facility] Surgical pathology 2019-02-11 Study Report Castro jimmy study 08:11:00 Medical Group CBC W Auto Differential panel - Blood [...] volume] (test 87.6 fL 78-98 code = 94594-8) Erythrocyte mean corpuscular hemoglobin [Entitic mass] (test 27.9 p g 26.2-33.4 code = 15494-4) mean corpuscular HGB conc (test code = mean corpuscular HGB 31.8 g/dL 31.5-36.2 conc) red cell distribution width (test code = red cell 13.5 % 11.5 -15.5 distribution width) Platelets [#/volume] in Blood (test code = 38775-4) 282 K/uL 13 7-338 Platelet mean volume [Entitic volume] in Blood (test code = 5.8 fL 8.4-11.8 L 53575-7) Neutrophils.band form/100 leukocytes in Blood (test code = 64.4 % 44.4-80.1 48487-6) Lymphocytes/100 leukocytes in Body fluid (test code = 24.8 % 10.0-50.0 88703-7) Monocytes/100 leukocytes in Blood by Automated count (test 7.2 % 3.6-12.0 code = 5905-5) Eosinophils/100 leukocytes in Blood by Automated count (test 2.0 % 0.0-5.4 code = 713-8) Basophils/100 leukocytes in Unspecified specimen (test code = 1.6 % 0.0-0.79 H 96019-6) [id number] 12:55:00 Test Item Value Reference Range Interpretation Comments prothrombin time (test code = 10.1 seconds 10.3-12.3 L prothrombin time) INR in Blood by Coagulation 0.92 assay (test code = 42610-5) [facility] [id number] 12:55:00 Test Item Value Reference Range Interpretation Comments INR in Blood by Coagulation 28.2 seconds 22.5-37.0 assay (test code = 34462-2) [facility] metabolic 2000 panel - Serum or [id number] 12:55:00 Test Item Value Reference Range Interpretation [...] code = calcium 10.0 mg/dL 8.6-10.0 level) [facility] W Auto Differential panel - [id number] 12:55:00 Test Item Value Reference Range Interpretation Comments white blood count (test code = 11.0 K/uL 4.0-11.5 white blood count) red blood count (test code = red 5.16 M/uL 3.80-5.20 blood count) Hemoglobin [Mass/volume] in Blood 14.4 g/dL 10.5-15.7 (test code = 718-7) hematocrit (test code = hematocrit) 45.2 % 34.0-50.0 Erythrocyte mean corpuscular volume 87.6 fL 78-98 [Entitic volume] (test code = 03660-3) Erythrocyte mean corpuscular 27.9 pg 26.2-33.4 hemoglobin [Entitic mass] (test code = 57354-2) mean corpuscular HGB conc (test 31.8 g/dL 31.5-36.2 code = mean corpuscular HGB conc) red cell distribution width (test 13.5 % 11.5-15.5 code = red cell distribution width) Platelets [#/volume] in Blood (test 282 K/uL 137-338 code = 58099-4) Platelet mean volume [Entitic 5.8 fL 8.4-11.8 L volume] in Blood (test code = 83058-0) Neutrophils.band form/100 64.4 % 44.4-80.1 leukocytes in Blood (test code = 46083-1) Lymphocytes/100 leukocytes in Body 24.8 % 10.0-50.0 fluid (test code = 44757-6) Monocytes/100 leukocytes in Blood 7.2 % 3.6-12.0 by Automated count (test code = 5905-5) Eosinophils/100 leukocytes in Blood 2.0 % 0.0-5.4 by Automated count (test code = 713-8) Basophils/100 leukocytes in 1.6 % 0.0-0.79 H Unspecified specimen (test code = 31378-8) [facility]PT/[id number] 12:55:00 Test Item Value Reference Range Interpretation Comments prothrombin time (test code = 10.1 seconds 10.3-12.3 L prothrombin time) INR in Blood by Coagulation 0.92 assay (test code = 39946-9) [facility] thromb[facility]in [id number] 12:55:00 Test Item Value Reference Range Interpretation Comments INR in Blood by Coagulation 28.2 seconds 22.5-37.0 assay (test code = 22049-6) [facility] CountyBasic metabolic 2000 panel - Serum or [id number] 12:55:00 Test Item Value Reference Range Interpretation [...] code = calcium 10.0 mg/dL 8.6-10.0 level) [facility] W Auto Differential panel - [id number] 12:55:00 Test Item Value Reference Range Interpretation Comments white blood count (test code = 11.0 K/uL 4.0-11.5 white blood count) red blood count (test code = red 5.16 M/uL 3.80-5.20 blood count) Hemoglobin [Mass/volume] in Blood 14.4 g/dL 10.5-15.7 (test code = 718-7) hematocrit (test code = hematocrit) 45.2 % 34.0-50.0 Erythrocyte mean corpuscular volume 87.6 fL 78-98 [Entitic volume] (test code = 99684-8) Erythrocyte mean corpuscular 27.9 pg 26.2-33.4 hemoglobin [Entitic mass] (test code = 65586-4) mean corpuscular HGB conc (test 31.8 g/dL 31.5-36.2 code = mean corpuscular HGB conc) red cell distribution width (test 13.5 % 11.5-15.5 code = red cell distribution width) Platelets [#/volume] in Blood (test 282 K/uL 137-338 code = 83071-1) Platelet mean volume [Entitic 5.8 fL 8.4-11.8 L volume] in Blood (test code = 17353-0) Neutrophils.band form/100 64.4 % 44.4-80.1 leukocytes in Blood (test code = 89818-8) Lymphocytes/100 leukocytes in Body 24.8 % 10.0-50.0 fluid (test code = 82912-9) Monocytes/100 leukocytes in Blood 7.2 % 3.6-12.0 by Automated count (test code = 5905-5) Eosinophils/100 leukocytes in Blood 2.0 % 0.0-5.4 by Automated count (test code = 713-8) Basophils/100 leukocytes in 1.6 % 0.0-0.79 H Unspecified specimen (test code = 99641-9) [facility] CountyPT/[id number] 12:55:00 Test Item Value Reference Range Interpretation Comments prothrombin time (test code = 10.1 seconds 10.3-12.3 L prothrombin time) INR in Blood by Coagulation 0.92 assay (test code = 99544-5) [facility]partial thromboplastin [id number] 12:55:00 Test Item Value Reference Range Interpretation Comments INR in Blood by Coagulation 28.2 seconds 22.5-37.0 assay (test code = 04857-2) [facility] - Serum or [id number] 12:55:00 Test Item Value Reference Range Interpretation [...] code = calcium 10.0 mg/dL 8.6-10.0 level) [facility] CountyBasaint elizabeth [place] metabolic 2000 panel - Serum or [id number] 12:51:00 Test Item Value Reference Range Interpretation [...] code = calcium 9.8 mg/dL 8.6-10.0 level) [facility] CountyDfdiniwvgjcbcbdt0633-24-89 09:27:00 Test Item Value Reference Range Interpretation Comments Right (test code = Right) Type A Normal Left (test code = Left) Type A Normal [facility] CountyDadgswcgwpzopnth8852-25-35 09:27:00 Test Item Value Reference Range Interpretation Comments Right (test code = Right) Type A Normal Left (test code = Left) Type A Normal [facility] CountyUrinalysis complete W Reflex Culture panel - Urine 2018-08-06 07:50:00 Test Item Value Reference Range Interpretation Comments Color of Urine by Auto (test light yellow code = 13693-3) Appearance of Urine (test code clear clear = 5767-9) Glucose [Presence] in Urine by =2+ (150 negative H Automated test strip (test code = 26205-9) Bilirubin.total [Mass/volume] negative negative in Urine (test code = 1978-6) Ketones [Mass/volume] in Urine trace negative by Automated test strip (test code = 56479-6) Specific gravity of Urine by 1.010 1.003-1.030 Automated test strip (test code = 64720-5) blood urine (test code = blood negative negative urine) pH of Urine (test code = 5.000 5-9 2756-5) protein urine (UA) (test code = negative negative protein urine (UA)) Urobilinogen [Presence] in normal 0.2-1.0 Urine (test code = 14585-8) Nitrite [Presence] in Urine by negative negative Test strip (test code = 5802-4) Leukocyte esterase [Presence] negative negative in Urine by Automated test strip (test code = 81967-3) Erythrocytes [#/volume] in <1 0-5 Urine by Automated count (test code = 798-9) Leukocytes [#/area] in Urine <1 0-5 sediment by Automated count (test code = 94029-0) Epithelial cells [Presence] in =1-5 0-5 Urine sediment by Light microscopy (test code = 24784-1) Bacteria identified in Urine by none detected none detect Culture (test code = 630-4) Casts [#/area] in Urine none detected none detect sediment by Automated count (test code = 81064-6) urine culture added? (test code no = urine culture added?) [facility] W Auto Differential panel - [id number] 12:04:00 Test Item Value Reference Range Interpretation Comments white blood count (test code = 9.9 K/uL 4.0-11.5 white blood count) red blood count (test code = red 5.20 M/uL 3.80-5.20 blood count) Hemoglobin [Mass/volume] in Blood 15.4 g/dL 10.5-15.7 (test code = 718-7) hematocrit (test code = hematocrit) 46.4 % 34.0-50.0 Erythrocyte mean corpuscular volume 89.4 fL 78-98 [Entitic volume] (test code = 30388-4) Erythrocyte mean corpuscular 29.6 pg 26.2-33.4 hemoglobin [Entitic mass] (test code = 09401-2) mean corpuscular HGB conc (test 33.1 g/dL 31.5-36.2 code = mean corpuscular HGB conc) red cell distribution width (test 12.7 % 11.5-15.5 code = red cell distribution width) Platelets [#/volume] in Blood (test 242 K/uL 137-338 code = 09077-7) Platelet mean volume [Entitic 6.5 fL 8.4-11.8 L volume] in Blood (test code = 55149-4) Neutrophils.band form/100 59.1 % 44.4-80.1 leukocytes in Blood (test code = 31828-0) Lymphocytes/100 leukocytes in Body 31.3 % 10.0-50.0 fluid (test code = 87276-2) Monocytes/100 leukocytes in Blood 5.7 % 3.6-12.04 by Automated count (test code = 5905-5) Eosinophils/100 leukocytes in Blood 2.8 % 0.0-5.41 by Automated count (test code = 713-8) Basophils/100 leukocytes in Blood 1.2 % 0.0-0.79 H by Automated count (test code = 706-2) [facility] Countydifferential panel, [id number] 12:04:00 NeutrophilsBandLymphocyteAtypical LymphMonocyteEosinophilBasophilPlatelet EstimatePlatelet MorphologyHypochromasiaAnisocytosisMicrocytosisRouleMagnolia Regional Health CenterBasic metabolic 2000 panel - Serum or [id number] 12:04:00 Test Item Value Reference Range Interpretation [...] code = calcium 9.7 mg/dL 8.6-10.0 level) [facility] CountyPT/[id number] 12:04:00 Test Item Value Reference Range Interpretation Comments prothrombin time (test code = 9.9 seconds 10.3-12.3 L prothrombin time) INR in Blood by Coagulation assay 0.90 (test code = 80205-5) [facility] Countypartial thromboplastin [id number] 12:04:00 Test Item Value Reference Range Interpretation Comments INR in Blood by Coagulation 27.0 seconds 22.5-37.0 assay (test code = 75846-4) [facility] CountyXwmlnkpmoqnzjhar1400-71-77 10:00:34 Test Item Value Reference Range Interpretation Comments Right (test code = Right) Type A Normal Left (test code = Left) Type A Normal [facility] CountyBwcbwcslrwdsrnyf5314-18-75 10:00:34 Test Item Value Reference Range Interpretation Comments Right (test code = Right) Type A Normal Left (test code = Left) Type A Normal [facility] CountyTISSUE [id number] 08:52:00Surgical Pathology Report Case: [id number] Aut horizing Provider: Jag Escalera MD Collected: 11/30/2017 1025 Ordering Location: [facility] Received: 11/30/2017 1255 SERVICES Pathologist: Tony Vallejo MD Specimen: Kidney, Left PART A KIDNEY, LEFT, NEPHRECTOMY (1076 GRAMS):CHRONIC AND ACUTE PYELONEPHRITIS.NO EVIDENCE OF MALIGNANCYFOUR BENIGN LYMPH NODES 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 Signing Pathologist Direct Phone Line: [phone] signed by Tony Vallejo MD on 12/07/2017 [...] who concurs with a diagnosis of endosalpingiosis. 57964, 14076, 86272X4, 73442Qbmdcio of left kidney, chronic infection Left kidney [...] resection margins;A2, area of dense insertion; A3-A8, client support representative sections of area of dense adhesions at possible UPJ; A9-A16, client support representative sections of pelvis and caliceal system; A17-A18, client support representative sections of renal parenchyma; A19-A21, one bisected lymph node in each cut surface; A22-A28, one serially sectioned lymph node. DB/ewPerformed.The following special studies were performed on this case and the interpretation is incorporated in the diagnostic report above:BLOCK A20- CK7, CK20, PAX8, ER, KI-71GDJVZW22- CK7, CK20, PAX8, KI-67The immunohistochemistry test was developed and its performance characteristics determined by [facility], Pathology Laboratory. It has not been cleared [...] to perform high complexity clinical laboratory testing.BLOOD [id number] 06:00:00 Test Item Value Reference Range Interpretation Comments CULTURE (BEAKER) (test No growth in 5 days code = 1095) POCT-GLUCOSE [id number] 07:56:00 Test Item Value Reference Range Interpretation Comments POC-GLUCOSE METER 287 mg/dL 70-110 H TESTED AT [facility] 6720 (AKER) (test code = SY[place]EE [place] 1538) [address] BASIC METABOLIC [id number] 07:51:00 Test Item Value Reference Range Interpretation [...] PATIEN TS. CBC W/PLT COUNT & AUTO [id number] 05:57:00 Test Item Value Reference Range Interpretation [...] PERCENT (BEAKER) (test code = 2801) POCT-GLUCOSE [id number] 21:03:00 Test Item Value Reference Range Interpretation Comments POC-GLUCOSE METER 166 mg/dL 70-110 H TESTED AT [facility] 6720 (BEAKER) (test code = [facility] Justice [facility] 1538) [address] POCT-GLUCOSE [id number] 18:19:00 Test Item Value Reference Range Interpretation Comments POC-GLUCOSE METER 199 mg/dL 70-110 H TESTED AT [facility] 6720 (BEAKER) (test code = [facility] 1538) [address] POCT-GLUCOSE [id number] 12:08:00 Test Item Value Reference Range Interpretation Comments POC-GLUCOSE METER 160 mg/dL 70-110 H TESTED AT [place] [address] (BEAKER) (test code = [facility] 1538) [address] POCT-GLUCOSE [id number] 09:10:00 Test Item Value Reference Range Interpretation Comments POC-GLUCOSE METER 170 mg/dL 70-110 H TESTED AT [place] [address] (BEAKER) (test code = [facility] 1538) [address] BASIC METABOLIC [id number] 07:03:00 Test Item Value Reference Range Interpretation [...] PATIEN TS. CBC W/PLT COUNT & AUTO [id number] 06:26:00 Test Item Value Reference Range Interpretation [...] % 0-1 PERCENT (BEAKER) (test code = 2961) POCT-GLUCOSE [id number] 20:55:00 Test Item Value Reference Range Interpretation Comments POC-GLUCOSE METER 219 mg/dL 70-110 H TESTED AT [facility] 6720 (BEAKER) (test code = SY[place]EE [place] 1538) [address] BASIC METABOLIC [id number] 13:42:00 Test Item Value Reference Range Interpretation [...] APPLICABLE FOR DIALYSIS PATIEN TS. HEMOGLOBIN AND [id number] 13:15:00 Test Item Value Reference Range Interpretation Comments HEMOGLOBIN (BEAKER) (test code = 10.8 GM/DL 11.2-15.7 L 410) HEMATOCRIT (BEAKER) (test code = 34.0 % 34.1-44.9 L 411) URINE [id number] 10:10:00 Test Item Value Reference Range Interpretation Comments CULTURE (BEAKER) See comment A 70-79,000 c ol/mL (test code = 1095) Beronica a lbicans CALCIUM, [id number] 10:01:00 Test Item Value Reference Range Interpretation Comments CALCIUM IONIZED (BEAKER) (test 1.09 mmol/L 1.12-1.27 L code = 698) PH, BLOOD (BEAKER) (test code = 7.38 1810) BLOOD GAS, [id number] 10:01:00 Test Item Value Reference Range Interpretation [...] code = 1819) 100.0 % SODIUM NA-STAT [id number] 10:01:00 Test Item Value Reference Range Interpretation Comments SODIUM (BEAKER) (test code = 381) 134 meq/L 135-148 L GLUCOSE-STAT [id number] 10:01:00 Test Item Value Reference Range Interpretation Comments GLUCOSE RANDOM (BEAKER) (test code 192 mg/dL 70-110 H = 652) HGB/HCT (H&H) - STAT [id number] 10:01:00 Test Item Value Reference Range Interpretation Comments HEMOGLOBIN (BEAKER) (test code = 11.7 g/dL 12.0-15.0 L 410) HEMATOCRIT (BEAKER) (test code = 34.0 % 36.0-45.0 L 411) POTASSIUM-STAT [id number] 09:56:00 Test Item Value Reference Range Interpretation Comments POTASSIUM (BEAKER) (test code = 4.0 meq/L 3.6-5.5 379) LACTIC ACID, VENOUS, WHOLE [id number] 06:39:00 Test Item Value Reference Range Interpretation Comments LACTATE BLOOD VENOUS 0.7 mmol/L 0.5-2.2 Specime n slightly (2) (BEAKER) (test hemolyzed code = 2872) Effective 12/16/2015: Units/Reference Range ChangeNew: 0.5-2.2 mmol/L Previous: 5-20 mg/[id number] 06:36:00 Test Item Value Reference Range Interpretation Comments PHOSPHORUS (BEAKER) (test code = 3.7 mg/dL 2.3-4.7 604) [id number] 06:36:00 Test Item Value Reference Range Interpretation Comments MAGNESIUM (BEAKER) (test code = 1.6 mg/dL 1.6-2.6 627) BASIC METABOLIC [id number] 06:36:00 Test Item Value Reference Range Interpretation Comments SODIUM (BEAKER) 135 meq/L 136-145 L (test code = 381) POTASSIUM (BEAKER) 4.0 meq/L 3.5-5.1 (test code = 379) CHLORIDE (BEAKER) 102 meq/L 98-107 (test code = 382) CO2 (BEAKER) (test 22 meq/L 22-29 code = 355) BLOOD UREA NITROGEN 9 mg/dL 7-21 (BEAKER) (test code = 354) CREATININE (BEAKER) 0.95 mg/dL 0.57-1.25 (test code = 358) GLUCOSE RANDOM 181 mg/dL 70-105 H (BEAKER) (test code = 652) CALCIUM (BEAKER) 9.5 mg/dL 8.4-10.2 (test code = 697) EGFR (BEAKER) (test 61 mL/min/1.73 ESTIMA PIERRE GFR IS code = 1092) sq m NOT ACCURATE CREATININE CLEARANCE IN PREDICTING GLOMERULAR FILTRATION RATE . ESTIMATED GFR I S NOT APPLICABLE FOR DIALYSIS PATIEN TS. POCT-GLUCOSE [id number] 21:05:00 Test Item Value Reference Range Interpretation Comments POC-GLUCOSE METER 215 mg/dL 70-110 H TESTED AT [place] [address] ([email or web address]) (test code = [place] 1538) [address] POCT-GLUCOSE [id number] 17:48:00 Test Item Value Reference Range Interpretation Comments POC-GLUCOSE METER 150 mg/dL 70-110 H [facility] [place] [address] [facility] (test code = [place] 1538) [address] POCT-GLUCOSE [id number] 12:00:00 Test Item Value Reference Range Interpretation Comments POC-GLUCOSE METER 204 mg/dL 70-110 H TESTED AT [facility] 6720 ([email or web address]) (test code = [place] 1538) [address] URINE [id number] 08:15:00 Test Item Value Reference Range Interpretation Comments CULTURE (BEAKER) (test 40-49,000 col/mL skin code = 1095) mckenna POCT-GLUCOSE [id number] 07:41:00 Test Item Value Reference Range Interpretation Comments POC-GLUCOSE METER 154 mg/dL 70-110 H TESTED AT [facility] 6720 (BEAKER) (test code = [place] 1538) [address] [id number] 04:29:00 Test Item Value Reference Range Interpretation Comments PHOSPHORUS (BEAKER) (test code = 3.2 mg/dL 2.3-4.7 604) [id number] 04:29:00 Test Item Value Reference Range Interpretation Comments MAGNESIUM (BEAKER) (test code = 1.6 mg/dL 1.6-2.6 627) BASIC METABOLIC [id number] 04:29:00 Test Item Value Reference Range Interpretation [...] DIALYSIS PATIEN TS. LACTIC ACID, VENOUS, WHOLE [id number] 04:27:00 Test Item Value Reference Range Interpretation Comments LACTATE BLOOD VENOUS (2) (BEAKER) 0.7 mmol/L 0.5-2.2 (test code = 2872) Effective 12/16/2015: Units/Reference Range ChangeNew: 0.5-2.2 mmol/L Previous: 5-20 mg/dLCBC W/PLT COUNT & AUTO [id number] 04:11:00 Test Item Value Reference Range Interpretation [...] (test code = 416) BASOPHILS ABSOLUTE COUNT (TK) 0.03 K/ L 0.01-0.08 (test code = 417) IMMATURE GRANULOCYTES-RELATIVE 1 % 0-1 PERCENT (ARRON) (test code = 2801) POCT-GLUCOSE [id number] 22:31:00 Test Item Value Reference Range Interpretation Comments POC-GLUCOSE METER 206 mg/dL 70-110 H TESTED AT [facility] 6720 ([facility]) (test code = SYDNEE Rendon [facility] 1538) [address] POCT-GLUCOSE [id number] 17:31:00 Test Item Value Reference Range Interpretation Comments POC-GLUCOSE METER 207 mg/dL 70-110 H TESTED AT [facility] 6720 ([facility]) (test code = SYDNEE Rendon [facility] 1538) [address] ANG, NEPHROSTOMY, PERC, EXTERNAL [id number] 14:49:00Reason for exam:- >Needs left nephrostomy tube. [...] needle. The tract was dilated to 8 Turkmen. A small bore catheter was advanced into [...] Esquivel Verified Date/Time: 11/28/2017 14:49:28 Reading Location: [address] Body Reading Room 02:49 PMPOCT-GLUCOSE [id number] 11:01:00 Test Item Value Reference Range Interpretation Comments POC-GLUCOSE METER 195 mg/dL 70-110 H TESTED AT [facility] 6720 ([facility]) (test code = SY[place] 1538) [address] POCT-LACTIC ACID, [id number] 04:41:00 Test Item Value Reference Range Interpretation Comments POC-LACTIC ACID, 1.2 mmol/L 0.9-1.7 TESTED AT [facility] 6720 VENOUS ([facility]) (test SY[place]EE [place] code = 2805) [address] LEGIONELLA ANTIGEN, [id number] 04:06:00 Test Item Value Reference Range Interpretation Comments L. PNEUMOPHILA Negative - see Negative fo r L. SEROGP 1 UR AG comment pneumophila [facility] (test code serogrou p 1 antigen, = 1156) suggesting no r ecent or current infe ction with this serog roup. Legionellosis c annot be ruled out si nce other serogroup s and species may cau se disease. STREP PNEUMONIAE [id number] 04:04:00 Test Item Value Reference Range Interpretation Comments STREP PNEUMONIAE Presumptive negative Presumptive negative ANTIGEN ([facility] for pneumococcal for pneumococcal (test code = 1615) pneumonia - see pneumonia - see comment commen Presumptive negative for pneumococcal pneumonia, suggesting no current or recent pneumococcal infection. Infection due to S. pneumoniae cannot be ruled out since the antigen present in the sample may be below the detection limit of the test.PROTHROMBIN TIME/[id number] 02:58:00 Test Item Value Reference Range Interpretation Comments PROTIME (BEAKER) (test code = 14.1 seconds 11.7-14.7 759) INR ([facility]) (test code = 370) 1.1 <=5.9 RECOMMENDED COUMADIN/WARFARIN INR THERAPY RANGESSTANDARD DOSE: 2.0 - 3.0 Includes: PROPHYLAXIS forvenous thrombosis, systemic embolization; TREATMENT for venous thrombosis and/or pulmonary embolus.HIGH RISK: Target INR is 2.5-3.5 for patients with mechanical heart valves.[id number] 02:56:00 Test Item Value Reference Range Interpretation Comments PHOSPHORUS (BEAKER) (test code = 3.2 mg/dL 2.3-4.7 604) [id number] 02:56:00 Test Item Value Reference Range Interpretation Comments MAGNESIUM (BEAKER) (test code = 1.9 mg/dL 1.6-2.6 627) HEPATIC FUNCTION [id number] 02:56:00 Test Item Value Reference Range Interpretation [...] = 17 U/L 6-55 347) BASIC METABOLIC [id number] 02:30:00 Test Item Value Reference Range Interpretation [...] DIALYSIS PATIEN TS. LACTIC ACID, VENOUS, WHOLE [id number] 02:26:00 Test Item Value Reference Range Interpretation Comments LACTATE BLOOD VENOUS (2) (BEAKER) 1.3 mmol/L 0.5-2.2 (test code = 2872) Effective 12/16/2015: Units/Reference Range ChangeNew: 0.5-2.2 mmol/L Previous: 5-20 mg/dLCBC W/PLT COUNT & AUTO [id number] 02:17:00 Test Item Value Reference Range Interpretation [...] (BEAKER) (test code = 2801) POCT-LACTIC ACID, [id number] 02:01:00 Test Item Value Reference Range Interpretation Comments POC-LACTIC ACID, 2.9 mmol/L 0.9-1.7 H TESTED AT [facility] 6720 VENOUS (BEAKER) (test [facility] code = 2805) [address] CT, [id number] 00:55:00Addendum BeginsREPORT STATUS:A Addendum: Benign as well as neoplastic processes would be included in differential diagnosis for the left UPJ level obstruction. Results including the possibility of an infected obstructed left renal collecting system discussed with Dr. Singh. Signed: Kimberlyn Arellano MDReport Verified Date/Time: 11/28/2017 00:55:04 Reading Location: [address] Reading RoomAddendum EndsFINAL REPORT EXAMINATION: CT [...] Arellano MDReport Verified Date/Time:11/28/2017 00:48:48 Reading Location: [address] Reading Room URINALYSIS W/ [id number] 00:09:00 Test Item Value Reference Range Interpretation [...] (test code Urine, Clean Catch = 2795) BLOOD [id number] 17:00:00 Test Item Value Reference Range Interpretation Comments CULTURE (BEAKER) (test No growth in 5 days code = 1095) BLOOD [id number] 15:30:00 Test Item Value Reference Range Interpretation Comments CULTURE (BEAKER) A From Aerobi c Bottle (test code = Only Coagulase 1095) negative Staphylococcus GRAM STAIN From aerobic RESULT (BEAKER) bottle only: (test code = gram positive [...] required. This sample was tested at the [facility] Clinical Microbiology Laboratory using the SongtradrArray Blood Culture ID Panel.This test is FDA cleared for in vitro diagnostic use and has been verified and approved by the [facility] for clinical use. Reference Range: Not DetectedBLOOD [id number] 23:00:00 Test Item Value Reference Range Interpretation Comments CULTURE (BEAKER) (test No growth in 5 days code = 1095) MISCELLANEOUS LAB [id number] 14:42:00 Test Item Value Reference Range Interpretation Comments SCAN RESULT (test code = 6974316) Result comments: Coagulase Negative Staphylococcus Species (CoNS) [...] required. This sample was tested at the [facility] Clinical Microbiology Laboratory using the SongtradrArray Blood Culture ID Panel. This test is FDA cleared for in vitro diagnostic use and has been verified and approved by the [facility] Clinical Microbiology laboratory for clinical use. Reference Range: Not DetectedPOCT-GLUCOSE [id number] 13:10:00 Test Item Value Reference Range Interpretation Comments POC-GLUCOSE METER 196 mg/dL 70-110 H TESTED [facility] (test code = SY[place]EE Rend[place] 1538) [address] URINE [id number] 11:19:00 Test Item Value Reference Range Interpretation Comments CULTURE (BEAKER) (test A >100, 000 col/mL Beronica code = 1095) albicans <10,000 col/mL skin floraPOCT-GLUCOSE [id number] 07:50:00 Test Item Value Reference Range Interpretation Comments POC-GLUCOSE METER 190 mg/dL 70-110 H TESTED AT [facility] 67 ([facility]) (test code = SYDNEE Rendon [facility] 1538) [address] [id number] 06:18:00 Test Item Value Reference Range Interpretation Comments PHOSPHORUS (BEAKER) (test code = 3.3 mg/dL 2.3-4.7 604) [id number] 06:18:00 Test Item Value Reference Range Interpretation Comments MAGNESIUM (BEAKER) (test code = 1.4 mg/dL 1.6-2.6 L 627) BASIC METABOLIC [id number] 06:18:00 Test Item Value Reference Range Interpretation [...] PATIEN TS. CBC W/PLT COUNT & AUTO [id number] 06:01:00 Test Item Value Reference Range Interpretation [...] PERCENT (BEAKER) (test code = 2801) POCT-GLUCOSE [id number] 21:08:00 Test Item Value Reference Range Interpretation Comments POC-GLUCOSE METER 157 mg/dL 70-110 H TESTED AT [facility] 67 ([facility]) (test code = SYDNEE Rendon [facility] [place] 1538) [address] POCT-GLUCOSE [id number] 11:59:00 Test Item Value Reference Range Interpretation Comments POC-GLUCOSE METER 151 mg/dL 70-110 H TESTED AT [place] [address] ([facility]) (test code = SYDNEE Rendon [place] 1538) [address] CBC W/PLT COUNT & AUTO [id number] 11:31:00 Test Item Value Reference Range Interpretation [...] (DIFF) (BEAKER) 60 % (test code = 1359) LYMPHOCYTES - REL (DIFF) (BEAKER) 21 % [...] (BEAKER) (test code Normal = 762) POCT-GLUCOSE [id number] 07:43:00 Test Item Value Reference Range Interpretation Comments POC-GLUCOSE METER 151 mg/dL 70-110 H TESTED AT [facility] 6720 (BEAKER) (test code = [facility] Justice [place] 1538) [address] BASIC METABOLIC [id number] 06:24:00 Test Item Value Reference Range Interpretation [...] S NOT APPLICABLE FOR DIALYSIS PATIEN TS. [id number] 06:23:00 Test Item Value Reference Range Interpretation Comments PHOSPHORUS (BEAKER) (test code = 3.5 mg/dL 2.3-4.7 604) [id number] 06:23:00 Test Item Value Reference Range Interpretation Comments MAGNESIUM (BEAKER) (test code = 1.7 mg/dL 1.6-2.6 627) POCT-GLUCOSE [id number] 21:50:00 Test Item Value Reference Range Interpretation Comments POC-GLUCOSE METER 205 mg/dL 70-110 H TESTED AT [facility] 6720 (BEAKER) (test code = [facility] [place] 1538) [address] POCT-GLUCOSE [id number] 17:18:00 Test Item Value Reference Range Interpretation Comments POC-GLUCOSE METER 161 mg/dL 70-110 H TESTED AT [facility] 6720 (BEAKER) (test code = [facility] [place] 1538) [address] URINALYSIS W/ [id number] 13:16:00 Test Item Value Reference Range Interpretation [...] 516) SOURCE(BEAKER) (test code = Urine, Voided 8591) POCT-GLUCOSE [id number] 08:34:00 Test Item Value Reference Range Interpretation Comments POC-GLUCOSE METER 154 mg/dL 70-110 H TESTED AT [facility] 6720 (BEAKER) (test code = SYDNEE [place]ERE[place] 1538) [address] BASIC METABOLIC [id number] 07:34:00 Test Item Value Reference Range Interpretation [...] S NOT APPLICABLE FOR DIALYSIS PATIEN TS. [id number] 07:32:00 Test Item Value Reference Range Interpretation Comments PHOSPHORUS (BEAKER) (test code = 3.1 mg/dL 2.3-4.7 604) [id number] 07:32:00 Test Item Value Reference Range Interpretation Comments MAGNESIUM (BEAKER) (test code = 1.6 mg/dL 1.6-2.6 627) CBC W/PLT COUNT & AUTO [id number] 05:48:00 Test Item Value Reference Range Interpretation [...] PERCENT (BEAKER) (test code = 2801) POCT-GLUCOSE [id number] 22:24:00 Test Item Value Reference Range Interpretation Comments POC-GLUCOSE METER 119 mg/dL 70-110 H TESTED AT [place] [address] ([facility]) (test code = [facility] 1538) [address] POCT-GLUCOSE [id number] 17:09:00 Test Item Value Reference Range Interpretation Comments POC-GLUCOSE METER 110 mg/dL 70-110 TESTED AT [place] [address] ([facility]) (test code = [facility] 1538) [address] BLOOD [id number] 17:00:00 Test Item Value Reference Range Interpretation Comments CULTURE (BEAKER) (test No growth in 5 days code = 1095) BLOOD [id number] 17:00:00 Test Item Value Reference Range Interpretation Comments CULTURE (BEAKER) (test No growth in 5 days code = 1095) POCT-GLUCOSE [id number] 11:34:00 Test Item Value Reference Range Interpretation Comments POC-GLUCOSE METER 202 mg/dL 70-110 H TESTED AT [place] [address] ([facility]) (test code = [facility] 1538) [address] POCT-GLUCOSE [id number] 07:55:00 Test Item Value Reference Range Interpretation Comments POC-GLUCOSE METER 147 mg/dL 70-110 H TESTED AT [place] [address] ([facility]) (test code = [facility] 1530) [address] BASIC METABOLIC [id number] 05:37:00 Test Item Value Reference Range Interpretation [...] S NOT APPLICABLE FOR DIALYSIS PATIEN TS. [id number] 05:35:00 Test Item Value Reference Range Interpretation Comments PHOSPHORUS (BEAKER) (test code = 2.8 mg/dL 2.3-4.7 604) [id number] 05:35:00 Test Item Value Reference Range Interpretation Comments MAGNESIUM (BEAKER) (test code = 1.6 mg/dL 1.6-2.6 627) CBC W/PLT COUNT & AUTO [id number] 05:12:00 Test Item Value Reference Range Interpretation [...] PERCENT (BEAKER) (test code = 2801) POCT-GLUCOSE [id number] 22:02:00 Test Item Value Reference Range Interpretation Comments POC-GLUCOSE METER 107 mg/dL 70-110 TESTED AT [facility] 6720 (BEAKER) (test code = SYDNEE [place]RE 1538) [address] CT, [id number] 20:36:00FINAL REPORT CT of the abdomen and [...] urinoma. Otherwise no significant change. Signed: Casey Bowerseport Verified Date/Time: 06/22/2017 20:36:43 Reading Location: [address] Consult Reading Room POCT-GLUCOSE [id number] 16:27:00 Test Item Value Reference Range Interpretation Comments POC-GLUCOSE METER 136 mg/dL 70-110 H TESTED AT [place] [address] ([facility]) (test code = SYDNEE Rendon [facility] 1538) [address] POCT-GLUCOSE [id number] 12:07:00 Test Item Value Reference Range Interpretation Comments POC-GLUCOSE METER 150 mg/dL 70-110 H TESTED AT [facility] 6720 ([facility]) (test code = SYDNEE Rendon [facility] 1538) [address] POCT-GLUCOSE [id number] 07:45:00 Test Item Value Reference Range Interpretation Comments POC-GLUCOSE METER 201 mg/dL 70-110 H TESTED AT [facility] 6720 (BEAKER) (test code = SYDNEE [place] 1537) [address] BASIC METABOLIC [id number] 05:21:00 Test Item Value Reference Range Interpretation [...] S NOT APPLICABLE FOR DIALYSIS PATIEN TS. [id number] 05:09:00 Test Item Value Reference Range Interpretation Comments MAGNESIUM (BEAKER) 1.5 mg/dL 1.6-2.6 L Specimen slightly (test code = 627) hemolyzed [id number] 05:09:00 Test Item Value Reference Range Interpretation Comments PHOSPHORUS (BEAKER) 2.8 mg/dL 2.3-4.7 Specimen slightly (test code = 604) hemolyzed CBC W/PLT COUNT & AUTO [id number] 04:32:00 Test Item Value Reference Range Interpretation [...] PERCENT (BEAKER) (test code = 2801) POCT-GLUCOSE [id number] 21:34:00 Test Item Value Reference Range Interpretation Comments POC-GLUCOSE METER 104 mg/dL 70-110 TESTED AT [facility] 6720 ([facility]) (test code = SYDNEE [place] 1538) [address]656 POCT-GLUCOSE [id number] 17:16:00 Test Item Value Reference Range Interpretation Comments POC-GLUCOSE METER 262 mg/dL 70-110 H TESTED AT [place] [address] ([facility]) (test code = SYDNEE Rendon [facility] 1538) [address] URINE [id number] 11:56:00 Test Item Value Reference Range Interpretation Comments CULTURE (BEAKER) (test A 50-59 ,000 col/mL Beroinca code = 1095) glabrata 10-19,000 col/ml skin floraPOCT-GLUCOSE [id number] 11:29:00 Test Item Value Reference Range Interpretation Comments POC-GLUCOSE METER 148 mg/dL 70-110 H TESTED AT [place] [address] ([facility]) (test code = SYDNEE Rendon [facility] 1538) [address]15 POCT-GLUCOSE [id number] 08:58:00 Test Item Value Reference Range Interpretation Comments POC-GLUCOSE METER 141 mg/dL 70-110 H TESTED AT [place] [address] ([facility]) (test code = SYDNEE Rendon [facility] 1538) [address] BASIC METABOLIC [id number] 05:45:00 Test Item Value Reference Range Interpretation [...] S NOT APPLICABLE FOR DIALYSIS PATIEN TS. [id number] 05:30:00 Test Item Value Reference Range Interpretation Comments PHOSPHORUS (BEAKER) (test code = 2.8 mg/dL 2.3-4.7 604) [id number] 05:30:00 Test Item Value Reference Range Interpretation Comments MAGNESIUM (BEAKER) (test code = 1.6 mg/dL 1.6-2.6 627) CBC W/PLT COUNT & AUTO [id number] 05:07:00 Test Item Value Reference Range Interpretation [...] PERCENT (BEAKER) (test code = 2801) POCT-GLUCOSE [id number] 21:04:00 Test Item Value Reference Range Interpretation Comments POC-GLUCOSE METER 139 mg/dL 70-110 H TESTED AT [facility] 6720 (BEAKER) (test code = [facility] 1538) 287[address] POCT-GLUCOSE [id number] 17:13:00 Test Item Value Reference Range Interpretation Comments POC-GLUCOSE METER 127 mg/dL 70-110 H TESTED AT [facility] 6720 (BEAKER) (test code = [facility] 1538) [address] POCT-GLUCOSE [id number] 11:25:00 Test Item Value Reference Range Interpretation Comments POC-GLUCOSE METER 124 mg/dL 70-110 H TESTED AT [facility] 67 (BEAKER) (test code = [facility] 1538) 13014 POCT-GLUCOSE [id number] 07:28:00 Test Item Value Reference Range Interpretation Comments POC-GLUCOSE METER 137 mg/dL 70-110 H TESTED AT [facility] 6720 (BEAKER) (test code = [facility] 1538) [address] [id number] 06:43:00 Test Item Value Reference Range Interpretation Comments PHOSPHORUS (BEAKER) (test code = 2.9 mg/dL 2.3-4.7 604) [id number] 06:43:00 Test Item Value Reference Range Interpretation Comments MAGNESIUM (BEAKER) (test code = 1.6 mg/dL 1.6-2.6 627) BASIC METABOLIC [id number] 06:43:00 Test Item Value Reference Range Interpretation [...] PATIEN TS. CBC W/PLT COUNT & AUTO [id number] 05:55:00 Test Item Value Reference Range Interpretation [...] EOSINOPHILS ABSOLUTE COUNT 0.26 K/ L 0.04-0.36 (BEAKER) (test code = 416) BASOPHILS ABSOLUTE COUNT (BEAKER) 0.03 K/ L 0.01-0.08 (test code = 417) IMMATURE GRANULOCYTES-RELATIVE 1 % 0-1 PERCENT (BEAKER) (test code = 2801) POCT-GLUCOSE [id number] 21:37:00 Test Item Value Reference Range Interpretation Comments POC-GLUCOSE METER 143 mg/dL 70-110 H TESTED AT [place] [address] ([facility]) (test code = [facility] 1538) 887[address] POCT-GLUCOSE [id number] 18:04:00 Test Item Value Reference Range Interpretation Comments POC-GLUCOSE METER 143 mg/dL 70-110 H TESTED AT [place] [address] ([facility]) (test code = [facility] 1538) [address]120 VANCOMYCIN LEVEL, [id number] 15:00:00 Test Item Value Reference Range Interpretation Comments VANCOMYCIN TROUGH (BEAKER) (test 9.0 ug/mL 10.0-20.0 L code = 522) Please hold next vanc dose until vanc trough results.TISSUE [id number] 14:20:00Surgical Pathology Report Case: [id number] Authorizing Provider: Jag Escalera MD Collected: 06/13/2017 1615 Ordering Location: [facility] Received: 06/14/2017 0753 SERVICES Pathologist: Aquilino Diaz MD Specimen: SoftTissue, Other, right upj segment RENAL PELVIS, RIGHT U RETEROPELVIC JUNCTION, BIOPSY:- HAPHAZARD ARRANGEMENT OF SMOOTH MUSCLE BUNDLES WITH JENNIFER-MUSCULAR FIBROSIS, CONSISTENT WITH URETEROPELVIC JUNCTION OBSTRUCTION- NEGATIVE FOR DYSPLASIA OR MALIGNANCYSigning Pathologist Direct Phone Line: [phone] signed by Aquilino Diaz MD on 06/19/2017 at 2:20 [id number] obstructionRight UPJ segmentReceived fresh labeled "right UPJ segment" are two irregular pink-camacho to mary-white rubbery fragments of soft tissue measuring 1.5 x1.0 x 0.2 cm in aggregate. Sectioning reveals no discrete masses. The specimen is entirely submittedin cassette A1. DB/plPerformed.POCT- GLUCOSE [id number] 13:48:00 Test Item Value Reference Range Interpretation Comments POC-GLUCOSE METER 156 mg/dL 70-110 H TESTED AT [place] [address] ([facility]) (test code = SYDNEE Rendon [facility] 1538) [address] RAD, CHEST, 2 [id number] 10:31:00Reason for exam:->feverFINAL REPORT Chest x-ray, PA [...] Verified Date/Time: 06/19/2017 10:31:11 Re ading Location: [facility] Radiology Reading Room POCT-GLUCOSE [id number] 07:32:00 Test Item Value Reference Range Interpretation Comments POC-GLUCOSE METER 163 mg/dL 70-110 H TESTED AT [facility] 67 ([facility]) (test code = SYDNEE Rendon [facility] 1538) 24[address] [id number] 06:28:00 Test Item Value Reference Range Interpretation Comments PHOSPHORUS ([facility]) (test code = 4.0 mg/dL 2.3-4.7 604) [id number] 06:28:00 Test Item Value Reference Range Interpretation Comments MAGNESIUM (BEAKER) (test code = 1.9 mg/dL 1.6-2.6 627) BASIC METABOLIC [id number] 06:28:00 Test Item Value Reference Range Interpretation [...] PATIEN TS. CBC W/PLT COUNT & AUTO [id number] 06:27:00 Test Item Value Reference Range Interpretation [...] PERCENT (BEAKER) (test code = 2801) POCT-GLUCOSE [id number] 21:24:00 Test Item Value Reference Range Interpretation Comments POC-GLUCOSE METER 172 mg/dL 70-110 H TESTED AT [place] [address] ([facility]) (test code = SYDNEE Rendon [facility] 1538) [address]774 POCT-GLUCOSE [id number] 17:00:00 Test Item Value Reference Range Interpretation Comments POC-GLUCOSE METER 164 mg/dL 70-110 H TESTED AT [place] [address] ([facility]) (test code = SYDNEE Rendon [facility] 1538) [address]62 POCT-GLUCOSE [id number] 13:16:00 Test Item Value Reference Range Interpretation Comments POC-GLUCOSE METER 168 mg/dL 70-110 H TESTED AT [place] [address] ([facility]) (test code = SYDNEE [place] 1538) [address] POCT-GLUCOSE [id number] 07:26:00 Test Item Value Reference Range Interpretation Comments POC-GLUCOSE METER 164 mg/dL 70-110 H TESTED AT [facility] 6720 (BEAKER) (test code = SYDNEE [place] 1538) [address] BASIC METABOLIC [id number] 05:05:00 Test Item Value Reference Range Interpretation [...] S NOT APPLICABLE FOR DIALYSIS PATIEN TS. [id number] 05:04:00 Test Item Value Reference Range Interpretation Comments PHOSPHORUS (BEAKER) (test code = 4.8 mg/dL 2.3-4.7 H 604) [id number] 05:04:00 Test Item Value Reference Range Interpretation Comments MAGNESIUM (BEAKER) (test code = 1.6 mg/dL 1.6-2.6 627) CBC W/PLT COUNT & AUTO [id number] 03:57:00 Test Item Value Reference Range Interpretation [...] PERCENT (BEAKER) (test code = 2801) CT, [id number] 20:27:00Reason for exam:->flank pain s/p pyeloplasty FINAL [...] Stable left hydronephrosis. Signed: JR Ambrosio Robert [facility] Verified Date/Time: 06/17/2017 20:27:27 Reading Location: [address] Reading Room CBC (HEMOGRAM ONLY)2017-06-17 20:19:00 [...] 150-430 (test code = 756) BASIC METABOLIC [id number] 20:18:00 Test Item Value Reference Range Interpretation [...] NOT APPLICABLE FOR DIALYSIS PATIEN TS. POCT-GLUCOSE [id number] 12:06:00 Test Item Value Reference Range Interpretation Comments POC-GLUCOSE METER 160 mg/dL 70-110 H TESTED AT [facility] 6720 (BEAKER) (test code = [place]A [place] 1538) [address] POCT-GLUCOSE [id number] 07:33:00 Test Item Value Reference Range Interpretation Comments POC-GLUCOSE METER 246 mg/dL 70-110 H TESTED AT [place] [address] (BEAKER) (test code = SYDNEE Rendon [facility] 1538) 115[address] POCT-GLUCOSE [id number] 22:02:00 Test Item Value Reference Range Interpretation Comments POC-GLUCOSE METER 206 mg/dL 70-110 H TESTED AT [place] [address] (BEAKER) (test code = SYDNEE Rendon [facility] 1538) 32170 POCT-GLUCOSE [id number] 17:55:00 Test Item Value Reference Range Interpretation Comments POC-GLUCOSE METER 265 mg/dL 70-110 H TESTED AT [place] [address] (BEAKER) (test [facility] = [facility] 1538) [address]84 POCT-GLUCOSE [id number] 08:39:00 Test Item Value Reference Range Interpretation Comments POC-GLUCOSE METER 189 mg/dL 70-110 H TESTED AT [place] [address] ([facility]) (test code = SYDNEE Rendon [facility] 1538) 9[address] POCT-GLUCOSE [id number] 07:44:00 Test Item Value Reference Range Interpretation Comments POC-GLUCOSE METER 173 mg/dL 70-110 H TESTED AT [place] [address] (BEAKER) (test code = [facility] Justice [facility] 1538) [address] BASIC METABOLIC [id number] 06:49:00 Test Item Value Reference Range Interpretation [...] APPLICABLE FOR DIALYSIS PATIEN TS. HEMOGLOBIN AND [id number] 06:28:00 Test Item Value Reference Range Interpretation Comments HEMOGLOBIN (BEAKER) (test code = 12.3 GM/DL 11.2-15.7 410) HEMATOCRIT (BEAKER) (test code = 38.8 % 34.1-44.9 411) BASIC METABOLIC [id number] 11:05:00 Test Item Value Reference Range Interpretation [...] APPLICABLE FOR DIALYSIS PATIEN TS. HEMOGLOBIN AND [id number] 10:48:00 Test Item Value Reference Range Interpretation Comments HEMOGLOBIN (BEAKER) (test code = 13.4 GM/DL 11.2-15.7 410) HEMATOCRIT (BEAKER) (test code = 41.7 % 34.1-44.9 411) POCT-GLUCOSE [id number] 10:25:00 Test Item Value Reference Range Interpretation Comments POC-GLUCOSE METER 216 mg/dL 70-110 H TESTED AT [facility] 6720 (BEAKER) (test code = SYDNEE [place] 1538) [address]167 TISSUE [id number] 12:11:00Surgical Pathology Report Case: [id number] Authorizing Provider: Susan Ivory MD Collected: 05/02/2017 1147 Ordering Location: [facility] Endoscopy Received: 05/02/2017 1533 Services Pathologist: Tung Connor MD Specimens: A) - Polyp, Colon - Right/Ascending B) -Polyp, Colon - Rectum A. COLON, RIGHT/ASCEN DING POLYP, BIOPSY: - FRAGMENT OF TUBULAR ADENOMA (x1) - SEPARATE FRAGMENTS OF UNREMARKABLE COLONIC MUCOSAB. RECTUM, POLYP, BIOPSY: - FRAGMENTS OF HYPERPLASTIC POLYP (x3) Signing PathologistDirect Phone Line: [phone] signed by Tung Connor MD on 05/03/2017 at 12:11 [id number], large intestine without perforation or abscess without [...] camacho tissue, submitted B1. CG/pl Performed.URINALYSIS W/ [id number] 14:08:00 Test Item Value Reference Range Interpretation [...] SOURCE(BEAKER) (test code = 2795) BASIC METABOLIC [id number] 12:36:00 Test Item Value Reference Range Interpretation [...] S NOT APPLICABLE FOR DIALYSIS PATIEN TS. [id number] 11:58:00 Test Item Value Reference Range Interpretation Comments PARTIAL THROMBOPLASTIN TIME 35.7 seconds 22.5-36.0 (BEAKER) (test code = 760) PROTHROMBIN [id number] 11:57:00 Test Item Value Reference Range Interpretation [...] 417) IMMATURE GRANULOCYTES-RELATIVE 1 % 0-1 PERCENT ([facility]) (test code = 2801) POCT-GLUCOSE [id number] 17:46:00 Test Item Value Reference Range Interpretation Comments POC-GLUCOSE METER 201 mg/dL 70-110 H TESTED AT [place] [address] ([facility]) (test code = SYDNEE Rendon [place] 1538) 8[address] POCT-GLUCOSE [id number] 14:15:00 Test Item Value Reference Range Interpretation Comments POC-GLUCOSE METER 152 mg/dL 70-110 H TESTED AT [place] [address] ([facility]) (test code = SYDNEE Rendon [place] 1538) [address]323 POCT-GLUCOSE [id number] 08:21:00 Test Item Value Reference Range Interpretation Comments POC-GLUCOSE METER 149 mg/dL 70-110 H TESTED AT [place] [address] ([facility]) (test code = SYDNEE Rendon [place] 1538) [address] POCT-GLUCOSE [id number] 21:11:00 Test Item Value Reference Range Interpretation Comments POC-GLUCOSE METER 201 mg/dL 70-110 H TESTED AT [place] [address] ([facility]) (test code = SYDNEE Rendon [place] 1538) 7[address] POCT-GLUCOSE [id number] 18:48:00 Test Item Value Reference Range Interpretation Comments POC-GLUCOSE METER 188 mg/dL 70-110 H TESTED AT [place] [address] ([facility]) (test code = SYDNEE Rendon [place] 1538) 9[address]50 POCT-GLUCOSE [id number] 13:32:00 Test Item Value Reference Range Interpretation Comments POC-GLUCOSE METER 151 mg/dL 70-110 H TESTED AT [place] [address] ([facility]) (test code = SYDNEE Rendon [place] 1538) [address]379 POCT-GLUCOSE [id number] 08:31:00 Test Item Value Reference Range Interpretation Comments POC-GLUCOSE METER 149 mg/dL 70-110 H TESTED AT [place] [address] ([facility]) (test code = SYDNEE Rendon [place] 1538) [address] BASIC METABOLIC [id number] 07:11:00 Test Item Value Reference Range Interpretation Comments SODIUM ([facility]) 138 meq/L 136-145 (test code = 381) POTASSIUM ([facility]) 3.5 meq/L 3.5-5.1 (test code = 379) CHLORIDE (BEAKER) 103 meq/L 98-107 (test code = 382) CO2 (BEAKER) (test 24 meq/L 22-29 code = 355) BLOOD UREA NITROGEN 8 mg/dL 7-21 (BEAKER) (test code = 354) CREATININE (BEAKER) 0.90 mg/dL 0.57-1.25 (test code = 358) GLUCOSE RANDOM 153 mg/dL 70-105 H (BEAKER) (test code = 652) CALCIUM (BEAKER) 9.7 mg/dL 8.4-10.2 (test code = 697) EGFR (BEAKER) (test 65 mL/min/1.73 ESTIMA PIERRE GFR IS code = 1092) sq m NOT ACCURATE CREATININE CLEARANCE IN PREDICTING GLOMERULAR FILTRATION RATE . ESTIMATED GFR I S NOT APPLICABLE FOR DIALYSIS PATIEN TS. CBC W/PLT COUNT & AUTO [id number] 06:53:00 Test Item Value Reference Range Interpretation [...] PERCENT (BEAKER) (test code = 2801) POCT-GLUCOSE [id number] 21:07:00 Test Item Value Reference Range Interpretation Comments POC-GLUCOSE METER 224 mg/dL 70-110 H TESTED AT [place] [address] ([facility]) (test code = SYDNEE Renodn [facility] 1538) 08371 POCT-GLUCOSE [id number] 17:14:00 Test Item Value Reference Range Interpretation Comments POC-GLUCOSE METER 121 mg/dL 70-110 H TESTED AT [place] [address] (BEAKER) (test code = SYDNEE Rendon [facility] 1538) 99272 POCT-GLUCOSE [id number] 11:03:00 Test Item Value Reference Range Interpretation Comments POC-GLUCOSE METER 161 mg/dL 70-110 H TESTED AT [place] [id number] (BEAKER) (test code = SYDNEE Rendon [facility] 1538) 80426 POCT-GLUCOSE [id number] 07:24:00 Test Item Value Reference Range Interpretation Comments POC-GLUCOSE METER 191 mg/dL 70-110 H TESTED AT [place] [id number] (BEAKER) (test code = SYDNEE Rendon [facility] 1538) 59552 BASIC METABOLIC [id number] 04:45:00 Test Item Value Reference Range Interpretation [...] NOT APPLICABLE FOR DIALYSIS PATIEN TS. POCT-GLUCOSE [id number] 21:03:00 Test Item Value Reference Range Interpretation Comments POC-GLUCOSE METER 164 mg/dL 70-110 H TESTED AT [facility] 6720 (BEAKER) (test code = SYDNEE Rendon [place] 1538) [address]69 BLOOD [id number] 18:00:00 Test Item Value Reference Range Interpretation Comments CULTURE (BEAKER) (test No growth in 5 days code = 1095) BLOOD [id number] 18:00:00 Test Item Value Reference Range Interpretation Comments CULTURE (BEAKER) (test No growth in 5 days code = 1095) POCT-GLUCOSE [id number] 17:18:00 Test Item Value Reference Range Interpretation Comments POC-GLUCOSE METER 154 mg/dL 70-110 H TESTED AT [facility] (BEAKER) (test code = SYDNEE Rend[place] 1538) [id number] POCT-GLUCOSE [id number] 11:29:00 Test Item Value Reference Range Interpretation Comments POC-GLUCOSE METER 117 mg/dL 70-110 H TESTED AT [facility] (BEAKER) (test code = SYDNEE Rend[place] 1538) [id number] URINE [id number] 09:54:00 Test Item Value Reference Range Interpretation Comments CULTURE (BEAKER) (test code = 1095) No growth POCT-GLUCOSE [id number] 07:34:00 Test Item Value Reference Range Interpretation Comments POC-GLUCOSE METER 120 mg/dL 70-110 H TESTED AT [facility] (BEAKER) (test code = [place]EE [place] 1538) [address] BASIC METABOLIC [id number] 05:18:00 Test Item Value Reference Range Interpretation [...] PATIEN TS. CBC W/PLT COUNT & AUTO [id number] 04:59:00 Test Item Value Reference Range Interpretation [...] PERCENT (BEAKER) (test code = 2801) POCT-GLUCOSE [id number] 21:33:00 Test Item Value Reference Range Interpretation Comments POC-GLUCOSE METER 114 mg/dL 70-110 H TESTED AT [place] [address] ([facility]) (test code = SYDNEE Rend[place] 1538) [address] POCT-GLUCOSE [id number] 17:43:00 Test Item Value Reference Range Interpretation Comments POC-GLUCOSE METER 177 mg/dL 70-110 H TESTED AT [place] [address] ([facility]) (test code = SYDNEE Rend[place] 1538) [address] POCT-GLUCOSE [id number] 11:19:00 Test Item Value Reference Range Interpretation Comments POC-GLUCOSE METER 183 mg/dL 70-110 H TESTED AT [facility] 6720 (BEAKER) (test code = SYDNEE Rend[place] 1538) [address] POCT-GLUCOSE [id number] 07:56:00 Test Item Value Reference Range Interpretation Comments POC-GLUCOSE METER 131 mg/dL 70-110 H TESTED AT [facility]20 (BEAKER) (test code = SYDNEE Rendon [facility] 1538) [address] BASIC METABOLIC [id number] 07:52:00 Test Item Value Reference Range Interpretation [...] PATIEN TS. CBC W/PLT COUNT & AUTO [id number] 06:52:00 Test Item Value Reference Range Interpretation [...] L 0.00-0.20 (test code = 417) 0.00POCT-GLUCOSE [id number] 21:16:00 Test Item Value Reference Range Interpretation Comments POC-GLUCOSE METER 141 mg/dL 70-110 H TESTED AT [facility] (BEAKER) (test code = SYDNEE [place] 1538) [address] POCT-GLUCOSE [id number] 17:41:00 Test Item Value Reference Range Interpretation Comments POC-GLUCOSE METER 154 mg/dL 70-110 H TESTED AT [facility] 67[facility] (BEAKER) (test code = SYDNEE [place] 1538) [address] URINALYSIS W/ [id number] 15:10:00 Test Item Value Reference Range Interpretation [...] code Urine, Clean Catch = 2795) POCT-GLUCOSE [id number] 12:04:00 Test Item Value Reference Range Interpretation Comments POC-GLUCOSE METER 171 mg/dL 70-110 H TESTED AT [place] [address] (BEAKER) (test code = [facility] 1538) [address] URINE [id number] 10:02:00 Test Item Value Reference Range Interpretation Comments CULTURE (BEAKER) (test code = 1095) No growth POCT-GLUCOSE [id number] 08:15:00 Test Item Value Reference Range Interpretation Comments POC-GLUCOSE METER 118 mg/dL 70-110 H TESTED AT [place] [address] (BEAKER) (test code = [facility] 1538) [address] BASIC METABOLIC [id number] 05:04:00 Test Item Value Reference Range Interpretation [...] PATIEN TS. CBC W/PLT COUNT & AUTO [id number] 04:57:00 Test Item Value Reference Range Interpretation [...] L 0.00-0.20 (test code = 417) 0.00POCT-GLUCOSE [id number] 21:51:00 Test Item Value Reference Range Interpretation Comments POC-GLUCOSE METER 159 mg/dL 70-110 H TESTED AT [facility] (BEAKER) (test code = [facility] 1538) [address] RAPID DRUG SCREEN, [id number] 21:21:00 Test Item Value Reference Range Interpretation [...] situations. Chain of custody not maintained. Some oymf-wrh-ivgyhkp medications, as well as adulterants, may cause inaccurate results. Clinical correlation should be applied. A more comprehensive drug screen or confirmation of a detected drug may be performed upon request.POCT-GLUCOSE [id number] 14:21:00 Test Item Value Reference Range Interpretation Comments POC-GLUCOSE METER 113 mg/dL 70-110 H TESTED AT [place] [address] ([facility]) (test code = [facility] 1538) [address] [id number] 10:15:00 Test Item Value Reference Range Interpretation Comments RPR SCREEN ([facility]) (test code = Nonreactive Nonreactive 420) URINE [id number] 09:21:00 Test Item Value Reference Range Interpretation Comments CULTURE ([facility]) (test >100,000 col/mL skin code = 1095) mckenna POCT-GLUCOSE [id number] 08:00:00 Test Item Value Reference Range Interpretation Comments POC-GLUCOSE METER 128 mg/dL 70-110 H TESTED AT [place] [address] ([facility]) (test code = [facility] 1538) [address] CBC (HEMOGRAM ONLY)2017-03-04 07:25:00 Test Item Value Reference Range Interpretation Comments WHITE BLOOD CELL COUNT (AKER) 13.9 K/ L 4.0-10.0 H (test code = 775) RED BLOOD CELL COUNT ([facility]) 4.28 M/ L 4.00-5.00 (test code = 761) HEMOGLOBIN (BEAKER) (test code = 12.1 GM/DL 12.0-15.0 410) HEMATOCRIT (AKER) (test code = 37.9 % 36.0-45.0 411) MEAN CORPUSCULAR VOLUME (BEAKER) 88.6 fL 82.0-99.0 (test code = 753) MEAN CORPUSCULAR HEMOGLOBIN 28.2 pg 27.0-33.0 (BEAKER) (test code = 751) MEAN CORPUSCULAR HEMOGLOBIN CONC 31.8 GM/DL 32.0-36.0 L (BEAKER) (test code = 752) RED CELL DISTRIBUTION WIDTH 12.7 % 10.3-14.2 (AKER) (test code = 412) PLATELET COUNT (BEAKER) (test 343 K/CU MM 150-430 code = 756) MEAN PLATELET VOLUME (BEAKER) 6.0 fL 6.5-10.5 L (test code = 754) NUCLEATED RED BLOOD CELLS 0 /100 WBC 0-0 (BEAKER) (test code = 413) 0.00BASIC METABOLIC [id number] 07:02:00 Test Item Value Reference Range Interpretation [...] NOT APPLICABLE FOR DIALYSIS PATIEN TS. POCT-GLUCOSE [id number] 21:33:00 Test Item Value Reference Range Interpretation Comments POC-GLUCOSE METER 163 mg/dL 70-110 H TESTED AT [facility] (BEAKER) (test code = GILBERTOHA Rendon [facility] 1538) [address] URINALYSIS W/ [id number] 18:19:00 Test Item Value Reference Range Interpretation [...] 520) SOURCE(BEAKER) (test code Urine, Straight = 2453) Catheter POCT-GLUCOSE [id number] 16:40:00 Test Item Value Reference Range Interpretation Comments POC-GLUCOSE METER 120 mg/dL 70-110 H TESTED AT [facility] (BEAKER) (test code = SYDNEE Rendon [facility] 1538) [address] HEPATITIS PANEL, [id number] 10:25:00 Test Item Value Reference Range Interpretation Comments HEPATITIS A IGM ANTIBODY (BEAKER) Nonreactive Nonreactive (test code = 498) HEPATITIS B CORE IGM ANTIBODY Nonreactive Nonreactive (BEAKER) (test code = 645) HEPATITIS C ANTIBODY (BEAKER) Nonreactive Nonreactive (test code = 367) HEPATITIS B SURFACE ANTIGEN (2) Nonreactive Nonreactive (BEAKER) (test code = 2585) HIV-1 ANTIGEN WITH HIV-1/2 [id number] 10:25:00 Test Item Value Reference Range Interpretation Comments HIV-1 ANTIGEN WITH HIV 1\\T\\2 Nonreactive Nonreactive ANTIBODY (2) (BEAKER) (test code = 2586) BASIC METABOLIC [id number] 10:05:00 Test Item Value Reference Range Interpretation [...] PATIEN TS. CBC W/PLT COUNT & AUTO [id number] 09:58:00 Test Item Value Reference Range Interpretation [...] L 0.00-0.20 (test code = 417) 0.00POCT-GLUCOSE [id number] 08:28:00 Test Item Value Reference Range Interpretation Comments POC-GLUCOSE METER 134 mg/dL 70-110 H TESTED AT [place] [address] ([facility]) (test code = [facility] 1538) [address] POCT-GLUCOSE [id number] 21:33:00 Test Item Value Reference Range Interpretation Comments POC-GLUCOSE METER 142 mg/dL 70-110 H TESTED AT [place] [address] ([facility]) (test code = [facility] 1538) [address] URINALYSIS W/ [id number] 13:59:00 Test Item Value Reference Range Interpretation [...] SOURCE(BEAKER) (test code = 2795) COMPREHENSIVE METABOLIC [id number] 12:59:00 Test Item Value Reference Range Interpretation [...] S NOT APPLICABLE FOR DIALYSIS PATIEN TS. [id number] 12:31:00 Test Item Value Reference Range Interpretation [...] L 0.00-0.20 (test code = 417) 0.00BLOOD [id number] 06:00:00 Test Item Value Reference Range Interpretation Comments CULTURE (BEAKER) (test No growth in 5 days code = 1095) URINE [id number] 13:38:00 Test Item Value Reference Range Interpretation Comments CULTURE (BEAKER) (test A 50-59 ,000 col/mL Beronica code = 1095) albicans <10,000 col/mL Gram Negative byron<10,000 col/mL skin floraURINALYSIS W/ [id number] 03:34:00 Test Item Value Reference Range Interpretation [...] = 516) SOURCE(BEAKER) (test code = 2795) [id number] 02:16:00 Test Item Value Reference Range Interpretation Comments LIPASE (BEAKER) (test code = 749) 8 U/L 8-78 [id number] 02:16:00 Test Item Value Reference Range Interpretation Comments AMYLASE (BEAKER) (test code = 349) 21 U/L 25-125 L BASIC METABOLIC [id number] 02:16:00 Test Item Value Reference Range Interpretation [...] APPLICABLE FOR DIALYSIS PATIEN TS. HEPATIC FUNCTION [id number] 02:16:00 Test Item Value Reference Range Interpretation [...] 6-55 347) CBC W/PLT COUNT & AUTO [id number] 02:05:00 Test Item Value Reference Range Interpretation [...] L 0.00-0.20 (test code = 417) 0.00TISSUE [id number] 16:41:00Surgical Pathology Report Case: [id number] Authorizing Provider: Jag Escalera MD Collected: 01/23/2017 5506 Ordering Location: [facility] Received: 01/24/2017 0855 SERVICES Pathologist: Karma [...] cm. Thetissue is entirely submitted in A1. CG/ewPerformed.49239FGUDHAIDT [id number] 08:38:00 Test Item Value Reference Range Interpretation Comments CULTURE (BEAKER) (test No anaerobes isolated code = 1095) SURGICALLY OBTAINED CULTURE + GRAM [id number] 15:59:00 Test Item Value Reference Range Interpretation [...] RESULT 1+ yeast (BEAKER) (test code = 928034) POCT-GLUCOSE [id number] 13:12:00 Test Item Value Reference Range Interpretation Comments POC-GLUCOSE METER 116 mg/dL 70-110 H TESTED AT [facility] 6720 (BEAKER) (test code = [facility] 1538) [address] POCT-GLUCOSE [id number] 12:02:00 Test Item Value Reference Range Interpretation Comments POC-GLUCOSE METER 142 mg/dL 70-110 H TESTED AT [facility] ([facility] (test code = [facility] 1538) [address] POCT-GLUCOSE [id number] 08:20:00 Test Item Value Reference Range Interpretation Comments POC-GLUCOSE METER 169 mg/dL 70-110 H TESTED AT [facility] 67 ([facility]) (test code = [facility] 1538) [address] [id number] 04:58:00 Test Item Value Reference Range Interpretation Comments PHOSPHORUS (BEAKER) (test code = 2.0 mg/dL 2.3-4.7 L 604) [id number] 04:58:00 Test Item Value Reference Range Interpretation Comments MAGNESIUM (BEAKER) (test code = 2.0 mg/dL 1.6-2.6 627) BASIC METABOLIC [id number] 04:58:00 Test Item Value Reference Range Interpretation [...] PATIEN TS. CBC W/PLT COUNT & AUTO [id number] 04:14:00 Test Item Value Reference Range Interpretation [...] L 0.00-0.20 (test code = 417) 0.00POCT-GLUCOSE [id number] 21:38:00 Test Item Value Reference Range Interpretation Comments POC-GLUCOSE METER 137 mg/dL 70-110 H TESTED AT [place] [address] ([facility]) (test [facility] = [facility] [place] 1538) [address] POCT-GLUCOSE [id number] 11:40:00 Test Item Value Reference Range Interpretation Comments POC-GLUCOSE METER 187 mg/dL 70-110 H TESTED AT [place] [address] ([facility]) (test code = [facility] Justice [place] 1538) [address] POCT-GLUCOSE [id number] 06:44:00 Test Item Value Reference Range Interpretation Comments POC-GLUCOSE METER 160 mg/dL 70-110 H TESTED AT [place] [address] ([facility]) (test code = [facility] [place] 1538) [address] BLOOD GAS, [id number] 04:11:00 Test Item Value Reference Range Interpretation [...] (BEAKER) (test code = 1819) 40.0 % [id number] 04:09:00 Test Item Value Reference Range Interpretation Comments PHOSPHORUS (BEAKER) (test code = 2.9 mg/dL 2.3-4.7 604) [id number] 04:09:00 Test Item Value Reference Range Interpretation Comments MAGNESIUM (BEAKER) (test code = 2.1 mg/dL 1.6-2.6 627) BASIC METABOLIC [id number] 04:09:00 Test Item Value Reference Range Interpretation [...] PATIEN TS. CBC W/PLT COUNT & AUTO [id number] 03:57:00 Test Item Value Reference Range Interpretation [...] L 0.00-0.20 (test code = 417) 0.00POCT-GLUCOSE [id number] 00:34:00 Test Item Value Reference Range Interpretation Comments POC-GLUCOSE METER 243 mg/dL 70-110 H TESTED AT [facility] 6720 (BEAKER) (test code = SYDNEE [place] 1538) [address] [id number] 21:39:00 Test Item Value Reference Range Interpretation Comments PHOSPHORUS (BEAKER) (test code = 3.7 mg/dL 2.3-4.7 604) [id number] 21:39:00 Test Item Value Reference Range Interpretation Comments MAGNESIUM (BEAKER) (test code = 1.6 mg/dL 1.6-2.6 627) COMPREHENSIVE METABOLIC [id number] 21:39:00 Test Item Value Reference Range Interpretation [...] PATIEN TS. CBC W/PLT COUNT & AUTO [id number] 21:24:00 Test Item Value Reference Range Interpretation [...] 0.00-0.20 (test code = 417) 0.00BLOOD GAS, [id number] 21:20:00 Test Item Value Reference Range Interpretation [...] code = 1819) 100.0 % BLOOD GAS, [id number] 18:58:00 Test Item Value Reference Range Interpretation [...] 37.0 C (test code = 1818) GLUCOSE-STAT [id number] 18:58:00 Test Item Value Reference Range Interpretation Comments GLUCOSE RANDOM (BEAKER) (test code 179 mg/dL 70-110 H = 652) CALCIUM, [id number] 18:58:00 Test Item Value Reference Range Interpretation Comments CALCIUM IONIZED (BEAKER) (test 0.96 mmol/L 1.12-1.27 L code = 698) PH, BLOOD (BEAKER) (test code = 7.37 1810) SODIUM NA-STAT [id number] 18:57:00 Test Item Value Reference Range Interpretation Comments SODIUM (BEAKER) (test code = 381) 138 meq/L 135-148 POTASSIUM-STAT [id number] 18:57:00 Test Item Value Reference Range Interpretation Comments POTASSIUM (BEAKER) (test code = 3.8 meq/L 3.6-5.5 379) HGB/HCT (H&H) - STAT [id number] 18:57:00 Test Item Value Reference Range Interpretation Comments HEMOGLOBIN (BEAKER) (test code = 12.8 g/dL 12.0-15.0 410) HEMATOCRIT (BEAKER) (test code = 38.0 % 36.0-45.0 411) SODIUM NA-STAT [id number] 17:20:00 Test Item Value Reference Range Interpretation Comments SODIUM (BEAKER) (test code = 381) 138 meq/L 135-148 POTASSIUM-STAT [id number] 17:20:00 Test Item Value Reference Range Interpretation Comments POTASSIUM (BEAKER) (test code = 3.8 meq/L 3.6-5.5 379) HGB/HCT (H&H) - STAT [id number] 17:20:00 Test Item Value Reference Range Interpretation Comments HEMOGLOBIN (BEAKER) (test code = 12.8 g/dL 12.0-15.0 410) HEMATOCRIT (BEAKER) (test code = 38.0 % 36.0-45.0 411) BLOOD GAS, [id number] 17:20:00 Test Item Value Reference Range Interpretation [...] (test code = 1819) 100.0 % GLUCOSE-STAT [id number] 17:20:00 Test Item Value Reference Range Interpretation Comments GLUCOSE RANDOM (BEAKER) (test code 167 mg/dL 70-110 H = 652) CALCIUM, [id number] 17:20:00 Test Item Value Reference Range Interpretation Comments CALCIUM IONIZED (BEAKER) (test 1.09 mmol/L 1.12-1.27 L code = 698) PH, BLOOD (BEAKER) (test code = 7.38 1810) BLOOD GAS, [id number] 16:34:00 Test Item Value Reference Range Interpretation [...] (test code = 1819) 100.0 % GLUCOSE-STAT [id number] 16:34:00 Test Item Value Reference Range Interpretation Comments GLUCOSE RANDOM (BEAKER) (test code 151 mg/dL 70-110 H = 652) CALCIUM, [id number] 16:34:00 Test Item Value Reference Range Interpretation Comments CALCIUM IONIZED (BEAKER) (test 1.11 mmol/L 1.12-1.27 L code = 698) PH, BLOOD (BEAKER) (test code = 7.31 1810) SODIUM NA-STAT [id number] 16:33:00 Test Item Value Reference Range Interpretation Comments SODIUM (BEAKER) (test code = 381) 139 meq/L 135-148 POTASSIUM-STAT [id number] 16:33:00 Test Item Value Reference Range Interpretation Comments POTASSIUM (BEAKER) (test code = 3.6 meq/L 3.6-5.5 379) HGB/HCT (H&H) - STAT [id number] 16:33:00 Test Item Value Reference Range Interpretation Comments HEMOGLOBIN (BEAKER) (test code = 13.0 g/dL 12.0-15.0 410) HEMATOCRIT (BEAKER) (test code = 38.0 % 36.0-45.0 411) BLOOD GAS, [id number] 15:56:00 Test Item Value Reference Range Interpretation [...] (test code = 1819) 100.0 % GLUCOSE-STAT [id number] 15:56:00 Test Item Value Reference Range Interpretation Comments GLUCOSE RANDOM (BEAKER) (test code 142 mg/dL 70-110 H = 652) CALCIUM, [id number] 15:56:00 Test Item Value Reference Range Interpretation Comments CALCIUM IONIZED (BEAKER) (test 1.03 mmol/L 1.12-1.27 L code = 698) PH, BLOOD (BEAKER) (test code = 7.32 1810) SODIUM NA-STAT [id number] 15:55:00 Test Item Value Reference Range Interpretation Comments SODIUM (BEAKER) (test code = 381) 138 meq/L 135-148 POTASSIUM-STAT [id number] 15:55:00 Test Item Value Reference Range Interpretation Comments POTASSIUM (BEAKER) (test code = 3.8 meq/L 3.6-5.5 379) HGB/HCT (H&H) - STAT [id number] 15:55:00 Test Item Value Reference Range Interpretation Comments HEMOGLOBIN (BEAKER) (test code = 13.5 g/dL 12.0-15.0 410) HEMATOCRIT (BEAKER) (test code = 40.0 % 36.0-45.0 411) URINALYSIS W/ [id number] 13:28:00 Test Item Value Reference Range Interpretation [...] code Urine, Clean Catch = 2795) POCT-GLUCOSE [id number] 12:50:00 Test Item Value Reference Range Interpretation Comments POC-GLUCOSE METER 146 mg/dL 70-110 H TESTED AT [facility] 6720 (BEAKER) (test code = SYDNEE [place] 1538) [address] URINE [id number] 09:26:00 Test Item Value Reference Range Interpretation Comments CULTURE (BEAKER) (test A 50-59 ,000 col/mL Myroides code = 1095) speciesMost meseret sely resembles <10,000 col/mL Beta hemolytic strepURINALYSIS W/ [id number] 11:15:00 Test Item Value Reference Range Interpretation [...] SOURCE(BEAKER) (test code = 2795) BASIC METABOLIC [id number] 11:08:00 Test Item Value Reference Range Interpretation [...] NOT APPLICABLE FOR DIALYSIS PATIEN TS. PROTHROMBIN [id number] 10:58:00 Test Item Value Reference Range Interpretation Comments PROTIME (BEAKER) (test code = 12.8 seconds 11.7-14.7 759) INR (BEAKER) (test code = 370) 1.0 <=5.9 RECOMMENDED COUMADIN/WARFARIN INR THERAPY RANGESSTANDARD DOSE: 2.0 - 3.0 Includes: PROPHYLAXIS forvenous thrombosis, systemic embolization; TREATMENT for venous thrombosis and/or pulmonary embolus.HIGH RISK: Target INR is 2.5-3.5 for patients with mechanical heart valves.[id number] 10:58:00 Test Item Value Reference Range Interpretation Comments PARTIAL THROMBOPLASTIN TIME 35.7 seconds 22.5-36.0 (BEAKER) (test code = 760) CBC W/PLT COUNT & AUTO [id number] 10:48:00 Test Item Value Reference Range Interpretation [...]
--- NOTE | 2021-03-04 17:11 | EDPHYS ---
Physician Documentation [facility] Name: Ankita Todd Age: 60 yrs Sex: Female : 1960 Arrival Date: 03/04/2021 Time: 13:04 Bed 27 Private MD: He Russo HPI: 03/04 17:01 This 60 yrs old Female presents to ER via Ambulatory with complaints of flash Gallbladder Issue. 17:01 The patient or guardian reports chest pain that is located primarily in the anterior flash chest wall, left. Onset: 3 day(s) ago. The patient presents with abdominal pain in the upper abdomen, abdominal distention in the upper abdomen, in the lower abdomen. Onset: The symptoms/episode began/occurred 3 day(s) ago. The pain does not radiate. The symptoms do not radiate. Associated signs and symptoms: none. The symptoms are described as crampy. Modifying factors: The symptoms are alleviated by nothing, the symptoms are aggravated by nothing. The chest pain is described as a pressure. Historical: - Allergies: 13:13 Benadryl; hb 13:13 Demerol; hb 13:13 Diflucan; hb 13:13 Morphine (Doesn't Work); hb 13:13 Nitrofurantoin Macrocrystal; hb 13:13 oral antifungals; hb 13:13 tramadol; hb - PMHx: 13:13 Anxiety; Colitis; Diabetes - NIDDM; High Cholesterol; Hypertension; kidney stent; Sleep hb Apnea; - Immunization history:: Adult Immunizations unknown, Client reports having NOT received the Covid vaccine. - Social history:: Smoking status: Patient denies any tobacco usage or history of. - Family history:: not pertinent. ROS: 17:01 Constitutional: Negative for fever, chills, and weight loss, Eyes: Negative for injury, flash pain, redness, and discharge, ENT: Negative for injury, pain, and discharge, Neck: Negative for injury, pain, and swelling, Respiratory: Negative for shortness of breath, cough, wheezing, and pleuritic chest pain, Back: Negative for injury and pain, : Negative for injury, bleeding, discharge, and swelling, MS/Extremity: Negative for injury and deformity, Skin: Negative for injury, rash, and discoloration, Neuro: Negative for headache, weakness, numbness, tingling, and seizure, Psych: Negative for depression, anxiety, suicide ideation, homicidal ideation, and hallucinations, Allergy/Immunology: Negative for hives, rash, and allergies, Endocrine: Negative for neck swelling, polydipsia, polyuria, polyphagia, and marked weight changes, Hematologic/Lymphatic: Negative for swollen nodes, abnormal bleeding, and unusual bruising. 17:01 Cardiovascular: Positive for chest pain. 17:01 Abdomen/GI: Positive for abdominal pain, of the right upper quadrant. Exam: 17:01 Constitutional: This is a well developed, well nourished patient who is awake, alert, flash and in no acute distress. Head/Face: Normocephalic, atraumatic. Eyes: Pupils equal round and reactive to light, extra-ocular motions intact. Lids and lashes normal. Conjunctiva and sclera are non-icteric and not injected. Cornea within normal limits. Periorbital areas with no swelling, redness, or edema. ENT: Nares patent. No nasal discharge, no septal abnormalities noted. Tympanic membranes are normal and external auditory canals are clear. Oropharynx with no redness, swelling, or masses, exudates, or evidence of obstruction, uvula midline. Mucous membranes moist. Neck: Trachea midline, no thyromegaly or masses palpated, and no cervical lymphadenopathy. Supple, full range of motion without nuchal rigidity, or vertebral point tenderness. No Meningismus. Chest/axilla: Normal chest wall appearance and motion. Nontender with no deformity. No lesions are appreciated. Cardiovascular: Regular rate and rhythm with a normal S1 and S2. No gallops, murmurs, or rubs. Normal PMI, no JVD. No pulse deficits. Respiratory: Lungs have equal breath sounds bilaterally, clear to auscultation and percussion. No rales, rhonchi or wheezes noted. No increased work of breathing, no retractions or nasal flaring. Abdomen/GI: Soft, non-tender, with normal bowel sounds. No distension or tympany. No guarding or rebound. No evidence of tenderness throughout. Back: No spinal tenderness. No costovertebral tenderness. Full range of motion. Skin: Warm, dry with normal turgor. Normal color with no rashes, no lesions, and no evidence of cellulitis. MS/ Extremity: Pulses equal, no cyanosis. Neurovascular intact. Full, normal range of motion. Neuro: Awake and alert, GCS 15, oriented to person, place, time, and situation. Cranial nerves II-XII grossly intact. Motor strength 5/5 in all extremities. Sensory grossly intact. Cerebellar exam normal. Normal gait. Psych: Awake, alert, with orientation to person, place and time. Behavior, mood, and affect are within normal limits. 17:01 Musculoskeletal/extremity: DVT Exam: No signs of deep vein thrombosis. no pain, no swelling, no tenderness, negative Homans' sign noted on exam, no appreciated bluish discoloration, no erythema, no increased warmth. 18:01 ECG was reviewed by the Attending Physician. [facility] Vital Signs: 13:11 BP 128 / 73; Pulse 67; Resp 16; Temp 97.3(TE); Pulse Ox 93% ; Weight 130.63 kg; Height hb 5 ft. 7 in. (170.18 cm); 16:55 BP 132 / 76; Pulse 61; Resp 19; Pulse Ox 96% on R/A; Pain 7/10; ap3 18:30 BP 116 / 68; Pulse 54; Resp 17; Pulse Ox 100% on R/A; ap3 19:33 BP 103 / 78; Pulse 86; Resp 18; Pulse Ox 95% on R/A; ld1 13:11 Body Mass Index 45.11 (130.63 kg, 170.18 cm) hb MDM: 16:41 Patient medically screened. flash 17:03 Differential diagnosis: abnormal EKG, acute myocardial infarction, coronary artery flash disease chest wall pain, Cholelithiasis costochondritis, hiatal hernia, peptic ulcer disease, pneumonia, stable angina, unstable angina. HEART Score: History: Moderately Suspicious (1), ECG: Normal (0), Age: > 45 and < 65 years (1), Risk Factors: > or = 3 Risk factors for atherosclerotic disease (2), [Hypercholesterolemia] [Hypertension] [DM] [Active Smoker] [+ Family HX] [Obesity] Troponin: < or = 1 x Normal Limit (0). The patient was given aspirin in the Emergency Department. The patient's deep vein thrombosis risk score was calculated as follows: Total Score: 0. This patient was found to be at low risk for a deep vein thrombosis by using the Well's assessment criteria. The patient's pulmonary embolism risk score was calculated as follows: Total Score: 0-2 points. This patient was found to be at low risk for a pulmonary embolism by using the Well's assessment criteria. MARIANA Risk Score: not applicable. Data reviewed: vital signs, nurses notes, lab test result(s), EKG, radiologic studies, CT scan, plain films, ultrasound. 17:03 Data interpreted: youth nutritional monitor: rate is 61 beats/min, rhythm is regular, Pulse flash oximetry: on room air is 96 %. Test interpretation: by ED physician or midlevel provider: ECG, plain radiologic studies. Counseling: I had a detailed discussion with the patient and/or guardian regarding: the historical points, exam findings, and any diagnostic results supporting the discharge/admit diagnosis, lab results, radiology results, the need for further work-up and treatment in the hospital. 03/04 16:58 Order name: Basic Metabolic Panel [facility] 03/04 16:58 Order name: CBC with Diff [facility] 03/04 16:58 Order name: LFT's; Complete Time: 19:33 [facility] 03/04 16:58 Order name: Magnesium; Complete Time: 19:33 [facility] 03/04 16:58 Order name: NT PRO-BNP; Complete Time: 19:33 [facility] 03/04 16:58 Order name: PT-INR; Complete Time: 18:34 [facility] 03/04 16:58 Order name: Troponin (emerg Dept Use Only); Complete Time: 19:33 [facility] 03/04 16:58 Order name: Lipase; Complete Time: 19:33 [facility] 03/04 16:58 Order name: Urine Culture [facility] 03/04 16:59 Order name: Basic Metabolic Panel; Complete Time: 19:33 [facility] 03/04 16:59 Order name: CBC with Automated Diff; Complete Time: 18:34 [facility] 03/04 17:00 Order name: COVID-19 : Document "Date of Symptom Onset" if Symptomatic. [facility] 03/04 18:54 Order name: Urine Dipstick-Ancillary; Complete Time: 18:56 [facility] 03/04 22:41 Order name: Glucose, Ancillary Testing [facility] 03/04 16:58 Order name: XRAY Chest (1 view); Complete Time: 18:34 [facility] 03/04 16:58 Order name: US Abdomen Limited; Complete Time: 18:34 [facility] 03/04 16:58 Order name: CT Chest, Abdomen, Pelvis - W/Contrast; Complete Time: 18:45 [facility] 03/04 23:11 Order name: Troponin I [facility] 03/04 23:53 Order name: CREATININE WHOLE BLOOD [facility] 03/05 01:22 Order name: SARS-COV-2 RT PCR [facility] 03/05 05:24 Order name: CBC with Automated Diff [facility] 03/05 05:45 Order name: Comprehensive Metabolic Panel [facility] 03/05 05:45 Order name: Troponin I [facility] 03/05 05:45 Order name: Lipid Profile [facility] 03/05 05:45 Order name: T4 Free [facility] 03/05 05:45 Order name: Thyroid Stimulating Hormone [facility] 03/05 05:57 Order name: LDL, Direct [facility] 03/05 08:03 Order name: Glucose, Ancillary Testing [facility] 03/05 12:30 Order name: Glucose, Ancillary Testing [facility] 03/04 16:58 Order name: EKG; Complete Time: 16:59 [facility] 03/04 16:58 Order name: Cardiac monitoring; Complete Time: 17:32 [facility] 03/04 16:58 Order name: EKG - Nurse/Tech; Complete Time: 17:58 [facility] 03/04 16:58 Order name: IV Saline Lock; Complete Time: 17:32 [facility] 03/04 16:58 Order name: Labs collected and sent; Complete Time: 17:32 [facility] 03/04 16:58 Order name: O2 Per Protocol; Complete Time: 17:06 [facility] 03/04 16:58 Order name: O2 Sat Monitoring; Complete Time: 17:06 [facility] 03/04 16:58 Order name: Urine Dipstick-Ancillary (obtain specimen); Complete Time: 18:54 [facility] EC:01 Rate is 53 beats/min. Rhythm is regular. QRS [place] is Normal. MD interval is normal. QRS flash interval is normal. QT interval is normal. No Q waves. T waves are Normal. No ST changes noted. Clinical impression: NSR w/ Non-specific ST/T Changes and No evidence of ischemia. Interpreted by me. Reviewed by me. Administered Medications: 18:28 Drug: Pepcid (famotidine) 20 mg Route: IVP; Site: left antecubital; ap3 18:48 Follow up: Response: No adverse reaction ap3 18:29 Drug: NS 0.9% 500 ml Route: IV; Rate: bolus; Site: left antecubital; ap3 03/05 00:14 Follow up: IV Status: Completed infusion bs2 03/04 18:29 Drug: fentaNYL (PF) 25 mcg Route: IVP; Site: left antecubital; ap3 18:54 Follow up: Response: No adverse reaction; Pain is decreased ap3 18:29 Drug: Zofran (Ondansetron) 4 mg Route: IVP; Site: left antecubital; ap3 18:48 Follow up: Response: No adverse reaction; Nausea is decreased ap3 18:29 Drug: Aspirin Chewable Tablet 324 mg Route: PO; ap3 18:48 Follow up: Response: No adverse reaction ap3 20:24 Drug: Magnesium Sulfate 1 grams Route: IVPB; Infused Over: 1 hrs; Site: left ld1 antecubital; 03/05 00:14 Follow up: IV Status: Completed infusion bs2 03/04 20:25 Drug: fentaNYL (PF) 25 mcg Route: IVP; Site: left antecubital; ld1 03/05 00:14 Follow up: Response: No adverse reaction bs2 03/04 20:41 Drug: NS 0.9% 1000 ml Route: IV; Rate: 125 ml/hr; Site: left antecubital; ld1 03/05 00:15 Follow up: IV Status: Completed infusion bs2 Disposition Summary: 03/04/21 17:11 Hospitalization Ordered Hospitalization Status: Observation flash Provider: Shakir Chappell flash Condition: Stable flash Problem: new flash Symptoms: have improved flash Bed/Room Type: Standard flash Location: Telemetry/MedSurg (observation)(03/05/21 12:45) eb Room Assignment: 216(03/05/21 12:45) eb Diagnosis - Chest pain, unspecified flash - Abdominal pain, Generalized flash - Type 2 diabetes mellitus with hyperglycemia flash - Obesity, unspecified flash - Hypomagnesemia flash Forms: - Medication Reconciliation Form flash - SBAR form flash Signatures: Dispatcher [employer] EDHe Monreal MD MD cha Attema, Lee, DRESS FITTER-C DRESS FITTER-Cla1 Dania Mari RN RN Joi Felipe RN RN hb Prokisch, Amanda, RN RN ap3 Sharon Browning Lauren, RN RN ld1 Freda Parham RN bs2 Corrections: (The following items were deleted from the chart) 03/04 21: 17:11 Telemetry/MedSurg (observation) [facility] cg 17:11 [facility] cg 03/05 12:45 03/04 21:36 [facility] eb 03/05 12:45 03/04 21:36 [facility]
--- NOTE | 2021-03-04 17:11 | ER ---
Nurse's Notes [facility] Name: Ankita Todd Age: 60 yrs Sex: Female : 1960 Arrival Date: 03/04/2021 Time: 13:04 Bed 27 Private MD: Diagnosis: Chest pain, unspecified;Abdominal pain, Generalized;Type 2 diabetes mellitus with hyperglycemia;Obesity, unspecified;Hypomagnesemia Presentation: 03/04 13:11 Chief complaint: Patient states: Episodic chest pain and abd pain that began a week hb ago. Pt was seen by her Aviation Maintenance Instructor, Dr. Thomas who told her to go to the ER because he believes it may be her gallbladder. Pt was evaluated in ER 5 days ago for similar complaints. Coronavirus screen: Client denies travel out of the [place] in the last 14 days. Ebola Screen: Patient denies exposure to infectious person. Patient denies travel to an Ebola-affected area in the 21 days before illness onset. Initial Sepsis Screen: Does the patient meet any 2 criteria? No. Patient's initial sepsis screen is negative. Does the patient have a suspected source of infection? No. Patient's initial sepsis screen is negative. Risk Assessment: Do you want to hurt yourself or someone else? Patient reports no desire to harm self or others. Onset of symptoms was February 25, 2021. 13:11 Method Of Arrival: Ambulatory hb 13:11 Acuity: BRYAN 3 hb Historical: - Allergies: 13:13 Benadryl; hb 13:13 Demerol; hb 13:13 Diflucan; hb 13:13 Morphine (Doesn't Work); hb 13:13 Nitrofurantoin Macrocrystal; hb 13:13 oral antifungals; hb 13:13 tramadol; hb - PMHx: 13:13 Anxiety; Colitis; Diabetes - NIDDM; High Cholesterol; Hypertension; kidney stent; Sleep hb Apnea; - Immunization history:: Adult Immunizations unknown, Client reports having NOT received the Covid vaccine. - Social history:: Smoking status: Patient denies any tobacco usage or history of. - Family history:: not pertinent. Screenin:54 Abuse screen: Denies threats or abuse. Nutritional screening: No deficits noted. ap3 Tuberculosis screening: No symptoms or risk factors identified. Fall Risk None identified. Assessment: 16:53 General: Appears in no apparent distress. comfortable, Behavior is calm, cooperative, ap3 appropriate for age. Pain: Complains of pain in back and chest Pain does not radiate. Pain currently is 7 out of 10 on a pain scale. Quality of pain is described as aching, Pain began patient states the pain has been going on for "quite some time" Is continuous. Neuro: Level of Consciousness is awake, alert, obeys commands, Oriented to person, place, time, situation, Appropriate for age Moves all extremities. Gait is steady, Speech is normal. Cardiovascular: Reports chest pain, Denies shortness of breath, Capillary refill < 3 seconds Patient's skin is warm and dry. Respiratory: Airway is patent Respiratory effort is even, unlabored, Respiratory pattern is regular, symmetrical. GI: Reports lower abdominal pain, upper abdominal pain, nausea. : No signs and/or symptoms were reported regarding the genitourinary system. EENT: No signs and/or symptoms were reported regarding the EENT system. Derm: No signs and/or symptoms reported regarding the dermatologic system. 17:33 Reassessment: patient refuses COVID testing. Provider notified. ap3 18:37 Reassessment: patient provided with specimen cup, wipes and education on proper urine ap3 collection. patient verbalized understanding. 19:33 Reassessment: Patient appears in no apparent distress at this time. No changes from ld1 previously documented assessment. Patient and/or family updated on plan of care and expected duration. Pain level reassessed. Vital Signs: 13:11 BP 128 / 73; Pulse 67; Resp 16; Temp 97.3(TE); Pulse Ox 93% ; Weight 130.63 kg; Height hb 5 ft. 7 in. (170.18 cm); 16:55 BP 132 / 76; Pulse 61; Resp 19; Pulse Ox 96% on R/A; Pain 7/10; ap3 18:30 BP 116 / 68; Pulse 54; Resp 17; Pulse Ox 100% on R/A; ap3 19:33 BP 103 / 78; Pulse 86; Resp 18; Pulse Ox 95% on R/A; ld1 13:11 Body Mass Index 45.11 (130.63 kg, 170.18 cm) hb ED Course: 13:04 Patient arrived in ED. ds1 13:13 Triage completed. hb 13:13 Arm band placed on right wrist. hb 16:37 Libra Angeles, JULIO C is Primary Nurse. ap3 16:41 He Jamison MD is Attending Physician. flash 16:55 Patient has correct armband on for positive identification. Bed in low position. Call ap3 light in reach. Side rails up X 1. Pulse ox on. NIBP on. Door closed. Noise minimized. 17:06 Shakir Chappell MD is Hospitalizing Provider. flash 17:25 Inserted saline lock: 22 gauge in left antecubital area, using aseptic technique. Blood ap3 collected. 17:40 ultrasound at the bedside. ap3 17:44 US Abdomen Limited In Process Unspecified. EDMS 18:10 XRAY Chest (1 view) In Process Unspecified. EDMS 18:20 EKG done, by ED staff, reviewed by He Jamison MD. mh5 18:24 CT Chest, Abdomen, Pelvis - W/Contrast In Process Unspecified. EDMS 18:30 Admitting physician to see patient. ap3 03/05 02:13 Basic Metabolic Panel Sent. bs2 02:13 CBC with Diff Sent. bs2 Administered Medications: 03/04 18:28 Drug: Pepcid (famotidine) 20 mg Route: IVP; Site: left antecubital; ap3 18:48 Follow up: Response: No adverse reaction ap3 18:29 Drug: NS 0.9% 500 ml Route: IV; Rate: bolus; Site: left antecubital; ap3 03/05 00:14 Follow up: IV Status: Completed infusion bs2 03/04 18:29 Drug: fentaNYL (PF) 25 mcg Route: IVP; Site: left antecubital; ap3 18:54 Follow up: Response: No adverse reaction; Pain is decreased ap3 18:29 Drug: Zofran (Ondansetron) 4 mg Route: IVP; Site: left antecubital; ap3 18:48 Follow up: Response: No adverse reaction; Nausea is decreased ap3 18:29 Drug: Aspirin Chewable Tablet 324 mg Route: PO; ap3 18:48 Follow up: Response: No adverse reaction ap3 20:24 Drug: Magnesium Sulfate 1 grams Route: IVPB; Infused Over: 1 hrs; Site: left ld1 antecubital; 03/05 00:14 Follow up: IV Status: Completed infusion bs2 03/04 20:25 Drug: fentaNYL (PF) 25 mcg Route: IVP; Site: left antecubital; ld1 03/05 00:14 Follow up: Response: No adverse reaction bs2 03/04 20:41 Drug: NS 0.9% 1000 ml Route: IV; Rate: 125 ml/hr; Site: left antecubital; ld1 03/05 00:15 Follow up: IV Status: Completed infusion bs2 Outcome: 03/04 17:11 Decision to Hospitalize by Provider. [facility] 03/05 13:45 Patient left the ED. jd3 Signatures: Dispatcher [employer] EDMS He Jamison MD MD cha Sanford, Demi ds1 Joi Felipe, JULIO C RN Kathryn Garibay Hany Hernandez RN RN jd3 Libra Angeles RN RN ap3 Kat Musa RN RN ld1 Freda Parham RN RN bs2
[2021-03-04 17:40] LABS: Hematocrit 45.6 % (36.0-45.0); Lymphocytes % 29.8 % (15.3-44.8); MPV 7.4 fL (7.6-11.3); RBC Red Blood Cell Count 5.15 M/uL (3.86-4.86)
[2021-03-04 17:41] LABS: Protime INR 0.97
--- NOTE | 2021-03-04 17:52 | RAD REPORT ---
EXAM DESCRIPTION: US - Abdomen Exam Limited - 03/04/2021 5:42 pm CLINICAL HISTORY: Abdominal pain. COMPARISON: 2019 FINDINGS: The gallbladder wall is not thickened. A 7 millimeter gallstone present. The biliary tree is normal caliber. Fatty liver IMPRESSION: Cholelithiasis without evidence of cholecystitis
--- NOTE | 2021-03-04 18:18 | RAD REPORT ---
EXAM DESCRIPTION: Wendy Single View03/04/2021 6:10 pm CLINICAL HISTORY: Chest pain COMPARISON: February 28, 2021 FINDINGS: The lungs appear clear of acute infiltrate. The heart is normal size IMPRESSION: No acute abnormalities displayed
[2021-03-04] MEDS ORDERED: ASPIRIN 81 MG CHEWABLE TABLET ONE (18:24)
[2021-03-04] MEDS ORDERED: NA CHLORIDE 0.9% 1,000 ML ONE (18:25)
[2021-03-04] MEDS ORDERED: NA CHLORIDE 0.9% 500 ML ONE (18:25)
[2021-03-04] MEDS ORDERED: FENTANYL CITR 100 MCG/2 ML ONE ×2 (18:25→20:41)
[2021-03-04] MEDS ORDERED: ONDANSETRON 4 MG/2 ML VIAL ONE ×3 (18:25→23:48)
[2021-03-04] MEDS ORDERED: FAMOTIDINE 20 MG/2 ML VIAL IV ONE (18:26)
--- NOTE | 2021-03-04 18:38 | RAD REPORT ---
EXAM DESCRIPTION: CT - Chest Abdomen Pelvis W Cont - 03/04/2021 6:24 pm CLINICAL HISTORY: Chest and abdominal pain COMPARISON: 2019 CT scan March 04, 2021 ultrasound TECHNIQUE: Computed axial tomography of the chest, abdomen and pelvis was obtained. 100 cc Isovue-30 0 was administered intravenously. Oral contrast was not requested. This limits evaluation of bowel. All CT scans are performed using dose optimization technique as appropriate and may include automated exposure control or mA/KV adjustment according to patient size. FINDINGS: Lungs are clear. No mediastinal or hilar lymphadenopathy. No pleural effusion. A pericardial effusion is not present. Fatty liver. Spleen, pancreas and adrenals are unremarkable. Left nephrectomy Mild prominence of a right extrarenal pelvis unchanged. A renal mass is not noted. Diverticula stem from the colon without evidence of diverticulitis. Normal appendix. Umbilical hernia contains fat. The measures 2.5 centimeters. Hysterectomy. No adnexal mass Patient's known gallstone is not visualized on this exam. Biliary tree is normal caliber. Spondylosis involves lumbar spine resulting spinal stenosis. Small calcification within the anterior bladder wal l IMPRESSION: No acute abnormality is displayed
[2021-03-04 18:54] LABS: Urine Blood Negative (Negative); Urine Glucose Negative (Negative); Urine Protein Negative (Negative); Urine Specific Gravity 1.015 (1.005-1.030)
[2021-03-04 19:04] LABS: ALT/SGPT 66 U/L (12-78); AST/SGOT 41 U/L (15-37); Albumin 3.6 g/dL (3.4-5.0); Alkaline Phosphatase 70 U/L (45-117); BUN Blood Urea Nitrogen 29 mg/dL (7-18); Bicarbonate 27 mmol/L (21-32); Bilirubin Direct 0.1 mg/dL (0-0.2); Bilirubin Total 0.6 mg/dL (0.2-1.0); Glucose Level 123 mg/dL (74-106); Lipase 123 U/L (73-393); Magnesium 1.7 mg/dL (1.8-2.4); NT PRO-BNP 78 pg/mL (<125); Potassium 3.8 mmol/L (3.5-5.1); Sodium Level 136 mmol/L (136-145); Troponin (Emerg Dept Use Only) < 0.02 ng/mL (0.0-0.045)
--- NOTE | 2021-03-04 19:28 | P.HP ---
Certification for Inpatient Patient admitted to: Observation With expected LOS: <2 Midnights Patient will require the following post-hospital care: None Practitioner: I am a practitioner with admitting privileges, knowledge of patient current condition, hospital course, and medical plan of care. Services: Services provided to patient in accordance with Admission requirements found in Title 42 Section 412.3 of the Code of Federal Regulations Patient History Date of Service: 03/04/21 Primary Care Provider: Dr. Castillo, cardiology Dr. Thomas Reason for admission: Chest pain, abdominal pain History of Present Illness: 60-year-old, chronic back pain presents to the emergency department for chest pain, abdominal pain, nausea, diaphoresis. Patient reports multiple episodes of diaphoresis, nausea over the course of the last 7 days, patient reporting some substernal pressure this evening. Patient had heart catheterization in either November or December of this year with "mild plaque" without need for intervention per her aircraft launch and recovery technician Dr. Thomas in [place]. Patient was evaluated in the emergency department, labs were significant for white blood cell count 10.2 hematocrit 45.6 hemoglobin 15.2 troponin negative creatinine 1.35 GFR 40 glucose [address] chest abdomen pelvis negative for any acute findings. Patient with mild tenderness on exam of the abdomen. Ultrasound demonstrates a 7 mm gallstone without any signs of cholecystitis. ED provider received admit under observation for chest pain. Allergies diphenhydramine [From Benadryl] Allergy (Verified 06/27/19 02:01) hallucinate fluconazole [From Diflucan] Allergy (Verified 06/27/19 02:01) Unknown meperidine [From Demerol] Allergy (Verified 06/27/19 02:01) Unknown morphine Allergy (Verified 06/27/19 02:01) Unknown tramadol Allergy (Verified 06/27/19 02:01) Unknown nitrofurantoin [From Macrobid] Adverse Reaction (Verified 06/27/19 02:01) Itching Nitrofuran Allergy (Uncoded 03/02/17 09:12) Unknown Nitrofurantoin Allergy (Uncoded 10/08/17 16:41) Unknown Home Medications: Metformin ER [Glucophage ER*] 500 mg PO DAILY 08/25/18 Nebivolol HCl [Bystolic*] 5 mg PO DAILY 08/25/18 Atorvastatin Calcium 40 mg PO BEDTIME #30 tablet 06/27/19 Dulaglutide [Trulicity] 0.75 mg SQ EVERY 7TH DAY 06/27/19 - Past Medical/Surgical History Diabetic: Yes -: Nephrolithiasis -: HTN -: Dyslipidemia -: anxiety -: Diabetes mellitus type 2 -: Chronic back pain -: LEG SURGERY -: kidney stent -: hysterectomy -: Ureter anastomosis with stent placement -: left Nephrectomy - Family History Father -: Diabetes, Other (see notes) (Alzheimer's) Brother -: Diabetes, Cancer - Social History Smoking Status: Current every day smoker Counseled patient to stop smoking for: less than 10 minutes Smoking therapy provided: No (Patient declined) Alcohol use: No CD- Drugs: No Caffeine use: Yes Place of Residence: Home Review of Systems 10-point ROS is otherwise unremarkable General: Sweats, Malaise Cardiovascular: Chest Pain Gastrointestinal: Nausea, Abdominal Pain Physical Examination - Physical Exam General: Alert, In no apparent distress, Oriented x3 HEENT: Atraumatic, PERRLA, Mucous membr. moist/pink, EOMI, Sclerae nonicteric Neck: Supple, 2+ carotid pulse no bruit, No LAD, Without JVD or thyroid a bnormality Respiratory: Clear to auscultation bilaterally, Normal air movement Cardiovascular: Regular rate/rhythm, Normal S1 S2 Capillary refill: <2 Seconds Gastrointestinal: Normal bowel sounds, Tenderness (Mild generalized abdominal tenderness on exam) Musculoskeletal: No tenderness Integumentary: No rashes Neurological: Normal speech, Normal strength at 5/5 x4 extr, Normal tone, Normal affect - Studies Laboratory Data (last 24 hrs) 03/04/21 17:30: PT 11.2, INR 0.97 03/04/21 17:30: WBC 10.20, Hgb 15.2 H, Hct 45.6 H, Plt Count 265 03/04/21 17:30: Sodium 136, Potassium 3.8, BUN 29 H, Creatinine 1.35 H, Glucose 123 H, Magnesium 1.7 L, Total Bilirubin 0.6, AST 41 H, ALT 66, Alkaline Phosphatase 70, Lipase 123 Assessment and Plan - Plan Assessment: Chest pain rule out ACS Abdominal pain/tenderness Diabetes mellitus type 2 Hypertension Hyperlipidemia Chronic back pain Plan: Chest pain rule out ACS: Monitor on telemetry, trend troponins. Patient with heart catheterization in November or December of this year demonstrates "mild plaque" per her aircraft launch and recovery technician Dr. Thomas. Patient does report episodes of diaphoresis associated with some episodes of chest pain over the course of last 7 days. Will consult cardiology for additional assistance. Continue medications. DVT prophylaxis with Lovenox. Abdominal pain/tenderness: Mild generalized abdominal tenderness, ultrasound without signs of cholecystitis, CT abdomen pelvis without acute findings. Continue with serial abdominal exams, Protonix. Diabetes mellitus type 2: AC at bedtime Accu-Chek, sliding scale insulin ther apy. Patient reports very recent A1c was 10.4. Educated on importance of adhering to diabetes regimen. Hypertension: Continue medications, adjust as necessary Hyperlipidemia: Continue medications Chronic back pain: Continue medications DVT PPX: Lovenox Code status: Full Discharge Plan: Home Plan to discharge in: 24 Hours - Advance Directives Does patient have a Living Will: No Does patient have a Durable POA for Healthcare: Yes - Code Status/Comfort Care Code Status Assessed: Yes (Full code) Critical Care: No Time Spent Managing Pts Care (In Minutes): 55
[2021-03-04] MEDS ORDERED: MAGNESIUM SULFATE 1 gm IVPB 1 GM/100 ML BAG IV ONE (20:35)
[2021-03-04] MEDS: INSULIN -REGULAR HUMAN 50 UNIT/0.5 ML ML SQ SCH (22:09)
[2021-03-04] MEDS ORDERED: HYDROCODONE/APAP 10/325 TAB ONE (23:44)
[2021-03-05] MEDS ORDERED: FENTANYL CITR 100 MCG/2 ML ONE ×4 (00:33→12:29)
[2021-03-05] MEDS ORDERED: NA CHLORIDE 0.9% 1,000 ML ONE ×2 (00:52→06:41)
[2021-03-05] MEDS ORDERED: NA CHLORIDE 0.9% 1,000 ML IV ONE (01:30)
[2021-03-05] MEDS ORDERED: KETOROLAC 30 MG/ML INJ IV ONE (01:30)
[2021-03-05] MEDS ORDERED: DIPHENHYDRAMINE 50 MG/ML VIAL ONE (01:47)
[2021-03-05] MEDS ORDERED: KETOROLAC 30 MG/ML INJ ONE (01:47)
[2021-03-05] MEDS ORDERED: FENTANYL CITR 100 MCG/2 ML IV ONE (03:00)
[2021-03-05 05:09] LABS: Basophils % 0.8 % (0-1.3); Hematocrit 41.7 % (36.0-45.0); Lymphocytes % 34.1 % (15.3-44.8); MPV 7.3 fL (7.6-11.3); RBC Red Blood Cell Count 4.74 M/uL (3.86-4.86)
[2021-03-05 05:24] VITALS: BMI 45.1
[2021-03-05 05:27] LABS: ALT/SGPT 54 U/L (12-78); AST/SGOT 31 U/L (15-37); Albumin 3.1 g/dL (3.4-5.0); Alkaline Phosphatase 61 U/L (45-117); BUN Blood Urea Nitrogen 26 mg/dL (7-18); Bicarbonate 29 mmol/L (21-32); Bilirubin Total 0.4 mg/dL (0.2-1.0); Glucose Level 125 mg/dL (74-106); HDL Cholesterol 24 mg/dL (40-60); Potassium 3.9 mmol/L (3.5-5.1); Protein, Total 6.1 g/dL (6.4-8.2); Sodium Level 139 mmol/L (136-145); Troponin I < 0.02 ng/mL (0.0-0.045)
[2021-03-05 05:56] LABS: LDL, Direct 100 mg/dL (100-129)
[2021-03-05] MEDS ORDERED: METOPROLOL XL 100 MG TAB PO SCH (06:00)
[2021-03-05] MEDS: FENTANYL CITR 100 MCG/2 ML IV PRN ×3 (06:29→19:43)
[2021-03-05] MEDS: PANTOPRAZOLE 40MG TABLET PO SCH (06:29)
[2021-03-05] MEDS: NA CHLORIDE 0.9% 1,000 ML IV SCH ×2 (06:30→14:06)
[2021-03-05] MEDS ORDERED: PANTOPRAZOLE 40MG TABLET PO ONE (06:40)
[2021-03-05] MEDS: INSULIN -REGULAR HUMAN 50 UNIT/0.5 ML ML SQ SCH ×4 (07:30→21:00)
[2021-03-05] MEDS: ACETAMINOPHEN 500 MG TAB PO PRN (07:57)
[2021-03-05] MEDS ORDERED: ACETAMINOPHEN 500 MG TAB ONE (08:18)
[2021-03-05] MEDS: ASPIRIN EC 81 MG TAB PO SCH (09:00)
[2021-03-05] MEDS: ENOXAPARIN 40 MG/0.4 ML SQ SCH (09:00)
[2021-03-05] MEDS ORDERED: ONDANSETRON 4 MG/2 ML VIAL ONE (09:33)
[2021-03-05] MEDS ORDERED: ASPIRIN EC 81 MG TAB PO ONE (09:34)
[2021-03-05] MEDS ORDERED: ENOXAPARIN 40 MG/0.4 ML SQ ONE (09:34)
[2021-03-05] MEDS: ONDANSETRON 4 MG/2 ML VIAL IV PRN ×2 (09:39→17:43)
--- NOTE | 2021-03-05 11:26 | P.PN ---
Subjective Date of Service: 03/05/21 Primary Care Provider: Dr. Castillo, cardiology Dr. Thomas Chief Complaint: Chest pain, abdominal pain Subjective: Other (slightly better, but still with significant RUQ pain/tenderness, epigastric pain. mild nausea, no vomiting/no diarrhea. no chest pressure, no sob) Review of Systems 10-point ROS is otherwise unremarkable Physical Examination - Vital Signs Temperature: 97.6 F Blood Pressure: 95/47 Pulse: 53 Respirations: 18 Pulse Ox (%): 94 - Studies Laboratory Data (last 24 hrs) 03/04/21 17:30: PT 11.2, INR 0.97 03/04/21 17:30: WBC 10.20, Hgb 15.2 H, Hct 45.6 H, Plt Count 265 03/04/21 17:30: Sodium 136, Potassium 3.8, BUN 29 H, Creatinine 1.35 H, Glucose 123 H, Magnesium 1.7 L, Total Bilirubin 0.6, AST 41 H, ALT 66, Alkaline Phosphatase 70, Lipase 123 Assessment & Plan Physician Review Additional Text: Physical Exam General: uncomfortable appearing, AAOx3 HEENT: Normal conjunctiva, sclera anicteric Respiratory: Clear to auscultation bilaterally, Normal air movement Cardiovascular: Regular rate/rhythm, Normal S1 S2 Gastrointestinal: Somewhat diffuse tenderness, most severe in right upper quadrant and epigastrium, soft, non-distended Musculoskeletal: No joint tenderness Integumentary: No rashes Problem List Chest pain rule out ACS Abdominal pain/tenderness Diabetes mellitus type 2 Hypertension Hyperlipidemia Chronic back pain troponin negative x3, does not sound cardiac in nature pain appears more secondary to gastric / abd source. Recent cath was mild dise ase a few months ago tenderness in RUQ and epigastrium - lipase normal. pt does report being told she had a pancreatic lesion in the past - not seen on U/S or CT Cholelithiasis without any signs of cholecystitis seen on CT/ultrasound Pain not classic for biliary colic. But concern for possible gallbladder dysfunction HIDA scan ordered General surgery consulted for any further recommendations Continue Protonix Dispo: anticipate dc home in 24-48hrs Time Spent Managing Pts Care (In Minutes): 35
[2021-03-05] MEDS: HYDROCODONE/APAP 10/325 TAB PO PRN (17:43)
[2021-03-06] MEDS: FENTANYL CITR 100 MCG/2 ML IV PRN ×2 (00:17→15:43)
[2021-03-06] MEDS: ONDANSETRON 4 MG/2 ML VIAL IV PRN ×2 (00:17→20:37)
[2021-03-06] MEDS: NA CHLORIDE 0.9% 1,000 ML IV SCH ×2 (03:35→14:14)
[2021-03-06] MEDS: PANTOPRAZOLE 40MG TABLET PO SCH (05:08)
[2021-03-06 05:39] LABS: Absolute Lymphocytes (CBC) 2.5 K/uL (0.7-4.9); Basophils % 0.8 % (0-1.3); Hematocrit 39.5 % (36.0-45.0); Lymphocytes % 32.9 % (15.3-44.8); MPV 7.1 fL (7.6-11.3); RBC Red Blood Cell Count 4.49 M/uL (3.86-4.86)
[2021-03-06 06:01] LABS: Bilirubin Total 0.5 mg/dL (0.2-1.0); Magnesium 1.8 mg/dL (1.8-2.4); Potassium 3.9 mmol/L (3.5-5.1); Protein, Total 5.8 g/dL (6.4-8.2)
[2021-03-06] MEDS: INSULIN -REGULAR HUMAN 50 UNIT/0.5 ML ML SQ SCH ×4 (07:30→20:41)
[2021-03-06] MEDS: ENOXAPARIN 40 MG/0.4 ML SQ SCH (08:16)
[2021-03-06] MEDS: ASPIRIN EC 81 MG TAB PO SCH (08:16)
--- NOTE | 2021-03-06 10:57 | P.PN ---
Subjective Date of Service: 03/06/21 Primary Care Provider: Dr. Castillo, cardiology Dr. Thomas Chief Complaint: Chest pain, abdominal pain Subjective: Worsening (patient had worsening RUQ pain last night shortly after eating dinner, associated with nausea/vomiting.) Review of Systems 10-point ROS is otherwise unremarkable Physical Examination - Vital Signs Temperature: 98.5 F Blood Pressure: 132/72 Pulse: 71 Respirations: 18 Pulse Ox (%): 91 - Studies Microbiology Data (last 24 hrs): 03/04/21 18:50 Clean Catch Urine [place] Count - Final BETWEEN 10,000 & 100,000 CFU/ML 03/04/21 18:50 Clean Catch Urine - Final MIXED KERI. Assessment & Plan Physician Review Additional Text: Physical Exam General: uncomfortable appearing, AAOx3, morbidly obese HEENT: Normal conjunctiva, sclera anicteric Respiratory: Clear to auscultation bilaterally, Normal air movement Cardiovascular: Regular rate/rhythm, Normal S1 S2 Gastrointestinal: moderate RUQ tenderness to palpation, non-distended Musculoskeletal: No joint tenderness Integumentary: No rashes Problem List Lower Chest pain, ruled out ACS Abdominal pain/tenderness Diabetes mellitus type 2 Hypertension Hyperlipidemia Chronic back pain no change in symptoms with protonix/carafate troponin negative x3, does not sound cardiac in nature pain more epigastrium/RuQ, with significant tenderness in RUQ lipase normal, CT and U/S without signs of cholecystitis, +cholelithiasis biliary colic type of pain last night HIDA scan ordered general surgery consulted yesterday - to re-eval today pt is NPO for possible surgery Continue Protonix Dispo: anticipate dc home in 24-48hrs, possible surgery today Time Spent Managing Pts Care (In Minutes): 35
--- NOTE | 2021-03-06 15:45 | PN ---
This patient was seen by me and Dr. Chappell yesterday in ER. The patient comes here with chronic abdom inal pain and chest pain. She with chest pain radiating to the arm. The medical doctor i s trying to rule out any cardiac disease. Several weeks ago, she even had a cardiac cath and it was in another institution, and she claimed that they just found mild disease, although we have no eviden ce of that result. I was called for the possibility of a gallstone causing this trouble and although there is differential diagnosis, we want to make sure that from a cardiac standpoint, she is clear. Dr. Chappell has been trying to get the cardiac doctor, which does not work in this institut ion to see we can give us some light on her previous cardiac workup. Our child care director here can evalu ate and tell us if you believe there are cardiac or no cardiac issues and if there are no cardiac iss ues, she always have the option for laparoscopic possible open cholecystectomy with benefits, alterna tives, and risks explained to her yesterday including, but not limited to infection, bleeding, damage to adjacent structures, anesthesia complication, choledocholithiasis, bile leak, pancreatitis, PA, a nd even . She understand this may not relieve any symptoms. She has history of abdominal surge gagandeep including nephrectomies with complications as per the patient. ARIC/LUIS CARLOS Voice ID: [id number] Report ID: [id number]
[2021-03-06] MEDS: HYDROCODONE/APAP 10/325 TAB PO PRN (20:33)
[2021-03-06] MEDS ORDERED: POTASSIUM CL SA 10 MEQ TAB PO ONE (21:00)
[2021-03-07] MEDS: NA CHLORIDE 0.9% 1,000 ML IV SCH ×3 (00:27→19:00)
[2021-03-07] MEDS: FENTANYL CITR 100 MCG/2 ML IV PRN ×5 (00:27→22:42)
[2021-03-07 05:18] LABS: Absolute Lymphocytes (CBC) 2.5 K/uL (0.7-4.9); Basophils % 0.6 % (0-1.3); Hematocrit 37.9 % (36.0-45.0); Lymphocytes % 34.5 % (15.3-44.8); MPV 7.2 fL (7.6-11.3); RBC Red Blood Cell Count 4.28 M/uL (3.86-4.86)
[2021-03-07] MEDS: PANTOPRAZOLE 40MG TABLET PO SCH (05:34)
[2021-03-07 06:28] LABS: Albumin 2.9 g/dL (3.4-5.0); Bilirubin Total 0.4 mg/dL (0.2-1.0); Protein, Total 5.7 g/dL (6.4-8.2)
[2021-03-07] MEDS: INSULIN -REGULAR HUMAN 50 UNIT/0.5 ML ML SQ SCH ×4 (07:30→20:27)
[2021-03-07] MEDS: ACETAMINOPHEN 500 MG TAB PO PRN (07:44)
[2021-03-07] MEDS: ASPIRIN EC 81 MG TAB PO SCH (10:37)
[2021-03-07] MEDS: ENOXAPARIN 40 MG/0.4 ML SQ SCH (10:37)
--- NOTE | 2021-03-07 10:57 | P.PN ---
Subjective Date of Service: 03/07/21 Primary Care Provider: Dr. Castillo, cardiology Dr. Thomas Chief Complaint: Chest pain, abdominal pain Subjective: No new changes (had lower chest / abd pain after drinking last night. Feeling ok this morning, remains tender urinating ok, +flatus) Review of Systems 10-point ROS is otherwise unremarkable Physical Examination - Vital Signs Temperature: 96.9 F Blood Pressure: 115/58 Pulse: 56 Respirations: 19 Pulse Ox (%): 95 - Studies Microbiology Data (last 24 hrs): 03/04/21 18:50 Clean Catch Urine [place] Count - Final BETWEEN 10,000 & 100,000 CFU/ML 03/04/21 18:50 Clean Catch Urine - Final MIXED KERI. Assessment & Plan Physician Review Additional Text: Physical Exam General: NAD, AAOx3, morbidly obese HEENT: Normal conjunctiva, sclera anicteric Respiratory: Clear to auscultation bilaterally, Normal air movement Cardiovascular: Regular rate/rhythm, Normal S1 S2 Gastrointestinal: moderate RUQ tenderness to palpation, non-distended Musculoskeletal: No joint tenderness Integumentary: No rashes Problem List Lower Chest pain, ruled out ACS RUQ Abdominal pain/tenderness Cholelithiasis, with biliary colic and inability to tolerate PO Diabetes mellitus type 2, non-insulin dependent Hypertension Hyperlipidemia Chronic back pain no change in symptoms with protonix/carafate troponin negative x3, does not sound cardiac in nature. Cardiology consulted. 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
--- NOTE | 2021-03-07 11:01 | RAD REPORT ---
EXAM DESCRIPTION: RAD - Chest Single View - 03/07/2021 10:39 am CLINICAL HISTORY: SOB, eval for pulm edema/effusion COMPARISON: Chest Single View dated 03/04/2021; Chest Single View dated 02/28/2021; Chest Single View dated 06/26/2019; Chest Single View dated 02/12/2019 FINDINGS: No evidence of edema or pneumonia. The heart size is within normal limits.No acute osseous abnormality. No significant pleural effusions or pneumothorax. IMPRESSION: No acute cardiopulmonary disease.
--- NOTE | 2021-03-07 13:07 | PN ---
Date of Progress Note: 03/07/2021 Diagnosis: Epigastric right upper quadrant pain, symptomatic cholelithiasis. The patient is awake and alert. The patient has been seen by supervisor vacuum metalizing, primary doctors and it is determined right now that they believe from the heart standpoint, she is stable, and cleared the pat ient for a surgical intervention in the form of laparoscopic possible open cholecystectomy. The bene fits, alternatives, and risks fully explained to the patient again, which include, but not limited to infection, bleeding, damage to adjacent structures, anesthesia complication, choledocholithiasis, bi le leak, pancreatitis, NC, and even . The patient understands this may not relieve any symptoms . She might need more than one surgical intervention. The abdomen right now shows epigastric tender ness. ARIC/LUIS CARLOS Voice ID: [id number] Report ID: [id number]
[2021-03-07] MEDS: NYSTATIN PWDR 100000 UNIT/GM TOP SCH ×2 (13:14→20:26)
--- NOTE | 2021-03-07 14:54 | CON ---
Reason For Consultation: Chest pain. History Of Present Illness: A 60-year-old female presented with right lower chest pain and right upp er quadrant abdominal pain with nausea. She sees a water trainer at [place], who had done a heart ca theterization on her recently and did not show significant coronary artery disease as per her report and she was told that she likely has a gallbladder disease and presented to the hospital for that. Past Medical History: Hypertension, dyslipidemia, diabetes, chronic kidney disease. Medications: Refer to reconciliation sheet for detailed list. Allergies: DIPHENHYDRAMINE, FLUCONAZOLE, MEPERIDINE, AND MORPHINE. Past Surgical History: Leg surgery, hysterectomy, kidney stent, left nephrectomy. Social History: Smokes daily. Does not drink or use any drugs. Family History: No premature coronary artery disease or cancer. Review of Systems: All systems reviewed and they are negative except for what is mentioned in the HPI. Physical Examination: Vital Signs: Reviewed. Head and Neck: Pupils are equal, reactive to light. Intact eye movements. No JVD. No cervical lym phadenopathy. Neck: Supple. Thyroid is not enlarged. Lungs: Clear to auscultation bilaterally. No rhonchi, rales, or crackles. No accessory muscle use. Heart: Regular rate and rhythm. No extra sounds. Abdomen: Soft, nontender. Bowel sounds positive. No organomegaly. No masses or hernia. No rigidi ty or rebound. Extremities: No edema, clubbing, or cyanosis. Intact pulses. Skin: No rashes. Neurologic: Alert, awake, oriented x3. No focal deficits appreciated. Investigations: Labs were reviewed. Assessment And Recommendations: Chest pain, atypical. Reported that she had a recent heart catheter ization that did not show significant coronary artery disease. Please try to obtain records on that heart catheterization. If that is the case, no further cardiac workup will be necessary at this poin t and to proceed seeking other causes of right lower chest pain and ruling out gallbladder as a cause of her symptoms. Thank you for the consult. /LUIS CARLOS Voice ID: [id number] Report ID: [id number]
[2021-03-07] MEDS: DOXEPIN HCL 3 MG PO SCH (20:01)
[2021-03-07] MEDS: HYDROCODONE/APAP 10/325 TAB PO PRN (20:26)
[2021-03-08] MEDS: NA CHLORIDE 0.9% 1,000 ML IV SCH (00:04)
[2021-03-08 05:49] LABS: Protime INR 1.07
[2021-03-08 05:57] LABS: Bilirubin Total 0.6 mg/dL (0.2-1.0); Magnesium 1.6 mg/dL (1.8-2.4); Potassium 3.7 mmol/L (3.5-5.1); Protein, Total 5.7 g/dL (6.4-8.2)
[2021-03-08] MEDS: PANTOPRAZOLE 40MG TABLET PO SCH (06:30)
[2021-03-08] MEDS: FENTANYL CITR 100 MCG/2 ML IV PRN ×3 (06:49→22:15)
[2021-03-08] MEDS: INSULIN -REGULAR HUMAN 50 UNIT/0.5 ML ML SQ SCH ×4 (07:30→21:44)
[2021-03-08] MEDS: ASPIRIN EC 81 MG TAB PO SCH (07:35)
[2021-03-08] MEDS: NYSTATIN PWDR 100000 UNIT/GM TOP SCH ×2 (08:23→21:00)
[2021-03-08] MEDS ORDERED: KCL 20 MEQ/100 mL IVPB 20 MEQ/100 ML BAG IV SCH (09:00)
[2021-03-08] MEDS ORDERED: propofoL 200 MG/20 ML VIAL IV ONE (09:22)
[2021-03-08] MEDS ORDERED: FENTANYL CITR 100 MCG/2 ML ONE ×2 (09:22→10:12)
[2021-03-08] MEDS ORDERED: LIDOCAINE 1% MPF 5 ML VIAL ONE (09:23)
[2021-03-08] MEDS ORDERED: MIDAZOLAM HCL 2 MG/2 ML INJ ONE (09:23)
[2021-03-08] MEDS ORDERED: ROCURONIUM 50 MG/5 ML VIAL IV ONE (09:23)
[2021-03-08] MEDS ORDERED: BUPIVACAINE 0.5% PF 10 ML VIAL ONE (09:27)
[2021-03-08] MEDS ORDERED: SUCCINYLCHOLINE 20 MG/ML (10 ML) IV ONE (09:30)
[2021-03-08] MEDS ORDERED: CEFOXITIN/SWI 1gm 1 GM/10 ML SYR ONE (09:33)
[2021-03-08] MEDS ORDERED: NA CHLORIDE 0.9% 1,000 ML ONE (09:37)
[2021-03-08] MEDS ORDERED: dexAMETHasone 10 MG/ML VIAL ONE (09:58)
[2021-03-08] MEDS ORDERED: ONDANSETRON 4 MG/2 ML VIAL ONE (09:59)
[2021-03-08] MEDS ORDERED: KETOROLAC 30 MG/ML INJ ONE (09:59)
--- NOTE | 2021-03-08 10:08 | P.BOP ---
Preoperative diagnosis: acute cholecystitis, symptomatic cholelithiasis Postoperative diagnosis: same Primary procedure: Laparoscopic cholecystectomy Fish Packer: NILSON MCELROY (MAIL CARRIER TECHNICIAN) Estimated blood loss: <10cc Specimen: GB Findings: as above Anesthesia: General Complications: None Transferred to: Recovery Room Condition: Good
[2021-03-08] MEDS ORDERED: GLYCOPYRROLATE 0.2 MG/ML SYR ONE ×2 (10:22→10:26)
[2021-03-08] MEDS ORDERED: NEOSTIGMINE 1 MG/ML -5 ML ONE (10:27)
[2021-03-08] MEDS: HYDROMORPHONE HCL 1 MG/ML INJ ONE ×2 (10:29→10:41)
--- NOTE | 2021-03-08 10:41 | OP ---
Date of Procedure: 03/08/2021 Surgeon: Kashif Marie MD Loss Prevention Operations Manager: Ros Tapia. Preoperative Diagnoses: Acute cholecystitis, symptomatic cholelithiasis, right upper quadrant abdomi nal pain. Postoperative Diagnoses: Acute cholecystitis, symptomatic cholelithiasis, right upper quadrant abdom inal pain. Procedure: Laparoscopic cholecystectomy. Estimated Blood Loss: Less than 10 mL. Anesthesia: General plus local. Indication: This is the case of a female, who comes to us with multiple medical problems, came initi ally with a right upper quadrant pain going to the chest. She had extensive workup not only here but at another institution not too long ago. She was cleared by the cardiac standpoint from any cardiac symptoms at this moment. They still believe it is a gallbladder. We evaluated the patient. The pa raudel was told before also the problem with the gallbladder, but she has not been able to address the issue. In the last few hours, she was cleared by the cardiac standpoint, so we offered her laparosc opic possible open cholecystectomy with benefits, alternatives, and risks including, but not limited to infection, bleeding, damage to adjacent structures, anesthesia complication, choledocholithiasis, bile leak, pancreatitis, IA, and even . She also understands this may not relieve any symptoms. She might need more than one surgical intervention. She understood, signed a consent. Procedure In Detail: The patient was brought to the operating room, placed in supine position. Anes thesia was done without complication. Abdominal area was prepped and draped in usual sterile fashion . Marcaine 0.5% was injected for local anesthetic followed by sharp incision of the skin in the supr aumbilical region. The patient has ventral hernias, although may require a mesh repair due to the fa scia and weakness, we might have to address that another situation, so we put the incision above the area. A #1 placed inside the fascia. Ellen trocar was carefully introduced. Pneumoperitoneum was obtained. I placed 3 more trocars, 5 mm each one of them, 1 in epigastric area and 2 in the right up per quadrant using same technique, which was consisted of local anesthetic, sharp incision of the ski n and introduction of the trocars under direct vision. This allowed me to put a grasper in the fundu s of the gallbladder, another grasper in the infundibulum retracting the gallbladder in the inferolat eral fashion exposing the triangle of Calot and obtaining critical view. Cystic duct and cystic tanika ry were clearly isolated, freed circumferentially and a connection between those and the gallbladder were clearly identified. I proceeded to ligate those by using at least 3 clips proximal, 1 clip dist al, ligation in middle. Same was done with the cystic artery. No bile leak, no bleeding. The gallb ladder was removed from liver using Bovie cauterizer and removed from abdominal cavity using EndoCatc h through the umbilical incision. The area was inspected once again. No bile leak, no bleeding. At that moment, I proceeded to remove the trocars under direct vision. Deflated pneumoperitoneum. Nivia sed the fascia with #1 Vicryl. Irrigated the subcutaneous tissue, closed that with 3-0 chromic and s kin with cha. Sponge count and instrument counts correct. The patient tolerated the procedure w ell. The patient was sent to recovery in stable condition. ARIC/LUIS CARLOS Voice ID: [id number] Report ID: [id number]
[2021-03-08 10:55] VITALS: O2SAT 93
[2021-03-08] MEDS ORDERED: DIAZEPAM 10 MG/2 ML INJ SYRINGE IV ONE (11:29)
[2021-03-08] MEDS: hydroCHLOROthiazide 12.5 MG CAP PO SCH (11:32)
[2021-03-08] MEDS: LOSARTAN POTASSIUM 50 MG TABLET PO SCH (11:32)
[2021-03-08] MEDS: HYDROCODONE/APAP 10/325 TAB PO PRN (11:42)
--- NOTE | 2021-03-08 12:11 | P.PN ---
Subjective Date of Service: 03/08/21 Primary Care Provider: Dr. Castillo, cardiology Dr. Thomas Chief Complaint: Chest pain, abdominal pain Subjective: No new changes (had upper abdominal / lower sternal pain last night again. no nauesa/vomiting, no diarrhea. scheduled for lap sadie this morning) Review of Systems 10-point ROS is otherwise unremarkable Physical Examination - Vital Signs Temperature: 97.8 F Blood Pressure: 156/77 Pulse: 63 Respirations: 18 Pulse Ox (%): 98 Assessment & Plan Physician Review Additional Text: Physical Exam General: NAD, AAOx3, morbidly obese HEENT: Normal conjunctiva, sclera anicteric Respiratory: Clear to auscultation bilaterally, Normal air movement Cardiovascular: Regular rate/rhythm, Normal S1 S2 Gastrointestinal: moderate RUQ & epigastric tenderness to palpation, non- distended Musculoskeletal: No joint tenderness Integumentary: No rashes Problem List Lower Chest pain, ruled out ACS RUQ Abdominal pain/tenderness Cholelithiasis, with biliary colic and inability to tolerate PO Diabetes mellitus type 2, non-insulin dependent Hypertension Hyperlipidemia Chronic back pain s/p L nephrectomy no change in symptoms with protonix/carafate troponin negative x3, does not sound cardiac in nature. Cardiology consulted. Confirmed with patient's management instructor, recent cardiac catheterization November 2020 with mild/nonobstructive CAD pain more epigastrium/RQQ, with significant tenderness in RUQ lipase normal, CT and U/S without obvious signs of cholecystitis, +cholelithiasis biliary colic type of pain the last 2-3 nights general surgery consulted, plan for lap sadie today NPO for surgery Dispo: anticipate dc home in ~24hrs Time Spent Managing Pts Care (In Minutes): 35
[2021-03-08] MEDS: DOXEPIN HCL 3 MG PO SCH (21:00)
[2021-03-09 03:55] LABS: Absolute Lymphocytes (CBC) 1.5 K/uL (0.7-4.9); Basophils % 0.2 % (0-1.3); Hematocrit 37.8 % (36.0-45.0); Lymphocytes % 14.8 % (15.3-44.8); MPV 7.3 fL (7.6-11.3); RBC Red Blood Cell Count 4.35 M/uL (3.86-4.86)
[2021-03-09 04:28] LABS: Albumin 3.1 g/dL (3.4-5.0); Bilirubin Total 0.5 mg/dL (0.2-1.0); Magnesium 1.8 mg/dL (1.8-2.4); Potassium 4.5 mmol/L (3.5-5.1); Protein, Total 6.1 g/dL (6.4-8.2)
[2021-03-09] MEDS: PANTOPRAZOLE 40MG TABLET PO SCH (05:56)
[2021-03-09] MEDS: INSULIN -REGULAR HUMAN 50 UNIT/0.5 ML ML SQ SCH ×2 (07:30→11:30)
[2021-03-09] MEDS: LOSARTAN POTASSIUM 50 MG TABLET PO SCH (08:46)
[2021-03-09] MEDS: hydroCHLOROthiazide 12.5 MG CAP PO SCH (08:46)
[2021-03-09] MEDS: ASPIRIN EC 81 MG TAB PO SCH (08:46)
[2021-03-09] MEDS: NYSTATIN PWDR 100000 UNIT/GM TOP SCH (08:47)
[2021-03-09] MEDS: ACETAMINOPHEN 500 MG TAB PO PRN (08:47)
[2021-03-09] MEDS: HYDROCODONE/APAP 10/325 TAB PO PRN (11:51)
--- NOTE | 2021-03-09 12:32 | P.DS ---
Admission Date: 03/06/21 Discharge Date: 03/09/21 Primary Care Provider: Dr. Castillo, cardiology Dr. Thomas Disposition: ROUTINE DISCHARGE Discharge Condition: FAIR Reason for Admission: Chest pain, abdominal pain Brief History of Present Illness: 60-year-old woman with a past medical history of chronic back pain presented to the emergency department with a complaint of chest pain, abdominal pain, nausea, diaphoresis. She had cardiac catheterization done recently and was told she has only mild plaque. No cardiac intervention. Dr. Thomas in [place] was the diamond powder technician. Patient was evaluated in the emergency department, labs were significant for white blood cell count 10.2 hematocrit 45.6 hemoglobin 15.2 troponin negative creatinine 1.35 GFR 40 glucose [address] chest abdomen pelvis negative for any acute findings. Noted to have mild right upper quadrant tenderness. Ultrasound demonstrates a 7 mm gallstone. Patient admitted for further management. Hospital Course: Patient admitted to the medical floor. Troponin trended negative. Patient was seen in consultation by cardiology-Dr. Mendes. Patient confirmed she had recent cardiac catheterization with 3 Coronary arteries. ACS ruled out. Patient suspected to have acute cholecystitis. Seen by general surgery and underwent a lap cholecystectomy. She was monitored 24 hr postop with no event. Patient deemed stable for discharge today. Vital Signs/Physical Exam: Temp Pulse Resp BP Pulse Ox 97.4 F 51 18 129/71 94 03/09/21 08:00 03/09/21 08:00 03/09/21 08:00 03/09/21 08:00 03/09/21 08:00 General: Alert, In no apparent distress, Oriented x3, Obese HEENT: Mucous membr. moist/pink Neck: JVD not distended Respiratory: Clear to auscultation bilaterally, Normal air movement Cardiovascular: No edema, Normal pulses, Normal S1 S2 Capillary refill: <2 Seconds Gastrointestinal: Soft and benign, Non-distended Musculoskeletal: No swelling Integumentary: No rashes Neurological: Normal strength at 5/5 x4 extr Laboratory Data at Discharge: WBC 10.50 K/uL (4.3-10.9) D 03/09/21 03:12 Hgb 13.1 g/dL (12.0-15.0) 03/09/21 03:12 Hct 37.8 % (36.0-45.0) 03/09/21 03:12 Plt Count 221 K/uL (152-406) 03/09/21 03:12 PT 12.3 SECONDS (9.5-12.5) 03/08/21 05:21 INR 1.07 03/08/21 05:21 Sodium 138 mmol/L (136-145) 03/09/21 03:12 Potassium 4.5 mmol/L (3.5-5.1) 03/09/21 03:12 BUN 7 mg/dL (7-18) 03/09/21 03:12 Creatinine 0.97 mg/dL (0.55-1.3) 03/09/21 03:12 Glucose 173 mg/dL (74-106) H 03/09/21 03:12 Magnesium 1.8 mg/dL (1.8-2.4) 03/09/21 03:12 Total Bilirubin 0.5 mg/dL (0.2-1.0) 03/09/21 03:12 AST 43 U/L (15-37) H 03/09/21 03:12 ALT 79 U/L (12-78) H 03/09/21 03:12 Alkaline Phosphatase 61 U/L (45-117) 03/09/21 03:12 Troponin I < 0.02 ng/mL (0.0-0.045) 03/08/21 17:27 Triglycerides 485 mg/dL (<150) H 03/05/21 04:45 Cholesterol 201 mg/dL (<200) H 03/05/21 04:45 LDL Cholesterol Direct 100 mg/dL (100-129) 03/05/21 04:45 HDL Cholesterol 24 mg/dL (40-60) L 03/05/21 04:45 Cholesterol/HDL Ratio 8.38 03/05/21 04:45 Lipase 123 U/L (73-393) 03/04/21 17:30 Home Medications: Metformin ER [Glucophage ER*] 750 mg PO BID 08/25/18 Nebivolol HCl [Bystolic*] 5 mg PO BID 08/25/18 Cholecalciferol (Vitamin D3) [Vitamin D3] 50,000 unit PO EVERY 7TH DAY 03/05/21 Doxepin HCl 3 mg PO BEDTIME 03/05/21 Dulaglutide [Trulicity] 0.75 mg SQ EVERY 7TH DAY 03/05/21 Glimepiride 4 mg PO DAILY 03/05/21 Losartan/Hydrochlorothiazide [Losartan-Hctz 100-12.5 mg Tab] 1 tab PO DAILY 03/05/21 Metoprolol Succinate [Toprol Xl] 200 mg PO DAILY 03/05/21 Quinine Sulfate [Qualaquin] 324 mg PO BEDTIME 03/05/21 Hydrocodone 5/APAP 325 [[place] 5/325] 1 tab PO Q6H PRN #15 tab 03/09/21 Nystatin Powder [Mycostatin (Powder)*] 1 appl TOP BID #1 btl 03/09/21 New Medications: Nystatin Powder [Mycostatin (Powder)*] 1 appl TOP BID #1 btl Hydrocodone 5/APAP 325 [[place] 5/325] 1 tab PO Q6H PRN #15 tab PRN Reason: Pain Diet: AHA Activity: Ad lindsey Followup: Kashif Marie MD [ACTIVE - CAN ADMIT] - (Within 1 week.) J LuisOTLORRI [Primary Care Provider] - Time spent managing pt's care (in minutes): 32
[2021-03-09 13:15] VITALS: BP 142/99; TEMP 98.3
== END 2021-03-09 13:25 | disposition home or self-care (01) | DRG 418 ==
LOC: ER 13:04 → ERHOLD 18:53 → 2ND 03-05 12:57 → OBSVTOIN 03-06 15:57
PROVIDERS: ADMIT Hospitalist; ATTEND Hospitalist
PROC: 0FT44ZZ Resection of Gallbladder, Percutaneous Endoscopic Approach (ICD-10-PCS; principal; 2021-03-08 11:30)
DX: K80.00 Calculus of gallbladder with acute cholecystitis without obstruction (principal); Z68.42 Body mass index [BMI] 45.0-49.9, adult; N17.9 Acute kidney failure, unspecified; E11.9 Type 2 diabetes mellitus without complications; I10 Essential (primary) hypertension; E78.5 Hyperlipidemia, unspecified; M54.9 Dorsalgia, unspecified; Z90.5 Acquired absence of kidney; I25.10 Atherosclerotic heart disease of native coronary artery without angina pectoris; K43.9 Ventral hernia without obstruction or gangrene; E66.01 Morbid (severe) obesity due to excess calories; Z20.822 Contact with and (suspected) exposure to COVID-19
CPT/HCPCS: 36415; 71045; 71260; 74177; 76705; 80048; 80053; 80061; 80076; 81003; 82565; 82947; 83690; 83735; 83880; 84439; 84443; 84484; 85025; 85610; 87086; 87088; 88304; 93005; 94010; 96361; 96365; 96366; 96375; 99284; G0378; J0330; J1100; J1170; J1200; J1650; J2250; J2405; J2704; J2710; J3010; J3360; J3475; J3480; J7030; J7040; Q9967; U0003

== ENCOUNTER 2021-09-25 12:51 | Emergency (ER) | payer BC ==
--- OUTSIDE RECORDS SUMMARY | 2021-09-25 13:01 | XMS REPORT | Continuity of Care Document ---
:1960 Author Organization [facility] t Address [address] [place] [address] Care Team Providers Name Role Phone GUNJAN Attending Clinician Unavailable A_Byrd Attending Clinician Unavailable Thelma ROSEN Attending Clinician Unavailable Thelma Rosen MD Attending Clinician Pob, Lab Main Attending Clinician Unavailable Doctor Unassigned, Name Attending Clinician Unavailable Vijay JEAN Attending Clinician Unavailable Vijay Jean MD Attending Clinician Jules CLAIRE Attending Clinician LETTY SINGH Attending Clinician Unavailable BRYANNA VILLATORO Attending Clinician Unavailable CLARENCE ESCALERA Attending Clinician Unavailable CHRIS IVORY Attending Clinician Unavailable ALETHEA Attending Clinician Unavailable ASHUTOSH DACOSTA Attending Clinician Unavailable GUNJAN Admitting Clinician Unavailable A_Byrd Admitting Clinician Unavailable CLARENCE ESCALERA Admitting Clinician Unavailable LIZZETH MEJÍA Admitting Clinician Unavailable CHRIS IVORY Admitting Clinician Unavailable ALETHEA Admitting Clinician Unavailable Payers Payer Name Policy Type Policy Number Effective Date Expiration Date S [place] [id number] 2017 00:00:00 [facility] [id number] [id number] [place] [id number] 2016 ADVANTAGE (HMO) 00:00:00 DARS [id number] HIM BCBS BLUE [id number] 2018 ADVANTAGE HMO 00:00:00 Problems Condition Condition Condition Status Onset Resolution Last Treating Co mments Source Name Details Category Date Date Treatment Clinician Date Bipolar II Bipolar II Problem Active 2020-08 [place] disorder Disorder 1-18 [facility] Chronic Chronic Problem Active 2020-08 [place] post-traum Post-traum 1-18 da atic atic 00:00: [facility] stress Stress 00 al disorder Disorder [facility] Blurring Blurring Problem Active [place] of visual of Visual 5-13 [...] ag[place] sweating Sweating 7-18 da 00:00: [facility] Skin Skin Problem Active [place] lesion [...] da disease Disease 00:00: Medical 00 Group Moderate Moderate Problem Active 2017-08 [place] recurrent Recurrent 1-05 da major Major 00:00: [facility] depression Depression 00 [facility] Puncture Puncture Problem Active 2017-08 [place] wound of Wound of 0-15 da foot Foot 00:00: Medical 00 Group Strain of Strain of Problem Active 2017-08 [place] knee Knee 0-02 da 00:00: Medical 00 Group Chronic Chronic Problem Active [place] low back Low Back 9-18 da pain Pain 00:00: Medical Group Strain of Strain of Problem Active [place] muscle of Muscle of 8-13 da right Right 00:00: Medical shoulder Shoulder 00 Group Chronic Chronic Problem Active [place] depression Depression 6-21 da 00:00: Medical 00 Group Dizziness Dizziness Problem Active [place] of unknown of Unknown 5-16 da cause Cause 00:00: Medical Group Tremor Tremor Problem Active [place] 5-16 da 00:00: [facility] Group History of History of Problem Active [place] sepsis Sepsis 5-16 da 00:00: Medical 00 Group Type 2 Type 2 Problem Active [place] diabetes Diabetes 3-29 da mellitus Mellitus 00:00: Medica l without without 00 Group complicati Complicati on on Edema Edema Problem Active [place] 3-29 da 00:00: Medical 00 Group Diverticul Diverticul Problem Active [facility] [place] itis itis 2-27 da 00:00: Medical 00 Group Lethargy Lethargy Problem Active [place] 1-29 da 00:00: Medical 00 Group Urinary Urinary Problem Active 2016-08 [place] tract Tract 0-02 da infectious Infectious 00:00: Sc dical disease Disease 00 Group Candidiasi Candidiasi Problem Active M [place] s of skin s of Skin 8-08 da 00:00: Medical 00 Group 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 00:00: Medical 00 Group Chronic Chronic Problem Active [place] kidney Kidney 6-29 da disease Disease 00:00: Medical 00 Group Hypertrigl Hypertrigl Problem Active [facility] [place] yceridemia yceridemia 2-17 da 00:00: Medical 00 Group Hyperlipid Hyperlipid Problem Active M [place] emia emia 2-16 da 00:00: Medical 00 Group Chronic Chronic Problem Active [place] anxiety Anxiety 216 da 00:00: Medical 00 Group Essential Essential Problem Active [place] hypertensi Hypertensi 1-30 da on on 00:00: Medical 00 Group Allergies, Adverse Reactions, Alerts Allergy Allergy Status Severity Reaction(s) Onset Inactive Treating Comm ents Source Name Type Date Date Clinician No Known DA Active U [facility] Drug 4-16 Allergie 00:00: s 00 Miconazo Propensi Active Other - See Patient Univers le ty to comments 2-05 states ity of Nitrate adverse 00:00: she [place] reaction 00 cannot Medical s have any Branch Anti fungal medicatio n unless given via IV MICONAZO DRUG Active High Other-Cmnt Univ ers LE INGREDI 2-05 ity of NITRATE 00:00: [place] [facility] DIPHENHY DRUG Active High Anaphylaxis Uni vers DRAMINE INGREDI 2-05 ity of HCL 00:00: [place] [facility] MEPERIDI DRUG Active High Other-Cmnt Univ ers NE HCL INGREDI 2-05 ity of 00:00: [place] 00 Medical Branch MORPHINE DRUG Active High Other-Cmnt Univ ers INGREDI 2-05 ity of 00:00: [place] 00 Medical Branch Diphenhy Propensi Active Anaphylaxis 2018- U nivers dramine ty to 2-05 ity of Hcl adverse 00:00: [place] reaction 00 Medical s Branch Meperidi Propensi Active Other - See Patient Univers ne Hcl ty to comments 2-05 states ity of adverse 00:00: she [place] reaction 00 becomes Medical s very Branch aggressiv e Morphine Propensi Active Other - See Patient Univers ty to comments 2-05 states ity of adverse 00:00: she [place] reaction 00 becomes Medical s very Branch aggressiv e Benadryl Allergy Active [place] to da substanc Medical e Group Demerol Allergy Active [place] to da substanc Medical e Group Diflucan Allergy Active Hives [place] to da substanc Medical e Group Morphine Allergy Active [place] to da substanc Medical e Group Social History Social Habit Start Date Stop Date Quantity Comments Source Exposure to Not sure University of SARS-CoV-2 [facility] (event) Branch Sex Assigned At [facility] y of [facility] Tobacco use and 2019-07-19 2019-07-19 Never used [facility] y of exposure 00:00:00 00:00:00 [facility] Alcohol intake 2019-07-19 2019-07-19 Current University 00:00:00 00:00:00 non-drinker of [facility] alcohol Branch (finding) Smoking Status Start Date Stop Date Source Heavy Tobacco Smoker [facility] Current every day smoker 2019-07-19 00:00:00 Uni versity [facility] Medications Ordered Filled Start Stop Current Ordering Indication Dosage Frequency Signature Comments Components Source Medication Medication Date Date Medication? Clinician (SIG) Name Name gadoteridol 2019-08 2020- No .2mL/kg 0.2 mL/kg, Univers (PROHANCE-2 08-13 Intravenou i ty of 0 mL) 17:00: 17:32 s, ONCE, 1 [place] injection 00 :00 dose, [facility] al 0.2 mL/kg 08/13/20 Branch at 1100, Routine METFORMIN 2020-0 Yes [id number] TAKE ONE Univers ER 750 mg 7-02 (1) ity of 24 hr 00:00: TABLET(S) [place] tablet 00 BY MOUTH Medical ONCE A DAY Branch WITH BREAKFAST. METFORMIN 2020-0 Yes [id number] TAKE ONE Univers ER 750 mg 7-02 (1) ity of 24 hr 00:00: TABLET(S) [place] tablet 00 BY MOUTH Medical ONCE A DAY Branch WITH BREAKFAST. METFORMIN 2020-0 Yes [id number] TAKE ONE Univers ER 750 mg 7-02 (1) ity of 24 hr 00:00: TABLET(S) [place] tablet 00 BY MOUTH Medical ONCE A DAY Branch WITH BREAKFAST. METFORMIN 2020-0 Yes [id number] TAKE ONE Univers ER 750 mg 7-02 (1) ity of 24 hr 00:00: TABLET(S) [place] tablet 00 BY MOUTH Medical ONCE A DAY Branch WITH BREAKFAST. METFORMIN 2020-0 Yes [id number] TAKE ONE Univers ER 750 mg 7-02 (1) ity of 24 hr 00:00: TABLET(S) [place] tablet 00 BY MOUTH Medical ONCE A DAY Branch WITH BREAKFAST. METFORMIN 2020-0 Yes [id number] TAKE ONE Univers ER 750 mg 7-02 (1) ity of 24 hr 00:00: TABLET(S) [place] tablet 00 BY MOUTH Medical ONCE A DAY Branch WITH BREAKFAST. METFORMIN 2020-0 Yes [id number] TAKE ONE Univers ER 750 mg 7-02 (1) ity of 24 hr 00:00: TABLET(S) [place] tablet 00 BY MOUTH Medical ONCE A DAY Branch WITH BREAKFAST. METFORMIN 2020-0 Yes [id number] TAKE ONE Univers ER 750 mg 7-02 (1) ity of 24 hr 00:00: TABLET(S) [place] tablet 00 BY MOUTH Medical ONCE A DAY Branch WITH BREAKFAST. METFORMIN 2020-0 Yes [id number] TAKE ONE Univers ER 750 mg 7-02 (1) ity of 24 hr 00:00: TABLET(S) [place] tablet 00 BY MOUTH Medical ONCE A DAY Branch WITH BREAKFAST. METFORMIN 2020-0 Yes [id number] TAKE ONE Univers ER 750 mg 7-02 (1) ity of 24 hr 00:00: TABLET(S) [place] tablet 00 BY MOUTH Medical ONCE A DAY Branch WITH BREAKFAST. METFORMIN 2020-0 Yes [id number] TAKE ONE Univers ER 750 mg 7-02 (1) ity of 24 hr 00:00: TABLET(S) [place] tablet 00 BY MOUTH Medical ONCE A DAY Branch WITH BREAKFAST. EZETIMIBE 2020-0 Yes [id number] TAKE ONE Univers 10 mg 5-04 (1) ity of tablet 00:00: TABLET(S) [place] 00 BY MOUTH Medical ONCE A Branch DAY. EZETIMIBE 2020-0 Yes [id number] TAKE ONE Univers 10 mg 5-04 (1) ity of tablet 00:00: TABLET(S) [place] 00 BY MOUTH Medical ONCE A Branch DAY. EZETIMIBE 2020-0 Yes [id number] TAKE ONE Univers 10 mg 5-04 (1) ity of tablet 00:00: TABLET(S) [place] 00 BY MOUTH Medical ONCE A Branch DAY. EZETIMIBE 2020-0 Yes [id number] TAKE ONE Univers 10 mg 5-04 (1) ity of tablet 00:00: TABLET(S) [place] 00 BY MOUTH Medical ONCE A Branch DAY. EZETIMIBE 2020-0 Yes [id number] TAKE ONE Univers 10 mg 5-04 (1) ity of tablet 00:00: TABLET(S) [place] 00 BY MOUTH Medical ONCE A Branch DAY. EZETIMIBE 2020-0 Yes [id number] TAKE ONE Univers 10 mg 5-04 (1) ity of tablet 00:00: TABLET(S) [place] 00 BY MOUTH Medical ONCE A Branch DAY. EZETIMIBE 2020-0 Yes [id number] TAKE ONE Univers 10 mg 5-04 (1) ity of tablet 00:00: TABLET(S) [place] 00 BY MOUTH Medical ONCE A Branch DAY. EZETIMIBE 2020-0 Yes [id number] TAKE ONE Univers 10 mg 5-04 (1) ity of tablet 00:00: TABLET(S) [place] 00 BY MOUTH Medical ONCE A Branch DAY. EZETIMIBE 2020-0 Yes [id number] TAKE ONE Univers 10 mg 5-04 (1) ity of tablet 00:00: TABLET(S) [place] 00 BY MOUTH Medical ONCE A Branch DAY. EZETIMIBE 2020-0 Yes [id number] TAKE ONE Univers 10 mg 5-04 (1) ity of tablet 00:00: TABLET(S) [place] 00 BY MOUTH Medical ONCE A Branch DAY. EZETIMIBE 2020-0 Yes [id number] TAKE ONE Univers 10 mg 5-04 (1) ity of tablet 00:00: TABLET(S) [place] 00 BY MOUTH Medical ONCE A Branch DAY. EZETIMIBE 2020-0 Yes [id number] TAKE ONE Univers 10 mg 5-04 (1) ity of tablet 00:00: TABLET(S) [place] 00 BY MOUTH Medical ONCE A Branch DAY. METFORMIN 2020-0 Yes [id number] TAKE ONE Univers ER 750 mg 4-03 (1) ity of 24 hr 00:00: TABLET(S) [place] tablet 00 BY MOUTH Medical ONCE A DAY Branch WITH BREAKFAST. METFORMIN 2020-0 Yes [id number] TAKE ONE Univers ER 750 mg 4-03 (1) ity of 24 hr 00:00: TABLET(S) [place] tablet 00 BY MOUTH Medical ONCE A DAY Branch WITH BREAKFAST. METFORMIN 2020-0 2020- No [id number] TAKE ONE Univers ER 750 mg 4-03 07-02 (1) ity of 24 hr 00:00: 00:00 TABLET(S) [place] tablet 00 :00 BY MOUTH Medical ONCE A DAY Branch WITH BREAKFAST. METFORMIN 2020-0 2020- No [id number] TAKE ONE Univers ER 750 mg 4-03 -02 (1) ity of 24 hr 00:00: 00:00 TABLET(S) [place] tablet 00 :00 BY MOUTH Medical ONCE A DAY Branch WITH BREAKFAST. dulaglutide 2018-08 Yes [id number] .75mg inject Univers (TRULICITY) 2-06 0.75 mg ity o f 0.75 mg/0.5 00:00: under the [place] mL PnIj 00 skin Medical weekly. Branch dulaglutide 2018-08 Yes [id number] .75mg inject Univers (TRULICITY) 2-06 0.75 mg ity o f 0.75 mg/0.5 00:00: under the [place] mL PnIj 00 skin Medical weekly. Branch dulaglutide 2018-08 Yes [id number] .75mg inject Univers (TRULICITY) 2-06 0.75 mg ity o f 0.75 mg/0.5 00:00: under the [place] mL PnIj 00 skin Medical weekly. Branch dulaglutide 2018-08 Yes [id number] .75mg inject Univers (TRULICITY) 2-06 0.75 mg ity o f 0.75 mg/0.5 00:00: under the [place] mL PnIj 00 skin Medical weekly. Branch dulaglutide 2018-08 Yes [id number] .75mg inject Univers (TRULICITY) 2-06 0.75 mg ity o f 0.75 mg/0.5 00:00: under the [place] mL PnIj 00 skin Medical weekly. Branch dulaglutide 2018-08 Yes [id number] .75mg inject Univers (TRULICITY) 2-06 0.75 mg ity o f 0.75 mg/0.5 00:00: under the [place] mL PnIj 00 skin Medical weekly. Branch dulaglutide 2018-08 Yes [id number] .75mg inject Univers (TRULICITY) 2-06 0.75 mg ity o f 0.75 mg/0.5 00:00: under the [place] mL PnIj 00 skin Medical weekly. Branch dulaglutide 2018-08 Yes [id number] .75mg inject Univers (TRULICITY) 2-06 0.75 mg ity o f 0.75 mg/0.5 00:00: under the [place] mL PnIj 00 skin Medical weekly. Branch dulaglutide 2018-08 Yes [id number] .75mg inject Univers (TRULICITY) 2-06 0.75 mg ity o f 0.75 mg/0.5 00:00: under the [place] mL PnIj 00 skin Medical weekly. Branch dulaglutide 2018-08 Yes [id number] .75mg inject Univers (TRULICITY) 2-06 0.75 mg ity o f 0.75 mg/0.5 00:00: under the [place] mL PnIj 00 skin Medical weekly. Branch ezetimibe 2018-08 Yes [id number] 10mg Take 1 U nivers 10 mg 2-06 tablet by ity of tablet 00:00: mouth [place] 00 daily. Medical Branch dulaglutide 2018-08 Yes [id number] .75mg inject Univers (TRULICITY) 2-06 0.75 mg ity o f 0.75 mg/0.5 00:00: under the [place] mL PnIj 00 skin Medical weekly. Branch dulaglutide 2018-08 Yes [id number] .75mg inject Univers (TRULICITY) 2-06 0.75 mg ity o f 0.75 mg/0.5 00:00: under the [place] mL PnIj 00 skin Medical weekly. Branch dulaglutide 2018-08 Yes [id number] .75mg inject Univers (TRULICITY) 2-06 0.75 mg ity o f 0.75 mg/0.5 00:00: under the [place] mL PnIj 00 skin Medical weekly. Branch ezetimibe 2018-08 2020- No [id number] 10mg Take 1 Univers 10 mg 2- 05-04 tablet by ity of tablet 00:00: 00:00 mouth [place] 00 :00 daily. Medical Branch metformin 2018-08 2020- No [id number] 750mg Take 1 Univers ER 750 mg 2- 04-03 tablet by ity of 24 hr 00:00: 00:00 mouth [place] tablet 00 :00 daily with Medical breakfast. Branch Lancets Yes Use as Univers (MICROLET 8-20 directed, ity o f LANCET) 00:00: TID, [place] Misc 00 DX:E11.9 Medical Branch blood sugar Yes Use as Univ ers diagnostic 8-20 directed, ity of (CONTOUR 00:00: TID, [place] NEXT TEST 00 DX:E11.9 Medica l STRIPS) Branch strip Lancets 2019-0 Yes Use as Univers (MICROLET 8-20 directed, ity o f LANCET) 00:00: TID, [place] Misc 00 DX:E11.9 Medical Branch blood sugar 2019-0 Yes Use as Univ ers diagnostic 8-20 directed, ity of (CONTOUR 00:00: TID, [place] NEXT TEST 00 DX:E11.9 Medica l STRIPS) Branch strip Lancets 2019-0 Yes Use as Univers (MICROLET 8-20 directed, ity o f LANCET) 00:00: TID, [place] Misc 00 DX:E11.9 Medical Branch blood sugar 2019-0 Yes Use as Univ ers diagnostic 8-20 directed, ity of (CONTOUR 00:00: TID, [place] NEXT TEST 00 DX:E11.9 Medica l STRIPS) Branch strip Lancets 2019-0 Yes Use as Univers (MICROLET 8-20 directed, ity o f LANCET) 00:00: TID, [place] Misc 00 DX:E11.9 Medical Branch blood sugar 2019-0 Yes Use as Univ ers diagnostic 8-20 directed, ity of (CONTOUR 00:00: TID, [place] NEXT TEST 00 DX:E11.9 Medica l STRIPS) Branch strip Lancets 2019-0 Yes Use as Univers (MICROLET 8-20 directed, ity o f LANCET) 00:00: TID, [place] Misc 00 DX:E11.9 Medical Branch blood sugar 2019-0 Yes Use as Univ ers diagnostic 8-20 directed, ity of (CONTOUR 00:00: TID, [place] NEXT TEST 00 DX:E11.9 Medica l STRIPS) Branch strip Lancets 2019-0 Yes Use as Univers (MICROLET 8-20 directed, ity o f LANCET) 00:00: TID, [place] Misc 00 DX:E11.9 Medical Branch blood sugar 2019-0 Yes Use as Univ ers diagnostic 8-20 directed, ity of (CONTOUR 00:00: TID, [place] NEXT TEST 00 DX:E11.9 Medica l STRIPS) Branch strip Lancets 2019-0 Yes Use as Univers (MICROLET 8-20 directed, ity o f LANCET) 00:00: TID, [place] Misc 00 DX:E11.9 Medical Branch blood sugar 2019-0 Yes Use as Univ ers diagnostic 8-20 directed, ity of (CONTOUR 00:00: TID, [place] NEXT TEST 00 DX:E11.9 Medica l STRIPS) Branch strip Lancets 2019-0 Yes Use as Univers (MICROLET 8-20 directed, ity o f LANCET) 00:00: TID, [place] Misc 00 DX:E11.9 Medical Branch blood sugar 2019-0 Yes Use as Univ ers diagnostic 8-20 directed, ity of (CONTOUR 00:00: TID, [place] NEXT TEST 00 DX:E11.9 Medica l STRIPS) Branch strip Lancets 2019-0 Yes Use as Univers (MICROLET 8-20 directed, ity o f LANCET) 00:00: TID, [place] Misc 00 DX:E11.9 Medical Branch blood sugar 2019-0 Yes Use as Univ ers diagnostic 8-20 directed, ity of (CONTOUR 00:00: TID, [place] NEXT TEST DX:E11.9 Medica l STRIPS) Branch strip Lancets 2019-0 Yes Use as Univers (MICROLET 8-20 directed, ity o f LANCET) 00:00: TID, [place] Misc DX:E11.9 Medical Branch blood sugar 2019-0 Yes Use as Univ ers diagnostic 8-20 directed, ity of (CONTOUR 00:00: TID, [place] NEXT TEST 00 DX:E11.9 Medica l STRIPS) Branch strip Lancets 2019-0 Yes Use as Univers (MICROLET 8-20 directed, ity o f LANCET) 00:00: TID, [place] Misc 00 DX:E11.9 Medical Branch blood sugar 2019-0 Yes Use as Univ ers diagnostic 8-20 directed, ity of (CONTOUR 00:00: TID, [place] NEXT TEST DX:E11.9 Medica l STRIPS) Branch strip Lancets 2019-0 Yes Use as Univers (MICROLET 8-20 directed, ity o f LANCET) 00:00: TID, [place] Misc 00 DX:E11.9 Medical Branch blood sugar 2019-0 Yes Use as Univ ers diagnostic 8-20 directed, ity of (CONTOUR 00:00: TID, [place] NEXT TEST 00 DX:E11.9 Medica l STRIPS) Branch strip Lancets 2019-0 Yes Use as Univers (MICROLET 8-20 directed, ity o f LANCET) 00:00: TID, [place] Misc 00 DX:E11.9 Medical Branch blood sugar 2019-0 Yes Use as Univ ers diagnostic 8-20 directed, ity of (CONTOUR 00:00: TID, [place] NEXT TEST 00 DX:E11.9 Medica l STRIPS) Branch strip Lancets Yes Use as Univers (MICROLET 8-20 directed, ity o f LANCET) 00:00: TID, [place] Misc 00 DX:E11.9 Medical Branch blood sugar Yes Use as Univ ers diagnostic 8-20 directed, ity of (CONTOUR 00:00: TID, [place] NEXT TEST 00 DX:E11.9 Medica l STRIPS) Branch strip bupropion Yes Take by Univ ers HCl 5-07 mouth. ity of (WELLBUTRIN 16:24: [place] ORAL) 02 Medical Branch bupropion Yes Take by Univ ers HCl 5-07 mouth. ity of (WELLBUTRIN 16:24: [place] ORAL) Medical Branch bupropion Yes Take by Univ ers HCl 5-07 mouth. ity of (WELLBUTRIN 16:24: [place] ORAL) 02 Medical Branch bupropion Yes Take by Univ ers HCl 5-07 mouth. ity of (WELLBUTRIN 16:24: [place] ORAL) Medical Branch bupropion Yes Take by Univ ers HCl 5-07 mouth. ity of (WELLBUTRIN 16:24: [place] ORAL) Medical Branch bupropion Yes Take by Univ ers HCl 5-07 mouth. ity of (WELLBUTRIN 16:24: [place] ORAL) 02 Medical Branch bupropion Yes Take by Univ ers HCl 5-07 mouth. ity of (WELLBUTRIN 16:24: [place] ORAL) 02 Medical Branch bupropion Yes Take by Univ ers HCl 5-07 mouth. ity of (WELLBUTRIN 16:24: [place] ORAL) 02 Medical Branch bupropion Yes Take by Univ ers HCl 5-07 mouth. ity of (WELLBUTRIN 16:24: [place] ORAL) 02 Medical Branch bupropion Yes Take by Univ ers HCl 5-07 mouth. ity of (WELLBUTRIN 16:24: [place] ORAL) 02 Medical Branch bupropion Yes Take by Univ ers HCl 5-07 mouth. ity of (WELLBUTRIN 16:24: [place] ORAL) 02 Medical Branch bupropion Yes Take by Univ ers HCl 5-07 mouth. ity of (WELLBUTRIN 16:24: [place] ORAL) [facility] bupropion Yes Take by Univ ers HCl 5-07 mouth. ity of (WELLBUTRIN 16:24: [place] ORAL) [facility] bupropion Yes Take by Univ ers HCl 5-07 mouth. ity of (WELLBUTRIN 16:24: [place] ORAL) [facility] bupropion Yes Take by Univ ers HCl 5-07 mouth. ity of (WELLBUTRIN 16:24: [place] ORAL) [facility] bupropion Yes Take by Univ ers HCl 5-07 mouth. ity of (WELLBUTRIN 16:24: [place] ORAL) [facility] escitalopra Yes 20mg Take 20 mg Univers m oxalate 5-07 by mouth ity of 20 mg 16:23: daily. [place] tablet 21 [facility] nebivolol Yes 10mg Take 10 mg Un karsten (BYSTOLIC) 5-07 by mouth ity o f 10 mg 16:23: daily. [place] tablet 21 [facility] escitalopra Yes 20mg Take 20 mg Univers m oxalate 5-07 by mouth ity of 20 mg 16:23: daily. [place] tablet 21 [facility] montelukast Yes 10mg Take 10 mg Univers 10 mg 5-07 by mouth. ity of tablet 16:23: [address] montelukast Yes 10mg Take 10 mg Univers 10 mg 5-07 by mouth. ity of tablet 16:23: [address] nebivolol Yes 10mg Take 10 mg Un karsten (BYSTOLIC) 5-07 by mouth ity o f 10 mg 16:23: daily. [place] tablet 21 [facility] escitalopra Yes 20mg Take 20 mg Univers m oxalate 5-07 by mouth ity of 20 mg 16:23: daily. [place] tablet 21 [facility] montelukast Yes 10mg Take 10 mg Univers 10 mg 5-07 by mouth. ity of tablet 16:23: [address] nebivolol Yes 10mg Take 10 mg Un karsten (BYSTOLIC) 5-07 by mouth ity o f 10 mg 16:23: daily. [place] tablet 21 [facility] escitalopra 2019-0 Yes 20mg Take 20 mg Univers m oxalate 5-07 by mouth ity of 20 mg 16:23: daily. [place] tablet 21 [facility] montelukast 2018-0 Yes 10mg Take 10 mg Univers 10 mg 5-07 by mouth. ity of tablet 16:23: [address] nebivolol 0 Yes 10mg Take 10 mg Un karsten (BYSTOLIC) 5-07 by mouth ity o f 10 mg 16:23: daily. [place] tablet 21 [facility] escitalopra 2018-0 Yes 20mg Take 20 mg Univers m oxalate 5-07 by mouth ity of 20 mg 16:23: daily. [place] tablet 21 [facility] montelukast 0 Yes 10mg Take 10 mg Univers 10 mg 5-07 by mouth. ity of tablet 16:23: [address] nebivolol 0 Yes 10mg Take 10 mg Un kasrten (BYSTOLIC) 5-07 by mouth ity o f 10 mg 16:23: daily. [place] tablet 21 [facility] escitalopra Yes 20mg Take 20 mg Univers m oxalate 5-07 by mouth ity of 20 mg 16:23: daily. [place] tablet 21 [facility] montelukast 0 Yes 10mg Take 10 mg Univers 10 mg 5-07 by mouth. ity of tablet 16:23: [address] nebivolol 0 Yes 10mg Take 10 mg Un kar[place] (BYSTOLIC) 5-07 by mouth ity o f 10 mg 16:23: daily. [place] tablet 21 [facility] escitalopra 2018- Yes 20mg Take 20 mg Univers m oxalate 5-07 by mouth ity of 20 mg 16:23: daily. [place] tablet 21 [facility] montelukast 0 Yes 10mg Take 10 mg Univers 10 mg 5-07 by mouth. ity of tablet 16:23: [address] nebivolol 0 Yes 10mg Take 10 mg Un kar[place] (BYSTOLIC) 5-07 by mouth ity o f 10 mg 16:23: daily. [place] tablet 21 [facility] escitalopra 2018-0 Yes 20mg Take 20 mg Univers m oxalate 5-07 by mouth ity of 20 mg 16:23: daily. [place] tablet 21 [facility] montelukast 2018-0 Yes 10mg Take 10 mg Univers 10 mg 5-07 by mouth. ity of tablet 16:23: [address] nebivolol Yes 10mg Take 10 mg Un kar[place] (BYSTOLIC) 5-07 by mouth ity o f 10 mg 16:23: daily. [place] tablet 21 [facility] escitalopra 0 Yes 20mg Take 20 mg Univers m oxalate 5-07 by mouth ity of 20 mg 16:23: daily. [place] tablet 21 [facility] montelukast 0 Yes 10mg Take 10 mg Univers 10 mg 5-07 by mouth. ity of tablet 16:23: [address] nebivolol 0 Yes 10mg Take 10 mg Un kar[place] (BYSTOLIC) 5-07 by mouth ity o f 10 mg 16:23: daily. [place] tablet 21 [facility] [place] escitalopra Yes 20mg Take 20 mg Univers m oxalate 5-07 by mouth ity of 20 mg 16:23: daily. [place] tablet 21 [facility] nebivolol Yes 10mg Take 10 mg Un [place] (BYSTOLIC) 5-07 by mouth ity o f 10 mg 16:23: daily. [place] tablet 21 [facility] montelukast 0 Yes 10mg Take 10 mg Univers 10 mg 5-07 by mouth. ity of tablet 16:23: [address] escitalopra Yes 20mg Take 20 mg Univers m oxalate 5-07 by mouth ity of 20 mg 16:23: daily. [place] tablet 21 [facility] montelukast 0 Yes 10mg Take 10 mg Univers 10 mg 5-07 by mouth. ity of tablet 16:23: [address] nebivolol Yes 10mg Take 10 mg Un kar[place] (BYSTOLIC) 5-07 by mouth ity o f 10 mg 16:23: daily. [place] tablet 21 [facility] escitalopra Yes 20mg Take 20 mg Univers m oxalate 5-07 by mouth ity of 20 mg 16:23: daily. [place] tablet 21 [facility] montelukast 0 Yes 10mg Take 10 mg Univers 10 mg 5-07 by mouth. ity of tablet 16:23: [address] nebivolol 0 Yes 10mg Take 10 mg Un [place] (BYSTOLIC) 5-07 by mouth ity o f 10 mg 16:23: daily. [place] tablet 21 [facility] escitalopra 2019-0 Yes 20mg Take 20 mg Univers m oxalate 5-07 by mouth ity of 20 mg 16:23: daily. [place] tablet 21 [facility] montelukast Yes 10mg Take 10 mg Univers 10 mg 5-07 by mouth. ity of tablet 16:23: [address] nebivolol Yes 10mg Take 10 mg Un [facility] (BYSTOLIC) 5-07 by mouth ity o f 10 mg 16:23: daily. [place] tablet 21 [facility] escitalopra Yes 20mg Take 20 mg Univers m oxalate 5-07 by mouth ity of 20 mg 16:23: daily. [place] tablet [address] [place] [address] montelukast Yes 10mg Take 10 mg Univers 10 mg 5-07 by mouth. ity of tablet 16:23: [address] nebivolol Yes 10mg Take 10 mg Un karsten (BYSTOLIC) 5-07 by mouth ity o f 10 mg 16:23: daily. [place] tablet 21 [facility] escitalopra Yes 20mg Take 20 mg Univers m oxalate 5-07 by mouth ity of 20 mg 16:23: daily. [place] tablet 21 [facility] montelukast Yes 10mg Take 10 mg Univers 10 mg 5-07 by mouth. ity of tablet 16:23: [address] nebivolol Yes 10mg Take 10 mg Un kar[place] (BYSTOLIC) 5-07 by mouth ity o f 10 mg 16:23: daily. [place] tablet 21 [facility] escitalopra Yes 20mg Take 20 mg Univers m oxalate 5-07 by mouth ity of 20 mg 16:23: daily. [place] tablet 21 [facility] montelukast Yes 10mg Take 10 mg Univers 10 mg 5-07 by mouth. ity of tablet 16:23: [address] nebivolol Yes 10mg Take 10 mg Un [place] (BYSTOLIC) 5-07 by mouth ity o f 10 mg 16:23: daily. [address] metformin Yes [id number] 750mg Take 1 Univers ER 750 mg 5-07 tablet by ity o f 24 hr 00:00: mouth [place] tablet 00 daily with Medical breakfast. Branch dulaglutide Yes [id number] .75mg inject Univers (TRULICITY) 5-07 0.75 mg ity o f 0.75 mg/0.5 00:00: under the [place] mL PnIj 00 skin Medical weekly. Branch ezetimibe Yes [id number] 10mg Take 1 U nivers 10 mg 5-07 tablet by ity of tablet 00:00: mouth [place] 00 daily. Medical Branch metformin 2018- Yes [id number] 750mg Take 1 [facility] ER 750 mg 5-07 tablet by ity o f 24 hr 00:00: mouth [place] tablet 00 daily with Medical breakfast. Branch dulaglutide Yes [id number] .75mg inject Univers (TRULICITY) 5-07 0.75 mg ity o f 0.75 mg/0.5 00:00: under the [place] mL PnIj 00 skin Medical weekly. Branch ezetimibe Yes [id number] 10mg Take 1 U nivers 10 mg 5-07 tablet by ity of tablet 00:00: mouth [place] 00 daily. Medical Branch metformin 2018- Yes [id number] 750mg Take 1 [facility] ER 750 mg 5-07 tablet by ity o f 24 hr 00:00: mouth [place] tablet 00 daily with Medical breakfast. Branch dulaglutide Yes [id number] .75mg inject [facility] (TRULICITY) 5-07 0.75 mg ity o f 0.75 mg/0.5 00:00: under the [place] mL PnIj 00 skin Medical weekly. Branch ezetimibe Yes [id number] 10mg Take 1 U nivers 10 mg 5-07 tablet by ity of tablet 00:00: mouth [place] 00 daily. Medical Branch CONTOUR 2019- Yes Use as Univers NEXT TEST 2-05 directed, ity o f STRIPS 00:00: TID, [place] strip 00 DX:E11.9 Medical Branch Lancets 2019-0 Yes Use as Univers (MICROLET 2-05 directed, ity o f LANCET) 00:00: TID, [place] Misc 00 DX:E11.9 Medical Branch CONTOUR 2018-0 Yes Use as Univers NEXT TEST 2-05 directed, ity o f STRIPS 00:00: TID, [place] strip 00 DX:E11.9 Medical Branch Lancets 2019-0 Yes Use as Univers (MICROLET 2-05 directed, ity o f LANCET) 00:00: TID, [place] Misc 00 DX:E11.9 Medical Branch CONTOUR 2018- No Use as Univers NEXT TEST 09-18 directed, ity of STRIPS 00:00: 00:00 TID, [place] strip 00 :00 DX:E11.9 Medical Branch Lancets 2018- No Use as Univers (MICROLET 09-18 directed, ity of LANCET) 00:00: 00:00 TID, [place] Misc 00 :00 DX:E11.9 [facility] Branch benzonatate benzonatate No 1capsul TID benzonatat [place] [...] subcutaneo s route. s route. us route. acetaminoph acetaminoph No acetaminop [place] en 300 en 300 hen 300 da mg-codeine mg-codeine mg-codeine [facility] 30 mg 30 mg 30 mg al tablet tablet tablet Health Outreac h Program amlodipine amlodipine No amlodipine [place] 10 mg 10 mg 10 mg da tablet TAKE tablet TAKE tablet [facility] ONE (1) ONE (1) TAKE ONE al TABLET(S) TABLET(S) (1) Healt h BY MOUTH BY MOUTH TABLET(S) Ou treac ONCE A DAY. ONCE A DAY. BY MOUTH h ONCE A Program DAY. Anoro Anoro No Anoro [place] Ellipta Ellipta Ellipta da 62.5 mcg-25 62.5 mcg-25 62.5 E [facility] mcg/actuati mcg/actuati mcg-25 al on powder on powder mcg/actuat Health for for ion powder Outreac inhalation inhalation for h inhalation Program azithromyci azithromyci No azithromyc [place] n 250 mg n 250 mg in 250 mg da tablet TAKE tablet TAKE tablet [facility] BY MOUTH BY MOUTH TAKE BY al DIRECTED ON DIRECTED ON MOUTH Health PACKAGE. PACKAGE. DIRECTED Out reac ON h PACKAGE. Program baclofen 10 baclofen 10 No baclofen [place] mg tablet mg tablet 10 mg da TAKE ONE TAKE ONE tablet [facility] (1) (1) TAKE ONE al TABLET(S) TABLET(S) (1) Healt h BY MOUTH BY MOUTH TABLET(S) Ou treac TWICE A TWICE A BY MOUTH h DAY. DAY. TWICE A Program DAY. Besivance Besivance No Besivance [place] 0.6 % eye 0.6 % eye 0.6 % eye da drops,suspe drops,suspe drops,susp [facility] nsion nsion ension al INSTILL ONE INSTILL ONE INSTILL Health (1) DROP(S) (1) DROP(S) ONE (1) Outreac IN RIGHT IN RIGHT DROP(S) IN h EYE TWICE A EYE TWICE A RIGHT EYE Program DAY. DAY. TWICE A DAY. bupropion bupropion No bupropion [place] HCl SR 150 HCl SR 150 HCl SR 150 da mg mg mg [facility] tablet,12 tablet,12 tablet,12 al hr hr hr Health sustained-r sustained-r sustained- Outreac elease elease release h Program bupropion bupropion No bupropion [place] HCl SR 200 HCl SR 200 HCl SR 200 da mg mg mg [facility] tablet,12 tablet,12 tablet,12 al hr hr hr Health sustained-r sustained-r sustained- Outreac elease Take elease Take release h 1 tablet(s) 1 tablet(s) Take 1 Program every day every day tablet(s) by oral by oral every day route with route with by oral meals for meals for route with 30 days. 30 days. meals for 30 days. carisoprodo carisoprodo No carisoprod [place] l 350 mg l 350 mg ol 350 mg da tablet TAKE tablet TAKE tablet [facility] ONE (1) ONE (1) TAKE ONE al TABLET(S) TABLET(S) (1) Healt h BY MOUTH BY MOUTH TABLET(S) Ou treac THREE TIMES THREE TIMES BY MOUTH h A DAY A DAY THREE Progra m NEEDED. NEEDED. TIMES A DAY NEEDED. cephalexin cephalexin No cephalexin [place] 500 mg 500 mg 500 mg da capsule capsule capsule [facility] TAKE ONE(1) TAKE ONE(1) TAKE a l CAPSULE BY CAPSULE BY ONE(1) H ealth MOUTH TWICE MOUTH TWICE CAPSULE BY Outreac DAILY FOR 7 DAILY FOR 7 MOUTH h DAYS DAYS TWICE Program DAILY FOR 7 DAYS cholecalcif cholecalcif No cholecalci [place] hannah hannah ferol da (vitamin (vitamin (vitamin Epi scop D3) 1,250 D3) 1,250 D3) 1,250 al mcg (50,000 mcg (50,000 mcg H ealth unit) unit) (50,000 Outreac capsule capsule unit) h TAKE ONE TAKE ONE capsule Prog dawna (1) (1) TAKE ONE CAPSULE(S) CAPSULE(S) (1) BY MOUTH BY MOUTH CAPSULE(S) ONCE A ONCE A BY MOUTH WEEK. WEEK. ONCE A WEEK. Ciprodex Ciprodex No Ciprodex [place] 0.3 %-0.1 % 0.3 %-0.1 % 0.3 %-0.1 da ear ear % ear [facility] drops,suspe drops,suspe drops,susp al nsion nsion ension Health Outreac h Program ciprofloxac ciprofloxac No ciprofloxa [place] in 500 mg in 500 mg ana 500 mg da tablet tablet tablet [facility] Contour Contour No Contour [place] [facility] Next Test Next Test Next Test da Strips Strips Strips [facility] CHECK CHECK CHECK al FASTING FASTING FASTING Health BLOOD SUGAR BLOOD SUGAR BLOOD Outreac DAILY. DAILY. SUGAR h DAILY. Program diazepam 5 diazepam 5 No diazepam 5 [place] mg tablet mg tablet mg tablet da [facility] diclofenac diclofenac No diclofenac [place] sodium 50 sodium 50 sodium 50 da mg mg mg [facility] tablet,jessica tablet,jessica tablet,del al yed release yed release ayed H ealth TAKE ONE TAKE ONE release Outr eac (1) (1) TAKE ONE h TABLET(S) TABLET(S) (1) Progr am BY MOUTH BY MOUTH TABLET(S) THREE TIMES THREE TIMES BY MOUTH A DAY. A DAY. THREE TIMES A DAY. doxepin 3 doxepin 3 No doxepin 3 [place] mg tablet mg tablet mg tablet da TAKE ONE TAKE ONE TAKE ONE Epi scop (1) (1) (1) al TABLET(S) TABLET(S) TABLET(S) Health BY MOUTH AT BY MOUTH AT BY MOUTH Outreac BEDTIME. BEDTIME. AT h BEDTIME. Program doxycycline doxycycline No doxycyclin [place] hyclate 100 hyclate 100 e hyclate da mg tablet mg tablet 100 mg Epi scop tablet al Health Outreac h Program Durezol Durezol No Durezol [place] [facility] 0.05 % eye 0.05 % eye 0.05 % eye da drops drops drops [facility] INSTILL ONE INSTILL ONE INSTILL al (1) DROP(S) (1) DROP(S) ONE (1) Health IN RIGHT IN RIGHT DROP(S) IN O [facility] EYE FOUR EYE FOUR RIGHT EYE h TIMES A TIMES A FOUR TIMES Pro gram DAY. DAY. A DAY. epinastine epinastine No epinastine [place] 0.05 % eye 0.05 % eye 0.05 % eye da drops drops drops [facility] escitalopra escitalopra No escitalopr [place] m 10 mg m 10 mg am 10 mg da tablet TAKE tablet TAKE tablet [facility] ONE (1) ONE (1) TAKE ONE al TABLET(S) TABLET(S) (1) Healt h BY MOUTH BY MOUTH TABLET(S) Ou treac DAILY AFTER DAILY AFTER BY MOUTH h MEALS. MEALS. DAILY Program AFTER MEALS. escitalopra escitalopra No escitalopr [place] m 20 mg m 20 mg am 20 mg da tablet TAKE tablet TAKE tablet [facility] ONE (1) ONE (1) TAKE ONE al TABLET(S) TABLET(S) (1) Healt h BY MOUTH BY MOUTH TABLET(S) Ou treac ONCE A DAY ONCE A DAY BY MOUTH h AT BEDTIME. AT BEDTIME. ONCE A DAY Program AT BEDTIME. ezetimibe ezetimibe No ezetimibe [place] 10 mg 10 mg 10 mg da tablet tablet tablet [facility] fluconazole fluconazole No fluconazol [place] 150 mg 150 mg e 150 mg da tablet TAKE tablet TAKE tablet [facility] ONE (1) ONE (1) TAKE ONE al TABLET(S) TABLET(S) (1) Healt h BY MOUTH BY MOUTH TABLET(S) Ou treac ONCE EVERY ONCE EVERY BY MOUTH h 3 DAYS. 3 DAYS. ONCE EVERY Pro gram 3 DAYS. fluconazole fluconazole No fluconazol [place] 200 mg 200 mg e 200 mg da tablet TAKE tablet TAKE tablet [facility] ONE (1) ONE (1) TAKE ONE al TABLET(S) TABLET(S) (1) Healt h BY MOUTH BY MOUTH TABLET(S) Ou treac ONCE A DAY. ONCE A DAY. BY MOUTH h ONCE A Program DAY. fluticasone fluticasone No fluticason [place] propionate propionate e da 50 50 propionate [facility] mcg/actuati mcg/actuati 50 a l on nasal on nasal mcg/actuat H ealth spray,suspe spray,suspe ion nasal Outreac nsion nsion spray,susp h ension Program gabapentin gabapentin No gabapentin [place] 300 mg 300 mg 300 mg da capsule capsule capsule [facility] TAKE ONE TAKE ONE TAKE ONE al (1) (1) (1) Health CAPSULE(S) CAPSULE(S) CAPSULE(S) Outreac BY MOUTH BY MOUTH BY MOUTH h ONCE A DAY. ONCE A DAY. ONCE A Program DAY. glimepiride glimepiride No glimepirid [place] 4 mg tablet 4 mg tablet e 4 mg da TAKE ONE TAKE ONE tablet [facility] (1) (1) TAKE ONE al TABLET(S) TABLET(S) (1) Healt h BY MOUTH BY MOUTH TABLET(S) Ou treac ONCE A DAY. ONCE A DAY. BY MOUTH h ONCE A Program DAY. glipizide 5 glipizide 5 No glipizide [place] mg tablet mg tablet 5 mg da tablet [facility] hydrocodone hydrocodone No hydrocodon [place] 10 10 e 10 da mg-acetamin mg-acetamin mg-acetami [facility] ophen 325 ophen 325 nophen 325 al mg tablet mg tablet mg tablet Health Outreac h Program hydrocodone hydrocodone No hydrocodon [place] 5 5 e 5 da mg-acetamin mg-acetamin mg-acetami [facility] ophen 325 ophen 325 nophen 325 al mg tablet mg tablet mg tablet Health TAKE ONE TAKE ONE TAKE ONE Out reac (1) (1) (1) h TABLET(S) TABLET(S) TABLET(S) Program BY MOUTH BY MOUTH BY MOUTH EVERY SIX EVERY SIX EVERY SIX HOURS HOURS HOURS NEEDED FOR NEEDED FOR NEEDED FOR PAIN. PAIN. PAIN. Ilevro 0.3 Ilevro 0.3 No Ilevro 0.3 [place] % eye % eye % eye da drops,suspe drops,suspe drops,susp [facility] nsion nsion ension [facility] levofloxaci levofloxaci No levofloxac [place] n 500 mg n 500 mg in 500 mg da tablet TAKE tablet TAKE tablet [facility] ONE TABLET ONE TABLET TAKE ONE al BY MOUTH BY MOUTH TABLET BY He alth EVERY DAY EVERY DAY MOUTH Outr eac FOR 7 DAYS FOR 7 DAYS EVERY DAY h FOR 7 DAYS Program Livalo 2 mg Livalo 2 mg No Livalo 2 [place] tablet TAKE tablet TAKE mg tablet da ONE (1) ONE (1) TAKE ONE [facility] TABLET(S) TABLET(S) (1) al BY MOUTH BY MOUTH TABLET(S) He alth ONCE A DAY. ONCE A DAY. BY MOUTH Outreac ONCE A h DAY. Program losartan losartan No losartan [place] 100 100 100 da mg-hydrochl mg-hydrochl mg-hydroch [facility] orothiazide orothiazide lorothiazi al 12.5 mg 12.5 mg de 12.5 mg Hea lth tablet TAKE tablet TAKE tablet Outreac ONE (1) ONE (1) TAKE ONE h TABLET(S) TABLET(S) (1) Progr am BY MOUTH BY MOUTH TABLET(S) ONCE A DAY. ONCE A DAY. BY MOUTH ONCE A DAY. Lotemax 0.5 Lotemax 0.5 No Lotemax [place] % eye gel % eye gel 0.5 % eye da drops drops gel drops [facility] Lotemax SM Lotemax SM No Lotemax SM [place] 0.38 % eye 0.38 % eye 0.38 % eye da gel drops gel drops gel drops [facility] CHIVO ONE CHIVO ONE CHIVO ONE al DROP INTO DROP INTO DROP INTO Health OU TID FOR OU TID FOR OU TID FOR Outreac 7 DAYS UTD 7 DAYS UTD 7 DAYS UTD h Program metformin metformin No metformin [place] 500 mg 500 mg 500 mg da tablet tablet tablet [facility] metformin metformin No metformin [place] ER 750 mg ER 750 mg ER 750 mg da tablet,exte tablet,exte tablet,ext [facility] nded nded ended al release 24 release 24 release 24 Health hr TAKE ONE hr TAKE ONE hr TAKE Outreac (1) (1) ONE (1) h TABLET(S) TABLET(S) TABLET(S) Program BY MOUTH BY MOUTH BY MOUTH TWICE A TWICE A TWICE A DAY. DAY. DAY. methocarbam methocarbam No methocarba [place] ol 500 mg ol 500 mg mol 500 mg da tablet tablet tablet [facility] methocarbam methocarbam No methocarba [place] ol 750 mg ol 750 mg mol 750 mg da tablet TAKE tablet TAKE tablet [facility] ONE (1) ONE (1) TAKE ONE al TABLET(S) TABLET(S) (1) Healt h BY MOUTH BY MOUTH TABLET(S) Ou treac EVERY EIGHT EVERY EIGHT BY MOUTH h HOURS HOURS EVERY Progra m NEEDED FOR NEEDED FOR EIGHT PAIN. PAIN. HOURS NEEDED FOR PAIN. metoprolol metoprolol No metoprolol [place] succinate succinate succinate da ER 200 mg ER 200 mg ER 200 mg [facility] tablet,exte tablet,exte tablet,ext al nded nded ended Health release 24 release 24 release 24 Outreac hr TAKE ONE hr TAKE ONE hr TAKE h (1) (1) ONE (1) Program TABLET(S) TABLET(S) TABLET(S) BY MOUTH BY MOUTH BY MOUTH ONCE A DAY. ONCE A DAY. ONCE A DAY. metronidazo metronidazo No metronidaz [place] le 500 mg le 500 mg ole 500 mg da tablet tablet tablet [facility] Microlet Microlet No Microlet [facility] Lancet Lancet Lancet da [facility] montelukast montelukast No montelukas [place] 10 mg 10 mg t 10 mg da tablet tablet tablet [facility] Myrbetriq Myrbetriq No Myrbetriq [place] 25 mg 25 mg 25 mg da tablet,exte tablet,exte tablet,ext [facility] nded nded ended al release release release Health TAKE ONE TAKE ONE TAKE ONE Out reac (1) (1) (1) h TABLET(S) TABLET(S) TABLET(S) Program BY MOUTH BY MOUTH BY MOUTH ONCE A DAY. ONCE A DAY. ONCE A DAY. nebivolol 5 nebivolol 5 No nebivolol [place] mg tablet mg tablet 5 mg da TAKE ONE TAKE ONE tablet [facility] (1) (1) TAKE ONE al TABLET(S) TABLET(S) (1) Healt h BY MOUTH BY MOUTH TABLET(S) Ou treac ONCE A DAY. ONCE A DAY. BY MOUTH h ONCE A Program DAY. nicotine 14 nicotine 14 No nicotine [place] mg/24 hr mg/24 hr 14 mg/24 da daily daily hr daily [facility] transdermal transdermal transderma al patch patch l patch Health Outreac h Program nicotine 7 nicotine 7 No nicotine 7 [place] mg/24 hr mg/24 hr mg/24 hr da daily daily daily [facility] transdermal transdermal transderma al patch patch l patch Health Outreac h Program nystatin nystatin No nystatin [place] 100,000 100,000 100,000 da unit/gram unit/gram unit/gram [facility] topical topical topical al powder powder powder Health APPLY TO APPLY TO APPLY TO Out reac AFFECTED AFFECTED AFFECTED h AREA(S) AREA(S) AREA(S) Progra m TWICE A TWICE A TWICE A DAY. DAY. DAY. omeprazole omeprazole No omeprazole [place] 40 mg 40 mg 40 mg da capsule,del capsule,del capsule,de [facility] ayed ayed layed al release release release Health TAKE ONE TAKE ONE TAKE ONE Out reac (1) (1) (1) h CAPSULE(S) CAPSULE(S) CAPSULE(S) Program BY MOUTH BY MOUTH BY MOUTH DAILY. DAILY. DAILY. ondansetron ondansetron No ondansetro [place] 4 mg 4 mg n 4 mg da disintegrat disintegrat disintegra [facility] ing tablet ing tablet ting al tablet Health Outreac h Program ondansetron ondansetron No ondansetro [place] HCl 4 mg HCl 4 mg n HCl 4 mg d a tablet tablet tablet [facility] pantoprazol pantoprazol No pantoprazo [place] e 40 mg e 40 mg le 40 mg da tablet,jessica tablet,jessica tablet,del [facility] yed release yed release ayed a l TAKE ONE TAKE ONE release Heal th (1) (1) TAKE ONE Outreac TABLET(S) TABLET(S) (1) h BY MOUTH BY MOUTH TABLET(S) Pr ogram ONCE A DAY. ONCE A DAY. BY MOUTH ONCE A DAY. Pazeo 0.7 % Pazeo 0.7 % No Pazeo 0.7 [facility] eye drops eye drops % eye da drops [facility] peg-electro peg-electro No peg-electr [place] lyte lyte olyte da solution solution solution Epi scop 420 gram 420 gram 420 gram al oral oral oral Health solution solution solution Out reac STARTING AT STARTING AT STARTING h 7 IN THE 7 IN THE AT 7 IN Prog dawna EVENING EVENING THE DRINK 8 DRINK 8 EVENING OUNCES OUNCES DRINK 8 EVERY 15 EVERY 15 OUNCES MINUTES MINUTES EVERY 15 UNTIL UNTIL MINUTES GROUP HOME GROUP HOME UNTIL FINISHED. 4 FINISHED. 4 GROUP HOME HOURS PRIOR HOURS PRIOR FINISHED. TO TO 4 HOURS PROCEDURE PROCEDURE PRIOR TO DRINK 8 DRINK 8 PROCEDURE OUNCES OUNCES DRINK 8 EVERY 15 EVERY 15 OUNCES MIN MIN EVERY 15 MIN prednisone prednisone No prednisone [place] 20 mg 20 mg 20 mg da tablet TAKE tablet TAKE tablet [facility] ONE TABLET ONE TABLET TAKE ONE al BY MOUTH BY MOUTH TABLET BY He alth EVERY DAY EVERY DAY MOUTH Outr eac FOR 5 DAYS FOR 5 DAYS EVERY DAY h FOR 5 DAYS Program promethazin promethazin No promethazi [place] e-DM 6.25 e-DM 6.25 ne-DM 6.25 da mg-15 mg/5 mg-15 mg/5 mg-15 mg/5 [facility] mL oral mL oral mL oral al syrup TAKE syrup TAKE syrup TAKE Health ONE (1) ONE (1) ONE (1) Outrea c TEASPOONFUL TEASPOONFUL TEASPOONFU h (S) BY (S) BY L(S) BY Program MOUTH EVERY MOUTH EVERY MOUTH FOUR TO SIX FOUR TO SIX EVERY FOUR HOURS HOURS TO SIX NEEDED FOR NEEDED FOR HOURS COUGH. COUGH. NEEDED FOR COUGH. quinine 324 quinine 324 No quinine [facility] mg capsule mg capsule 324 mg d a TAKE ONE TAKE ONE capsule [facility] copper plater (1) (1) TAKE ONE al TABLET(S) TABLET(S) (1) Healt h BY MOUTH BY MOUTH TABLET(S) Ou treac ONCE A DAY ONCE A DAY BY MOUTH h AT BEDTIME. AT BEDTIME. ONCE A DAY Program AT BEDTIME. sulfamethox sulfamethox No sulfametho [place] azole 800 azole 800 xazole 800 da mg-trimetho mg-trimetho mg-trimeth [facility] prim 160 mg prim 160 mg oprim 160 al tablet tablet mg tablet Health Outreac h Program terconazole terconazole No terconazol [place] 0.4 % 0.4 % e 0.4 % da vaginal vaginal vaginal [facility] cream cream cream al INSERT ONE INSERT ONE INSERT ONE Health (1) (1) (1) Outreac APPLICATORF APPLICATORF APPLICATOR h UL(S) IN UL(S) IN FUL(S) IN Pr ogram VAGINA AT VAGINA AT VAGINA AT BEDTIME FOR BEDTIME FOR BEDTIME SEVEN DAYS. SEVEN DAYS. FOR SEVEN DAYS. terconazole terconazole No terconazol [place] 0.8 % 0.8 % e 0.8 % da vaginal vaginal vaginal [facility] cream cream cream al INSERT ONE INSERT ONE INSERT ONE Health (1) (1) (1) Outreac APPLICATORF APPLICATORF APPLICATOR h UL UL FUL Program VAGINALLY VAGINALLY VAGINALLY AT BEDTIME AT BEDTIME AT BEDTIME FOR 3 DAYS. FOR 3 DAYS. FOR 3 DAYS. triamterene triamterene No triamteren [place] 37.5 37.5 e 37.5 da mg-hydrochl mg-hydrochl mg-hydroch [facility] orothiazide orothiazide lorothiazi al 25 mg 25 mg de 25 mg Health tablet TAKE tablet TAKE tablet Outreac ONE (1) ONE (1) TAKE ONE h TABLET(S) TABLET(S) (1) Progr am BY MOUTH IN BY MOUTH IN TABLET(S) THE THE BY MOUTH MORNING. MORNING. IN THE MORNING. Trulicity Trulicity No Trulicity [facility] 0.75 mg/0.5 0.75 mg/0.5 0.75 d a mL mL mg/0.5 mL [facility] subcutaneou subcutaneou subcutaneo al s pen s pen us pen Health injector injector injector Out reac INJECT ONE INJECT ONE INJECT ONE h (1) SYRINGE (1) SYRINGE (1) P rogram UNDER THE UNDER THE SYRINGE SKIN EVERY SKIN EVERY UNDER THE WEEK. WEEK. SKIN EVERY WEEK. Trulicity Trulicity No Trulicity [facility] 1.5 mg/0.5 1.5 mg/0.5 1.5 mg/0.5 da mL mL mL [facility] subcutaneou subcutaneou subcutaneo al s pen s pen us pen Health injector injector injector Out reac INJECT ONE INJECT ONE INJECT ONE h (1) PEN (1) PEN (1) PEN Progra m SUBCUTANEOU SUBCUTANEOU SUBCUTANEO SLY ONCE A SLY ONCE A USLY ONCE WEEK. WEEK. A WEEK. vancomycin vancomycin No vancomycin [facility] 250 mg 250 mg 250 mg da capsule capsule capsule [facility] TAKE ONE TAKE ONE TAKE ONE al (1) (1) (1) Health CAPSULE(S) CAPSULE(S) CAPSULE(S) Outreac BY MOUTH BY MOUTH BY MOUTH h EVERY EIGHT EVERY EIGHT EVERY Program HOURS. HOURS. EIGHT HOURS. Anoro Anoro No Anoro [place] Ellipta Ellipta [...] DAYS ROUTE ONCE DAILY FOR 4 DAYS Immunizations Ordered Filled Immunization Date Status Comments [facility] e Immunization Name Name Tdap Tdap 2018-05-28 Completed [facility] 12:28:00 Group TDAP 2018-05-28 Completed [facility] 00:00:00 [facility] TDAP 2018-05-28 Completed [facility] 00:00: [facility] TDAP 2018-05-28 Completed [facility] :00: [facility] TDAP 2018-05-28 Completed [facility] :00: [facility] TDAP 2018-05-28 [facility]pleted [facility] TDAP 2018-05-28 Completed [facility] 00:[facility]: [facility] TDAP 2018-05-28 Completed [facility]: [facility] TDAP 2018-05-28 Completed [facility] 00:00: [facility] TDAP 2018-05-28 Completed [facility] 00:00: [facility] Tdap 2018-05-28 Completed [facility] 00:00: [facility] Tdap 2018-05-28 Completed [facility] 00:00: [facility] TDAP 2018-05-28 Completed [facility] 00:00: [facility] TDAP 2018-05-28 Completed [facility] 00:00:00 [facility] Vital Signs Vital Name Observation Time Observation Value Comments Source BP Diastolic 2019-09-26 00:00:00 103 mm[Hg] [facility] Height 2019-09-26 00:00:00 67 [in_i] [facility] BMI (Body Mass 2019-09-26 00:00:00 44.6 kg/m2 [facility] BP Systolic 2019-09-26 00:00:00 156 mm[Hg] [facility] Body Weight 2019-09-26 00:00:00 4560 [oz_av] [facility] BP Diastolic 2019-07-26 00:00:00 100 mm[Hg] [facility] Height 2019-07-26 00:00:00 67 [in_i] [facility] BMI (Body Mass 2019-07-26 00:00:00 44.5 kg/m2 [facility]) Group BP Systolic 2019-07-26 00:00:00 170 mm[Hg] [facility] Body Weight 2019-07-26 00:00:00 4544 [oz_av] [facility] BP Diastolic 2019-05-23 00:00:00 78 mm[Hg] [facility] Height 2019-05-23 00:00:00 67 [in_i] [facility] BMI (Body Mass 2019-05-23 00:00:00 43.4 kg/m2 [facility] Group BP Systolic 2019-05-23 00:00:00 150 mm[Hg] [facility] Body Weight 2019-05-23 00:00:00 276.8 [lb_av] [facility] BP Diastolic 2019-05-14 00:00:00 96 mm[Hg] [facility] Height 2019-05-14 00:00:00 67 [in_i] [facility] BMI (Body Mass 2019-05-14 00:00:00 43.9 kg/m2 [facility] Group BP Systolic 2019-05-14 00:00:00 164 mm[Hg] [facility] Body Weight 2019-05-14 00:00:00 4480 [oz_av] [facility] BP Diastolic 2019-02-28 00:00:00 79 mm[Hg] [facility] Height 2019-02-28 00:00:00 67 [in_i] [facility] BMI (Body Mass 2019-02-28 00:00:00 42.6 kg/m2 [facility] BP Systolic 2019-02-28 00:00:00 141 mm[Hg] [facility] Body Weight 2019-02-28 00:00:00 4352 [oz_av] [facility] BP Diastolic 2019-02-20 00:00:00 81 mm[Hg] [facility] Height 2019-02-20 00:00:00 67 [in_i] [facility] BMI (Body Mass 2019-02-20 00:00:00 42.3 kg/m2 [facility] Group BP Systolic 2019-02-20 00:00:00 120 mm[Hg] [facility] Body Weight 2019-02-20 00:00:00 270.3 [lb_av] [facility] BP Diastolic 2019-02-19 00:00:00 83 mm[Hg] [facility] Height 2019-02-19 00:00:00 67 [in_i] [facility] BMI (Body Mass 2019-02-19 00:00:00 42.3 kg/m2 [facility] BP Systolic 2019-02-19 00:00:00 136 mm[Hg] [facility] Body Weight 2019-02-19 00:00:00 4320 [oz_av] [facility] BP Diastolic 2019-01-24 00:00:00 89 mm[Hg] [facility] Height 2019-01-24 00:00:00 67 [in_i] [facility] BMI (Body Mass 2019-01-24 00:00:00 42.3 kg/m2 [facility] BP Systolic 2019-01-24 00:00:00 126 mm[Hg] [facility] Body Weight 2019-01-24 00:00:00 269.8 [lb_av] [facility] BP Diastolic 2018-12-27 00:00:00 81 mm[Hg] [facility] Height 2018-12-27 00:00:00 67 [in_i] [facility] BMI (Body Mass 2018-12-27 00:00:00 42.8 kg/m2 [facility] BP Systolic 2018-12-27 00:00:00 129 mm[Hg] [facility] Body Weight 2018-12-27 00:00:00 273.2 [lb_av] [facility] BP Diastolic 2018-12-17 00:00:00 93 mm[Hg] [facility] Height 2018-12-17 00:00:00 67 [in_i] [facility] BMI (Body Mass 2018-12-17 00:00:00 42.9 kg/m2 [facility] BP Systolic 2018-12-17 00:00:00 161 mm[Hg] [facility] Body Weight 2018-12-17 00:00:00 4384 [oz_av] [facility] BP Diastolic 2018-12-06 00:00:00 88 mm[Hg] [facility] Height 2018-12-06 00:00:00 67 [in_i] [facility] BMI (Body Mass 2018-12-06 00:00:00 43 kg/m2 [facility] BP Systolic 2018-12-06 00:00:00 152 mm[Hg] [facility] Body Weight 2018-12-06 00:00:00 274.7 [lb_av] [facility] BP Diastolic 2018-10-22 00:00:00 84 mm[Hg] [facility] Height 2018-10-22 00:00:00 67 [in_i] [facility] BMI (Body Mass 2018-10-22 00:00:00 43.5 kg/m2 [facility] BP Systolic 2018-10-22 00:00:00 152 mm[Hg] [facility] Body Weight 2018-10-22 00:00:00 4448 [oz_av] [facility] BP Diastolic 2018-08-27 00:00:00 100 mm[Hg] [facility] Height 2018-08-27 00:00:00 67 [in_i] [facility] BMI (Body Mass 2018-08-27 00:00:00 44.6 kg/m2 [facility] BP Systolic 2018-08-27 00:00:00 186 mm[Hg] [facility] Body Weight 2018-08-27 00:00:00 4560 [oz_av] [facility] BP Diastolic 2018-08-06 00:00:00 104 mm[Hg] [facility] Height 2018-08-06 00:00:00 67 [in_i] [facility] BMI (Body Mass 2018-08-06 00:00:00 43.9 kg/m2 [facility] BP Systolic 2018-08-06 00:00:00 166 mm[Hg] [facility] Body Weight 2018-08-06 00:00:00 4480 [oz_av] [facility] Height 2018-07-30 00:00:00 67 [in_i] [facility] BMI (Body Mass 2018-07-30 00:00:00 43.9 kg/m2 [facility] Body Weight 2018-07-30 00:00:00 280 [lb_av] [facility] 02 Sat by Pulse [...] 2020-12-02 11:20:37 Normal /min Weight 2020-12-02 11:20:37 809096.678\\S\\4448 Weight Measurement 2020-12-02 11:20:37 Estimated by Method [...] 2020-11-28 00:12:35 Normal /min Weight 2020-11-28 00:12:35 061598.678\\S\\4448 Weight Measurement 2020-11-28 00:12:35 Estimated by Method Patient 02 Sat by Pulse 2020-11-27 12:19:31 97 /min Oximetry Body Mass Index 2020-11-27 12:19:31 43.5 Height 2020-11-27 12:19:31 170.18\\S\\67 Pulse Rate 2020-11-27 12:19:31 69 /min Pulse Strength 2020-11-27 12:19:31 Normal /min Pulse Assessment 2020-11-27 12:19:31 Palpation /min Method Respiratory Rate 2020-11-27 12:19:31 15 /min Weight 2020-11-27 12:19:31 957722.678\\S\\4448 Weight Measurement 2020-11-27 12:19:31 Estimated by Method Patient Body Mass Index 2020-11-27 09:51:35 43.5 Height 2020-11-27 09:51:35 170.18\\S\\67 Weight 2020-11-27 09:51:35 978991.678\\S\\4448 Weight Measurement 2020-11-27 09:51:35 Estimated by Method Patient Height 2020-11-27 09:51:32 170.18\\S\\67 Weight Measurement 2020-11-27 09:51:32 Estimated by Staff Method Height 2020-11-27 09:51:22 170.18\\S\\67 Weight Measurement 2020-11-27 09:51:22 Estimated by Staff Method WEIGHT 2020-11-27 08:59:00 126.313050 kg HEIGHT 2020-11-27 08:59:00 170.18 cm HEIGHT 2020-11-27 08:32:00 170.18 cm Procedures Procedure Date / Time Performing Clinician Source Performed AMYLASE 2020-08-13 16:37:00 Андрей Rosen [facility] LIPASE 2020-08-13 16:37:00 Андрей Rosen [facility] COMP. METABOLIC PANEL 2020-08-13 16:37:00 Андрей Rosen [facility] ([id number]) Medical Branch CBC WITH DIFF 2020-08-13 16:37:00 Андрей Rosen [facility] ASSIGNMENT OF BENEFITS 2020-08-13 16:17:47 Doctor Unassigned, [facility] Ali Molina Medical Branch US, duplex, carotid 2019-05-20 00:00:00 Kike krishna Medical artery Group US, doppler, arterial 2019-05-14 00:00:00 [facility] REFERRAL- 2019-03-06 05:01:00 Doctor Unassigned, [facility] REQUEST/RESPONSE Ali Molina [facility] INSURANCE CORRESPONDENCE 2019-02-28 05:01:00 Doctor Unassigned, [facility] Ali Molina Medical [facility] XR, wrist 2018-12-17 00:00:00 [facility] TYMPANOMETRY 2018-12-06 00:00:00 [facility] unlisted imaging order 2018-10-22 00:00:00 [facility] TYMPANOMETRY 2018-07-20 00:00:00 [place] [facility] unlisted imaging order 2018-07-20 00:00:00 [facility] Exploration of Kidney 2017-11-30 00:00:00 [facility] Remove Tonsils and [place] [facility] Aden[facility] Ankle Arthroscopy/surgery [facility] Hysterectomy/revise [place] [facility] Vagina [facility] Encounters Start End Encounter Admission Attending Care Care Encounter Source Date/Time Date/Time Type Type Clinicians Facility Department ID 2021-09-03 2021-09-03 Outpatient [facility] [id number] [place] 12:08:00 12:08:00 [facility] 2021-08-26 2021-08-26 Outpatient [facility] [place] [id number] [place] 01:46:00 01:46:00 H 0121 [facility] 2021-08-11 2021-08-11 Outpatient DESAI[facility] [place] [id number] [place] 02:25:00 02:25:00 H 0107 [facility] 2021-07-30 2021-07-30 Outpatient [facility] [place] [id number] [place] 06:44:00 06:44:00 H 1227 [facility] 2021-07-29 2021-07-29 Outpatient [facility] [place] [id number] [place] 01:39:00 01:39:00 H 1216 [facility] 2021-07-29 2021-07-29 Outpatient [facility] [place] [id number] [place] 01:39:00 01:39:00 H 1217 [facility] 2021-07-29 2021-07-29 Dario HEIN [place] - [id number] M at[place]or 00:00:00 00:00:00 Josiah KrishnaYD: 1700 Religious Epi scop [facility] - VTSVETLANA al [facility] [address] h , Ph. Program (979) --20072021-07-27 2021-07-27 Outpatient [facility] [place] [id number] [place] 04:57:00 04:57:00 H 1214 [facility] 2021-07-24 2021-07-24 Outpatient [facility] [place] [id number] [place] 10:24:00 10:24:00 H 1211 [facility] 2021-07-24 2021-07-24 Bakari HEIN [place] - [id number] [place] 00:00:00 00:00:00 MD Sony: Josiah fulton a 1700 Religious Episco p [facility] [address] h , Ph. Program (979) --20072021-07-22 2021-07-22 Outpatient [facility] [place] [id number] [place] 12:06:00 12:06:00 H 1209 [facility] 2021-07-02 2021-07-02 Outpatient [facility] [place] [id number] [place] 06:35:00 06:35:00 H 1206 [facility] 2021-07-01 2021-07-01 Outpatient DESAI_RAKES [facility] 720 [place] 04:17:00 04:17:00 H 1118 [facility] 2021-07-01 2021-07-01 Outpatient [facility] [id number] [place] 04:17:00 04:17:00 H 1119 [facility] 2021-07-01 2021-07-01 Dario HEIN [place] - [id number] M at[place]or 00:00:00 00:00:00 Josiah KrishnaYD: 1700 Religious Epi scop [facility] [place] [facility] [address] h , Ph. Program (979) --20072021-06-29 2021-06-29 Outpatient [facility] [place] [id number] [place] 12:45:00 12:45:00 H 1116 [facility] 2021-06-26 2021-06-26 Outpatient [facility] [place] [id number] [place] 11:01:00 11:01:00 H 1113 [facility] 2021-06-26 2021-06-26 Bakari Frye [facility] [place] - [id number] [place] 00:00:00 00:00:00 MD Sony: Josiah fulton a 1700 Religious Episco p [facility] [facility] [address] h , Ph. Program (979) --20072021-06-24 2021-06-24 Outpatient [facility] [place] [id number] [place] 11:57:00 11:57:00 H 1111 [facility] 2021-05-21 2021-05-21 Outpatient [facility] [id number] [place] 07:27:00 07:27:00 H 1022 [facility] 2021-05-13 2021-05-13 Outpatient [facility] [id number] [place] 11:08:00 11:08:00 H 0930 [facility] 2021-05-13 2021-05-13 Outpatient [facility] [id number] [place] 11:08:00 11:08:00 H 1008 [facility] 2021-05-13 2021-05-13 Jamila [facility] [place] - [id number] M at[place]or 00:00:00 00:00:00 Neil carr, CENTRAL AISLE CASHIER: Religious Episco p 1700 HOP - ANGEL LUIS [facility] [address] [facility] am , Ph. (921) --20072021-05-11 2021-05-11 Outpatient DESAI_RAKES VTHOP [facility] 720 [place] 03:05:00 03:05:00 H 0928 [facility] 2021-04-30 2021-04-30 Outpatient DESAI_RAKES [facility] 720 [place] 12:59:00 12:59:00 H 0922 [facility] 2021-04-22 2021-04-22 Outpatient DESAI_RAKES VTHOP [facility] 720 [place] 12:01:00 12:01:00 H 0917 [facility] 2021-04-20 2021-04-20 Outpatient DESAI_RAKES [facility] 720 [place] 09:42:00 09:42:00 H 0909 [facility] 2021-04-14 2021-04-14 Outpatient DESAI_RAKES [facility] 720 [place] 05:12:00 05:12:00 H 0901 [facility] 2021-04-14 2021-04-14 Outpatient DESAI_RAKES [facility] 720 [place] 05:12:00 05:12:00 H 0907 [facility] 2021-04-14 2021-04-14 Jamila VTS[place]ETLA[place] - [id number] M at[place]or 00:00:00 00:00:00 Neil carr, CENTRAL AISLE CASHIER: Religious Episco p 1700 HOP - ANGEL LUIS WilksH [facility] [place] [address] [facility] cornelio , Ph. (324) 245--20072021-04-12 2021-04-12 Outpatient DESAI_ROSE MARIE [facility] 720 [place] 01:08:00 01:08:00 H 0830 [facility] 2021-04-09 2021-04-09 Outpatient DESAI_ROSE MARIE [facility] 720 [place] 02:07:00 02:07:00 H 0827 [facility] 2021-04-09 2021-04-09 Jamila [facility] - [id number] atagor 00:00:00 00:00:00 Neil carr, CENTRAL AISLE CASHIER: Religious Episco p 1700 [facility] vitaly [facility] [address] Luis grimes , Ph. (979) --20072021-04-07 2021-04-07 Outpatient DESAI_ROSE MARIE [place] [id number] [place] 01:39:00 01:39:00 H 0825 [facility] 2020-10-23 2020-10-23 Outpatient A_Byrd MMG MMG [id number] [place] 11:33:00 11:33:00 0104 Medical Group 2020-08-26 2020-08-[address] [facility] [id number] [id number] Univers 11:00:00 11:00:00 АНДРЕЙ [id number] [facility] 2020-08-26 2020-08-26 [facility] [id number] Univers 00:00:00 00:00:00 АНДРЕЙ [facility] 2020-08-13 2020-08-13 [facility] 1.2.840.114 [id number] 10:23:40 23:59:00 Martinez Cummings 350.1.13.10 Telephone 4.2.7.2.686 [place] [id number] 804 2020-08-13 2020-08-13 [facility] 1.2.840.114 [id number] Univers 10:23:40 23:59:00 Encounter Андрей Cummings 350.1.13.10 ity of Tele[place]2.[place] [id number] [facility] 804 [place] 2020-08-13 2020-08-13 Outpatient VIJAY [facility] [id number] [id number] Univers 11:00:00 11:00:00 [facility] [id number] [facility] 2020-08-13 2020-08-13 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 Carey, [facility] 1.2.840.114 [id number] 10:22:14 10:37:14 Visit Lab Main [place] 350.1.13.10 Telephone 4.2.7.2.[address] Professio [id number] 2020-08-13 2020-08-13 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 Carey, [facility] Lab Main [facility] [[email or web address]] 1.2.8 40.114 [id number] Univers 10:22:14 10:37:14 Visit Андрей Rosen 350.1.13.10 ity of Telephone 4.2.7.2.686 [facility] Professio [id number] Sc dical [address] 2020-08-13 2020-08-13 Outpatient R VIJAY [facility] [id number] Univers 00:00:00 00:00:00 [facility] 2020-08-13 2020-08-13 Orders Doctor BISHOP 1.2.840.114 [id number] 00:00:00 00:00:00 Only Unassigned, JESS 350.1.13.10 Ali Molina [facility] 4.2.7.2.686 [id number] [id number] 2020-08-13 2020-08-13 Orders Doctor BISHOP 1.2.840.114 [id number] Univers 00:00:00 00:00:00 Only Unassigned, JESS 350.1.13.10 ity of Ali Molina [facility] 4.2.7.2.686 Onofre as [id number] [facility] [address] [place] 2020-07-01 2020-07-01 Outpatient A_Byrd MMG MMG [id number] [place] 02:36:00 02:36:00 1118 [facility] 2020-06-19 2020-06-19 [facility] [id number] Univers 16:30:00 16:30:00 HILL [id number] [facility] 2020-06-19 2020-06-19 [facility] [id number] Univers 16:30:00 16:30:00 HILL [facility] 2020-06-09 2020-06-09 Outpatient A_Byrd MMG MMG [id number] [place] 03:38:00 03:38:00 1027 [facility] 2020-05-11 2020-05-11 Telephone [facility] 1.2.840.114 [id number] 00:00:00 00:00:00 Hill Cummings 350.1.13.10 Telephone 4.2.7.2.686 Professio [id number] [address] 2020-05-11 2020-05-11 [facility] 1.2.840.114 [id number] Univers 00:00:00 00:00:00 Chadd Cummings 350.1.13.10 i ty of Telephone 4.2.7.2.[place] [phone] Sc dic[address] 2020-05-11 2020-05-11 Telephone [facility] 1.2.840.114 [id number] Univers 00:00:00 00:00:00 Hill Vijay Emiliano 350.1.13.10 i ty of Telephone 4.2.7.2.[place] Profess[place] [phone] Sc dic[address] 2020-05-09 2020-05-09 Outpatient DESAI_RAKES [facility] 720 [place] 11:02:00 11:02:00 H 0926 [facility] 2020-04-04 2020-04-04 Outpatient DESAI_RAKES [facility] 720 [place] 12:20:00 12:20:00 H 0822 [facility] 2020-02-29 2020-02-29 Outpatient DESAI_RAKES [facility] 720 [place] 12:24:00 12:24:00 H 0718 [facility] 2020-02-13 2020-02-13 [facility] [id number] Univers 00:00:00 00:00:00 Hill Cummings 350.1.13.10 i ty of Telephone 4.2.7.2.[place] Profess[place] [id number] Sc dical nal [address] [place] [address] 2020-01-24 2020-01-24 [facility] [id number] Univers 09:00:00 09:00:00 HILL ch [facility] 2019-12-25 2019-12-25 Outpatient A_Byrd MMG MMG [id number] [place] 05:35:00 05:35:00 0513 [facility] 2019-12-25 2019-12-25 Dylan Lara MM [place] - [id number] M atagor 00:00:00 00:00:00 MD Calixto: [address] [address] , Ph. 2019-12-16 2019-12-16 [facility] [id number] [id number] Univers 00:00:00 00:00:00 Hill Carr Emiliano 350.1.13.10 i ty of Telephone 4.2.7.2.686 [place] [id number] Sc dical [address] 2019-11-28 2019-11-28 Outpatient A_Byrd MMG MMG [id number] [place] 07:28:00 07:28:00 0416 [facility] 2019-11-28 2019-11-28 Dylan Lara MM [place] - [id number] M atagor 00:00:00 00:00:00 MD Calixto: [address] [place] [address] , Ph. 2019-11-19 2019-11-19 Outpatient A_Byrd MMG MMG [id number] [place] 11:48:00 11:48:00 0407 [facility] 2019-11-19 2019-11-19 Dylan Lara [facility] [place] - [id number] M atagor 00:00:00 00:00:00 MD Calixto: [address], [facility], [place] [address] , Ph. 2019-11-15 2019-11-15 Narendra Jean [facility] [[email or web address]] [id number] Univers 00:00:00 00:00:00 Hill Cummings 350.1.13.10 i [place] 4.2.7.2.686 Sigifredo Lipscomb [id number] Sc dical [address] 2019-09-26 2019-09-26 [facility] [id number] [place] 10:13:00 10:13:00 0213 [facility] 2019-09-26 2019-09-26 Dylan Lara [facility] [place] - [id number] M atagor 00:00:00 00:00:00 MD Calixto: [address] - [facility] 201, [facility] [place] [address] , Ph. 2019-08-01 2019-08-01 Outpatient [facility]xto [facility] [id number] [place] 11:38:00 11:38:00 0212 [facility] 2019-07-26 2019-07-26 Dylan Lara [facility] [place] - [id number] M atagor 00:00:00 00:00:00 MD Calixto: [address], [facility], [facility] [place] [address] , Ph. 2019-05-23 2019-05-23 Geoff [place] - [id number] [place] 00:00:00 00:00:00 MD Cherelle: [address], [place] [address], [facility] [place] [facility] [place] [address] , Ph. 2019-05-14 2019-05-14 Dylan Lara [facility] [place] - [id number] M atagor 00:00:00 00:00:00 MD Calixto: [address], [facility], [facility] [place] [address] , Ph. 2019-04-02 2019-04-02 Narendra Vicente [facility] [[email or web address]] 1.2.840.114 [id number] Univers 00:00:00 00:00:00 [facility] 350.1.13.10 i ty of Telephone 4.2.7.2.686 [place] [phone] Sc dical [facility] [address] [facility] 2019-03-06 2019-03-06 Orders Doctor DARIO 1.2.840.114 [id number] Univers 00:00:00 00:00:00 Only Unassigned, JESS 350.1.13.10 ity of Ali [facility] 4.2.7.2.686 Onofre as [phone] [facility] 009 Branch 2019-02-28 2019-02-28 Dylan Lara [facility] [place] - [id number] M atagor 00:00:00 00:00:00 MD Calixto: [address], [facility], [facility] [place] [address] , Ph. 2019-02-28 2019-02-28 Orders Doctor DARIO 1.2.840.114 [id number] Univers 00:00:00 00:00:00 Only Unassigned, JESS 350.1.13.10 ity of Ali [facility] 4.2.7.2.686 Onofre as [phone] [place] [address] Branch 2019-02-20 2019-02-20 Geoff [facility] [place] - [id number] [place] 00:00:00 00:00:00 MD Cherelle: [address], Otolaryngol [place], [facility] [place] [address] , Ph. 2019-02-19 2019-02-19 Dylan RODARTE [place] - [id number] M atagor 00:00:00 00:00:00 MD Calixto: [address], [place] - [address], [facility], [place] [address] , Ph. 2019-01-24 2019-01-24 Geoff [place] - [id number] [place] 00:00:00 00:00:00 MD Cherelle: [address], [place] - [address], [facility] [place] [address] , Ph. 2018-12-27 2018-12-27 Geoff [place]ODARTE [place] - [id number] [place] 00:00:00 00:00:00 MD Cherelle: [address], [place] - [address], Otol[facility]ol [place], [facility] [place] [address] , Ph. 2018-12-17 2018-12-17 Dylan Lara MM [place] - [id number] M atagor 00:00:00 00:00:00 MD Calixto: [address], [place] - [address], [facility], [facility] [place] [address] , Ph. 2018-12-06 2018-12-06 Geoff [place]ODARTE [place] - [id number] [place] 00:00:00 00:00:00 MD Cherelle: [address], [place] - [address], [facility] [place] [facility] [place] [address] , Ph. 2018-10-22 2018-10-22 Dylan RODARTE [place] - [id number] M atagor 00:00:00 00:00:00 MD Calixto: [address], [place] - [address], [facility] [place] [address] , Ph. 2018-08-27 2018-08-27 Dylan Lara [facility] [place] - [id number] M atagor 00:00:00 00:00:00 MD Calixto: [address], [place] - [address], [facility] [place] [address] , Ph. 2018-08-06 2018-08-06 Dylan Lara MM [place] - [id number] M atagor 00:00:00 00:00:00 MD Calixto: [address], [place] - [address], [facility] [place] [address] , Ph. 2018-07-30 2018-07-30 Palefra MARSH[place] - [id number] [place] 00:00:00 00:00:00 MD Cherelle: [address], [facility] 201, [facility], [facility] [place] [address] , Ph. 2018-07-20 2018-07-20 Palefra [facility] [place] - [id number] [place] 00:00:00 00:00:00 MD Cherelle: [address], [facility] 201, [facility] [address] , Ph. Results Test Description Test Time Test Comments Results Result Comments Source LIPASE 2020-08-13 17:12:00 Test Item Value Reference Range Interpretation Comme nts LIPASE (test code = 2940240795) 122 U/L 0-220 Lab Interpretation (test code = 45578-3) [facility]91988[facility]2020-08-13 17:12:00 Test Item Value Reference Range Interpretation Comments NA (test code = 136 mmol/L 135-145 8706631738) K (test code = 4.3 mmol/L 3.5-5 7061772626) CL (test code = 100 mmol/L 98-108 1137406889) CO2 TOTAL (test code = 29 mmol/L 23-31 6415069204) AGAP (test code = 2-16 3099431778) BUN (test code = 18 mg/dL 7-23 6356969122) GLUCOSE (test code = 194 mg/dL 70-110 H 6262520939) CREATININE (test code = 1.01 mg/dL 0.5-1.04 4903193964) TOTAL BILI (test code = 0.6 mg/dL 0.1-1.2 7241649262) CALCIUM (test code = 9.9 mg/dL 8.6-10.6 8692874269) T PROTEIN (test code = 6.8 g/dL 6.3-8.2 5310429947) ALBUMIN (test code = 4.2 g/dL 3.5-5 1015579193) ALK PHOS (test code = 67 U/L 34-122 1578517669) ALTv (test code = 44 U/L 5-35 H 1742-6) AST(SGOT) (test code = 36 U/L 13-40 8751764618) eGFR Calculation mL/min/1.73m2 (Non-) (test code = 4954538733) eGFR Calculation mL/min/1.73m2 () (test code = 8326672210) ANA (test code = ANA) Association of Glomerular Filtration Rate (GFR) and Staging of Kidney Disease* + --+ --+ ------+| GFR (mL/min/1.73 m2) ?| With Kidney Damage ?| ?Without Kidney Damage+ --------+ --------+ +| ?>90 ?| ?Stage one ?| ? Normal ?+ ---+ ---+ -------+| ?60-89 ?| ?Stage two ?| ? Decreased GFR ? + --+ --+ ------+| ?30-59 ?| ?Stage three ?| ? Stage three ? + --+ --+ ------+| ?15-29 ?| ?Stage four ? | ? Stage four ?+ ---+ ---+ -------+| ?<15 (or dialysis) ? ?| ?Stage five ? | ? Stage five ?+ ---+ ---+ -------+ *Each stage assumes the associated GFR level has been in effect for at least three months. ?Stages 1 to 5, with or without kidney disease, indicate chronic kidney disease. Notes: Determination of stages one and two (with eGFR >59mL/min/1.73 m2) requires estimation of kidney damage for at least three months as defined by structural or functional abnormalities of the kidney, manifested by either:Pathological abnormalities or Markers of kidney damage (including abnormalities in the composition of the blood or urine or abnormalities in imaging tests). Lab Interpretation Abnormal (test code = 88303-9) [facility]00 Test Item Value Reference Range Interpretation Comments CHRISTY (test code = 7388582986) 45 U/L 35-110 Lab Interpretation (test code = Normal 06886-2) [facility] [id number] 16:45:00 Test Item Value Reference Range Interpretation Comments WBC (test code = See_Comment [Automated 6690-2) message] The sy stem which generated this result transmitted reference range : 4.30 - 11.10 10*3/?L. The reference range was not used to interpret this result as normal/abnormal . RBC (test code = See_Comment H [Automated 789-8) message] The sy stem which generated this result transmitted reference range : 3.93 - 5.25 10*6/?L. The reference range was not used to interpret this result as normal/abnormal . HGB (test code = 15.7 g/dL 11.6-15 H 718-7) HCT (test code = 48.0 % 35.7-45.2 H 4544-3) MCV (test code = 87.4 fL 80.6-95.5 787-2) MCH (test code = 28.6 pg 25.9-32.8 785-6) MCHC (test code = 32.7 g/dL 31.6-35.1 786-4) RDW-SD (test code = 42.6 fL 39-49.9 93100-6) RDW-CV (test code = 13.3 % 12-15.5 788-0) PLT (test code = See_Comment [Automated 777-3) message] The sy stem which generated this result transmitted reference range : 166 - 358 10*3/ ?L. The reference r morro was not used to interpret this result as normal/abnormal . MPV (test code = 8.8 fL 9.5-12.9 L 42000-2) NRBC/100 WBC (test See_Comment [Automat ed code = 0464240595) message] The system which generated this result transmitted reference range : 0.0 - 10.0 /100 WBCs. The refer ence range was not u sed to interpret th is result as normal/abnormal . NRBC x10^3 (test code <0.01 See_Comment [Auto mated = [id number]) message] The s ystem which generated this result transmitted reference range : 10*3/?L. The reference range was not used to interpret this result as normal/abnormal . GRAN MAT (NEUT) % 61.7 % (test code = 770-8) IMM GRAN % (test code 0.50 % = 2020853993) LYMPH % (test code = 27.6 % 736-9) MONO % (test code = 7.1 % 5905-5) EOS % (test code = 2.6 % 713-8) BASO % (test code = 0.5 % 706-2) GRAN MAT x10^3(ANC) 5.90 10*3/uL 1.88-7.09 (test code = 9474963190) IMM GRAN x10^3 (test 0.05 10*3/uL 0-0.06 code = 7830903311) LYMPH x10^3 (test code 2.64 10*3/uL 1.32-3.29 = 731-0) MONO x10^3 (test code 0.68 10*3/uL 0.33-0.92 = 742-7) EOS x10^3 (test code = 0.25 10*3/uL 0.03-0.39 711-2) BASO x10^3 (test code 0.05 10*3/uL 0.01-0.07 = 704-7) Lab Interpretation Abnormal (test code = 28385-1) [facility] [id number] 08:11:00 [facility] ReportMatanor[facility] Medical GroupSurgical pathology [id number] 08:11:00 [facility] ReportMatanorwalk [facility] Medical GroupSurgical pathology [id number] 08:11:00 [facility] ReportM[facility]Ker[facility] GroupCBC W Auto Differential panel - Blood 2019-02-04 [...] fL 78-98 [Entitic volume] (test code = 46304-2) Erythrocyte mean corpuscular 27.9 pg 26.2-33.4 hemoglobin [Entitic mass] (test code = 58223-3) mean corpuscular HGB conc (test 31.8 g/dL 31.5-36.2 code = mean corpuscular HGB conc) red cell distribution width (test 13.5 % 11.5-15.5 code = red cell distribution width) Platelets [#/volume] in Blood (test 282 K/uL 137-338 code = 76281-8) Platelet mean volume [Entitic 5.8 fL 8.4-11.8 L volume] in Blood (test code = 97315-1) Neutrophils.band form/100 64.4 % 44.4-80.1 leukocytes in Blood (test code = 56453-5) Lymphocytes/100 leukocytes in Body 24.8 % 10.0-50.0 fluid (test code = 98001-6) Monocytes/100 leukocytes in Blood 7.2 % 3.6-12.0 by Automated count (test code = 5905-5) Eosinophils/100 leukocytes in Blood 2.0 % 0.0-5.4 by Automated count (test code = 713-8) Basophils/100 leukocytes in 1.6 % 0.0-0.79 H Unspecified specimen (test code = 01920-6) [facility]PT/[id number] 12:55:00 Test Item Value Reference Range Interpretation Comments prothrombin time (test code = 10.1 seconds 10.3-12.3 L prothrombin time) INR in Blood by Coagulation 0.92 assay (test code = 59679-4) [facility] County[facility] thromboplastin [id number] 12:55:00 Test Item Value Reference Range Interpretation Comments INR in Blood by Coagulation 28.2 seconds 22.5-37.0 assay (test code = 12484-8) [facility] metabolic 2000 panel - Serum or [id number] 12:55:00 Test Item Value Reference Range Interpretation [...] code = calcium 10.0 mg/dL 8.6-10.0 level) [facility] W Auto Differential panel - [id number] 12:55:00 Test Item Value Reference Range Interpretation Comments white blood count (test code = 11.0 K/uL 4.0-11.5 white blood count) red blood count (test code = red 5.16 M/uL 3.80-5.20 blood count) Hemoglobin [Mass/volume] in Blood 14.4 g/dL 10.5-15.7 (test code = 718-7) hematocrit (test code = hematocrit) 45.2 % 34.0-50.0 Erythrocyte mean corpuscular volume 87.6 fL 78-98 [Entitic volume] (test code = 90097-7) Erythrocyte mean corpuscular 27.9 pg 26.2-33.4 hemoglobin [Entitic mass] (test code = 65824-3) mean corpuscular HGB conc (test 31.8 g/dL 31.5-36.2 code = mean corpuscular HGB conc) red cell distribution width (test 13.5 % 11.5-15.5 code = red cell distribution width) Platelets [#/volume] in Blood (test 282 K/uL 137-338 code = 55461-8) Platelet mean volume [Entitic 5.8 fL 8.4-11.8 L volume] in Blood (test code = 83436-1) Neutrophils.band form/100 64.4 % 44.4-80.1 leukocytes in Blood (test code = 42839-4) Lymphocytes/100 leukocytes in Body 24.8 % 10.0-50.0 fluid (test code = 69621-1) Monocytes/100 leukocytes in Blood 7.2 % 3.6-12.0 by Automated count (test code = 5905-5) Eosinophils/100 leukocytes in Blood 2.0 % 0.0-5.4 by Automated count (test code = 713-8) Basophils/100 leukocytes in 1.6 % 0.0-0.79 H Unspecified specimen (test code = 72493-1) [facility] CountyPT/[id number] 12:55:00 Test Item Value Reference Range Interpretation Comments prothrombin time (test code = 10.1 seconds 10.3-12.3 L prothrombin time) INR in Blood by Coagulation 0.92 assay (test code = 33732-7) [facility] Countypartial thromboplastin [id number] 12:55:00 Test Item Value Reference Range Interpretation Comments INR in Blood by Coagulation 28.2 seconds 22.5-37.0 assay (test code = 09362-2) [facility] CountyBasic metabolic 2000 panel - Serum or [id number] 12:55:00 Test Item Value Reference Range Interpretation [...] code = calcium 10.0 mg/dL 8.6-10.0 level) [facility] W Auto Differential panel - [id number] 12:55:00 Test Item Value Reference Range Interpretation Comments white blood count (test code = 11.0 K/uL 4.0-11.5 white blood count) red blood count (test code = red 5.16 M/uL 3.80-5.20 blood count) Hemoglobin [Mass/volume] in Blood 14.4 g/dL 10.5-15.7 (test code = 718-7) hematocrit (test code = hematocrit) 45.2 % 34.0-50.0 Erythrocyte mean corpuscular volume 87.6 fL 78-98 [Entitic volume] (test code = 87202-2) Erythrocyte mean corpuscular 27.9 pg 26.2-33.4 hemoglobin [Entitic mass] (test code = 74857-8) mean corpuscular HGB conc (test 31.8 g/dL 31.5-36.2 code = mean corpuscular HGB conc) red cell distribution width (test 13.5 % 11.5-15.5 code = red cell distribution width) Platelets [#/volume] in Blood (test 282 K/uL 137-338 code = 69196-0) Platelet mean volume [Entitic 5.8 fL 8.4-11.8 L volume] in Blood (test code = 76457-6) Neutrophils.band form/100 64.4 % 44.4-80.1 leukocytes in Blood (test code = 94016-9) Lymphocytes/100 leukocytes in Body 24.8 % 10.0-50.0 fluid (test code = 49492-9) Monocytes/100 leukocytes in Blood 7.2 % 3.6-12.0 by Automated count (test code = 5905-5) Eosinophils/100 leukocytes in Blood 2.0 % 0.0-5.4 by Automated count (test code = 713-8) Basophils/100 leukocytes in 1.6 % 0.0-0.79 H Unspecified specimen (test code = 02419-1) [facility] CountyPT/[id number] 12:55:00 Test Item Value Reference Range Interpretation Comments prothrombin time (test code = 10.1 seconds 10.3-12.3 L prothrombin time) INR in Blood by Coagulation 0.92 assay (test code = 05185-6) [facility]partial thromboplastin [id number] 12:55:00 Test Item Value Reference Range Interpretation Comments INR in Blood by Coagulation 28.2 seconds 22.5-37.0 assay (test code = 82411-0) [facility] - Serum or [id number] 12:55:00 Test Item Value Reference Range Interpretation [...] level) [facility] 2000 panel - Serum or [id number] 12:51:00 Test Item Value Reference Range Interpretation [...] code = calcium 9.8 mg/dL 8.6-10.0 level) [facility]2019-04-25 09:27:00 Test Item Value Reference Range Interpretation Comments Right (test code = Right) Type A Normal Left (test code = Left) Type A Normal [facility]2019-04-25 09:27:00 Test Item Value Reference Range Interpretation Comments Right (test code = Right) Type A Normal Left (test code = Left) Type A Normal [facility] CountyUrinalysis complete W Reflex Culture panel - Urine 2018-08-06 07:50:00 Test Item Value Reference Range Interpretation Comments Color of Urine by Auto (test light yellow code = 70532-2) Appearance of Urine (test code clear clear = 5767-9) Glucose [Presence] in Urine by =2+ (150 negative H Automated test strip (test code = 08416-0) Bilirubin.total [Mass/volume] negative negative in Urine (test code = 1977-6) Ketones [Mass/volume] in Urine trace negative by Automated test strip (test code = 99970-4) Specific gravity of Urine by 1.010 1.003-1.030 Automated test strip (test code = 96851-0) blood urine (test code = blood negative negative urine) pH of Urine (test code = 5.000 5-9 2756-5) protein urine (UA) (test code = negative negative protein urine (UA)) Urobilinogen [Presence] in normal 0.2-1.0 Urine (test code = 15289-5) Nitrite [Presence] in Urine by negative negative Test strip (test code = 5802-4) Leukocyte esterase [Presence] negative negative in Urine by Automated test strip (test code = 07359-8) Erythrocytes [#/volume] in <1 0-5 Urine by Automated count (test code = 798-9) Leukocytes [#/area] in Urine <1 0-5 sediment by Automated count (test code = 39916-2) Epithelial cells [Presence] in =1-5 0-5 Urine sediment by Light microscopy (test code = 91158-2) Bacteria identified in Urine by none detected none detect Culture (test code = 630-4) Casts [#/area] in Urine none detected none detect sediment by Automated count (test code = 66246-6) urine culture added? (test code no = urine culture added?) [facility] W Auto Differential panel - [id number] 12:04:00 Test Item Value Reference Range Interpretation Comments white blood count (test code = 9.9 K/uL 4.0-11.5 white blood count) red blood count (test code = red 5.20 M/uL 3.80-5.20 blood count) Hemoglobin [Mass/volume] in Blood 15.4 g/dL 10.5-15.7 (test code = 718-7) hematocrit (test code = hematocrit) 46.4 % 34.0-50.0 Erythrocyte mean corpuscular volume 89.4 fL 78-98 [Entitic volume] (test code = 51438-4) Erythrocyte mean corpuscular 29.6 pg 26.2-33.4 hemoglobin [Entitic mass] (test code = 60546-6) mean corpuscular HGB conc (test 33.1 g/dL 31.5-36.2 code = mean corpuscular HGB conc) red cell distribution width (test 12.7 % 11.5-15.5 code = red cell distribution width) Platelets [#/volume] in Blood (test 242 K/uL 137-338 code = 67742-5) Platelet mean volume [Entitic 6.5 fL 8.4-11.8 L volume] in Blood (test code = 71347-4) Neutrophils.band form/100 59.1 % 44.4-80.1 leukocytes in Blood (test code = 46898-0) Lymphocytes/100 leukocytes in Body 31.3 % 10.0-50.0 fluid (test code = 60346-0) Monocytes/100 leukocytes in Blood 5.7 % 3.6-12.04 by Automated count (test code = 5905-5) Eosinophils/100 leukocytes in Blood 2.8 % 0.0-5.41 by Automated count (test code = 713-8) Basophils/100 leukocytes in Blood 1.2 % 0.0-0.79 H by Automated count (test code = 706-2) [facility] Countydifferential panel, [id number] 12:04:00 NeutrophilsBandLymphocyteAtypical LymphMonocyteEosinophilBasophilPlatelet EstimatePlatelet MorphologyHypochromasiaAnisocytosisMicrocytosisRouleBeacham Memorial HospitalBasic metabolic 2000 panel - Serum or [id number] 12:04:00 Test Item Value Reference Range Interpretation [...] level) [facility] CountyPT/[id number] 12:04:00 Test Item Value Reference Range Interpretation Comments prothrombin time (test code = 9.9 seconds 10.3-12.3 L prothrombin time) INR in Blood by Coagulation assay 0.90 (test code = 91557-1) [facility] thromboplastin [id number] 12:04:00 Test Item Value Reference Range Interpretation Comments INR in Blood by Coagulation 27.0 seconds 22.5-37.0 assay (test code = 23664-8) [facility] CountyPdyfffiybdhdhmuc3174-59-77 10:00:34 Test Item Value Reference Range Interpretation Comments Right (test code = Right) Type A Normal Left (test code = Left) Type A Normal [facility] CountyZlddhkznqkjpmwgq6573-58-65 10:00:34 Test Item Value Reference Range Interpretation Comments Right (test code = Right) Type A Normal Left (test code = Left) Type A Normal [facility] CountyTISSUE [id number] 08:52:00Surgical Pathology Report Case: [id number] Aut horizing Provider: Jag Escalera MD Collected: 11/30/2017 1025 Ordering Location: [facility] Received: 11/30/2017 1255 SERVICES Pathologist: Tony Vallejo MD Specimen: Kidney, Left PART A KIDNEY, LEFT, NEPHRECTOMY (1076 GRAMS):CHRONIC AND ACUTE PYELONEPHRITIS.NO EVIDENCE OF MALIGNANCYFOUR BENIGN LYMPH NODES 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 Signing Pathologist Direct Phone Line: [phone] signed by Tony Vallejo MD on 12/07/2017 [...] who concurs with a diagnosis of endosalpingiosis. 73990, 28848, 75401B2, 59258Sfeekau of left kidney, chronic infection Left kidney [...] resection margins;A2, area of dense insertion; A3-A8, credit resolution representative sections of area of dense adhesions at possible UPJ; A9-A16, credit resolution representative sections of pelvis and caliceal system; A17-A18, credit resolution representative sections of renal parenchyma; A19-A21, one bisected lymph node in each cut surface; A22-A28, one serially sectioned lymph node. DB/ewPerformed.The following special studies were performed on this case and the interpretation is incorporated in the diagnostic report above:BLOCK A20- CK7, CK20, PAX8, ER, KI-54EPINFV35- CK7, CK20, PAX8, KI-67The immunohistochemistry test was developed and its performance characteristics determined by [facility], Pathology Laboratory. It has not been cleared [...] to perform high complexity clinical laboratory testing.BLOOD [id number] 06:00:00 Test Item Value Reference Range Interpretation Comments CULTURE (BEAKER) (test No growth in 5 days code = 1095) POCT-GLUCOSE [id number] 07:56:00 Test Item Value Reference Range Interpretation Comments POC-GLUCOSE METER 287 mg/dL 70-110 H TESTED AT [facility] 6720 (BEAKER) (test code = [place] 1538) [address] BASIC METABOLIC [id number] 07:51:00 Test Item Value Reference Range Interpretation [...] PATIEN TS. CBC W/PLT COUNT & AUTO [id number] 05:57:00 Test Item Value Reference Range Interpretation [...] PERCENT (BEAKER) (test code = 2801) POCT-GLUCOSE [id number] 21:03:00 Test Item Value Reference Range Interpretation Comments POC-GLUCOSE METER 166 mg/dL 70-110 H TESTED AT [facility] 6720 (BEAKER) (test code = [facility] 1538) [address] POCT-GLUCOSE [id number] 18:19:00 Test Item Value Reference Range Interpretation Comments POC-GLUCOSE METER 199 mg/dL 70-110 H TESTED AT [place] [address] [facility] (test code = [facility] 1538) [address] POCT-GLUCOSE [id number] 12:08:00 Test Item Value Reference Range Interpretation Comments POC-GLUCOSE METER 160 mg/dL 70-110 H TESTED AT [place] [address] ([facility] (test code = [facility] 1538) [address] POCT-GLUCOSE [id number] 09:10:00 Test Item Value Reference Range Interpretation Comments POC-GLUCOSE METER 170 mg/dL 70-110 H TESTED AT [place] [address] ([facility] (test code = [facility] 1538) [address] BASIC METABOLIC [id number] 07:03:00 Test Item Value Reference Range Interpretation [...] PATIEN TS. CBC W/PLT COUNT & AUTO [id number] 06:26:00 Test Item Value Reference Range Interpretation [...] PERCENT (BEAKER) (test code = 2801) POCT-GLUCOSE [id number] 20:55:00 Test Item Value Reference Range Interpretation Comments POC-GLUCOSE METER 219 mg/dL 70-110 H TESTED AT [facility] 6720 (BEAKER) (test code = [place] 1538) [address] BASIC METABOLIC [id number] 13:42:00 Test Item Value Reference Range Interpretation [...] APPLICABLE FOR DIALYSIS PATIEN TS. HEMOGLOBIN AND [id number] 13:15:00 Test Item Value Reference Range Interpretation Comments HEMOGLOBIN (BEAKER) (test code = 10.8 GM/DL 11.2-15.7 L 410) HEMATOCRIT (BEAKER) (test code = 34.0 % 34.1-44.9 L 411) URINE [id number] 10:10:00 Test Item Value Reference Range Interpretation Comments CULTURE (BEAKER) See comment A 70-79,000 c ol/mL (test code = 1095) Raheel a lbicans CALCIUM, [id number] 10:01:00 Test Item Value Reference Range Interpretation Comments CALCIUM IONIZED (BEAKER) (test 1.09 mmol/L 1.12-1.27 L code = 698) PH, BLOOD (BEAKER) (test code = 7.38 1810) BLOOD GAS, [id number] 10:01:00 Test Item Value Reference Range Interpretation [...] code = 1819) 100.0 % SODIUM NA-STAT [id number] 10:01:00 Test Item Value Reference Range Interpretation Comments SODIUM (BEAKER) (test code = 381) 134 meq/L 135-148 L GLUCOSE-STAT [id number] 10:01:00 Test Item Value Reference Range Interpretation Comments GLUCOSE RANDOM (BEAKER) (test code 192 mg/dL 70-110 H = 652) HGB/HCT (H&H) - STAT [id number] 10:01:00 Test Item Value Reference Range Interpretation Comments HEMOGLOBIN (BEAKER) (test code = 11.7 g/dL 12.0-15.0 L 410) HEMATOCRIT (BEAKER) (test code = 34.0 % 36.0-45.0 L 411) POTASSIUM-STAT [id number] 09:56:00 Test Item Value Reference Range Interpretation Comments POTASSIUM (BEAKER) (test code = 4.0 meq/L 3.6-5.5 379) LACTIC ACID, VENOUS, WHOLE [id number] 06:39:00 Test Item Value Reference Range Interpretation Comments LACTATE BLOOD VENOUS 0.7 mmol/L 0.5-2.2 Specime n slightly (2) (BEAKER) (test hemolyzed code = 2872) Effective 12/16/2015: Units/Reference Range ChangeNew: 0.5-2.2 mmol/L Previous: 5-20 mg/[id number] 06:36:00 Test Item Value Reference Range Interpretation Comments PHOSPHORUS (BEAKER) (test code = 3.7 mg/dL 2.3-4.7 604) [id number] 06:36:00 Test Item Value Reference Range Interpretation Comments MAGNESIUM (BEAKER) (test code = 1.6 mg/dL 1.6-2.6 627) BASIC METABOLIC [id number] 06:36:00 Test Item Value Reference Range Interpretation [...] NOT APPLICABLE FOR DIALYSIS PATIEN TS. POCT-GLUCOSE [id number] 21:05:00 Test Item Value Reference Range Interpretation Comments POC-GLUCOSE METER 215 mg/dL 70-110 H TESTED AT [facility] 67[address] ([facility] (test code = [facility] 1538) [address] POCT-GLUCOSE [id number] 17:48:00 Test Item Value Reference Range Interpretation Comments POC-GLUCOSE METER 150 mg/dL 70-110 H TESTED AT [facility] 6720 ([facility] (test code = [facility] 1538) [address] POCT-GLUCOSE [id number] 12:00:00 Test Item Value Reference Range Interpretation Comments POC-GLUCOSE METER 204 mg/dL 70-110 H TESTED AT [place] [address] ([facility] (test code = [facility] 1538) [address] URINE [id number] 08:15:00 Test Item Value Reference Range Interpretation Comments CULTURE (BEAKER) (test 40-49,000 col/mL skin code = 1095) mckenna POCT-GLUCOSE [id number] 07:41:00 Test Item Value Reference Range Interpretation Comments POC-GLUCOSE METER 154 mg/dL 70-110 H TESTED AT [facility] 6720 (BEAKER) (test code = [place] 1538) [address] [id number] 04:29:00 Test Item Value Reference Range Interpretation Comments PHOSPHORUS (BEAKER) (test code = 3.2 mg/dL 2.3-4.7 604) [id number] 04:29:00 Test Item Value Reference Range Interpretation Comments MAGNESIUM (BEAKER) (test code = 1.6 mg/dL 1.6-2.6 627) BASIC METABOLIC [id number] 04:29:00 Test Item Value Reference Range Interpretation [...] DIALYSIS PATIEN TS. LACTIC ACID, VENOUS, WHOLE [id number] 04:27:00 Test Item Value Reference Range Interpretation Comments LACTATE BLOOD VENOUS (2) (BEAKER) 0.7 mmol/L 0.5-2.2 (test code = 2872) Effective 12/16/2015: Units/Reference Range ChangeNew: 0.5-2.2 mmol/L Previous: 5-20 mg/dLCBC W/PLT COUNT & AUTO [id number] 04:11:00 Test Item Value Reference Range Interpretation [...] EOSINOPHILS ABSOLUTE COUNT 0.15 K/ L 0.04-0.36 ([facility]) (test code = 416) BASOPHILS ABSOLUTE COUNT ([facility]) 0.03 K/ L 0.01-0.08 (test code = 417) IMMATURE GRANULOCYTES-RELATIVE 1 % 0-1 PERCENT ([facility]) (test code = 2801) POCT-GLUCOSE [id number] 22:31:00 Test Item Value Reference Range Interpretation Comments POC-GLUCOSE METER 206 mg/dL 70-110 H TESTED AT [facility] 67[address] ([facility]) (test code = SY[place] 1538) [address] POCT-GLUCOSE [id number] 17:31:00 Test Item Value Reference Range Interpretation Comments POC-GLUCOSE METER 207 mg/dL 70-110 H TESTED AT [facility] 6720 ([facility]) (test code = SYDNEE Rendon [facility] 1538) [address] ANG, NEPHROSTOMY, PERC, EXTERNAL [id number] 14:49:00Reason for exam:- >Needs left nephrostomy tube. [...] needle. The tract was dilated to 8 Georgian. A small bore catheter was advanced into the upper collecting system. A nephrostogram demonstrated marked hydronephrosis. Approximately 400 cc of. Once urine was removed from the upper collecting system. A nurse was present and monitored blood pressure measurements, pulse oximetry and ECG tracings. The patient tolerated the procedure well. Impression:Successful, uncomplicated placement of a left percutaneous nephrostomy tube. Signed: Soledad [place] Verified Date/Time: 11/28/2017 14:49:28 Reading Location: [place] [address] Angio Body Reading Room 02:49 PMPOCT-GLUCOSE [id number] 11:01:00 Test Item Value Reference Range Interpretation Comments POC-GLUCOSE METER 195 mg/dL 70-110 H TESTED AT [facility] 6720 ([facility]) (test code = [place] 1538) [address] POCT-LACTIC ACID, [id number] 04:41:00 Test Item Value Reference Range Interpretation Comments POC-LACTIC ACID, 1.2 mmol/L 0.9-1.7 TESTED AT [facility] 6720 VENOUS ([facility]) ([facility] [place] code = 2805) [address] LEGIONELLA ANTIGEN, [id number] 04:06:00 Test Item Value Reference Range Interpretation Comments L. PNEUMOPHILA Negative - see Negative fo r L. SEROGP 1 UR AG comment pneumophila ([employer]) (test code serogrou p 1 antigen, = 1156) suggesting no r ecent or current infe ction with this serog roup. Legionellosis c annot be ruled out si nce other serogroup s and species may cau se disease. STREP PNEUMONIAE [id number] 04:04:00 Test Item Value Reference Range Interpretation Comments STREP PNEUMONIAE Presumptive negative Presumptive negative ANTIGEN (SnacksquareAKER) for pneumococcal for pneumococcal (test code = 1615) pneumonia - see pneumonia - see comment commen Presumptive negative for pneumococcal pneumonia, suggesting no current or recent pneumococcal infection. Infection due to S. pneumoniae cannot be ruled out since the antigen present in the sample may be below the detection limit of the test.PROTHROMBIN TIME/[id number] 02:58:00 Test Item Value Reference Range Interpretation Comments PROTIME (SnacksquareAKER) (test code = 14.1 seconds 11.7-14.7 759) INR (SnacksquareAKER) (test code = 370) 1.1 <=5.9 RECOMMENDED COUMADIN/WARFARIN INR THERAPY RANGESSTANDARD DOSE: 2.0 - 3.0 Includes: PROPHYLAXIS forvenous thrombosis, systemic embolization; TREATMENT for venous thrombosis and/or pulmonary embolus.HIGH RISK: Target INR is 2.5-3.5 for patients with mechanical heart valves.[id number] 02:56:00 Test Item Value Reference Range Interpretation Comments PHOSPHORUS (BEAKER) (test code = 3.2 mg/dL 2.3-4.7 604) [id number] 02:56:00 Test Item Value Reference Range Interpretation Comments MAGNESIUM (BEAKER) (test code = 1.9 mg/dL 1.6-2.6 627) HEPATIC FUNCTION [id number] 02:56:00 Test Item Value Reference Range Interpretation [...] = 17 U/L 6-55 347) BASIC METABOLIC [id number] 02:30:00 Test Item Value Reference Range Interpretation [...] DIALYSIS PATIEN TS. LACTIC ACID, VENOUS, WHOLE [id number] 02:26:00 Test Item Value Reference Range Interpretation Comments LACTATE BLOOD VENOUS (2) (BEAKER) 1.3 mmol/L 0.5-2.2 (test code = 2872) Effective 12/16/2015: Units/Reference Range ChangeNew: 0.5-2.2 mmol/L Previous: 5-20 mg/dLCBC W/PLT COUNT & AUTO [id number] 02:17:00 Test Item Value Reference Range Interpretation [...] (BEAKER) (test code = 2801) POCT-LACTIC ACID, [id number] 02:01:00 Test Item Value Reference Range Interpretation Comments POC-LACTIC ACID, 2.9 mmol/L 0.9-1.7 H TESTED AT [facility] 6720 VENOUS (BEAKER) (test [facility] code = 2805) [address] CT, [id number] 00:55:00Addendum BeginsREPORT STATUS:A Addendum: Benign as well as neoplastic processes would be included in differential diagnosis for the left UPJ level obstruction. Results including the possibility of an infected obstructed left renal collecting system discussed with Dr. Singh. Signed: Sd Arellano MDReport Verified Date/Time: 11/28/2017 00:55:04 Reading Location: [address] RoomAddendum EndsFINAL REPORT EXAMINATION: CT SCAN OF [...] Constipation. Mildly prominent spleen, 13 cm. Signed: Sd Arellano MDReport Verified Date/Time:11/28/2017 00:48:48 Reading Location: [address] Reading Room URINALYSIS W/ [id number] 00:09:00 Test Item Value Reference Range Interpretation [...] code Urine, Clean Catch = 2795) BLOOD [id number] 17:00:00 Test Item Value Reference Range Interpretation Comments CULTURE (BEAKER) (test No growth in 5 days code = 1095) BLOOD [id number] 15:30:00 Test Item Value Reference Range Interpretation [...] required. This sample was tested at the [facility] Clinical Microbiology Laboratory using the Kampyle Blood Culture ID Panel.This test is FDA cleared for in vitro diagnostic use and has been verified and approved by [facility] use. Reference Range: Not DetectedBLOOD [id number] 23:00:00 Test Item Value Reference Range Interpretation Comments CULTURE (BEAKER) (test No growth in 5 days code = 1095) MISCELLANEOUS LAB [id number] 14:42:00 Test Item Value Reference Range Interpretation Comments SCAN RESULT (test code = 1405117) Result comments: Coagulase Negative Staphylococcus Species (CoNS) [...] required. This sample was tested at the [facility] Clinical Microbiology Laboratory using the Kampyle Blood Culture ID Panel. This test is FDA cleared for in vitro diagnostic use and has been verified and approved by the [facility] Clinical Microbiology laboratory for clinical use. Reference Range: Not DetectedPOCT-GLUCOSE [id number] 13:10:00 Test Item Value Reference Range Interpretation Comments POC-GLUCOSE METER 196 mg/dL 70-110 H TESTED AT [facility] 67 ([facility]) (test code = SYDNEE Rendon [place] 1538) [address] URINE [id number] 11:19:00 Test Item Value Reference Range Interpretation Comments CULTURE ([facility] (test A >100, 000 col/mL Raheel code = 1095) albicans <10,000 col/mL skin floraPOCT-GLUCOSE [id number] 07:50:00 Test Item Value Reference Range Interpretation Comments POC-GLUCOSE METER 190 mg/dL 70-110 H TESTED AT [facility] 67 ([facility]) (test code = SYDNEE Rendon [facility] 1538) [address] [id number] 06:18:00 Test Item Value Reference Range Interpretation Comments PHOSPHORUS (BEAKER) (test code = 3.3 mg/dL 2.3-4.7 604) [id number] 06:18:00 Test Item Value Reference Range Interpretation Comments MAGNESIUM (BEAKER) (test code = 1.4 mg/dL 1.6-2.6 L 627) BASIC METABOLIC [id number] 06:18:00 Test Item Value Reference Range Interpretation [...] PATIEN TS. CBC W/PLT COUNT & AUTO [id number] 06:01:00 Test Item Value Reference Range Interpretation [...] PERCENT (BEAKER) (test code = 2801) POCT-GLUCOSE [id number] 21:08:00 Test Item Value Reference Range Interpretation Comments POC-GLUCOSE METER 157 mg/dL 70-110 H TESTED AT [place] [address] ([facility] (test code = [facility] 1538) [address] POCT-GLUCOSE [id number] 11:59:00 Test Item Value Reference Range Interpretation Comments POC-GLUCOSE METER 151 mg/dL 70-110 H TESTED AT [place] [address] ([facility]) (test code = [facility] 1538) [address] CBC W/PLT COUNT & AUTO [id number] 11:31:00 Test Item Value Reference Range Interpretation [...] (BEAKER) (test code Normal = 762) POCT-GLUCOSE [id number] 07:43:00 Test Item Value Reference Range Interpretation Comments POC-GLUCOSE METER 151 mg/dL 70-110 H TESTED AT [facility] 6720 (BEAKER) (test code = SYDNEE [place] 1538) [address] BASIC METABOLIC [id number] 06:24:00 Test Item Value Reference Range Interpretation [...] S NOT APPLICABLE FOR DIALYSIS PATIEN TS. [id number] 06:23:00 Test Item Value Reference Range Interpretation Comments PHOSPHORUS (BEAKER) (test code = 3.5 mg/dL 2.3-4.7 604) [id number] 06:23:00 Test Item Value Reference Range Interpretation Comments MAGNESIUM (BEAKER) (test code = 1.7 mg/dL 1.6-2.6 627) POCT-GLUCOSE [id number] 21:50:00 Test Item Value Reference Range Interpretation Comments POC-GLUCOSE METER 205 mg/dL 70-110 H TESTED AT [facility] 6720 (BEAKER) (test code = [facility] [place] 1538) [address] POCT-GLUCOSE [id number] 17:18:00 Test Item Value Reference Range Interpretation Comments POC-GLUCOSE METER 161 mg/dL 70-110 H TESTED AT [facility] 6720 (BEAKER) (test code = [facility] [place] 1538) [address] URINALYSIS W/ [id number] 13:16:00 Test Item Value Reference Range Interpretation [...] 516) SOURCE(BEAKER) (test code = Urine, Voided 2475) POCT-GLUCOSE [id number] 08:34:00 Test Item Value Reference Range Interpretation Comments POC-GLUCOSE METER 154 mg/dL 70-110 H TESTED AT [facility] 6720 (BEAKER) (test code = [place] 1538) [address] BASIC METABOLIC [id number] 07:34:00 Test Item Value Reference Range Interpretation [...] S NOT APPLICABLE FOR DIALYSIS PATIEN TS. [id number] 07:32:00 Test Item Value Reference Range Interpretation Comments PHOSPHORUS (BEAKER) (test code = 3.1 mg/dL 2.3-4.7 604) [id number] 07:32:00 Test Item Value Reference Range Interpretation Comments MAGNESIUM (BEAKER) (test code = 1.6 mg/dL 1.6-2.6 627) CBC W/PLT COUNT & AUTO [id number] 05:48:00 Test Item Value Reference Range Interpretation [...] PERCENT (BEAKER) (test code = 2801) POCT-GLUCOSE [id number] 22:24:00 Test Item Value Reference Range Interpretation Comments POC-GLUCOSE METER 119 mg/dL 70-110 H TESTED AT [place] [address] (BEAKER) (test code = [facility] 1538) [address] POCT-GLUCOSE [id number] 17:09:00 Test Item Value Reference Range Interpretation Comments POC-GLUCOSE METER 110 mg/dL 70-110 TESTED AT [place] [address] (BEAKER) (test code = [facility] 1538) [address] BLOOD [id number] 17:00:00 Test Item Value Reference Range Interpretation Comments CULTURE (BEAKER) (test No growth in 5 days code = 1095) BLOOD [id number] 17:00:00 Test Item Value Reference Range Interpretation Comments CULTURE (BEAKER) (test No growth in 5 days code = 1095) POCT-GLUCOSE [id number] 11:34:00 Test Item Value Reference Range Interpretation Comments POC-GLUCOSE METER 202 mg/dL 70-110 H TESTED AT [place] [address] (BEAKER) (test code = [facility] 1538) [address] POCT-GLUCOSE [id number] 07:55:00 Test Item Value Reference Range Interpretation Comments POC-GLUCOSE METER 147 mg/dL 70-110 H TESTED AT [facility] 6720 (BEAKER) (test code = [place]EE [place] 1538) [address] BASIC METABOLIC [id number] 05:37:00 Test Item Value Reference Range Interpretation [...] S NOT APPLICABLE FOR DIALYSIS PATIEN TS. [id number] 05:35:00 Test Item Value Reference Range Interpretation Comments PHOSPHORUS (BEAKER) (test code = 2.8 mg/dL 2.3-4.7 604) [id number] 05:35:00 Test Item Value Reference Range Interpretation Comments MAGNESIUM (BEAKER) (test code = 1.6 mg/dL 1.6-2.6 627) CBC W/PLT COUNT & AUTO [id number] 05:12:00 Test Item Value Reference Range Interpretation [...] PERCENT (BEAKER) (test code = 2801) POCT-GLUCOSE [id number] 22:02:00 Test Item Value Reference Range Interpretation Comments POC-GLUCOSE METER 107 mg/dL 70-110 TESTED AT [facility] 6720 (BEAKER) (test code = [place] 1538) [address] CT, [id number] 20:36:00FINAL REPORT CT of the abdomen and [...] Bowerseport Verified Date/Time: 06/22/2017 20:36:43 Reading Location: [address] Consult Reading Room POCT-GLUCOSE [id number] 16:27:00 Test Item Value Reference Range Interpretation Comments POC-GLUCOSE METER 136 mg/dL 70-110 H TESTED AT [place] [address] [facility] (test code = SYDNEE Rendon [facility] 1538) [address] POCT-GLUCOSE [id number] 12:07:00 Test Item Value Reference Range Interpretation Comments POC-GLUCOSE METER 150 mg/dL 70-110 H TESTED AT [place] [address] ([facility] (test code = [facility] 1538) [address] POCT-GLUCOSE [id number] 07:45:00 Test Item Value Reference Range Interpretation Comments POC-GLUCOSE METER 201 mg/dL 70-110 H TESTED AT [facility] 6720 (BEAKER) (test code = [place] 1538) [address] BASIC METABOLIC [id number] 05:21:00 Test Item Value Reference Range Interpretation [...] S NOT APPLICABLE FOR DIALYSIS PATIEN TS. [id number] 05:09:00 Test Item Value Reference Range Interpretation Comments MAGNESIUM (BEAKER) 1.5 mg/dL 1.6-2.6 L Specimen slightly (test code = 627) hemolyzed [id number] 05:09:00 Test Item Value Reference Range Interpretation Comments PHOSPHORUS (BEAKER) 2.8 mg/dL 2.3-4.7 Specimen slightly (test code = 604) hemolyzed CBC W/PLT COUNT & AUTO [id number] 04:32:00 Test Item Value Reference Range Interpretation [...] PERCENT (BEAKER) (test code = 2801) POCT-GLUCOSE [id number] 21:34:00 Test Item Value Reference Range Interpretation Comments POC-GLUCOSE METER 104 mg/dL 70-110 TESTED AT [facility] 6720 (BEAKER) (test code = [place] 1538) [address] POCT-GLUCOSE [id number] 17:16:00 Test Item Value Reference Range Interpretation Comments POC-GLUCOSE METER 262 mg/dL 70-110 H TESTED AT [place] [address] ([facility]) (test code = SYDNEE Rendon [facility] 1538) [address] URINE [id number] 11:56:00 Test Item Value Reference Range Interpretation Comments CULTURE ([facility]) (test A 50-59 ,000 col/mL Raheel code = 1095) glabrata 10-19,000 col/ml skin floraPOCT-GLUCOSE [id number] 11:29:00 Test Item Value Reference Range Interpretation Comments POC-GLUCOSE METER 148 mg/dL 70-110 H TESTED AT [place] [address] ([facility]) (test code = SYDNEE Rendon [facility] 1538) [address] POCT-GLUCOSE [id number] 08:58:00 Test Item Value Reference Range Interpretation Comments POC-GLUCOSE METER 141 mg/dL 70-110 H TESTED AT [place] [address] ([facility]) (test code = [facility] Justice [facility] 1538) [address] BASIC METABOLIC [id number] 05:45:00 Test Item Value Reference Range Interpretation [...] S NOT APPLICABLE FOR DIALYSIS PATIEN TS. [id number] 05:30:00 Test Item Value Reference Range Interpretation Comments PHOSPHORUS (BEAKER) (test code = 2.8 mg/dL 2.3-4.7 604) [id number] 05:30:00 Test Item Value Reference Range Interpretation Comments MAGNESIUM (BEAKER) (test code = 1.6 mg/dL 1.6-2.6 627) CBC W/PLT COUNT & AUTO [id number] 05:07:00 Test Item Value Reference Range Interpretation [...] PERCENT (BEAKER) (test code = 2801) POCT-GLUCOSE [id number] 21:04:00 Test Item Value Reference Range Interpretation Comments POC-GLUCOSE METER 139 mg/dL 70-110 H TESTED AT [facility] 67 ([facility] (test code = [place] 1538) [address] POCT-GLUCOSE [id number] 17:13:00 Test Item Value Reference Range Interpretation Comments POC-GLUCOSE METER 127 mg/dL 70-110 H TESTED AT [place] [address] ([facility] (test code = [place] 1538) [address] POCT-GLUCOSE [id number] 11:25:00 Test Item Value Reference Range Interpretation Comments POC-GLUCOSE METER 124 mg/dL 70-110 H TESTED AT [place] [address] ([facility] (test code = [place] 1538) [address] POCT-GLUCOSE [id number] 07:28:00 Test Item Value Reference Range Interpretation Comments POC-GLUCOSE METER 137 mg/dL 70-110 H TESTED AT [place] [address] ([facility] (test code = [place] 1538) [address] [id number] 06:43:00 Test Item Value Reference Range Interpretation Comments PHOSPHORUS (BEAKER) (test code = 2.9 mg/dL 2.3-4.7 604) [id number] 06:43:00 Test Item Value Reference Range Interpretation Comments MAGNESIUM (BEAKER) (test code = 1.6 mg/dL 1.6-2.6 627) BASIC METABOLIC [id number] 06:43:00 Test Item Value Reference Range Interpretation [...] PATIEN TS. CBC W/PLT COUNT & AUTO [id number] 05:55:00 Test Item Value Reference Range Interpretation [...] PERCENT (BEAKER) (test code = 2801) POCT-GLUCOSE [id number] 21:37:00 Test Item Value Reference Range Interpretation Comments POC-GLUCOSE METER 143 mg/dL 70-110 H TESTED AT [facility] 6720 ([facility] (test code = [facility] 1538) [address] POCT-GLUCOSE [id number] 18:04:00 Test Item Value Reference Range Interpretation Comments POC-GLUCOSE METER 143 mg/dL 70-110 H TESTED AT [facility] 6720 ([facility]) (test code = [facility] 1538) [address] VANCOMYCIN LEVEL, [id number] 15:00:00 Test Item Value Reference Range Interpretation Comments VANCOMYCIN TROUGH (BEAKER) (test 9.0 ug/mL 10.0-20.0 L code = 522) Please hold next vanc dose until vanc trough results.TISSUE [id number] 14:20:00Surgical Pathology Report Case: [id number] Authorizing Provider: Jag Escalera MD Collected: 06/13/2017 1615 Ordering Location: [facility] Received: 06/14/2017 0753 SERVICES Pathologist: Aquilino Diaz MD Specimen: SoftTissue, Other, right upj segment RENAL PELVIS, RIGHT U RETEROPELVIC JUNCTION, BIOPSY:- HAPHAZARD ARRANGEMENT OF SMOOTH MUSCLE BUNDLES WITH JENNIFER-MUSCULAR FIBROSIS, CONSISTENT WITH URETEROPELVIC JUNCTION OBSTRUCTION- NEGATIVE FOR DYSPLASIA OR MALIGNANCYSigning Pathologist Direct Phone Line: [phone] signed by Aquilino Diaz MD on 06/19/2017 at 2:20 [id number] obstructionRight UPJ segmentReceived fresh labeled "right UPJ segment" are two irregular pink-camacho to mary-white rubbery fragments of soft tissue measuring 1.5 x1.0 x 0.2 cm in aggregate. Sectioning reveals no discrete masses. The specimen is entirely submittedin cassette A1. DB/plPerformed.POCT- GLUCOSE [id number] 13:48:00 Test Item Value Reference Range Interpretation Comments POC-GLUCOSE METER 156 mg/dL 70-110 H TESTED AT [place] [address] ([facility]) (test code = SYDNEE Rendon [facility] 1538) [address] RAD, CHEST, 2 [id number] 10:31:00Reason for exam:->feverFINAL REPORT Chest x-ray, PA [...] Verified Date/Time: 06/19/2017 10:31:11 Re ading Location: [facility] Radiology Reading Room POCT-GLUCOSE [id number] 07:32:00 Test Item Value Reference Range Interpretation Comments POC-GLUCOSE METER 163 mg/dL 70-110 H TESTED AT [facility] 67 ([facility]) (test code = GILBERTOCO Justice [facility] 1538) [address] [id number] 06:28:00 Test Item Value Reference Range Interpretation Comments PHOSPHORUS (BEAKER) (test code = 4.0 mg/dL 2.3-4.7 604) [id number] 06:28:00 Test Item Value Reference Range Interpretation Comments MAGNESIUM (BEAKER) (test code = 1.9 mg/dL 1.6-2.6 627) BASIC METABOLIC [id number] 06:28:00 Test Item Value Reference Range Interpretation [...] PATIEN TS. CBC W/PLT COUNT & AUTO [id number] 06:27:00 Test Item Value Reference Range Interpretation [...] PERCENT (BEAKER) (test code = 2801) POCT-GLUCOSE [id number] 21:24:00 Test Item Value Reference Range Interpretation Comments POC-GLUCOSE METER 172 mg/dL 70-110 H TESTED AT [facility] 6720 (BEAKER) (test [facility] = [facility] [place] 1538) [address] POCT-GLUCOSE [id number] 17:00:00 Test Item Value Reference Range Interpretation Comments POC-GLUCOSE METER 164 mg/dL 70-110 H TESTED AT [facility] 6720 (BEAKER) (test code = [facility] [place] 1538) [address] POCT-GLUCOSE [id number] 13:16:00 Test Item Value Reference Range Interpretation Comments POC-GLUCOSE METER 168 mg/dL 70-110 H TESTED AT [facility] 6720 (BEAKER) (test code = SYDNEE [place] 1538) [address] POCT-GLUCOSE [id number] 07:26:00 Test Item Value Reference Range Interpretation Comments POC-GLUCOSE METER 164 mg/dL 70-110 H TESTED AT [facility] 6720 (BEAKER) (test code = [place] 1538) [address] BASIC METABOLIC [id number] 05:05:00 Test Item Value Reference Range Interpretation [...] S NOT APPLICABLE FOR DIALYSIS PATIEN TS. [id number] 05:04:00 Test Item Value Reference Range Interpretation Comments PHOSPHORUS (BEAKER) (test code = 4.8 mg/dL 2.3-4.7 H 604) [id number] 05:04:00 Test Item Value Reference Range Interpretation Comments MAGNESIUM (BEAKER) (test code = 1.6 mg/dL 1.6-2.6 627) CBC W/PLT COUNT & AUTO [id number] 03:57:00 Test Item Value Reference Range Interpretation [...] PERCENT (BEAKER) (test code = 2801) CT, [id number] 20:27:00Reason for exam:->flank pain s/p pyeloplasty FINAL [...] MDReport Verified Date/Time: 06/17/2017 20:27:27 Reading Location: [address] Reading Room CBC (HEMOGRAM ONLY)2017-06-17 20:19:00 [...] 150-430 (test code = 756) BASIC METABOLIC [id number] 20:18:00 Test Item Value Reference Range Interpretation [...] NOT APPLICABLE FOR DIALYSIS PATIEN TS. POCT-GLUCOSE [id number] 12:06:00 Test Item Value Reference Range Interpretation Comments POC-GLUCOSE METER 160 mg/dL 70-110 H TESTED AT [facility] 6720 ([facility]) (test code = [place] 1538) [address] POCT-GLUCOSE [id number] 07:33:00 Test Item Value Reference Range Interpretation Comments POC-GLUCOSE METER 246 mg/dL 70-110 H TESTED AT [place] [address] (BEAKER) (test code = SYDNEE Rendon [facility] 1538) [address] POCT-GLUCOSE [id number] 22:02:00 Test Item Value Reference Range Interpretation Comments POC-GLUCOSE METER 206 mg/dL 70-110 H TESTED AT [place] [address] (BEAKER) (test code = SYDNEE Rendon [facility] 1538) [address] POCT-GLUCOSE [id number] 17:55:00 Test Item Value Reference Range Interpretation Comments POC-GLUCOSE METER 265 mg/dL 70-110 H TESTED AT [place] [address] (BEAKER) (test code = SYDNEE Rendon [facility] 1538) [address] POCT-GLUCOSE [id number] 08:39:00 Test Item Value Reference Range Interpretation Comments POC-GLUCOSE METER 189 mg/dL 70-110 H TESTED AT [place] [address] (BEAKER) (test code = SYDNEE Rendon [facility] 1538) [address] POCT-GLUCOSE [id number] 07:44:00 Test Item Value Reference Range Interpretation Comments POC-GLUCOSE METER 173 mg/dL 70-110 H TESTED AT [place] [address] (BEAKER) (test code = [facility] Justice [facility] 1538) [address] BASIC METABOLIC [id number] 06:49:00 Test Item Value Reference Range Interpretation [...] APPLICABLE FOR DIALYSIS PATIEN TS. HEMOGLOBIN AND [id number] 06:28:00 Test Item Value Reference Range Interpretation Comments HEMOGLOBIN (BEAKER) (test code = 12.3 GM/DL 11.2-15.7 410) HEMATOCRIT (BEAKER) (test code = 38.8 % 34.1-44.9 411) BASIC METABOLIC [id number] 11:05:00 Test Item Value Reference Range Interpretation [...] APPLICABLE FOR DIALYSIS PATIEN TS. HEMOGLOBIN AND [id number] 10:48:00 Test Item Value Reference Range Interpretation Comments HEMOGLOBIN (BEAKER) (test code = 13.4 GM/DL 11.2-15.7 410) HEMATOCRIT (BEAKER) (test code = 41.7 % 34.1-44.9 411) POCT-GLUCOSE [id number] 10:25:00 Test Item Value Reference Range Interpretation Comments POC-GLUCOSE METER 216 mg/dL 70-110 H TESTED AT [facility] 6720 (BEAKER) (test code = [place] 1538) [address] TISSUE [id number] 12:11:00Surgical Pathology Report Case: [id number] Authorizing Provider: Susan Ivory MD Collected: 05/02/2017 1147 Ordering Location: [facility] Endoscopy Received: 05/02/2017 1533 Services Pathologist: Tung Connor MD Specimens: A) - Polyp, Colon - Right/Ascending B) -Polyp, Colon - Rectum A. COLON, RIGHT/ASCEN DING POLYP, BIOPSY: - FRAGMENT OF TUBULAR ADENOMA (x1) - SEPARATE FRAGMENTS OF UNREMARKABLE COLONIC MUCOSAB. RECTUM, POLYP, BIOPSY: - FRAGMENTS OF HYPERPLASTIC POLYP (x3) Signing PathologistDirect Phone Line: [phone] signed by Tung Connor MD on 05/03/2017 at 12:11 [id number], large intestine without perforation or abscess without [...] camacho tissue, submitted B1. CG/pl Performed.URINALYSIS W/ [id number] 14:08:00 Test Item Value Reference Range Interpretation [...] SOURCE(BEAKER) (test code = 2795) BASIC METABOLIC [id number] 12:36:00 Test Item Value Reference Range Interpretation [...] S NOT APPLICABLE FOR DIALYSIS PATIEN TS. [id number] 11:58:00 Test Item Value Reference Range Interpretation Comments PARTIAL THROMBOPLASTIN TIME 35.7 seconds 22.5-36.0 (BEAKER) (test code = 760) PROTHROMBIN TIME/[id number] 11:57:00 Test Item Value Reference Range Interpretation [...] 417) IMMATURE GRANULOCYTES-RELATIVE 1 % 0-1 PERCENT ([facility]) (test code = 2801) POCT-GLUCOSE [id number] 17:46:00 Test Item Value Reference Range Interpretation Comments POC-GLUCOSE METER 201 mg/dL 70-110 H TESTED AT [place] [address] ([facility]) (test code = [place] 1538) [id number] POCT-GLUCOSE [id number] 14:15:00 Test Item Value Reference Range Interpretation Comments POC-GLUCOSE METER 152 mg/dL 70-110 H TESTED AT [place] [address] ([facility]) (test code = [place] 1538) [id number] POCT-GLUCOSE [id number] 08:21:00 Test Item Value Reference Range Interpretation Comments POC-GLUCOSE METER 149 mg/dL 70-110 H TESTED AT [place] [address] ([facility]) (test code = [place] 1538) [id number] POCT-GLUCOSE [id number] 21:11:00 Test Item Value Reference Range Interpretation Comments POC-GLUCOSE METER 201 mg/dL 70-110 H TESTED AT [place] [address] ([facility]) (test code = [place]EE [place] 1538) [address] POCT-GLUCOSE [id number] 18:48:00 Test Item Value Reference Range Interpretation Comments POC-GLUCOSE METER 188 mg/dL 70-110 H TESTED AT [place] [address] ([facility]) (test code = SYDNEE Rendon [place] 1538) [address] POCT-GLUCOSE [id number] 13:32:00 Test Item Value Reference Range Interpretation Comments POC-GLUCOSE METER 151 mg/dL 70-110 H TESTED AT [place] [address] ([facility]) (test code = [place]EE R[place] 1538) [address] POCT-GLUCOSE [id number] 08:31:00 Test Item Value Reference Range Interpretation Comments POC-GLUCOSE METER 149 mg/dL 70-110 H TESTED AT [place] [address] ([facility]) (test code = [place] 1538) [address] BASIC METABOLIC [id number] 07:11:00 Test Item Value Reference Range Interpretation Comments SODIUM ([facility]) 138 meq/L 136-145 (test code [...] PATIEN TS. CBC W/PLT COUNT & AUTO [id number] 06:53:00 Test Item Value Reference Range Interpretation [...] PERCENT (BEAKER) (test code = 2801) POCT-GLUCOSE [id number] 21:07:00 Test Item Value Reference Range Interpretation Comments POC-GLUCOSE METER 224 mg/dL 70-110 H TESTED AT [place] [address] ([facility]) (test code = SYDNEE Rendon [facility] 1538) [address] POCT-GLUCOSE [id number] 17:14:00 Test Item Value Reference Range Interpretation Comments POC-GLUCOSE METER 121 mg/dL 70-110 H TESTED AT [place] [address] ([facility]) (test code = SYDNEE Rendon [facility] 1538) [address] POCT-GLUCOSE [id number] 11:03:00 Test Item Value Reference Range Interpretation Comments POC-GLUCOSE METER 161 mg/dL 70-110 H TESTED AT [place] [address] ([facility]) (test code = SYDNEE Rendon [facility] 1538) 12[address] POCT-GLUCOSE [id number] 07:24:00 Test Item Value Reference Range Interpretation Comments POC-GLUCOSE METER 191 mg/dL 70-110 H TESTED AT [place] [address] ([facility] (test code = [place] 1538) [address] BASIC METABOLIC [id number] 04:45:00 Test Item Value Reference Range Interpretation [...] NOT APPLICABLE FOR DIALYSIS PATIEN TS. POCT-GLUCOSE [id number] 21:03:00 Test Item Value Reference Range Interpretation Comments POC-GLUCOSE METER 164 mg/dL 70-110 H TESTED AT [facility] 6720 (BEAKER) (test code = [place] 1538) [address] BLOOD [id number] 18:00:00 Test Item Value Reference Range Interpretation Comments CULTURE (BEAKER) (test No growth in 5 days code = 1095) BLOOD [id number] 18:00:00 Test Item Value Reference Range Interpretation Comments CULTURE (BEAKER) (test No growth in 5 days code = 1095) POCT-GLUCOSE [id number] 17:18:00 Test Item Value Reference Range Interpretation Comments POC-GLUCOSE METER 154 mg/dL 70-110 H TESTED AT [facility] 6720 (BEAKER) (test code = [place] 1538) [address] POCT-GLUCOSE [id number] 11:29:00 Test Item Value Reference Range Interpretation Comments POC-GLUCOSE METER 117 mg/dL 70-110 H [facility] (BEAKER) (test code = [place] 1538) [address] URINE [id number] 09:54:00 Test Item Value Reference Range Interpretation Comments CULTURE (BEAKER) (test code = 1095) No growth POCT-GLUCOSE [id number] 07:34:00 Test Item Value Reference Range Interpretation Comments POC-GLUCOSE METER 120 mg/dL 70-110 H TESTED AT [facility] 67[address] (BEAKER) (test code = [place] 1538) [address] BASIC METABOLIC [id number] 05:18:00 Test Item Value Reference Range Interpretation [...] PATIEN TS. CBC W/PLT COUNT & AUTO [id number] 04:59:00 Test Item Value Reference Range Interpretation [...] PERCENT (BEAKER) (test code = 2801) POCT-GLUCOSE [id number] 21:33:00 Test Item Value Reference Range Interpretation Comments POC-GLUCOSE METER 114 mg/dL 70-110 H TESTED AT [facility] 67[address] ([facility] (test code = [place] 1538) [address] POCT-GLUCOSE [id number] 17:43:00 Test Item Value Reference Range Interpretation Comments POC-GLUCOSE METER 177 mg/dL 70-110 H TESTED AT [facility] 67[address] (BEAKER) (test code = [place] 1538) [address] POCT-GLUCOSE [id number] 11:19:00 Test Item Value Reference Range Interpretation Comments POC-GLUCOSE METER 183 mg/dL 70-110 H TESTED AT [facility] 67[address] (BEAKER) (test code = SYDNEE [place] 1538) [address] POCT-GLUCOSE [id number] 07:56:00 Test Item Value Reference Range Interpretation Comments POC-GLUCOSE METER 131 mg/dL 70-110 H TESTED AT [facility] 67[address] (BEAKER) (test code = SYDNEE [place]end[place] 1538) [address] BASIC METABOLIC [id number] 07:52:00 Test Item Value Reference Range Interpretation [...] PATIEN TS. CBC W/PLT COUNT & AUTO [id number] 06:52:00 Test Item Value Reference Range Interpretation [...] L 0.00-0.20 (test code = 417) 0.00POCT-GLUCOSE [id number] 21:16:00 Test Item Value Reference Range Interpretation Comments POC-GLUCOSE METER 141 mg/dL 70-110 H TESTED AT [facility] 67[address] (BEAKER) (test code = [place] 1538) [address] POCT-GLUCOSE [id number] 17:41:00 Test Item Value Reference Range Interpretation Comments POC-GLUCOSE METER 154 mg/dL 70-110 H TESTED AT [facility] 67[address] (BEAKER) (test code = [place] 1538) [address] URINALYSIS W/ [id number] 15:10:00 Test Item Value Reference Range Interpretation [...] code Urine, Clean Catch = 2795) POCT-GLUCOSE [id number] 12:04:00 Test Item Value Reference Range Interpretation Comments POC-GLUCOSE METER 171 mg/dL 70-110 H TESTED AT [place] [address] (BEAKER) (test code = [place] 1538) [address] URINE [id number] 10:02:00 Test Item Value Reference Range Interpretation Comments CULTURE (BEAKER) (test code = 1095) No growth POCT-GLUCOSE [id number] 08:15:00 Test Item Value Reference Range Interpretation Comments POC-GLUCOSE METER 118 mg/dL 70-110 H TESTED AT [place] [address] (BEAKER) (test code = [place] 1538) [address] BASIC METABOLIC [id number] 05:04:00 Test Item Value Reference Range Interpretation [...] PATIEN TS. CBC W/PLT COUNT & AUTO [id number] 04:57:00 Test Item Value Reference Range Interpretation [...] L 0.00-0.20 (test code = 417) 0.00POCT-GLUCOSE [id number] 21:51:00 Test Item Value Reference Range Interpretation Comments POC-GLUCOSE METER 159 mg/dL 70-110 H TESTED AT [facility] 67[address] (BEAKER) (test code = [facility] 1538) [address] RAPID DRUG SCREEN, [id number] 21:21:00 Test Item Value Reference Range Interpretation [...] situations. Chain of custody not maintained. Some yfqn-yby-chltupv medications, as well as adulterants, may cause inaccurate results. Clinical correlation should be applied. A more comprehensive drug screen or confirmation of a detected drug may be performed upon request.POCT-GLUCOSE [id number] 14:21:00 Test Item Value Reference Range Interpretation Comments POC-GLUCOSE METER 113 mg/dL 70-110 H TESTED AT [place] [address] ([facility]) (test code = SYDNEE Rendon [facility] 1538) [address] [id number] 10:15:00 Test Item Value Reference Range Interpretation Comments RPR SCREEN ([facility]) (test code = Nonreactive Nonreactive 420) URINE [id number] 09:21:00 Test Item Value Reference Range Interpretation Comments CULTURE ([facility]) (test >100,000 col/mL skin code = 1095) mckenna POCT-GLUCOSE [id number] 08:00:00 Test Item Value Reference Range Interpretation Comments POC-GLUCOSE METER 128 mg/dL 70-110 H TESTED AT [place] [address] ([facility]) (test code = [facility] Justice [facility] 1538) [address] CBC (HEMOGRAM ONLY)2017-03-04 07:25:00 Test Item Value Reference Range Interpretation Comments WHITE BLOOD CELL COUNT (AKER) 13.9 K/ L 4.0-10.0 H (test code = 775) RED BLOOD CELL COUNT (AKER) 4.28 M/ L 4.00-5.00 (test code = [...] (BEAKER) (test code = 413) 0.00BASIC METABOLIC [id number] 07:02:00 Test Item Value Reference Range Interpretation [...] NOT APPLICABLE FOR DIALYSIS PATIEN TS. POCT-GLUCOSE [id number] 21:33:00 Test Item Value Reference Range Interpretation Comments POC-GLUCOSE METER 163 mg/dL 70-110 H TESTED AT [facility] 67[address] (BEAKER) (test code = [place] 1538) [address] URINALYSIS W/ [id number] 18:19:00 Test Item Value Reference Range Interpretation [...] 520) SOURCE(BEAKER) (test code Urine, Straight = 0810) Catheter POCT-GLUCOSE [id number] 16:40:00 Test Item Value Reference Range Interpretation Comments POC-GLUCOSE METER 120 mg/dL 70-110 H TESTED AT [facility] 6720 (BEAKER) (test code = SYDNEE Rendon [facility] 1538) [address] HEPATITIS PANEL, [id number] 10:25:00 Test Item Value Reference Range Interpretation Comments HEPATITIS A IGM ANTIBODY (BEAKER) Nonreactive Nonreactive (test code = 498) HEPATITIS B CORE IGM ANTIBODY Nonreactive Nonreactive (BEAKER) (test code = 645) HEPATITIS C ANTIBODY (BEAKER) Nonreactive Nonreactive (test code = 367) HEPATITIS B SURFACE ANTIGEN (2) Nonreactive Nonreactive (BEAKER) (test code = 2585) HIV-1 ANTIGEN WITH HIV-1/2 [id number] 10:25:00 Test Item Value Reference Range Interpretation Comments HIV-1 ANTIGEN WITH HIV 1\\T\\2 Nonreactive Nonreactive ANTIBODY (2) (BEAKER) (test code = 2586) BASIC METABOLIC [id number] 10:05:00 Test Item Value Reference Range Interpretation [...] PATIEN TS. CBC W/PLT COUNT & AUTO [id number] 09:58:00 Test Item Value Reference Range Interpretation [...] L 0.00-0.20 (test code = 417) 0.00POCT-GLUCOSE [id number] 08:28:00 Test Item Value Reference Range Interpretation Comments POC-GLUCOSE METER 134 mg/dL 70-110 H TESTED AT [place] [address] (BEAKER) (test code = [facility] Justice [facility] 1538) [address] POCT-GLUCOSE [id number] 21:33:00 Test Item Value Reference Range Interpretation Comments POC-GLUCOSE METER 142 mg/dL 70-110 H TESTED AT [place] [address] (BEAKER) (test code = [facility] 1538) [address] URINALYSIS W/ [id number] 13:59:00 Test Item Value Reference Range Interpretation [...] SOURCE(BEAKER) (test code = 2795) COMPREHENSIVE METABOLIC [id number] 12:59:00 Test Item Value Reference Range Interpretation [...] S NOT APPLICABLE FOR DIALYSIS PATIEN TS. [id number] 12:31:00 Test Item Value Reference Range Interpretation [...] L 0.00-0.20 (test code = 417) 0.00BLOOD [id number] 06:00:00 Test Item Value Reference Range Interpretation Comments CULTURE (BEAKER) (test No growth in 5 days code = 1095) URINE [id number] 13:38:00 Test Item Value Reference Range Interpretation Comments CULTURE (BEAKER) (test A 50-59 ,000 col/mL Raheel code = 1095) albicans <10,000 col/mL Gram Negative byron<10,000 col/mL skin floraURINALYSIS W/ [id number] 03:34:00 Test Item Value Reference Range Interpretation [...] = 516) SOURCE(BEAKER) (test code = 2795) [id number] 02:16:00 Test Item Value Reference Range Interpretation Comments LIPASE (BEAKER) (test code = 749) 8 U/L 8-78 [id number] 02:16:00 Test Item Value Reference Range Interpretation Comments AMYLASE (BEAKER) (test code = 349) 21 U/L 25-125 L BASIC METABOLIC [id number] 02:16:00 Test Item Value Reference Range Interpretation [...] APPLICABLE FOR DIALYSIS PATIEN TS. HEPATIC FUNCTION [id number] 02:16:00 Test Item Value Reference Range Interpretation [...] 6-55 347) CBC W/PLT COUNT & AUTO [id number] 02:05:00 Test Item Value Reference Range Interpretation [...] L 0.00-0.20 (test code = 417) 0.00TISSUE [id number] 16:41:00Surgical Pathology Report Case: [id number] Authorizing Provider: Jag Escalera MD Collected: 01/23/2017 5555 Ordering Location: [facility] Received: 01/24/2017 0855 SERVICES Pathologist: Karma [...] cm. Thetissue is entirely submitted in A1. CG/ewPerformed.64811WQBJYSKSV [id number] 08:38:00 Test Item Value Reference Range Interpretation Comments CULTURE (BEAKER) (test No anaerobes isolated code = 1095) SURGICALLY OBTAINED CULTURE + GRAM [id number] 15:59:00 Test Item Value Reference Range Interpretation Comments CULTURE (BEAKER) RAHEEL A 3+ Raheel (test code = 1095) ALBICANS albicans 5-Flurocytosine [...] RESULT 1+ yeast (BEAKER) (test code = 412820) POCT-GLUCOSE [id number] 13:12:00 Test Item Value Reference Range Interpretation Comments POC-GLUCOSE METER 116 mg/dL 70-110 H TESTED AT [place] [address] (BEAKER) (test code = [facility] 1538) [address] POCT-GLUCOSE [id number] 12:02:00 Test Item Value Reference Range Interpretation Comments POC-GLUCOSE METER 142 mg/dL 70-110 H TESTED AT [place] [address] ([facility] (test code = [facility] 1538) [address] POCT-GLUCOSE [id number] 08:20:00 Test Item Value Reference Range Interpretation Comments POC-GLUCOSE METER 169 mg/dL 70-110 H TESTED AT [place] [address] ([facility] (test code = [facility] 1538) [address] [id number] 04:58:00 Test Item Value Reference Range Interpretation Comments PHOSPHORUS (BEAKER) (test code = 2.0 mg/dL 2.3-4.7 L 604) [id number] 04:58:00 Test Item Value Reference Range Interpretation Comments MAGNESIUM (BEAKER) (test code = 2.0 mg/dL 1.6-2.6 627) BASIC METABOLIC [id number] 04:58:00 Test Item Value Reference Range Interpretation [...] PATIEN TS. CBC W/PLT COUNT & AUTO [id number] 04:14:00 Test Item Value Reference Range Interpretation [...] L 0.00-0.20 (test code = 417) 0.00POCT-GLUCOSE [id number] 21:38:00 Test Item Value Reference Range Interpretation Comments POC-GLUCOSE METER 137 mg/dL 70-110 H TESTED AT [facility] 6720 (BEAKER) (test code = [facility] [place] 1538) [address] POCT-GLUCOSE [id number] 11:40:00 Test Item Value Reference Range Interpretation Comments POC-GLUCOSE METER 187 mg/dL 70-110 H TESTED AT [facility] 6720 (BEAKER) (test code = [facility] [place] 1538) [address] POCT-GLUCOSE [id number] 06:44:00 Test Item Value Reference Range Interpretation Comments POC-GLUCOSE METER 160 mg/dL 70-110 H TESTED AT [facility] 6720 (BEAKER) (test code = [facility] [place] 1538) [address] BLOOD GAS, [id number] 04:11:00 Test Item Value Reference Range Interpretation [...] (BEAKER) (test code = 1819) 40.0 % [id number] 04:09:00 Test Item Value Reference Range Interpretation Comments PHOSPHORUS (BEAKER) (test code = 2.9 mg/dL 2.3-4.7 604) [id number] 04:09:00 Test Item Value Reference Range Interpretation Comments MAGNESIUM (BEAKER) (test code = 2.1 mg/dL 1.6-2.6 627) BASIC METABOLIC [id number] 04:09:00 Test Item Value Reference Range Interpretation [...] PATIEN TS. CBC W/PLT COUNT & AUTO [id number] 03:57:00 Test Item Value Reference Range Interpretation [...] L 0.00-0.20 (test code = 417) 0.00POCT-GLUCOSE [id number] 00:34:00 Test Item Value Reference Range Interpretation Comments POC-GLUCOSE METER 243 mg/dL 70-110 H TESTED AT [facility] 6720 (BEAKER) (test code = [place] 1538) [address] [id number] 21:39:00 Test Item Value Reference Range Interpretation Comments PHOSPHORUS (BEAKER) (test code = 3.7 mg/dL 2.3-4.7 604) [id number] 21:39:00 Test Item Value Reference Range Interpretation Comments MAGNESIUM (BEAKER) (test code = 1.6 mg/dL 1.6-2.6 627) COMPREHENSIVE METABOLIC [id number] 21:39:00 Test Item Value Reference Range Interpretation [...] PATIEN TS. CBC W/PLT COUNT & AUTO [id number] 21:24:00 Test Item Value Reference Range Interpretation [...] 0.00-0.20 (test code = 417) 0.00BLOOD GAS, [id number] 21:20:00 Test Item Value Reference Range Interpretation [...] code = 1819) 100.0 % BLOOD GAS, [id number] 18:58:00 Test Item Value Reference Range Interpretation [...] 37.0 C (test code = 1818) GLUCOSE-STAT [id number] 18:58:00 Test Item Value Reference Range Interpretation Comments GLUCOSE RANDOM (BEAKER) (test code 179 mg/dL 70-110 H = 652) CALCIUM, [id number] 18:58:00 Test Item Value Reference Range Interpretation Comments CALCIUM IONIZED (BEAKER) (test 0.96 mmol/L 1.12-1.27 L code = 698) PH, BLOOD (BEAKER) (test code = 7.37 1810) SODIUM NA-STAT [id number] 18:57:00 Test Item Value Reference Range Interpretation Comments SODIUM (BEAKER) (test code = 381) 138 meq/L 135-148 POTASSIUM-STAT [id number] 18:57:00 Test Item Value Reference Range Interpretation Comments POTASSIUM (BEAKER) (test code = 3.8 meq/L 3.6-5.5 379) HGB/HCT (H&H) - STAT [id number] 18:57:00 Test Item Value Reference Range Interpretation Comments HEMOGLOBIN (BEAKER) (test code = 12.8 g/dL 12.0-15.0 410) HEMATOCRIT (BEAKER) (test code = 38.0 % 36.0-45.0 411) SODIUM NA-STAT [id number] 17:20:00 Test Item Value Reference Range Interpretation Comments SODIUM (BEAKER) (test code = 381) 138 meq/L 135-148 POTASSIUM-STAT [id number] 17:20:00 Test Item Value Reference Range Interpretation Comments POTASSIUM (BEAKER) (test code = 3.8 meq/L 3.6-5.5 379) HGB/HCT (H&H) - STAT [id number] 17:20:00 Test Item Value Reference Range Interpretation Comments HEMOGLOBIN (BEAKER) (test code = 12.8 g/dL 12.0-15.0 410) HEMATOCRIT (BEAKER) (test code = 38.0 % 36.0-45.0 411) BLOOD GAS, [id number] 17:20:00 Test Item Value Reference Range Interpretation [...] (test code = 1819) 100.0 % GLUCOSE-STAT [id number] 17:20:00 Test Item Value Reference Range Interpretation Comments GLUCOSE RANDOM (BEAKER) (test code 167 mg/dL 70-110 H = 652) CALCIUM, [id number] 17:20:00 Test Item Value Reference Range Interpretation Comments CALCIUM IONIZED (BEAKER) (test 1.09 mmol/L 1.12-1.27 L code = 698) PH, BLOOD (BEAKER) (test code = 7.38 1810) BLOOD GAS, [id number] 16:34:00 Test Item Value Reference Range Interpretation [...] (test code = 1819) 100.0 % GLUCOSE-STAT [id number] 16:34:00 Test Item Value Reference Range Interpretation Comments GLUCOSE RANDOM (BEAKER) (test code 151 mg/dL 70-110 H = 652) CALCIUM, [id number] 16:34:00 Test Item Value Reference Range Interpretation Comments CALCIUM IONIZED (BEAKER) (test 1.11 mmol/L 1.12-1.27 L code = 698) PH, BLOOD (BEAKER) (test code = 7.31 1810) SODIUM NA-STAT [id number] 16:33:00 Test Item Value Reference Range Interpretation Comments SODIUM (BEAKER) (test code = 381) 139 meq/L 135-148 POTASSIUM-STAT [id number] 16:33:00 Test Item Value Reference Range Interpretation Comments POTASSIUM (BEAKER) (test code = 3.6 meq/L 3.6-5.5 379) HGB/HCT (H&H) - STAT [id number] 16:33:00 Test Item Value Reference Range Interpretation Comments HEMOGLOBIN (BEAKER) (test code = 13.0 g/dL 12.0-15.0 410) HEMATOCRIT (BEAKER) (test code = 38.0 % 36.0-45.0 411) BLOOD GAS, [id number] 15:56:00 Test Item Value Reference Range Interpretation [...] (test code = 1819) 100.0 % GLUCOSE-STAT [id number] 15:56:00 Test Item Value Reference Range Interpretation Comments GLUCOSE RANDOM (BEAKER) (test code 142 mg/dL 70-110 H = 652) CALCIUM, [id number] 15:56:00 Test Item Value Reference Range Interpretation Comments CALCIUM IONIZED (BEAKER) (test 1.03 mmol/L 1.12-1.27 L code = 698) PH, BLOOD (BEAKER) (test code = 7.32 1810) SODIUM NA-STAT [id number] 15:55:00 Test Item Value Reference Range Interpretation Comments SODIUM (BEAKER) (test code = 381) 138 meq/L 135-148 POTASSIUM-STAT [id number] 15:55:00 Test Item Value Reference Range Interpretation Comments POTASSIUM (BEAKER) (test code = 3.8 meq/L 3.6-5.5 379) HGB/HCT (H&H) - STAT [id number] 15:55:00 Test Item Value Reference Range Interpretation Comments HEMOGLOBIN (BEAKER) (test code = 13.5 g/dL 12.0-15.0 410) HEMATOCRIT (BEAKER) (test code = 40.0 % 36.0-45.0 411) URINALYSIS W/ [id number] 13:28:00 Test Item Value Reference Range Interpretation [...] code Urine, Clean Catch = 2795) POCT-GLUCOSE [id number] 12:50:00 Test Item Value Reference Range Interpretation Comments POC-GLUCOSE METER 146 mg/dL 70-110 H TESTED AT [facility] 6720 (BEAKER) (test code = [place] 1538) [address] URINE [id number] 09:26:00 Test Item Value Reference Range Interpretation Comments CULTURE (BEAKER) (test A 50-59 ,000 col/mL Myroides code = 1095) speciesMost meseret sely resembles <10,000 col/mL Beta hemolytic strepURINALYSIS W/ [id number] 11:15:00 Test Item Value Reference Range Interpretation [...] = 1585) Occasional SOURCE(BEAKER) (test code = 7255) BASIC METABOLIC [id number] 11:08:00 Test Item Value Reference Range Interpretation [...] NOT APPLICABLE FOR DIALYSIS PATIEN TS. PROTHROMBIN [id number] 10:58:00 Test Item Value Reference Range Interpretation Comments PROTIME (BEAKER) (test code = 12.8 seconds 11.7-14.7 759) INR (BEAKER) (test code = 370) 1.0 <=5.9 RECOMMENDED COUMADIN/WARFARIN INR THERAPY RANGESSTANDARD DOSE: 2.0 - 3.0 Includes: PROPHYLAXIS forvenous thrombosis, systemic embolization; TREATMENT for venous thrombosis and/or pulmonary embolus.HIGH RISK: Target INR is 2.5-3.5 for patients with mechanical heart valves.[id number] 10:58:00 Test Item Value Reference Range Interpretation Comments PARTIAL THROMBOPLASTIN TIME 35.7 seconds 22.5-36.0 (BEAKER) (test code = 760) CBC W/PLT COUNT & AUTO [id number] 10:48:00 Test Item Value Reference Range Interpretation [...]
[2021-09-25] MEDS ORDERED: DIAZEPAM 5 MG TABLET ONE (15:37)
--- NOTE | 2021-09-25 16:49 | RAD REPORT ---
EXAM DESCRIPTION: US - Extremity Venous Uni Ltd - 09/25/2021 4:25 pm CLINICAL HISTORY: PAIN COMPARISON: EXT VENOUS UNI LTD dated 08/26/2009; Chest Abdomen Pelvis W Cont dated 03/04/2021; Lower E xtremity Artery Uni Ltd dated 09/25/2021 TECHNIQUE: Real-time sonographic evaluation of the lower extremity deep venous systems was performed using color Doppler, grayscale, and compression. FINDINGS: Normal compressibility, flow augmentation, phasic flow and spontaneous flow is identified in the righ t lower extremity deep venous systems. No intraluminal filling defects seen. IMPRESSION: No DVT in the right lower extremity.
--- NOTE | 2021-09-25 16:50 | RAD REPORT ---
EXAM DESCRIPTION: US - Lower Extremity Artery Uni Ltd - 09/25/2021 4:25 pm CLINICAL HISTORY: Leg pain COMPARISON: None FINDINGS: The common femoral, superficial femoral and popliteal arteries on the right side demonstra te triphasic waveforms The posterior tibial and dorsalis pedis arteries demonstrate triphasic waveforms on the right side. IMPRESSION: No flow limiting stenosis in the right lower extremity arterial system.
--- NOTE | 2021-09-25 17:06 | ER ---
Nurse's Notes [facility] Name: Ankita Todd Age: 61 yrs Sex: Female : 1960 Arrival Date: 09/25/2021 Time: 12:54 Bed 8 Private MD: out of town, doctor Diagnosis: Right lower extremity pain Presentation: 09/25 13:11 Chief complaint: Patient states: Pain behind R knee yesterday, R groin pain this ph morning and pain to front of knee, became concerned about a blood clot when foot began to feel cold. Coronavirus screen: Vaccine status: Patient reports being unvaccinated. At this time, the client does not indicate any symptoms associated with coronavirus-19. Ebola Screen: No symptoms or risks identified at this time. Initial Sepsis Screen: Does the patient meet any 2 criteria? No. Patient's initial sepsis screen is negative. Does the patient have a suspected source of infection? No. Patient's initial sepsis screen is negative. Risk Assessment: Do you want to hurt yourself or someone else? Patient reports no desire to harm self or others. 13:11 Method Of Arrival: Ambulatory ph 13:11 Acuity: BRYAN 3 ph Historical: - Allergies: 13:13 Benadryl; ph 13:13 tramadol; ph 13:13 oral antifungals; ph 13:13 Nitrofurantoin Macrocrystal; ph 13:13 Morphine (Doesn't Work); ph 13:13 Diflucan; ph - PMHx: 13:13 Anxiety; Colitis; Diabetes - NIDDM; High Cholesterol; Hypertension; kidney stent; Sleep ph Apnea; - Immunization history:: Client reports having NOT received the Covid vaccine. Screenin:09 Abuse screen: Denies threats or abuse. jh6 14:09 Nutritional screening: No deficits noted. Tuberculosis screening: No symptoms or risk jh6 factors identified. Fall Risk Secondary diagnosis (15 points) impaired mobility. Assessment: 13:28 General: Appears in no apparent distress. uncomfortable, Behavior is calm, cooperative. vg1 Pain: Complains of pain in right leg Pain currently is 4 out of 10 on a pain scale. Quality of pain is described as tender. Neuro: Level of Consciousness is awake, alert, obeys commands, Oriented to person, place, time, situation. Cardiovascular: Pulses are palpable in right dorsalis pedis artery and left dorsalis pedis artery. Respiratory: Airway is patent Respiratory effort is even, unlabored. GI: No signs and/or symptoms were reported involving the gastrointestinal system. : No signs and/or symptoms were reported regarding the genitourinary system. EENT: No signs and/or symptoms were reported regarding the EENT system. Derm: Skin is intact, Skin temperature is cold Right foot. Musculoskeletal: Tenderness present in posterior aspect of right knee and right calf. 14:40 Reassessment: Patient appears in no apparent distress at this time. No changes from vg1 previously documented assessment. Patient and/or family updated on plan of care and expected duration. Pain level reassessed. Patient is alert, oriented x 3, equal unlabored respirations, skin warm/dry/pink. 15:29 Reassessment: Patient appears in no apparent distress at this time. No changes from vg1 previously documented assessment. Patient and/or family updated on plan of care and expected duration. Pain level reassessed. Patient is alert, oriented x 3, equal unlabored respirations, skin warm/dry/pink. 15:36 Reassessment: Pt stated 'I need pain medication before I get the ultrasound'; Notified vg1 provider; received VO from Dr Noel to administer Valium 5 mg PO x1. 16:48 Reassessment: Patient appears in no apparent distress at this time. Patient and/or vg1 family updated on plan of care and expected duration. Pain level reassessed. Patient is alert, oriented x 3, equal unlabored respirations, skin warm/dry/pink. Patient states feeling better. 17:51 Reassessment: adry wrap applied to rt lower ext. pt able to stand and walk to wheelchair jh6 without assistance. verbal understanding of d/c instructions and med. Vital Signs: 13:11 BP 116 / 61; Pulse 80; Resp 18; Temp 97.4; Pulse Ox 98% on R/A; Weight 125.19 kg; ph Height 5 ft. 7 in. (170.18 cm); 13:20 BP 131 / 73; Pulse 80; Resp 18; Pulse Ox 96% ; vg1 14:15 BP 106 / 68; Pulse 71; Resp 17; Pulse Ox 95% on R/A; vg1 15:00 BP 102 / 83; Pulse 64; Resp 18; Pulse Ox 95% on R/A; vg1 15:45 BP 105 / 91; Pulse 62; Resp 17; Pulse Ox 98% on R/A; vg1 16:45 BP 95 / 56; Pulse 67; Resp 19; Pulse Ox 95% on R/A; vg1 17:50 BP 102 / 76; Pulse 65; Resp 17; Temp 97.7; Pulse Ox 100% ; jh6 13:11 Body Mass Index 43.23 (125.19 kg, 170.18 cm) ph ED Course: 12:54 Patient arrived in ED. mr 12:54 out of town, doctor is Private Physician. mr 13:07 Hill Noel MD is Attending Physician. kdr 13:13 Triage completed. ph 13:13 Arm band placed on. ph 13:16 Agueda Mari, RN is Primary Nurse. vg1 14:10 Bed in low position. Call light in reach. Side rails up X 1. jh6 16:25 US Extremity Venous Unilateral Ltd In Process Unspecified. EDMS 16:25 US LE Artery Uni Ltd In Process Unspecified. EDMS 17:02 Hill Noel MD is Referral Physician. kdr 17:02 Referral Physician role handed off by Hill Noel MD kdr 17:50 Dressings: Adaptic X 4; right leg. jh6 Administered Medications: 15:39 Drug: Valium (diazepam) 5 mg Route: PO; vg1 16:51 Follow up: Response: No adverse reaction; Marked relief of symptoms vg1 17:50 Not Given (Patient Refused): Acetaminophen 1000 mg PO once 6 Outcome: 17:06 Discharge ordered by . kdr 17:53 Discharged to home via wheelchair. jh6 17:53 Condition: improved 17:53 Discharge instructions given to patient, Instructed on discharge instructions, follow up and referral plans. Demonstrated understanding of instructions, follow-up care, medications, Prescriptions given X 1. 17:54 Patient left the ED. 6 Signatures: Dispatcher [employer] EDVT Hill Noel MD MD [facility] Josselyn Henriquez, RN RN ph Agueda Mari, JULIO C RN 1 Mairlou Rodriguez RN RN 6 Corrections: (The following items were deleted from the chart) 13:14 13:13 Allergies: Demerol; ph ph 15:38 15:36 Reassessment: received VO from Dr Noel to administer Valium 5 mg PO x1 vg1 vg1
--- NOTE | 2021-09-25 17:06 | EDPHYS ---
Physician Documentation [facility] Name: Ankita Todd Age: 61 yrs Sex: Female : 1960 Arrival Date: 09/25/2021 Time: 12:54 Bed 8 Private MD: out of town, doctor ED Physician Hill Noel HPI: 09/25 15:53 This 61 yrs old Female presents to ER via Ambulatory with complaints of Leg Pain. kdr 15:53 The patient presents with pain, that is acute. The complaints affect the lateral aspect kdr of right thigh, lateral aspect of right knee, lateral aspect of right calf, right ankle, posterior aspect of right knee, right calf, right Achilles, medial aspect of right thigh, medial aspect of right knee, medial aspect of right calf, medial aspect of right foot, right quadriceps and right capone. Context: The problem was sustained at home, resulted from an unknown cause, the patient can partially bear weight, the patient is able to ambulate, with mild difficulty, Problem is a result from a previous injury: No. Onset: The symptoms/episode began/occurred 2 day(s) ago. Modifying factors: The symptoms are alleviated by remaining still, the symptoms are aggravated by movement, weight bearing, bending knee. Associated signs and symptoms: The patient has no apparent associated signs or symptoms. Severity of symptoms: At their worst the symptoms were mild, moderate, just prior to arrival, in the emergency department the symptoms are unchanged. The patient has not experienced similar symptoms in the past. The patient has not recently seen a physician. Patient has been having pain in her right knee since yesterday. This morning she started to have pain in her right groin that is transient and has resolved at this point. She is concerned about possible blood clot in her leg since it feels cold in her foot. She denies shortness of breath or any other potential DVT/PE related signs and symptoms. Historical: - Allergies: 13:13 Benadryl; ph 13:13 tramadol; ph 13:13 oral antifungals; ph 13:13 Nitrofurantoin Macrocrystal; ph 13:13 Morphine (Doesn't Work); ph 13:13 Diflucan; ph - PMHx: 13:13 Anxiety; Colitis; Diabetes - NIDDM; High Cholesterol; Hypertension; kidney stent; Sleep ph Apnea; - Immunization history:: Client reports having NOT received the Covid vaccine. ROS: 15:53 Constitutional: Negative for fever, chills, and weight loss, Eyes: Negative for injury, kdr pain, redness, and discharge, Neck: Negative for injury, pain, and swelling, Cardiovascular: Negative for chest pain, palpitations, and edema, Respiratory: Negative for shortness of breath, cough, wheezing, and pleuritic chest pain, Abdomen/GI: Negative for abdominal pain, nausea, vomiting, diarrhea, and constipation, Back: Negative for injury and pain, : Negative for injury, bleeding, discharge, and swelling, Skin: Negative for injury, rash, and discoloration, Neuro: Negative for headache, weakness, numbness, tingling, and seizure activity. Psych: Negative for depression, anxiety, suicide ideation, homicidal ideation, and hallucinations, Allergy/Immunology: Negative for hives, rash, and allergies, Endocrine: Negative for neck swelling, polydipsia, polyuria, polyphagia, and marked weight changes, Hematologic/Lymphatic: Negative for swollen nodes, abnormal bleeding, and unusual bruising. 15:53 MS/extremity: Positive for pain, tenderness, Her foot on the right feels subjectively cold. Exam: 15:53 Constitutional: This is a well developed, well nourished patient who is awake, alert, kdr and in no acute distress. Head/Face: Normocephalic, atraumatic. Eyes: Pupils equal round and reactive to light, extra-ocular motions intact. Lids and lashes normal. Conjunctiva and sclera are non-icteric and not injected. Cornea within normal limits. Periorbital areas with no swelling, redness, or edema. 15:53 Musculoskeletal/extremity: Extremities: grossly normal except: noted in the posterior aspect of right knee: pain, tenderness. Vital Signs: 13:11 BP 116 / 61; Pulse 80; Resp 18; Temp 97.4; Pulse Ox 98% on R/A; Weight 125.19 kg; ph Height 5 ft. 7 in. (170.18 cm); 13:20 BP 131 / 73; Pulse 80; Resp 18; Pulse Ox 96% ; vg1 14:15 BP 106 / 68; Pulse 71; Resp 17; Pulse Ox 95% on R/A; vg1 15:00 BP 102 / 83; Pulse 64; Resp 18; Pulse Ox 95% on R/A; vg1 15:45 BP 105 / 91; Pulse 62; Resp 17; Pulse Ox 98% on R/A; vg1 16:45 BP 95 / 56; Pulse 67; Resp 19; Pulse Ox 95% on R/A; vg1 17:50 BP 102 / 76; Pulse 65; Resp 17; Temp 97.7; Pulse Ox 100% ; jh6 13:11 Body Mass Index 43.23 (125.19 kg, 170.18 cm) ph MDM: 15:53 Data reviewed: vital signs, nurses notes, lab test result(s), radiologic studies. kdr Counseling: I had a detailed discussion with the patient and/or guardian regarding: the historical points, exam findings, and any diagnostic results supporting the discharge/admit diagnosis, lab results, radiology results, the need for outpatient follow up. 17:06 Patient medically screened. kdr 09/25 14:05 Order name: Extremity Venous Unilateral Ltd; Complete Time: 17:01 kdr 09/25 14:05 Order name: LE Artery Uni Ltd; Complete Time: 17:01 kdr 09/25 17:25 Order name: Pal wrap-joint: Right knee kdr Administered Medications: 15:39 Drug: Valium (diazepam) 5 mg Route: PO; vg1 16:51 Follow up: Response: No adverse reaction; Marked relief of symptoms vg1 17:50 Not Given (Patient Refused): Acetaminophen 1000 mg PO once jh6 Disposition Summary: 09/25/21 17:06 Discharge Ordered Location: Home kdr Problem: new kdr Symptoms: have improved kdr Condition: Stable kdr Diagnosis - Right lower extremity pain kdr Followup: kdr - With: Hill Noel MD - When: 2 - 3 days - Reason: If symptoms return, Further diagnostic work-up, Recheck today's complaints, Continuance of care, Re-evaluation by your physician Followup: kdr - With: Private Physician - When: 2 - 3 days - Reason: If symptoms return, Further diagnostic work-up, Recheck today's complaints, Continuance of care, Re-evaluation by your physician Discharge Instructions: - Discharge Summary Sheet kdr - Pain Without a Known Cause kdr - Joint Pain, [id number] kdr Forms: - Medication Reconciliation Form kdr - Thank You Letter kdr Prescriptions: - Tylenol-Codeine #3 300 mg-30 mg Oral - take 1 tablet by ORAL route every 4-6 hours As needed; 12 tablet; Refills: 0, kdr Product Selection Permitted Signatures: Dispatcher [employer] Hill Young MD MD kdr Hall, Patricia, RN RN ph Kamaljit, JULIO C Romeo RN vg1 Michael, Marilou BUNCH jh6 Corrections: (The following items were deleted from the chart) 13:14 13:13 Allergies: Demerol; ph
[2021-09-25 18:05] VITALS: BP 102/76; TEMP 97.7; O2SAT 100
== END 2021-09-25 17:54 | disposition home or self-care (01) ==
LOC: ER 12:51
DX: M79.604 Pain in right leg (principal)
CPT/HCPCS: 93926; 93971; 99283

== ENCOUNTER 2022-07-26 16:36 | Emergency (ER) | payer BC ==
--- OUTSIDE RECORDS SUMMARY | 2022-07-26 16:47 | XMS REPORT | Continuity of Care Document ---
:1960 Author Organization [facility] t Address [address] [place] [address] Care Team Providers Name Role Phone Obed Castillo Primary Care Physician Lab, Ang - Db Attending Clinician Unavailable Shayy Fleming Attending Clinician GIRISH HENDRIX Attending Clinician Unavailable GIRISH HENDRIX Attending Clinician Unavailable Girish Hendrix MD Attending Clinician Doctor Unassigned, [place] Attending Clinician Unavailable GUNJAN Attending Clinician Unavailable Gurvinder Thomas Attending Clinician Unavailable Jaylen_Byarnulfo Attending Clinician Unavailable АНДРЕЙ ROSEN Attending Clinician Unavailable Андрей Rosen MD Attending Clinician Pob, [facility] Lab Main Attending Clinician Unavailable HILL JEAN Attending Clinician Unavailable Chadd Vicente MD Attending Clinician Hill Jean MD Attending Clinician DARIO SINGH Attending Clinician Unavailable JIM VILLATORO Attending Clinician Unavailable MANUEL ESCALERA Attending Clinician Unavailable JESSICA IVORY Attending Clinician Unavailable SARAH CLAIRE Attending Clinician Unavailable AARTI DACOSTA Attending Clinician Unavailable GIRISH HENDRIX Admitting Clinician Unavailable DESAI_RAKESH Admitting Clinician Unavailable A_Byrd Admitting Clinician Unavailable MANUEL ESCALERA Admitting Clinician Unavailable SARA MEJÍA Admitting Clinician Unavailable JESSICA IVORY Admitting Clinician Unavailable SARAH CLAIRE Admitting Clinician Unavailable Payers Payer Name Policy Type Policy Number Effective Date Expiration Date S our[place] [id number] 2017 00:00:00 [facility] [id number] HEALTH [facility] [id number] HEALTH [place] [id number] 2016 ADVANTAGE (O) 00:00:00 DARS [id number] Problems Condition Condition Condition Status Onset Resolution [...] Muscle 7-18 da spasm Spasm 00:00: Medical Group Excessive Excessive Problem Active [place] sweating Sweating 7-18 da 00:00: Medical 00 Group Skin Skin Problem Active [place] lesion Lesion 7-09 da 00:00: Medical 00 Group Superficia Superficia Problem Active [facility] l foreign l Foreign 5-06 da body in Body in 00:00: Medical wrist Wrist 00 Group Bronchitis Bronchitis Problem Active M [facility] 3-11 da 00:00: Medical 00 Group Type II Type II Problem Active 2017-08 [place] diabetes Diabetes 2-24 da mellitus Mellitus 00:00: Medica l uncontroll Uncontroll 00 Gr oup ed ed Peripheral Peripheral Problem Active 2017-08 [place] nerve Nerve 2-07 da disease Disease [...] osis with osis with 4-17 [facility] renal and renal and 00:[facility]: [facility] remedios ureteral ureteral 00 Center calculous calculous obstructio obstructio n n Severe Severe Disease Active [facility] sepsis sepsis [facility]17 [facility] Type 2 Type 2 Problem Active [place] diabetes Diabetes 329 da mellitus Mellitus 00:00: Medica l without without 00 Group complicati Complicati on on Edema Edema Problem Active [place] 3 da 00:00: Medical 00 Group Diverticul Diverticul Problem Active M [place] itis itis 2-27 da 00:00: Medical 00 Group Lethargy Lethargy Problem Active [place] 1 da 00:00: Medical 00 Group Complicate Complicate Disease Active 2016-[address] d UTI d UTI 1-04 [facility] (urinary (urinary 00:00: Medica l tract tract 00 Center infection) infection) Ureteropel Ureteropel Disease Active 2016-[address] agustina agustina 0- [facility] junction junction 00:00: Medica l (UPJ) (UPJ) 00 Center obstructio obstructio n, right n, right Urinary Urinary Problem [facility] Tract 0-02 da infectious Infectious 00:00: Me dical disease Disease 00 Group Candidiasi Candidiasi Problem Active [facility] s of skin s of Skin 8 da 00:00: Medical 00 Group 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 00:00: Medical 00 Group Colonic Colonic Disease Active [facility] fistula fistula 03-04 [facility] Center Hypertensi Hypertensi Disease Active [facility] on, on, 03-03 [facility] essential essential 00:00: Medi remedios 00 Center Controlled Controlled Disease Active [facility] type 2 type 2 03-03 [facility] diabetes diabetes 00:00: Medica l mellitus mellitus 00 Center without without complicati complicati on, on, without without long-term long-term current current use of use of insulin insulin Slow Slow Disease Active [facility]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 03-03 [facility] constipati constipati 00:00: Me dical on on 00 Center Occluded Occluded Disease Active [facility] PICC line, PICC line, 03-03 [facility] initial initial 00:00: Medical encounter encounter 00 Cent er Pyelonephr Pyelonephr Disease Active [facility] itis itis 03-02 [facility] 00:[facility]: [facility] 00 Center Chronic Chronic Problem Active [place] kidney Kidney 6-29 da disease Disease 00:00: Medical 00 Group Acute Acute Disease Active [facility] postoperat postoperat 6-13 [facility] jose eduardo jose eduardo 00:00: Medical respirator respirator 00 Ce nter y y insufficie insufficie ncy ncy UPJ UPJ Disease Active [facility] (ureterope (ureterope 6-12 [facility] lvic lvic 00:00: Medical junction) junction) 00 [...] Disease Active [facility] 6[facility]16 [facility] 00:00: Medical 00 [place] Hydronephr Hydronephr Disease Active [facility] osis, left osis, left 5-17 [facility] 00:00: Medical [place] UPJ UPJ Disease Active [facility] obstructio obstructio 5-17 [facility] n, n, 00:00: Medical acquired acquired 00 Center Pelvic Pelvic Disease Active [facility] mass mass 5-17 [facility] 00:[facility]: [facility] Center Morbid Morbid Disease Active [facility] obesity obesity 5-17 [facility] 00:[facility]: [facility] Fatty Fatty Disease Active [facility] liver liver 5-17 [facility] 00:[facility]: [facility] Tobacco Tobacco Disease Active [facility] use use 5-17 [facility] 00:00: Medical 00 Center No known No known Disease Unive rs active active ity of problems problems [facility] Allergies, Adverse Reactions, Alerts Allergy Allergy Status Severity Reaction(s) Onset Inactive Treating Comm ents Source Name Type Date Date Clinician No Known DA Active U [facility] Drug 4-16 Allergie 00:00: s 00 Miconazo Propensi Active Other - See Patient Univers le ty to comments 2-05 states ity of Nitrate adverse 00:00: she [place] reaction 00 cannot Medical s have any Branch Anti fungal medicatio n unless given via IV MICONAZO DRUG Active High Other-Cmnt Univ ers LE INGREDI 2-05 ity of NITRATE 00:00: Medical Branch DIPHENHY DRUG Active High Anaphylaxis Uni vers DRAMINE INGREDI 2-05 ity of HCL 00:00: Medical Branch MEPERIDI DRUG Active High Other-Cmnt Univ ers NE HCL INGREDI 2-05 ity of 00:00: Medical Branch MORPHINE DRUG Active High Other-Cmnt Univ ers INGREDI 2-05 ity of 00:00: Medical Branch Diphenhy Propensi Active Anaphylaxis U nivers dramine ty to 2-05 ity of Hcl adverse 00:00: [place] reaction 00 Medical s Branch Meperidi Propensi Active Other - See Patient Univers ne Hcl ty to comments 2-05 states ity of adverse 00:00: she [place] reaction becomes Medical s very Branch aggressiv e Morphine Propensi Active Other - See Patient Univers ty to comments 2-05 states ity of adverse 00:00: she [place] reaction becomes Medical s very Branch aggressiv e Fluconaz Propensi Active Itching, Not as [facility] ole ty to Rash 03-04 bad with [facility] adverse 00:00: intraveno Medica l reaction 00 us but Center s worse with oral per her pt EDWARD Morin Miconazo Propensi Active Itching [facility] le ty to 7-10 [facility] Nitrate adverse 00:00: Medical reaction 00 Center s Diphenhy Propensi Active Other (See Patient [facility] dramine ty to Comments), 7-10 states [facility] Hcl adverse Anaphylaxis 00:00: her Medi remedios reaction 00 throat Center s "closes up"Halluc inations. Meperidi Propensi Active Other (See Numbness [facility] ne ty to Comments) 7-10 per [facility] adverse 00:00: patient Medical reaction 00 Pt Center s becomes aggressiv e Tramadol Propensi Active Other (See Paranoia; [facility] ty to Comments) 01-16 nightkalani Laneke s adverse 00:00: s Medical reaction 00 Center s Morphine Drug Active Aggressiv [facility] t Intolera 12-28 enessTrinidad Ritter nce 00:00: re Medical 00 vomiting Center Benadryl Allergy Active [place] [facility] Demerol Allergy Active [place] [facility] Medical e Group Diflucan Allergy Active Hives [place] [facility] Medical e Group Morphine Allergy Active [place] [facility] Medical e Group Family History Family Member Diagnosis Comments Start Date Stop Date Source Natural brother Heart disease [facility] Maternal grandfather Cancer [facility] Maternal uncle Heart disease [facility] Natural mother Heart disease [facility] Social History Social Habit Start Date Stop Date Quantity Comments Source History of tobacco Smokes tobacco Un iversity of use daily [facility] Exposure to 2022-06-14 2022-06-24 Not sure University SARS-CoV-2 (event) 00:00:00 08:10:00 [facility] Alcohol intake 2017-12-01 2017-12-[address] [facility] es 00:00:00 00:00:00 non-drinker of [facility] nter alcohol (finding) Cigarette 2015-12-29 2015-12-[address] [facility] pack-years 00:00:00 00:00:00 [facility] Tobacco use and 2015-12-29 2015-12-[address] [facility] exposure 00:00:00 00:00:00 [facility] Cigarettes smoked 2015-12-29 2015-12-[address] [facility] current (pack per 00:00:00 00:00:00 [facility] Center day) - Reported Sex Assigned At [address] [facility] Ariana kes 00:00:00 00:00:00 [facility] Center Smoking Status Start Date Stop Date Source Heavy Tobacco Smoker [facility] Smokes tobacco daily 2018-09-19 00:00:00 Univers ity of [facility] Medications Ordered Filled Start Stop Current Ordering Indication Dosage Frequency Signature Comments Components Source Medication Medication Date Date Medication? Clinician (SIG) Name Name heather Yes TAKE ONE Un [place] -hydrochlor 9-10 (1) ity of othiazid 00:00[place] 37[place] mg 00 BY MOUTH Medic al tablet DAILY IN Branch THE MORNING. triamterene Yes TAKE ONE Un [place] -hydrochlor 9-10 (1) ity of othiazid 00:00: TABLET(S[place] 37.5-25 mg 00 BY MOUTH Medic al tablet DAILY IN Branch THE MORNING. triamterene Yes TAKE ONE Un [place] -hydrochlor 9-10 (1) ity of othiazid 00:00: TABLET(S) [place] 37.5-25 mg 00 BY MOUTH Medic al tablet DAILY IN Branch THE MORNING. triamterene Yes TAKE ONE Un [place] -hydrochlor 9-10 (1) ity of othiazid 00:00: TABLET(S) [place] 37.5-25 mg 00 BY MOUTH Medic al tablet DAILY IN Branch THE MORNING. triamterene Yes TAKE ONE Un [place] -hydrochlor 9-10 (1) ity of othiazid 00:00: TABLET(S) [place] 37.5-25 mg 00 BY MOUTH Medic al tablet DAILY IN Branch THE MORNING. triamterene Yes TAKE ONE Un [place] -hydrochlor 9-10 (1) ity of othiazid 00:00: TABLET(S) [place] 37.5-25 mg 00 BY MOUTH Medic al tablet DAILY IN Branch THE MORNING. triamterene Yes TAKE ONE Un [place] -hydrochlor 9-10 (1) ity of othiazid 00:00: TABLET(S) [place] 37.5-25 mg 00 BY MOUTH Medic al tablet DAILY IN [place] THE MORNING. Doxepin 3 Yes 1{tbl} Take 1 Univ ers mg Tab 8-29 tablet by ity of 00:00: mouth at [place] [address] bedtime. Medical Branch Doxepin 3 2021-0 Yes 1{tbl} Take 1 Univ ers mg Tab 8-29 tablet by ity of 00:00: mouth at [place] [address] bedtime. [facility] Branch Doxepin 3 2021-0 Yes 1{tbl} Take 1 Univ ers mg Tab 8-29 tablet by ity of 00:00: mouth at [place] [address] bedtime. Medical Branch Doxepin 3 2021-0 Yes 1{tbl} Take 1 Univ ers mg Tab 8-29 tablet by ity of 00:00: mouth at [place] [address] bedtime. Medical Branch Doxepin 3 2021-0 Yes 1{tbl} Take 1 Univ ers mg Tab 8-29 tablet by ity of 00:00: mouth at [place] [address] bedtime. Medical Branch Doxepin 3 2021-0 Yes 1{tbl} Take 1 Univ ers mg Tab 8-29 tablet by ity of 00:00: mouth at [place] [address] bedtime. Medical Branch Doxepin 3 2021-0 Yes 1{tbl} Take 1 Univ ers mg Tab 8-29 tablet by ity of 00:00: mouth at [place] [address] bedtime. Medical Branch nystatin 2021-0 Yes SWISH SIX Univ ers 100,000 7-27 (6) ML(S) ity of unit/mL 00:00: HOLD IN [place] suspension 00 MOUTH, Medical THEN Branch SWALLOW, FOUR TIMES DAILY FOR TEN DAYS. nystatin 2-0 Yes SWISH SIX Univ ers 100,000 7-27 (6) ML(S) ity of unit/mL 00:00: HOLD IN [place] suspension 00 MOUTH, Medical THEN Branch SWALLOW, FOUR TIMES DAILY FOR TEN DAYS. nystatin 2022-0 Yes SWISH SIX Univ ers 100,000 7-27 (6) ML(S) ity of unit/mL 00:00: HOLD IN [place] suspension 00 MOUTH, Medical THEN Branch SWALLOW, FOUR TIMES DAILY FOR TEN DAYS. nystatin 2022-0 Yes SWISH SIX Univ ers 100,000 7-27 (6) ML(S) ity of unit/mL 00:00: HOLD IN [place] suspension 00 MOUTH, Medical THEN Branch SWALLOW, FOUR TIMES DAILY FOR TEN DAYS. nystatin 2022-0 Yes SWISH SIX Univ ers 100,000 7-27 (6) ML(S) ity of unit/mL 00:00: HOLD IN [place] suspension 00 MOUTH, Medical THEN Branch SWALLOW, FOUR TIMES DAILY FOR TEN DAYS. nystatin 2022-0 Yes SWISH SIX Univ ers 100,000 7-27 (6) ML(S) ity of unit/mL 00:00: HOLD IN [place] suspension 00 MOUTH, Medical THEN Branch SWALLOW, FOUR TIMES DAILY FOR TEN DAYS. nystatin 2022-0 Yes SWISH SIX Univ ers 100,000 7-27 (6) ML(S) ity of unit/mL 00:00: HOLD IN [place] suspension 00 MOUTH, Medical THEN Branch SWALLOW, FOUR TIMES DAILY FOR TEN DAYS. mupirocin 2 Yes APPLY TO Un [place] % ointment 7-15 NARES ity of 00:00: TWICE A [place] 00 DAY. Medical Branch mupirocin 2 Yes APPLY TO Un kar[place] % ointment 7-15 NARES ity of 00:00: TWICE A [place] 00 DAY. Medical Branch mupirocin 2 Yes APPLY TO Un karsten % ointment 7-15 NARES ity of 00:00: TWICE A [place] 00 DAY. Medical Branch mupirocin 2 Yes APPLY TO Un karsten % ointment 7-15 NARES ity of 00:00: TWICE A [place] 00 DAY. Medical Branch mupirocin 2 Yes APPLY TO Un karsten % ointment 7-15 NARES ity of 00:00: TWICE A [place] 00 DAY. Medical Branch mupirocin 2 Yes APPLY TO Un karsten % ointment 7-15 NARES ity of 00:00: TWICE A [place] 00 DAY. Medical Branch mupirocin 2 Yes APPLY TO Un karsten % ointment 7-15 NARES ity of 00:00: TWICE A [place] 00 DAY. Medical Branch gadoteridol 2019-08 2020- No .2mL/kg 0.2 mL/kg, Univers (PROHANCE-2 08-13 Intravenou i ty of 0 mL) 17:00: 17:32 s, ONCE, 1 [place] injection 00 :00 dose, [facility] Medic al 0.2 mL/kg 08/13/20 Branch at 1100, Routine METFORMIN Yes [id number] TAKE ONE Univers ER 750 mg 7- (1) ity of 24 hr 00:00: TABLET(S) [place] tablet 00 BY MOUTH Medical ONCE A DAY Branch WITH BREAKFAST. METFORMIN Yes [id number] TAKE ONE Univers ER 750 mg 7-02 (1) ity of 24 hr 00:00: TABLET(S) [place] tablet 00 BY MOUTH Medical ONCE A DAY Branch WITH BREAKFAST. METFORMIN 2020-0 Yes [id number] TAKE ONE Univers ER 750 mg 7-02 (1) ity of 24 hr 00:00: TABLET(S) [place] tablet 00 BY MOUTH Medical ONCE A DAY Branch WITH BREAKFAST. METFORMIN 2020-0 Yes [id number] TAKE ONE Univers ER 750 mg 7-02 (1) ity of 24 hr 00:00: TABLET(S) [place] tablet 00 BY MOUTH Medical ONCE A DAY Branch WITH BREAKFAST. METFORMIN 2020-0 Yes [id number] TAKE ONE Univers ER 750 mg 7-02 (1) ity of 24 hr 00:00: TABLET(S) [place] tablet 00 BY MOUTH Medical ONCE A DAY Branch WITH BREAKFAST. METFORMIN 2020-0 Yes [id number] TAKE ONE Univers ER 750 mg 7-02 (1) ity of 24 hr 00:00: TABLET(S) [place] tablet 00 BY MOUTH Medical ONCE A DAY Branch WITH BREAKFAST. METFORMIN 2020-0 Yes [id number] TAKE ONE Univers ER 750 mg 7-02 (1) ity of 24 hr 00:00: TABLET(S) [place] tablet 00 BY MOUTH Medical ONCE A DAY Branch WITH BREAKFAST. METFORMIN 2020-0 Yes [id number] TAKE ONE Univers ER 750 mg 7-02 (1) ity of 24 hr 00:00: TABLET(S) [place] tablet 00 BY MOUTH Medical ONCE A DAY Branch WITH BREAKFAST. METFORMIN 2020-0 Yes [id number] TAKE ONE Univers ER 750 mg 7-02 (1) ity of 24 hr 00:00: TABLET(S) [place] tablet 00 BY MOUTH Medical ONCE A DAY Branch WITH BREAKFAST. METFORMIN 2020-0 Yes [id number] TAKE ONE Univers ER 750 mg 7-02 (1) ity of 24 hr 00:00: TABLET(S) [place] tablet 00 BY MOUTH Medical ONCE A DAY Branch WITH BREAKFAST. METFORMIN 2020-0 Yes [id number] TAKE ONE Univers ER 750 mg 7-02 (1) ity of 24 hr 00:00: TABLET(S) [place] tablet 00 BY MOUTH Medical ONCE A DAY Branch WITH BREAKFAST. METFORMIN 2020-0 Yes [id number] TAKE ONE Univers ER 750 mg 7-02 (1) ity of 24 hr 00:00: TABLET(S) [place] tablet 00 BY MOUTH Medical ONCE A DAY Branch WITH BREAKFAST. METFORMIN 2020-0 Yes [id number] TAKE ONE Univers ER 750 mg 7-02 (1) ity of 24 hr 00:00: TABLET(S) [place] tablet 00 BY MOUTH Medical ONCE A DAY Branch WITH BREAKFAST. METFORMIN 2020-0 Yes [id number] TAKE ONE Univers ER 750 mg 7-02 (1) ity of 24 hr 00:00: TABLET(S) [place] tablet 00 BY MOUTH Medical ONCE A DAY Branch WITH BREAKFAST. METFORMIN 2020-0 Yes [id number] TAKE ONE Univers ER 750 mg 7-02 (1) ity of 24 hr 00:00: TABLET(S) [place] tablet 00 BY MOUTH Medical ONCE A DAY Branch WITH BREAKFAST. METFORMIN 2020-0 Yes [id number] TAKE ONE Univers ER 750 mg 7-02 (1) ity of 24 hr 00:00: TABLET(S) [place] tablet 00 BY MOUTH Medical ONCE A DAY Branch WITH BREAKFAST. METFORMIN 2020-0 Yes [id number] TAKE ONE Univers ER 750 mg 7-02 (1) ity of 24 hr 00:00: TABLET(S) [place] tablet 00 BY MOUTH Medical ONCE A DAY Branch WITH BREAKFAST. METFORMIN 2020-0 Yes [id number] TAKE ONE Univers ER 750 mg 7-02 (1) ity of 24 hr 00:00: TABLET(S) [place] tablet 00 BY MOUTH Medical ONCE A DAY Branch WITH BREAKFAST. METFORMIN 2020-0 Yes [id number] TAKE ONE Univers ER 750 mg 7-02 (1) ity of 24 hr 00:00: TABLET(S) [place] tablet 00 BY MOUTH Medical ONCE A DAY Branch WITH BREAKFAST. METFORMIN 2020-0 Yes [id number] TAKE ONE Univers ER 750 mg 7-02 (1) ity of 24 hr 00:00: TABLET(S) [place] tablet 00 BY MOUTH Medical ONCE A DAY Branch WITH BREAKFAST. EZETIMIBE 2020-0 Yes [id number] TAKE ONE Univers 10 mg 5-04 (1) ity of tablet 00:00: TABLET(S) [place] 00 BY MOUTH Medical ONCE A Branch DAY. EZETIMIBE 2020-0 Yes [id number] TAKE ONE Univers 10 mg 5-04 (1) ity of tablet 00:00: TABLET(S) [place] 00 BY MOUTH Medical ONCE A Branch DAY. EZETIMIBE 2020-0 Yes [id number] TAKE ONE Univers 10 mg 5-04 (1) ity of tablet 00:00: TABLET(S) [place] 00 BY MOUTH Medical ONCE A Branch DAY. EZETIMIBE 2020-0 Yes [id number] TAKE ONE Univers 10 mg 5-04 (1) ity of tablet 00:00: TABLET(S) [place] 00 BY MOUTH Medical ONCE A Branch DAY. EZETIMIBE 2020-0 Yes [id number] TAKE ONE Univers 10 mg 5-04 (1) ity of tablet 00:00: TABLET(S) [place] 00 BY MOUTH Medical ONCE A Branch DAY. EZETIMIBE 2020-0 Yes [id number] TAKE ONE Univers 10 mg 5-04 (1) ity of tablet 00:00: TABLET(S) [place] 00 BY MOUTH Medical ONCE A Branch DAY. EZETIMIBE 2020-0 Yes [id number] TAKE ONE Univers 10 mg 5-04 (1) ity of tablet 00:00: TABLET(S) [place] 00 BY MOUTH Medical ONCE A Branch DAY. EZETIMIBE 2020-0 Yes [id number] TAKE ONE Univers 10 mg 5-04 (1) ity of tablet 00:00: TABLET(S) [place] 00 BY MOUTH Medical ONCE A Branch DAY. EZETIMIBE 2020-0 Yes [id number] TAKE ONE Univers 10 mg 5-04 (1) ity of tablet 00:00: TABLET(S) [place] 00 BY MOUTH Medical ONCE A Branch DAY. EZETIMIBE 2020-0 Yes [id number] TAKE ONE Univers 10 mg 5-04 (1) ity of tablet 00:00: TABLET(S) [place] 00 BY MOUTH Medical ONCE A Branch DAY. EZETIMIBE 2020-0 Yes [id number] TAKE ONE Univers 10 mg 5-04 (1) ity of tablet 00:00: TABLET(S) [place] 00 BY MOUTH Medical ONCE A Branch DAY. EZETIMIBE 2020-0 Yes [id number] TAKE ONE Univers 10 mg 5-04 (1) ity of tablet 00:00: TABLET(S) [place] 00 BY MOUTH Medical ONCE A Branch DAY. EZETIMIBE 2020-0 Yes [id number] TAKE ONE Univers 10 mg 5-04 (1) ity of tablet 00:00: TABLET(S) [place] 00 BY MOUTH Medical ONCE A Branch DAY. EZETIMIBE 2020-0 Yes [id number] TAKE ONE Univers 10 mg 5-04 (1) ity of tablet 00:00: TABLET(S) [place] 00 BY MOUTH Medical ONCE A Branch DAY. EZETIMIBE 2020-0 Yes [id number] TAKE ONE Univers 10 mg 5-04 (1) ity of tablet 00:00: TABLET(S) [place] 00 BY MOUTH Medical ONCE A Branch DAY. EZETIMIBE 2020-0 Yes [id number] TAKE ONE Univers 10 mg 5-04 (1) ity of tablet 00:00: TABLET(S) [place] 00 BY MOUTH Medical ONCE A Branch DAY. EZETIMIBE 2020-0 Yes [id number] TAKE ONE Univers 10 mg 5-04 (1) ity of tablet 00:00: TABLET(S) [place] 00 BY MOUTH Medical ONCE A Branch DAY. EZETIMIBE 2020-0 Yes [id number] TAKE ONE Univers 10 mg 5-04 (1) ity of tablet 00:00: TABLET(S) [place] 00 BY MOUTH Medical ONCE A Branch DAY. EZETIMIBE 2020-0 Yes [id number] TAKE ONE Univers 10 mg 5-04 (1) ity of tablet 00:00: TABLET(S) [place] 00 BY MOUTH Medical ONCE A Branch DAY. EZETIMIBE 2020-0 Yes [id number] TAKE ONE Univers 10 mg 5-04 (1) ity of tablet 00:00: TABLET(S) [place] 00 BY MOUTH Medical ONCE A Branch DAY. EZETIMIBE 2020-0 Yes [id number] TAKE ONE Univers 10 mg 5-04 (1) ity of tablet 00:00: TABLET(S) [place] 00 BY MOUTH Medical ONCE A Branch DAY. METFORMIN 2020-0 Yes [id number] TAKE ONE Univers ER 750 mg 4-03 (1) ity of 24 hr 00:00: TABLET(S) [place] tablet 00 BY MOUTH Medical ONCE A DAY Branch WITH BREAKFAST. METFORMIN 2020-0 Yes [id number] TAKE ONE Univers ER 750 mg 4-03 (1) ity of 24 hr 00:00: TABLET(S) [place] tablet 00 BY MOUTH Medical ONCE A DAY Branch WITH BREAKFAST. METFORMIN 2020-0 2020- No [id number] TAKE ONE Univers ER 750 mg 4-03 07-02 (1) ity of 24 hr 00:00: 00:00 TABLET(S) [place] tablet 00 :00 BY MOUTH Medical ONCE A DAY Branch WITH BREAKFAST. METFORMIN 2020-0 2020- No [id number] TAKE ONE Univers ER 750 mg 4-03 07-02 (1) ity of 24 hr 00:00: 00:00 TABLET(S) [place] tablet 00 :00 BY MOUTH Medical ONCE A DAY Branch WITH BREAKFAST. dulaglutide 2018-08 Yes [id number] .75mg inject Univers (TRULICITY) 2-06 0.75 mg ity o f 0.75 mg/0.5 00:00: under the [place] mL PnIj 00 skin Medical weekly. Branch dulaglutide 2018-08 Yes [id number] .75mg inject Univers (TRULICITY) 2-06 0.75 mg ity o f 0.75 mg/0.5 00:00: under the [place] mL PnIj 00 skin Medical weekly. Branch dulaglutide 2018-08 Yes [id number] .75mg inject Univers (TRULICITY) 2-06 0.75 mg ity o f 0.75 mg/0.5 00:00: under the [place] mL PnIj 00 skin Medical weekly. Branch dulaglutide 2018-08 Yes [id number] .75mg inject Univers (TRULICITY) 2-06 0.75 mg ity o f 0.75 mg/0.5 00:00: under the [place] mL PnIj 00 skin Medical weekly. Branch dulaglutide 2018-08 Yes [id number] .75mg inject Univers (TRULICITY) 2-06 0.75 mg ity o f 0.75 mg/0.5 00:00: under the [place] mL PnIj 00 skin Medical weekly. Branch dulaglutide 2018-08 Yes [id number] .75mg inject Univers (TRULICITY) 2-06 0.75 mg ity o f 0.75 mg/0.5 00:00: under the [place] mL PnIj 00 skin Medical weekly. Branch dulaglutide 2018-08 Yes [id number] .75mg inject Univers (TRULICITY) 2-06 0.75 mg ity o f 0.75 mg/0.5 00:00: under the [place] mL PnIj 00 skin Medical weekly. Branch dulaglutide 2018-08 Yes [id number] .75mg inject Univers (TRULICITY) 2-06 0.75 mg ity o f 0.75 mg/0.5 00:00: under the [place] mL PnIj 00 skin Medical weekly. Branch dulaglutide 2018-08 Yes [id number] .75mg inject Univers (TRULICITY) 2-06 0.75 mg ity o f 0.75 mg/0.5 00:00: under the [place] mL PnIj 00 skin Medical weekly. Branch dulaglutide 2018-08 Yes [id number] .75mg inject Univers (TRULICITY) 2-06 0.75 mg ity o f 0.75 mg/0.5 00:00: under the [place] mL PnIj 00 skin Medical weekly. Branch dulaglutide 2018-08 Yes [id number] .75mg inject Univers (TRULICITY) 2-06 0.75 mg ity o f 0.75 mg/0.5 00:00: under the [place] mL PnIj 00 skin Medical weekly. Branch dulaglutide 2018-08 Yes [id number] .75mg inject Univers (TRULICITY) 2-06 0.75 mg ity o f 0.75 mg/0.5 00:00: under the [place] mL PnIj 00 skin Medical weekly. Branch dulaglutide 2018-08 Yes [id number] .75mg inject Univers (TRULICITY) 2-06 0.75 mg ity o f 0.75 mg/0.5 00:00: under the [place] mL PnIj 00 skin Medical weekly. Branch dulaglutide 2018-08 Yes [id number] .75mg inject Univers (TRULICITY) 2-06 0.75 mg ity o f 0.75 mg/0.5 00:00: under the [place] mL PnIj 00 skin Medical weekly. Branch dulaglutide 2018-08 Yes [id number] .75mg inject Univers (TRULICITY) 2-06 0.75 mg ity o f 0.75 mg/0.5 00:00: under the [place] mL PnIj 00 skin Medical weekly. Branch dulaglutide 2018-08 Yes [id number] .75mg inject Univers (TRULICITY) 2-06 0.75 mg ity o f 0.75 mg/0.5 00:00: under the [place] mL PnIj 00 skin Medical weekly. Branch dulaglutide 2018- Yes [id number] .75mg inject Univers (TRULICITY) 2-06 0.75 mg ity o f 0.75 mg/0.5 00:00: under the [place] mL PnIj 00 skin Medical weekly. Branch dulaglutide 2018-08 Yes [id number] .75mg inject Univers (TRULICITY) 2-06 0.75 mg ity o f 0.75 mg/0.5 00:00: [place] mL PnIj 00 skin Medical weekly. Branch dulaglutide 2018-08 Yes [id number] .75mg inject [facility] (TRULICITY) 2-06 0.75 mg ity o f 0.75 mg/0.5 00:00: [place] mL PnIj 00 skin Medical weekly. Branch ezetimibe 2018-08 Yes [id number] 10mg Take 1 U nivers 10 mg 2-06 tablet by ity of tablet 00:00: mouth [place] 00 daily. Medical Branch dulaglutide 2018-08 Yes [id number] .75mg inject [facility] (TRULICITY) 2-06 0.75 mg ity o f 0.75 mg/0.5 00:00: [place] mL PnIj 00 skin Medical weekly. Branch dulaglutide 2018-08 Yes [id number] .75mg inject [facility] (TRULICITY) 2-06 0.75 mg ity o f 0.75 mg/0.5 00:00: [place] mL PnIj 00 skin Medical weekly. Branch dulaglutide 2018-08 Yes [id number] .75mg inject [facility] (TRULICITY) 2-06 0.75 mg ity o f 0.75 mg/0.5 00:00: [place] mL PnIj 00 skin Medical weekly. Branch ezetimibe 2018-08 2020- No [id number] 10mg Take 1 [facility] 10 mg 2- 05-04 tablet by ity of tablet 00:00: 00:00 mouth [place] 00 :00 daily. Medical Branch metformin 2018-08 2020- No [id number] 750mg Take 1 Univers ER 750 mg [...] directed, ity o f LANCET) 00:00: TID, [place] Misc DX:E11.9 Medical Branch blood sugar 2019-0 [...] STRIPS) Branch strip bupropion Yes Take by Unive rs HCl 5-07 mouth. ity of (WELLBUTRIN 16:24: [place] ORAL) Medical Branch bupropion Yes Take by Unive rs HCl 5-07 mouth. ity of (WELLBUTRIN 16:24: [place] ORAL) Medical Branch bupropion Yes Take by Unive rs HCl 5-07 mouth. ity of (WELLBUTRIN 16:24: [place] ORAL) Medical Branch bupropion Yes Take by Unive rs HCl 5-07 mouth. ity of (WELLBUTRIN 16:24: [place] ORAL) 02 Medical Branch bupropion Yes Take by Unive rs HCl 5-07 mouth. ity of (WELLBUTRIN 16:24: [place] ORAL) Medical Branch bupropion Yes Take by Unive rs HCl 5-07 mouth. ity of (WELLBUTRIN 16:24: [place] ORAL) Medical Branch bupropion Yes Take by Unive rs HCl 5-07 mouth. ity of (WELLBUTRIN 16:24: [place] ORAL) Medical Branch bupropion Yes Take by Unive rs HCl 5-07 mouth. ity of (WELLBUTRIN 16:24: [place] ORAL) Medical Branch bupropion Yes Take by Unive rs HCl 5-07 mouth. ity of (WELLBUTRIN 16:24: [place] ORAL) Medical Branch bupropion Yes Take by Unive rs HCl 5-07 mouth. ity of (WELLBUTRIN 16:24: [place] ORAL) Medical Branch bupropion Yes Take by Unive rs HCl 5-07 mouth. ity of (WELLBUTRIN 16:24: [place] ORAL) Medical Branch bupropion Yes Take by Unive rs HCl 5-07 mouth. ity of (WELLBUTRIN 16:24: [place] ORAL) Medical Branch bupropion Yes Take by Unive rs HCl 5-07 mouth. ity of (WELLBUTRIN 16:24: [place] ORAL) Medical Branch bupropion Yes Take by Unive rs HCl 5-07 mouth. ity of (WELLBUTRIN 16:24: [place] ORAL) Medical Branch bupropion Yes Take by Unive rs HCl 5-07 mouth. ity of (WELLBUTRIN 16:24: [place] ORAL) Medical Branch bupropion Yes Take by Unive rs HCl 5-07 mouth. ity of (WELLBUTRIN 16:24: [place] ORAL) Medical Branch escitalopra Yes 20mg Take 20 mg Univers m oxalate 07 by mouth ity of 20 mg 16:23: daily. [place] tablet 21 Medical Branch nebivolol Yes 10mg Take 10 mg Un [facility] (BYSTOLIC) 5-07 by mouth ity o f 10 mg 16:23: daily. [place] tablet 21 [facility] [place] escitalopra 2018-0 Yes 20mg Take 20 mg Univers m oxalate 5-07 by mouth ity of 20 mg 16:23: daily. [place] tablet 21 Medical Branch montelukast 2018-0 Yes 10mg Take 10 mg Univers 10 mg 5-07 by mouth. ity of tablet 16:23: [address] montelukast 2018-0 Yes 10mg Take 10 mg Univers 10 mg 5-07 by mouth. ity of tablet 16:23: [address] nebivolol 0 Yes 10mg Take 10 mg [facility] (BYSTOLIC) 5-07 by mouth ity o f 10 mg 16:23: daily. [place] tablet 21 Medical Branch escitalopra Yes 20mg Take 20 mg Univers m oxalate 5-07 by mouth ity of 20 mg 16:23: daily. [place] tablet 21 [facility] montelukast Yes 10mg Take 10 mg Univers 10 mg 5-07 by mouth. ity of tablet 16:23: [address] nebivolol 0 Yes 10mg Take 10 mg [facility] [place] (BYSTOLIC) 5-07 by mouth ity o f 10 mg 16:23: daily. [place] tablet 21 [facility] [place] escitalopra Yes 20mg Take 20 mg Univers m oxalate 5-07 by mouth ity of 20 mg 16:23: daily. [place] tablet 21 [facility] montelukast 0 Yes 10mg Take 10 mg Univers 10 mg 5-07 by mouth. ity of tablet 16:23: [address] nebivolol 0 Yes 10mg Take 10 mg [facility] (BYSTOLIC) 5-07 by mouth ity o f 10 mg 16:23: daily. [place] tablet 21 [facility] [place] escitalopra 2018-0 Yes 20mg Take 20 mg Univers m oxalate 5-07 by mouth ity of 20 mg 16:23: daily. [place] tablet 21 [facility] montelukast 0 Yes 10mg Take 10 mg Univers 10 mg 5-07 by mouth. ity of tablet 16:23: [address] nebivolol 0 Yes 10mg Take 10 mg [facility] (BYSTOLIC) 5-07 by mouth ity o f 10 mg 16:23: daily. [place] tablet 21 [facility] escitalopra 2018-0 Yes 20mg Take 20 mg Univers m oxalate 5-07 by mouth ity of 20 mg 16:23: daily. [place] tablet 21 [facility] montelukast 2018-0 Yes 10mg Take 10 mg Univers 10 mg 5-07 by mouth. ity of tablet 16:23: [address] nebivolol 0 Yes 10mg Take 10 mg [facility] [place] (BYSTOLIC) 5-07 by mouth ity o f 10 mg 16:23: daily. [place] tablet 21 [facility] escitalopra Yes 20mg Take 20 mg Univers m oxalate 5-07 by mouth ity of 20 mg 16:23: daily. [place] tablet 21 [facility] montelukast Yes 10mg Take 10 mg Univers 10 mg 5-07 by mouth. ity of tablet 16:23: [address] nebivolol Yes 10mg Take 10 mg [facility] [place] (BYSTOLIC) 5-07 by mouth ity o f 10 mg 16:23: daily. [place] tablet 21 [facility] escitalopra Yes 20mg Take 20 mg Univers m oxalate 5-07 by mouth ity of 20 mg 16:23: daily. [place] tablet 21 [facility] montelukast Yes 10mg Take 10 mg Univers 10 mg 5-07 by mouth. ity of tablet 16:23: [address] nebivolol 0 Yes 10mg Take 10 mg [facility] [place] (BYSTOLIC) 5-07 by mouth ity o f 10 mg 16:23: daily. [place] tablet 21 [facility] escitalopra Yes 20mg Take 20 mg Univers m oxalate 5-07 by mouth ity of 20 mg 16:23: daily. [place] tablet 21 [facility] montelukast 0 Yes 10mg Take 10 mg Univers 10 mg 5-07 by mouth. ity of tablet 16:23: [address] nebivolol 0 Yes 10mg Take 10 mg [facility] [place] (BYSTOLIC) 5-07 by mouth ity o f 10 mg 16:23: daily. [place] tablet 21 [facility] escitalopra 0 Yes 20mg Take 20 mg Univers m oxalate 5-07 by mouth ity of 20 mg 16:23: daily. [place] tablet 21 [facility] nebivolol 0 Yes 10mg Take 10 mg [facility] [place] (BYSTOLIC) 5-07 by mouth ity o f 10 mg 16:23: daily. [place] tablet 21 [facility] montelukast 2018-0 Yes 10mg Take 10 mg Univers 10 mg 5-07 by mouth. ity of tablet 16:23: [address] escitalopra 2018-0 Yes 20mg Take 20 mg Univers m oxalate 5-07 by mouth ity of 20 mg 16:23: daily. [place] tablet 21 [facility] montelukast 2018-0 Yes 10mg Take 10 mg Univers 10 mg 5-07 by mouth. ity of tablet 16:23: [address] nebivolol 0 Yes 10mg Take 10 mg [facility] [place] (BYSTOLIC) 5-07 by mouth ity o f 10 mg 16:23: daily. [place] tablet 21 [facility] [place] escitalopra Yes 20mg Take 20 mg Univers m oxalate 5-07 by mouth ity of 20 mg 16:23: daily. [place] tablet 21 [facility] montelukast Yes 10mg Take 10 mg Univers 10 mg 5-07 by mouth. ity of tablet 16:23: [address] nebivolol 0 Yes 10mg Take 10 mg [facility] [place] (BYSTOLIC) 5-07 by mouth ity o f 10 mg 16:23: daily. [place] tablet 21 [facility] escitalopra 0 Yes 20mg Take 20 mg Univers m oxalate 5-07 by mouth ity of 20 mg 16:23: daily. [place] tablet 21 [facility] montelukast 0 Yes 10mg Take 10 mg Univers 10 mg 5-07 by mouth. ity of tablet 16:23: [address] nebivolol 0 Yes 10mg Take 10 mg [facility] [place] (BYSTOLIC) 5-07 by mouth ity o f 10 mg 16:23: daily. [place] tablet 21 [facility] escitalopra 2018-0 Yes 20mg Take 20 mg Univers m oxalate 5-07 by mouth ity of 20 mg 16:23: daily. [place] tablet 21 [facility] montelukast 2018-0 Yes 10mg Take 10 mg Univers 10 mg 5-07 by mouth. ity of tablet 16:23: [address] nebivolol 2018-0 Yes 10mg Take 10 mg [facility] [place] (BYSTOLIC) 5-07 by mouth ity o f 10 mg 16:23: daily. [place] tablet 21 [facility] escitalopra Yes 20mg Take 20 mg Univers m oxalate 5-07 by mouth ity of 20 mg 16:23: daily. [place] tablet 21 Medical Branch montelukast Yes 10mg Take 10 mg Univers 10 mg 5-07 by mouth. ity of tablet 16:23: [place] 21 Medical Branch nebivolol Yes 10mg Take 10 mg [facility] [place] (BYSTOLIC) 5-07 by mouth ity o f 10 mg 16:23: daily. [place] tablet 21 Medical Branch escitalopra Yes 20mg Take 20 mg Univers m oxalate 5-07 by mouth ity of 20 mg 16:23: daily. [place] tablet 21 Medical Branch montelukast Yes 10mg Take 10 mg Univers 10 mg 5-07 by mouth. ity of tablet 16:23: [place] 21 [facility] Branch nebivolol Yes 10mg Take 10 mg [facility] [place] (BYSTOLIC) 5-07 by mouth ity o f 10 mg 16:23: daily. [place] tablet 21 Medical Branch bupropion Yes Take by Unive rs HCl 5-07 mouth. ity of (WELLBUTRIN 11:24: [place] ORAL) [facility] bupropion Yes Take by Unive rs HCl 5-07 mouth. ity of (WELLBUTRIN 11:24: [place] ORAL) [facility] bupropion Yes Take by Unive rs HCl 5-07 mouth. ity of (WELLBUTRIN 11:24: [place] ORAL) [facility] bupropion Yes Take by Unive rs HCl 5-07 mouth. ity of (WELLBUTRIN 11:24: [place] ORAL) [facility] bupropion Yes Take by Unive rs HCl 5-07 mouth. ity of (WELLBUTRIN 11:24: [place] ORAL) Medical Branch bupropion Yes Take by Unive rs HCl 5-07 mouth. ity of (WELLBUTRIN 11:24: [place] ORAL) Medical Branch bupropion Yes Take by Unive rs HCl 5-07 mouth. ity of (WELLBUTRIN 11:24: [place] ORAL) Medical Branch bupropion Yes Take by Unive rs HCl 5-07 mouth. ity of (WELLBUTRIN 11:24: [place] ORAL) [facility] bupropion Yes Take by Unive rs HCl 5-07 mouth. ity of (WELLBUTRIN 11:24: [place] ORAL) 02 [facility] nebivolol Yes 10mg Take 10 mg [facility] [place] (BYSTOLIC) 5-07 by mouth ity o f 10 mg 11:23: daily. [place] tablet 21 [facility] escitalopra Yes 20mg Take 20 mg Univers m oxalate 5-07 by mouth ity of 20 mg 11:23: daily. [place] tablet 21 [facility] montelukast Yes 10mg Take 10 mg Univers 10 mg 5-07 by mouth. ity of tablet 11:23: [address] nebivolol Yes 10mg Take 10 mg [place] (BYSTOLIC) 5-07 by mouth ity o f 10 mg 11:23: daily. [place] tablet 21 [facility] escitalopra Yes 20mg Take 20 mg Univers m oxalate 5-07 by mouth ity of 20 mg 11:23: daily. [place] tablet 21 [facility] montelukast Yes 10mg Take 10 mg Univers 10 mg 5-07 by mouth. ity of tablet 11:23: [address] nebivolol Yes 10mg Take 10 mg [place] (BYSTOLIC) 5-07 by mouth ity o f 10 mg 11:23: daily. [place] tablet 21 [facility] escitalopra Yes 20mg Take 20 mg Univers m oxalate 5-07 by mouth ity of 20 mg 11:23: daily. [place] tablet 21 [facility] montelukast Yes 10mg Take 10 mg Univers 10 mg 5-07 by mouth. ity of tablet 11:23: [address] nebivolol Yes 10mg Take 10 mg [place] (BYSTOLIC) 5-07 by mouth ity o f 10 mg 11:23: daily. [place] tablet 21 [facility] escitalopra Yes 20mg Take 20 mg Univers m oxalate 5-07 by mouth ity of 20 mg 11:23: daily. [place] tablet 21 [facility] montelukast Yes 10mg Take 10 mg Univers 10 mg 5-07 by mouth. ity of tablet 11:23: [address] nebivolol Yes 10mg Take 10 mg [place] (BYSTOLIC) 5-07 by mouth ity o f 10 mg 11:23: daily. [place] tablet 21 [facility] [place] escitalopra Yes 20mg Take 20 mg Univers m oxalate 5-07 by mouth ity of 20 mg 11:23: daily. [place] tablet 21 [facility] montelukast 0 Yes 10mg Take 10 mg Univers 10 mg 5-07 by mouth. ity of tablet 11:23: [address] nebivolol Yes 10mg Take 10 mg [place] (BYSTOLIC) 5-07 by mouth ity o f 10 mg 11:23: daily. [place] tablet 21 [facility] [place] escitalopra Yes 20mg Take 20 mg Univers m oxalate 5-07 by mouth ity of 20 mg 11:23: daily. [place] tablet 21 [facility] montelukast Yes 10mg Take 10 mg Univers 10 mg 5-07 by mouth. ity of tablet 11:23: [address] nebivolol Yes 10mg Take 10 mg [place] (BYSTOLIC) 5-07 by mouth ity o f 10 mg 11:23: daily. [place] tablet 21 [facility] escitalopra Yes 20mg Take 20 mg Univers m oxalate 5-07 by mouth ity of 20 mg 11:23: daily. [place] tablet 21 [facility] montelukast Yes 10mg Take 10 mg Univers 10 mg 5-07 by mouth. ity of tablet 11:23: [address] nebivolol Yes 10mg Take 10 mg [place] (BYSTOLIC) 5-07 by mouth ity o f 10 mg 11:23: daily. [place] tablet 21 [facility] escitalopra Yes 20mg Take 20 mg Univers m oxalate 5-07 by mouth ity of 20 mg 11:23: daily. [place] tablet 21 [facility] montelukast Yes 10mg Take 10 mg Univers 10 mg 5-07 by mouth. ity of tablet 11:23: [address] nebivolol 0 Yes 10mg Take 10 mg [place] (BYSTOLIC) 5-07 by mouth ity o f 10 mg 11:23: daily. [place] tablet 21 [facility] escitalopra Yes 20mg Take 20 mg Univers m oxalate 5-07 by mouth ity of 20 mg 11:23: daily. [place] tablet 21 Medical Branch montelukast Yes 10mg Take 10 mg Univers 10 mg 5-07 by mouth. ity of tablet 11:23: [place] 21 Medical Branch metformin Yes [id number] 750mg Take 1 Univers ER 750 mg 5-07 tablet by ity o f 24 hr 00:00: mouth [place] tablet 00 daily with Medical breakfast. Branch dulaglutide Yes [id number] .75mg inject [facility] (TRULICITY) 5-07 0.75 mg ity o f 0.75 mg/0.5 00:00: [place] mL PnIj 00 skin Medical weekly. Branch ezetimibe Yes [id number] 10mg Take 1 U nivers 10 mg 5-07 tablet by ity of tablet 00:00: mouth [place] 00 daily. Medical Branch metformin Yes [id number] 750mg Take 1 Univers ER 750 mg 5-07 tablet by ity o f 24 hr 00:00: mouth [place] tablet 00 daily with Medical breakfast. Branch dulaglutide Yes [id number] .75mg inject [facility] (TRULICITY) 5-07 0.75 mg ity o f 0.75 mg/0.5 00:00: under the [place] mL PnIj 00 skin Medical weekly. Branch ezetimibe Yes [id number] 10mg Take 1 U nivers 10 mg 5-07 tablet by ity of tablet 00:00: mouth [place] 00 daily. Medical Branch metformin Yes [id number] 750mg Take 1 Univers ER 750 mg 5-07 tablet by ity o f 24 hr 00:00: mouth [place] tablet 00 daily with Medical breakfast. Branch dulaglutide Yes [id number] .75mg inject [facility] (TRULICITY) 5-07 0.75 mg ity o f 0.75 mg/0.5 00:00: under the [place] mL PnIj 00 skin Medical weekly. Branch ezetimibe Yes [id number] 10mg Take 1 U nivers 10 mg 5-07 tablet by ity of tablet 00:00: mouth [place] 00 daily. Medical Branch CONTOUR Yes Use as Univers NEXT TEST 2-05 directed, ity o f STRIPS 00:00: TID, [place] strip 00 DX:E11.9 Medical Branch Lancets 2019-0 Yes Use as Univers (MICROLET 2-05 directed, ity o f LANCET) 00:00: TID, [place] Misc 00 DX:E11.9 Medical Branch CONTOUR 2018- Yes Use as Univers NEXT TEST 2-05 directed, ity o f STRIPS 00:00: TID, [place] strip 00 DX:E11.9 Medical Branch Lancets Yes Use as Univers (MICROLET 2-05 directed, ity o f LANCET) 00:00: TID, [place] Misc 00 DX:E11.9 Medical Branch CONTOUR 2019- No Use as Univers NEXT TEST 2-05 -20 directed, ity of STRIPS 00:00: 00:00 TID, [place] strip 00 :00 DX:E11.9 Medical Branch Lancets 0 2019- No Use as Univers (MICROLET 2-05 - directed, ity of LANCET) 00:00: 00:00 TID, [place] Misc 00 :00 DX:E11.9 Medical Branch metaxalone 2017-0 Yes 800mg Take [address] [facility] [address] (SKELAXIN) 4-21 mg by [facility] 800 MG 11:21: mouth Medical tablet 07 every 6 Center (six) hours as needed for Muscle spasms. L. Yes 2{tbl} QD Take [address] [facility] ACIDOPHILUS 4-21 tablets by Ariana kes /DIG ENZ 11:21: mouth Medical CMB 5 07 daily. [place] (PROBIOTIC- DIGESTIVE ENZYMES ORAL) VALERIAN Yes 470mg Take [address] ORAL 4-21 mg by [facility] 11:21: mouth as Medical 07 needed . Center Missing or 2018-0 Yes every [address] [facility] Non-Formula 4-21 (one) hour Ariana babb ry 11:21: [facility] Medication 07 otc Center vitamin . OREGANO OIL 2017-0 Yes QD Take by [facility] ORAL 4-21 [facility] 11:21: daily. Medical Center KELP ORAL 2017-0 Yes QD Take by [facility] 11:21: daily. Medical [address] [place] [address] GRAPEFRUIT 2017-0 Yes QD Take by [facility] FORMULA 4-21 [facility] ORAL 11:21: daily. Medical [address] [place] [address] COQ10, 2017-0 Yes QD Take by [facility] UBIQUINOL, 4-21 [facility] ORAL 11:21: daily. Medical [address] [place] [address] carica 0 Yes Take by [facility] papaya - mouth as [facility] (PAPAYA 11:21: needed. Medical ENZYME) Tab [address] [place] [address] ENZYMES,DIG 0 Yes QD Take by [facility] ESTIVE - mouth [facility] (DIGESTIVE 11:21: daily. Medic al ENZYMES Center ORAL) vitamin E 0 Yes 400U QD Take [address] 400 UNIT 12-02 Units by [facility] capsule 11:21: mouth Medical 07 daily. [place] CALCIUM/MAG 0 Yes QD Take by [facility] NESIUM/VIT 12-02 mouth [facility] B COMP 11:21: daily. Medical (CALCIUM-MA Center GNESIUM-B COMPLEX ORAL) GARLIC ORAL 2017-0 Yes QD Take by [facility] - [facility] 11:21: daily. [address] metFORMIN Yes 500mg Take [address] (GLUCOPHAGE - mg by [facility] ) 500 MG 11:21: mouth Medical tablet 07 daily with Center breakfast . nebivolol Yes 5mg QD Take [address] (BYSTOLIC) 12-02 by mouth [facility] 5 MG tablet 11:21: daily. Medi remedios [address] [place] [address] acetaminoph acetaminoph No acetaminop [place] en 300 [...] mg tablet 100 mg Epi scop tablet [facility] Durezol Durezol No Durezol [place] 0.05 % eye 0.05 % eye 0.05 % eye da drops drops drops [facility] INSTILL ONE INSTILL ONE INSTILL al (1) DROP(S) (1) DROP(S) ONE (1) Health IN RIGHT IN RIGHT DROP(S) [facility] E[facility] FOUR EYE FOUR RIGHT EYE h TIMES A TIMES A FOUR TIMES Pro gram DAY. DAY. A DAY. epinastine epinastine No epinastine [place] 0.05 % eye 0.05 % eye 0.05 % eye da drops drops drops [facility] escitalopra escitalopra No escitalopr [...] 10 mg da tablet tablet tablet [facility] fluconazole fluconazole No [...] drops,suspe drops,susp [facility] nsion nsion ension al [facility] levofloxaci levofloxaci No [...] eye da drops drops gel drops [facility] Lotemax SM Lotemax [...] 500 mg da tablet tablet tablet [facility] metformin metformin No [...] 500 mg da tablet tablet tablet [facility] methocarbam methocarbam No [...] ole 500 mg da tablet tablet tablet [facility] Microlet Microlet No Microlet [place] Lancet Lancet Lancet da [facility] montelukast montelukast No montelukas [place] 10 mg 10 mg t 10 mg da tablet tablet tablet [facility] Myrbetriq Myrbetriq No [...] transderma al patch patch l patch Health Outre [facility] Program nystatin nystatin No nystatin [place] 100,000 100,000 100,000 da unit/gram unit/gram unit/gram [facility] topical topical topical al powder powder powder [facility] APPLY TO APPLY TO APPLY TO Out reac AFFECTED AFFECTED AFFECTED h AREA(S) AREA(S) AREA(S) Progra m TWICE A TWICE A TWICE A DAY. DAY. DAY. omeprazole omeprazole No omeprazole [place] 40 mg 40 mg 40 mg da capsule,del capsule,del capsule,de [facility] ayed ayed layed al release release release [facility] TAKE ONE TAKE ONE TAKE ONE Out reac (1) (1) (1) h CAPSULE(S) CAPSULE(S) CAPSULE(S) Program BY MOUTH BY MOUTH BY MOUTH DAILY. DAILY. DAILY. ondansetron ondansetron No ondansetro [place] 4 mg 4 mg n 4 mg da disintegrat disintegrat disintegra [facility] ing tablet ing tablet ting al tablet [facility] Outre [facility] Program ondansetron ondansetron No ondansetro [place] HCl 4 mg HCl 4 mg n HCl 4 mg d a tablet tablet tablet [facility] pantoprazol pantoprazol No pantoprazo [place] [...] drops % eye da drops [facility] al [facility] Outre[facility] peg-electro peg-electro No peg-electr [...] MINUTES MINUTES EVERY 15 UNTIL UNTIL MINUTES [facility]ISON PRISON UNTIL FINISHED. 4 FINISHED. 4 PRISON HOURS PRIOR HOURS PRIOR FINISHED. TO TO [...] TAKE ONE TAKE ONE capsule [facility] copper etcher (1) (1) TAKE ONE al TABLET(S) TABLET(S) [...] route. s route. us route. Immunizations Ordered Filled Immunization Date Status Comments Sourc e Immunization Name Name Tdap Td 2018-05-[address] [facility] remedios 12:28:00 Group TDAP 2018-05-28 Completed [facility] 00:00:00 [facility] TDAP 2018-05-28 Completed [facility] 00:00:00 [facility] Branch TDAP 2018-05-28 Completed [facility] of 00:00:00 [facility] Branch TDAP 2018-05-28 Completed [facility] of 00:00:00 [facility] Branch TDAP 2018-05-28 Completed [facility] of 00:00:00 [facility] Branch TDAP 2018-05-28 Completed [facility] of 00:00:00 [facility] Branch TDAP 2018-05-28 Completed [facility] 00:00:00 [place] [facility] TDAP 2018-05-28 Completed [facility] of 00:00:00 [facility] TDAP 2018-05-28 Completed [facility] of 00:00:00 [facility] Branch TDAP 2018-05-28 Completed [facility] of 00:00:00 [facility] Branch TDAP 2018-05-28 Completed [facility] of 00:00:00 [facility] Branch TDAP 2018-05-28 Completed University of 00:00:00 [facility] Branch TDAP 2018-05-28 Completed [facility] of 00:00:00 [facility] Branch TDAP 2018-05-28 Completed University of 00:00:00 [facility] TDAP 2018-05-28 Completed University of 00:00:00 [facility] TDAP 2018-05-28 Completed University of 00:00:00 [facility] Branch TDAP 2018-05-28 Completed [facility] of 00:00:00 [facility] TDAP 2018-05-28 Completed [facility] of 00:00:00 [facility] Tdap 2018-05-28 Completed [facility] of 00:00:00 [facility] Tdap 2018-05-28 Completed [facility] of 00:00:00 [facility] TDAP 2018-05-28 Completed [facility] of 00:00:00 [facility] TDAP 2018-05-28 Completed University of 00:00:00 [facility] Vital Signs Vital Name Observation Time Observation Value Comments Source Systolic blood 2022-06-24 14:16:00 127 mm[Hg] Univer sity of pressure [facility] Diastolic blood 2022-06-24 14:16:00 81 mm[Hg] Unive rsity of pressure [place] [facility] Heart rate 2022-06-24 14:16:00 77 /min [facility] [place] [facility] Body height 2022-06-24 14:16:00 170.2 cm [facility] [place] [facility] Body weight 2022-06-24 14:16:00 124.739 kg [facility] [place] [facility] BMI 2022-06-24 14:16:00 43.07 kg/m2 [facility] [place] [facility] Oxygen saturation in 2022-06-24 14:16:00 91 /min [facility] of Arterial blood by [place] Medi remedios Pulse oximetry Branch Systolic blood 2022-05-13 13:48:00 114 mm[Hg] Univer sity of pressure [place] [facility] Diastolic blood 2022-05-13 13:48:00 76 mm[Hg] Unive rsity of pressure [place] [facility] Heart rate 2022-05-13 13:48:00 82 /min [facility] Body height 2022-05-13 13:48:00 170.2 cm [facility] Body weight 2022-05-13 13:48:00 124.739 kg [facility] BMI 2022-05-13 13:48:00 43.07 kg/m2 [facility] Oxygen saturation in 2022-05-13 13:48:00 94 /min [facility] Arterial blood by [place] [facility] Pulse oximetry Branch BP Diastolic 2019-09-26 00:00:00 103 mm[Hg] [facility] Height 2019-09-26 00:00:00 67 [in_i] [facility] BMI (Body Mass 2019-09-26 00:00:00 44.6 kg/m2 [facility] Group BP Systolic 2019-09-26 00:00:00 156 mm[Hg] [facility] Body Weight 2019-09-26 00:00:00 4560 [oz_av] [facility] BP Diastolic 2019-07-26 00:00:00 100 mm[Hg] [facility] Height 2019-07-26 00:00:00 67 [in_i] [facility] BMI (Body Mass 2019-07-26 00:00:00 44.5 kg/m2 [facility] BP Systolic 2019-07-26 00:00:00 170 mm[Hg] [facility] Body Weight 2019-07-26 00:00:00 4544 [oz_av] [facility] BP Diastolic 2019-05-23 00:00:00 78 mm[Hg] [facility] Height 2019-05-23 00:00:00 67 [in_i] [facility] BMI (Body Mass 2019-05-23 00:00:00 43.4 kg/m2 [facility] BP Systolic 2019-05-23 00:00:00 150 mm[Hg] [facility] Body Weight 2019-05-23 00:00:00 276.8 [lb_av] [facility] BP Diastolic 2019-05-14 00:00:00 96 mm[Hg] [facility] Height 2019-05-14 00:00:00 67 [in_i] [facility] BMI (Body Mass 2019-05-14 00:00:00 43.9 kg/m2 [facility] BP Systolic 2019-05-14 00:00:00 164 mm[Hg] [facility] Body Weight 2019-05-14 00:00:00 4480 [oz_av] [facility] BP Diastolic 2019-02-28 00:00:00 79 mm[Hg] [facility] Height 2019-02-28 00:00:00 67 [in_i] [facility] BMI (Body Mass 2019-02-28 00:00:00 42.6 kg/m2 [facility] BP Systolic 2019-02-28 00:00:00 141 mm[Hg] [facility] Body Weight 2019-02-28 00:00:00 4352 [oz_av] [facility] BP Diastolic 2019-02-20 00:00:00 81 mm[Hg] [facility] Height 2019-02-20 00:00:00 67 [in_i] [facility] BMI (Body Mass 2019-02-20 00:00:00 42.3 kg/m2 [facility] Medical Index) Group BP Systolic 2019-02-20 00:00:00 120 mm[Hg] [facility] Body Weight 2019-02-20 00:00:00 270.3 [lb_av] [facility] BP Diastolic 2019-02-19 00:00:00 83 mm[Hg] [facility] Height 2019-02-19 00:00:00 67 [in_i] [facility] BMI (Body Mass 2019-02-19 00:00:00 42.3 kg/m2 [facility] Medical Index) Group BP Systolic 2019-02-19 00:00:00 136 mm[Hg] [facility] Body Weight 2019-02-19 00:00:00 4320 [oz_av] [facility] BP Diastolic 2019-01-24 00:00:00 89 mm[Hg] [facility] Height 2019-01-24 00:00:00 67 [in_i] [facility] BMI (Body Mass 2019-01-24 00:00:00 42.3 kg/m2 [facility] Medical Index) Group BP Systolic 2019-01-24 00:00:00 126 mm[Hg] [facility] Body Weight 2019-01-24 00:00:00 269.8 [lb_av] [facility] BP Diastolic 2018-12-27 00:00:00 81 mm[Hg] [facility] Height 2018-12-27 00:00:00 67 [in_i] [facility] BMI (Body Mass 2018-12-27 00:00:00 42.8 kg/m2 [facility] Medical Index) Group BP Systolic 2018-12-27 00:00:00 129 mm[Hg] [facility] Body Weight 2018-12-27 00:00:00 273.2 [lb_av] [facility] BP Diastolic 2018-12-17 00:00:00 93 mm[Hg] [facility] Height 2018-12-17 00:00:00 67 [in_i] [facility] BMI (Body Mass 2018-12-17 00:00:00 42.9 kg/m2 [facility] Medical Index) Group BP Systolic 2018-12-17 00:00:00 161 mm[Hg] [facility] Body Weight 2018-12-17 00:00:00 4384 [oz_av] [facility] BP Diastolic 2018-12-06 00:00:00 88 mm[Hg] [facility] Height 2018-12-06 00:00:00 67 [in_i] [facility] BMI (Body Mass 2018-12-06 00:00:00 43 kg/m2 [facility] Medical Index) Group BP Systolic 2018-12-06 00:00:00 152 mm[Hg] [facility] Body Weight 2018-12-06 00:00:00 274.7 [lb_av] [facility] BP Diastolic 2018-10-22 00:00:00 84 mm[Hg] [facility] Height 2018-10-22 00:00:00 67 [in_i] [facility] BMI (Body Mass 2018-10-22 00:00:00 43.5 kg/m2 [facility] Medical Index) Group BP Systolic 2018-10-22 00:00:00 152 mm[Hg] [facility] Body Weight 2018-10-22 00:00:00 4448 [oz_av] [facility] BMI (Body Mass 2018-08-27 00:00:00 44.6 kg/m2 [facility] Medical Index) Group BP Systolic 2018-08-27 00:00:00 186 mm[Hg] [facility] Body Weight 2018-08-27 00:00:00 4560 [oz_av] [facility] BP Diastolic 2018-08-27 00:00:00 100 mm[Hg] [facility] Height 2018-08-27 00:00:00 67 [in_i] [facility] BP Diastolic 2018-08-06 00:00:00 104 mm[Hg] [facility] Height 2018-08-06 00:00:00 67 [in_i] [facility] BMI (Body Mass 2018-08-06 00:00:00 43.9 kg/m2 [facility] Medical Index) Group BP Systolic 2018-08-06 00:00:00 166 mm[Hg] [facility] Body Weight 2018-08-06 00:00:00 4480 [oz_av] [facility] Height 2018-07-30 00:00:00 67 [in_i] [facility] BMI (Body Mass 2018-07-30 00:00:00 43.9 kg/m2 [facility] Body Weight 2018-07-30 00:00:00 280 [lb_av] [facility] 02 Sat by Pulse 2020-12-02 [...] 2020-12-02 11:20:37 Normal /min Weight 2020-12-02 11:20:37 853931.678\\S\\4448 Weight Measurement 2020-12-02 11:20:37 Estimated by Method [...] 2020-11-28 00:12:35 Normal /min Weight 2020-11-28 00:12:35 508411.678\\S\\4448 Weight Measurement 2020-11-28 00:12:35 Estimated by Method Patient 02 Sat by Pulse 2020-11-27 12:19:31 97 /min Oximetry Body Mass Index 2020-11-27 12:19:31 43.5 Height 2020-11-27 12:19:31 170.18\\S\\67 Pulse Rate 2020-11-27 12:19:31 69 /min Pulse Strength 2020-11-27 12:19:31 Normal /min Pulse Assessment 2020-11-27 12:19:31 Palpation /min Method Respiratory Rate 2020-11-27 12:19:31 15 /min Weight 2020-11-27 12:19:31 722056.678\\S\\4448 Weight Measurement 2020-11-27 12:19:31 Estimated by Method Patient Body Mass Index 2020-11-27 09:51:35 43.5 Height 2020-11-27 09:51:35 170.18\\S\\67 Weight 2020-11-27 09:51:35 678624.678\\S\\4448 Weight Measurement 2020-11-27 09:51:35 Estimated by Method Patient Height 2020-11-27 09:51:32 170.18\\S\\67 Weight Measurement 2020-11-27 09:51:32 Estimated by Staff Method Height 2020-11-27 09:51:22 170.18\\S\\67 Weight Measurement 2020-11-27 09:51:22 Estimated by Staff Method WEIGHT 2020-11-27 08:59:00 126.347238 kg HEIGHT 2020-11-27 08:59:00 170.18 cm HEIGHT 2020-11-27 08:32:00 170.18 cm Procedures Procedure Date / Time Performing Clinician Source Performed MR ANGIOGRAM HEAD WO 2022-06-01 13:28:03 [facility]/REFUSAL FOR 2022-05-13 13:34:42 Doctor Unassigned, [facility] DIAGNOSIS AND TREATMENT [facility] REFERRAL- 2022-04-13 05:01:00 Doctor Unassigned, [facility] REQUEST/RESPONSE [facility] AMYLASE 2020-08-13 16:37:00 Андрей Rosen [facility] LIPASE 2020-08-13 16:37:00 Андрей Rosen [facility] COMP. METABOLIC PANEL 2020-08-13 16:37:00 Андрей Rosen [facility] ([id number]) Medical Branch CBC WITH DIFF 2020-08-13 16:37:00 Андрей Rosen [facility] ASSIGNMENT OF BENEFITS 2020-08-13 16:17:47 Doctor Unassigned, [facility] Name Medical Branch US, duplex, carotid 2019-05-20 00:00:00 [facility] US, doppler, arterial 2019-05-14 00:00:00 [facility] REFERRAL- 2019-03-06 05:01:00 Doctor Unassigned, [facility] REQUEST/RESPONSE [facility] INSURANCE CORRESPONDENCE 2019-02-28 05:01:00 Doctor Unassnetta, [place] [facility] Name [facility] XR, wrist 2018-12-17 00:00:00 [facility] TYMPANOMETRY 2018-12-06 00:00:00 [facility] unlisted imaging order 2018-10-22 00:00:00 [facility] TYMPANOMETRY 2018-07-20 00:00:00 [facility] unlisted imaging order 2018-07-20 00:00:00 [facility] Exploration of Kidney 2017-11-30 00:00:00 [facility] Remove Tonsils and [facility] Ankle Arthroscopy/surgery [facility] Hysterectomy/revise [facility] Encounters Start End Encounter Admission Attending Care Care Encounter Source Date/Time Date/Time Type Type Clinicians Facility Department ID 2022-06-24 2022-06-24 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 09:00:00 09:15:00 Visit Yadiel [facility] 350.1.13.10 Km 4.2.7.2.686 Onofre as BALBIR?BLEA [id number] [place] cat [facility] OFFICE [facility] 2022-06-24 2022-06-24 Outpatient R SOTO [facility] [id number] Univers 08:30:00 08:43:03 SHAYY [facility] 2022-06-24 2022-06-24 [facility] 1.2.840.114 [id number] Univers 08:30:00 08:43:03 Visit Shayy [facility] [id number] it y of [place] 4.2.7.2.686 Onofre as BALBIR?BLEA [id number] [place] [facility] OFFICE [facility] 2022-06-01 2022-06-01 Outpatient R GIRISH HENDRIX [facility] [id number] Univers 07:36:54 23:59:00 GIRISH HENDRIX [facility] 2022-06-01 2022-06-01 [facility] [id number] Univers 07:36:54 23:59:00 Encounter Girish Irwin [place] [id number] ity [facility] 4.2.7.2.686 [place] [facility] [phone] [address] 2022-05-24 2022-05-24 Outpatient Justice JOSSEGIRISH MERINO [facility] [id number] Univers 09:26:23 23:59:00 JOSSEGIRISH Paulson [facility] 2022-05-13 2022-05-13 Outpatient Justice HERNANDEZKhurram GIRISH [facility] [id number] Univers 10:09:37 23:59:00 GIRISH HENDRIX [facility] 2022-05-13 2022-05-13 Rotary Machine Operator Lab, Ang - Db [facility] 1.2.840.1 [id number] Univers 10:00:00 10:15:00 Visit Girish Hendrix [facility] 350.1.13. 10 ity of [place] 4.2.7.2.686 [place]ofre as BALBIR?BLEA [id number] [place] evaristo[address] OFFICE [facility] 2022-05-13 2022-05-13 Office Josse [facility] 1.2.840.114 [id number] Univers 08:40:00 09:58:04 Visit [facility] 350.1.13.10 ity of [place] 4.2.7.2.686 Onofre as BALBIR?BLEA [id number] [address] MEDICAL OFFICE [facility] 2022-05-13 2022-05-13 Orders Doctor DARIO 1.2.840.114 [id number] Univers 00:00:00 00:00:00 Only Unassigned, JESS 350.1.13.10 ity of [place] [facility] 4.2.7.2.686 Onofre as [phone] [address] 2022-04-13 2022-04-13 Orders Doctor BISHOP 1.2.840.114 [id number] Univers 00:00:00 00:00:00 Only Unassigned, JESS 350.1.13.10 ity [facility] [place] [facility] 4.2.7.2.686 Onofre as [id number] [address] 2021-09-03 2021-09-03 Outpatient DESAI_RAKES [place] [id number] [facility] 12:08:00 12:08:00 H [facility] 2021-08-26 2021-08-26 Outpatient DESAI_RAKES [place] [id number] [facility] 01:46:00 01:46:00 H 0121 [facility] 2021-08-11 2021-08-11 Outpatient DESAI_RAKES [place] [id number] [facility] 02:25:00 02:25:00 H 0107 [facility] 2021-07-30 2021-07-30 Outpatient DESAI_RAKES [place] [id number] [facility] 06:44:00 06:44:00 H 1227 [facility] 2021-07-29 2021-07-29 Outpatient DESAI_RAKES [place] [id number] [facility] 01:39:00 01:39:00 H 1216 [facility] 2021-07-29 2021-07-29 Outpatient DESAI_RACHANTELL [facility] 720 [place] 01:39:00 01:39:00 H 1217 [facility] 2021-07-29 2021-07-29 Dario Demarco [facility] [place] - [id number] M atagor 00:00:00 00:00:00 Josiah KrishnaYD: 1700 Hinduism Epi scop [facility] al AveFormerly named [facility] [address] h , Ph. Program (979) --20072021-07-27 2021-07-27 Outpatient DESAI_RAKES [place] [id number] [facility] 04:57:00 04:57:00 H 1214 [facility] 2021-07-24 2021-07-24 Outpatient DESAI_RAKES [place] [id number] [facility] 10:24:00 10:24:00 H 1211 [facility] 2021-07-24 2021-07-24 Bakari Frye [facility] [place] - [id number] [place] 00:00:00 00:00:00 MD Sony: Josiah krishna 1700 Hinduism Episco p [facility] al eFormerly named [facility] [address] h , Ph. Program (979) --20072021-07-22 2021-07-22 Outpatient DESAI_RAKES [facility] 720 [place] 12:06:00 12:06:00 H 1209 [facility] 2021-07-02 2021-07-02 Outpatient DESAI_RAKES [facility] 720 [place] 06:35:00 06:35:00 H 1206 [facility] 2021-07-01 2021-07-01 Outpatient DESAI_RAKES [place] [id number] [facility] 04:17:00 04:17:00 H 1118 [facility] 2021-07-01 2021-07-01 Outpatient DESAI_RACHANTELL [facility] 720 [place] 04:17:00 04:17:00 H 1119 [facility] 2021-07-01 2021-07-01 Dario Demarco [facility] [place] - [id number] M atagor 00:00:00 00:00:00 Josiah KrishnaYD: 1700 Hinduism Epi scop [facility] al AveFormerly named [facility] [address] h , Ph. Program (979) --20072021-06-29 2021-06-29 Outpatient DESAI_RAKES [place] [id number] [place] 12:45:00 12:45:00 H 1116 [facility] 2021-06-26 2021-06-26 Outpatient DESAI_RAKES [place] [id number] [facility] 11:01:00 11:01:00 H 1113 [facility] 2021-06-26 2021-06-26 Bakari Frye [facility] [place] - [id number] [place] 00:00:00 00:00:00 MD Sony: Josiah krishna 1700 Hinduism Episco p [facility] al eFormerly named [facility] [address] h , Ph. Program (979) --20072021-06-24 2021-06-24 Outpatient DESAI_RAKES [place] [id number] [facility] 11:57:00 11:57:00 H 1111 [facility] 2021-05-21 2021-05-21 Outpatient DESAI_RAKES [facility] 720 [place] 07:27:00 07:27:00 H 1022 [facility] 2021-05-13 2021-05-13 Outpatient DESAI_RAKES [place] [id number] [facility] 11:08:00 11:08:00 H 0930 [facility] 2021-05-13 2021-05-13 Outpatient DESAI_RAKES [facility] 720 [place] 11:08:00 11:08:00 H 1008 [facility] 2021-05-13 2021-05-13 Jamila [facility] [place] - [id number] carolinegojustice 00:00:00 00:00:00 Neil carr, RESPIRATORY SUPPORT TECHNICIAN: Hinduism Episco p 1700 [facility] [address] Progr am , Ph. (905) --20072021-05-11 2021-05-11 Outpatient DESAI_RAKES [place] [id number] [place] 03:05:00 03:05:00 H 0928 [facility] 2021-04-30 2021-04-30 Outpatient DESAI_RAKES [place] [id number] [place] 12:59:00 12:59:00 H 0922 [facility] 2021-04-22 2021-04-22 Outpatient DESAI_RAKES [facility] 720 [place] 12:01:00 12:01:00 H 0917 [facility] 2021-04-20 2021-04-20 Outpatient DESAI_RAKES [facility] 720 [place] 09:42:00 09:42:00 H 0909 [facility] 2021-04-14 2021-04-14 Outpatient DESAI_RAKES [facility] 720 [place] 05:12:00 05:12:00 H 0901 [facility] 2021-04-14 2021-04-14 Outpatient DESAI_RAKES [facility] 720 [place] 05:12:00 05:12:00 H 0907 [facility] 2021-04-14 2021-04-14 Jamila [facility] [place] - [id number] Thelma velazquezgojustice 00:00:00 00:00:00 Neil carr, RESPIRATORY SUPPORT TECHNICIAN: Hinduism Episco p 1700 [facility] vitaly Delcid [facility] [address] [facility] am , Ph. (979) --20072021-04-12 2021-04-12 Outpatient DESAI_RAKES [facility] 720 [place] 01:08:00 01:08:00 H 0830 [facility] 2021-04-09 2021-04-09 Outpatient DESAI_RAKES [facility] 720 [place] 02:07:00 02:07:00 H 0827 [facility] 2021-04-09 2021-04-09 Jamila [facility] - [id number] atago 00:00:00 00:00:00 Neil carr, RESPIRATORY SUPPORT TECHNICIAN: Hinduism Episco p 1700 [facility] vitaly Delcid [facility] [address] [facility] am , Ph. (979) --20072021-04-07 2021-04-07 Outpatient DESAI_RAKES [place] [id number] [place] 01:39:00 01:39:00 H 0825 [facility] 2020-11-27 2020-11-27 Outpatient Elective Martha, [facility] [id number] [facility] 06:13:00 06:13:00 Gurvinder 67 2020-10-23 2020-10-23 Outpatient A_Byrd MMG MMG [id number] [place] 11:33:00 11:33:00 0312 [facility] 2020-08-26 2020-08-26 Outpatient Justice ROSEN [facility] [id number] Univers 00:00:00 00:00:00 АНДРЕЙ ch [facility] 2020-08-13 2020-08-13 [facility] 1.2.840.114 [id number] 10:23:40 23:59:00 Martinez Cummings 350.1.13.10 [place] 4.2.7.2.686 [place] [id number] 2020-08-13 2020-08-13 [facility] 1.2.840.114 [id number] Univers 10:23:40 23:59:00 Encounter Андрей Cummings 350.1.13.10 ity of [place] 4.2.7.2.686 [place] [id number] [facility] [address] [place] 2020-08-13 2020-08-13 Outpatient R [facility] [id number] Univers 10:23:40 23:59:00 [facility] ity [facility] 2020-08-13 2020-08-13 Rotary Machine Operator Carey, Ira [facility] 1.2.840.114 [id number] 10:22:14 10:37:14 Visit Lab Main [place] 350.1.13.10 [place] 4.2.7.2.686 Professio [id number] [address] 2020-08-13 2020-08-13 Rotary Machine Operator Ira Patino Lab Main [facility] 1.2.8 40.114 [id number] Univers 10:22:14 10:37:14 Visit Андрей Rosen 350.1.13.10 ity of [place] 4.2.7.2.686 [place] [facility] [phone] [place] dical [address] 2020-08-13 2020-08-13 Orders Doctor DARIO 1.2.840.114 [id number] Univers 00:00:00 00:00:00 Only Unassigned, JESS 350.1.13.10 ity of [place] [facility] 4.2.7.2.686 Onofre as [id number] [facility] [address] 2020-08-13 2020-08-13 Orders Doctor DARIO 1.2.840.114 [id number] 00:00:00 00:00:00 Only Unassigned, JESS 350.1.13.10 [place] [facility] 4.2.7.2.686 [id number] 2020-07-01 2020-07-01 [place] [id number] [place] 02:36:00 02:36:00 1118 [facility] 2020-06-19 2020-06-19 [facility] [id number] Univers 16:30:00 16:30:00 HILL ch [facility] 2020-06-09 2020-06-09 Outpatient A_Byarnulfo MMG MMG [id number] [place] 03:38:00 03:38:00 1027 [facility] 2020-05-11 2020-05-11 [facility] 1.2.840.114 [id number] Univers 00:00:00 00:00:00 Chadd Cummings 350.1.13.10 i ty of [place] 4.2.7.2.686 [place] Profess[place] [phone] [address] 2020-05-11 2020-05-11 Telephone [facility] 1.2.840.114 [id number] Univers 00:00:00 00:00:00 Hill Cummings 350.1.13.10 i ty of [place] 4.2.7.2.686 [place] Profess[place] [phone] [address] 2020-05-11 2020-05-11 Telephone [facility] 1.2.840.114 [id number] 00:00:00 00:00:00 Hill Cummings 350.1.13.10 [place] 4.2.7.2.686 Professio [phone] [address] 2020-05-09 2020-05-09 Outpatient DESAI[facility]RAKES [facility] 720 [place] 11:02:00 11:02:00 H 0926 [facility] 2020-04-04 2020-04-04 Outpatient DES[facility]RAKES [facility] 720 [place] 12:20:00 12:20:00 H 0822 [facility] 2020-02-29 2020-02-29 Outpatient DESAI_RAKES [facility] 720 [place] 12:24:00 12:24:00 H 0718 [facility] 2020-02-13 2020-02-13 [facility] 1..569.180 [id number] Univers 00:00:00 00:00:00 Hill Cummings 350.1.13.10 i ty of [place] 4.2.7.2.686 [place] Profess[place] [phone] [place] dic[address] 2020-01-24 2020-01-24 Outpatient R [facility] [id number] Univers 09:00:00 09:00:00 HILL ch [facility] 2019-12-25 2019-12-25 Gregg Rey [facility] [place] 00:00:00 00:00:00 MD Calixto: [address] - [facility] 201, [facility] [place] [address] , Ph. 2019-12-16 2019-12-16 [facility] ..[id number] Univers 00:00:00 00:00:00 Hill Cummings 350.1.13.10 i ty of [place] 4.2.7.2.686 [place] Profess[place] [phone] [address] 2019-11-28 2019-11-28 Gregg Rey [facility] [place] 00:00:00 00:00:00 MD Calixto: [address] - [facility] 201, [facility] [place] [address] , Ph. 2019-11-19 2019-11-19 Gregg Rey [facility] [place] 00:00:00 00:00:00 MD Calixto: [address] - [facility] 201, [facility] [place] [address] , Ph. 2019-11-15 2019-11-15 [facility] [id number] Univers 00:00:00 00:00:00 Hill Cummings [id number] i [phone] [address] [facility] 2019-09-26 2019-09-26 Gregg Lara Krissy [facility] [place] - [phone] [place] 00:00:00 00:00:00 MD Calixto: [address] - [facility] 201, [facility] [place] [address] , Ph. 2019-08-01 2019-08-01 Outpatient Krissy [facility] [id number] [place] 11:38:00 11:38:[address] [place] [address] 2019-07-26 2019-07-26 Gregg [place] [facility] [place] - [id number] [place] 00:00:00 00:00:00 MD Calixto: [address] [address], [facility] [place] [address] , Ph. 2019-05-23 2019-05-23 [place] [facility] [place] - [id number] [place] 00:00:00 00:00:00 MD Cherelle: [address], [facility] [place], [place] [address] , Ph. 2019-05-14 2019-05-14 Gregg [place] [facility] [place] - [id number] [place] 00:00:00 00:00:00 MD Calixto: [address], [facility] [place] [address] , Ph. 2019-04-02 2019-04-02 DARLENE Rodriguez [id number] 00:00:00 00:00:00 Chadd Cummings [id number] i [phone] [place] 220 [facility] 2019-03-06 2019-03-06 Orders Doctor DARIO [id number] Univers 00:00:00 00:00:00 Only Unassigned, JESS [id number] ity [facility] [place] [facility] [id number] Onofre as [id number] [address] 2019-02-28 2019-02-28 Orders Doctor DARIO [id number] 00:00:00 00:00:00 Only Unassigned, JESS 350.1.13.10 [facility] [place] [facility] 4.2.7.2.686 Onofre as [phone] [address] 2019-02-28 2019-02-28 [place] - [address] [place] 00:00:00 00:00:00 MD Calixto: [address], [facility] [place] [address] , Ph. 2019-02-20 2019-02-20 [place] - [phone] [place] 00:00:00 00:00:00 MD Cherelle: [address], [facility] [address] , Ph. 2019-02-19 2019-02-19 [place] - [address] [place] 00:00:00 00:00:00 MD Calixto: [address], [facility] [place] [address] , Ph. 2019-01-24 2019-01-24 [place] - [phone] [place] 00:00:00 00:00:00 MD Cherelle: [address], [facility] [address] , Ph. 2018-12-27 2018-12-27 Paljose [place]ard[place] [facility] [place] - [phone] [place] 00:00:00 00:00:00 MD Cherelle: 0516 [address] [facility], [place] [address], [facility] [place] [place] [address] , Ph. 2018-12-17 2018-12-17 [place] - [address] [place] 00:00:00 00:00:00 MD Calixto: 0506 [address] [facility], [place] [address], [facility] [place] [address] , Ph. 2018-12-06 2018-12-06 [place] - [phone] [place] 00:00:00 00:00:00 MD Cherelle: 0425 [address] [facility], [place] - [address], [facility] [place] [address] , Ph. 2018-10-22 2018-10-22 [place] - [address] [place] 00:00:00 00:00:00 MD Calixto: 0311 [address] [facility], [place] [address], [facility] [place] [address] , Ph. 2018-08-27 2018-08-27 [place] - [address] [place] 00:00:00 00:00:00 MD Calixto: [address], [place] - [address], [facility] [place] [address] , Ph. 2018-08-06 2018-08-06 [place] - [address] [place] 00:00:00 00:00:00 MD Calixto: 1224 [address] [facility], [place] [address], [facility] [place] [address] , Ph. 2018-07-30 2018-07-30 [place] - [phone] [place] 00:00:00 00:00:00 MD Cherelle: [address], [facility] [address], [facility] [place] [place] [address] , Ph. 2018-07-20 2018-07-20 [place] - [phone] [place] 00:00:00 00:00:00 MD Cherelle: [address], [facility], [facility], [place] [address] , Ph. Results Test Description Test Time Test Comments Results Result Comments Source LIPASE 2020-08-13 17:12:00 Test Item Value Reference Range Interpretation Comme nts LIPASE (test code = 6552288937) 122 U/L 0-220 Lab Interpretation (test code = 69233-1) [facility]71235[facility]2020-08-13 17:12:00 Test Item Value Reference Range Interpretation Comments NA (test code = 136 mmol/L 135-145 1950988296) K (test code = 4.3 mmol/L 3.5-5 0234519706) CL (test code = 100 mmol/L 98-108 3235566020) CO2 TOTAL (test code = 29 mmol/L 23-31 9520474454) AGAP (test code = 2-16 5004010927) BUN (test code = 18 mg/dL 7-23 2264828446) GLUCOSE (test code = 194 mg/dL 70-110 H 2352642810) CREATININE (test code = 1.01 mg/dL 0.5-1.04 5117504338) TOTAL BILI (test code = 0.6 mg/dL 0.1-1.5 0391796056) CALCIUM (test code = 9.9 mg/dL 8.6-10.6 7544949707) T PROTEIN (test code = 6.8 g/dL 6.3-8.2 0140982203) ALBUMIN (test code = 4.2 g/dL 3.5-5 9010738146) ALK PHOS (test code = 67 U/L 34-122 9403271994) ALTv (test code = 44 U/L 5-35 H 1742-6) AST(SGOT) (test code = 36 U/L 13-40 2442281469) eGFR Calculation mL/min/1.73m2 (Non-) (test code = 6673680193) eGFR Calculation mL/min/1.73m2 () (test code = 6591398335) ANA (test code = ANA) Association of [...] tests). Lab Interpretation Abnormal (test code = 99169-8) [facility] 17:11:00 Test Item Value Reference Range Interpretation Comments CHRISTY (test code = 9846867745) 45 U/L 35-110 Lab Interpretation (test code = Normal 56894-6) [facility] WITH [id number] 16:45:00 Test Item Value Reference Range Interpretation [...] RDW-SD (test code = 42.6 fL 39-49.9 70528-5) RDW-CV (test code = 13.3 % 12-15.5 788-0) PLT (test code = See_Comment [Automated 777-3) message] The sy stem which generated this result transmitted reference range : 166 - 358 10*3/ ?L. The reference r morro was not used to interpret this result as normal/abnormal . MPV (test code = 8.8 fL 9.5-12.9 L 28656-5) NRBC/100 WBC (test See_Comment [Automat ed code = 6139209003) message] The system which generated this result transmitted reference range : 0.0 - 10.0 /100 WBCs. The refer ence range was not u sed to interpret th is result as normal/abnormal . NRBC x10^3 (test code <0.01 See_Comment [Auto mated = 6651510942) message] The s ystem which generated this result transmitted reference range : 10*3/?L. The reference range was not used to interpret this result as normal/abnormal . GRAN MAT (NEUT) % 61.7 % (test code = 770-8) IMM GRAN % (test code 0.50 % = 2848878910) LYMPH % (test code = 27.6 % 736-9) MONO % (test code = 7.1 % 5905-5) EOS % (test code = 2.6 % 713-8) BASO % (test code = 0.5 % 706-2) GRAN MAT x10^3(ANC) 5.90 10*3/uL 1.88-7.09 (test code = 0442499332) IMM GRAN x10^3 (test 0.05 10*3/uL 0-0.06 code = 7153676461) LYMPH x10^3 (test code 2.64 10*3/uL 1.32-3.29 = 731-0) MONO x10^3 (test code 0.68 10*3/uL 0.33-0.92 = 742-7) EOS x10^3 (test code = 0.25 10*3/uL 0.03-0.39 711-2) BASO x10^3 (test code 0.05 10*3/uL 0.01-0.07 = 704-7) Lab Interpretation Abnormal (test code = 37406-8) [facility] [id number] 08:11:00 Study ReportMaSharkey [facility] Hospitalurgical [facility] [id number] 08:11:00 [facility] ReportWay[facility] Hospitalurgical [facility] [id number] 08:11:00 [facility] Differential panel - Blood 2019-02-04 [...] fL 78-98 [Entitic volume] (test code = 96351-8) Erythrocyte mean corpuscular 27.9 pg 26.2-33.4 hemoglobin [Entitic mass] (test code = 61417-8) mean corpuscular HGB conc (test 31.8 g/dL 31.5-36.2 code = mean corpuscular HGB conc) red cell distribution width (test 13.5 % 11.5-15.5 code = red cell distribution width) Platelets [#/volume] in Blood (test 282 K/uL 137-338 code = 08055-9) Platelet mean volume [Entitic 5.8 fL 8.4-11.8 L volume] in Blood (test code = 87338-2) Neutrophils.band form/100 64.4 % 44.4-80.1 leukocytes in Blood (test code = 37928-0) Lymphocytes/100 leukocytes in Body 24.8 % 10.0-50.0 fluid (test code = 73584-9) Monocytes/100 leukocytes in Blood 7.2 % 3.6-12.0 by Automated count (test code = 5905-5) Eosinophils/100 leukocytes in Blood 2.0 % 0.0-5.4 by Automated count (test code = 713-8) Basophils/100 leukocytes in 1.6 % 0.0-0.79 H Unspecified specimen (test code = 17085-7) [id number] 12:55:00 Test Item Value Reference Range Interpretation Comments prothrombin time (test code = 10.1 seconds 10.3-12.3 L prothrombin time) INR in Blood by Coagulation 0.92 assay (test code = 50743-7) [facility] [id number] 12:55:00 Test Item Value Reference Range Interpretation Comments INR in Blood by Coagulation 28.2 seconds 22.5-37.0 assay (test code = 17435-6) [facility] 2000 panel - Serum or Czkpcz5286-23-18 12:55:00 Test Item Value Reference Range Interpretation [...] code = calcium 10.0 mg/dL 8.6-10.0 level) [facility] W Auto Differential panel - [id number] 12:55:00 Test Item Value Reference Range Interpretation Comments white blood count (test code = 11.0 K/uL 4.0-11.5 white blood count) red blood count (test code = red 5.16 M/uL 3.80-5.20 blood count) Hemoglobin [Mass/volume] in Blood 14.4 g/dL 10.5-15.7 (test code = 718-7) hematocrit (test code = hematocrit) 45.2 % 34.0-50.0 Erythrocyte mean corpuscular volume 87.6 fL 78-98 [Entitic volume] (test code = 45441-5) Erythrocyte mean corpuscular 27.9 pg 26.2-33.4 hemoglobin [Entitic mass] (test code = 90941-9) mean corpuscular HGB conc (test 31.8 g/dL 31.5-36.2 code = mean corpuscular HGB conc) red cell distribution width (test 13.5 % 11.5-15.5 code = red cell distribution width) Platelets [#/volume] in Blood (test 282 K/uL 137-338 code = 68959-6) Platelet mean volume [Entitic 5.8 fL 8.4-11.8 L volume] in Blood (test code = 70523-3) Neutrophils.band form/100 64.4 % 44.4-80.1 leukocytes in Blood (test code = 52697-4) Lymphocytes/100 leukocytes in Body 24.8 % 10.0-50.0 fluid (test code = 51104-6) Monocytes/100 leukocytes in Blood 7.2 % 3.6-12.0 by Automated count (test code = 5905-5) Eosinophils/100 leukocytes in Blood 2.0 % 0.0-5.4 by Automated count (test code = 713-8) Basophils/100 leukocytes in 1.6 % 0.0-0.79 H Unspecified specimen (test code = 65756-9) [facility]/[id number] 12:55:00 Test Item Value Reference Range Interpretation Comments prothrombin time (test code = 10.1 seconds 10.3-12.3 L prothrombin time) INR in Blood by Coagulation 0.92 assay (test code = 51416-7) [facility] [id number] 12:55:00 Test Item Value Reference Range Interpretation Comments INR in Blood by Coagulation 28.2 seconds 22.5-37.0 assay (test code = 18801-3) [facility] HospitalBasi metabolic 2000 panel - Serum or Bndlcu6087-06-21 12:55:00 Test Item Value Reference Range Interpretation [...] code = calcium 10.0 mg/dL 8.6-10.0 level) [facility] W Auto Differential panel - [id number] 12:55:00 Test Item Value Reference Range Interpretation Comments white blood count (test code = 11.0 K/uL 4.0-11.5 white blood count) red blood count (test code = red 5.16 M/uL 3.80-5.20 blood count) Hemoglobin [Mass/volume] in Blood 14.4 g/dL 10.5-15.7 (test code = 718-7) hematocrit (test code = hematocrit) 45.2 % 34.0-50.0 Erythrocyte mean corpuscular volume 87.6 fL 78-98 [Entitic volume] (test code = 92730-1) Erythrocyte mean corpuscular 27.9 pg 26.2-33.4 hemoglobin [Entitic mass] (test code = 49304-6) mean corpuscular HGB conc (test 31.8 g/dL 31.5-36.2 code = mean corpuscular HGB conc) red cell distribution width (test 13.5 % 11.5-15.5 code = red cell distribution width) Platelets [#/volume] in Blood (test 282 K/uL 137-338 code = 63375-4) Platelet mean volume [Entitic 5.8 fL 8.4-11.8 L volume] in Blood (test code = 47915-7) Neutrophils.band form/100 64.4 % 44.4-80.1 leukocytes in Blood (test code = 49588-6) Lymphocytes/100 leukocytes in Body 24.8 % 10.0-50.0 fluid (test code = 64628-9) Monocytes/100 leukocytes in Blood 7.2 % 3.6-12.0 by Automated count (test code = 5905-5) Eosinophils/100 leukocytes in Blood 2.0 % 0.0-5.4 by Automated count (test code = 713-8) Basophils/100 leukocytes in 1.6 % 0.0-0.79 H Unspecified specimen (test code = 31536-9) [facility]PT/[id number] 12:55:00 Test Item Value Reference Range Interpretation Comments prothrombin time (test code = 10.1 seconds 10.3-12.3 L prothrombin time) INR in Blood by Coagulation 0.92 assay (test code = 37815-7) [facility] [id number] 12:55:00 Test Item Value Reference Range Interpretation Comments INR in Blood by Coagulation 28.2 seconds 22.5-37.0 assay (test code = 65240-0) [facility] metabolic 2000 panel - Serum or Gfihnu9368-27-56 12:55:00 Test Item Value Reference Range Interpretation [...] code = calcium 10.0 mg/dL 8.6-10.0 level) [facility] metabolic 2000 panel - Serum or [id number] 12:51:00 Test Item Value Reference Range Interpretation [...] code = calcium 9.8 mg/dL 8.6-10.0 level) [facility]2019-04-25 09:27:00 Test Item Value Reference Range Interpretation Comments Right (test code = Right) Type A Normal Left (test code = Left) Type A Normal [facility] HospitalLxmmuysvgvuhaxzr9011-34-07 09:27:00 Test Item Value Reference Range Interpretation Comments Right (test code = Right) Type A Normal Left (test code = Left) Type A Normal [facility] HospitalUrinalysis complete W Reflex Culture panel - Urine 2018-08-06 07:50:00 Test Item Value Reference Range Interpretation Comments Color of Urine by Auto (test light yellow code = 63847-2) Appearance of Urine (test code clear clear = 5767-9) Glucose [Presence] in Urine by =2+ (150 negative H Automated test strip (test code = 41814-5) Bilirubin.total [Mass/volume] negative negative in Urine (test code = 1977-6) Ketones [Mass/volume] in Urine trace negative by Automated test strip (test code = 81827-1) Specific gravity of Urine by 1.010 1.003-1.030 Automated test strip (test code = 16440-8) blood urine (test code = blood negative negative urine) pH of Urine (test code = 5.000 5-9 2756-5) protein urine (UA) (test code = negative negative protein urine (UA)) Urobilinogen [Presence] in normal 0.2-1.0 Urine (test code = 80876-5) Nitrite [Presence] in Urine by negative negative Test strip (test code = 5802-4) Leukocyte esterase [Presence] negative negative in Urine by Automated test strip (test code = 06350-6) Erythrocytes [#/volume] in <1 0-5 Urine by Automated count (test code = 798-9) Leukocytes [#/area] in Urine <1 0-5 sediment by Automated count (test code = 73659-4) Epithelial cells [Presence] in =1-5 0-5 Urine sediment by Light microscopy (test code = 26283-7) Bacteria identified in Urine by none detected none detect Culture (test code = 630-4) Casts [#/area] in Urine none detected none detect sediment by Automated count (test code = 15314-4) urine culture added? (test code no = urine culture added?) [facility] W Auto Differential panel - Kikoe9864-11-31 12:04:00 Test Item Value Reference Range Interpretation Comments white blood count (test code = 9.9 K/uL 4.0-11.5 white blood count) red blood count (test code = red 5.20 M/uL 3.80-5.20 blood count) Hemoglobin [Mass/volume] in Blood 15.4 g/dL 10.5-15.7 (test code = 718-7) hematocrit (test code = hematocrit) 46.4 % 34.0-50.0 Erythrocyte mean corpuscular volume 89.4 fL 78-98 [Entitic volume] (test code = 91813-1) Erythrocyte mean corpuscular 29.6 pg 26.2-33.4 hemoglobin [Entitic mass] (test code = 17479-6) mean corpuscular HGB conc (test 33.1 g/dL 31.5-36.2 code = mean corpuscular HGB conc) red cell distribution width (test 12.7 % 11.5-15.5 code = red cell distribution width) Platelets [#/volume] in Blood (test 242 K/uL 137-338 code = 00176-2) Platelet mean volume [Entitic 6.5 fL 8.4-11.8 L volume] in Blood (test code = 87469-4) Neutrophils.band form/100 59.1 % 44.4-80.1 leukocytes in Blood (test code = 66553-8) Lymphocytes/100 leukocytes in Body 31.3 % 10.0-50.0 fluid (test code = 99665-7) Monocytes/100 leukocytes in Blood 5.7 % 3.6-12.04 by Automated count (test code = 5905-5) Eosinophils/100 leukocytes in Blood 2.8 % 0.0-5.41 by Automated count (test code = 713-8) Basophils/100 leukocytes in Blood 1.2 % 0.0-0.79 H by Automated count (test code = 706-2) [facility] Hospitaldifferential panel, [id number] 12:04:00 NeutrophilsBandLymphocyteAtypical LymphMonocyteEosinophilBasophilPlatelet EstimatePlatelet MorphologyHypochromasiaAnisocytosisMicrocytosisRouleauYalobusha General HospitalBasic metabolic 2000 panel - Serum or [id number] 12:04:00 Test Item Value Reference Range Interpretation [...] code = calcium 9.7 mg/dL 8.6-10.0 level) [facility]PT/[id number] 12:04:00 Test Item Value Reference Range Interpretation Comments prothrombin time (test code = 9.9 seconds 10.3-12.3 L prothrombin time) INR in Blood by Coagulation assay 0.90 (test code = 43821-0) [facility] [id number] 12:04:00 Test Item Value Reference Range Interpretation Comments INR in Blood by Coagulation 27.0 seconds 22.5-37.0 assay (test code = 43782-3) [facility] HospitalOvbqmtcmlclgunly3019-50-40 10:00:34 Test Item Value Reference Range Interpretation Comments Right (test code = Right) Type A Normal Left (test code = Left) Type A Normal [facility] HospitalQjvnvfvgmlfdhykq8685-02-96 10:00:34 Test Item Value Reference Range Interpretation Comments Right (test code = Right) Type A Normal Left (test code = Left) Type A Normal [facility] HospitalTISSUE [id number] 08:52:00Surgical Pathology Report Case: [id number] Authorizing Provider: Manuel Escalera MD Collected: 11/12 1025 Ordering Location: [facility] Received: 11/30/2017 1255 SERVICES Pathologist: Tony Vallejo MD Specimen: Kidney, Left PART A KIDNEY, LEFT, NEPHRECTOMY (1076 GRAMS):CHRONIC AND ACUTE PYELONEPHRITIS.NO EVIDENCE OF MALIGNANCYFOUR BENIGN LYMPH NODES 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 Signing Pathologist Direct Phone Line: [phone] signed by Tony Vallejo MD on 12/07/2017 at 8:52 AMTwo of the lymph nodes show tubular structures lined by pseudo-stratified epithelium and no stroma. No atypia or mitosis identified.These structures are positive for CK7, PAX-8 and ER and negative for CDX-2 and CK20 compatible with e ndosalpingiosis (performed on block A20; CK7, CK20, and PAX8 repeated on A21). Proliferative index for Ki-67 performed on blocks A20 and A21 demonstrate less than 5% positivity within the areas of endosalpingiosis. Selected slides were reviewed with Dr. 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 01857, 15059, 03815K7, 89158Ixwljry of left kidney, chronic infection Left kidney Received fresh labeled "kidney, left" is a 1,076 gm, 22.0 x 14.0 x 7.0 cm, left simple nephrectomy specimen with attached surrounding perinephric adipose tissue. The kidney itself measures 15.0 x 7.0 x 4.0cm. A ureter is not identified. The adrenal [...] 4.5 cm in greatest dimension. Section code: A1,parallel vascular and possible ureteral resection margins; A2, area of dense insertion; A3-A8, outside sales representative insurance sections of area of dense adhesions at possible UPJ; A9- A16, outside sales representative insurance sections of pelvis and caliceal system; A17-A18, outside sales representative insurance sections of renal parenchyma; A19-A21, one bisected lymph node in each cut surface; A22-A28, one serially sectioned lymph node. DB/ewPerformed.The following special studies were performed on this case and the interpretation is incorporated in the diagnostic report above:BLOCK A20- CK7, CK20, PAX8, ER, KI-67BLOCK A21- CK7, CK20, PAX8, KI-67The immunohistochemistry test was developed and its performance characteristics determined by [facility], Pathology Laboratory. It has not been cleared or approved by the U.S. Food and Drug Administration. The FDA has determined that such clearance or approval is not necessary. The test is used forclinical purposes. It should not be regarded as investigational or for research. This laboratory is certified under the Clinical Laboratory Improvement Amendments of 1988 (CLIA- 88) as qualified to perform high complexity clinical laboratory testing.BLOOD [id number] 06:00:00 Test Item Value Reference Range Interpretation Comments CULTURE (BEAKER) (test No growth in 5 days code = 1095) POCT-GLUCOSE [id number] 07:56:00 Test Item Value Reference Range Interpretation Comments POC-GLUCOSE METER 287 mg/dL 70-110 H TESTED AT [facility] 6720 (BEAKER) (test code = [place] 1538) [address] BASIC METABOLIC [id number] 07:51:00 Test Item Value Reference Range Interpretation [...] PATIEN TS. CBC W/PLT COUNT & AUTO [id number] 05:57:00 Test Item Value Reference Range Interpretation [...] PERCENT (BEAKER) (test code = 2801) POCT-GLUCOSE [id number] 21:03:00 Test Item Value Reference Range Interpretation Comments POC-GLUCOSE METER 166 mg/dL 70-110 H TESTED AT [facility] 6720 (BEAKER) (test code = [place] 1538) [address] POCT-GLUCOSE [id number] 18:19:00 Test Item Value Reference Range Interpretation Comments POC-GLUCOSE METER 199 mg/dL 70-110 H TESTED AT [facility] 6720 (BEAKER) (test code = SYDNEE Rendon [place] 1538) [address] POCT-GLUCOSE [id number] 12:08:00 Test Item Value Reference Range Interpretation Comments POC-GLUCOSE METER 160 mg/dL 70-110 H TESTED AT [facility] 6720 (BEAKER) (test code = SYDNEE [place] 1538) [address] POCT-GLUCOSE [id number] 09:10:00 Test Item Value Reference Range Interpretation Comments POC-GLUCOSE METER 170 mg/dL 70-110 H TESTED AT [facility] 6720 (BEAKER) (test code = SYDNEE [place] 1538) [address] BASIC METABOLIC [id number] 07:03:00 Test Item Value Reference Range Interpretation [...] PATIEN TS. CBC W/PLT COUNT & AUTO [id number] 06:26:00 Test Item Value Reference Range Interpretation [...] PERCENT (BEAKER) (test code = 2801) POCT-GLUCOSE [id number] 20:55:00 Test Item Value Reference Range Interpretation Comments POC-GLUCOSE METER 219 mg/dL 70-110 H TESTED AT [facility] 6720 (BEAKER) (test code = SYDNEE [place] 1538) [address] BASIC METABOLIC [id number] 13:42:00 Test Item Value Reference Range Interpretation [...] APPLICABLE FOR DIALYSIS PATIEN TS. HEMOGLOBIN AND [id number] 13:15:00 Test Item Value Reference Range Interpretation Comments HEMOGLOBIN (BEAKER) (test code = 10.8 GM/DL 11.2-15.7 L 410) HEMATOCRIT (BEAKER) (test code = 34.0 % 34.1-44.9 L 411) URINE [id number] 10:10:00 Test Item Value Reference Range Interpretation Comments CULTURE (BEAKER) See comment A 70-79,000 c ol/mL (test code = 1095) Raheel a lbicans CALCIUM, [id number] 10:01:00 Test Item Value Reference Range Interpretation Comments CALCIUM IONIZED (BEAKER) (test 1.09 mmol/L 1.12-1.27 L code = 698) PH, BLOOD (BEAKER) (test code = 7.38 1810) BLOOD GAS, [id number] 10:01:00 Test Item Value Reference Range Interpretation [...] code = 1819) 100.0 % SODIUM NA-STAT [id number] 10:01:00 Test Item Value Reference Range Interpretation Comments SODIUM (BEAKER) (test code = 381) 134 meq/L 135-148 L GLUCOSE-STAT [id number] 10:01:00 Test Item Value Reference Range Interpretation Comments GLUCOSE RANDOM (BEAKER) (test code 192 mg/dL 70-110 H = 652) HGB/HCT (H&H) - STAT [id number] 10:01:00 Test Item Value Reference Range Interpretation Comments HEMOGLOBIN (BEAKER) (test code = 11.7 g/dL 12.0-15.0 L 410) HEMATOCRIT (BEAKER) (test code = 34.0 % 36.0-45.0 L 411) POTASSIUM-STAT [id number] 09:56:00 Test Item Value Reference Range Interpretation Comments POTASSIUM (BEAKER) (test code = 4.0 meq/L 3.6-5.5 379) LACTIC ACID, VENOUS, WHOLE [id number] 06:39:00 Test Item Value Reference Range Interpretation Comments LACTATE BLOOD VENOUS 0.7 mmol/L 0.5-2.2 Specime n slightly (2) (BEAKER) (test hemolyzed code = 2872) Effective 12/16/2015: Units/Reference Range ChangeNew: 0.5-2.2 mmol/L Previous: 5- 20 mg/[id number] 06:36:00 Test Item Value Reference Range Interpretation Comments PHOSPHORUS (BEAKER) (test code = 3.7 mg/dL 2.3-4.7 604) [id number] 06:36:00 Test Item Value Reference Range Interpretation Comments MAGNESIUM (BEAKER) (test code = 1.6 mg/dL 1.6-2.6 627) BASIC METABOLIC [id number] 06:36:00 Test Item Value Reference Range Interpretation [...] mg/dL 8.4-10.2 (test code = 697) [facility] (test 61 mL/min/1.73 ESTIMA PIERRE GFR IS code = 1092) sq m NOT ACCURATE CREATININE CLEARANCE IN PREDICTING GLOMERULAR FILTRATION RATE . ESTIMATED GFR I S NOT APPLICABLE FOR DIALYSIS PATIEN TS. POCT-GLUCOSE [id number] 21:05:00 Test Item Value Reference Range Interpretation Comments POC-GLUCOSE METER 215 mg/dL 70-110 H TESTED AT [place] [address] ([facility]) (test code = [facility] 1538) [address] POCT-GLUCOSE [id number] 17:48:00 Test Item Value Reference Range Interpretation Comments POC-GLUCOSE METER 150 mg/dL 70-110 H TESTED AT [place] [address] ([facility]) (test code = [facility] 1538) [address] POCT-GLUCOSE [id number] 12:00:00 Test Item Value Reference Range Interpretation Comments POC-GLUCOSE METER 204 mg/dL 70-110 H TESTED AT [place] [address] ([facility]) (test code = [facility] 1538) [address] URINE [id number] 08:15:00 Test Item Value Reference Range Interpretation Comments CULTURE ([facility]) (test 40-49,000 col/mL skin code = 1095) mckenna POCT-GLUCOSE [id number] 07:41:00 Test Item Value Reference Range Interpretation Comments POC-GLUCOSE METER 154 mg/dL 70-110 H TESTED AT [place] [address] ([facility]) (test code = [facility] 1538) [address] [id number] 04:29:00 Test Item Value Reference Range Interpretation Comments PHOSPHORUS (BEAKER) (test code = 3.2 mg/dL 2.3-4.7 604) [id number] 04:29:00 Test Item Value Reference Range Interpretation Comments MAGNESIUM (BEAKER) (test code = 1.6 mg/dL 1.6-2.6 627) BASIC METABOLIC [id number] 04:29:00 Test Item Value Reference Range Interpretation [...] DIALYSIS PATIEN TS. LACTIC ACID, VENOUS, WHOLE [id number] 04:27:00 Test Item Value Reference Range Interpretation Comments LACTATE BLOOD VENOUS (2) (BEAKER) 0.7 mmol/L 0.5-2.2 (test code = 2872) Effective 12/16/2015: Units/Reference Range ChangeNew: 0.5-2.2 mmol/L Previous: 5- 20 mg/dLCBC W/PLT COUNT & AUTO [id number] 04:11:00 Test Item Value Reference Range Interpretation [...] PERCENT (BEAKER) (test code = 2801) POCT-GLUCOSE [id number] 22:31:00 Test Item Value Reference Range Interpretation Comments POC-GLUCOSE METER 206 mg/dL 70-110 H TESTED AT [facility] 6720 (BEAKER) (test code = SYDNEE ANDRE 1538) [address] POCT-GLUCOSE [id number] 17:31:00 Test Item Value Reference Range Interpretation Comments POC-GLUCOSE METER 207 mg/dL 70-110 H TESTED AT [facility] 6720 ([place]) (test code = SY[place]EE [place] Antonia8) [address] ANG, NEPHROSTOMY, PERC, EXTERNAL [id number] 14:49:00Reason for exam:- >Needs left nephrostomy tube. Please obtain left kidney urine culture upon insertion of nephrostomy tube.FINAL REPORT Percutaneous Nephrostomy: Pertinent clinical information: Urinary tract infectionComparison: No comparisonModality: Sonography and fluoroscopy, seven images were submitted for interpretation. Conscious Sedation: First said 1 mg and fentanyl 75 mcg intravenouslyDuring the procedure with conscious sedation, the patient was monitored continuously with pulse oximetry andelectrocardiography by the attending physician and registered nurse. Patient/Physician face to face i ntraservice time: 30 minutes Anesthesia: Two percent Lidocaine injected subcutaneously at the insertion site.Approach: Left flank Labs sent: Culture and sensitivity as requested Antibiotics: The patient is currently on Levaquin and vancomycinFor maximum sterile barrier protection a mask, cap, sterile gloves, sterile drape, sterile gown, and a cutaneous antiseptic was utilized.Fluoro time in minutes: 2.2 minutes. Total dose 63.7 mG. Seven images Technique: After informed written consent was obtained,the patient was prepped and draped in the usual sterile manner. Access was obtained using sonographic guidance. A 21-gauge Chiba needle was advanced into the upper collecting system. Subsequently, a wir e was advanced through the needle. The tract was dilated to 8 Hebrew. A small bore catheter was advanced into [...] Esquivel Verified Date/Time: 11/28/2017 14:49:28 Reading Location: [address] Body Reading Room POCT- GLUCOSE [id number] 11:01:00 Test Item Value Reference Range Interpretation Comments POC-GLUCOSE METER 195 mg/dL 70-110 H TESTED AT [facility] 6720 ([place]) (test code = [place]EE [place] 1538) [address] POCT-LACTIC ACID, [id number] 04:41:00 Test Item Value Reference Range Interpretation Comments POC-LACTIC ACID, 1.2 mmol/L 0.9-1.7 TESTED AT [facility] 6720 VENOUS ([place]) (test SYDNEE [place]ERE[place] code = 2805) [address] LEGIONELLA ANTIGEN, [id number] 04:06:00 Test Item Value Reference Range Interpretation Comments L. PNEUMOPHILA Negative - see Negative fo r L. SEROGP 1 UR AG comment pneumophila ([place]) (test code serogrou p 1 antigen, = 1156) suggesting no r ecent or current infe ction with this serog roup. Legionellosis c annot be ruled out si nce other serogroup s and species may cau se disease. STREP PNEUMONIAE [id number] 04:04:00 Test Item Value Reference Range Interpretation [...] below the detection limit of the test.PROTHROMBIN [id number] 02:58:00 Test Item Value Reference Range Interpretation Comments PROTIME ([place]) (test code = 14.1 seconds 11.7-14.7 759) INR (ARRON) (test code = 370) 1.1 <=5.9 RECOMMENDED COUMADIN/WARFARIN INR THERAPY RANGESSTANDARD DOSE: 2.0 - 3.0 Includes: PROPHYLAXIS for venous thrombosis, systemic embolization; TREATMENT for venous thrombosis and/or pulmonary embolus.HIGH RISK: Target INR is 2.5-3.5 for patients with mechanical heart valves.[id number] 02:56:00 Test Item Value Reference Range Interpretation Comments PHOSPHORUS (BEAKER) (test code = 3.2 mg/dL 2.3-4.7 604) [id number] 02:56:00 Test Item Value Reference Range Interpretation Comments MAGNESIUM (BEAKER) (test code = 1.9 mg/dL 1.6-2.6 627) HEPATIC FUNCTION [id number] 02:56:00 Test Item Value Reference Range Interpretation [...] = 17 U/L 6-55 347) BASIC METABOLIC [id number] 02:30:00 Test Item Value Reference Range Interpretation [...] DIALYSIS PATIEN TS. LACTIC ACID, VENOUS, WHOLE [id number] 02:26:00 Test Item Value Reference Range Interpretation Comments LACTATE BLOOD VENOUS (2) (BEAKER) 1.3 mmol/L 0.5-2.2 (test code = 2872) Effective 12/16/2015: Units/Reference Range ChangeNew: 0.5-2.2 mmol/L Previous: 5- 20 mg/dLCBC W/PLT COUNT & AUTO [id number] 02:17:00 Test Item Value Reference Range Interpretation [...] (BEAKER) (test code = 2801) POCT-LACTIC ACID, [id number] 02:01:00 Test Item Value Reference Range Interpretation Comments POC-LACTIC ACID, 2.9 mmol/L 0.9-1.7 H TESTED AT [facility] 6720 VENOUS (BEAKER) (test SYDNEE PERE[place] code = 2805) [address] CT, [id number] 00:55:00Addendum BeginsREPORT STATUS:A Addendum: Benign as well as neoplastic processeswould be included in differential diagnosis for the left UPJ level obstruction. Results including the possibility of an infected obstructed left renal collecting system discussed with Dr. Singh. Signed: Sd Arellano MDReport Verified Date/Time: 11/28/2017 00:55:04 Reading Location: [address] Reading RoomAddendum EndsFINAL REPORT EXAMINATION: CT [...] prominent measuring 13 cm. The adrenal glands areunremarkable. There is mild dilatation of the right [...] in caliber. No evidence of an obstructing ureteralcalculus. Numerous lymph nodes are noted in the retroperitoneum, several enlarged including near theleft renal vein and along the left side [...] 13 cm. Signed: Sd Arellano MDReport Verified Date/Time: 11/28/2017 00:48:48 Reading Location: [address] Reading Room URINALYSIS W/ [id number] 00:09:00 Test Item Value Reference Range Interpretation [...] SOURCE(BEAKER) (test code Urine, Clean Catch = 1851) BLOOD [id number] 17:00:00 Test Item Value Reference Range Interpretation Comments CULTURE (BEAKER) (test No growth in 5 days code = 1095) BLOOD [id number] 15:30:00 Test Item Value Reference Range Interpretation Comments CULTURE (BEAKER) A From Aerobi c Bottle (test code = Only Coagulase 1095) negative Staphylococcus GRAM STAIN From aerobic RESULT (AKER) bottle only: (test code = gram positive 1123) cocci in clusters 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 Other organisms and resistance markers not contained in this PCR panel cannot be excluded and follow-up of traditional culture results is required. This sample was tested at the [facility] Clinical Microbiology Laboratory using the [employer] Blood Culture ID Panel. This test is FDA cleared for in vitro diagnostic use and has been verified and approved by the [facility] Clinical Microbiology laboratory for clinical use. Reference Range: Not DetectedBLOOD [id number] 23:00:00 Test Item Value Reference Range Interpretation Comments CULTURE ([facility]) (test No growth in 5 days code = 1095) MISCELLANEOUS LAB [id number] 14:42:00 Test Item Value Reference Range Interpretation Comments SCAN RESULT (test code = 0697100) Result comments: Coagulase Negative Staphylococcus Species (CoNS) DETECTED, Methicillin Resistant First line therapy: Vancomycin Coagulase Negative Staphylococcus (CoNS) DETECTED mecA DETECTED Possiblecontamination.The likelihood of pathogenicity is increased if the organism is observed in multiple blood cultures obtained from separate venipunctures. Other organisms and resistance markers not contained in this PCR panel cannot be excluded and follow-up of traditional culture results is required. This sample was tested at the [facility] Clinical Microbiology Laboratory using the [employer] Blood C ulture ID Panel. This test is FDA cleared for in vitro diagnostic use and has been verified and approved by the [facility] Clinical Microbiology laboratory for clinical use. Reference Range: Not DetectedPOCT-GLUCOSE [id number] 13:10:00 Test Item Value Reference Range Interpretation Comments POC-GLUCOSE METER 196 mg/dL 70-110 H TESTED AT [facility] 6720 ([facility]) (test code = SYDNEE Justice ANDRE 1538) [address] URINE [id number] 11:19:00 Test Item Value Reference Range Interpretation Comments CULTURE ([facility]) (test A >100, 000 col/mL Raheel code = 1095) albicans <10,000 col/mL skin floraPOCT-GLUCOSE [id number] 07:50:00 Test Item Value Reference Range Interpretation Comments POC-GLUCOSE METER 190 mg/dL 70-110 H TESTED AT [facility] 6720 (BEAKER) (test code = SY[place]EE [place] 1538) [address] [id number] 06:18:00 Test Item Value Reference Range Interpretation Comments PHOSPHORUS (BEAKER) (test code = 3.3 mg/dL 2.3-4.7 604) [id number] 06:18:00 Test Item Value Reference Range Interpretation Comments MAGNESIUM (BEAKER) (test code = 1.4 mg/dL 1.6-2.6 L 627) BASIC METABOLIC [id number] 06:18:00 Test Item Value Reference Range Interpretation [...] PATIEN TS. CBC W/PLT COUNT & AUTO [id number] 06:01:00 Test Item Value Reference Range Interpretation [...] PERCENT (BEAKER) (test code = 2801) POCT-GLUCOSE [id number] 21:08:00 Test Item Value Reference Range Interpretation Comments POC-GLUCOSE METER 157 mg/dL 70-110 H TESTED AT [facility] 6720 (BEAKER) (test code = SYDNEE ANDRE 1538) [address] POCT-GLUCOSE [id number] 11:59:00 Test Item Value Reference Range Interpretation Comments POC-GLUCOSE METER 151 mg/dL 70-110 H TESTED AT [facility] 6720 (BEAKER) (test code = [place] 1538) [address] CBC W/PLT COUNT & AUTO [id number] 11:31:00 Test Item Value Reference Range Interpretation [...] (BEAKER) (test code Normal = 762) POCT-GLUCOSE [id number] 07:43:00 Test Item Value Reference Range Interpretation Comments POC-GLUCOSE METER 151 mg/dL 70-110 H TESTED AT [facility] 6720 (BEAKER) (test code = SYDNEE Rendon [place] 1538) [address] BASIC METABOLIC [id number] 06:24:00 Test Item Value Reference Range Interpretation [...] S NOT APPLICABLE FOR DIALYSIS PATIEN TS. [id number] 06:23:00 Test Item Value Reference Range Interpretation Comments PHOSPHORUS (BEAKER) (test code = 3.5 mg/dL 2.3-4.7 604) [id number] 06:23:00 Test Item Value Reference Range Interpretation Comments MAGNESIUM (BEAKER) (test code = 1.7 mg/dL 1.6-2.6 627) POCT-GLUCOSE [id number] 21:50:00 Test Item Value Reference Range Interpretation Comments POC-GLUCOSE METER 205 mg/dL 70-110 H TESTED AT [facility] 6720 (BEAKER) (test code = SY[place]EE [place] 1538) [address] POCT-GLUCOSE [id number] 17:18:00 Test Item Value Reference Range Interpretation Comments POC-GLUCOSE METER 161 mg/dL 70-110 H TESTED AT [facility] 6720 (BEAKER) (test code = SYDNEE Rendon [place] 1538) [address] URINALYSIS W/ [id number] 13:16:00 Test Item Value Reference Range Interpretation [...] 516) SOURCE(BEAKER) (test code = Urine, Voided 9438) POCT-GLUCOSE [id number] 08:34:00 Test Item Value Reference Range Interpretation Comments POC-GLUCOSE METER 154 mg/dL 70-110 H TESTED AT [facility] 6720 (BEAKER) (test code = [place] 1538) [address] BASIC METABOLIC [id number] 07:34:00 Test Item Value Reference Range Interpretation [...] S NOT APPLICABLE FOR DIALYSIS PATIEN TS. [id number] 07:32:00 Test Item Value Reference Range Interpretation Comments PHOSPHORUS (BEAKER) (test code = 3.1 mg/dL 2.3-4.7 604) [id number] 07:32:00 Test Item Value Reference Range Interpretation Comments MAGNESIUM (BEAKER) (test code = 1.6 mg/dL 1.6-2.6 627) CBC W/PLT COUNT & AUTO [id number] 05:48:00 Test Item Value Reference Range Interpretation [...] PERCENT (BEAKER) (test code = 2801) POCT-GLUCOSE [id number] 22:24:00 Test Item Value Reference Range Interpretation Comments POC-GLUCOSE METER 119 mg/dL 70-110 H TESTED AT [place] [address] [facility] (test code = [facility] 1538) [address] POCT-GLUCOSE [id number] 17:09:00 Test Item Value Reference Range Interpretation Comments POC-GLUCOSE METER 110 mg/dL 70-110 TESTED AT [place] [address] [facility] (test code = [facility] 1538) [address] BLOOD [id number] 17:00:00 Test Item Value Reference Range Interpretation Comments CULTURE (BEAKER) (test No growth in 5 days code = 1095) BLOOD [id number] 17:00:00 Test Item Value Reference Range Interpretation Comments CULTURE (BEAKER) (test No growth in 5 days code = 1095) POCT-GLUCOSE [id number] 11:34:00 Test Item Value Reference Range Interpretation Comments POC-GLUCOSE METER 202 mg/dL 70-110 H TESTED AT [place] [address] [facility] (test code = [facility] 1538) [address] POCT-GLUCOSE [id number] 07:55:00 Test Item Value Reference Range Interpretation Comments POC-GLUCOSE METER 147 mg/dL 70-110 H TESTED AT [place] [address] [facility] (test code = [facility] 1538) [address] BASIC METABOLIC [id number] 05:37:00 Test Item Value Reference Range Interpretation [...] S NOT APPLICABLE FOR DIALYSIS PATIEN TS. [id number] 05:35:00 Test Item Value Reference Range Interpretation Comments PHOSPHORUS (BEAKER) (test code = 2.8 mg/dL 2.3-4.7 604) [id number] 05:35:00 Test Item Value Reference Range Interpretation Comments MAGNESIUM (BEAKER) (test code = 1.6 mg/dL 1.6-2.6 627) CBC W/PLT COUNT & AUTO [id number] 05:12:00 Test Item Value Reference Range Interpretation [...] PERCENT (BEAKER) (test code = 2801) POCT-GLUCOSE [id number] 22:02:00 Test Item Value Reference Range Interpretation Comments POC-GLUCOSE METER 107 mg/dL 70-110 TESTED AT [facility] 6720 (BEAKER) (test code = [place] 1538) [address] CT, [id number] 20:36:00FINAL REPORT CT of the abdomen and pelvis, without contrast. History: Abdominalpain, fever, concern for urine leak. Comparison: 06/17/2017. [...] are not visualized. There is no evidence offree fluid or adenopathy. Bones: Degenerative changes are present throughout the lumbar spine without evidence of lytic or sclerotic lesion. IMPRESSION:Interval formation of a fluid collection adjacentto the proximal right ureter consistent with a small urinoma. Otherwise no significant change. Signed: Casey Bowers Verified Date/Time: 06/22/2017 20:36:43 Reading Location: [facility] C0[facility] Consult Reading Room POCT- GLUCOSE [id number] 16:27:00 Test Item Value Reference Range Interpretation Comments POC-GLUCOSE METER 136 mg/dL 70-110 H TESTED AT [place] [address] ([facility]) (test code = [facility] 1538) [address] POCT-GLUCOSE [id number] 12:07:00 Test Item Value Reference Range Interpretation Comments POC-GLUCOSE METER 150 mg/dL 70-110 H TESTED AT [place] [address] ([facility]) (test code = [facility] 1538) [address] POCT-GLUCOSE [id number] 07:45:00 Test Item Value Reference Range Interpretation Comments POC-GLUCOSE METER 201 mg/dL 70-110 H TESTED AT [place] [address] ([facility]) (test code = [facility] 1538) [address] BASIC METABOLIC [id number] 05:21:00 Test Item Value Reference Range Interpretation [...] S NOT APPLICABLE FOR DIALYSIS PATIEN TS. [id number] 05:09:00 Test Item Value Reference Range Interpretation Comments MAGNESIUM (BEAKER) 1.5 mg/dL 1.6-2.6 L Specimen slightly (test code = 627) hemolyzed [id number] 05:09:00 Test Item Value Reference Range Interpretation Comments PHOSPHORUS (BEAKER) 2.8 mg/dL 2.3-4.7 Specimen slightly (test code = 604) hemolyzed CBC W/PLT COUNT & AUTO [id number] 04:32:00 Test Item Value Reference Range Interpretation [...] % 0-1 PERCENT (BEAKER) (test code = 2805) POCT-GLUCOSE [id number] 21:34:00 Test Item Value Reference Range Interpretation Comments POC-GLUCOSE METER 104 mg/dL 70-110 TESTED AT [place] [address] ([facility]) (test code = [place]EE [place] 1538) [address] POCT-GLUCOSE [id number] 17:16:00 Test Item Value Reference Range Interpretation Comments POC-GLUCOSE METER 262 mg/dL 70-110 H TESTED AT [facility] 6720 ([facility]) (test code = SYDNEE Rendon [facility] 1538) [address] URINE [id number] 11:56:00 Test Item Value Reference Range Interpretation Comments CULTURE ([facility]) (test A 50-59 ,000 col/mL Raheel code = 1095) glabrata 10-19,000 col/ml skin floraPOCT-GLUCOSE [id number] 11:29:00 Test Item Value Reference Range Interpretation Comments POC-GLUCOSE METER 148 mg/dL 70-110 H TESTED AT [facility] 6720 (BEAKER) (test code = SYDNEE Rendon [place] 1538) [address] POCT-GLUCOSE [id number] 08:58:00 Test Item Value Reference Range Interpretation Comments POC-GLUCOSE METER 141 mg/dL 70-110 H TESTED AT [facility] 6720 (BEAKER) (test code = SYDNEE Rendon [place] 1538) [address] BASIC METABOLIC [id number] 05:45:00 Test Item Value Reference Range Interpretation [...] S NOT APPLICABLE FOR DIALYSIS PATIEN TS. [id number] 05:30:00 Test Item Value Reference Range Interpretation Comments PHOSPHORUS (BEAKER) (test code = 2.8 mg/dL 2.3-4.7 604) [id number] 05:30:00 Test Item Value Reference Range Interpretation Comments MAGNESIUM (BEAKER) (test code = 1.6 mg/dL 1.6-2.6 627) CBC W/PLT COUNT & AUTO [id number] 05:07:00 Test Item Value Reference Range Interpretation [...] PERCENT (BEAKER) (test code = 2801) POCT-GLUCOSE [id number] 21:04:00 Test Item Value Reference Range Interpretation Comments POC-GLUCOSE METER 139 mg/dL 70-110 H TESTED AT [facility] 6720 (BEAKER) (test code = SYDNEE Rendon [place] 1538) [address] POCT-GLUCOSE [id number] 17:13:00 Test Item Value Reference Range Interpretation Comments POC-GLUCOSE METER 127 mg/dL 70-110 H TESTED AT [facility] 6720 (BEAKER) (test code = SYDNEE Rendon [place] 1538) [address] POCT-GLUCOSE [id number] 11:25:00 Test Item Value Reference Range Interpretation Comments POC-GLUCOSE METER 124 mg/dL 70-110 H TESTED AT [facility] 6720 (BEAKER) (test code = SYDNEE Rendon [place] 1538) [address] POCT-GLUCOSE [id number] 07:28:00 Test Item Value Reference Range Interpretation Comments POC-GLUCOSE METER 137 mg/dL 70-110 H TESTED AT [facility] 6720 (BEAKER) (test code = SYDNEE Rendon [facility] 1538) [address] [id number] 06:43:00 Test Item Value Reference Range Interpretation Comments PHOSPHORUS (BEAKER) (test code = 2.9 mg/dL 2.3-4.7 604) [id number] 06:43:00 Test Item Value Reference Range Interpretation Comments MAGNESIUM (BEAKER) (test code = 1.6 mg/dL 1.6-2.6 627) BASIC METABOLIC [id number] 06:43:00 Test Item Value Reference Range Interpretation [...] PATIEN TS. CBC W/PLT COUNT & AUTO [id number] 05:55:00 Test Item Value Reference Range Interpretation [...] 417) IMMATURE GRANULOCYTES-RELATIVE 1 % 0-1 PERCENT (REGINAAKER) (test code = 2801) POCT-GLUCOSE [id number] 21:37:00 Test Item Value Reference Range Interpretation Comments POC-GLUCOSE METER 143 mg/dL 70-110 H TESTED AT [facility] 67 (ARRON) (test code = [facility] 1538) [address] POCT-GLUCOSE [id number] 18:04:00 Test Item Value Reference Range Interpretation Comments POC-GLUCOSE METER 143 mg/dL 70-110 H TESTED AT [place] [address] ([facility]) (test code = [facility] 1538) [address]131 VANCOMYCIN LEVEL, [id number] 15:00:00 Test Item Value Reference Range Interpretation Comments VANCOMYCIN TROUGH (ARRON) (test 9.0 ug/mL 10.0-20.0 L code = 522) Please hold next vanc dose until vanc trough results.TISSUE [id number] 14:20:00Surgical Pathology Report Case: [id number] Authorizing Provider: Manuel Escalera MD Collected: 06/13/2017 1615 Ordering Location: [facility] PERIOPER[facility]IVE Received: 06/14/2017 [facility] SERVICES Pathologist: Aquilino Diaz MD Specimen: Soft Tissue, Other, right upj segment RENAL PELVIS, RIGHT URETERO PELVIC JUNCTION, BIOPSY:- HAPHAZARD ARRANGEMENT OF SMOOTH MUSCLE BUNDLES WITH JENNIFER-MUSCULAR FIBROSIS, CONSISTENT WITH URETEROPELVIC JUNCTION OBSTRUCTION- NEGATIVE FOR DYSPLASIA OR MALIGNANCY Signing Pathologist Direct Phone Line: [phone] signed by Aquilino Diaz MD on 06/19/2017 at 2:20 [id number] obstructionRight UPJ segmentReceived fresh labeled "right UPJ segment" are two irregular pink-camacho to mary-white rubbery fragments of soft tissue measuring 1.5 x 1.0 x 0.2 cm in aggregate. Sectioning reveals no discrete masses. The specimen is entirely submitted in cassetteA1. DB/plPerformed.POCT- GLUCOSE [id number] 13:48:00 Test Item Value Reference Range Interpretation Comments POC-GLUCOSE METER 156 mg/dL 70-110 H TESTED AT [facility] 6720 [facility] (test code = SYDNEE PERE[place] 1538) [address] RAD, CHEST, 2 [id number] 10:31:00Reason for exam:->feverFINAL REPORT Chest x-ray, PA and lateral views Clinical History: fever Comparison: March 10, 2017 Findings: Cardiac silhouette is normal. Aorta appears slightly tortuous/ectatic. Question mild vascular congestion and interstitial edema. Slight blunting of the posterior costophrenicangles could reflect trace fluid. There are a few small foci of opacities in the right lung. No pneum othorax. Osseous structures demonstrate mild degenerative changes. Impression: Question mild vascular congestion and interstitial edema. A few small foci of nonspecific opacities in the right lung. Suggest radiographic follow-up. Signed: Yulisa Monson Verified Date/Time: 06/19/2017 10:31:11 Reading Location: [facility] Radiology Reading Room POCT-GLUCOSE [id number] 07:32:00 Test Item Value Reference Range Interpretation Comments POC-GLUCOSE METER 163 mg/dL 70-110 H TESTED AT [facility] 6720 ([facility] (test code = SYDNEE Rendon [facility] 1538) [address] [id number] 06:28:00 Test Item Value Reference Range Interpretation Comments PHOSPHORUS (BEAKER) (test code = 4.0 mg/dL 2.3-4.7 604) [id number] 06:28:00 Test Item Value Reference Range Interpretation Comments MAGNESIUM (BEAKER) (test code = 1.9 mg/dL 1.6-2.6 627) BASIC METABOLIC [id number] 06:28:00 Test Item Value Reference Range Interpretation [...] PATIEN TS. CBC W/PLT COUNT & AUTO [id number] 06:27:00 Test Item Value Reference Range Interpretation [...] PERCENT (BEAKER) (test code = 2801) POCT-GLUCOSE [id number] 21:24:00 Test Item Value Reference Range Interpretation Comments POC-GLUCOSE METER 172 mg/dL 70-110 H TESTED AT [place] [address] ([facility] (test code = [facility] Jusitce [facility] 1538) [address] POCT-GLUCOSE [id number] 17:00:00 Test Item Value Reference Range Interpretation Comments POC-GLUCOSE METER 164 mg/dL 70-110 H TESTED AT [place] [address] ([facility] (test code = [facility] 1538) [address] POCT-GLUCOSE [id number] 13:16:00 Test Item Value Reference Range Interpretation Comments POC-GLUCOSE METER 168 mg/dL 70-110 H TESTED AT [place] [address] (BEAKER) (test code = [facility] 1538) [address] POCT-GLUCOSE [id number] 07:26:00 Test Item Value Reference Range Interpretation Comments POC-GLUCOSE METER 164 mg/dL 70-110 H TESTED AT [place] [address] ([facility] (test code = [facility] 1538) [address] BASIC METABOLIC [id number] 05:05:00 Test Item Value Reference Range Interpretation [...] S NOT APPLICABLE FOR DIALYSIS PATIEN TS. [id number] 05:04:00 Test Item Value Reference Range Interpretation Comments PHOSPHORUS (BEAKER) (test code = 4.8 mg/dL 2.3-4.7 H 604) [id number] 05:04:00 Test Item Value Reference Range Interpretation Comments MAGNESIUM (BEAKER) (test code = 1.6 mg/dL 1.6-2.6 627) CBC W/PLT COUNT & AUTO [id number] 03:57:00 Test Item Value Reference Range Interpretation [...] PERCENT (BEAKER) (test code = 2801) CT, [id number] 20:27:00Reason for exam:->flank pain s/p pyeloplasty FINAL [...] FINDINGS:NOTE: Absence of intravenous contrast decreases sensitivity for focal lesions and vascular pathology. There is a moderate to large volume subcutaneous emphysema along the right side of the image volume extending from the level of the manubrium anteriorly/laterally to the level of the pelvis where crosses [...] of the stomach and small bowel are withinnormal limits. There is fecal distention throughout the colon. Distal diverticular disease is evident, however there is no focal secondary signs of diverticulitis. Vascular and osseous structures reveal no acute abnormalities. IMPRESSION: Limited noncontrast evaluation revealing recent double-J ureteric stent placement on the right with moderate right hydronephrosis. Moderate volume subcutaneous emphysema with minimal extension into the peritoneal cavity, compatible with provided history of recent instrumentation. Stable left hydronephrosis. Signed: JR Ambrosio Robert [facility] Verified Date/Time: 06/17/2017 20:27:27 Reading Location: [address] Reading Room Electronically signedby: HOMERO AMBROSIO on 06/17/2017 08:27 PMCBC (HEMOGRAM ONLY)2017-06-17 20:19:00 Test Item Value Reference [...] 150-430 (test code = 756) BASIC METABOLIC [id number] 20:18:00 Test Item Value Reference Range Interpretation [...] NOT APPLICABLE FOR DIALYSIS PATIEN TS. POCT-GLUCOSE [id number] 12:06:00 Test Item Value Reference Range Interpretation Comments POC-GLUCOSE METER 160 mg/dL 70-110 H TESTED AT [facility] 6720 ([facility]) (test code = SYDNEE Rendon [place] 1538) [address] POCT-GLUCOSE [id number] 07:33:00 Test Item Value Reference Range Interpretation Comments POC-GLUCOSE METER 246 mg/dL 70-110 H TESTED AT [place] [address] ([facility]) (test code = SYDNEE Rendon [place] 1538) [address] POCT-GLUCOSE [id number] 22:02:00 Test Item Value Reference Range Interpretation Comments POC-GLUCOSE METER 206 mg/dL 70-110 H TESTED AT [facility] 6720 ([facility]) (test code = GILBERTOHA Rendon [place] 1538) [address] POCT-GLUCOSE [id number] 17:55:00 Test Item Value Reference Range Interpretation Comments POC-GLUCOSE METER 265 mg/dL 70-110 H TESTED AT [place] [address] (BEAKER) (test code = SYDNEE Rendon [place] 1538) [address] POCT-GLUCOSE [id number] 08:39:00 Test Item Value Reference Range Interpretation Comments POC-GLUCOSE METER 189 mg/dL 70-110 H TESTED AT [place] [address] (BEAKER) (test code = SYDNEE Rendon [place] 1538) [address] POCT-GLUCOSE [id number] 07:44:00 Test Item Value Reference Range Interpretation Comments POC-GLUCOSE METER 173 mg/dL 70-110 H TESTED AT [place] [address] (BEAKER) (test code = SYDNEE Rendon [facility] 1538) [address] BASIC METABOLIC [id number] 06:49:00 Test Item Value Reference Range Interpretation [...] APPLICABLE FOR DIALYSIS PATIEN TS. HEMOGLOBIN AND [id number] 06:28:00 Test Item Value Reference Range Interpretation Comments HEMOGLOBIN (BEAKER) (test code = 12.3 GM/DL 11.2-15.7 410) HEMATOCRIT (BEAKER) (test code = 38.8 % 34.1-44.9 411) BASIC METABOLIC [id number] 11:05:00 Test Item Value Reference Range Interpretation [...] APPLICABLE FOR DIALYSIS PATIEN TS. HEMOGLOBIN AND [id number] 10:48:00 Test Item Value Reference Range Interpretation Comments HEMOGLOBIN (BEAKER) (test code = 13.4 GM/DL 11.2-15.7 410) HEMATOCRIT (BEAKER) (test code = 41.7 % 34.1-44.9 411) POCT-GLUCOSE [id number] 10:25:00 Test Item Value Reference Range Interpretation Comments POC-GLUCOSE METER 216 mg/dL 70-110 H TESTED AT [facility] 6720 ([facility]) (test code = SYDNEE PEREZ [place] 1538) [address] TISSUE [id number] 12:11:00Surgical Pathology Report Case: [id number] Authorizing Provider: Jessica Ivory MD Collected: 05/02/2017 1147 Ordering Location: [facility] Endoscopy Received: 05/02/2017 1533 Services Pathologist: Tung Connor MD Specimens: A) - Polyp, Colon - Right/Ascending B) - Polyp, Colon - Rectum A. COLON, RIGHT/ASCENDING POLYP, BIOPSY: - FRAGMENT OF TUBULAR ADENOMA (x1) - SEPARATE FRAGMENTS OFUNREMARKABLE COLONIC MUCOSAB. RECTUM, POLYP, BIOPSY: - FRAGMENTS OF HYPERPLASTIC POLYP (x3) Signing Pathologist Direct Phone Line: [phone] signed by Tung Connor MD on 05/03/2017 at 12:11 [id number], large intestine without perforation or abscess without bleeding, Ureteric fistula A. Right ascending colon polyp; B. Rectum colon polypThe specimen is received in t wo containers of formalin both labeled with the patient's information. Part A labeled "right/ascending colon polyp" consists of 0.4 cm fragment of camacho tissue, submitted entirely A1. Part B labeled "rectum colon polyp" consists of a 0.4 cm round fragment of camacho tissue, submitted B1. CG/pl Performed.URINALYSIS W/ [id number] 14:08:00 Test Item Value Reference Range Interpretation [...] 2 /LPF 514) SOURCE(BEAKER) (test code = 7735) BASIC METABOLIC [id number] 12:36:00 Test Item Value Reference Range Interpretation [...] GFR I S NOT APPLICABLE FOR DIALYSIS PATIJOCELIN PELAYO [id number] 11:58:00 Test Item Value Reference Range Interpretation Comments PARTIAL THROMBOPLASTIN TIME 35.7 seconds 22.5-36.0 (BEAKER) (test code = 760) PROTHROMBIN [id number] 11:57:00 Test Item Value Reference Range Interpretation Comments PROTIME (BEAKER) (test code = 13.6 seconds 11.7-14.7 759) INR (BEAKER) (test code = 370) 1.1 <=5.9 RECOMMENDED COUMADIN/WARFARIN INR THERAPY RANGESSTANDARD DOSE: 2.0 - 3.0 Includes: PROPHYLAXIS for venous thrombosis, systemic embolization; TREATMENT for venous thrombosis and/or pulmonary embolus.HIGH RISK: Target INR is 2.5-3.5 for patients with mechanical heart valves.CBC W/PLT COUNT & AUTO [id number] 11:50:00 Test Item Value Reference Range Interpretation [...] PERCENT (BEAKER) (test code = 2801) POCT-GLUCOSE [id number] 17:46:00 Test Item Value Reference Range Interpretation Comments POC-GLUCOSE METER 201 mg/dL 70-110 H TESTED AT [place] [address] (BEAKER) (test code = SYDNEE ANDRE 1538) [address] POCT-GLUCOSE [id number] 14:15:00 Test Item Value Reference Range Interpretation Comments POC-GLUCOSE METER 152 mg/dL 70-110 H TESTED AT [place] [address] ([facility]) (test code = SYDNEE Rendon [place] 1538) [address] POCT-GLUCOSE [id number] 08:21:00 Test Item Value Reference Range Interpretation Comments POC-GLUCOSE METER 149 mg/dL 70-110 H TESTED AT [place] [address] ([facility]) (test code = SYDNEE Rendon [place] 1538) [address] POCT-GLUCOSE [id number] 21:11:00 Test Item Value Reference Range Interpretation Comments POC-GLUCOSE METER 201 mg/dL 70-110 H TESTED AT [place] [address] ([facility]) (test code = SYDNEE Rendon [place] 1538) [address] POCT-GLUCOSE [id number] 18:48:00 Test Item Value Reference Range Interpretation Comments POC-GLUCOSE METER 188 mg/dL 70-110 H TESTED AT [place] [address] ([facility]) (test code = SYDNEE Rendon [facility] 1538) [address] POCT-GLUCOSE [id number] 13:32:00 Test Item Value Reference Range Interpretation Comments POC-GLUCOSE METER 151 mg/dL 70-110 H TESTED AT [place] [address] ([facility]) (test code = SYDNEE Rendon [facility] 1538) [address] POCT-GLUCOSE [id number] 08:31:00 Test Item Value Reference Range Interpretation Comments POC-GLUCOSE METER 149 mg/dL 70-110 H TESTED AT [place] [address] ([facility]) (test code = SYDNEE Rendon [facility] 1538) [address] BASIC METABOLIC [id number] 07:11:00 Test Item Value Reference Range Interpretation [...] PATIEN TS. CBC W/PLT COUNT & AUTO [id number] 06:53:00 Test Item Value Reference Range Interpretation [...] PERCENT (BEAKER) (test code = 2801) POCT-GLUCOSE [id number] 21:07:00 Test Item Value Reference Range Interpretation Comments POC-GLUCOSE METER 224 mg/dL 70-110 H TESTED AT [facility] 67 (BEAKER) [facility] 1538) [address] POCT-GLUCOSE [id number] 17:14:00 Test Item Value Reference Range Interpretation Comments POC-GLUCOSE METER 121 mg/dL 70-110 H TESTED AT [place] [address] ([facility] (test code = [facility] Justice [facility] 1538) [address] POCT-GLUCOSE [id number] 11:03:00 Test Item Value Reference Range Interpretation Comments POC-GLUCOSE METER 161 mg/dL 70-110 H TESTED AT [place] [address] (BEAKER) (test code = [facility] 1538) [address] POCT-GLUCOSE [id number] 07:24:00 Test Item Value Reference Range Interpretation Comments POC-GLUCOSE METER 191 mg/dL 70-110 H TESTED AT [place] [address] (BEAKER) (test code = [facility] 1538) [address] BASIC METABOLIC [id number] 04:45:00 Test Item Value Reference Range Interpretation [...] NOT APPLICABLE FOR DIALYSIS PATIEN TS. POCT-GLUCOSE [id number] 21:03:00 Test Item Value Reference Range Interpretation Comments POC-GLUCOSE METER 164 mg/dL 70-110 H TESTED AT [facility] 6720 (BEAKER) (test code = [facility] Dem[place]ure [place] 1538) [address] BLOOD [id number] 18:00:00 Test Item Value Reference Range Interpretation Comments CULTURE (BEAKER) (test No growth in 5 days code = 1095) BLOOD [id number] 18:00:00 Test Item Value Reference Range Interpretation Comments CULTURE (BEAKER) (test No growth in 5 days code = 1095) POCT-GLUCOSE [id number] 17:18:00 Test Item Value Reference Range Interpretation Comments POC-GLUCOSE METER 154 mg/dL 70-110 H TESTED AT [place] [address] (BEAKER) (test code = [facility] [place] 1538) [address] POCT-GLUCOSE [id number] 11:29:00 Test Item Value Reference Range Interpretation Comments POC-GLUCOSE METER 117 mg/dL 70-110 H TESTED AT [place] [address] (BEAKER) (test code = [facility] [place] 1538) [address] URINE [id number] 09:54:00 Test Item Value Reference Range Interpretation Comments CULTURE (BEAKER) (test code = 1095) No growth POCT-GLUCOSE [id number] 07:34:00 Test Item Value Reference Range Interpretation Comments POC-GLUCOSE METER 120 mg/dL 70-110 H TESTED AT [place] [address] ([facility] (test code = [facility] [place] 1538) [address] BASIC METABOLIC [id number] 05:18:00 Test Item Value Reference Range Interpretation [...] PATIEN TS. CBC W/PLT COUNT & AUTO [id number] 04:59:00 Test Item Value Reference Range Interpretation [...] PERCENT (BEAKER) (test code = 2801) POCT-GLUCOSE [id number] 21:33:00 Test Item Value Reference Range Interpretation Comments POC-GLUCOSE METER 114 mg/dL 70-110 H TESTED AT [place] [address] ([facility] (test code = [facility] Justice [facility] 1538) [address] POCT-GLUCOSE [id number] 17:43:00 Test Item Value Reference Range Interpretation Comments POC-GLUCOSE METER 177 mg/dL 70-110 H TESTED AT [place] [address] ([facility] (test code = [facility] Justice [facility] 1538) [address] POCT-GLUCOSE [id number] 11:19:00 Test Item Value Reference Range Interpretation Comments POC-GLUCOSE METER 183 mg/dL 70-110 H TESTED AT [place] [address] (BEAKER) (test code = [facility] Justice [facility] 1538) [address] POCT-GLUCOSE [id number] 07:56:00 Test Item Value Reference Range Interpretation Comments POC-GLUCOSE METER 131 mg/dL 70-110 H TESTED AT [place] [address] ([facility] (test code = [facility] Justice [facility] 1538) [address] BASIC METABOLIC [id number] 07:52:00 Test Item Value Reference Range Interpretation [...] PATIEN TS. CBC W/PLT COUNT & AUTO [id number] 06:52:00 Test Item Value Reference Range Interpretation [...] L 0.00-0.20 (test code = 417) 0.00POCT-GLUCOSE [id number] 21:16:00 Test Item Value Reference Range Interpretation Comments POC-GLUCOSE METER 141 mg/dL 70-110 H TESTED AT [place] [address] (BEAKER) (test code = [facility] Justice [facility] 1538) [address] POCT-GLUCOSE [id number] 17:41:00 Test Item Value Reference Range Interpretation Comments POC-GLUCOSE METER 154 mg/dL 70-110 H TESTED AT [place] [address] (BEAKER) (test code = [facility] Justice [facility] 1538) [address] URINALYSIS W/ [id number] 15:10:00 Test Item Value Reference Range Interpretation [...] code Urine, Clean Catch = 2795) POCT-GLUCOSE [id number] 12:04:00 Test Item Value Reference Range Interpretation Comments POC-GLUCOSE METER 171 mg/dL 70-110 H TESTED AT [place] [address] (BEAKER) (test code = SYDNEE Rendon [facility] 1538) [address] URINE [id number] 10:02:00 Test Item Value Reference Range Interpretation Comments CULTURE (BEAKER) (test code = 1095) No growth POCT-GLUCOSE [id number] 08:15:00 Test Item Value Reference Range Interpretation Comments POC-GLUCOSE METER 118 mg/dL 70-110 H TESTED AT [place] [address] (BEAKER) (test code = SYDNEE Rendon [facility] 1538) [address] BASIC METABOLIC [id number] 05:04:00 Test Item Value Reference Range Interpretation [...] PATIEN TS. CBC W/PLT COUNT & AUTO [id number] 04:57:00 Test Item Value Reference Range Interpretation [...] L 0.00-0.20 (test code = 417) 0.00POCT-GLUCOSE [id number] 21:51:00 Test Item Value Reference Range Interpretation Comments POC-GLUCOSE METER 159 mg/dL 70-110 H TESTED AT [place] [address] ([facility] (test code = [facility] 1538) [address] RAPID DRUG SCREEN, [id number] 21:21:00 Test Item Value Reference Range Interpretation [...] situations. Chain of custody not maintained. Some jzrg-yyw-gkhzdqy medications, as well as adulterants, may cause inaccurate results. Clinical correlation should be applied. Mari comprehensive drug screen or confirmation of a detected drug may be performed upon request.POCT-GLUCOSE [id number] 14:21:00 Test Item Value Reference Range Interpretation Comments POC-GLUCOSE METER 113 mg/dL 70-110 H TESTED AT [place] [address] ([facility]) (test code = [facility] 1538) [address] [id number] 10:15:00 Test Item Value Reference Range Interpretation Comments RPR SCREEN (BEAKER) (test code = Nonreactive Nonreactive 420) URINE [id number] 09:21:00 Test Item Value Reference Range Interpretation Comments CULTURE (BEAKER) (test >100,000 col/mL skin code = 1095) mckenna POCT-GLUCOSE [id number] 08:00:00 Test Item Value Reference Range Interpretation Comments POC-GLUCOSE METER 128 mg/dL 70-110 H TESTED AT [facility] 6720 (BEAKER) (test code = SYDNEE Rendon [facility] 1538) [address] CBC (HEMOGRAM ONLY)2017-03-04 07:25:00 Test Item Value [...] (BEAKER) (test code = 413) 0.00BASIC METABOLIC [id number] 07:02:00 Test Item Value Reference Range Interpretation [...] NOT APPLICABLE FOR DIALYSIS PATIEN TS. POCT-GLUCOSE [id number] 21:33:00 Test Item Value Reference Range Interpretation Comments POC-GLUCOSE METER 163 mg/dL 70-110 H TESTED AT [facility] 6720 (BEAKER) (test code = SYDNEE Rendon [facility] 1538) [address] URINALYSIS W/ [id number] 18:19:00 Test Item Value Reference Range Interpretation [...] 520) SOURCE(BEAKER) (test code Urine, Straight = 2616) Catheter POCT-GLUCOSE [id number] 16:40:00 Test Item Value Reference Range Interpretation Comments POC-GLUCOSE METER 120 mg/dL 70-110 H TESTED AT [facility] 6720 (BEAKER) (test code = [place] 1538) [address] HEPATITIS PANEL, [id number] 10:25:00 Test Item Value Reference Range Interpretation Comments HEPATITIS A IGM ANTIBODY (BEAKER) Nonreactive Nonreactive (test code = 498) HEPATITIS B CORE IGM ANTIBODY Nonreactive Nonreactive (BEAKER) (test code = 645) HEPATITIS C ANTIBODY (BEAKER) Nonreactive Nonreactive (test code = 367) HEPATITIS B SURFACE ANTIGEN (2) Nonreactive Nonreactive (BEAKER) (test code = 2585) HIV-1 ANTIGEN WITH HIV-1/2 [id number] 10:25:00 Test Item Value Reference Range Interpretation Comments HIV-1 ANTIGEN WITH HIV 1\\T\\2 Nonreactive Nonreactive ANTIBODY (2) (BEAKER) (test code = 2586) BASIC METABOLIC [id number] 10:05:00 Test Item Value Reference Range Interpretation [...] PATIEN TS. CBC W/PLT COUNT & AUTO [id number] 09:58:00 Test Item Value Reference Range Interpretation [...] L 0.00-0.20 (test code = 417) 0.00POCT-GLUCOSE [id number] 08:28:00 Test Item Value Reference Range Interpretation Comments POC-GLUCOSE METER 134 mg/dL 70-110 H TESTED AT [facility] 6720 (BEAKER) (test code = [place] 1538) [address] POCT-GLUCOSE [id number] 21:33:00 Test Item Value Reference Range Interpretation Comments POC-GLUCOSE METER 142 mg/dL 70-110 H TESTED AT [facility] 6720 (BEAKER) (test code = SYDNEE [place] 1538) [address] URINALYSIS W/ [id number] 13:59:00 Test Item Value Reference Range Interpretation [...] SOURCE(BEAKER) (test code = 2795) COMPREHENSIVE METABOLIC [id number] 12:59:00 Test Item Value Reference Range Interpretation [...] S NOT APPLICABLE FOR DIALYSIS PATIEN TS. [id number] 12:31:00 Test Item Value Reference Range Interpretation Comments PROTIME (BEAKER) (test code = 13.7 seconds 11.7-14.7 759) INR (BEAKER) (test code = 370) 1.1 <=5.9 PARTIAL THROMBOPLASTIN TIME 35.2 seconds 22.5-36.0 (BEAKER) (test code = 760) RECOMMENDED COUMADIN/WARFARIN INR THERAPY RANGESSTANDARD DOSE: 2.0 - 3.0 Includes: PROPHYLAXIS for venous thrombosis, systemic embolization; TREATMENT for venous thrombosis and/or pulmonary embolus.HIGH RISK: Target INR is 2.5-3.5 for patients with mechanical heart valves.CBC W/PLT COUNT & AUTO [id number] 12:18:00 Test Item Value Reference Range Interpretation [...] L 0.00-0.20 (test code = 417) 0.00BLOOD [id number] 06:00:00 Test Item Value Reference Range Interpretation Comments CULTURE (BEAKER) (test No growth in 5 days code = 1095) URINE [id number] 13:38:00 Test Item Value Reference Range Interpretation Comments CULTURE (BEAKER) (test A 50-59 ,000 col/mL Raheel code = 1095) albicans <10,000 col/mL Gram Negative byron<10,000 col/mL skin floraURINALYSIS W/ [id number] 03:34:00 Test Item Value Reference Range Interpretation [...] = 516) SOURCE(BEAKER) (test code = 2795) [id number] 02:16:00 Test Item Value Reference Range Interpretation Comments LIPASE (BEAKER) (test code = 749) 8 U/L 8-78 [id number] 02:16:00 Test Item Value Reference Range Interpretation Comments AMYLASE (BEAKER) (test code = 349) 21 U/L 25-125 L BASIC METABOLIC [id number] 02:16:00 Test Item Value Reference Range Interpretation [...] APPLICABLE FOR DIALYSIS PATIEN TS. HEPATIC FUNCTION [id number] 02:16:00 Test Item Value Reference Range Interpretation [...] 6-55 347) CBC W/PLT COUNT & AUTO [id number] 02:05:00 Test Item Value Reference Range Interpretation [...] L 0.00-0.20 (test code = 417) 0.00TISSUE [id number] 16:41:00Surgical Pathology Report Case: [id number] Authorizing Provider: Manuel Escalera MD Collected: 01/23/2017 1827 Ordering Location: [facility] PERIOPERATIVE Received: 01/24/2017 0855 SERVICES Pathologist: Karma Odonnell MD Specimen: Soft Tissue, Other, LEFT PROXIMAL URETERAL STRICTURE URETER, LEFT PROXIMAL STRICTURE, EXCISION: - UROTHELIUM LINED WALL WITH ACUTE AND CHRONIC INFLAMMATION, FOCAL EROSION AND REACTIVE CHANGES - NEGATIVE FOR DYSPLASIA OR MALIGNANCY Ureteropelvic junction obstructionLeft proximal ureteral strictureThe specimen is received in saline labeled with the patient's information and labeled "left proximal ureteral stricture" and consists of a segment of camacho-pink soft tissue measuring 1.5 x 0.8 x 0.3 cm. The tissue is entirely submitted in A1. /ewPerformed.[id number] CULTURE 2017-01-27 08:38:00 Test Item Value Reference Range Interpretation Comments CULTURE (BEAKER) (test No anaerobes isolated code = 1095) SURGICALLY OBTAINED CULTURE + GRAM [id number] 15:59:00 Test Item Value Reference Range Interpretation [...] >.12 , GRAM STAIN RESULT 4+ WBCs (Biom'UpAKER) (test code = 1123) GRAM STAIN RESULT 1+ yeast (Biom'UpAKER) (test code = 214778) POCT-GLUCOSE [id number] 13:12:00 Test Item Value Reference Range Interpretation Comments POC-GLUCOSE METER 116 mg/dL 70-110 H TESTED AT [facility] 6720 (MIGSIF) (test code = SYDNEE ANDRE 1538) [address]140 POCT-GLUCOSE [id number] 12:02:00 Test Item Value Reference Range Interpretation Comments POC-GLUCOSE METER 142 mg/dL 70-110 H TESTED AT [facility] 6720 (BEAKER) (test code = SYDNEE PEREZ [place] 1538) [address]862 POCT-GLUCOSE [id number] 08:20:00 Test Item Value Reference Range Interpretation Comments POC-GLUCOSE METER 169 mg/dL 70-110 H TESTED AT [facility] 6720 (BEAKER) (test code = [place] 1538) [id number] 04:58:00 Test Item Value Reference Range Interpretation Comments PHOSPHORUS (BEAKER) (test code = 2.0 mg/dL 2.3-4.7 L 604) [id number] 04:58:00 Test Item Value Reference Range Interpretation Comments MAGNESIUM (BEAKER) (test code = 2.0 mg/dL 1.6-2.6 627) BASIC METABOLIC [id number] 04:58:00 Test Item Value Reference Range Interpretation [...] PATIEN TS. CBC W/PLT COUNT & AUTO [id number] 04:14:00 Test Item Value Reference Range Interpretation [...] L 0.00-0.20 (test code = 417) 0.00POCT-GLUCOSE [id number] 21:38:00 Test Item Value Reference Range Interpretation Comments POC-GLUCOSE METER 137 mg/dL 70-110 H TESTED AT [facility] 6720 (BEAKER) (test code = SYDNEE [place] 1538) [address] POCT-GLUCOSE [id number] 11:40:00 Test Item Value Reference Range Interpretation Comments POC-GLUCOSE METER 187 mg/dL 70-110 H TESTED AT [place] [address] (BEAKER) (test code = SYDNEE Rendon [facility] 1538) [address] POCT-GLUCOSE [id number] 06:44:00 Test Item Value Reference Range Interpretation Comments POC-GLUCOSE METER 160 mg/dL 70-110 H TESTED AT [place] [address] (BEAKER) (test code = SYDNEE Rendon [facility] 1538) [address] BLOOD GAS, [id number] 04:11:00 Test Item Value Reference Range Interpretation [...] (BEAKER) (test code = 1819) 40.0 % [id number] 04:09:00 Test Item Value Reference Range Interpretation Comments PHOSPHORUS (BEAKER) (test code = 2.9 mg/dL 2.3-4.7 604) [id number] 04:09:00 Test Item Value Reference Range Interpretation Comments MAGNESIUM (BEAKER) (test code = 2.1 mg/dL 1.6-2.6 627) BASIC METABOLIC [id number] 04:09:00 Test Item Value Reference Range Interpretation [...] PATIEN TS. CBC W/PLT COUNT & AUTO [id number] 03:57:00 Test Item Value Reference Range Interpretation [...] L 0.00-0.20 (test code = 417) 0.00POCT-GLUCOSE [id number] 00:34:00 Test Item Value Reference Range Interpretation Comments POC-GLUCOSE METER 243 mg/dL 70-110 H TESTED AT [facility] 6720 (BEAKER) (test code = SYDNEE [place]ERE[place] 1538) [address] [id number] 21:39:00 Test Item Value Reference Range Interpretation Comments PHOSPHORUS (BEAKER) (test code = 3.7 mg/dL 2.3-4.7 604) [id number] 21:39:00 Test Item Value Reference Range Interpretation Comments MAGNESIUM (BEAKER) (test code = 1.6 mg/dL 1.6-2.6 627) COMPREHENSIVE METABOLIC [id number] 21:39:00 Test Item Value Reference Range Interpretation [...] PATIEN TS. CBC W/PLT COUNT & AUTO [id number] 21:24:00 Test Item Value Reference Range Interpretation [...] 0.00-0.20 (test code = 417) 0.00BLOOD GAS, [id number] 21:20:00 Test Item Value Reference Range Interpretation [...] code = 1819) 100.0 % BLOOD GAS, [id number] 18:58:00 Test Item Value Reference Range Interpretation [...] 37.0 C (test code = 1818) GLUCOSE-STAT [id number] 18:58:00 Test Item Value Reference Range Interpretation Comments GLUCOSE RANDOM (BEAKER) (test code 179 mg/dL 70-110 H = 652) CALCIUM, [id number] 18:58:00 Test Item Value Reference Range Interpretation Comments CALCIUM IONIZED (BEAKER) (test 0.96 mmol/L 1.12-1.27 L code = 698) PH, BLOOD (BEAKER) (test code = 7.37 1810) SODIUM NA-STAT [id number] 18:57:00 Test Item Value Reference Range Interpretation Comments SODIUM (BEAKER) (test code = 381) 138 meq/L 135-148 POTASSIUM-STAT [id number] 18:57:00 Test Item Value Reference Range Interpretation Comments POTASSIUM (BEAKER) (test code = 3.8 meq/L 3.6-5.5 379) HGB/HCT (H&H) - STAT [id number] 18:57:00 Test Item Value Reference Range Interpretation Comments HEMOGLOBIN (BEAKER) (test code = 12.8 g/dL 12.0-15.0 410) HEMATOCRIT (BEAKER) (test code = 38.0 % 36.0-45.0 411) SODIUM NA-STAT [id number] 17:20:00 Test Item Value Reference Range Interpretation Comments SODIUM (BEAKER) (test code = 381) 138 meq/L 135-148 POTASSIUM-STAT [id number] 17:20:00 Test Item Value Reference Range Interpretation Comments POTASSIUM (BEAKER) (test code = 3.8 meq/L 3.6-5.5 379) HGB/HCT (H&H) - STAT [id number] 17:20:00 Test Item Value Reference Range Interpretation Comments HEMOGLOBIN (BEAKER) (test code = 12.8 g/dL 12.0-15.0 410) HEMATOCRIT (BEAKER) (test code = 38.0 % 36.0-45.0 411) BLOOD GAS, [id number] 17:20:00 Test Item Value Reference Range Interpretation [...] (test code = 1819) 100.0 % GLUCOSE-STAT [id number] 17:20:00 Test Item Value Reference Range Interpretation Comments GLUCOSE RANDOM (BEAKER) (test code 167 mg/dL 70-110 H = 652) CALCIUM, [id number] 17:20:00 Test Item Value Reference Range Interpretation Comments CALCIUM IONIZED (BEAKER) (test 1.09 mmol/L 1.12-1.27 L code = 698) PH, BLOOD (BEAKER) (test code = 7.38 1810) BLOOD GAS, [id number] 16:34:00 Test Item Value Reference Range Interpretation [...] (test code = 1819) 100.0 % GLUCOSE-STAT [id number] 16:34:00 Test Item Value Reference Range Interpretation Comments GLUCOSE RANDOM (BEAKER) (test code 151 mg/dL 70-110 H = 652) CALCIUM, [id number] 16:34:00 Test Item Value Reference Range Interpretation Comments CALCIUM IONIZED (BEAKER) (test 1.11 mmol/L 1.12-1.27 L code = 698) PH, BLOOD (BEAKER) (test code = 7.31 1810) SODIUM NA-STAT [id number] 16:33:00 Test Item Value Reference Range Interpretation Comments SODIUM (BEAKER) (test code = 381) 139 meq/L 135-148 POTASSIUM-STAT [id number] 16:33:00 Test Item Value Reference Range Interpretation Comments POTASSIUM (BEAKER) (test code = 3.6 meq/L 3.6-5.5 379) HGB/HCT (H&H) - STAT [id number] 16:33:00 Test Item Value Reference Range Interpretation Comments HEMOGLOBIN (BEAKER) (test code = 13.0 g/dL 12.0-15.0 410) HEMATOCRIT (BEAKER) (test code = 38.0 % 36.0-45.0 411) BLOOD GAS, [id number] 15:56:00 Test Item Value Reference Range Interpretation [...] (test code = 1819) 100.0 % GLUCOSE-STAT [id number] 15:56:00 Test Item Value Reference Range Interpretation Comments GLUCOSE RANDOM (BEAKER) (test code 142 mg/dL 70-110 H = 652) CALCIUM, [id number] 15:56:00 Test Item Value Reference Range Interpretation Comments CALCIUM IONIZED (BEAKER) (test 1.03 mmol/L 1.12-1.27 L code = 698) PH, BLOOD (BEAKER) (test code = 7.32 1810) SODIUM NA-STAT [id number] 15:55:00 Test Item Value Reference Range Interpretation Comments SODIUM (BEAKER) (test code = 381) 138 meq/L 135-148 POTASSIUM-STAT [id number] 15:55:00 Test Item Value Reference Range Interpretation Comments POTASSIUM (BEAKER) (test code = 3.8 meq/L 3.6-5.5 379) HGB/HCT (H&H) - STAT [id number] 15:55:00 Test Item Value Reference Range Interpretation Comments HEMOGLOBIN (BEAKER) (test code = 13.5 g/dL 12.0-15.0 410) HEMATOCRIT (BEAKER) (test code = 40.0 % 36.0-45.0 411) URINALYSIS W/ [id number] 13:28:00 Test Item Value Reference Range Interpretation [...] SOURCE(BEAKER) (test code Urine, Clean Catch = 6925) POCT-GLUCOSE [id number] 12:50:00 Test Item Value Reference Range Interpretation Comments POC-GLUCOSE METER 146 mg/dL 70-110 H TESTED AT [facility] 6720 (BEAKER) (test code = [place] 1538) [id number] URINE [id number] 09:26:00 Test Item Value Reference Range Interpretation Comments CULTURE (BEAKER) (test A 50-59 ,000 col/mL Myroides code = 1095) speciesMost meseret sely resembles <10,000 col/mL Beta hemolytic strepURINALYSIS W/ [id number] 11:15:00 Test Item Value Reference Range Interpretation [...] SOURCE(BEAKER) (test code = 2795) BASIC METABOLIC [id number] 11:08:00 Test Item Value Reference Range Interpretation [...] NOT APPLICABLE FOR DIALYSIS PATIEN TS. PROTHROMBIN [id number] 10:58:00 Test Item Value Reference Range Interpretation Comments PROTIME (BEAKER) (test code = 12.8 seconds 11.7-14.7 759) INR (BEAKER) (test code = 370) 1.0 <=5.9 RECOMMENDED COUMADIN/WARFARIN INR THERAPY RANGESSTANDARD DOSE: 2.0 - 3.0 Includes: PROPHYLAXIS for venous thrombosis, systemic embolization; TREATMENT for venous thrombosis and/or pulmonary embolus.HIGH RISK: Target INR is 2.5-3.5 for patients with mechanical heart valves.[id number] 10:58:00 Test Item Value Reference Range Interpretation Comments PARTIAL THROMBOPLASTIN TIME 35.7 seconds 22.5-36.0 (BEAKER) (test code = 760) CBC W/PLT COUNT & AUTO [id number] 10:48:00 Test Item Value Reference Range Interpretation [...]
[2022-07-26 17:11] LABS: Urine Blood Negative (Negative); Urine Glucose 2+ (Negative); Urine Protein Negative (Negative); Urine Specific Gravity 1.015 (1.005-1.030); Urine pH 5.5 (5.0-7.0)
[2022-07-26 17:25] LABS: Urine Mucus Slight /HPF (None Seen)
[2022-07-26 17:37] LABS: Absolute Lymphocytes (CBC) 1.4 K/uL (0.7-4.9); Lymphocytes % 11.3 % (15.3-44.8); MCV 88.7 fL (80-100); MPV 7.3 fL (7.6-11.3); RBC Red Blood Cell Count 5.19 M/uL (3.86-4.86)
[2022-07-26 17:42] LABS: Protime INR 0.96
[2022-07-26] MEDS ORDERED: NA CHLORIDE 0.9% 1,000 ML ONE (17:44)
[2022-07-26] MEDS ORDERED: INSULIN -REGULAR HUMAN 50 UNIT/0.5 ML ML ONE ×2 (17:44→20:22)
[2022-07-26 18:00] LABS: SARS-COV-2 RT PCR NEGATIVE (NEGATIVE)
--- NOTE | 2022-07-26 18:19 | RAD REPORT ---
EXAM DESCRIPTION: RAD - Chest Single View - 07/26/2022 6:12 pm CLINICAL HISTORY: syncope Chest pain. COMPARISON: Chest Single View dated 03/07/2021; Chest Single View dated 03/04/2021; Chest Single View dated 02/28/2021; Chest Single View dated 06/26/2019 FINDINGS: Portable technique limits examination quality. The lungs are grossly clear. The heart is normal in size. No displaced fractures. IMPRESSION: No acute intrathoracic process suspected.
[2022-07-26 19:18] LABS: ALT/SGPT 32 U/L (13-56); Albumin 3.2 g/dL (3.4-5.0); BUN Blood Urea Nitrogen 31 mg/dL (7-18); Bicarbonate 24 mmol/L (21-32); Bilirubin Total 0.5 mg/dL (0.2-1.0); Glomerular Filtration Rate 39 ml/min (=/>90); Glucose Level 447 mg/dL (74-106); Protein, Total 6.8 g/dL (6.4-8.2); Sodium Level 128 mmol/L (136-145)
[2022-07-26 19:19] LABS: AST/SGOT 13 U/L (15-37); Bilirubin Direct < 0.1 mg/dL (0-0.2); Magnesium 1.8 mg/dL (1.6-2.4); Potassium 4.4 mmol/L (3.5-5.1)
[2022-07-26 19:22] LABS: Alkaline Phosphatase 74 U/L (45-117); NT PRO-BNP 145 pg/mL (<125); Troponin High Sensitivity 5.3 pg/mL (<58.9)
[2022-07-26] MEDS ORDERED: HYDROCODONE/CHLORPHEN 5 ML/OSYR ONE (19:42)
--- NOTE | 2022-07-26 21:03 | ER ---
Nurse's Notes [facility] Name: Ankita Todd Age: 61 yrs Sex: Female : 1960 Arrival Date: 07/26/2022 Time: 16:39 Bed 23 Private MD: VIKKI STRAUSS Diagnosis: Dehydration;Diabetes mellitus due to underlying condition with hyperglycemia Presentation: 07/26 16:54 Chief complaint: Patient states: my blood sugar brought me to the ER; last i check it jh5 was 505 at 2pm and i didn't take anything at that time cause i took my morning meds. Coronavirus screen: Vaccine status: Patient reports receiving the 2nd dose of the covid vaccine. Client denies travel out of the [place] in the last 14 days. Ebola Screen: Patient negative for fever greater than or equal to 101.5 degrees Fahrenheit, and additional compatible Ebola Virus Disease symptoms Patient denies exposure to infectious person. Patient denies travel to an Ebola-affected area in the 21 days before illness onset. Initial Sepsis Screen: Does the patient meet any 2 criteria? No. Patient's initial sepsis screen is negative. Does the patient have a suspected source of infection? No. Patient's initial sepsis screen is negative. Risk Assessment: Do you want to hurt yourself or someone else? Patient reports no desire to harm self or others. 16:54 Method Of Arrival: Ambulatory [facility] 16:54 Acuity: BRYAN 3 jh5 21:07 Onset of symptoms was July 26, 2022. 3 Triage Assessment: 17:01 General: Appears in no apparent distress. Behavior is calm, cooperative, appropriate 5 for age. Neuro: Reports a syncopal episode. Historical: - Allergies: 17:01 Benadryl; jh5 17:01 Diflucan; jh5 17:01 Morphine (Doesn't Work); jh5 17:01 Nitrofurantoin Macrocrystal; jh5 17:01 oral antifungals; jh5 17:01 tramadol; jh5 - PMHx: 17:01 Anxiety; Colitis; Diabetes - NIDDM; High Cholesterol; Hypertension; kidney stent; Sleep jh5 Apnea; - Immunization history:: Adult Immunizations up to date. - Social history:: Smoking status: Patient reports the use of cigarette tobacco products, smokes one-half pack cigarettes per day. Screenin:10 [facility] ED Fall Risk Assessment (Adult) History of falling in the last 3 months, eh3 including since admission No falls in past 3 months (0 pts) Confusion or Disorientation No (0 pts) Intoxicated or Sedated No (0 pts) Impaired Gait No (0 pts) Mobility Assist Device Used No (0 pt) Altered Elimination No (0 pt) Score/Fall Risk Level 0 - 2 = Low Risk Oriented to surroundings, Maintained a safe environment, Educated pt \T\ family on fall prevention, incl call for assistance when getting out of bed, Assessed \T\ reinforced patient's understanding of fall precautions, Provided non-skid footwear, Hourly rounding (assess needs \T\ fall precautionary measures) done. Humpty Dumpty Scale Fall Assessment Tool (age< 18yrs) Age 13 years and above (1 pt) Gender Female (1 pt) Diagnosis Other diagnosis (1 pt) Cognitive Impairments Oriented to own ability (1 pt) Environmental Factors Patient placed in bed (2 pts) Response to Surgery/Sedation/Anesthesia More than 48 hours/ None (1 pt) Medication Usage Other medications/ None (1 pt) Fall Risk Score/ Level Low Fall Risk: </= 11 points. Abuse screen: Denies threats or abuse. Denies injuries from another. Nutritional screening: No deficits noted. Tuberculosis screening: No symptoms or risk factors identified. Fall Risk IV access (20 points). Total Del Castillo Fall Scale indicates No Risk (0-24 pts). Assessment: 17:10 General: Appears in no apparent distress. uncomfortable, Behavior is calm, cooperative, eh3 appropriate for age. Pain: Denies pain. Neuro: Level of Consciousness is awake, alert, obeys commands, Oriented to person, place, time, situation. Cardiovascular: Capillary refill < 3 seconds Patient's skin is warm and dry. Rhythm is sinus rhythm. Respiratory: Airway is patent Respiratory effort is even, unlabored, Respiratory pattern is regular, symmetrical. GI: Abdomen is round non-distended, Reports nausea. : No signs and/or symptoms were reported regarding the genitourinary system. EENT: No signs and/or symptoms were reported regarding the EENT system. Derm: No signs and/or symptoms reported regarding the dermatologic system. Musculoskeletal: No signs and/or symptoms reported regarding the musculoskeletal system. Circulation, motion, and sensation intact. Range of motion: intact in all extremities. 18:00 Reassessment: Patient and/or family updated on plan of care and expected duration. Pain eh3 level reassessed. Patient is alert, oriented x 3, equal unlabored respirations, skin warm/dry/pink. 19:00 Reassessment: Patient and/or family updated on plan of care and expected duration. Pain eh3 level reassessed. Patient is alert, oriented x 3, equal unlabored respirations, skin warm/dry/pink. 20:00 Reassessment: Patient appears in no apparent distress at this time. Patient and/or 3 family updated on plan of care and expected duration. Pain level reassessed. Patient is alert, oriented x 3, equal unlabored respirations, skin warm/dry/pink. Vital Signs: 16:54 BP 150 / 94; Pulse 89; Resp 18; Temp 98.8; Pulse Ox 98% ; Weight 122.92 kg; Height 5 [facility] ft. 7 in. (170.18 cm); 18:00 BP 139 / 88; Pulse 84; Resp 16; Pulse Ox 98% on R/A; eh3 19:00 BP 132 / 92; Pulse 80; Resp 18; Pulse Ox 95% on R/A; eh3 20:00 BP 141 / 94; Pulse 75; Resp 11; Pulse Ox 92% on R/A; eh3 16:54 Body Mass Index 42.44 (122.92 kg, 170.18 cm) [facility] ED Course: 16:39 Patient arrived in ED. am2 16:40 VIKKI STRAUSS is Private Physician. am2 16:44 Oriana Mathew FNP-C is [facility]. snw 16:44 Raul Gresham DO is Attending Physician. snw 17:01 Triage completed. 5 17:01 Arm band placed on right wrist. jh5 17:10 Patient has correct armband on for positive identification. Bed in low position. Call [facility] light in reach. Side rails up X2. Client placed on continuous cardiac and pulse oximetry monitoring. NIBP monitoring applied. Door closed. Noise minimized. 17:11 Urine collected: clean catch specimen, clear. tm3 17:28 Initial lab(s) drawn, by me, sent to lab. COVID swab sent to lab. Flu and/or RSV swab tm3 sent to lab. 17:33 Debbie Henriquez, RN is Primary Nurse. eh3 17:42 EKG done, by ED staff. tm3 17:45 Inserted saline lock: 22 gauge in right antecubital area, using aseptic technique. eh3 Blood collected. 18:14 XRAY Chest (1 view) In Process Unspecified. EDMS 21:06 No provider procedures requiring assistance completed. IV discontinued, intact, eh3 bleeding controlled, No redness/swelling at site. Pressure dressing applied. Administered Medications: 17:50 Drug: Insulin Regular Human 5 units {Co-Signature: ss (Jazmin Eason RN).} Route: eh3 Sub-Q; Site: left lower abdomen; 20:59 Follow up: Response: No adverse reaction 3 17:50 Drug: Insulin Regular Human 5 units {Co-Signature: ss (Jazmin Eason RN).} Route: IVP; 3 Site: right antecubital; 21:00 Follow up: Response: No adverse reaction 3 17:50 Drug: NS 0.9% 1000 ml Route: IV; Rate: 125 ml/hr; Site: right antecubital; 3 21:23 Follow up: IV Status: Completed infusion; IV Intake: 1000ml 3 19:32 Drug: Tussionex Pennkinetic ER (chlorpheniramine-hydrocodone) Suspension 5 ml Route: PO;3 20:59 Follow up: Response: No adverse reaction 3 19:32 Drug: NS 0.9% 1000 ml Route: IV; Rate: 1 bolus; Site: right antecubital; 3 21:23 Follow up: IV Status: Completed infusion 3 20:20 Drug: Insulin Regular Human 5 units {Co-Signature: ld1 (Kat Musa RN).} Route: eh3 IVP; Site: Other; 21:23 Follow up: Response: Blood sugar is lowered eh3 Medication: 21:07 VIS not applicable for this client. 3 Point of Care Testing: Blood Glucose: 17:01 Blood Glucose: 455 mg/dL; 5 Ranges: Intake: 21:23 IV: 1000ml; Total: 1000ml. 3 Outcome: 21:02 Discharge ordered by kb 21:24 Patient left the ED. 3 Signatures: Dispatcher [employer] EDMS Franca Lemus FNP-C FNP-Kushal Linda Yassine tm3 Oriana Mathew, HEALTH SERVICES MANAGER-C HEALTH SERVICES MANAGER-Csnw Libra Wiseman am2 Shayy Evangelista, RN RN jh5 Debbie Henriquez RN RN eh3 Jazmin Eason RN ss Kat Musa RN ld1
--- NOTE | 2022-07-26 21:04 | EDPHYS ---
Physician Documentation [facility] Name: Ankita Todd Age: 61 yrs Sex: Female : 1960 Arrival Date: 07/26/2022 Time: 16:39 Bed 23 Private MD: VIKKI STRAUSS ED Physician Raul Gresham HPI: 07/26 17:50 This 61 yrs old Female presents to ER via Ambulatory with complaints of High Blood snw Sugar, Syncope, Doesn't Feel Right. 17:50 The patient or guardian reports generalized fatigue, hyperglycemia, that was snw potentially precipitated by recent influenza. Onset: The symptoms/episode began/occurred acutely. Associated signs and symptoms: Pertinent positives: dry skin, continued cough. Current symptoms: In the emergency department the patient's symptoms are unchanged from the initial presentation. The patient has experienced a previous episode. The patient has been recently seen by a physician: the patient's primary care provider. Historical: - Allergies: 17:01 Benadryl; jh5 17:01 Diflucan; jh5 17:01 Morphine (Doesn't Work); jh5 17:01 Nitrofurantoin Macrocrystal; jh5 17:01 oral antifungals; jh5 17:01 tramadol; jh5 - PMHx: 17:01 Anxiety; Colitis; Diabetes - NIDDM; High Cholesterol; Hypertension; kidney stent; Sleep jh5 Apnea; - Immunization history:: Adult Immunizations up to date. - Social history:: Smoking status: Patient reports the use of cigarette tobacco products, smokes one-half pack cigarettes per day. ROS: 17:49 Constitutional: Negative for fever, chills, and weight loss, Eyes: Negative for injury, snw pain, redness, and discharge, ENT: Negative for injury, pain, and discharge, Neck: Negative for injury, pain, and swelling, Cardiovascular: Negative for chest pain, palpitations, and edema. 17:49 Back: Negative for injury and pain, : Negative for injury, bleeding, discharge, and swelling, MS/Extremity: Negative for injury and deformity, Skin: Negative for injury, rash, and discoloration, Neuro: Negative for headache, weakness, numbness, tingling, and seizure. 17:49 Respiratory: Positive for cough, with no reported sputum. 17:49 Abdomen/GI: Positive for abdominal pain, with cough. Exam: 17:48 Constitutional: This is a well developed, well nourished patient who is awake, alert, snw and in no acute distress. Head/Face: Normocephalic, atraumatic. Eyes: Pupils equal round and reactive to light, extra-ocular motions intact. Lids and lashes normal. Conjunctiva and sclera are non-icteric and not injected. Cornea within normal limits. Periorbital areas with no swelling, redness, or edema. 17:48 Neck: Trachea midline, no thyromegaly or masses palpated, and no cervical lymphadenopathy. Supple, full range of motion without nuchal rigidity, or vertebral point tenderness. No Meningismus. Chest/axilla: Normal chest wall appearance and motion. Nontender with no deformity. No lesions are appreciated. Cardiovascular: Regular rate and rhythm with a normal S1 and S2. No gallops, murmurs, or rubs. Normal PMI, no JVD. No pulse deficits. Abdomen/GI: Soft, non-tender, with normal bowel sounds. No distension or tympany. No guarding or rebound. No evidence of tenderness throughout. 17:48 Back: No spinal tenderness. No costovertebral tenderness. Full range of motion. Skin: Warm, dry with normal turgor. Normal color with no rashes, no lesions, and no evidence of cellulitis. MS/ Extremity: Pulses equal, no cyanosis. Neurovascular intact. Full, normal range of motion. Neuro: Awake and alert, GCS 15, oriented to person, place, time, and situation. Cranial nerves II-XII grossly intact. Motor strength 5/5 in all extremities. Sensory grossly intact. Cerebellar exam normal. Normal gait. Psych: Awake, alert, with orientation to person, place and time. Behavior, mood, and affect are within normal limits. 17:48 ENT: Mouth: Tongue: glossitis, Voice: is normal. 17:48 Respiratory: the patient does not display signs of respiratory distress, Respirations: shallow respirations, that is moderate. 17:48 Abdomen/GI: Inspection: abdomen appears normal, Bowel sounds: normal, Palpation: moderate abdominal tenderness, in all quadrants, in the right upper quadrant. Vital Signs: 16:54 BP 150 / 94; Pulse 89; Resp 18; Temp 98.8; Pulse Ox 98% ; Weight 122.92 kg; Height 5 [facility] ft. 7 in. (170.18 cm); 18:00 BP 139 / 88; Pulse 84; Resp 16; Pulse Ox 98% on R/A; eh3 19:00 BP 132 / 92; Pulse 80; Resp 18; Pulse Ox 95% on R/A; eh3 20:00 BP 141 / 94; Pulse 75; Resp 11; Pulse Ox 92% on R/A; eh3 16:54 Body Mass Index 42.44 (122.92 kg, 170.18 cm) [facility] MDM: 17:07 Patient medically screened. snw 20:11 Data reviewed: vital signs, nurses notes. Data interpreted: Pulse oximetry: on room air snw is 95 %. Interpretation: acceptable. Counseling: I had a detailed discussion with the patient and/or guardian regarding: the historical points, exam findings, and any diagnostic results supporting the discharge/admit diagnosis, lab results, radiology results, the need for outpatient follow up, to return to the emergency department if symptoms worsen or persist or if there are any questions or concerns that arise at home. Special discussion: Pt finished Levaquin and Prednisone in the past week.. 07/26 16:45 Order name: Urine Culture snw 07/26 16:45 Order name: Urine Microscopic Only; Complete Time: 17:35 snw 07/26 17:09 Order name: Basic Metabolic Panel; Complete Time: 19:23 snw 07/26 17:09 Order name: CBC with Diff; Complete Time: 17:39 snw 07/26 17:09 Order name: LFT's; Complete Time: 19:23 snw 07/26 17:09 Order name: Magnesium; Complete Time: 19:23 snw 07/26 17:09 Order name: NT PRO-BNP; Complete Time: 19:23 snw 07/26 17:09 Order name: PT-INR; Complete Time: 17:43 snw 07/26 17:09 Order name: Troponin HS; Complete Time: 19:23 snw 07/26 17:09 Order name: COVID-19/FLU A+B; Complete Time: 18:01 snw 07/26 17:11 Order name: Glucose, Ancillary Testing; Complete Time: 17:20 EDMS 07/26 17:11 Order name: Urine Dipstick-Ancillary; Complete Time: 17:20 EDMS 07/26 20:01 Order name: Glucose, Ancillary Testing; Complete Time: 20:10 EDMS 07/26 21:08 Order name: Glucose, Ancillary Testing EDAR 07/26 16:45 Order name: Urine Dipstick-Ancillary (obtain specimen); Complete Time: 18:00 snw 07/26 16:46 Order name: FSBS; Complete Time: 17:34 snw 07/26 17:09 Order name: XRAY Chest (1 view); Complete Time: 18:21 snw 07/26 17:09 Order name: Cardiac monitoring; Complete Time: 17:34 snw 07/26 17:09 Order name: EKG - Nurse/Tech; Complete Time: 18:00 snw 07/26 17:09 Order name: IV Saline Lock; Complete Time: 18:00 snw 07/26 17:09 Order name: Labs collected and sent; Complete Time: 17:33 snw 07/26 17:09 Order name: O2 Per Protocol; Complete Time: 17:33 snw 07/26 17:09 Order name: O2 Sat Monitoring; Complete Time: 17:33 snw 07/26 17:44 Order name: Labs - recollect needed: recollect light green top; Complete Time: 18:55 bd 07/26 20:45 Order name: Blood Glucose Level; Complete Time: 20:59 kb EC:47 Rate is 77 beats/min. Rhythm is regular. T waves are Inverted in lead aVR. Clinical snw impression: NSR w/ Non-specific ST/T Changes. Administered Medications: 17:50 Drug: Insulin Regular Human 5 units {Co-Signature: fredy (Jazmin Eason RN).} Route: eh3 Sub-Q; Site: left lower abdomen; 20:59 Follow up: Response: No adverse reaction [facility] 17:50 Drug: Insulin Regular Human 5 units {Co-Signature: fredy (Jazmin Eason RN).} Route: IVP; [facility] Site: right antecubital; 21:00 Follow up: Response: No adverse reaction [facility] 17:50 Drug: NS 0.9% 1000 ml Route: IV; Rate: 125 ml/hr; Site: right antecubital; [facility] 21:23 Follow up: IV Status: Completed infusion; IV Intake: 1000ml [facility] 19:32 Drug: Tussionex Pennkinetic ER (chlorpheniramine-hydrocodone) Suspension 5 ml Route: PO;3 20:59 Follow up: Response: No adverse reaction 3 19:32 Drug: NS 0.9% 1000 ml Route: IV; Rate: 1 bolus; Site: right antecubital; 3 21:23 Follow up: IV Status: Completed infusion 3 20:20 Drug: Insulin Regular Human 5 units {Co-Signature: ld1 (Kat Musa RN).} Route: eh3 IVP; Site: Other; 21:23 Follow up: Response: Blood sugar is lowered [facility] Point of Care Testing: Blood Glucose: 17:01 Blood Glucose: 455 mg/dL; 5 Ranges: Critical Glucose Levels:Adult <50 mg/dl or >400 mg/dl <40 mg/dl or >180 mg/dl Disposition: 18:47 Co-signature as Attending Physician, Raul Gresham DO I was immediately available onsite ms3 in the emergency department for consultation in the care of the patient. Disposition Summary: 07/26/22 21:02 Discharge Ordered Location: Home kb Condition: Stable kb Diagnosis - Dehydration kb - Diabetes mellitus due to underlying condition with hyperglycemia kb Followup: snw - With: Emergency Department - When: As needed - Reason: Worsening of condition Followup: snw - With: Private Physician - When: 2 - 3 days - Reason: Recheck today's complaints, Continuance of care, Re-evaluation by your physician Discharge Instructions: - Discharge Summary Sheet snw - Dehydration, Adult snw - Diabetes Mellitus and Sick Day Management snw - Form - Daily Diabetes Record snw - Blood Glucose Monitoring, Adult snw - Rehydration, Adult snw Forms: - Medication Reconciliation Form kb - Thank You Letter kb - Antibiotic Education kb - Prescription Opioid Use kb Prescriptions: - promethazine 25 mg Oral Tablet - take 1 tablet by ORAL route every 6 hours As needed; 20 tablet; Refills: 0, snw Product Selection Permitted Signatures: Dispatcher [employer] EDFranca Guevara, KAYLA REYNOLDS-Wendy Gutierrez Shelly, FNP-C FNP-Raul Perrin DO DO ms3 Shayy Evangelista RN RN 5 Debbie Henriquez RN RN 3 Jazmin Eason RN Kat Dibbern RN ld1
[2022-07-26 21:33] VITALS: TEMP 98.8
[2022-07-26 21:51] VITALS: BP 141/94; O2SAT 92
--- NOTE | 2022-07-28 08:08 | EKG ---
Test Date: 2022-07-26 Test Time: 17:42:08 Transportation Superintendent: TM MEASUREMENT RESULTS: Intervals: Rate: 77 IA: 152 QRSD: 84 QT: 390 QTc: 441 [place]: P: 44 IA: 152 QRS: -35 T: 46 INTERPRETIVE STATEMENTS: Normal sinus rhythm Possible Left atrial enlargement Left axis deviation Left ventricular hypertrophy Abnormal ECG Compared to ECG 03/08/2021 11:45:59 Left-axis deviation now present Sinus bradycardia no longer present Electronically Signed On 07-28-22 08:02:21 TECHNICAL DIRECTOR by Eliecer Hidalgo
== END 2022-07-26 21:24 | disposition home or self-care (01) ==
LOC: ER 16:36
DX: E86.0 Dehydration (principal); E11.65 Type 2 diabetes mellitus with hyperglycemia; I10 Essential (primary) hypertension; F17.210 Nicotine dependence, cigarettes, uncomplicated; Z88.3 Allergy status to other anti-infective agents; Z88.5 Allergy status to narcotic agent; Z88.8 Allergy status to other drugs, medicaments and biological substances; Z20.822 Contact with and (suspected) exposure to COVID-19
CPT/HCPCS: 93005; 87088; 85025; 87086; 80048; 36415; 83735; 85610; 82947 ×3; 80076; 84484; 83880; 0240U; 71045; 96372; 99284; J1815 ×2; J7030; 81003; 81015

== ENCOUNTER 2023-03-19 09:50 | Emergency (ER) | payer BC, OTHER ==
--- OUTSIDE RECORDS SUMMARY | 2023-03-19 10:03 | XMS REPORT | Continuity of Care Document ---
:1960 Author Organization [facility] t Address [address] [facility] [address] [place] [address] Care Team Providers Name Role Phone Obed Strauss Primary Care Physician ISABEL MARKS DIRECTOR SEMICONDUCTOR-C Attending Clinician Unavailable Lab, Ang - Db Attending Clinician Unavailable Monika Flemingica Attending Clinician GIRISH LOAIZA Attending Clinician Unavailable GIRISH LOAIZA Attending Clinician Unavailable Girish Loaiza MD Attending Clinician Doctor Unassigned, [place] Attending Clinician Unavailable GUNJAN Attending Clinician Unavailable Gurvinder Thomas Attending Clinician Unavailable Jaylen_[place] Attending Clinician Unavailable АНДРЕЙ LINARES Attending Clinician Unavailable Андрей Linares MD Attending Clinician Pob, Adc Lab Main Attending Clinician Unavailable HILL MCARTHUR Attending Clinician Unavailable Chadd Vicente MD Attending Clinician Hill Mcarthur MD Attending Clinician OBED STRAUSS Attending Clinician Unavailable GREGG PEREZ Attending Clinician Unavailable RAFA THOMAS Attending Clinician Unavailable OTHER, ENTER NAME IN NOTES Attending Clinician Unavailable MANUEL ESCALERA Attending Clinician Unavailable DARIO YOUNGBLOOD Attending Clinician Unavailable JIM VILLATORO Attending Clinician Unavailable MANUEL ESCALERA Attending Clinician Unavailable JESSICA CANDELARIA Attending Clinician Unavailable SARAH CLAIRE Attending Clinician Unavailable AARTI DACOSTA Attending Clinician Unavailable GIRISH LOAIZA Admitting Clinician Unavailable GUNJAN Admitting Clinician Unavailable Krissy Admitting Clinician Unavailable MANUEL ESCALERA Admitting Clinician Unavailable SARA MEJÍA Admitting Clinician Unavailable JESSICA CANDELARIA Admitting Clinician Unavailable SARAH CLAIRE Admitting Clinician Unavailable Payers Payer Name Policy Type Policy Number Effective Date Expiration Date S [place] [id number] 2017 00:00:00 [facility] [employer] [id number] [facility] [id number] [place]ACY [id number] 2016 [facility] [place] 00:00:00 DARS [id number] Problems Condition Condition Condition Status Onset Resolution [...] Medical 00 Group Persistent Persistent Problem Active 2019- M [place] cough Cough 5-13 da 00:00: [...] [place] lesion Lesion 7-09 da 00:00: Medical Group Superficia Superficia Problem Active M [place] [...] Nerve 2-07 da disease Disease 00:00: Medical Group Moderate Moderate Problem Active 2017-08 [place] [...] Sepsis 5-16 da 00:00: Medical 00 Group Severe Severe Disease [facility]ur[facility] sepsis sepsis [facility] Hydronephr Hydronephr Disease Active [facility] osis with osis with 4-17 [facility] renal and renal and 00:00: [facility] ureteral ureteral 00 Center calculous calculous obstructio obstructio n n Type 2 Type 2 Problem Active [place] diabetes Diabetes 3-29 da mellitus Mellitus 00:00: Medica l without without 00 Group complicati Complicati on on Edema Edema Problem Active [place] 3-29 da 00:00: Medical Group Diverticul Diverticul Problem Active [place] itis itis 2-27 da 00:00: Medical Group Lethargy Lethargy Problem Active [place] 1- da 00:00: Medical Group Complicate Complicate Disease Active 2016-[address] d UTI d UTI 1-04 [facility] (urinary (urinary 00:00: Medica l tract tract 00 Center infection) infection) Ureteropel Ureteropel Disease Active 2016-[address] agustina agustina 0-31 [facility] junction junction 00:00: Medica l (UPJ) (UPJ) 00 Remer obstructio obstructio n, right n, right Urinary [facility] infectious Infectious 00:00: Me dical disease Disease 00 Group Candidiasi Candidiasi Problem Active [place] s of skin s of Skin 8-08 da 00:00: Medical 00 Group 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 00:00: Medical Group Colonic Colonic Disease Active [facility] fistula fistula 7 [facility] Center Controlled Controlled Disease Recurre [facility] type 2 type 2 nce 7 [facility] diabetes diabetes 00:00: Medica l mellitus mellitus 00 Center without without complicati complicati on, on, without without long-term long-term current current use of use of insulin insulin Occluded Occluded Disease Recurre [facility] PICC line, PICC line, nce 7- Ariana kes initial initial 00:00: Medical encounter encounter 00 Cent er Hypertensi Hypertensi Disease Active [facility] on, on, 03-03 [facility] essential essential 00:00: Medi remedios 00 Center Slow Slow Disease Active [facility]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 7-21 [facility] constipati constipati 00:00: Me dical on Center Pyelonephr Pyelonephr Disease Active [facility] itis itis 7-20 [facility] 00:[facility]: Medical 00 Center Chronic Chronic Problem Active [place] kidney Kidney 6-29 da disease Disease 00:00: Medical 00 Group Acute Acute Disease Recurre [facility] postoperat postoperat nce 6-13 Ariana kes melida melida 00:00: Medical respirator respirator 00 Ce nter [...] [place] anxiety Anxiety 2-16 da 00:00: Medical Group Essential Essential Problem Active [place] hypertensi Hypertensi 1-30 da on on 00:00: Medical 00 Group Flank pain Flank pain Disease Active [facility] 6-16 [facility] 00:00: Medical 00 Remer Hydronephr Hydronephr Disease Active [facility] osis, left osis, left 5-17 Ariana kes 00:00: Medical 00 Remer UPJ UPJ Disease Active [facility] obstructio obstructio 5-17 Ariana kes n, n, 00:00: Medical acquired acquired 00 Center Pelvic Pelvic Disease Active [facility] mass mass 5-17 [facility] 00:[facility] Center Morbid Morbid Disease Active [facility] obesity obesity 5-17 [facility] 00:00: Medical 00 Remer Fatty Fatty Disease Active [facility] liver liver 5-17 [facility] 00:00: Medical 00 Remer Tobacco Tobacco Disease Active [facility] use use 5-17 [facility] 00:00: Medical 00 Center No known No known Disease Unive rs active active ity of problems problems [place] [facility] Allergies, Adverse Reactions, Alerts Allergy Allergy Status Severity Reaction(s) Onset Inactive Treating Comm ents Source Name Type Date Date Clinician No Known DA Active U [facility] Drug 4-16 Allergie 00:00: s 00 Miconazo Propensi Active Other - See Patient Univers le ty to comments 2-05 states ity of Nitrate adverse 00:00: she [place] reaction 00 cannot Medical s have any Branch Anti fungal medicatio n unless given via IV MICONAZO DRUG Active High Other-Cmnt Univ ers LE INGREDI 2-05 ity of NITRATE 00:00: [place] 00 Medical Branch DIPHENHY DRUG Active High Anaphylaxis Uni vers DRAMINE INGREDI 2-05 ity of HCL 00:00: [place] 00 Medical Branch MEPERIDI DRUG Active High Other-Cmnt Univ ers NE HCL INGREDI 2-05 ity of 00:00: [place] 00 Medical Branch MORPHINE DRUG Active High Other-Cmnt Univ ers INGREDI 2-05 ity of 00:00: [place] 00 Medical Branch Diphenhy Propensi Active Anaphylaxis U [...] with oral per her pt MPOA Kiara Harmony Miconazo Propensi Active Itching [facility] ty to 7-10 [facility] Nitrate adverse 00:00: Medical reaction 00 Center s Diphenhy Propensi Active Other (See Patient [facility] dramine ty to Comments), 7 states [facility] Hcl adverse Anaphylaxis 00:00: her Medi remedios reaction 00 throat Center s "closes up"Halluc inations. Meperidi Propensi Active Other (See Numbness [facility] ne ty to Comments) 7-10 per [facility] adverse 00:00: patient Medical reaction 00 Pt Center s becomes aggressiv e Tramadol Propensi Active Other (See Paranoia; [facility] ty to Comments) 6-05 nightmare Luke s adverse 00:00: s Medical reaction 00 Center s Morphine Drug Active Aggressiv [facility] t Intolera 5 enessSeve [facility] nce 00:00: re Medical 00 vomiting Center Benadryl Allergy Active [place] [facility] Medical e Group Demerol Allergy Active [place] [facility] Medical e Group Diflucan Allergy Active Hives [place] [facility] Medical e Group Morphine Allergy Active [place] to [facility] Medical e Group Family History Family Member Diagnosis Comments Start Date Stop Date Source Natural brother Heart disease [facility] Maternal grandfather Cancer [facility] Maternal uncle Heart disease [facility] Natural mother Heart disease [facility] Social History Social Habit Start Date Stop Date Quantity Comments Source History of tobacco Smokes tobacco Un iversity of use daily [facility] Exposure to 2022-06-14 2022-06-24 Not sure University of SARS-CoV-2 (event) 00:00:00 08:10:00 [facility] Alcohol intake 2017-12-01 2017-12-01 [facility] non-drinker of Medical Ce nter alcohol (finding) Cigarettes smoked 2017-01-16 2017-01-16 YANELY Espinosa current (pack per 00:00:00 00:00:00 Medical Center day) - Reported Cigarette 2017-01-16 2017-01-[address] [facility] pack-years 00:00:00 00:00:00 [facility] Tobacco use and 2015-12-29 2015-12-[address] [facility] Ariana castillo exposure 00:00:00 00:00:00 [facility] Sex Assigned At [address] [facility] [address] skinny 00:00:00 00:00:00 Medical Center Smoking Status Start Date Stop Date Source Heavy Tobacco Smoker [facility] Smokes tobacco daily 2018-09-19 00:00:00 Univers ity of [facility] Medications Ordered Filled Start Stop Current Ordering Indication Dosage Frequency Signature Comments Components Source Medication Medication Date Date Medication? Clinician (SIG) Name Name heather Yes TAKE ONE Un kar[place] -hydrochlor 9-10 (1) ity of othiazid 00:00: [place] 37[place] 00 BY MOUTH Medic al tablet DAILY IN [place] THE MORNING. triamterene Yes TAKE ONE Un karsten -hydrochlor 9-10 (1) ity of othiazid 00:00: TABLET(S[place] 37.5-25 mg 00 BY MOUTH Medic al tablet DAILY IN [place] THE MORNING. triamterene Yes TAKE ONE Un karsten -hydrochlor 9-10 (1) ity of othiazid 00:00: TABLET(S[place] 37.5-25 mg 00 BY MOUTH Medic al tablet DAILY IN [place] THE MORNING. triamterene Yes TAKE ONE Un kar[place] -hydrochlor 9-10 (1) ity of othiazid 00:00: TABLET(S[place] 37.5-25 mg 00 BY MOUTH Medic al tablet DAILY IN [place] THE MORNING. triamterene Yes TAKE ONE Un kar[place] -hydrochlor 9-10 (1) ity of othiazid 00:00: TABLET(S) [place] 37.5-25 mg 00 BY MOUTH Medic al tablet DAILY IN [place] THE MORNING. triamterene Yes TAKE ONE Un kar[place] -hydrochlor 9-10 (1) ity of othiazid 00:00: TABLET(S) [place] 37.5-25 mg 00 BY MOUTH Medic al tablet DAILY IN [place] THE MORNING. triamterene Yes TAKE ONE Un kar[place] -hydrochlor 9-10 (1) ity of othiazid 00:00: TABLET(S) [place] 37.5-25 mg 00 BY MOUTH Medic al tablet DAILY IN [place] THE MORNING. Doxepin 3 Yes 1{tbl} Take 1 Univ ers mg Tab 8-29 tablet by ity of 00:00: mouth at [place] [address] bedtime. Medical Branch Doxepin 3 2021-0 Yes 1{tbl} Take 1 Univ ers mg Tab 8-29 tablet by ity of 00:00: mouth at [place] [address] bedtime. Medical Branch Doxepin 3 2021-0 Yes 1{tbl} Take 1 Univ ers mg Tab 8-29 tablet by ity of 00:00: mouth at [place] [address] bedtime. Medical Branch Doxepin 3 2021-0 Yes 1{tbl} Take 1 Univ ers mg Tab 8-29 tablet by ity of 00:00: mouth at [place] [address] bedtime. Medical Branch Doxepin 3 2021-0 Yes 1{tbl} Take 1 Univ ers mg Tab 8-29 tablet by ity of 00:00: mouth at [place] [address] bedtime. Medical Branch Doxepin 3 Yes 1{tbl} Take 1 Univ ers mg Tab 8-29 tablet by ity of 00:00: mouth at [place] [address] bedtime. Medical Branch Doxepin 3 2021- Yes 1{tbl} Take 1 Univ ers mg Tab 8-29 tablet by ity of 00:00: mouth at [place] [address] bedtime. Medical Branch nystatin 2021-0 Yes SWISH SIX Univ ers 100,000 7-27 (6) ML(S) ity of unit/mL 00:00: HOLD IN [place] suspension 00 MOUTH, Medical THEN Branch SWALLOW, FOUR TIMES DAILY FOR TEN DAYS. nystatin 2021-0 Yes SWISH SIX Univ ers [...] FOUR TIMES DAILY FOR TEN DAYS. nystatin 0 Yes SWISH SIX Univ ers 100,000 7-27 (6) ML(S) ity of unit/mL 00:00: HOLD IN [place] suspension 00 MOUTH, Medical THEN Branch SWALLOW, FOUR TIMES DAILY FOR TEN DAYS. nystatin 2021-0 Yes SWISH SIX Univ ers [...] 7-15 NARES ity of 00:00: TWICE A [place] 00 DAY. Medical Branch mupirocin 2 Yes APPLY TO Un karsten % ointment 7-15 NARES ity of 00:00: TWICE A [place] 00 DAY. Medical Branch mupirocin 2 0 Yes APPLY TO Un karsten % ointment 7-15 NARES ity of 00:00: TWICE A [place] 00 DAY. Medical Branch mupirocin 2 0 Yes APPLY TO Un karsten % ointment 7-15 NARES ity of 00:00: TWICE A [place] 00 DAY. Medical Branch mupirocin 2 0 Yes APPLY TO Un karsten % ointment 7-15 NARES ity of 00:00: TWICE A [place] 00 DAY. Medical Branch mupirocin 2 2021-0 Yes APPLY TO Un karsten % ointment 7-15 NARES ity of 00:00: TWICE A [place] 00 DAY. Medical Branch gadoteridol 2019-08 2020- No .2mL/kg 0.2 mL/kg, Univers (PROHANCE-2 08-13 Intravenou i ty of 0 mL) 17:00: 17:32 s, ONCE, 1 [place] injection 00 :00 dose, Korin Medic al 0.2 mL/kg 08/13/20 Branch at 1100, Routine METFORMIN 2019- Yes [id number] TAKE ONE Univers ER 750 mg 7-02 (1) ity of 24 hr 00:00: TABLET(S) [place] tablet 00 BY MOUTH Medical ONCE A DAY Branch WITH BREAKFAST. METFORMIN 2020-0 Yes [id number] TAKE ONE Univers ER 750 mg 7-02 (1) ity of 24 hr 00:00: TABLET(S) [place] tablet 00 BY MOUTH Medical ONCE A DAY Branch WITH BREAKFAST. METFORMIN 2020-0 Yes [id number] TAKE ONE Univers ER 750 mg 7-02 (1) ity of 24 hr 00:00: TABLET(S) [place] tablet 00 BY MOUTH Medical ONCE A DAY Branch WITH BREAKFAST. METFORMIN 2020-0 Yes [id number] TAKE ONE Univers ER 750 mg 7-02 (1) ity of 24 hr 00:00: TABLET(S) [place] tablet 00 BY MOUTH Medical ONCE A DAY Branch WITH BREAKFAST. METFORMIN 2020-0 Yes [id number] TAKE ONE Univers ER 750 mg 7-02 (1) ity of 24 hr 00:00: TABLET(S) [place] tablet 00 BY MOUTH Medical ONCE A DAY Branch WITH BREAKFAST. METFORMIN 2020-0 Yes [id number] TAKE ONE Univers ER 750 mg 7-02 (1) ity of 24 hr 00:00: TABLET(S) [place] tablet 00 BY MOUTH Medical ONCE A DAY Branch WITH BREAKFAST. METFORMIN 2020-0 Yes [id number] TAKE ONE Univers ER 750 mg 7-02 (1) ity of 24 hr 00:00: TABLET(S) [place] tablet 00 BY MOUTH Medical ONCE A DAY Branch WITH BREAKFAST. METFORMIN 2020-0 Yes [id number] TAKE ONE Univers ER 750 mg 7-02 (1) ity of 24 hr 00:00: TABLET(S) [place] tablet 00 BY MOUTH Medical ONCE A DAY Branch WITH BREAKFAST. METFORMIN 2020-0 Yes [id number] TAKE ONE Univers ER 750 mg 7-02 (1) ity of 24 hr 00:00: TABLET(S) [place] tablet 00 BY MOUTH Medical ONCE A DAY Branch WITH BREAKFAST. METFORMIN 2020-0 Yes [id number] TAKE ONE Univers ER 750 mg 7-02 (1) ity of 24 hr 00:00: TABLET(S) [place] tablet 00 BY MOUTH Medical ONCE A DAY Branch WITH BREAKFAST. METFORMIN 2020-0 Yes [id number] TAKE ONE Univers ER 750 mg 7-02 (1) ity of 24 hr 00:00: TABLET(S) [place] tablet 00 BY MOUTH Medical ONCE A DAY Branch WITH BREAKFAST. METFORMIN 2020-0 Yes [id number] TAKE ONE Univers ER 750 mg 7-02 (1) ity of 24 hr 00:00: TABLET(S) [place] tablet 00 BY MOUTH Medical ONCE A DAY Branch WITH BREAKFAST. METFORMIN 2020-0 Yes [id number] TAKE ONE Univers ER 750 mg 7-02 (1) ity of 24 hr 00:00: TABLET(S) [place] tablet 00 BY MOUTH Medical ONCE A DAY Branch WITH BREAKFAST. METFORMIN 2020-0 Yes [id number] TAKE ONE Univers ER 750 mg 7-02 (1) ity of 24 hr 00:00: TABLET(S) [place] tablet 00 BY MOUTH Medical ONCE A DAY Branch WITH BREAKFAST. METFORMIN 2020-0 Yes [id number] TAKE ONE Univers ER 750 mg 7-02 (1) ity of 24 hr 00:00: TABLET(S) [place] tablet 00 BY MOUTH Medical ONCE A DAY Branch WITH BREAKFAST. METFORMIN 2020-0 Yes [id number] TAKE ONE Univers ER 750 mg 7-02 (1) ity of 24 hr 00:00: TABLET(S) [place] tablet 00 BY MOUTH Medical ONCE A DAY Branch WITH BREAKFAST. METFORMIN 2020-0 Yes [id number] TAKE ONE Univers ER 750 mg 7-02 (1) ity of 24 hr 00:00: TABLET(S) [place] tablet 00 BY MOUTH Medical ONCE A DAY Branch WITH BREAKFAST. METFORMIN 2020-0 Yes [id number] TAKE ONE Univers ER 750 mg 7-02 (1) ity of 24 hr 00:00: TABLET(S) [place] tablet 00 BY MOUTH Medical ONCE A DAY Branch WITH BREAKFAST. METFORMIN 2020-0 Yes [id number] TAKE ONE Univers ER 750 mg 7-02 (1) ity of 24 hr 00:00: TABLET(S) [place] tablet 00 BY MOUTH Medical ONCE A DAY Branch WITH BREAKFAST. METFORMIN 2020-0 Yes [id number] TAKE ONE Univers ER 750 mg 7-02 (1) ity of 24 hr 00:00: TABLET(S) [place] tablet 00 BY MOUTH Medical ONCE A DAY Branch WITH BREAKFAST. EZETIMIBE 2020-0 Yes [id number] TAKE ONE Univers 10 mg 5-04 (1) ity of tablet 00:00: TABLET(S) [place] 00 BY MOUTH Medical ONCE A Branch DAY. EZETIMIBE 2020-0 Yes [id number] TAKE ONE Univers 10 mg 5-04 (1) ity of tablet 00:00: TABLET(S) [place] 00 BY MOUTH Medical ONCE A Branch DAY. EZETIMIBE 2020-0 Yes [id number] TAKE ONE Univers 10 mg 5-04 (1) ity of tablet 00:00: TABLET(S) [place] 00 BY MOUTH Medical ONCE A Branch DAY. EZETIMIBE 2020-0 Yes [id number] TAKE ONE Univers 10 mg 5-04 (1) ity of tablet 00:00: TABLET(S) [place] 00 BY MOUTH Medical ONCE A Branch DAY. EZETIMIBE 2020-0 Yes [id number] TAKE ONE Univers 10 mg 5-04 (1) ity of tablet 00:00: TABLET(S) [place] 00 BY MOUTH Medical ONCE A Branch DAY. EZETIMIBE 2020-0 Yes [id number] TAKE ONE Univers 10 mg 5-04 (1) ity of tablet 00:00: TABLET(S) [place] 00 BY MOUTH Medical ONCE A Branch DAY. EZETIMIBE 2020-0 Yes [id number] TAKE ONE Univers 10 mg 5-04 (1) ity of tablet 00:00: TABLET(S) 00 BY MOUTH Medical ONCE A Branch DAY. EZETIMIBE 2020-0 Yes [id number] TAKE ONE Univers 10 mg 5-04 (1) ity of tablet 00:00: TABLET(S) 00 BY MOUTH Medical ONCE A Branch DAY. EZETIMIBE 2020-0 Yes [id number] TAKE ONE Univers 10 mg 5-04 (1) ity of tablet 00:00: TABLET(S) 00 BY MOUTH Medical ONCE A Branch DAY. EZETIMIBE 2020-0 Yes [id number] TAKE ONE Univers 10 mg 5-04 (1) ity of tablet 00:00: TABLET(S) 00 BY MOUTH Medical ONCE A Branch DAY. EZETIMIBE 2020-0 Yes [id number] TAKE ONE Univers 10 mg 5-04 (1) ity of tablet 00:00: TABLET(S) 00 BY MOUTH Medical ONCE A Branch DAY. EZETIMIBE 2020-0 Yes [id number] TAKE ONE Univers 10 mg 5-04 (1) ity of tablet 00:00: TABLET(S) [place] 00 BY MOUTH Medical ONCE A Branch DAY. EZETIMIBE 2020-0 Yes [id number] TAKE ONE Univers 10 mg 5-04 (1) ity of tablet 00:00: TABLET(S) [place] 00 BY MOUTH Medical ONCE A Branch DAY. EZETIMIBE 2020-0 Yes [id number] TAKE ONE Univers 10 mg 5-04 (1) ity of tablet 00:00: TABLET(S) [place] 00 BY MOUTH Medical ONCE A Branch DAY. EZETIMIBE 2020-0 Yes [id number] TAKE ONE Univers 10 mg 5-04 (1) ity of tablet 00:00: TABLET(S) [place] 00 BY MOUTH Medical ONCE A Branch DAY. EZETIMIBE 2020-0 Yes [id number] TAKE ONE Univers 10 mg 5-04 (1) ity of tablet 00:00: TABLET(S) [place] 00 BY MOUTH Medical ONCE A Branch DAY. EZETIMIBE 2020-0 Yes [id number] TAKE ONE Univers 10 mg 5-04 (1) ity of tablet 00:00: TABLET(S) 00 BY MOUTH Medical ONCE A Branch DAY. EZETIMIBE 2020-0 Yes [id number] TAKE ONE Univers 10 mg 5-04 (1) ity of tablet 00:00: TABLET(S) 00 BY MOUTH Medical ONCE A Branch DAY. EZETIMIBE 2020-0 Yes [id number] TAKE ONE Univers 10 mg 5-04 (1) ity of tablet 00:00: TABLET(S) 00 BY MOUTH Medical ONCE A Branch DAY. EZETIMIBE 2020-0 Yes [id number] TAKE ONE Univers 10 mg 5-04 (1) ity of tablet 00:00: TABLET(S) [place] 00 BY MOUTH Medical ONCE A Branch DAY. EZETIMIBE 2020-0 Yes [id number] TAKE ONE Univers 10 mg 5-04 (1) ity of tablet 00:00: TABLET(S) [place] 00 BY MOUTH Medical ONCE A Branch DAY. METFORMIN 2020-0 Yes [id number] TAKE ONE Univers ER 750 mg 4-03 (1) ity of 24 hr 00:00: TABLET(S) [place] tablet 00 BY MOUTH Medical ONCE A DAY Branch WITH BREAKFAST. METFORMIN 2020-0 Yes [id number] TAKE ONE Univers ER 750 mg 4-03 (1) ity of 24 hr 00:00: TABLET(S) [place] tablet 00 BY MOUTH Medical ONCE A DAY Branch WITH BREAKFAST. METFORMIN 2020-0 2020- No [id number] TAKE ONE Univers ER 750 mg 4-03 07-02 (1) ity of 24 hr 00:00: 00:00 TABLET(S) [place] tablet 00 :00 BY MOUTH Medical ONCE A DAY Branch WITH BREAKFAST. METFORMIN 2019-0 2020- No [id number] TAKE ONE Univers ER 750 mg 11-14 (1) ity of 24 hr 00:00: 00:00 TABLET(S) [place] tablet 00 :00 BY MOUTH Medical ONCE A DAY [place] WITH BREAKFAST. dulaglutide 2018-08 Yes [id number] .75mg inject Univers (TRULICITY) 2-06 0.75 mg ity o f 0.75 mg/0.5 00:00: under the [place] mL PnIj 00 skin Medical weekly. Branch dulaglutide 2018-08 Yes [id number] .75mg inject Univers (TRULICITY) 2-06 0.75 mg ity o f 0.75 mg/0.5 00:00: under the [place] mL PnIj 00 skin Medical weekly. Branch dulaglutide 2018-08 Yes [id number] .75mg inject Univers (TRULICITY) 2-06 0.75 mg ity o f 0.75 mg/0.5 00:00: under the [place] mL PnIj 00 skin Medical weekly. Branch dulaglutide 2018-08 Yes [id number] .75mg inject Univers (TRULICITY) 2-06 0.75 mg ity o f 0.75 mg/0.5 00:00: under the [place] mL PnIj 00 skin Medical weekly. Branch dulaglutide 2018-08 Yes [id number] .75mg inject Univers (TRULICITY) 2-06 0.75 mg ity o f 0.75 mg/0.5 00:00: under the [place] mL PnIj 00 skin Medical weekly. Branch dulaglutide 2018-08 Yes [id number] .75mg inject Univers (TRULICITY) 2-06 0.75 mg ity o f 0.75 mg/0.5 00:00: under the [place] mL PnIj 00 skin Medical weekly. Branch dulaglutide 2018-08 Yes [id number] .75mg inject Univers (TRULICITY) 2-06 0.75 mg ity o f 0.75 mg/0.5 00:00: under the [place] mL PnIj 00 skin Medical weekly. Branch dulaglutide 2018-08 Yes [id number] .75mg inject Univers (TRULICITY) 2-06 0.75 mg ity o f 0.75 mg/0.5 00:00: under the [place] mL PnIj 00 skin Medical weekly. Branch dulaglutide 2018-08 Yes [id number] .75mg inject Univers (TRULICITY) 2-06 0.75 mg ity o f 0.75 mg/0.5 00:00: under the [place] mL PnIj 00 skin Medical weekly. Branch dulaglutide 2018-08 Yes [id number] .75mg inject Univers (TRULICITY) 2-06 0.75 mg ity o f 0.75 mg/0.5 00:00: under the [place] mL PnIj 00 skin Medical weekly. Branch dulaglutide 2018-08 Yes [id number] .75mg inject Univers (TRULICITY) 2-06 0.75 mg ity o f 0.75 mg/0.5 00:00: under the [place] mL PnIj 00 skin Medical weekly. Branch dulaglutide 2018-08 Yes [id number] .75mg inject Univers (TRULICITY) 2-06 0.75 mg ity o f 0.75 mg/0.5 00:00: under the [place] mL PnIj 00 skin Medical weekly. Branch dulaglutide 2018-08 Yes [id number] .75mg inject Univers (TRULICITY) 2-06 0.75 mg ity o f 0.75 mg/0.5 00:00: under the [place] mL PnIj 00 skin Medical weekly. Branch dulaglutide 2018-08 Yes [id number] .75mg inject Univers (TRULICITY) 2-06 0.75 mg ity o f 0.75 mg/0.5 00:00: under the [place] mL PnIj 00 skin Medical weekly. Branch dulaglutide 2018-08 Yes [id number] .75mg inject Univers (TRULICITY) 2-06 0.75 mg ity o f 0.75 mg/0.5 00:00: under the [place] mL PnIj 00 skin Medical weekly. Branch dulaglutide 2018- Yes [id number] .75mg inject Univers (TRULICITY) 2-06 0.75 mg ity o f 0.75 mg/0.5 00:00: under the [place] mL PnIj 00 skin Medical weekly. Branch dulaglutide 2018-08 Yes [id number] .75mg inject Univers (TRULICITY) 2-06 0.75 mg ity o f 0.75 mg/0.5 00:00: under the [place] mL PnIj 00 skin Medical weekly. Branch dulaglutide 2018-08 Yes [id number] .75mg inject Univers (TRULICITY) 2-06 0.75 mg ity o f 0.75 mg/0.5 00:00: under the [place] mL PnIj 00 skin Medical weekly. Branch dulaglutide 2018-08 Yes [id number] .75mg inject Univers (TRULICITY) 2-06 0.75 mg ity o f 0.75 mg/0.5 00:00: under the [place] mL PnIj 00 skin Medical weekly. Branch ezetimibe 2018-08 Yes [id number] 10mg Take 1 U nivers 10 mg 2-06 tablet by ity of tablet 00:00: mouth [place] 00 daily. Medical Branch dulaglutide 2018-08 Yes [id number] .75mg inject Univers (TRULICITY) 2-06 0.75 mg ity o f 0.75 mg/0.5 00:00: under the [place] mL PnIj 00 skin Medical weekly. Branch dulaglutide 2018-08 Yes [id number] .75mg inject Univers (TRULICITY) 2-06 0.75 mg ity o f 0.75 mg/0.5 00:00: under the [place] mL PnIj 00 skin Medical weekly. Branch dulaglutide 2018-08 Yes [id number] .75mg inject Univers (TRULICITY) 2-06 0.75 mg ity o f 0.75 mg/0.5 00:00: under the [place] mL PnIj 00 skin Medical weekly. Branch ezetimibe 2018-08 2020- No [id number] 10mg Take 1 Univers 10 mg 09-19 05-04 tablet by ity of tablet 00:00: 00:00 mouth [place] 00 :00 daily. Medical Branch metformin 2018-08 2020- No [id number] 750mg Take 1 Univers ER 750 mg 09-19 04-03 tablet by ity of 24 hr [...] directed, ity o f LANCET) 00:00: TID, [place] Misc DX:E11.9 Medical Branch blood sugar 2019-0 [...] directed, ity o f LANCET) 00:00: TID, [place] Misc DX:E11.9 Medical Branch blood sugar 2019-0 [...] Misc 00 DX:E11.9 Medical Branch blood sugar 2018-0 Yes Use as Univ ers diagnostic 8-20 directed, ity of (CONTOUR 00:00: TID, [place] NEXT TEST 00 DX:E11.9 Medica l STRIPS) Branch strip Lancets 2018- Yes Use as Univers (MICROLET 8-20 directed, ity o f LANCET) 00:00: [facility], [place] Misc DX:E11.9 Medical Branch blood sugar 2018-0 Yes Use as Univ ers diagnostic 8-20 directed, ity of (CONTOUR 00:00: TID, [place] NEXT TEST 00 DX:E11.9 Medica l STRIPS) Branch strip Lancets 2018-0 Yes Use as Univers (MICROLET 8-20 directed, [...] DX:E11.9 Medica l STRIPS) Branch strip bupropion 2018-0 Yes Take by Unive rs HCl 5-07 mouth. ity of (WELLBUTRIN 16:24: [place] ORAL) 02 Medical Branch bupropion 2018-0 Yes Take by Unive rs HCl 5-07 mouth. ity of (WELLBUTRIN 16:24: [place] ORAL) 02 Medical Branch bupropion 2019-0 Yes Take by Unive rs HCl 5-07 mouth. ity of (WELLBUTRIN 16:24: [place] ORAL) Medical Branch bupropion 2019-0 Yes Take by Unive rs HCl 5-07 mouth. ity of (WELLBUTRIN 16:24: [place] ORAL) Medical Branch bupropion 20190 Yes Take by Unive rs HCl 5-07 mouth. ity of (WELLBUTRIN 16:24: [place] ORAL) Medical Branch bupropion 0 Yes Take by Unive rs HCl 5-07 mouth. ity of (WELLBUTRIN 16:24: [place] ORAL) Medical Branch bupropion 0 Yes Take by Unive rs HCl 5-07 mouth. ity of (WELLBUTRIN 16:24: [place] ORAL) Medical Branch bupropion Yes Take by Unive rs HCl 5-07 mouth. ity of (WELLBUTRIN 16:24: [place] ORAL) 02 Medical Branch bupropion 0 Yes Take by Unive rs HCl 5-07 mouth. ity of (WELLBUTRIN 16:24: [place] ORAL) Medical Branch bupropion Yes Take by Unive rs HCl 5-07 mouth. ity of (WELLBUTRIN 16:24: [place] ORAL) Medical Branch bupropion 2018-0 Yes Take by Unive rs HCl 5-07 mouth. ity of (WELLBUTRIN 16:24: [place] ORAL) 02 Medical Branch bupropion Yes Take by Unive rs HCl 5-07 mouth. ity of (WELLBUTRIN 16:24: [place] ORAL) 02 Medical Branch bupropion 2018-0 Yes Take by Unive rs HCl 5-07 mouth. ity of (WELLBUTRIN 16:24: [place] ORAL) 02 Medical Branch bupropion 2019-0 Yes Take by Unive rs HCl 5-07 mouth. ity of (WELLBUTRIN 16:24: [place] ORAL) 02 Medical Branch bupropion 2018-0 Yes Take by Unive rs HCl 5-07 mouth. ity of (WELLBUTRIN 16:24: [place] ORAL) 02 Medical Branch bupropion 0 Yes Take by Unive rs HCl 5-07 mouth. ity of (WELLBUTRIN 16:24: [place] ORAL) 02 [facility] escitalopra Yes 20mg Take 20 mg Univers m oxalate 5-07 by mouth ity of 20 mg 16:23: daily. [place] tablet 21 [facility] nebivolol Yes 10mg Take 10 mg Un karsten (BYSTOLIC) 5-07 by mouth ity o f 10 mg 16:23: daily. [place] tablet 21 [facility] escitalopra Yes 20mg Take 20 mg Univers m oxalate 5-07 by mouth ity of 20 mg 16:23: daily. [place] tablet 21 [facility] montelukast Yes 10mg Take 10 mg Univers 10 mg 5-07 by mouth. ity of tablet 16:23: [address] montelukast Yes 10mg Take 10 mg Univers 10 mg 5-07 by mouth. ity of tablet 16:23: [address] nebivolol Yes 10mg Take 10 mg Un [place] (BYSTOLIC) 5-07 by mouth ity o f 10 mg 16:23: daily. [place] tablet 21 [facility] escitalopra Yes 20mg Take 20 mg Univers m oxalate 5-07 by mouth ity of 20 mg 16:23: daily. [place] tablet 21 [facility] montelukast Yes 10mg Take 10 mg Univers 10 mg 5-07 by mouth. ity of tablet 16:23: [address] nebivolol Yes 10mg Take 10 mg Un karsten (BYSTOLIC) 5-07 by mouth ity o f 10 mg 16:23: daily. [place] tablet 21 [facility] escitalopra Yes 20mg Take 20 mg Univers m oxalate 5-07 by mouth ity of 20 mg 16:23: daily. [place] tablet 21 [facility] montelukast Yes 10mg Take 10 mg Univers 10 mg 5-07 by mouth. ity of tablet 16:23: [address] nebivolol Yes 10mg Take 10 mg Un karsten (BYSTOLIC) 5-07 by mouth ity o f 10 mg 16:23: daily. [place] tablet 21 [facility] escitalopra Yes 20mg Take 20 mg Univers m oxalate 5-07 by mouth ity of 20 mg 16:23: daily. [place] tablet 21 [facility] montelukast Yes 10mg Take 10 mg Univers 10 mg 5-07 by mouth. ity of tablet 16:23: [address] nebivolol Yes 10mg Take 10 mg Un [place] (BYSTOLIC) 5-07 by mouth ity o f 10 mg 16:23: daily. [place] tablet 21 [facility] [place] escitalopra Yes 20mg Take 20 mg Univers m oxalate 5-07 by mouth ity of 20 mg 16:23: daily. [place] tablet 21 [facility] montelukast Yes 10mg Take 10 mg Univers 10 mg 5-07 by mouth. ity of tablet 16:23: [address] nebivolol Yes 10mg Take 10 mg Un kar[place] (BYSTOLIC) 5-07 by mouth ity o f 10 mg 16:23: daily. [place] tablet 21 [facility] [place] escitalopra Yes 20mg Take 20 mg Univers m oxalate 5-07 by mouth ity of 20 mg 16:23: daily. [place] tablet 21 [facility] montelukast Yes 10mg Take 10 mg Univers 10 mg 5-07 by mouth. ity of tablet 16:23: [address] nebivolol Yes 10mg Take 10 mg Un [place] (BYSTOLIC) 5-07 by mouth ity o f 10 mg 16:23: daily. [place] tablet 21 [facility] [place] escitalopra Yes 20mg Take 20 mg Univers m oxalate 5-07 by mouth ity of 20 mg 16:23: daily. [place] tablet 21 [facility] montelukast Yes 10mg Take 10 mg Univers 10 mg 5-07 by mouth. ity of tablet 16:23: [address] nebivolol Yes 10mg Take 10 mg Un [place] (BYSTOLIC) 5-07 by mouth ity o f 10 mg 16:23: daily. [place] tablet 21 [facility] escitalopra Yes 20mg Take 20 mg Univers m oxalate 5-07 by mouth ity of 20 mg 16:23: daily. [place] tablet 21 [facility] montelukast 0 Yes 10mg Take 10 mg Univers 10 mg 5-07 by mouth. ity of tablet 16:23: [address] nebivolol 0 Yes 10mg Take 10 mg Un [place] (BYSTOLIC) 5-07 by mouth ity o f 10 mg 16:23: daily. [place] tablet 21 [facility] [place] escitalopra 2018- Yes 20mg Take 20 mg Univers m oxalate 5-07 by mouth ity of 20 mg 16:23: daily. [place] tablet 21 Medical Branch nebivolol 0 Yes 10mg Take 10 mg Un [place] (BYSTOLIC) 5-07 by mouth ity o f 10 mg 16:23: daily. [place] tablet 21 [facility] [place] montelukast Yes 10mg Take 10 mg Univers 10 mg 5-07 by mouth. ity of tablet 16:23: [address] escitalopra 2018- Yes 20mg Take 20 mg Univers m oxalate 5-07 by mouth ity of 20 mg 16:23: daily. [place] tablet 21 Medical Branch montelukast Yes 10mg Take 10 mg Univers 10 mg 5-07 by mouth. ity of tablet 16:23: [address] nebivolol Yes 10mg Take 10 mg Un [place] (BYSTOLIC) 5-07 by mouth ity o f 10 mg 16:23: daily. [place] tablet 21 [facility] [place] escitalopra Yes 20mg Take 20 mg Univers m oxalate 5-07 by mouth ity of 20 mg 16:23: daily. [place] tablet 21 [facility] montelukast Yes 10mg Take 10 mg Univers 10 mg 5-07 by mouth. ity of tablet 16:23: [address] nebivolol Yes 10mg Take 10 mg Un [place] (BYSTOLIC) 5-07 by mouth ity o f 10 mg 16:23: daily. [place] tablet 21 [facility] escitalopra Yes 20mg Take 20 mg Univers m oxalate 5-07 by mouth ity of 20 mg 16:23: daily. [place] tablet 21 [facility] montelukast 0 Yes 10mg Take 10 mg Univers 10 mg 5-07 by mouth. ity of tablet 16:23: [address] nebivolol 0 Yes 10mg Take 10 mg Un [place] (BYSTOLIC) 5-07 by mouth ity o f 10 mg 16:23: daily. [place] tablet 21 [facility] escitalopra 2018- Yes 20mg Take 20 mg Univers m oxalate 5-07 by mouth ity of 20 mg 16:23: daily. [place] tablet 21 [facility] montelukast Yes 10mg Take 10 mg Univers 10 mg 5-07 by mouth. ity of tablet 16:23: [place] 21 Medical Branch nebivolol Yes 10mg Take [...] 5-07 by mouth. ity of tablet 16:23: [place] 21 Medical Branch nebivolol Yes 10mg Take [...] 5-07 by mouth. ity of tablet 16:23: [place] 21 [facility] Branch nebivolol Yes 10mg Take 10 mg Un kar[place] (BYSTOLIC) 5-07 by mouth ity o f 10 mg 16:23: daily. [place] tablet 21 [facility] Branch bupropion Yes Take by Unive rs HCl 5-07 mouth. ity of (WELLBUTRIN 11:24: [place] ORAL) [facility] Branch bupropion Yes Take by Unive rs HCl 5-07 mouth. ity of (WELLBUTRIN 11:24: [place] ORAL) [facility] bupropion Yes Take by Unive rs HCl [...] mouth. ity of (WELLBUTRIN 11:24: [place] ORAL) [facility] bupropion Yes Take by Unive rs HCl 5-07 mouth. ity of (WELLBUTRIN 11:24: [place] ORAL) [facility] bupropion Yes Take by Unive rs HCl 5-07 mouth. ity of (WELLBUTRIN 11:24: [place] ORAL) [facility] bupropion Yes Take by Unive rs HCl 5-07 mouth. ity of (WELLBUTRIN 11:24: [place] ORAL) [facility] nebivolol Yes 10mg Take 10 mg [place] (BYSTOLIC) 5-07 by mouth ity o f 10 mg 11:23: daily. [place] tablet 21 [facility] [place] escitalopra Yes 20mg Take 20 mg Univers m oxalate 5-07 by mouth ity of 20 mg 11:23: daily. [place] tablet 21 [facility] montelukast Yes 10mg Take 10 mg Univers 10 mg 5-07 by mouth. ity of tablet 11:23: [address] nebivolol Yes 10mg Take 10 mg [place] (BYSTOLIC) 5-07 by mouth ity o f 10 mg 11:23: daily. [place] tablet 21 [facility] [place] escitalopra Yes 20mg Take 20 mg Univers m oxalate 5-07 by mouth ity of 20 mg 11:23: daily. [place] tablet 21 [facility] montelukast Yes 10mg Take 10 mg Univers 10 mg 5-07 by mouth. ity of tablet 11:23: [address] nebivolol Yes 10mg Take 10 mg [place] (BYSTOLIC) 5-07 by mouth ity o f 10 mg 11:23: daily. [place] tablet 21 [facility] escitalopra Yes 20mg Take 20 mg Univers m oxalate 5-07 by mouth ity of 20 mg 11:23: daily. [place] tablet 21 [facility] montelukast Yes 10mg Take 10 mg Univers 10 mg 5-07 by mouth. ity of tablet 11:23: [address] nebivolol Yes 10mg Take 10 mg [place] (BYSTOLIC) 5-07 by mouth ity o f 10 mg 11:23: daily. [place] tablet 21 [facility] escitalopra Yes 20mg Take 20 mg Univers m oxalate 5-07 by mouth ity of 20 mg 11:23: daily. [place] tablet 21 [facility] montelukast Yes 10mg Take 10 mg Univers 10 mg 5-07 by mouth. ity of tablet 11:23: [address] nebivolol 0 Yes 10mg Take 10 mg [place] (BYSTOLIC) 5-07 by mouth ity o f 10 mg 11:23: daily. [place] tablet 21 [facility] [place] escitalopra Yes 20mg Take 20 mg Univers m oxalate 5-07 by mouth ity of 20 mg 11:23: daily. [place] tablet 21 [facility] montelukast Yes 10mg Take 10 mg Univers 10 mg 5-07 by mouth. ity of tablet 11:23: [address] nebivolol Yes 10mg Take 10 mg [place] (BYSTOLIC) 5-07 by mouth ity o f 10 mg 11:23: daily. [place] tablet 21 [facility] [place] escitalopra Yes 20mg Take 20 mg Univers m oxalate 5-07 by mouth ity of 20 mg 11:23: daily. [place] tablet 21 [facility] montelukast Yes 10mg Take 10 mg Univers 10 mg 5-07 by mouth. ity of tablet 11:23: [address] nebivolol Yes 10mg Take 10 mg [place] (BYSTOLIC) 5-07 by mouth ity o f 10 mg 11:23: daily. [place] tablet 21 [facility] escitalopra Yes 20mg Take 20 mg Univers m oxalate 5-07 by mouth ity of 20 mg 11:23: daily. [place] tablet 21 [facility] montelukast Yes 10mg Take 10 mg Univers 10 mg 5-07 by mouth. ity of tablet 11:23: [address] nebivolol 0 Yes 10mg Take 10 mg [place] (BYSTOLIC) 5-07 by mouth ity o f 10 mg 11:23: daily. [place] tablet 21 [facility] escitalopra 0 Yes 20mg Take 20 mg Univers m oxalate 5-07 by mouth ity of 20 mg 11:23: daily. [place] tablet 21 [facility] montelukast 0 Yes 10mg Take 10 mg Univers 10 mg 5-07 by mouth. ity of tablet 11:23: [place] [address] Medical Branch nebivolol Yes 10mg Take 10 mg Un [place] (BYSTOLIC) 5-07 by mouth ity o f 10 mg 11:23: daily. [facility] 21 Medical Branch escitalopra Yes 20mg Take 20 mg Univers m oxalate 5-07 by mouth ity of 20 mg 11:23: daily. [facility] 21 Medical Branch montelukast Yes 10mg Take 10 mg Univers 10 mg 5-07 by mouth. ity of tablet 11:23: [place] [address] Medical Branch metformin Yes [id number] 750mg Take 1 Univers ER 750 mg 5-07 tablet by ity o f 24 hr 00:00: mouth [place] tablet 00 daily with Medical breakfast. Branch dulaglutide Yes [id number] .75mg inject Univers (TRULICITY) 5-07 0.75 mg ity o f 0.75 mg/0.5 00:00: [place] mL PnIj 00 skin Medical weekly. Branch ezetimibe Yes [id number] 10mg Take 1 U nivers 10 mg 5-07 tablet by ity of tablet 00:00: mouth [place] 00 daily. Medical Branch metformin Yes [id number] 750mg Take 1 Univers ER 750 mg 5-07 tablet by ity o f 24 hr 00:00: mouth [place] tablet 00 daily with Medical breakfast. Branch dulaglutide Yes [id number] .75mg inject Univers (TRULICITY) 5-07 0.75 mg ity o f 0.75 mg/0.5 00:00: [place] mL PnIj 00 skin Medical weekly. Branch ezetimibe Yes [id number] 10mg Take 1 U nivers 10 mg 5-07 tablet by ity of tablet 00:00: mouth [place] 00 daily. Medical Branch metformin Yes [id number] 750mg Take 1 Univers ER 750 mg 5-07 tablet by ity o f 24 hr 00:00: mouth [place] tablet 00 daily with Medical breakfast. Branch dulaglutide Yes [id number] .75mg inject Univers (TRULICITY) 5-07 0.75 mg ity o f 0.75 mg/0.5 00:00: [place] mL PnIj 00 skin Medical weekly. Branch ezetimibe Yes [id number] 10mg Take 1 U nivers 10 mg 5-07 tablet by ity of tablet 00:00: mouth [place] 00 daily. Medical Branch CONTOUR Yes Use as Univers NEXT TEST 2-05 directed, ity o f STRIPS 00:00: TID, [place] strip 00 DX:E11.9 Medical Branch Lancets Yes Use as Univers (MICROLET 2-05 directed, ity o f LANCET) 00:00: TID, [place] Misc 00 DX:E11.9 Medical Branch CONTOUR Yes Use as Univers NEXT TEST 2-05 directed, ity o f STRIPS 00:00: TID, [place] strip 00 DX:E11.9 Medical Branch Lancets Yes Use as Univers (MICROLET 2-05 directed, ity o f LANCET) 00:00: TID, [place] Misc 00 DX:E11.9 Medical Branch CONTOUR 2019- No Use as Univers NEXT TEST 2-05 08-20 directed, ity of STRIPS 00:00: 00:00 TID, [place] strip 00 :00 DX:E11.9 Medical Branch Lancets 2019- No Use as Univers (MICROLET 2-05 08-20 directed, ity of LANCET) 00:00: 00:00 TID, [place] Misc 00 :00 DX:E11.9 Medical Branch metaxalone Yes 800mg Take 800 [facility] [...] Medical 07 needed . Center Missing or 2017-0 Yes every [address] [facility] Non-Formula 4-21 (one) hour Ariana babb ry 11:21: [facility] Medication 07 otc Center vitamin . OREGANO OIL 2017- Yes QD Take by [facility] ORAL 4-21 [facility] 11:21: daily. Medical 07 Center KELP ORAL 2017-0 Yes QD Take by [facility] 11:21: daily. [address] GRAPEFRUIT 2018-0 Yes QD Take by [facility] FORMULA 4-21 [facility] ORAL 11:21: daily. [address] COQ10, 2018-0 Yes QD Take by [facility] UBIQUINOL, 4-21 [facility] ORAL 11:21: daily. [address] carica 2018-0 Yes Take by [facility] papaya 4-21 mouth as [facility] (PAPAYA 11:21: needed. Medical ENZYME) Tab [address] [place] [address] ENZYMES,DIG 2018-0 Yes QD Take by [facility] ESTIVE 4-21 [facility] (DIGESTIVE 11:21: daily. Medic al ENZYMES Center ORAL) vitamin E 2017-0 Yes 400U QD Take [address] 400 UNIT 4-21 Units by [facility] capsule 11:21: mouth Medical 07 daily. [place] CALCIUM/MAG 2018-0 Yes QD Take by [facility] NESIUM/VIT 4-21 mouth [facility] B COMP 11:21: daily. Medical (CALCIUM-MA Center GNESIUM-B COMPLEX ORAL) GARLIC ORAL 2017-0 Yes QD Take [facility] 4-21 [facility] 11:21: daily. [address] metFORMIN 2017-0 Yes 500mg Take [address] (GLUCOPHAGE 4-21 mg by [facility] ) 500 MG 11:21: mouth Medical tablet 07 daily with Center breakfast . nebivolol 2018-0 Yes 5mg QD Take [address] [facility] (BYSTOLIC) 4-21 by mouth [facility] 5 MG tablet 11:21: daily. Medi remedios [address] [place] [address] metaxalone 2018-0 Yes 800mg Take [address] (SKELAXIN) 4-21 mg by [facility] 800 MG 11:21: mouth Medical tablet 07 every 6 Center (six) hours as needed for Muscle spasms. L. 2018-0 Yes 2{tbl} QD Take [address] [facility] ACIDOPHILUS 4-21 tablets by Ariana kes /DIG ENZ 11:21: mouth Medical CMB 5 07 daily. [place] (PROBIOTIC- DIGESTIVE ENZYMES ORAL) VALERIAN 2018-0 Yes 470mg Take [address] ORAL 4-21 mg by [facility] 11:21: mouth as Medical 07 needed . Center Missing or 2018-0 Yes every [address] Non-Formula 4-21 (one) hour Ariana kes ry 11:21: [facility] Medication 07 otc Center vitamin . OREGANO OIL 2017-0 Yes QD Take by [facility] ORAL -21 [facility] 11:21: daily. Medical [address] [place] [address] KELP ORAL 2018-0 Yes QD Take by [facility] -[facility] 11:21: daily. [address] GRAPEFRUIT 2018-0 Yes QD Take by [facility] FORMULA -21 mouth [facility] ORAL 11:21: daily. [address] COQ10, 2018-0 Yes QD Take by [facility] UBIQUINOL, -21 mouth [facility] ORAL 11:21: daily. [address] carica 2018-0 Yes Take by [facility] papaya -21 mouth as [facility] (PAPAYA 11:21: needed. Medical ENZYME) Tab [address] [place] [address] ENZYMES,DIG 2018-0 Yes QD Take by [facility] ESTIVE -21 mouth [facility] (DIGESTIVE 11:21: daily. Medic al ENZYMES [address] [place] [address] ORAL) vitamin E 2017-0 Yes 400U QD Take [address] 400 UNIT 12-02 Units by [facility] capsule 11:21: mouth Medical 07 daily. [place] CALCIUM/MAG 2018-0 Yes QD Take by [facility] NESIUM/VIT -21 mouth [facility] B COMP 11:21: daily. Medical (CALCIUM-MA [address] [place] [address] GNESIUM-B COMPLEX ORAL) GARLIC ORAL 2017-0 Yes QD Take by [facility] -21 [facility] 11:21: daily. [address] metFORMIN 2018-0 Yes 500mg Take [address] (GLUCOPHAGE -21 mg by [facility] ) 500 MG 11:21: mouth Medical tablet 07 daily with Center breakfast . nebivolol 2018-0 Yes 5mg QD Take [address] (BYSTOLIC) 21 by mouth [facility] 5 MG tablet 11:21: daily. Medi remedios [address] [place] [address] acetaminoph acetaminoph No acetaminop [place] 300 [...] IN RIGHT IN RIGHT DROP(S) IN O [facility] EYE FOUR EYE FOUR RIGHT EYE h TIMES A TIMES A FOUR TIMES Pro gram DAY. DAY. A DAY. epinastine epinastine No epinastine [place] 0.05 % eye 0.05 % eye 0.05 % eye da drops drops drops [facility] escitalopra escitalopra No [...] eye da drops drops gel drops [facility] Lotemax SM Lotemax [...] mg 500 mg da tablet tablet tablet [facility] metformin metformin No [...] mol 500 mg da tablet tablet tablet [facility] methocarbam methocarbam No methocarba [...] ole 500 mg da tablet tablet tablet [facility] Microlet Microlet No Microlet [place] Lancet Lancet Lancet da [facility] montelukast montelukast No montelukas [place] 10 mg 10 mg t 10 mg da tablet tablet tablet [facility] Myrbetriq Myrbetriq No [...] MINUTES MINUTES EVERY 15 UNTIL UNTIL MINUTES NURSING HOME NURSING HOME UNTIL FINISHED. 4 FINISHED. 4 NURSING HOME HOURS PRIOR HOURS PRIOR FINISHED. 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) (1) TAKE ONE al TABLET(S) TABLET(S) [...] Immunizations Ordered Filled Immunization Date Status Comments Sour e Immunization Name Name Tdap Td 2018-05-28 Completed [facility] 12:28:00 Group TDAP 2018-05-28 Completed [facility] 00:00: [facility] TDAP 2018-05-28 Completed University of 00:00:00 [facility] TDAP 2018-05-28 Completed University of :00: [facility] TDAP 2018-05-28 Completed University of 00:00: [facility] TDAP 2018-05-28 Completed University of 00:00:00 [facility] TDAP 2018-05-28 Completed University of 00:00:00 [facility] TDAP 2018-05-28 Completed University of 00:00: [facility] TDAP 2018-05-28 Completed University of 00:00: [facility] TDAP 2018-05-28 Completed University of 00:00:00 [facility] TDAP 2018-05-28 Completed University of 00:00:00 [facility] TDAP 2018-05-28 Completed University of 00:00: [facility] TDAP 2018-05-28 Completed University of 00:00:00 [facility] TDAP 2018-05-28 Completed University of 00:00:00 [facility] TDAP 2018-05-28 Completed University of 00:00:00 [facility] TDAP 2018-05-28 Completed University of 00:00:00 [facility] TDAP 2018-05-28 Completed University of 00:00:00 [facility] TDAP 2018-05-28 Completed University of 00:00:00 [facility] TDAP 2018-05-28 Completed University of 00:00: [facility] Tdap 2018-05-28 Completed University of 00:00:00 [place] [facility] Tdap 2018-05-28 Completed University of 00:00:00 [place] [facility] TDAP 2018-05-28 Completed University of 00:00:00 [place] [facility] TDAP 2018-05-28 Completed University of 00:00:00 [facility] Vital Signs Vital Name Observation Time Observation Value Comments Source Systolic blood 2022-06-24 14:16:00 127 mm[Hg] Univer sity of pressure [place] [facility] [place] Diastolic blood 2022-06-24 14:16:00 81 mm[Hg] Unive rsity of pressure [facility] Branch Heart rate 2022-06-24 14:16:00 77 /min [facility] [place] [facility] Body height 2022-06-24 14:16:00 170.2 cm Universi [facility] of [place] [facility] [place] Body weight 2022-06-24 14:16:00 124.739 kg Universi ty of [facility] BMI 2022-06-24 14:16:00 43.07 kg/m2 Universi ty of [place] [facility] [place] Oxygen saturation in 2022-06-24 14:16:00 91 /min University of Arterial blood by [facility] remedios Pulse oximetry Branch Systolic blood 2022-05-13 13:48:00 114 mm[Hg] Univer sity of pressure [place] [facility] Diastolic blood 2022-05-13 13:48:00 76 mm[Hg] Unive rsity of pressure [place] [facility] Heart rate 2022-05-13 13:48:00 82 /min [facility]i [facility] [place] [facility] [place] Body height 2022-05-13 13:48:00 170.2 cm [facility] [place] [facility] Body weight 2022-05-13 13:48:00 124.739 kg [facility]i [facility] [place] [facility] BMI 2022-05-13 13:48:00 43.07 kg/m2 [facility] [place] [facility] Oxygen saturation in 2022-05-13 13:48:00 94 /min University of Arterial blood by [facility] remedios Pulse oximetry Branch BP Diastolic 2019-09-26 00:00:00 103 mm[Hg] [facility] Height 2019-09-26 00:00:00 67 [in_i] [facility] BMI (Body Mass 2019-09-26 00:00:00 44.6 kg/m2 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 Medical Index) Group BP Systolic 2019-09-26 00:00:00 156 mm[Hg] [facility] Body Weight 2019-09-26 00:00:00 4560 [oz_av] [facility] BP Diastolic 2019-07-26 00:00:00 100 mm[Hg] [facility] Height 2019-07-26 00:00:00 67 [in_i] [facility] BMI (Body Mass 2019-07-26 00:00:00 44.5 kg/m2 [facility] 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 Medical Index) Group BP Systolic 2019-07-26 00:00:00 170 mm[Hg] [facility] Body Weight 2019-07-26 00:00:00 4544 [oz_av] [facility] BP Diastolic 2019-05-23 00:00:00 78 mm[Hg] [facility] Height 2019-05-23 00:00:00 67 [in_i] [facility] BMI (Body Mass 2019-05-23 00:00:00 43.4 kg/[facility] BP Systolic 2019-05-23 00:00:00 150 mm[Hg] [facility] Body Weight 2019-05-23 00:00:00 276.8 [lb_av] [facility] BP Diastolic 2019-05-14 00:00:00 96 mm[Hg] [facility] Height 2019-05-14 00:00:00 67 [in_i] [facility] BMI (Body Mass 2019-05-14 00:00:00 43.9 kg/m2 [facility] BP Systolic 2019-05-14 00:00:00 164 mm[Hg] [facility] Body Weight 2019-05-14 00:00:00 4480 [oz_av] [facility] BP Diastolic 2019-02-28 00:00:00 79 mm[Hg] [facility] Height 2019-02-28 00:00:00 67 [in_i] [facility] BMI (Body Mass 2019-02-28 00:00:00 42.6 kg/m2 [facility] BP Systolic 2019-02-28 00:00:00 141 mm[Hg] [facility] Body Weight 2019-02-28 00:00:00 4352 [oz_av] [facility] BP Diastolic 2019-02-20 00:00:00 81 mm[Hg] [facility] Height 2019-02-20 00:00:00 67 [in_i] [facility] BMI (Body Mass 2019-02-20 00:00:00 42.3 kg/m2 [facility] Medical Index) Group BP Systolic 2019-02-20 00:00:00 120 mm[Hg] [facility] Body Weight 2019-02-20 00:00:00 270.3 [lb_av] [facility] BP Diastolic 2019-02-19 00:00:00 83 mm[Hg] [facility] Height 2019-02-19 00:00:00 67 [in_i] [facility] [facility] BMI (Body Mass 2019-02-19 00:00:00 42.3 kg/m2 [facility] BP Systolic 2019-02-19 00:00:00 136 mm[Hg] [facility] Body Weight 2019-02-19 00:00:00 4320 [oz_av] [facility] BP Diastolic 2019-01-24 00:00:00 89 mm[Hg] [facility] Height 2019-01-24 00:00:00 67 [in_i] [facility] BMI (Body Mass 2019-01-24 00:00:00 42.3 kg/m2 [facility] BP Systolic 2019-01-24 00:00:00 126 mm[Hg] [facility] Body Weight 2019-01-24 00:00:00 269.8 [lb_av] [facility] BP Diastolic 2018-12-27 00:00:00 81 mm[Hg] [facility] Height 2018-12-27 00:00:00 67 [in_i] [facility] BMI (Body Mass 2018-12-27 00:00:00 42.8 kg/m2 [facility] BP Systolic 2018-12-27 00:00:00 129 mm[Hg] [facility] Body Weight 2018-12-27 00:00:00 273.2 [lb_av] [facility] BP Diastolic 2018-12-17 00:00:00 93 mm[Hg] [facility] Height 2018-12-17 00:00:00 67 [in_i] [facility] BMI (Body Mass 2018-12-17 00:00:00 42.9 kg/m2 [facility] BP Systolic 2018-12-17 00:00:00 161 mm[Hg] [facility] Body Weight 2018-12-17 00:00:00 4384 [oz_av] [facility] BP Diastolic 2018-12-06 00:00:00 88 mm[Hg] [facility] Height 2018-12-06 00:00:00 67 [in_i] [facility] BMI (Body Mass 2018-12-06 00:00:00 43 kg/m2 [facility] BP Systolic 2018-12-06 00:00:00 152 mm[Hg] [facility] Body Weight 2018-12-06 00:00:00 274.7 [lb_av] [facility] BP Diastolic 2018-10-22 00:00:00 84 mm[Hg] [facility] Height 2018-10-22 00:00:00 67 [in_i] [facility] BMI (Body Mass 2018-10-22 00:00:00 43.5 kg/m2 [facility] BP Systolic 2018-10-22 00:00:00 152 mm[Hg] [facility] Body Weight 2018-10-22 00:00:00 4448 [oz_av] [facility] BP Diastolic 2018-08-27 00:00:00 100 mm[Hg] [facility] Height 2018-08-27 00:00:00 67 [in_i] [facility] BMI (Body Mass 2018-08-27 00:00:00 44.6 kg/m2 [facility] BP Systolic 2018-08-27 00:00:00 186 mm[Hg] [facility] Body Weight 2018-08-27 00:00:00 4560 [oz_av] [facility] BP Diastolic 2018-08-06 00:00:00 104 mm[Hg] [facility] Height 2018-08-06 00:00:00 67 [in_i] [facility] BMI (Body Mass 2018-08-06 00:00:00 43.9 kg/m2 [facility] BP Systolic 2018-08-06 00:00:00 166 mm[Hg] [facility] Body Weight 2018-08-06 00:00:00 4480 [oz_av] [facility] Height 2018-07-30 00:00:00 67 [in_i] [facility] BMI (Body Mass 2018-07-30 00:00:00 43.9 kg/m2 [facility] Body Weight 2018-07-30 00:00:00 280 [lb_av] [facility] 02 Sat by Pulse [...] 2020-12-02 11:20:37 Normal /min Weight 2020-12-02 11:20:37 161818.678\\S\\4448 Weight Measurement 2020-12-02 11:20:37 Estimated by Method [...] 2020-11-28 00:12:35 Normal /min Weight 2020-11-28 00:12:35 646591.678\\S\\4448 Weight Measurement 2020-11-28 00:12:35 Estimated by Method Patient 02 Sat by Pulse 2020-11-27 12:19:31 97 /min Oximetry Body Mass Index 2020-11-27 12:19:31 43.5 Height 2020-11-27 12:19:31 170.18\\S\\67 Pulse Rate 2020-11-27 12:19:31 69 /min Pulse Strength 2020-11-27 12:19:31 Normal /min Pulse Assessment 2020-11-27 12:19:31 Palpation /min Method Respiratory Rate 2020-11-27 12:19:31 15 /min Weight 2020-11-27 12:19:31 316884.678\\S\\4448 Weight Measurement 2020-11-27 12:19:31 Estimated by Method Patient Body Mass Index 2020-11-27 09:51:35 43.5 Height 2020-11-27 09:51:35 170.18\\S\\67 Weight 2020-11-27 09:51:35 715669.678\\S\\4448 Weight Measurement 2020-11-27 09:51:35 Estimated by Method Patient Height 2020-11-27 09:51:32 170.18\\S\\67 Weight Measurement 2020-11-27 09:51:32 Estimated by Staff Method Height 2020-11-27 09:51:22 170.18\\S\\67 Weight Measurement 2020-11-27 09:51:22 Estimated by Staff Method WEIGHT 2020-11-27 08:59:00 126.350462 kg HEIGHT 2020-11-27 08:59:00 170.18 cm HEIGHT 2020-11-27 08:32:00 170.18 cm Procedures Procedure Date / Time Performing Clinician Source Performed MR ANGIOGRAM HEAD WO 2022-06-01 13:28:03 Girish Loaiza [facility] CONTRAST Medical Branch CONSENT/REFUSAL FOR 2022-05-13 13:34:42 Doctor Morgan, [facility] DIAGNOSIS AND TREATMENT [place] [facility] REFERRAL- 2022-04-13 05:01:00 Doctor Morgan, [facility] REQUEST/RESPONSE [facility] AMYLASE 2020-08-13 16:37:[address] [facility] LIPASE 2020-08-13 16:37:[address] [facility] COMP. METABOLIC PANEL 2020-08-13 16:37:00 Андрей Linares [facility] ([id number]) Medical [place] CBC WITH DIFF 2020-08-13 16:37:[address] [facility] ASSIGNMENT OF BENEFITS 2020-08-13 16:17:47 Doctor Morgan, [facility] [place] [facility] US, duplex, carotid 2019-05-20 00:00:00 Kike krishna [facility] artery Group US, doppler, arterial 2019-05-14 00:00:00 [facility] 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 [facility] Group REFERRAL- 2019-03-06 05:01:00 Doctor Morgan, [facility] REQUEST/RESPONSE [place] [facility] INSURANCE CORRESPONDENCE 2019-02-28 05:01:00 Doctor Morgan, [facility] [place] [facility] XR, wrist 2018-12-17 00:00:00 [facility] TYMPANOMETRY 2018-12-06 00:00:00 [facility] unlisted imaging order 2018-10-22 00:00:00 [facility] TYMPANOMETRY 2018-07-20 00:00:00 [facility] unlisted imaging order 2018-07-20 00:00:00 [facility] Exploration of Kidney 2017-11-30 00:00:00 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 Remove Tonsils and [facility] Adenoids Group Ankle Arthroscopy/surgery 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 Hysterectomy/revise [facility] V[facility] Group Encounters Start End Encounter Admission Attending Care Care Encounter Source Date/Time Date/Time Type Type Clinicians Facility Department ID 2023-03-21 Inpatient GAVINO MARKS [facility] [id number] [place] 09:30:00 ISABEL -[id number] [facility] 2023-03-06 Inpatient GAVINO MARKS [facility] [id number] [place] 10:00:00 ISABEL -[id number] [facility] 2023-02-21 2023-03-13 Outpatient GAVINO MARKS [facility] [id number] [place] 15:00:00 00:01:00 ISABEL -[id number] [facility] 2023-02-16 2023-02-16 Outpatient GAVINO MARKS [facility] [id number] [place] 14:56:00 14:56:00 ISABEL -[id number] [facility] 2023-02-13 2023-02-13 Outpatient GAVINO MARKS [facility] [id number] [place] 07:13:00 07:13:00 ISABEL -[id number] [facility] 2023-02-09 2023-02-10 Outpatient GAVINO MARKS [facility] [id number] [place] 14:49:00 00:01:00 ISABEL -[id number] [facility] 2023-02-07 2023-02-07 Outpatient GAVINO MARKS [facility] [id number] [place] 15:00:00 15:00:00 ISABEL -[id number] [facility] 2023-01-26 2023-01-26 Outpatient GAVINO MARKS [facility] [id number] [place] 14:00:00 14:00:00 ISABEL -[id number] [facility] 2023-01-24 2023-01-24 Outpatient GAVINO MARKS [facility] [id number] [place] 13:03:00 13:03:00 ISABEL -[id number] [facility] 2022-08-09 2022-08-09 Outpatient GAVINO MARKS [facility] [id number] [place] 11:16:00 11:16:00 ISABEL -[id number] [facility] 2022-06-24 2022-06-24 Rim Roller Operator Lab, Ang - Db [facility] 1.2.840.1 [id number] Univers 09:00:00 09:15:00 [facility] [id number] ity [facility] 4.2.7.2.686 Onofre as BALBIR?BLEA [id number] [facility] [address] [place] MEDICAL OFFICE [facility] 2022-06-24 2022-06-24 Outpatient Justice SOTO [facility] [id number] Univers 08:30:00 08:43:03 [facility] 2022-06-24 2022-06-24 Office [facility] 1.2.840.114 [id number] Univers 08:30:00 08:43:03 Visit [facility] 350.1.13.10 it y [facility] 4.2.7.2.686 Onofre as BALBIR?BLEA [id number] [address] OFFICE [facility] 2022-06-01 2022-06-01 Outpatient GIRISH TORRE [facility] [id number] Univers 07:36:54 23:59:00 GIRISH LOAIZA [facility] 2022-06-01 2022-06-01 [facility] Ruma [facility] [id number] Univers 07:36:54 23:59:00 Martinez MATHIS [id number] ity [facility] 4.2.7.2.686 [place] [facility] [id number] [facility] [address] [place] [address] 2022-05-24 2022-05-24 Outpatient GIRISH TORRE [facility] [id number] Univers 09:26:23 23:59:00 GIRISH LOAIZA [facility] 2022-05-13 2022-05-13 Outpatient GIRISH TORRE [facility] [id number] Univers 10:09:37 23:59:00 GIRISH LOAIZA of [facility] 2022-05-13 2022-05-13 Rim Roller Operator Lab, Ang - Db [facility] 1.2.840.1 14 [id number] Univers 10:00:00 10:15:00 Visit Girish Loaiza [facility] 350.1.13. 10 ity of [place] 4.2.7.2.686 Onofre as BALBIR?BLEA [id number] [facility] [address] [facility] OFFICE [facility] 2022-05-13 2022-05-13 Office Ruma [facility] 1.2.840.114 [id number] Univers 08:40:00 09:58:04 Visit Girish [facility] [id number] ity of [place] 4.2.7.2.686 Onofre as BALBIR?BLEA [id number] [address] OFFICE [facility] 2022-05-13 2022-05-13 Orders Doctor BISHOP 1.2.840.114 [id number] Univers 00:00:00 00:00:00 Only Unassigned, JESS 350.1.13.10 ity of [facility] 4.2.7.2.686 Onofre as [id number] [address] 2022-04-13 2022-04-13 Orders Doctor DARIO 1.2.840.114 [id number] Univers 00:00:00 00:00:00 Only Unassigned, JESS 350.1.13.10 ity of [place] [facility] 4.2.7.2.686 Onofre as [id number] [address] 2022-03-04 2022-03-04 Outpatient GAVINO MARKS [facility] [id number] [place] 13:51:00 13:51:00 ISABEL [id number] [facility] 2022-01-28 2022-01-28 Outpatient GAVINO MARKS [facility] [id number] [place] 08:02:00 08:02:00 ISABEL [id number] [facility] 2021-09-27 2021-09-27 Outpatient FIL[place]NA [place] [id number] [place] 00:00:00 00:00:00 H [facility]123 [facility] 2021-09-03 2021-09-03 Outpatient DESAI_ROSE MARIE [facility] 720 [place] 12:08:00 12:08:00 H 0123 [facility] 2021-08-26 2021-08-26 Outpatient DESAI_ROSE [facility] 720 [place] 01:46:00 01:46:00 H 0121 [facility] 2021-08-11 2021-08-11 Outpatient DESAI_ROSE [place] [id number] [place] 02:25:00 02:25:00 H 0107 [facility] 2021-07-30 2021-07-30 Outpatient DESAI_ROSE [place] [id number] [place] 06:44:00 06:44:00 H 1227 [facility] 2021-07-29 2021-07-29 Outpatient DESAI_ROSE [place] [id number] [place] 01:39:00 01:39:00 H 1216 [facility] 2021-07-29 2021-07-29 Outpatient DESAI_ROSE [place] [id number] [place] 01:39:00 01:39:00 H 1217 [facility] 2021-07-29 2021-07-29 Dario Demarco [facility] - [id number] M atagor 00:00:00 00:00:00 Josiah Krishna da PSYD: 1700 Sikh Epi scop Delcid HOP - [facility] Joyce, [facility] [phone] h , Ph. Program (779) --20072021-07-27 2021-07-27 Outpatient DESAI_ROSE [place] [id number] [place] 04:57:00 04:57:00 H 1214 [facility] 2021-07-24 2021-07-24 Outpatient DESAI_ROSE [place] [id number] [place] 10:24:00 10:24:00 H 1211 [facility] 2021-07-24 2021-07-24 Bakari Frye [facility] [place] - [id number] [place] 00:00:00 00:00:00 MD Sony: Josiah krishna 1700 Sikh Episco p [facility] [address], [facility]reac [id number] h , Ph. Program (979) --20072021-07-22 2021-07-22 Outpatient DESAI_RAKES [facility] 720 [place] 12:06:00 12:06:00 H 1209 [facility] 2021-07-02 2021-07-02 Outpatient DESAI_RAKES [place] [id number] [place] 06:35:00 06:35:00 H 1206 [facility] 2021-07-01 2021-07-01 Outpatient DESAI_RAKES [place] [id number] [place] 04:17:00 04:17:00 H 1118 [facility] 2021-07-01 2021-07-01 Outpatient DESAI_RAKES [place] [id number] [place] 04:17:00 04:17:00 H 1119 [facility] 2021-07-01 2021-07-01 Dario Demarco [facility] [place] - [id number] Thelma atagojustice 00:00:00 00:00:00 Josiah Krishna PSYD: 1700 Sikh Epi scop Delcid [facility] [address], [facility] Outreac [phone] h , Ph. Program (209) --20072021-06-29 2021-06-29 Outpatient DESAI_RAKES [place] [id number] [place] 12:45:00 12:45:00 H 1116 [facility] 2021-06-26 2021-06-26 Outpatient DESAI_RAKES [place] [id number] [place] 11:01:00 11:01:00 H 1113 [facility] 2021-06-26 2021-06-26 Bakari Frye [facility] [place] - [id number] [place] 00:00:00 00:00:00 MD Sony: Josiah krishna 1700 Sikh Episco p [facility] [phone] h , Ph. Program (979) --20072021-06-24 2021-06-24 Outpatient DESAI_RAKES [facility] D[facility] 720 [place] 11:57:00 11:57:00 H 1111 [facility] 2021-05-21 2021-05-21 Outpatient DESAI_RAKES DCHOP [facility] 720 [place] 07:27:00 07:27:00 H 1022 [facility] 2021-05-13 2021-05-13 Outpatient DESAI_RAKES [place] [id number] [place] 11:08:00 11:08:00 H 1008 [facility] 2021-05-13 2021-05-13 Outpatient DESAI_RAKES [place] [id number] [place] 11:08:00 11:08:00 H 0930 [facility] 2021-05-13 2021-05-13 Jamila [facility] [place] - [id number] M atagor 00:00:00 00:00:00 Neil carr, BEAN SPROUT GROWER: Sikh Episco p 1700 HOP - [facility] [address] Luis , Ph. (979) --20072021-05-11 2021-05-11 Outpatient DESAI_RAKES [place] [id number] [place] 03:05:00 03:05:00 H 0928 [facility] 2021-04-30 2021-04-30 Outpatient DESAI_RAKES [facility] 720 [place] 12:59:00 12:59:00 H 0922 [facility] 2021-04-22 2021-04-22 Outpatient DESAI_RAKES D[facility]OP DCHOP 720 [place] 12:01:00 12:01:00 H 0917 [facility] 2021-04-20 2021-04-20 Outpatient DESAI_RAKES D[facility]OP D[facility]OP 720 [place] 09:42:00 09:42:00 H 0909 [facility] 2021-04-14 2021-04-14 Outpatient DESAI_RAKES D[facility]OP D[facility]OP 720 [place] 05:12:00 05:12:00 H 0901 [facility] 2021-04-14 2021-04-14 Outpatient DESAI_RAKES DCHOP [facility] 720 [place] 05:12:00 05:12:00 H 0907 [facility] 2021-04-14 2021-04-14 Jamila [facility] [place] - [id number] M atagor 00:00:00 00:00:00 Neil carr [employer]OWER: Sikh Episco p 1700 SVETLANA Quevedo [facility] [address] Progr cornelio , Ph. (724) --20072021-04-12 2021-04-12 Outpatient DESAI_RAKES D[facility]OP D[facility]OP 720 [place] 01:08:00 01:08:00 H 0830 [facility] 2021-04-09 2021-04-09 Outpatient DESAI_RAKES D[facility]OP D[facility]OP 720 [place] 02:07:00 02:07:00 H 0827 [facility] 2021-04-09 2021-04-09 Jamila DCSVETLANA [place] - [id number] M at[place]or 00:00:00 00:00:00 Neil carr, BE[employer] SPROUT GROWER: Sikh Episco p 1700 SVETLANA [facility] [address] Progr cornelio , Ph. ([phone]) 245--20072021-04-07 2021-04-07 Outpatient DESJUDE OSMANSVETLANA 720 [place] 01:39:00 01:39:00 H 0825 da [facility] Program 2020-11-27 2020-11-27 Outpatient Elective Martha, [facility] [id number] [facility] 06:13:00 06:13:00 Gurvinder 67 2020-10-23 2020-10-23 Outpatient A_Byrd MMG MMG [id number] [place] 11:33:00 11:33:00 0312 [facility] 2020-08-26 2020-08-26 Out[facility] [id number] Univers 00:00:00 00:00:00 [facility] 2020-08-13 2020-08-13 [facility] 1.2.840.114 [id number] Univers 10:23:40 23:59:00 Encounter Андрей Thelma Emiliano 350.1.13.10 ity [facility] 4.2.7.2.686 [facility] [id number] [address] 2020-08-13 2020-08-13 Outpatient R [facility] [id number] Univers 10:23:40 23:59:00 [facility] 2020-08-13 2020-08-13 [facility] 1.2.840.114 [id number] 10:23:40 23:59:00 Encounter Андрей Thelma [place] 350.1.13.10 [place] 4.2.7.2.686 [place] [id number] [facility] 2020-08-13 2020-08-13 Rim Roller Operator Carey, Ira Lab Main [facility] 1.2.8 40.114 [id number] Univers 10:22:14 10:37:14 Visit Linares, Андрей Thelma Donnelly[place] 350.1.13.10 ity [facility] 4.2.7.2.686 [place] [phone] Me dical nal 353 [facility] 2020-08-13 2020-08-13 Rim Roller Operator Ira Patino [facility] 1.2.840.114 [id number] 10:22:14 10:37:14 Visit Lab Main Emiliano 350.1.13.10 [place] 4.2.7.2.686 Professio [id number] [address] 2020-08-13 2020-08-13 Orders Doctor DARIO 1.2.840.114 [id number] Univers 00:00:00 00:00:00 Only Unassigned, JESS 350.1.13.10 ity of [place] [facility] 4.2.7.2.686 Onofre as [phone] [address] 2020-08-13 2020-08-13 Orders Doctor DARIO 1.2.840.114 [id number] 00:00:00 00:00:00 Only Unassigned, JESS 350.1.13.10 [place] [facility] 4.2.7.2.686 [id number] [facility] 2020-07-01 2020-07-01 Outpatient A_Byrd MMG [facility] [id number] [place] 02:36:00 02:36:00 1118 [facility] 2020-06-19 2020-06-19 Outpatient R [facility] [id number] [facility] 16:30:00 16:30:00 HILL ch [facility] 2020-06-09 2020-06-09 Outpatient A_Byrd MMG MMG [id number] [place] 03:38:00 03:38:00 1027 [facility] 2020-05-11 2020-05-11 [facility]pam [facility] 1.2.840.114 [id number] Univers 00:00:00 00:00:00 Chadd Mathis 350.1.13.10 i ty of [place].2.7.2.686 [place] [phone] De dical nal 220 [facility] 2020-05-11 2020-05-11 Telephone [facility] 1.2.840.114 [id number] Univers 00:00:00 00:00:00 Hill Mathis 350.1.13.10 i ty of [place] 4.2.7.2.686 [place] [phone] De dical nal [address] [place] [address] 2020-05-11 2020-05-11 Telephone [facility] .2.840.114 [id number] 00:00:00 00:00:00 Hill Mathis 350.1.13.10 [place] 4.2.7.2.686 Professio [phone] [address] 2020-05-09 2020-05-09 Outpatient DESAI_RAKES [place] [id number] [place] 11:02:00 11:02:00 H 0926 [facility] 2020-04-04 2020-04-04 Outpatient DESAI_RAKES [place] [id number] [place] 12:20:00 12:20:00 H 0822 [facility] 2020-02-29 2020-02-29 Outpatient DESAI_RAKES [place] [id number] [place] 12:24:00 12:24:00 H 0718 [facility] 2020-02-19 2020-02-19 Outpatient GAVINO STRAUSS [facility] [id number] [place] 11:59:00 11:59:00 OBED -[id number] [facility] 2020-02-13 2020-02-13 Refill [facility] ..[id number] Univers 00:00:00 00:00:00 Hill Mathis 350.1.13.10 i ty of [place] 4.2.7.2.[place] [phone] De dical nal [address] [place] [address] 2020-01-24 2020-01-24 Outpatient R [facility] [id number] [facility] 09:00:00 09:00:00 HILL ch of [facility] 2019-12-25 2019-12-25 Gregg Rey [facility] [place] - [id number] [place] 00:00:00 00:00:00 MD Calixto: 0513 [address], [facility] [place] [address] , Ph. 2019-12-16 2019-12-16 [facility] 1.2.014.522 [id number] Univers 00:00:00 00:00:00 Hill Vijay Emiliano 350.1.13.10 i ty of [place] 4.2.7.2.[place] [phone] De dical nal [address] [place] [address] 2019-11-28 2019-11-28 Gregg Rey [facility] [place] 00:00:00 00:00:00 MD Calixto: [address], [facility] [place] [address] , Ph. 2019-11-19 2019-11-19 Gregg Rey [facility] [place] 00:00:00 00:00:00 MD Calixto: [address] - [facility] 201, [facility] [place] [address] , Ph. 2019-11-15 2019-11-15 [facility] 1.2.205.599 [id number] Univers 00:00:00 00:00:00 Hill Mathis 350.1.13.10 i ty of [place] 4.2.7.2.[place] [phone] De dical [address] 2019-09-26 2019-09-26 Gregg Rey [facility] [place] 00:00:00 00:00:00 MD Calixto: [address], [facility] [place] [address] , Ph. 2019-08-12 2019-08-12 Outpatient EL GREGG PEREZ [facility] [id number] [place] 13:38:00 13:38:00 -[id number] [facility] 2019-08-01 2019-08-01 Outpatient Krissy [facility] [id number] [place] 11:38:00 11:38:00 1219 [facility] 2019-07-26 2019-07-26 Gregg Lara [facility] [place] - [address] [place] 00:00:00 00:00:00 MD Calixto: [address] [place], [place] [address]rda - [address], [facility] [place] [address] , Ph. 2019-05-23 2019-05-23 Rafa [facility] [place] - [address] [place] 00:00:00 00:00:00 MD Cherelle: 1010 600 [facility] [place] [address], [place], [place] [address] , Ph. 2019-05-14 2019-05-14 Gregg Lara [facility] [place] - [address] [place] 00:00:00 00:00:00 MD Calixto: [address]1 [address], [facility] [place] [address] , Ph. 2019-04-02 2019-04-02 DARLENE Rodriguez [id number] Univers 00:00:00 00:00:00 Chadd Mathis [id number] i [id number] [phone] De dical [facility] 220 [facility] 2019-03-06 2019-03-06 Orders Doctor DARIO [id number] Univers 00:00:00 00:00:00 Only Unassigned, JESS [id number] ity of [place] [facility] [id number] [place] as [phone] [facility] [address] 2019-02-28 2019-02-28 Orders Doctor DARIO [id number] Univers 00:00:00 00:00:00 Only Unassigned, JESS [id number] [place] [facility] [id number] Onofre as [phone] [place] [address] [address] 2019-02-28 2019-02-28 [place] - [id number] [place] 00:00:00 00:00:00 MD Calixto: [address], [place] [address], [facility] [place] [address] , Ph. 2019-02-20 2019-02-20 [place] - [phone] [place] 00:00:00 00:00:00 MD Cherelle: [address], [place] [address], [facility] [place] [address] , Ph. 2019-02-19 2019-02-19 [place] - [id number] [place] 00:00:00 00:00:00 MD Calixto: [address], [place] [address], [facility] [place] [address] , Ph. 2019-02-11 2019-02-11 Outpatient GAVINO THOMAS [facility] [id number] [place] 07:14:00 07:14:00 RAFA -[id number] [facility] 2019-01-24 2019-01-24 [place] - [phone] [place] 00:00:00 00:00:00 MD Cherelle: [address], [place] [address], [facility] [place] [address] , Ph. 2018-12-27 2018-12-27 [place] - [id number] [place] 00:00:00 00:00:00 MD Cherelle: [address], [place] [address], [facility] [place] [address] , Ph. 2018-12-17 2018-12-17 Outpatient GREGG CABRERA [facility] D000 [id number] [place] 14:45:00 14:45:00 -[id number] [facility] 2018-12-17 2018-12-17 [place] - [id number] [place] 00:00:00 00:00:00 MD Calixto: [address], [place] [address], [facility] [place] [address] , Ph. 2018-12-06 2018-12-06 Rafa [facility] [place] - [phone] [place] 00:00:00 00:00:00 MD Cherelle: [address], [place] [address], [facility] [address] , Ph. 2018-10-22 2018-10-22 Outpatient UR GREGG PEREZ [facility] D000 [id number] [place] 10:48:00 10:48:00 -[id number] [facility] 2018-10-22 2018-10-22 Gregg Lara [facility] [place] - [id number] [place] 00:00:00 00:00:00 MD Calixto: [address], [place] [address], [facility] [place] [address] , Ph. 2018-09-20 2018-09-20 Outpatient EL IDA, [facility] [id number] [place] 09:29:00 09:29:00 ENTER -[id number] [facility] 2018-08-27 2018-08-27 Gregg Lara [facility] [place] - [id number] [place] 00:00:00 00:00:00 MD Calixto: [address], [place] [address], [facility] [place] [address] , Ph. 2018-08-06 2018-08-06 Outpatient GREGG CABRERA [facility] D000 [id number] [place] 08:40:00 08:40:00 -[id number] [facility] 2018-08-06 2018-08-06 Gregg Lara [facility] [place] [place] - [id number] [place] 00:00:00 00:00:00 MD Calixto: [address], [place] [address], [facility] [place] [address] , Ph. 2018-08-01 2018-08-01 Outpatient GAVINO THOMAS [facility] [id number] [place] 13:00:00 13:00:00 PALMELIDADANIEL -[id number] [facility] 2018-07-30 2018-07-[facility] [place] - [id number] [place] 00:00:00 00:00:00 MD Cherelle: [address], [place] [address], [facility] [place] [address] , Ph. 2018-07-20 2018-07-20 [facility] [place] - [id number] [place] 00:00:00 00:00:00 MD Cherelle: [address], [place] [address], [facility], [place] [address] , Ph. 2018-01-24 2018-01-24 Outpatient MANUEL ARRIETA [facility] D00 [id number] [place] 12:40:00 12:40:00 -[id number] [facility] 2017-12-27 2017-12-27 Outpatient GREGG CABRERA [facility] D000 [id number] [place] 11:42:00 11:42:00 -[id number] [facility] 2017-11-09 2017-11-09 Outpatient GREGG CABRERA [facility] D000 [id number] [place] 10:58:00 10:58:00 -[id number] [facility] 2017-07-14 2017-07-14 Outpatient GREGG CABRERA [facility] D000 [id number] [place] 08:34:00 08:34:00 -[id number] [facility] 2017-07-04 2017-07-04 Outpatient GREGG CABRERA [facility] D000 [id number] [place] 10:46:00 10:46:00 -[id number] [facility] 2017-05-11 2017-05-11 Outpatient GREGG CABRERA [facility] D000 [id number] [place] 10:14:00 10:14:00 -[id number] [facility] 2016-12-06 2016-12-06 Outpatient GREGG CABRERA [facility] D000 [id number] [place] 08:12:00 08:12:00 -[id number] [facility] 2016-09-26 2016-09-26 Outpatient GREGG CABRERA [facility] D000 [id number] [place] 10:58:00 10:58:00 -[id number] [facility] 2016-08-16 2016-08-16 Outpatient GREGG CABRERA [facility] D000 [id number] [place] 10:12:00 10:12:00 -[id number] [facility] Results Test Description Test Time Test Comments Results Result Comments Source LIPASE 2020-08-13 17:12:00 Test Item Value Reference Range Interpretation Comme nts LIPASE (test code = 9598020044) 122 U/L 0-220 Lab Interpretation (test code = 25843-9) Normal [facility]. METABOLIC PANEL (18348)2020-08-13 17:12:00 Test Item Value Reference Range Interpretation Comments NA (test code = 136 mmol/L 135-145 4708031634) K (test code = 4.3 mmol/L 3.5-5 1853491102) CL (test code = 100 mmol/L 98-108 7188654003) CO2 TOTAL (test code = 29 mmol/L 23-31 8664416527) AGAP (test code = 2-16 7472095860) BUN (test code = 18 mg/dL 7-23 9861683153) GLUCOSE (test code = 194 mg/dL 70-110 H 5779163228) CREATININE (test code = 1.01 mg/dL 0.5-1.04 3559147045) TOTAL BILI (test code = 0.6 mg/dL 0.1-1.1 4057786799) CALCIUM (test code = 9.9 mg/dL 8.6-10.6 4421414280) T PROTEIN (test code = 6.8 g/dL 6.3-8.2 4730808922) ALBUMIN (test code = 4.2 g/dL 3.5-5 6332534636) ALK PHOS (test code = 67 U/L 34-122 0286962156) ALTv (test code = 44 U/L 5-35 H 1742-6) AST(SGOT) (test code = 36 U/L 13-40 1872068981) eGFR Calculation mL/min/1.73m2 (Non-) (test code = 0787259966) eGFR Calculation mL/min/1.73m2 () (test code = 1250269809) ANA (test code = ANA) Association of [...] tests). Lab Interpretation Abnormal (test code = 13499-2) [facility] 17:11:00 Test Item Value Reference Range Interpretation Comments CHRISTY (test code = 6542333019) 45 U/L 35-110 Lab Interpretation (test code = Normal 61618-4) [facility] HospitalCBC WITH [id number] 16:45:00 Test Item Value Reference Range Interpretation [...] RDW-SD (test code = 42.6 fL 39-49.9 53268-5) RDW-CV (test code = 13.3 % 12-15.5 788-0) PLT (test code = See_Comment [Automated 777-3) message] The sy stem which generated this result transmitted reference range : 166 - 358 10*3/ ?L. The reference r morro was not used to interpret this result as normal/abnormal . MPV (test code = 8.8 fL 9.5-12.9 L 78037-6) NRBC/100 WBC (test See_Comment [Automat ed code = 3208993396) message] The system which generated this result transmitted reference range : 0.0 - 10.0 /100 WBCs. The refer ence range was not u sed to interpret th is result as normal/abnormal . NRBC x10^3 (test code <0.01 See_Comment [Auto mated = 1928832802) message] The s ystem which generated this result transmitted reference range : 10*3/?L. The reference range was not used to interpret this result as normal/abnormal . GRAN MAT (NEUT) % 61.7 % (test code = 770-8) IMM GRAN % (test code 0.50 % = 9740132008) LYMPH % (test code = 27.6 % 736-9) MONO % (test code = 7.1 % 5905-5) EOS % (test code = 2.6 % 713-8) BASO % (test code = 0.5 % 706-2) GRAN MAT x10^3(ANC) 5.90 10*3/uL 1.88-7.09 (test code = 8583349331) IMM GRAN x10^3 (test 0.05 10*3/uL 0-0.06 code = 6991419536) LYMPH x10^3 (test code 2.64 10*3/uL 1.32-3.29 = 731-0) MONO x10^3 (test code 0.68 10*3/uL 0.33-0.92 = 742-7) EOS x10^3 (test code = 0.25 10*3/uL 0.03-0.39 711-2) BASO x10^3 (test code 0.05 10*3/uL 0.01-0.07 = 704-7) Lab Interpretation Abnormal (test code = 63446-8) [facility] [id number] 08:11:00 Study ReportMatagojefferson [facility] Medical GroupSurgical pathology [id number] 08:11:00 [facility] ReportMat[facility]il[facility] Medical GroupSurgical pathology [id number] 08:11:00 [facility] Differential panel - Blood 2019-02-04 [...] fL 78-98 [Entitic volume] (test code = 77570-5) Erythrocyte mean corpuscular 27.9 pg 26.2-33.4 hemoglobin [Entitic mass] (test code = 04976-1) mean corpuscular HGB conc (test 31.8 g/dL 31.5-36.2 code = mean corpuscular HGB conc) red cell distribution width (test 13.5 % 11.5-15.5 code = red cell distribution width) Platelets [#/volume] in Blood (test 282 K/uL 137-338 code = 99830-3) Platelet mean volume [Entitic 5.8 fL 8.4-11.8 L volume] in Blood (test code = 98692-9) Neutrophils.band form/100 64.4 % 44.4-80.1 leukocytes in Blood (test code = 79778-2) Lymphocytes/100 leukocytes in Body 24.8 % 10.0-50.0 fluid (test code = 24744-3) Monocytes/100 leukocytes in Blood 7.2 % 3.6-12.0 by Automated count (test code = 5905-5) Eosinophils/100 leukocytes in Blood 2.0 % 0.0-5.4 by Automated count (test code = 713-8) Basophils/100 leukocytes in 1.6 % 0.0-0.79 H Unspecified specimen (test code = 76722-2) [id number] 12:55:00 Test Item Value Reference Range Interpretation Comments prothrombin time (test code = 10.1 seconds 10.3-12.3 L prothrombin time) INR in Blood by Coagulation 0.92 assay (test code = 80132-8) [facility] [id number] 12:55:00 Test Item Value Reference Range Interpretation Comments INR in Blood by Coagulation 28.2 seconds 22.5-37.0 assay (test code = 37620-8) [facility] metabolic 2000 panel - Serum or [id number] 12:55:00 Test Item Value Reference Range Interpretation [...] code = calcium 10.0 mg/dL 8.6-10.0 level) [facility] W Auto Differential panel - [id number] 12:55:00 Test Item Value Reference Range Interpretation Comments white blood count (test code = 11.0 K/uL 4.0-11.5 white blood count) red blood count (test code = red 5.16 M/uL 3.80-5.20 blood count) Hemoglobin [Mass/volume] in Blood 14.4 g/dL 10.5-15.7 (test code = 718-7) hematocrit (test code = hematocrit) 45.2 % 34.0-50.0 Erythrocyte mean corpuscular volume 87.6 fL 78-98 [Entitic volume] (test code = 49520-4) Erythrocyte mean corpuscular 27.9 pg 26.2-33.4 hemoglobin [Entitic mass] (test code = 20584-6) mean corpuscular HGB conc (test 31.8 g/dL 31.5-36.2 code = mean corpuscular HGB conc) red cell distribution width (test 13.5 % 11.5-15.5 code = red cell distribution width) Platelets [#/volume] in Blood (test 282 K/uL 137-338 code = 44319-6) Platelet mean volume [Entitic 5.8 fL 8.4-11.8 L volume] in Blood (test code = 29479-6) Neutrophils.band form/100 64.4 % 44.4-80.1 leukocytes in Blood (test code = 19709-1) Lymphocytes/100 leukocytes in Body 24.8 % 10.0-50.0 fluid (test code = 10612-6) Monocytes/100 leukocytes in Blood 7.2 % 3.6-12.0 by Automated count (test code = 5905-5) Eosinophils/100 leukocytes in Blood 2.0 % 0.0-5.4 by Automated count (test code = 713-8) Basophils/100 leukocytes in 1.6 % 0.0-0.79 H Unspecified specimen (test code = 64074-0) [facility]/[id number] 12:55:00 Test Item Value Reference Range Interpretation Comments prothrombin time (test code = 10.1 seconds 10.3-12.3 L prothrombin time) INR in Blood by Coagulation 0.92 assay (test code = 83719-4) [facility] [id number] 12:55:00 Test Item Value Reference Range Interpretation Comments INR in Blood by Coagulation 28.2 seconds 22.5-37.0 assay (test code = 06425-3) [facility] Health[facility] metabolic 2000 panel - Serum or [id number] 12:55:00 Test Item Value Reference Range Interpretation [...] code = calcium 10.0 mg/dL 8.6-10.0 level) [facility] W Auto Differential panel - [id number] 12:55:00 Test Item Value Reference Range Interpretation Comments white blood count (test code = 11.0 K/uL 4.0-11.5 white blood count) red blood count (test code = red 5.16 M/uL 3.80-5.20 blood count) Hemoglobin [Mass/volume] in Blood 14.4 g/dL 10.5-15.7 (test code = 718-7) hematocrit (test code = hematocrit) 45.2 % 34.0-50.0 Erythrocyte mean corpuscular volume 87.6 fL 78-98 [Entitic volume] (test code = 66489-0) Erythrocyte mean corpuscular 27.9 pg 26.2-33.4 hemoglobin [Entitic mass] (test code = 08182-5) mean corpuscular HGB conc (test 31.8 g/dL 31.5-36.2 code = mean corpuscular HGB conc) red cell distribution width (test 13.5 % 11.5-15.5 code = red cell distribution width) Platelets [#/volume] in Blood (test 282 K/uL 137-338 code = 09090-8) Platelet mean volume [Entitic 5.8 fL 8.4-11.8 L volume] in Blood (test code = 25577-7) Neutrophils.band form/100 64.4 % 44.4-80.1 leukocytes in Blood (test code = 43071-2) Lymphocytes/100 leukocytes in Body 24.8 % 10.0-50.0 fluid (test code = 35067-7) Monocytes/100 leukocytes in Blood 7.2 % 3.6-12.0 by Automated count (test code = 5905-5) Eosinophils/100 leukocytes in Blood 2.0 % 0.0-5.4 by Automated count (test code = 713-8) Basophils/100 leukocytes in 1.6 % 0.0-0.79 H Unspecified specimen (test code = 38594-0) [facility]/[id number] 12:55:00 Test Item Value Reference Range Interpretation Comments prothrombin time (test code = 10.1 seconds 10.3-12.3 L prothrombin time) INR in Blood by Coagulation 0.92 assay (test code = 07854-4) [facility] [id number] 12:55:00 Test Item Value Reference Range Interpretation Comments INR in Blood by Coagulation 28.2 seconds 22.5-37.0 assay (test code = 08754-3) [facility] metabolic 2000 panel - Serum or [id number] 12:55:00 Test Item Value Reference Range Interpretation [...] code = calcium 10.0 mg/dL 8.6-10.0 level) [facility] metabolic 2000 panel - Serum or [id number] 12:51:00 Test Item Value Reference Range Interpretation [...] code = calcium 9.8 mg/dL 8.6-10.0 level) [facility] HealthRaptxshfqfybxmhc4197-22-66 09:27:00 Test Item Value Reference Range Interpretation Comments Right (test code = Right) Type A Normal Left (test code = Left) Type A Normal [facility] HealthDpgymjdmyyazpaie2480-28-36 09:27:00 Test Item Value Reference Range Interpretation Comments Right (test code = Right) Type A Normal Left (test code = Left) Type A Normal [facility] HealthUrinalysis complete W Reflex Culture panel - Urine 2018-08-06 07:50:00 Test Item Value Reference Range Interpretation Comments Color of Urine by Auto (test light yellow code = 84234-0) Appearance of Urine (test code clear clear = 5767-9) Glucose [Presence] in Urine by =2+ (150 negative H Automated test strip (test code = 64368-6) Bilirubin.total [Mass/volume] negative negative in Urine (test code = 1978-6) Ketones [Mass/volume] in Urine trace negative by Automated test strip (test code = 83510-1) Specific gravity of Urine by 1.010 1.003-1.030 Automated test strip (test code = 83825-8) blood urine (test code = blood negative negative urine) pH of Urine (test code = 5.000 5-9 2756-5) protein urine (UA) (test code = negative negative protein urine (UA)) Urobilinogen [Presence] in normal 0.2-1.0 Urine (test code = 57860-5) Nitrite [Presence] in Urine by negative negative Test strip (test code = 5802-4) Leukocyte esterase [Presence] negative negative in Urine by Automated test strip (test code = 82057-5) Erythrocytes [#/volume] in <1 0-5 Urine by Automated count (test code = 798-9) Leukocytes [#/area] in Urine <1 0-5 sediment by Automated count (test code = 98043-7) Epithelial cells [Presence] in =1-5 0-5 Urine sediment by Light microscopy (test code = 40398-7) Bacteria identified in Urine by none detected none detect Culture (test code = 630-4) Casts [#/area] in Urine none detected none detect sediment by Automated count (test code = 90718-2) urine culture added? (test code no = urine culture added?) [facility] W Auto Differential panel - [id number] 12:04:00 Test Item Value Reference Range Interpretation Comments white blood count (test code = 9.9 K/uL 4.0-11.5 white blood count) red blood count (test code = red 5.20 M/uL 3.80-5.20 blood count) Hemoglobin [Mass/volume] in Blood 15.4 g/dL 10.5-15.7 (test code = 718-7) hematocrit (test code = hematocrit) 46.4 % 34.0-50.0 Erythrocyte mean corpuscular volume 89.4 fL 78-98 [Entitic volume] (test code = 80431-4) Erythrocyte mean corpuscular 29.6 pg 26.2-33.4 hemoglobin [Entitic mass] (test code = 22915-2) mean corpuscular HGB conc (test 33.1 g/dL 31.5-36.2 code = mean corpuscular HGB conc) red cell distribution width (test 12.7 % 11.5-15.5 code = red cell distribution width) Platelets [#/volume] in Blood (test 242 K/uL 137-338 code = 73593-5) Platelet mean volume [Entitic 6.5 fL 8.4-11.8 L volume] in Blood (test code = 48336-5) Neutrophils.band form/100 59.1 % 44.4-80.1 leukocytes in Blood (test code = 70537-7) Lymphocytes/100 leukocytes in Body 31.3 % 10.0-50.0 fluid (test code = 02948-6) Monocytes/100 leukocytes in Blood 5.7 % 3.6-12.04 by Automated count (test code = 5905-5) Eosinophils/100 leukocytes in Blood 2.8 % 0.0-5.41 by Automated count (test code = 713-8) Basophils/100 leukocytes in Blood 1.2 % 0.0-0.79 H by Automated count (test code = 706-2) [facility] Healthdifferential panel, [id number] 12:04:00 NeutrophilsBandLymphocyteAtypical LymphMonocyteEosinophilBasophilPlatelet EstimatePlatelet MorphologyHypochromasiaAnisocytosisMicrocytosisRouleTippah County HospitalBasic metabolic 2000 panel - Serum or [id number] 12:04:00 Test Item Value Reference Range Interpretation [...] code = calcium 9.7 mg/dL 8.6-10.0 level) [facility]PT/[id number] 12:04:00 Test Item Value Reference Range Interpretation Comments prothrombin time (test code = 9.9 seconds 10.3-12.3 L prothrombin time) INR in Blood by Coagulation assay 0.90 (test code = 54612-9) [facility] [id number] 12:04:00 Test Item Value Reference Range Interpretation Comments INR in Blood by Coagulation 27.0 seconds 22.5-37.0 assay (test code = 36010-8) [facility] HealthFgffcmwdoudqvanl0580-04-92 10:00:34 Test Item Value Reference Range Interpretation Comments Right (test code = Right) Type A Normal Left (test code = Left) Type A Normal [facility] HealthAxinhlefzipyraon2671-04-44 10:00:34 Test Item Value Reference Range Interpretation Comments Right (test code = Right) Type A Normal Left (test code = Left) Type A Normal [facility] HealthTISSUE [id number] 08:52:00Surgical Pathology Report Case: [id number] Authorizing Provider: Manuel Escalera MD Collected: 1025 Ordering Location: [facility] Received: 11/30/2017 1255 SERVICES Pathologist: Tony Vallejo MD Specimen: Kidney, Left PART A KIDNEY, LEFT, NEPHRECTOMY (1076 GRAMS):CHRONIC AND ACUTE PYELONEPHRITIS.NO EVIDENCE OF MALIGNANCYFOUR BENIGN LYMPH NODES 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 Signing Pathologist Direct Phone Line: [phone] signed by Tony Vallejo MD on 12/07/2017 at 8:52 AMTwo of the lymph nodes show tubular structures lined by pseudo-stratified epithelium and no stroma. No atypia or mitosis identified. These structures are positive for CK7, PAX-8 and ER and negative for CDX-2 and CK20 compatible with endosalpingiosis (performed on block A20; CK7, CK20, and PAX8 repeated on A21). Proliferative indexfor Ki-67 performed on blocks A20 and A21 demonstrate less than 5% positivity within the areas of endosalpingiosis. Selected slides were reviewed with Dr. 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 77186, 01781, 28637J3, 02395Kqomvaz of left kidney, chronic infection Left kidney Received fresh labeled "kidney, left" is a 1,076 gm, 22.0 x 14.0 x 7.0 cm, left simple nephrectomy specimen with attached surrounding perinephric adipose tissue. The kidney itself measures 15.0 x 7.0 x 4.0 cm. A ureter is not identified. The adrenal gland is not present.There is a 7.0 cm in length x 0.2cm in diameter white plastic stent, which appears to be inserted into the cortical aspect of the specimen.There is a 3.5 x 2.0 cm, ill-defined, dark-red to mary-white, dense area of fibrous adhesions at the hilum, which may possibly be the ureteropelvic junction. The kidney is bivalved to reveal a dila mackenzie pelvis and caliceal system containing yellow-green mucoid material. The surrounding renal parenchyma is pale-camacho and atrophic. No discrete masses are identified.Four pink-camacho to yellow perihilar lymph nodes are identified ranging in size from 1.0 cm to 4.5 cm in greatest dimension. Section code: A1, parallel vascular and possible ureteral resection margins; A2, area of dense insertion; A3-A8, sales representative adding machines sections of area of dense adhesions at possible UPJ; A9- A16, sales representative adding machines sections of pelvis and caliceal system; A17-A18, sales representative adding machines sections of renal parenchyma; A19-A21, one bisected lymph node in each cut surface; A22-A28, one serially sectioned lymph node. DB/ewPerformed.The following special studies were performed on this case and the interpretation is incorporated in the diagnostic report above:BLOCK A20- CK7, CK20, PAX8, ER, KI-67BLOCK A21- CK7, CK20, PAX8, KI-67The immunohistochemistry test was developed and its performance characteristics determined by [facility], Pathology Laboratory. It has not [...] to perform high complexity clinical laboratory testing.BLOOD [id number] 06:00:00 Test Item Value Reference Range Interpretation Comments CULTURE (BEAKER) (test No growth in 5 days code = 1095) POCT-GLUCOSE [id number] 07:56:00 Test Item Value Reference Range Interpretation Comments POC-GLUCOSE METER 287 mg/dL 70-110 H TESTED AT [facility] 67[address] ([place]) (test code = [place] 1538) [address] BASIC METABOLIC [id number] 07:51:00 Test Item Value Reference Range Interpretation [...] 697) EGFR (BEAKER) (test 56 mL/min/1.73 ESTIMA MACKENZIE GFR IS code = 1092) sq m NOT ACCURATE CREATININE CLEARANCE IN PREDICTING GLOMERULAR FILTRATION RATE . ESTIMATED GFR I S NOT APPLICABLE FOR DIALYSIS PATIEN TS. CBC W/PLT COUNT & AUTO [id number] 05:57:00 Test Item Value Reference Range Interpretation [...] PERCENT (BEAKER) (test code = 2801) POCT-GLUCOSE [id number] 21:03:00 Test Item Value Reference Range Interpretation Comments POC-GLUCOSE METER 166 mg/dL 70-110 H TESTED AT [facility] 6720 (BEAKER) (test code = [facility] 1538) [address] POCT-GLUCOSE [id number] 18:19:00 Test Item Value Reference Range Interpretation Comments POC-GLUCOSE METER 199 mg/dL 70-110 H TEST[facility] AT [place] [address] ([facility] (test code = [facility] 1538) [address] POCT-GLUCOSE [id number] 12:08:00 Test Item Value Reference Range Interpretation Comments POC-GLUCOSE METER 160 mg/dL 70-110 H TESTED AT [place] [address] ([facility] (test code = [facility] 1538) [address] POCT-GLUCOSE [id number] 09:10:00 Test Item Value Reference Range Interpretation Comments POC-GLUCOSE METER 170 mg/dL 70-110 H TESTED AT [place] [address] ([place]) (test code = [facility] 1538) [address] BASIC METABOLIC [id number] 07:03:00 Test Item Value Reference Range Interpretation [...] 697) EGFR (BEAKER) (test 71 mL/min/1.73 ESTIMA MACKENZIE GFR IS code = 1092) sq m NOT ACCURATE CREATININE CLEARANCE IN PREDICTING GLOMERULAR FILTRATION RATE . ESTIMATED GFR I S NOT APPLICABLE FOR DIALYSIS PATIEN TS. CBC W/PLT COUNT & AUTO [id number] 06:26:00 Test Item Value Reference Range Interpretation [...] PERCENT (BEAKER) (test code = 2801) POCT-GLUCOSE [id number] 20:55:00 Test Item Value Reference Range Interpretation Comments POC-GLUCOSE METER 219 mg/dL 70-110 H TESTED AT [facility] 6720 (BEAKER) (test code = SYDNEE [place] 2529) [address] BASIC METABOLIC [id number] 13:42:00 Test Item Value Reference Range Interpretation [...] 697) EGFR (BEAKER) (test 59 mL/min/1.73 ESTIMA MACKENZIE GFR IS code = 1092) sq m NOT ACCURATE CREATININE CLEARANCE IN PREDICTING GLOMERULAR FILTRATION RATE . ESTIMATED GFR I S NOT APPLICABLE FOR DIALYSIS PATIEN TS. HEMOGLOBIN AND [id number] 13:15:00 Test Item Value Reference Range Interpretation Comments HEMOGLOBIN (BEAKER) (test code = 10.8 GM/DL 11.2-15.7 L 410) HEMATOCRIT (BEAKER) (test code = 34.0 % 34.1-44.9 L 411) URINE [id number] 10:10:00 Test Item Value Reference Range Interpretation Comments CULTURE (BEAKER) See comment A 70-79,000 c ol/mL (test code = 1095) Raheel a lbicans CALCIUM, [id number] 10:01:00 Test Item Value Reference Range Interpretation Comments CALCIUM IONIZED (BEAKER) (test 1.09 mmol/L 1.12-1.27 L code = 698) PH, BLOOD (BEAKER) (test code = 7.38 1810) BLOOD GAS, [id number] 10:01:00 Test Item Value Reference Range Interpretation [...] code = 1819) 100.0 % SODIUM NA-STAT [id number] 10:01:00 Test Item Value Reference Range Interpretation Comments SODIUM (BEAKER) (test code = 381) 134 meq/L 135-148 L GLUCOSE-STAT [id number] 10:01:00 Test Item Value Reference Range Interpretation Comments GLUCOSE RANDOM (BEAKER) (test code 192 mg/dL 70-110 H = 652) HGB/HCT (H&H) - STAT [id number] 10:01:00 Test Item Value Reference Range Interpretation Comments HEMOGLOBIN (BEAKER) (test code = 11.7 g/dL 12.0-15.0 L 410) HEMATOCRIT (BEAKER) (test code = 34.0 % 36.0-45.0 L 411) POTASSIUM-STAT [id number] 09:56:00 Test Item Value Reference Range Interpretation Comments POTASSIUM (BEAKER) (test code = 4.0 meq/L 3.6-5.5 379) LACTIC ACID, VENOUS, WHOLE [id number] 06:39:00 Test Item Value Reference Range Interpretation Comments LACTATE BLOOD VENOUS 0.7 mmol/L 0.5-2.2 Specime n slightly (2) (BEAKER) (test hemolyzed code = 2872) Effective 12/16/2015: Units/Reference Range ChangeNew: 0.5-2.2 mmol/L Previous: 5- 20 mg/[id number] 06:36:00 Test Item Value Reference Range Interpretation Comments PHOSPHORUS (BEAKER) (test code = 3.7 mg/dL 2.3-4.7 604) [id number] 06:36:00 Test Item Value Reference Range Interpretation Comments MAGNESIUM (BEAKER) (test code = 1.6 mg/dL 1.6-2.6 627) BASIC METABOLIC [id number] 06:36:00 Test Item Value Reference Range Interpretation [...] 697) EGFR (BEAKER) (test 61 mL/min/1.73 ESTIMA MACKENZIE GFR IS code = 1092) sq m NOT ACCURATE CREATININE CLEARANCE IN PREDICTING GLOMERULAR FILTRATION RATE . ESTIMATED GFR I S NOT APPLICABLE FOR DIALYSIS PATIEN TS. POCT-GLUCOSE [id number] 21:05:00 Test Item Value Reference Range Interpretation Comments POC-GLUCOSE METER 215 mg/dL 70-110 H TESTED AT [facility] 67 (BEAKER) (test code = SYDNEE [place] 1538) [address] POCT-GLUCOSE [id number] 17:48:00 Test Item Value Reference Range Interpretation Comments POC-GLUCOSE METER 150 mg/dL 70-110 H TESTED AT [facility] 6720 (BEAKER) (test code = SYDNEE Rendon [place] 1538) [address] POCT-GLUCOSE [id number] 12:00:00 Test Item Value Reference Range Interpretation Comments POC-GLUCOSE METER 204 mg/dL 70-110 H TESTED AT [facility] 6720 (BEAKER) (test code = SYDNEE Rendon [place] 1538) [address] URINE [id number] 08:15:00 Test Item Value Reference Range Interpretation Comments CULTURE (BEAKER) (test 40-49,000 col/mL skin code = 1095) mckenna POCT-GLUCOSE [id number] 07:41:00 Test Item Value Reference Range Interpretation Comments POC-GLUCOSE METER 154 mg/dL 70-110 H TESTED AT [facility] 6720 (BEAKER) (test code = SYDNEE [place] 1538) [address] [id number] 04:29:00 Test Item Value Reference Range Interpretation Comments PHOSPHORUS (BEAKER) (test code = 3.2 mg/dL 2.3-4.7 604) [id number] 04:29:00 Test Item Value Reference Range Interpretation Comments MAGNESIUM (BEAKER) (test code = 1.6 mg/dL 1.6-2.6 627) BASIC METABOLIC [id number] 04:29:00 Test Item Value Reference Range Interpretation [...] 697) EGFR (BEAKER) (test 56 mL/min/1.73 ESTIMA MACKENZIE GFR IS code = 1092) sq m NOT ACCURATE CREATININE CLEARANCE IN PREDICTING GLOMERULAR FILTRATION RATE . ESTIMATED GFR I S NOT APPLICABLE FOR DIALYSIS PATIEN TS. LACTIC ACID, VENOUS, WHOLE [id number] 04:27:00 Test Item Value Reference Range Interpretation Comments LACTATE BLOOD VENOUS (2) (BEAKER) 0.7 mmol/L 0.5-2.2 (test code = 2872) Effective 12/16/2015: Units/Reference Range ChangeNew: 0.5-2.2 mmol/L Previous: 5- 20 mg/dLCBC W/PLT COUNT & AUTO [id number] 04:11:00 Test Item Value Reference Range Interpretation [...] PERCENT (ARRON) (test code = 2801) POCT-GLUCOSE [id number] 22:31:00 Test Item Value Reference Range Interpretation Comments POC-GLUCOSE METER 206 mg/dL 70-110 H TESTED AT [facility] 6720 (ARRON) (test code = SYDNEE Rendon [facility] 1538) [address] POCT-GLUCOSE [id number] 17:31:00 Test Item Value Reference Range Interpretation Comments POC-GLUCOSE METER 207 mg/dL 70-110 H TESTED AT [facility] 6720 (ARRON) (test code = SYDNEE Rendon [facility] 1538) [address] ANG, NEPHROSTOMY, PERC, EXTERNAL [id number] 14:49:00Reason for exam:- >Needs left nephrostomy tube. [...] needle. The tract was dilated to 8 Icelandic. A small bore catheter was advanced into [...] Esquivel Verified Date/Time: 11/28/2017 14:49:28 Reading Location: [facility] P048 Angio Body Reading Room POCT- GLUCOSE [id number] 11:01:00 Test Item Value Reference Range Interpretation Comments POC-GLUCOSE METER 195 mg/dL 70-110 H TESTED AT [facility] 67 (BANNER) (test code = SYDNEE [place]end[place] 1538) [address] POCT-LACTIC ACID, [id number] 04:41:00 Test Item Value Reference Range Interpretation Comments POC-LACTIC ACID, 1.2 mmol/L 0.9-1.7 TESTED AT [facility] 6720 VENOUS (BANNER) ([facility] [place] code = 2805) [address] LEGIONELLA ANTIGEN, [id number] 04:06:00 Test Item Value Reference Range Interpretation Comments L. PNEUMOPHILA Negative - see Negative fo r L. SEROGP 1 UR AG comment pneumophila (BANNER) (test code serogrou p 1 antigen, = 1156) suggesting no r ecent or current infe ction with this serog roup. Legionellosis c annot be ruled out si nce other serogroup s and species may cau se disease. STREP PNEUMONIAE [id number] 04:04:00 Test Item Value Reference Range Interpretation Comments STREP PNEUMONIAE Presumptive negative Presumptive negative ANTIGEN (BANNER) for pneumococcal for pneumococcal (test code = 1615) pneumonia - see pneumonia - see comment commen Presumptive negative for pneumococcal pneumonia, suggesting no current or recent pneumococcal infection. Infection due to S. pneumoniae cannot be ruled out since the antigen present in the sample may be below the detection limit of the test.PROTHROMBIN TIME/[id number] 02:58:00 Test Item Value Reference Range Interpretation Comments PROTIME (REGINAAKER) (test code = 14.1 seconds 11.7-14.7 759) INR (BANNER) (test code = 370) 1.1 <=5.9 RECOMMENDED COUMADIN/WARFARIN INR THERAPY RANGESSTANDARD DOSE: 2.0 - 3.0 Includes: PROPHYLAXIS for venous thrombosis, systemic embolization; TREATMENT for venous thrombosis and/or pulmonary embolus.HIGH RISK: Target INR is 2.5-3.5 for patients with mechanical heart valves.[id number] 02:56:00 Test Item Value Reference Range Interpretation Comments PHOSPHORUS (BEAKER) (test code = 3.2 mg/dL 2.3-4.7 604) [id number] 02:56:00 Test Item Value Reference Range Interpretation Comments MAGNESIUM (BEAKER) (test code = 1.9 mg/dL 1.6-2.6 627) HEPATIC FUNCTION [id number] 02:56:00 Test Item Value Reference Range Interpretation [...] = 17 U/L 6-55 347) BASIC METABOLIC [id number] 02:30:00 Test Item Value Reference Range Interpretation [...] 697) EGFR (BEAKER) (test 41 mL/min/1.73 ESTIMA MACKENZIE GFR IS code = 1092) sq m NOT ACCURATE CREATININE CLEARANCE IN PREDICTING GLOMERULAR FILTRATION RATE . ESTIMATED GFR I S NOT APPLICABLE FOR DIALYSIS PATIEN TS. LACTIC ACID, VENOUS, WHOLE [id number] 02:26:00 Test Item Value Reference Range Interpretation Comments LACTATE BLOOD VENOUS (2) (BEAKER) 1.3 mmol/L 0.5-2.2 (test code = 2872) Effective 12/16/2015: Units/Reference Range ChangeNew: 0.5-2.2 mmol/L Previous: 5- 20 mg/dLCBC W/PLT COUNT & AUTO [id number] 02:17:00 Test Item Value Reference Range Interpretation [...] (BEAKER) (test code = 2801) POCT-LACTIC ACID, [id number] 02:01:00 Test Item Value Reference Range Interpretation Comments POC-LACTIC ACID, 2.9 mmol/L 0.9-1.7 H TESTED AT [facility] 6720 VENOUS (BEAKER) (test [facility] code = 2805) [address] CT, [id number] 00:55:00Addendum BeginsREPORT STATUS:A Addendum: Benign as well as neoplastic processeswould be included in differential diagnosis for the left UPJ level obstruction. Results including the possibility of an infected obstructed left renal collecting system discussed with Dr. Youngblood. Signed: Sd Poole MDReport Verified Date/Time: 11/28/2017 00:55:04 Reading Location: [address] Reading RoomAddendum EndsFINAL REPORT EXAMINATION: CT [...] Mildly prominent spleen, 13 cm. Signed: Sd Poole MDReport Verified Date/Time: 11/28/2017 00:48:48 Reading Location: [address] Reading Room URINALYSIS W/ [id number] 00:09:00 Test Item Value Reference Range Interpretation [...] code Urine, Clean Catch = 2795) BLOOD [id number] 17:00:00 Test Item Value Reference Range Interpretation Comments CULTURE (BEAKER) (test No growth in 5 days code = 1095) BLOOD [id number] 15:30:00 Test Item Value Reference Range Interpretation [...] required. This sample was tested at the [facility] Clinical Microbiology Laboratory using the [employer] Blood Culture ID Panel. This test is FDA cleared for in vitro diagnostic use and has been verified and approved by the [facility] Clinical Microbiology laboratory for clinical use. Reference Range: Not DetectedBLOOD [id number] 23:00:00 Test Item Value Reference Range Interpretation Comments CULTURE (BEAKER) (test No growth in 5 days code = 1095) MISCELLANEOUS LAB [id number] 14:42:00 Test Item Value Reference Range Interpretation Comments SCAN RESULT (test code = 0844875) Result comments: Coagulase Negative Staphylococcus Species (CoNS) [...] required. This sample was tested at the [facility] Clinical Microbiology Laboratory using the [employer] Blood C ulture ID Panel. This test is FDA cleared for in vitro diagnostic use and has been verified and approved by the [facility] Clinical Microbiology laboratory for clinical use. Reference Range: Not DetectedPOCT-GLUCOSE [id number] 13:10:00 Test Item Value Reference Range Interpretation Comments POC-GLUCOSE METER 196 mg/dL 70-110 H TESTED AT [facility] 6720 [facility] (test code = SYDNEE [place] 1538) [address] URINE [id number] 11:19:00 Test Item Value Reference Range Interpretation Comments CULTURE (BEAKER) (test A >100, 000 col/mL Raheel code = 1095) albicans <10,000 col/mL skin floraPOCT-GLUCOSE [id number] 07:50:00 Test Item Value Reference Range Interpretation Comments POC-GLUCOSE METER 190 mg/dL 70-110 H TESTED AT [facility] 6720 [facility] (test code = [facility] Justice [facility] 1538) [address] [id number] 06:18:00 Test Item Value Reference Range Interpretation Comments PHOSPHORUS (BEAKER) (test code = 3.3 mg/dL 2.3-4.7 604) [id number] 06:18:00 Test Item Value Reference Range Interpretation Comments MAGNESIUM (BEAKER) (test code = 1.4 mg/dL 1.6-2.6 L 627) BASIC METABOLIC [id number] 06:18:00 Test Item Value Reference Range Interpretation [...] 697) EGFR (BEAKER) (test 35 mL/min/1.73 ESTIMA MACKENZIE GFR IS code = 1092) sq m NOT ACCURATE CREATININE CLEARANCE IN PREDICTING GLOMERULAR FILTRATION RATE . ESTIMATED GFR I S NOT APPLICABLE FOR DIALYSIS PATIEN TS. CBC W/PLT COUNT & AUTO [id number] 06:01:00 Test Item Value Reference Range Interpretation [...] PERCENT (BEAKER) (test code = 2801) POCT-GLUCOSE [id number] 21:08:00 Test Item Value Reference Range Interpretation Comments POC-GLUCOSE METER 157 mg/dL 70-110 H TESTED AT [facility] 6720 (BEAKER) (test code = SYDNEE R[place] 1538) [address] POCT-GLUCOSE [id number] 11:59:00 Test Item Value Reference Range Interpretation Comments POC-GLUCOSE METER 151 mg/dL 70-110 H TESTED AT [facility] 6720 (BEAKER) (test code = SYDNEE [place] 1538) [address] CBC W/PLT COUNT & AUTO [id number] 11:31:00 Test Item Value Reference Range Interpretation [...] (BEAKER) (test code Normal = 762) POCT-GLUCOSE [id number] 07:43:00 Test Item Value Reference Range Interpretation Comments POC-GLUCOSE METER 151 mg/dL 70-110 H TESTED AT [facility] 6720 (BEAKER) (test code = SYDNEE [place] 1538) [address] BASIC METABOLIC [id number] 06:24:00 Test Item Value Reference Range Interpretation [...] 697) EGFR (BEAKER) (test 29 mL/min/1.73 ESTIMA MACKENZIE GFR IS code = 1092) sq m NOT ACCURATE CREATININE CLEARANCE IN PREDICTING GLOMERULAR FILTRATION RATE . ESTIMATED GFR I S NOT APPLICABLE FOR DIALYSIS PATIEN TS. [id number] 06:23:00 Test Item Value Reference Range Interpretation Comments PHOSPHORUS (BEAKER) (test code = 3.5 mg/dL 2.3-4.7 604) [id number] 06:23:00 Test Item Value Reference Range Interpretation Comments MAGNESIUM (BEAKER) (test code = 1.7 mg/dL 1.6-2.6 627) POCT-GLUCOSE [id number] 21:50:00 Test Item Value Reference Range Interpretation Comments POC-GLUCOSE METER 205 mg/dL 70-110 H TESTED AT [facility] 6720 (BEAKER) (test code = SY[place]EE [place] 1538) [address] POCT-GLUCOSE [id number] 17:18:00 Test Item Value Reference Range Interpretation Comments POC-GLUCOSE METER 161 mg/dL 70-110 H TESTED AT [facility] 6720 (BEAKER) (test code = SYDNEE Rendon [place] 1538) [address] URINALYSIS W/ [id number] 13:16:00 Test Item Value Reference Range Interpretation [...] 516) SOURCE(BEAKER) (test code = Urine, Voided 9906) POCT-GLUCOSE [id number] 08:34:00 Test Item Value Reference Range Interpretation Comments POC-GLUCOSE METER 154 mg/dL 70-110 H TESTED AT [facility] 6720 (BEAKER) (test code = SYDNEE Rendon [place] 1538) [address] BASIC METABOLIC [id number] 07:34:00 Test Item Value Reference Range Interpretation [...] 697) EGFR (BEAKER) (test 22 mL/min/1.73 ESTIMA MACKENZIE GFR IS code = 1092) sq m NOT ACCURATE CREATININE CLEARANCE IN PREDICTING GLOMERULAR FILTRATION RATE . ESTIMATED GFR I S NOT APPLICABLE FOR DIALYSIS PATIEN TS. [id number] 07:32:00 Test Item Value Reference Range Interpretation Comments PHOSPHORUS (BEAKER) (test code = 3.1 mg/dL 2.3-4.7 604) [id number] 07:32:00 Test Item Value Reference Range Interpretation Comments MAGNESIUM (BEAKER) (test code = 1.6 mg/dL 1.6-2.6 627) CBC W/PLT COUNT & AUTO [id number] 05:48:00 Test Item Value Reference Range Interpretation [...] PERCENT (BEAKER) (test code = 2801) POCT-GLUCOSE [id number] 22:24:00 Test Item Value Reference Range Interpretation Comments POC-GLUCOSE METER 119 mg/dL 70-110 H TESTED AT [place] [address] ([facility] (test code = [facility] Justice [facility] 1538) [address] POCT-GLUCOSE [id number] 17:09:00 Test Item Value Reference Range Interpretation Comments POC-GLUCOSE METER 110 mg/dL 70-110 TESTED AT [place] [address] ([facility] (test code = [facility] Justice [facility] 1538) [address] BLOOD [id number] 17:00:00 Test Item Value Reference Range Interpretation Comments CULTURE (BEAKER) (test No growth in 5 days code = 1095) BLOOD [id number] 17:00:00 Test Item Value Reference Range Interpretation Comments CULTURE (BEAKER) (test No growth in 5 days code = 1095) POCT-GLUCOSE [id number] 11:34:00 Test Item Value Reference Range Interpretation Comments POC-GLUCOSE METER 202 mg/dL 70-110 H TESTED AT [place] [address] ([facility]ANNER) (test code = [facility] 1538) [address] POCT-GLUCOSE [id number] 07:55:00 Test Item Value Reference Range Interpretation Comments POC-GLUCOSE METER 147 mg/dL 70-110 H TESTED AT [place] [address] ([facility] (test code = [facility] 1538) [address] BASIC METABOLIC [id number] 05:37:00 Test Item Value Reference Range Interpretation [...] 697) EGFR (BEAKER) (test 23 mL/min/1.73 ESTIMA MACKENZIE GFR IS code = 1092) sq m NOT ACCURATE CREATININE CLEARANCE IN PREDICTING GLOMERULAR FILTRATION RATE . ESTIMATED GFR I S NOT APPLICABLE FOR DIALYSIS PATIJOCELIN TS. [id number] 05:35:00 Test Item Value Reference Range Interpretation Comments PHOSPHORUS (BEAKER) (test code = 2.8 mg/dL 2.3-4.7 604) [id number] 05:35:00 Test Item Value Reference Range Interpretation Comments MAGNESIUM (BEAKER) (test code = 1.6 mg/dL 1.6-2.6 627) CBC W/PLT COUNT & AUTO [id number] 05:12:00 Test Item Value Reference Range Interpretation [...] PERCENT (BEAKER) (test code = 2801) POCT-GLUCOSE [id number] 22:02:00 Test Item Value Reference Range Interpretation Comments POC-GLUCOSE METER 107 mg/dL 70-110 TESTED AT [facility] 6720 ([facility] (test code = SYDNEE ANDRE 1538) [address] CT, [id number] 20:36:00FINAL REPORT CT of the abdomen and [...] of the mA and/or kV according to patientsize and/or use of iterative reconstruction technique. Discussion: [...] urinoma. Otherwise no significant change. Signed: Casey Page Verified Date/Time: 06/22/2017 20:36:43 Reading Location: [facility] C013W Consult Reading Room POCT- GLUCOSE [id number] 16:27:00 Test Item Value Reference Range Interpretation Comments POC-GLUCOSE METER 136 mg/dL 70-110 H TESTED AT [place] [address] ([facility]) (test code = [facility] 1538) [address] POCT-GLUCOSE [id number] 12:07:00 Test Item Value Reference Range Interpretation Comments POC-GLUCOSE METER 150 mg/dL 70-110 H TESTED AT [place] [address] ([facility]ANNER) (test code = [facility] 1538) [address] POCT-GLUCOSE [id number] 07:45:00 Test Item Value Reference Range Interpretation Comments POC-GLUCOSE METER 201 mg/dL 70-110 H TESTED AT [place] [address] (BEAKER) (test code = SYDNEE [place] 1538) [address] BASIC METABOLIC [id number] 05:21:00 Test Item Value Reference Range Interpretation [...] 697) EGFR (BEAKER) (test 22 mL/min/1.73 ESTIMA MACKENZIE GFR IS code = 1092) sq m NOT ACCURATE CREATININE CLEARANCE IN PREDICTING GLOMERULAR FILTRATION RATE . ESTIMATED GFR I S NOT APPLICABLE FOR DIALYSIS PATIEN TS. [id number] 05:09:00 Test Item Value Reference Range Interpretation Comments MAGNESIUM (BEAKER) 1.5 mg/dL 1.6-2.6 L Specimen slightly (test code = 627) hemolyzed [id number] 05:09:00 Test Item Value Reference Range Interpretation Comments PHOSPHORUS (BEAKER) 2.8 mg/dL 2.3-4.7 Specimen slightly (test code = 604) hemolyzed CBC W/PLT COUNT & AUTO [id number] 04:32:00 Test Item Value Reference Range Interpretation [...] % 0-1 PERCENT (BEAKER) (test code = 2800) POCT-GLUCOSE [id number] 21:34:00 Test Item Value Reference Range Interpretation Comments POC-GLUCOSE METER 104 mg/dL 70-110 TESTED AT [facility] 6720 (BEAKER) (test code = SYDNEE Rendon [place] 1538) [address] POCT-GLUCOSE [id number] 17:16:00 Test Item Value Reference Range Interpretation Comments POC-GLUCOSE METER 262 mg/dL 70-110 H TESTED AT [place] [address] ([facility]) (test code = SYDNEE [place] 1538) [address] URINE [id number] 11:56:00 Test Item Value Reference Range Interpretation Comments CULTURE (BEAKER) (test A 50-59 ,000 col/mL Raheel code = 1095) glabrata 10-19,000 col/ml skin floraPOCT-GLUCOSE [id number] 11:29:00 Test Item Value Reference Range Interpretation Comments POC-GLUCOSE METER 148 mg/dL 70-110 H TESTED AT [place] [address] ([facility]) (test code = SYDNEE [place] 1538) [address] POCT-GLUCOSE [id number] 08:58:00 Test Item Value Reference Range Interpretation Comments POC-GLUCOSE METER 141 mg/dL 70-110 H TESTED AT [place] [address] ([facility]) (test code = SYDNEE [place] 1538) [address] BASIC METABOLIC [id number] 05:45:00 Test Item Value Reference Range Interpretation [...] 697) EGFR (BEAKER) (test 26 mL/min/1.73 ESTIMA MACKENZIE GFR IS code = 1092) sq m NOT ACCURATE CREATININE CLEARANCE IN PREDICTING GLOMERULAR FILTRATION RATE . ESTIMATED GFR I S NOT APPLICABLE FOR DIALYSIS PATIEN TS. [id number] 05:30:00 Test Item Value Reference Range Interpretation Comments PHOSPHORUS (BEAKER) (test code = 2.8 mg/dL 2.3-4.7 604) [id number] 05:30:00 Test Item Value Reference Range Interpretation Comments MAGNESIUM (BEAKER) (test code = 1.6 mg/dL 1.6-2.6 627) CBC W/PLT COUNT & AUTO [id number] 05:07:00 Test Item Value Reference Range Interpretation [...] PERCENT (BEAKER) (test code = 2801) POCT-GLUCOSE [id number] 21:04:00 Test Item Value Reference Range Interpretation Comments POC-GLUCOSE METER 139 mg/dL 70-110 H TESTED AT [place] [address] ([facility] (test code = [facility] 1538) [address] POCT-GLUCOSE [id number] 17:13:00 Test Item Value Reference Range Interpretation Comments POC-GLUCOSE METER 127 mg/dL 70-110 H TESTED AT [place] [address] ([facility]) (test code = [facility] 1538) [address] POCT-GLUCOSE [id number] 11:25:00 Test Item Value Reference Range Interpretation Comments POC-GLUCOSE METER 124 mg/dL 70-110 H TESTED AT [place] [address] ([facility]) (test code = [facility] 1538) [address] POCT-GLUCOSE [id number] 07:28:00 Test Item Value Reference Range Interpretation Comments POC-GLUCOSE METER 137 mg/dL 70-110 H TESTED AT [place] [address] ([facility] (test code = [facility] 1538) [address] [id number] 06:43:00 Test Item Value Reference Range Interpretation Comments PHOSPHORUS (BEAKER) (test code = 2.9 mg/dL 2.3-4.7 604) [id number] 06:43:00 Test Item Value Reference Range Interpretation Comments MAGNESIUM (BEAKER) (test code = 1.6 mg/dL 1.6-2.6 627) BASIC METABOLIC [id number] 06:43:00 Test Item Value Reference Range Interpretation [...] 697) EGFR (BEAKER) (test 37 mL/min/1.73 ESTIMA MACKENZIE GFR IS code = 1092) sq m NOT ACCURATE CREATININE CLEARANCE IN PREDICTING GLOMERULAR FILTRATION RATE . ESTIMATED GFR I S NOT APPLICABLE FOR DIALYSIS PATIEN TS. CBC W/PLT COUNT & AUTO [id number] 05:55:00 Test Item Value Reference Range Interpretation [...] 417) IMMATURE GRANULOCYTES-RELATIVE 1 % 0-1 [facility] (test code = 2801) POCT-GLUCOSE [id number] 21:37:00 Test Item Value Reference Range Interpretation Comments POC-GLUCOSE METER 143 mg/dL 70-110 H TESTED AT [place] [address] ([facility]) (test code = [facility] 1538) [address] POCT-GLUCOSE [id number] 18:04:00 Test Item Value Reference Range Interpretation Comments POC-GLUCOSE METER 143 mg/dL 70-110 H TESTED AT [place] [address] ([facility]) (test code = [facility] 1538) [address] VANCOMYCIN LEVEL, [id number] 15:00:00 Test Item Value Reference Range Interpretation Comments VANCOMYCIN TROUGH ([facility]) (test 9.0 ug/mL 10.0-20.0 L code = 522) Please hold next vanc dose until vanc trough results.TISSUE [id number] 14:20:00Surgical Pathology Report Case: [id number] Authorizing Provider: Manuel Escalera MD Collected: 06/13/2017 5256 Ordering Location: [facility] PERIOPERATIVE Received: 06/14/2017 0753 SERVICES Pathologist: Aquilino Diaz MD Specimen: Soft Tissue, Other, right upj segment RENAL PELVIS, RIGHT URET EROPELVIC JUNCTION, BIOPSY:- HAPHAZARD ARRANGEMENT OF SMOOTH MUSCLE BUNDLES WITH JENNIFER-MUSCULAR FIBROSIS, CONSISTENT WITH URETEROPELVIC JUNCTION OBSTRUCTION- NEGATIVE FOR DYSPLASIA OR MALIGNANCY SigningPathologist Direct Phone Line: [phone] signed by Aquilino Diaz MD on 06/19/2017 at 2:20 [id number] obstructionRight UPJ segmentReceived fresh labeled "right UPJ segment" are two irregular pink-camacho to mary-white rubbery fragments of soft tissue measuring 1.5 x 1.0 x 0.2 cm in aggregate. Sectioning reveals no discrete masses. The specimen is entirely submitted in cassette A1. DB/plPerformed.POCT- GLUCOSE [id number] 13:48:00 Test Item Value Reference Range Interpretation Comments POC-GLUCOSE METER 156 mg/dL 70-110 H TESTED AT [facility] 67 ([place]ANNER) (test code = SY[place]EE [place] 1538) [address] RAD, CHEST, 2 [id number] 10:31:00Reason for exam:->feverFINAL REPORT Chest x-ray, PA [...] Monson Verified Date/Time: 06/19/2017 10:31:11 Reading Location: [facility] Radiology Reading Room POCT-GLUCOSE [id number] 07:32:00 Test Item Value Reference Range Interpretation Comments POC-GLUCOSE METER 163 mg/dL 70-110 H TESTED AT [facility] 6720 ([place]) (test code = [place]EE [place]endon [place] 1538) [address] [id number] 06:28:00 Test Item Value Reference Range Interpretation Comments PHOSPHORUS (B[place]) (test code = 4.0 mg/dL 2.3-4.7 604) [id number] 06:28:00 Test Item Value Reference Range Interpretation Comments MAGNESIUM (BEAKER) (test code = 1.9 mg/dL 1.6-2.6 627) BASIC METABOLIC [id number] 06:28:00 Test Item Value Reference Range Interpretation [...] 697) EGFR (BEAKER) (test 31 mL/min/1.73 ESTIMA MACKENZIE GFR IS code = 1092) sq m NOT ACCURATE CREATININE CLEARANCE IN PREDICTING GLOMERULAR FILTRATION RATE . ESTIMATED GFR I S NOT APPLICABLE FOR DIALYSIS PATIEN TS. CBC W/PLT COUNT & AUTO [id number] 06:27:00 Test Item Value Reference Range Interpretation [...] PERCENT (BEAKER) (test code = 2801) POCT-GLUCOSE [id number] 21:24:00 Test Item Value Reference Range Interpretation Comments POC-GLUCOSE METER 172 mg/dL 70-110 H TESTED AT [place] [address] [facility] (test code = [place] 1538) [address] POCT-GLUCOSE [id number] 17:00:00 Test Item Value Reference Range Interpretation Comments POC-GLUCOSE METER 164 mg/dL 70-110 H TESTED AT [place] [address] ([place]) (test code = [place]EE [place] 1538) [address] POCT-GLUCOSE [id number] 13:16:00 Test Item Value Reference Range Interpretation Comments POC-GLUCOSE METER 168 mg/dL 70-110 H TESTED AT [place] [address] ([place]) (test code = [place]EE [place] 1538) [address] POCT-GLUCOSE [id number] 07:26:00 Test Item Value Reference Range Interpretation Comments POC-GLUCOSE METER 164 mg/dL 70-110 H TESTED AT [facility] 6720 (BEAKER) (test code = [place]EE [place] 1538) [address] BASIC METABOLIC [id number] 05:05:00 Test Item Value Reference Range Interpretation [...] 697) EGFR (BEAKER) (test 38 mL/min/1.73 ESTIMA MACKENZIE GFR IS code = 1092) sq m NOT ACCURATE CREATININE CLEARANCE IN PREDICTING GLOMERULAR FILTRATION RATE . ESTIMATED GFR I S NOT APPLICABLE FOR DIALYSIS PATIEN TS. [id number] 05:04:00 Test Item Value Reference Range Interpretation Comments PHOSPHORUS (BEAKER) (test code = 4.8 mg/dL 2.3-4.7 H 604) [id number] 05:04:00 Test Item Value Reference Range Interpretation Comments MAGNESIUM (BEAKER) (test code = 1.6 mg/dL 1.6-2.6 627) CBC W/PLT COUNT & AUTO [id number] 03:57:00 Test Item Value Reference Range Interpretation [...] PERCENT (BEAKER) (test code = 2801) CT, [id number] 20:27:00Reason for exam:->flank pain s/p pyeloplasty FINAL [...] MDReport Verified Date/Time: 06/17/2017 20:27:27 Reading Location: [address] Reading Room Electronically signedby: HOMERO AMBROSIO [...] 150-430 (test code = 756) BASIC METABOLIC [id number] 20:18:00 Test Item Value Reference Range Interpretation [...] 697) EGFR (BEAKER) (test 42 mL/min/1.73 ESTIMA MACKENZIE GFR IS code = 1092) sq m NOT ACCURATE CREATININE CLEARANCE IN PREDICTING GLOMERULAR FILTRATION RATE . ESTIMATED GFR I S NOT APPLICABLE FOR DIALYSIS PATIEN TS. POCT-GLUCOSE [id number] 12:06:00 Test Item Value Reference Range Interpretation Comments POC-GLUCOSE METER 160 mg/dL 70-110 H TESTED AT [facility] 6720 ([facility] (test code = [place] 1538) [address] POCT-GLUCOSE [id number] 07:33:00 Test Item Value Reference Range Interpretation Comments POC-GLUCOSE METER 246 mg/dL 70-110 H TESTED AT [facility] 6720 ([facility] (test code = [place] 1538) [address] POCT-GLUCOSE [id number] 22:02:00 Test Item Value Reference Range Interpretation Comments POC-GLUCOSE METER 206 mg/dL 70-110 H TESTED AT [place] [address] ([facility] (test code = SYDNEE Rendon [facility] 1538) [address] POCT-GLUCOSE [id number] 17:55:00 Test Item Value Reference Range Interpretation Comments POC-GLUCOSE METER 265 mg/dL 70-110 H TESTED AT [place] [address] ([place]) (test code = [facility] Justice [facility] 1538) [address] POCT-GLUCOSE [id number] 08:39:00 Test Item Value Reference Range Interpretation Comments POC-GLUCOSE METER 189 mg/dL 70-110 H TESTED AT [place] [address] ([place]) (test code = [facility] Justice [facility] 1538) [address] POCT-GLUCOSE [id number] 07:44:00 Test Item Value Reference Range Interpretation Comments POC-GLUCOSE METER 173 mg/dL 70-110 H TESTED AT [place] [address] ([place]) (test code = [facility] Justice [facility] 1538) [address] BASIC METABOLIC [id number] 06:49:00 Test Item Value Reference Range Interpretation [...] 697) EGFR (BEAKER) (test 80 mL/min/1.73 ESTIMA MACKENZIE GFR IS code = 1092) sq m NOT ACCURATE CREATININE CLEARANCE IN PREDICTING GLOMERULAR FILTRATION RATE . ESTIMATED GFR I S NOT APPLICABLE FOR DIALYSIS PATIEN TS. HEMOGLOBIN AND [id number] 06:28:00 Test Item Value Reference Range Interpretation Comments HEMOGLOBIN (BEAKER) (test code = 12.3 GM/DL 11.2-15.7 410) HEMATOCRIT (BEAKER) (test code = 38.8 % 34.1-44.9 411) BASIC METABOLIC [id number] 11:05:00 Test Item Value Reference Range Interpretation [...] 697) EGFR (BEAKER) (test 73 mL/min/1.73 ESTIMA MACKENZIE GFR IS code = 1092) sq m NOT ACCURATE CREATININE CLEARANCE IN PREDICTING GLOMERULAR FILTRATION RATE . ESTIMATED GFR I S NOT APPLICABLE FOR DIALYSIS PATIEN TS. HEMOGLOBIN AND [id number] 10:48:00 Test Item Value Reference Range Interpretation Comments HEMOGLOBIN (BEAKER) (test code = 13.4 GM/DL 11.2-15.7 410) HEMATOCRIT (BEAKER) (test code = 41.7 % 34.1-44.9 411) POCT-GLUCOSE [id number] 10:25:00 Test Item Value Reference Range Interpretation Comments POC-GLUCOSE METER 216 mg/dL 70-110 H TESTED AT [facility] 6720 (BEAKER) (test code = SYDNEE [place] 1538) [address] TISSUE [id number] 12:11:00Surgical Pathology Report Case: [id number] Authorizing Provider: Jessica Candelaria MD Collected: 05/02/2017 1147 Ordering Location: [facility] Endoscopy Received: 05/02/2017 1533 Services Pathologist: Tung Connor MD Specimens: A) - Polyp, Colon - Right/Ascending B) - Polyp, Colon - Rectum A. COLON, RIGHT/ASCENDING POLYP, BIOPSY: - FRAGMENT OF TUBULAR ADENOMA (x1) - SEPARATE FRAGMENTS OFUNREMARKABLE COLONIC MUCOSAB. RECTUM, POLYP, BIOPSY: - FRAGMENTS OF HYPERPLASTIC POLYP (x3) Signing Pathologist Direct Phone Line: [phone] signed by Tung Connor MD on 05/03/2017 at 12:11 [id number], large intestine without perforation or abscess without [...] camacho tissue, submitted B1. CG/pl Performed.URINALYSIS W/ [id number] 14:08:00 Test Item Value Reference Range Interpretation [...] SOURCE(BEAKER) (test code = 2795) BASIC METABOLIC [id number] 12:36:00 Test Item Value Reference Range Interpretation [...] 697) EGFR (BEAKER) (test 73 mL/min/1.73 ESTIMA MACKENZIE GFR IS code = 1092) sq m NOT ACCURATE CREATININE CLEARANCE IN PREDICTING GLOMERULAR FILTRATION RATE . ESTIMATED GFR I S NOT APPLICABLE FOR DIALYSIS PATIEN TS. [id number] 11:58:00 Test Item Value Reference Range Interpretation Comments PARTIAL THROMBOPLASTIN TIME 35.7 seconds 22.5-36.0 (BEAKER) (test code = 760) PROTHROMBIN [id number] 11:57:00 Test Item Value Reference Range Interpretation Comments PROTIME (BEAKER) (test code = 13.6 seconds 11.7-14.7 759) INR (BEAKER) (test code = 370) 1.1 <=5.9 RECOMMENDED COUMADIN/WARFARIN INR THERAPY RANGESSTANDARD DOSE: 2.0 - 3.0 Includes: PROPHYLAXIS for venous thrombosis, systemic embolization; TREATMENT for venous thrombosis and/or pulmonary embolus.HIGH RISK: Target INR is 2.5-3.5 for patients with mechanical heart valves.CBC W/PLT COUNT & AUTO [id number] 11:50:00 Test Item Value Reference Range Interpretation [...] PERCENT (BEAKER) (test code = 2801) POCT-GLUCOSE [id number] 17:46:00 Test Item Value Reference Range Interpretation Comments POC-GLUCOSE METER 201 mg/dL 70-110 H TESTED AT [place] [address] ([facility]) (test code = [place]EE [place] 1538) [address] POCT-GLUCOSE [id number] 14:15:00 Test Item Value Reference Range Interpretation Comments POC-GLUCOSE METER 152 mg/dL 70-110 H TESTED AT [place] [address] ([facility]) (test code = SYDNEE [place]end[place] 1538) [address] POCT-GLUCOSE [id number] 08:21:00 Test Item Value Reference Range Interpretation Comments POC-GLUCOSE METER 149 mg/dL 70-110 H TESTED AT [place] [address] ([facility]) (test code = [place]EE [place] 1538) [address] POCT-GLUCOSE [id number] 21:11:00 Test Item Value Reference Range Interpretation Comments POC-GLUCOSE METER 201 mg/dL 70-110 H TESTED AT [place] [address] ([facility]) (test code = SY[place]EE [place] 1538) [address] POCT-GLUCOSE [id number] 18:48:00 Test Item Value Reference Range Interpretation Comments POC-GLUCOSE METER 188 mg/dL 70-110 H TESTED AT [place] [address] ([facility]) (test code = SY[place]EE [place] 1538) [address] POCT-GLUCOSE [id number] 13:32:00 Test Item Value Reference Range Interpretation Comments POC-GLUCOSE METER 151 mg/dL 70-110 H TESTED AT [place] [address] ([place]) (test code = [place]EE [place] 1538) [address] POCT-GLUCOSE [id number] 08:31:00 Test Item Value Reference Range Interpretation Comments POC-GLUCOSE METER 149 mg/dL 70-110 H TESTED AT [place] [address] ([place]) (test code = SY[place]EE [place] 1538) [address] BASIC METABOLIC [id number] 07:11:00 Test Item Value Reference Range Interpretation [...] 697) EGFR (BEAKER) (test 65 mL/min/1.73 ESTIMA MACKENZIE GFR IS code = 1092) sq m NOT ACCURATE CREATININE CLEARANCE IN PREDICTING GLOMERULAR FILTRATION RATE . ESTIMATED GFR I S NOT APPLICABLE FOR DIALYSIS PATIEN TS. CBC W/PLT COUNT & AUTO [id number] 06:53:00 Test Item Value Reference Range Interpretation [...] PERCENT (BEAKER) (test code = 2801) POCT-GLUCOSE [id number] 21:07:00 Test Item Value Reference Range Interpretation Comments POC-GLUCOSE METER 224 mg/dL 70-110 H TEST[facility] AT [place] [address] ([facility] (test code = [facility] 1538) [address] POCT-GLUCOSE [id number] 17:14:00 Test Item Value Reference Range Interpretation Comments POC-GLUCOSE METER 121 mg/dL 70-110 H TESTED AT [place] [address] ([facility] (test code = [facility] 1538) [address] POCT-GLUCOSE [id number] 11:03:00 Test Item Value Reference Range Interpretation Comments POC-GLUCOSE METER 161 mg/dL 70-110 H TESTED AT [place] [address] ([facility] (test code = [facility] 1538) [address] POCT-GLUCOSE [id number] 07:24:00 Test Item Value Reference Range Interpretation Comments POC-GLUCOSE METER 191 mg/dL 70-110 H TESTED AT [place] [address] ([facility] (test code = [facility] 1538) [address] BASIC METABOLIC [id number] 04:45:00 Test Item Value Reference Range Interpretation [...] 697) EGFR (BEAKER) (test 64 mL/min/1.73 ESTIMA MACKENZIE GFR IS code = 1092) sq m NOT ACCURATE CREATININE CLEARANCE IN PREDICTING GLOMERULAR FILTRATION RATE . ESTIMATED GFR I S NOT APPLICABLE FOR DIALYSIS PATIEN TS. POCT-GLUCOSE [id number] 21:03:00 Test Item Value Reference Range Interpretation Comments POC-GLUCOSE METER 164 mg/dL 70-110 H TESTED AT [place] [address] ([facility] ([facility] 1538) [address] BLOOD [id number] 18:00:00 Test Item Value Reference Range Interpretation Comments CULTURE (BEAKER) (test No growth in 5 days code = 1095) BLOOD [id number] 18:00:00 Test Item Value Reference Range Interpretation Comments CULTURE (BEAKER) (test No growth in 5 days code = 1095) POCT-GLUCOSE [id number] 17:18:00 Test Item Value Reference Range Interpretation Comments POC-GLUCOSE METER 154 mg/dL 70-110 H TESTED AT [place] [address] ([facility] (test code = [facility] Justice [facility] 1538) [address] POCT-GLUCOSE [id number] 11:29:00 Test Item Value Reference Range Interpretation Comments POC-GLUCOSE METER 117 mg/dL 70-110 H TESTED AT [place] [address] ([facility] (test code = [facility] 1538) [address] URINE [id number] 09:54:00 Test Item Value Reference Range Interpretation Comments CULTURE (BEAKER) (test code = 1095) No growth POCT-GLUCOSE [id number] 07:34:00 Test Item Value Reference Range Interpretation Comments POC-GLUCOSE METER 120 mg/dL 70-110 H TESTED AT [facility] 6720 (BEAKER) (test code = [place] 1538) [address] BASIC METABOLIC [id number] 05:18:00 Test Item Value Reference Range Interpretation [...] 697) EGFR (BEAKER) (test 69 mL/min/1.73 ESTIMA AMCKENZIE GFR IS code = 1092) sq m NOT ACCURATE CREATININE CLEARANCE IN PREDICTING GLOMERULAR FILTRATION RATE . ESTIMATED GFR I S NOT APPLICABLE FOR DIALYSIS PATIEN TS. CBC W/PLT COUNT & AUTO [id number] 04:59:00 Test Item Value Reference Range Interpretation [...] PERCENT (BEAKER) (test code = 2801) POCT-GLUCOSE [id number] 21:33:00 Test Item Value Reference Range Interpretation Comments POC-GLUCOSE METER 114 mg/dL 70-110 H TESTED AT [place] [address] ([facility]) (test code = [place] 1538) [address] POCT-GLUCOSE [id number] 17:43:00 Test Item Value Reference Range Interpretation Comments POC-GLUCOSE METER 177 mg/dL 70-110 H TESTED AT [place] [address] ([facility]) (test code = [place] 1538) [address] POCT-GLUCOSE [id number] 11:19:00 Test Item Value Reference Range Interpretation Comments POC-GLUCOSE METER 183 mg/dL 70-110 H TESTED AT [place] [address] ([place]) (test code = [place] 1538) [address] POCT-GLUCOSE [id number] 07:56:00 Test Item Value Reference Range Interpretation Comments POC-GLUCOSE METER 131 mg/dL 70-110 H TESTED AT [facility] 6720 (BEAKER) (test code = [place] 1538) [address] BASIC METABOLIC [id number] 07:52:00 Test Item Value Reference Range Interpretation [...] 697) EGFR (BEAKER) (test 67 mL/min/1.73 ESTIMA MACKENZIE GFR IS code = 1092) sq m NOT ACCURATE CREATININE CLEARANCE IN PREDICTING GLOMERULAR FILTRATION RATE . ESTIMATED GFR I S NOT APPLICABLE FOR DIALYSIS PATIEN TS. CBC W/PLT COUNT & AUTO [id number] 06:52:00 Test Item Value Reference Range Interpretation [...] L 0.00-0.20 (test code = 417) 0.00POCT-GLUCOSE [id number] 21:16:00 Test Item Value Reference Range Interpretation Comments POC-GLUCOSE METER 141 mg/dL 70-110 H TESTED AT [place] [address] (BEAKER) (test code = SYDNEE Rendon [facility] 1538) [address] POCT-GLUCOSE [id number] 17:41:00 Test Item Value Reference Range Interpretation Comments POC-GLUCOSE METER 154 mg/dL 70-110 H TESTED AT [facility] 6720 (BEAKER) (test code = SYDNEE Rendon [facility] 1538) [address] URINALYSIS W/ [id number] 15:10:00 Test Item Value Reference Range Interpretation [...] code Urine, Clean Catch = 2795) POCT-GLUCOSE [id number] 12:04:00 Test Item Value Reference Range Interpretation Comments POC-GLUCOSE METER 171 mg/dL 70-110 H TESTED AT [place] [address] (BEAKER) (test code = [facility] 1538) 78148 URINE [id number] 10:02:00 Test Item Value Reference Range Interpretation Comments CULTURE (BEAKER) (test code = 1095) No growth POCT-GLUCOSE [id number] 08:15:00 Test Item Value Reference Range Interpretation Comments POC-GLUCOSE METER 118 mg/dL 70-110 H TESTED AT [place] [address] (BEAKER) (test code = [facility] 1538) [address] BASIC METABOLIC [id number] 05:04:00 Test Item Value Reference Range Interpretation [...] 697) EGFR (BEAKER) (test 74 mL/min/1.73 ESTIMA MACKENZIE GFR IS code = 1092) sq m NOT ACCURATE CREATININE CLEARANCE IN PREDICTING GLOMERULAR FILTRATION RATE . ESTIMATED GFR I S NOT APPLICABLE FOR DIALYSIS PATIEN TS. CBC W/PLT COUNT & AUTO [id number] 04:57:00 Test Item Value Reference Range Interpretation [...] L 0.00-0.20 (test code = 417) 0.00POCT-GLUCOSE [id number] 21:51:00 Test Item Value Reference Range Interpretation Comments POC-GLUCOSE METER 159 mg/dL 70-110 H TESTED AT [facility] 6720 (BEAKER) (test code = SYDNEE Rendon [facility] 1538) [address] RAPID DRUG SCREEN, [id number] 21:21:00 Test Item Value Reference Range Interpretation [...] unconfirmed qualitative test result for the clinical managementof patients in emergency situations. Chain of custody not maintained. Some jlml-jki-pcgopjr medications, as well as adulterants, may cause inaccurate results. Clinical correlation should be applied. A more comprehensive drug screen or confirmation of a detected drug may be performed upon request.POCT- GLUCOSE [id number] 14:21:00 Test Item Value Reference Range Interpretation Comments POC-GLUCOSE METER 113 mg/dL 70-110 H TESTED AT [place] [address] ([facility]) (test code = SYDNEE [place] 1538) [address] [id number] 10:15:00 Test Item Value Reference Range Interpretation Comments RPR SCREEN (BANNER) (test code = Nonreactive Nonreactive 420) URINE [id number] 09:21:00 Test Item Value Reference Range Interpretation Comments CULTURE (BANNER) (test >100,000 col/mL skin code = 1095) mckenna POCT-GLUCOSE [id number] 08:00:00 Test Item Value Reference Range Interpretation Comments POC-GLUCOSE METER 128 mg/dL 70-110 H TESTED AT [place] [address] ([facility]) (test code = SYDNEE Rendon [facility] 1538) [address] CBC (HEMOGRAM ONLY)2017-03-04 07:25:00 Test Item Value Reference Range Interpretation Comments WHITE BLOOD CELL COUNT (AKER) 13.9 K/ L 4.0-10.0 H (test code = 775) RED BLOOD CELL COUNT (BANNER) 4.28 M/ L 4.00-5.00 (test code = 761) HEMOGLOBIN (BEAKER) (test code = 12.1 GM/DL 12.0-15.0 410) HEMATOCRIT (AKER) (test code = 37.9 % 36.0-45.0 411) MEAN CORPUSCULAR VOLUME (AKER) 88.6 fL 82.0-99.0 (test code = 753) MEAN CORPUSCULAR HEMOGLOBIN 28.2 pg 27.0-33.0 (BEAKER) (test code = 751) MEAN CORPUSCULAR HEMOGLOBIN CONC 31.8 GM/DL 32.0-36.0 L (AKER) (test code = 752) RED CELL DISTRIBUTION WIDTH 12.7 % 10.3-14.2 (BEAKER) (test code = 412) PLATELET COUNT (AKER) (test 343 K/CU MM 150-430 code = 756) MEAN PLATELET VOLUME (BEAKER) 6.0 fL 6.5-10.5 L (test code = 754) NUCLEATED RED BLOOD CELLS 0 /100 WBC 0-0 (BEAKER) (test code = 413) 0.00BASIC METABOLIC [id number] 07:02:00 Test Item Value Reference Range Interpretation [...] 697) EGFR (BEAKER) (test 59 mL/min/1.73 ESTIMA MACKENZIE GFR IS code = 1092) sq m NOT ACCURATE CREATININE CLEARANCE IN PREDICTING GLOMERULAR FILTRATION RATE . ESTIMATED GFR I S NOT APPLICABLE FOR DIALYSIS PATIEN TS. POCT-GLUCOSE [id number] 21:33:00 Test Item Value Reference Range Interpretation Comments POC-GLUCOSE METER 163 mg/dL 70-110 H TESTED AT [facility] 6720 (BEAKER) (test code = [place] 1538) [address] URINALYSIS W/ [id number] 18:19:00 Test Item Value Reference Range Interpretation [...] 520) SOURCE(BEAKER) (test code Urine, Straight = 1805) Catheter POCT-GLUCOSE [id number] 16:40:00 Test Item Value Reference Range Interpretation Comments POC-GLUCOSE METER 120 mg/dL 70-110 H TESTED AT [facility] 6720 (BEAKER) (test code = [place]EE [place] 1538) [address] HEPATITIS PANEL, [id number] 10:25:00 Test Item Value Reference Range Interpretation Comments HEPATITIS A IGM ANTIBODY (BEAKER) Nonreactive Nonreactive (test code = 498) HEPATITIS B CORE IGM ANTIBODY Nonreactive Nonreactive (BEAKER) (test code = 645) HEPATITIS C ANTIBODY (BEAKER) Nonreactive Nonreactive (test code = 367) HEPATITIS B SURFACE ANTIGEN (2) Nonreactive Nonreactive (BEAKER) (test code = 2585) HIV-1 ANTIGEN WITH HIV-1/2 [id number] 10:25:00 Test Item Value Reference Range Interpretation Comments HIV-1 ANTIGEN WITH HIV 1\\T\\2 Nonreactive Nonreactive ANTIBODY (2) (BEAKER) (test code = 2586) BASIC METABOLIC [id number] 10:05:00 Test Item Value Reference Range Interpretation [...] 697) EGFR (BEAKER) (test 59 mL/min/1.73 ESTIMA MACKENZIE GFR IS code = 1092) sq m NOT ACCURATE CREATININE CLEARANCE IN PREDICTING GLOMERULAR FILTRATION RATE . ESTIMATED GFR I S NOT APPLICABLE FOR DIALYSIS PATIEN TS. CBC W/PLT COUNT & AUTO [id number] 09:58:00 Test Item Value Reference Range Interpretation [...] L 0.00-0.20 (test code = 417) 0.00POCT-GLUCOSE [id number] 08:28:00 Test Item Value Reference Range Interpretation Comments POC-GLUCOSE METER 134 mg/dL 70-110 H TESTED AT [facility] 6720 (BEAKER) (test code = [place] 1538) [address] POCT-GLUCOSE [id number] 21:33:00 Test Item Value Reference Range Interpretation Comments POC-GLUCOSE METER 142 mg/dL 70-110 H TESTED AT [facility] 6720 (BEAKER) (test code = [place] 1538) [address] URINALYSIS W/ [id number] 13:59:00 Test Item Value Reference Range Interpretation [...] SOURCE(BEAKER) (test code = 2795) COMPREHENSIVE METABOLIC [id number] 12:59:00 Test Item Value Reference Range Interpretation [...] 347) EGFR (BEAKER) (test 73 mL/min/1.73 ESTIMA MACKENZIE GFR IS code = 1092) sq m NOT ACCURATE CREATININE CLEARANCE IN PREDICTING GLOMERULAR FILTRATION RATE . ESTIMATED GFR I S NOT APPLICABLE FOR DIALYSIS PATIEN TS. [id number] 12:31:00 Test Item Value Reference Range Interpretation [...] mechanical heart valves.CBC W/PLT COUNT & AUTO [id number] 12:18:00 Test Item Value Reference Range Interpretation [...] L 0.00-0.20 (test code = 417) 0.00BLOOD [id number] 06:00:00 Test Item Value Reference Range Interpretation Comments CULTURE (BEAKER) (test No growth in 5 days code = 1095) URINE [id number] 13:38:00 Test Item Value Reference Range Interpretation Comments CULTURE (BEAKER) (test A 50-59 ,000 col/mL Raheel code = 1095) albicans <10,000 col/mL Gram Negative byron<10,000 col/mL skin floraURINALYSIS W/ [id number] 03:34:00 Test Item Value Reference Range Interpretation [...] = 516) SOURCE(BEAKER) (test code = 2795) [id number] 02:16:00 Test Item Value Reference Range Interpretation Comments LIPASE (BEAKER) (test code = 749) 8 U/L 8-78 [id number] 02:16:00 Test Item Value Reference Range Interpretation Comments AMYLASE (BEAKER) (test code = 349) 21 U/L 25-125 L BASIC METABOLIC [id number] 02:16:00 Test Item Value Reference Range Interpretation [...] 697) EGFR (BEAKER) (test 69 mL/min/1.73 ESTIMA MACKENZIE GFR IS code = 1092) sq m NOT ACCURATE CREATININE CLEARANCE IN PREDICTING GLOMERULAR FILTRATION RATE . ESTIMATED GFR I S NOT APPLICABLE FOR DIALYSIS PATIEN TS. HEPATIC FUNCTION [id number] 02:16:00 Test Item Value Reference Range Interpretation [...] 6-55 347) CBC W/PLT COUNT & AUTO [id number] 02:05:00 Test Item Value Reference Range Interpretation [...] L 0.00-0.20 (test code = 417) 0.00TISSUE [id number] 16:41:00Surgical Pathology Report Case: [id number] Authorizing Provider: Manuel Escalera MD Collected: 01/23/2017 1827 Ordering Location: [facility] PERIOPERATIVE Received: 01/24/2017 0855 SERVICES Pathologist: Karma Garduno MD Specimen: Soft Tissue, Other, LEFT PROXIMAL URETERAL STRICTURE URETER, LEFT PROXIMAL STRICTURE, EXCISION: - UROTHELIUM LINED WALL WITH ACUTE AND CHRONIC INFLAMMATION, FOCALEROSION AND REACTIVE CHANGES - NEGATIVE FOR DYSPLASIA OR MALIGNANCY Ureteropelvic junction obstructionLeft proximal ureteral strictureThe specimen is received in saline labeled with the patient's information and labeled "left proximal ureteral stricture" and consists of a segment of camacho-pink soft tissue measuring 1.5 x 0.8 x 0.3 cm. The tissue is entirely submitted in A1. CG/ewPerformed.[id number] CULTURE 2017-01-27 08:38:00 Test Item Value Reference Range Interpretation Comments CULTURE (BEAKER) (test No anaerobes isolated code = 1095) SURGICALLY OBTAINED CULTURE + GRAM [id number] 15:59:00 Test Item Value Reference Range Interpretation [...] RESULT 1+ yeast (BEAKER) (test code = 187662) POCT-GLUCOSE [id number] 13:12:00 Test Item Value Reference Range Interpretation Comments POC-GLUCOSE METER 116 mg/dL 70-110 H TESTED AT [facility] 67 (BEAKER) (test code = SYDNEE Rendon [facility] 1538) [id number] POCT-GLUCOSE [id number] 12:02:00 Test Item Value Reference Range Interpretation Comments POC-GLUCOSE METER 142 mg/dL 70-110 H TESTED AT [facility] 67 (BEAKER) (test code = [facility] 1538) [id number] POCT-GLUCOSE [id number] 08:20:00 Test Item Value Reference Range Interpretation Comments POC-GLUCOSE METER 169 mg/dL 70-110 H TESTED AT [place] [address] (BEAKER) (test code = [facility] 1538) [id number] 04:58:00 Test Item Value Reference Range Interpretation Comments PHOSPHORUS (BEAKER) (test code = 2.0 mg/dL 2.3-4.7 L 604) [id number] 04:58:00 Test Item Value Reference Range Interpretation Comments MAGNESIUM (BEAKER) (test code = 2.0 mg/dL 1.6-2.6 627) BASIC METABOLIC [id number] 04:58:00 Test Item Value Reference Range Interpretation [...] 697) EGFR (BEAKER) (test 72 mL/min/1.73 ESTIMA MACKENZIE GFR IS code = 1092) sq m NOT ACCURATE CREATININE CLEARANCE IN PREDICTING GLOMERULAR FILTRATION RATE . ESTIMATED GFR I S NOT APPLICABLE FOR DIALYSIS PATIEN TS. CBC W/PLT COUNT & AUTO [id number] 04:14:00 Test Item Value Reference Range Interpretation [...] L 0.00-0.20 (test code = 417) 0.00POCT-GLUCOSE [id number] 21:38:00 Test Item Value Reference Range Interpretation Comments POC-GLUCOSE METER 137 mg/dL 70-110 H TESTED AT [place] [address] ([place]) (test code = [facility] 1538) [address] POCT-GLUCOSE [id number] 11:40:00 Test Item Value Reference Range Interpretation Comments POC-GLUCOSE METER 187 mg/dL 70-110 H TESTED AT [place] [address] ([place]) (test code = [facility] 1538) [address] POCT-GLUCOSE [id number] 06:44:00 Test Item Value Reference Range Interpretation Comments POC-GLUCOSE METER 160 mg/dL 70-110 H TESTED AT [place] [address] ([place]) (test code = [facility] 1538) [address] BLOOD GAS, [id number] 04:11:00 Test Item Value Reference Range Interpretation [...] (BEAKER) (test code = 1819) 40.0 % [id number] 04:09:00 Test Item Value Reference Range Interpretation Comments PHOSPHORUS (BEAKER) (test code = 2.9 mg/dL 2.3-4.7 604) [id number] 04:09:00 Test Item Value Reference Range Interpretation Comments MAGNESIUM (BEAKER) (test code = 2.1 mg/dL 1.6-2.6 627) BASIC METABOLIC [id number] 04:09:00 Test Item Value Reference Range Interpretation [...] 697) EGFR (BEAKER) (test 74 mL/min/1.73 ESTIMA MACKENZIE GFR IS code = 1092) sq m NOT ACCURATE CREATININE CLEARANCE IN PREDICTING GLOMERULAR FILTRATION RATE . ESTIMATED GFR I S NOT APPLICABLE FOR DIALYSIS PATIEN TS. CBC W/PLT COUNT & AUTO [id number] 03:57:00 Test Item Value Reference Range Interpretation [...] L 0.00-0.20 (test code = 417) 0.00POCT-GLUCOSE [id number] 00:34:00 Test Item Value Reference Range Interpretation Comments POC-GLUCOSE METER 243 mg/dL 70-110 H TESTED AT [facility] 6720 (BEAKER) (test code = [place] 1538) [address] [id number] 21:39:00 Test Item Value Reference Range Interpretation Comments PHOSPHORUS (BEAKER) (test code = 3.7 mg/dL 2.3-4.7 604) [id number] 21:39:00 Test Item Value Reference Range Interpretation Comments MAGNESIUM (BEAKER) (test code = 1.6 mg/dL 1.6-2.6 627) COMPREHENSIVE METABOLIC [id number] 21:39:00 Test Item Value Reference Range Interpretation [...] 347) EGFR (BEAKER) (test 63 mL/min/1.73 ESTIMA MACKENZIE GFR IS code = 1092) sq m NOT ACCURATE CREATININE CLEARANCE IN PREDICTING GLOMERULAR FILTRATION RATE . ESTIMATED GFR I S NOT APPLICABLE FOR DIALYSIS PATIEN TS. CBC W/PLT COUNT & AUTO [id number] 21:24:00 Test Item Value Reference Range Interpretation [...] 0.00-0.20 (test code = 417) 0.00BLOOD GAS, [id number] 21:20:00 Test Item Value Reference Range Interpretation [...] code = 1819) 100.0 % BLOOD GAS, [id number] 18:58:00 Test Item Value Reference Range Interpretation [...] 37.0 C (test code = 1818) GLUCOSE-STAT [id number] 18:58:00 Test Item Value Reference Range Interpretation Comments GLUCOSE RANDOM (BEAKER) (test code 179 mg/dL 70-110 H = 652) CALCIUM, [id number] 18:58:00 Test Item Value Reference Range Interpretation Comments CALCIUM IONIZED (BEAKER) (test 0.96 mmol/L 1.12-1.27 L code = 698) PH, BLOOD (BEAKER) (test code = 7.37 1810) SODIUM NA-STAT [id number] 18:57:00 Test Item Value Reference Range Interpretation Comments SODIUM (BEAKER) (test code = 381) 138 meq/L 135-148 POTASSIUM-STAT [id number] 18:57:00 Test Item Value Reference Range Interpretation Comments POTASSIUM (BEAKER) (test code = 3.8 meq/L 3.6-5.5 379) HGB/HCT (H&H) - STAT [id number] 18:57:00 Test Item Value Reference Range Interpretation Comments HEMOGLOBIN (BEAKER) (test code = 12.8 g/dL 12.0-15.0 410) HEMATOCRIT (BEAKER) (test code = 38.0 % 36.0-45.0 411) SODIUM NA-STAT [id number] 17:20:00 Test Item Value Reference Range Interpretation Comments SODIUM (BEAKER) (test code = 381) 138 meq/L 135-148 POTASSIUM-STAT [id number] 17:20:00 Test Item Value Reference Range Interpretation Comments POTASSIUM (BEAKER) (test code = 3.8 meq/L 3.6-5.5 379) HGB/HCT (H&H) - STAT [id number] 17:20:00 Test Item Value Reference Range Interpretation Comments HEMOGLOBIN (BEAKER) (test code = 12.8 g/dL 12.0-15.0 410) HEMATOCRIT (BEAKER) (test code = 38.0 % 36.0-45.0 411) BLOOD GAS, [id number] 17:20:00 Test Item Value Reference Range Interpretation [...] (test code = 1819) 100.0 % GLUCOSE-STAT [id number] 17:20:00 Test Item Value Reference Range Interpretation Comments GLUCOSE RANDOM (BEAKER) (test code 167 mg/dL 70-110 H = 652) CALCIUM, [id number] 17:20:00 Test Item Value Reference Range Interpretation Comments CALCIUM IONIZED (BEAKER) (test 1.09 mmol/L 1.12-1.27 L code = 698) PH, BLOOD (BEAKER) (test code = 7.38 1810) BLOOD GAS, [id number] 16:34:00 Test Item Value Reference Range Interpretation [...] (test code = 1819) 100.0 % GLUCOSE-STAT [id number] 16:34:00 Test Item Value Reference Range Interpretation Comments GLUCOSE RANDOM (BEAKER) (test code 151 mg/dL 70-110 H = 652) CALCIUM, [id number] 16:34:00 Test Item Value Reference Range Interpretation Comments CALCIUM IONIZED (BEAKER) (test 1.11 mmol/L 1.12-1.27 L code = 698) PH, BLOOD (BEAKER) (test code = 7.31 1810) SODIUM NA-STAT [id number] 16:33:00 Test Item Value Reference Range Interpretation Comments SODIUM (BEAKER) (test code = 381) 139 meq/L 135-148 POTASSIUM-STAT [id number] 16:33:00 Test Item Value Reference Range Interpretation Comments POTASSIUM (BEAKER) (test code = 3.6 meq/L 3.6-5.5 379) HGB/HCT (H&H) - STAT [id number] 16:33:00 Test Item Value Reference Range Interpretation Comments HEMOGLOBIN (BEAKER) (test code = 13.0 g/dL 12.0-15.0 410) HEMATOCRIT (BEAKER) (test code = 38.0 % 36.0-45.0 411) BLOOD GAS, [id number] 15:56:00 Test Item Value Reference Range Interpretation [...] (test code = 1819) 100.0 % GLUCOSE-STAT [id number] 15:56:00 Test Item Value Reference Range Interpretation Comments GLUCOSE RANDOM (BEAKER) (test code 142 mg/dL 70-110 H = 652) CALCIUM, [id number] 15:56:00 Test Item Value Reference Range Interpretation Comments CALCIUM IONIZED (BEAKER) (test 1.03 mmol/L 1.12-1.27 L code = 698) PH, BLOOD (BEAKER) (test code = 7.32 1810) SODIUM NA-STAT [id number] 15:55:00 Test Item Value Reference Range Interpretation Comments SODIUM (BEAKER) (test code = 381) 138 meq/L 135-148 POTASSIUM-STAT [id number] 15:55:00 Test Item Value Reference Range Interpretation Comments POTASSIUM (BEAKER) (test code = 3.8 meq/L 3.6-5.5 379) HGB/HCT (H&H) - STAT [id number] 15:55:00 Test Item Value Reference Range Interpretation Comments HEMOGLOBIN (BEAKER) (test code = 13.5 g/dL 12.0-15.0 410) HEMATOCRIT (BEAKER) (test code = 40.0 % 36.0-45.0 411) URINALYSIS W/ [id number] 13:28:00 Test Item Value Reference Range Interpretation [...] SOURCE(BEAKER) (test code Urine, Clean Catch = 2145) POCT-GLUCOSE [id number] 12:50:00 Test Item Value Reference Range Interpretation Comments POC-GLUCOSE METER 146 mg/dL 70-110 H TESTED AT [facility] 6720 (BEAKER) (test code = [place] 1538) [address] URINE [id number] 09:26:00 Test Item Value Reference Range Interpretation Comments CULTURE (BEAKER) (test A 50-59 ,000 col/mL Myroides code = 1095) speciesMost meseret sely resembles <10,000 col/mL Beta hemolytic strepURINALYSIS W/ [id number] 11:15:00 Test Item Value Reference Range Interpretation [...] SOURCE(BEAKER) (test code = 2795) BASIC METABOLIC [id number] 11:08:00 Test Item Value Reference Range Interpretation [...] 697) EGFR (BEAKER) (test 69 mL/min/1.73 ESTIMA MACKENZIE GFR IS code = 1092) sq m NOT ACCURATE CREATININE CLEARANCE IN PREDICTING GLOMERULAR FILTRATION RATE . ESTIMATED GFR I S NOT APPLICABLE FOR DIALYSIS PATIEN TS. PROTHROMBIN [id number] 10:58:00 Test Item Value Reference Range Interpretation Comments PROTIME (BEAKER) (test code = 12.8 seconds 11.7-14.7 759) INR (BEAKER) (test code = 370) 1.0 <=5.9 RECOMMENDED COUMADIN/WARFARIN INR THERAPY RANGESSTANDARD DOSE: 2.0 - 3.0 Includes: PROPHYLAXIS for venous thrombosis, systemic embolization; TREATMENT for venous thrombosis and/or pulmonary embolus.HIGH RISK: Target INR is 2.5-3.5 for patients with mechanical heart valves.[id number] 10:58:00 Test Item Value Reference Range Interpretation Comments PARTIAL THROMBOPLASTIN TIME 35.7 seconds 22.5-36.0 (BEAKER) (test code = 760) CBC W/PLT COUNT & AUTO [id number] 10:48:00 Test Item Value Reference Range Interpretation [...]
[2023-03-19 10:52] LABS: Absolute Lymphocytes (CBC) 2.2 K/uL (0.7-4.9); Hematocrit 44.7 % (36.0-45.0); MCV 84.7 fL (80-100); MPV 7.2 fL (7.6-11.3); Platelets 244 thou/uL (152-406); RBC Red Blood Cell Count 5.27 M/uL (3.86-4.86)
[2023-03-19] MEDS ORDERED: NA CHLORIDE 0.9% 1,000 ML ONE (10:54)
[2023-03-19 11:10] LABS: Albumin 3.3 g/dL (3.4-5.0); Bilirubin Total 0.4 mg/dL (0.2-1.0); Potassium 4.1 mEq/L (3.5-5.1); Protein, Total 7.2 g/dL (6.4-8.2)
--- NOTE | 2023-03-19 13:16 | RAD REPORT ---
EXAM DESCRIPTION: CT - Abdomen Pelvis Wo Contrast - 03/19/2023 1:03 pm CLINICAL HISTORY: Abdominal pain COMPARISON: 2020 TECHNIQUE: Computed axial tomography of the abdomen and pelvis was obtained. IV was not requested. O ral contrast was given. Coronal reconstructions performed. All CT scans are performed using dose optimization technique as appropriate and may include automated exposure control or mA/KV adjustment according to patient size. FINDINGS: The evaluation of solid organs and vessels is limited secondary to the lack of contrast a dministration. Fatty liver Cholecystectomy The spleen, pancreas and adrenals appear grossly normal. Left nephrectomy. Tiny right renal calculi. No hydronephrosis. The appendix is normal. Diverticula stem from the colon without visualization diverticulitis. Hysterectomy. No adnexal mass. Small umbilical hernia IMPRESSION: Left nephrectomy Tiny nonobstructing right renal calculi
--- NOTE | 2023-03-19 14:21 | ER ---
Nurse's Notes [facility] Name: Ankita Todd Age: 62 yrs Sex: Female : 1960 Arrival Date: 03/19/2023 Time: 09:50 Bed 7 Private MD: Diagnosis: Constipation Presentation: 03/19 10:31 Chief complaint: Patient states: constipated X 2 weeks, had a little diarrhea but iw that's it,also having abd pain. Coronavirus screen: At this time, the client does not indicate any symptoms associated with coronavirus-19. Ebola Screen: Patient negative for fever greater than or equal to 101.5 degrees Fahrenheit, and additional compatible Ebola Virus Disease symptoms Patient denies exposure to infectious person. Patient denies travel to an Ebola-affected area in the 21 days before illness onset. No symptoms or risks identified at this time. Initial Sepsis Screen: Does the patient meet any 2 criteria? No. Patient's initial sepsis screen is negative. Does the patient have a suspected source of infection? No. Patient's initial sepsis screen is negative. Risk Assessment: Do you want to hurt yourself or someone else? Patient reports no desire to harm self or others. Onset of symptoms was March 07, 2023. 10:31 Method Of Arrival: Ambulatory iw 10:31 Acuity: BRYAN 3 iw Historical: - Allergies: 10:32 Benadryl; iw 10:32 Diflucan; iw 10:32 Morphine (Doesn't Work); iw 10:32 Nitrofurantoin Macrocrystal; iw 10:32 oral antifungals; iw 10:32 tramadol; iw - PMHx: 10:32 Anxiety; Colitis; Diabetes - NIDDM; High Cholesterol; Hypertension; kidney stent; Sleep iw Apnea; - Immunization history:: Adult Immunizations. - Social history:: Smoking status: Patient reports the use of cigarette tobacco products. Screenin:49 [facility] ED Fall Risk Assessment (Adult) History of falling in the last 3 months, vg1 including since admission Yes- single mechanical fall (1 pt) Confusion or Disorientation No (0 pts) Intoxicated or Sedated No (0 pts) Impaired Gait No (0 pts) Mobility Assist Device Used No (0 pt) Altered Elimination No (0 pt) Score/Fall Risk Level 0 - 2 = Low Risk Oriented to surroundings, Maintained a safe environment, Educated pt \\T\\ family on fall prevention, incl call for assistance when getting out of bed, Assessed \\T\\ reinforced patient's understanding of fall precautions. Abuse screen: Denies threats or abuse. Denies injuries from another. Nutritional screening: No deficits noted. Tuberculosis screening: No symptoms or risk factors identified. Assessment: 10:49 General: Appears in no apparent distress. comfortable, Behavior is calm, cooperative. vg1 Pain: Complains of pain in left upper quadrant and left lower quadrant Pain currently is 5 out of 10 on a pain scale. Neuro: Level of Consciousness is awake, alert, obeys commands, Oriented to person, place, time, situation. Cardiovascular: Patient's skin is warm and dry. Respiratory: Airway is patent Respiratory effort is even, unlabored. GI: Abdomen is round non-distended, obese, Bowel sounds present X 4 quads. hypoactive in right upper quadrant, left upper quadrant, right lower quadrant and left lower quadrant Abdomen is tender to palpation in right upper quadrant and left lower quadrant Reports constipation, 2.5 weeks and diarrhea x 1 week. : No signs and/or symptoms were reported regarding the genitourinary system. Derm: Skin is pink, warm \\T\\ dry. Musculoskeletal: Circulation, motion, and sensation intact. 10:52 Reassessment: Pt completed oral contrast, Ksenia in CT notified. vg1 11:08 Reassessment: Patient appears in no apparent distress at this time. No changes from vg1 previously documented assessment. Patient and/or family updated on plan of care and expected duration. Pain level reassessed. Patient is alert, oriented x 3, equal unlabored respirations, skin warm/dry/pink. 12:40 Reassessment: Patient appears in no apparent distress at this time. No changes from iw previously documented assessment. Patient and/or family updated on plan of care and expected duration. Pain level reassessed. Patient is alert, oriented x 3, equal unlabored respirations, skin warm/dry/pink. 13:40 Reassessment: Patient appears in no apparent distress at this time. Patient and/or vg1 family updated on plan of care and expected duration. Pain level reassessed. Patient is alert, oriented x 3, equal unlabored respirations, skin warm/dry/pink. Pt stated had a 'small' BM and stated "I saw the grapefruit from Monday, just wanted to let you know" Provider notified. 14:47 Reassessment: Patient appears in no apparent distress at this time. Patient and/or vg1 family updated on plan of care and expected duration. Pain level reassessed. Patient is alert, oriented x 3, equal unlabored respirations, skin warm/dry/pink. Patient states feeling better. Vital Signs: 10:31 BP 154 / 82; Pulse 99; Resp 16; Temp 98; Pulse Ox 99% on R/A; Weight 120.2 kg; Height 5 iw ft. 7 in. ; Pain 5/10; 11:08 BP 147 / 92; Pulse 78; Resp 20; Pulse Ox 96% on R/A; vg1 10:31 Body Mass Index 41.50 (120.20 kg, 170.18 cm) iw 10:31 Pain Scale: Adult iw ED Course: 09:56 Patient arrived in ED. mg5 09:57 Franca Lemus FNP-C is PHCP. kb 09:57 Enio Lawrence MD is Attending Physician. kb 10:27 Agueda Mari, RN is Primary Nurse. vg1 10:32 Triage completed. iw 10:33 Arm band placed on. iw 10:49 Patient has correct armband on for positive identification. Bed in low position. Call vg1 light in reach. Side rails up X 1. 10:49 Inserted saline lock: 22 gauge in right forearm, using aseptic technique. ,using vg1 aseptic technique. Completed by [employer]. 13:05 Abdomen In Process Unspecified. EDMS 14:47 No provider procedures requiring assistance completed. IV discontinued, intact, vg1 bleeding controlled, No redness/swelling at site. Pressure dressing applied. Administered Medications: 10:45 Drug: NS 0.9% IV 1000 ml Route: IV; Rate: 1 bolus; Site: right antecubital; db 12:00 Follow up: IV Status: Completed infusion; IV Intake: 1000ml vg1 Medication: 10:49 VIS not applicable for this client. vg1 Intake: 12:00 IV: 1000ml; Total: 1000ml. vg1 Outcome: 14:20 Discharge ordered by . kb 14:47 Discharged to home ambulatory. vg1 14:47 Condition: good 14:47 Discharge instructions given to patient, Instructed on discharge instructions, Demonstrated understanding of instructions, follow-up care. 14:48 Patient left the ED. vg1 Signatures: Dispatcher [employer] EDMS Franca Lemus, [employer]-Mily Plunkett RN Agueda Reyonlds RN RN vg1 Ingrid Dodson, RN RN Anita Elias mg5 Corrections: (The following items were deleted from the chart) 10:32 10:31 BP 154 / 82; Pulse 99bpm; Resp 16bpm; Pulse Ox 99% RA; Temp 98F; 120.2 kg; Height iw 5 ft. 7 in.; BMI: 41.5; iw 10:51 10:49 GI: Abdomen is round non-distended, obese, Bowel sounds present X 4 quads. vg1 hypoactive in right upper quadrant, left upper quadrant, right lower quadrant and left lower quadrant Abdomen is tender to palpation in right upper quadrant and left lower quadrant vg1
--- NOTE | 2023-03-19 14:21 | EDPHYS ---
Physician Documentation [facility] Name: Ankita Todd Age: 62 yrs Sex: Female : 1960 Arrival Date: 03/19/2023 Time: 09:50 Bed 7 Private MD: ED Physician Enio Lawrence HPI: 03/19 10:38 This 62 yrs old Female presents to ER via Ambulatory with complaints of Constipation - kb 2.5 WEEKS, Abdominal Pain. 10:38 The patient presents with abdominal pain that is diffuse. Onset: The symptoms/episode kb began/occurred 2 week(s) ago. The symptoms do not radiate. Associated signs and symptoms: Pertinent positives: constipation, Pertinent negatives: nausea and vomiting, fever. The symptoms are described as constant. Modifying factors: The symptoms are alleviated by nothing, the symptoms are aggravated by nothing. Severity of pain: At its worst the pain was moderate in the emergency department the pain is unchanged. The patient has not experienced similar symptoms in the past. The patient has not recently seen a physician. Pt reports constipation and abd pain for 2.5 weeks. States she had diarrhea for 2 weeks prior to that. Pt denies fever, nausea, vomiting. Historical: - Allergies: 10:32 Benadryl; iw 10:32 Diflucan; iw 10:32 Morphine (Doesn't Work); iw 10:32 Nitrofurantoin Macrocrystal; iw 10:32 oral antifungals; iw 10:32 tramadol; iw - PMHx: 10:32 Anxiety; Colitis; Diabetes - NIDDM; High Cholesterol; Hypertension; kidney stent; Sleep iw Apnea; - Immunization history:: Adult Immunizations. - Social history:: Smoking status: Patient reports the use of cigarette tobacco products. ROS: 10:37 Constitutional: Negative for fever, chills, and weight loss. kb 10:37 Abdomen/GI: Positive for abdominal pain, constipation, Negative for nausea and vomiting. 10:37 All other systems are negative. Exam: 10:37 Constitutional: This is a well developed, well nourished patient who is awake, alert, kb and in no acute distress. Head/Face: Normocephalic, atraumatic. ENT: Moist Mucous membranes Cardiovascular: Regular rate and rhythm with a normal S1 and S2. No gallops, murmurs, or rubs. No pulse deficits. Respiratory: Respirations even and unlabored. No increased work of breathing. Talking in full sentences Skin: Warm, dry with normal turgor. Normal color. MS/ Extremity: Pulses equal, no cyanosis. Neurovascular intact. Full, normal range of motion. Neuro: Awake and alert, GCS 15, oriented to person, place, time, and situation. Moves all extremities. Normal gait. 10:37 Abdomen/GI: Inspection: abdomen appears normal, Bowel sounds: normal, in all quadrants, Palpation: soft, in all quadrants, moderate abdominal tenderness, in the right upper quadrant and left upper quadrant. Vital Signs: 10:31 BP 154 / 82; Pulse 99; Resp 16; Temp 98; Pulse Ox 99% on R/A; Weight 120.2 kg; Height 5 iw ft. 7 in. ; Pain 5/10; 11:08 BP 147 / 92; Pulse 78; Resp 20; Pulse Ox 96% on R/A; vg1 10:31 Body Mass Index 41.50 (120.20 kg, 170.18 cm) iw 10:31 Pain Scale: Adult iw MDM: 10:03 Patient medically screened. kb 10:39 Differential diagnosis: bowel obstruction, gastritis, non-specific abd pain, kb constipation. Data reviewed: vital signs, nurses notes. 14:20 Counseling: I had a detailed discussion with the patient and/or guardian regarding: the kb historical points, exam findings, and any diagnostic results supporting the discharge/admit diagnosis, lab results, radiology results, the need for outpatient follow up, a family practitioner, to return to the emergency department if symptoms worsen or persist or if there are any questions or concerns that arise at home. 03/19 10:16 Order name: CBC with Diff; Complete Time: 10:55 kb 03/19 10:16 Order name: CMP; Complete Time: 11:17 kb 03/19 10:16 Order name: Lipase; Complete Time: 11:17 kb 03/19 12:27 Order name: Abdomen ; Complete Time: 13:17 EDMS 03/19 10:16 Order name: IV Saline Lock; Complete Time: 10:45 kb 03/19 10:16 Order name: Labs collected and sent; Complete Time: 10:49 kb Administered Medications: 10:45 Drug: NS 0.9% IV 1000 ml Route: IV; Rate: 1 bolus; Site: right antecubital; db 12:00 Follow up: IV Status: Completed infusion; IV Intake: 1000ml vg1 Disposition: 19:00 Co-signature as Attending Physician, Enio Lawrence MD I reviewed the patient's care rt provided by the Advanced Practice Provider and agree with the diagnosis and treatment plan. Disposition Summary: 03/19/23 14:20 Discharge Ordered Location: Home kb Condition: Stable kb Diagnosis - Constipation kb Followup: kb - With: Emergency Department - When: As needed - Reason: Worsening of condition Followup: kb - With: Private Physician - When: 2 - 3 days - Reason: Recheck today's complaints, Continuance of care, Re-evaluation by your physician Discharge Instructions: - Discharge Summary Sheet kb - Constipation, Adult, [id number] kb Forms: - Medication Reconciliation Form kb - Thank You Letter kb - Antibiotic Education kb - Prescription Opioid Use kb - Patient Portal Instructions kb Signatures: Dispatcher [employer] EDFranca Guevara, RODOLFO-C HOTEL CONCIERGE-Carlosb Mily De La Cruz RN RN iw Ingrid Dodson, RN RN Enio Pinzon MD MD rt Agueda Mari RN vg1 Corrections: (The following items were deleted from the chart) 12:27 10:17 Abdomen Pelvis W Con+CT.RAD.BRZ ordered. EDNC EDMS
[2023-03-19 15:06] VITALS: TEMP 98
[2023-03-19 15:07] VITALS: BP 147/92; O2SAT 96
== END 2023-03-19 14:48 | disposition home or self-care (01) ==
LOC: ER 09:50
DX: K59.00 Constipation, unspecified (principal); Z72.0 Tobacco use; Z88.3 Allergy status to other anti-infective agents; Z88.5 Allergy status to narcotic agent; Z88.8 Allergy status to other drugs, medicaments and biological substances
CPT/HCPCS: 85025; 36415; 83690; 80053; 74176; 96360; 99284; J7030